=== PATIENT | female | born 1960 | race Caucasian/White ===

== ENCOUNTER 2016-03-16 21:14 | Emergency (ER) | payer OTHER ==
[~2016-03-16] VITALS: Ht 157.5 cm; Wt 168.9 kg
[~2016-03-16 21:14] MED LIST: AMLO5TAB2 PO; ASPI-110 PO; ATEN50TA PO; ATOR1TAB18 PO; BENA20TA PO; CALC0.5C6 PO; CALC668T PO; CALCTAB75 PO; FLUO1TAB3 PO; HYDR-3583 PO; LANTUS2P SQ; LEVO-171 PO; NOVOLOGP2 SQ; TIZA4TAB PO
[2016-03-16 21:18] VITALS: BP 121/56; PULSE 62; RESP 20; TEMP 97.9; O2SAT 99
--- NOTE | 2016-03-16 21:56 | PD ---
HPI Chief Complaint: Abnormal Results Time Seen by Provider: 21:26 Travel History International Travel<30 days: No Contact w/Intl Traveler<30days: No Traveled to known affect area: No History of Present Illness HPI Patient is a 55-year-old female with history of end-stage renal disease on HD, DM, hyperlipidemia, htn, was sent to ER by the [facility] dialysis for blood transfusion. Patient's hemoglobin today at dialysis was 6.4, patient reports that her hemoglobin has been dropping and she is unsure why her hemoglobin is so low. Patient reports that she has been anemic all her life, reports that she cannot tolerate by mouth iron, patient cannot tell me if she is iron deficient anemia. Patient denies having any dark stools. Pt reports that she has an appointment with car conditioner on March 27, 2016 for workup of her anemia - patient reports increased frustration as she cannot get an appointment earlier. Patient reports that she has been anemic all her life, reports that she has never had a blood transfusion in the past. Patient reports that for the past few weeks, she has been increasingly tired. Patient denies chest pain or shortness of breath at this time. Patient's crane operator cab is Dr. Fiona Jimenez Pt receives dialysis , and saturdays via her permacath. Patient reports that she did receive dialysis today, patient here for blood transfusion. Hemoglobin on 03/16/16: 6.2 Hemoglobin on 03/02/16: 7.5 Hemoglobin on 16: 7.3 Hemoglobin on 01/27/2016: 7.5 Hemoglobin on 01/23/2016: 8.3 Hemoglobin on 01/17/14: 10.4 PFSH Past Medical History Arthritis: Yes Autoimmune Disease: No Heart Rhythm Problems: No Cancer: No Cardiac Catheterization: Yes Cardiovascular Problems: Yes (STENT) High Cholesterol: Yes Chemotherapy: No Chest Pain: Yes Congestive Heart Failure: Yes Diabetes: Yes Diminished Hearing: No Endocrine: Yes Gastrointestinal Disorders: No (LAP BAND) Genitourinary: No Hepatitis: No Hiatal Hernia: No Hypertension: Yes Immune Disorder: No Implanted Vascular Access Dvce: Yes Musculoskeletal: Yes (SPINAL STENOSIS; ARTHRITIS) Neurologic: No Psychiatric: No Reproductive: No Respiratory: Yes ("SLIGHT" SLEEP APNEA - NO CPAP ) Immunizations Current: No Radiation Therapy: No Renal Failure: Yes (STAGE 3) Sickle Cell Disease: No Sleep Apnea: Yes Thyroid Disease: Yes (HYPOTHYROIDISM) Triglycerides - High: Yes Menopausal: Yes Past Surgical History Abdominal Surgery: Yes (LAP BAND 2004; LAP JOAN) AICD: No Body Medical Devices: LAB BAND; CARDIAC STENT X 1, DIALYSIS CATHETER RIGHT Cardiac Surgery: No Section: Yes Cholecystectomy: Yes (1996) Coronary Stent: Yes (x1 June 2012) Ear Surgery: No Endocrine Surgery: No Eye Surgery: No Genitourinary Surgery: No Gynecologic Surgery: Yes (C SECTION 1992; D&C) Joint Replacement: No Oral Surgery: Yes (T&A) Pacemaker: No Thoracic Surgery: No Tonsillectomy: Yes Other Surgery: Yes (LAP BAND) Social History Alcohol Use: No Tobacco Use: No Substance Use: No Allergies-Medications (Allergen,Severity, Reaction): Coded Allergies: Biaxin (Verified Allergy, Severe, swelling of face, 03/16/16) Iron (Verified Adverse Reaction, Severe, Constipation, 03/16/16) Reported Meds & Prescriptions Reported Meds & Active Scripts Active Reported Lortab (Hydrocodone-Acetaminophen) 10-325 Mg Tab 1 Tab PO Q6H PRN Slow Fe ER (Ferrous Sulfate) 142 Mg Tab 324 Mg PO DAILY Meclizine (Meclizine HCl) 25 Mg Tab 25 Mg PO TID PRN Calcium Citrate +D (Calcium Citrate-Vitamin D) 315-250 Mg-Unit Tab 1 Tab PO BID Aspirin 81 (Aspirin) 81 Mg Tabdr 81 Mg PO DAILY Tizanidine (Tizanidine HCl) 4 Mg Tab 4 Mg PO TID PRN Calcium Acetate 668 Mg Tab 2 Tab PO WITH MEALS Lantus Inj (Insulin Glargine) 1,000 Unit/10 Ml Vial 30-40 Units SQ BID Novolog Inj (Insulin Aspart) 1,000 Unit/10 Ml Vial 20-35 Units SQ TIDAC Sliding Scale as directed. Levothyroxine (Levothyroxine Sodium) 300 Mcg Tab 300 Mcg PO DAILY Fluoxetine (Fluoxetine HCl) 20 Mg Tab 20 Mg PO DAILY Calcitriol 0.5 Mcg Cap 0.5 Mcg PO DAILY Benazepril (Benazepril HCl) 20 Mg Tab 20 Mg PO BID Atorvastatin (Atorvastatin Calcium) 80 Mg Tab 80 Mg PO HS Atenolol 50 Mg Tab 50 Mg PO BID Amlodipine (Amlodipine Besylate) 5 Mg Tab 5 Mg PO BID Review of Systems General / Constitutional: No: Fever Eyes: No: Visual changes HENT: No: Headaches Cardiovascular: No: Chest Pain or Discomfort Respiratory: No: Shortness of Breath Gastrointestinal: No: Abdominal Pain Genitourinary: No: Dysuria Musculoskeletal: No: Pain Skin: No Rash Neurologic: Positive: Weakness Psychiatric: No: Depression Endocrine: No: Polydipsia Hematologic/Lymphatic: No: Easy Bruising Physical Exam Narrative GENERAL: Morbidly obese female, nontoxic, no acute distress SKIN: Warm and dry. HEAD: Atraumatic. Normocephalic. EYES: Pupils equal and round. No scleral icterus. No injection or drainage. ENT: No nasal bleeding or discharge. Mucous membranes pink and moist. NECK: Trachea midline. No JVD. CARDIOVASCULAR: Regular rate and rhythm. No murmur appreciated. Patient with right-sided permacath in place RESPIRATORY: No accessory muscle use. Clear to auscultation. Breath sounds equal bilaterally. GASTROINTESTINAL: Abdomen soft, non-tender, nondistended. Hepatic and splenic margins not palpable. MUSCULOSKELETAL: No obvious deformities. No clubbing. No cyanosis. No edema. NEUROLOGICAL: Awake and alert. No obvious cranial nerve deficits. Motor grossly within normal limits. Normal speech. PSYCHIATRIC: Appropriate mood and affect; insight and judgment normal. Data Data Last Documented VS Vital Signs Date Time Temp Pulse Resp B/P Pulse Ox O2 Delivery O2 Flow Rate FiO2 03/16/16 22:56 22 100 Room Air 03/16/16 21:18 97.9 62 121/56 Orders Complete Blood Count With Diff (03/16/16 21:41) Prothrombin Time / Inr (Pt) (03/16/16 21:41) Act Partial Throm Time (Ptt) (03/16/16 21:41) Type And Screen (03/16/16 21:41) Iv Access Insert/Monitor (03/16/16 21:41) Ecg Monitoring (03/16/16 21:41) Oximetry (03/16/16 21:41) Vitamin B12 (03/16/16 21:45) Folate, Serum (03/16/16 21:45) Ferritin (03/16/16 21:45) Iron/Tibc Profile (03/16/16 21:45) Retic Count (03/16/16 21:45) Ldh Serum (03/16/16 21:45) Basic Metabolic Panel (Bmp) (03/16/16 22:30) Red Blood Cells (Rbc) (03/16/16 23:20) Blood Product Administration .UPON TRANSFUSION (03/16/16 23:20) Labs Laboratory Tests Test 03/16/16 22:30 White Blood Count 11.8 TH/MM3 Red Blood Count 2.80 MIL/MM3 Hemoglobin 6.3 GM/DL Hematocrit 19.9 % Mean Corpuscular Volume 71.2 FL Mean Corpuscular Hemoglobin 22.6 PG Mean Corpuscular Hemoglobin 31.8 % Concent Red Cell Distribution Width 18.8 % Platelet Count 452 TH/MM3 Mean Platelet Volume 7.4 FL Neutrophils (%) (Auto) 83.9 % Lymphocytes (%) (Auto) 9.3 % Monocytes (%) (Auto) 3.7 % Eosinophils (%) (Auto) 2.2 % Basophils (%) (Auto) 0.9 % Neutrophils # (Auto) 9.9 TH/MM3 Lymphocytes # (Auto) 1.1 TH/MM3 Monocytes # (Auto) 0.4 TH/MM3 Eosinophils # (Auto) 0.3 TH/MM3 Basophils # (Auto) 0.1 TH/MM3 CBC Comment AUTO DIFF Differential Comment AUTO DIFF CONFIRMED Platelet Estimate HIGH Platelet Morphology Comment NORMAL Basophilic Stippling FAINT Acanthocytes OCC Reticulocyte Count 2.0 % Absolute Reticulocyte Count 55.7 MIL/L Prothrombin Time 11.8 SEC Prothromb Time International 1.1 RATIO Ratio Activated Partial 32.2 SEC Thromboplast Time Sodium Level 136 MEQ/L Potassium Level 3.6 MEQ/L Chloride Level 98 MEQ/L Carbon Dioxide Level 29.7 MEQ/L Anion Gap 8 MEQ/L Blood Urea Nitrogen 20 MG/DL Creatinine 3.32 MG/DL Estimat Glomerular Filtration 14 ML/MIN Rate Random Glucose 188 MG/DL Calcium Level 9.0 MG/DL Iron Level 34 MCG/DL Total Iron Binding Capacity 297 MCG/DL Percent Iron Saturation 11.5 % Ferritin 185 NG/ML Lactate Dehydrogenase 245 U/L Vitamin B12 Level 571 PG/ML Folate 7.2 NG/ML Blood Type O POSITIVE Antibody Screen NEGATIVE MDM Medical Decision Making Medical Screen Exam Complete: Yes Emergency Medical Condition: Yes Interpretation(s) Vital Signs Date Time Temp Pulse Resp B/P Pulse Ox O2 Delivery O2 Flow Rate FiO2 03/16/16 22:56 22 100 Room Air 03/16/16 21:18 97.9 62 20 121/56 99 Room Air Laboratory Tests Test 03/16/16 22:30 White Blood Count 11.8 TH/MM3 (4.0-11.0) Red Blood Count 2.80 MIL/MM3 (4.00-5.30) Hemoglobin 6.3 GM/DL (11.6-15.3) Hematocrit 19.9 % (35.0-46.0) Mean Corpuscular Volume 71.2 FL (80.0-100.0) Mean Corpuscular Hemoglobin 22.6 PG (27.0-34.0) Mean Corpuscular Hemoglobin 31.8 % Concent (32.0-36.0) Red Cell Distribution Width 18.8 % (11.6-17.2) Platelet Count 452 TH/MM3 (150-450) Mean Platelet Volume 7.4 FL (7.0-11.0) Neutrophils (%) (Auto) 83.9 % (16.0-70.0) Lymphocytes (%) (Auto) 9.3 % (9.0-44.0) Monocytes (%) (Auto) 3.7 % (0.0-8.0) Eosinophils (%) (Auto) 2.2 % (0.0-4.0) Basophils (%) (Auto) 0.9 % (0.0-2.0) Neutrophils # (Auto) 9.9 TH/MM3 (1.8-7.7) Lymphocytes # (Auto) 1.1 TH/MM3 (1.0-4.8) Monocytes # (Auto) 0.4 TH/MM3 (0-0.9) Eosinophils # (Auto) 0.3 TH/MM3 (0-0.4) Basophils # (Auto) 0.1 TH/MM3 (0-0.2) CBC Comment AUTO DIFF Reticulocyte Count 2.0 % (0.4-3.0) Absolute Reticulocyte Count 55.7 MIL/L (20.0-150.0) Differential Diagnosis symptomatic anemia, gi bleed Narrative Course 55-year-old female with end-stage renal disease on hemodialysis, presents to emergency room with complaints of low hemoglobin. Patient was sent to the emergency room for blood transfusion as hemoglobin 6.4. Patient reports that her blood count has been persistently low and she is waiting for hematology consult. Patient was sent here by her crane operator cab for blood products. Patient with no other complaints. Anemia labs drawn, CBC, BMP drawn as well, patient was typed and screened. Plan to transfuse if hemoglobin is 6.4 HGB 6.3 will transfuse and discharge patient after blood transfusion, patient is scheduled to see a car conditioner on March 26, she will receive formal workup there. Patient will bring her discharge paperwork as well as a lab work too her appointment for follow-up (please note: patient refuses rectal exam) - pt reports that 3 years ago, she had a colonscopy and egd for workup of anemia and reports "they didn't find anything" Diagnosis Primary Impression: Symptomatic anemia Patient Instructions: General Instructions Additional Instructions: please provide patient with copy of her labs at discharge Please follow-up with your crane operator cab as well as car conditioner as outpatient Return to ER as needed Please bring a copy of your lab work to your doctor's office for follow up on all studies and findings from today Disposition: 01 DISCHARGE HOME Condition: Stable Lillian Wright DO Mar 16, 2016 21:56
[2016-03-16] MEDS ORDERED: SLOW142T PO (21:58)
[2016-03-16] MEDS ORDERED: MECL-62 PO (21:58)
[2016-03-16 22:56] VITALS: RESP 22; O2SAT 100
[2016-03-16 23:04] LABS: AUTOMATED NEUTROPHIL # 9.9 TH/MM3 (1.8-7.7); BASOPHIL # 0.1 TH/MM3 (0-0.2); BASOPHIL % 0.9 % (0.0-2.0); EOSINOPHIL # 0.3 TH/MM3 (0-0.4); EOSINOPHIL % 2.2 % (0.0-4.0); LYMPH % 9.3 % (9.0-44.0); LYMPHOCYTE # 1.1 TH/MM3 (1.0-4.8); MEAN CELL VOLUME 71.2 FL (80.0-100.0); MEAN CORPUSCULAR HEMOGLOBIN 22.6 PG (27.0-34.0); MEAN CORPUSCULAR HGB CONC 31.8 % (32.0-36.0); MONO % 3.7 % (0.0-8.0); NEUT % 83.9 % (16.0-70.0); PLATELET COUNT 452 TH/MM3 (150-450); RED CELL DISTRIBUTION WIDTH 18.8 % (11.6-17.2); WHITE BLOOD COUNT 11.8 TH/MM3 (4.0-11.0)
[2016-03-16 23:18] LABS: HEMATOCRIT 19.9 % (35.0-46.0); HEMO FLAGS AUTO DIFF
[2016-03-16 23:20] LABS: REVIEW FLAG FINAL
[2016-03-16 23:24] LABS: APTT (PATIENT) 32.2 SEC (24.3-30.1); INTERNATIONAL NORMALIZED RATIO 1.1 RATIO; PROTHROMBIN TIME - PATIENT 11.8 SEC (9.8-11.6)
[2016-03-16 23:50] LABS: ANION GAP 8 MEQ/L (5-15); BICARBONATE 29.7 MEQ/L (21.0-32.0); BLOOD UREA NITROGEN 20 MG/DL (7-18); CHLORIDE 98 MEQ/L (98-107); FERRITIN 185 NG/ML (8-252); GLOMERULAR FILTRATION RATE 14 ML/MIN (>89); LDH SERUM 245 U/L (84-246); POTASSIUM 3.6 MEQ/L (3.5-5.1); SODIUM (NA) 136 MEQ/L (136-145); TRANSFERRIN IRON PROFILE 212 MG/DL (200-360)
[2016-03-16 23:56] LABS: ACANTHOCYTES OCC (NORMAL); PLATELET ESTIMATE SMEAR HIGH (NORMAL); PLATELET MORPHOLOGY NORMAL (NORMAL); SCAN/DIFF AUTO DIFF CONFIRMED
[2016-03-16] MEDS ORDERED: HYDR-3535 PO (23:58)
[2016-03-17 01:35] VITALS: BP 141/60; PULSE 56; RESP 20; TEMP 98.3; O2SAT 99
[2016-03-17 01:50] VITALS: BP 136/62; PULSE 55; RESP 20; O2SAT 99
[2016-03-17 03:31] VITALS: BP 135/62; PULSE 58; RESP 20; O2SAT 98
[2016-04-05] MEDS ORDERED: EPOG1000 (09:23)
[2016-04-05] MEDS ORDERED: DESI40OI2 TOP (09:52)
[2016-04-05] MEDS ORDERED: DAKINSHST TOPICAL (09:52)
[2016-04-10] MEDS ORDERED: AMPI500C8 PO (11:22)
[2016-04-10] MEDS ORDERED: LEVA750T PO (11:23)
[2016-04-12] MEDS ORDERED: [UNRECOGNIZED DRUG - CODE] TOPICAL (10:13)
[2016-04-12] MEDS ORDERED: GENT0.1C TOPICAL (10:13)
[2016-04-12] MEDS ORDERED: ZINC1CRE3 TOPICAL (10:19)
[2016-04-26] MEDS ORDERED: DAKINSFST TOPICAL (10:10)
[2016-05-10] MEDS ORDERED: GABA100C4 PO (09:45)
[2016-05-10] MEDS ORDERED: DAKINSFST TOPICAL (10:39)
[2016-05-10] MEDS ORDERED: [UNRECOGNIZED DRUG - OTHER] TOP (10:40)
== END 2016-03-17 04:24 | disposition home or self-care (01) ==
LOC: NEPE 21:14
DX: D64.9 Anemia, unspecified (principal); I12.0 Hypertensive chronic kidney disease with stage 5 chronic kidney disease or end stage renal disease; Z99.2 Dependence on renal dialysis; N18.6 End stage renal disease; I50.9 Heart failure, unspecified; E03.9 Hypothyroidism, unspecified; E11.9 Type 2 diabetes mellitus without complications; Z79.4 Long term (current) use of insulin
CPT/HCPCS: 36430; 80048; 82607; 82728; 82746; 83540; 83550; 83615; 85025; 85044; 85610; 85730; 86850; 86900; 86901; 86920; 86922; 99284; P9016

== ENCOUNTER 2016-04-18 10:49 | Observation (INO) | payer MEDICARE, OTHER ==
[~2016-04-18] VITALS: Ht 160 cm; Wt 120.0 kg
[~2016-04-18 10:49] MED LIST changes: +AMPI500C8 PO; -CALC668T PO; -CALCTAB75 PO; +DAKINSHST TOPICAL; +DESI40OI2 TOP; +EPOG1000; +GENT0.1C TOPICAL; +HYDR-3535 PO; -HYDR-3583 PO; +LEVA750T PO; +ZINC1CRE3 TOPICAL; +[UNRECOGNIZED DRUG - CODE] TOPICAL
[2016-04-18 10:55] VITALS: BP 149/65; PULSE 66; RESP 25; TEMP 98.4; O2SAT 98
[2016-04-18 11:00] VITALS: O2SAT 99
--- NOTE | 2016-04-18 11:11 | PD ---
HPI . Shortness of breath Chief Complaint: Respiratory Symptoms Time Seen by Provider: 10:55 Travel History International Travel<30 days: No Contact w/Intl Traveler<30days: No History of Present Illness HPI The patient presents with a several day history of shortness of breath. She attributes her symptoms to a "cold." She reports associated fever, cough, sputum production and nausea with dry heaves. However, she has missed her last 5 dialysis appointments. She states that she has not been to dialysis because she was having such difficulty breathing. In addition to her respiratory complaints, the patient has a wound on her abdominal wall that is being cared for by the wound care clinic. She is currently on Levaquin for this. She states that they are reluctant to do a debridement my because her hemoglobin is less than 7. She reports that she is unable to tolerate iron. PFSH Past Medical History Arthritis: Yes Autoimmune Disease: No Heart Rhythm Problems: No Cancer: No Cardiac Catheterization: Yes Cardiovascular Problems: Yes (STENT) High Cholesterol: Yes Chemotherapy: No Chest Pain: Yes Congestive Heart Failure: Yes Diabetes: Yes Dialysis: Yes (,,) Diminished Hearing: No Endocrine: Yes Genitourinary: No Hepatitis: No Hiatal Hernia: No Hypertension: Yes Immune Disorder: No Implanted Vascular Access Dvce: Yes Musculoskeletal: Yes (SPINAL STENOSIS; ARTHRITIS) Neurologic: No Psychiatric: No Reproductive: No Respiratory: Yes ("SLIGHT" SLEEP APNEA - NO CPAP ) Radiation Therapy: No Renal Failure: Yes (HD) Sickle Cell Disease: No Sleep Apnea: Yes Thyroid Disease: Yes (HYPOTHYROIDISM) Triglycerides - High: Yes Menopausal: Yes : 1 Para: 1 Past Surgical History Abdominal Surgery: Yes (LAP BAND 2004; LAP JOAN) AICD: No Body Medical Devices: LAB BAND; CARDIAC STENT X 1, DIALYSIS CATHETER RIGHT Cardiac Surgery: No Section: Yes (X 1) Cholecystectomy: Yes (1996) Coronary Stent: Yes (x1 June 2012) Ear Surgery: No Endocrine Surgery: No Eye Surgery: No Genitourinary Surgery: No Gynecologic Surgery: Yes (C SECTION 1992; D&C) Joint Replacement: No Neurologic Surgery: No Oral Surgery: Yes (T&A) Pacemaker: No Thoracic Surgery: No Tonsillectomy: Yes Other Surgery: Yes (LAP BAND, VAS CATH) Social History Alcohol Use: No Tobacco Use: No Substance Use: No Allergies-Medications (Allergen,Severity, Reaction): Coded Allergies: Biaxin (Verified Allergy, Severe, swelling of face, 04/12/16) Iron (Verified Adverse Reaction, Severe, Constipation, 04/12/16) Reported Meds & Prescriptions Reported Meds & Active Scripts Active Levaquin (Levofloxacin) 750 Mg Tab 750 Mg PO Q48H Ampicillin 500 Mg Cap 500 Mg PO QID Reported Meclizine (Meclizine HCl) 25 Mg Tab 25 Mg PO TID PRN Lortab (Hydrocodone-Acetaminophen) 10-325 Mg Tab 1 Tab PO Q6H PRN Aspirin 81 (Aspirin) 81 Mg Tabdr 81 Mg PO DAILY Tizanidine (Tizanidine HCl) 4 Mg Tab 4 Mg PO TID PRN Novolog Inj (Insulin Aspart) 1,000 Unit/10 Ml Vial 30 Units SQ TID Sliding Scale as directed. Levothyroxine (Levothyroxine Sodium) 300 Mcg Tab 300 Mcg PO DAILY Fluoxetine (Fluoxetine HCl) 20 Mg Tab 20 Mg PO DAILY Calcitriol 0.5 Mcg Cap 0.5 Mcg PO DAILY Benazepril (Benazepril HCl) 20 Mg Tab 20 Mg PO BID Atorvastatin (Atorvastatin Calcium) 80 Mg Tab 80 Mg PO HS Atenolol 50 Mg Tab 50 Mg PO BID Amlodipine (Amlodipine Besylate) 5 Mg Tab 5 Mg PO BID Review of Systems Except as stated in HPI: all other systems reviewed are Neg General / Constitutional: Positive: Fever, Chills Respiratory: Positive: Cough, Shortness of Breath, Other (purulent sputum) Skin: Positive Lesions Physical Exam Narrative GENERAL: This is a hugely obese woman who is unable to get into the bed because of her size. She is sitting in a chair. SKIN: Warm and dry. I am unable to visualize her abdominal wall wound because it is covered up. Her legs have thickened, scaly skin. HEAD: Atraumatic. Normocephalic. EYES: Pupils equal and round. ENT: No nasal bleeding or discharge. Mucous membranes pink and moist. NECK: Trachea midline. Neck is supple. CARDIOVASCULAR: Regular rate and rhythm. Heart sounds are normal. RESPIRATORY: No accessory muscle use. Her lungs sound clear with good air movement throughout. GASTROINTESTINAL: Hugely obese. Unable to further evaluate. MUSCULOSKELETAL: No obvious deformities. Her arms and legs are huge. She has skin changes consistent with chronic peripheral vascular disease. NEUROLOGICAL: Awake and alert. No obvious cranial nerve deficits. Motor grossly within normal limits. Normal speech. PSYCHIATRIC: Appropriate mood and affect; insight and judgment are poor--she has skipped dialysis the last 5 times because of shortness of breath. Data Data Last Documented VS Vital Signs Date Time Temp Pulse Resp B/P Pulse Ox O2 Delivery O2 Flow Rate FiO2 04/18/16 11:00 99 Room Air 04/18/16 11:00 25 04/18/16 10:55 98.4 66 149/65 Orders Complete Blood Count With Diff (04/18/16 11:02) Comprehensive Metabolic Panel (04/18/16 11:02) Ckmb (Isoenzyme) Profile (04/18/16 11:02) Troponin I (04/18/16 11:02) Iv Access Insert/Monitor (04/18/16 11:02) Electrocardiogram (04/18/16 11:02) Ecg Monitoring (04/18/16 11:02) Oximetry (04/18/16 11:02) Oxygen Administration (04/18/16 11:02) Chest, Single Ap (04/18/16 11:02) Sodium Chloride 0.9% Flush (Ns Flush) (04/18/16 11:15) Type And Screen (04/18/16 13:02) Red Blood Cells (Rbc) (04/18/16 13:02) Blood Product Administration .UPON TRANSFUSION (04/18/16 13:02) Sodium Chlor 0.9% 250 Ml Inj (Ns 250 Ml (04/18/16 13:15) Diphenhydramine (Benadryl) (04/18/16 13:15) Acetaminophen (Tylenol) (04/18/16 13:15) Admit To Inpatient (04/18/16 ) Code Status (04/18/16 13:24) Vital Signs (Adult) Q4H (04/18/16 13:24) Activity Oob With Assistance (04/18/16 13:24) Diet 1800 Ada Cons Carb (04/18/16 Lunch) Sodium Chloride 0.9% Flush (Ns Flush) (04/18/16 13:30) Sodium Chloride 0.9% Flush (Ns Flush) (04/18/16 21:00) Acetaminophen (Tylenol) (04/18/16 13:30) Ondansetron Inj (Zofran Inj) (04/18/16 13:30) Comprehensive Metabolic Panel (04/19/16 06:00) Complete Blood Count With Diff (04/19/16 06:00) Scd Bilateral/Knee High KAROLINA.BID (04/18/16 13:24) Yonathan Bilateral/Knee High KAROLINA.QSHIFT (04/18/16 13:24) Acetaminophen (Tylenol) (04/18/16 13:30) Naloxone Inj (Narcan Inj) (04/18/16 13:30) Inpatient Certification (04/18/16 ) Bedside Glucose KAROLINA.AC&HS (04/18/16 13:24) ^ Blood Glucose Goal (Criteria (04/18/16 13:24) ^ Hypoglycemia 51 - 69 Mg/Dl (04/18/16 13:24) ^ Hypoglycemia 50 Mg/Dl Or < (04/18/16 13:24) ^ Notify Dr: Other (04/18/16 13:24) Dextrose 50% In Vandana (Vial) Inj (D50w (Vi (04/18/16 13:30) Glucagon Inj (Glucagon Inj) (04/18/16 13:30) Insulin Aspart Supplemtl Scale (Novolog (04/18/16 16:00) Consult Nephrology (04/18/16 ) Admit Order (Ed Use Only) (04/18/16 13:26) Labs Laboratory Tests Test 04/18/16 11:25 White Blood Count 15.5 TH/MM3 Red Blood Count 2.77 MIL/MM3 Hemoglobin 6.0 GM/DL Hematocrit 19.9 % Mean Corpuscular Volume 71.6 FL Mean Corpuscular Hemoglobin 21.6 PG Mean Corpuscular Hemoglobin 30.1 % Concent Red Cell Distribution Width 19.4 % Platelet Count 492 TH/MM3 Mean Platelet Volume 6.9 FL Neutrophils (%) (Auto) 91.6 % Lymphocytes (%) (Auto) 4.3 % Monocytes (%) (Auto) 3.7 % Eosinophils (%) (Auto) 0.2 % Basophils (%) (Auto) 0.2 % Neutrophils # (Auto) 14.2 TH/MM3 Lymphocytes # (Auto) 0.7 TH/MM3 Monocytes # (Auto) 0.6 TH/MM3 Eosinophils # (Auto) 0.0 TH/MM3 Basophils # (Auto) 0.0 TH/MM3 CBC Comment AUTO DIFF Differential Comment AUTO DIFF CONFIRMED Platelet Estimate HIGH Platelet Morphology Comment NORMAL Sodium Level 131 MEQ/L Potassium Level 4.8 MEQ/L Chloride Level 97 MEQ/L Carbon Dioxide Level 17.4 MEQ/L Anion Gap 17 MEQ/L Blood Urea Nitrogen 65 MG/DL Creatinine 6.94 MG/DL Estimat Glomerular Filtration 6 ML/MIN Rate Random Glucose 209 MG/DL Calcium Level 7.9 MG/DL Total Bilirubin 0.4 MG/DL Aspartate Amino Transf 14 U/L (AST/SGOT) Alanine Aminotransferase 15 U/L (ALT/SGPT) Alkaline Phosphatase 116 U/L Total Creatine Kinase 27 U/L Troponin I LESS THAN 0.02 NG/ML Total Protein 8.1 GM/DL Albumin 2.0 GM/DL [facility] Medical Decision Making Medical Screen Exam Complete: Yes Emergency Medical Condition: Yes Medical Record Reviewed: Yes Interpretation(s) EKG shows a sinus rhythm with a right bundle branch block. It is unchanged from previous. Differential Diagnosis Differential diagnosis of dyspnea includes but is not limited to congestive heart failure, pneumonia, wheezing, pneumothorax, pulmonary embolism Narrative Course Patient presents for evaluation of shortness of breath. She believes that she has cold symptoms. However, she is a renal dialysis patient who has missed her last 5 appointments. Her respiratory rate is 25 with room air sats of 98%. She is afebrile here. CXR: (which was independently viewed by me) FINDINGS: A single view of the chest demonstrates the lungs to be symmetrically aerated without evidence of mass, confluent infiltrate or effusion. There is a right- sided double lumen central venous line in place. The cardiomediastinal contours are unremarkable. Osseous structures are intact. CBC & BMP Diagram 04/18/16 11:25 She has known anemia and is followed by hematology for same. I called Dr. Jimenez, who is her sock examiner, to discuss possible transfusion. He would like for me to go ahead and transfuse 2 units. That has been ordered. He will arrange for the patient to go to dialysis. Physician Communication Physician Communication Dr. Jimenez Diagnosis Primary Impression: Dyspnea Qualified Code: R06.00 - Dyspnea, unspecified type Additional Impressions: Symptomatic anemia End stage renal disease on dialysis Admitting Information Admitting Physician Requests: Observation Condition: Stable Carola Lamar MD Apr 18, 2016 11:11
[2016-04-18] MEDS ORDERED: SODIUM CHLORIDE 0.9% FLUSH 5 ML FLUSH IVF PRN ×2 (11:15→17:00)
--- NOTE | 2016-04-18 11:33 | RADRPT ---
EXAM DATE/TIME: 04/18/2016 11:03 [facility] COMPARISON: CHEST SINGLE AP, January 17, 2014, 18:32. INDICATIONS : Cough. MEDICAL HISTORY : Hypertension. Diabetes mellitus type II. SURGICAL HISTORY : Dialysis catheter ENCOUNTER: Initial ACUITY: 3 days PAIN SCORE: 0/10 LOCATION: Bilateral chest FINDINGS: A single view of the chest demonstrates the lungs to be symmetrically aerated without evidence of mas s, confluent infiltrate or effusion. There is a right-sided double lumen central venous line in place . The cardiomediastinal contours are unremarkable. Osseous structures are intact. CONCLUSION: No definite evidence of pneumonia. Jacoby Jj MD on April 18, 2016 at 11:30 Board Certified Radiologist. This report was verified electronically.
[2016-04-18 11:54] LABS: AUTOMATED NEUTROPHIL # 14.2 TH/MM3 (1.8-7.7); BASOPHIL % 0.2 % (0.0-2.0); EOSINOPHIL % 0.2 % (0.0-4.0); LYMPH % 4.3 % (9.0-44.0); LYMPHOCYTE # 0.7 TH/MM3 (1.0-4.8); MEAN CELL VOLUME 71.6 FL (80.0-100.0); MEAN CORPUSCULAR HEMOGLOBIN 21.6 PG (27.0-34.0); MEAN CORPUSCULAR HGB CONC 30.1 % (32.0-36.0); MONO % 3.7 % (0.0-8.0); NEUT % 91.6 % (16.0-70.0); PLATELET COUNT 492 TH/MM3 (150-450); RED BLOOD COUNT 2.77 MIL/MM3 (4.00-5.30); RED CELL DISTRIBUTION WIDTH 19.4 % (11.6-17.2); WHITE BLOOD COUNT 15.5 TH/MM3 (4.0-11.0)
[2016-04-18 11:57] LABS: HEMO FLAGS AUTO DIFF
[2016-04-18] MEDS ORDERED: MECL-62 PO (11:58)
[2016-04-18 12:02] LABS: HEMATOCRIT 19.9 % (35.0-46.0)
[2016-04-18 12:09] LABS: ALT (GPT) 15 U/L (10-53); AST (GOT) 14 U/L (15-37); BICARBONATE 17.4 MEQ/L (21.0-32.0); BLOOD UREA NITROGEN 65 MG/DL (7-18); CHLORIDE 97 MEQ/L (98-107); GLOMERULAR FILTRATION RATE 6 ML/MIN (>89); POTASSIUM 4.8 MEQ/L (3.5-5.1); SODIUM (NA) 131 MEQ/L (136-145)
[2016-04-18 12:10] LABS: ANION GAP 17 MEQ/L (5-15)
[2016-04-18 12:14] LABS: ALKALINE PHOSPHATASE 116 U/L (45-117); TOTAL BILIRUBIN ADULT 0.4 MG/DL (0.2-1.0)
[2016-04-18 12:17] LABS: CREATINE KINASE 27 U/L (26-192)
[2016-04-18 12:39] LABS: PLATELET ESTIMATE SMEAR HIGH (NORMAL); PLATELET MORPHOLOGY NORMAL (NORMAL); SCAN/DIFF AUTO DIFF CONFIRMED
[2016-04-18] MEDS ORDERED: ACETAMINOPHEN 325 MG TAB PO ONE (13:15)
[2016-04-18] MEDS ORDERED: diphenhydrAMINE HCL 25 MG CAP PO ONE (13:15)
[2016-04-18] MEDS ORDERED: SODIUM CHLOR 0.9% 250 ML INJ 250 ML IV ONE (13:15)
[2016-04-18] MEDS ORDERED: SODIUM CHLORIDE 0.9% FLUSH 5 ML FLUSH FLUSH PRN (13:30)
[2016-04-18] MEDS ORDERED: ACETAMINOPHEN 325 MG TAB PO PRN ×3 (13:30→17:00)
[2016-04-18] MEDS ORDERED: NALOXONE HCL 0.4 MG/ML AMP IV PRN (13:30)
[2016-04-18] MEDS ORDERED: ONDANSETRON HCL 4 MG/2 ML VIAL IVP PRN (13:30)
[2016-04-18] MEDS ORDERED: GLUCAGON 1 MG/ML VIAL OTHER PRN (13:30)
[2016-04-18] MEDS ORDERED: DEXTROSE 50% IN WATER 50 ML VIAL(D50) IV PUSH PRN (13:30)
[2016-04-18 14:09] VITALS: BP 138/80; PULSE 68; RESP 20; O2SAT 99
[2016-04-18] MEDS: INSULIN ASPART SUPPLEMENTAL SCALE SQ SCH ×3 (16:00→23:24)
[2016-04-18] MEDS ORDERED: SODIUM CHLOR 0.9% 1000 ML INJ 1,000 ML IV PRN ×3 (16:53)
[2016-04-18] MEDS ORDERED: cloNIDine HCL 0.1 MG TAB PO PRN (17:00)
[2016-04-18] MEDS ORDERED: HEPARIN SODIUM - IV 10,000 UNITS/10 ML VIAL IVF PRN (17:00)
[2016-04-18] MEDS ORDERED: MANNITOL 12.5 GM/50 ML VIAL IV PRN (17:00)
[2016-04-18] MEDS ORDERED: NITROGLYCERIN 0.4 MG SL 25 TABS/BTL SL PRN (17:00)
[2016-04-18] MEDS ORDERED: diphenhydrAMINE HCL 25 MG CAP PO PRN (17:00)
[2016-04-18] MEDS ORDERED: ALBUMIN HUMAN 25% 25 GM/100 ML BAGP IV PRN (17:00)
[2016-04-18] MEDS ORDERED: GELATIN 12 MM/7 MM FOAM TOP PRN (17:00)
[2016-04-18] MEDS ORDERED: GENTAMICIN SULFATE (DIALYSIS USE ONLY) 20 MG/2 ML VIAL IV PRN (17:00)
[2016-04-18] MEDS ORDERED: EPOETIN ALFA 10,000 UNITS/ML VIAL IV PRN (17:00)
[2016-04-18] MEDS ORDERED: ONDANSETRON HCL 4 MG/2 ML VIAL IV PRN (17:00)
[2016-04-18] MEDS ORDERED: HEPARIN SODIUM - IV 10,000 UNITS/10 ML VIAL PRN (17:00)
--- NOTE | 2016-04-18 18:25 | HHI.HP ---
[facility] Service [place] [facility] Primary Care Physician Aline Velarde MD Admission Diagnosis ANEMIA Diagnoses: (1) End stage renal disease on dialysis (2) Hypertension, benign (3) Chronic stasis dermatitis (4) Symptomatic anemia (5) Anemia in chronic kidney disease (CKD) Chief Complaint: Weakness, shortness of breath, anemia Travel History International Travel<30 Days: No Contact w/Intl Traveler <30 Da: No Traveled to Known Affected Are: No History of Present Illness 55-year-old female with a history of end-stage renal disease on hemodialysis presented to the ED for evaluation of several day history of shortness of breath and weakness as well as missing dialysis 5 times. Patient states, he was recently treated for upper respiratory infections with antibiotic and wasn't able to complete hemodialysis. He reported febrile episode along with cough production. No symptoms improved however within the past 24 hours patient was having significant dry heaves and decided to come to hospital. she was found to have severely depressed hemoglobin and worsening renal function. She denies any GI bleed, hemoptysis or hematuria. She does have abdominal wall wound for which she's been seen at wound care clinic and she is currently on Levaquin. Review of Systems Other 12 systems reviewed and are negative except for the one mentioned in the history of present illness Past Family Social History Past Medical History Arthritis: Yes Autoimmune Disease: No Heart Rhythm Problems: No Cancer: No Cardiac Catheterization: Yes Cardiovascular Problems: Yes (STENT) High Cholesterol: Yes Chemotherapy: No Chest Pain: Yes Congestive Heart Failure: Yes Diabetes: Yes Dialysis: Yes (,,S) Diminished Hearing: No Endocrine: Yes Genitourinary: No Hepatitis: No Hiatal Hernia: No Hypertension: Yes Immune Disorder: No Implanted Vascular Access Dvce: Yes Musculoskeletal: Yes (SPINAL STENOSIS; ARTHRITIS) Neurologic: No Psychiatric: No Reproductive: No Respiratory: Yes ("SLIGHT" SLEEP APNEA - NO CPAP ) Radiation Therapy: No Renal Failure: Yes (HD) Sickle Cell Disease: No Sleep Apnea: Yes Thyroid Disease: Yes (HYPOTHYROIDISM) Triglycerides - High: Yes Menopausal: Yes : 1 Para: 1 Past Surgical History Abdominal Surgery: Yes (LAP BAND 2004; LAP JOAN) Body Medical Devices: LAB BAND; CARDIAC STENT X 1, DIALYSIS CATHETER RIGHT Section: Yes (X 1) Cholecystectomy: Yes (1996) Coronary Stent: Yes (x1 June 2012) Gynecologic Surgery: Yes (C SECTION 1992; D&C) Oral Surgery: Yes (T&A) Tonsillectomy: Yes Other Surgery: Yes (LAP BAND, VAS CATH) Reported Medications Levaquin (Levofloxacin) 750 Mg Tab 750 Mg PO Q48H Ampicillin 500 Mg Cap 500 Mg PO QID Reported Meclizine (Meclizine HCl) 25 Mg Tab 25 Mg PO TID PRN Lortab (Hydrocodone-Acetaminophen) 10-325 Mg Tab 1 Tab PO Q6H PRN Aspirin 81 (Aspirin) 81 Mg Tabdr 81 Mg PO DAILY Tizanidine (Tizanidine HCl) 4 Mg Tab 4 Mg PO TID PRN Novolog Inj (Insulin Aspart) 1,000 Unit/10 Ml Vial 30 Units SQ TID Sliding Scale as directed. Levothyroxine (Levothyroxine Sodium) 300 Mcg Tab 300 Mcg PO DAILY Fluoxetine (Fluoxetine HCl) 20 Mg Tab 20 Mg PO DAILY Calcitriol 0.5 Mcg Cap 0.5 Mcg PO DAILY Benazepril (Benazepril HCl) 20 Mg Tab 20 Mg PO BID Atorvastatin (Atorvastatin Calcium) 80 Mg Tab 80 Mg PO HS Atenolol 50 Mg Tab 50 Mg PO BID Amlodipine (Amlodipine Besylate) 5 Mg Tab 5 Mg PO BID Allergies: Coded Allergies: Biaxin (Verified Allergy, Severe, swelling of face, 04/12/16) Iron (Verified Adverse Reaction, Severe, Constipation, 04/12/16) Family History father had diabetes, hypertension and hyperlipidemia Moderate hat hyperlipidemia Social History Alcohol Use: No Tobacco Use: No Substance Use: No Physical Exam Vital Signs Vital Signs Date Time Temp Pulse Resp B/P Pulse Ox O2 Delivery O2 Flow Rate FiO2 04/18/16 14:09 68 20 138/80 99 Nasal Cannula 2 04/18/16 11:00 99 Room Air 04/18/16 11:00 99 Room Air 04/18/16 11:00 25 99 Room Air 04/18/16 10:55 98.4 66 25 149/65 98 Physical Exam GENERAL: This is a well-nourished, well-developed obese patient, in no apparent distress. SKIN: Chronic venous stasis to lower extremities; right lower quadrant abdominal wound HEAD: Atraumatic. Normocephalic. No temporal or scalp tenderness. EYES: Pupils equal round and reactive. Extraocular motions intact. No scleral icterus. No injection or drainage. ENT: Nose without bleeding, purulent drainage or septal hematoma. Throat without erythema, tonsillar hypertrophy or exudate. Uvula midline. Airway patent. NECK: Trachea midline. No JVD or lymphadenopathy. Supple, nontender, no meningeal signs. CARDIOVASCULAR: Regular rate and rhythm without murmurs, gallops, or rubs. RESPIRATORY: Clear to auscultation. Breath sounds equal bilaterally. No wheezes , rales, or rhonchi. GASTROINTESTINAL: Abdomen soft, non-tender, nondistended. No hepato-splenomegaly , or palpable masses. No guarding. MUSCULOSKELETAL: Extremities without clubbing, cyanosis, or edema. No joint tenderness, effusion, or edema noted. No calf tenderness. Negative Homans sign bilaterally. NEUROLOGICAL: Awake and alert. Cranial nerves II through XII intact. Motor and sensory grossly within normal limits. Five out of 5 muscle strength in all muscle groups. Normal speech. Laboratory Laboratory Tests Test 04/18/16 04/18/16 11:25 14:17 White Blood Count 15.5 Red Blood Count 2.77 Hemoglobin 6.0 Hematocrit 19.9 Mean Corpuscular Volume 71.6 Mean Corpuscular Hemoglobin 21.6 Mean Corpuscular Hemoglobin 30.1 Concent Red Cell Distribution Width 19.4 Platelet Count 492 Mean Platelet Volume 6.9 Neutrophils (%) (Auto) 91.6 Lymphocytes (%) (Auto) 4.3 Monocytes (%) (Auto) 3.7 Eosinophils (%) (Auto) 0.2 Basophils (%) (Auto) 0.2 Neutrophils # (Auto) 14.2 Lymphocytes # (Auto) 0.7 Monocytes # (Auto) 0.6 Eosinophils # (Auto) 0.0 Basophils # (Auto) 0.0 CBC Comment AUTO DIFF Differential Comment AUTO DIFF CONFIRMED Platelet Estimate HIGH Platelet Morphology Comment NORMAL Sodium Level 131 Potassium Level 4.8 Chloride Level 97 Carbon Dioxide Level 17.4 Anion Gap 17 Blood Urea Nitrogen 65 Creatinine 6.94 Estimat Glomerular Filtration 6 Rate Random Glucose 209 Calcium Level 7.9 Total Bilirubin 0.4 Aspartate Amino Transf 14 (AST/SGOT) Alanine Aminotransferase 15 (ALT/SGPT) Alkaline Phosphatase 116 Total Creatine Kinase 27 Troponin I LESS THAN 0.02 Total Protein 8.1 Albumin 2.0 Blood Type O POSITIVE Antibody Screen NEGATIVE Crossmatch Leukocyte-Reduced Red Blood Cells Blood Bank Comment Result Diagram: 04/18/16 1125 04/18/16 1125 Imaging Last Impressions Chest X-Ray 04/18/16 1102 Signed Impressions: Service Date/Time: April 11:03 - CONCLUSION: No definite evidence of pneumonia. Jacoby Jj MD Assessment and Plan Problem List: (1) End stage renal disease on dialysis ICD Code: N18.6 Status: Acute (2) Anemia in chronic kidney disease (CKD) ICD Code: N18.9 Status: Acute (3) Symptomatic anemia ICD Code: D64.9 Status: Acute (4) Hypertension, benign ICD Code: I10 Status: Acute (5) Chronic stasis dermatitis ICD Code: I83.10 Status: Acute Assessment and Plan 55-year-old female with 1-End-stage renal disease on hemodialysis: Nephrology has been consulted and plan for hemodialysis per protocol. 2-Symptomatic anemia/anemia of chronic kidney disease: Transfuse 2 units packed red blood cells during HD, monitor H&H. Outpatient follow-up will hematology over will check Hemoccult 3-Abdominal wall wound: Resume Levaquin, consult wound care nurse 4-Hypertension, hyperlipidemia: Resume outpatient medications 5-Diabetes type 2: Check hemoglobin A1c, start sliding scale insulin Code Status Full code Discussed Condition With Patient, ED physician Physician Certification 2 Midnight Certification Type: Admission for Inpatient Services Order for Inpatient Services The services are ordered in accordance with Medicare regulations or non- Medicare payer requirements, as applicable. In the case of services not specified as inpatient-only, they are appropriately provided as inpatient services in accordance with the 2-midnight benchmark. Estimated LOS (days): 2 days is the estimated time the patient will need to remain in the hospital, assuming treatment plan goals are met and no additional complications. Post-Hospital Plan: Not yet determined Brenton Villafuerte MD Apr 18, 2016 18:25
[2016-04-18] MEDS ORDERED: LEVOFLOXACIN 750 MG TAB PO SCH (18:30)
--- NOTE | 2016-04-18 18:47 | MB ---
cc: ANJUM MIKE MD DATE OF CONSULTATION 04/18/16 REASON FOR CONSULTATION End-stage renal disease on hemodialysis for management. HISTORY OF PRESENT ILLNESS This is a 55-year-old female known to me from before with past medical history of hypertension, morbid obesity, end-stage renal disease on hemodialysis, history of chronic anemia, diabetes mellitus, hyperlipidemia, hypothyroidism. He was brought to the hospital because of generalized weakness and shortness of breath. I was called to see the patient for the management of dialysis. The patient has been on hemodialysis Friday, and Friday, but she missed her treatment for almost one week now because she was feeling symptoms of shortness of breath with cough and she thought that she had infection. She had some fever at home, reported 101 last night according to the patient. She denies any nausea or vomiting, but her appetite is not very good. She has a history of chronic anemia and has low iron saturation and has been refusing iron but recently started on very low-dose after she was seen by Dr. Daniels, hematology, for anemia. She has been getting Neupogen. There is no acute bleeding, but she has been getting blood transfusion intermittently. Now she came with very low hemoglobin. PAST MEDICAL HISTORY 1. Hypertension, 2. Diabetes mellitus, 3. Morbid obesity, 4. End-stage renal disease on hemodialysis, 5. Chronic anemia, 6. Hyperlipidemia. PAST SURGICAL HISTORY 1. History of A-V fistula surgery. 2. Cardiac catheterization with stenting in June of 2012 REVIEW OF SYSTEMS The patient has history of fever at home. She has generalized weakness, feeling tired. She has shortness of breath which has been gradually getting worse, more on exertion, has cough with whitish sputum. No chest pain. No palpitation. She does not have any nausea or vomiting, but she has decreased appetite, not eating very well. She missed her treatment for almost one week now for dialysis as she has been feeling sick. SOCIAL HISTORY Past history of smoking. There is no history of alcoholism. FAMILY HISTORY Noncontributory. ALLERGIES BIAXIN IRON MEDICATIONS Currently 1. Dextrose saline 100 an hour. 2. Insulin sliding scale PHYSICAL EXAMINATION GENERAL: The patient is awake, alert. She is currently on hemodialysis. VITAL SIGNS: Last blood pressure is 138/80, temperature 98.4, oxygen saturation on 2 liters nasal cannula 99%. HEENT: Pupils equally reacting to light. Nonicteric sclerae. Conjunctivae pale. NECK: Supple. JVD is slightly elevated. LUNGS: The patient has bilateral decreased air entry with basilar rales and scattered wheezing. HEART: S1, S2 regular rhythm. ABDOMEN: Obese, soft, lax. There is a dressing in the right lower abdomen. EXTREMITIES: In both extremities she has lymphedema with dryness and scaling of the skin and the legs. LABORATORY DATA WBC count is 15.5, hemoglobin 6.0, platelet count 492, neutrophils 91.6%. Sodium 131, potassium 4.8, chloride 97, bicarb 17.4, BUN 65, creatinine 6.9, glucose 209, calcium 7.9. Last iron saturation about a month ago was 11.5. AST is 14, ALT is 15, creatinine kinase 27, albumin is 2.0, INR is 1.1. Urinalysis showing proteinuria but this is old. IMAGING STUDIES The patient had chest x-ray done which shows no definite infiltrate. ASSESSMENT/PLAN 1. Severe anemia. 2. End-stage renal disease on hemodialysis with some uremia. 3. History of hypertension 4. Morbid obesity. 5. Diabetes mellitus The patient has severe anemia. Part of this is iron-deficiency. There is no active bleeding and currently she is getting hemodialysis and getting transfusion with that. We keep on giving her the epogen. She has been now getting low-dose iron with dialysis once a week, so we will continue that and follow the hemoglobin and transfuse as needed. She has a history of low grade fever at home so will observe it here. So far she is afebrile although there is some leukocytosis. If she spikes fever, then she will need more workup for that. I also discussed with the patient about compliance with her dialysis treatment. I will check the phosphorus in the morning. Her calcium is low, but her albumin is also low. Thank you for the consultation. I will follow the patient while she is in the hospital. MD NILSON Faulkner/ /4:50 PM /6:20 PM
[2016-04-18 19:19] VITALS: BP 139/62; PULSE 66; RESP 15; O2SAT 100
[2016-04-18] MEDS ORDERED: ATORVASTATIN 80 MG TAB PO SCH (21:00)
[2016-04-18] MEDS ORDERED: SODIUM CHLORIDE 0.9% FLUSH 5 ML FLUSH FLUSH SCH (21:00)
[2016-04-18] MEDS: amLODIPine BESYLATE 5 MG TAB PO SCH (22:05)
[2016-04-18] MEDS: LISINOPRIL 20 MG TAB PO SCH (22:06)
[2016-04-18] MEDS: ATENOLOL 50 MG TAB PO SCH (22:06)
[2016-04-19] MEDS ORDERED: LEVOTHYROXINE SODIUM 150 MCG TAB PO SCH (06:00)
[2016-04-19] MEDS: INSULIN ASPART SUPPLEMENTAL SCALE SQ SCH ×2 (06:17→12:40)
[2016-04-19 08:00] VITALS: BP 126/49; PULSE 56; RESP 20; TEMP 98.1; O2SAT 100
--- NOTE | 2016-04-19 08:11 | HHI.PR ---
Subjective Remarks Follow-up iron deficiency anemia/anemia of chronic kidney disease/noncompliance with hemodialysis 04/19/16-patient seen and examined, no acute event overnight. Currently afebrile. Had HD yesterday and was also transfused 2 units packed red blood cell however BMP and CBC pending this morning. She would like to be discharged home. States wound care dressing done by her son at home Objective Vitals Vital Signs Date Time Temp Pulse Resp B/P Pulse Ox O2 Delivery O2 Flow Rate FiO2 04/19/16 08:00 98.1 56 20 126/49 100 04/18/16 19:51 21 04/18/16 19:19 66 15 100 Room Air 04/18/16 19:19 66 15 139/62 100 Room Air 04/18/16 14:09 68 20 138/80 99 Nasal Cannula 2 04/18/16 11:00 99 Room Air 04/18/16 11:00 99 Room Air 04/18/16 11:00 25 99 Room Air 04/18/16 10:55 98.4 66 25 149/65 98 I/O 04/18/16 04/18/16 04/18/16 04/19/16 04/19/16 04/19/16 07:00 15:00 23:00 07:00 15:00 23:00 Output Total 4000 ml Balance -4000 ml Output Hemodialysis 4000 ml # Voids 1 Result Diagram: 04/18/16 1125 04/18/16 1125 Imaging Last Impressions Chest X-Ray 04/18/16 1102 Signed Impressions: Service Date/Time: April 11:03 - CONCLUSION: No definite evidence of pneumonia. Jacoby Jj MD Objective Remarks GENERAL: NAd SKIN: Chronic venous stasis HEAD: Normocephalic. EYES: No scleral icterus. No injection or drainage. NECK: Supple, trachea midline. No JVD or lymphadenopathy. CARDIOVASCULAR: Regular rate and rhythm without murmurs, gallops, or rubs. RESPIRATORY: Breath sounds equal bilaterally. No accessory muscle use. GASTROINTESTINAL: Abdomen soft, non-tender, nondistended. Lower quadrant abdominal wall wound covered with dressing MUSCULOSKELETAL: No cyanosis, or edema. BACK: Nontender without obvious deformity. No CVA tenderness. A/P Problem List: (1) End stage renal disease on dialysis ICD Code: N18.6 Status: Chronic (2) Anemia in chronic kidney disease (CKD) ICD Code: N18.9 Status: Acute (3) Symptomatic anemia ICD Code: D64.9 Status: Acute (4) Hypertension, benign ICD Code: I10 Status: Chronic (5) Chronic stasis dermatitis ICD Code: I83.10 Status: Chronic Assessment and Plan 55-year-old female with 1-End-stage renal disease on hemodialysis: Nephrology has been consulted and patient had hemodialysis per protocol yesterday 04/18/16.Will start Renvela to manage Hyper Phos 2-Symptomatic anemia/anemia of chronic kidney disease: Transfused 2 units packed red blood cells during HD on 04/18/16, monitor H&H. Continue with iron therapy as patient has a component of iron deficiency anemia. Outpatient follow- up with hematology . 3-Abdominal wall wound: continue Levaquin, 4-Hypertension, hyperlipidemia: Continue outpatient medications 5-Diabetes type 2: hemoglobin A1c pending, on sliding scale insulin with FSBG monitoring Patient condition improved since admission therefore she will be discharge home Discharge Planning Discharge patient to home Condition on discharge: Improved ADA Diet as tolerated Ad Yanet activity Rx written:Renvela Follow-up with primary care physician in 1 week Nephrology on 04/20/16 for HD Brenton Villafuerte MD Apr 19, 2016 08:10
[2016-04-19] MEDS: LISINOPRIL 20 MG TAB PO SCH (08:51)
[2016-04-19] MEDS: ATENOLOL 50 MG TAB PO SCH (08:51)
[2016-04-19] MEDS: amLODIPine BESYLATE 5 MG TAB PO SCH (08:51)
[2016-04-19 08:52] VITALS: O2SAT 100
[2016-04-19] MEDS ORDERED: INSULIN ASPART 1,000 UNITS/10 ML VIAL SQ SCH (09:00)
[2016-04-19] MEDS ORDERED: CALCITRIOL 0.25 MCG CAP PO SCH (09:00)
[2016-04-19] MEDS ORDERED: ASPIRIN EC 81 MG TABEC PO SCH (09:00)
[2016-04-19] MEDS ORDERED: FLUoxetine HCL 20 MG CAP PO SCH (09:00)
[2016-04-19 09:41] LABS: AUTOMATED NEUTROPHIL # 12.4 TH/MM3 (1.8-7.7); BASOPHIL % 0.3 % (0.0-2.0); EOSINOPHIL # 0.1 TH/MM3 (0-0.4); LYMPH % 9.4 % (9.0-44.0); LYMPHOCYTE # 1.4 TH/MM3 (1.0-4.8); MEAN CORPUSCULAR HEMOGLOBIN 22.5 PG (27.0-34.0); MEAN CORPUSCULAR HGB CONC 31.3 % (32.0-36.0); MONO % 4.5 % (0.0-8.0); NEUT % 84.8 % (16.0-70.0); PLATELET COUNT 567 TH/MM3 (150-450); RED BLOOD COUNT 3.47 MIL/MM3 (4.00-5.30); RED CELL DISTRIBUTION WIDTH 19.1 % (11.6-17.2); WHITE BLOOD COUNT 14.6 TH/MM3 (4.0-11.0)
[2016-04-19 09:44] LABS: HEMO FLAGS AUTO DIFF
[2016-04-19 10:28] LABS: ALKALINE PHOSPHATASE 135 U/L (45-117); ALT (GPT) 15 U/L (10-53); ANION GAP 13 MEQ/L (5-15); AST (GOT) 18 U/L (15-37); BICARBONATE 26.2 MEQ/L (21.0-32.0); BLOOD UREA NITROGEN 45 MG/DL (7-18); CHLORIDE 95 MEQ/L (98-107); GLOMERULAR FILTRATION RATE 8 ML/MIN (>89); POTASSIUM 3.6 MEQ/L (3.5-5.1); SODIUM (NA) 134 MEQ/L (136-145); TOTAL BILIRUBIN ADULT 0.4 MG/DL (0.2-1.0)
[2016-04-19 10:46] LABS: SCAN/DIFF AUTO DIFF CONFIRMED
[2016-04-19] MEDS ORDERED: LEVOFLOXACIN 750 MG TAB PO ONE (11:00)
[2016-04-19] MEDS ORDERED: SEVEL800 PO (11:07)
[2016-04-19 11:53] LABS: HEMOGLOBIN A1a 2.2 %; HEMOGLOBIN A1b 3.1 %; HEMOGLOBIN LA1C 3.1 %
--- NOTE | 2016-04-19 12:36 | HHI.NPPN ---
Subjective General Problems: Anemia, Edema, Hypertension Renal Failure: End Stage Renal Disease History of Present Illness 55-year-old female known to me from before with past medical history of hypertension, morbid obesity, end-stage renal disease on hemodialysis, history of chronic anemia, diabetes mellitus, hyperlipidemia, hypothyroidism. He was brought to the hospital because of generalized weakness and shortness of breath. I was called to see the patient for the management of dialysis. The patient has been on hemodialysis Friday, and Friday, but she missed her treatment for almost one week now because she was feeling symptoms of shortness of breath with cough and she thought that she had infection. Additional Remarks Patient is alert, feeling better, not in distress. Review of Systems General Constitutional: Fatigue Respiratory Lungs: SOB, Cough Cardiovascular Cardiac: Edema, GRIFFIN Objective Data Data 04/18/16 04/19/16 19:00 07:00 Output Total 4000 ml Balance -4000 ml Output Hemodialysis 4000 ml # Voids 1 Vital Signs Date Time Temp Pulse Resp B/P Pulse Ox O2 Delivery O2 Flow Rate FiO2 04/19/16 08:52 100 21 04/19/16 08:00 98.1 56 20 126/49 100 04/18/16 19:51 21 04/18/16 19:19 66 15 100 Room Air 04/18/16 19:19 66 15 139/62 100 Room Air 04/18/16 14:09 68 20 138/80 99 Nasal Cannula 2 -: 04/19/16 0822 04/19/16 0822 Microbiology 04/18/16 Influenza Types A,B Antigen (AKOSUA) - Final, Complete NEGATIVE FOR FLU A AND B ANTIGEN.... Physical Exam General Appearance: No Acute Distress, Comfortable Eyes Eye Exam: Pupils Equal Throat Throat Exam: Oral Mucosa Armorel & Moist Neck Neck Exam: Neck Supple Pulmonary Resp Exam: Breath Sounds Equal, No Distress, Rhonchi, Decreased Bases, Diminished Breath Sounds Cardiology CV Exam: Regular, Normal Sinus Rhythm Extremeties Extremities Exam: Trace Edema Neurologic Neuro Exam: Alert, Awake, Oriented Psychiatric Psych Exam: Appropriate Responses Assessment/Plan Assessment Summary: Fluid/Volume Overload, Hypertension, End Stage Renal Disease Problem List: (1) Anemia in chronic kidney disease (CKD) (2) Hypertension, benign (3) Symptomatic anemia (4) Dyspnea (5) End stage kidney disease Plan Patient is feeling better. BP is stable. Hgb. is 7.8. HD done yesterday. Now for D/C home. Told to be compliant with HD. Follow Hgb. Problem Qualifiers (1) Dyspnea: Qualified Code: R06.00 - Dyspnea, unspecified type Valentin Jimenez MD Apr 19, 2016 12:36
--- NOTE | 2016-04-19 18:01 | EKG ---
Date Performed: 04/18/2016 Time Performed: 11:22:15 PTAGE: 55 years EKG: Sinus rhythm INDETERMINATE AXIS RIGHT BUNDLE BRANCH BLOCK When compared to previous tracing, no significant freed e. ABNORMAL ECG PREVIOUS TRACING : 01/23/2015 07.01 DOCTOR: Mode Little Interpretating Date/Time 04/19/2016 17:58:57
[2016-04-21] MEDS ORDERED: LEVOFLOXACIN 500 MG TAB PO SCH (11:00)
[2016-04-26] MEDS ORDERED: DAKINSFST TOPICAL (10:10)
[2016-05-10] MEDS ORDERED: GABA100C4 PO (09:45)
[2016-05-10] MEDS ORDERED: DAKINSFST TOPICAL (10:39)
[2016-05-10] MEDS ORDERED: [UNRECOGNIZED DRUG - OTHER] TOP (10:40)
== END 2016-04-19 13:46 | disposition home or self-care (01) ==
LOC: NEPE 10:49 → INTOOBSV 13:29 → NEDA 13:29 → UNDOADMOB 13:29 → OBSVTOIN 13:29 → NEDA 16:12 → NEDH 19:42 → NEDA 19:42 → NEPGCP 22:32 → NEDH 22:32 → UNDODISIN 04-19 13:46 → UNDODISOB 04-19 13:46
PROVIDERS: ADMIT Hospitalist; ATTEND Hospitalist
DX: R06.00 Dyspnea, unspecified (principal); I13.2 Hypertensive heart and chronic kidney disease with heart failure and with stage 5 chronic kidney disease, or end stage renal disease; I50.9 Heart failure, unspecified; N18.6 End stage renal disease; I87.2 Venous insufficiency (chronic) (peripheral); D63.1 Anemia in chronic kidney disease; D64.89 Other specified anemias; E78.00 Pure hypercholesterolemia, unspecified; E11.9 Type 2 diabetes mellitus without complications; M19.90 Unspecified osteoarthritis, unspecified site; G47.30 Sleep apnea, unspecified; Z99.2 Dependence on renal dialysis; Z95.5 Presence of coronary angioplasty implant and graft
CPT/HCPCS: 36430; 71010; 80053; 82550; 82948; 83036; 84100; 84484; 85025; 86850; 86900; 86901; 86920; 86922; 87804; 90935; 93005; 96374; 96375; 99285; G0378; J1580; J1644; J1815; J7030; P9016; Q4081; G0257

== ENCOUNTER 2016-05-14 12:04 | Inpatient (IN) | payer OTHER, MEDICARE ==
[~2016-05-14] VITALS: Ht 175.3 cm; Wt 139.5 kg
[~2016-05-14 12:04] MED LIST changes: -AMPI500C8 PO; +DAKINSFST TOPICAL; -DAKINSHST TOPICAL; -DESI40OI2 TOP; -EPOG1000; +GABA100C4 PO; -GENT0.1C TOPICAL; -LANTUS2P SQ; -LEVA750T PO; +MECL-62 PO; +SEVEL800 PO; -ZINC1CRE3 TOPICAL; -[UNRECOGNIZED DRUG - CODE] TOPICAL; +[UNRECOGNIZED DRUG - OTHER] TOP
[2016-05-14 12:07] VITALS: BP 120/55; PULSE 71; RESP 20; TEMP 98.4; O2SAT 99
--- NOTE | 2016-05-14 12:36 | PD ---
HPI Chief Complaint: Pain: Acute or Chronic Time Seen by Provider: 12:36 Travel History International Travel<30 days: No Contact w/Intl Traveler<30days: No Traveled to known affect area: No History of Present Illness HPI 55-year-old female with a history of hypertension, diabetes, hyperlipidemia, chronic back pain, ESRD on hemodialysis presents to the emergency department for evaluation of worsening abdominal wound. The patient states that she has had this worsening wound for 6 weeks. States that she has been going to wound care and seeing Dr. Madden who has been debriding the wound and she has also had home health care coming to her house to change the dressings. States that her son changes the dressings twice a day and places packing. States that she has been feeling weaker over the past several days and has had increased drainage and pain from the wound. States that last time she was seen by Dr. Madden 4 days ago she was told that she would need this wound surgically debrided and she was scheduled for an outpatient surgery consultation this week. She denies any fever, chills, nausea, vomiting, chest pain, shortness of breath. States that her skin grader is Dr. Jimenez. She has not had dialysis since , 5 days ago, because she states she was feeling so weak at the time. PCP is Dr. Velarde. No other complaints. PFSH Past Medical History Arthritis: Yes Asthma: No Autoimmune Disease: No Blood Disorders: No Heart Rhythm Problems: No Cancer: No Cardiac Catheterization: Yes Cardiovascular Problems: Yes (STENT) High Cholesterol: Yes Chemotherapy: No Chest Pain: Yes Congestive Heart Failure: Yes COPD: No Diabetes: Yes Patient Takes Glucophage: No Dialysis: Yes (,) Diminished Hearing: No Endocrine: Yes Genitourinary: No Hepatitis: No Hiatal Hernia: No Hypertension: Yes Immune Disorder: No Implanted Vascular Access Dvce: Yes Medical other: Yes (LEFT LOWER ARM FISTULA) Musculoskeletal: Yes (SPINAL STENOSIS; ARTHRITIS) Neurologic: No Psychiatric: No Reproductive: No Respiratory: Yes Radiation Therapy: No Renal Failure: Yes (HD) Sickle Cell Disease: No Sleep Apnea: Yes Thyroid Disease: Yes (HYPOTHYROIDISM) Triglycerides - High: Yes Menopausal: Yes : 1 Para: 1 Past Surgical History Abdominal Surgery: Yes (LAP BAND 2004; LAP JOAN) AICD: No Body Medical Devices: LAB BAND; CARDIAC STENT X 1, DIALYSIS CATHETER RIGHT Cardiac Surgery: No Section: Yes (X 1) Cholecystectomy: Yes (1996) Coronary Stent: Yes (x1 June 2012) Ear Surgery: No Endocrine Surgery: No Eye Surgery: No Genitourinary Surgery: No Gynecologic Surgery: Yes (C SECTION 1992; D&C) Joint Replacement: No Neurologic Surgery: No Oral Surgery: Yes (T&A) Pacemaker: No Thoracic Surgery: No Tonsillectomy: Yes Other Surgery: Yes (LAP BAND, VAS CATH) Social History Alcohol Use: No Tobacco Use: No Substance Use: No Allergies-Medications (Allergen,Severity, Reaction): Coded Allergies: Biaxin (Verified Allergy, Severe, swelling of face, 05/10/16) Iron (Verified Adverse Reaction, Severe, Constipation, 05/10/16) Reported Meds & Prescriptions Reported Meds & Active Scripts Active [dakins Full strength] Full strength 1 Applic TOP BID Dakins Solution Full Strength Topical (Sodium Hypochlorite) 0.4-0.5 % Soln 473 Ml TOPICAL BID 30 Days Renvela (Sevelamer Carbonate) 800 Mg Tab 800 Mg PO TID Reported Gabapentin 100 Mg Cap 100 Mg PO BID Meclizine (Meclizine HCl) 25 Mg Tab 25 Mg PO TID PRN Lortab (Hydrocodone-Acetaminophen) 10-325 Mg Tab 1 Tab PO Q6H PRN Aspirin 81 (Aspirin) 81 Mg Tabdr 81 Mg PO DAILY Tizanidine (Tizanidine HCl) 4 Mg Tab 4 Mg PO TID PRN Novolog Inj (Insulin Aspart) 1,000 Unit/10 Ml Vial 30 Units SQ TID Sliding Scale as directed. Levothyroxine (Levothyroxine Sodium) 300 Mcg Tab 300 Mcg PO DAILY Fluoxetine (Fluoxetine HCl) 20 Mg Tab 20 Mg PO DAILY Calcitriol 0.5 Mcg Cap 0.5 Mcg PO DAILY Benazepril (Benazepril HCl) 20 Mg Tab 20 Mg PO BID Atorvastatin (Atorvastatin Calcium) 80 Mg Tab 80 Mg PO HS Atenolol 50 Mg Tab 50 Mg PO BID Amlodipine (Amlodipine Besylate) 5 Mg Tab 5 Mg PO BID Review of Systems Except as stated in HPI: all other systems reviewed are Neg Physical Exam Narrative GENERAL: Morbidly obese female patient in no acute distress. SKIN: Warm and dry. The patient has an open wound to her right lower abdomen/ pannus. The wound is approximately 8 cm in length, 12 cm in width and approximately 4 cm deep. There is exposed adipose tissue with malodorous drainage and surrounding erythema. HEAD: Normocephalic and atraumatic. EYES: No injection, drainage, or hyphema noted. PERRLA. EOMI. ENT: No nasal drainage noted. Oropharynx is clear. NECK: Supple and the trachea is midline. CARDIOVASCULAR: Regular rate and rhythm. RESPIRATORY: Breath sounds are equal bilaterally with no accessory muscle use, wheezing, rhonchi, or crackles. GASTROINTESTINAL: Abdomen is soft, non-tender, and nondistended. MUSCULOSKELETAL: No obvious deformities, swelling, cyanosis, or ecchymosis is present throughout the upper and lower extremities. NEUROLOGICAL: Awake, alert, and oriented. Normal speech and gait. Cranial nerves are grossly intact. Data Data Last Documented VS Vital Signs Date Time Temp Pulse Resp B/P Pulse Ox O2 Delivery O2 Flow Rate FiO2 05/14/16 12:40 99 Room Air 05/14/16 12:35 18 05/14/16 12:07 98.4 71 120/55 Orders Complete Blood Count With Diff (05/14/16 12:34) Comprehensive Metabolic Panel (05/14/16 12:34) Lactic Acid Sepsis Protocol (05/14/16 12:34) Blood Culture (05/14/16 12:34) Wound Culture And Gram Stain (05/14/16 12:34) Blood Glucose (05/14/16 12:34) Ecg Monitoring (05/14/16 12:34) Iv Access Insert/Monitor (05/14/16 12:34) Oximetry (05/14/16 12:34) Oxygen Administration (05/14/16 12:34) Prothrombin Time / Inr (Pt) (05/14/16 12:53) Act Partial Throm Time (Ptt) (05/14/16 12:53) Red Blood Cells (Rbc) (05/14/16 13:10) Blood Product Administration .UPON TRANSFUSION (05/14/16 13:10) Sodium Chlor 0.9% 250 Ml Inj (Ns 250 Ml (05/14/16 13:15) Type And Screen (05/14/16 13:10) Piperacil-Tazo 3.375 Gm Premix (Zosyn 3. (05/14/16 13:45) Vancomycin Inj (Vancomycin Inj) (05/14/16 13:45) Consult General Surgery (05/14/16 ) Vancomycin Inj (Vancomycin Inj) (05/14/16 14:00) Ct Abd/Pel W/O Iv Contrast (05/14/16 ) Consult Nephrology (05/14/16 ) Vascular Access Team Consult PRN (05/14/16 13:58) Labs Laboratory Tests Test 05/14/16 05/14/16 05/14/16 12:47 13:00 13:14 White Blood Count 19.4 TH/MM3 Red Blood Count 2.99 MIL/MM3 Hemoglobin 6.5 GM/DL Hematocrit 21.7 % Mean Corpuscular Volume 72.6 FL Mean Corpuscular Hemoglobin 21.8 PG Mean Corpuscular Hemoglobin 30.1 % Concent Red Cell Distribution Width 20.0 % Platelet Count 612 TH/MM3 Mean Platelet Volume 6.9 FL Neutrophils (%) (Auto) 89.8 % Lymphocytes (%) (Auto) 4.4 % Monocytes (%) (Auto) 5.2 % Eosinophils (%) (Auto) 0.2 % Basophils (%) (Auto) 0.4 % Neutrophils # (Auto) 17.4 TH/MM3 Lymphocytes # (Auto) 0.9 TH/MM3 Monocytes # (Auto) 1.0 TH/MM3 Eosinophils # (Auto) 0.0 TH/MM3 Basophils # (Auto) 0.1 TH/MM3 CBC Comment AUTO DIFF Differential Total Cells 100 Counted Neutrophils % (Manual) 73 % Band Neutrophils % 18 % Lymphocytes % 8 % Monocytes % 1 % Neutrophils # (Manual) 17.7 TH/MM3 Differential Comment FINAL DIFF MANUAL Toxic Vacuolation PRESENT Platelet Estimate HIGH Platelet Morphology Comment NORMAL Acanthocytes OCC Sodium Level 129 MEQ/L Potassium Level 5.5 MEQ/L Chloride Level 92 MEQ/L Carbon Dioxide Level 20.7 MEQ/L Anion Gap 16 MEQ/L Blood Urea Nitrogen 71 MG/DL Creatinine 8.34 MG/DL Estimat Glomerular Filtration 5 ML/MIN Rate Random Glucose 213 MG/DL Lactic Acid Level 2.1 mmol/L Calcium Level 7.9 MG/DL Total Bilirubin 0.5 MG/DL Aspartate Amino Transf 41 U/L (AST/SGOT) Alanine Aminotransferase 19 U/L (ALT/SGPT) Alkaline Phosphatase 190 U/L Total Protein 8.6 GM/DL Albumin 1.9 GM/DL Prothrombin Time 13.1 SEC Prothromb Time International 1.2 RATIO Ratio Activated Partial 39.6 SEC Thromboplast Time Blood Type O POSITIVE Antibody Screen NEGATIVE Crossmatch Leukocyte-Reduced Red Blood Cells Blood Bank Comment MDM Medical Decision Making Medical Screen Exam Complete: Yes Emergency Medical Condition: Yes Differential Diagnosis Sepsis versus cellulitis versus chronic wound Narrative Course 55-year-old female presents to the emergency department for evaluation of large right abdominal/pannus wound. Patient is afebrile, vital signs are stable. This wound is large and deep and will likely need surgical debridement. IV access is obtained, labs been drawn and sent. CBC shows an elevated white blood cell count of 19.4 with 18% band neutrophils. Shows severe anemia with a hemoglobin of 6.5, hematocrit 21.7. Patient has a history of anemia and does not take her iron. CMP shows elevated creatinine, BUN and low GFR consistent with end-stage renal disease. Hyperkalemia with a potassium of 5.5. Hyperglycemia with a glucose of 213. Lactic acid is elevated at 2.1. Coags unremarkable. Patient is administered IV Zosyn and vancomycin. 2 units of red blood cells has been ordered and the patient will be transfused during dialysis. She has remained stable and without complaint while here in the ED. She'll be admitted to the ICU under the medicine team with consultation to general surgery for severe sepsis secondary to abdominal wound. I discussed the case with my attending physician Dr. Burden who is aware of the patients history, physical examination findings, and treatment plan. Physician Communication Physician Communication My attending physician Dr. Burden spoke with Dr. Matias who states he will come to see the patient. I spoke with Dr. Jimenez skin grader who agrees to get patient dialyzed today while receiving her transfusion. I spoke with Dr. Maria [facility] who agrees to admit the patient his service. Diagnosis Primary Impression: Severe sepsis Additional Impressions: Open wound of abdomen Qualified Code: S31.109A - Open wound of abdomen, initial encounter Severe anemia End stage renal disease on dialysis Admitting Information Admitting Physician Requests: Admit Aranza Smith May 14, 2016 12:36
[2016-05-14 12:40] VITALS: O2SAT 99
[2016-05-14 13:02] LABS: AUTOMATED NEUTROPHIL # 17.4 TH/MM3 (1.8-7.7); BASOPHIL # 0.1 TH/MM3 (0-0.2); BASOPHIL % 0.4 % (0.0-2.0); EOSINOPHIL % 0.2 % (0.0-4.0); LYMPH % 4.4 % (9.0-44.0); LYMPHOCYTE # 0.9 TH/MM3 (1.0-4.8); MEAN CELL VOLUME 72.6 FL (80.0-100.0); MEAN CORPUSCULAR HEMOGLOBIN 21.8 PG (27.0-34.0); MEAN CORPUSCULAR HGB CONC 30.1 % (32.0-36.0); MONO % 5.2 % (0.0-8.0); NEUT % 89.8 % (16.0-70.0); PLATELET COUNT 612 TH/MM3 (150-450); RED BLOOD COUNT 2.99 MIL/MM3 (4.00-5.30); WHITE BLOOD COUNT 19.4 TH/MM3 (4.0-11.0)
[2016-05-14 13:05] LABS: HEMO FLAGS AUTO DIFF
[2016-05-14 13:08] LABS: HEMATOCRIT 21.7 % (35.0-46.0)
[2016-05-14] MEDS ORDERED: SODIUM CHLOR 0.9% 250 ML INJ 250 ML IV ONE (13:15)
[2016-05-14 13:28] LABS: ANION GAP 16 MEQ/L (5-15); AST (GOT) 41 U/L (15-37); BICARBONATE 20.7 MEQ/L (21.0-32.0); BLOOD UREA NITROGEN 71 MG/DL (7-18); CHLORIDE 92 MEQ/L (98-107); GLOMERULAR FILTRATION RATE 5 ML/MIN (>89); POTASSIUM 5.5 MEQ/L (3.5-5.1); SODIUM (NA) 129 MEQ/L (136-145)
[2016-05-14 13:28] LABS: APTT (PATIENT) 39.6 SEC (24.3-30.1); INTERNATIONAL NORMALIZED RATIO 1.2 RATIO; PROTHROMBIN TIME - PATIENT 13.1 SEC (9.8-11.6)
[2016-05-14 13:31] LABS: ALKALINE PHOSPHATASE 190 U/L (45-117); ALT (GPT) 19 U/L (10-53); TOTAL BILIRUBIN ADULT 0.5 MG/DL (0.2-1.0)
[2016-05-14 13:35] LABS: BANDS 18 % (0-6); NEUTROPHIL # MANUAL DIFF 17.7 TH/MM3 (1.8-7.7); POLYS (SEG NEUTROPHILS) 73 % (16-70); WBC DIFF SAMPLE 100
[2016-05-14 13:36] LABS: PLATELET ESTIMATE SMEAR HIGH (NORMAL)
[2016-05-14 13:37] LABS: PLATELET MORPHOLOGY NORMAL (NORMAL)
[2016-05-14 13:38] LABS: TOXIC VACUOLATION PRESENT (NONE SEEN)
[2016-05-14 13:39] LABS: ACANTHOCYTES OCC (NORMAL); SCAN/DIFF FINAL DIFF MANUAL
[2016-05-14] MEDS ORDERED: PIPERACIL-TAZO 3.375 GM PREMIX 50 ML IV ONE (13:45)
[2016-05-14] MEDS ORDERED: VANCOMYCIN INJ 1,000 MG in SODIUM CHLOR 0.9% 250 ML INJ 250 ML IV ONE (13:45)
[2016-05-14] MEDS ORDERED: VANCOMYCIN INJ 1,750 MG in SODIUM CHLORID 0.9% 500 ML INJ 500 ML IV ONE (14:00)
[2016-05-14] MEDS ORDERED: MECLIZINE HCL 25 MG TAB PO PRN (14:15)
[2016-05-14] MEDS ORDERED: SODIUM CHLORIDE 0.9% FLUSH 5 ML FLUSH FLUSH PRN (14:30)
[2016-05-14] MEDS ORDERED: METOCLOPRAMIDE HCL 10 MG/2 ML VIAL IV PUSH PRN (14:30)
[2016-05-14] MEDS ORDERED: BISACODYL 10 MG SUPP PR PRN (14:30)
--- NOTE | 2016-05-14 14:36 | HHI.HP ---
[facility] Aline Velarde MD Admission Diagnosis Severe Sepsis, Abdominal Wound, Severe Anemia, ESRD on HD Diagnoses: Chief Complaint: Chronic pannus wound worsening condition Travel History International Travel<30 Days: No Contact w/Intl Traveler <30 Da: No Traveled to Known Affected Are: No History of Present Illness This is a pleasant 55 y/o Female who came to Emergency room as we know she has Hypertension DM II, Hyperlipidemia, Chronic back pain, ESRD on Friday, and Friday , presents to the emergency department for evaluation of worsening abdominal wound. The wound worsened for the last six weeks, she has Wound care by Doctor Madden who performed I and D, on multiple opportunities, has wound care twice a day with packing in place, is been feeling weaker, increased drainage and Pain from the wound, as per Doctor Madden recommended Surgical management for Surgical debridement, She denies any fever, chills, nausea, vomiting, chest pain , shortness of breath. States that her bonding agent is Dr. Jimenez. She has not had dialysis since , 5 days ago, because she states she was feeling so weak at the time. PCP is Dr. Velarde. seen in Emergency room in the presence of her Son and Mr. Zamudio, status post evaluation by General auto radiator specialist Doctor Silverio Matias, he is looking for another surgeon with expertise in this kind of Pathology. Past Family Social History Past Medical History OA CAD status post Cardiac Catheterization and stent placement Hyperlipidemia CHF DM II ESRD on Hemodialysis T Hypertension Left lower arm fistula Spinal stenosis REESE Hypothyroidism. Past Surgical History Lap Band 2004, Laparoscopic Cholecystectomy 1996 PCI and stent placement June 2012 Dialysis Catheter placement on right C Section x 1 Reported Medications Reported Meds & Active Scripts Active [dakins Full strength] Full strength 1 Applic TOP BID Dakins Solution Full Strength Topical (Sodium Hypochlorite) 0.4-0.5 % Soln 473 Ml TOPICAL BID 30 Days Renvela (Sevelamer Carbonate) 800 Mg Tab 800 Mg PO TID Reported Gabapentin 100 Mg Cap 100 Mg PO BID Meclizine (Meclizine HCl) 25 Mg Tab 25 Mg PO TID PRN Lortab (Hydrocodone-Acetaminophen) 10-325 Mg Tab 1 Tab PO Q6H PRN Aspirin 81 (Aspirin) 81 Mg Tabdr 81 Mg PO DAILY Tizanidine (Tizanidine HCl) 4 Mg Tab 4 Mg PO TID PRN Novolog Inj (Insulin Aspart) 1,000 Unit/10 Ml Vial 30 Units SQ TID Sliding Scale as directed. Levothyroxine (Levothyroxine Sodium) 300 Mcg Tab 300 Mcg PO DAILY Fluoxetine (Fluoxetine HCl) 20 Mg Tab 20 Mg PO DAILY Calcitriol 0.5 Mcg Cap 0.5 Mcg PO DAILY Benazepril (Benazepril HCl) 20 Mg Tab 20 Mg PO BID Atorvastatin (Atorvastatin Calcium) 80 Mg Tab 80 Mg PO HS Atenolol 50 Mg Tab 50 Mg PO BID Amlodipine (Amlodipine Besylate) 5 Mg Tab 5 Mg PO BID Allergies: Coded Allergies: Biaxin (Verified Allergy, Severe, swelling of face, 05/10/16) Iron (Verified Adverse Reaction, Severe, Constipation, 05/10/16) Active Ordered Medications Current Medications Medications (Trade) Dose Ordered Sig/Soren Route Start Time Stop Time Status Last Admin Sodium Chloride 250 ml @ 15 mls/hr ONCE ONCE IV 05/14/16 13:15 05/15/16 05:54 Piperacillin Sod/ Tazobactam Sod 50 ml @ 100 mls/hr ONCE ONCE IV 05/14/16 13:45 05/14/16 14:14 05/14/16 13:56 (Vancomycin Inj/ NS 500 ml Inj) 517.5 ml @ 258.75 mls/ hr ONCE ONCE IV 05/14/16 14:00 05/14/16 15:59 Family History Denied by patient. Social History Lives with her and son Denies any toxic habit Physical Exam Vital Signs Vital Signs Date Time Temp Pulse Resp B/P Pulse Ox O2 Delivery O2 Flow Rate FiO2 05/14/16 12:40 99 Room Air 05/14/16 12:40 99 Room Air 05/14/16 12:35 18 05/14/16 12:07 98.4 71 20 120/55 99 Physical Exam GENERAL: Morbidly obese female patient in no acute distress. SKIN: Warm and dry. The patient has an open wound to her right lower abdomen/ pannus. The wound is approximately 8 cm in length, 12 cm in width and approximately 4 cm deep. There is exposed adipose tissue with malodorous drainage and surrounding erythema. HEAD: Normocephalic and atraumatic. EYES: No injection, drainage, or hyphema noted. PERRLA. EOMI. ENT: No nasal drainage noted. Oropharynx is clear. NECK: Supple and the trachea is midline. CARDIOVASCULAR: Regular rate and rhythm. RESPIRATORY: Breath sounds are equal bilaterally with no accessory muscle use, wheezing, rhonchi, or crackles. GASTROINTESTINAL: Abdomen is soft, non-tender, and nondistended. MUSCULOSKELETAL: No obvious deformities, swelling, cyanosis, or ecchymosis is present throughout the upper and lower extremities. NEUROLOGICAL: Awake, alert, and oriented. Normal speech and gait. Cranial nerves are grossly intact. Laboratory Laboratory Tests Test 05/14/16 05/14/16 05/14/16 12:47 13:00 13:14 White Blood Count 19.4 Red Blood Count 2.99 Hemoglobin 6.5 Hematocrit 21.7 Mean Corpuscular Volume 72.6 Mean Corpuscular Hemoglobin 21.8 Mean Corpuscular Hemoglobin 30.1 Concent Red Cell Distribution Width 20.0 Platelet Count 612 Mean Platelet Volume 6.9 Neutrophils (%) (Auto) 89.8 Lymphocytes (%) (Auto) 4.4 Monocytes (%) (Auto) 5.2 Eosinophils (%) (Auto) 0.2 Basophils (%) (Auto) 0.4 Neutrophils # (Auto) 17.4 Lymphocytes # (Auto) 0.9 Monocytes # (Auto) 1.0 Eosinophils # (Auto) 0.0 Basophils # (Auto) 0.1 CBC Comment AUTO DIFF Differential Total Cells 100 Counted Neutrophils % (Manual) 73 Band Neutrophils % 18 Lymphocytes % 8 Monocytes % 1 Neutrophils # (Manual) 17.7 Differential Comment FINAL DIFF MANUAL Toxic Vacuolation PRESENT Platelet Estimate HIGH Platelet Morphology Comment NORMAL Acanthocytes OCC Sodium Level 129 Potassium Level 5.5 Chloride Level 92 Carbon Dioxide Level 20.7 Anion Gap 16 Blood Urea Nitrogen 71 Creatinine 8.34 Estimat Glomerular Filtration 5 Rate Random Glucose 213 Lactic Acid Level 2.1 Calcium Level 7.9 Total Bilirubin 0.5 Aspartate Amino Transf 41 (AST/SGOT) Alanine Aminotransferase 19 (ALT/SGPT) Alkaline Phosphatase 190 Total Protein 8.6 Albumin 1.9 Prothrombin Time 13.1 Prothromb Time International 1.2 Ratio Activated Partial 39.6 Thromboplast Time Blood Type O POSITIVE Antibody Screen NEGATIVE Crossmatch Leukocyte-Reduced Red Blood Cells Blood Bank Comment Date/Time Procedure Status Source Growth 05/14/16 12:45 Aerobic Blood Culture Received Blood Peripheral Pending 05/14/16 12:45 Anaerobic Blood Culture Received Blood Peripheral Pending 05/14/16 12:40 Gram Stain Received Wound Abdomen Pending 05/14/16 12:40 Wound Culture Received Wound Abdomen Pending Result Diagram: 05/14/16 1247 05/14/16 1247 Imaging No imaging studies performed. Assessment and Plan Assessment and Plan 1. Sepsis/Abdominal pannus wound cellulitis and ulcer, consulted General Surgery , started on Vancomycin and Zosyn and follow blood cultures and wound culture as per Emergency Medicine specialist will need Intensive Care management. 2. Morbid Obesity strongly recommended diet and exercise, weight loss warranted. 3. Hypertension controlled will continue home medicines 4. DM II continue sliding scale. 5. Hyperlipidemia continue home medicines 6. ESRD on Hemodialysis and Friday, at this time going for HD 7. chronic low back pain and chronic pain syndrome DVT prophylaxis with Heparin every 12 hours. Code Status Full Code. Discussed Condition With ER PA, patient, and her son in ER. Physician Certification 2 Midnight Certification Type: Admission for Inpatient Services Order for Inpatient Services The services are ordered in accordance with Medicare regulations or non- Medicare payer requirements, as applicable. In the case of services not specified as inpatient-only, they are appropriately provided as inpatient services in accordance with the 2-midnight benchmark. Estimated LOS (days): 5 days is the estimated time the patient will need to remain in the hospital, assuming treatment plan goals are met and no additional complications. Post-Hospital Plan: Not yet determined Ken Franks MD May 14, 2016 14:36
[2016-05-14] MEDS ORDERED: Vancomycin Consult Pharmacy 1 EA OTHER SCH (14:45)
[2016-05-14] MEDS ORDERED: SODIUM CHLOR 0.9% 1000 ML INJ 1,000 ML IV PRN (14:54)
[2016-05-14 14:55] LABS: LACTIC ACID GHOST NOT REPORTABLE
[2016-05-14] MEDS ORDERED: SODIUM CHLORIDE 0.9% FLUSH 5 ML FLUSH IVF PRN (15:00)
[2016-05-14] MEDS ORDERED: MANNITOL 12.5 GM/50 ML VIAL IV PRN (15:00)
[2016-05-14] MEDS ORDERED: HEPARIN SODIUM - IV 10,000 UNITS/10 ML VIAL IVF PRN (15:00)
[2016-05-14] MEDS ORDERED: cloNIDine HCL 0.1 MG TAB PO PRN (15:00)
[2016-05-14] MEDS ORDERED: GELATIN 12 MM/7 MM FOAM TOP PRN (15:00)
[2016-05-14] MEDS ORDERED: ONDANSETRON HCL 4 MG/2 ML VIAL IV PRN (15:00)
[2016-05-14] MEDS ORDERED: diphenhydrAMINE HCL 25 MG CAP PO PRN (15:00)
[2016-05-14] MEDS ORDERED: VANCOMYCIN INJ 2,000 MG in SODIUM CHLORID 0.9% 500 ML INJ 500 ML IV ONE (15:00)
[2016-05-14] MEDS ORDERED: NITROGLYCERIN 0.4 MG SL 25 TABS/BTL SL PRN (15:00)
[2016-05-14] MEDS ORDERED: ACETAMINOPHEN 325 MG TAB PO PRN (15:00)
[2016-05-14 15:06] VITALS: BP 151/64; PULSE 61; RESP 18; O2SAT 99
--- NOTE | 2016-05-14 15:07 | PD ---
Physical Exam Narrative GENERAL: obese, well-developed patient. SKIN: To right lower quadrant there is a large foul-smelling wound noted to pannus with yellow drainage noted HEAD: Normocephalic and atraumatic. EYES: No injection or drainage. ENT: No nasal drainage noted. NECK: Supple, trachea midline. CARDIOVASCULAR: Regular rate and rhythm RESPIRATORY: No increased effort. No accessory muscle use. GASTROINTESTINAL: Abdomen soft, tender over wound without obvious abscess but difficult examination, nondistended. NEUROLOGICAL: Awake and alert. Moves extremities. Normal speech. Data Data Last Documented VS Vital Signs Date Time Temp Pulse Resp B/P Pulse Ox O2 Delivery O2 Flow Rate FiO2 05/14/16 12:40 99 Room Air 05/14/16 12:35 18 05/14/16 12:07 98.4 71 120/55 Orders Complete Blood Count With Diff (05/14/16 12:34) Comprehensive Metabolic Panel (05/14/16 12:34) Lactic Acid Sepsis Protocol (05/14/16 12:34) Blood Culture (05/14/16 12:34) Wound Culture And Gram Stain (05/14/16 12:34) Blood Glucose (05/14/16 12:34) Ecg Monitoring (05/14/16 12:34) Iv Access Insert/Monitor (05/14/16 12:34) Oximetry (05/14/16 12:34) Oxygen Administration (05/14/16 12:34) Prothrombin Time / Inr (Pt) (05/14/16 12:53) Act Partial Throm Time (Ptt) (05/14/16 12:53) Red Blood Cells (Rbc) (05/14/16 13:10) Blood Product Administration .UPON TRANSFUSION (05/14/16 13:10) Sodium Chlor 0.9% 250 Ml Inj (Ns 250 Ml (05/14/16 13:15) Type And Screen (05/14/16 13:10) Piperacil-Tazo 3.375 Gm Premix (Zosyn 3. (05/14/16 13:45) Vancomycin Inj (Vancomycin Inj) (05/14/16 13:45) Consult General Surgery (05/14/16 ) Vancomycin Inj (Vancomycin Inj) (05/14/16 14:00) Ct Abd/Pel W/O Iv Contrast (05/14/16 ) Consult Nephrology (05/14/16 ) Vascular Access Team Consult PRN (05/14/16 13:58) Admit Order (Ed Use Only) (05/14/16 14:11) Labs Laboratory Tests Test 05/14/16 05/14/16 05/14/16 12:47 13:00 13:14 White Blood Count 19.4 TH/MM3 Red Blood Count 2.99 MIL/MM3 Hemoglobin 6.5 GM/DL Hematocrit 21.7 % Mean Corpuscular Volume 72.6 FL Mean Corpuscular Hemoglobin 21.8 PG Mean Corpuscular Hemoglobin 30.1 % Concent Red Cell Distribution Width 20.0 % Platelet Count 612 TH/MM3 Mean Platelet Volume 6.9 FL Neutrophils (%) (Auto) 89.8 % Lymphocytes (%) (Auto) 4.4 % Monocytes (%) (Auto) 5.2 % Eosinophils (%) (Auto) 0.2 % Basophils (%) (Auto) 0.4 % Neutrophils # (Auto) 17.4 TH/MM3 Lymphocytes # (Auto) 0.9 TH/MM3 Monocytes # (Auto) 1.0 TH/MM3 Eosinophils # (Auto) 0.0 TH/MM3 Basophils # (Auto) 0.1 TH/MM3 CBC Comment AUTO DIFF Differential Total Cells 100 Counted Neutrophils % (Manual) 73 % Band Neutrophils % 18 % Lymphocytes % 8 % Monocytes % 1 % Neutrophils # (Manual) 17.7 TH/MM3 Differential Comment FINAL DIFF MANUAL Toxic Vacuolation PRESENT Platelet Estimate HIGH Platelet Morphology Comment NORMAL Acanthocytes OCC Sodium Level 129 MEQ/L Potassium Level 5.5 MEQ/L Chloride Level 92 MEQ/L Carbon Dioxide Level 20.7 MEQ/L Anion Gap 16 MEQ/L Blood Urea Nitrogen 71 MG/DL Creatinine 8.34 MG/DL Estimat Glomerular Filtration 5 ML/MIN Rate Random Glucose 213 MG/DL Lactic Acid Level 2.1 mmol/L Calcium Level 7.9 MG/DL Total Bilirubin 0.5 MG/DL Aspartate Amino Transf 41 U/L (AST/SGOT) Alanine Aminotransferase 19 U/L (ALT/SGPT) Alkaline Phosphatase 190 U/L Total Protein 8.6 GM/DL Albumin 1.9 GM/DL Prothrombin Time 13.1 SEC Prothromb Time International 1.2 RATIO Ratio Activated Partial 39.6 SEC Thromboplast Time Blood Type O POSITIVE Antibody Screen NEGATIVE Crossmatch Leukocyte-Reduced Red Blood Cells Blood Bank Comment MDM Supervised Visit with RONNIE: Yes Interpretation(s) CBC & BMP Diagram 05/14/16 12:47 Narrative Course I, Dr. flores, have reviewed the advance practice practitioner's documentation and am in agreement, met with the patient face to face, made the diagnosis, and the medical decision making was done by me. *My assessment and Findings: 55-year-old female presents with wound needing debridement to her lower abdomen per wound care team. Incidentally she missed her dialysis and also has a critical anemia which is chronic for her intermittently. We'll check CT to assess the extent of wound and discuss with general surgery. She will be admitted for further care Physician Communication Physician Communication Dr. kitchen will come and evaluate patient Diagnosis Primary Impression: Severe sepsis Additional Impressions: Severe anemia Open wound of abdomen Qualified Code: S31.109A - Open wound of abdomen, initial encounter End stage renal disease on dialysis Hyperkalemia Admitting Information Admitting Physician Requests: Admit Stephanie Flores MD May 14, 2016 15:07
[2016-05-14] MEDS: HEPARIN SODIUM - SQ 10,000 UNITS/ML VIAL SQ SCH (16:00)
--- NOTE | 2016-05-14 16:45 | MB ---
cc: BLANCA CHATMAN M.D. DATE OF CONSULTATION 05/14/2016 REASON FOR CONSULTATION Necrotic, opened, malodorous wound of the panniculus. BRIEF HISTORY This is an unfortunate super morbidly obese 55-year-old woman who about 6 weeks ago began developing a sore on the right side of her panniculus. Her son has helped with dressing changes. She has been seeing Dr. Madden for in office debridements. It has gone beyond the point of being able to manage this as an outpatient. She was unable to get up and walk. She was brought here by ambulance. She was evaluated by a physician personal injury attorney in the emergency department. I was asked to see her regarding debridement. ALLERGIES THE PATIENT HAS ALLERGIES TO BIAXIN AND IRON WHICH CAUSES CONSTIPATION. BIAXIN SWELLING OF THE FACE. PAST MEDICAL HISTORY Previous medical problems include: 1. Osteoarthritis. 2. Coronary artery disease status post catheterization and stent placement. 3. Hyperlipidemia. 4. Congestive heart failure. 5. Diabetes. 6. End-stage renal disease with hemodialysis. 7. Hypertension. 8. Spinal stenosis. 9. Hypothyroidism. PAST SURGICAL HISTORY Previous surgery includes: 1. A lap band in 2004. 2. Laparoscopic cholecystectomy in 1996. 3. PCI and stent placement in 2012. 4. Vas-cath on the right. 5. section. 6. She has also had a left upper extremity A-V fistula and superficialization of the A-V fistula. MEDICATIONS Her routine medications include: 1. Gabapentin. 2. Meclizine. 3. Lortab. 4. Aspirin. 5. Tizanidine. 6. NovoLog insulin. 7. Levothyroxine. 8. Fluoxetine. 9. Calcitriol. 10. Benazepril. 11. Atorvastatin. 12. Atenolol. 13. Amlodipine. SOCIAL HISTORY She denies alcohol or tobacco abuse. REVIEW OF SYSTEMS Significant for the above-mentioned findings. She has had no fevers or chills. She has had weakness and difficulty with walking, now with this sore. She has pain associated with the sore. She has obstructive symptoms associated with her morbid obesity. PHYSICAL EXAMINATION GENERAL: Super morbidly obese woman with a reported weight of approximately 160 kilos. Temperature 98.4, pulse 71, respiratory rate 18, blood pressure 120/55, O2 sat 99% on room air. HEENT: She is normocephalic, atraumatic. Her pupils are 2-3, round and sluggishly reactive to light. Her sclerae are anicteric. Oropharynx is clear without mucosal lesions. NECK: Supple without neuropathy. She has a right side vas-cath entering her jugular venous system and exiting in the upper right chest. Her carotid arteries, she has what I think is just sounds from a systolic murmur from her heart which heart sounds are distant, but I do hear a murmur. LUNGS: Her lung sounds are clear and equal anteriorly bilaterally. BREASTS: Examination deferred. GENITAL: Examination deferred. RECTAL: Examination deferred. ABDOMEN: Her abdomen is huge. She has a huge large panniculus. She has at least an 8 x 20 cm oval wound on the right side of her panniculus with surrounding indurated skin and fat. She has a similar area of fat, necrotic, tight, firm tissue in the left side of her pannus. I believe there are a few little scars in the upper abdomen but it is hard to see. EXTREMITIES: Her extremities are just morbidly obese. She has a scar on her left forearm from her AV fistula type surgery. NEUROLOGICAL: She is awake, alert, oriented. She has equal bilateral grooving lathe tender strength and no gross motor or sensory deficit. LABORATORY DATA Her labs show white count of 19.4 with 89% neutrophils, 71% neutrophils, 18% bands. Hemoglobin 6.5. Platelet count is 612, INR is 1.2. Her PTT is 39.6. All of her electrolytes are abnormal with a sodium of 129, potassium of 5.5, chloride of 92, CO2 20.7, BUN of 71, creatinine 8.34, lactic acid 2.1, calcium of 7.9, albumin of 1.9, alkaline phosphatase of 190. IMAGING She has had no imaging. MICROBIOLOGY Cultures are all pending. ASSESSMENT An unfortunate, very pleasant 55-year-old super morbidly obese woman with necrotic and malodorous secondarily infected wound of her pannus. pannus. This is a very complicated situation due to her super morbid obesity. My concern is with traditional surgical debridement with or without VAC drainage will take a wound of the size she has and make it just a larger wound that has poor healing. She has multiple factors that make her high risk for poor wound healing including her morbid obesity, her diabetes, her end-stage renal disease. This is a very difficult situation. Due to this fact, I have contacted two local bariatric surgeons, neither of which have any sort of helpful experience in the super morbidly obese with necrotic wounds such as this. I put out a call to Dr. Johnson to try to get his experience and opinion. This is not really a general surgical problem. This is a huge skin and soft tissue disorder that will require likely a multi discipline approach to facilitate any sort of chance of having wound healing and not just taking a moderate size wound and making it a huge nonhealing wound. I have discussed this with the patient and her family who are at her bedside. They are appreciative of my effort. I have consulted Dr Johnson of Plastics who has graciously agreed to evaluate the patient and assist in her care. I spoke with him and he said he would consider debridement, understanding her multiple factors that may interfere with healing, super morbid obesity, insulin dependent diabetes, Dialysis dependent kidney disease, anemia, and hypo proteinemia. MD THERESE Mulligan/LIZZIE /2:53 PM /4:25 PM WINSOME
[2016-05-14] MEDS: ACETAMINOPHEN/HYDROcodone 325 MG/10 MG TAB PO PRN (16:49)
[2016-05-14] MEDS: SEVELAMER CARBONATE 800 MG TAB PO SCH (18:00)
[2016-05-14] MEDS ORDERED: GLUCAGON 1 MG/ML VIAL OTHER PRN (18:45)
[2016-05-14] MEDS ORDERED: DEXTROSE 50% IN WATER 50 ML VIAL(D50) IV PUSH PRN (18:45)
[2016-05-14 19:06] VITALS: BP 149/99; PULSE 76; RESP 18; O2SAT 99
[2016-05-14] MEDS: LISINOPRIL 20 MG TAB PO SCH (21:00)
[2016-05-14] MEDS: GABAPENTIN 100 MG CAP PO SCH (21:00)
[2016-05-14] MEDS: ATORVASTATIN 80 MG TAB PO SCH (21:00)
[2016-05-14] MEDS: DOCUSATE SODIUM 100 MG CAP PO SCH (21:00)
[2016-05-14] MEDS: SODIUM CHLORIDE 0.9% FLUSH 5 ML FLUSH FLUSH SCH (21:00)
[2016-05-14] MEDS: ATENOLOL 50 MG TAB PO SCH (21:00)
[2016-05-14] MEDS: amLODIPine BESYLATE 5 MG TAB PO SCH (21:00)
[2016-05-14] MEDS: INSULIN NovoLIN REGULAR SUPPLEMENTAL SCALE SQ SCH (21:08)
--- NOTE | 2016-05-14 21:53 | MB ---
cc: ANJUM MIKE MD DATE OF CONSULTATION 05/14/16 REASON FOR CONSULTATION End-stage renal disease on hemodialysis for management. HISTORY OF PRESENT ILLNESS This is a 55-year-old female known to me from before with past medical history of diabetes mellitus, history of morbid obesity, end-stage renal disease on hemodialysis three times per week, history of chronic anemia, congestive heart failure, spinal stenosis, chronic back pain, hypothyroidism who came to the hospital with complaint of worsening lower abdominal wound. I was called to see the patient for the management of dialysis. The patient has been on hemodialysis Friday, and Friday. She missed her dialysis on Friday because she was feeling weak and tired. According to the son, she had some jerky movement of the body and this all started after she started taking gabapentin. She has been sleepy most of the time during the daytime. She has lower abdominal wound for which she is getting the wound care and dressing change with her primary physician and when she went to see Dr. Madden last week, Friday, she was told that the wound was getting worse and she would need to see the surgeon or go to the hospital, but she deferred coming to the hospital until today when her condition got much worse. She has no history of fever, but she has been sleeping most of the IV during the daytime and he has some jerky movements of her arms and legs off and on. She has been more forgetful. She is blaming all this on gabapentin she started taking about two weeks ago. She was taking 200 mg once a day. She has an AV fistula in the left arm and we started using it and she just got two liters but she still has the PermCath through which she is getting dialysis. She has a history of anemia and was getting transfusion off and on. She was referred to hematology. She has low iron saturation and she was not able to tolerate any iron because of constipation. She just agreed to get the lower dose 50 mg IV Venofer once a week which is probably not enough. She denies any apparent bleeding. PAST MEDICAL HISTORY 1. Ischemic heart disease, 2. Congestive heart failure, 3. Hyperlipidemia, 4. Diabetes mellitus 5. Spinal stenosis, 6. Chronic back pain, 7. Hypothyroidism, 8. Morbid obesity, 9. End-stage renal disease on hemodialysis, 10. Chronic anemia. PAST SURGICAL HISTORY 1. History of lap band done in 2004, 2. Laparoscopic cholecystectomy in 1996 3. PCI and stent placement in 2012 4. Dialysis catheter placement left arm AV fistula surgery, 5. section. REVIEW OF SYSTEMS Denies any history of fever. No sore throat. She has generalized weakness, feeling tired and sleepy, has less energy. Has shortness of breath on exertion. She is not able to stand up because of generalized weakness which has been progressively getting worse. Her lower abdominal wound is causing more pain. She is getting dressing change. There is no history of nausea, vomiting, diarrhea. She denies any chest pain. She is having some jerky movement of both upper arms and head ff and on. SOCIAL HISTORY The patient lives with her and son. There is no history of smoking or alcoholism FAMILY HISTORY Noncontributory. ALLERGIES BIAXIN IRON MEDICATIONS Current, 1. Dextrose 2. Normal saline 100 an hour. 3. Amlodipine 5 mg b.i.d. 4. Atenolol 50 mg b.i.d. 5. Lisinopril 20 mg b.i.d. 6. Neurontin 100 mg b.i.d. 7. Aspirin 81 mg daily. 8. Rocaltrol 0.5 mcg daily. 9. Prozac 20 mg once a day. 10. Synthroid 300 mcg once a day. 11. Lipitor 80 mg q.h.s. 12. She got one dose of vancomycin and Zosyn 13. Zosyn q.8 h 2.25 grams. 14. Percocet as needed. 15. Zofran as needed PHYSICAL EXAMINATION GENERAL: The patient is awake, alert. She is not in acute distress. VITAL SIGNS: Blood pressure is 151/64 temperature 98.4, oxygen saturation on room air is 99%. HEENT: Pupils equally reacting to light. Nonicteric sclerae. Conjunctivae pale. NECK: Supple. JVD is not elevated. LUNGS: The patient has bilateral decreased air entry with scattered wheezing. HEART: S1, S2, regular rhythm. ABDOMEN: Obese, soft, lax. It is very difficult to examine the wound since her belly is a very big and the wound is all the way on the lower part of her belly, but it has been covered with a dressing. EXTREMITIES: She has bilateral lymphedema. LABORATORY DATA WBC count 19.4, hemoglobin 6.5, platelet count of 612, neutrophils 89.8%, Sodium 129. Potassium 5.5, chloride 92, bicarb 20.7, BUN 71, creatinine 8.3. Lactic acid is 2.1. Calcium 7.9, AST is 41, ALT is 19, alkaline phosphatase 190, total protein is 8.6 with albumin of 1.9, INR 1.2. Urinalysis showing protein of 300. This was done some time ago. Cultures are pending. IMAGING STUDIES The patient has chest x-ray done which shows no evidence of pneumonia. ASSESSMENT/PLAN 1. Abdominal with possible infection. 2. Rule-out sepsis 3. Severe anemia. 4. End-stage renal disease on hemodialysis. 5. Morbid obesity. The patient has been seen by the surgeon, but given the severity if her wound and her morbid conditions including her morbid obesity, he has consulted also plastic surgeon to look into it and see if they can help. In the meantime continue antibiotics. Her phosphorous was not very high, the last one. I will recheck it again. We will make sure that the calcium phosphorus remains not very high since it can precipitate skin necrosis along with her other comorbid conditions. We will try to avoid high phosphorus and treat accordingly as needed. Hemodialysis has been arranged which we will begin soon. The patient will be getting blood transfusion during dialysis. Thank for consultation. I will follow the patient while she is in the hospital. MD NILSON Faulkner/ /7:00 PM /9:26 PM
[2016-05-14] MEDS: PIPERACIL-TAZO 2.25 GM PREMIX 50 ML IV SCH (22:00)
[2016-05-15] VITALS (8 sets, daily range): BP systolic 100–146; BP diastolic 50–70; PULSE 61–64; RESP 18–24; TEMP 97.9–99.6; O2SAT 94–100
[2016-05-15] MEDS: HEPARIN SODIUM - SQ 10,000 UNITS/ML VIAL SQ SCH ×2 (04:00→17:00)
[2016-05-15 05:36] LABS: AUTOMATED NEUTROPHIL # 9.9 TH/MM3 (1.8-7.7); BASOPHIL # 0.1 TH/MM3 (0-0.2); BASOPHIL % 0.7 % (0.0-2.0); EOSINOPHIL # 0.1 TH/MM3 (0-0.4); EOSINOPHIL % 0.7 % (0.0-4.0); HEMATOCRIT 22.2 % (35.0-46.0); LYMPH % 10.1 % (9.0-44.0); LYMPHOCYTE # 1.2 TH/MM3 (1.0-4.8); MEAN CELL VOLUME 74.9 FL (80.0-100.0); MEAN CORPUSCULAR HEMOGLOBIN 24.3 PG (27.0-34.0); MEAN CORPUSCULAR HGB CONC 32.4 % (32.0-36.0); MONO % 6.9 % (0.0-8.0); NEUT % 81.6 % (16.0-70.0); PLATELET COUNT 424 TH/MM3 (150-450); RED BLOOD COUNT 2.97 MIL/MM3 (4.00-5.30); RED CELL DISTRIBUTION WIDTH 20.2 % (11.6-17.2); WHITE BLOOD COUNT 12.1 TH/MM3 (4.0-11.0)
[2016-05-15 05:55] LABS: BICARBONATE 23.2 MEQ/L (21.0-32.0); INDIRECT BILIRUBIN 0.4 MG/DL (0.0-0.8); POTASSIUM 4.2 MEQ/L (3.5-5.1); TOTAL BILIRUBIN ADULT 0.6 MG/DL (0.2-1.0)
[2016-05-15] MEDS: PIPERACIL-TAZO 2.25 GM PREMIX 50 ML IV SCH ×3 (06:00→22:54)
[2016-05-15] MEDS: LEVOTHYROXINE SODIUM 150 MCG TAB PO SCH (06:00)
[2016-05-15 06:16] LABS: HEMO FLAGS AUTO DIFF
[2016-05-15] MEDS: INSULIN NovoLIN REGULAR SUPPLEMENTAL SCALE SQ SCH ×4 (06:32→21:36)
[2016-05-15 07:53] LABS: SCAN/DIFF AUTO DIFF CONFIRMED
--- NOTE | 2016-05-15 08:05 | HHI.PR ---
Subjective Subjective Notes Sitting up in bed, having something to drink. no sign of illness. Objective Vitals/I&O Vital Signs Date Time Temp Pulse Resp B/P Pulse Ox O2 Delivery O2 Flow Rate FiO2 05/15/16 04:00 99.0 62 24 110/50 94 05/14/16 19:06 Room Air Labs Laboratory Tests Test 05/14/16 05/14/16 05/14/16 05/14/16 12:47 13:00 13:14 16:11 White Blood Count 19.4 Red Blood Count 2.99 Hemoglobin 6.5 Hematocrit 21.7 Mean Corpuscular Volume 72.6 Mean Corpuscular Hemoglobin 21.8 Mean Corpuscular Hemoglobin 30.1 Concent Red Cell Distribution Width 20.0 Platelet Count 612 Mean Platelet Volume 6.9 Neutrophils (%) (Auto) 89.8 Lymphocytes (%) (Auto) 4.4 Monocytes (%) (Auto) 5.2 Eosinophils (%) (Auto) 0.2 Basophils (%) (Auto) 0.4 Neutrophils # (Auto) 17.4 Lymphocytes # (Auto) 0.9 Monocytes # (Auto) 1.0 Eosinophils # (Auto) 0.0 Basophils # (Auto) 0.1 CBC Comment AUTO DIFF Differential Total Cells 100 Counted Neutrophils % (Manual) 73 Band Neutrophils % 18 Lymphocytes % 8 Monocytes % 1 Neutrophils # (Manual) 17.7 Differential Comment FINAL DIFF MANUAL Toxic Vacuolation PRESENT Platelet Estimate HIGH Platelet Morphology Comment NORMAL Acanthocytes OCC Sodium Level 129 Potassium Level 5.5 Chloride Level 92 Carbon Dioxide Level 20.7 Anion Gap 16 Blood Urea Nitrogen 71 Creatinine 8.34 Estimat Glomerular Filtration 5 Rate Random Glucose 213 Lactic Acid Level 2.1 1.3 Calcium Level 7.9 Total Bilirubin 0.5 Aspartate Amino Transf 41 (AST/SGOT) Alanine Aminotransferase 19 (ALT/SGPT) Alkaline Phosphatase 190 Total Protein 8.6 Albumin 1.9 Prothrombin Time 13.1 Prothromb Time International 1.2 Ratio Activated Partial 39.6 Thromboplast Time Blood Type O POSITIVE Antibody Screen NEGATIVE Crossmatch Leukocyte-Reduced Red Blood Cells Blood Bank Comment Test 05/15/16 04:00 White Blood Count 12.1 Red Blood Count 2.97 Hemoglobin 7.2 Hematocrit 22.2 Mean Corpuscular Volume 74.9 Mean Corpuscular Hemoglobin 24.3 Mean Corpuscular Hemoglobin 32.4 Concent Red Cell Distribution Width 20.2 Platelet Count 424 Mean Platelet Volume 6.6 Neutrophils (%) (Auto) 81.6 Lymphocytes (%) (Auto) 10.1 Monocytes (%) (Auto) 6.9 Eosinophils (%) (Auto) 0.7 Basophils (%) (Auto) 0.7 Neutrophils # (Auto) 9.9 Lymphocytes # (Auto) 1.2 Monocytes # (Auto) 0.8 Eosinophils # (Auto) 0.1 Basophils # (Auto) 0.1 CBC Comment AUTO DIFF Differential Comment AUTO DIFF CONFIRMED Sodium Level 134 Potassium Level 4.2 Chloride Level 97 Carbon Dioxide Level 23.2 Anion Gap 14 Blood Urea Nitrogen 48 Creatinine 5.67 Estimat Glomerular Filtration 8 Rate Random Glucose 163 Calcium Level 7.8 Phosphorus Level 5.6 Total Bilirubin 0.6 Direct Bilirubin 0.2 Indirect Bilirubin 0.4 Aspartate Amino Transf 25 (AST/SGOT) Alanine Aminotransferase 10 (ALT/SGPT) Alkaline Phosphatase 194 Total Protein 6.9 Albumin 1.5 Date/Time Procedure Status Source Growth 05/14/16 12:45 Aerobic Blood Culture Received Blood Peripheral Pending 05/14/16 12:45 Anaerobic Blood Culture Received Blood Peripheral Pending 05/14/16 12:40 Gram Stain - Final Resulted Wound Abdomen 05/14/16 12:40 Wound Culture Resulted Wound Abdomen Pending 05/14/16 12:34 Gram Stain Received Wound Abdomen Pending 05/14/16 12:34 Wound Culture Received Wound Abdomen Pending Narrative Exam Panniculus wound dressed, left alone. It continues to be malodorous. A/P Assessment and Plan Large necrotic infected wound on R side of pannus. Awaiting evaluation by Dr Johnson. WBC improved on abx. Will likely benefit from debridement, however, she is high risk for wound healing problems and creating a much larger more difficult to heal wound. The patient, through a family member with spina bifida, has experience with a plastic surgeon at the [facility], Dr Fagan(spelling?), who she may prefer to see. Given the complexity of her case it would not be unreasonable to consider transition to a multidisciplinary team at a tertiary referral center such as the [facility]. Silverio Matias MD May 15, 2016 08:05
[2016-05-15] MEDS: GABAPENTIN 100 MG CAP PO SCH ×2 (09:00→21:31)
[2016-05-15] MEDS: SEVELAMER CARBONATE 800 MG TAB PO SCH ×3 (09:00→17:00)
[2016-05-15] MEDS: ATENOLOL 50 MG TAB PO SCH ×2 (09:00→21:32)
[2016-05-15] MEDS: DOCUSATE SODIUM 100 MG CAP PO SCH ×2 (09:29→21:00)
[2016-05-15] MEDS: CALCITRIOL 0.25 MCG CAP PO SCH (09:29)
[2016-05-15] MEDS: SODIUM CHLORIDE 0.9% FLUSH 5 ML FLUSH FLUSH SCH ×2 (09:30→21:31)
[2016-05-15] MEDS: ASPIRIN EC 81 MG TABEC PO SCH (09:30)
[2016-05-15] MEDS: LISINOPRIL 20 MG TAB PO SCH ×2 (09:30→21:33)
[2016-05-15] MEDS: FLUoxetine HCL 20 MG CAP PO SCH (09:30)
[2016-05-15] MEDS: amLODIPine BESYLATE 5 MG TAB PO SCH ×2 (09:31→21:33)
[2016-05-15] MEDS: ACETAMINOPHEN/HYDROcodone 325 MG/10 MG TAB PO PRN ×3 (10:40→21:37)
--- NOTE | 2016-05-15 13:34 | PD.CONS ---
History of Present Illness Service Infectious disease Consult Requested By Dr Maria Reason for Consult Evaluate patient with large abdominal wound with cellulitis Primary Care Physician Aline Velarde MD Diagnoses: History of Present Illness Patient seen and examined. Records reviewed. This is a 55-year-old obese female, presented to the hospital for further evaluation of her large abdominal wound. Patient has a large abdominal apron and she was recently found to have an ulcer under the apron. She started going to the wound care Center and has been going there once a week. She's had some debridement, and has been given oral antibiotics. There was a wound culture done in the wound care center and it grew Pseudomonas and enterococcus. Patient just completed a 10 day course of Levaquin and ampicillin. She was seen again in follow-up, and the patient was told that her wounds are getting worse and that she needed to go see a surgeon for surgical management. Patient has been noted to be sleeping a lot. She has missed her dialysis because of significant weakness. There's been no mention of any fever or chills or sweats. Since admission she has not been febrile. Highest temperature was 99.6. Her white count was up to 19,000, and it's improving. She has been started on Zosyn IV, and IV vancomycin. Surgery has seen the patient and has recommended plastic surgical evaluation. Infectious disease consultation has been requested to evaluate the patient. Review of Systems Constitutional: COMPLAINS OF: Fatigue, Change in appetite, DENIES: Fever, Chills Eyes: DENIES: Eye pain Ears, nose, mouth, throat: DENIES: Nasal discharge, Oral lesions, Throat pain, Ear Pain, Sinus Pain Respiratory: DENIES: Cough, Shortness of breath Cardiovascular: DENIES: Chest pain, Palpitations Gastrointestinal: COMPLAINS OF: Abdominal pain, DENIES: Nausea, Vomiting, Difficulty Swallowing Musculoskeletal: COMPLAINS OF: Muscle aches Integumentary: DENIES: Rash Neurologic: DENIES: Headache Psychiatric: DENIES: Hallucinations Past Family Social History Allergies: Coded Allergies: Biaxin (Verified Allergy, Severe, swelling of face, 05/10/16) Iron (Verified Adverse Reaction, Severe, Constipation, 05/10/16) Past Medical History Osteoarthritis Morbid obesity CAD status post Cardiac Catheterization and stent placement Hyperlipidemia CHF DM II ESRD on Hemodialysis T Hypertension Spinal stenosis REESE Hypothyroidism. Past Surgical History Lap Band 2004 Laparoscopic Cholecystectomy 1996 PCI and stent placement June 2012 Dialysis Catheter placement on right C Section x 1 LUE AV fistula Active Ordered Medications Tylenol [place] Albumin Norvasc Aspirin Tenormin Lipitor Dulcolax Rocaltrol Clonidine Benadryl Colace Epogen Prozac Neurontin Heparin Insulin Synthroid Prinivil [place] Antivert Reglan Zofran SL NTG Zosyn Renvela Zanaflex Vancomycin Social History No smoking Alcohol abuse No illicit drug Physical Exam Vital Signs Vital Signs Date Time Temp Pulse Resp B/P Pulse Ox O2 Delivery O2 Flow Rate FiO2 05/15/16 08:00 98.7 62 24 110/50 94 05/15/16 08:00 98 Nasal Cannula 2.00 05/15/16 04:00 99.0 62 24 110/50 94 05/15/16 00:00 99.6 64 20 146/70 100 05/14/16 19:12 18 05/14/16 19:06 76 18 149/99 99 Room Air 05/14/16 15:06 61 18 151/64 99 Room Air Physical Exam GENERAL: This is an obese, well-developed female, awake and alert, in no apparent distress. SKIN: Cool and dry. No generalized rash. HEAD: Atraumatic. Normocephalic. No temporal or scalp tenderness. EYES: [place] conjunctivae. Pupils equal round and reactive. Extraocular motions intact. No scleral icterus. No injection or drainage. ENT: Nose without bleeding, or purulent drainage. Moist oral mucosa. Throat without erythema, tonsillar hypertrophy or exudate. Uvula midline. Airway patent. NECK: Trachea midline. No JVD or lymphadenopathy. Supple, nontender, no meningeal signs. Permacath is tunnelled to LIJ, sit ok CARDIOVASCULAR: Regular rate and rhythm. Soft heart sounds. RESPIRATORY: Clear to auscultation. Breath sounds equal bilaterally. No wheezes , rales, or rhonchi. Decreased BS at bases GASTROINTESTINAL: Abdomen is obese, has large pannus, and there is a large open wound about 10 in x 6 in with black eschar and necrotyic slough with fould odor. There is surrounding cellulitis that gpes to the R groin area . Tender around the wound with induration. No guarding, no rebound. (+) BS normoactive. MUSCULOSKELETAL: BLE has leather texture brown color of her whole leg and feet. Warm, no cyanosis. No joint tenderness, effusion. No calf tenderness. Negative Homans sign bilaterally. NEUROLOGICAL: Awake and alert. Cranial nerves II through XII intact. Motor and sensory grossly within normal limits. Five out of 5 muscle strength in all muscle groups. Normal speech. PSYCH: Normal affect, clam and cooperative LINE: Permacath with no evidence of infection Laboratory Laboratory Tests Test 05/14/16 05/15/16 16:11 04:00 Lactic Acid Level 1.3 White Blood Count 12.1 Red Blood Count 2.97 Hemoglobin 7.2 Hematocrit 22.2 Mean Corpuscular Volume 74.9 Mean Corpuscular Hemoglobin 24.3 Mean Corpuscular Hemoglobin 32.4 Concent Red Cell Distribution Width 20.2 Platelet Count 424 Mean Platelet Volume 6.6 Neutrophils (%) (Auto) 81.6 Lymphocytes (%) (Auto) 10.1 Monocytes (%) (Auto) 6.9 Eosinophils (%) (Auto) 0.7 Basophils (%) (Auto) 0.7 Neutrophils # (Auto) 9.9 Lymphocytes # (Auto) 1.2 Monocytes # (Auto) 0.8 Eosinophils # (Auto) 0.1 Basophils # (Auto) 0.1 CBC Comment AUTO DIFF Differential Comment AUTO DIFF CONFIRMED Sodium Level 134 Potassium Level 4.2 Chloride Level 97 Carbon Dioxide Level 23.2 Anion Gap 14 Blood Urea Nitrogen 48 Creatinine 5.67 Estimat Glomerular Filtration 8 Rate Random Glucose 163 Calcium Level 7.8 Phosphorus Level 5.6 Total Bilirubin 0.6 Direct Bilirubin 0.2 Indirect Bilirubin 0.4 Aspartate Amino Transf 25 (AST/SGOT) Alanine Aminotransferase 10 (ALT/SGPT) Alkaline Phosphatase 194 Total Protein 6.9 Albumin 1.5 Date/Time Procedure Status Source Growth 05/14/16 12:45 Aerobic Blood Culture - Preliminary Resulted Blood Peripheral NO GROWTH IN 1 DAY 05/14/16 12:45 Anaerobic Blood Culture - Preliminary Resulted Blood Peripheral NO GROWTH IN 1 DAY 05/14/16 12:40 Gram Stain - Final Resulted Wound Abdomen 05/14/16 12:40 Wound Culture - Preliminary Resulted Pseudomonas Species 05/14/16 12:34 Gram Stain Received Wound Abdomen Pending 05/14/16 12:34 Wound Culture Received Wound Abdomen Pending Result Diagram: 05/15/16 0400 05/15/16 0400 Assessment and Plan Assessment and Plan IMPRESSION Large open wound, abdominal pannus R, with surrounding cellulitis Leukocytosis due to the infected wound, better ESRD on HD Morbid obesity Anemia RECOMMENDATION Plastic surgery to see Wound care Continue Zosyn and Vanco Follow C/S Monitor progress I will follow along with you Thank you for this consultation Discussed Condition With EXplained plan to patient, son and patient's sister D/W Shea Johnson MD May 15, 2016 13:34
--- NOTE | 2016-05-15 18:11 | HHI.PR ---
Subjective Remarks This is a pleasant 55 y/o Female who came to Emergency room as we know she has Hypertension DM II, Hyperlipidemia, Chronic back pain, ESRD on Friday, and Friday , presents to the emergency department for evaluation of worsening abdominal wound. The wound worsened for the last six weeks, she has Wound care by Doctor Maryanne who performed I and D, on multiple opportunities, has wound care twice a day with packing in place, is been feeling weaker, increased drainage and Pain from the wound, as per Doctor Maryanne recommended Surgical management for Surgical debridement, She denies any fever, chills, nausea, vomiting, chest pain , shortness of breath. Seen in the room in the presence of her Son and Sister. awaiting evaluation by performance specialist continue Hemodialysis and Friday. Objective Vital Signs Date Time Temp Pulse Resp B/P Pulse Ox O2 Delivery O2 Flow Rate FiO2 05/15/16 17:27 95 21 05/15/16 12:00 98.0 61 18 113/59 95 05/15/16 08:00 98.7 62 24 110/50 94 05/15/16 08:00 98 Nasal Cannula 2.00 05/15/16 04:00 99.0 62 24 110/50 94 05/15/16 00:00 99.6 64 20 146/70 100 05/14/16 19:12 18 05/14/16 19:06 76 18 149/99 99 Room Air I/O 05/14/16 05/14/16 05/14/16 05/15/16 05/15/16 05/15/16 07:00 15:00 23:00 07:00 15:00 23:00 Intake Total 120 ml Output Total 3000 ml Balance -2880 ml Intake Oral 120 ml Output Urine Total 0 ml Hemodialysis 3000 ml Result Diagram: 05/15/16 0400 05/15/16 0400 Imaging No Imaging studies Procedures No procedures performed to the patient. Other Results Laboratory Tests Test 05/14/16 05/14/16 05/14/16 05/14/16 12:47 13:00 13:14 16:11 Differential Total Cells 100 Counted Neutrophils % (Manual) 73 % Band Neutrophils % 18 % Lymphocytes % 8 % Monocytes % 1 % Neutrophils # (Manual) 17.7 TH/MM3 Toxic Vacuolation PRESENT Platelet Estimate HIGH Platelet Morphology Comment NORMAL Acanthocytes OCC Prothrombin Time 13.1 SEC Prothromb Time International 1.2 RATIO Ratio Activated Partial 39.6 SEC Thromboplast Time Blood Type O POSITIVE Antibody Screen NEGATIVE Crossmatch Leukocyte-Reduced Red Blood Cells Blood Bank Comment Lactic Acid Level 1.3 mmol/L Test 05/15/16 04:00 White Blood Count 12.1 TH/MM3 Red Blood Count 2.97 MIL/MM3 Hemoglobin 7.2 GM/DL Hematocrit 22.2 % Mean Corpuscular Volume 74.9 FL Mean Corpuscular Hemoglobin 24.3 PG Mean Corpuscular Hemoglobin 32.4 % Concent Red Cell Distribution Width 20.2 % Platelet Count 424 TH/MM3 Mean Platelet Volume 6.6 FL Neutrophils (%) (Auto) 81.6 % Lymphocytes (%) (Auto) 10.1 % Monocytes (%) (Auto) 6.9 % Eosinophils (%) (Auto) 0.7 % Basophils (%) (Auto) 0.7 % Neutrophils # (Auto) 9.9 TH/MM3 Lymphocytes # (Auto) 1.2 TH/MM3 Monocytes # (Auto) 0.8 TH/MM3 Eosinophils # (Auto) 0.1 TH/MM3 Basophils # (Auto) 0.1 TH/MM3 CBC Comment AUTO DIFF Differential Comment AUTO DIFF CONFIRMED Sodium Level 134 MEQ/L Potassium Level 4.2 MEQ/L Chloride Level 97 MEQ/L Carbon Dioxide Level 23.2 MEQ/L Anion Gap 14 MEQ/L Blood Urea Nitrogen 48 MG/DL Creatinine 5.67 MG/DL Estimat Glomerular Filtration 8 ML/MIN Rate Random Glucose 163 MG/DL Calcium Level 7.8 MG/DL Phosphorus Level 5.6 MG/DL Total Bilirubin 0.6 MG/DL Direct Bilirubin 0.2 MG/DL Indirect Bilirubin 0.4 MG/DL Aspartate Amino Transf 25 U/L (AST/SGOT) Alanine Aminotransferase 10 U/L (ALT/SGPT) Alkaline Phosphatase 194 U/L Total Protein 6.9 GM/DL Albumin 1.5 GM/DL Objective Remarks GENERAL: Morbidly obese female patient in no acute distress. SKIN: Warm and dry. The patient has an open wound to her right lower abdomen/ pannus. The wound is approximately 8 cm in length, 12 cm in width and approximately 4 cm deep. There is exposed adipose tissue with malodorous drainage and surrounding erythema. HEAD: Normocephalic and atraumatic. EYES: No injection, drainage, or hyphema noted. PERRLA. EOMI. ENT: No nasal drainage noted. Oropharynx is clear. NECK: Supple and the trachea is midline. CARDIOVASCULAR: Regular rate and rhythm. RESPIRATORY: Breath sounds are equal bilaterally with no accessory muscle use, wheezing, rhonchi, or crackles. GASTROINTESTINAL: Abdomen is soft, non-tender, and nondistended. MUSCULOSKELETAL: No obvious deformities, swelling, cyanosis, or ecchymosis is present throughout the upper and lower extremities. NEUROLOGICAL: Awake, alert, and oriented. Normal speech and gait. Cranial nerves are grossly intact. Medications and IVs Current Medications Medications (Trade) Dose Ordered Sig/Soren Route Start Time Stop Time Status Last Admin (Norvasc) 5 mg BID PO 05/14/16 21:00 05/15/16 09:31 (Ecotrin Ec) 81 mg DAILY PO 05/15/16 09:00 05/15/16 09:30 (Tenormin) 50 mg BID PO 05/14/16 21:00 (Lipitor) 80 mg HS PO 05/14/16 21:00 (Prinivil) 20 mg BID PO 05/14/16 21:00 05/15/16 09:30 (Rocaltrol) 0.5 mcg DAILY PO 05/15/16 09:00 05/15/16 09:29 (PROzac) 20 mg DAILY PO 05/15/16 09:00 05/15/16 09:30 (Neurontin) 100 mg BID PO 05/14/16 21:00 ([place] 10-325 Mg) 1 tab Q6H PRN PO 05/14/16 14:15 05/15/16 17:19 (Synthroid) 300 mcg DAILY@0600 PO 05/15/16 06:00 (Antivert) 25 mg TID PRN PO 05/14/16 14:15 (Renvela) 800 mg TID PO 05/14/16 18:00 05/15/16 17:00 (Zanaflex) 4 mg TID PRN PO 05/14/16 14:15 (NS Flush) 2 ml UNSCH PRN FLUSH 05/14/16 14:30 (NS Flush) 2 ml BID FLUSH 05/14/16 21:00 05/15/16 09:30 (Tylenol) 650 mg Q4H PRN PO 05/14/16 14:30 (Zofran Inj) 4 mg Q6H PRN IVP 05/14/16 14:30 (Reglan Inj) 5 mg Q6H PRN IV PUSH 05/14/16 14:30 (Dulcolax Supp) 10 mg DAILY PRN [place] 05/14/16 14:30 (Colace) 100 mg Q12HR PO 05/14/16 21:00 05/15/16 09:29 (Heparin Inj) 5,000 units Q12H SQ 05/14/16 16:00 05/15/16 17:00 Naloxone HCl 0.4 mg 0.4 mg UNSCH PRN IV 05/14/16 14:30 Piperacillin Sod/ Tazobactam Sod 50 ml @ 100 mls/hr Q8H IV 05/14/16 22:00 05/15/16 13:41 (NS 1000 ml Inj) 1,000 ml @ 0 mls/hr Q0M PRN IV 05/14/16 14:54 Heparin Sodium (Porcine) 8000 units 8,000 units UNSCH PRN IVF 05/14/16 15:00 Sodium Chloride 1,000 ml @ 200 mls/hr Q5H PRN IV 05/14/16 14:54 (NS 1000 ml Inj) 1,000 ml @ 0 mls/hr Q0M PRN IV 05/14/16 14:54 (Mannitol Inj) 12.5 gm UNSCH PRN IV 05/14/16 15:00 (Albumin 25% Inj) 25 gm UNSCH PRN IV 05/14/16 15:00 (NS Flush) 5 ml UNSCH PRN IVF 05/14/16 15:00 (Heparin Inj) UNSCH PRN .XX 05/14/16 15:00 (Gentamicin (Dialysis) Inj) 20 mg UNSCH PRN IV 05/14/16 15:00 (Zofran Inj) 4 mg UNSCH PRN IV 05/14/16 15:00 (Tylenol) 650 mg UNSCH PRN PO 05/14/16 15:00 (Benadryl) 25 mg UNSCH PRN PO 05/14/16 15:00 (Nitrostat Sl) 0.4 mg UNSCH PRN SL 05/14/16 15:00 (Catapres) 0.1 mg UNSCH PRN PO 05/14/16 15:00 (Epogen Inj) 10,000 units UNSCH PRN IV 05/14/16 15:00 (Gelfoam 12 Mm/7 Mm Top) 1 foam UNSCH PRN TOP 05/14/16 15:00 (D50w (Vial) Inj) 25 ml UNSCH PRN IV PUSH 05/14/16 18:45 (Glucagon Inj) 1 mg UNSCH PRN OTHER 05/14/16 18:45 A/P Assessment and Plan 1. Sepsis/Abdominal pannus wound cellulitis and ulcer, consulted General Surgery , started on Vancomycin and Zosyn and follow blood cultures and wound culture stable awaiting for Plastic Surgery and following Blood culture negative, and following wound culture. 2. Morbid Obesity strongly recommended diet and exercise, weight loss warranted. 3. Hypertension controlled will continue home medicines 4. DM II continue sliding scale. 5. Hyperlipidemia continue home medicines 6. ESRD on Hemodialysis and Friday, at this time going for HD 7. chronic low back pain and chronic pain syndrome DVT prophylaxis with Heparin every 12 hours. Code Status Full Code. Discharge Planning Once cleared by Specialists. Ken Franks MD May 15, 2016 18:11 Ken Franks MD May 15, 2016 18:11
--- NOTE | 2016-05-15 18:23 | HHI.NPPN ---
Subjective History of Present Illness 55-year-old female known to me from before with past medical history of diabetes mellitus, history of morbid obesity, end-stage renal disease on hemodialysis three times per week, history of chronic anemia, congestive heart failure, spinal stenosis, chronic back pain, hypothyroidism who came to the hospital with complaint of worsening lower abdominal wound. I was called to see the patient for the management of dialysis. The patient has been on hemodialysis Friday, and Friday. Additional Remarks Patient is alert, no SOB, feeling better, abd. pain is improving. Review of Systems General Constitutional: Fatigue Respiratory Lungs: SOB Cardiovascular Cardiac: GRIFFIN Objective Data Data 05/14/16 05/15/16 19:00 07:00 Intake Total 120 ml Output Total 3000 ml Balance -2880 ml Intake Oral 120 ml Output Urine Total 0 ml Hemodialysis 3000 ml Vital Signs Date Time Temp Pulse Resp B/P Pulse Ox O2 Delivery O2 Flow Rate FiO2 05/15/16 17:27 95 21 05/15/16 12:00 98.0 61 18 113/59 95 05/15/16 08:00 98.7 62 24 110/50 94 05/15/16 08:00 98 Nasal Cannula 2.00 05/15/16 04:00 99.0 62 24 110/50 94 05/15/16 00:00 99.6 64 20 146/70 100 05/14/16 19:12 18 05/14/16 19:06 76 18 149/99 99 Room Air -: 05/15/16 0400 05/15/16 0400 Physical Exam General Appearance: No Acute Distress, Comfortable Eyes Eye Exam: Pupils Equal Throat Throat Exam: Oral Mucosa [place] & Moist Neck Neck Exam: Neck Supple Pulmonary Resp Exam: Breath Sounds Equal, Crackles, Decreased Bases, Diminished Breath Sounds Gastrointestinal/Abdomen GI Exam: Soft, Non-Tender, Distended Extremeties Extremities Exam: Moderate Edema, Pitting Edema, Dependent Edema Neurologic Neuro Exam: Alert, Awake, Oriented Psychiatric Psych Exam: Appropriate Responses Assessment/Plan Assessment Summary: Anemia of CKD, Hypertension, End Stage Renal Disease Problem List: (1) Anemia in chronic kidney disease (CKD) (2) Open wound of abdomen (3) Chronic stasis dermatitis (4) End stage kidney disease Plan Patient is on Zosyn, BP is stable, afebrile. Seen by plastic surgery. Debridement once Hgb. is better. HD will be in AM. Epogen with HD. Transfusion as needed. Problem Qualifiers (1) Open wound of abdomen: Qualified Code: S31.109A - Open wound of abdomen, initial encounter Valentin Jimenez MD May 15, 2016 18:23
[2016-05-15] MEDS: ATORVASTATIN 80 MG TAB PO SCH (21:35)
[2016-05-16] VITALS (10 sets, daily range): BP systolic 116–164; BP diastolic 44–73; PULSE 60–72; RESP 16–20; TEMP 98–99; O2SAT 93–96
[2016-05-16] MEDS: LEVOTHYROXINE SODIUM 150 MCG TAB PO SCH (05:11)
[2016-05-16] MEDS: PIPERACIL-TAZO 2.25 GM PREMIX 50 ML IV SCH ×2 (05:11→12:12)
[2016-05-16] MEDS: HEPARIN SODIUM - SQ 10,000 UNITS/ML VIAL SQ SCH ×2 (05:11→15:43)
[2016-05-16] MEDS: ACETAMINOPHEN/HYDROcodone 325 MG/10 MG TAB PO PRN ×3 (06:03→18:45)
[2016-05-16] MEDS: INSULIN NovoLIN REGULAR SUPPLEMENTAL SCALE SQ SCH ×4 (06:03→22:20)
[2016-05-16] MEDS: DOCUSATE SODIUM 100 MG CAP PO SCH ×2 (09:00→21:00)
[2016-05-16] MEDS: GABAPENTIN 100 MG CAP PO SCH ×2 (09:00→22:19)
[2016-05-16] MEDS: SODIUM CHLORIDE 0.9% FLUSH 5 ML FLUSH FLUSH SCH ×2 (09:33→22:19)
[2016-05-16] MEDS: CALCITRIOL 0.25 MCG CAP PO SCH (09:34)
[2016-05-16] MEDS: FLUoxetine HCL 20 MG CAP PO SCH (09:34)
[2016-05-16] MEDS: LISINOPRIL 20 MG TAB PO SCH ×2 (09:34→22:19)
[2016-05-16] MEDS: SEVELAMER CARBONATE 800 MG TAB PO SCH ×3 (09:34→17:23)
[2016-05-16] MEDS: amLODIPine BESYLATE 5 MG TAB PO SCH ×2 (09:34→22:18)
[2016-05-16] MEDS: ASPIRIN EC 81 MG TABEC PO SCH (09:34)
[2016-05-16] MEDS: ATENOLOL 50 MG TAB PO SCH ×2 (09:34→22:18)
--- NOTE | 2016-05-16 10:22 | HHI.PR ---
Subjective Remarks This is a pleasant 55 y/o Female who came to Emergency room as we know she has Hypertension DM II, Hyperlipidemia, Chronic back pain, ESRD on Friday, and Friday , presents to the emergency department for evaluation of worsening abdominal wound. The wound worsened for the last six weeks, she has Wound care by Doctor Madden who performed I and D, on multiple opportunities, has wound care twice a day with packing in place, is been feeling weaker, increased drainage and Pain from the wound, as per Doctor Madden recommended Surgical management for Surgical debridement, She denies any fever, chills, nausea, vomiting, chest pain , shortness of breath. Stable seen in her bedroom in the presence of her son, also discussed with nurse Miss Shields status post glaucoma specialist consult probable I and D. Objective Vital Signs Date Time Temp Pulse Resp B/P Pulse Ox O2 Delivery O2 Flow Rate FiO2 05/16/16 09:30 Room Air 05/16/16 08:09 64 05/16/16 08:07 98.9 60 18 121/50 95 05/16/16 07:10 18 05/16/16 04:00 98.4 63 20 116/44 96 05/16/16 00:49 98.0 62 20 122/51 96 05/15/16 20:41 97.9 64 20 129/57 96 05/15/16 20:00 Room Air 05/15/16 20:00 64 05/15/16 17:27 95 21 05/15/16 16:00 98.4 63 20 100/53 99 05/15/16 12:00 98.0 61 18 113/59 95 I/O 05/15/16 05/15/16 05/15/16 05/16/16 05/16/16 05/16/16 07:00 15:00 23:00 07:00 15:00 23:00 Intake Total 120 ml 480 ml 0 ml 500 ml Output Total 3000 ml Balance -2880 ml 480 ml 0 ml 500 ml Intake Oral 120 ml 480 ml 500 ml IV Total 0 ml Output Urine Total 0 ml Hemodialysis 3000 ml # Voids 2 0 # Bowel Movements 1 0 Result Diagram: 05/15/16 0400 05/15/16 0400 Imaging No Imaging studies performed. Procedures No procedures performed to the patient. Other Results Laboratory Tests Test 05/14/16 05/14/16 05/14/167/17 12:47 13:00 13:14 16:11 Differential Total Cells 100 Counted Neutrophils % (Manual) 73 % Band Neutrophils % 18 % Lymphocytes % 8 % Monocytes % 1 % Neutrophils # (Manual) 17.7 TH/MM3 Toxic Vacuolation PRESENT Platelet Estimate HIGH Platelet Morphology Comment NORMAL Acanthocytes OCC Prothrombin Time 13.1 SEC Prothromb Time International 1.2 RATIO Ratio Activated Partial 39.6 SEC Thromboplast Time Blood Type O POSITIVE Antibody Screen NEGATIVE Crossmatch Leukocyte-Reduced Red Blood Cells Blood Bank Comment Lactic Acid Level 1.3 mmol/L Test 05/15/16 04:00 White Blood Count 12.1 TH/MM3 Red Blood Count 2.97 MIL/MM3 Hemoglobin 7.2 GM/DL Hematocrit 22.2 % Mean Corpuscular Volume 74.9 FL Mean Corpuscular Hemoglobin 24.3 PG Mean Corpuscular Hemoglobin 32.4 % Concent Red Cell Distribution Width 20.2 % Platelet Count 424 TH/MM3 Mean Platelet Volume 6.6 FL Neutrophils (%) (Auto) 81.6 % Lymphocytes (%) (Auto) 10.1 % Monocytes (%) (Auto) 6.9 % Eosinophils (%) (Auto) 0.7 % Basophils (%) (Auto) 0.7 % Neutrophils # (Auto) 9.9 TH/MM3 Lymphocytes # (Auto) 1.2 TH/MM3 Monocytes # (Auto) 0.8 TH/MM3 Eosinophils # (Auto) 0.1 TH/MM3 Basophils # (Auto) 0.1 TH/MM3 CBC Comment AUTO DIFF Differential Comment AUTO DIFF CONFIRMED Sodium Level 134 MEQ/L Potassium Level 4.2 MEQ/L Chloride Level 97 MEQ/L Carbon Dioxide Level 23.2 MEQ/L Anion Gap 14 MEQ/L Blood Urea Nitrogen 48 MG/DL Creatinine 5.67 MG/DL Estimat Glomerular Filtration 8 ML/MIN Rate Random Glucose 163 MG/DL Calcium Level 7.8 MG/DL Phosphorus Level 5.6 MG/DL Total Bilirubin 0.6 MG/DL Direct Bilirubin 0.2 MG/DL Indirect Bilirubin 0.4 MG/DL Aspartate Amino Transf 25 U/L (AST/SGOT) Alanine Aminotransferase 10 U/L (ALT/SGPT) Alkaline Phosphatase 194 U/L Total Protein 6.9 GM/DL Albumin 1.5 GM/DL Objective Remarks GENERAL: Morbidly obese female patient in no acute distress. SKIN: Warm and dry. The patient has an open wound to her right lower abdomen/ pannus. The wound is approximately 8 cm in length, 12 cm in width and approximately 4 cm deep. There is exposed adipose tissue with malodorous drainage and surrounding erythema. HEAD: Normocephalic and atraumatic. EYES: No injection, drainage, or hyphema noted. PERRLA. EOMI. ENT: No nasal drainage noted. Oropharynx is clear. NECK: Supple and the trachea is midline. CARDIOVASCULAR: Regular rate and rhythm. RESPIRATORY: Breath sounds are equal bilaterally with no accessory muscle use, wheezing, rhonchi, or crackles. GASTROINTESTINAL: Abdomen is soft, non-tender, and nondistended. MUSCULOSKELETAL: No obvious deformities, swelling, cyanosis, or ecchymosis is present throughout the upper and lower extremities. NEUROLOGICAL: Awake, alert, and oriented. Normal speech and gait. Cranial nerves are grossly intact. Medications and IVs Current Medications Medications (Trade) Dose Ordered Sig/Soren Route Start Time Stop Time Status Last Admin (Norvasc) 5 mg BID PO 05/14/16 21:00 05/16/16 09:34 (Ecotrin Ec) 81 mg DAILY PO 05/15/16 09:00 05/16/16 09:34 (Tenormin) 50 mg BID PO 05/14/16 21:00 05/16/16 09:34 (Lipitor) 80 mg HS PO 05/14/16 21:00 05/15/16 21:35 (Prinivil) 20 mg BID PO 05/14/16 21:00 05/16/16 09:34 (Rocaltrol) 0.5 mcg DAILY PO 05/15/16 09:00 05/16/16 09:34 (PROzac) 20 mg DAILY PO 05/15/16 09:00 05/16/16 09:34 (Neurontin) 100 mg BID PO 05/14/16 21:00 05/16/16 09:00 ([place] 10-325 Mg) 1 tab Q6H PRN PO 05/14/16 14:15 05/16/16 06:03 (Synthroid) 300 mcg DAILY@0600 PO 05/15/16 06:00 05/16/16 05:11 (Antivert) 25 mg TID PRN PO 05/14/16 14:15 (Renvela) 800 mg TID PO 05/14/16 18:00 05/16/16 09:34 (Zanaflex) 4 mg TID PRN PO 05/14/16 14:15 (NS Flush) 2 ml UNSCH PRN FLUSH 05/14/16 14:30 (NS Flush) 2 ml BID FLUSH 05/14/16 21:00 05/16/16 09:33 (Tylenol) 650 mg Q4H PRN PO 05/14/16 14:30 (Zofran Inj) 4 mg Q6H PRN IVP 05/14/16 14:30 (Reglan Inj) 5 mg Q6H PRN IV PUSH 05/14/16 14:30 (Dulcolax Supp) 10 mg DAILY PRN [place] 05/14/16 14:30 (Colace) 100 mg Q12HR PO 05/14/16 21:00 05/15/16 09:29 (Heparin Inj) 5,000 units Q12H SQ 05/14/16 16:00 05/16/16 05:11 Naloxone HCl 0.4 mg 0.4 mg UNSCH PRN IV 05/14/16 14:30 Piperacillin Sod/ Tazobactam Sod 50 ml @ 100 mls/hr Q8H IV 05/14/16 22:00 05/16/16 05:11 (NS 1000 ml Inj) 1,000 ml @ 0 mls/hr Q0M PRN IV 05/14/16 14:54 Heparin Sodium (Porcine) 8000 units 8,000 units UNSCH PRN IVF 05/14/16 15:00 Sodium Chloride 1,000 ml @ 200 mls/hr Q5H PRN IV 05/14/16 14:54 (NS 1000 ml Inj) 1,000 ml @ 0 mls/hr Q0M PRN IV 05/14/16 14:54 (Mannitol Inj) 12.5 gm UNSCH PRN IV 05/14/16 15:00 (Albumin 25% Inj) 25 gm UNSCH PRN IV 05/14/16 15:00 (NS Flush) 5 ml UNSCH PRN IVF 05/14/16 15:00 (Heparin Inj) UNSCH PRN .XX 05/14/16 15:00 (Gentamicin (Dialysis) Inj) 20 mg UNSCH PRN IV 05/14/16 15:00 (Zofran Inj) 4 mg UNSCH PRN IV 05/14/16 15:00 (Tylenol) 650 mg UNSCH PRN PO 05/14/16 15:00 05/16/16 09:36 (Benadryl) 25 mg UNSCH PRN PO 05/14/16 15:00 (Nitrostat Sl) 0.4 mg UNSCH PRN SL 05/14/16 15:00 (Catapres) 0.1 mg UNSCH PRN PO 05/14/16 15:00 (Epogen Inj) 10,000 units UNSCH PRN IV 05/14/16 15:00 (Gelfoam 12 Mm/7 Mm Top) 1 foam UNSCH PRN TOP 05/14/16 15:00 (D50w (Vial) Inj) 25 ml UNSCH PRN IV PUSH 05/14/16 18:45 (Glucagon Inj) 1 mg UNSCH PRN OTHER 05/14/16 18:45 A/P Problem List: (1) Type II diabetes mellitus with neurological manifestations, uncontrolled ICD Code: E11.49 (2) End stage renal disease on dialysis ICD Code: N18.6 (3) Anemia in chronic kidney disease (CKD) ICD Code: N18.9 (4) Open wound of abdomen ICD Code: S31.109A Assessment and Plan 1. Sepsis/Abdominal pannus wound cellulitis and ulcer, consulted General Surgery , started on Vancomycin and Zosyn and follow blood cultures and wound culture as per Emergency Medicine specialist will need Intensive Care management. followed by ID specialist with Diagnosis of Large Open wound abdominal pannus Right with surrounding cellulitis recommended to continue Zosyn and Vancomycin. Positive wound culture for Pseudomonas Aeruginosa. 2. Morbid Obesity strongly recommended diet and exercise, weight loss warranted. 3. Hypertension controlled will continue home medicines 4. DM II continue sliding scale. 5. Hyperlipidemia continue home medicines 6. ESRD on Hemodialysis and Friday, at this time going for HD 7. chronic low back pain and chronic pain syndrome DVT prophylaxis with Heparin every 12 hours. Code Status Full Code. Discharge Planning once cleared by Specialists. Problem Qualifiers (1) Open wound of abdomen: Qualified Code: S31.109A - Open wound of abdomen, initial encounter Ken Franks MD May 16, 2016 10:22
--- NOTE | 2016-05-16 11:55 | PD.PLAS.PN ---
Subjective Remarks Patient jerome received 3 units of blood so far, more alert and stable. Need to get latest Hb level - tp get it approx 9 to 10 preoperatively as she is likely to lose a fair amount of blood while excising all the infected necrotic areas - due to the severe inflammation in the area. Will try to schedule sometimes tomorrow. Vital Signs Date Time Temp Pulse Resp B/P Pulse Ox O2 Delivery O2 Flow Rate FiO2 05/16/16 09:30 Room Air 05/16/16 08:09 64 05/16/16 08:07 98.9 60 18 121/50 95 05/16/16 07:10 18 05/16/16 04:00 98.4 63 20 116/44 96 05/16/16 00:49 98.0 62 20 122/51 96 05/15/16 20:41 97.9 64 20 129/57 96 05/15/16 20:00 Room Air 05/15/16 20:00 64 05/15/16 17:27 95 21 05/15/16 16:00 98.4 63 20 100/53 99 05/15/16 12:00 98.0 61 18 113/59 95 I/O 05/15/16 05/15/16 05/15/16 05/16/16 05/16/16 05/16/16 07:00 15:00 23:00 07:00 15:00 23:00 Intake Total 120 ml 480 ml 0 ml 500 ml Output Total 3000 ml Balance -2880 ml 480 ml 0 ml 500 ml Intake Oral 120 ml 480 ml 500 ml IV Total 0 ml Output Urine Total 0 ml Hemodialysis 3000 ml # Voids 2 0 # Bowel Movements 1 0 Date/Time Procedure Status Source Growth 05/14/16 12:45 Aerobic Blood Culture - Preliminary Resulted Blood Peripheral NO GROWTH IN 2 DAYS 05/14/16 12:45 Anaerobic Blood Culture - Preliminary Resulted Blood Peripheral NO GROWTH IN 2 DAYS 05/14/16 12:40 Gram Stain - Final Complete Wound Abdomen 05/14/16 12:40 Wound Culture - Final Complete Pseudomonas Aeruginosa 05/14/16 12:34 Gram Stain Received Wound Abdomen Pending 05/14/16 12:34 Wound Culture Received Wound Abdomen Pending Result Diagram: 05/15/16 0400 05/15/16399 Bob Johnson MD May 16, 2016 11:55
--- NOTE | 2016-05-16 12:14 | HHI.IDPN ---
Subjective Subjective Remarks Notes reviewed No fever Plastic surgery notes reviewed C/S with PSAE, and possible anerobes Plans for debridement once Hgb higher Antibiotics Zosyn Vancomycin Lines PIV Past Medical History Osteoarthritis Morbid obesity CAD status post Cardiac Catheterization and stent placement Hyperlipidemia CHF DM II ESRD on Hemodialysis T Th S Hypertension Spinal stenosis REESE Hypothyroidism. Past Surgical History Lap Band 2004 Laparoscopic Cholecystectomy 1996 PCI and stent placement June 2012 Dialysis Catheter placement on right C Section x 1 LUE AV fistula Allergies: Coded Allergies: Biaxin (Verified Allergy, Severe, swelling of face, 05/10/16) Iron (Verified Adverse Reaction, Severe, Constipation, 05/10/16) Objective . Vital Signs Date Time Temp Pulse Resp B/P Pulse Ox O2 Delivery O2 Flow Rate FiO2 05/16/16 09:30 Room Air 05/16/16 08:09 64 05/16/16 08:07 98.9 60 18 121/50 95 05/16/16 07:10 18 05/16/16 04:00 98.4 63 20 116/44 96 05/16/16 00:49 98.0 62 20 122/51 96 05/15/16 20:41 97.9 64 20 129/57 96 05/15/16 20:00 Room Air 05/15/16 20:00 64 05/15/16 17:27 95 21 05/15/16 16:00 98.4 63 20 100/53 99 05/15/16 05/15/16 05/16/16 15:00 23:00 07:00 Intake Total 480 ml 0 ml 500 ml Balance 480 ml 0 ml 500 ml Intake Oral 480 ml 500 ml IV Total 0 ml # Voids 2 0 # Bowel Movements 1 0 . Laboratory Tests Test 05/14/16 05/15/16 12:47 04:00 White Blood Count 19.4 TH/MM3 12.1 TH/MM3 Red Blood Count 2.99 MIL/MM3 2.97 MIL/MM3 Hemoglobin 6.5 GM/DL 7.2 GM/DL Hematocrit 21.7 % 22.2 % Mean Corpuscular Volume 72.6 FL 74.9 FL Mean Corpuscular Hemoglobin 21.8 PG 24.3 PG Mean Corpuscular Hemoglobin 30.1 % 32.4 % Concent Red Cell Distribution Width 20.0 % 20.2 % Platelet Count 612 TH/MM3 424 TH/MM3 Mean Platelet Volume 6.9 FL 6.6 FL Neutrophils (%) (Auto) 89.8 % 81.6 % Lymphocytes (%) (Auto) 4.4 % 10.1 % Monocytes (%) (Auto) 5.2 % 6.9 % Eosinophils (%) (Auto) 0.2 % 0.7 % Basophils (%) (Auto) 0.4 % 0.7 % Neutrophils # (Auto) 17.4 TH/MM3 9.9 TH/MM3 Lymphocytes # (Auto) 0.9 TH/MM3 1.2 TH/MM3 Monocytes # (Auto) 1.0 TH/MM3 0.8 TH/MM3 Eosinophils # (Auto) 0.0 TH/MM3 0.1 TH/MM3 Basophils # (Auto) 0.1 TH/MM3 0.1 TH/MM3 CBC Comment AUTO DIFF AUTO DIFF Differential Total Cells 100 Counted Neutrophils % (Manual) 73 % Band Neutrophils % 18 % Lymphocytes % 8 % Monocytes % 1 % Neutrophils # (Manual) 17.7 TH/MM3 Differential Comment FINAL DIFF AUTO DIFF MANUAL CONFIRMED Toxic Vacuolation PRESENT Platelet Estimate HIGH Platelet Morphology Comment NORMAL Acanthocytes OCC Laboratory Tests Test 05/14/16 05/14/16 05/15/16 12:47 16:11 04:00 Sodium Level 129 MEQ/L 134 MEQ/L Potassium Level 5.5 MEQ/L 4.2 MEQ/L Chloride Level 92 MEQ/L 97 MEQ/L Carbon Dioxide Level 20.7 MEQ/L 23.2 MEQ/L Anion Gap 16 MEQ/L 14 MEQ/L Blood Urea Nitrogen 71 MG/DL 48 MG/DL Creatinine 8.34 MG/DL 5.67 MG/DL Estimat Glomerular Filtration 5 ML/MIN 8 ML/MIN Rate Random Glucose 213 MG/DL 163 MG/DL Lactic Acid Level 2.1 mmol/L 1.3 mmol/L Calcium Level 7.9 MG/DL 7.8 MG/DL Total Bilirubin 0.5 MG/DL 0.6 MG/DL Aspartate Amino Transf 41 U/L 25 U/L (AST/SGOT) Alanine Aminotransferase 19 U/L 10 U/L (ALT/SGPT) Alkaline Phosphatase 190 U/L 194 U/L Total Protein 8.6 GM/DL 6.9 GM/DL Albumin 1.9 GM/DL 1.5 GM/DL Phosphorus Level 5.6 MG/DL Direct Bilirubin 0.2 MG/DL Indirect Bilirubin 0.4 MG/DL Microbiology Date/Time Procedure Status Source Growth 3/7/17 12:34 Gram Stain Received Wound Abdomen Pending 05/14/16 12:34 Wound Culture Received Wound Abdomen Pending 05/14/16 12:40 Aerobic Blood Culture - Preliminary Resulted Blood Peripheral NO GROWTH IN 2 DAYS 05/14/16 12:40 Anaerobic Blood Culture - Preliminary Resulted Blood Peripheral NO GROWTH IN 2 DAYS 05/14/16 12:40 Gram Stain - Final Complete Wound Abdomen 05/14/16 12:40 Wound Culture - Final Complete Pseudomonas Aeruginosa 05/14/16 12:45 Aerobic Blood Culture - Preliminary Resulted Blood Peripheral NO GROWTH IN 2 DAYS 05/14/16 12:45 Anaerobic Blood Culture - Preliminary Resulted Blood Peripheral NO GROWTH IN 2 DAYS Physical Exam GENERAL: awake and alert, NAD SKIN: Cool and dry. No generalized rash. HEAD: Atraumatic. Normocephalic. No temporal or scalp tenderness. EYES: [place] conjunctivae. No scleral icterus. No injection or drainage. ENT: Nose without bleeding, or purulent drainage. Moist oral mucosa. T NECK: Supple, nontender, no meningeal signs. Permacath is tunnelled to LIJ, site ok CARDIOVASCULAR: Regular rate and rhythm. Soft heart sounds. RESPIRATORY: Clear to auscultation. Breath sounds equal bilaterally. Decreased BS at bases GASTROINTESTINAL: Abdomen is obese, has large pannus, and there is a large open wound about 10 in x 6 in with black eschar and necrotic slough with fould odor. There is surrounding cellulitis that goes to the R groin area . Tender around the wound with induration. No guarding, no rebound. (+) BS normoactive. MUSCULOSKELETAL: BLE has leather texture brown color of her whole leg and feet. Warm, no cyanosis. No calf tenderness. NEUROLOGICAL: Awake and alert. Cranial nerves II through XII intact. Motor and sensory grossly within normal limits. Normal speech. PSYCH: Normal affect, clam and cooperative LINE: Permacath with no evidence of infection Assessment & Plan Remarks IMPRESSION Large open necrotic, infected wound, abdominal pannus R, with surrounding cellulitis Leukocytosis due to the infected wound, better ESRD on HD Morbid obesity Anemia RECOMMENDATION Plans for debridement per plastics Wound care Continue Zosyn and Vanco Follow C/S Monitor progress Will not anticipate a long course of IV Abx - once debridement done and cellulitis has resolved, then will D/C Abx and continue with just local wound care I will be OOT 05/17-05/21 Other ID MD covering for me Please call covering ID if with any questions regarding culture results or antibiotics Shea Zavala MD May 16, 2016 12:14
[2016-05-16] MEDS: GENTAMICIN SULFATE (DIALYSIS USE ONLY) 20 MG/2 ML VIAL IV PRN (16:22)
[2016-05-16] MEDS: HEPARIN SODIUM - IV 10,000 UNITS/10 ML VIAL PRN (16:22)
[2016-05-16] MEDS: EPOETIN ALFA 10,000 UNITS/ML VIAL IV PRN (16:22)
--- NOTE | 2016-05-16 17:20 | HHI.NPPN ---
Subjective History of Present Illness 55-year-old female known to me from before with past medical history of diabetes mellitus, history of morbid obesity, end-stage renal disease on hemodialysis three times per week, history of chronic anemia, congestive heart failure, spinal stenosis, chronic back pain, hypothyroidism who came to the hospital with complaint of worsening lower abdominal wound. I was called to see the patient for the management of dialysis. The patient has been on hemodialysis Friday, and Friday. Additional Remarks Patient is alert, seen after HD, no SOB, has mild abd. discomfort. Review of Systems General Constitutional: Fatigue Respiratory Lungs: SOB Cardiovascular Cardiac: GRIFFIN Objective Data Data 05/15/16 05/16/16 19:00 07:00 Intake Total 480 ml 500 ml Balance 480 ml 500 ml Intake Oral 480 ml 500 ml IV Total 0 ml # Voids 2 0 # Bowel Movements 1 0 Vital Signs Date Time Temp Pulse Resp B/P Pulse Ox O2 Delivery O2 Flow Rate FiO2 05/16/16 12:07 98.1 64 18 130/58 95 05/16/16 09:30 Room Air 05/16/16 08:09 64 05/16/16 08:07 98.9 60 18 121/50 95 05/16/16 07:10 18 05/16/16 04:00 98.4 63 20 116/44 96 05/16/16 00:49 98.0 62 20 122/51 96 05/15/16 20:41 97.9 64 20 129/57 96 05/15/16 20:00 Room Air 05/15/16 20:00 64 05/15/16 17:27 95 21 -: 05/15/16 0400 05/15/16 0400 Physical Exam General Appearance: No Acute Distress, Comfortable Eyes Eye Exam: Pupils Equal Throat Throat Exam: Oral Mucosa [place] & Moist Neck Neck Exam: Neck Supple Pulmonary Resp Exam: Breath Sounds Equal, Crackles, Decreased Bases, Diminished Breath Sounds Gastrointestinal/Abdomen GI Exam: Soft, Non-Tender, Distended Extremeties Extremities Exam: Moderate Edema, Pitting Edema, Dependent Edema Neurologic Neuro Exam: Alert, Awake, Oriented Psychiatric Psych Exam: Appropriate Responses Assessment/Plan Assessment Summary: Anemia of CKD, Hypertension, End Stage Renal Disease Problem List: (1) Anemia in chronic kidney disease (CKD) (2) Open wound of abdomen (3) Chronic stasis dermatitis (4) End stage kidney disease Plan Patient is on Zosyn, BP is stable, afebrile. Seen by plastic surgery. Debridement once Hgb. is better. HD done and 6 liters removed. Hgb. was 7.2, will transfuse 2 units. Lasix between the transfusion. Follow Hgb. Debridement once Hgb. is better. Problem Qualifiers (1) Open wound of abdomen: Qualified Code: S31.109A - Open wound of abdomen, initial encounter Valentin Jimenez MD May 16, 2016 17:20
[2016-05-16] MEDS ORDERED: FUROSEMIDE 40 MG/4 ML VIAL IV PUSH SCH (17:30)
[2016-05-16] MEDS ORDERED: DIATRIZOATE MEGLUM/DIATRIZOATE SOD 9 ML CUP PO ONE (18:45)
[2016-05-16] MEDS: ATORVASTATIN 80 MG TAB PO SCH (22:18)
[2016-05-16] MEDS ORDERED: LORazepam 2 MG/ML VIAL IV PUSH ONE (23:00)
[2016-05-17] VITALS (10 sets, daily range): BP systolic 126–178; BP diastolic 58–79; PULSE 55–67; RESP 16–20; TEMP 97.7–98.9; O2SAT 91–99
[2016-05-17] MEDS: PIPERACIL-TAZO 2.25 GM PREMIX 50 ML IV SCH ×4 (01:01→17:47)
[2016-05-17] MEDS: HEPARIN SODIUM - SQ 10,000 UNITS/ML VIAL SQ SCH (03:09)
[2016-05-17] MEDS: LEVOTHYROXINE SODIUM 150 MCG TAB PO SCH (06:40)
[2016-05-17] MEDS: ACETAMINOPHEN/HYDROcodone 325 MG/10 MG TAB PO PRN ×3 (06:41→20:00)
[2016-05-17] MEDS: INSULIN NovoLIN REGULAR SUPPLEMENTAL SCALE SQ SCH ×3 (06:41→22:32)
--- NOTE | 2016-05-17 07:45 | HHI.PR ---
Subjective Remarks This is a pleasant 55 y/o Female who came to Emergency room as we know she has Hypertension DM II, Hyperlipidemia, Chronic back pain, ESRD on Friday, and Friday , presents to the emergency department for evaluation of worsening abdominal wound. The wound worsened for the last six weeks, she has Wound care by Doctor Maryanne who performed I and D, on multiple opportunities, has wound care twice a day with packing in place, is been feeling weaker, increased drainage and Pain from the wound, as per Doctor Maryanne recommended Surgical management for Surgical debridement, Continue Hemodialysis on and Friday, seen by peer support specialist and she will go for debridement today with Doctor Bob Johnson. Objective Vital Signs Date Time Temp Pulse Resp B/P Pulse Ox O2 Delivery O2 Flow Rate FiO2 05/17/16 05:29 97.7 63 18 178/79 93 05/17/16 03:11 98.5 61 16 162/71 92 05/17/16 02:55 98.9 62 16 160/70 91 05/17/16 01:10 98.7 62 18 145/68 92 05/17/16 00:00 98.7 62 18 145/68 92 05/16/16 22:27 98.5 68 16 162/70 93 05/16/16 22:07 99.0 63 18 164/73 94 05/16/16 20:45 Room Air 05/16/16 20:12 70 05/16/16 20:00 98.6 72 16 155/69 93 05/16/16 20:00 96 21 05/16/16 15:30 98.4 62 18 132/56 95 05/16/16 12:07 98.1 64 18 130/58 95 05/16/16 09:30 Room Air 05/16/16 08:09 64 05/16/16 08:07 98.9 60 18 121/50 95 I/O 05/16/16 05/16/16 05/16/16 05/17/16 05/17/16 05/17/16 07:00 15:00 23:00 07:00 15:00 23:00 Intake Total 500 ml 384 ml 290 ml 120 ml Output Total 6000 ml Balance 500 ml 384 ml -5710 ml 120 ml Intake Oral 500 ml 280 ml 290 ml 120 ml IV Total 104 ml Hemodialysis 6000 ml # Voids 0 4 0 1 # Bowel Movements 0 1 0 0 Result Diagram: 05/15/16 0400 05/15/16 0400 Imaging No Imaging studies performed Procedures No procedures performed to the patient. Other Results Laboratory Tests Test 05/14/16 05/14/16 05/14/16 05/14/16 12:47 13:00 13:14 16:11 Differential Total Cells 100 Counted Neutrophils % (Manual) 73 % Band Neutrophils % 18 % Lymphocytes % 8 % Monocytes % 1 % Neutrophils # (Manual) 17.7 TH/MM3 Toxic Vacuolation PRESENT Platelet Estimate HIGH Platelet Morphology Comment NORMAL Acanthocytes OCC Prothrombin Time 13.1 SEC Prothromb Time International 1.2 RATIO Ratio Activated Partial 39.6 SEC Thromboplast Time Antibody Screen NEGATIVE Lactic Acid Level 1.3 mmol/L Test 05/15/16 05/16/16 04:00 18:20 White Blood Count 12.1 TH/MM3 Red Blood Count 2.97 MIL/MM3 Hemoglobin 7.2 GM/DL Hematocrit 22.2 % Mean Corpuscular Volume 74.9 FL Mean Corpuscular Hemoglobin 24.3 PG Mean Corpuscular Hemoglobin 32.4 % Concent Red Cell Distribution Width 20.2 % Platelet Count 424 TH/MM3 Mean Platelet Volume 6.6 FL Neutrophils (%) (Auto) 81.6 % Lymphocytes (%) (Auto) 10.1 % Monocytes (%) (Auto) 6.9 % Eosinophils (%) (Auto) 0.7 % Basophils (%) (Auto) 0.7 % Neutrophils # (Auto) 9.9 TH/MM3 Lymphocytes # (Auto) 1.2 TH/MM3 Monocytes # (Auto) 0.8 TH/MM3 Eosinophils # (Auto) 0.1 TH/MM3 Basophils # (Auto) 0.1 TH/MM3 CBC Comment AUTO DIFF Differential Comment AUTO DIFF CONFIRMED Sodium Level 134 MEQ/L Potassium Level 4.2 MEQ/L Chloride Level 97 MEQ/L Carbon Dioxide Level 23.2 MEQ/L Anion Gap 14 MEQ/L Blood Urea Nitrogen 48 MG/DL Creatinine 5.67 MG/DL Estimat Glomerular Filtration 8 ML/MIN Rate Random Glucose 163 MG/DL Calcium Level 7.8 MG/DL Phosphorus Level 5.6 MG/DL Total Bilirubin 0.6 MG/DL Direct Bilirubin 0.2 MG/DL Indirect Bilirubin 0.4 MG/DL Aspartate Amino Transf 25 U/L (AST/SGOT) Alanine Aminotransferase 10 U/L (ALT/SGPT) Alkaline Phosphatase 194 U/L Total Protein 6.9 GM/DL Albumin 1.5 GM/DL Blood Type O POSITIVE Crossmatch Leukocyte-Reduced Red Blood Cells Blood Bank Comment Objective Remarks GENERAL: Morbidly obese female patient in no acute distress. SKIN: Warm and dry. The patient has an open wound to her right lower abdomen/ pannus. The wound is approximately 8 cm in length, 12 cm in width and approximately 4 cm deep. There is exposed adipose tissue with malodorous drainage and surrounding erythema. HEAD: Normocephalic and atraumatic. EYES: No injection, drainage, or hyphema noted. PERRLA. EOMI. ENT: No nasal drainage noted. Oropharynx is clear. NECK: Supple and the trachea is midline. CARDIOVASCULAR: Regular rate and rhythm. RESPIRATORY: Breath sounds are equal bilaterally with no accessory muscle use, wheezing, rhonchi, or crackles. GASTROINTESTINAL: Abdomen is soft, non-tender, and nondistended. MUSCULOSKELETAL: No obvious deformities, swelling, cyanosis, or ecchymosis is present throughout the upper and lower extremities. NEUROLOGICAL: Awake, alert, and oriented. Normal speech and gait. Cranial nerves are grossly intact. Medications and IVs Current Medications Medications (Trade) Dose Ordered Sig/Soren Route Start Time Stop Time Status Last Admin (Norvasc) 5 mg BID PO 05/14/16 21:00 05/16/16 22:18 (Ecotrin Ec) 81 mg DAILY PO 05/15/16 09:00 05/16/16 09:34 (Tenormin) 50 mg BID PO 05/14/16 21:00 05/16/16 22:18 (Lipitor) 80 mg HS PO 05/14/16 21:00 05/16/16 22:18 (Prinivil) 20 mg BID PO 05/14/16 21:00 05/16/16 22:19 (Rocaltrol) 0.5 mcg DAILY PO 05/15/16 09:00 05/16/16 09:34 (PROzac) 20 mg DAILY PO 05/15/16 09:00 05/16/16 09:34 (Neurontin) 100 mg BID PO 05/14/16 21:00 05/16/16 22:19 ([place]over 10-325 Mg) 1 tab Q6H PRN PO 05/14/16 14:15 05/17/16 06:41 (Synthroid) 300 mcg DAILY@0600 PO 05/15/16 06:00 05/17/16 06:40 (Antivert) 25 mg TID PRN PO 05/14/16 14:15 (Renvela) 800 mg TID PO 05/14/16 18:00 05/16/16 17:23 (Zanaflex) 4 mg TID PRN PO 05/14/16 14:15 (NS Flush) 2 ml UNSCH PRN FLUSH 05/14/16 14:30 (NS Flush) 2 ml BID FLUSH 05/14/16 21:00 05/16/16 22:19 (Tylenol) 650 mg Q4H PRN PO 05/14/16 14:30 (Zofran Inj) 4 mg Q6H PRN IVP 05/14/16 14:30 (Reglan Inj) 5 mg Q6H PRN IV PUSH 05/14/16 14:30 (Dulcolax Supp) 10 mg DAILY PRN PA 05/14/16 14:30 (Colace) 100 mg Q12HR PO 05/14/16 21:00 05/15/16 09:29 (Heparin Inj) 5,000 units Q12H SQ 05/14/16 16:00 05/17/16 03:09 Naloxone HCl 0.4 mg 0.4 mg UNSCH PRN IV 05/14/16 14:30 (NS 1000 ml Inj) 1,000 ml @ 0 mls/hr Q0M PRN IV 05/14/16 14:54 Heparin Sodium (Porcine) 8000 units 8,000 units UNSCH PRN IVF 05/14/16 15:00 Sodium Chloride 1,000 ml @ 200 mls/hr Q5H PRN IV 05/14/16 14:54 (NS 1000 ml Inj) 1,000 ml @ 0 mls/hr Q0M PRN IV 05/14/16 14:54 (Mannitol Inj) 12.5 gm UNSCH PRN IV 05/14/16 15:00 (Albumin 25% Inj) 25 gm UNSCH PRN IV 05/14/16 15:00 (NS Flush) 5 ml UNSCH PRN IVF 05/14/16 15:00 (Heparin Inj) UNSCH PRN .XX 05/14/16 15:00 05/16/16 16:22 (Gentamicin (Dialysis) Inj) 20 mg UNSCH PRN IV 05/14/16 15:00 05/16/16 16:22 (Zofran Inj) 4 mg UNSCH PRN IV 05/14/16 15:00 (Tylenol) 650 mg UNSCH PRN PO 05/14/16 15:00 05/16/16 09:36 (Benadryl) 25 mg UNSCH PRN PO 05/14/16 15:00 (Nitrostat Sl) 0.4 mg UNSCH PRN SL 05/14/16 15:00 (Catapres) 0.1 mg UNSCH PRN PO 05/14/16 15:00 (Epogen Inj) 10,000 units UNSCH PRN IV 05/14/16 15:00 05/16/16 16:22 (Gelfoam 12 Mm/7 Mm Top) 1 foam UNSCH PRN TOP 05/14/16 15:00 (D50w (Vial) Inj) 25 ml UNSCH PRN IV PUSH 05/14/16 18:45 (Glucagon Inj) 1 mg UNSCH PRN OTHER 05/14/16 18:45 (Dakin'S 0.125% Soln) 120 ml DAILY OTHER 05/17/16 15:00 (Santyl Oint) 1 applic DAILY EXT 05/17/16 15:00 Diatrizoate Meglum/ Diatrizoate Sod 18 ml 18 ml ONCE ONCE PO 05/17/16 08:00 05/17/16 08:01 (Zosyn 2.25 Gm Premix) 50 ml @ 100 mls/hr Q8H IV 05/17/16 01:00 05/17/16 01:01 A/P Problem List: (1) Type II diabetes mellitus with neurological manifestations, uncontrolled ICD Code: E11.49 (2) End stage renal disease on dialysis ICD Code: N18.6 (3) Anemia in chronic kidney disease (CKD) ICD Code: N18.9 (4) Open wound of abdomen ICD Code: S31.109A Assessment and Plan 1. Sepsis/Abdominal pannus wound cellulitis and ulcer, consulted General Surgery , started on Vancomycin and Zosyn and follow blood cultures and wound cultures negative, ID specialsit following, she will have debridement this afternoon with calibration specialist Doctor Bob Johnson. 2. Morbid Obesity strongly recommended diet and exercise, weight loss warranted. 3. Hypertension Mild uncontrol has PRN Clonidine. 4. DM II continue sliding scale. today will give half dose of her Long lasting insulin while NPO. Uncontrolled today. 5. Hyperlipidemia continue home medicines 6. ESRD on Hemodialysis and Friday, at this time going for HD 7. chronic low back pain and chronic pain syndrome DVT prophylaxis with Heparin every 12 hours. Code Status Full Code. Discharge Planning Once cleared by Specialists. Problem Qualifiers (1) Open wound of abdomen: Qualified Code: S31.109A - Open wound of abdomen, initial encounter Ken Franks MD May 17, 2016 07:45
[2016-05-17 07:50] LABS: HEMATOCRIT 30.3 % (35.0-46.0); MEAN CELL VOLUME 77.3 FL (80.0-100.0); MEAN CORPUSCULAR HEMOGLOBIN 24.8 PG (27.0-34.0); PLATELET COUNT 457 TH/MM3 (150-450); RED BLOOD COUNT 3.93 MIL/MM3 (4.00-5.30); WHITE BLOOD COUNT 12.5 TH/MM3 (4.0-11.0)
[2016-05-17 07:53] LABS: REVIEW FLAG FINAL
[2016-05-17] MEDS ORDERED: DIATRIZOATE MEGLUM/DIATRIZOATE SOD 9 ML CUP PO ONE (08:00)
[2016-05-17] MEDS: DOCUSATE SODIUM 100 MG CAP PO SCH ×2 (09:00→21:00)
[2016-05-17] MEDS: SEVELAMER CARBONATE 800 MG TAB PO SCH ×3 (09:11→18:00)
[2016-05-17] MEDS: ATENOLOL 50 MG TAB PO SCH ×2 (09:11→21:00)
[2016-05-17] MEDS: GABAPENTIN 100 MG CAP PO SCH ×2 (09:11→22:33)
[2016-05-17] MEDS: SODIUM CHLORIDE 0.9% FLUSH 5 ML FLUSH FLUSH SCH ×2 (09:11→22:32)
[2016-05-17] MEDS: CALCITRIOL 0.25 MCG CAP PO SCH (09:11)
[2016-05-17] MEDS: FLUoxetine HCL 20 MG CAP PO SCH (09:11)
[2016-05-17] MEDS: ASPIRIN EC 81 MG TABEC PO SCH (09:11)
[2016-05-17] MEDS: LISINOPRIL 20 MG TAB PO SCH ×2 (09:11→21:00)
[2016-05-17] MEDS: amLODIPine BESYLATE 5 MG TAB PO SCH ×2 (09:12→21:00)
--- NOTE | 2016-05-17 11:26 | HHI.PR ---
Subjective Subjective Notes Pt going to OR with Dr Johnson later today. Objective Vitals/I&O Vital Signs Date Time Temp Pulse Resp B/P Pulse Ox O2 Delivery O2 Flow Rate FiO2 05/17/16 08:00 97.9 67 18 161/71 94 05/17/16 07:15 Room Air 05/16/16 20:00 21 05/15/16 08:00 2.00 Labs Laboratory Tests Test 05/16/16 05/16/16 05/17/16 18:17 18:20 06:04 Crossmatch Leukocyte-Reduced Leukocyte-Reduced Red Blood Red Blood Cells Cells Blood Bank Comment Blood Type O POSITIVE White Blood Count 12.5 Red Blood Count 3.93 Hemoglobin 9.7 Hematocrit 30.3 Mean Corpuscular Volume 77.3 Mean Corpuscular Hemoglobin 24.8 Mean Corpuscular Hemoglobin 32.0 Concent Red Cell Distribution Width 21.0 Platelet Count 457 Mean Platelet Volume 6.6 Date/Time Procedure Status Source Growth 05/14/16 12:45 Aerobic Blood Culture - Preliminary Resulted Blood Peripheral NO GROWTH IN 3 DAYS 05/14/16 12:45 Anaerobic Blood Culture - Preliminary Resulted Blood Peripheral NO GROWTH IN 3 DAYS 05/14/16 12:40 Gram Stain - Final Complete Wound Abdomen 05/14/16 12:40 Wound Culture - Final Complete Pseudomonas Aeruginosa 05/14/16 12:34 Gram Stain Received Wound Abdomen Pending 05/14/16 12:34 Wound Culture Received Wound Abdomen Pending Narrative Exam Panniculus wound dressed, left alone. It continues to be malodorous. A/P Assessment and Plan Large necrotic infected wound on R side of pannus. Dr Johnson plans debridement today. I am leaving town Today. I will be unavailable until the . I will check back on her when I return. Thank you Dr Johnson.. Silverio Matias MD May 17, 2016 11:26
[2016-05-17] MEDS ORDERED: ONDANSETRON HCL 4 MG/2 ML VIAL IV PUSH ONE (12:00)
[2016-05-17] MEDS ORDERED: NORMOSOL R INJ 1,000 ML IV ONE (12:00)
[2016-05-17] MEDS ORDERED: PROPOFOL 200 MG/20 ML AMP IV ONE (12:00)
--- NOTE | 2016-05-17 13:19 | HHI.NPPN ---
Subjective History of Present Illness 55-year-old female known to me from before with past medical history of diabetes mellitus, history of morbid obesity, end-stage renal disease on hemodialysis three times per week, history of chronic anemia, congestive heart failure, spinal stenosis, chronic back pain, hypothyroidism who came to the hospital with complaint of worsening lower abdominal wound. I was called to see the patient for the management of dialysis. The patient has been on hemodialysis Friday, and Friday. Additional Remarks Patient is alert, no SOB, has mild abd. discomfort, clinically same. Review of Systems General Constitutional: Fatigue Respiratory Lungs: SOB Cardiovascular Cardiac: GRIFFIN Objective Data Data 05/16/16 05/17/16 19:00 07:00 Intake Total 384 ml 410 ml Output Total 6000 ml Balance -5616 ml 410 ml Intake Oral 280 ml 410 ml IV Total 104 ml Hemodialysis 6000 ml # Voids 4 1 # Bowel Movements 1 0 Vital Signs Date Time Temp Pulse Resp B/P Pulse Ox O2 Delivery O2 Flow Rate FiO2 05/17/16 12:00 97.8 62 18 164/76 94 05/17/16 08:00 97.9 67 18 161/71 94 05/17/16 07:51 94 05/17/16 07:15 Room Air 05/17/16 05:29 97.7 63 18 178/79 93 05/17/16 03:11 98.5 61 16 162/71 92 05/17/16 02:55 98.9 62 16 160/70 91 05/17/16 01:10 98.7 62 18 145/68 92 05/17/16 00:00 98.7 62 18 145/68 92 05/16/16 22:27 98.5 68 16 162/70 93 05/16/16 22:07 99.0 63 18 164/73 94 05/16/16 20:45 Room Air 05/16/16 20:12 70 05/16/16 20:00 98.6 72 16 155/69 93 05/16/16 20:00 96 21 05/16/16 15:30 98.4 62 18 132/56 95 -: 05/17/16 0604 05/15/16 0400 Physical Exam General Appearance: No Acute Distress, Comfortable Eyes Eye Exam: Pupils Equal Throat Throat Exam: Oral Mucosa [place] & Moist Neck Neck Exam: Neck Supple Pulmonary Resp Exam: Breath Sounds Equal, Crackles, Decreased Bases, Diminished Breath Sounds Gastrointestinal/Abdomen GI Exam: Soft, Non-Tender, Distended Extremeties Extremities Exam: Moderate Edema, Pitting Edema, Dependent Edema Neurologic Neuro Exam: Alert, Awake, Oriented Psychiatric Psych Exam: Appropriate Responses Assessment/Plan Assessment Summary: Anemia of CKD, Hypertension, End Stage Renal Disease Problem List: (1) Anemia in chronic kidney disease (CKD) (2) Open wound of abdomen (3) Chronic stasis dermatitis (4) End stage kidney disease Plan Patient is on Zosyn, BP is stable, afebrile. Seen by plastic surgery. Debridement once Hgb. is better. HD done yesterday. Transfused, follow Hgb. level. Problem Qualifiers (1) Open wound of abdomen: Qualified Code: S31.109A - Open wound of abdomen, initial encounter Valentin Jimenez MD May 17, 2016 13:19 Qualified Code: S31.109A - Open wound of abdomen, initial encounter Valentin Jimenez MD May 17, 2016 13:19
[2016-05-17] MEDS ORDERED: BUPIVACAINE HCL PF 0.5% 30 ML VIAL ONE (15:51)
[2016-05-17] MEDS ORDERED: BACITRACIN TOP OINT 15 GM TUBE ONE (15:52)
[2016-05-17] MEDS ORDERED: BUPIVACAINE/EPINEPHRINE 0.5% 50 ML VIAL ONE (15:52)
[2016-05-17] MEDS ORDERED: LIDOCAINE 1%/EPINEPHrine 1:100,000 SOLN 50 ML VIAL ONE ×2 (15:53→16:58)
[2016-05-17] MEDS ORDERED: EPINEPHrine HCL (1:1000) 1 MG/ML VIAL ONE (16:58)
[2016-05-17] MEDS ORDERED: fentaNYL CITRATE 250 MCG/5 ML AMP ONE (19:21)
[2016-05-17] MEDS ORDERED: DO NOT ADM ANY ANTICOAGULANT DRUGS XX PRN (19:30)
[2016-05-17] MEDS ORDERED: MORPHINE SULFATE 4 MG/ML INJ ONE (19:55)
[2016-05-17] MEDS: ATORVASTATIN 80 MG TAB PO SCH (22:33)
[2016-05-18] VITALS (7 sets, daily range): BP systolic 117–161; BP diastolic 56–72; PULSE 56–68; RESP 20–24; TEMP 97.7–98.9; O2SAT 95–99
[2016-05-18] MEDS: PIPERACIL-TAZO 2.25 GM PREMIX 50 ML IV SCH ×3 (01:34→17:26)
[2016-05-18] MEDS: ACETAMINOPHEN/HYDROcodone 325 MG/10 MG TAB PO PRN ×3 (01:35→18:53)
[2016-05-18] MEDS: HEPARIN SODIUM - SQ 10,000 UNITS/ML VIAL SQ SCH ×2 (04:00→17:26)
[2016-05-18] MEDS: LEVOTHYROXINE SODIUM 150 MCG TAB PO SCH (06:08)
[2016-05-18] MEDS: INSULIN NovoLIN REGULAR SUPPLEMENTAL SCALE SQ SCH ×3 (06:08→17:26)
--- NOTE | 2016-05-18 08:58 | HHI.PR ---
Subjective Remarks This is a pleasant 55 y/o Female who came to Emergency room as we know she has Hypertension DM II, Hyperlipidemia, Chronic back pain, ESRD on Friday, and Friday , presents to the emergency department for evaluation of worsening abdominal wound. The wound worsened for the last six weeks, she has Wound care by Doctor Madden who performed I and D, on multiple opportunities, has wound care twice a day with packing in place, is been feeling weaker, increased drainage and Pain from the wound, as per Doctor Maryanne recommended Surgical management for Surgical debridement, Continue Hemodialysis on and Friday, status post I and D performed by behavioral intervention specialist, patient stable having wound care. sitting in her bedroom with her Son by her side. Objective Vital Signs Date Time Temp Pulse Resp B/P Pulse Ox O2 Delivery O2 Flow Rate FiO2 05/18/16 08:00 97.7 63 20 133/63 99 05/18/16 04:00 98.0 56 20 141/67 95 05/18/16 00:13 97.9 60 20 117/56 96 05/17/16 21:00 Room Air 05/17/16 20:00 98.1 57 14 143/64 95 Nasal Cannula 3 05/17/16 20:00 97.8 55 20 126/58 99 05/17/16 19:45 55 15 119/71 97 Nasal Cannula 3 05/17/16 19:30 56 14 122/65 99 Nasal Cannula 3 05/17/16 19:15 70 13 133/63 96 Nasal Cannula 3 05/17/16 19:05 98.4 57 16 135/65 95 Nasal Cannula 3 05/17/16 16:00 98.0 57 19 148/65 95 05/17/16 12:00 97.8 62 18 164/76 94 I/O 05/17/16 05/17/16 05/17/16 05/18/16 05/18/16 05/18/16 07:00 15:00 23:00 07:00 15:00 23:00 Intake Total 120 ml 240 ml 1380 ml 0 ml Output Total 50 ml Balance 120 ml 240 ml 1330 ml 0 ml Intake Oral 120 ml 240 ml 580 ml 0 ml Other 800 ml Output Urine Total 0 ml Estimated Blood Loss 50 ml # Voids 1 2 1 1 # Bowel Movements 0 1 0 Result Diagram: 05/17/16 0604 05/15/16 0400 Imaging No Imaging studies performed. Procedures No procedures performed to the patient. Other Results Laboratory Tests Test 05/14/16 05/14/16 05/14/16 05/15/16 12:47 13:00 16:11 04:00 Differential Total Cells 100 Counted Neutrophils % (Manual) 73 % Band Neutrophils % 18 % Lymphocytes % 8 % Monocytes % 1 % Neutrophils # (Manual) 17.7 TH/MM3 Toxic Vacuolation PRESENT Platelet Estimate HIGH Platelet Morphology Comment NORMAL Acanthocytes OCC Prothrombin Time 13.1 SEC Prothromb Time International 1.2 RATIO Ratio Activated Partial 39.6 SEC Thromboplast Time Lactic Acid Level 1.3 mmol/L Neutrophils (%) (Auto) 81.6 % Lymphocytes (%) (Auto) 10.1 % Monocytes (%) (Auto) 6.9 % Eosinophils (%) (Auto) 0.7 % Basophils (%) (Auto) 0.7 % Neutrophils # (Auto) 9.9 TH/MM3 Lymphocytes # (Auto) 1.2 TH/MM3 Monocytes # (Auto) 0.8 TH/MM3 Eosinophils # (Auto) 0.1 TH/MM3 Basophils # (Auto) 0.1 TH/MM3 CBC Comment AUTO DIFF Differential Comment AUTO DIFF CONFIRMED Sodium Level 134 MEQ/L Potassium Level 4.2 MEQ/L Chloride Level 97 MEQ/L Carbon Dioxide Level 23.2 MEQ/L Anion Gap 14 MEQ/L Blood Urea Nitrogen 48 MG/DL Creatinine 5.67 MG/DL Estimat Glomerular Filtration 8 ML/MIN Rate Random Glucose 163 MG/DL Calcium Level 7.8 MG/DL Phosphorus Level 5.6 MG/DL Total Bilirubin 0.6 MG/DL Direct Bilirubin 0.2 MG/DL Indirect Bilirubin 0.4 MG/DL Aspartate Amino Transf 25 U/L (AST/SGOT) Alanine Aminotransferase 10 U/L (ALT/SGPT) Alkaline Phosphatase 194 U/L Total Protein 6.9 GM/DL Albumin 1.5 GM/DL Test 05/17/16 05/17/16 06:04 18:13 White Blood Count 12.5 TH/MM3 Red Blood Count 3.93 MIL/MM3 Hemoglobin 9.7 GM/DL Hematocrit 30.3 % Mean Corpuscular Volume 77.3 FL Mean Corpuscular Hemoglobin 24.8 PG Mean Corpuscular Hemoglobin 32.0 % Concent Red Cell Distribution Width 21.0 % Platelet Count 457 TH/MM3 Mean Platelet Volume 6.6 FL Blood Type O POSITIVE Antibody Screen NEGATIVE Crossmatch Leukocyte-Reduced Red Blood Cells Blood Bank Comment Objective Remarks GENERAL: Morbidly obese female patient in no acute distress. SKIN: Warm and dry. HEAD: Normocephalic and atraumatic. EYES: No injection, drainage, or hyphema noted. PERRLA. EOMI. ENT: No nasal drainage noted. Oropharynx is clear. NECK: Supple and the trachea is midline. CARDIOVASCULAR: Regular rate and rhythm. RESPIRATORY: Breath sounds are equal bilaterally with no accessory muscle use, wheezing, rhonchi, or crackles. GASTROINTESTINAL: Abdomen is soft, non-tender, and nondistended. dressed surgical wound. MUSCULOSKELETAL: No obvious deformities, swelling, cyanosis, or ecchymosis is present throughout the upper and lower extremities. NEUROLOGICAL: Awake, alert, and oriented. Normal speech and gait. Cranial nerves are grossly intact. Medications and IVs Current Medications Medications (Trade) Dose Ordered Sig/Soren Route Start Time Stop Time Status Last Admin (Norvasc) 5 mg BID PO 05/14/16 21:00 05/17/16 09:12 (Ecotrin Ec) 81 mg DAILY PO 05/15/16 09:00 05/17/16 09:11 (Tenormin) 50 mg BID PO 05/14/16 21:00 05/17/16 09:11 (Lipitor) 80 mg HS PO 05/14/16 21:00 05/17/16 22:33 (Prinivil) 20 mg BID PO 05/14/16 21:00 05/17/16 09:11 (Rocaltrol) 0.5 mcg DAILY PO 05/15/16 09:00 05/17/16 09:11 (PROzac) 20 mg DAILY PO 05/15/16 09:00 05/17/16 09:11 (Neurontin) 100 mg BID PO 05/14/16 21:00 05/17/16 22:33 ([place] 10-325 Mg) 1 tab Q6H PRN PO 05/14/16 14:15 05/18/16 01:35 (Synthroid) 300 mcg DAILY@0600 PO 05/15/16 06:00 05/18/16 06:08 (Antivert) 25 mg TID PRN PO 05/14/16 14:15 (Renvela) 800 mg TID PO 05/14/16 18:00 05/17/16 09:11 (Zanaflex) 4 mg TID PRN PO 05/14/16 14:15 (NS Flush) 2 ml UNSCH PRN FLUSH 05/14/16 14:30 (NS Flush) 2 ml BID FLUSH 05/14/16 21:00 05/17/16 22:32 (Tylenol) 650 mg Q4H PRN PO 05/14/16 14:30 (Zofran Inj) 4 mg Q6H PRN IVP 05/14/16 14:30 (Reglan Inj) 5 mg Q6H PRN IV PUSH 05/14/16 14:30 (Dulcolax Supp) 10 mg DAILY PRN HI 05/14/16 14:30 (Colace) 100 mg Q12HR PO 05/14/16 21:00 05/15/16 09:29 (Heparin Inj) 5,000 units Q12H SQ 05/14/16 16:00 05/17/16 03:09 Naloxone HCl 0.4 mg 0.4 mg UNSCH PRN IV 05/14/16 14:30 (NS 1000 ml Inj) 1,000 ml @ 0 mls/hr Q0M PRN IV 05/14/16 14:54 Heparin Sodium (Porcine) 8000 units 8,000 units UNSCH PRN IVF 05/14/16 15:00 Sodium Chloride 1,000 ml @ 200 mls/hr Q5H PRN IV 05/14/16 14:54 (NS 1000 ml Inj) 1,000 ml @ 0 mls/hr Q0M PRN IV 05/14/16 14:54 (Mannitol Inj) 12.5 gm UNSCH PRN IV 05/14/16 15:00 (Albumin 25% Inj) 25 gm UNSCH PRN IV 05/14/16 15:00 (NS Flush) 5 ml UNSCH PRN IVF 05/14/16 15:00 (Heparin Inj) UNSCH PRN .XX 05/14/16 15:00 05/16/16 16:22 (Gentamicin (Dialysis) Inj) 20 mg UNSCH PRN IV 05/14/16 15:00 05/16/16 16:22 (Zofran Inj) 4 mg UNSCH PRN IV 05/14/16 15:00 (Tylenol) 650 mg UNSCH PRN PO 05/14/16 15:00 05/16/16 09:36 (Benadryl) 25 mg UNSCH PRN PO 05/14/16 15:00 (Nitrostat Sl) 0.4 mg UNSCH PRN SL 05/14/16 15:00 (Catapres) 0.1 mg UNSCH PRN PO 05/14/16 15:00 (Epogen Inj) 10,000 units UNSCH PRN IV 05/14/16 15:00 05/16/16 16:22 (Gelfoam 12 Mm/7 Mm Top) 1 foam UNSCH PRN TOP 05/14/16 15:00 (D50w (Vial) Inj) 25 ml UNSCH PRN IV PUSH 05/14/16 18:45 (Glucagon Inj) 1 mg UNSCH PRN OTHER 05/14/16 18:45 (Dakin'S 0.125% Soln) 120 ml DAILY OTHER 05/17/16 15:00 Collagenase 1 applic 1 applic DAILY EXT 05/17/16 15:00 (Zosyn 2.25 Gm Premix) 50 ml @ 100 mls/hr Q8H IV 05/17/16 01:00 05/18/16 01:34 Miscellaneous Information ALL NURSING DEPARTME... UNSCH PRN XX 05/17/16 19:30 05/18/16 19:29 A/P Problem List: (1) Type II diabetes mellitus with neurological manifestations, uncontrolled ICD Code: E11.49 (2) End stage renal disease on dialysis ICD Code: N18.6 (3) Anemia in chronic kidney disease (CKD) ICD Code: N18.9 (4) Open wound of abdomen ICD Code: S31.109A Assessment and Plan 1. Sepsis/Abdominal pannus wound cellulitis and ulcer, consulted General Surgery , started on Vancomycin and Zosyn and follow blood cultures and wound cultures negative, ID specialsit following, status post I and D. 2. Morbid Obesity strongly recommended diet and exercise, weight loss warranted. 3. Hypertension controlled. 4. DM II continue sliding scale better control today. 5. Hyperlipidemia continue home medicines 6. ESRD on Hemodialysis and Friday, at this time going for HD 7. chronic low back pain and chronic pain syndrome DVT prophylaxis with Heparin every 12 hours. Code Status Full Code. Discharge Planning Once cleared by Specialists. Problem Qualifiers (1) Open wound of abdomen: Qualified Code: S31.109A - Open wound of abdomen, initial encounter Ken Franks MD May 18, 2016 08:58 Qualified Code: S31.109A - Open wound of abdomen, initial encounter Ken Franks MD May 18, 2016 08:58
[2016-05-18] MEDS: DOCUSATE SODIUM 100 MG CAP PO SCH ×2 (09:00→22:12)
[2016-05-18] MEDS: COLLAGENASE OINT 30 GM TUBE EXT SCH (09:00)
[2016-05-18] MEDS: SODIUM CHLORIDE 0.9% FLUSH 5 ML FLUSH FLUSH SCH ×2 (09:00→21:00)
[2016-05-18] MEDS: SEVELAMER CARBONATE 800 MG TAB PO SCH ×3 (09:00→17:26)
[2016-05-18] MEDS: SODIUM HYPOCHLORITE 0.125% 500 ML BTL OTHER SCH (09:00)
--- NOTE | 2016-05-18 11:02 | PD.PLAS.PN ---
Subjective Remarks Patient currently in dialysis Has been stable overnight and no active bleeding reported from the wound. Will follow while she is in hospital. After discharge she will need to be referred to a provider on her insurance or to the wound care center either here at [facility] or other ones near the patient' s home. Vital Signs Date Time Temp Pulse Resp B/P Pulse Ox O2 Delivery O2 Flow Rate FiO2 05/18/16 10:02 96 21 05/18/16 09:00 60 05/18/16 08:00 97.7 63 20 133/63 99 05/18/16 08:00 Room Air 05/18/16 04:00 98.0 56 20 141/67 95 05/18/16 00:13 97.9 60 20 117/56 96 05/17/16 21:00 Room Air 05/17/16 20:00 98.1 57 14 143/64 95 Nasal Cannula 3 05/17/16 20:00 97.8 55 20 126/58 99 05/17/16 19:45 55 15 119/71 97 Nasal Cannula 3 05/17/16 19:30 56 14 122/65 99 Nasal Cannula 3 05/17/16 19:15 70 13 133/63 96 Nasal Cannula 3 05/17/16 19:05 98.4 57 16 135/65 95 Nasal Cannula 3 05/17/16 16:00 98.0 57 19 148/65 95 05/17/16 12:00 97.8 62 18 164/76 94 I/O 05/17/16 05/17/16 05/17/16 05/18/16 05/18/16 05/18/16 07:00 15:00 23:00 07:00 15:00 23:00 Intake Total 120 ml 240 ml 1380 ml 0 ml Output Total 50 ml Balance 120 ml 240 ml 1330 ml 0 ml Intake Oral 120 ml 240 ml 580 ml 0 ml Other 800 ml Output Urine Total 0 ml Estimated Blood Loss 50 ml # Voids 1 2 1 1 # Bowel Movements 0 1 0 Laboratory Tests Test 05/17/16 18:13 Blood Type O POSITIVE Antibody Screen NEGATIVE Crossmatch Leukocyte-Reduced Red Blood Cells Blood Bank Comment Date/Time Procedure Status Source Growth 05/17/16 18:37 Gram Stain - Final Resulted Wound Abdomen 05/17/16 18:37 Wound Culture Resulted Wound Abdomen Pending 05/17/16 18:37 Fungal Smear - Final Resulted Wound Abdomen NO FUNGAL ELEMENTS SEEN. 05/17/16 18:37 Fungal Culture Resulted Wound Abdomen Pending 05/17/16 18:37 Acid Fast Stain Received Wound Abdomen Pending 05/17/16 18:37 Mycobacterial Culture Received Wound Abdomen Pending 05/14/16 12:45 Aerobic Blood Culture - Preliminary Resulted Blood Peripheral NO GROWTH IN 3 DAYS 05/14/16 12:45 Anaerobic Blood Culture - Preliminary Resulted Blood Peripheral NO GROWTH IN 3 DAYS 05/14/16 12:34 Gram Stain Received Wound Abdomen Pending 05/14/16 12:34 Wound Culture Received Wound Abdomen Pending Result Diagram: 05/17/16 0604 05/15/16 0400 Bob Johnson MD May 18, 2016 11:02
[2016-05-18] MEDS: GABAPENTIN 100 MG CAP PO SCH ×2 (12:41→22:12)
[2016-05-18] MEDS: FLUoxetine HCL 20 MG CAP PO SCH (12:41)
[2016-05-18] MEDS: CALCITRIOL 0.25 MCG CAP PO SCH (12:41)
[2016-05-18] MEDS: ATENOLOL 50 MG TAB PO SCH ×2 (12:42→22:12)
[2016-05-18] MEDS: amLODIPine BESYLATE 5 MG TAB PO SCH ×2 (12:42→22:13)
[2016-05-18] MEDS: LISINOPRIL 20 MG TAB PO SCH ×2 (12:42→22:13)
[2016-05-18] MEDS: ASPIRIN EC 81 MG TABEC PO SCH (12:42)
[2016-05-18] MEDS: GENTAMICIN SULFATE (DIALYSIS USE ONLY) 20 MG/2 ML VIAL IV PRN (13:26)
[2016-05-18] MEDS: HEPARIN SODIUM - IV 10,000 UNITS/10 ML VIAL PRN (13:26)
[2016-05-18] MEDS: SODIUM CHLOR 0.9% 1000 ML INJ 1,000 ML IV PRN (13:26)
[2016-05-18] MEDS: EPOETIN ALFA 10,000 UNITS/ML VIAL IV PRN (13:26)
--- NOTE | 2016-05-18 13:32 | MB ---
cc: KYLER BELL DATE OF CONSULTATION: 05/15/2016 REASON FOR CONSULTATION: Large necrotic open wound right side lower abdominal pannus. HISTORY This is a 55-year-old white female who is extremely obese probably within the range of 350 plus pounds who has been for most part bedridden. She is brought into the [facility] ER with a foul-smelling necrotic wound on the right lower abdominal pannus. She is septic, hemoglobin of 6.5 has been admitted for medical care and stabilization. She is also on dialysis. The patient was initially seen by Dr. Matias of general surgery who does not feel comfortable doing this himself. He also has approached bariatric surgeons and again with no direct surgery being planned. He has reached out to me in the sense that the wound is actually on the abdominal pannus and that if a panniculectomy may help. The patient is extremely sick today and she just had dialysis yesterday. The patient was seen in the surgical floor setting by myself today. PAST MEDICAL HISTORY: The patient's past medical history listed includes the diabetes, severe obesity, coronary artery disease, hyperlipidemia, osteoarthritis and stage renal disease, hemodialysis, hypertension, spinal stenosis, hypothyroidism. PAST SURGICAL HISTORY: Previous surgical history includes lap band, lap cholecystectomy, stent placement, vascular catheter on the right upper extremity previous also a history of chronic wound on the left side of the abdominal pannus, that healed with local care. MEDICATIONS: the medications listed include; Gabapentin Magnesium Lortab Aspirin . Insulin Thyroxine Levothyroxine Fluoxetine Calcitriol benazepril Atorvastatin Atenolol Amilodipine. Apparently she will be on antibiotics. ALLERGIES BIAXIN IRON SOCIAL HISTORY: negative for alcohol, Smoking or drugs. PHYSICAL EXAMINATION: The examination shows a 55-year-old white female with stable vital signs at the present. She prepped in surgical bed not in acute distress. She is alert, cooperative, able to communicate well. The general examination is remarkable for the severe obesity. There are chronic lymphedema and changes noted on the lower extremities. The local examination shows a very large abdominal pannus, probably three to three and 1/2 foot horizontal and approximately 8-12 inches over hang in a semi sitting position. The entire pannus shows hardening of fat involving the midline and the left side of the abdomen. On the right side there is a grossly necrotic open foul-smelling wound about 20 cm [id number] and approximately 12-15 cm vertical approximately 6 cm deep. It is full of black necrotic and purulent tissue and foul smell possibly a mixed infection with bacteremia and anaerobic from the smell of it. The patient has redness and cellulitis of the surrounding soft tissues extending approximately 2 inches from the upper portion of the abdomen in the right lower quadrant and the umbilical area is actually not showing a gross abscess formation at this point the right groin again is free of abscess. It is not clear how deep the necrotic process is going. The patient has had no radiological studies yet. She is also extremely anemic. She will be getting IV antibiotics, blood transfusions and needs to be stabilized before surgery can be undertaken. She also is expected to possibly lose a fair amount of blood in the excision of this necrotic area simply because of the presence of the severe inflammation in the area as well as the fact that her blood vessels are much larger compared to a normal body weight person. I will continue to see the patient. Currently if any surgery is planned; It must be limited to the area of necrotic tissue as far as the rest of the pannus it is not advisable to touch it. The patient is likely to have further tissue necrosis possible necrotizing fasciitis and other severe complications and she will be a morbidly high-risk patient. signed, not fully reviewed MD GLO Parnell/sherine /10:03 AM /1:16 PM WINSOME
--- NOTE | 2016-05-18 14:32 | EKG ---
Date Performed: 05/17/2016 Time Performed: 15:37:42 PTAGE: 55 years EKG: Sinus bradycardia Right bundle branch block Right axis deviation Compared to prior tracing no significant change Abnormal ECG PREVIOUS TRACING : 04/18/16 DOCTOR: Mode Little Interpretating Date/Time 05/18/2016 14:30:54
--- NOTE | 2016-05-18 17:10 | HHI.NPPN ---
Subjective History of Present Illness 55-year-old female known to me from before with past medical history of diabetes mellitus, history of morbid obesity, end-stage renal disease on hemodialysis three times per week, history of chronic anemia, congestive heart failure, spinal stenosis, chronic back pain, hypothyroidism who came to the hospital with complaint of worsening lower abdominal wound. I was called to see the patient for the management of dialysis. The patient has been on hemodialysis Friday, and Friday. Additional Remarks No acute complaints, seen on dialysis earlier today and tolerated HD. Review of Systems General Constitutional: Fatigue Respiratory Lungs: SOB Cardiovascular Cardiac: GRIFFIN Objective Data Data 05/17/16 05/18/16 19:00 07:00 Intake Total 240 ml 1380 ml Output Total 50 ml Balance 240 ml 1330 ml Intake Oral 240 ml 580 ml Other 800 ml Output Urine Total 0 ml Estimated Blood Loss 50 ml # Voids 2 2 # Bowel Movements 1 0 Vital Signs Date Time Temp Pulse Resp B/P Pulse Ox O2 Delivery O2 Flow Rate FiO2 05/18/16 16:00 98.9 68 24 122/60 97 05/18/16 10:02 96 21 05/18/16 09:00 60 05/18/16 08:00 97.7 63 20 133/63 99 05/18/16 08:00 Room Air 05/18/16 04:00 98.0 56 20 141/67 95 05/18/16 00:13 97.9 60 20 117/56 96 05/17/16 21:00 Room Air 05/17/16 20:00 98.1 57 14 143/64 95 Nasal Cannula 3 05/17/16 20:00 97.8 55 20 126/58 99 05/17/16 19:45 55 15 119/71 97 Nasal Cannula 3 05/17/16 19:30 56 14 122/65 99 Nasal Cannula 3 05/17/16 19:15 70 13 133/63 96 Nasal Cannula 3 05/17/16 19:05 98.4 57 16 135/65 95 Nasal Cannula 3 -: 05/17/16 0604 05/15/16 0400 Microbiology 05/17/16 Gram Stain - Final, Resulted 05/17/16 Wound Culture - Preliminary, Resulted Pseudomonas Aeruginosa 05/17/16 Acid Fast Stain, Received Pending 05/17/16 Mycobacterial Culture, Received Pending 05/17/16 Fungal Smear - Final, Resulted NO FUNGAL ELEMENTS SEEN. 05/17/16 Fungal Culture, Resulted Pending Physical Exam General Appearance: No Acute Distress, Comfortable Eyes Eye Exam: Pupils Equal Throat Throat Exam: Oral Mucosa [place] & Moist Neck Neck Exam: Neck Supple Pulmonary Resp Exam: Breath Sounds Equal, Crackles, Decreased Bases, Diminished Breath Sounds Gastrointestinal/Abdomen GI Exam: Soft, Non-Tender, Distended Extremeties Extremities Exam: Moderate Edema, Pitting Edema, Dependent Edema Neurologic Neuro Exam: Alert, Awake, Oriented Psychiatric Psych Exam: Appropriate Responses Assessment/Plan Assessment Summary: Anemia of CKD, Hypertension, End Stage Renal Disease Problem List: (1) Anemia in chronic kidney disease (CKD) (2) Open wound of abdomen (3) Chronic stasis dermatitis (4) End stage kidney disease Plan Patient is on Zosyn, BP is stable, afebrile. Seen by plastic surgery. HD done and 2 liters removed today. Plan for next HD Friday. Transfused last HD, now Hgb 9 Follow Hgb. Follow up management plans per surgery. Problem Qualifiers (1) Open wound of abdomen: Qualified Code: S31.109A - Open wound of abdomen, initial encounter Bradly Sanchez MD May 18, 2016 17:10
[2016-05-18] MEDS: INSULIN DETEMIR 100 UNITS/ML VIAL SQ SCH (18:39)
[2016-05-18] MEDS: ATORVASTATIN 80 MG TAB PO SCH (22:12)
[2016-05-18] MEDS: HIGH DOSE INSULIN NOVOLOG SUPPLEMENTAL SCALE SQ SCH (22:14)
[2016-05-19] VITALS (9 sets, daily range): BP systolic 106–173; BP diastolic 53–76; PULSE 58–69; RESP 12–24; TEMP 97.5–99; O2SAT 93–98
[2016-05-19] MEDS: HEPARIN SODIUM - SQ 10,000 UNITS/ML VIAL SQ SCH ×2 (04:00→15:00)
[2016-05-19] MEDS: PIPERACIL-TAZO 2.25 GM PREMIX 50 ML IV SCH ×3 (04:53→15:00)
[2016-05-19] MEDS: LEVOTHYROXINE SODIUM 150 MCG TAB PO SCH (06:10)
[2016-05-19] MEDS: INSULIN DETEMIR 100 UNITS/ML VIAL SQ SCH ×2 (06:10→17:52)
[2016-05-19] MEDS: HIGH DOSE INSULIN NOVOLOG SUPPLEMENTAL SCALE SQ SCH ×4 (06:10→21:00)
[2016-05-19] MEDS: DOCUSATE SODIUM 100 MG CAP PO SCH ×2 (08:16→21:00)
[2016-05-19] MEDS: CALCITRIOL 0.25 MCG CAP PO SCH (08:16)
[2016-05-19] MEDS: FLUoxetine HCL 20 MG CAP PO SCH (08:16)
[2016-05-19] MEDS: LISINOPRIL 20 MG TAB PO SCH ×2 (08:16→22:01)
[2016-05-19] MEDS: ATENOLOL 50 MG TAB PO SCH ×2 (08:16→22:00)
[2016-05-19] MEDS: GABAPENTIN 100 MG CAP PO SCH ×2 (08:16→21:59)
[2016-05-19] MEDS: amLODIPine BESYLATE 5 MG TAB PO SCH ×2 (08:16→22:00)
[2016-05-19] MEDS: ASPIRIN EC 81 MG TABEC PO SCH (08:16)
[2016-05-19] MEDS: ACETAMINOPHEN/HYDROcodone 325 MG/10 MG TAB PO PRN ×4 (08:16→23:21)
[2016-05-19] MEDS: SEVELAMER CARBONATE 800 MG TAB PO SCH ×3 (08:16→17:52)
[2016-05-19] MEDS: SODIUM HYPOCHLORITE 0.125% 500 ML BTL OTHER SCH (08:17)
[2016-05-19] MEDS: SODIUM CHLORIDE 0.9% FLUSH 5 ML FLUSH FLUSH SCH ×2 (08:17→22:00)
[2016-05-19] MEDS: COLLAGENASE OINT 30 GM TUBE EXT SCH (08:17)
--- NOTE | 2016-05-19 10:36 | HHI.PR ---
Subjective Remarks This is a pleasant 55 y/o Female who came to Emergency room as we know she has Hypertension DM II, Hyperlipidemia, Chronic back pain, ESRD on Friday, and Friday , presents to the emergency department for evaluation of worsening abdominal wound. The wound worsened for the last six weeks, she has Wound care by Doctor Maryanne who performed I and D, on multiple opportunities, has wound care twice a day with packing in place, is been feeling weaker, increased drainage and Pain from the wound, as per Doctor Maryanne recommended Surgical management for Surgical debridement, Continue Hemodialysis on and Friday, status post I and D performed by [facility] management specialist. Seen in the room in the presence of her Son, asking for pain medicine increased schedule to every four hours. No nausea, vomit or diarrhea wants to go home. Objective Vital Signs Date Time Temp Pulse Resp B/P Pulse Ox O2 Delivery O2 Flow Rate FiO2 05/19/16 09:57 69 05/19/16 08:00 Room Air 05/19/16 08:00 98.3 69 16 141/65 98 05/19/16 04:00 98.0 59 18 173/74 93 05/19/16 00:00 97.5 58 18 168/76 95 05/18/16 20:00 Room Air 05/18/16 20:00 98.2 63 20 161/72 96 05/18/16 16:00 98.9 68 24 122/60 97 I/O 05/18/16 05/18/16 05/18/16 05/19/16 05/19/16 05/19/16 07:00 15:00 23:00 07:00 15:00 23:00 Intake Total 0 ml 355 ml 240 ml Output Total 2000 ml Balance 0 ml -1645 ml 240 ml Intake Oral 0 ml 355 ml 240 ml Hemodialysis 2000 ml # Voids 1 3 1 2 # Bowel Movements 0 0 Result Diagram: 05/17/16 0604 05/15/16 0400 Imaging No Imaging studies performed. Procedures I and D of Pannus cellulitis. Other Results Laboratory Tests Test 05/15/16 05/17/16 05/17/16 04:00 06:04 18:13 Neutrophils (%) (Auto) 81.6 % Lymphocytes (%) (Auto) 10.1 % Monocytes (%) (Auto) 6.9 % Eosinophils (%) (Auto) 0.7 % Basophils (%) (Auto) 0.7 % Neutrophils # (Auto) 9.9 TH/MM3 Lymphocytes # (Auto) 1.2 TH/MM3 Monocytes # (Auto) 0.8 TH/MM3 Eosinophils # (Auto) 0.1 TH/MM3 Basophils # (Auto) 0.1 TH/MM3 CBC Comment AUTO DIFF Differential Comment AUTO DIFF CONFIRMED Sodium Level 134 MEQ/L Potassium Level 4.2 MEQ/L Chloride Level 97 MEQ/L Carbon Dioxide Level 23.2 MEQ/L Anion Gap 14 MEQ/L Blood Urea Nitrogen 48 MG/DL Creatinine 5.67 MG/DL Estimat Glomerular Filtration 8 ML/MIN Rate Random Glucose 163 MG/DL Calcium Level 7.8 MG/DL Phosphorus Level 5.6 MG/DL Total Bilirubin 0.6 MG/DL Direct Bilirubin 0.2 MG/DL Indirect Bilirubin 0.4 MG/DL Aspartate Amino Transf 25 U/L (AST/SGOT) Alanine Aminotransferase 10 U/L (ALT/SGPT) Alkaline Phosphatase 194 U/L Total Protein 6.9 GM/DL Albumin 1.5 GM/DL White Blood Count 12.5 TH/MM3 Red Blood Count 3.93 MIL/MM3 Hemoglobin 9.7 GM/DL Hematocrit 30.3 % Mean Corpuscular Volume 77.3 FL Mean Corpuscular Hemoglobin 24.8 PG Mean Corpuscular Hemoglobin 32.0 % Concent Red Cell Distribution Width 21.0 % Platelet Count 457 TH/MM3 Mean Platelet Volume 6.6 FL Blood Type O POSITIVE Antibody Screen NEGATIVE Crossmatch Leukocyte-Reduced Red Blood Cells Blood Bank Comment Objective Remarks GENERAL: Morbidly obese female patient in no acute distress. SKIN: Warm and dry. HEAD: Normocephalic and atraumatic. EYES: No injection, drainage, or hyphema noted. PERRLA. EOMI. ENT: No nasal drainage noted. Oropharynx is clear. NECK: Supple and the trachea is midline. CARDIOVASCULAR: Regular rate and rhythm. RESPIRATORY: Breath sounds are equal bilaterally with no accessory muscle use, wheezing, rhonchi, or crackles. GASTROINTESTINAL: Abdomen is soft, non-tender, and nondistended. dressed surgical wound. MUSCULOSKELETAL: No obvious deformities, swelling, cyanosis, or ecchymosis is present throughout the upper and lower extremities. NEUROLOGICAL: Awake, alert, and oriented. Normal speech and gait. Cranial nerves are grossly intact. Medications and IVs Current Medications Medications (Trade) Dose Ordered Sig/Soren Route Start Time Stop Time Status Last Admin (Norvasc) 5 mg BID PO 05/14/16 21:00 05/19/16 08:16 (Ecotrin Ec) 81 mg DAILY PO 05/15/16 09:00 05/19/16 08:16 (Tenormin) 50 mg BID PO 05/14/16 21:00 05/19/16 08:16 (Lipitor) 80 mg HS PO 05/14/16 21:00 05/18/16 22:12 (Prinivil) 20 mg BID PO 05/14/16 21:00 05/19/16 08:16 (Rocaltrol) 0.5 mcg DAILY PO 05/15/16 09:00 05/19/16 08:16 (PROzac) 20 mg DAILY PO 05/15/16 09:00 05/19/16 08:16 (Neurontin) 100 mg BID PO 05/14/16 21:00 05/19/16 08:16 ([place] 10-325 Mg) 1 tab Q6H PRN PO 05/14/16 14:15 05/19/16 08:16 (Synthroid) 300 mcg DAILY@0600 PO 05/15/16 06:00 05/19/16 06:10 (Antivert) 25 mg TID PRN PO 05/14/16 14:15 (Renvela) 800 mg TID PO 05/14/16 18:00 05/19/16 08:16 (Zanaflex) 4 mg TID PRN PO 05/14/16 14:15 (NS Flush) 2 ml UNSCH PRN FLUSH 05/14/16 14:30 (NS Flush) 2 ml BID FLUSH 05/14/16 21:00 05/19/16 08:17 (Tylenol) 650 mg Q4H PRN PO 05/14/16 14:30 (Zofran Inj) 4 mg Q6H PRN IVP 05/14/16 14:30 (Reglan Inj) 5 mg Q6H PRN IV PUSH 05/14/16 14:30 (Dulcolax Supp) 10 mg DAILY PRN [place] 05/14/16 14:30 (Colace) 100 mg Q12HR PO 05/14/16 21:00 05/19/16 08:16 (Heparin Inj) 5,000 units Q12H SQ 05/14/16 16:00 05/19/16 04:00 Naloxone HCl 0.4 mg 0.4 mg UNSCH PRN IV 05/14/16 14:30 (NS 1000 ml Inj) 1,000 ml @ 0 mls/hr Q0M PRN IV 05/14/16 14:54 05/18/16 13:26 Heparin Sodium (Porcine) 8000 units 8,000 units UNSCH PRN IVF 05/14/16 15:00 Sodium Chloride 1,000 ml @ 200 mls/hr Q5H PRN IV 05/14/16 14:54 (NS 1000 ml Inj) 1,000 ml @ 0 mls/hr Q0M PRN IV 05/14/16 14:54 (Mannitol Inj) 12.5 gm UNSCH PRN IV 05/14/16 15:00 (Albumin 25% Inj) 25 gm UNSCH PRN IV 05/14/16 15:00 (NS Flush) 5 ml UNSCH PRN IVF 05/14/16 15:00 (Heparin Inj) UNSCH PRN .XX 05/14/16 15:00 05/18/16 13:26 (Gentamicin (Dialysis) Inj) 20 mg UNSCH PRN IV 05/14/16 15:00 05/18/16 13:26 (Zofran Inj) 4 mg UNSCH PRN IV 05/14/16 15:00 (Tylenol) 650 mg UNSCH PRN PO 05/14/16 15:00 05/16/16 09:36 (Benadryl) 25 mg UNSCH PRN PO 05/14/16 15:00 (Nitrostat Sl) 0.4 mg UNSCH PRN SL 05/14/16 15:00 (Catapres) 0.1 mg UNSCH PRN PO 05/14/16 15:00 (Epogen Inj) 10,000 units UNSCH PRN IV 05/14/16 15:00 05/18/16 13:26 (Gelfoam 12 Mm/7 Mm Top) 1 foam UNSCH PRN TOP 05/14/16 15:00 (D50w (Vial) Inj) 25 ml UNSCH PRN IV PUSH 05/14/16 18:45 (Glucagon Inj) 1 mg UNSCH PRN OTHER 05/14/16 18:45 ([place] 0.125% Soln) 120 ml DAILY OTHER 05/17/16 15:00 Collagenase 1 applic 1 applic DAILY EXT 05/17/16 15:00 05/18/16 09:00 (Zosyn 2.25 Gm Premix) 50 ml @ 100 mls/hr Q8H IV 05/17/16 01:00 05/19/16 08:17 (Levemir Inj) 30 units Q12H SQ 05/18/16 18:00 05/19/16 06:10 A/P Problem List: (1) Type II diabetes mellitus with neurological manifestations, uncontrolled ICD Code: E11.49 (2) End stage renal disease on dialysis ICD Code: N18.6 (3) Anemia in chronic kidney disease (CKD) ICD Code: N18.9 (4) Open wound of abdomen ICD Code: S31.109A Assessment and Plan 1. Sepsis/Abdominal pannus wound cellulitis and ulcer, consulted General Surgery , started on Vancomycin and Zosyn and follow blood cultures and wound cultures negative, ID specialsit following, status post I and D. continue wound care. 2. Morbid Obesity strongly recommended diet and exercise, weight loss warranted. 3. Hypertension controlled. 4. DM II continue sliding scale better control, Hemoglobin A1C 5. Hyperlipidemia continue home medicines 6. ESRD on Hemodialysis and Friday, at this time going for HD 7. chronic low back pain and chronic pain syndrome asked to increase pain medicine increased frequency to every four hours. DVT prophylaxis with Heparin every 12 hours. Code Status Full Code. Discharge Planning Once cleared by Specialists. Problem Qualifiers (1) Open wound of abdomen: Qualified Code: S31.109A - Open wound of abdomen, initial encounter Ken Franks MD May 19, 2016 10:35
--- NOTE | 2016-05-19 16:13 | HHI.NPPN ---
Subjective History of Present Illness 55-year-old female known to me from before with past medical history of diabetes mellitus, history of morbid obesity, end-stage renal disease on hemodialysis three times per week, history of chronic anemia, congestive heart failure, spinal stenosis, chronic back pain, hypothyroidism who came to the hospital with complaint of worsening lower abdominal wound. I was called to see the patient for the management of dialysis. The patient has been on hemodialysis Friday, and Friday. Additional Remarks No acute complaints, tolerated HD yesterday Review of Systems General Constitutional: Fatigue Respiratory Lungs: SOB Cardiovascular Cardiac: GRIFFIN Objective Data Data 05/18/16 05/19/16 19:00 07:00 Intake Total 355 ml 240 ml Output Total 2000 ml Balance -1645 ml 240 ml Intake Oral 355 ml 240 ml Hemodialysis 2000 ml # Voids 3 3 # Bowel Movements 0 Vital Signs Date Time Temp Pulse Resp B/P Pulse Ox O2 Delivery O2 Flow Rate FiO2 05/19/16 12:00 98.7 58 12 108/56 95 05/19/16 09:57 69 05/19/16 09:20 94 21 05/19/16 08:00 Room Air 05/19/16 08:00 98.3 69 16 141/65 98 05/19/16 04:00 98.0 59 18 173/74 93 05/19/16 00:00 97.5 58 18 168/76 95 05/18/16 20:00 Room Air 05/18/16 20:00 98.2 63 20 161/72 96 -: 05/17/16 0604 05/15/16 0400 Physical Exam General Appearance: No Acute Distress, Comfortable Eyes Eye Exam: Pupils Equal Throat Throat Exam: Oral Mucosa [place] & Moist Neck Neck Exam: Neck Supple Pulmonary Resp Exam: Breath Sounds Equal, Crackles, Decreased Bases, Diminished Breath Sounds Gastrointestinal/Abdomen GI Exam: Soft, Non-Tender, Distended Extremeties Extremities Exam: Moderate Edema, Pitting Edema, Dependent Edema Neurologic Neuro Exam: Alert, Awake, Oriented Psychiatric Psych Exam: Appropriate Responses Assessment/Plan Assessment Summary: Anemia of CKD, Hypertension, End Stage Renal Disease Problem List: (1) Anemia in chronic kidney disease (CKD) (2) Open wound of abdomen (3) Chronic stasis dermatitis (4) End stage kidney disease Plan Patient is on Zosyn, BP is stable, afebrile. Seen by plastic surgery with debridement Friday. HD done yesterday with 2L UF. Plan for next HD Friday. Follow hemoglobin, transfused last week. Follow up management plans per surgery. Problem Qualifiers (1) Open wound of abdomen: Qualified Code: S31.109A - Open wound of abdomen, initial encounter Bradly Sanchez MD May 19, 2016 16:13
[2016-05-19] MEDS: ATORVASTATIN 80 MG TAB PO SCH (21:59)
[2016-05-20] VITALS (8 sets, daily range): BP systolic 111–158; BP diastolic 55–71; PULSE 60–66; RESP 14–20; TEMP 98.2–101; O2SAT 92–99
[2016-05-20] MEDS: PIPERACIL-TAZO 2.25 GM PREMIX 50 ML IV SCH ×3 (00:38→17:00)
[2016-05-20] MEDS: LEVOTHYROXINE SODIUM 150 MCG TAB PO SCH (04:49)
[2016-05-20] MEDS: ACETAMINOPHEN/HYDROcodone 325 MG/10 MG TAB PO PRN ×5 (04:49→23:58)
[2016-05-20] MEDS: INSULIN DETEMIR 100 UNITS/ML VIAL SQ SCH ×2 (04:50→17:34)
[2016-05-20] MEDS: HIGH DOSE INSULIN NOVOLOG SUPPLEMENTAL SCALE SQ SCH ×4 (04:50→20:35)
[2016-05-20] MEDS: ACETAMINOPHEN 325 MG TAB PO PRN (04:50)
[2016-05-20] MEDS: HEPARIN SODIUM - SQ 10,000 UNITS/ML VIAL SQ SCH ×2 (04:51→16:00)
[2016-05-20 06:51] LABS: AUTOMATED NEUTROPHIL # 10.9 TH/MM3 (1.8-7.7); BASOPHIL # 0.1 TH/MM3 (0-0.2); BASOPHIL % 0.8 % (0.0-2.0); EOSINOPHIL # 0.2 TH/MM3 (0-0.4); EOSINOPHIL % 1.8 % (0.0-4.0); HEMATOCRIT 27.2 % (35.0-46.0); HEMO FLAGS DIFF FINAL; LYMPH % 11.3 % (9.0-44.0); LYMPHOCYTE # 1.5 TH/MM3 (1.0-4.8); MEAN CELL VOLUME 78.6 FL (80.0-100.0); MEAN CORPUSCULAR HEMOGLOBIN 25.3 PG (27.0-34.0); MEAN CORPUSCULAR HGB CONC 32.1 % (32.0-36.0); NEUT % 80.1 % (16.0-70.0); PLATELET COUNT 430 TH/MM3 (150-450); RED BLOOD COUNT 3.46 MIL/MM3 (4.00-5.30); WHITE BLOOD COUNT 13.6 TH/MM3 (4.0-11.0)
[2016-05-20 07:14] LABS: BICARBONATE 26.2 MEQ/L (21.0-32.0); MAGNESIUM 1.5 MG/DL (1.5-2.5); POTASSIUM 3.9 MEQ/L (3.5-5.1)
[2016-05-20 07:42] LABS: CALCIUM-PROTEIN CORRECTED 7.4 MG/DL (8.5-10.1)
--- NOTE | 2016-05-20 08:31 | HHI.PR ---
Subjective Remarks This is a pleasant 55 y/o Female who came to Emergency room as we know she has Hypertension DM II, Hyperlipidemia, Chronic back pain, ESRD on Friday, and Friday , presents to the emergency department for evaluation of worsening abdominal wound. The wound worsened for the last six weeks, she has Wound care by Doctor Maryanne who performed I and D, on multiple opportunities, has wound care twice a day with packing in place, is been feeling weaker, increased drainage and Pain from the wound, as per Doctor Maryanne recommended Surgical management for Surgical debridement, Continue Hemodialysis on and Friday, status post I and D performed by policy specialist. Patient continue with Wound care management asking she wants to go home, Wound care growing Pseudomonas Aeruginosa. No nausea, vomit or diarrhea. complaint of Constipation. Objective Vital Signs Date Time Temp Pulse Resp B/P Pulse Ox O2 Delivery O2 Flow Rate FiO2 05/20/16 04:00 101.0 66 16 147/66 92 05/20/16 00:00 98.6 62 18 144/65 94 05/19/16 21:58 Room Air 05/19/16 20:00 98.9 58 16 133/61 95 05/19/16 19:56 60 05/19/16 16:00 99.0 60 24 106/53 95 05/19/16 12:00 98.7 58 12 108/56 95 05/19/16 09:57 69 05/19/16 09:20 94 21 I/O 05/19/16 05/19/16 05/19/16 05/20/16 05/20/16 05/20/16 07:00 15:00 23:00 07:00 15:00 23:00 Intake Total 650 ml 2 ml 2 ml Balance 650 ml 2 ml 2 ml Intake Oral 600 ml IV Total 50 ml 2 ml 2 ml # Voids 2 2 # Bowel Movements 1 Result Diagram: 05/20/1661605/20/16616 Imaging No Imaging studies performed. Procedures I and D of Pannus cellulitis. Other Results Laboratory Tests Test 05/17/16 05/20/16 18:13 06:17 Blood Type O POSITIVE Antibody Screen NEGATIVE Crossmatch Leukocyte-Reduced Red Blood Cells Blood Bank Comment White Blood Count 13.6 TH/MM3 Red Blood Count 3.46 MIL/MM3 Hemoglobin 8.7 GM/DL Hematocrit 27.2 % Mean Corpuscular Volume 78.6 FL Mean Corpuscular Hemoglobin 25.3 PG Mean Corpuscular Hemoglobin 32.1 % Concent Red Cell Distribution Width 21.0 % Platelet Count 430 TH/MM3 Mean Platelet Volume 6.8 FL Neutrophils (%) (Auto) 80.1 % Lymphocytes (%) (Auto) 11.3 % Monocytes (%) (Auto) 6.0 % Eosinophils (%) (Auto) 1.8 % Basophils (%) (Auto) 0.8 % Neutrophils # (Auto) 10.9 TH/MM3 Lymphocytes # (Auto) 1.5 TH/MM3 Monocytes # (Auto) 0.8 TH/MM3 Eosinophils # (Auto) 0.2 TH/MM3 Basophils # (Auto) 0.1 TH/MM3 CBC Comment DIFF FINAL Differential Comment Sodium Level 137 MEQ/L Potassium Level 3.9 MEQ/L Chloride Level 97 MEQ/L Carbon Dioxide Level 26.2 MEQ/L Anion Gap 14 MEQ/L Blood Urea Nitrogen 48 MG/DL Creatinine 4.44 MG/DL Estimat Glomerular Filtration 10 ML/MIN Rate Random Glucose 120 MG/DL Calcium Level 7.3 MG/DL Protein Corrected Calcium 7.4 MG/DL Magnesium Level 1.5 MG/DL Total Protein 7.0 GM/DL Objective Remarks GENERAL: Morbidly obese female patient in no acute distress. SKIN: Warm and dry. HEAD: Normocephalic and atraumatic. EYES: No injection, drainage, or hyphema noted. PERRLA. EOMI. ENT: No nasal drainage noted. Oropharynx is clear. NECK: Supple and the trachea is midline. CARDIOVASCULAR: Regular rate and rhythm. RESPIRATORY: Breath sounds are equal bilaterally with no accessory muscle use, wheezing, rhonchi, or crackles. GASTROINTESTINAL: Abdomen is soft, non-tender, and nondistended. dressed surgical wound. MUSCULOSKELETAL: No obvious deformities, swelling, cyanosis, or ecchymosis is present throughout the upper and lower extremities. NEUROLOGICAL: Awake, alert, and oriented. Normal speech and gait. Cranial nerves are grossly intact. Medications and IVs Current Medications Medications (Trade) Dose Ordered Sig/Soren Route Start Time Stop Time Status Last Admin (Norvasc) 5 mg BID PO 05/14/16 21:00 05/19/16 22:00 (Ecotrin Ec) 81 mg DAILY PO 05/15/16 09:00 05/19/16 08:16 (Tenormin) 50 mg BID PO 05/14/16 21:00 05/19/16 22:00 (Lipitor) 80 mg HS PO 05/14/16 21:00 05/19/16 21:59 (Prinivil) 20 mg BID PO 05/14/16 21:00 05/19/16 22:01 (Rocaltrol) 0.5 mcg DAILY PO 05/15/16 09:00 05/19/16 08:16 (PROzac) 20 mg DAILY PO 05/15/16 09:00 05/19/16 08:16 (Neurontin) 100 mg BID PO 05/14/16 21:00 05/19/16 21:59 (Synthroid) 300 mcg DAILY@0600 PO 05/15/16 06:00 05/20/16 04:49 (Antivert) 25 mg TID PRN PO 05/14/16 14:15 (Renvela) 800 mg TID PO 05/14/16 18:00 05/19/16 17:52 (Zanaflex) 4 mg TID PRN PO 05/14/16 14:15 (NS Flush) 2 ml UNSCH PRN FLUSH 05/14/16 14:30 (NS Flush) 2 ml BID FLUSH 05/14/16 21:00 05/19/16 22:00 (Tylenol) 650 mg Q4H PRN PO 05/14/16 14:30 05/20/16 04:50 (Zofran Inj) 4 mg Q6H PRN IVP 05/14/16 14:30 (Reglan Inj) 5 mg Q6H PRN IV PUSH 05/14/16 14:30 (Dulcolax Supp) 10 mg DAILY PRN [place] 05/14/16 14:30 (Colace) 100 mg Q12HR PO 05/14/16 21:00 05/19/16 08:16 (Heparin Inj) 5,000 units Q12H SQ 05/14/16 16:00 05/20/16 04:51 Naloxone HCl 0.4 mg 0.4 mg UNSCH PRN IV 05/14/16 14:30 (NS 1000 ml Inj) 1,000 ml @ 0 mls/hr Q0M PRN IV 05/14/16 14:54 05/18/16 13:26 Heparin Sodium (Porcine) 8000 units 8,000 units UNSCH PRN IVF 05/14/16 15:00 Sodium Chloride 1,000 ml @ 200 mls/hr Q5H PRN IV 05/14/16 14:54 (NS 1000 ml Inj) 1,000 ml @ 0 mls/hr Q0M PRN IV 05/14/16 14:54 (Mannitol Inj) 12.5 gm UNSCH PRN IV 05/14/16 15:00 (Albumin 25% Inj) 25 gm UNSCH PRN IV 05/14/16 15:00 (NS Flush) 5 ml UNSCH PRN IVF 05/14/16 15:00 (Heparin Inj) UNSCH PRN .XX 05/14/16 15:00 05/18/16 13:26 (Gentamicin (Dialysis) Inj) 20 mg UNSCH PRN IV 05/14/16 15:00 05/18/16 13:26 (Zofran Inj) 4 mg UNSCH PRN IV 05/14/16 15:00 (Tylenol) 650 mg UNSCH PRN PO 05/14/16 15:00 05/16/16 09:36 (Benadryl) 25 mg UNSCH PRN PO 05/14/16 15:00 (Nitrostat Sl) 0.4 mg UNSCH PRN SL 05/14/16 15:00 (Catapres) 0.1 mg UNSCH PRN PO 05/14/16 15:00 (Epogen Inj) 10,000 units UNSCH PRN IV 05/14/16 15:00 05/18/16 13:26 (Gelfoam 12 Mm/7 Mm Top) 1 foam UNSCH PRN TOP 05/14/16 15:00 (D50w (Vial) Inj) 25 ml UNSCH PRN IV PUSH 05/14/16 18:45 (Glucagon Inj) 1 mg UNSCH PRN OTHER 05/14/16 18:45 (Dakin'S 0.125% Soln) 120 ml DAILY OTHER 05/17/16 15:00 Collagenase 1 applic 1 applic DAILY EXT 05/17/16 15:00 05/18/16 09:00 (Zosyn 2.25 Gm Premix) 50 ml @ 100 mls/hr Q8H IV 05/17/16 01:00 05/20/16 00:38 (Levemir Inj) 30 units Q12H SQ 05/18/16 18:00 05/20/16 04:50 ([place] 10-325 Mg) 1 tab Q4HR PRN PO 05/19/16 20:00 05/20/16 04:49 A/P Problem List: (1) Type II diabetes mellitus with neurological manifestations, uncontrolled ICD Code: E11.49 (2) End stage renal disease on dialysis ICD Code: N18.6 (3) Anemia in chronic kidney disease (CKD) ICD Code: N18.9 (4) Open wound of abdomen ICD Code: S31.109A Assessment and Plan 1. Sepsis/Abdominal pannus wound cellulitis and ulcer, consulted General Surgery , started on Vancomycin and Zosyn and follow blood cultures and wound cultures negative, ID specialist following, status post I and D. at this time continue on Zosyn, awaiting final recommendations by ID specialist and Plastic Surgery for discharge. 2. Morbid Obesity strongly recommended diet and exercise, weight loss warranted. 3. Hypertension controlled. 4. DM II continue sliding scale better control, Hemoglobin A1C 6.8 5. Hyperlipidemia continue home medicines 6. ESRD on Hemodialysis and Friday, at this time going for HD 7. chronic low back pain and chronic pain syndrome asked to increase pain medicine increased frequency to every four hours. 8. Electrolyte derangement patient followed by Nephrology. DVT prophylaxis with Heparin every 12 hours. Code Status Full Code. Discharge Planning Awaiting final recommendations by ID specialist and Surgery. Problem Qualifiers (1) Open wound of abdomen: Qualified Code: S31.109A - Open wound of abdomen, initial encounter Ken Franks MD May 20, 2016 08:31
[2016-05-20] MEDS: GABAPENTIN 100 MG CAP PO SCH ×2 (08:38→20:34)
[2016-05-20] MEDS: FLUoxetine HCL 20 MG CAP PO SCH (08:38)
[2016-05-20] MEDS: CALCITRIOL 0.25 MCG CAP PO SCH (08:38)
[2016-05-20] MEDS: amLODIPine BESYLATE 5 MG TAB PO SCH ×2 (08:39→20:35)
[2016-05-20] MEDS: LISINOPRIL 20 MG TAB PO SCH ×2 (08:39→20:35)
[2016-05-20] MEDS: DOCUSATE SODIUM 100 MG CAP PO SCH ×2 (08:39→20:34)
[2016-05-20] MEDS: SODIUM HYPOCHLORITE 0.125% 500 ML BTL OTHER SCH (08:39)
[2016-05-20] MEDS: ATENOLOL 50 MG TAB PO SCH ×2 (08:39→20:35)
[2016-05-20] MEDS: ASPIRIN EC 81 MG TABEC PO SCH (08:39)
[2016-05-20] MEDS: SODIUM CHLORIDE 0.9% FLUSH 5 ML FLUSH FLUSH SCH ×2 (08:40→20:35)
[2016-05-20] MEDS: COLLAGENASE OINT 30 GM TUBE EXT SCH (08:44)
[2016-05-20] MEDS: SEVELAMER CARBONATE 800 MG TAB PO SCH ×3 (09:00→17:33)
[2016-05-20 11:23] LABS: HEMOGLOBIN A1a 1.2 %; HEMOGLOBIN A1b 2.2 %; HEMOGLOBIN Ao 81.5 %; HEMOGLOBIN LA1C 2.5 %; HEMOGLOBIN P3 6.7 %
[2016-05-20] MEDS ORDERED: LACTULOSE SYRUP 20 GM/30 ML CUP PO ONE (18:00)
[2016-05-20] MEDS: ATORVASTATIN 80 MG TAB PO SCH (20:34)
--- NOTE | 2016-05-20 23:09 | HHI.NPPN ---
Subjective History of Present Illness 55-year-old female known to me from before with past medical history of diabetes mellitus, history of morbid obesity, end-stage renal disease on hemodialysis three times per week, history of chronic anemia, congestive heart failure, spinal stenosis, chronic back pain, hypothyroidism who came to the hospital with complaint of worsening lower abdominal wound. I was called to see the patient for the management of dialysis. The patient has been on hemodialysis Friday, and Friday. Additional Remarks Patient is alert , no SOB, mild abd. discomfort. Review of Systems General Constitutional: Fatigue Respiratory Lungs: SOB Cardiovascular Cardiac: GRIFFIN Objective Data Data 05/19/16 05/20/16 19:00 07:00 Intake Total 650 ml 4 ml Balance 650 ml 4 ml Intake Oral 600 ml IV Total 50 ml 4 ml # Voids 2 # Bowel Movements 1 Vital Signs Date Time Temp Pulse Resp B/P Pulse Ox O2 Delivery O2 Flow Rate FiO2 05/20/16 20:00 99.3 64 20 146/70 99 05/20/16 17:54 96 21 05/20/16 16:00 98.2 64 16 158/71 96 05/20/16 12:00 98.9 60 05/20/16 12:00 98.9 60 14 143/65 95 05/20/16 08:00 63 05/20/16 08:00 99.2 61 14 111/55 93 05/20/16 08:00 94 Room Air 05/20/16 04:00 101.0 66 16 147/66 92 05/20/16 00:00 98.6 62 18 144/65 94 -: 05/20/16 0617 05/20/16 0617 Physical Exam General Appearance: No Acute Distress, Comfortable Eyes Eye Exam: Pupils Equal Throat Throat Exam: Oral Mucosa [place] & Moist Neck Neck Exam: Neck Supple Pulmonary Resp Exam: Breath Sounds Equal, Crackles, Decreased Bases, Diminished Breath Sounds Gastrointestinal/Abdomen GI Exam: Soft, Non-Tender, Distended Extremeties Extremities Exam: Moderate Edema, Pitting Edema, Dependent Edema Neurologic Neuro Exam: Alert, Awake, Oriented Psychiatric Psych Exam: Appropriate Responses Assessment/Plan Assessment Summary: Anemia of CKD, Hypertension, End Stage Renal Disease Problem List: (1) Anemia in chronic kidney disease (CKD) (2) Open wound of abdomen (3) Chronic stasis dermatitis (4) End stage kidney disease Plan Patient is on Zosyn, BP is stable, afebrile. Seen by plastic surgery with debridement Friday night. HD to continue TTS, Remove fluid as tolerated. On Epogen, follow Hgb. Problem Qualifiers (1) Open wound of abdomen: Qualified Code: S31.109A - Open wound of abdomen, initial encounter Valentin Jimenez MD May 20, 2016 23:09 Qualified Code: S31.109A - Open wound of abdomen, initial encounter Valentin Jimenez MD May 20, 2016 23:09
[2016-05-21] VITALS (10 sets, daily range): BP systolic 109–185; BP diastolic 56–76; PULSE 57–67; RESP 16–18; TEMP 98.3–100.2; O2SAT 93–98
[2016-05-21] MEDS: PIPERACIL-TAZO 2.25 GM PREMIX 50 ML IV SCH ×4 (01:53→23:31)
[2016-05-21] MEDS: HEPARIN SODIUM - SQ 10,000 UNITS/ML VIAL SQ SCH ×2 (03:58→16:00)
[2016-05-21] MEDS: ACETAMINOPHEN/HYDROcodone 325 MG/10 MG TAB PO PRN ×6 (04:05→20:44)
[2016-05-21] MEDS: HIGH DOSE INSULIN NOVOLOG SUPPLEMENTAL SCALE SQ SCH ×4 (05:19→20:50)
[2016-05-21] MEDS: INSULIN DETEMIR 100 UNITS/ML VIAL SQ SCH ×2 (05:19→17:08)
[2016-05-21] MEDS: LEVOTHYROXINE SODIUM 150 MCG TAB PO SCH (05:19)
[2016-05-21] MEDS: SODIUM HYPOCHLORITE 0.125% 500 ML BTL OTHER SCH (09:00)
[2016-05-21] MEDS: CALCITRIOL 0.25 MCG CAP PO SCH (09:00)
[2016-05-21] MEDS: COLLAGENASE OINT 30 GM TUBE EXT SCH (09:00)
[2016-05-21] MEDS: SODIUM CHLORIDE 0.9% FLUSH 5 ML FLUSH FLUSH SCH ×2 (09:00→20:51)
[2016-05-21] MEDS: EPOETIN ALFA 10,000 UNITS/ML VIAL IV PRN (10:20)
[2016-05-21] MEDS: HEPARIN SODIUM - IV 10,000 UNITS/10 ML VIAL PRN (10:20)
[2016-05-21] MEDS: SODIUM CHLOR 0.9% 1000 ML INJ 1,000 ML IV PRN (10:20)
[2016-05-21] MEDS: GENTAMICIN SULFATE (DIALYSIS USE ONLY) 20 MG/2 ML VIAL IV PRN (10:20)
[2016-05-21] MEDS: LISINOPRIL 20 MG TAB PO SCH ×2 (12:27→20:43)
[2016-05-21] MEDS: ATENOLOL 50 MG TAB PO SCH ×2 (12:28→20:43)
[2016-05-21] MEDS: GABAPENTIN 100 MG CAP PO SCH ×2 (12:28→20:41)
[2016-05-21] MEDS: amLODIPine BESYLATE 5 MG TAB PO SCH ×2 (12:28→20:43)
[2016-05-21] MEDS: FLUoxetine HCL 20 MG CAP PO SCH (12:28)
[2016-05-21] MEDS: DOCUSATE SODIUM 100 MG CAP PO SCH ×2 (12:29→20:43)
[2016-05-21] MEDS: ASPIRIN EC 81 MG TABEC PO SCH (12:29)
[2016-05-21] MEDS: SEVELAMER CARBONATE 800 MG TAB PO SCH ×3 (12:29→17:08)
--- NOTE | 2016-05-21 14:25 | HHI.PR ---
Subjective Remarks The patient says her pain was controlled with the pills. She says she has been ambulating on her own. She has an area on her right hip and right side of the lower back that is hurting her. Family and nursing at the bedside. Objective Vitals Vital Signs Date Time Temp Pulse Resp B/P Pulse Ox O2 Delivery O2 Flow Rate FiO2 05/21/16 12:00 100.2 67 18 185/76 98 05/21/16 08:00 94 Room Air 05/21/16 08:00 98.5 58 16 155/67 93 05/21/16 04:00 98.3 61 18 158/72 97 05/21/16 00:00 98.5 62 18 138/63 93 05/20/16 20:25 66 05/20/16 20:25 Room Air 05/20/16 20:00 99.3 64 20 146/70 99 05/20/16 17:54 96 21 05/20/16 16:00 98.2 64 16 158/71 96 I/O 05/20/16 05/20/16 05/20/16 05/21/16 05/21/16 05/21/16 07:00 15:00 23:00 07:00 15:00 23:00 Intake Total 2 ml 600 ml 362 ml 240 ml Output Total 0 ml 3000 ml Balance 2 ml 600 ml 362 ml 240 ml -3000 ml Intake Oral 600 ml 360 ml 240 ml IV Total 2 ml 2 ml Output Urine Total 0 ml Hemodialysis 3000 ml # Voids 2 2 3 # Bowel Movements 0 0 0 Result Diagram: 05/20/1661605/20/16616 Objective Remarks GENERAL: Morbidly obese female patient in no acute distress. SKIN: Warm and dry. HEAD: Normocephalic and atraumatic. EYES: No injection, drainage, or hyphema noted. PERRLA. EOMI. ENT: No nasal drainage noted. Oropharynx is clear. NECK: Supple and the trachea is midline. CARDIOVASCULAR: Regular rate and rhythm. RESPIRATORY: Breath sounds are equal bilaterally with no accessory muscle use, wheezing, rhonchi, or crackles. GASTROINTESTINAL: Abdomen is soft, non-tender, and nondistended. dressed surgical wound. Tender to palpation. MUSCULOSKELETAL: No obvious deformities, swelling, cyanosis, or ecchymosis is present throughout the upper and lower extremities. NEUROLOGICAL: Awake, alert, and oriented. Normal speech and gait. Cranial nerves are grossly intact. PSYCH: Mood and affect appropriate. Procedures I&D. Medications and IVs Current Medications Medications (Trade) Dose Ordered Sig/Soren Route Start Time Stop Time Status Last Admin (Norvasc) 5 mg BID PO 05/14/16 21:00 05/21/16 12:28 (Ecotrin Ec) 81 mg DAILY PO 05/15/16 09:00 05/21/16 12:29 (Tenormin) 50 mg BID PO 05/14/16 21:00 05/21/16 12:28 (Lipitor) 80 mg HS PO 05/14/16 21:00 05/20/16 20:34 (Prinivil) 20 mg BID PO 05/14/16 21:00 05/20/16 20:35 (Rocaltrol) 0.5 mcg DAILY PO 05/15/16 09:00 05/21/16 09:00 (PROzac) 20 mg DAILY PO 05/15/16 09:00 05/21/16 12:28 (Neurontin) 100 mg BID PO 05/14/16 21:00 05/21/16 12:28 (Synthroid) 300 mcg DAILY@0600 PO 05/15/16 06:00 05/21/16 05:19 (Antivert) 25 mg TID PRN PO 05/14/16 14:15 (Renvela) 800 mg TID PO 05/14/16 18:00 05/21/16 12:29 (Zanaflex) 4 mg TID PRN PO 05/14/16 14:15 (NS Flush) 2 ml UNSCH PRN FLUSH 05/14/16 14:30 (NS Flush) 2 ml BID FLUSH 05/14/16 21:00 05/21/16 09:00 (Tylenol) 650 mg Q4H PRN PO 05/14/16 14:30 05/20/16 04:50 (Zofran Inj) 4 mg Q6H PRN IVP 05/14/16 14:30 (Reglan Inj) 5 mg Q6H PRN IV PUSH 05/14/16 14:30 (Dulcolax Supp) 10 mg DAILY PRN [place] 05/14/16 14:30 (Colace) 100 mg Q12HR PO 05/14/16 21:00 05/21/16 12:29 (Heparin Inj) 5,000 units Q12H SQ 05/14/16 16:00 05/21/16 03:58 Naloxone HCl 0.4 mg 0.4 mg UNSCH PRN IV 05/14/16 14:30 (NS 1000 ml Inj) 1,000 ml @ 0 mls/hr Q0M PRN IV 05/14/16 14:54 05/18/16 13:26 Heparin Sodium (Porcine) 8000 units 8,000 units UNSCH PRN IVF 05/14/16 15:00 Sodium Chloride 1,000 ml @ 200 mls/hr Q5H PRN IV 05/14/16 14:54 05/21/16 10:20 (NS 1000 ml Inj) 1,000 ml @ 0 mls/hr Q0M PRN IV 05/14/16 14:54 (Mannitol Inj) 12.5 gm UNSCH PRN IV 05/14/16 15:00 (Albumin 25% Inj) 25 gm UNSCH PRN IV 05/14/16 15:00 (NS Flush) 5 ml UNSCH PRN IVF 05/14/16 15:00 (Heparin Inj) UNSCH PRN .XX 05/14/16 15:00 05/21/16 10:20 (Gentamicin (Dialysis) Inj) 20 mg UNSCH PRN IV 05/14/16 15:00 05/21/16 10:20 (Zofran Inj) 4 mg UNSCH PRN IV 05/14/16 15:00 (Tylenol) 650 mg UNSCH PRN PO 05/14/16 15:00 05/16/16 09:36 (Benadryl) 25 mg UNSCH PRN PO 05/14/16 15:00 (Nitrostat Sl) 0.4 mg UNSCH PRN SL 05/14/16 15:00 (Catapres) 0.1 mg UNSCH PRN PO 05/14/16 15:00 (Epogen Inj) 10,000 units UNSCH PRN IV 05/14/16 15:00 05/21/16 10:20 (Gelfoam 12 Mm/7 Mm Top) 1 foam UNSCH PRN TOP 05/14/16 15:00 (D50w (Vial) Inj) 25 ml UNSCH PRN IV PUSH 05/14/16 18:45 (Glucagon Inj) 1 mg UNSCH PRN OTHER 05/14/16 18:45 (Dakin'S 0.125% Soln) 120 ml DAILY OTHER 05/17/16 15:00 Collagenase 1 applic 1 applic DAILY EXT 05/17/16 15:00 05/18/16 09:00 (Zosyn 2.25 Gm Premix) 50 ml @ 100 mls/hr Q8H IV 05/17/16 01:00 05/21/16 01:53 (Levemir Inj) 30 units Q12H SQ 05/18/16 18:00 05/21/16 05:19 ([place] 10-325 Mg) 1 tab Q4HR PRN PO 05/19/16 20:00 05/21/16 12:27 A/P Assessment and Plan Sepsis/Abdominal pannus/ Wound cellulitis and ulcer General surgery and plastic surgery following. Started on vancomycin and Zosyn. Cultures growing pseudomonas. ID following. - continue Zosyn and follow up with ID. - wound care per surgery. - physical therapy. - incentive spirometry. Morbid Obesity BMI 65.7. - strongly recommended diet and exercise. DM II A1c 6.8%. - continue insulin and sliding scale. ESRD On Hemodialysis and Friday. - dialysis per nephrology. Chronic low back pain and chronic pain syndrome Asked to increase pain medicine. - increased frequency to every four hours. DVT prophylaxis with Heparin every 12 hours. Discharge Planning Awaiting clinical improvement. Jacoby Sanchez DO May 21, 2016 14:25
--- NOTE | 2016-05-21 16:11 | HHI.NPPN ---
Subjective History of Present Illness 55-year-old female known to me from before with past medical history of diabetes mellitus, history of morbid obesity, end-stage renal disease on hemodialysis three times per week, history of chronic anemia, congestive heart failure, spinal stenosis, chronic back pain, hypothyroidism who came to the hospital with complaint of worsening lower abdominal wound. I was called to see the patient for the management of dialysis. The patient has been on hemodialysis Friday, and Friday. Additional Remarks Patient is alert, clinically same, not in distress. Review of Systems General Constitutional: Fatigue Respiratory Lungs: SOB Cardiovascular Cardiac: GRIFFIN Objective Data Data 05/20/16 05/21/16 19:00 07:00 Intake Total 600 ml 602 ml Output Total 0 ml Balance 600 ml 602 ml Intake Oral 600 ml 600 ml IV Total 2 ml Output Urine Total 0 ml # Voids 2 5 # Bowel Movements 0 0 Vital Signs Date Time Temp Pulse Resp B/P Pulse Ox O2 Delivery O2 Flow Rate FiO2 05/21/16 12:00 100.2 67 18 185/76 98 05/21/16 08:00 94 Room Air 05/21/16 08:00 98.5 58 16 155/67 93 05/21/16 04:00 98.3 61 18 158/72 97 05/21/16 00:00 98.5 62 18 138/63 93 05/20/16 20:25 66 05/20/16 20:25 Room Air 05/20/16 20:00 99.3 64 20 146/70 99 05/20/16 17:54 96 21 -: 05/20/16 0617 05/20/16 0617 Physical Exam General Appearance: No Acute Distress, Comfortable Eyes Eye Exam: Pupils Equal Throat Throat Exam: Oral Mucosa [place] & Moist Neck Neck Exam: Neck Supple Pulmonary Resp Exam: Breath Sounds Equal, Crackles, Decreased Bases, Diminished Breath Sounds Gastrointestinal/Abdomen GI Exam: Soft, Non-Tender, Distended Extremeties Extremities Exam: Moderate Edema, Pitting Edema, Dependent Edema Neurologic Neuro Exam: Alert, Awake, Oriented Psychiatric Psych Exam: Appropriate Responses Assessment/Plan Assessment Summary: Anemia of CKD, Hypertension, End Stage Renal Disease Problem List: (1) Anemia in chronic kidney disease (CKD) (2) Open wound of abdomen (3) Chronic stasis dermatitis (4) End stage kidney disease Plan Patient is on Zosyn, BP is stable, afebrile. Seen by plastic surgery with debridement Friday night. Continue HD TTS. Follow Hgb, and follow up by surgery. Problem Qualifiers (1) Open wound of abdomen: Qualified Code: S31.109A - Open wound of abdomen, initial encounter Valentin Jimenez MD May 21, 2016 16:11 (1) Open wound of abdomen: Qualified Code: S31.109A - Open wound of abdomen, initial encounter Valentin Jimenez MD May 21, 2016 16:11
[2016-05-21] MEDS: ATORVASTATIN 80 MG TAB PO SCH (20:42)
[2016-05-22] VITALS (9 sets, daily range): BP systolic 103–153; BP diastolic 57–67; PULSE 56–68; RESP 18–20; TEMP 97.7–99.6; O2SAT 92–99
[2016-05-22] MEDS: HEPARIN SODIUM - SQ 10,000 UNITS/ML VIAL SQ SCH ×2 (06:06→15:17)
[2016-05-22] MEDS: LEVOTHYROXINE SODIUM 150 MCG TAB PO SCH (06:06)
[2016-05-22] MEDS: ACETAMINOPHEN/HYDROcodone 325 MG/10 MG TAB PO PRN ×4 (06:07→22:07)
[2016-05-22] MEDS: INSULIN DETEMIR 100 UNITS/ML VIAL SQ SCH ×2 (06:07→18:17)
[2016-05-22] MEDS: HIGH DOSE INSULIN NOVOLOG SUPPLEMENTAL SCALE SQ SCH ×4 (06:10→21:00)
[2016-05-22 06:22] LABS: HEMATOCRIT 26.3 % (35.0-46.0); MEAN CELL VOLUME 77.6 FL (80.0-100.0); MEAN CORPUSCULAR HEMOGLOBIN 24.8 PG (27.0-34.0); PLATELET COUNT 358 TH/MM3 (150-450); RED BLOOD COUNT 3.39 MIL/MM3 (4.00-5.30); RED CELL DISTRIBUTION WIDTH 20.8 % (11.6-17.2); WHITE BLOOD COUNT 14.3 TH/MM3 (4.0-11.0)
[2016-05-22 06:28] LABS: REVIEW FLAG FINAL
[2016-05-22 06:53] LABS: BICARBONATE 27.2 MEQ/L (21.0-32.0); MAGNESIUM 1.5 MG/DL (1.5-2.5); POTASSIUM 4.1 MEQ/L (3.5-5.1)
[2016-05-22 07:29] LABS: CALCIUM-PROTEIN CORRECTED 7.8 MG/DL (8.5-10.1)
--- NOTE | 2016-05-22 08:53 | MP ---
cc: KYLER JOHNSON M.D. DATE OF SURGERY May 17, 2016 PREOPERATIVE DIAGNOSIS Large necrotic wound right lower abdominal pannus. POSTOPERATIVE DIAGNOSIS Large necrotic wound right lower abdominal pannus. OPERATION Excision large open wound 25 x 15 cm right side lower abdominal pannus. SURGEON Dr. Johnson ANESTHESIA General. INDICATIONS A 55-year-old white female, extremely obese, approximately 350+ pound weight with very large abdominal pannus and a large open wound, possibly due to simple friction of the skin, breakdown on the underside of the pannus with secondary infection and necrosis taking over. The patient has been evaluated from a medical standpoint over the last 48+ hours. She came in with a hemoglobin of 6.5, needed dialysis, IV antibiotic and has been stabilized now. Her last hemoglobin reported was 9.5. She looks and feels better. She understands the surgery will be to excise all the necrotic tissue at the present time, nothing else and that she is still a high risk for complications including those from anesthesia, from the surgery and multiple future surgeries are likely in the future. She also understands that the open wound will have to heal secondarily at this point, no immediate closure is possible. PROCEDURE The patient was brought to the operating room, was given general anesthesia in supine position in her bed and was then transferred using the air inflation mattress system to the operating table. Her arms were adequately padded. Once the anesthesia was satisfactory and stable, the prep and drape was done. Time-out was called and completed. Taking about 1 inch on the edge of the viable tissue, several small holes were made with a Bovie electrocautery and using an infiltration cannula, a total of about 1000 cc Ringer lactate plus lidocaine 1% with epi 50 cc and 1 cc of additional epinephrine was used to fill all the soft tissue surrounding the necrotic wound. The overall area of excision would be 25 cm across and about 10 cm vertical. The wound itself is 6-8 cm deep. Using a heavy coagulation Bovie, the surgery was completed mostly using Bovie excision, some excision with knife and scissors in select areas. Starting on the top, going horizontal, the upper-half of the wound was directly excised into the normal-looking fat with the hydrodissection helping the hemostasis and identification of tissue planes. Also the very large blood vessels which were encountered were directly clamped and cut and suture ligated with 2-0 Vicryl [id number] suture. Each one was tied twice. All the necrotic tissue was meticulously removed along with approximately 1 inch of normal tissue from all sides. The resulting cavity appeared fairly clean and viable. The cavity was scrubbed clean with Betadine soap and scrub brush and irrigated clean. Hemostasis was double-checked. The approximate blood loss during the surgery is 75 cc or less. Also, a culture sample had been taken prior to the prep and drape. The entire area was packed with Betadine-soaked Martina bandages. The patient remained stable through the surgery. No complications. signed, not fully reviewed MD GLO Parnell/SHAYAN /10:11 AM /7:41 AM [id number]
[2016-05-22] MEDS: CALCITRIOL 0.25 MCG CAP PO SCH (09:00)
[2016-05-22] MEDS: GABAPENTIN 100 MG CAP PO SCH ×2 (09:27→22:07)
[2016-05-22] MEDS: SEVELAMER CARBONATE 800 MG TAB PO SCH ×3 (09:27→18:17)
[2016-05-22] MEDS: amLODIPine BESYLATE 5 MG TAB PO SCH ×2 (09:28→22:09)
[2016-05-22] MEDS: ATENOLOL 50 MG TAB PO SCH ×2 (09:28→22:08)
[2016-05-22] MEDS: DOCUSATE SODIUM 100 MG CAP PO SCH ×2 (09:28→22:09)
[2016-05-22] MEDS: ASPIRIN EC 81 MG TABEC PO SCH (09:28)
[2016-05-22] MEDS: FLUoxetine HCL 20 MG CAP PO SCH (09:28)
[2016-05-22] MEDS: LISINOPRIL 20 MG TAB PO SCH ×2 (09:28→22:08)
[2016-05-22] MEDS: PIPERACIL-TAZO 2.25 GM PREMIX 50 ML IV SCH (09:38)
--- NOTE | 2016-05-22 11:12 | HHI.NPPN ---
Subjective History of Present Illness 55-year-old female known to me from before with past medical history of diabetes mellitus, history of morbid obesity, end-stage renal disease on hemodialysis three times per week, history of chronic anemia, congestive heart failure, spinal stenosis, chronic back pain, hypothyroidism who came to the hospital with complaint of worsening lower abdominal wound. I was called to see the patient for the management of dialysis. The patient has been on hemodialysis Friday, and Friday. Additional Remarks Patient is alert, has mild abd. pain, not in distress. Review of Systems General Constitutional: Fatigue Respiratory Lungs: SOB Cardiovascular Cardiac: GRIFFIN Objective Data Data 05/21/16 05/22/16 19:00 07:00 Intake Total 240 ml 480 ml Output Total 3000 ml Balance -2760 ml 480 ml Intake Oral 240 ml 480 ml Output Urine Total 0 ml Hemodialysis 3000 ml # Voids 4 4 # Bowel Movements 0 0 Vital Signs Date Time Temp Pulse Resp B/P Pulse Ox O2 Delivery O2 Flow Rate FiO2 05/22/16 09:33 56 05/22/16 08:00 98.4 57 18 103/57 99 05/22/16 08:00 Room Air 05/22/16 04:44 98.4 60 18 150/67 92 05/21/16 23:15 98.8 64 18 150/67 95 05/21/16 20:00 Room Air 05/21/16 20:00 65 05/21/16 19:40 99.1 64 18 149/67 94 05/21/16 18:09 97 21 05/21/16 16:00 98.8 60 18 109/56 97 05/21/16 12:00 100.2 67 18 185/76 98 -: 05/22/16 0502 05/22/16 0552 Physical Exam General Appearance: No Acute Distress, Comfortable Eyes Eye Exam: Pupils Equal Throat Throat Exam: Oral Mucosa [place] & Moist Neck Neck Exam: Neck Supple Pulmonary Resp Exam: Breath Sounds Equal, Crackles, Decreased Bases, Diminished Breath Sounds Gastrointestinal/Abdomen GI Exam: Soft, Non-Tender, Distended Extremeties Extremities Exam: Moderate Edema, Pitting Edema, Dependent Edema Neurologic Neuro Exam: Alert, Awake, Oriented Psychiatric Psych Exam: Appropriate Responses Assessment/Plan Assessment Summary: Anemia of CKD, Hypertension, End Stage Renal Disease Problem List: (1) Anemia in chronic kidney disease (CKD) (2) Open wound of abdomen (3) Chronic stasis dermatitis (4) End stage kidney disease Plan Patient is on Zosyn, BP is stable, afebrile. Seen by plastic surgery with debridement Friday night. HD done on Sat., tolerated well. Follow hemoglobin, transfused last week. Follow up management plans per surgery. Problem Qualifiers (1) Anemia in chronic kidney disease (CKD): Qualified Code: N18.6 - Anemia in chronic kidney disease, on chronic dialysis (2) Open wound of abdomen: Qualified Code: S31.109A - Open wound of abdomen, initial encounter Valentin Jimenez MD May 22, 2016 11:12
--- NOTE | 2016-05-22 11:36 | HHI.PR ---
Subjective Remarks The pt complained of a wound on her right buttocks and right hip area. She was able to get out of bed to show the nurse and I the areas of concern. Otherwise she was feeling well. Family at the bedside. Objective Vitals Vital Signs Date Time Temp Pulse Resp B/P Pulse Ox O2 Delivery O2 Flow Rate FiO2 05/22/16 09:33 56 05/22/16 08:00 98.4 57 18 103/57 99 05/22/16 08:00 Room Air 05/22/16 04:44 98.4 60 18 150/67 92 05/21/16 23:15 98.8 64 18 150/67 95 05/21/16 20:00 Room Air 05/21/16 20:00 65 05/21/16 19:40 99.1 64 18 149/67 94 05/21/16 18:09 97 21 05/21/16 16:00 98.8 60 18 109/56 97 05/21/16 12:00 100.2 67 18 185/76 98 I/O 05/21/16 05/21/16 05/21/16 05/22/16 05/22/16 05/22/16 07:00 15:00 23:00 07:00 15:00 23:00 Intake Total 240 ml 240 ml 240 ml 240 ml Output Total 3000 ml Balance 240 ml -2760 ml 240 ml 240 ml Intake Oral 240 ml 240 ml 240 ml 240 ml Output Urine Total 0 ml Hemodialysis 3000 ml # Voids 3 4 3 1 # Bowel Movements 0 0 0 0 Result Diagram: 05/22/16 0502 05/22/16 0552 Objective Remarks GENERAL: Morbidly obese female patient in no acute distress. SKIN: Warm and dry. Wound in gluteal cleft and the right hip/ buttocks area. HEAD: Normocephalic and atraumatic. EYES: No injection, drainage, or hyphema noted. PERRLA. EOMI. ENT: No nasal drainage noted. Oropharynx is clear. NECK: Supple and the trachea is midline. CARDIOVASCULAR: Regular rate and rhythm. RESPIRATORY: Breath sounds are equal bilaterally with no accessory muscle use, wheezing, rhonchi, or crackles. GASTROINTESTINAL: Abdomen is soft, non-tender, and nondistended. dressed surgical wound. Tender to palpation. MUSCULOSKELETAL: No obvious deformities, swelling, cyanosis, or ecchymosis is present throughout the upper and lower extremities. NEUROLOGICAL: Awake, alert, and oriented. Normal speech and gait. Cranial nerves are grossly intact. PSYCH: Mood and affect appropriate. Procedures I&D. Medications and IVs Current Medications Medications (Trade) Dose Ordered Sig/Soren Route Start Time Stop Time Status Last Admin (Norvasc) 5 mg BID PO 05/14/16 21:00 05/22/16 09:28 (Ecotrin Ec) 81 mg DAILY PO 05/15/16 09:00 05/22/16 09:28 (Tenormin) 50 mg BID PO 05/14/16 21:00 05/22/16 09:28 (Lipitor) 80 mg HS PO 05/14/16 21:00 05/21/16 20:42 (Prinivil) 20 mg BID PO 05/14/16 21:00 05/22/16 09:28 (Rocaltrol) 0.5 mcg DAILY PO 05/15/16 09:00 05/22/16 09:00 (PROzac) 20 mg DAILY PO 05/15/16 09:00 05/22/16 09:28 (Neurontin) 100 mg BID PO 05/14/16 21:00 05/22/16 09:27 (Synthroid) 300 mcg DAILY@0600 PO 05/15/16 06:00 05/22/16 06:06 (Antivert) 25 mg TID PRN PO 05/14/16 14:15 (Renvela) 800 mg TID PO 05/14/16 18:00 05/22/16 09:27 (Zanaflex) 4 mg TID PRN PO 05/14/16 14:15 05/21/16 23:31 (NS Flush) 2 ml UNSCH PRN FLUSH 05/14/16 14:30 (NS Flush) 2 ml BID FLUSH 05/14/16 21:00 05/21/16 20:51 (Tylenol) 650 mg Q4H PRN PO 05/14/16 14:30 05/20/16 04:50 (Zofran Inj) 4 mg Q6H PRN IVP 05/14/16 14:30 (Reglan Inj) 5 mg Q6H PRN IV PUSH 05/14/16 14:30 (Dulcolax Supp) 10 mg DAILY PRN [place] 05/14/16 14:30 (Colace) 100 mg Q12HR PO 05/14/16 21:00 05/22/16 09:28 (Heparin Inj) 5,000 units Q12H SQ 05/14/16 16:00 05/22/16 06:06 Naloxone HCl 0.4 mg 0.4 mg UNSCH PRN IV 05/14/16 14:30 (NS 1000 ml Inj) 1,000 ml @ 0 mls/hr Q0M PRN IV 05/14/16 14:54 05/18/16 13:26 Heparin Sodium (Porcine) 8000 units 8,000 units UNSCH PRN IVF 05/14/16 15:00 Sodium Chloride 1,000 ml @ 200 mls/hr Q5H PRN IV 05/14/16 14:54 05/21/16 10:20 (NS 1000 ml Inj) 1,000 ml @ 0 mls/hr Q0M PRN IV 05/14/16 14:54 (Mannitol Inj) 12.5 gm UNSCH PRN IV 05/14/16 15:00 (Albumin 25% Inj) 25 gm UNSCH PRN IV 05/14/16 15:00 (NS Flush) 5 ml UNSCH PRN IVF 05/14/16 15:00 (Heparin Inj) UNSCH PRN .XX 05/14/16 15:00 05/21/16 10:20 (Gentamicin (Dialysis) Inj) 20 mg UNSCH PRN IV 05/14/16 15:00 05/21/16 10:20 (Zofran Inj) 4 mg UNSCH PRN IV 05/14/16 15:00 (Tylenol) 650 mg UNSCH PRN PO 05/14/16 15:00 05/16/16 09:36 (Benadryl) 25 mg UNSCH PRN PO 05/14/16 15:00 (Nitrostat Sl) 0.4 mg UNSCH PRN SL 05/14/16 15:00 (Catapres) 0.1 mg UNSCH PRN PO 05/14/16 15:00 (Epogen Inj) 10,000 units UNSCH PRN IV 05/14/16 15:00 05/21/16 10:20 (Gelfoam 12 Mm/7 Mm Top) 1 foam UNSCH PRN TOP 05/14/16 15:00 (D50w (Vial) Inj) 25 ml UNSCH PRN IV PUSH 05/14/16 18:45 (Glucagon Inj) 1 mg UNSCH PRN OTHER 05/14/16 18:45 (Dakin'S 0.125% Soln) 120 ml DAILY OTHER 05/17/16 15:00 Collagenase 1 applic 1 applic DAILY EXT 05/17/16 15:00 05/18/16 09:00 (Zosyn 2.25 Gm Premix) 50 ml @ 100 mls/hr Q8H IV 05/17/16 01:00 05/22/16 09:38 (Levemir Inj) 30 units Q12H SQ 05/18/16 18:00 05/22/16 06:07 ([place] 10-325 Mg) 1 tab Q4HR PRN PO 05/19/16 20:00 05/22/16 11:01 A/P Assessment and Plan Sepsis/Abdominal pannus/ Wound cellulitis and ulcer General surgery and plastic surgery following. Started on vancomycin and Zosyn. Cultures growing pseudomonas. ID following. - continue Zosyn and follow up with ID. - wound care per surgery. - physical therapy. - incentive spirometry. Buttocks wound/ soft tissue wound on the right The pt has been complaining of pain in her buttocks and on the right side. - wound consult requested. Morbid Obesity BMI 65.7. - strongly recommended diet and exercise. DM II A1c 6.8%. Glucose slightly elevated 05/22. - continue insulin and sliding scale. Adjust regimen as needed. ESRD On Hemodialysis and Friday. - dialysis per nephrology. Chronic low back pain and chronic pain syndrome Asked to increase pain medicine. - increased frequency to every four hours. DVT prophylaxis with Heparin every 12 hours. Discharge Planning Awaiting clinical improvement. Jacoby Sanchez DO May 22, 2016 11:36
--- NOTE | 2016-05-22 12:34 | HHI.IDPN ---
Subjective Subjective Remarks Notes reviewed No fever Had excisional debridement of large ulcer 05/17 C/S with PSAE Has occ low grade temps C/O some pain in her R hip Also now with sore in coccyx and pannus R abdomen Antibiotics Zosyn Lines PIV Past Medical History Osteoarthritis Morbid obesity CAD status post Cardiac Catheterization and stent placement Hyperlipidemia CHF DM II ESRD on Hemodialysis T Th S Hypertension Spinal stenosis REESE Hypothyroidism. Past Surgical History Lap Band 2004 Laparoscopic Cholecystectomy 1996 PCI and stent placement June 2012 Dialysis Catheter placement on right C Section x 1 LUE AV fistula Allergies: Coded Allergies: Biaxin (Verified Allergy, Severe, swelling of face, 05/10/16) Iron (Verified Adverse Reaction, Severe, Constipation, 05/10/16) Objective . Vital Signs Date Time Temp Pulse Resp B/P Pulse Ox O2 Delivery O2 Flow Rate FiO2 05/22/16 09:33 56 05/22/16 08:00 98.4 57 18 103/57 99 05/22/16 08:00 Room Air 05/22/16 04:44 98.4 60 18 150/67 92 05/21/16 23:15 98.8 64 18 150/67 95 05/21/16 20:00 Room Air 05/21/16 20:00 65 05/21/16 19:40 99.1 64 18 149/67 94 05/21/16 18:09 97 21 05/21/16 16:00 98.8 60 18 109/56 97 05/21/16 05/21/16 05/22/16 15:00 23:00 07:00 Intake Total 240 ml 240 ml 240 ml Output Total 3000 ml Balance -2760 ml 240 ml 240 ml Intake Oral 240 ml 240 ml 240 ml Output Urine Total 0 ml Hemodialysis 3000 ml # Voids 4 3 1 # Bowel Movements 0 0 0 . Laboratory Tests Test 05/22/16 05:02 White Blood Count 14.3 TH/MM3 Red Blood Count 3.39 MIL/MM3 Hemoglobin 8.4 GM/DL Hematocrit 26.3 % Mean Corpuscular Volume 77.6 FL Mean Corpuscular Hemoglobin 24.8 PG Mean Corpuscular Hemoglobin 32.0 % Concent Red Cell Distribution Width 20.8 % Platelet Count 358 TH/MM3 Mean Platelet Volume 6.9 FL Laboratory Tests Test 05/22/16 05:52 Sodium Level 140 MEQ/L Potassium Level 4.1 MEQ/L Chloride Level 97 MEQ/L Carbon Dioxide Level 27.2 MEQ/L Anion Gap 16 MEQ/L Blood Urea Nitrogen 40 MG/DL Creatinine 3.65 MG/DL Estimat Glomerular Filtration 13 ML/MIN Rate Random Glucose 230 MG/DL Calcium Level 6.9 MG/DL Protein Corrected Calcium 7.8 MG/DL Magnesium Level 1.5 MG/DL Total Protein 5.3 GM/DL Physical Exam GENERAL: awake and alert, NAD SKIN: Cool and dry. No generalized rash. HEENT: [place] conjunctivae. No scleral icterus. No injection or drainage. Moist oral mucosa. NECK: Supple, nontender, no meningeal signs. CARDIOVASCULAR: Regular rate and rhythm. Soft heart sounds. RESPIRATORY: Clear to auscultation. Breath sounds equal bilaterally. Decreased BS at bases GASTROINTESTINAL: Abdomen is obese, has large pannus, and there is a large open wound with packing. Cellulitis better. There is a black eschar R lateral pannus. No guarding, no rebound. (+) BS normoactive. MUSCULOSKELETAL: BLE has leather texture brown color of her whole leg and feet. Warm, no cyanosis. No calf tenderness. NEUROLOGICAL: Awake and alert. Cranial nerves II through XII intact. Motor and sensory grossly within normal limits. Normal speech. PSYCH: Normal affect, calm and cooperative Assessment & Plan Remarks IMPRESSION Large open necrotic, infected wound, abdominal pannus R, with surrounding cellulitis - improving cellulitis - S/P debriment Leukocytosis due to the infected wound, better ESRD on HD Morbid obesity Anemia RECOMMENDATION Wound care Change Zosyn to cefepime When ready for D/C will switch to Fortaz to be given with HD, and give 6 more doses Monitor progress Explained plan to patient and son Shea Zavala MD May 22, 2016 12:34
[2016-05-22] MEDS: CEFEPIME INJ 2,000 MG in SODIUM CHLORIDE 0.9% INJ 100 ML IV SCH (15:18)
[2016-05-22] MEDS: ATORVASTATIN 80 MG TAB PO SCH (22:08)
[2016-05-22] MEDS: SODIUM CHLORIDE 0.9% FLUSH 5 ML FLUSH FLUSH SCH (22:09)
[2016-05-23] VITALS (7 sets, daily range): BP systolic 60–154; BP diastolic 58–71; PULSE 60–71; RESP 18–20; TEMP 98–99.4; O2SAT 92–98
[2016-05-23] MEDS: HEPARIN SODIUM - SQ 10,000 UNITS/ML VIAL SQ SCH ×2 (04:49→16:20)
[2016-05-23] MEDS: INSULIN DETEMIR 100 UNITS/ML VIAL SQ SCH ×2 (06:00→20:33)
[2016-05-23] MEDS: ACETAMINOPHEN/HYDROcodone 325 MG/10 MG TAB PO PRN ×4 (06:47→20:34)
[2016-05-23] MEDS: LEVOTHYROXINE SODIUM 150 MCG TAB PO SCH (06:48)
[2016-05-23] MEDS: HIGH DOSE INSULIN NOVOLOG SUPPLEMENTAL SCALE SQ SCH ×4 (06:48→20:33)
[2016-05-23 08:30] LABS: HEMATOCRIT 29.7 % (35.0-46.0); MEAN CELL VOLUME 78.4 FL (80.0-100.0); MEAN CORPUSCULAR HEMOGLOBIN 24.2 PG (27.0-34.0); MEAN CORPUSCULAR HGB CONC 30.9 % (32.0-36.0); PLATELET COUNT 450 TH/MM3 (150-450); RED BLOOD COUNT 3.79 MIL/MM3 (4.00-5.30); RED CELL DISTRIBUTION WIDTH 20.9 % (11.6-17.2); REVIEW FLAG FINAL; WHITE BLOOD COUNT 14.5 TH/MM3 (4.0-11.0)
[2016-05-23 08:44] LABS: BICARBONATE 29.2 MEQ/L (21.0-32.0); MAGNESIUM 1.5 MG/DL (1.5-2.5); POTASSIUM 3.9 MEQ/L (3.5-5.1)
[2016-05-23] MEDS: SODIUM CHLORIDE 0.9% FLUSH 5 ML FLUSH FLUSH SCH ×2 (09:00→20:34)
[2016-05-23] MEDS: CALCITRIOL 0.25 MCG CAP PO SCH (09:00)
[2016-05-23] MEDS: SODIUM CHLOR 0.9% 1000 ML INJ 1,000 ML IV PRN (10:57)
[2016-05-23] MEDS: HEPARIN SODIUM - IV 10,000 UNITS/10 ML VIAL PRN (10:58)
[2016-05-23] MEDS: EPOETIN ALFA 10,000 UNITS/ML VIAL IV PRN (10:58)
[2016-05-23] MEDS: GENTAMICIN SULFATE (DIALYSIS USE ONLY) 20 MG/2 ML VIAL IV PRN (10:58)
--- NOTE | 2016-05-23 11:46 | HHI.NPPN ---
Subjective History of Present Illness 55-year-old female known to me from before with past medical history of diabetes mellitus, history of morbid obesity, end-stage renal disease on hemodialysis three times per week, history of chronic anemia, congestive heart failure, spinal stenosis, chronic back pain, hypothyroidism who came to the hospital with complaint of worsening lower abdominal wound. I was called to see the patient for the management of dialysis. The patient has been on hemodialysis Friday, and Friday. Additional Remarks Patient is alert, seen during HD, not in distress. Review of Systems General Constitutional: Fatigue Respiratory Lungs: SOB Cardiovascular Cardiac: GRIFFIN Objective Data Data 05/22/16 05/23/16 19:00 07:00 Intake Total 480 ml 840 ml Balance 480 ml 840 ml Intake Oral 480 ml 840 ml # Voids 3 4 # Bowel Movements 0 1 Vital Signs Date Time Temp Pulse Resp B/P Pulse Ox O2 Delivery O2 Flow Rate FiO2 05/23/16 08:00 98.2 68 18 146/64 96 05/23/16 04:10 98.8 60 18 154/70 95 05/22/16 23:35 99.6 68 18 146/61 93 05/22/16 20:00 Room Air 05/22/16 20:00 58 05/22/16 19:58 98.8 60 18 153/64 99 05/22/16 16:19 20 05/22/16 16:00 98.4 65 20 146/62 98 05/22/16 12:25 97 05/22/16 12:00 97.7 63 20 147/66 98 -: 05/23/16 0712 05/23/16 0712 Physical Exam General Appearance: No Acute Distress, Comfortable Eyes Eye Exam: Pupils Equal Throat Throat Exam: Oral Mucosa [place] & Moist Neck Neck Exam: Neck Supple Pulmonary Resp Exam: Breath Sounds Equal, Crackles, Decreased Bases, Diminished Breath Sounds Gastrointestinal/Abdomen GI Exam: Soft, Non-Tender, Distended Extremeties Extremities Exam: Moderate Edema, Pitting Edema, Dependent Edema Neurologic Neuro Exam: Alert, Awake, Oriented Psychiatric Psych Exam: Appropriate Responses Assessment/Plan Assessment Summary: Anemia of CKD, Hypertension, End Stage Renal Disease Problem List: (1) Anemia in chronic kidney disease (CKD) (2) Open wound of abdomen (3) Chronic stasis dermatitis (4) End stage kidney disease Plan Now on HD, BP is stable. Hgb. is better, on Epogen with HD. Afebrile, ID is following. Now on Cefepime. Continue the wound care. HD to continue TTS. Problem Qualifiers (1) Open wound of abdomen: Qualified Code: S31.109A - Open wound of abdomen, initial encounter Valentin Jimenez MD May 23, 2016 11:45
--- NOTE | 2016-05-23 11:58 | HHI.PR ---
Subjective Remarks The patient was seen at dialysis. She said she has significant pain in her right hip and she wanted the wound evaluated. She also requested additional pain medication for dressing changes. She had no other acute complaints. Discussed with nursing. Objective Vitals Vital Signs Date Time Temp Pulse Resp B/P Pulse Ox O2 Delivery O2 Flow Rate FiO2 05/23/16 08:00 98.2 68 18 146/64 96 05/23/16 04:10 98.8 60 18 154/70 95 05/22/16 23:35 99.6 68 18 146/61 93 05/22/16 20:00 Room Air 05/22/16 20:00 58 05/22/16 19:58 98.8 60 18 153/64 99 05/22/16 16:19 20 05/22/16 16:00 98.4 65 20 146/62 98 05/22/16 12:25 97 05/22/16 12:00 97.7 63 20 147/66 98 I/O 05/22/16 05/22/16 05/22/16 05/23/16 05/23/16 05/23/16 07:00 15:00 23:00 07:00 15:00 23:00 Intake Total 240 ml 480 ml 360 ml 480 ml Output Total 3000 ml Balance 240 ml 480 ml 360 ml 480 ml -3000 ml Intake Oral 240 ml 480 ml 360 ml 480 ml Hemodialysis 3000 ml # Voids 1 3 3 1 # Bowel Movements 0 0 1 Result Diagram: 05/23/1612 05/23/16 0712 Objective Remarks GENERAL: Morbidly obese female patient in no acute distress. SKIN: Warm and dry. Wound in gluteal cleft and the right hip/ buttocks area. HEAD: Normocephalic and atraumatic. EYES: No injection, drainage, or hyphema noted. PERRLA. EOMI. ENT: No nasal drainage noted. Oropharynx is clear. NECK: Supple and the trachea is midline. CARDIOVASCULAR: Regular rate and rhythm. RESPIRATORY: Breath sounds are equal bilaterally with no accessory muscle use, wheezing, rhonchi, or crackles. GASTROINTESTINAL: Abdomen is soft, non-tender, and nondistended. dressed surgical wound. Tender to palpation. MUSCULOSKELETAL: No obvious deformities, swelling, cyanosis, or ecchymosis is present throughout the upper and lower extremities. NEUROLOGICAL: Awake, alert, and oriented. Normal speech and gait. Cranial nerves are grossly intact. PSYCH: Mood and affect appropriate. Procedures I&D. Medications and IVs Current Medications Medications (Trade) Dose Ordered Sig/Soren Route Start Time Stop Time Status Last Admin (Norvasc) 5 mg BID PO 05/14/16 21:00 05/22/16 22:09 (Ecotrin Ec) 81 mg DAILY PO 05/15/16 09:00 05/22/16 09:28 (Tenormin) 50 mg BID PO 05/14/16 21:00 05/22/16 22:08 (Lipitor) 80 mg HS PO 05/14/16 21:00 05/22/16 22:08 (Prinivil) 20 mg BID PO 05/14/16 21:00 05/22/16 22:08 (Rocaltrol) 0.5 mcg DAILY PO 05/15/16 09:00 05/22/16 09:00 (PROzac) 20 mg DAILY PO 05/15/16 09:00 05/22/16 09:28 (Neurontin) 100 mg BID PO 05/14/16 21:00 05/22/16 22:07 (Synthroid) 300 mcg DAILY@0600 PO 05/15/16 06:00 05/23/16 06:48 (Antivert) 25 mg TID PRN PO 05/14/16 14:15 (Renvela) 800 mg TID PO 05/14/16 18:00 05/22/16 18:17 (Zanaflex) 4 mg TID PRN PO 05/14/16 14:15 05/21/16 23:31 (NS Flush) 2 ml UNSCH PRN FLUSH 05/14/16 14:30 (NS Flush) 2 ml BID FLUSH 05/14/16 21:00 05/22/16 22:09 (Tylenol) 650 mg Q4H PRN PO 05/14/16 14:30 05/20/16 04:50 (Zofran Inj) 4 mg Q6H PRN IVP 05/14/16 14:30 (Reglan Inj) 5 mg Q6H PRN IV PUSH 05/14/16 14:30 (Dulcolax Supp) 10 mg DAILY PRN DC 05/14/16 14:30 (Colace) 100 mg Q12HR PO 05/14/16 21:00 05/22/16 22:09 (Heparin Inj) 5,000 units Q12H SQ 05/14/16 16:00 05/23/16 04:49 Naloxone HCl 0.4 mg 0.4 mg UNSCH PRN IV 05/14/16 14:30 (NS 1000 ml Inj) 1,000 ml @ 0 mls/hr Q0M PRN IV 05/14/16 14:54 05/18/16 13:26 Heparin Sodium (Porcine) 8000 units 8,000 units UNSCH PRN IVF 05/14/16 15:00 Sodium Chloride 1,000 ml @ 200 mls/hr Q5H PRN IV 05/14/16 14:54 05/23/16 10:57 (NS 1000 ml Inj) 1,000 ml @ 0 mls/hr Q0M PRN IV 05/14/16 14:54 (Mannitol Inj) 12.5 gm UNSCH PRN IV 05/14/16 15:00 (Albumin 25% Inj) 25 gm UNSCH PRN IV 05/14/16 15:00 (NS Flush) 5 ml UNSCH PRN IVF 05/14/16 15:00 (Heparin Inj) UNSCH PRN .XX 05/14/16 15:00 05/23/16 10:58 (Gentamicin (Dialysis) Inj) 20 mg UNSCH PRN IV 05/14/16 15:00 05/23/16 10:58 (Zofran Inj) 4 mg UNSCH PRN IV 05/14/16 15:00 (Tylenol) 650 mg UNSCH PRN PO 05/14/16 15:00 05/16/16 09:36 (Benadryl) 25 mg UNSCH PRN PO 05/14/16 15:00 (Nitrostat Sl) 0.4 mg UNSCH PRN SL 05/14/16 15:00 (Catapres) 0.1 mg UNSCH PRN PO 05/14/16 15:00 (Epogen Inj) 10,000 units UNSCH PRN IV 05/14/16 15:00 05/23/16 10:58 (Gelfoam 12 Mm/7 Mm Top) 1 foam UNSCH PRN TOP 05/14/16 15:00 (D50w (Vial) Inj) 25 ml UNSCH PRN IV PUSH 05/14/16 18:45 (Glucagon Inj) 1 mg UNSCH PRN OTHER 05/14/16 18:45 (Dakin'S 0.125% Soln) 120 ml DAILY OTHER 05/17/16 15:00 (Santyl Oint) 1 applic DAILY EXT 05/17/16 15:00 05/18/16 09:00 (Levemir Inj) 30 units Q12H SQ 05/18/16 18:00 05/22/16 18:17 Acetaminophen/ Hydrocodone Bitart 1 tab 1 tab Q4HR PRN PO 05/19/16 20:00 05/23/16 06:47 (Maxipime Inj/NS Inj) 100 ml @ 200 mls/hr DAILY IV 05/22/16 13:00 05/22/16 15:18 A/P Assessment and Plan Sepsis/Abdominal pannus/ Wound cellulitis and ulcer General surgery and plastic surgery following. Started on vancomycin and Zosyn. Cultures growing pseudomonas. ID following. - continue cefepime and follow up with ID. - wound care per surgery. - physical therapy. - incentive spirometry. Buttocks wound/ soft tissue wound on the right The pt has been complaining of pain in her buttocks and on the right side. - wound consult requested. - reconsult plastic surgery for further evaluation and treatment. - pain control with a bowel regimen. Morbid Obesity BMI 65.7. - strongly recommended diet and exercise. DM II A1c 6.8%. Glucose slightly well controlled 05/23. - change Levemir to 30 units daily, 20 units HS. - insulin sliding scale. ESRD On Hemodialysis //Fri. - dialysis per nephrology. Chronic low back pain and chronic pain syndrome Exacerbated by wounds. - pain control with a bowel regimen. DVT prophylaxis with Heparin every 12 hours. Discharge Planning Awaiting clinical improvement. Jacoby Sanchez DO May 23, 2016 11:58
[2016-05-23] MEDS: CEFEPIME INJ 2,000 MG in SODIUM CHLORIDE 0.9% INJ 100 ML IV SCH (12:30)
[2016-05-23] MEDS: amLODIPine BESYLATE 5 MG TAB PO SCH ×2 (12:31→20:33)
[2016-05-23] MEDS: SEVELAMER CARBONATE 800 MG TAB PO SCH ×3 (12:31→18:26)
[2016-05-23] MEDS: ASPIRIN EC 81 MG TABEC PO SCH (12:31)
[2016-05-23] MEDS: FLUoxetine HCL 20 MG CAP PO SCH (12:31)
[2016-05-23] MEDS: GABAPENTIN 100 MG CAP PO SCH ×2 (12:31→20:34)
[2016-05-23] MEDS: ATENOLOL 50 MG TAB PO SCH ×2 (12:31→20:34)
[2016-05-23] MEDS: DOCUSATE SODIUM 100 MG CAP PO SCH ×2 (12:32→20:33)
[2016-05-23] MEDS: LISINOPRIL 20 MG TAB PO SCH ×2 (12:32→20:33)
[2016-05-23] MEDS: ATORVASTATIN 80 MG TAB PO SCH (20:33)
[2016-05-24] VITALS (7 sets, daily range): BP systolic 124–166; BP diastolic 63–72; PULSE 62–69; RESP 18–20; TEMP 98.1–99.1; O2SAT 94–99
[2016-05-24] MEDS: ACETAMINOPHEN/HYDROcodone 325 MG/10 MG TAB PO PRN ×4 (00:39→21:59)
[2016-05-24] MEDS: HEPARIN SODIUM - SQ 10,000 UNITS/ML VIAL SQ SCH ×2 (03:57→16:00)
[2016-05-24] MEDS: LEVOTHYROXINE SODIUM 150 MCG TAB PO SCH (05:24)
[2016-05-24] MEDS: HIGH DOSE INSULIN NOVOLOG SUPPLEMENTAL SCALE SQ SCH ×4 (05:24→20:50)
[2016-05-24 07:34] LABS: HEMATOCRIT 26.1 % (35.0-46.0); MEAN CELL VOLUME 77.7 FL (80.0-100.0); MEAN CORPUSCULAR HEMOGLOBIN 24.7 PG (27.0-34.0); MEAN CORPUSCULAR HGB CONC 31.7 % (32.0-36.0); PLATELET COUNT 419 TH/MM3 (150-450); RED BLOOD COUNT 3.36 MIL/MM3 (4.00-5.30); WHITE BLOOD COUNT 12.7 TH/MM3 (4.0-11.0)
[2016-05-24 07:37] LABS: REVIEW FLAG FINAL
[2016-05-24 07:50] LABS: BICARBONATE 28.3 MEQ/L (21.0-32.0); MAGNESIUM 1.5 MG/DL (1.5-2.5); POTASSIUM 3.5 MEQ/L (3.5-5.1)
[2016-05-24] MEDS: DOCUSATE SODIUM 100 MG CAP PO SCH ×2 (08:29→20:49)
[2016-05-24] MEDS: CALCITRIOL 0.25 MCG CAP PO SCH (08:29)
[2016-05-24] MEDS: SEVELAMER CARBONATE 800 MG TAB PO SCH ×3 (08:29→17:43)
[2016-05-24] MEDS: LISINOPRIL 20 MG TAB PO SCH ×2 (08:30→20:49)
[2016-05-24] MEDS: GABAPENTIN 100 MG CAP PO SCH ×2 (08:30→20:48)
[2016-05-24] MEDS: INSULIN DETEMIR 100 UNITS/ML VIAL SQ SCH ×2 (08:30→20:50)
[2016-05-24] MEDS: ASPIRIN EC 81 MG TABEC PO SCH (08:30)
[2016-05-24] MEDS: amLODIPine BESYLATE 5 MG TAB PO SCH ×2 (08:30→20:48)
[2016-05-24] MEDS: ATENOLOL 50 MG TAB PO SCH ×2 (08:30→20:49)
[2016-05-24] MEDS: FLUoxetine HCL 20 MG CAP PO SCH (08:30)
[2016-05-24] MEDS: SODIUM CHLORIDE 0.9% FLUSH 5 ML FLUSH FLUSH SCH ×2 (09:00→20:47)
[2016-05-24] MEDS: COLLAGENASE OINT 30 GM TUBE EXT SCH (09:00)
[2016-05-24] MEDS: SODIUM HYPOCHLORITE 0.125% 500 ML BTL OTHER SCH (09:00)
[2016-05-24] MEDS: CEFEPIME INJ 2,000 MG in SODIUM CHLORIDE 0.9% INJ 100 ML IV SCH (09:00)
--- NOTE | 2016-05-24 11:18 | HHI.NPPN ---
Subjective History of Present Illness 55-year-old female known to me from before with past medical history of diabetes mellitus, history of morbid obesity, end-stage renal disease on hemodialysis three times per week, history of chronic anemia, congestive heart failure, spinal stenosis, chronic back pain, hypothyroidism who came to the hospital with complaint of worsening lower abdominal wound. I was called to see the patient for the management of dialysis. The patient has been on hemodialysis Friday, and Friday. Additional Remarks Patient is alert, sitting on chair, no SOB. Review of Systems General Constitutional: Fatigue Respiratory Lungs: SOB Cardiovascular Cardiac: GRIFFIN Objective Data Data 05/23/16 05/24/16 19:00 07:00 Intake Total 240 ml 960 ml Output Total 3000 ml Balance -2760 ml 960 ml Intake Oral 240 ml 960 ml Hemodialysis 3000 ml # Voids 4 2 # Bowel Movements 0 0 Vital Signs Date Time Temp Pulse Resp B/P Pulse Ox O2 Delivery O2 Flow Rate FiO2 05/24/16 08:00 98.7 66 20 166/70 98 05/24/16 03:47 99.1 63 18 151/69 94 05/23/16 23:40 98.4 63 18 140/71 95 05/23/16 20:00 Room Air 05/23/16 19:47 98.6 64 18 60/ 98 05/23/16 16:00 99.4 71 20 123/58 94 05/23/16 14:05 92 21 05/23/16 12:00 98.0 70 20 142/65 96 -: 05/24/16 0553 05/24/16 0553 Physical Exam General Appearance: No Acute Distress, Comfortable Eyes Eye Exam: Pupils Equal Throat Throat Exam: Oral Mucosa [place] & Moist Neck Neck Exam: Neck Supple Pulmonary Resp Exam: Breath Sounds Equal, Crackles, Decreased Bases, Diminished Breath Sounds Gastrointestinal/Abdomen GI Exam: Soft, Non-Tender, Distended Extremeties Extremities Exam: Moderate Edema, Pitting Edema, Dependent Edema Neurologic Neuro Exam: Alert, Awake, Oriented Psychiatric Psych Exam: Appropriate Responses Assessment/Plan Assessment Summary: Anemia of CKD, Hypertension, End Stage Renal Disease Problem List: (1) Anemia in chronic kidney disease (CKD) (2) Open wound of abdomen (3) Chronic stasis dermatitis (4) End stage kidney disease Plan Patient has HD done yesterday and 3 liters removed. Now on Cefepime. Continue the wound care. ID is following. BP occ. elevated. Has some more wounds on side of pelvis, possibly due to friction o the wheelchair. Need to rule out calciphylaxis, Po4 was normal, check PTH also. HD will be in AM. Follow up by plastic surgery. Patient was just seen by wound care. Problem Qualifiers (1) Open wound of abdomen: Qualified Code: S31.109A - Open wound of abdomen, initial encounter Valentin Jimenez MD May 24, 2016 11:18
--- NOTE | 2016-05-24 11:19 | HHI.PR ---
Subjective Remarks The patient was sitting up in a chair. She said she was evaluated by the wound care nurse earlier today. She says her pain is controlled well at this time. She has had a bowel movement this morning. Family at the bedside. No acute complaints at this time. Discussed with nursing. Objective Vitals Vital Signs Date Time Temp Pulse Resp B/P Pulse Ox O2 Delivery O2 Flow Rate FiO2 05/24/16 08:00 98.7 66 20 166/70 98 05/24/16 03:47 99.1 63 18 151/69 94 05/23/16 23:40 98.4 63 18 140/71 95 05/23/16 20:00 Room Air 05/23/16 19:47 98.6 64 18 60/ 98 05/23/16 16:00 99.4 71 20 123/58 94 05/23/16 14:05 92 21 05/23/16 12:00 98.0 70 20 142/65 96 I/O 05/23/16 05/23/16 05/23/16 05/24/16 05/24/16 05/24/16 07:00 15:00 23:00 07:00 15:00 23:00 Intake Total 480 ml 240 ml 480 ml 480 ml Output Total 3000 ml Balance 480 ml -2760 ml 480 ml 480 ml Intake Oral 480 ml 240 ml 480 ml 480 ml Hemodialysis 3000 ml # Voids 1 4 1 1 # Bowel Movements 0 0 0 Result Diagram: 05/24/16 0553 05/24/16 0553 Objective Remarks GENERAL: Morbidly obese female patient in no acute distress. SKIN: Warm and dry. Wound in gluteal cleft and the right hip/ buttocks area. HEAD: Normocephalic and atraumatic. EYES: No injection, drainage, or hyphema noted. PERRLA. EOMI. ENT: No nasal drainage noted. Oropharynx is clear. NECK: Supple and the trachea is midline. CARDIOVASCULAR: Regular rate and rhythm. RESPIRATORY: Breath sounds are equal bilaterally with no accessory muscle use, wheezing, rhonchi, or crackles. GASTROINTESTINAL: Abdomen is soft, non-tender, and nondistended. dressed surgical wound. Tender to palpation. MUSCULOSKELETAL: No obvious deformities, swelling, cyanosis, or ecchymosis is present throughout the upper and lower extremities. NEUROLOGICAL: Awake, alert, and oriented. Normal speech and gait. Cranial nerves are grossly intact. PSYCH: Mood and affect appropriate. Procedures I&D. Medications and IVs Current Medications Medications (Trade) Dose Ordered Sig/Soren Route Start Time Stop Time Status Last Admin (Norvasc) 5 mg BID PO 05/14/16 21:00 05/24/16 08:30 (Ecotrin Ec) 81 mg DAILY PO 05/15/16 09:00 05/24/16 08:30 (Tenormin) 50 mg BID PO 05/14/16 21:00 05/24/16 08:30 (Lipitor) 80 mg HS PO 05/14/16 21:00 05/23/16 20:33 (Prinivil) 20 mg BID PO 05/14/16 21:00 05/24/16 08:30 (Rocaltrol) 0.5 mcg DAILY PO 05/15/16 09:00 05/24/16 08:29 (PROzac) 20 mg DAILY PO 05/15/16 09:00 05/24/16 08:30 (Neurontin) 100 mg BID PO 05/14/16 21:00 05/24/16 08:30 (Synthroid) 300 mcg DAILY@0600 PO 05/15/16 06:00 05/24/16 05:24 (Antivert) 25 mg TID PRN PO 05/14/16 14:15 (Renvela) 800 mg TID PO 05/14/16 18:00 05/24/16 08:29 (Zanaflex) 4 mg TID PRN PO 05/14/16 14:15 05/21/16 23:31 (NS Flush) 2 ml UNSCH PRN FLUSH 05/14/16 14:30 (NS Flush) 2 ml BID FLUSH 05/14/16 21:00 05/23/16 20:34 (Tylenol) 650 mg Q4H PRN PO 05/14/16 14:30 05/20/16 04:50 (Zofran Inj) 4 mg Q6H PRN IVP 05/14/16 14:30 (Reglan Inj) 5 mg Q6H PRN IV PUSH 05/14/16 14:30 (Dulcolax Supp) 10 mg DAILY PRN NV 05/14/16 14:30 (Colace) 100 mg Q12HR PO 05/14/16 21:00 05/24/16 08:29 (Heparin Inj) 5,000 units Q12H SQ 05/14/16 16:00 05/24/16 03:57 Naloxone HCl 0.4 mg 0.4 mg UNSCH PRN IV 05/14/16 14:30 (NS 1000 ml Inj) 1,000 ml @ 0 mls/hr Q0M PRN IV 05/14/16 14:54 05/18/16 13:26 Heparin Sodium (Porcine) 8000 units 8,000 units UNSCH PRN IVF 05/14/16 15:00 Sodium Chloride 1,000 ml @ 200 mls/hr Q5H PRN IV 05/14/16 14:54 05/23/16 10:57 (NS 1000 ml Inj) 1,000 ml @ 0 mls/hr Q0M PRN IV 05/14/16 14:54 (Mannitol Inj) 12.5 gm UNSCH PRN IV 05/14/16 15:00 (Albumin 25% Inj) 25 gm UNSCH PRN IV 05/14/16 15:00 (NS Flush) 5 ml UNSCH PRN IVF 05/14/16 15:00 (Heparin Inj) UNSCH PRN .XX 05/14/16 15:00 05/23/16 10:58 (Gentamicin (Dialysis) Inj) 20 mg UNSCH PRN IV 05/14/16 15:00 05/23/16 10:58 (Zofran Inj) 4 mg UNSCH PRN IV 05/14/16 15:00 (Tylenol) 650 mg UNSCH PRN PO 05/14/16 15:00 05/16/16 09:36 (Benadryl) 25 mg UNSCH PRN PO 05/14/16 15:00 (Nitrostat Sl) 0.4 mg UNSCH PRN SL 05/14/16 15:00 (Catapres) 0.1 mg UNSCH PRN PO 05/14/16 15:00 (Epogen Inj) 10,000 units UNSCH PRN IV 05/14/16 15:00 05/23/16 10:58 (Gelfoam 12 Mm/7 Mm Top) 1 foam UNSCH PRN TOP 05/14/16 15:00 (D50w (Vial) Inj) 25 ml UNSCH PRN IV PUSH 05/14/16 18:45 (Glucagon Inj) 1 mg UNSCH PRN OTHER 05/14/16 18:45 (Dakin'S 0.125% Soln) 120 ml DAILY OTHER 05/17/16 15:00 (Santyl Oint) 1 applic DAILY EXT 05/17/16 15:00 05/18/16 09:00 Acetaminophen/ Hydrocodone Bitart 1 tab 1 tab Q4HR PRN PO 05/19/16 20:00 05/24/16 05:25 (Maxipime Inj/NS Inj) 100 ml @ 200 mls/hr DAILY IV 05/22/16 13:00 05/24/16 09:00 ([place] 5-325 Mg) 1 tab Q4H PRN PO 05/23/16 12:00 (Levemir Inj) 30 units DAILY SQ 05/24/16 09:00 05/24/16 08:30 (Levemir Inj) 20 units HS SQ 05/23/16 21:00 05/23/16 20:33 A/P Assessment and Plan Sepsis/Abdominal pannus/ Wound cellulitis and ulcer General surgery and plastic surgery following. Started on vancomycin and Zosyn. Cultures growing pseudomonas. ID following. - continue cefepime and follow up with ID. - wound care per surgery. - physical therapy. - incentive spirometry. Buttocks wound/ soft tissue wound on the right pannus The pt has been complaining of pain in her buttocks and on the right side of her pannus. Wound care consult appreciated. - dressings per wound care nurse. - reconsult plastic surgery for further evaluation and treatment. - pain control with a bowel regimen. Morbid Obesity BMI 65. The pt says she had a lap band in the past. - the pt agrees with lifestyle modifications. DM II A1c 6.8%. Glucose well controlled 05/24. - changed Levemir to 30 units daily, 20 units HS. Adjust as needed. - insulin sliding scale. ESRD On Hemodialysis //Fri. - dialysis per nephrology. Chronic low back pain and chronic pain syndrome Exacerbated by wounds. - pain control with a bowel regimen. DVT prophylaxis with Heparin every 12 hours. Discharge Planning Awaiting clinical improvement. Jacoby Sanchez DO May 24, 2016 11:19
[2016-05-24] MEDS: ACETAMINOPHEN/HYDROcodone 325 MG/5 MG TAB PO PRN (11:28)
--- NOTE | 2016-05-24 12:09 | HHI.IDPN ---
Subjective Subjective Remarks Notes reviewed No fever D/W Dr Sanchez Plastic surgery has been reconsulted for evaluation of new necrotic wounds Had excisional debridement of large ulcer 05/17 C/S with PSAE Also now with sore in coccyx and pannus R lateral abdomen Had HD yesterday Antibiotics Cefepime Lines PIV Past Medical History Reviewed Allergies: Coded Allergies: Biaxin (Verified Allergy, Severe, swelling of face, 05/10/16) Iron (Verified Adverse Reaction, Severe, Constipation, 05/10/16) Objective . Vital Signs Date Time Temp Pulse Resp B/P Pulse Ox O2 Delivery O2 Flow Rate FiO2 05/24/16 08:00 98.7 66 20 166/70 98 05/24/16 03:47 99.1 63 18 151/69 94 05/23/16 23:40 98.4 63 18 140/71 95 05/23/16 20:00 Room Air 05/23/16 19:47 98.6 64 18 60/ 98 05/23/16 16:00 99.4 71 20 123/58 94 05/23/16 14:05 92 21 05/23/16 05/23/16 05/24/16 15:00 23:00 07:00 Intake Total 240 ml 480 ml 480 ml Output Total 3000 ml Balance -2760 ml 480 ml 480 ml Intake Oral 240 ml 480 ml 480 ml Hemodialysis 3000 ml # Voids 4 1 1 # Bowel Movements 0 0 0 . Laboratory Tests Test 05/23/16 05/24/16 07:12 05:53 White Blood Count 14.5 TH/MM3 12.7 TH/MM3 Red Blood Count 3.79 MIL/MM3 3.36 MIL/MM3 Hemoglobin 9.2 GM/DL 8.3 GM/DL Hematocrit 29.7 % 26.1 % Mean Corpuscular Volume 78.4 FL 77.7 FL Mean Corpuscular Hemoglobin 24.2 PG 24.7 PG Mean Corpuscular Hemoglobin 30.9 % 31.7 % Concent Red Cell Distribution Width 20.9 % 21.0 % Platelet Count 450 TH/MM3 419 TH/MM3 Mean Platelet Volume 7.2 FL 7.4 FL Laboratory Tests Test 05/23/16 05/24/16 07:12 05:53 Sodium Level 137 MEQ/L 135 MEQ/L Potassium Level 3.9 MEQ/L 3.5 MEQ/L Chloride Level 94 MEQ/L 94 MEQ/L Carbon Dioxide Level 29.2 MEQ/L 28.3 MEQ/L Anion Gap 14 MEQ/L 13 MEQ/L Blood Urea Nitrogen 48 MG/DL 37 MG/DL Creatinine 4.35 MG/DL 3.54 MG/DL Estimat Glomerular Filtration 11 ML/MIN 13 ML/MIN Rate Random Glucose 77 MG/DL 163 MG/DL Calcium Level 7.6 MG/DL 7.7 MG/DL Magnesium Level 1.5 MG/DL 1.5 MG/DL Physical Exam GENERAL: awake and alert, NAD SKIN: Cool and dry. No generalized rash. HEENT: [place] conjunctivae. No scleral icterus. No injection or drainage. Moist oral mucosa. NECK: Supple, nontender, no meningeal signs. CARDIOVASCULAR: Regular rate and rhythm. Soft heart sounds. RESPIRATORY: Clear to auscultation. Breath sounds equal bilaterally. Decreased BS at bases GASTROINTESTINAL: Abdomen is obese, has large pannus, and there is a large open wound with packing. Cellulitis better. There is a black eschar R lateral pannus. No guarding, no rebound. (+) BS normoactive. MUSCULOSKELETAL: BLE has leather texture brown color of her whole leg and feet. Warm, no cyanosis. No calf tenderness. NEUROLOGICAL: Awake and alert. Cranial nerves II through XII intact. Motor and sensory grossly within normal limits. Normal speech. PSYCH: Normal affect, calm and cooperative Assessment & Plan Remarks IMPRESSION Large open necrotic, infected wound, abdominal pannus R, with surrounding cellulitis - improving cellulitis - S/P debridement Leukocytosis due to the infected wound, better ESRD on HD Morbid obesity Anemia RECOMMENDATION Wound care Continue cefepime When ready for D/C will switch to Fortaz to be given with HD, and give 6 more doses Monitor progress Surgery to reevaluate more wounds D/W Dr Daniel Zavala,Shea Alejandro MD May 24, 2016 12:09
[2016-05-24] MEDS ORDERED: SILVER NITR/POTASSIUM NITRATE APPLICATORS TOPICAL ONE (13:15)
[2016-05-24] MEDS ORDERED: EPINEPHRINE OTHER ONE (18:30)
[2016-05-24] MEDS ORDERED: SODIUM BICARBONATE 8.4% INJ 50 MEQ/50 ML SYR IV PUSH ONE (18:30)
[2016-05-24] MEDS ORDERED: LIDOCAINE OTHER ONE (18:30)
--- NOTE | 2016-05-24 18:59 | PD.OP ---
Operative Report New necrotic area Right side of the abdomen Postoperative Diagnosis: New necrotic area Right side of the abdomen 10 x 5 cm Procedure: Excisional debridement of New necrotic area Right side of the abdomen 10x5 cm Anesthesia: Lidocaine 2% with Epi and Sodium bicarbonate Surgeon: Bob Johnson Mdm Sr(s): none Resident Surgeon: none Operation and Findings: Right lateral abdomen - on the pannus, area anesthetized, prepped and draped, excised with 15 blade down to fat. Bleeding minimal No sutures Dressed with 4x4 gauze Bob Johnson MD May 24, 2016 18:59
--- NOTE | 2016-05-24 19:02 | PD.PLAS.PN ---
Subjective Remarks Right abdominal pannus anterior large wound dressing checked Has a thick layer of necrotic fat in the wound and some skin edge necrosis as well Will need debridement in operating room again. Will schedule. New necrotic patch of skin is on the lateral aspect somewhat above the level of the previous wound, likely to be a point of contact against sides of a wheel chair or other chair. Patient is extremely obese and may not fit even the wider chairs available on the floor. Area excision done under local anesthesia - see operative note. Vital Signs Date Time Temp Pulse Resp B/P Pulse Ox O2 Delivery O2 Flow Rate FiO2 05/24/16 16:00 98.1 69 18 124/72 98 05/24/16 12:00 98.1 62 20 166/70 96 05/24/16 08:00 98.7 66 20 166/70 98 05/24/16 03:47 99.1 63 18 151/69 94 05/23/16 23:40 98.4 63 18 140/71 95 05/23/16 20:00 Room Air 05/23/16 19:47 98.6 64 18 60/ 98 I/O 05/23/16 05/23/16 05/23/16 05/24/16 05/24/16 05/24/16 07:00 15:00 23:00 07:00 15:00 23:00 Intake Total 480 ml 240 ml 480 ml 480 ml 360 ml Output Total 3000 ml Balance 480 ml -2760 ml 480 ml 480 ml 360 ml Intake Oral 480 ml 240 ml 480 ml 480 ml 360 ml Hemodialysis 3000 ml # Voids 1 4 1 1 3 # Bowel Movements 0 0 0 2 Laboratory Tests Test 05/24/16 05:53 White Blood Count 12.7 Red Blood Count 3.36 Hemoglobin 8.3 Hematocrit 26.1 Mean Corpuscular Volume 77.7 Mean Corpuscular Hemoglobin 24.7 Mean Corpuscular Hemoglobin 31.7 Concent Red Cell Distribution Width 21.0 Platelet Count 419 Mean Platelet Volume 7.4 Sodium Level 135 Potassium Level 3.5 Chloride Level 94 Carbon Dioxide Level 28.3 Anion Gap 13 Blood Urea Nitrogen 37 Creatinine 3.54 Estimat Glomerular Filtration 13 Rate Random Glucose 163 Calcium Level 7.7 Magnesium Level 1.5 Result Diagram: 05/24/16 0553 05/24/16 0553 Bob Johnson MD May 24, 2016 19:02
[2016-05-24] MEDS: ATORVASTATIN 80 MG TAB PO SCH (20:48)
[2016-05-25 03:25] VITALS: BP 151/65; PULSE 64; RESP 18; TEMP 98.5; O2SAT 94
[2016-05-25] MEDS: HEPARIN SODIUM - SQ 10,000 UNITS/ML VIAL SQ SCH ×2 (03:29→16:31)
[2016-05-25] MEDS: ACETAMINOPHEN/HYDROcodone 325 MG/10 MG TAB PO PRN ×5 (05:02→21:25)
[2016-05-25] MEDS: LEVOTHYROXINE SODIUM 150 MCG TAB PO SCH (05:02)
[2016-05-25] MEDS: HIGH DOSE INSULIN NOVOLOG SUPPLEMENTAL SCALE SQ SCH ×4 (05:03→21:28)
[2016-05-25 08:00] VITALS: BP 142/63; PULSE 59; RESP 18; TEMP 97.9; O2SAT 100
[2016-05-25] MEDS: COLLAGENASE OINT 30 GM TUBE EXT SCH (08:24)
[2016-05-25] MEDS: SODIUM CHLORIDE 0.9% FLUSH 5 ML FLUSH FLUSH SCH ×2 (08:24→21:29)
[2016-05-25] MEDS: SODIUM HYPOCHLORITE 0.125% 500 ML BTL OTHER SCH (08:25)
[2016-05-25] MEDS: SEVELAMER CARBONATE 800 MG TAB PO SCH ×3 (09:00→16:32)
[2016-05-25] MEDS: INSULIN DETEMIR 100 UNITS/ML VIAL SQ SCH ×2 (09:00→21:26)
--- NOTE | 2016-05-25 09:25 | HHI.NPPN ---
Subjective History of Present Illness 55-year-old female known to me from before with past medical history of diabetes mellitus, history of morbid obesity, end-stage renal disease on hemodialysis three times per week, history of chronic anemia, congestive heart failure, spinal stenosis, chronic back pain, hypothyroidism who came to the hospital with complaint of worsening lower abdominal wound. I was called to see the patient for the management of dialysis. The patient has been on hemodialysis Friday, and Friday. Additional Remarks Patient is alert, now on HD, has pain in Rt. buttock area, no SOB. Review of Systems General Constitutional: Fatigue Respiratory Lungs: SOB Cardiovascular Cardiac: GRIFFIN Objective Data Data 05/24/16 05/25/16 19:00 07:00 Intake Total 360 ml 1022 ml Output Total 0 ml Balance 360 ml 1022 ml Intake Oral 360 ml 1020 ml IV Total 2 ml Stool Total 0 ml # Voids 3 4 # Bowel Movements 2 3 Vital Signs Date Time Temp Pulse Resp B/P Pulse Ox O2 Delivery O2 Flow Rate FiO2 05/25/16 03:25 98.5 64 18 151/65 94 05/25/16 02:33 Room Air 05/24/16 23:10 98.8 66 18 163/69 94 05/24/16 19:37 63 05/24/16 19:27 98.1 62 18 135/63 99 05/24/16 16:00 98.1 69 18 124/72 98 05/24/16 12:00 98.1 62 20 166/70 96 -: 05/24/16 0553 05/24/16 0553 Physical Exam General Appearance: No Acute Distress, Comfortable Eyes Eye Exam: Pupils Equal Throat Throat Exam: Oral Mucosa [place] & Moist Neck Neck Exam: Neck Supple Pulmonary Resp Exam: Breath Sounds Equal, Crackles, Decreased Bases, Diminished Breath Sounds Gastrointestinal/Abdomen GI Exam: Soft, Non-Tender, Distended Extremeties Extremities Exam: Moderate Edema, Pitting Edema, Dependent Edema Neurologic Neuro Exam: Alert, Awake, Oriented Psychiatric Psych Exam: Appropriate Responses Assessment/Plan Assessment Summary: Anemia of CKD, Hypertension, End Stage Renal Disease Problem List: (1) Anemia in chronic kidney disease (CKD) (2) Open wound of abdomen (3) Chronic stasis dermatitis (4) End stage kidney disease Plan Now on Cefepime. Continue the wound care. ID is following. BP is better now. Has some more wounds on side of pelvis, possibly due to friction of the wheelchair. Need to rule out calciphylaxis, Po4 was normal, check PTH also. Seen by plastic surgery and had debridement of Rt. buttock area. HD now, remove fluid as tolerated. Problem Qualifiers (1) Open wound of abdomen: Qualified Code: S31.109A - Open wound of abdomen, initial encounter Valentin Jimenez MD May 25, 2016 09:24
[2016-05-25] MEDS ORDERED: ACETAMINOPHEN/HYDROcodone 325 MG/10 MG TAB PO ONE (10:30)
--- NOTE | 2016-05-25 10:31 | HHI.PR ---
Subjective Remarks The patient was seen at dialysis. She said she had some soreness on her right side from where she had debridement last night. She says slight movements make her pain a lot worse. She said she was trying to make sure she doesn't get any further infections on her left side. Discussed with dialysis nurse. Objective Vitals Vital Signs Date Time Temp Pulse Resp B/P Pulse Ox O2 Delivery O2 Flow Rate FiO2 05/25/16 03:25 98.5 64 18 151/65 94 05/25/16 02:33 Room Air 05/24/16 23:10 98.8 66 18 163/69 94 05/24/16 19:37 63 05/24/16 19:27 98.1 62 18 135/63 99 05/24/16 16:00 98.1 69 18 124/72 98 05/24/16 12:00 98.1 62 20 166/70 96 I/O 05/24/16 05/24/16 05/24/16 05/25/16 05/25/16 05/25/16 07:00 15:00 23:00 07:00 15:00 23:00 Intake Total 480 ml 360 ml 962 ml 60 ml Output Total 0 ml Balance 480 ml 360 ml 962 ml 60 ml Intake Oral 480 ml 360 ml 960 ml 60 ml IV Total 2 ml Stool Total 0 ml # Voids 1 3 3 1 # Bowel Movements 0 2 3 0 Result Diagram: 05/24/16 0553 05/24/16 0553 Objective Remarks GENERAL: Morbidly obese female patient in no acute distress. SKIN: Warm and dry. Wound in gluteal cleft and the right hip/ buttocks area. HEAD: Normocephalic and atraumatic. EYES: No injection, drainage, or hyphema noted. PERRLA. EOMI. ENT: No nasal drainage noted. Oropharynx is clear. NECK: Supple and the trachea is midline. CARDIOVASCULAR: Regular rate and rhythm. RESPIRATORY: Breath sounds are equal bilaterally with no accessory muscle use, wheezing, rhonchi, or crackles. GASTROINTESTINAL: Abdomen is soft, non-tender, and nondistended. Dressed surgical wound. Tender to palpation. MUSCULOSKELETAL: No obvious deformities, swelling, cyanosis, or ecchymosis is present throughout the upper and lower extremities. NEUROLOGICAL: Awake, alert, and oriented. Normal speech and gait. Cranial nerves are grossly intact. PSYCH: Mood and affect appropriate. Procedures I&D. Medications and IVs Current Medications Medications (Trade) Dose Ordered Sig/Soren Route Start Time Stop Time Status Last Admin (Norvasc) 5 mg BID PO 05/14/16 21:00 05/24/16 20:48 (Ecotrin Ec) 81 mg DAILY PO 05/15/16 09:00 05/24/16 08:30 (Tenormin) 50 mg BID PO 05/14/16 21:00 05/24/16 20:49 (Lipitor) 80 mg HS PO 05/14/16 21:00 05/24/16 20:48 (Prinivil) 20 mg BID PO 05/14/16 21:00 05/24/16 20:49 (Rocaltrol) 0.5 mcg DAILY PO 05/15/16 09:00 05/24/16 08:29 (PROzac) 20 mg DAILY PO 05/15/16 09:00 05/24/16 08:30 (Neurontin) 100 mg BID PO 05/14/16 21:00 05/24/16 20:48 (Synthroid) 300 mcg DAILY@0600 PO 05/15/16 06:00 05/25/16 05:02 (Antivert) 25 mg TID PRN PO 05/14/16 14:15 (Renvela) 800 mg TID PO 05/14/16 18:00 05/24/16 17:43 (Zanaflex) 4 mg TID PRN PO 05/14/16 14:15 05/21/16 23:31 (NS Flush) 2 ml UNSCH PRN FLUSH 05/14/16 14:30 (NS Flush) 2 ml BID FLUSH 05/14/16 21:00 05/25/16 08:24 (Tylenol) 650 mg Q4H PRN PO 05/14/16 14:30 05/20/16 04:50 (Zofran Inj) 4 mg Q6H PRN IVP 05/14/16 14:30 (Reglan Inj) 5 mg Q6H PRN IV PUSH 05/14/16 14:30 (Dulcolax Supp) 10 mg DAILY PRN ND 05/14/16 14:30 (Colace) 100 mg Q12HR PO 05/14/16 21:00 05/24/16 08:29 (Heparin Inj) 5,000 units Q12H SQ 05/14/16 16:00 05/25/16 03:29 Naloxone HCl 0.4 mg 0.4 mg UNSCH PRN IV 05/14/16 14:30 (NS 1000 ml Inj) 1,000 ml @ 0 mls/hr Q0M PRN IV 05/14/16 14:54 05/18/16 13:26 Heparin Sodium (Porcine) 8000 units 8,000 units UNSCH PRN IVF 05/14/16 15:00 Sodium Chloride 1,000 ml @ 200 mls/hr Q5H PRN IV 05/14/16 14:54 05/23/16 10:57 (NS 1000 ml Inj) 1,000 ml @ 0 mls/hr Q0M PRN IV 05/14/16 14:54 (Mannitol Inj) 12.5 gm UNSCH PRN IV 05/14/16 15:00 (Albumin 25% Inj) 25 gm UNSCH PRN IV 05/14/16 15:00 (NS Flush) 5 ml UNSCH PRN IVF 05/14/16 15:00 (Heparin Inj) UNSCH PRN .XX 05/14/16 15:00 05/23/16 10:58 (Gentamicin (Dialysis) Inj) 20 mg UNSCH PRN IV 05/14/16 15:00 05/23/16 10:58 (Zofran Inj) 4 mg UNSCH PRN IV 05/14/16 15:00 (Tylenol) 650 mg UNSCH PRN PO 05/14/16 15:00 05/16/16 09:36 (Benadryl) 25 mg UNSCH PRN PO 05/14/16 15:00 (Nitrostat Sl) 0.4 mg UNSCH PRN SL 05/14/16 15:00 (Catapres) 0.1 mg UNSCH PRN PO 05/14/16 15:00 (Epogen Inj) 10,000 units UNSCH PRN IV 05/14/16 15:00 05/23/16 10:58 (Gelfoam 12 Mm/7 Mm Top) 1 foam UNSCH PRN TOP 05/14/16 15:00 (D50w (Vial) Inj) 25 ml UNSCH PRN IV PUSH 05/14/16 18:45 (Glucagon Inj) 1 mg UNSCH PRN OTHER 05/14/16 18:45 (Dakin'S 0.125% Soln) 120 ml DAILY OTHER 05/17/16 15:00 (Santyl Oint) 1 applic DAILY EXT 05/17/16 15:00 05/18/16 09:00 Acetaminophen/ Hydrocodone Bitart 1 tab 1 tab Q4HR PRN PO 05/19/16 20:00 05/25/16 08:23 (Maxipime Inj/NS Inj) 100 ml @ 200 mls/hr DAILY IV 05/22/16 13:00 05/24/16 09:00 ([place] 5-325 Mg) 1 tab Q4H PRN PO 05/23/16 12:00 05/24/16 11:28 (Levemir Inj) 30 units DAILY SQ 05/24/16 09:00 05/24/16 08:30 (Levemir Inj) 20 units HS SQ 05/23/16 21:00 05/24/16 20:50 A/P Assessment and Plan Sepsis/Abdominal pannus/ Wound cellulitis and ulcer General surgery and plastic surgery following. Started on vancomycin and Zosyn. Cultures growing pseudomonas. ID following. - continue cefepime and follow up with ID. - wound care per surgery. Further debridement tentatively scheduled in the next couple of days. - physical therapy. Add occupational therapy. - incentive spirometry. Buttocks wound/ soft tissue wound on the right pannus The pt has been complaining of pain in her buttocks and on the right side of her pannus. Wound care consult appreciated. Status post debridement by plastic surgery. - dressings per plastic surgery. - pain control with a bowel regimen. Morbid Obesity BMI 65. The pt says she had a lap band in the past. - the pt agrees with lifestyle modifications. DM II A1c 6.8%. Glucose well controlled 05/25. - changed Levemir to 30 units daily, 20 units HS. Adjust as needed. - insulin sliding scale. ESRD On Hemodialysis //Fri. - dialysis per nephrology. Chronic low back pain and chronic pain syndrome Exacerbated by wounds. - pain control with a bowel regimen. DVT prophylaxis with Heparin every 12 hours. Discharge Planning Awaiting clinical improvement. Jacoby Sanchez DO May 25, 2016 10:31
[2016-05-25] MEDS: EPOETIN ALFA 10,000 UNITS/ML VIAL IV PRN (11:23)
[2016-05-25] MEDS: GENTAMICIN SULFATE (DIALYSIS USE ONLY) 20 MG/2 ML VIAL IV PRN (11:24)
[2016-05-25] MEDS: HEPARIN SODIUM - IV 10,000 UNITS/10 ML VIAL PRN (11:24)
[2016-05-25 12:00] VITALS: BP 141/75; PULSE 69; RESP 18; TEMP 98.7; O2SAT 98
[2016-05-25] MEDS: CALCITRIOL 0.25 MCG CAP PO SCH (12:36)
[2016-05-25] MEDS: LISINOPRIL 20 MG TAB PO SCH ×2 (12:36→21:24)
[2016-05-25] MEDS: GABAPENTIN 100 MG CAP PO SCH ×2 (12:36→21:24)
[2016-05-25] MEDS: FLUoxetine HCL 20 MG CAP PO SCH (12:36)
[2016-05-25] MEDS: ATENOLOL 50 MG TAB PO SCH ×2 (12:37→21:24)
[2016-05-25] MEDS: DOCUSATE SODIUM 100 MG CAP PO SCH ×2 (12:37→21:26)
[2016-05-25] MEDS: ASPIRIN EC 81 MG TABEC PO SCH (12:37)
[2016-05-25] MEDS: amLODIPine BESYLATE 5 MG TAB PO SCH ×2 (12:37→21:24)
[2016-05-25] MEDS: CEFEPIME INJ 2,000 MG in SODIUM CHLORIDE 0.9% INJ 100 ML IV SCH (13:51)
[2016-05-25 15:40] LABS: HEMATOCRIT 29.8 % (35.0-46.0); MEAN CELL VOLUME 78.9 FL (80.0-100.0); MEAN CORPUSCULAR HEMOGLOBIN 25.6 PG (27.0-34.0); MEAN CORPUSCULAR HGB CONC 32.4 % (32.0-36.0); PLATELET COUNT 565 TH/MM3 (150-450); RED BLOOD COUNT 3.78 MIL/MM3 (4.00-5.30); RED CELL DISTRIBUTION WIDTH 20.8 % (11.6-17.2); REVIEW FLAG FINAL; WHITE BLOOD COUNT 17.3 TH/MM3 (4.0-11.0)
[2016-05-25 15:57] LABS: BICARBONATE 26.2 MEQ/L (21.0-32.0)
[2016-05-25 16:00] VITALS: BP 121/57; PULSE 57; RESP 18; TEMP 98.1; O2SAT 100
[2016-05-25 20:00] VITALS: BP 125/59; PULSE 74; RESP 18; TEMP 97.5; O2SAT 96
[2016-05-25] MEDS: ATORVASTATIN 80 MG TAB PO SCH (21:26)
[2016-05-26] VITALS (9 sets, daily range): BP systolic 109–145; BP diastolic 54–65; PULSE 54–72; RESP 18–20; TEMP 97.5–98.9; O2SAT 94–98
[2016-05-26] MEDS: HEPARIN SODIUM - SQ 10,000 UNITS/ML VIAL SQ SCH ×2 (04:02→17:17)
[2016-05-26] MEDS: LEVOTHYROXINE SODIUM 150 MCG TAB PO SCH (05:24)
[2016-05-26] MEDS: HIGH DOSE INSULIN NOVOLOG SUPPLEMENTAL SCALE SQ SCH ×4 (06:17→21:09)
[2016-05-26] MEDS ORDERED: MIDAZOLAM HCL 2 MG/2 ML VIAL ONE (07:31)
[2016-05-26] MEDS ORDERED: fentaNYL CITRATE 250 MCG/5 ML AMP ONE (07:31)
[2016-05-26] MEDS ORDERED: ACETAMINOPHEN 1000 MG/100 ML VIAL IV ONE (07:44)
[2016-05-26] MEDS ORDERED: LIDOCAINE 1%/EPINEPHrine 1:100,000 SOLN 30 ML VIAL INFIL ONE (08:14)
[2016-05-26] MEDS: SODIUM CHLORIDE 0.9% FLUSH 5 ML FLUSH FLUSH SCH ×2 (09:00→21:15)
[2016-05-26] MEDS: SODIUM HYPOCHLORITE 0.125% 500 ML BTL OTHER SCH (09:00)
[2016-05-26] MEDS: COLLAGENASE OINT 30 GM TUBE EXT SCH (09:00)
[2016-05-26] MEDS: DOCUSATE SODIUM 100 MG CAP PO SCH (09:00)
[2016-05-26] MEDS: CEFEPIME INJ 2,000 MG in SODIUM CHLORIDE 0.9% INJ 100 ML IV SCH (09:00)
[2016-05-26] MEDS: FLUoxetine HCL 20 MG CAP PO SCH (09:00)
[2016-05-26] MEDS: ASPIRIN EC 81 MG TABEC PO SCH (09:00)
[2016-05-26] MEDS: INSULIN DETEMIR 100 UNITS/ML VIAL SQ SCH ×2 (09:00→21:08)
[2016-05-26] MEDS: CALCITRIOL 0.25 MCG CAP PO SCH (09:00)
[2016-05-26] MEDS: SEVELAMER CARBONATE 800 MG TAB PO SCH ×3 (09:00→17:16)
[2016-05-26] MEDS: LISINOPRIL 20 MG TAB PO SCH ×2 (09:00→21:15)
[2016-05-26] MEDS: amLODIPine BESYLATE 5 MG TAB PO SCH ×2 (09:00→21:07)
[2016-05-26] MEDS: GABAPENTIN 100 MG CAP PO SCH ×2 (09:00→21:07)
[2016-05-26] MEDS: ATENOLOL 50 MG TAB PO SCH ×2 (09:00→21:07)
[2016-05-26] MEDS ORDERED: *morphine SULFATE 8 MG/ML PERIprocedure ONLY ONE (09:11)
[2016-05-26] MEDS: ACETAMINOPHEN/HYDROcodone 325 MG/10 MG TAB PO PRN ×4 (09:25→21:09)
[2016-05-26] MEDS ORDERED: DO NOT ADM ANY ANTICOAGULANT DRUGS XX PRN (09:30)
[2016-05-26] MEDS ORDERED: NEOSTIGMINE 3 MG/3 ML SYR IV ONE (12:00)
[2016-05-26] MEDS ORDERED: ePHEDrine/NS 25 MG/5 ML SYR IV ONE (12:00)
[2016-05-26] MEDS ORDERED: LACTATED RINGER'S 1000 ML INJ 1,000 ML IV ONE (12:00)
[2016-05-26] MEDS ORDERED: PROPOFOL 200 MG/20 ML AMP IV ONE (12:00)
[2016-05-26] MEDS ORDERED: ONDANSETRON HCL 4 MG/2 ML VIAL IV PUSH ONE (12:00)
--- NOTE | 2016-05-26 12:35 | HHI.NPPN ---
Subjective History of Present Illness 55-year-old female known to me from before with past medical history of diabetes mellitus, history of morbid obesity, end-stage renal disease on hemodialysis three times per week, history of chronic anemia, congestive heart failure, spinal stenosis, chronic back pain, hypothyroidism who came to the hospital with complaint of worsening lower abdominal wound. I was called to see the patient for the management of dialysis. The patient has been on hemodialysis Friday, and Friday. Additional Remarks Patient is alert, now post debridement of abd. wound. Review of Systems General Constitutional: Fatigue Respiratory Lungs: SOB Cardiovascular Cardiac: GRIFFIN Objective Data Data 05/25/16 05/26/16 19:00 07:00 Intake Total 1000 ml Output Total 3000 ml Balance -2000 ml Intake Oral 1000 ml Hemodialysis 3000 ml # Voids 1 5 # Bowel Movements 1 1 Vital Signs Date Time Temp Pulse Resp B/P Pulse Ox O2 Delivery O2 Flow Rate FiO2 05/26/16 12:26 96 Nasal Cannula 21 05/26/16 12:00 98.2 63 18 109/54 94 05/26/16 10:49 20 05/26/16 09:30 61 14 126/63 97 Nasal Cannula 2 05/26/16 09:15 62 16 119/63 96 Nasal Cannula 2 05/26/16 09:00 63 14 139/68 93 Room Air 05/26/16 08:54 98.5 68 14 138/70 99 Simple Mask 7 05/26/16 08:00 98.9 71 18 145/62 96 05/26/16 04:00 97.5 67 18 115/58 95 05/26/16 02:26 72 05/26/16 00:00 97.6 70 18 112/65 96 05/25/16 21:30 Room Air 05/25/16 20:00 97.5 74 18 125/59 96 05/25/16 16:00 98.1 57 18 121/57 100 05/25/16 13:51 18 -: 05/25/16 1513 05/25/16 1513 Physical Exam General Appearance: No Acute Distress, Comfortable Eyes Eye Exam: Pupils Equal Throat Throat Exam: Oral Mucosa [place] & Moist Neck Neck Exam: Neck Supple Pulmonary Resp Exam: Breath Sounds Equal, Crackles, Decreased Bases, Diminished Breath Sounds Gastrointestinal/Abdomen GI Exam: Soft, Non-Tender, Distended Extremeties Extremities Exam: Moderate Edema, Pitting Edema, Dependent Edema Neurologic Neuro Exam: Alert, Awake, Oriented Psychiatric Psych Exam: Appropriate Responses Assessment/Plan Assessment Summary: Anemia of CKD, Hypertension, End Stage Renal Disease Problem List: (1) Anemia in chronic kidney disease (CKD) (2) Open wound of abdomen (3) Chronic stasis dermatitis (4) End stage kidney disease Plan Now on Cefepime. Continue the wound care. ID is following. BP is better now. Has some more wounds on side of pelvis, possibly due to friction of the wheelchair. Need to rule out calciphylaxis, Po4 was normal, PTH not very high. Seen by plastic surgery and had debridement of Rt. buttock area. Also has debridement of abd. wound done. Continue HD TTS. Problem Qualifiers (1) Open wound of abdomen: Qualified Code: S31.109A - Open wound of abdomen, initial encounter Valentin Jimenez MD May 26, 2016 12:35
--- NOTE | 2016-05-26 14:53 | HHI.PR ---
Subjective Remarks The patient was resting comfortably in bed. Her family was at the bedside. The patient said she had her wound debrided today. She also said she saw her motorcycle maker. She had no acute complaints. Objective Vitals Vital Signs Date Time Temp Pulse Resp B/P Pulse Ox O2 Delivery O2 Flow Rate FiO2 05/26/16 12:26 96 Nasal Cannula 21 05/26/16 12:00 98.2 63 18 109/54 94 05/26/16 10:49 20 05/26/16 09:30 61 14 126/63 97 Nasal Cannula 2 05/26/16 09:15 62 16 119/63 96 Nasal Cannula 2 05/26/16 09:00 63 14 139/68 93 Room Air 05/26/16 08:54 98.5 68 14 138/70 99 Simple Mask 7 05/26/16 08:00 98.9 71 18 145/62 96 05/26/16 04:00 97.5 67 18 115/58 95 05/26/16 02:26 72 05/26/16 00:00 97.6 70 18 112/65 96 05/25/16 21:30 Room Air 05/25/16 20:00 97.5 74 18 125/59 96 05/25/16 16:00 98.1 57 18 121/57 100 I/O 05/25/16 05/25/16 05/25/16 05/26/16 05/26/16 05/26/16 07:00 15:00 23:00 07:00 15:00 23:00 Intake Total 60 ml 1000 ml 300 ml Output Total 0 ml 3000 ml 50 ml Balance 60 ml -2000 ml 250 ml Intake Oral 60 ml 1000 ml Other 300 ml Stool Total 0 ml Hemodialysis 3000 ml Estimated Blood Loss 50 ml # Voids 1 1 1 4 # Bowel Movements 0 1 1 Result Diagram: 05/25/16 1513 05/25/16 1513 Objective Remarks GENERAL: Morbidly obese female patient in no acute distress. SKIN: Warm and dry. Wound in gluteal cleft and the right hip/ buttocks area. HEAD: Normocephalic and atraumatic. EYES: No injection, drainage, or hyphema noted. PERRLA. EOMI. ENT: No nasal drainage noted. Oropharynx is clear. NECK: Supple and the trachea is midline. CARDIOVASCULAR: Regular rate and rhythm. RESPIRATORY: Breath sounds are equal bilaterally with no accessory muscle use, wheezing, rhonchi, or crackles. GASTROINTESTINAL: Abdomen is soft, non-tender, and nondistended. Dressed surgical wound. Tender to palpation. MUSCULOSKELETAL: No obvious deformities, swelling, cyanosis, or ecchymosis is present throughout the upper and lower extremities. NEUROLOGICAL: Awake, alert, and oriented. Normal speech and gait. Cranial nerves are grossly intact. PSYCH: Mood and affect appropriate. Procedures I&D Debridement Medications and IVs Current Medications Medications (Trade) Dose Ordered Sig/Soren Route Start Time Stop Time Status Last Admin (Norvasc) 5 mg BID PO 05/14/16 21:00 05/26/16 09:00 (Ecotrin Ec) 81 mg DAILY PO 05/15/16 09:00 05/26/16 09:00 (Tenormin) 50 mg BID PO 05/14/16 21:00 05/26/16 09:00 (Lipitor) 80 mg HS PO 05/14/16 21:00 05/25/16 21:26 (Prinivil) 20 mg BID PO 05/14/16 21:00 05/26/16 09:00 (Rocaltrol) 0.5 mcg DAILY PO 05/15/16 09:00 05/26/16 09:00 (PROzac) 20 mg DAILY PO 05/15/16 09:00 05/26/16 09:00 (Neurontin) 100 mg BID PO 05/14/16 21:00 05/26/16 09:00 (Synthroid) 300 mcg DAILY@0600 PO 05/15/16 06:00 05/26/16 05:24 (Antivert) 25 mg TID PRN PO 05/14/16 14:15 (Renvela) 800 mg TID PO 05/14/16 18:00 05/26/16 09:00 (Zanaflex) 4 mg TID PRN PO 05/14/16 14:15 05/21/16 23:31 (NS Flush) 2 ml UNSCH PRN FLUSH 05/14/16 14:30 (NS Flush) 2 ml BID FLUSH 05/14/16 21:00 05/26/16 09:00 (Tylenol) 650 mg Q4H PRN PO 05/14/16 14:30 05/20/16 04:50 (Zofran Inj) 4 mg Q6H PRN IVP 05/14/16 14:30 (Reglan Inj) 5 mg Q6H PRN IV PUSH 05/14/16 14:30 (Dulcolax Supp) 10 mg DAILY PRN [place] 05/14/16 14:30 (Heparin Inj) 5,000 units Q12H SQ 05/14/16 16:00 05/26/16 04:02 Naloxone HCl 0.4 mg 0.4 mg UNSCH PRN IV 05/14/16 14:30 (NS 1000 ml Inj) 1,000 ml @ 0 mls/hr Q0M PRN IV 05/14/16 14:54 05/18/16 13:26 Heparin Sodium (Porcine) 8000 units 8,000 units UNSCH PRN IVF 05/14/16 15:00 Sodium Chloride 1,000 ml @ 200 mls/hr Q5H PRN IV 05/14/16 14:54 05/23/16 10:57 (NS 1000 ml Inj) 1,000 ml @ 0 mls/hr Q0M PRN IV 05/14/16 14:54 (Mannitol Inj) 12.5 gm UNSCH PRN IV 05/14/16 15:00 (Albumin 25% Inj) 25 gm UNSCH PRN IV 05/14/16 15:00 (NS Flush) 5 ml UNSCH PRN IVF 05/14/16 15:00 (Heparin Inj) UNSCH PRN .XX 05/14/16 15:00 05/25/16 11:24 (Gentamicin (Dialysis) Inj) 20 mg UNSCH PRN IV 05/14/16 15:00 05/25/16 11:24 (Zofran Inj) 4 mg UNSCH PRN IV 05/14/16 15:00 (Tylenol) 650 mg UNSCH PRN PO 05/14/16 15:00 05/16/16 09:36 (Benadryl) 25 mg UNSCH PRN PO 05/14/16 15:00 (Nitrostat Sl) 0.4 mg UNSCH PRN SL 05/14/16 15:00 (Catapres) 0.1 mg UNSCH PRN PO 05/14/16 15:00 (Epogen Inj) 10,000 units UNSCH PRN IV 05/14/16 15:00 05/25/16 11:23 (Gelfoam 12 Mm/7 Mm Top) 1 foam UNSCH PRN TOP 05/14/16 15:00 (D50w (Vial) Inj) 25 ml UNSCH PRN IV PUSH 05/14/16 18:45 (Glucagon Inj) 1 mg UNSCH PRN OTHER 05/14/16 18:45 (Dakin'S 0.125% Soln) 120 ml DAILY OTHER 05/17/16 15:00 (Santyl Oint) 1 applic DAILY EXT 05/17/16 15:00 05/18/16 09:00 Acetaminophen/ Hydrocodone Bitart 1 tab 1 tab Q4HR PRN PO 05/19/16 20:00 05/26/16 13:30 (Maxipime Inj/NS Inj) 100 ml @ 200 mls/hr DAILY IV 05/22/16 13:00 05/26/16 09:00 ([place] 5-325 Mg) 1 tab Q4H PRN PO 05/23/16 12:00 05/24/16 11:28 (Levemir Inj) 30 units DAILY SQ 05/24/16 09:00 05/26/16 09:00 (Levemir Inj) 20 units HS SQ 05/23/16 21:00 05/25/16 21:26 Miscellaneous Information ALL NURSING DEPARTME... UNSCH PRN XX 05/26/16 09:30 05/27/16 09:29 ([place]-Colace) 1 tab BID PO 05/26/16 21:00 A/P Assessment and Plan Sepsis/Abdominal pannus/ Wound cellulitis and ulcer General surgery and plastic surgery following. Started on vancomycin and Zosyn. Cultures growing pseudomonas. ID following. - continue cefepime and follow up with ID. - wound care per surgery. S/p debridement 05/26. - physical therapy. Add occupational therapy. - incentive spirometry. Buttocks wound/ soft tissue wound on the right pannus The pt has been complaining of pain in her buttocks and on the right side of her pannus. Wound care consult appreciated. Status post debridement by plastic surgery. - dressings per plastic surgery. - pain control with a bowel regimen. Cough The pt says she has a cough and a raspy voice. - CXR pending. - incentive spirometry. - oxygen and nebs as needed. Morbid Obesity BMI 65. The pt says she had a lap band in the past. - the pt agrees with lifestyle modifications. DM II A1c 6.8%. Glucose well controlled 05/26. - changed Levemir to 30 units daily, 20 units HS. Adjust as needed. - insulin sliding scale. ESRD On Hemodialysis //Fri. - dialysis per nephrology. Chronic low back pain and chronic pain syndrome Exacerbated by wounds. - pain control with a bowel regimen. DVT prophylaxis with Heparin every 12 hours. Discharge Planning Awaiting clinical improvement. Jacoby Sanchez DO May 26, 2016 14:53
--- NOTE | 2016-05-26 15:58 | RADRPT ---
EXAM DATE/TIME: 05/26/2016 15:27 [facility] COMPARISON: CHEST SINGLE AP, April 18, 2016, 11:03. INDICATIONS : Shortness of breath, possible pneumonia. MEDICAL HISTORY : Hypertension. Diabetes mellitus type II. SURGICAL HISTORY : None. ENCOUNTER: Subsequent ACUITY: 1 week PAIN SCORE: 0/10 LOCATION: Bilateral chest FINDINGS: A single view of the chest demonstrates the lungs to be symmetrically aerated without evidence of mas s, infiltrate or effusion. The heart size remains at the upper limits of normal with no perihilar ed mariana. The right-sided double lumen central venous line remains in place. Osseous structures are intact . CONCLUSION: No acute disease. Jacoby Jj MD on May 26, 2016 at 15:56 Board Certified Radiologist. This report was verified electronically.
[2016-05-26] MEDS: DOCUSATE SODIUM 50 MG/SENNA 8.6 MG TAB PO SCH (21:06)
[2016-05-26] MEDS: ATORVASTATIN 80 MG TAB PO SCH (21:07)
[2016-05-27] VITALS (10 sets, daily range): BP systolic 78–133; BP diastolic 39–60; PULSE 45–71; RESP 18–21; TEMP 98.3–99.1; O2SAT 92–100
[2016-05-27] MEDS: HEPARIN SODIUM - SQ 10,000 UNITS/ML VIAL SQ SCH ×2 (03:13→15:57)
[2016-05-27] MEDS: ACETAMINOPHEN/HYDROcodone 325 MG/10 MG TAB PO PRN ×2 (05:51→21:23)
[2016-05-27] MEDS: HIGH DOSE INSULIN NOVOLOG SUPPLEMENTAL SCALE SQ SCH ×4 (05:51→21:00)
[2016-05-27] MEDS: LEVOTHYROXINE SODIUM 150 MCG TAB PO SCH (05:51)
[2016-05-27 07:17] LABS: HEMATOCRIT 27.1 % (35.0-46.0); MEAN CELL VOLUME 78.4 FL (80.0-100.0); MEAN CORPUSCULAR HEMOGLOBIN 24.4 PG (27.0-34.0); MEAN CORPUSCULAR HGB CONC 31.1 % (32.0-36.0); PLATELET COUNT 463 TH/MM3 (150-450); RED BLOOD COUNT 3.46 MIL/MM3 (4.00-5.30); RED CELL DISTRIBUTION WIDTH 21.1 % (11.6-17.2)
[2016-05-27 07:18] LABS: BICARBONATE 26.8 MEQ/L (21.0-32.0); MAGNESIUM 1.5 MG/DL (1.5-2.5); POTASSIUM 4.8 MEQ/L (3.5-5.1)
[2016-05-27 07:24] LABS: REVIEW FLAG FINAL
[2016-05-27] MEDS: GABAPENTIN 100 MG CAP PO SCH ×2 (08:39→21:24)
[2016-05-27] MEDS: ASPIRIN EC 81 MG TABEC PO SCH (08:39)
[2016-05-27] MEDS: SEVELAMER CARBONATE 800 MG TAB PO SCH ×3 (08:39→18:40)
[2016-05-27] MEDS: FLUoxetine HCL 20 MG CAP PO SCH (08:39)
[2016-05-27] MEDS: CALCITRIOL 0.25 MCG CAP PO SCH (08:40)
[2016-05-27] MEDS: INSULIN DETEMIR 100 UNITS/ML VIAL SQ SCH ×2 (08:40→21:00)
[2016-05-27] MEDS: SODIUM CHLORIDE 0.9% FLUSH 5 ML FLUSH FLUSH SCH ×2 (08:41→21:00)
[2016-05-27] MEDS: CEFEPIME INJ 2,000 MG in SODIUM CHLORIDE 0.9% INJ 100 ML IV SCH (08:41)
[2016-05-27] MEDS: SODIUM HYPOCHLORITE 0.125% 500 ML BTL OTHER SCH (09:00)
[2016-05-27] MEDS: COLLAGENASE OINT 30 GM TUBE EXT SCH (09:00)
[2016-05-27] MEDS: DOCUSATE SODIUM 50 MG/SENNA 8.6 MG TAB PO SCH ×2 (09:00→21:24)
--- NOTE | 2016-05-27 09:53 | HHI.PR ---
Subjective Remarks The patient was sitting up in a chair. She said that she was tired. She was also describing some shortness of breath. She denied any chest pain or palpitations. Discussed with nursing. Objective Vitals Vital Signs Date Time Temp Pulse Resp B/P Pulse Ox O2 Delivery O2 Flow Rate FiO2 05/27/16 08:49 Room Air 05/27/16 04:00 98.4 45 20 78/48 96 05/27/16 00:00 98.8 70 21 133/60 92 05/26/16 20:13 54 05/26/16 20:00 Room Air 05/26/16 20:00 98.7 59 20 120/57 98 05/26/16 18:17 18 05/26/16 16:00 98.2 68 18 114/56 94 05/26/16 12:26 96 Nasal Cannula 21 05/26/16 12:00 98.2 63 18 109/54 94 I/O 05/26/16 05/26/16 05/26/16 05/27/16 05/27/16 05/27/16 06:59 14:59 22:59 06:59 14:59 22:59 Intake Total 1020 ml 240 ml Output Total 50 ml Balance 970 ml 240 ml Intake Oral 720 ml 240 ml Other 300 ml Estimated Blood Loss 50 ml # Voids 4 4 2 # Bowel Movements 1 0 0 Result Diagram: 05/27/16 0609 05/27/16 0609 Imaging Last Impressions Chest X-Ray 05/26/16 0000 Signed Impressions: Service Date/Time: Thursday, May 26, 2016 15:27 - CONCLUSION: No acute disease. Jacoby Jj MD Objective Remarks GENERAL: Morbidly obese female patient in no acute distress. SKIN: Warm and dry. Wound in gluteal cleft and the right hip/ buttocks area. HEAD: Normocephalic and atraumatic. EYES: No injection, drainage, or hyphema noted. PERRLA. EOMI. ENT: No nasal drainage noted. Oropharynx is clear. NECK: Supple and the trachea is midline. CARDIOVASCULAR: Regular rate and rhythm. RESPIRATORY: Breath sounds are equal bilaterally with no accessory muscle use, wheezing, rhonchi, or crackles. GASTROINTESTINAL: Abdomen is soft, non-tender, and nondistended. Dressed surgical wound. Tender to palpation. MUSCULOSKELETAL: No obvious deformities, swelling, cyanosis, or ecchymosis is present throughout the upper and lower extremities. NEUROLOGICAL: Awake, alert, and oriented. Normal speech and gait. Cranial nerves are grossly intact. PSYCH: Slightly flattened affect. Procedures I&D Debridement Medications and IVs Current Medications Medications (Trade) Dose Ordered Sig/Soren Route Start Time Stop Time Status Last Admin (Norvasc) 5 mg BID PO 05/14/16 21:00 Hold 05/26/16 21:07 (Ecotrin Ec) 81 mg DAILY PO 05/15/16 09:00 05/27/16 08:39 (Tenormin) 50 mg BID PO 05/14/16 21:00 Hold 05/26/16 21:07 (Lipitor) 80 mg HS PO 05/14/16 21:00 05/26/16 21:07 (Prinivil) 20 mg BID PO 05/14/16 21:00 Hold 05/26/16 21:15 (Rocaltrol) 0.5 mcg DAILY PO 05/15/16 09:00 05/27/16 08:40 (PROzac) 20 mg DAILY PO 05/15/16 09:00 05/27/16 08:39 (Neurontin) 100 mg BID PO 05/14/16 21:00 05/27/16 08:39 (Synthroid) 300 mcg DAILY@0600 PO 05/15/16 06:00 05/27/16 05:51 (Antivert) 25 mg TID PRN PO 05/14/16 14:15 (Renvela) 800 mg TID PO 05/14/16 18:00 05/27/16 08:39 (Zanaflex) 4 mg TID PRN PO 05/14/16 14:15 05/26/16 21:15 (NS Flush) 2 ml UNSCH PRN FLUSH 05/14/16 14:30 (NS Flush) 2 ml BID FLUSH 05/14/16 21:00 05/27/16 08:41 (Tylenol) 650 mg Q4H PRN PO 05/14/16 14:30 05/20/16 04:50 (Zofran Inj) 4 mg Q6H PRN IVP 05/14/16 14:30 (Reglan Inj) 5 mg Q6H PRN IV PUSH 05/14/16 14:30 (Dulcolax Supp) 10 mg DAILY PRN TX 05/14/16 14:30 (Heparin Inj) 5,000 units Q12H SQ 05/14/16 16:00 05/27/16 03:13 Naloxone HCl 0.4 mg 0.4 mg UNSCH PRN IV 05/14/16 14:30 (NS 1000 ml Inj) 1,000 ml @ 0 mls/hr Q0M PRN IV 05/14/16 14:54 05/18/16 13:26 Heparin Sodium (Porcine) 8000 units 8,000 units UNSCH PRN IVF 05/14/16 15:00 Sodium Chloride 1,000 ml @ 200 mls/hr Q5H PRN IV 05/14/16 14:54 05/23/16 10:57 (NS 1000 ml Inj) 1,000 ml @ 0 mls/hr Q0M PRN IV 05/14/16 14:54 (Mannitol Inj) 12.5 gm UNSCH PRN IV 05/14/16 15:00 (Albumin 25% Inj) 25 gm UNSCH PRN IV 05/14/16 15:00 (NS Flush) 5 ml UNSCH PRN IVF 05/14/16 15:00 (Heparin Inj) UNSCH PRN .XX 05/14/16 15:00 05/25/16 11:24 (Gentamicin (Dialysis) Inj) 20 mg UNSCH PRN IV 05/14/16 15:00 05/25/16 11:24 (Zofran Inj) 4 mg UNSCH PRN IV 05/14/16 15:00 (Tylenol) 650 mg UNSCH PRN PO 05/14/16 15:00 05/16/16 09:36 (Benadryl) 25 mg UNSCH PRN PO 05/14/16 15:00 (Nitrostat Sl) 0.4 mg UNSCH PRN SL 05/14/16 15:00 (Catapres) 0.1 mg UNSCH PRN PO 05/14/16 15:00 (Epogen Inj) 10,000 units UNSCH PRN IV 05/14/16 15:00 05/25/16 11:23 (Gelfoam 12 Mm/7 Mm Top) 1 foam UNSCH PRN TOP 05/14/16 15:00 (D50w (Vial) Inj) 25 ml UNSCH PRN IV PUSH 05/14/16 18:45 (Glucagon Inj) 1 mg UNSCH PRN OTHER 05/14/16 18:45 (Dakin'S 0.125% Soln) 120 ml DAILY OTHER 05/17/16 15:00 (Santyl Oint) 1 applic DAILY EXT 05/17/16 15:00 05/18/16 09:00 Acetaminophen/ Hydrocodone Bitart 1 tab 1 tab Q4HR PRN PO 05/19/16 20:00 05/27/16 05:51 (Maxipime Inj/NS Inj) 100 ml @ 200 mls/hr DAILY IV 05/22/16 13:00 05/27/16 08:41 ([place] 5-325 Mg) 1 tab Q4H PRN PO 05/23/16 12:00 05/24/16 11:28 (Levemir Inj) 30 units DAILY SQ 05/24/16 09:00 05/27/16 08:40 (Levemir Inj) 20 units HS SQ 05/23/16 21:00 05/26/16 21:08 (Luciana-Colace) 1 tab BID PO 05/26/16 21:00 05/26/16 21:06 A/P Assessment and Plan Sepsis/Abdominal pannus/ Wound cellulitis and ulcer General surgery and plastic surgery following. Started on vancomycin and Zosyn. Cultures growing pseudomonas. ID following. - continue cefepime and follow up with ID. - wound care per surgery. S/p debridement 05/26. - physical therapy. Add occupational therapy. - incentive spirometry. Buttocks wound/ soft tissue wound on the right pannus The pt has been complaining of pain in her buttocks and on the right side of her pannus. Wound care consult appreciated. Status post debridement by plastic surgery. - dressings per plastic surgery. - pain control with a bowel regimen. Hypotension/ bradycardia SBP was low and heart rate noted to be in the 40s. The pt feels lethargic. EKG with RBBB, 1st degree AVB, no acute ischemic changes. Blood pressure has improved. - fluids if needed as the pt does produce urine. - telemetry. - trops and lactic acid level pending. - hold antihypertensive regimen and monitor. - careful use of pain meds. Cough/ Dyspnea The pt says she has a cough and a raspy voice. CXR 05/26 unremarkable. Now with shortness of breath. Sats are good on room air. - repeat CXR pending. - incentive spirometry. - oxygen and nebs as needed. Morbid Obesity BMI 65. The pt says she had a lap band in the past. - the pt agrees with lifestyle modifications. DM II A1c 6.8%. Glucose well controlled 05/27. - changed Levemir to 30 units daily, 20 units HS. Adjust as needed. - insulin sliding scale. ESRD On Hemodialysis /Fri. - dialysis per nephrology. Chronic low back pain and chronic pain syndrome Exacerbated by wounds. - pain control with a bowel regimen. DVT prophylaxis with Heparin every 12 hours. Discharge Planning Awaiting clinical improvement. Jacoby Sanchez DO May 27, 2016 09:53
--- NOTE | 2016-05-27 10:12 | RADRPT ---
EXAM DATE/TIME: 05/27/2016 09:26 [facility] COMPARISON: CHEST SINGLE AP, May 26, 2016, 15:27. INDICATIONS : Shortness of breath. MEDICAL HISTORY : Hypertension. Diabetes mellitus type II. SURGICAL HISTORY : None. ENCOUNTER: Subsequent ACUITY: 1 week PAIN SCORE: 0/10 LOCATION: Bilateral chest FINDINGS: A single view of the chest demonstrates lungs to be symmetrically aerated with no acute infiltrate. H eart size is borderline prominent but well compensated. Large bore right IJ dialysis type catheter pr ojects over the central venous system. Osseous structures are intact with some degenerative spurring of the dorsal spine. CONCLUSION: 1. Borderline prominent but well compensated heart. 2. No acute cardiopulmonary process. Dane Raymond MD on May 27, 2016 at 10:09 Board Certified Radiologist. This report was verified electronically.
[2016-05-27] MEDS ORDERED: SODIUM CHLOR 0.9% 1000 ML INJ 1,000 ML IV SCH (12:45)
--- NOTE | 2016-05-27 13:33 | MP ---
cc: KYLER JOHNSON M.D. DATE OF SURGERY: 05/26/2016 PREOPERATIVE DIAGNOSES 1. Right lower abdomen deep wound, 25 x 15 cm. 2. Right lateral abdomen 10 x 5 cm wound, superficial. POSTOPERATIVE DIAGNOSIS 1. Right lower abdomen deep wound, 25 x 15 cm. 2. Right lateral abdomen 10 x 5 cm wound, superficial. SURGEON Dr. Johnson ANESTHESIA General. OPERATION 1. Excisional debridement of right lower abdomen, 25 x 15 cm deep wound. 2. Right lateral abdomen, 10 x 5 cm superficial wound. INDICATIONS This is a 55-year-old extremely obese white female approximately 350 plus pounds who has a huge pannus and the right side of the lower pannus has been necrotic. It was previously debrided about a week ago, now it is ready for a second excisional debridement. She also has developed another wound on the lateral aspect of the pannus on the flank side, possibly being compressed against the wheelchair side. PROCEDURE The patient was brought to the operating room, was given anesthesia in supine position, transferred to the operating table with adequate padding. Prep and drape was done. A timeout was called and completed. She is on a schedule antibiotic. The abdominal wound is far better than last time with mostly a small amount of necrotic skin edges which were sharply excised. The fat was sharply curetted off and the areas of necrotic areolar tissue and fascia were also excised with a blade and scissors. Hemostasis was completed with cautery. On the right lateral aspect the full-thickness of skin and fat were excised with a 15 blade. A couple of blood vessels needed to be suture ligated. All the areas were scrubbed copiously with Betadine soap and scrub brush and were irrigated clean, packed with Betadine-soaked Martina bandages and 4x4 dressing. The patient remained stable. Intraoperative blood loss was less than 10 cc. No complications. signed, not fully reviewed MD GLO Parnell/SARKIS /8:51 AM /1:22 PM [facility]
[2016-05-27 14:30] LABS: HEMATOCRIT 25.5 % (35.0-46.0); MEAN CELL VOLUME 77.9 FL (80.0-100.0); MEAN CORPUSCULAR HEMOGLOBIN 24.9 PG (27.0-34.0); MEAN CORPUSCULAR HGB CONC 31.9 % (32.0-36.0); PLATELET COUNT 443 TH/MM3 (150-450); RED BLOOD COUNT 3.28 MIL/MM3 (4.00-5.30); RED CELL DISTRIBUTION WIDTH 20.7 % (11.6-17.2); WHITE BLOOD COUNT 14.6 TH/MM3 (4.0-11.0)
[2016-05-27 14:31] LABS: REVIEW FLAG FINAL
[2016-05-27] MEDS: ACETAMINOPHEN/HYDROcodone 325 MG/5 MG TAB PO PRN (17:45)
--- NOTE | 2016-05-27 18:06 | HHI.NPPN ---
Subjective History of Present Illness 55-year-old female known to me from before with past medical history of diabetes mellitus, history of morbid obesity, end-stage renal disease on hemodialysis three times per week, history of chronic anemia, congestive heart failure, spinal stenosis, chronic back pain, hypothyroidism who came to the hospital with complaint of worsening lower abdominal wound. I was called to see the patient for the management of dialysis. The patient has been on hemodialysis Friday, and Friday. Additional Remarks Patient is alert, has some confusion and Hypotension in AM. Review of Systems General Constitutional: Fatigue Respiratory Lungs: SOB Cardiovascular Cardiac: GRIFFIN Objective Data Data 05/26/16 05/27/16 19:00 07:00 Intake Total 1020 ml 240 ml Output Total 50 ml Balance 970 ml 240 ml Intake Oral 720 ml 240 ml Other 300 ml Estimated Blood Loss 50 ml # Voids 4 2 # Bowel Movements 0 0 Vital Signs Date Time Temp Pulse Resp B/P Pulse Ox O2 Delivery O2 Flow Rate FiO2 05/27/16 12:00 99.1 71 20 96/44 94 05/27/16 10:42 71 91/47 05/27/16 09:30 56 116/48 05/27/16 08:49 Room Air 05/27/16 08:00 98.5 47 20 93/39 100 05/27/16 07:54 47 05/27/16 04:00 98.4 45 20 78/48 96 05/27/16 00:00 98.8 70 21 133/60 92 05/26/16 20:13 54 05/26/16 20:00 Room Air 05/26/16 20:00 98.7 59 20 120/57 98 05/26/16 18:17 18 -: 05/27/16 1417 05/27/16 0609 Physical Exam General Appearance: No Acute Distress, Comfortable Eyes Eye Exam: Pupils Equal Throat Throat Exam: Oral Mucosa [place] & Moist Neck Neck Exam: Neck Supple Pulmonary Resp Exam: Breath Sounds Equal, Crackles, Decreased Bases, Diminished Breath Sounds Gastrointestinal/Abdomen GI Exam: Soft, Non-Tender, Distended Extremeties Extremities Exam: Moderate Edema, Pitting Edema, Dependent Edema Neurologic Neuro Exam: Alert, Awake, Oriented Psychiatric Psych Exam: Appropriate Responses Assessment/Plan Assessment Summary: Anemia of CKD, Hypertension, End Stage Renal Disease Problem List: (1) Anemia in chronic kidney disease (CKD) (2) Open wound of abdomen (3) Chronic stasis dermatitis (4) End stage kidney disease Plan Now on Cefepime. Continue the wound care. ID is following. Has some more wounds on side of pelvis, possibly due to friction of the wheelchair. Need to rule out calciphylaxis, Po4 was normal, PTH not very high. Seen by plastic surgery and had debridement of Rt. buttock area. Also has debridement of abd. wound done. BP was low in early AM, now better, got IVF Bolus, off all antihypertensive meds. Follow Hgb. HD will be in AM. Problem Qualifiers (1) Open wound of abdomen: Qualified Code: S31.109A - Open wound of abdomen, initial encounter Valentin Jimenez MD May 27, 2016 18:06
[2016-05-27] MEDS: ATORVASTATIN 80 MG TAB PO SCH (21:24)
[2016-05-28] VITALS: BP 111/53; PULSE 68; RESP 16; TEMP 98.6; O2SAT 96
[2016-05-28 04:00] VITALS: BP 118/58; PULSE 67; RESP 18; TEMP 98.6; O2SAT 95
[2016-05-28] MEDS: LEVOTHYROXINE SODIUM 150 MCG TAB PO SCH (05:16)
[2016-05-28] MEDS: ACETAMINOPHEN/HYDROcodone 325 MG/10 MG TAB PO PRN ×4 (05:16→22:21)
[2016-05-28] MEDS: HEPARIN SODIUM - SQ 10,000 UNITS/ML VIAL SQ SCH ×2 (05:18→18:37)
[2016-05-28] MEDS: HIGH DOSE INSULIN NOVOLOG SUPPLEMENTAL SCALE SQ SCH ×4 (06:42→21:44)
[2016-05-28 06:59] VITALS: PULSE 69
[2016-05-28 07:18] LABS: MEAN CELL VOLUME 79.7 FL (80.0-100.0); MEAN CORPUSCULAR HEMOGLOBIN 24.6 PG (27.0-34.0); MEAN CORPUSCULAR HGB CONC 30.8 % (32.0-36.0); PLATELET COUNT 378 TH/MM3 (150-450); RED BLOOD COUNT 3.01 MIL/MM3 (4.00-5.30); RED CELL DISTRIBUTION WIDTH 20.7 % (11.6-17.2); WHITE BLOOD COUNT 12.8 TH/MM3 (4.0-11.0)
[2016-05-28 07:21] LABS: REVIEW FLAG FINAL
[2016-05-28 07:33] LABS: BICARBONATE 25.7 MEQ/L (21.0-32.0); MAGNESIUM 1.4 MG/DL (1.5-2.5); POTASSIUM 4.1 MEQ/L (3.5-5.1)
[2016-05-28] MEDS: HEPARIN SODIUM - IV 10,000 UNITS/10 ML VIAL PRN (08:37)
[2016-05-28] MEDS: EPOETIN ALFA 10,000 UNITS/ML VIAL IV PRN (08:37)
[2016-05-28] MEDS: GENTAMICIN SULFATE (DIALYSIS USE ONLY) 20 MG/2 ML VIAL IV PRN (08:37)
[2016-05-28] MEDS: SODIUM CHLOR 0.9% 1000 ML INJ 1,000 ML IV PRN (08:38)
[2016-05-28 08:42] LABS: CALCIUM-PROTEIN CORRECTED 7.5 MG/DL (8.5-10.1)
[2016-05-28] MEDS: SEVELAMER CARBONATE 800 MG TAB PO SCH ×3 (09:00→18:06)
[2016-05-28] MEDS: COLLAGENASE OINT 30 GM TUBE EXT SCH (09:00)
[2016-05-28] MEDS: SODIUM HYPOCHLORITE 0.125% 500 ML BTL OTHER SCH (09:00)
--- NOTE | 2016-05-28 10:31 | HHI.NPPN ---
Subjective History of Present Illness 55-year-old female known to me from before with past medical history of diabetes mellitus, history of morbid obesity, end-stage renal disease on hemodialysis three times per week, history of chronic anemia, congestive heart failure, spinal stenosis, chronic back pain, hypothyroidism who came to the hospital with complaint of worsening lower abdominal wound. I was called to see the patient for the management of dialysis. The patient has been on hemodialysis Friday, and Friday. Additional Remarks Patient is alert, now on HD, feeling better, has jerking in hand. Review of Systems General Constitutional: Fatigue Respiratory Lungs: SOB Cardiovascular Cardiac: GRIFFIN Objective Data Data 05/27/16 05/28/16 19:00 07:00 Intake Total 840 ml 240 ml Balance 840 ml 240 ml Intake Oral 840 ml 240 ml # Voids 2 0 # Bowel Movements 0 0 Vital Signs Date Time Temp Pulse Resp B/P Pulse Ox O2 Delivery O2 Flow Rate FiO2 05/28/16 07:40 Room Air 05/28/16 06:59 69 05/28/16 04:00 98.6 67 18 118/58 95 05/28/16 00:00 98.6 68 16 111/53 96 05/27/16 20:00 98 Room Air 05/27/16 20:00 98.3 69 18 113/54 97 05/27/16 19:59 68 05/27/16 16:00 98.5 68 20 98/46 94 05/27/16 12:00 99.1 71 20 96/44 94 05/27/16 10:42 71 91/47 -: 05/28/16 0619 05/28/16 0619 Physical Exam General Appearance: No Acute Distress, Comfortable Eyes Eye Exam: Pupils Equal Throat Throat Exam: Oral Mucosa [place] & Moist Neck Neck Exam: Neck Supple Pulmonary Resp Exam: Breath Sounds Equal, Crackles, Decreased Bases, Diminished Breath Sounds Gastrointestinal/Abdomen GI Exam: Soft, Non-Tender, Distended Extremeties Extremities Exam: Moderate Edema, Pitting Edema, Dependent Edema Neurologic Neuro Exam: Alert, Awake, Oriented Psychiatric Psych Exam: Appropriate Responses Assessment/Plan Assessment Summary: Anemia of CKD, Hypertension, End Stage Renal Disease Problem List: (1) Anemia in chronic kidney disease (CKD) (2) Open wound of abdomen (3) Chronic stasis dermatitis (4) End stage kidney disease Plan Now on Cefepime. Continue the wound care. ID is following. Has some more wounds on side of pelvis, possibly due to friction of the wheelchair. Unlikely calciphylaxis, Po4 was normal, PTH not very high. Seen by plastic surgery and had debridement of Rt. buttock area. Also has debridement of abd. wound done. Now with wound Vac. BP is better. Has asterixis. Will increase HD to 4 hrs. Problem Qualifiers (1) Open wound of abdomen: Qualified Code: S31.109A - Open wound of abdomen, initial encounter Valentin Jimenez MD May 28, 2016 10:30
--- NOTE | 2016-05-28 10:40 | EKG ---
Date Performed: 05/27/2016 Time Performed: 08:28:42 PTAGE: 55 years EKG: Sinus bradycardia with borderline 1st degree A-V block Severe right axis deviation Right bu ndle branch block Possible anterior infarct - age undetermined Inferior/lateral ST-T changes are nons pecific Low QRS voltages in precordial leads Abnormal ECG NO PREVIOUS TRACING DOCTOR: Jerardo Burdick Interpretating Date/Time 05/28/2016 10:38:48
[2016-05-28 12:00] VITALS: BP 110/55; PULSE 95; RESP 18; TEMP 97.9; O2SAT 95
[2016-05-28] MEDS ORDERED: IRON SUCROSE IV ONE (12:00)
[2016-05-28] MEDS ORDERED: SODIUM CHLORIDE 0.9% IV ONE (12:00)
[2016-05-28] MEDS: CALCITRIOL 0.25 MCG CAP PO SCH (13:11)
[2016-05-28] MEDS: FLUoxetine HCL 20 MG CAP PO SCH (13:11)
[2016-05-28] MEDS: ASPIRIN EC 81 MG TABEC PO SCH (13:12)
[2016-05-28] MEDS: DOCUSATE SODIUM 50 MG/SENNA 8.6 MG TAB PO SCH ×2 (13:12→21:44)
[2016-05-28] MEDS: INSULIN DETEMIR 100 UNITS/ML VIAL SQ SCH ×2 (13:12→21:44)
[2016-05-28] MEDS: GABAPENTIN 100 MG CAP PO SCH ×2 (13:12→21:45)
[2016-05-28] MEDS: SODIUM CHLORIDE 0.9% FLUSH 5 ML FLUSH FLUSH SCH ×2 (13:33→21:45)
[2016-05-28] MEDS: CEFEPIME INJ 2,000 MG in SODIUM CHLORIDE 0.9% INJ 100 ML IV SCH (13:34)
[2016-05-28 16:00] VITALS: BP 123/60; PULSE 74; RESP 20; TEMP 99.8; O2SAT 95
--- NOTE | 2016-05-28 17:52 | HHI.PR ---
Subjective Remarks Patient complains of generalized involuntary "twitching." This has been going on for about 3 weeks. She states she notices it most when she is taxing on her phone. The patient states she is also tired of having different doctors coming in all the time and that she does not want to answer any questions today. The patient also complains of some pain in her abdomen but states that the pain medicine does help. Objective Vitals Vital Signs Date Time Temp Pulse Resp B/P Pulse Ox O2 Delivery O2 Flow Rate FiO2 05/28/16 12:00 97.9 95 18 110/55 95 05/28/16 07:40 Room Air 05/28/16 06:59 69 05/28/16 04:00 98.6 67 18 118/58 95 05/28/16 00:00 98.6 68 16 111/53 96 05/27/16 20:00 98 Room Air 05/27/16 20:00 98.3 69 18 113/54 97 05/27/16 19:59 68 I/O 05/27/16 05/27/16 05/27/16 05/28/16 05/28/16 05/28/16 07:00 15:00 23:00 07:00 15:00 23:00 Intake Total 240 ml 840 ml 240 ml Output Total 3000 ml Balance 240 ml 840 ml 240 ml -3000 ml Intake Oral 240 ml 840 ml 240 ml Hemodialysis 3000 ml # Voids 2 2 0 # Bowel Movements 0 0 0 Result Diagram: 05/28/1661805/28/16618 Objective Remarks GENERAL: Pleasant, morbidly obese middle-age female patient. SKIN: Warm and dry. HEAD: Normocephalic. EYES: No scleral icterus. No injection or drainage. NECK: Supple, trachea midline. No JVD or lymphadenopathy. CARDIOVASCULAR: Regular rate and rhythm without murmurs, gallops, or rubs. RESPIRATORY: Breath sounds equal bilaterally. No accessory muscle use. GASTROINTESTINAL: Obese over hanging pannus. Abdomen soft, non-tender, nondistended. EXTREMITIES: Chronic pedal edema. NEUROLOGICAL: Awake, alert, and oriented x 3. Non-focal. Procedures I&D Debridement A/P Assessment and Plan Sepsis/Abdominal pannus/ Wound cellulitis and ulcer General surgery and plastic surgery and ID following. Cultures growing pseudomonas. - continue cefepime and follow up with ID. - wound care per surgery. S/p debridement 05/26. - physical therapy. Add occupational therapy. - incentive spirometry. Buttocks wound/ soft tissue wound on the right pannus The pt has been complaining of pain in her buttocks and on the right side of her pannus. Wound care consult appreciated. Status post debridement by plastic surgery. - dressings per plastic surgery. - pain control with a bowel regimen. Hypotension/ bradycardia - resolved. BP and pulse wnl today. trop, and EKG were negative. lactate was mildly elevated , but repeat wnl. - hold antihypertensive regimen and monitor. - careful use of pain meds. Cough/ Dyspnea The pt says she has a cough and a raspy voice. CXR 05/26 unremarkable. Sats are good on room air. - repeat CXR 05/27 - clear - I reviewed the images personally. - incentive spirometry. - oxygen and nebs as needed. Morbid Obesity BMI 65. The pt says she had a lap band in the past. - the pt agrees with lifestyle modifications. DM II A1c 6.8%. Glucose well controlled 05/28. - cont Levemir to 30 units daily, 20 units HS. Adjust as needed. - insulin sliding scale. ESRD On Hemodialysis //Fri. - dialysis per nephrology. Chronic low back pain and chronic pain syndrome Exacerbated by wounds. - pain control with a bowel regimen. DVT prophylaxis with Heparin every 12 hours. Kylee Han MD May 28, 2016 17:52
[2016-05-28] MEDS ORDERED: MAGNESIUM SULFATE 1 GM PREMIX 100 ML IV ONE (18:00)
[2016-05-28 20:00] VITALS: BP 99/53; PULSE 78; RESP 18; TEMP 97.2; O2SAT 94
[2016-05-28] MEDS: ATORVASTATIN 80 MG TAB PO SCH (21:44)
[2016-05-29] VITALS (9 sets, daily range): BP systolic 120–157; BP diastolic 58–70; PULSE 70–79; RESP 18–24; TEMP 97.9–99.2; O2SAT 91–100
[2016-05-29] MEDS: ACETAMINOPHEN/HYDROcodone 325 MG/10 MG TAB PO PRN ×5 (04:35→21:20)
[2016-05-29] MEDS: HEPARIN SODIUM - SQ 10,000 UNITS/ML VIAL SQ SCH ×2 (04:36→16:00)
[2016-05-29] MEDS: LEVOTHYROXINE SODIUM 150 MCG TAB PO SCH (06:00)
[2016-05-29] MEDS: HIGH DOSE INSULIN NOVOLOG SUPPLEMENTAL SCALE SQ SCH ×4 (06:05→21:00)
[2016-05-29] MEDS: COLLAGENASE OINT 30 GM TUBE EXT SCH (09:00)
[2016-05-29] MEDS: ASPIRIN EC 81 MG TABEC PO SCH (09:00)
[2016-05-29] MEDS: SODIUM HYPOCHLORITE 0.125% 500 ML BTL OTHER SCH (09:00)
[2016-05-29] MEDS: FLUoxetine HCL 20 MG CAP PO SCH (09:00)
[2016-05-29] MEDS: INSULIN DETEMIR 100 UNITS/ML VIAL SQ SCH ×2 (09:00→21:18)
[2016-05-29] MEDS: CALCITRIOL 0.25 MCG CAP PO SCH (09:00)
[2016-05-29] MEDS: DOCUSATE SODIUM 50 MG/SENNA 8.6 MG TAB PO SCH ×2 (09:00→21:19)
[2016-05-29] MEDS: CEFEPIME INJ 2,000 MG in SODIUM CHLORIDE 0.9% INJ 100 ML IV SCH (09:00)
[2016-05-29] MEDS: GABAPENTIN 100 MG CAP PO SCH ×2 (09:00→21:20)
[2016-05-29] MEDS: SODIUM CHLORIDE 0.9% FLUSH 5 ML FLUSH FLUSH SCH ×2 (09:00→21:00)
[2016-05-29] MEDS: SEVELAMER CARBONATE 800 MG TAB PO SCH ×3 (09:00→17:02)
[2016-05-29 14:49] LABS: HEMATOCRIT 25.9 % (35.0-46.0)
[2016-05-29 14:55] LABS: REVIEW FLAG FINAL
--- NOTE | 2016-05-29 18:30 | HHI.PR ---
Subjective Remarks Patient is having moderate abdominal pain. She states that her son states that the right buttock wound looked worse during the dressing change today. She does not feel that the nurses can tell her if the wound is healing or not and would like Dr. Johnson to see her again. Objective Vitals Vital Signs Date Time Temp Pulse Resp B/P Pulse Ox O2 Delivery O2 Flow Rate FiO2 05/29/16 16:07 98.4 72 18 129/63 100 05/29/16 12:34 97.9 72 20 139/61 97 05/29/16 09:00 95 Room Air 05/29/16 08:06 98.6 70 18 157/69 93 05/29/16 04:00 99.2 72 20 120/58 91 05/29/16 00:00 98.9 74 24 122/58 94 05/28/16 20:00 97.2 78 18 99/53 94 05/28/16 20:00 Room Air I/O 05/28/16 05/28/16 05/28/16 05/29/16 05/29/16 05/29/16 07:00 15:00 23:00 07:00 15:00 23:00 Intake Total 240 ml 360 ml 0 ml 0 ml 720 ml Output Total 3000 ml Balance 240 ml -2640 ml 0 ml 0 ml 720 ml Intake Oral 240 ml 360 ml 0 ml 0 ml 720 ml Hemodialysis 3000 ml # Voids 0 3 1 0 3 # Bowel Movements 0 0 0 0 0 Result Diagram: 05/29/16 1359 05/28/16 0619 Objective Remarks GENERAL: Pleasant, morbidly obese middle-age female patient. SKIN: Warm and dry. HEAD: Normocephalic. EYES: No scleral icterus. No injection or drainage. NECK: Supple, trachea midline. No JVD or lymphadenopathy. CARDIOVASCULAR: Regular rate and rhythm without murmurs, gallops, or rubs. RESPIRATORY: Breath sounds equal bilaterally. No accessory muscle use. GASTROINTESTINAL: Obese over hanging pannus. Wound VAC in place over lower abdomen. Abdomen soft, non-tender, nondistended. EXTREMITIES: Chronic pedal edema. NEUROLOGICAL: Awake, alert, and oriented x 3. Non-focal. Procedures I&D Debridement A/P Assessment and Plan Sepsis/Abdominal pannus/ Wound cellulitis and ulcer General surgery and plastic surgery and ID following. Cultures growing pseudomonas. - continue cefepime and follow up with ID. - wound care per surgery. S/p debridement 05/26. -I will look at the right buttock wound tomorrow during dressing change - have asked nurses to wait until I come by to do the dressing change so that the patient does not have to be repositioned twice that she has pain with movement for dressing changes. - physical therapy. Add occupational therapy. - incentive spirometry. Buttocks wound/ soft tissue wound on the right pannus The pt has been complaining of pain in her buttocks and on the right side of her pannus. Wound care consult appreciated. Status post debridement by plastic surgery. - dressings per plastic surgery. - pain control with a bowel regimen. Hypotension/ bradycardia - resolved. BP and pulse wnl today. trop, and EKG were negative. lactate was mildly elevated , but repeat wnl. - hold antihypertensive regimen and monitor. - careful use of pain meds. Cough/ Dyspnea The pt says she has a cough and a raspy voice. CXR 05/26 unremarkable. Sats are good on room air. - repeat CXR 05/27 - clear - I reviewed the images personally. - incentive spirometry. - oxygen and nebs as needed. Morbid Obesity BMI 65. The pt says she had a lap band in the past. - the pt agrees with lifestyle modifications. DM II A1c 6.8%. Glucose well controlled 05/28. - cont Levemir to 30 units daily, 20 units HS. Adjust as needed. - insulin sliding scale. ESRD On Hemodialysis //Fri. - dialysis per nephrology. Anemia of chronic kidney disease. Hemoglobin stable at 8 today. Minimize blood draws. Chronic low back pain and chronic pain syndrome Exacerbated by wounds. - pain control with a bowel regimen. DVT prophylaxis with Heparin every 12 hours. Kylee Han MD May 29, 2016 18:30
[2016-05-29] MEDS: ATORVASTATIN 80 MG TAB PO SCH (21:20)
--- NOTE | 2016-05-29 22:23 | HHI.NPPN ---
Subjective History of Present Illness 55-year-old female known to me from before with past medical history of diabetes mellitus, history of morbid obesity, end-stage renal disease on hemodialysis three times per week, history of chronic anemia, congestive heart failure, spinal stenosis, chronic back pain, hypothyroidism who came to the hospital with complaint of worsening lower abdominal wound. I was called to see the patient for the management of dialysis. The patient has been on hemodialysis Friday, and Friday. Additional Remarks Patient is alert, mild lower abd. pain, no SOB. Review of Systems General Constitutional: Fatigue Respiratory Lungs: SOB Cardiovascular Cardiac: GRIFFIN Objective Data Data 05/28/16 05/29/16 19:00 07:00 Intake Total 360 ml 0 ml Output Total 3000 ml Balance -2640 ml 0 ml Intake Oral 360 ml 0 ml Hemodialysis 3000 ml # Voids 3 1 # Bowel Movements 0 0 Vital Signs Date Time Temp Pulse Resp B/P Pulse Ox O2 Delivery O2 Flow Rate FiO2 05/29/16 21:28 98.8 75 18 145/65 93 05/29/16 20:15 98.9 75 18 157/69 94 05/29/16 16:07 98.4 72 18 129/63 100 05/29/16 12:34 97.9 72 20 139/61 97 05/29/16 09:00 95 Room Air 05/29/16 08:06 98.6 70 18 157/69 93 05/29/16 04:00 99.2 72 20 120/58 91 05/29/16 00:00 98.9 74 24 122/58 94 -: 05/29/16 1359 05/28/16 0619 Physical Exam General Appearance: No Acute Distress, Comfortable Eyes Eye Exam: Pupils Equal Throat Throat Exam: Oral Mucosa [place] & Moist Neck Neck Exam: Neck Supple Pulmonary Resp Exam: Breath Sounds Equal, Crackles, Decreased Bases, Diminished Breath Sounds Gastrointestinal/Abdomen GI Exam: Soft, Non-Tender, Distended Extremeties Extremities Exam: Moderate Edema, Pitting Edema, Dependent Edema Neurologic Neuro Exam: Alert, Awake, Oriented Psychiatric Psych Exam: Appropriate Responses Assessment/Plan Assessment Summary: Anemia of CKD, Hypertension, End Stage Renal Disease Problem List: (1) Anemia in chronic kidney disease (CKD) (2) Open wound of abdomen (3) Chronic stasis dermatitis (4) End stage kidney disease Plan Now on Cefepime. Continue the wound care. ID is following. Has some more wounds on side of pelvis, possibly due to friction of the wheelchair. Unlikely calciphylaxis, Po4 was normal, PTH not very high. Seen by plastic surgery and had debridement of Rt. buttock area. Also has debridement of abd. wound done. Now with wound Vac. BP is better. HD done yesterday. Hgb. repeat is stable. Problem Qualifiers (1) Open wound of abdomen: Qualified Code: S31.109A - Open wound of abdomen, initial encounter Valentin Jimenez MD May 29, 2016 22:23
[2016-05-30] VITALS (8 sets, daily range): BP systolic 111–160; BP diastolic 49–72; PULSE 55–77; RESP 16–18; TEMP 98.1–99; O2SAT 93–99
[2016-05-30] MEDS: ACETAMINOPHEN/HYDROcodone 325 MG/10 MG TAB PO PRN ×5 (01:21→21:22)
[2016-05-30] MEDS: HEPARIN SODIUM - SQ 10,000 UNITS/ML VIAL SQ SCH ×2 (06:09→16:00)
[2016-05-30] MEDS: LEVOTHYROXINE SODIUM 150 MCG TAB PO SCH (06:10)
[2016-05-30] MEDS: HIGH DOSE INSULIN NOVOLOG SUPPLEMENTAL SCALE SQ SCH ×4 (06:10→20:32)
[2016-05-30 07:30] LABS: AUTOMATED NEUTROPHIL # 9.8 TH/MM3 (1.8-7.7); BASOPHIL # 0.1 TH/MM3 (0-0.2); BASOPHIL % 0.9 % (0.0-2.0); EOSINOPHIL # 0.3 TH/MM3 (0-0.4); EOSINOPHIL % 2.4 % (0.0-4.0); HEMATOCRIT 25.9 % (35.0-46.0); LYMPH % 14.6 % (9.0-44.0); LYMPHOCYTE # 1.9 TH/MM3 (1.0-4.8); MEAN CELL VOLUME 77.6 FL (80.0-100.0); MEAN CORPUSCULAR HEMOGLOBIN 24.1 PG (27.0-34.0); MONO % 6.2 % (0.0-8.0); NEUT % 75.9 % (16.0-70.0); PLATELET COUNT 411 TH/MM3 (150-450); RED BLOOD COUNT 3.34 MIL/MM3 (4.00-5.30); RED CELL DISTRIBUTION WIDTH 20.7 % (11.6-17.2); WHITE BLOOD COUNT 12.9 TH/MM3 (4.0-11.0)
[2016-05-30 07:38] LABS: HEMO FLAGS AUTO DIFF
[2016-05-30 08:03] LABS: BICARBONATE 26.7 MEQ/L (21.0-32.0); POTASSIUM 4.1 MEQ/L (3.5-5.1)
[2016-05-30 08:21] LABS: BANDS 14 % (0-6); EOSINOPHILS 2 % (0-4); MYELOCYTES 1 % (0-0); NEUTROPHIL # MANUAL DIFF 9.9 TH/MM3 (1.8-7.7); POLYS (SEG NEUTROPHILS) 62 % (16-70); WBC DIFF SAMPLE 100
[2016-05-30 08:22] LABS: PLATELET ESTIMATE SMEAR NORMAL (NORMAL); PLATELET MORPHOLOGY NORMAL (NORMAL); SCAN/DIFF FINAL DIFF MANUAL
[2016-05-30] MEDS: CEFEPIME INJ 2,000 MG in SODIUM CHLORIDE 0.9% INJ 100 ML IV SCH (09:00)
[2016-05-30] MEDS: CALCITRIOL 0.25 MCG CAP PO SCH (09:00)
[2016-05-30] MEDS: COLLAGENASE OINT 30 GM TUBE EXT SCH (09:00)
[2016-05-30] MEDS: GABAPENTIN 100 MG CAP PO SCH ×2 (09:00→20:31)
[2016-05-30] MEDS: SODIUM CHLORIDE 0.9% FLUSH 5 ML FLUSH FLUSH SCH ×2 (09:00→20:29)
[2016-05-30] MEDS: FLUoxetine HCL 20 MG CAP PO SCH (09:00)
[2016-05-30] MEDS: INSULIN DETEMIR 100 UNITS/ML VIAL SQ SCH ×2 (09:00→20:31)
[2016-05-30] MEDS: SEVELAMER CARBONATE 800 MG TAB PO SCH ×3 (09:00→17:15)
[2016-05-30] MEDS: SODIUM HYPOCHLORITE 0.125% 500 ML BTL OTHER SCH (09:00)
[2016-05-30] MEDS: DOCUSATE SODIUM 50 MG/SENNA 8.6 MG TAB PO SCH ×2 (09:00→20:31)
[2016-05-30] MEDS: ASPIRIN EC 81 MG TABEC PO SCH (09:00)
[2016-05-30] MEDS: HEPARIN SODIUM - IV 10,000 UNITS/10 ML VIAL PRN (09:35)
[2016-05-30] MEDS: EPOETIN ALFA 10,000 UNITS/ML VIAL IV PRN (09:35)
[2016-05-30] MEDS: SODIUM CHLOR 0.9% 1000 ML INJ 1,000 ML IV PRN (09:35)
[2016-05-30] MEDS: GENTAMICIN SULFATE (DIALYSIS USE ONLY) 20 MG/2 ML VIAL IV PRN (09:35)
--- NOTE | 2016-05-30 11:10 | HHI.NPPN ---
Subjective History of Present Illness 55-year-old female known to me from before with past medical history of diabetes mellitus, history of morbid obesity, end-stage renal disease on hemodialysis three times per week, history of chronic anemia, congestive heart failure, spinal stenosis, chronic back pain, hypothyroidism who came to the hospital with complaint of worsening lower abdominal wound. I was called to see the patient for the management of dialysis. The patient has been on hemodialysis Friday, and Friday. Additional Remarks Patient is alert, seen during HD. Review of Systems General Constitutional: Fatigue Respiratory Lungs: SOB Cardiovascular Cardiac: GRIFFIN Objective Data Data 05/29/16 05/30/16 19:00 07:00 Intake Total 720 ml 1080 ml Balance 720 ml 1080 ml Intake Oral 720 ml 1080 ml # Voids 3 5 # Bowel Movements 0 0 Vital Signs Date Time Temp Pulse Resp B/P Pulse Ox O2 Delivery O2 Flow Rate FiO2 05/30/16 03:30 98.6 72 18 146/67 93 05/29/16 23:10 98.8 76 18 152/70 93 05/29/16 21:28 98.8 75 18 145/65 93 05/29/16 20:15 98.9 75 18 157/69 94 05/29/16 20:00 Room Air 05/29/16 20:00 79 05/29/16 16:07 98.4 72 18 129/63 100 05/29/16 12:34 97.9 72 20 139/61 97 -: 05/30/16 0625 05/30/16 0625 Physical Exam General Appearance: No Acute Distress, Comfortable Eyes Eye Exam: Pupils Equal Throat Throat Exam: Oral Mucosa [place] & Moist Neck Neck Exam: Neck Supple Pulmonary Resp Exam: Breath Sounds Equal, Crackles, Decreased Bases, Diminished Breath Sounds Gastrointestinal/Abdomen GI Exam: Soft, Non-Tender, Distended Extremeties Extremities Exam: Moderate Edema, Pitting Edema, Dependent Edema Neurologic Neuro Exam: Alert, Awake, Oriented Psychiatric Psych Exam: Appropriate Responses Assessment/Plan Assessment Summary: Anemia of CKD, Hypertension, End Stage Renal Disease Problem List: (1) Anemia in chronic kidney disease (CKD) (2) Open wound of abdomen (3) Chronic stasis dermatitis (4) End stage kidney disease Plan Now on Cefepime. Continue the wound care. ID is following. Has some more wounds on side of pelvis, possibly due to friction of the wheelchair. Unlikely calciphylaxis, Po4 was normal, PTH not very high. Seen by plastic surgery and had debridement of Rt. buttock area. Also has debridement of abd. wound done. Now with wound Vac. BP is better. HD now, remove fluid as tolerated. Give one dose of Venofer. Problem Qualifiers (1) Open wound of abdomen: Qualified Code: S31.109A - Open wound of abdomen, initial encounter Valentin Jimenez MD May 30, 2016 11:10
[2016-05-30] MEDS ORDERED: IRON SUCROSE 100 MG/5 ML VIAL IV PUSH ONE (12:00)
--- NOTE | 2016-05-30 19:34 | HHI.PR ---
Subjective Remarks C/o chronic b/l hip paresthesias and pain, wants to do dialysis in room so she doesn't have to be transported. Objective Vitals Vital Signs Date Time Temp Pulse Resp B/P Pulse Ox O2 Delivery O2 Flow Rate FiO2 05/30/16 16:00 98.2 71 16 120/68 95 05/30/16 12:00 98.4 77 16 160/72 96 05/30/16 08:00 94 Room Air 05/30/16 08:00 98.1 71 18 145/67 96 05/30/16 03:30 98.6 72 18 146/67 93 05/29/16 23:10 98.8 76 18 152/70 93 05/29/16 21:28 98.8 75 18 145/65 93 05/29/16 20:15 98.9 75 18 157/69 94 05/29/16 20:00 Room Air 05/29/16 20:00 79 I/O 05/29/16 05/29/16 05/29/16 05/30/16 05/30/16 05/30/16 07:00 15:00 23:00 07:00 15:00 23:00 Intake Total 0 ml 720 ml 720 ml 360 ml 120 ml Output Total 3000 ml Balance 0 ml 720 ml 720 ml 360 ml -2880 ml Intake Oral 0 ml 720 ml 720 ml 360 ml 120 ml Hemodialysis 3000 ml # Voids 0 3 3 2 0 # Bowel Movements 0 0 0 0 0 Result Diagram: 05/30/1625 05/30/16 0625 Objective Remarks GENERAL: Pleasant, morbidly obese middle-age female patient. SKIN: Warm and dry. HEAD: Normocephalic. EYES: No scleral icterus. No injection or drainage. NECK: Supple, trachea midline. No JVD or lymphadenopathy. CARDIOVASCULAR: Regular rate and rhythm without murmurs, gallops, or rubs. RESPIRATORY: Breath sounds equal bilaterally. No accessory muscle use. GASTROINTESTINAL: Obese over hanging pannus. Wound VAC in place over lower abdomen. Abdomen soft, non-tender, nondistended. EXTREMITIES: Chronic pedal edema. NEUROLOGICAL: Awake, alert, and oriented x 3. Non-focal. Procedures I&D Debridement A/P Assessment and Plan Sepsis/Abdominal pannus/ Wound cellulitis and ulcer General surgery and plastic surgery and ID following. Cultures growing pseudomonas. - continue cefepime and follow up with ID. - wound care per surgery. S/p debridement 05/26. -I will look at the right buttock wound tomorrow during dressing change (pt too painful today) - have asked nurses to wait until I come by to do the dressing change so that the patient does not have to be repositioned twice that she has pain with movement for dressing changes. - physical therapy. Add occupational therapy. - incentive spirometry. Buttocks wound/ soft tissue wound on the right pannus The pt has been complaining of pain in her buttocks and on the right side of her pannus. Wound care consult appreciated. Status post debridement by plastic surgery. - dressings per plastic surgery. - pain control with a bowel regimen. Hypotension/ bradycardia - resolved. BP and pulse wnl today. trop, and EKG were negative. lactate was mildly elevated , but repeat wnl. - hold antihypertensive regimen and monitor. - careful use of pain meds. Cough/ Dyspnea - resolved The pt says she has a cough and a raspy voice. CXR 05/26 unremarkable. Sats are good on room air. - repeat CXR 05/27 - clear - I reviewed the images personally. - incentive spirometry. - oxygen and nebs as needed. Morbid Obesity BMI 65. The pt says she had a lap band in the past. - the pt agrees with lifestyle modifications. DM II A1c 6.8%. Glucose well controlled 05/28. - cont Levemir to 30 units daily, 20 units HS. Adjust as needed. - insulin sliding scale. ESRD On Hemodialysis //Fri. - dialysis per nephrology. Anemia of chronic kidney disease. Hemoglobin stable at 8 today. Minimize blood draws. Chronic low back pain and chronic pain syndrome Exacerbated by wounds. - pain control with a bowel regimen. DVT prophylaxis with Heparin every 12 hours. Kylee Han MD May 30, 2016 19:34
[2016-05-30] MEDS: ATORVASTATIN 80 MG TAB PO SCH (20:31)
[2016-05-31] VITALS (7 sets, daily range): BP systolic 114–167; BP diastolic 57–72; PULSE 72–76; RESP 18–20; TEMP 98.1–98.9; O2SAT 93–97
[2016-05-31] MEDS: HEPARIN SODIUM - SQ 10,000 UNITS/ML VIAL SQ SCH ×2 (05:15→16:44)
[2016-05-31] MEDS: LEVOTHYROXINE SODIUM 150 MCG TAB PO SCH (05:15)
[2016-05-31] MEDS: ACETAMINOPHEN/HYDROcodone 325 MG/10 MG TAB PO PRN ×5 (05:16→21:52)
[2016-05-31] MEDS: HIGH DOSE INSULIN NOVOLOG SUPPLEMENTAL SCALE SQ SCH ×4 (06:20→21:00)
[2016-05-31] MEDS: SEVELAMER CARBONATE 800 MG TAB PO SCH ×3 (08:15→17:31)
[2016-05-31] MEDS: CEFEPIME INJ 2,000 MG in SODIUM CHLORIDE 0.9% INJ 100 ML IV SCH (08:15)
[2016-05-31] MEDS: GABAPENTIN 100 MG CAP PO SCH ×2 (08:15→21:52)
[2016-05-31] MEDS: CALCITRIOL 0.25 MCG CAP PO SCH (08:16)
[2016-05-31] MEDS: FLUoxetine HCL 20 MG CAP PO SCH (08:16)
[2016-05-31] MEDS: SODIUM CHLORIDE 0.9% FLUSH 5 ML FLUSH FLUSH SCH ×2 (08:16→21:00)
[2016-05-31] MEDS: INSULIN DETEMIR 100 UNITS/ML VIAL SQ SCH ×2 (08:16→21:52)
[2016-05-31] MEDS: ASPIRIN EC 81 MG TABEC PO SCH (08:16)
[2016-05-31] MEDS: DOCUSATE SODIUM 50 MG/SENNA 8.6 MG TAB PO SCH ×2 (08:16→21:00)
[2016-05-31] MEDS: SODIUM HYPOCHLORITE 0.125% 500 ML BTL OTHER SCH (08:18)
[2016-05-31] MEDS: COLLAGENASE OINT 30 GM TUBE EXT SCH (08:18)
--- NOTE | 2016-05-31 11:58 | HHI.IDPN ---
Subjective Subjective Remarks Notes reviewed No fever Had debridement of wounds in lateral aspect of her abdomen/pannus R Pain not under control Antibiotics Cefepime Lines PIV Past Medical History Reviewed Allergies: Coded Allergies: Biaxin (Verified Allergy, Severe, swelling of face, 05/10/16) Iron (Verified Adverse Reaction, Severe, Constipation, 05/10/16) Objective . Vital Signs Date Time Temp Pulse Resp B/P Pulse Ox O2 Delivery O2 Flow Rate FiO2 05/31/16 11:06 Room Air 21 05/31/16 08:00 98.7 72 20 114/57 94 05/31/16 05:59 98.3 75 18 154/66 93 05/30/16 23:15 99.0 73 18 145/61 99 05/30/16 21:00 Room Air 05/30/16 20:00 73 05/30/16 19:40 98.7 77 18 111/49 93 05/30/16 16:00 98.2 71 16 120/68 95 05/30/16 12:00 98.4 77 16 160/72 96 05/30/16 05/30/16 05/31/16 15:00 23:00 07:00 Intake Total 120 ml 240 ml 480 ml Output Total 3000 ml Balance -2880 ml 240 ml 480 ml Intake Oral 120 ml 240 ml 480 ml Hemodialysis 3000 ml # Voids 0 2 1 # Bowel Movements 0 0 0 . Laboratory Tests Test 05/29/16 05/30/16 13:59 06:25 Hemoglobin 8.1 GM/DL 8.0 GM/DL Hematocrit 25.9 % 25.9 % White Blood Count 12.9 TH/MM3 Red Blood Count 3.34 MIL/MM3 Mean Corpuscular Volume 77.6 FL Mean Corpuscular Hemoglobin 24.1 PG Mean Corpuscular Hemoglobin 31.0 % Concent Red Cell Distribution Width 20.7 % Platelet Count 411 TH/MM3 Mean Platelet Volume 7.3 FL Neutrophils (%) (Auto) 75.9 % Lymphocytes (%) (Auto) 14.6 % Monocytes (%) (Auto) 6.2 % Eosinophils (%) (Auto) 2.4 % Basophils (%) (Auto) 0.9 % Neutrophils # (Auto) 9.8 TH/MM3 Lymphocytes # (Auto) 1.9 TH/MM3 Monocytes # (Auto) 0.8 TH/MM3 Eosinophils # (Auto) 0.3 TH/MM3 Basophils # (Auto) 0.1 TH/MM3 CBC Comment AUTO DIFF Differential Total Cells 100 Counted Neutrophils % (Manual) 62 % Band Neutrophils % 14 % Lymphocytes % 16 % Monocytes % 5 % Eosinophils % 2 % Neutrophils # (Manual) 9.9 TH/MM3 Myelocytes 1 % Differential Comment FINAL DIFF MANUAL Platelet Estimate NORMAL Platelet Morphology Comment NORMAL Laboratory Tests Test 05/30/16 06:25 Sodium Level 135 MEQ/L Potassium Level 4.1 MEQ/L Chloride Level 96 MEQ/L Carbon Dioxide Level 26.7 MEQ/L Anion Gap 12 MEQ/L Blood Urea Nitrogen 37 MG/DL Creatinine 4.21 MG/DL Estimat Glomerular Filtration 11 ML/MIN Rate Random Glucose 140 MG/DL Calcium Level 8.5 MG/DL Physical Exam GENERAL: awake and alert, NAD SKIN: Cool and dry. No generalized rash. HEENT: [place] conjunctivae. No scleral icterus. No injection or drainage. Moist oral mucosa. NECK: Supple, nontender, no meningeal signs. CARDIOVASCULAR: Regular rate and rhythm. Soft heart sounds. RESPIRATORY: Clear to auscultation. Breath sounds equal bilaterally. Decreased BS at bases GASTROINTESTINAL: Abdomen is obese, has large pannus, and there is a large open wound with packing. No cellulitis. Has wound vac in place. Wound R lateral aspect with packing. (+) BS normoactive. MUSCULOSKELETAL: BLE has leather texture brown color of her whole leg and feet. Warm, no cyanosis. No calf tenderness. NEUROLOGICAL: Awake and alert. Cranial nerves II through XII intact. Motor and sensory grossly within normal limits. Normal speech. PSYCH: Normal affect, calm and cooperative Assessment & Plan Remarks IMPRESSION Large open wound, abdominal pannus R, with surrounding cellulitis - cellulitis has resolved - Had undergone debridement - has another wound R lateral pannus that is S/P debridement also Leukocytosis due to the infected wound, better ESRD on HD Morbid obesity Anemia RECOMMENDATION Wound care per plastic surgery Stop Abx Clinically stable from ID standpoint I will sign off Please reconsult if with any onew ID issue or question Shea Zavala MD May 31, 2016 11:58
--- NOTE | 2016-05-31 16:00 | HHI.PR ---
Subjective Remarks Hip pain is improved. Discussed with wound nurse and I viewed pictures taken by son today- the right hip wound looks necrotic and in need of debridement. Objective Vitals Vital Signs Date Time Temp Pulse Resp B/P Pulse Ox O2 Delivery O2 Flow Rate FiO2 05/31/16 12:00 98.3 74 20 158/63 97 05/31/16 11:06 Room Air 21 05/31/16 08:00 98.7 72 20 114/57 94 05/31/16 05:59 98.3 75 18 154/66 93 05/30/16 23:15 99.0 73 18 145/61 99 05/30/16 21:00 Room Air 05/30/16 20:00 73 05/30/16 19:40 98.7 77 18 111/49 93 05/30/16 16:00 98.2 71 16 120/68 95 I/O 05/30/16 05/30/16 05/30/16 05/31/16 05/31/16 05/31/16 07:00 15:00 23:00 07:00 15:00 23:00 Intake Total 360 ml 120 ml 240 ml 480 ml Output Total 3000 ml Balance 360 ml -2880 ml 240 ml 480 ml Intake Oral 360 ml 120 ml 240 ml 480 ml Hemodialysis 3000 ml # Voids 2 0 2 1 # Bowel Movements 0 0 0 0 Result Diagram: 05/30/1662405/30/16624 Objective Remarks GENERAL: Pleasant, morbidly obese middle-age female patient. SKIN: Warm and dry. HEAD: Normocephalic. EYES: No scleral icterus. No injection or drainage. NECK: Supple, trachea midline. No JVD or lymphadenopathy. CARDIOVASCULAR: Regular rate and rhythm without murmurs, gallops, or rubs. RESPIRATORY: Breath sounds equal bilaterally. No accessory muscle use. GASTROINTESTINAL: Obese over hanging pannus. Wound VAC in place over lower abdomen. Abdomen soft, non-tender, nondistended. EXTREMITIES: Chronic pedal edema. NEUROLOGICAL: Awake, alert, and oriented x 3. Non-focal. Procedures I&D Debridement A/P Assessment and Plan Sepsis/Abdominal pannus/ Wound cellulitis and ulcer General surgery and plastic surgery and ID following. Cultures growing pseudomonas. - continue cefepime and follow up with ID. - wound care per surgery. S/p debridement 05/26. -Right hip wound is worsening as per photos and discussion with wound care nurse. Will reconsult plastic surgery - apparently Dr. Johnson is out of town and asked that we consult Dr. Meyers. - physical therapy. Add occupational therapy. - incentive spirometry. Buttocks wound/ soft tissue wound on the right pannus The pt has been complaining of pain in her buttocks and on the right side of her pannus. Wound care consult appreciated. Status post debridement by plastic surgery. - dressings per plastic surgery. - pain control with a bowel regimen. Hypotension/ bradycardia - resolved. BP and pulse wnl today. trop, and EKG were negative. lactate was mildly elevated , but repeat wnl. - hold antihypertensive regimen and monitor. - careful use of pain meds. Cough/ Dyspnea - resolved The pt says she has a cough and a raspy voice. CXR 05/26 unremarkable. Sats are good on room air. - repeat CXR 05/27 - clear - I reviewed the images personally. - incentive spirometry. - oxygen and nebs as needed. Morbid Obesity BMI 65. The pt says she had a lap band in the past. - the pt agrees with lifestyle modifications. DM II A1c 6.8%. Glucose well controlled 05/28. - cont Levemir to 30 units daily, 20 units HS. Adjust as needed. - insulin sliding scale. ESRD On Hemodialysis /Fri. - dialysis per nephrology. Anemia of chronic kidney disease. Hemoglobin stable at 8 today. Minimize blood draws. Chronic low back pain and chronic pain syndrome Exacerbated by wounds. - pain control with a bowel regimen. DVT prophylaxis with Heparin every 12 hours. Kylee Han MD May 31, 2016 16:00
--- NOTE | 2016-05-31 20:08 | HHI.NPPN ---
Subjective History of Present Illness 55-year-old female known to me from before with past medical history of diabetes mellitus, history of morbid obesity, end-stage renal disease on hemodialysis three times per week, history of chronic anemia, congestive heart failure, spinal stenosis, chronic back pain, hypothyroidism who came to the hospital with complaint of worsening lower abdominal wound. I was called to see the patient for the management of dialysis. The patient has been on hemodialysis Friday, and Friday. Additional Remarks Patient is alert, has mild pain in Rt. flank area, where she has wound. Review of Systems General Constitutional: Fatigue Respiratory Lungs: SOB Cardiovascular Cardiac: GRIFFIN Objective Data Data 05/30/16 05/31/16 19:00 07:00 Intake Total 120 ml 720 ml Output Total 3000 ml Balance -2880 ml 720 ml Intake Oral 120 ml 720 ml Hemodialysis 3000 ml # Voids 0 3 # Bowel Movements 0 0 Vital Signs Date Time Temp Pulse Resp B/P Pulse Ox O2 Delivery O2 Flow Rate FiO2 05/31/16 16:00 98.1 72 20 151/61 95 05/31/16 12:00 98.3 74 20 158/63 97 05/31/16 11:06 Room Air 21 05/31/16 08:00 98.7 72 20 114/57 94 05/31/16 05:59 98.3 75 18 154/66 93 05/30/16 23:15 99.0 73 18 145/61 99 05/30/16 21:00 Room Air -: 05/30/16 0625 05/30/16 0625 Physical Exam General Appearance: No Acute Distress, Comfortable Eyes Eye Exam: Pupils Equal Throat Throat Exam: Oral Mucosa [place] & Moist Neck Neck Exam: Neck Supple Pulmonary Resp Exam: Breath Sounds Equal, Crackles, Decreased Bases, Diminished Breath Sounds Gastrointestinal/Abdomen GI Exam: Soft, Non-Tender, Distended Extremeties Extremities Exam: Moderate Edema, Pitting Edema, Dependent Edema Neurologic Neuro Exam: Alert, Awake, Oriented Psychiatric Psych Exam: Appropriate Responses Assessment/Plan Assessment Summary: Anemia of CKD, Hypertension, End Stage Renal Disease Problem List: (1) Anemia in chronic kidney disease (CKD) (2) Open wound of abdomen (3) Chronic stasis dermatitis (4) End stage kidney disease Plan Now on Cefepime. Continue the wound care. ID is following. 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 Seen by plastic surgery and had debridement of Rt. buttock area. Also has debridement of abd. wound done. Now with wound Vac. Will consider skin Biopsy and starting Na. Thiosulfate treatment. Problem Qualifiers (1) Open wound of abdomen: Qualified Code: S31.109A - Open wound of abdomen, initial encounter Valentin Jimenez MD May 31, 2016 20:08 Qualified Code: S31.109A - Open wound of abdomen, initial encounter Valentin Jimenez MD May 31, 2016 20:08
[2016-05-31] MEDS: ATORVASTATIN 80 MG TAB PO SCH (21:52)
[2016-06-01 03:38] VITALS: BP 151/77; PULSE 73; RESP 18; TEMP 98.1; O2SAT 95
[2016-06-01] MEDS: HEPARIN SODIUM - SQ 10,000 UNITS/ML VIAL SQ SCH ×2 (04:59→17:46)
[2016-06-01] MEDS: LEVOTHYROXINE SODIUM 150 MCG TAB PO SCH (04:59)
[2016-06-01] MEDS: ACETAMINOPHEN/HYDROcodone 325 MG/10 MG TAB PO PRN ×4 (04:59→21:22)
[2016-06-01] MEDS: HIGH DOSE INSULIN NOVOLOG SUPPLEMENTAL SCALE SQ SCH ×4 (06:00→21:00)
[2016-06-01 08:00] VITALS: BP 157/76; PULSE 70; RESP 18; TEMP 98.2; O2SAT 96
[2016-06-01 08:10] VITALS: PULSE 74
[2016-06-01] MEDS: COLLAGENASE OINT 30 GM TUBE EXT SCH (09:00)
[2016-06-01] MEDS: CALCITRIOL 0.25 MCG CAP PO SCH (09:00)
[2016-06-01] MEDS: SODIUM HYPOCHLORITE 0.125% 500 ML BTL OTHER SCH (09:00)
[2016-06-01] MEDS: DOCUSATE SODIUM 50 MG/SENNA 8.6 MG TAB PO SCH ×2 (09:00→21:00)
[2016-06-01] MEDS: INSULIN DETEMIR 100 UNITS/ML VIAL SQ SCH ×2 (10:12→21:25)
[2016-06-01] MEDS: ASPIRIN EC 81 MG TABEC PO SCH (10:13)
[2016-06-01] MEDS: SEVELAMER CARBONATE 800 MG TAB PO SCH ×3 (10:13→17:46)
[2016-06-01] MEDS: FLUoxetine HCL 20 MG CAP PO SCH (10:13)
[2016-06-01] MEDS: GABAPENTIN 100 MG CAP PO SCH ×2 (10:14→21:22)
[2016-06-01] MEDS: CEFEPIME INJ 2,000 MG in SODIUM CHLORIDE 0.9% INJ 100 ML IV SCH (10:46)
[2016-06-01 12:00] VITALS: BP_SYST 115; BP_SYST 119; BP_DIAS 57; BP_DIAS 72; PULSE 68; RESP 18; TEMP 96.8; TEMP 98.4; O2SAT 96; O2SAT 99
[2016-06-01 16:00] VITALS: BP 180/76; PULSE 75; RESP 18; TEMP 98; O2SAT 98
--- NOTE | 2016-06-01 17:17 | HHI.NPPN ---
Subjective History of Present Illness 55-year-old female known to me from before with past medical history of diabetes mellitus, history of morbid obesity, end-stage renal disease on hemodialysis three times per week, history of chronic anemia, congestive heart failure, spinal stenosis, chronic back pain, hypothyroidism who came to the hospital with complaint of worsening lower abdominal wound. I was called to see the patient for the management of dialysis. The patient has been on hemodialysis Friday, and Friday. Additional Remarks Patient is alert, refused HD. Review of Systems General Constitutional: Fatigue Respiratory Lungs: SOB Cardiovascular Cardiac: GRIFFIN Objective Data Data 05/31/16 06/01/16 19:00 07:00 Intake Total 720 ml 1050 ml Balance 720 ml 1050 ml Intake Oral 720 ml 1050 ml # Voids 1 7 # Bowel Movements 0 1 Vital Signs Date Time Temp Pulse Resp B/P Pulse Ox O2 Delivery O2 Flow Rate FiO2 06/01/16 16:00 98.0 75 18 180/76 98 06/01/16 12:00 98.4 68 18 119/57 99 06/01/16 11:12 20 06/01/16 08:00 98.2 70 18 157/76 96 06/01/16 08:00 Room Air 06/01/16 03:38 98.1 73 18 151/77 95 05/31/16 23:40 98.7 75 18 167/72 94 05/31/16 21:00 Room Air 05/31/16 20:00 76 05/31/16 19:25 98.9 73 18 156/67 96 -: 05/30/16 0625 05/30/16 0625 Physical Exam General Appearance: No Acute Distress, Comfortable Eyes Eye Exam: Pupils Equal Throat Throat Exam: Oral Mucosa [place] & Moist Neck Neck Exam: Neck Supple Pulmonary Resp Exam: Breath Sounds Equal, Crackles, Decreased Bases, Diminished Breath Sounds Gastrointestinal/Abdomen GI Exam: Soft, Non-Tender, Distended Extremeties Extremities Exam: Moderate Edema, Pitting Edema, Dependent Edema Neurologic Neuro Exam: Alert, Awake, Oriented Psychiatric Psych Exam: Appropriate Responses Assessment/Plan Assessment Summary: Anemia of CKD, Hypertension, End Stage Renal Disease Problem List: (1) Anemia in chronic kidney disease (CKD) (2) Open wound of abdomen (3) Chronic stasis dermatitis (4) End stage kidney disease Plan Now on Cefepime. Continue the wound care. ID is following. Has some more wounds on side of pelvis, possibly due to friction of the wheelchair. 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 buttock area. Also has debridement of abd. wound done. Now with wound Vac. HD Refused discussed, she states she spoke to Dr. Jimenez to arrange HD in room [facility] states there was no talks and she is stable to go down for HD need to speak to In charge Nurse She will need sodium Thiosulfate with HD Add Cinacalcet 30 mg daily as it may help to decrease PTH to lowest possible limits, there are several case reports that Calciphylaxis also occur at slightly higher levels of PTH. Problem Qualifiers (1) Open wound of abdomen: Qualified Code: S31.109A - Open wound of abdomen, initial encounter Jessie Birmingham MD Jun 01, 2016 17:17
[2016-06-01 20:00] VITALS: BP 136/57; PULSE 74; RESP 22; TEMP 98.6; O2SAT 97
--- NOTE | 2016-06-01 21:04 | HHI.PR ---
Subjective Remarks pt refused dialysis today. 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 not complaining of pain today. no plastics note. Objective Vitals Vital Signs Date Time Temp Pulse Resp B/P Pulse Ox O2 Delivery O2 Flow Rate FiO2 06/01/16 16:00 98.0 75 18 180/76 98 06/01/16 15:40 20 06/01/16 12:00 98.4 68 18 119/57 99 06/01/16 08:10 74 06/01/16 08:00 98.2 70 18 157/76 96 06/01/16 08:00 Room Air 06/01/16 03:38 98.1 73 18 151/77 95 05/31/16 23:40 98.7 75 18 167/72 94 I/O 05/31/16 05/31/16 05/31/16 06/01/16 06/01/16 06/01/16 07:00 15:00 23:00 07:00 15:00 23:00 Intake Total 480 ml 720 ml 720 ml 330 ml Balance 480 ml 720 ml 720 ml 330 ml Intake Oral 480 ml 720 ml 720 ml 330 ml # Voids 1 1 5 2 # Bowel Movements 0 0 0 1 Result Diagram: 05/30/1662405/30/16624 Objective Remarks GENERAL: Pleasant, morbidly obese middle-age female patient. SKIN: Warm and dry. HEAD: Normocephalic. EYES: No scleral icterus. No injection or drainage. NECK: Supple, trachea midline. No JVD or lymphadenopathy. CARDIOVASCULAR: Regular rate and rhythm without murmurs, gallops, or rubs. RESPIRATORY: Breath sounds equal bilaterally. No accessory muscle use. GASTROINTESTINAL: Obese over hanging pannus. Wound VAC in place over lower abdomen. Abdomen soft, non-tender, nondistended. EXTREMITIES: Chronic pedal edema. NEUROLOGICAL: Awake, alert, and oriented x 3. Non-focal. 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 Cultures growing pseudomonas. - continue abx per ID - wound care per surgery. S/p debridement 05/26. -Right hip wound is worsening as per photos and discussion with wound care nurse. Will reconsult plastic surgery - apparently Dr. Johnson is out of town and asked that we consult Dr. Meyers. consult still pending. patient will need biopsy to confirm calchiphylaxis per nephrology - sodium Thiosulfate with HD - physical therapy. Add occupational therapy. - incentive spirometry. Morbid Obesity BMI 65. The pt says she had a lap band in the past. - the pt agrees with lifestyle modifications. DM II A1c 6.8%. Glucose well controlled 05/28. - cont Levemir to 30 units daily, 20 units HS. Adjust as needed. - insulin sliding scale. ESRD On Hemodialysis //Fri. - dialysis per nephrology. Anemia of chronic kidney disease. Hemoglobin stable at 8. Minimize blood draws. Chronic low back pain and chronic pain syndrome Exacerbated by wounds. - pain control, with a bowel regimen. DVT prophylaxis with Heparin every 12 hours. Kylee Han MD Jun 01, 2016 21:04
[2016-06-01] MEDS: ATORVASTATIN 80 MG TAB PO SCH (21:22)
[2016-06-01] MEDS: SODIUM CHLORIDE 0.9% FLUSH 5 ML FLUSH FLUSH SCH (21:27)
[2016-06-02] VITALS: BP 148/66; PULSE 71; PULSE 74; RESP 22; TEMP 98.6; O2SAT 97
[2016-06-02] MEDS ORDERED: CHLORHEXIDINE GLUCONATE 2 % 1 PACK (2 CLOTHS)(extra cloths) TOP PRN (00:15)
[2016-06-02] MEDS: CHLORHEXIDINE GLUCONATE 2 % 1 PACK (2 CLOTHS)(taper/protocol) TOP SCH (00:22)
[2016-06-02] MEDS: HEPARIN SODIUM - SQ 10,000 UNITS/ML VIAL SQ SCH ×2 (00:22→17:37)
[2016-06-02] MEDS: ACETAMINOPHEN/HYDROcodone 325 MG/10 MG TAB PO PRN ×4 (00:23→19:45)
[2016-06-02] MEDS: ACETAMINOPHEN 325 MG TAB PO PRN (02:49)
[2016-06-02 04:00] VITALS: BP 147/62; PULSE 69; RESP 22; TEMP 98.6; O2SAT 97
[2016-06-02] MEDS: LEVOTHYROXINE SODIUM 150 MCG TAB PO SCH (06:00)
[2016-06-02] MEDS: HIGH DOSE INSULIN NOVOLOG SUPPLEMENTAL SCALE SQ SCH ×3 (06:01→16:00)
[2016-06-02 06:40] LABS: BLOOD UREA NITROGEN 42 MG/DL (7-18); GLOMERULAR FILTRATION RATE 10 ML/MIN (>89)
[2016-06-02 06:41] LABS: ANION GAP 13 MEQ/L (5-15); CHLORIDE 95 MEQ/L (98-107); POTASSIUM 3.7 MEQ/L (3.5-5.1); SODIUM (NA) 137 MEQ/L (136-145)
[2016-06-02 08:00] VITALS: BP 130/65; PULSE 70; RESP 25; TEMP 98.5; O2SAT 98
[2016-06-02] MEDS: SODIUM CHLOR 0.9% 1000 ML INJ 1,000 ML IV PRN (08:14)
[2016-06-02] MEDS: HEPARIN SODIUM - IV 10,000 UNITS/10 ML VIAL PRN (08:14)
[2016-06-02] MEDS: EPOETIN ALFA 10,000 UNITS/ML VIAL IV PRN (08:14)
[2016-06-02] MEDS: GENTAMICIN SULFATE (DIALYSIS USE ONLY) 20 MG/2 ML VIAL IV PRN (08:14)
[2016-06-02] MEDS: SODIUM THIOSULFATE INJ 12,500 MG in WATER STERILE FOR INJ 100 ML IV PRN (08:51)
[2016-06-02] MEDS: INSULIN DETEMIR 100 UNITS/ML VIAL SQ SCH ×2 (09:00→21:00)
[2016-06-02] MEDS: SODIUM HYPOCHLORITE 0.125% 500 ML BTL OTHER SCH (09:00)
--- NOTE | 2016-06-02 10:30 | HHI.NPPN ---
Subjective History of Present Illness 55-year-old female known to me from before with past medical history of diabetes mellitus, history of morbid obesity, end-stage renal disease on hemodialysis three times per week, history of chronic anemia, congestive heart failure, spinal stenosis, chronic back pain, hypothyroidism who came to the hospital with complaint of worsening lower abdominal wound. I was called to see the patient for the management of dialysis. The patient has been on hemodialysis Friday, and Friday. Additional Remarks Patient is alert, seen during HD. Review of Systems General Constitutional: Fatigue Respiratory Lungs: SOB Cardiovascular Cardiac: GRIFFIN Objective Data Data 06/01/16 06/02/16 19:00 07:00 Intake Total 250 ml Balance 250 ml Intake Oral 250 ml # Voids 1 # Bowel Movements 1 Vital Signs Date Time Temp Pulse Resp B/P Pulse Ox O2 Delivery O2 Flow Rate FiO2 06/02/16 08:00 98.5 70 25 130/65 98 06/02/16 08:00 70 06/02/16 04:00 98.6 69 22 147/62 97 06/02/16 00:00 98.6 74 22 148/66 97 06/02/16 00:00 71 06/01/16 20:00 98.6 74 22 136/57 97 06/01/16 16:00 98.0 75 18 180/76 98 06/01/16 15:40 20 06/01/16 12:00 98.4 68 18 119/57 99 -: 05/30/16 0625 06/02/16 0407 Physical Exam General Appearance: No Acute Distress, Comfortable Eyes Eye Exam: Pupils Equal Throat Throat Exam: Oral Mucosa [place] & Moist Neck Neck Exam: Neck Supple Pulmonary Resp Exam: Breath Sounds Equal, Crackles, Decreased Bases, Diminished Breath Sounds Gastrointestinal/Abdomen GI Exam: Soft, Non-Tender, Distended Extremeties Extremities Exam: Moderate Edema, Pitting Edema, Dependent Edema Neurologic Neuro Exam: Alert, Awake, Oriented Psychiatric Psych Exam: Appropriate Responses Assessment/Plan Assessment Summary: Anemia of CKD, Hypertension, End Stage Renal Disease Problem List: (1) Anemia in chronic kidney disease (CKD) (2) Open wound of abdomen (3) Chronic stasis dermatitis (4) End stage kidney disease Plan Now on Cefepime. Continue the wound care. ID is following. Has some more wounds on side of pelvis, possibly due to friction of the wheelchair. 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 buttock area. Also has debridement of abd. wound done. Now with wound Vac. 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 Jimenez to decide Added Cinacalcet 30 mg daily as it may help to decrease PTH to lowest possible limits, there are several case reports that Calciphylaxis also occur at slightly higher levels of PTH. Problem Qualifiers (1) Open wound of abdomen: Qualified Code: S31.109A - Open wound of abdomen, initial encounter Jessie Birmingham MD Jun 02, 2016 10:30
[2016-06-02] MEDS: COLLAGENASE OINT 30 GM TUBE EXT SCH (11:44)
[2016-06-02] MEDS: ASPIRIN EC 81 MG TABEC PO SCH (11:45)
[2016-06-02] MEDS: SODIUM CHLORIDE 0.9% FLUSH 5 ML FLUSH FLUSH SCH ×2 (11:45→19:45)
[2016-06-02] MEDS: CEFEPIME INJ 2,000 MG in SODIUM CHLORIDE 0.9% INJ 100 ML IV SCH (11:45)
[2016-06-02] MEDS: GABAPENTIN 100 MG CAP PO SCH ×2 (11:46→19:44)
[2016-06-02] MEDS: DOCUSATE SODIUM 50 MG/SENNA 8.6 MG TAB PO SCH ×2 (11:46→19:44)
[2016-06-02] MEDS: SEVELAMER CARBONATE 800 MG TAB PO SCH ×3 (11:46→17:37)
[2016-06-02] MEDS: CINACALCET HYDROCHLORIDE 30 MG TAB PO SCH (11:46)
[2016-06-02] MEDS: FLUoxetine HCL 20 MG CAP PO SCH (11:47)
[2016-06-02 12:00] VITALS: BP 134/69; PULSE 74; RESP 27; TEMP 98.1; O2SAT 99
[2016-06-02] MEDS: CALCITRIOL 0.25 MCG CAP PO SCH (13:52)
[2016-06-02] MEDS: ACETAMINOPHEN/HYDROcodone 325 MG/5 MG TAB PO PRN (13:53)
[2016-06-02 16:00] VITALS: BP 150/65; PULSE 71; RESP 27; TEMP 100; O2SAT 92
--- NOTE | 2016-06-02 19:31 | HHI.PR ---
Subjective Remarks Patient states her pain is controlled. She declines to have me examine her wounds. The patient is happier that she is in the ICU. Because she now can have dialysis in her room. Objective Vitals Vital Signs Date Time Temp Pulse Resp B/P Pulse Ox O2 Delivery O2 Flow Rate FiO2 06/02/16 16:00 100.0 71 27 150/65 92 06/02/16 12:00 98.1 74 27 134/69 99 06/02/16 08:00 98.5 70 25 130/65 98 06/02/16 08:00 70 06/02/16 04:00 98.6 69 22 147/62 97 06/02/16 00:00 98.6 74 22 148/66 97 06/02/16 00:00 71 06/01/16 20:00 98.6 74 22 136/57 97 I/O 06/01/16 06/01/16 06/01/16 06/02/16 06/02/16 06/02/16 07:00 15:00 23:00 07:00 15:00 23:00 Intake Total 330 ml 250 ml 400 ml Output Total 3300 ml Balance 330 ml 250 ml -2900 ml Intake Oral 330 ml 250 ml 400 ml Output Urine Total 300 ml Hemodialysis 3000 ml # Voids 2 1 1 # Bowel Movements 1 1 Result Diagram: 05/30/16 0625 06/02/16 0407 Objective Remarks GENERAL: Pleasant, morbidly obese middle-age female patient. SKIN: Warm and dry. HEAD: Normocephalic. EYES: No scleral icterus. No injection or drainage. NECK: Supple, trachea midline. No JVD or lymphadenopathy. CARDIOVASCULAR: Regular rate and rhythm without murmurs, gallops, or rubs. RESPIRATORY: Breath sounds equal bilaterally. No accessory muscle use. GASTROINTESTINAL: Obese over hanging pannus. Wound VAC in place over lower abdomen. Abdomen soft, non-tender, nondistended. EXTREMITIES: Chronic pedal edema. NEUROLOGICAL: Awake, alert, and oriented x 3. Non-focal. 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 Cultures growing pseudomonas. - continue abx per ID - wound care per surgery. S/p debridement 3/19. -Right hip wound is worsening as per photos and discussion with wound care nurse. Plastic surgery was re-consulted, pending. Patient will need biopsy to confirm calchiphylaxis per nephrology - sodium Thiosulfate with HD - physical therapy. Add occupational therapy. - incentive spirometry. Morbid Obesity BMI 65. The pt says she had a lap band in the past. - the pt agrees with lifestyle modifications. DM II A1c 6.8%. Glucose well controlled 05/28. - cont Levemir to 30 units daily, 20 units HS. Adjust as needed. - insulin sliding scale. ESRD On Hemodialysis //Fri. - dialysis per nephrology. Anemia of chronic kidney disease. Hemoglobin stable at 8. Minimize blood draws. Chronic low back pain and chronic pain syndrome Exacerbated by wounds. - pain control, with a bowel regimen. DVT prophylaxis with Heparin every 12 hours. Kylee Han MD Jun 02, 2016 19:31
[2016-06-02] MEDS: ATORVASTATIN 80 MG TAB PO SCH (19:44)
[2016-06-02 20:00] VITALS: BP 141/64; PULSE 78; RESP 22; TEMP 98.7; O2SAT 95
[2016-06-03] VITALS: BP 153/68; PULSE 72; RESP 20; TEMP 98.9; O2SAT 93
[2016-06-03 04:00] VITALS: BP 170/66; PULSE 71; RESP 20; TEMP 98.8; O2SAT 91
[2016-06-03] MEDS: CHLORHEXIDINE GLUCONATE 2 % 1 PACK (2 CLOTHS)(taper/protocol) TOP SCH (04:00)
[2016-06-03] MEDS: LEVOTHYROXINE SODIUM 150 MCG TAB PO SCH (06:48)
[2016-06-03] MEDS: HEPARIN SODIUM - SQ 10,000 UNITS/ML VIAL SQ SCH ×2 (06:48→18:26)
[2016-06-03] MEDS: HIGH DOSE INSULIN NOVOLOG SUPPLEMENTAL SCALE SQ SCH ×4 (06:50→20:44)
[2016-06-03] MEDS: ACETAMINOPHEN/HYDROcodone 325 MG/10 MG TAB PO PRN ×3 (07:16→23:29)
[2016-06-03 08:00] VITALS: BP 166/65; PULSE 77; RESP 20; TEMP 98.4; O2SAT 95
[2016-06-03] MEDS: ACETAMINOPHEN/HYDROcodone 325 MG/5 MG TAB PO PRN ×2 (08:51→20:45)
[2016-06-03] MEDS: SODIUM HYPOCHLORITE 0.125% 500 ML BTL OTHER SCH (09:00)
[2016-06-03] MEDS: COLLAGENASE OINT 30 GM TUBE EXT SCH (09:00)
[2016-06-03] MEDS: CINACALCET HYDROCHLORIDE 30 MG TAB PO SCH (09:00)
[2016-06-03] MEDS: CEFEPIME INJ 2,000 MG in SODIUM CHLORIDE 0.9% INJ 100 ML IV SCH (09:12)
[2016-06-03] MEDS: GABAPENTIN 100 MG CAP PO SCH ×2 (09:13→20:43)
[2016-06-03] MEDS: SEVELAMER CARBONATE 800 MG TAB PO SCH ×3 (09:13→18:00)
[2016-06-03] MEDS: CALCITRIOL 0.25 MCG CAP PO SCH (09:13)
[2016-06-03] MEDS: INSULIN DETEMIR 100 UNITS/ML VIAL SQ SCH ×2 (09:13→20:44)
[2016-06-03] MEDS: DOCUSATE SODIUM 50 MG/SENNA 8.6 MG TAB PO SCH ×2 (09:13→20:43)
[2016-06-03] MEDS: FLUoxetine HCL 20 MG CAP PO SCH (09:13)
[2016-06-03] MEDS: SODIUM CHLORIDE 0.9% FLUSH 5 ML FLUSH FLUSH SCH ×2 (09:14→20:43)
[2016-06-03] MEDS: ASPIRIN EC 81 MG TABEC PO SCH (09:30)
--- NOTE | 2016-06-03 11:42 | HHI.NPPN ---
Subjective History of Present Illness 55-year-old female known to me from before with past medical history of diabetes mellitus, history of morbid obesity, end-stage renal disease on hemodialysis three times per week, history of chronic anemia, congestive heart failure, spinal stenosis, chronic back pain, hypothyroidism who came to the hospital with complaint of worsening lower abdominal wound. I was called to see the patient for the management of dialysis. The patient has been on hemodialysis Friday, and Friday. Additional Remarks Patient is alert, [place] [facility] [place], pain in flank is better. Review of Systems General Constitutional: Fatigue Respiratory Lungs: SOB Cardiovascular Cardiac: GRIFFIN Objective Data Data 06/02/16 06/03/16 19:00 07:00 Intake Total 400 ml 240 ml Output Total 3300 ml 0 ml Balance -2900 ml 240 ml Intake Oral 400 ml 240 ml Output Urine Total 300 ml 0 ml Hemodialysis 3000 ml # Voids 1 # Bowel Movements 0 Vital Signs Date Time Temp Pulse Resp B/P Pulse Ox O2 Delivery O2 Flow Rate FiO2 06/03/16 09:51 16 06/03/16 08:00 98.4 77 20 166/65 95 06/03/16 08:00 77 06/03/16 04:00 98.8 71 20 170/66 91 06/03/16 00:00 98.9 72 20 153/68 93 06/02/16 20:00 78 06/02/16 20:00 98.7 78 22 141/64 95 06/02/16 16:00 100.0 71 27 150/65 92 06/02/16 12:00 98.1 74 27 134/69 99 -: 05/30/16 0625 06/02/16 0407 Physical Exam General Appearance: No Acute Distress, Comfortable Eyes Eye Exam: Pupils Equal Throat Throat Exam: Oral Mucosa [place] & Moist Neck Neck Exam: Neck Supple Pulmonary Resp Exam: Breath Sounds Equal, Crackles, Decreased Bases, Diminished Breath Sounds Gastrointestinal/Abdomen GI Exam: Soft, Non-Tender, Distended Extremeties Extremities Exam: Moderate Edema, Pitting Edema, Dependent Edema Neurologic Neuro Exam: Alert, Awake, Oriented Psychiatric Psych Exam: Appropriate Responses Assessment/Plan Assessment Summary: Anemia of CKD, Hypertension, End Stage Renal Disease Problem List: (1) Anemia in chronic kidney disease (CKD) (2) Open wound of abdomen (3) Chronic stasis dermatitis (4) End stage kidney disease Plan Now on Cefepime. Continue the wound care. ID is following. 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 Seen by plastic surgery and had debridement of Rt. buttock area. Also has debridement of abd. wound done. Now with wound Vac. Will get skin Biopsy and started on Na. Thiosulfate treatment and Sensipar. I will also increase Renvela. HD done on Friday. Patient has pain in transferring to Dialysis. I spoke to HD, will try to get her down via bigger elevated if possible. Problem Qualifiers (1) Open wound of abdomen: Qualified Code: S31.109A - Open wound of abdomen, initial encounter Valentin Jimenez MD Jun 03, 2016 11:42
[2016-06-03 12:00] VITALS: BP 152/55; PULSE 72; RESP 16; TEMP 98.5; O2SAT 99
--- NOTE | 2016-06-03 13:47 | HHI.PR ---
Subjective Remarks Follow-up for abdominal wound. Patient has no complaints. Spoke to Dr. Jimenez is requesting a skin biopsy. Patient denies any pain she stated that wound is healing well. She remains afebrile in no acute events overnight. Objective Vitals Vital Signs Date Time Temp Pulse Resp B/P Pulse Ox O2 Delivery O2 Flow Rate FiO2 06/03/16 09:51 16 06/03/16 08:00 98.4 77 20 166/65 95 06/03/16 08:00 77 06/03/16 04:00 98.8 71 20 170/66 91 06/03/16 00:00 98.9 72 20 153/68 93 06/02/16 20:00 78 06/02/16 20:00 98.7 78 22 141/64 95 06/02/16 16:00 100.0 71 27 150/65 92 I/O 06/02/16 06/02/16 06/02/16 06/03/16 06/03/16 06/03/16 07:00 15:00 23:00 07:00 15:00 23:00 Intake Total 250 ml 400 ml 240 ml 0 ml Output Total 3300 ml 0 ml Balance 250 ml -2900 ml 240 ml 0 ml Intake Oral 250 ml 400 ml 240 ml 0 ml Output Urine Total 300 ml 0 ml Hemodialysis 3000 ml # Voids 1 1 # Bowel Movements 1 0 Result Diagram: 05/30/16 0625 06/02/16 0407 Objective Remarks GENERAL: Pleasant, morbidly obese middle-age female patient. CARDIOVASCULAR: Regular rate and rhythm without murmurs, gallops, or rubs. RESPIRATORY: Breath sounds equal bilaterally. No accessory muscle use. GASTROINTESTINAL: Obese over hanging pannus. Wound VAC in place over lower abdomen. Abdomen soft, non-tender, nondistended. EXTREMITIES: Chronic pedal edema. Brownish discoloration with an odor of B/L lower extremity. Procedures I&D Debridement Medications and IVs Current Medications Sodium Chloride 250 ml @ 15 mls/hr ONCE ONCE IV ; Start 05/14/16 at 13:15; Stop 05/15/16 at 05:54; Status DC Piperacillin Sod/ Tazobactam Sod 50 ml @ 100 mls/hr ONCE ONCE IV Last administered on 05/14/16t 13:56; Start 05/14/16 at 13:45; Stop 05/14/16 at 14:14; Status DC Vancomycin HCl 1000 mg/Sodium Chloride 250 ml @ 250 mls/hr ONCE ONCE IV ; Start 05/14/16 at 13:45; Stop 05/14/16 at 13:51; Status DC Vancomycin HCl/ Sodium Chloride (Vancomycin Inj/ NS 500 ml Inj) 517.5 ml @ 258.75 mls/ hr ONCE ONCE IV ; Start 05/14/16 at 14:00; Stop 05/14/16 at 14:42; Status DC Amlodipine Besylate (Norvasc) 5 mg BID PO Last administered on 05/26/16 21:07 ; Start 05/14/16 at 21:00; Status Hold Aspirin (Ecotrin Ec) 81 mg DAILY PO Last administered on 06/03/16 09:30; Start 05/15/16 at 09:00 Atenolol (Tenormin) 50 mg BID PO Last administered on 05/26/16 21:07; Start at 21:00; Status Hold Atorvastatin Calcium (Lipitor) 80 mg HS PO Last administered on 06/02/16 19:44 ; Start 05/14/16 at 21:00 Lisinopril (Prinivil) 20 mg BID PO Last administered on 05/26/16 21:15; Start 05/14/16 at 21:00; Status Hold Calcitriol (Rocaltrol) 0.5 mcg DAILY PO Last administered on 06/03/16 09:13; Start 05/15/16 at 09:00 Fluoxetine HCl (PROzac) 20 mg DAILY PO Last administered on 06/03/16 09:13; Start 05/15/16 at 09:00 Gabapentin (Neurontin) 100 mg BID PO Last administered on 06/03/16 09:13; Start 05/14/16 at 21:00 Acetaminophen/ Hydrocodone Bitart ([place] 10-325 Mg) 1 tab Q6H PRN PO PAIN Last administered on 05/19/16 15:00; Start 05/14/16 at 14:15; Stop 05/19/16 at 16:26 ; Status DC Levothyroxine Sodium (Synthroid) 300 mcg DAILY@0600 PO Last administered on 06:48; Start 05/15/16 at 06:00 Meclizine HCl (Antivert) 25 mg TID PRN PO VERTIGO; Start 05/14/16 at 14:15 Sevelamer Carbonate (Renvela) 800 mg TID PO Last administered on 06/03/16 09: 13; Start 05/14/16 at 18:00; Stop 06/03/16 at 11:42; Status DC Tizanidine HCl (Zanaflex) 4 mg TID PRN PO MUSCLE SPASM Last administered on 21:15; Start 05/14/16 at 14:15 IV Flush (NS Flush) 2 ml UNSCH PRN FLUSH FLUSH AFTER USING IV ACCESS Last administered on 05/28/16 18:09; Start 05/14/16 at 14:30 IV Flush (NS Flush) 2 ml BID FLUSH Last administered on 06/03/16 09:14; Start 05/14/16 at 21:00 Acetaminophen (Tylenol) 650 mg Q4H PRN PO PAIN SCALE 1 TO 5 Last administered on 06/02/16 02:49; Start 05/14/16 at 14:30 Ondansetron HCl (Zofran Inj) 4 mg Q6H PRN IVP NAUSEA OR VOMITING; Start at 14:30 Metoclopramide HCl (Reglan Inj) 5 mg Q6H PRN IV PUSH NAUSEA OR VOMITING; Start 05/14/16 at 14:30 Bisacodyl (Dulcolax Supp) 10 mg DAILY PRN WI CONSTIPATION; Start 05/14/16 at 14: 30 Docusate Sodium (Colace) 100 mg Q12HR PO Last administered on 05/26/16 09:00; Start 05/14/16 at 21:00; Stop 05/26/16 at 12:34; Status DC Heparin Sodium (Porcine) (Heparin Inj) 5,000 units Q12H SQ Last administered on 06/03/16 06:48; Start 05/14/16 at 16:00 Naloxone HCl 0.4 mg 0.4 mg UNSCH PRN IV SEE LABEL COMMENTS; Start 05/14/16 at 14 :30 Piperacillin Sod/ Tazobactam Sod 50 ml @ 100 mls/hr Q8H IV Last administered on 05/16/16 12:12; Start 05/14/16 at 22:00; Stop 05/16/16 at 23:48; Status DC Pharmacy Profile Note 0 ml @ 0 mls/hr UNSCH OTHER ; Start 05/14/16 at 14:45; Status Cancel Vancomycin HCl 2000 mg/Sodium Chloride 520 ml @ 258.75 mls/ hr ONCE ONCE IV Last administered on 05/14/16 15:05; Start 05/14/16 at 15:00; Stop 05/14/16 at 17: 00; Status DC Sodium Chloride (NS 1000 ml Inj) 1,000 ml @ 0 mls/hr Q0M PRN IV For Prime & Rinse Back Last administered on 06/02/16 08:14; Start 05/14/16 at 14:54 Heparin Sodium (Porcine) 8000 units 8,000 units UNSCH PRN IVF WITH DIALYSIS; Start 05/14/16 at 15:00 Sodium Chloride 1,000 ml @ 200 mls/hr Q5H PRN IV WITH DIALYSIS Last administered on 05/28/16 08:38; Start 05/14/16 at 14:54 Sodium Chloride (NS 1000 ml Inj) 1,000 ml @ 0 mls/hr Q0M PRN IV WITH DIALYSIS Last administered on 05/30/16 09:36; Start 05/14/16 at 14:54 Mannitol (Mannitol Inj) 12.5 gm UNSCH PRN IV WITH DIALYSIS; Start 05/14/16 at 15 :00 Albumin Human (Albumin 25% Inj) 25 gm UNSCH PRN IV WITH DIALYSIS; Start at 15:00 IV Flush (NS Flush) 5 ml UNSCH PRN IVF WITH DIALYSIS; Start 05/14/16 at 15:00 Heparin Sodium (Porcine) (Heparin Inj) UNSCH PRN .XX WITH DIALYSIS Last administered on 06/02/16 08:14; Start 05/14/16 at 15:00 Gentamicin Sulfate (Gentamicin (Dialysis) Inj) 20 mg UNSCH PRN IV WITH DIALYSIS Last administered on 06/02/16 08:14; Start 05/14/16 at 15:00 Ondansetron HCl (Zofran Inj) 4 mg UNSCH PRN IV WITH DIALYSIS; Start 05/14/16 at 15:00 Acetaminophen (Tylenol) 650 mg UNSCH PRN PO for headach, pain, temp > 101F Last administered on 05/16/16 09:36; Start 05/14/16 at 15:00 Diphenhydramine HCl (Benadryl) 25 mg UNSCH PRN PO for hives/itching/anaphylaxis ; Start 05/14/16 at 15:00 Nitroglycerin (Nitrostat Sl) 0.4 mg UNSCH PRN SL CHEST PAIN; Start 05/14/16 at 15:00 Clonidine (Catapres) 0.1 mg UNSCH PRN PO for BP > 180/100 X 2 readings; Start 05/14/16 at 15:00 Epoetin Porter (Epogen Inj) 10,000 units UNSCH PRN IV WITH DIALYSIS Last administered on 06/02/16 08:14; Start 05/14/16 at 15:00 Gelatin (Gelfoam 12 Mm/7 Mm Top) 1 foam UNSCH PRN TOP SEE LABEL COMMENTS; Start 05/14/16 at 15:00 Insulin Human Regular (NovoLIN R SUPPLEMENTAL SCALE) 1 ACHS SLIDING SCALE SQ Last administered on 05/18/16 17:26; Start 05/14/16 at 21:00; Stop 05/18/16 at 18:24; Status DC Dextrose (D50w (Vial) Inj) 25 ml UNSCH PRN IV PUSH HYPOGLYCEMIA - SEE COMMENTS ; Start 05/14/16 at 18:45 Glucagon (Glucagon Inj) 1 mg UNSCH PRN OTHER HYPOGLYCEMIA-SEE COMMENTS; Start 05/14/16 at 18:45 Sodium Hypochlorite (Dakin'S 0.125% Soln) 120 ml DAILY OTHER Last administered on 05/31/16 08:18; Start 05/17/16 at 15:00 Collagenase (Santyl Oint) 1 applic DAILY EXT Last administered on 06/03/16 09: 00; Start 05/17/16 at 15:00 Furosemide (Lasix Inj) 40 mg UNSCH X1 IV PUSH ; Start 05/16/16 at 17:30; Stop at 03:00; Status DC Diatrizoate Meglum/ Diatrizoate Sod ( Gastroview Liq) 18 ml ONCE ONCE PO ; Start 05/16/16 at 18:45; Stop 05/16/16 at 19:23; Status DC Diatrizoate Meglum/ Diatrizoate Sod ( Gastroraulito Liamada) 18 ml ONCE ONCE PO ; Start 05/17/16 at 08:00; Stop 05/17/16 at 08:01; Status DC Lorazepam 1 mg 1 mg ONCE ONCE IV PUSH Last administered on 05/16/16 23:51; Start 05/16/16 at 23:00; Stop 05/16/16 at 23:03; Status DC Piperacillin Sod/ Tazobactam Sod (Zosyn 2.25 Gm Premix) 50 ml @ 100 mls/hr Q8H IV Last administered on 05/22/16 09:38; Start 05/17/16 at 01:00; Stop at 12:27; Status DC Bupivacaine HCl (Marcaine Pf 0.5% Inj) 30 ml STK-MED ONCE .ROUTE ; Start at 15:51; Stop 05/17/16 at 15:52; Status DC Bupivacaine HCl/ Epinephrine Bitart (Sensorcaine-Epi 0.5% 50 ml Inj) 50 ml STK- MED ONCE .ROUTE Last administered on 05/17/16 17:57; Start 05/17/16 at 15:52; Stop 05/17/16 at 15:53; Status DC Bacitracin (Baciguent Oint) 15 applic STK-MED ONCE .ROUTE ; Start 05/17/16 at 15 :52; Stop 05/17/16 at 15:53; Status DC Lidocaine/ Epinephrine (Xylocaine-Epi 1%-1:100,000 Inj) 50 ml STK-MED ONCE .ROUTE ; Start 05/17/16 at 15:53; Stop 05/17/16 at 15:54; Status DC Epinephrine HCl (Adrenalin (1:1000) Inj) 2 mg STK-MED ONCE .ROUTE Last administered on 05/17/16 17:57; Start 05/17/16 at 16:58; Stop 05/17/16 at 16:59 ; Status DC Lidocaine/ Epinephrine (Xylocaine-Epi 1%-1:100,000 Inj) 50 ml STK-MED ONCE .ROUTE ; Start 05/17/16 at 16:58; Stop 05/17/16 at 16:59; Status DC Miscellaneous Information ALL NURSING DEPARTME... UNSCH PRN XX SEE LABEL COMMENTS; Start 05/17/16 at 19:30; Stop 05/18/16 at 19:29; Status DC Fentanyl Citrate (fentaNYL INJ) 250 mcg STK-MED ONCE .ROUTE ; Start 05/17/16 at 19:21; Stop 05/17/16 at 19:22; Status DC Morphine Sulfate (Morphine Inj) 4 mg STK-MED ONCE .ROUTE ; Start 05/17/16 at 19: 55; Stop 05/17/16 at 19:56; Status DC Insulin Detemir (Levemir Inj) 30 units Q12H SQ Last administered on 05/22/16 18:17; Start 05/18/16 at 18:00; Stop 05/23/16 at 11:55; Status DC Insulin Aspart (NovoLOG SUPPLEMENTAL SCALE) 1 ACHS SLIDING SCALE SQ Last administered on 06/03/16 11:00; Start 05/18/16 at 21:00 Acetaminophen/ Hydrocodone Bitart ([place] 10-325 Mg) 1 tab Q4HR PRN PO PAIN 1- 10 Last administered on 06/03/16 07:16; Start 05/19/16 at 20:00 Propofol (Diprivan 200 Mg/20 ml Inj) 200 mg STK-MED ONCE IV ; Start 05/17/16 at 12:00; Stop 05/20/16 at 11:33; Status DC Ondansetron HCl 4 mg 4 mg STK-MED ONCE IV PUSH ; Start 05/17/16 at 12:00; Stop 05/20/16 at 11:33; Status DC Parenteral Electrolytes (Normosol R Inj) 1,000 ml @ As Directed STK-MED ONCE IV ; Start 05/17/16 at 12:00; Stop 05/20/16 at 11:33; Status DC Lactulose 30 ml 30 ml ONCE ONCE PO ; Start 05/20/16 at 18:00; Stop 05/20/16 at 18:01; Status DC Cefepime HCl/ Sodium Chloride (Maxipime Inj/NS Inj) 100 ml @ 200 mls/hr DAILY IV Last administered on 06/03/16 09:12; Start 05/22/16 at 13:00 Acetaminophen/ Hydrocodone Bitart ([place] 5-325 Mg) 1 tab Q4H PRN PO Breakthrough pain/ dressings Last administered on 06/03/16 08:51; Start at 12:00 Insulin Detemir (Levemir Inj) 30 units DAILY SQ Last administered on 06/03/16 09:13; Start 05/24/16 at 09:00 Insulin Detemir (Levemir Inj) 20 units HS SQ Last administered on 06/02/16 21: 00; Start 05/23/16 at 21:00 Silver Nitrate/ Potassium Nitrate (Silver Nitrate Applicators) 1 appl ONCE ONCE TOPICAL ; Start 05/24/16 at 13:15; Stop 05/24/16 at 13:16; Status DC Non-Formulary Medication LIDOCAINE 2% WITH EPINEPHRINE 1:200,... ONCE ONCE OTHER ; Start 05/24/16 at 18:30; Stop 05/24/16 at 18:31; Status DC Sodium Bicarbonate (Sodium Bicarbonate 8.4% Inj) 50 meq ONCE ONCE IV PUSH ; Start 05/24/16 at 18:30; Stop 05/24/16 at 18:32; Status DC Acetaminophen/ Hydrocodone Bitart ([place] 10-325 Mg) 1 tab ONCE ONCE PO Last administered on 05/25/16 12:46; Start 05/25/16 at 10:30; Stop 05/25/16 at 10:37 ; Status DC Midazolam HCl (Versed Inj) 2 mg STK-MED ONCE .ROUTE ; Start 05/26/16 at 07:31; Stop 05/26/16 at 07:32; Status DC Fentanyl Citrate (fentaNYL INJ) 250 mcg STK-MED ONCE .ROUTE ; Start 05/26/16 at 07:31; Stop 05/26/16 at 07:32; Status DC Acetaminophen (Ofirmev Inj) 1,000 mg STK-MED ONCE IV ; Start 05/26/16 at 07:44; Stop 05/26/16 at 07:49; Status DC Lidocaine/ Epinephrine (Xylocaine-Epi 1%-1:100,000 Inj) 30 ml STK-MED ONCE INFIL Last administered on 05/26/16 08:14; Start 05/26/16 at 08:14; Stop 05/26 at 08:23; Status DC Morphine Sulfate (*morphine INJ PERIprocedure ONLY) 8 mg STK-MED ONCE .ROUTE Last administered on 05/26/16 09:12; Start 05/26/16 at 09:11; Stop 05/26/16 at 09:12; Status DC Miscellaneous Information ALL NURSING DEPARTME... UNSCH PRN XX SEE LABEL COMMENTS; Start 05/26/16 at 09:30; Stop 05/27/16 at 09:29; Status DC Senna/Docusate Sodium (Luciana-Colace) 1 tab BID PO Last administered on 09:13; Start 05/26/16 at 21:00 Propofol (Diprivan 200 Mg/20 ml Inj) 200 mg STK-MED ONCE IV ; Start 05/26/16 at 12:00; Stop 05/27/16 at 10:52; Status DC Ondansetron HCl 4 mg 4 mg STK-MED ONCE IV PUSH ; Start 05/26/16 at 12:00; Stop 05/27/16 at 10:52; Status DC Lactated Ringer's (Lr 1000 ml Inj) 1,000 ml @ As Directed STK-MED ONCE IV ; Start 05/26/16 at 12:00; Stop 05/27/16 at 10:52; Status DC Ephedrine Sulfate (ePHEDrine/NS 25 MG/5 ML SYR) 25 mg STK-MED ONCE IV ; Start at 12:00; Stop 05/27/16 at 10:52; Status DC Neostigmine Methylsulfate 3 mg 3 mg STK-MED ONCE IV ; Start 05/26/16 at 12:00; Stop 05/27/16 at 10:52; Status DC Sodium Chloride 1,000 ml @ 50 mls/hr Q20H IV Last administered on 05/27/16 12 :53; Start 05/27/16 at 12:45; Stop 05/27/16 at 17:44; Status DC Iron Sucrose 50 mg/Sodium Chloride 102.5 ml @ 105 mls/hr ONCE ONCE IV ; Start 05/28/16 at 12:00; Stop 05/28/16 at 12:58; Status DC Magnesium Sulfate/ Dextrose (Magnesium Sulfate 1 Gm Premix) 100 ml @ 100 mls/ hr ONCE ONCE IV Last administered on 05/28/16 18:09; Start 05/28/16 at 18:00 ; Stop 05/28/16 at 18:59; Status DC Iron Sucrose 50 mg 50 mg ONCE ONCE IV PUSH Last administered on 05/30/16 12: 25; Start 05/30/16 at 12:00; Stop 05/30/16 at 12:01; Status DC Sodium Thiosulfate/ Sterile Water (Sodium Thiosulfate Inj/ Sterile Water For Inj ) 150 ml @ 150 mls/hr WITH DIALYSIS PRN IV calciphylaxis Last administered on 06/02/16 08:51; Start 06/01/16 at 17:30 Cinacalcet (Sensipar) 30 mg DAILY PO Last administered on 06/02/16 11:46; Start 06/02/16 at 09:00 Miscellaneous Information Patient in critical care unit? Ass... [id number] Last administered on 06/02/16 00:15; Start 06/02/16 at 00:15 Chlorhexidine Gluconate (Chlorhexidine 2% Cloth) 3 pack DAILY@04 TOP Last administered on 06/02/16 00:22; Start 06/02/16 at 04:00; Stop 06/06/16 at 04:01 Chlorhexidine Gluconate (Chlorhexidine 2% Cloth) 3 pack UNSCH PRN TOP HYGIENIC CARE; Start 06/02/16 at 00:15; Stop 06/07/16 at 00:02 Sevelamer Carbonate (Renvela) 1,600 mg TID PO Last administered on 06/03/16 12 :27; Start 06/03/16 at 13:00 A/P Assessment and Plan Sepsis due to infected wound on abdomen, cellulitis, also has wound and ulcerations on right hip -- per nephrology, 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 Feed Adviser is asking for skin biopsy will speak to plastics. -Cultures grew Pseudomonas. Patient completed treatment per infectious disease. - wound care per surgery. S/p debridement 05/26. -Right hip wound is worsening as per photos. Plastic surgery was re-consulted, pending. Patient will need biopsy to confirm calchiphylaxis per nephrology - sodium Thiosulfate with HD Morbid Obesity BMI 56. -s/p lap band. - the pt agrees with lifestyle modifications. DM II -A1c 6.8%. Glucose well controlled 05/28. - cont Levemir to 30 units daily, 20 units HS. Adjust as needed. - insulin sliding scale. ESRD -On Hemodialysis //Fri. - dialysis per nephrology. Anemia of chronic disease. -Due to CKD. -Continue to monitor. Chronic low back pain and chronic pain syndrome -Controlled. -Exacerbated by wounds. - pain control, with a bowel regimen. DVT prophylaxis with Heparin every 12 hours. Discharge Planning Right hip wound worsen and plastic surgeon reconsult. Feed Adviser asking for a biopsy of the skin so will speak with plastics in regards to this. Suzi Denton MD Jun 03, 2016 13:46
[2016-06-03 16:00] VITALS: BP 152/87; PULSE 73; RESP 20; TEMP 98.9; O2SAT 95
[2016-06-03 20:00] VITALS: BP 124/60; PULSE 77; RESP 24; TEMP 98.2; O2SAT 96
[2016-06-03] MEDS: ATORVASTATIN 80 MG TAB PO SCH (20:43)
[2016-06-03] MEDS ORDERED: MORPHINE SULFATE 4 MG/ML INJ IV PUSH ONE (22:30)
[2016-06-04] MEDS: HYDROmorphone HCL PF 1 MG/ML VIAL IV PUSH PRN ×5 (00:01→22:15)
[2016-06-04] MEDS: CHLORHEXIDINE GLUCONATE 2 % 1 PACK (2 CLOTHS)(taper/protocol) TOP SCH (04:00)
[2016-06-04 05:10] LABS: HEMATOCRIT 24.2 % (35.0-46.0); MEAN CELL VOLUME 78.7 FL (80.0-100.0); MEAN CORPUSCULAR HEMOGLOBIN 24.1 PG (27.0-34.0); MEAN CORPUSCULAR HGB CONC 30.6 % (32.0-36.0); PLATELET COUNT 347 TH/MM3 (150-450); RED BLOOD COUNT 3.08 MIL/MM3 (4.00-5.30); RED CELL DISTRIBUTION WIDTH 20.8 % (11.6-17.2); WHITE BLOOD COUNT 14.3 TH/MM3 (4.0-11.0)
[2016-06-04 05:15] LABS: REVIEW FLAG FINAL
[2016-06-04] MEDS: LEVOTHYROXINE SODIUM 150 MCG TAB PO SCH (05:52)
[2016-06-04] MEDS: HEPARIN SODIUM - SQ 10,000 UNITS/ML VIAL SQ SCH ×2 (05:52→17:46)
[2016-06-04 05:56] LABS: BICARBONATE 27.7 MEQ/L (21.0-32.0); POTASSIUM 4.1 MEQ/L (3.5-5.1)
[2016-06-04] MEDS: HIGH DOSE INSULIN NOVOLOG SUPPLEMENTAL SCALE SQ SCH ×4 (06:09→22:09)
[2016-06-04 08:00] VITALS: BP 141/61; PULSE 75; RESP 18; TEMP 97.5; O2SAT 95
[2016-06-04] MEDS: DOCUSATE SODIUM 50 MG/SENNA 8.6 MG TAB PO SCH ×2 (08:02→22:08)
[2016-06-04] MEDS: ACETAMINOPHEN/HYDROcodone 325 MG/5 MG TAB PO PRN ×2 (08:02→12:22)
[2016-06-04] MEDS: ASPIRIN EC 81 MG TABEC PO SCH (08:03)
[2016-06-04] MEDS: FLUoxetine HCL 20 MG CAP PO SCH (08:03)
[2016-06-04] MEDS: SEVELAMER CARBONATE 800 MG TAB PO SCH ×3 (08:03→17:45)
[2016-06-04] MEDS: GABAPENTIN 100 MG CAP PO SCH ×2 (08:03→22:08)
[2016-06-04] MEDS: CALCITRIOL 0.25 MCG CAP PO SCH (08:04)
[2016-06-04] MEDS: CINACALCET HYDROCHLORIDE 30 MG TAB PO SCH (08:04)
[2016-06-04] MEDS: INSULIN DETEMIR 100 UNITS/ML VIAL SQ SCH ×2 (08:08→22:09)
[2016-06-04] MEDS: SODIUM CHLORIDE 0.9% FLUSH 5 ML FLUSH FLUSH SCH ×2 (08:20→21:00)
[2016-06-04] MEDS: COLLAGENASE OINT 30 GM TUBE EXT SCH (08:22)
[2016-06-04] MEDS: SODIUM HYPOCHLORITE 0.125% 500 ML BTL OTHER SCH (09:00)
[2016-06-04] MEDS: CEFEPIME INJ 2,000 MG in SODIUM CHLORIDE 0.9% INJ 100 ML IV SCH (10:07)
[2016-06-04 12:00] VITALS: BP 159/70; PULSE 71; RESP 16; TEMP 97.4; O2SAT 95
--- NOTE | 2016-06-04 16:04 | HHI.NPPN ---
Subjective History of Present Illness 55-year-old female known to me from before with past medical history of diabetes mellitus, history of morbid obesity, end-stage renal disease on hemodialysis three times per week, history of chronic anemia, congestive heart failure, spinal stenosis, chronic back pain, hypothyroidism who came to the hospital with complaint of worsening lower abdominal wound. I was called to see the patient for the management of dialysis. The patient has been on hemodialysis Friday, and Friday. Additional Remarks Patient is alert, seen on HD, not in distress. Review of Systems General Constitutional: Fatigue Respiratory Lungs: SOB Cardiovascular Cardiac: GRIFFIN Objective Data Data 06/03/16 06/04/16 19:00 07:00 Intake Total 576 ml 120 ml Output Total 0 ml Balance 576 ml 120 ml Intake Oral 480 ml 120 ml IV Total 96 ml Output Urine Total 0 ml # Voids 0 # Bowel Movements 0 Vital Signs Date Time Temp Pulse Resp B/P Pulse Ox O2 Delivery O2 Flow Rate FiO2 06/04/16 12:00 97.4 71 16 159/70 95 06/04/16 08:00 97.5 75 18 141/61 95 06/03/16 20:00 77 06/03/16 20:00 98.2 77 24 124/60 96 -: 06/04/16 0339 06/04/16 0339 Physical Exam General Appearance: No Acute Distress, Comfortable Eyes Eye Exam: Pupils Equal Throat Throat Exam: Oral Mucosa [place] & Moist Neck Neck Exam: Neck Supple Pulmonary Resp Exam: Breath Sounds Equal, Crackles, Decreased Bases, Diminished Breath Sounds Gastrointestinal/Abdomen GI Exam: Soft, Non-Tender, Distended Extremeties Extremities Exam: Moderate Edema, Pitting Edema, Dependent Edema Neurologic Neuro Exam: Alert, Awake, Oriented Psychiatric Psych Exam: Appropriate Responses Assessment/Plan Assessment Summary: Anemia of CKD, Hypertension, End Stage Renal Disease Problem List: (1) Anemia in chronic kidney disease (CKD) (2) Open wound of abdomen (3) Chronic stasis dermatitis (4) End stage kidney disease Plan Now on Cefepime. Continue the wound care. ID is following. 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 Seen by plastic surgery and had debridement of Rt. buttock area. Also has debridement of abd. wound done. Now with wound Vac. Will get skin Biopsy and started on Na. Thiosulfate treatment and Sensipar. On Renvela. HD now, I spoke to plastic surgery to get skin Biopsy, possibly on . Problem Qualifiers (1) Open wound of abdomen: Qualified Code: S31.109A - Open wound of abdomen, initial encounter Valentin Jimenez MD Jun 04, 2016 16:04
--- NOTE | 2016-06-04 16:39 | HHI.PR ---
Subjective Remarks Follow-up for abdominal wound. Patient stated that he she has abdominal pain and asking for change in the pain medication regimen. Otherwise she has no complaints. She remains afebrile. Objective Vitals Vital Signs Date Time Temp Pulse Resp B/P Pulse Ox O2 Delivery O2 Flow Rate FiO2 06/04/16 12:00 97.4 71 16 159/70 95 06/04/16 08:00 97.5 75 18 141/61 95 06/03/16 20:00 77 06/03/16 20:00 98.2 77 24 124/60 96 I/O 06/03/16 06/03/16 06/03/16 06/04/16 06/04/16 06/04/16 07:00 15:00 23:00 07:00 15:00 23:00 Intake Total 0 ml 576 ml 120 ml 820 ml Output Total 0 ml 0 ml 0 ml Balance 0 ml 576 ml 120 ml 820 ml Intake Oral 0 ml 480 ml 120 ml 720 ml IV Total 96 ml 100 ml Output Urine Total 0 ml 0 ml 0 ml Drainage Total 0 ml # Voids 0 # Bowel Movements 0 0 0 Result Diagram: 06/04/16 0339 06/04/16 0339 Objective Remarks GENERAL: Pleasant, morbidly obese middle-age female patient. CARDIOVASCULAR: Regular rate and rhythm without murmurs, gallops, or rubs. RESPIRATORY: Breath sounds equal bilaterally. No accessory muscle use. GASTROINTESTINAL: Obese over hanging pannus. Wound VAC in place over lower abdomen. Abdomen soft, non-tender, nondistended. EXTREMITIES: Chronic pedal edema. Brownish discoloration with an odor of B/L lower extremity. Procedures I&D Debridement Medications and IVs Last Impressions Chest X-Ray 05/27/16 0000 Signed Impressions: Service Date/Time: Friday, May 27, 2016 09:26 - CONCLUSION: 1. Borderline prominent but well compensated heart. 2. No acute cardiopulmonary process. 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 Supervisor Safety Deposit is asking for skin biopsy will speak to plastics. -Cultures grew Pseudomonas. Patient completed treatment per infectious disease. - wound care per surgery. S/p debridement 05/26. -Right hip wound is worsening as per photos. Patient will need biopsy to confirm calchiphylaxis. Dealt with Dr. Meyers in regards to skin biopsy and he asked to speak to Dr. Mchugh. I dealt with Dr. Scherer regards to this and asked him to call Dr. Meyers. per nephrology - sodium Thiosulfate with HD Morbid Obesity BMI 56. -s/p lap band. - the pt agrees with lifestyle modifications. DM II -A1c 6.8%. Glucose well controlled 05/28. - cont Levemir to 30 units daily, 20 units HS. Adjust as needed. - insulin sliding scale. ESRD -On Hemodialysis //Fri. - dialysis per nephrology. Anemia of chronic disease. -Due to CKD. -Continue to monitor. Chronic low back pain and chronic pain syndrome -Controlled. -Exacerbated by wounds. - pain control, with a bowel regimen. DVT prophylaxis with Heparin every 12 hours. Discharge Planning Right hip wound worsen and plastic surgeon reconsult. Supervisor Safety Deposit asking for a biopsy of the skin so will speak with plastics in regards to this. d/w Dr Meyers in regards to this. Suzi Denton MD Jun 04, 2016 16:39
[2016-06-04 18:00] VITALS: BP 141/68; PULSE 76; RESP 21; TEMP 98; O2SAT 100
[2016-06-04 20:00] VITALS: BP 151/69; PULSE 75; RESP 20; TEMP 98.8; O2SAT 96
[2016-06-04] MEDS: ACETAMINOPHEN/HYDROcodone 325 MG/10 MG TAB PO PRN (20:38)
[2016-06-04] MEDS: ATORVASTATIN 80 MG TAB PO SCH (22:08)
[2016-06-05] VITALS (7 sets, daily range): BP systolic 121–155; BP diastolic 51–68; PULSE 69–74; RESP 16–20; TEMP 96.3–97.5; O2SAT 94–98
[2016-06-05] MEDS: CHLORHEXIDINE GLUCONATE 2 % 1 PACK (2 CLOTHS)(taper/protocol) TOP SCH (04:00)
[2016-06-05] MEDS: LEVOTHYROXINE SODIUM 150 MCG TAB PO SCH (05:23)
[2016-06-05] MEDS: HEPARIN SODIUM - SQ 10,000 UNITS/ML VIAL SQ SCH ×2 (05:24→16:38)
[2016-06-05] MEDS: HIGH DOSE INSULIN NOVOLOG SUPPLEMENTAL SCALE SQ SCH ×4 (05:24→20:43)
[2016-06-05] MEDS: SODIUM HYPOCHLORITE 0.125% 500 ML BTL OTHER SCH (06:53)
[2016-06-05] MEDS: HYDROmorphone HCL PF 1 MG/ML VIAL IV PUSH PRN ×4 (07:02→20:36)
[2016-06-05] MEDS: CEFEPIME INJ 2,000 MG in SODIUM CHLORIDE 0.9% INJ 100 ML IV SCH (07:05)
[2016-06-05] MEDS: SEVELAMER CARBONATE 800 MG TAB PO SCH ×3 (07:08→16:39)
[2016-06-05] MEDS: FLUoxetine HCL 20 MG CAP PO SCH (07:08)
[2016-06-05] MEDS: GABAPENTIN 100 MG CAP PO SCH ×2 (07:09→20:38)
[2016-06-05] MEDS: CINACALCET HYDROCHLORIDE 30 MG TAB PO SCH (07:09)
[2016-06-05] MEDS: CALCITRIOL 0.25 MCG CAP PO SCH (07:09)
[2016-06-05] MEDS: ASPIRIN EC 81 MG TABEC PO SCH (07:09)
[2016-06-05] MEDS: INSULIN DETEMIR 100 UNITS/ML VIAL SQ SCH ×2 (07:12→20:39)
[2016-06-05] MEDS: DOCUSATE SODIUM 50 MG/SENNA 8.6 MG TAB PO SCH ×2 (07:12→20:38)
[2016-06-05] MEDS: COLLAGENASE OINT 30 GM TUBE EXT SCH ×2 (07:16→10:44)
[2016-06-05] MEDS: SODIUM CHLORIDE 0.9% FLUSH 5 ML FLUSH FLUSH SCH ×2 (07:16→20:38)
[2016-06-05] MEDS: ACETAMINOPHEN/HYDROcodone 325 MG/5 MG TAB PO PRN ×3 (09:05→18:15)
--- NOTE | 2016-06-05 09:40 | HHI.PR ---
Subjective Remarks f/u for abdominal wound and pain. patient stated pain is not control. IV Dilaudid only works for a couple of hours. she stated that pain is constant on the right side of abdominal wound. otherwise no other complaints. her mother is at the beside. Objective Vitals Vital Signs Date Time Temp Pulse Resp B/P Pulse Ox O2 Delivery O2 Flow Rate FiO2 06/05/16 08:00 97.2 71 17 155/68 96 06/05/16 04:00 96.3 69 20 148/65 97 06/05/16 00:00 97.4 72 20 124/60 94 06/04/16 23:26 18 06/04/16 22:09 20 06/04/16 20:00 98.8 75 20 151/69 96 06/04/16 18:00 98.0 76 21 141/68 100 06/04/16 12:00 97.4 71 16 159/70 95 I/O 06/04/16 06/04/16 06/04/16 06/05/16 06/05/16 06/05/16 07:00 15:00 23:00 07:00 15:00 23:00 Intake Total 120 ml 820 ml 240 ml 240 ml Output Total 0 ml 0 ml Balance 120 ml 820 ml 240 ml 240 ml Intake Oral 120 ml 720 ml 240 ml 240 ml IV Total 100 ml 0 ml 0 ml Output Urine Total 0 ml Drainage Total 0 ml 0 ml # Voids 0 0 0 # Bowel Movements 0 0 0 0 Result Diagram: 06/04/16 0339 06/04/16 0339 Objective Remarks GENERAL: Pleasant, morbidly obese middle-age female patient. CARDIOVASCULAR: Regular rate and rhythm without murmurs, gallops, or rubs. RESPIRATORY: Breath sounds equal bilaterally. No accessory muscle use. GASTROINTESTINAL: Obese over hanging pannus. Wound VAC in place over lower abdomen. Abdomen soft, non-tender, nondistended. EXTREMITIES: Chronic pedal edema. Brownish discoloration with an odor of B/L lower extremity. Procedures I&D Debridement Medications and IVs Current Medications Sodium Chloride 250 ml @ 15 mls/hr ONCE ONCE IV ; Start 05/14/16 at 13:15; Stop 05/15/16 at 05:54; Status DC Piperacillin Sod/ Tazobactam Sod 50 ml @ 100 mls/hr ONCE ONCE IV Last administered on 05/14/16 13:56; Start 05/14/16 at 13:45; Stop 05/14/16 at 14:14; Status DC Vancomycin HCl 1000 mg/Sodium Chloride 250 ml @ 250 mls/hr ONCE ONCE IV ; Start 05/14/16 at 13:45; Stop 05/14/16 at 13:51; Status DC Vancomycin HCl/ Sodium Chloride (Vancomycin Inj/ NS 500 ml Inj) 517.5 ml @ 258.75 mls/ hr ONCE ONCE IV ; Start 05/14/16 at 14:00; Stop 05/14/16 at 14:42; Status DC Amlodipine Besylate (Norvasc) 5 mg BID PO Last administered on 05/26/16 21:07 ; Start 05/14/16 at 21:00; Status Hold Aspirin (Ecotrin Ec) 81 mg DAILY PO Last administered on 06/05/16 07:09; Start 05/15/16 at 09:00 Atenolol (Tenormin) 50 mg BID PO Last administered on 05/26/16 21:07; Start at 21:00; Status Hold Atorvastatin Calcium (Lipitor) 80 mg HS PO Last administered on 06/04/16 22:08 ; Start 05/14/16 at 21:00 Lisinopril (Prinivil) 20 mg BID PO Last administered on 05/26/16 21:15; Start 05/14/16 at 21:00; Status Hold Calcitriol (Rocaltrol) 0.5 mcg DAILY PO Last administered on 06/05/16 07:09; Start 05/15/16 at 09:00 Fluoxetine HCl (PROzac) 20 mg DAILY PO Last administered on 06/05/16 07:08; Start 05/15/16 at 09:00 Gabapentin (Neurontin) 100 mg BID PO Last administered on 06/05/16 07:09; Start 05/14/16 at 21:00 Acetaminophen/ Hydrocodone Bitart ([place] 10-325 Mg) 1 tab Q6H PRN PO PAIN Last administered on 05/19/16 15:00; Start 05/14/16 at 14:15; Stop 05/19/16 at 16:26 ; Status DC Levothyroxine Sodium (Synthroid) 300 mcg DAILY@0600 PO Last administered on 05:23; Start 05/15/16 at 06:00 Meclizine HCl (Antivert) 25 mg TID PRN PO VERTIGO; Start 05/14/16 at 14:15 Sevelamer Carbonate (Renvela) 800 mg TID PO Last administered on 06/03/16 09: 13; Start 05/14/16 at 18:00; Stop 06/03/16 at 11:42; Status DC Tizanidine HCl (Zanaflex) 4 mg TID PRN PO MUSCLE SPASM Last administered on 07:09; Start 05/14/16 at 14:15 IV Flush (NS Flush) 2 ml UNSCH PRN FLUSH FLUSH AFTER USING IV ACCESS Last administered on 05/28/16 18:09; Start 05/14/16 at 14:30 IV Flush (NS Flush) 2 ml BID FLUSH Last administered on 06/05/16 07:16; Start 05/14/16 at 21:00 Acetaminophen (Tylenol) 650 mg Q4H PRN PO FEVER Last administered on 06/02/16 02:49; Start 05/14/16 at 14:30 Ondansetron HCl (Zofran Inj) 4 mg Q6H PRN IVP NAUSEA OR VOMITING; Start at 14:30 Metoclopramide HCl (Reglan Inj) 5 mg Q6H PRN IV PUSH NAUSEA OR VOMITING; Start 05/14/16 at 14:30 Bisacodyl (Dulcolax Supp) 10 mg DAILY PRN OK CONSTIPATION; Start 05/14/16 at 14: 30 Docusate Sodium (Colace) 100 mg Q12HR PO Last administered on 05/26/16 09:00; Start 05/14/16 at 21:00; Stop 05/26/16 at 12:34; Status DC Heparin Sodium (Porcine) (Heparin Inj) 5,000 units Q12H SQ Last administered on 06/05/16 05:24; Start 05/14/16 at 16:00 Naloxone HCl 0.4 mg 0.4 mg UNSCH PRN IV SEE LABEL COMMENTS; Start 05/14/16 at 14 :30 Piperacillin Sod/ Tazobactam Sod 50 ml @ 100 mls/hr Q8H IV Last administered on 05/16/16 12:12; Start 05/14/16 at 22:00; Stop 05/16/16 at 23:48; Status DC Pharmacy Profile Note 0 ml @ 0 mls/hr UNSCH OTHER ; Start 05/14/16 at 14:45; Status Cancel Vancomycin HCl 2000 mg/Sodium Chloride 520 ml @ 258.75 mls/ hr ONCE ONCE IV Last administered on 05/14/16 15:05; Start 05/14/16 at 15:00; Stop 05/14/16 at 17: 00; Status DC Sodium Chloride (NS 1000 ml Inj) 1,000 ml @ 0 mls/hr Q0M PRN IV For Prime & Rinse Back Last administered on 06/02/16 08:14; Start 05/14/16 at 14:54 Heparin Sodium (Porcine) 8000 units 8,000 units UNSCH PRN IVF WITH DIALYSIS; Start 05/14/16 at 15:00 Sodium Chloride 1,000 ml @ 200 mls/hr Q5H PRN IV WITH DIALYSIS Last administered on 05/28/16 08:38; Start 05/14/16 at 14:54 Sodium Chloride (NS 1000 ml Inj) 1,000 ml @ 0 mls/hr Q0M PRN IV WITH DIALYSIS Last administered on 05/30/16 09:36; Start 05/14/16 at 14:54 Mannitol (Mannitol Inj) 12.5 gm UNSCH PRN IV WITH DIALYSIS; Start 05/14/16 at 15 :00 Albumin Human (Albumin 25% Inj) 25 gm UNSCH PRN IV WITH DIALYSIS; Start at 15:00 IV Flush (NS Flush) 5 ml UNSCH PRN IVF WITH DIALYSIS; Start 05/14/16 at 15:00 Heparin Sodium (Porcine) (Heparin Inj) UNSCH PRN .XX WITH DIALYSIS Last administered on 06/02/16 08:14; Start 05/14/16 at 15:00 Gentamicin Sulfate (Gentamicin (Dialysis) Inj) 20 mg UNSCH PRN IV WITH DIALYSIS Last administered on 06/02/16 08:14; Start 05/14/16 at 15:00 Ondansetron HCl (Zofran Inj) 4 mg UNSCH PRN IV WITH DIALYSIS; Start 05/14/16 at 15:00 Acetaminophen (Tylenol) 650 mg UNSCH PRN PO for headach, pain, temp > 101F Last administered on 05/16/16 09:36; Start 05/14/16 at 15:00 Diphenhydramine HCl (Benadryl) 25 mg UNSCH PRN PO for hives/itching/anaphylaxis ; Start 05/14/16 at 15:00 Nitroglycerin (Nitrostat Sl) 0.4 mg UNSCH PRN SL CHEST PAIN; Start 05/14/16 at 15:00 Clonidine (Catapres) 0.1 mg UNSCH PRN PO for BP > 180/100 X 2 readings; Start 05/14/16 at 15:00 Epoetin Porter (Epogen Inj) 10,000 units UNSCH PRN IV WITH DIALYSIS Last administered on 06/02/16 08:14; Start 05/14/16 at 15:00 Gelatin (Gelfoam 12 Mm/7 Mm Top) 1 foam UNSCH PRN TOP SEE LABEL COMMENTS; Start 05/14/16 at 15:00 Insulin Human Regular (NovoLIN R SUPPLEMENTAL SCALE) 1 ACHS SLIDING SCALE SQ Last administered on 05/18/16 17:26; Start 05/14/16 at 21:00; Stop 05/18/16 at 18:24; Status DC Dextrose (D50w (Vial) Inj) 25 ml UNSCH PRN IV PUSH HYPOGLYCEMIA - SEE COMMENTS ; Start 05/14/16 at 18:45 Glucagon (Glucagon Inj) 1 mg UNSCH PRN OTHER HYPOGLYCEMIA-SEE COMMENTS; Start 05/14/16 at 18:45 Sodium Hypochlorite (Dakin'S 0.125% Soln) 120 ml DAILY OTHER Last administered on 05/31/16 08:18; Start 05/17/16 at 15:00 Collagenase (Santyl Oint) 1 applic DAILY EXT Last administered on 06/03/16 09: 00; Start 05/17/16 at 15:00 Furosemide (Lasix Inj) 40 mg UNSCH X1 IV PUSH ; Start 05/16/16 at 17:30; Stop at 03:00; Status DC Diatrizoate Meglum/ Diatrizoate Sod ( Gastroview Liq) 18 ml ONCE ONCE PO ; Start 05/16/16 at 18:45; Stop 05/16/16 at 19:23; Status DC Diatrizoate Meglum/ Diatrizoate Sod (Md Nichols Liq) 18 ml ONCE ONCE PO ; Start 05/17/16 at 08:00; Stop 05/17/16 at 08:01; Status DC Lorazepam 1 mg 1 mg ONCE ONCE IV PUSH Last administered on 05/16/16 23:51; Start 05/16/16 at 23:00; Stop 05/16/16 at 23:03; Status DC Piperacillin Sod/ Tazobactam Sod (Zosyn 2.25 Gm Premix) 50 ml @ 100 mls/hr Q8H IV Last administered on 05/22/16 09:38; Start 05/17/16 at 01:00; Stop at 12:27; Status DC Bupivacaine HCl (Marcaine Pf 0.5% Inj) 30 ml STK-MED ONCE .ROUTE ; Start at 15:51; Stop 05/17/16 at 15:52; Status DC Bupivacaine HCl/ Epinephrine Bitart (Sensorcaine-Epi 0.5% 50 ml Inj) 50 ml STK- MED ONCE .ROUTE Last administered on 05/17/16 17:57; Start 05/17/16 at 15:52; Stop 05/17/16 at 15:53; Status DC Bacitracin (Baciguent Oint) 15 applic STK-MED ONCE .ROUTE ; Start 05/17/16 at 15 :52; Stop 05/17/16 at 15:53; Status DC Lidocaine/ Epinephrine (Xylocaine-Epi 1%-1:100,000 Inj) 50 ml STK-MED ONCE .ROUTE ; Start 05/17/16 at 15:53; Stop 05/17/16 at 15:54; Status DC Epinephrine HCl (Adrenalin (1:1000) Inj) 2 mg STK-MED ONCE .ROUTE Last administered on 05/17/16 17:57; Start 05/17/16 at 16:58; Stop 05/17/16 at 16:59 ; Status DC Lidocaine/ Epinephrine (Xylocaine-Epi 1%-1:100,000 Inj) 50 ml STK-MED ONCE .ROUTE ; Start 05/17/16 at 16:58; Stop 05/17/16 at 16:59; Status DC Miscellaneous Information ALL NURSING DEPARTME... UNSCH PRN XX SEE LABEL COMMENTS; Start 05/17/16 at 19:30; Stop 05/18/16 at 19:29; Status DC Fentanyl Citrate (fentaNYL INJ) 250 mcg STK-MED ONCE .ROUTE ; Start 05/17/16 at 19:21; Stop 05/17/16 at 19:22; Status DC Morphine Sulfate (Morphine Inj) 4 mg STK-MED ONCE .ROUTE ; Start 05/17/16 at 19: 55; Stop 05/17/16 at 19:56; Status DC Insulin Detemir (Levemir Inj) 30 units Q12H SQ Last administered on 05/22/16 18:17; Start 05/18/16 at 18:00; Stop 05/23/16 at 11:55; Status DC Insulin Aspart (NovoLOG SUPPLEMENTAL SCALE) 1 ACHS SLIDING SCALE SQ Last administered on 06/04/16 22:09; Start 05/18/16 at 21:00 Acetaminophen/ Hydrocodone Bitart ([place] 10-325 Mg) 1 tab Q4HR PRN PO PAIN 1-5 Last administered on 06/04/16 20:38; Start 05/19/16 at 20:00 Propofol (Diprivan 200 Mg/20 ml Inj) 200 mg STK-MED ONCE IV ; Start 05/17/16 at 12:00; Stop 05/20/16 at 11:33; Status DC Ondansetron HCl 4 mg 4 mg STK-MED ONCE IV PUSH ; Start 05/17/16 at 12:00; Stop 05/20/16 at 11:33; Status DC Parenteral Electrolytes (Normosol R Inj) 1,000 ml @ As Directed STK-MED ONCE IV ; Start 05/17/16 at 12:00; Stop 05/20/16 at 11:33; Status DC Lactulose 30 ml 30 ml ONCE ONCE PO ; Start 05/20/16 at 18:00; Stop 05/20/16 at 18:01; Status DC Cefepime HCl/ Sodium Chloride (Maxipime Inj/NS Inj) 100 ml @ 200 mls/hr DAILY IV Last administered on 06/05/16 07:05; Start 05/22/16 at 13:00 Acetaminophen/ Hydrocodone Bitart ([place] 5-325 Mg) 1 tab Q4H PRN PO Breakthrough pain/ dressings Last administered on 06/05/16 09:05; Start at 12:00 Insulin Detemir (Levemir Inj) 30 units DAILY SQ Last administered on 06/05/16 07:12; Start 05/24/16 at 09:00 Insulin Detemir (Levemir Inj) 20 units HS SQ Last administered on 06/04/16 22: 09; Start 05/23/16 at 21:00 Silver Nitrate/ Potassium Nitrate (Silver Nitrate Applicators) 1 appl ONCE ONCE TOPICAL ; Start 05/24/16 at 13:15; Stop 05/24/16 at 13:16; Status DC Non-Formulary Medication LIDOCAINE 2% WITH EPINEPHRINE 1:200,... ONCE ONCE OTHER ; Start 05/24/16 at 18:30; Stop 05/24/16 at 18:31; Status DC Sodium Bicarbonate (Sodium Bicarbonate 8.4% Inj) 50 meq ONCE ONCE IV PUSH ; Start 05/24/16 at 18:30; Stop 05/24/16 at 18:32; Status DC Acetaminophen/ Hydrocodone Bitart ([place] 10-325 Mg) 1 tab ONCE ONCE PO Last administered on 05/25/16 12:46; Start 05/25/16 at 10:30; Stop 05/25/16 at 10:37 ; Status DC Midazolam HCl (Versed Inj) 2 mg STK-MED ONCE .ROUTE ; Start 05/26/16 at 07:31; Stop 05/26/16 at 07:32; Status DC Fentanyl Citrate (fentaNYL INJ) 250 mcg STK-MED ONCE .ROUTE ; Start 05/26/16 at 07:31; Stop 05/26/16 at 07:32; Status DC Acetaminophen (Ofirmev Inj) 1,000 mg STK-MED ONCE IV ; Start 05/26/16 at 07:44; Stop 05/26/16 at 07:49; Status DC Lidocaine/ Epinephrine (Xylocaine-Epi 1%-1:100,000 Inj) 30 ml STK-MED ONCE INFIL Last administered on 05/26/16 08:14; Start 05/26/16 at 08:14; Stop 05/26 at 08:23; Status DC Morphine Sulfate (*morphine INJ PERIprocedure ONLY) 8 mg STK-MED ONCE .ROUTE Last administered on 05/26/16 09:12; Start 05/26/16 at 09:11; Stop 05/26/16 at 09:12; Status DC Miscellaneous Information ALL NURSING DEPARTME... UNSCH PRN XX SEE LABEL COMMENTS; Start 05/26/16 at 09:30; Stop 05/27/16 at 09:29; Status DC Senna/Docusate Sodium ([place]-Colace) 1 tab BID PO Last administered on 22:08; Start 05/26/16 at 21:00 Propofol (Diprivan 200 Mg/20 ml Inj) 200 mg STK-MED ONCE IV ; Start 05/26/16 at 12:00; Stop 05/27/16 at 10:52; Status DC Ondansetron HCl 4 mg 4 mg STK-MED ONCE IV PUSH ; Start 05/26/16 at 12:00; Stop 05/27/16 at 10:52; Status DC Lactated Ringer's (Lr 1000 ml Inj) 1,000 ml @ As Directed STK-MED ONCE IV ; Start 05/26/16 at 12:00; Stop 05/27/16 at 10:52; Status DC Ephedrine Sulfate (ePHEDrine/NS 25 MG/5 ML SYR) 25 mg STK-MED ONCE IV ; Start at 12:00; Stop 05/27/16 at 10:52; Status DC Neostigmine Methylsulfate 3 mg 3 mg STK-MED ONCE IV ; Start 05/26/16 at 12:00; Stop 05/27/16 at 10:52; Status DC Sodium Chloride 1,000 ml @ 50 mls/hr Q20H IV Last administered on 05/27/16 12 :53; Start 05/27/16 at 12:45; Stop 05/27/16 at 17:44; Status DC Iron Sucrose 50 mg/Sodium Chloride 102.5 ml @ 105 mls/hr ONCE ONCE IV ; Start 05/28/16 at 12:00; Stop 05/28/16 at 12:58; Status DC Magnesium Sulfate/ Dextrose (Magnesium Sulfate 1 Gm Premix) 100 ml @ 100 mls/ hr ONCE ONCE IV Last administered on 05/28/16 18:09; Start 05/28/16 at 18:00 ; Stop 05/28/16 at 18:59; Status DC Iron Sucrose 50 mg 50 mg ONCE ONCE IV PUSH Last administered on 05/30/16 12: 25; Start 05/30/16 at 12:00; Stop 05/30/16 at 12:01; Status DC Sodium Thiosulfate/ Sterile Water (Sodium Thiosulfate Inj/ Sterile Water For Inj ) 150 ml @ 150 mls/hr WITH DIALYSIS PRN IV calciphylaxis Last administered on 06/02/16 08:51; Start 06/01/16 at 17:30 Cinacalcet (Sensipar) 30 mg DAILY PO Last administered on 06/05/16 07:09; Start 06/02/16 at 09:00 Miscellaneous Information Patient in critical care unit? Ass... [id number] Last administered on 06/02/16 00:15; Start 06/02/16 at 00:15 Chlorhexidine Gluconate (Chlorhexidine 2% Cloth) 3 pack DAILY@04 TOP Last administered on 06/02/16 00:22; Start 06/02/16 at 04:00; Stop 06/06/16 at 04:01 Chlorhexidine Gluconate (Chlorhexidine 2% Cloth) 3 pack UNSCH PRN TOP HYGIENIC CARE; Start 06/02/16 at 00:15; Stop 06/07/16 at 00:02 Sevelamer Carbonate (Renvela) 1,600 mg TID PO Last administered on 06/05/16 07 :08; Start 06/03/16 at 13:00 Morphine Sulfate (Morphine Inj) 2 mg ONCE ONCE IV PUSH Last administered on 22:30; Start 06/03/16 at 22:30; Stop 06/03/16 at 22:31; Status DC Hydromorphone HCl (Dilaudid Pf Inj) 1 mg Q4H PRN IV PUSH PAIN 6-10 Last administered on 06/04/16 06:05; Start 06/03/16 at 23:45; Stop 06/04/16 at 09:27 ; Status DC Hydromorphone HCl (Dilaudid Pf Inj) 2 mg Q4H PRN IV PUSH PAIN 6-10 Last administered on 06/05/16 07:02; Start 06/04/16 at 11:45 Morphine Sulfate (Oramorph Sr) 15 mg Q12HR PO ; Start 06/05/16 at 09:30; Status UNV A/P Assessment and Plan Sepsis due to infected wound on abdomen, cellulitis, also has wound and ulcerations on right hip -- per nephrology, 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 Band Reamer Machine Operator is asking for skin biopsy will speak to plastics. -Cultures grew Pseudomonas. Patient completed treatment per infectious disease. - wound care per surgery. S/p debridement 05/26. -Right hip wound is worsening as per photos. Patient will need biopsy to confirm calchiphylaxis. -scheduled for biopsy tomorrow. per nephrology - sodium Thiosulfate with HD -pain at wound site so will add morphine SR 15 mg PO BID. Morbid Obesity BMI 56. -s/p lap band. - the pt agrees with lifestyle modifications. DM II -A1c 6.8%. Glucose well controlled 05/28. - cont Levemir to 30 units daily, 20 units HS. Adjust as needed. - insulin sliding scale. ESRD -On Hemodialysis //Fri. - dialysis per nephrology. Anemia of chronic disease. -Due to CKD. -Continue to monitor. Chronic low back pain and chronic pain syndrome -Controlled. -Exacerbated by wounds. - pain not controlled, with a bowel regimen. DVT prophylaxis with Heparin every 12 hours. Discharge Planning Right hip wound worsen and plastic surgeon reconsult. Band Reamer Machine Operator asking for a biopsy of the skin so will speak with plastics in regards to this. d/w Dr Meyers in regards to this. Suzi Denton MD Jun 05, 2016 09:40
[2016-06-05] MEDS: MORPHINE SULFATE 15 MG CONTROLLED RELEASE TAB PO SCH ×2 (10:42→21:52)
--- NOTE | 2016-06-05 12:09 | HHI.NPPN ---
Subjective History of Present Illness 55-year-old female known to me from before with past medical history of diabetes mellitus, history of morbid obesity, end-stage renal disease on hemodialysis three times per week, history of chronic anemia, congestive heart failure, spinal stenosis, chronic back pain, hypothyroidism who came to the hospital with complaint of worsening lower abdominal wound. I was called to see the patient for the management of dialysis. The patient has been on hemodialysis Friday, and Friday. Additional Remarks Patient is alert, has pain in both flank area, humaira. with movement. Review of Systems General Constitutional: Fatigue Respiratory Lungs: SOB Cardiovascular Cardiac: GRIFFIN Objective Data Data 06/04/16 06/05/16 19:00 07:00 Intake Total 820 ml 480 ml Output Total 0 ml 0 ml Balance 820 ml 480 ml Intake Oral 720 ml 480 ml IV Total 100 ml 0 ml Output Urine Total 0 ml Drainage Total 0 ml 0 ml # Voids 0 # Bowel Movements 0 0 Vital Signs Date Time Temp Pulse Resp B/P Pulse Ox O2 Delivery O2 Flow Rate FiO2 06/05/16 08:00 97.2 71 17 155/68 96 06/05/16 04:00 96.3 69 20 148/65 97 06/05/16 00:00 97.4 72 20 124/60 94 06/04/16 23:26 18 06/04/16 22:09 20 06/04/16 20:00 98.8 75 20 151/69 96 06/04/16 18:00 98.0 76 21 141/68 100 -: 06/04/16 0339 06/04/16 0339 Physical Exam General Appearance: No Acute Distress, Comfortable Eyes Eye Exam: Pupils Equal Throat Throat Exam: Oral Mucosa [place] & Moist Neck Neck Exam: Neck Supple Pulmonary Resp Exam: Breath Sounds Equal, Crackles, Decreased Bases, Diminished Breath Sounds Gastrointestinal/Abdomen GI Exam: Soft, Non-Tender, Distended Extremeties Extremities Exam: Moderate Edema, Pitting Edema, Dependent Edema Neurologic Neuro Exam: Alert, Awake, Oriented Psychiatric Psych Exam: Appropriate Responses Assessment/Plan Assessment Summary: Anemia of CKD, Hypertension, End Stage Renal Disease Problem List: (1) Anemia in chronic kidney disease (CKD) (2) Open wound of abdomen (3) Chronic stasis dermatitis (4) End stage kidney disease Plan Now on Cefepime. Continue the wound care. ID is following. 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 Seen by plastic surgery and had debridement of Rt. buttock area. Also has debridement of abd. wound done. Now with wound Vac. Will get skin Biopsy and started on Na. Thiosulfate treatment and Sensipar. On Renvela. I spoke to plastic surgery to get skin Biopsy, possibly tomorrow. HD will be in AM, site for Biopsy marked. Told the RN to get the consent and ask pathology about sending the specimen. Problem Qualifiers (1) Open wound of abdomen: Qualified Code: S31.109A - Open wound of abdomen, initial encounter Valentin Jimenez MD Jun 05, 2016 12:08
--- NOTE | 2016-06-05 18:09 | PD.CONS ---
History of Present Illness Service Plastic Surgery Consult Requested By Primary Care Physician Aline Velarde MD Diagnoses: History of Present Illness This is a 55 year old morbidly obese female who has been admitted to the hospital for evaluation and treatment of abdominal wounds. She has undergone debridement of 2 wounds of the right side of the lower abdomen/pannus with Dr. Johnson. The wound of the far right/hip area has become necrotic again and a biopsy is being requested for evaluation of possible calciphylaxis. There was a wound culture done in the wound care center and it grew Pseudomonas and enterococcus. Patient just completed a 10 day course of Levaquin and ampicillin. Since admission she has not been febrile. Highest temperature was 99.6. Her white count was up to 19,000, and it's improving. She has been started on Zosyn IV, and IV vancomycin. Past Family Social History Allergies: Coded Allergies: Biaxin (Verified Allergy, Severe, swelling of face, 05/10/16) Iron (Verified Adverse Reaction, Severe, Constipation, 05/10/16) Past Medical History Diabetes ESRD, on dialysis HTN CHF CAD hypothyroid spinal stenosis osteoarthritis left lower arm fistula Past Surgical History Lap band 2004 lap cholecystectomy 1996 PCI and stent 2012 Dialysis catheter placement Active Ordered Medications Current Medications Medications (Trade) Dose Ordered Sig/Soren Route Start Time Stop Time Status Last Admin (Norvasc) 5 mg BID PO 05/14/16 21:00 Hold 05/26/16 21:07 (Ecotrin Ec) 81 mg DAILY PO 05/15/16 09:00 06/05/16 07:09 (Tenormin) 50 mg BID PO 05/14/16 21:00 Hold 05/26/16 21:07 (Lipitor) 80 mg HS PO 05/14/16 21:00 06/04/16 22:08 (Prinivil) 20 mg BID PO 05/14/16 21:00 Hold 05/26/16 21:15 (Rocaltrol) 0.5 mcg DAILY PO 05/15/16 09:00 06/05/16 07:09 (PROzac) 20 mg DAILY PO 05/15/16 09:00 06/05/16 07:08 (Neurontin) 100 mg BID PO 05/14/16 21:00 06/05/16 07:09 (Synthroid) 300 mcg DAILY@0600 PO 05/15/16 06:00 06/05/16 05:23 (Antivert) 25 mg TID PRN PO 05/14/16 14:15 (Zanaflex) 4 mg TID PRN PO 05/14/16 14:15 06/05/16 07:09 (NS Flush) 2 ml UNSCH PRN FLUSH 05/14/16 14:30 05/28/16 18:09 (NS Flush) 2 ml BID FLUSH 05/14/16 21:00 06/05/16 07:16 (Tylenol) 650 mg Q4H PRN PO 05/14/16 14:30 06/02/16 02:49 (Zofran Inj) 4 mg Q6H PRN IVP 05/14/16 14:30 (Reglan Inj) 5 mg Q6H PRN IV PUSH 05/14/16 14:30 (Dulcolax Supp) 10 mg DAILY PRN [place] 05/14/16 14:30 (Heparin Inj) 5,000 units Q12H SQ 05/14/16 16:00 06/05/16 16:38 Naloxone HCl 0.4 mg 0.4 mg UNSCH PRN IV 05/14/16 14:30 (NS 1000 ml Inj) 1,000 ml @ 0 mls/hr Q0M PRN IV 05/14/16 14:54 06/02/16 08:14 Heparin Sodium (Porcine) 8000 units 8,000 units UNSCH PRN IVF 05/14/16 15:00 Sodium Chloride 1,000 ml @ 200 mls/hr Q5H PRN IV 05/14/16 14:54 05/28/16 08:38 (NS 1000 ml Inj) 1,000 ml @ 0 mls/hr Q0M PRN IV 05/14/16 14:54 05/30/16 09:36 (Mannitol Inj) 12.5 gm UNSCH PRN IV 05/14/16 15:00 (Albumin 25% Inj) 25 gm UNSCH PRN IV 05/14/16 15:00 (NS Flush) 5 ml UNSCH PRN IVF 05/14/16 15:00 (Heparin Inj) UNSCH PRN .XX 05/14/16 15:00 06/02/16 08:14 (Gentamicin (Dialysis) Inj) 20 mg UNSCH PRN IV 05/14/16 15:00 06/02/16 08:14 (Zofran Inj) 4 mg UNSCH PRN IV 05/14/16 15:00 (Tylenol) 650 mg UNSCH PRN PO 05/14/16 15:00 05/16/16 09:36 (Benadryl) 25 mg UNSCH PRN PO 05/14/16 15:00 (Nitrostat Sl) 0.4 mg UNSCH PRN SL 05/14/16 15:00 (Catapres) 0.1 mg UNSCH PRN PO 05/14/16 15:00 (Epogen Inj) 10,000 units UNSCH PRN IV 05/14/16 15:00 06/02/16 08:14 (Gelfoam 12 Mm/7 Mm Top) 1 foam UNSCH PRN TOP 05/14/16 15:00 (D50w (Vial) Inj) 25 ml UNSCH PRN IV PUSH 05/14/16 18:45 (Glucagon Inj) 1 mg UNSCH PRN OTHER 05/14/16 18:45 (Santyl Oint) 1 applic DAILY EXT 05/17/16 15:00 06/05/16 10:44 Acetaminophen/ Hydrocodone Bitart 1 tab 1 tab Q4HR PRN PO 05/19/16 20:00 06/04/16 20:38 (Maxipime Inj/NS Inj) 100 ml @ 200 mls/hr DAILY IV 05/22/16 13:00 06/05/16 07:05 ([place] 5-325 Mg) 1 tab Q4H PRN PO 05/23/16 12:00 06/05/16 13:16 (Levemir Inj) 30 units DAILY SQ 05/24/16 09:00 06/05/16 07:12 (Levemir Inj) 20 units HS SQ 05/23/16 21:00 06/04/16 22:09 (Luciana-Colace) 1 tab BID PO 05/26/16 21:00 06/04/16 22:08 (Sensipar) 30 mg DAILY PO 06/02/16 09:00 06/05/16 07:09 Miscellaneous Information Patient in critical care unit? Ass... Q361D XX 06/02/16 00:15 06/02/16 00:15 (Chlorhexidine 2% Cloth) 3 pack DAILY@04 TOP 06/02/16 04:00 06/06/16 04:01 06/02/16 00:22 (Chlorhexidine 2% Cloth) 3 pack UNSCH PRN TOP 06/02/16 00:15 06/07/16 00:02 (Renvela) 1,600 mg TID PO 06/03/16 13:00 06/05/16 16:39 (Dilaudid Pf Inj) 2 mg Q4H PRN IV PUSH 06/04/16 11:45 06/05/16 16:39 (Oramorph Sr) 15 mg Q12HR PO 06/05/16 09:30 06/05/16 10:42 Family History Denies Social History Denies alcohol, tobacco, and drug use. Physical Exam Vital Signs Vital Signs Date Time Temp Pulse Resp B/P Pulse Ox O2 Delivery O2 Flow Rate FiO2 06/05/16 16:00 97.5 72 16 121/53 98 06/05/16 12:00 96.3 74 17 129/51 94 06/05/16 08:00 97.2 71 17 155/68 96 06/05/16 04:00 96.3 69 20 148/65 97 06/05/16 00:00 97.4 72 20 124/60 94 06/04/16 23:26 18 06/04/16 22:09 20 06/04/16 20:00 98.8 75 20 151/69 96 06/04/16 18:00 98.0 76 21 141/68 100 Physical Exam GENERAL: Patient is resting comfortably in bed. SKIN: Lower abdomen/pannus area with wound vac to the medial most wound. There is also a wound father to the right toward the right hip measuring approximately [id number]. This is covered with yellow and black eschar. There is an odor consistent with necrotic tissue. There is clear/yellow drainage on the dressing. The area to be biopsied has been outlined by Dr. Jimenez. HEAD: Atraumatic. Normocephalic. Hair is thinned. EYES: Pupils equal round and reactive. Extraocular motions intact. No scleral icterus. No injection or drainage. ENT: Nose without bleeding, purulent drainage. Uvula midline. Airway patent. NECK: Trachea midline. CARDIOVASCULAR: Regular rate and rhythm. RESPIRATORY: Clear to auscultation. Breath sounds equal bilaterally. No wheezes , rales, or rhonchi. MUSCULOSKELETAL: Lower extremities with dark staining to the skin. NEUROLOGICAL: Awake and alert. Motor and sensory grossly within normal limits. Normal speech. Result Diagram: 06/04/1633806/04/16338 Assessment and Plan Problem List: (1) Open wound of abdomen Status: Acute Plan: A biopsy of the more lateral lower abdominal wound will be scheduled to evaluate for calciphylaxis. This is discussed with the patient. RN is notified and supplies and consent are ordered. Also recommending discontinue Santyl and dress with betadine wet to dry dressing. Order is placed and discussed with RN. No change to wound vac order for more medial wound at this time. Discussed with RN, Dr. Meyers. Discussed Condition With RN Dr. Meyers Problem Qualifiers (1) Open wound of abdomen: Qualified Code: S31.109A - Open wound of abdomen, initial encounter Dana Romero Jun 05, 2016 18:09
[2016-06-05] MEDS: ATORVASTATIN 80 MG TAB PO SCH (20:38)
[2016-06-05] MEDS: POVIDONE IODINE 10% SOLN 480 ML BTL TOPICAL SCH (21:00)
[2016-06-05] MEDS: HYDROmorphone HCL 4 MG TAB PO PRN (23:18)
[2016-06-06] MEDS: CHLORHEXIDINE GLUCONATE 2 % 1 PACK (2 CLOTHS)(taper/protocol) TOP SCH (04:00)
[2016-06-06 04:11] VITALS: BP 154/68; PULSE 78; RESP 20; TEMP 97.4; O2SAT 97
[2016-06-06] MEDS: LEVOTHYROXINE SODIUM 150 MCG TAB PO SCH (04:12)
[2016-06-06] MEDS: HEPARIN SODIUM - SQ 10,000 UNITS/ML VIAL SQ SCH ×2 (04:12→17:07)
[2016-06-06] MEDS: HYDROmorphone HCL 4 MG TAB PO PRN (04:12)
[2016-06-06] MEDS: HIGH DOSE INSULIN NOVOLOG SUPPLEMENTAL SCALE SQ SCH ×4 (06:41→20:05)
[2016-06-06 08:00] VITALS: BP 175/75; PULSE 75; RESP 17; TEMP 96.9; O2SAT 97
[2016-06-06] MEDS: DOCUSATE SODIUM 50 MG/SENNA 8.6 MG TAB PO SCH ×2 (08:13→20:03)
[2016-06-06] MEDS: GABAPENTIN 100 MG CAP PO SCH ×2 (08:13→20:03)
[2016-06-06] MEDS: FLUoxetine HCL 20 MG CAP PO SCH (08:13)
[2016-06-06] MEDS: SEVELAMER CARBONATE 800 MG TAB PO SCH ×3 (08:13→17:07)
[2016-06-06] MEDS: MORPHINE SULFATE 15 MG CONTROLLED RELEASE TAB PO SCH ×2 (08:13→20:04)
[2016-06-06] MEDS: CALCITRIOL 0.25 MCG CAP PO SCH (08:13)
[2016-06-06] MEDS: SODIUM CHLORIDE 0.9% FLUSH 5 ML FLUSH FLUSH SCH ×2 (08:14→21:00)
[2016-06-06] MEDS: COLLAGENASE OINT 30 GM TUBE EXT SCH (08:14)
[2016-06-06] MEDS: POVIDONE IODINE 10% SOLN 480 ML BTL TOPICAL SCH ×2 (08:14→20:06)
[2016-06-06] MEDS: INSULIN DETEMIR 100 UNITS/ML VIAL SQ SCH ×2 (08:14→20:05)
[2016-06-06] MEDS: CEFEPIME INJ 2,000 MG in SODIUM CHLORIDE 0.9% INJ 100 ML IV SCH (08:14)
[2016-06-06] MEDS: ASPIRIN EC 81 MG TABEC PO SCH (08:14)
[2016-06-06] MEDS: HYDROmorphone HCL PF 1 MG/ML VIAL IV PUSH PRN (08:16)
[2016-06-06] MEDS ORDERED: LIDOCAINE 1%/EPINEPHrine 1:100,000 SOLN 30 ML VIAL ONE (08:45)
[2016-06-06] MEDS: CINACALCET HYDROCHLORIDE 30 MG TAB PO SCH (09:07)
--- NOTE | 2016-06-06 10:45 | HHI.NPPN ---
Subjective History of Present Illness 55-year-old female known to me from before with past medical history of diabetes mellitus, history of morbid obesity, end-stage renal disease on hemodialysis three times per week, history of chronic anemia, congestive heart failure, spinal stenosis, chronic back pain, hypothyroidism who came to the hospital with complaint of worsening lower abdominal wound. I was called to see the patient for the management of dialysis. The patient has been on hemodialysis Friday, and Friday. Additional Remarks Patient is alert, seen after the skin biopsy. Review of Systems General Constitutional: Fatigue Respiratory Lungs: SOB Cardiovascular Cardiac: GRIFFIN Objective Data Data 06/05/16 06/06/16 19:00 07:00 Intake Total 0 ml 840 ml Output Total 25 ml 25 ml Balance -25 ml 815 ml Intake Oral 0 ml 840 ml Drainage Total 25 ml 25 ml # Voids 3 3 # Bowel Movements 0 Vital Signs Date Time Temp Pulse Resp B/P Pulse Ox O2 Delivery O2 Flow Rate FiO2 06/06/16 08:00 96.9 75 17 175/75 97 06/06/16 04:11 97.4 78 20 154/68 97 06/05/16 23:52 97.2 71 18 152/68 97 06/05/16 20:00 97.1 74 17 150/66 94 06/05/16 16:00 97.5 72 16 121/53 98 06/05/16 12:00 96.3 74 17 129/51 94 -: 06/04/16 0339 06/04/16 0339 Physical Exam General Appearance: No Acute Distress, Comfortable Eyes Eye Exam: Pupils Equal Throat Throat Exam: Oral Mucosa [place] & Moist Neck Neck Exam: Neck Supple Pulmonary Resp Exam: Breath Sounds Equal, Crackles, Decreased Bases, Diminished Breath Sounds Gastrointestinal/Abdomen GI Exam: Soft, Non-Tender, Distended Extremeties Extremities Exam: Moderate Edema, Pitting Edema, Dependent Edema Neurologic Neuro Exam: Alert, Awake, Oriented Psychiatric Psych Exam: Appropriate Responses Assessment/Plan Assessment Summary: Anemia of CKD, Hypertension, End Stage Renal Disease Problem List: (1) Anemia in chronic kidney disease (CKD) (2) Open wound of abdomen (3) Chronic stasis dermatitis (4) End stage kidney disease Plan Now on Cefepime. Continue the wound care. ID is following. 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 Seen by plastic surgery and had debridement of Rt. buttock area. Also has debridement of abd. wound done. Now with wound Vac. Will get skin Biopsy and started on Na. Thiosulfate treatment and Sensipar. On Renvela. Post skin Biopsy, follow the results. HD will be today, remove fluid as tolerated. Problem Qualifiers (1) Open wound of abdomen: Qualified Code: S31.109A - Open wound of abdomen, initial encounter Valentin Jimenez MD Jun 06, 2016 10:45 Valentin Jimenez MD Jun 06, 2016 10:45
[2016-06-06 12:00] VITALS: BP 116/55; PULSE 75; RESP 17; TEMP 97.2; O2SAT 98
[2016-06-06] MEDS: ACETAMINOPHEN/HYDROcodone 325 MG/10 MG TAB PO PRN ×3 (12:24→21:40)
--- NOTE | 2016-06-06 12:38 | HHI.PR ---
Subjective Remarks Follow-up for abdominal wound and pain management. Patient stated that current pain regimen is perfectly she asked for me not to change anything today. Patient just had a skin biopsy by Dr. Matthew this morning at bedside. Patient has no complaints. Patient's nurse and her son is at the bedside. Objective Vitals Vital Signs Date Time Temp Pulse Resp B/P Pulse Ox O2 Delivery O2 Flow Rate FiO2 06/06/16 08:00 96.9 75 17 175/75 97 06/06/16 04:11 97.4 78 20 154/68 97 06/05/16 23:52 97.2 71 18 152/68 97 06/05/16 20:00 97.1 74 17 150/66 94 06/05/16 16:00 97.5 72 16 121/53 98 I/O 06/05/16 06/05/16 06/05/16 06/06/16 06/06/16 06/06/16 07:00 15:00 23:00 07:00 15:00 23:00 Intake Total 240 ml 0 ml 480 ml 360 ml Output Total 0 ml 25 ml 25 ml Balance 240 ml -25 ml 480 ml 335 ml Intake Oral 240 ml 0 ml 480 ml 360 ml IV Total 0 ml Drainage Total 0 ml 25 ml 25 ml # Voids 0 3 2 1 # Bowel Movements 0 0 Result Diagram: 06/04/16 0339 06/04/16 0339 Objective Remarks GENERAL: Pleasant, morbidly obese middle-age female patient. CARDIOVASCULAR: Regular rate and rhythm without murmurs, gallops, or rubs. RESPIRATORY: Breath sounds equal bilaterally. No accessory muscle use. GASTROINTESTINAL: Obese over hanging pannus. Wound VAC in place over lower abdomen. Abdomen soft, non-tender, nondistended. Band-Aid on wound that was just biopsied. EXTREMITIES: Chronic pedal edema. Brownish discoloration with an odor of B/L lower extremity. Procedures I&D Debridement Medications and IVs Current Medications Sodium Chloride 250 ml @ 15 mls/hr ONCE ONCE IV ; Start 05/14/16 at 13:15; Stop 05/15/16 at 05:54; Status DC Piperacillin Sod/ Tazobactam Sod 50 ml @ 100 mls/hr ONCE ONCE IV Last administered on 05/14/16t 13:56; Start 05/14/16 at 13:45; Stop 05/14/16 at 14:14; Status DC Vancomycin HCl 1000 mg/Sodium Chloride 250 ml @ 250 mls/hr ONCE ONCE IV ; Start 05/14/16 at 13:45; Stop 05/14/16 at 13:51; Status DC Vancomycin HCl/ Sodium Chloride (Vancomycin Inj/ NS 500 ml Inj) 517.5 ml @ 258.75 mls/ hr ONCE ONCE IV ; Start 05/14/16 at 14:00; Stop 05/14/16 at 14:42; Status DC Amlodipine Besylate (Norvasc) 5 mg BID PO Last administered on 05/26/16 21:07 ; Start 05/14/16 at 21:00; Status Hold Aspirin (Ecotrin Ec) 81 mg DAILY PO Last administered on 06/06/16 08:14; Start 05/15/16 at 09:00 Atenolol (Tenormin) 50 mg BID PO Last administered on 05/26/16 21:07; Start at 21:00; Status Hold Atorvastatin Calcium (Lipitor) 80 mg HS PO Last administered on 06/05/16 20:38 ; Start 05/14/16 at 21:00 Lisinopril (Prinivil) 20 mg BID PO Last administered on 05/26/16 21:15; Start 05/14/16 at 21:00; Status Hold Calcitriol (Rocaltrol) 0.5 mcg DAILY PO Last administered on 06/06/16 08:13; Start 05/15/16 at 09:00 Fluoxetine HCl (PROzac) 20 mg DAILY PO Last administered on 06/06/16 08:13; Start 05/15/16 at 09:00 Gabapentin (Neurontin) 100 mg BID PO Last administered on 06/06/16 08:13; Start 05/14/16 at 21:00 Acetaminophen/ Hydrocodone Bitart (Manns Choice 10-325 Mg) 1 tab Q6H PRN PO PAIN Last administered on 05/19/16 15:00; Start 05/14/16 at 14:15; Stop 05/19/16 at 16:26 ; Status DC Levothyroxine Sodium (Synthroid) 300 mcg DAILY@0600 PO Last administered on 04:12; Start 05/15/16 at 06:00 Meclizine HCl (Antivert) 25 mg TID PRN PO VERTIGO; Start 05/14/16 at 14:15 Sevelamer Carbonate (Renvela) 800 mg TID PO Last administered on 06/03/16 09: 13; Start 05/14/16 at 18:00; Stop 06/03/16 at 11:42; Status DC Tizanidine HCl (Zanaflex) 4 mg TID PRN PO MUSCLE SPASM Last administered on 07:09; Start 05/14/16 at 14:15 IV Flush (NS Flush) 2 ml UNSCH PRN FLUSH FLUSH AFTER USING IV ACCESS Last administered on 05/28/16 18:09; Start 05/14/16 at 14:30 IV Flush (NS Flush) 2 ml BID FLUSH Last administered on 06/06/16 08:14; Start 05/14/16 at 21:00 Acetaminophen (Tylenol) 650 mg Q4H PRN PO FEVER Last administered on 06/02/16 02:49; Start 05/14/16 at 14:30 Ondansetron HCl (Zofran Inj) 4 mg Q6H PRN IVP NAUSEA OR VOMITING; Start at 14:30 Metoclopramide HCl (Reglan Inj) 5 mg Q6H PRN IV PUSH NAUSEA OR VOMITING; Start 05/14/16 at 14:30 Bisacodyl (Dulcolax Supp) 10 mg DAILY PRN [place] CONSTIPATION; Start 05/14/16 at 14: 30 Docusate Sodium (Colace) 100 mg Q12HR PO Last administered on 05/26/16 09:00; Start 05/14/16 at 21:00; Stop 05/26/16 at 12:34; Status DC Heparin Sodium (Porcine) (Heparin Inj) 5,000 units Q12H SQ Last administered on 06/06/16 04:12; Start 05/14/16 at 16:00 Naloxone HCl 0.4 mg 0.4 mg UNSCH PRN IV SEE LABEL COMMENTS; Start 05/14/16 at 14 :30 Piperacillin Sod/ Tazobactam Sod 50 ml @ 100 mls/hr Q8H IV Last administered on 05/16/16 12:12; Start 05/14/16 at 22:00; Stop 05/16/16 at 23:48; Status DC Pharmacy Profile Note 0 ml @ 0 mls/hr UNSCH OTHER ; Start 05/14/16 at 14:45; Status Cancel Vancomycin HCl 2000 mg/Sodium Chloride 520 ml @ 258.75 mls/ hr ONCE ONCE IV Last administered on 05/14/16 15:05; Start 05/14/16 at 15:00; Stop 05/14/16 at 17: 00; Status DC Sodium Chloride (NS 1000 ml Inj) 1,000 ml @ 0 mls/hr Q0M PRN IV For Prime & Rinse Back Last administered on 06/02/16 08:14; Start 05/14/16 at 14:54 Heparin Sodium (Porcine) 8000 units 8,000 units UNSCH PRN IVF WITH DIALYSIS; Start 05/14/16 at 15:00 Sodium Chloride 1,000 ml @ 200 mls/hr Q5H PRN IV WITH DIALYSIS Last administered on 05/28/16 08:38; Start 05/14/16 at 14:54 Sodium Chloride (NS 1000 ml Inj) 1,000 ml @ 0 mls/hr Q0M PRN IV WITH DIALYSIS Last administered on 05/30/16 09:36; Start 05/14/16 at 14:54 Mannitol (Mannitol Inj) 12.5 gm UNSCH PRN IV WITH DIALYSIS; Start 05/14/16 at 15 :00 Albumin Human (Albumin 25% Inj) 25 gm UNSCH PRN IV WITH DIALYSIS; Start at 15:00 IV Flush (NS Flush) 5 ml UNSCH PRN IVF WITH DIALYSIS; Start 05/14/16 at 15:00 Heparin Sodium (Porcine) (Heparin Inj) UNSCH PRN .XX WITH DIALYSIS Last administered on 06/02/16 08:14; Start 05/14/16 at 15:00 Gentamicin Sulfate (Gentamicin (Dialysis) Inj) 20 mg UNSCH PRN IV WITH DIALYSIS Last administered on 06/02/16 08:14; Start 05/14/16 at 15:00 Ondansetron HCl (Zofran Inj) 4 mg UNSCH PRN IV WITH DIALYSIS; Start 05/14/16 at 15:00 Acetaminophen (Tylenol) 650 mg UNSCH PRN PO for headach, pain, temp > 101F Last administered on 05/16/16 09:36; Start 05/14/16 at 15:00 Diphenhydramine HCl (Benadryl) 25 mg UNSCH PRN PO for hives/itching/anaphylaxis ; Start 05/14/16 at 15:00 Nitroglycerin (Nitrostat Sl) 0.4 mg UNSCH PRN SL CHEST PAIN; Start 05/14/16 at 15:00 Clonidine (Catapres) 0.1 mg UNSCH PRN PO for BP > 180/100 X 2 readings; Start 05/14/16 at 15:00 Epoetin Porter (Epogen Inj) 10,000 units UNSCH PRN IV WITH DIALYSIS Last administered on 06/02/16 08:14; Start 05/14/16 at 15:00 Gelatin (Gelfoam 12 Mm/7 Mm Top) 1 foam UNSCH PRN TOP SEE LABEL COMMENTS; Start 05/14/16 at 15:00 Insulin Human Regular (NovoLIN R SUPPLEMENTAL SCALE) 1 ACHS SLIDING SCALE SQ Last administered on 05/18/16 17:26; Start 05/14/16 at 21:00; Stop 05/18/16 at 18:24; Status DC Dextrose (D50w (Vial) Inj) 25 ml UNSCH PRN IV PUSH HYPOGLYCEMIA - SEE COMMENTS ; Start 05/14/16 at 18:45 Glucagon (Glucagon Inj) 1 mg UNSCH PRN OTHER HYPOGLYCEMIA-SEE COMMENTS; Start 05/14/16 at 18:45 Sodium Hypochlorite (Dakin'S 0.125% Soln) 120 ml DAILY OTHER Last administered on 05/31/16 08:18; Start 05/17/16 at 15:00; Stop 06/05/16 at 16:32; Status DC Collagenase (Santyl Oint) 1 applic DAILY EXT Last administered on 06/06/16 08: 14; Start 05/17/16 at 15:00 Furosemide (Lasix Inj) 40 mg UNSCH X1 IV PUSH ; Start 05/16/16 at 17:30; Stop at 03:00; Status DC Diatrizoate Meglum/ Diatrizoate Sod ( Gastroraulito Liq) 18 ml ONCE ONCE PO ; Start 05/16/16 at 18:45; Stop 05/16/16 at 19:23; Status DC Diatrizoate Meglum/ Diatrizoate Sod ( Gastroview Liq) 18 ml ONCE ONCE PO ; Start 05/17/16 at 08:00; Stop 05/17/16 at 08:01; Status DC Lorazepam 1 mg 1 mg ONCE ONCE IV PUSH Last administered on 05/16/16 23:51; Start 05/16/16 at 23:00; Stop 05/16/16 at 23:03; Status DC Piperacillin Sod/ Tazobactam Sod (Zosyn 2.25 Gm Premix) 50 ml @ 100 mls/hr Q8H IV Last administered on 05/22/16 09:38; Start 05/17/16 at 01:00; Stop at 12:27; Status DC Bupivacaine HCl (Marcaine Pf 0.5% Inj) 30 ml STK-MED ONCE .ROUTE ; Start at 15:51; Stop 05/17/16 at 15:52; Status DC Bupivacaine HCl/ Epinephrine Bitart (Sensorcaine-Epi 0.5% 50 ml Inj) 50 ml STK- MED ONCE .ROUTE Last administered on 05/17/16 17:57; Start 05/17/16 at 15:52; Stop 05/17/16 at 15:53; Status DC Bacitracin (Baciguent Oint) 15 applic STK-MED ONCE .ROUTE ; Start 05/17/16 at 15 :52; Stop 05/17/16 at 15:53; Status DC Lidocaine/ Epinephrine (Xylocaine-Epi 1%-1:100,000 Inj) 50 ml STK-MED ONCE .ROUTE ; Start 05/17/16 at 15:53; Stop 05/17/16 at 15:54; Status DC Epinephrine HCl (Adrenalin (1:1000) Inj) 2 mg STK-MED ONCE .ROUTE Last administered on 05/17/16 17:57; Start 05/17/16 at 16:58; Stop 05/17/16 at 16:59 ; Status DC Lidocaine/ Epinephrine (Xylocaine-Epi 1%-1:100,000 Inj) 50 ml STK-MED ONCE .ROUTE ; Start 05/17/16 at 16:58; Stop 05/17/16 at 16:59; Status DC Miscellaneous Information ALL NURSING DEPARTME... UNSCH PRN XX SEE LABEL COMMENTS; Start 05/17/16 at 19:30; Stop 05/18/16 at 19:29; Status DC Fentanyl Citrate (fentaNYL INJ) 250 mcg STK-MED ONCE .ROUTE ; Start 05/17/16 at 19:21; Stop 05/17/16 at 19:22; Status DC Morphine Sulfate (Morphine Inj) 4 mg STK-MED ONCE .ROUTE ; Start 05/17/16 at 19: 55; Stop 05/17/16 at 19:56; Status DC Insulin Detemir (Levemir Inj) 30 units Q12H SQ Last administered on 05/22/16 18:17; Start 05/18/16 at 18:00; Stop 05/23/16 at 11:55; Status DC Insulin Aspart (NovoLOG SUPPLEMENTAL SCALE) 1 ACHS SLIDING SCALE SQ Last administered on 06/06/16 11:12; Start 05/18/16 at 21:00 Acetaminophen/ Hydrocodone Bitart (Manns Choice 10-325 Mg) 1 tab Q4HR PRN PO PAIN 1-5 Last administered on 06/06/16 12:24; Start 05/19/16 at 20:00 Propofol (Diprivan 200 Mg/20 ml Inj) 200 mg STK-MED ONCE IV ; Start 05/17/16 at 12:00; Stop 05/20/16 at 11:33; Status DC Ondansetron HCl 4 mg 4 mg STK-MED ONCE IV PUSH ; Start 05/17/16 at 12:00; Stop 05/20/16 at 11:33; Status DC Parenteral Electrolytes (Normosol R Inj) 1,000 ml @ As Directed STK-MED ONCE IV ; Start 05/17/16 at 12:00; Stop 05/20/16 at 11:33; Status DC Lactulose 30 ml 30 ml ONCE ONCE PO ; Start 05/20/16 at 18:00; Stop 05/20/16 at 18:01; Status DC Cefepime HCl/ Sodium Chloride (Maxipime Inj/NS Inj) 100 ml @ 200 mls/hr DAILY IV Last administered on 06/06/16 08:14; Start 05/22/16 at 13:00 Acetaminophen/ Hydrocodone Bitart ([place] 5-325 Mg) 1 tab Q4H PRN PO Breakthrough pain/ dressings Last administered on 06/05/16 18:15; Start at 12:00 Insulin Detemir (Levemir Inj) 30 units DAILY SQ Last administered on 06/06/16 08:14; Start 05/24/16 at 09:00 Insulin Detemir (Levemir Inj) 20 units HS SQ Last administered on 06/05/16 20: 39; Start 05/23/16 at 21:00 Silver Nitrate/ Potassium Nitrate (Silver Nitrate Applicators) 1 appl ONCE ONCE TOPICAL ; Start 05/24/16 at 13:15; Stop 05/24/16 at 13:16; Status DC Non-Formulary Medication LIDOCAINE 2% WITH EPINEPHRINE 1:200,... ONCE ONCE OTHER ; Start 05/24/16 at 18:30; Stop 05/24/16 at 18:31; Status DC Sodium Bicarbonate (Sodium Bicarbonate 8.4% Inj) 50 meq ONCE ONCE IV PUSH ; Start 05/24/16 at 18:30; Stop 05/24/16 at 18:32; Status DC Acetaminophen/ Hydrocodone Bitart ([place] 10-325 Mg) 1 tab ONCE ONCE PO Last administered on 05/25/16 12:46; Start 05/25/16 at 10:30; Stop 05/25/16 at 10:37 ; Status DC Midazolam HCl (Versed Inj) 2 mg STK-MED ONCE .ROUTE ; Start 05/26/16 at 07:31; Stop 05/26/16 at 07:32; Status DC Fentanyl Citrate (fentaNYL INJ) 250 mcg STK-MED ONCE .ROUTE ; Start 05/26/16 at 07:31; Stop 05/26/16 at 07:32; Status DC Acetaminophen (Ofirmev Inj) 1,000 mg STK-MED ONCE IV ; Start 05/26/16 at 07:44; Stop 05/26/16 at 07:49; Status DC Lidocaine/ Epinephrine (Xylocaine-Epi 1%-1:100,000 Inj) 30 ml STK-MED ONCE INFIL Last administered on 05/26/16 08:14; Start 05/26/16 at 08:14; Stop 05/26 at 08:23; Status DC Morphine Sulfate (*morphine INJ PERIprocedure ONLY) 8 mg STK-MED ONCE .ROUTE Last administered on 05/26/16 09:12; Start 05/26/16 at 09:11; Stop 05/26/16 at 09:12; Status DC Miscellaneous Information ALL NURSING DEPARTME... UNSCH PRN XX SEE LABEL COMMENTS; Start 05/26/16 at 09:30; Stop 05/27/16 at 09:29; Status DC Senna/Docusate Sodium (Luciana-Colace) 1 tab BID PO Last administered on 08:13; Start 05/26/16 at 21:00 Propofol (Diprivan 200 Mg/20 ml Inj) 200 mg STK-MED ONCE IV ; Start 05/26/16 at 12:00; Stop 05/27/16 at 10:52; Status DC Ondansetron HCl 4 mg 4 mg STK-MED ONCE IV PUSH ; Start 05/26/16 at 12:00; Stop 05/27/16 at 10:52; Status DC Lactated Ringer's (Lr 1000 ml Inj) 1,000 ml @ As Directed STK-MED ONCE IV ; Start 05/26/16 at 12:00; Stop 05/27/16 at 10:52; Status DC Ephedrine Sulfate (ePHEDrine/NS 25 MG/5 ML SYR) 25 mg STK-MED ONCE IV ; Start at 12:00; Stop 05/27/16 at 10:52; Status DC Neostigmine Methylsulfate 3 mg 3 mg STK-MED ONCE IV ; Start 05/26/16 at 12:00; Stop 05/27/16 at 10:52; Status DC Sodium Chloride 1,000 ml @ 50 mls/hr Q20H IV Last administered on 05/27/16 12 :53; Start 05/27/16 at 12:45; Stop 05/27/16 at 17:44; Status DC Iron Sucrose 50 mg/Sodium Chloride 102.5 ml @ 105 mls/hr ONCE ONCE IV ; Start 05/28/16 at 12:00; Stop 05/28/16 at 12:58; Status DC Magnesium Sulfate/ Dextrose (Magnesium Sulfate 1 Gm Premix) 100 ml @ 100 mls/ hr ONCE ONCE IV Last administered on 05/28/16 18:09; Start 05/28/16 at 18:00 ; Stop 05/28/16 at 18:59; Status DC Iron Sucrose 50 mg 50 mg ONCE ONCE IV PUSH Last administered on 05/30/16 12: 25; Start 05/30/16 at 12:00; Stop 05/30/16 at 12:01; Status DC Sodium Thiosulfate/ Sterile Water (Sodium Thiosulfate Inj/ Sterile Water For Inj ) 150 ml @ 150 mls/hr WITH DIALYSIS PRN IV calciphylaxis Last administered on 06/02/16 08:51; Start 06/01/16 at 17:30 Cinacalcet (Sensipar) 30 mg DAILY PO Last administered on 06/06/16 09:07; Start 06/02/16 at 09:00 Miscellaneous Information Patient in critical care unit? Ass... [id number] Last administered on 06/02/16 00:15; Start 06/02/16 at 00:15 Chlorhexidine Gluconate (Chlorhexidine 2% Cloth) 3 pack DAILY@04 TOP Last administered on 06/02/16 00:22; Start 06/02/16 at 04:00; Stop 06/06/16 at 04:01 ; Status DC Chlorhexidine Gluconate (Chlorhexidine 2% Cloth) 3 pack UNSCH PRN TOP HYGIENIC CARE; Start 06/02/16 at 00:15; Stop 06/07/16 at 00:02 Sevelamer Carbonate (Renvela) 1,600 mg TID PO Last administered on 06/06/16 12 :20; Start 06/03/16 at 13:00 Morphine Sulfate (Morphine Inj) 2 mg ONCE ONCE IV PUSH Last administered on 22:30; Start 06/03/16 at 22:30; Stop 06/03/16 at 22:31; Status DC Hydromorphone HCl (Dilaudid Pf Inj) 1 mg Q4H PRN IV PUSH PAIN 6-10 Last administered on 06/04/16 06:05; Start 06/03/16 at 23:45; Stop 06/04/16 at 09:27 ; Status DC Hydromorphone HCl (Dilaudid Pf Inj) 2 mg Q4H PRN IV PUSH PAIN 6-10 Last administered on 06/06/16 08:16; Start 06/04/16 at 11:45 Morphine Sulfate (Oramorph Sr) 15 mg Q12HR PO Last administered on 06/06/16 08 :13; Start 06/05/16 at 09:30 Povidone Iodine (Betadine 10% Top Soln) 1 applic BID TOPICAL Last administered on 06/06/16 08:14; Start 06/05/16 at 21:00 Hydromorphone HCl (Dilaudid) 8 mg Q4HR PRN PO PAIN SCALE 1 TO 10 Last administered on 06/06/16 04:12; Start 06/05/16 at 23:00; Stop 06/06/16 at 08:00 ; Status DC Lidocaine/ Epinephrine (Xylocaine-Epi 1%-1:100,000 Inj) 30 ml STK-MED ONCE .ROUTE ; Start 06/06/16 at 08:45; Stop 06/06/16 at 08:46; Status DC A/P Assessment and Plan Sepsis due to infected wound on abdomen, cellulitis, also has wound and ulcerations on right hip - per nephrology, 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 -Cultures grew Pseudomonas. Patient completed treatment per infectious disease. - wound care per surgery. S/p debridement 05/26. -Right hip wound is worsening as per photos. --Status post skin biopsy on 05/10/[address] Meyers. per nephrology - sodium Thiosulfate with HD -Pain with wound better control morphine SR 50 mg by mouth twice a day. Continue current regimen. Morbid Obesity BMI 56. -s/p lap band. - the pt agrees with lifestyle modifications. DM II -A1c 6.8%. Glucose well controlled 05/28. - cont Levemir to 30 units daily, 20 units HS. Adjust as needed. - insulin sliding scale. ESRD -On Hemodialysis //Fri. - dialysis per nephrology. Anemia of chronic disease. -Due to CKD. -Continue to monitor. Chronic low back pain and chronic pain syndrome -Controlled. -Exacerbated by wounds. DVT prophylaxis with Heparin every 12 hours. Suzi Denton MD Jun 06, 2016 12:37
[2016-06-06] MEDS: SODIUM THIOSULFATE INJ 12,500 MG in WATER STERILE FOR INJ 100 ML IV PRN (15:14)
[2016-06-06] MEDS: HYDROmorphone HCL PF 2 MG/ML VIAL IV PUSH PRN ×2 (15:14→22:49)
[2016-06-06] MEDS: EPOETIN ALFA 10,000 UNITS/ML VIAL IV PRN (15:15)
[2016-06-06] MEDS: GENTAMICIN SULFATE (DIALYSIS USE ONLY) 20 MG/2 ML VIAL IV PRN (15:17)
[2016-06-06] MEDS: SODIUM CHLOR 0.9% 1000 ML INJ 1,000 ML IV PRN (15:17)
[2016-06-06] MEDS: HEPARIN SODIUM - IV 10,000 UNITS/10 ML VIAL PRN (15:18)
[2016-06-06] MEDS: ATORVASTATIN 80 MG TAB PO SCH (20:03)
[2016-06-06 20:15] VITALS: BP 96/62; PULSE 79; RESP 18; TEMP 99.8; O2SAT 98
[2016-06-06 23:42] VITALS: BP 129/69; PULSE 82; RESP 18; TEMP 96.9; O2SAT 97
[2016-06-07] MEDS: HEPARIN SODIUM - SQ 10,000 UNITS/ML VIAL SQ SCH ×2 (03:38→16:20)
[2016-06-07] MEDS: HYDROmorphone HCL PF 2 MG/ML VIAL IV PUSH PRN (03:38)
[2016-06-07] MEDS: ACETAMINOPHEN/HYDROcodone 325 MG/10 MG TAB PO PRN ×4 (05:39→18:30)
[2016-06-07] MEDS: LEVOTHYROXINE SODIUM 150 MCG TAB PO SCH (05:39)
[2016-06-07] MEDS: HIGH DOSE INSULIN NOVOLOG SUPPLEMENTAL SCALE SQ SCH ×4 (05:40→20:34)
[2016-06-07 08:00] VITALS: BP 148/69; PULSE 84; RESP 18; TEMP 98.3; O2SAT 94
[2016-06-07] MEDS: SODIUM CHLORIDE 0.9% FLUSH 5 ML FLUSH FLUSH SCH ×2 (08:12→20:36)
[2016-06-07] MEDS: MORPHINE SULFATE 15 MG CONTROLLED RELEASE TAB PO SCH (08:12)
[2016-06-07] MEDS: GABAPENTIN 100 MG CAP PO SCH ×2 (08:12→20:33)
[2016-06-07] MEDS: CEFEPIME INJ 2,000 MG in SODIUM CHLORIDE 0.9% INJ 100 ML IV SCH (08:12)
[2016-06-07] MEDS: SEVELAMER CARBONATE 800 MG TAB PO SCH ×3 (08:12→16:20)
[2016-06-07] MEDS: CINACALCET HYDROCHLORIDE 30 MG TAB PO SCH (08:12)
[2016-06-07] MEDS: ASPIRIN EC 81 MG TABEC PO SCH (08:12)
[2016-06-07] MEDS: CALCITRIOL 0.25 MCG CAP PO SCH (08:12)
[2016-06-07] MEDS: DOCUSATE SODIUM 50 MG/SENNA 8.6 MG TAB PO SCH ×2 (08:12→20:33)
[2016-06-07] MEDS: FLUoxetine HCL 20 MG CAP PO SCH (08:12)
[2016-06-07] MEDS: COLLAGENASE OINT 30 GM TUBE EXT SCH (08:12)
[2016-06-07] MEDS: POVIDONE IODINE 10% SOLN 480 ML BTL TOPICAL SCH ×2 (08:13→20:55)
[2016-06-07] MEDS: INSULIN DETEMIR 100 UNITS/ML VIAL SQ SCH ×2 (08:13→20:34)
--- NOTE | 2016-06-07 11:16 | HHI.NPPN ---
Subjective History of Present Illness 55-year-old female known to me from before with past medical history of diabetes mellitus, history of morbid obesity, end-stage renal disease on hemodialysis three times per week, history of chronic anemia, congestive heart failure, spinal stenosis, chronic back pain, hypothyroidism who came to the hospital with complaint of worsening lower abdominal wound. I was called to see the patient for the management of dialysis. The patient has been on hemodialysis Friday, and Friday. Additional Remarks Patient is alert, has more pain in abd. wound. Review of Systems General Constitutional: Fatigue Respiratory Lungs: SOB Cardiovascular Cardiac: GRIFFIN Objective Data Data 06/06/16 06/07/16 19:00 07:00 Intake Total 340 ml 840 ml Balance 340 ml 840 ml Intake Oral 240 ml 840 ml IV Total 100 ml # Voids 3 2 # Bowel Movements 0 Vital Signs Date Time Temp Pulse Resp B/P Pulse Ox O2 Delivery O2 Flow Rate FiO2 06/07/16 08:00 98.3 84 18 148/69 94 06/06/16 23:42 96.9 82 18 129/69 97 06/06/16 20:15 99.8 79 18 96/62 98 06/06/16 12:00 97.2 75 17 116/55 98 -: 06/04/16 0339 06/04/16 0339 Physical Exam General Appearance: No Acute Distress, Comfortable Eyes Eye Exam: Pupils Equal Throat Throat Exam: Oral Mucosa [place] & Moist Neck Neck Exam: Neck Supple Pulmonary Resp Exam: Breath Sounds Equal, Crackles, Decreased Bases, Diminished Breath Sounds Gastrointestinal/Abdomen GI Exam: Soft, Non-Tender, Distended Extremeties Extremities Exam: Moderate Edema, Pitting Edema, Dependent Edema Neurologic Neuro Exam: Alert, Awake, Oriented Psychiatric Psych Exam: Appropriate Responses Assessment/Plan Assessment Summary: Anemia of CKD, Hypertension, End Stage Renal Disease Problem List: (1) Anemia in chronic kidney disease (CKD) (2) Open wound of abdomen (3) Chronic stasis dermatitis (4) End stage kidney disease Plan Now on Cefepime. Continue the wound care. ID is following. 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 Seen by plastic surgery and had debridement of Rt. buttock area. Also has debridement of abd. wound done. Now with wound Vac. Post skin Biopsy and started on Na. Thiosulfate treatment and Sensipar. On Renvela. skin Biopsy done, follow the results. HD done yesterday. Has asterixis, will try more HD, 4 hrs. for next 1 week. Problem Qualifiers (1) Open wound of abdomen: Qualified Code: S31.109A - Open wound of abdomen, initial encounter Valentin iJmenez MD Jun 07, 2016 11:16
[2016-06-07 12:00] VITALS: BP 124/55; PULSE 85; RESP 18; TEMP 99.4; O2SAT 98
--- NOTE | 2016-06-07 12:20 | HHI.PR ---
Subjective Remarks f/u for abdominal wound and uncontrolled pain. patient stated pain is not controlled with current regimen. she is asking for norco every 4 hours and is on Oramorph. other yao no complaints. Objective Vitals Vital Signs Date Time Temp Pulse Resp B/P Pulse Ox O2 Delivery O2 Flow Rate FiO2 06/07/16 08:00 98.3 84 18 148/69 94 06/06/16 23:42 96.9 82 18 129/69 97 06/06/16 20:15 99.8 79 18 96/62 98 I/O 06/06/16 06/06/16 06/06/16 06/07/16 06/07/16 06/07/16 07:00 15:00 23:00 07:00 15:00 23:00 Intake Total 360 ml 340 ml 480 ml 360 ml Output Total 25 ml Balance 335 ml 340 ml 480 ml 360 ml Intake Oral 360 ml 240 ml 480 ml 360 ml IV Total 100 ml Drainage Total 25 ml # Voids 1 3 1 1 # Bowel Movements 0 Result Diagram: 06/04/16 0339 06/04/16 0339 Objective Remarks GENERAL: Pleasant, morbidly obese middle-age female patient. CARDIOVASCULAR: Regular rate and rhythm without murmurs, gallops, or rubs. RESPIRATORY: Breath sounds equal bilaterally. No accessory muscle use. GASTROINTESTINAL: Obese over hanging pannus. Wound VAC in place over lower abdomen. Abdomen soft, non-tender, nondistended. Band-Aid on wound that was just biopsied. EXTREMITIES: Chronic pedal edema. Brownish discoloration with an odor of B/L lower extremity. Procedures I&D Debridement skin biopsy on 06/06 Medications and IVs Current Medications Sodium Chloride 250 ml @ 15 mls/hr ONCE ONCE IV ; Start 05/14/16 at 13:15; Stop 05/15/16 at 05:54; Status DC Piperacillin Sod/ Tazobactam Sod 50 ml @ 100 mls/hr ONCE ONCE IV Last administered on 05/14/16t 13:56; Start 05/14/16 at 13:45; Stop 05/14/16 at 14:14; Status DC Vancomycin HCl 1000 mg/Sodium Chloride 250 ml @ 250 mls/hr ONCE ONCE IV ; Start 05/14/16 at 13:45; Stop 05/14/16 at 13:51; Status DC Vancomycin HCl/ Sodium Chloride (Vancomycin Inj/ NS 500 ml Inj) 517.5 ml @ 258.75 mls/ hr ONCE ONCE IV ; Start 05/14/16 at 14:00; Stop 05/14/16 at 14:42; Status DC Amlodipine Besylate (Norvasc) 5 mg BID PO Last administered on 05/26/16 21:07 ; Start 05/14/16 at 21:00; Status Hold Aspirin (Ecotrin Ec) 81 mg DAILY PO Last administered on 06/07/16 08:12; Start 05/15/16 at 09:00 Atenolol (Tenormin) 50 mg BID PO Last administered on 05/26/16 21:07; Start at 21:00; Status Hold Atorvastatin Calcium (Lipitor) 80 mg HS PO Last administered on 06/06/16 20:03 ; Start 05/14/16 at 21:00 Lisinopril (Prinivil) 20 mg BID PO Last administered on 05/26/16 21:15; Start 05/14/16 at 21:00; Status Hold Calcitriol (Rocaltrol) 0.5 mcg DAILY PO Last administered on 06/07/16 08:12; Start 05/15/16 at 09:00 Fluoxetine HCl (PROzac) 20 mg DAILY PO Last administered on 06/07/16 08:12; Start 05/15/16 at 09:00 Gabapentin (Neurontin) 100 mg BID PO Last administered on 06/07/16 08:12; Start 05/14/16 at 21:00 Acetaminophen/ Hydrocodone Bitart ([place] 10-325 Mg) 1 tab Q6H PRN PO PAIN Last administered on 05/19/16 15:00; Start 05/14/16 at 14:15; Stop 05/19/16 at 16:26 ; Status DC Levothyroxine Sodium (Synthroid) 300 mcg DAILY@0600 PO Last administered on 05:39; Start 05/15/16 at 06:00 Meclizine HCl (Antivert) 25 mg TID PRN PO VERTIGO; Start 05/14/16 at 14:15 Sevelamer Carbonate (Renvela) 800 mg TID PO Last administered on 06/03/16 09: 13; Start 05/14/16 at 18:00; Stop 06/03/16 at 11:42; Status DC Tizanidine HCl (Zanaflex) 4 mg TID PRN PO MUSCLE SPASM Last administered on 07:09; Start 05/14/16 at 14:15 IV Flush (NS Flush) 2 ml UNSCH PRN FLUSH FLUSH AFTER USING IV ACCESS Last administered on 05/28/16 18:09; Start 05/14/16 at 14:30 IV Flush (NS Flush) 2 ml BID FLUSH Last administered on 06/07/16 08:12; Start 05/14/16 at 21:00 Acetaminophen (Tylenol) 650 mg Q4H PRN PO FEVER Last administered on 06/02/16 02:49; Start 05/14/16 at 14:30; Stop 06/06/16 at 12:39; Status DC Ondansetron HCl (Zofran Inj) 4 mg Q6H PRN IVP NAUSEA OR VOMITING; Start at 14:30 Metoclopramide HCl (Reglan Inj) 5 mg Q6H PRN IV PUSH NAUSEA OR VOMITING; Start 05/14/16 at 14:30 Bisacodyl (Dulcolax Supp) 10 mg DAILY PRN TX CONSTIPATION; Start 05/14/16 at 14: 30 Docusate Sodium (Colace) 100 mg Q12HR PO Last administered on 05/26/16 09:00; Start 05/14/16 at 21:00; Stop 05/26/16 at 12:34; Status DC Heparin Sodium (Porcine) (Heparin Inj) 5,000 units Q12H SQ Last administered on 06/07/16 03:38; Start 05/14/16 at 16:00 Naloxone HCl 0.4 mg 0.4 mg UNSCH PRN IV SEE LABEL COMMENTS; Start 05/14/16 at 14 :30 Piperacillin Sod/ Tazobactam Sod 50 ml @ 100 mls/hr Q8H IV Last administered on 05/16/16 12:12; Start 05/14/16 at 22:00; Stop 05/16/16 at 23:48; Status DC Pharmacy Profile Note 0 ml @ 0 mls/hr UNSCH OTHER ; Start 05/14/16 at 14:45; Status Cancel Vancomycin HCl 2000 mg/Sodium Chloride 520 ml @ 258.75 mls/ hr ONCE ONCE IV Last administered on 05/14/16 15:05; Start 05/14/16 at 15:00; Stop 05/14/16 at 17: 00; Status DC Sodium Chloride (NS 1000 ml Inj) 1,000 ml @ 0 mls/hr Q0M PRN IV For Prime & Rinse Back Last administered on 06/06/16 15:17; Start 05/14/16 at 14:54 Heparin Sodium (Porcine) 8000 units 8,000 units UNSCH PRN IVF WITH DIALYSIS; Start 05/14/16 at 15:00 Sodium Chloride 1,000 ml @ 200 mls/hr Q5H PRN IV WITH DIALYSIS Last administered on 05/28/16 08:38; Start 05/14/16 at 14:54 Sodium Chloride (NS 1000 ml Inj) 1,000 ml @ 0 mls/hr Q0M PRN IV WITH DIALYSIS Last administered on 05/30/16 09:36; Start 05/14/16 at 14:54 Mannitol (Mannitol Inj) 12.5 gm UNSCH PRN IV WITH DIALYSIS; Start 05/14/16 at 15 :00 Albumin Human (Albumin 25% Inj) 25 gm UNSCH PRN IV WITH DIALYSIS; Start at 15:00 IV Flush (NS Flush) 5 ml UNSCH PRN IVF WITH DIALYSIS; Start 05/14/16 at 15:00 Heparin Sodium (Porcine) (Heparin Inj) UNSCH PRN .XX WITH DIALYSIS Last administered on 06/06/16 15:18; Start 05/14/16 at 15:00 Gentamicin Sulfate (Gentamicin (Dialysis) Inj) 20 mg UNSCH PRN IV WITH DIALYSIS Last administered on 06/06/16 15:17; Start 05/14/16 at 15:00 Ondansetron HCl (Zofran Inj) 4 mg UNSCH PRN IV WITH DIALYSIS; Start 05/14/16 at 15:00 Acetaminophen (Tylenol) 650 mg UNSCH PRN PO for headach, pain, temp > 101F Last administered on 05/16/16 09:36; Start 05/14/16 at 15:00; Stop 06/06/16 at 12 :39; Status DC Diphenhydramine HCl (Benadryl) 25 mg UNSCH PRN PO for hives/itching/anaphylaxis ; Start 05/14/16 at 15:00 Nitroglycerin (Nitrostat Sl) 0.4 mg UNSCH PRN SL CHEST PAIN; Start 05/14/16 at 15:00 Clonidine (Catapres) 0.1 mg UNSCH PRN PO for BP > 180/100 X 2 readings; Start 05/14/16 at 15:00 Epoetin Porter (Epogen Inj) 10,000 units UNSCH PRN IV WITH DIALYSIS Last administered on 06/06/16 15:15; Start 05/14/16 at 15:00 Gelatin (Gelfoam 12 Mm/7 Mm Top) 1 foam UNSCH PRN TOP SEE LABEL COMMENTS; Start 05/14/16 at 15:00 Insulin Human Regular (NovoLIN R SUPPLEMENTAL SCALE) 1 ACHS SLIDING SCALE SQ Last administered on 05/18/16 17:26; Start 05/14/16 at 21:00; Stop 05/18/16 at 18:24; Status DC Dextrose (D50w (Vial) Inj) 25 ml UNSCH PRN IV PUSH HYPOGLYCEMIA - SEE COMMENTS ; Start 05/14/16 at 18:45 Glucagon (Glucagon Inj) 1 mg UNSCH PRN OTHER HYPOGLYCEMIA-SEE COMMENTS; Start 05/14/16 at 18:45 Sodium Hypochlorite (Dakin'S 0.125% Soln) 120 ml DAILY OTHER Last administered on 05/31/16 08:18; Start 05/17/16 at 15:00; Stop 06/05/16 at 16:32; Status DC Collagenase (Santyl Oint) 1 applic DAILY EXT Last administered on 06/07/16 08: 12; Start 05/17/16 at 15:00 Furosemide (Lasix Inj) 40 mg UNSCH X1 IV PUSH ; Start 05/16/16 at 17:30; Stop at 03:00; Status DC Diatrizoate Meglum/ Diatrizoate Sod ( Gastroview Liq) 18 ml ONCE ONCE PO ; Start 05/16/16 at 18:45; Stop 05/16/16 at 19:23; Status DC Diatrizoate Meglum/ Diatrizoate Sod ( Gastroview Liq) 18 ml ONCE ONCE PO ; Start 05/17/16 at 08:00; Stop 05/17/16 at 08:01; Status DC Lorazepam 1 mg 1 mg ONCE ONCE IV PUSH Last administered on 05/16/16 23:51; Start 05/16/16 at 23:00; Stop 05/16/16 at 23:03; Status DC Piperacillin Sod/ Tazobactam Sod (Zosyn 2.25 Gm Premix) 50 ml @ 100 mls/hr Q8H IV Last administered on 05/22/16 09:38; Start 05/17/16 at 01:00; Stop at 12:27; Status DC Bupivacaine HCl (Marcaine Pf 0.5% Inj) 30 ml STK-MED ONCE .ROUTE ; Start at 15:51; Stop 05/17/16 at 15:52; Status DC Bupivacaine HCl/ Epinephrine Bitart (Sensorcaine-Epi 0.5% 50 ml Inj) 50 ml STK- MED ONCE .ROUTE Last administered on 05/17/16 17:57; Start 05/17/16 at 15:52; Stop 05/17/16 at 15:53; Status DC Bacitracin (Baciguent Oint) 15 applic STK-MED ONCE .ROUTE ; Start 05/17/16 at 15 :52; Stop 05/17/16 at 15:53; Status DC Lidocaine/ Epinephrine (Xylocaine-Epi 1%-1:100,000 Inj) 50 ml STK-MED ONCE .ROUTE ; Start 05/17/16 at 15:53; Stop 05/17/16 at 15:54; Status DC Epinephrine HCl (Adrenalin (1:1000) Inj) 2 mg STK-MED ONCE .ROUTE Last administered on 05/17/16 17:57; Start 05/17/16 at 16:58; Stop 05/17/16 at 16:59 ; Status DC Lidocaine/ Epinephrine (Xylocaine-Epi 1%-1:100,000 Inj) 50 ml STK-MED ONCE .ROUTE ; Start 05/17/16 at 16:58; Stop 05/17/16 at 16:59; Status DC Miscellaneous Information ALL NURSING DEPARTME... UNSCH PRN XX SEE LABEL COMMENTS; Start 05/17/16 at 19:30; Stop 05/18/16 at 19:29; Status DC Fentanyl Citrate (fentaNYL INJ) 250 mcg STK-MED ONCE .ROUTE ; Start 05/17/16 at 19:21; Stop 05/17/16 at 19:22; Status DC Morphine Sulfate (Morphine Inj) 4 mg STK-MED ONCE .ROUTE ; Start 05/17/16 at 19: 55; Stop 05/17/16 at 19:56; Status DC Insulin Detemir (Levemir Inj) 30 units Q12H SQ Last administered on 05/22/16 18:17; Start 05/18/16 at 18:00; Stop 05/23/16 at 11:55; Status DC Insulin Aspart (NovoLOG SUPPLEMENTAL SCALE) 1 ACHS SLIDING SCALE SQ Last administered on 06/07/16 11:11; Start 05/18/16 at 21:00 Acetaminophen/ Hydrocodone Bitart ([place] 10-325 Mg) 1 tab Q4HR PRN PO PAIN 1-5 Last administered on 06/06/16 12:24; Start 05/19/16 at 20:00; Stop 06/06/16 at 17:08; Status DC Propofol (Diprivan 200 Mg/20 ml Inj) 200 mg STK-MED ONCE IV ; Start 05/17/16 at 12:00; Stop 05/20/16 at 11:33; Status DC Ondansetron HCl 4 mg 4 mg STK-MED ONCE IV PUSH ; Start 05/17/16 at 12:00; Stop 05/20/16 at 11:33; Status DC Parenteral Electrolytes (Normosol R Inj) 1,000 ml @ As Directed STK-MED ONCE IV ; Start 05/17/16 at 12:00; Stop 05/20/16 at 11:33; Status DC Lactulose 30 ml 30 ml ONCE ONCE PO ; Start 05/20/16 at 18:00; Stop 05/20/16 at 18:01; Status DC Cefepime HCl/ Sodium Chloride (Maxipime Inj/NS Inj) 100 ml @ 200 mls/hr DAILY IV Last administered on 06/07/16 08:12; Start 05/22/16 at 13:00 Acetaminophen/ Hydrocodone Bitart ([place] 5-325 Mg) 1 tab Q4H PRN PO Breakthrough pain/ dressings Last administered on 06/05/16 18:15; Start at 12:00 Insulin Detemir (Levemir Inj) 30 units DAILY SQ Last administered on 06/07/16 08:13; Start 05/24/16 at 09:00 Insulin Detemir (Levemir Inj) 20 units HS SQ Last administered on 06/06/16 20: 05; Start 05/23/16 at 21:00 Silver Nitrate/ Potassium Nitrate (Silver Nitrate Applicators) 1 appl ONCE ONCE TOPICAL ; Start 05/24/16 at 13:15; Stop 05/24/16 at 13:16; Status DC Non-Formulary Medication LIDOCAINE 2% WITH EPINEPHRINE 1:200,... ONCE ONCE OTHER ; Start 05/24/16 at 18:30; Stop 05/24/16 at 18:31; Status DC Sodium Bicarbonate (Sodium Bicarbonate 8.4% Inj) 50 meq ONCE ONCE IV PUSH ; Start 05/24/16 at 18:30; Stop 05/24/16 at 18:32; Status DC Acetaminophen/ Hydrocodone Bitart ([place] 10-325 Mg) 1 tab ONCE ONCE PO Last administered on 05/25/16 12:46; Start 05/25/16 at 10:30; Stop 05/25/16 at 10:37 ; Status DC Midazolam HCl (Versed Inj) 2 mg STK-MED ONCE .ROUTE ; Start 05/26/16 at 07:31; Stop 05/26/16 at 07:32; Status DC Fentanyl Citrate (fentaNYL INJ) 250 mcg STK-MED ONCE .ROUTE ; Start 05/26/16 at 07:31; Stop 05/26/16 at 07:32; Status DC Acetaminophen (Ofirmev Inj) 1,000 mg STK-MED ONCE IV ; Start 05/26/16 at 07:44; Stop 05/26/16 at 07:49; Status DC Lidocaine/ Epinephrine (Xylocaine-Epi 1%-1:100,000 Inj) 30 ml STK-MED ONCE INFIL Last administered on 05/26/16 08:14; Start 05/26/16 at 08:14; Stop 05/26 at 08:23; Status DC Morphine Sulfate (*morphine INJ PERIprocedure ONLY) 8 mg STK-MED ONCE .ROUTE Last administered on 05/26/16 09:12; Start 05/26/16 at 09:11; Stop 05/26/16 at 09:12; Status DC Miscellaneous Information ALL NURSING DEPARTME... UNSCH PRN XX SEE LABEL COMMENTS; Start 05/26/16 at 09:30; Stop 05/27/16 at 09:29; Status DC Senna/Docusate Sodium (Luciana-Colace) 1 tab BID PO Last administered on 08:12; Start 05/26/16 at 21:00 Propofol (Diprivan 200 Mg/20 ml Inj) 200 mg STK-MED ONCE IV ; Start 05/26/16 at 12:00; Stop 05/27/16 at 10:52; Status DC Ondansetron HCl 4 mg 4 mg STK-MED ONCE IV PUSH ; Start 05/26/16 at 12:00; Stop 05/27/16 at 10:52; Status DC Lactated Ringer's (Lr 1000 ml Inj) 1,000 ml @ As Directed STK-MED ONCE IV ; Start 05/26/16 at 12:00; Stop 05/27/16 at 10:52; Status DC Ephedrine Sulfate (ePHEDrine/NS 25 MG/5 ML SYR) 25 mg STK-MED ONCE IV ; Start at 12:00; Stop 05/27/16 at 10:52; Status DC Neostigmine Methylsulfate 3 mg 3 mg STK-MED ONCE IV ; Start 05/26/16 at 12:00; Stop 05/27/16 at 10:52; Status DC Sodium Chloride 1,000 ml @ 50 mls/hr Q20H IV Last administered on 05/27/16 12 :53; Start 05/27/16 at 12:45; Stop 05/27/16 at 17:44; Status DC Iron Sucrose 50 mg/Sodium Chloride 102.5 ml @ 105 mls/hr ONCE ONCE IV ; Start 05/28/16 at 12:00; Stop 05/28/16 at 12:58; Status DC Magnesium Sulfate/ Dextrose (Magnesium Sulfate 1 Gm Premix) 100 ml @ 100 mls/ hr ONCE ONCE IV Last administered on 05/28/16 18:09; Start 05/28/16 at 18:00 ; Stop 05/28/16 at 18:59; Status DC Iron Sucrose 50 mg 50 mg ONCE ONCE IV PUSH Last administered on 05/30/16 12: 25; Start 05/30/16 at 12:00; Stop 05/30/16 at 12:01; Status DC Sodium Thiosulfate/ Sterile Water (Sodium Thiosulfate Inj/ Sterile Water For Inj ) 150 ml @ 150 mls/hr WITH DIALYSIS PRN IV calciphylaxis Last administered on 06/06/16 15:14; Start 06/01/16 at 17:30 Cinacalcet (Sensipar) 30 mg DAILY PO Last administered on 06/07/16 08:12; Start 06/02/16 at 09:00 Miscellaneous Information Patient in critical care unit? Ass... [id number] Last administered on 06/02/16 00:15; Start 06/02/16 at 00:15 Chlorhexidine Gluconate (Chlorhexidine 2% Cloth) 3 pack DAILY@04 TOP Last administered on 06/02/16 00:22; Start 06/02/16 at 04:00; Stop 06/06/16 at 04:01 ; Status DC Chlorhexidine Gluconate (Chlorhexidine 2% Cloth) 3 pack UNSCH PRN TOP HYGIENIC CARE; Start 06/02/16 at 00:15; Stop 06/07/16 at 00:02; Status DC Sevelamer Carbonate (Renvela) 1,600 mg TID PO Last administered on 06/07/16 11 :11; Start 06/03/16 at 13:00 Morphine Sulfate (Morphine Inj) 2 mg ONCE ONCE IV PUSH Last administered on 22:30; Start 06/03/16 at 22:30; Stop 06/03/16 at 22:31; Status DC Hydromorphone HCl (Dilaudid Pf Inj) 1 mg Q4H PRN IV PUSH PAIN 6-10 Last administered on 06/04/16 06:05; Start 06/03/16 at 23:45; Stop 06/04/16 at 09:27 ; Status DC Hydromorphone HCl (Dilaudid Pf Inj) 2 mg Q4H PRN IV PUSH PAIN 6-10 Last administered on 06/06/16 08:16; Start 06/04/16 at 11:45; Stop 06/06/16 at 14:55 ; Status DC Morphine Sulfate (Oramorph Sr) 15 mg Q12HR PO Last administered on 06/07/16 08 :12; Start 06/05/16 at 09:30 Povidone Iodine (Betadine 10% Top Soln) 1 applic BID TOPICAL Last administered on 06/07/16 08:13; Start 06/05/16 at 21:00 Hydromorphone HCl (Dilaudid) 8 mg Q4HR PRN PO PAIN SCALE 1 TO 10 Last administered on 06/06/16 04:12; Start 06/05/16 at 23:00; Stop 06/06/16 at 08:00 ; Status DC Lidocaine/ Epinephrine (Xylocaine-Epi 1%-1:100,000 Inj) 30 ml STK-MED ONCE .ROUTE ; Start 06/06/16 at 08:45; Stop 06/06/16 at 08:46; Status DC Hydromorphone HCl (Dilaudid Pf Inj) 2 mg Q4H PRN IV PUSH PAIN 1-6 Last administered on 06/07/16 03:38; Start 06/06/16 at 14:55 Acetaminophen/ Hydrocodone Bitart ([place] 5-325 Mg) 1 tab Q4H PRN PO PAIN SCALE 1 TO 5; Start 06/06/16 at 17:15 Acetaminophen/ Hydrocodone Bitart ([place] 10-325 Mg) 1 tab Q4H PRN PO PAIN SCALE 6 TO 10 Last administered on 06/07/16 10:24; Start 06/06/16 at 17:15 A/P Assessment and Plan Sepsis due to infected wound on abdomen, cellulitis, also has wound and ulcerations on right hip - per nephrology, 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 -Cultures grew Pseudomonas. Patient on cefepime per ID and per ID can stop cefepime which was not d/c. Will d/c cefepime. - wound care per surgery. S/p debridement 05/26. -Right hip wound is worsening as per photos. --Status post skin biopsy on 06/06/[address] Meyers. -per nephrology - sodium Thiosulfate with HD -Pain uncontrolled so increase morphine SR 30 mg by mouth twice a day. norco PRN for breakthrough pain. patient told need to wean off IV pain medication. Morbid Obesity BMI 56. -s/p lap band. - the pt agrees with lifestyle modifications. DM II -A1c 6.8%. Glucose well controlled 05/28. - cont Levemir to 30 units daily, 20 units HS. Adjust as needed. - insulin sliding scale. ESRD -On Hemodialysis //Fri. - dialysis per nephrology. Anemia of chronic disease. -Due to CKD. -Continue to monitor. Chronic low back pain and chronic pain syndrome -Controlled. -Exacerbated by wounds. DVT prophylaxis with Heparin every 12 hours. Discharge Planning pending biopsy for final recommendations. Suzi Denton MD Jun 07, 2016 12:20
[2016-06-07 16:00] VITALS: BP 118/52; PULSE 81; RESP 17; TEMP 99.5; O2SAT 92
[2016-06-07 18:30] VITALS: PULSE 80
[2016-06-07 20:00] VITALS: BP 114/60; PULSE 86; RESP 20; TEMP 98.8; O2SAT 95
[2016-06-07] MEDS: ATORVASTATIN 80 MG TAB PO SCH (20:33)
[2016-06-07] MEDS: MORPHINE SULFATE 30 MG CONTROLLED RELEASE TAB PO SCH (20:33)
[2016-06-08] VITALS (8 sets, daily range): BP systolic 93–122; BP diastolic 42–64; PULSE 70–87; RESP 16–20; TEMP 97.2–99.8; O2SAT 92–100
[2016-06-08] MEDS: ACETAMINOPHEN/HYDROcodone 325 MG/10 MG TAB PO PRN ×3 (01:52→17:44)
[2016-06-08] MEDS: LEVOTHYROXINE SODIUM 150 MCG TAB PO SCH (05:22)
[2016-06-08] MEDS: HIGH DOSE INSULIN NOVOLOG SUPPLEMENTAL SCALE SQ SCH ×4 (05:22→19:47)
[2016-06-08] MEDS: HEPARIN SODIUM - SQ 10,000 UNITS/ML VIAL SQ SCH ×2 (05:22→17:24)
[2016-06-08] MEDS: POVIDONE IODINE 10% SOLN 480 ML BTL TOPICAL SCH ×2 (09:00→19:56)
[2016-06-08] MEDS: INSULIN DETEMIR 100 UNITS/ML VIAL SQ SCH ×2 (09:00→19:47)
[2016-06-08] MEDS: SODIUM CHLORIDE 0.9% FLUSH 5 ML FLUSH FLUSH SCH ×2 (09:00→19:46)
--- NOTE | 2016-06-08 10:19 | HHI.NPPN ---
Subjective History of Present Illness 55-year-old female known to me from before with past medical history of diabetes mellitus, history of morbid obesity, end-stage renal disease on hemodialysis three times per week, history of chronic anemia, congestive heart failure, spinal stenosis, chronic back pain, hypothyroidism who came to the hospital with complaint of worsening lower abdominal wound. I was called to see the patient for the management of dialysis. The patient has been on hemodialysis Friday, and Friday. Additional Remarks Patient is alert, now on HD, BP on lower side, pain is better. Review of Systems General Constitutional: Fatigue Respiratory Lungs: SOB Cardiovascular Cardiac: GRIFFIN Objective Data Data 06/07/16 06/08/16 19:00 07:00 Intake Total 700 ml 360 ml Output Total 50 ml Balance 650 ml 360 ml Intake Oral 600 ml 360 ml IV Total 100 ml 0 ml Drainage Total 50 ml # Voids 2 Vital Signs Date Time Temp Pulse Resp B/P Pulse Ox O2 Delivery O2 Flow Rate FiO2 06/08/16 08:00 97.2 70 19 103/42 92 06/08/16 04:00 98.0 76 20 101/54 93 06/08/16 00:00 98.7 84 20 116/62 96 06/07/16 20:00 98.8 86 20 114/60 95 06/07/16 18:30 80 06/07/16 16:00 99.5 81 17 118/52 92 06/07/16 12:00 99.4 85 18 124/55 98 -: 06/04/16 0339 06/04/16 0339 Physical Exam General Appearance: No Acute Distress, Comfortable Eyes Eye Exam: Pupils Equal Throat Throat Exam: Oral Mucosa [place] & Moist Neck Neck Exam: Neck Supple Pulmonary Resp Exam: Breath Sounds Equal, Crackles, Decreased Bases, Diminished Breath Sounds Gastrointestinal/Abdomen GI Exam: Soft, Non-Tender, Distended Extremeties Extremities Exam: Moderate Edema, Pitting Edema, Dependent Edema Neurologic Neuro Exam: Alert, Awake, Oriented Psychiatric Psych Exam: Appropriate Responses Assessment/Plan Assessment Summary: Anemia of CKD, Hypertension, End Stage Renal Disease Problem List: (1) Anemia in chronic kidney disease (CKD) (2) Open wound of abdomen (3) Chronic stasis dermatitis (4) End stage kidney disease Plan Now on Cefepime. Continue the wound care. ID is following. 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 Seen by plastic surgery and had debridement of Rt. buttock area. Also has debridement of abd. wound done. Now with wound Vac. Post skin Biopsy and started on Na. Thiosulfate treatment and Sensipar. On Renvela. skin Biopsy done, follow the results. Has asterixis, doing HD, 4 hrs. now and for next 1 week. Problem Qualifiers (1) Open wound of abdomen: Qualified Code: S31.109A - Open wound of abdomen, initial encounter Valentin Jimenez MD Jun 08, 2016 10:19
[2016-06-08] MEDS: SEVELAMER CARBONATE 800 MG TAB PO SCH ×3 (13:00→17:43)
[2016-06-08] MEDS: HEPARIN SODIUM - IV 10,000 UNITS/10 ML VIAL PRN (13:21)
[2016-06-08] MEDS: GENTAMICIN SULFATE (DIALYSIS USE ONLY) 20 MG/2 ML VIAL IV PRN (13:21)
[2016-06-08] MEDS: EPOETIN ALFA 10,000 UNITS/ML VIAL IV PRN (13:21)
[2016-06-08] MEDS: SODIUM THIOSULFATE INJ 12,500 MG in WATER STERILE FOR INJ 100 ML IV PRN (13:22)
[2016-06-08] MEDS: ASPIRIN EC 81 MG TABEC PO SCH (14:14)
[2016-06-08] MEDS: DOCUSATE SODIUM 50 MG/SENNA 8.6 MG TAB PO SCH ×2 (14:14→19:47)
[2016-06-08] MEDS: CALCITRIOL 0.25 MCG CAP PO SCH (14:14)
[2016-06-08] MEDS: GABAPENTIN 100 MG CAP PO SCH ×2 (14:14→19:47)
[2016-06-08] MEDS: CINACALCET HYDROCHLORIDE 30 MG TAB PO SCH (14:15)
[2016-06-08] MEDS: MORPHINE SULFATE 30 MG CONTROLLED RELEASE TAB PO SCH ×2 (14:15→22:04)
[2016-06-08] MEDS: FLUoxetine HCL 20 MG CAP PO SCH (14:15)
[2016-06-08] MEDS: COLLAGENASE OINT 30 GM TUBE EXT SCH (14:17)
[2016-06-08] MEDS ORDERED: MORPHINE SULFATE 4 MG/ML INJ IV PUSH PRN (15:15)
--- NOTE | 2016-06-08 15:23 | HHI.PR ---
Subjective Remarks The patient says the pain was poorly controlled. She says she needed something more frequently than what she was getting. She says the left side of her stomach is hurting her and she is worried that it will turn into what is going on with her right side. 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 Family at the bedside. Objective Vitals Vital Signs Date Time Temp Pulse Resp B/P Pulse Ox O2 Delivery O2 Flow Rate FiO2 06/08/16 14:21 99.8 84 19 100/64 96 06/08/16 08:00 97.2 70 19 103/42 92 06/08/16 04:00 98.0 76 20 101/54 93 06/08/16 00:00 98.7 84 20 116/62 96 06/07/16 20:00 98.8 86 20 114/60 95 06/07/16 18:30 80 06/07/16 16:00 99.5 81 17 118/52 92 I/O 06/07/16 06/07/16 06/07/16 06/08/16 06/08/16 06/08/16 07:00 15:00 23:00 07:00 15:00 23:00 Intake Total 360 ml 700 ml 240 ml 120 ml Output Total 50 ml 3590 ml Balance 360 ml 650 ml 240 ml 120 ml -3590 ml Intake Oral 360 ml 600 ml 240 ml 120 ml IV Total 100 ml 0 ml 0 ml Drainage Total 50 ml 90 ml Hemodialysis 3500 ml # Voids 1 1 1 Result Diagram: 06/04/16 0339 06/04/16 0339 Imaging Last Impressions Chest X-Ray 05/27/16 0000 Signed Impressions: Service Date/Time: Friday, May 27, 2016 09:26 - CONCLUSION: 1. Borderline prominent but well compensated heart. 2. No acute cardiopulmonary process. Dane Raymond MD Objective Remarks GENERAL: Pleasant, morbidly obese female patient. HEENT: NC, AT. CARDIOVASCULAR: Regular rate and rhythm without murmurs, gallops, or rubs. RESPIRATORY: Breath sounds equal bilaterally. No accessory muscle use. GASTROINTESTINAL: Obese over hanging pannus. Wound VAC in place over lower abdomen. Abdomen soft, non-tender, nondistended. Band-Aid on wound that was just biopsied. EXTREMITIES: Chronic pedal edema. Brownish discoloration with an odor of B/L lower extremity. PSYCH: Mood and affect appropriate. Procedures I&D Debridement skin biopsy on 06/06 Medications and IVs Current Medications Medications (Trade) Dose Ordered Sig/Soren Route Start Time Stop Time Status Last Admin (Norvasc) 5 mg BID PO 05/14/16 21:00 Hold 05/26/16 21:07 (Ecotrin Ec) 81 mg DAILY PO 05/15/16 09:00 06/08/16 14:14 (Tenormin) 50 mg BID PO 05/14/16 21:00 Hold 05/26/16 21:07 (Lipitor) 80 mg HS PO 05/14/16 21:00 06/07/16 20:33 (Prinivil) 20 mg BID PO 05/14/16 21:00 Hold 05/26/16 21:15 (Rocaltrol) 0.5 mcg DAILY PO 05/15/16 09:00 06/08/16 14:14 (PROzac) 20 mg DAILY PO 05/15/16 09:00 06/08/16 14:15 (Neurontin) 100 mg BID PO 05/14/16 21:00 06/08/16 14:14 (Synthroid) 300 mcg DAILY@0600 PO 05/15/16 06:00 06/08/16 05:22 (Antivert) 25 mg TID PRN PO 05/14/16 14:15 (Zanaflex) 4 mg TID PRN PO 05/14/16 14:15 06/07/16 23:13 (NS Flush) 2 ml UNSCH PRN FLUSH 05/14/16 14:30 05/28/16 18:09 (NS Flush) 2 ml BID FLUSH 05/14/16 21:00 06/08/16 09:00 (Zofran Inj) 4 mg Q6H PRN IVP 05/14/16 14:30 (Reglan Inj) 5 mg Q6H PRN IV PUSH 05/14/16 14:30 (Dulcolax Supp) 10 mg DAILY PRN MA 05/14/16 14:30 (Heparin Inj) 5,000 units Q12H SQ 05/14/16 16:00 06/08/16 05:22 Naloxone HCl 0.4 mg 0.4 mg UNSCH PRN IV 05/14/16 14:30 (NS 1000 ml Inj) 1,000 ml @ 0 mls/hr Q0M PRN IV 05/14/16 14:54 06/06/16 15:17 Heparin Sodium (Porcine) 8000 units 8,000 units UNSCH PRN IVF 05/14/16 15:00 (NS 1000 ml Inj) 1,000 ml @ 0 mls/hr Q0M PRN IV 05/14/16 14:54 05/30/16 09:36 (Mannitol Inj) 12.5 gm UNSCH PRN IV 05/14/16 15:00 (Albumin 25% Inj) 25 gm UNSCH PRN IV 05/14/16 15:00 (NS Flush) 5 ml UNSCH PRN IVF 05/14/16 15:00 (Heparin Inj) UNSCH PRN .XX 05/14/16 15:00 06/08/16 13:21 (Gentamicin (Dialysis) Inj) 20 mg UNSCH PRN IV 05/14/16 15:00 06/08/16 13:21 (Zofran Inj) 4 mg UNSCH PRN IV 05/14/16 15:00 (Benadryl) 25 mg UNSCH PRN PO 05/14/16 15:00 (Nitrostat Sl) 0.4 mg UNSCH PRN SL 05/14/16 15:00 (Catapres) 0.1 mg UNSCH PRN PO 05/14/16 15:00 (Epogen Inj) 10,000 units UNSCH PRN IV 05/14/16 15:00 06/08/16 13:21 (Gelfoam 12 Mm/7 Mm Top) 1 foam UNSCH PRN TOP 05/14/16 15:00 (D50w (Vial) Inj) 25 ml UNSCH PRN IV PUSH 05/14/16 18:45 (Glucagon Inj) 1 mg UNSCH PRN OTHER 05/14/16 18:45 (Santyl Oint) 1 applic DAILY EXT 05/17/16 15:00 06/08/16 14:17 ([place] 5-325 Mg) 1 tab Q4H PRN PO 05/23/16 12:00 06/05/16 18:15 (Levemir Inj) 30 units DAILY SQ 05/24/16 09:00 06/07/16 08:13 (Levemir Inj) 20 units HS SQ 05/23/16 21:00 06/07/16 20:34 (Luciana-Colace) 1 tab BID PO 05/26/16 21:00 06/08/16 14:14 (Sensipar) 30 mg DAILY PO 06/02/16 09:00 06/08/16 14:15 Miscellaneous Information Patient in critical care unit? Ass... Q361D XX 06/02/16 00:15 06/02/16 00:15 (Renvela) 1,600 mg TID PO 06/03/16 13:00 06/08/16 14:15 (Betadine 10% Top Soln) 1 applic BID TOPICAL 06/05/16 21:00 06/07/16 20:55 ([place] 5-325 Mg) 1 tab Q4H PRN PO 06/06/16 17:15 ([place] 10-325 Mg) 1 tab Q4H PRN PO 06/06/16 17:15 06/08/16 08:58 (Oramorph Sr) 30 mg Q12HR PO 06/07/16 21:00 06/08/16 14:15 A/P Assessment and Plan Sepsis/Abdominal pannus/ Wound cellulitis and ulcer General surgery and plastic surgery following. Started on vancomycin and Zosyn. Cultures growing pseudomonas. ID following. S/p cefepime. 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 - continue cefepime and follow up with ID. - wound care per surgery. S/p debridement 05/26. - physical therapy. Add occupational therapy. - incentive spirometry. - Status post skin biopsy on 06/06/[address] Meyers. Follow pathology. - per nephrology - sodium Thiosulfate with HD. - pain control with a bowel regimen. Morbid Obesity BMI 65. The pt says she had a lap band in the past. - the pt agrees with lifestyle modifications. DM II A1c 6.8%. Glucose well controlled 06/08. - changed Levemir to 30 units daily, 20 units HS. Adjust as needed. - insulin sliding scale. ESRD On Hemodialysis //Fri. - dialysis per nephrology. Chronic low back pain and chronic pain syndrome Exacerbated by wounds. - pain control with a bowel regimen. DVT prophylaxis with Heparin every 12 hours. Discharge Planning Awaiting clinical improvement and biopsy results. Jacoby Sanchez DO Jun 08, 2016 15:23
[2016-06-08] MEDS ORDERED: LORazepam 2 MG/ML VIAL IV ONE (19:15)
--- NOTE | 2016-06-08 19:45 | RADRPT ---
EXAM DATE/TIME: 06/08/2016 19:03 [facility] COMPARISON: CHEST SINGLE AP, May 27, 2016, 9:26. INDICATIONS : Shortness of breath. MEDICAL HISTORY : Hypertension. Diabetes mellitus type II. SURGICAL HISTORY : None. ENCOUNTER: Subsequent ACUITY: 2 weeks PAIN SCORE: 0/10 LOCATION: chest FINDINGS: A single view of the chest demonstrates the lungs to be symmetrically aerated without evidence of mas s, infiltrate or effusion. The cardiomediastinal contours are unremarkable. Degenerative changes in thoracic spine. Double-lumen right central line tip remains projected in the right atrium.. CONCLUSION: The lungs are clear. No evidence of pneumothorax. Len Benz MD on June 08, 2016 at 19:43 Board Certified Radiologist. This report was verified electronically.
[2016-06-08] MEDS: ATORVASTATIN 80 MG TAB PO SCH (19:47)
[2016-06-09] VITALS (7 sets, daily range): BP systolic 92–165; BP diastolic 40–86; PULSE 77–86; RESP 17–20; TEMP 97.4–99.3; O2SAT 94–100
[2016-06-09] MEDS: LEVOTHYROXINE SODIUM 150 MCG TAB PO SCH (04:53)
[2016-06-09] MEDS: HEPARIN SODIUM - SQ 10,000 UNITS/ML VIAL SQ SCH ×2 (04:53→17:54)
[2016-06-09] MEDS: HIGH DOSE INSULIN NOVOLOG SUPPLEMENTAL SCALE SQ SCH ×4 (04:54→20:02)
[2016-06-09] MEDS: ACETAMINOPHEN/HYDROcodone 325 MG/10 MG TAB PO PRN (04:54)
[2016-06-09 05:20] LABS: HEMATOCRIT 23.3 % (35.0-46.0); MEAN CELL VOLUME 79.1 FL (80.0-100.0); MEAN CORPUSCULAR HEMOGLOBIN 24.3 PG (27.0-34.0); MEAN CORPUSCULAR HGB CONC 30.7 % (32.0-36.0); PLATELET COUNT 380 TH/MM3 (150-450); RED BLOOD COUNT 2.95 MIL/MM3 (4.00-5.30); RED CELL DISTRIBUTION WIDTH 21.2 % (11.6-17.2); WHITE BLOOD COUNT 16.3 TH/MM3 (4.0-11.0)
[2016-06-09 05:27] LABS: REVIEW FLAG FINAL
[2016-06-09 05:44] LABS: BICARBONATE 29.9 MEQ/L (21.0-32.0); MAGNESIUM 1.8 MG/DL (1.5-2.5); POTASSIUM 3.4 MEQ/L (3.5-5.1)
[2016-06-09] MEDS: POVIDONE IODINE 10% SOLN 480 ML BTL TOPICAL SCH ×2 (09:00→20:02)
[2016-06-09] MEDS: SODIUM CHLORIDE 0.9% FLUSH 5 ML FLUSH FLUSH SCH ×2 (09:00→20:01)
[2016-06-09] MEDS: CALCITRIOL 0.25 MCG CAP PO SCH (09:17)
[2016-06-09] MEDS: ASPIRIN EC 81 MG TABEC PO SCH (09:17)
[2016-06-09] MEDS: FLUoxetine HCL 20 MG CAP PO SCH (09:17)
[2016-06-09] MEDS: SEVELAMER CARBONATE 800 MG TAB PO SCH ×3 (09:18→17:54)
[2016-06-09] MEDS: MORPHINE SULFATE 30 MG CONTROLLED RELEASE TAB PO SCH (09:18)
[2016-06-09] MEDS: CINACALCET HYDROCHLORIDE 30 MG TAB PO SCH (09:18)
[2016-06-09] MEDS: GABAPENTIN 100 MG CAP PO SCH ×2 (09:18→20:01)
[2016-06-09] MEDS: DOCUSATE SODIUM 50 MG/SENNA 8.6 MG TAB PO SCH ×2 (09:18→20:01)
[2016-06-09] MEDS: INSULIN DETEMIR 100 UNITS/ML VIAL SQ SCH ×2 (09:19→20:02)
[2016-06-09] MEDS: COLLAGENASE OINT 30 GM TUBE EXT SCH (09:36)
--- NOTE | 2016-06-09 10:43 | HHI.PR ---
Subjective Remarks The patient was very frustrated about her current situation. She said she has a hard time feeding herself. She is noticing tremors in her upper and lower extremities that she is very concerned about. She would like somebody to talk to about her goals of care. Family was at the bedside. Objective Vitals Vital Signs Date Time Temp Pulse Resp B/P Pulse Ox O2 Delivery O2 Flow Rate FiO2 06/09/16 08:00 97.8 77 17 93/40 95 06/09/16 04:00 97.6 81 20 165/72 95 06/09/16 00:00 98.4 77 20 159/86 95 06/08/16 20:08 86 06/08/16 20:00 98.4 87 20 98/44 100 06/08/16 17:43 79 16 122/62 94 06/08/16 16:00 99.3 83 20 93/48 94 06/08/16 14:21 99.8 84 19 100/64 96 I/O 06/08/16 06/08/16 06/08/16 06/09/16 06/09/16 06/09/16 07:00 15:00 23:00 07:00 15:00 23:00 Intake Total 120 ml 200 ml 720 ml 120 ml Output Total 3590 ml 150 ml Balance 120 ml -3390 ml 720 ml -30 ml Intake Oral 120 ml 200 ml 720 ml 120 ml IV Total 0 ml 0 ml 0 ml Drainage Total 90 ml 150 ml Hemodialysis 3500 ml # Voids 1 0 2 1 # Bowel Movements 0 Result Diagram: 06/09/16 0420 06/09/16 0420 Imaging Last Impressions Chest X-Ray 06/08/16 0000 Signed Impressions: Service Date/Time: Wednesday, June 08, 2016 19:03 - CONCLUSION: The lungs are clear. No evidence of pneumothorax. Len Benz MD Objective Remarks GENERAL: Pleasant, morbidly obese female patient. HEENT: NC, AT. CARDIOVASCULAR: Regular rate and rhythm without murmurs, gallops, or rubs. RESPIRATORY: Breath sounds equal bilaterally. No accessory muscle use. GASTROINTESTINAL: Obese over hanging pannus. Wound VAC in place over lower abdomen. Abdomen soft, non-tender, nondistended. Band-Aid on wound that was just biopsied. EXTREMITIES: Chronic pedal edema. Brownish discoloration with an odor of B/L lower extremity. PSYCH: Teary-eyed. Procedures I&D Debridement Skin biopsy on 06/06 Medications and IVs Current Medications Medications (Trade) Dose Ordered Sig/Soren Route Start Time Stop Time Status Last Admin (Norvasc) 5 mg BID PO 05/14/16 21:00 Hold 05/26/16 21:07 (Ecotrin Ec) 81 mg DAILY PO 05/15/16 09:00 06/09/16 09:17 (Tenormin) 50 mg BID PO 05/14/16 21:00 Hold 05/26/16 21:07 (Lipitor) 80 mg HS PO 05/14/16 21:00 06/08/16 19:47 (Prinivil) 20 mg BID PO 05/14/16 21:00 Hold 05/26/16 21:15 (Rocaltrol) 0.5 mcg DAILY PO 05/15/16 09:00 06/09/16 09:17 (PROzac) 20 mg DAILY PO 05/15/16 09:00 06/09/16 09:17 (Neurontin) 100 mg BID PO 05/14/16 21:00 06/09/16 09:18 (Synthroid) 300 mcg DAILY@0600 PO 05/15/16 06:00 06/09/16 04:53 (Antivert) 25 mg TID PRN PO 05/14/16 14:15 (Zanaflex) 4 mg TID PRN PO 05/14/16 14:15 06/07/16 23:13 (NS Flush) 2 ml UNSCH PRN FLUSH 05/14/16 14:30 05/28/16 18:09 (NS Flush) 2 ml BID FLUSH 05/14/16 21:00 06/09/16 09:00 (Zofran Inj) 4 mg Q6H PRN IVP 05/14/16 14:30 (Reglan Inj) 5 mg Q6H PRN IV PUSH 05/14/16 14:30 (Dulcolax Supp) 10 mg DAILY PRN [place] 05/14/16 14:30 (Heparin Inj) 5,000 units Q12H SQ 05/14/16 16:00 06/09/16 04:53 Naloxone HCl 0.4 mg 0.4 mg UNSCH PRN IV 05/14/16 14:30 (NS 1000 ml Inj) 1,000 ml @ 0 mls/hr Q0M PRN IV 05/14/16 14:54 06/06/16 15:17 Heparin Sodium (Porcine) 8000 units 8,000 units UNSCH PRN IVF 05/14/16 15:00 (NS 1000 ml Inj) 1,000 ml @ 0 mls/hr Q0M PRN IV 05/14/16 14:54 05/30/16 09:36 (Mannitol Inj) 12.5 gm UNSCH PRN IV 05/14/16 15:00 (Albumin 25% Inj) 25 gm UNSCH PRN IV 05/14/16 15:00 (NS Flush) 5 ml UNSCH PRN IVF 05/14/16 15:00 (Heparin Inj) UNSCH PRN .XX 05/14/16 15:00 06/08/16 13:21 (Gentamicin (Dialysis) Inj) 20 mg UNSCH PRN IV 05/14/16 15:00 06/08/16 13:21 (Zofran Inj) 4 mg UNSCH PRN IV 05/14/16 15:00 (Benadryl) 25 mg UNSCH PRN PO 05/14/16 15:00 (Nitrostat Sl) 0.4 mg UNSCH PRN SL 05/14/16 15:00 (Catapres) 0.1 mg UNSCH PRN PO 05/14/16 15:00 (Epogen Inj) 10,000 units UNSCH PRN IV 05/14/16 15:00 06/08/16 13:21 (Gelfoam 12 Mm/7 Mm Top) 1 foam UNSCH PRN TOP 05/14/16 15:00 (D50w (Vial) Inj) 25 ml UNSCH PRN IV PUSH 05/14/16 18:45 (Glucagon Inj) 1 mg UNSCH PRN OTHER 05/14/16 18:45 (Santyl Oint) 1 applic DAILY EXT 05/17/16 15:00 06/09/16 09:36 ([place] 5-325 Mg) 1 tab Q4H PRN PO 05/23/16 12:00 06/05/16 18:15 (Levemir Inj) 30 units DAILY SQ 05/24/16 09:00 06/09/16 09:19 (Levemir Inj) 20 units HS SQ 05/23/16 21:00 06/08/16 19:47 (Luciana-Colace) 1 tab BID PO 05/26/16 21:00 06/09/16 09:18 (Sensipar) 30 mg DAILY PO 06/02/16 09:00 06/09/16 09:18 Miscellaneous Information Patient in critical care unit? Ass... Q361D XX 06/02/16 00:15 06/02/16 00:15 (Renvela) 1,600 mg TID PO 06/03/16 13:00 06/09/16 09:18 (Betadine 10% Top Soln) 1 applic BID TOPICAL 06/05/16 21:00 06/09/16 09:00 ([place] 5-325 Mg) 1 tab Q4H PRN PO 06/06/16 17:15 ([place] 10-325 Mg) 1 tab Q4H PRN PO 06/06/16 17:15 06/09/16 04:54 (Oramorph Sr) 30 mg Q12HR PO 06/07/16 21:00 06/09/16 09:18 (Morphine Inj) 2 mg Q4HR PRN IV PUSH 06/08/16 15:15 06/08/16 18:45 A/P Assessment and Plan Sepsis/Abdominal pannus/ Wound cellulitis and ulcer General surgery and plastic surgery following. Started on vancomycin and Zosyn. Cultures growing pseudomonas. ID following. S/p cefepime. 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 - continue cefepime and follow up with ID. - wound care per surgery. S/p debridement 05/26. - physical therapy. Add occupational therapy. - incentive spirometry. - Status post skin biopsy on 06/06/[address] Meyers. Follow pathology. - per nephrology - sodium Thiosulfate with HD. - pain control with a bowel regimen. Increase Oramorph. - palliative care consult requested. Morbid Obesity BMI 65. The pt says she had a lap band in the past. - the pt agrees with lifestyle modifications. DM II A1c 6.8%. Glucose relatively well controlled 06/09. - changed Levemir to 30 units daily, 20 units HS. Adjust as needed. - insulin sliding scale. ESRD On Hemodialysis /Fri. - dialysis per nephrology. Chronic low back pain and chronic pain syndrome Exacerbated by wounds. - pain control with a bowel regimen. Anxiety The pt had a likely panic attack 06/08. Resolved with Ativan. - Xanax as needed. DVT prophylaxis with Heparin every 12 hours. Discharge Planning Awaiting clinical improvement and biopsy results. Jacoby Sanchez DO Jun 09, 2016 10:43
[2016-06-09] MEDS: POLYETHYLENE GLYCOL 17 GM PKG PO SCH (10:45)
[2016-06-09] MEDS ORDERED: MORPHINE SULFATE 15 MG CONTROLLED RELEASE TAB PO ONE (10:45)
[2016-06-09] MEDS ORDERED: ALPRAZolam 0.25 MG TAB PO PRN (10:45)
--- NOTE | 2016-06-09 11:41 | HHI.NPPN ---
Subjective History of Present Illness 55-year-old female known to me from before with past medical history of diabetes mellitus, history of morbid obesity, end-stage renal disease on hemodialysis three times per week, history of chronic anemia, congestive heart failure, spinal stenosis, chronic back pain, hypothyroidism who came to the hospital with complaint of worsening lower abdominal wound. I was called to see the patient for the management of dialysis. The patient has been on hemodialysis Friday, and Friday. Additional Remarks Patient is alert, no SOB, has anxiety last night, now better. Review of Systems General Constitutional: Fatigue Respiratory Lungs: SOB Cardiovascular Cardiac: GRIFFIN Objective Data Data 06/08/16 06/09/16 19:00 07:00 Intake Total 200 ml 840 ml Output Total 3590 ml 150 ml Balance -3390 ml 690 ml Intake Oral 200 ml 840 ml IV Total 0 ml Drainage Total 90 ml 150 ml Hemodialysis 3500 ml # Voids 0 3 # Bowel Movements 0 Vital Signs Date Time Temp Pulse Resp B/P Pulse Ox O2 Delivery O2 Flow Rate FiO2 06/09/16 08:00 97.8 77 17 93/40 95 06/09/16 04:00 97.6 81 20 165/72 95 06/09/16 00:00 98.4 77 20 159/86 95 06/08/16 20:08 86 06/08/16 20:00 98.4 87 20 98/44 100 06/08/16 17:43 79 16 122/62 94 06/08/16 16:00 99.3 83 20 93/48 94 06/08/16 14:21 99.8 84 19 100/64 96 -: 06/09/16 0420 06/09/16 0420 Physical Exam General Appearance: No Acute Distress, Comfortable Eyes Eye Exam: Pupils Equal Throat Throat Exam: Oral Mucosa [place] & Moist Neck Neck Exam: Neck Supple Pulmonary Resp Exam: Breath Sounds Equal, Crackles, Decreased Bases, Diminished Breath Sounds Gastrointestinal/Abdomen GI Exam: Soft, Non-Tender, Distended Extremeties Extremities Exam: Moderate Edema, Pitting Edema, Dependent Edema Neurologic Neuro Exam: Alert, Awake, Oriented Psychiatric Psych Exam: Appropriate Responses Assessment/Plan Assessment Summary: Anemia of CKD, Hypertension, End Stage Renal Disease Problem List: (1) Anemia in chronic kidney disease (CKD) (2) Open wound of abdomen (3) Chronic stasis dermatitis (4) End stage kidney disease Plan Now on Cefepime. Continue the wound care. ID is following. 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 Seen by plastic surgery and had debridement of Rt. buttock area. Also has debridement of abd. wound done. Now with wound Vac. Post skin Biopsy and started on Na. Thiosulfate treatment and Sensipar. On Renvela. skin Biopsy done, follow the results. HD done yesterday, doing 4 hrs HD for 1 week. Started on Xanax fo anxiety. Problem Qualifiers (1) Open wound of abdomen: Qualified Code: S31.109A - Open wound of abdomen, initial encounter Valentin Jimenez MD Jun 09, 2016 11:41
[2016-06-09] MEDS ORDERED: SOD PHOSPHATE/SOD BIPHOSPHATE (ADULT) ENEMA 133ML RECTAL ONE (17:15)
[2016-06-09] MEDS: ATORVASTATIN 80 MG TAB PO SCH (20:01)
[2016-06-09] MEDS: MORPHINE SULFATE 15 MG CONTROLLED RELEASE TAB PO SCH (20:02)
[2016-06-10] VITALS (10 sets, daily range): BP systolic 99–140; BP diastolic 50–72; PULSE 77–100; RESP 15–20; TEMP 97.1–100.8; O2SAT 91–100
[2016-06-10] MEDS: HIGH DOSE INSULIN NOVOLOG SUPPLEMENTAL SCALE SQ SCH ×4 (05:10→22:04)
[2016-06-10] MEDS: HEPARIN SODIUM - SQ 10,000 UNITS/ML VIAL SQ SCH ×2 (05:10→16:50)
[2016-06-10] MEDS: LEVOTHYROXINE SODIUM 150 MCG TAB PO SCH (05:10)
[2016-06-10] MEDS: ACETAMINOPHEN/HYDROcodone 325 MG/10 MG TAB PO PRN (05:14)
[2016-06-10 05:24] LABS: HEMATOCRIT 22.9 % (35.0-46.0); MEAN CELL VOLUME 79.1 FL (80.0-100.0); MEAN CORPUSCULAR HEMOGLOBIN 24.1 PG (27.0-34.0); MEAN CORPUSCULAR HGB CONC 30.5 % (32.0-36.0); PLATELET COUNT 387 TH/MM3 (150-450); WHITE BLOOD COUNT 14.6 TH/MM3 (4.0-11.0)
[2016-06-10 05:28] LABS: REVIEW FLAG FINAL
[2016-06-10 05:54] LABS: BICARBONATE 27.5 MEQ/L (21.0-32.0); MAGNESIUM 1.8 MG/DL (1.5-2.5)
[2016-06-10 05:56] LABS: POTASSIUM 4.4 MEQ/L (3.5-5.1)
[2016-06-10] MEDS: FLUoxetine HCL 20 MG CAP PO SCH (08:32)
[2016-06-10] MEDS: SODIUM CHLORIDE 0.9% FLUSH 5 ML FLUSH FLUSH SCH ×2 (08:32→21:00)
[2016-06-10] MEDS: SEVELAMER CARBONATE 800 MG TAB PO SCH ×3 (08:32→16:51)
[2016-06-10] MEDS: INSULIN DETEMIR 100 UNITS/ML VIAL SQ SCH ×2 (08:32→22:03)
[2016-06-10] MEDS: DOCUSATE SODIUM 50 MG/SENNA 8.6 MG TAB PO SCH ×2 (08:32→22:03)
[2016-06-10] MEDS: ASPIRIN EC 81 MG TABEC PO SCH (08:32)
[2016-06-10] MEDS: CINACALCET HYDROCHLORIDE 30 MG TAB PO SCH (08:32)
[2016-06-10] MEDS: COLLAGENASE OINT 30 GM TUBE EXT SCH (08:33)
[2016-06-10] MEDS: MORPHINE SULFATE 15 MG CONTROLLED RELEASE TAB PO SCH (08:33)
[2016-06-10] MEDS: POLYETHYLENE GLYCOL 17 GM PKG PO SCH (08:34)
[2016-06-10] MEDS: GABAPENTIN 100 MG CAP PO SCH ×2 (08:35→22:03)
[2016-06-10] MEDS: POVIDONE IODINE 10% SOLN 480 ML BTL TOPICAL SCH ×2 (09:00→21:00)
[2016-06-10] MEDS: CALCITRIOL 0.25 MCG CAP PO SCH (09:00)
--- NOTE | 2016-06-10 09:38 | HHI.PR ---
Subjective Remarks The patient was very upset that she had a hard time remembering things. She said that she still had twitches throughout her body from time to time. She wanted to know if EEG or biopsy results were back. Family was at the bedside. Objective Vitals Vital Signs Date Time Temp Pulse Resp B/P Pulse Ox O2 Delivery O2 Flow Rate FiO2 06/10/16 08:00 98.6 84 20 137/72 91 06/10/16 05:56 97.1 77 18 99/50 95 06/10/16 00:00 98.0 88 20 100/62 98 06/09/16 20:00 97.4 86 18 92/66 100 06/09/16 19:57 84 06/09/16 16:00 98.9 81 17 110/55 94 06/09/16 12:00 99.3 83 18 141/66 95 I/O 06/09/16 06/09/16 06/09/16 06/10/16 06/10/16 06/10/16 07:00 15:00 23:00 07:00 15:00 23:00 Intake Total 120 ml 500 ml 240 ml 240 ml Output Total 150 ml 0 ml 25 ml Balance -30 ml 500 ml 240 ml 215 ml Intake Oral 120 ml 500 ml 240 ml 240 ml IV Total 0 ml 0 ml 0 ml Output Urine Total 0 ml 0 ml Drainage Total 150 ml 25 ml # Voids 1 0 1 # Bowel Movements 0 1 0 Result Diagram: 06/10/16 0439 06/10/16 0439 Imaging Last Impressions Chest X-Ray 06/08/16 0000 Signed Impressions: Service Date/Time: Wednesday, June 08, 2016 19:03 - CONCLUSION: The lungs are clear. No evidence of pneumothorax. Len Benz MD Objective Remarks GENERAL: Pleasant, morbidly obese female patient. HEENT: NC, AT. CARDIOVASCULAR: Regular rate and rhythm without murmurs, gallops, or rubs. RESPIRATORY: Breath sounds equal bilaterally. No accessory muscle use. GASTROINTESTINAL: Obese over hanging pannus. Wound VAC in place over lower abdomen. Abdomen soft, non-tender, nondistended. Band-Aid on wound that was just biopsied. EXTREMITIES: Chronic pedal edema. Brownish discoloration with an odor of B/L lower extremity. NEURO: Intermittent twitching in the upper and lower extremities. PSYCH: Teary-eyed. Procedures I&D Debridement Skin biopsy on 06/06 Medications and IVs Current Medications Medications (Trade) Dose Ordered Sig/Soren Route Start Time Stop Time Status Last Admin (Norvasc) 5 mg BID PO 05/14/16 21:00 Hold 05/26/16 21:07 (Ecotrin Ec) 81 mg DAILY PO 05/15/16 09:00 06/10/16 08:32 (Tenormin) 50 mg BID PO 05/14/16 21:00 Hold 05/26/16 21:07 (Lipitor) 80 mg HS PO 05/14/16 21:00 06/09/16 20:01 (Prinivil) 20 mg BID PO 05/14/16 21:00 Hold 05/26/16 21:15 (Rocaltrol) 0.5 mcg DAILY PO 05/15/16 09:00 06/09/16 09:17 (PROzac) 20 mg DAILY PO 05/15/16 09:00 06/10/16 08:32 (Neurontin) 100 mg BID PO 05/14/16 21:00 06/10/16 08:35 (Synthroid) 300 mcg DAILY@0600 PO 05/15/16 06:00 06/10/16 05:10 (Antivert) 25 mg TID PRN PO 05/14/16 14:15 (NS Flush) 2 ml UNSCH PRN FLUSH 05/14/16 14:30 05/28/16 18:09 (NS Flush) 2 ml BID FLUSH 05/14/16 21:00 06/10/16 08:32 (Zofran Inj) 4 mg Q6H PRN IVP 05/14/16 14:30 (Reglan Inj) 5 mg Q6H PRN IV PUSH 05/14/16 14:30 (Dulcolax Supp) 10 mg DAILY PRN [place] 05/14/16 14:30 (Heparin Inj) 5,000 units Q12H SQ 05/14/16 16:00 06/10/16 05:10 Naloxone HCl 0.4 mg 0.4 mg UNSCH PRN IV 05/14/16 14:30 (NS 1000 ml Inj) 1,000 ml @ 0 mls/hr Q0M PRN IV 05/14/16 14:54 06/06/16 15:17 Heparin Sodium (Porcine) 8000 units 8,000 units UNSCH PRN IVF 05/14/16 15:00 (NS 1000 ml Inj) 1,000 ml @ 0 mls/hr Q0M PRN IV 05/14/16 14:54 05/30/16 09:36 (Mannitol Inj) 12.5 gm UNSCH PRN IV 05/14/16 15:00 (Albumin 25% Inj) 25 gm UNSCH PRN IV 05/14/16 15:00 (NS Flush) 5 ml UNSCH PRN IVF 05/14/16 15:00 (Heparin Inj) UNSCH PRN .XX 05/14/16 15:00 06/08/16 13:21 (Gentamicin (Dialysis) Inj) 20 mg UNSCH PRN IV 05/14/16 15:00 06/08/16 13:21 (Zofran Inj) 4 mg UNSCH PRN IV 05/14/16 15:00 (Benadryl) 25 mg UNSCH PRN PO 05/14/16 15:00 (Nitrostat Sl) 0.4 mg UNSCH PRN SL 05/14/16 15:00 (Catapres) 0.1 mg UNSCH PRN PO 05/14/16 15:00 (Epogen Inj) 10,000 units UNSCH PRN IV 05/14/16 15:00 06/08/16 13:21 (Gelfoam 12 Mm/7 Mm Top) 1 foam UNSCH PRN TOP 05/14/16 15:00 (D50w (Vial) Inj) 25 ml UNSCH PRN IV PUSH 05/14/16 18:45 (Glucagon Inj) 1 mg UNSCH PRN OTHER 05/14/16 18:45 (Santyl Oint) 1 applic DAILY EXT 05/17/16 15:00 06/10/16 08:33 (Levemir Inj) 30 units DAILY SQ 05/24/16 09:00 06/10/16 08:32 (Levemir Inj) 20 units HS SQ 05/23/16 21:00 06/09/16 20:02 (Luciana-Colace) 1 tab BID PO 05/26/16 21:00 06/10/16 08:32 (Sensipar) 30 mg DAILY PO 06/02/16 09:00 06/10/16 08:32 Miscellaneous Information Patient in critical care unit? Ass... Q361D XX 06/02/16 00:15 06/02/16 00:15 (Renvela) 1,600 mg TID PO 06/03/16 13:00 06/10/16 08:32 (Betadine 10% Top Soln) 1 applic BID TOPICAL 06/05/16 21:00 06/09/16 09:00 ([place] 5-325 Mg) 1 tab Q4H PRN PO 06/06/16 17:15 (Morphine Inj) 2 mg Q4HR PRN IV PUSH 06/08/16 15:15 06/08/16 18:45 (Miralax) 17 gm DAILY PO 06/09/16 10:45 06/10/16 08:34 (Oramorph Sr) 15 mg Q12HR PO 06/10/16 21:00 UNV (Xanax) 0.125 mg Q6H PRN PO 06/10/16 09:30 UNV A/P Assessment and Plan Sepsis/ Abdominal pannus/ Wound cellulitis and ulcer General surgery and plastic surgery following. Started on vancomycin and Zosyn. Cultures growing pseudomonas. ID following. S/p cefepime. 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 - continue cefepime and follow up with ID. - wound care per surgery. S/p debridement 05/26. - physical therapy. Add occupational therapy. - incentive spirometry. - Status post skin biopsy on 06/06/[address] Meyers. Follow pathology. - per nephrology - sodium Thiosulfate with HD. - pain control with a bowel regimen. Increase Oramorph. - palliative care consult requested. Anemia Likely s/t ESRD. - transfuse additional unit 06/10. - follow CBC. - epo as needed per nephrology. Asterixis Noted on exam. - continue with dialysis. - check EEG. Morbid Obesity BMI 65. The pt says she had a lap band in the past. - the pt agrees with lifestyle modifications. DM II A1c 6.8%. Glucose relatively well controlled 06/10. - changed Levemir to 30 units daily, 20 units HS. Adjust as needed. - insulin sliding scale. ESRD On Hemodialysis //Fri. - dialysis per nephrology. Chronic low back pain and chronic pain syndrome Exacerbated by wounds. - pain control with a bowel regimen. Anxiety The pt had a likely panic attack 06/08. Resolved with Ativan. - low dose Xanax as needed. DVT prophylaxis with Heparin every 12 hours. Discharge Planning Awaiting clinical improvement and biopsy results. Jacoby Sanchez DO Jun 10, 2016 09:38
[2016-06-10] MEDS ORDERED: PILL SPLITTER OTHER PRN (10:00)
--- NOTE | 2016-06-10 10:20 | MG ---
cc: BLANCA TAPIA M.D. Lab No: [id number] Date: 06/09/2016 Age: 55 Sex: F Race: Hypothyroidism, diabetes, anxiety, morphine, Neurontin. A 55-year-old woman with tremors, twitching. Diffuse 6 Hz slowing is seen. What appear to be vertex sharp waves are seen, at epoch 40 on a transverse montage. Photic stimulation is performed without significant posterior driving. Hyperventilation is not performed. Some leg jerks are noted, did not correlate with any seizure activity. I do not see any definite seizures or spikes. A left arm twitch is seen, again no seizure activity with that. Some leg twitching is seen which just correlates with some movement artifact. IMPRESSION Diffuse slowing consistent with a moderate diffuse encephalopathy but no focal abnormality was noted. No seizure activity was seen. MD JH Lei/SEBASTIAN /9:25 PM /10:11 AM
--- NOTE | 2016-06-10 12:20 | PD.CONS ---
Consult Service Palliative Care Consult Requested By Dr Sanchez Primary Care Physician Aline Velarde MD Reason for Consultation a. To assist with evaluation and management of symptoms including: wound pain, anxiety, depression b. To assist medical decision maker(s) with: better understanding of current medical conditions; weighing benefits/burdens of medical treatment options; making medical treatment decisions. HPI History of Present Illness This 55 yr old pt presented to the ED 05/14/16 via EMS, for evaluation of a reported worsening abdominal wound. The wound has apparently worsened for the last 6 weeks, she was seen outpatient by Dr. Meza who has performed IND, and had wound care twice daily. Patient reported wound with increased drainage, pain, Dr. Meza recommended surgical debridement. She had apparently been evaluated by Dr. Abran holm, and ED record notes he was looking for another surgeon with expertise in this kind of pathology. * Gen surgery consulted, started but teresa Galvin, cultures pending. Pt ESRD on HD, plan for HD. Admitted to ICU * General surgery evaluation: General surgery notes that there are concerns with traditional surgical debridement with or without a wound VAC due to size of wound and concerns that it would just become a larger wound with poor healing --- patient with multiple factors to impair wound healing including morbid obesity, diabetes and end-stage renal disease. Gen. surgery notes contact with 2 local bariatric surgeons neither of which were able to provide additional insight on management of necrotic wounds in extremely morbidly obese patient. Dr. Matias also contacted plastic surgery Dr. Johnson to obtain additional opinion-- notes is not wound to be managed by general surgery,this huge skin and soft tissues disorder requiring multidiscipline approach. Dr Johnson to evaluate pt. Consider referral to [facility]. * ID evaluated: cont Vanco, Zosyn; plastic surgery evaluation still pending * Nephrology also consulted--.. Notes they will monitor calcium phosphorus,try to avoid high levels. last phosphorus will not was not high. High levels can precipitate skin necrosis along with other comorbid conditions. * Plastic surgery evaluation: Notes large abdominal pannus approximately 3-1/2 foot horizontal by 8 or 12 inches across abdomen. grossly necrotic open foul- smelling wound approximately 20 cm x 12-15 cm an approximately 6 cm deep. Her to be full of black necrotic and purulent tissue. Concern for anaerobic as well as bacteremia due to odor. Noted to be anemic, plastic surgery recommends transfusion prior to any surgical treatment-she will be expected to lose a fair amount of blood due to severe inflammation, recommends if any surgery planned limits to the area of necrotic tissue, not touch other areas of the pannus. * Transfused 3 units of blood, plastic surgery wants hemoglobin to be at least 9 or 10 preoperatively.-->> I&D planned for 05/17 * 05/17I&D done by Dr. Johnson--->> notes overall area of excision approximately 25 cm x 10 cm vertical, at a depth of 6-8 cm. She tolerated the procedure well with estimated blood loss 75 mL or less. * 05/21wound cultures growing Pseudomonas. ID following. Remains on Zosyn + cefepime. Patient able to ambulate short distances using a walker in her room. She is having pain to the right hip, lower back. Was controlled with oral pain medications, (PO [place]) frequency increased to every 4 hour by medical attending * 05/23 patient developing wound to right buttocks, plastic surgery, wound care consulted * 05/24patient w/ new necrotic area right side of the abdomen 10 x 5 cm excision under LOCAL anesthetic only with Dr. Johnson plastic surgery for I&D. ?? This wound may be related to pressure and friction from wheelchair?. Nephrology continues to follow, notes need to rule out calciphylaxis, phosphorus normal check PTH. * 05/26 to OR for repeat I&D of initial large abdominal wound, as well as new or right-sided wound. Wound VAC was placed. Patient has continued to report some "jerking" she related to gabapentin ongoing for about 3 weeks--notices it most when she is talking on her phone. Nephrology feels this is asterixis. Nephrology notes wounds are unlikely calciphylaxis--PTH not high. * 05/29patient's family feels like wound is worsening to her buttock; patient would like plastic surgery to evaluate her again; medical attending plans to evaluate wound with next dressing change. Patient continues to have significant pain to wound as well as back. Antibiotics stopped by ID 05/31, continue wound care per plastic surgery, stable from ID standpoint. * 05/31medical attending reviewed photographs taken by family of wound, notes that hip wound appears necrotic and will need debridement; plastic surgery reconsulted. * 05/31nephrology notes more wounds to the sides of pelvis could be calciphylaxis. Consider skin biopsy and starting sodium thiosulfate treatment * Patient apparently refused dialysis due to not wanting to be transported, cnc manager changed to Dr. [place]. Notes additional discussion with patient regarding more than 50% mortality if she misses dialysis--she is agreed to complete dialysis in room; team members working to make arrangements for possibility of HD in room. 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 Pain somewhat better controlled. Declines to allow medical attending to examine wounds. Plastic surgery reconsulted for biopsy to confirm calciphylaxis. * 06/05patient with increased pain, IV Dilaudid works only for a few hours ; oral morphine SR 15mg added scheduled twice a day. Still awaiting biopsy. * 06/05 plastic surgery reevaluated, Dr. Meyers and PA, planned for biopsy 06/06. * 06/07 medical attending notes pain not controlled, morphine SR increased to 30 mg twice a day with [place] for breakthrough, attempting to wean off IV pain medications. * atient continues to complain of tremors to upper extremities. Patient expressing frustration, she is having difficulty feeding herself. She wants someone to talk to her about her goals of care. Some episodes of anxiety, started on Xanax. Palliative care was consulted. Pathology still pending. Pt seen in room w son at bedside. Sister present for a few min only. Nurse in and out to hang blood etc. Met w pt at length, 1 hr 30 min. Following exam d/w primary nurse, d/w medical attending recommendations. Function/Cognitive Trajectory Lived at home w son, ambulatory short distances. semi independent w ADLs. no cognitive deficits. . Review of Systems Constitutional: COMPLAINS OF: Change in appetite (decreased), Pain (abdominal, back), DENIES: Fever Eyes: DENIES: Vision loss Ears, nose, mouth, throat: DENIES: Oral lesions Respiratory: DENIES: Cough, Sputum production, Shortness of breath Cardiovascular: COMPLAINS OF: Dyspnea on Exertion, Lower Extremity Edema, DENIES: Chest pain Gastrointestinal: COMPLAINS OF: Abdominal pain (diffuse burning sensation/pain below regions of wounds), Anorexia (poor appetite x several weeks here in hospital ), DENIES: Nausea, Vomiting, Difficulty Swallowing Integumentary: COMPLAINS OF: Abnormal pigmentation (BLE), Non-healing sores ( new abominal wound) Hematologic/Lymphatics: DENIES: Bruising, Lymphadenopathy Immunologic/Allergic: DENIES: Urticaria Neurologic: COMPLAINS OF: Tremor (BUE, BLE ), DENIES: Headache Psychiatric: COMPLAINS OF: Anxiety (intermittent ), Confusion ("mild" for past 1 week feeling "weird" since on morphine PO ), DENIES: Mood changes, Hallucinations Past Family Social History Coded Allergies: Biaxin (Verified Allergy, Severe, swelling of face, 05/10/16) Iron (Verified Adverse Reaction, Severe, Constipation, 05/10/16) Past Medical History OA CAD status post Cardiac Catheterization and stent placement Hyperlipidemia CHF DM II ESRD on Hemodialysis T Hypertension Left lower arm fistula Spinal stenosis REESE Hypothyroidism. Past Surgical History Lap Band 2004, Laparoscopic Cholecystectomy 1996 PCI and stent placement June 2012 Dialysis Catheter placement on right C Section x 1 Reported Medications [dakins Full strength] Full strength 1 Applic TOP BID Dakins Solution Full Strength Topical (Sodium Hypochlorite) 0.4-0.5 % Soln 473 Ml TOPICAL BID 30 Days Renvela (Sevelamer Carbonate) 800 Mg Tab 800 Mg PO TID Gabapentin 100 Mg Cap 100 Mg PO BID Meclizine (Meclizine HCl) 25 Mg Tab 25 Mg PO TID PRN Lortab (Hydrocodone-Acetaminophen) 10-325 Mg Tab 1 Tab PO Q6H PRN Aspirin 81 (Aspirin) 81 Mg Tabdr 81 Mg PO DAILY Tizanidine (Tizanidine HCl) 4 Mg Tab 4 Mg PO TID PRN Novolog Inj (Insulin Aspart) 1,000 Unit/10 Ml Vial 30 Units SQ TID Sliding Scale as directed. Levothyroxine (Levothyroxine Sodium) 300 Mcg Tab 300 Mcg PO DAILY Fluoxetine (Fluoxetine HCl) 20 Mg Tab 20 Mg PO DAILY Calcitriol 0.5 Mcg Cap 0.5 Mcg PO DAILY Benazepril (Benazepril HCl) 20 Mg Tab 20 Mg PO BID Atorvastatin (Atorvastatin Calcium) 80 Mg Tab 80 Mg PO HS Atenolol 50 Mg Tab 50 Mg PO BID Amlodipine (Amlodipine Besylate) 5 Mg Tab 5 Mg PO BID . Current Medications Medications (Trade) Dose Ordered Sig/Soren Route Start Time Stop Time Status Last Admin (Norvasc) 5 mg BID PO 05/14/16 21:00 Hold 05/26/16 21:07 (Ecotrin Ec) 81 mg DAILY PO 05/15/16 09:00 06/10/16 08:32 (Tenormin) 50 mg BID PO 05/14/16 21:00 Hold 05/26/16 21:07 (Lipitor) 80 mg HS PO 05/14/16 21:00 06/09/16 20:01 (Prinivil) 20 mg BID PO 05/14/16 21:00 Hold 05/26/16 21:15 (Rocaltrol) 0.5 mcg DAILY PO 05/15/16 09:00 06/10/16 09:00 (PROzac) 20 mg DAILY PO 05/15/16 09:00 06/10/16 08:32 (Neurontin) 100 mg BID PO 05/14/16 21:00 06/10/16 08:35 (Synthroid) 300 mcg DAILY@0600 PO 05/15/16 06:00 06/10/16 05:10 (Antivert) 25 mg TID PRN PO 05/14/16 14:15 (NS Flush) 2 ml UNSCH PRN FLUSH 05/14/16 14:30 05/28/16 18:09 (NS Flush) 2 ml BID FLUSH 05/14/16 21:00 06/10/16 08:32 (Zofran Inj) 4 mg Q6H PRN IVP 05/14/16 14:30 (Reglan Inj) 5 mg Q6H PRN IV PUSH 05/14/16 14:30 (Dulcolax Supp) 10 mg DAILY PRN SD 05/14/16 14:30 (Heparin Inj) 5,000 units Q12H SQ 05/14/16 16:00 06/10/16 05:10 Naloxone HCl 0.4 mg 0.4 mg UNSCH PRN IV 05/14/16 14:30 (NS 1000 ml Inj) 1,000 ml @ 0 mls/hr Q0M PRN IV 05/14/16 14:54 06/06/16 15:17 Heparin Sodium (Porcine) 8000 units 8,000 units UNSCH PRN IVF 05/14/16 15:00 (NS 1000 ml Inj) 1,000 ml @ 0 mls/hr Q0M PRN IV 05/14/16 14:54 05/30/16 09:36 (Mannitol Inj) 12.5 gm UNSCH PRN IV 05/14/16 15:00 (Albumin 25% Inj) 25 gm UNSCH PRN IV 05/14/16 15:00 (NS Flush) 5 ml UNSCH PRN IVF 05/14/16 15:00 (Heparin Inj) UNSCH PRN .XX 05/14/16 15:00 06/08/16 13:21 (Gentamicin (Dialysis) Inj) 20 mg UNSCH PRN IV 05/14/16 15:00 06/08/16 13:21 (Zofran Inj) 4 mg UNSCH PRN IV 05/14/16 15:00 (Benadryl) 25 mg UNSCH PRN PO 05/14/16 15:00 (Nitrostat Sl) 0.4 mg UNSCH PRN SL 05/14/16 15:00 (Catapres) 0.1 mg UNSCH PRN PO 05/14/16 15:00 (Epogen Inj) 10,000 units UNSCH PRN IV 05/14/16 15:00 06/08/16 13:21 (Gelfoam 12 Mm/7 Mm Top) 1 foam UNSCH PRN TOP 05/14/16 15:00 (D50w (Vial) Inj) 25 ml UNSCH PRN IV PUSH 05/14/16 18:45 (Glucagon Inj) 1 mg UNSCH PRN OTHER 05/14/16 18:45 (Santyl Oint) 1 applic DAILY EXT 05/17/16 15:00 06/10/16 08:33 (Levemir Inj) 30 units DAILY SQ 05/24/16 09:00 06/10/16 08:32 (Levemir Inj) 20 units HS SQ 05/23/16 21:00 06/09/16 20:02 (Luciana-Colace) 1 tab BID PO 05/26/16 21:00 06/10/16 08:32 (Sensipar) 30 mg DAILY PO 06/02/16 09:00 06/10/16 08:32 Miscellaneous Information Patient in critical care unit? Ass... Q361D XX 06/02/16 00:15 06/02/16 00:15 (Renvela) 1,600 mg TID PO 06/03/16 13:00 06/10/16 08:32 (Betadine 10% Top Soln) 1 applic BID TOPICAL 06/05/16 21:00 06/10/16 09:00 ([place] 5-325 Mg) 1 tab Q4H PRN PO 06/06/16 17:15 (Morphine Inj) 2 mg Q4HR PRN IV PUSH 06/08/16 15:15 06/08/16 18:45 (Miralax) 17 gm DAILY PO 06/09/16 10:45 06/10/16 08:34 (Oramorph Sr) 15 mg Q12HR PO 06/10/16 21:00 (Xanax) 0.125 mg Q6H PRN PO 06/10/16 09:30 (Pill Splitter) 1 ea UNSCH PRN OTHER 06/10/16 10:00 Family History Per EMR family history of early onset CAD, father with first [place] at age 42, at age 69. Sister at age 39 secondary to CVA Substance Use Tobacco: Former smoker one half1 PPD times several years, quit several years ago. Alcohol: None Prescription med abuse :none Illicits: None . Psychosocial History Patient , lives at home with her son and significant other. Supported by adult son, sister, sig other, and mother. 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 Originally from [place], lived in [place] for many years on and off. Spiritual/Cultural Factors Orthodox Living Will: Copy in medical record (*" 5 wishes"document) Date completed: 09/2015 Health Care Surrogate(s): Primary surrogate named as son Moy Foley, secondary Robb [place] . Ethical and Legal Issues Patient currently capacitated and able to make her own medical decisions. 5 wishes directive document completed in 2016 names primary HCS as Moy Foley, secondary as Robb Toledo. Physical Exam Vital Signs Date Time Temp Pulse Resp B/P Pulse Ox O2 Delivery O2 Flow Rate FiO2 06/10/16 08:00 98.6 84 20 137/72 91 06/10/16 05:56 97.1 77 18 99/50 95 06/10/16 00:00 98.0 88 20 100/62 98 06/09/16 20:00 97.4 86 18 92/66 100 06/09/16 19:57 84 06/09/16 16:00 98.9 81 17 110/55 94 06/09/16 12:00 99.3 83 18 141/66 95 06/09/16 06/10/16 19:00 07:00 Intake Total 500 ml 480 ml Output Total 25 ml Balance 500 ml 455 ml Intake Oral 500 ml 480 ml IV Total 0 ml Output Urine Total 0 ml Drainage Total 25 ml # Voids 0 1 # Bowel Movements 0 1 Exam CONSTITUTIONAL/GENERAL: This is orbitally obese, chronically ill-appearing female, pleasant TUBES/LINES/DRAINS: Dialysis access right upper chest nearing jugular. PIV RUE. SKIN: No jaundice, rashes, or lesions. Bilateral lower extremities with significant hyperkeratotic skin thickening . Skin temperature warm. HEAD: Atraumatic. Normocephalic. EYES: Pupils equal and round and reactive. Extraocular motions intact. No scleral icterus. No injection or drainage. Fundi not examined. ENT: Hearing grossly normal. Nose without bleeding or purulent drainage. Throat without visible erythema, exudates, masses, or lesions. Few missing teeth. NECK: Trachea midline. Supple, nontender. No palpable thyroid enlargement or nodularity. CARDIOVASCULAR: Heart sounds regular, heart sounds distant. No murmur appreciated. Significant lymphedema to lower extremities I'm unable to palpate pedal pulses, palpable radial pulses RESPIRATORY/CHEST: Symmetric, unlabored respirations on room air. Clear to auscultation. Decreased air movement throughout. GASTROINTESTINAL: Abdomen obese, areas of firmness. + tender to palpable. Bowel sounds present. No palpable masses- somewhat limited abdominal exam. several large wounds noted : Right Abdomen w WOund VAC dressing intact, rt hip with dressing intact. Unable to visualize 2/2 to dressings. Reported wound to buttocks I did not visualize. GENITOURINARY: Without palpable bladder distension. MUSCULOSKELETAL: Extremities without clubbing, cyanosis, or edema. No joint tenderness or effusion noted. No calf tenderness. No mottling or clubbing. LYMPHATICS: No palpable cervical or supraclavicular adenopathy. NEUROLOGICAL: Awake and alert- oriented 3. Falls asleep at times. easily loses train of thought though redirects self. Otherwise Cognitively sharp. Moves all 4 extremities with generalized weakness. Frequent twitching/tremors noted to upper and lower extremities PSYCHIATRIC: Appropriately tearful at times. No anxiety evident. No apparent hallucinations or other psychotic thought process. Diagnostic Tests Laboratory Laboratory Tests Test 06/09/16 06/10/16 04:20 04:39 White Blood Count 16.3 TH/MM3 14.6 TH/MM3 (4.0-11.0) (4.0-11.0) Red Blood Count 2.95 MIL/MM3 2.90 MIL/MM3 (4.00-5.30) (4.00-5.30) Hemoglobin 7.2 GM/DL 7.0 GM/DL (11.6-15.3) (11.6-15.3) Hematocrit 23.3 % 22.9 % (35.0-46.0) (35.0-46.0) Mean Corpuscular Volume 79.1 FL 79.1 FL (80.0-100.0) (80.0-100.0) Mean Corpuscular Hemoglobin 24.3 PG 24.1 PG (27.0-34.0) (27.0-34.0) Mean Corpuscular Hemoglobin 30.7 % 30.5 % Concent (32.0-36.0) (32.0-36.0) Red Cell Distribution Width 21.2 % 21.0 % (11.6-17.2) (11.6-17.2) Platelet Count 380 TH/MM3 387 TH/MM3 (150-450) (150-450) Mean Platelet Volume 7.4 FL 7.2 FL (7.0-11.0) (7.0-11.0) Sodium Level 135 MEQ/L 135 MEQ/L (136-145) (136-145) Potassium Level 3.4 MEQ/L 4.4 MEQ/L (3.5-5.1) (3.5-5.1) Chloride Level 93 MEQ/L 94 MEQ/L (98-107) (98-107) Carbon Dioxide Level 29.9 MEQ/L 27.5 MEQ/L (21.0-32.0) (21.0-32.0) Anion Gap 12 MEQ/L (5-15) 14 MEQ/L (5-15) Blood Urea Nitrogen 27 MG/DL (7-18) 36 MG/DL (7-18) Creatinine 3.96 MG/DL 5.16 MG/DL (0.50-1.00) (0.50-1.00) Estimat Glomerular Filtration 12 ML/MIN (>89) 9 ML/MIN (>89) Rate Random Glucose 172 MG/DL 95 MG/DL (74-106) (74-106) Calcium Level 8.5 MG/DL 7.9 MG/DL (8.5-10.1) (8.5-10.1) Magnesium Level 1.8 MG/DL 1.8 MG/DL (1.5-2.5) (1.5-2.5) Result Diagram: 06/10/16 0439 06/10/16 0439 Microbiology lood culturesno growth 5 days 05/14woundpseudomonas aeruginosa 7culturesno growth 10wound culturepseudomonas aeruginosa 10woundno acid-fast bacilli / Mycobacterium no growth 3 weeks 10woundno fungal elements 3 weeks Imaging Last Impressions Chest X-Ray 06/08/16 0000 Signed Impressions: Service Date/Time: Wednesday, June 08, 2016 19:03 - CONCLUSION: The lungs are clear. No evidence of pneumothorax. Len Benz MD Procedures * 05/17I&D done by Dr. Johnson--->> overall area of excision approximately 25 cm x 10 cm vertical, at a depth of 6-8 cm. * 05/26 to OR for repeat I&D Patient/Family Conference Present at Family Conference: pt, son Family Conference Time (mins): 90 Issues Discussed: Met with patient and her son at length x 90 min. 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 * Patients goals of care * Current medical treatment options and benefits/burdens of those options * CODE STATUS/what resuscitation entails, prognosis related to resuscitation- patient to remain full code for now but is going to discuss CODE STATUS further * Pain--further exploration of quality of her pain and potential options including methadone which she is amenable to trying, she is fearful of pain medications in general but endorses she wants better pain control; explore balance of pain relief with sedation * Questions answered to the best of my ability * Palliative care contact information provided Patient appears a reasonable understanding of conditions and overall prognosis. She is supported by her son seems to be of the same understanding. For right now her goals are aggressive however she also understands the gravity of her conditions, and is open to further discussions and revisiting conditions, prognosis, goals as clinical course evolves. She would like better control of her pain which for the most part Right now is 7 out of 10; she understands the challenge of balancing pain relief with sedation and is open to trying methadone. Assessment and Plan Disease Oriented Problem List: (1) Hypertension, benign (2) Pseudomonas aeruginosa infection (3) Symptomatic anemia (4) Anemia in chronic kidney disease (CKD) (5) End stage renal disease on dialysis (6) Anxiety (7) Asterixis (8) Sepsis (9) Diabetes (10) Chronic back pain Symptom Scale: (1) Anxiety (2) Depression (3) Malnutrition (4) Pain Pertinent Non-Medical Issues Psychosocial:Patient , lives at home with her son and significant other. Supported by adult son, sister, sig other, and mother. 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 Originally from [place], lived in [place] for many years on and off. Spiritual:quaker- pension consultant has been in Legal:Patient currently capacitated and able to make her own medical decisions. 5 wishes directive document completed in 2016 names primary HCS as (son) Moy Foley, secondary as (sig other) Robb Toledo. Ethical issues impacting care: Important Contacts Son Moy Foley- [phone] Prognosis This unfortunate patient was admitted with worsening wounds to the abdomen, which have continued to worsen despite aggressive antibiotic and surgical management. She has multiple chronic medical comorbidities including diabetes, cardiovascular disease and end-stage renal failure dependent on dialysis. 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 She has been initiated on treatment with sodium thiosulfate, which to my understanding the impact on overall survival rates is not yet known. Given her overall compromised state she remains high risk for further complications and setbacks. Code Status: Full Code Plan * Legal decision maker: Patient is currently able to make her own decisions. She has documents naming her son is primary decision-maker should she become incapacitated. Her significant other is named as secondary. * Goals: For right now patient's goals are aggressive, she wishes to continue whatever therapies are recommended to help her overall improvement and long- term prognosis. She wants better control of the pain. She is open to revisiting goals as clinical course evolves. * CODE STATUS: Full codeshe indicates will be discussing further with her family * SYMPTOMS: --Pain-ongoing chronic back pain related to prior injury, previously well controlled with [place] use in the home. New or diffuse burning type pain across/ under abdominal tissues she describes as feeling like a "shingles like "pain- most days 7 out of 10, she would like it to be significantly better than that. He reports feeling "confused and loopy "since being started on long-acting morphine about a week ago. She is amenable to trying methadone, understands the difficulty of balancing pain relief with sedation. Recommendations: d/c oramorph. Difficult to summarize ongoing 24-hour requirements as there have been multiple changes in her pain regimen, most days her oral morphine equivalents are equal to or greater than 120 mg. She also has end-stage renal disease. A good candidate for methadone to provide long acting pain control which can be uptitrated as needed. Very conservative starting dose recommend 2.5 mg pO every 8 hrs scheduled. Consider up-titration on day 3 or 4. For prn breakthrough -- continue norco 5-10 mg PO every 4 hrs prn breakthrough pain, with PRN dilaudid 1-2mg Q4 hr prn severe pain /pre dressing change. --anxiety- few episodes of anxiety feels "panicked" during hospital course- has 0.125 MG xanax available, appears effective thus far. Cont to evaluate. -- depression- situational, patient with multiple chronic comorbid medical conditions-exploration with patient use of antidepressant for long-term assistance with depression related to long-term disease process. She is currently on Prozac 20 mg daily. Could consider up titration if needed. --Malnutrition-poor appetite reported during hospital course. Albumin low. Consider nutritional supplement, renal appropriate formula such as Nepro. * Palliative care will continue to follow during hospital course as condition evolves, to assist patient/decision-maker with understanding of medical conditions, weighing benefits/burdens of treatment options, for clarification of goals of treatment. Additionally will assist with any symptoms of palliative concern Time Spent Total Floor Time (mins): 155 Face to Face Time (mins): 90 >50% Counseling/Coord of Care: Yes (d/w RN, medical attending) Thank you for the opportunity to participate in the care of Ms. Foley. Attestation To help prompt me to consider important information that might be impacting today's encounter and assessment, information from prior notes written by myself or my colleagues may have been "brought forward" into today's note. My signature on this note, however, is an attestation that I personally performed the exam, history, and/or decision-making noted today, and, unless otherwise indicated, the interactions with patient, family, and staff as well as the review of records all occurred today. I also attest that the listed assessment and stated plan reflect my best clinical judgment today based on the combination of historical information, prior notes, and today's exam/ interactions. When time spent is documented, it refers only to time spent today by the signer, or if indicated, combined time spent today by collaborating physician/nurse practitioner. Vangie Anguiano Jun 10, 2016 11:59
[2016-06-10] MEDS: METHADONE HCL 10 MG TAB PO SCH (16:00)
--- NOTE | 2016-06-10 17:14 | HHI.NPPN ---
Subjective History of Present Illness 55-year-old female known to me from before with past medical history of diabetes mellitus, history of morbid obesity, end-stage renal disease on hemodialysis three times per week, history of chronic anemia, congestive heart failure, spinal stenosis, chronic back pain, hypothyroidism who came to the hospital with complaint of worsening lower abdominal wound. I was called to see the patient for the management of dialysis. The patient has been on hemodialysis Friday, and Friday. Additional Remarks Patient is sleepy after getting Morphine. Review of Systems General Constitutional: Fatigue Respiratory Lungs: SOB Cardiovascular Cardiac: GRIFFIN Objective Data Data 06/09/16 06/10/16 19:00 07:00 Intake Total 500 ml 480 ml Output Total 25 ml Balance 500 ml 455 ml Intake Oral 500 ml 480 ml IV Total 0 ml Output Urine Total 0 ml Drainage Total 25 ml # Voids 0 1 # Bowel Movements 0 1 Vital Signs Date Time Temp Pulse Resp B/P Pulse Ox O2 Delivery O2 Flow Rate FiO2 06/10/16 12:52 98.4 87 18 140/62 93 06/10/16 12:00 98.4 87 18 140/62 93 06/10/16 08:00 98.6 84 20 137/72 91 06/10/16 05:56 97.1 77 18 99/50 95 06/10/16 00:00 98.0 88 20 100/62 98 06/09/16 20:00 97.4 86 18 92/66 100 06/09/16 19:57 84 -: 06/10/16 0439 06/10/16 0439 Physical Exam General Appearance: No Acute Distress, Comfortable Eyes Eye Exam: Pupils Equal Throat Throat Exam: Oral Mucosa [place] & Moist Neck Neck Exam: Neck Supple Pulmonary Resp Exam: Breath Sounds Equal, Crackles, Decreased Bases, Diminished Breath Sounds Gastrointestinal/Abdomen GI Exam: Soft, Non-Tender, Distended Extremeties Extremities Exam: Moderate Edema, Pitting Edema, Dependent Edema Neurologic Neuro Remarks sleepy Assessment/Plan Assessment Summary: Anemia of CKD, Hypertension, End Stage Renal Disease Problem List: (1) Anemia in chronic kidney disease (CKD) (2) Open wound of abdomen (3) Chronic stasis dermatitis (4) End stage kidney disease Plan Now on Cefepime. Continue the wound care. ID is following. 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 Seen by plastic surgery and had debridement of Rt. buttock area. Also has debridement of abd. wound done. Now with wound Vac. Post skin Biopsy and started on Na. Thiosulfate treatment and Sensipar. On Renvela. skin Biopsy done, follow the results. HD to continue TTS. Seen by palliative care. Problem Qualifiers (1) Open wound of abdomen: Qualified Code: S31.109A - Open wound of abdomen, initial encounter Valentin Jimenez MD Jun 10, 2016 17:14 Valentin Jimenez MD Jun 10, 2016 17:14
[2016-06-10] MEDS: NALOXONE HCL 0.4 MG/ML AMP IV PRN ×2 (18:41→19:16)
[2016-06-10] MEDS ORDERED: MORPHINE SULFATE 15 MG CONTROLLED RELEASE TAB PO SCH (21:00)
[2016-06-10 21:52] LABS: BLOOD GAS BASE EXCESS 1.6 mmol/L (-2-2); BLOOD GAS CARBOXYHEMOGLOBIN 2.1 % (0-4); BLOOD GAS HCO3 26 mmol/L (22-26); BLOOD GAS METHEMOGLOBIN 0.7 % (0-2); BLOOD GAS O2 HGB SATURATION 95 % (90-100); BLOOD GAS OXYGEN CONTENT 10.3 Vol % (12.0-20.0); BLOOD GAS PCO2 44 mmHg (38-42); BLOOD GAS PO2 107 mmHg (61-120); BLOOD GAS TOTAL HGB 7.5 G/DL (12.0-16.0); TEMP CORR TO 98.6
[2016-06-10 21:53] LABS: CRITICAL VALUE NO; DRAW SITE RT BRACHIAL; LITER FLOW 3.5 L/M; NUMBER OF ARTERIAL PUNCTURES 2; OXYGEN DEVICE NASAL CANNULA; STAT YES
[2016-06-10] MEDS: ATORVASTATIN 80 MG TAB PO SCH (22:03)
[2016-06-10] MEDS: ACETAMINOPHEN 325 MG TAB PO PRN (22:04)
[2016-06-11] VITALS: BP 140/74; PULSE 104; RESP 20; TEMP 100; O2SAT 96
[2016-06-11 04:00] VITALS: BP 134/80; PULSE 94; RESP 20; TEMP 98.9; O2SAT 97
[2016-06-11] MEDS: HEPARIN SODIUM - SQ 10,000 UNITS/ML VIAL SQ SCH ×2 (04:19→16:26)
[2016-06-11] MEDS: LEVOTHYROXINE SODIUM 150 MCG TAB PO SCH (04:20)
[2016-06-11 05:37] LABS: HEMATOCRIT 22.9 % (35.0-46.0); MEAN CELL VOLUME 79.8 FL (80.0-100.0); MEAN CORPUSCULAR HEMOGLOBIN 25.1 PG (27.0-34.0); MEAN CORPUSCULAR HGB CONC 31.4 % (32.0-36.0); PLATELET COUNT 352 TH/MM3 (150-450); RED BLOOD COUNT 2.87 MIL/MM3 (4.00-5.30); REVIEW FLAG FINAL; WHITE BLOOD COUNT 13.4 TH/MM3 (4.0-11.0)
[2016-06-11 06:08] LABS: BICARBONATE 26.5 MEQ/L (21.0-32.0); POTASSIUM 3.9 MEQ/L (3.5-5.1)
[2016-06-11] MEDS: HIGH DOSE INSULIN NOVOLOG SUPPLEMENTAL SCALE SQ SCH ×5 (06:10→21:00)
[2016-06-11] MEDS: ACETAMINOPHEN 325 MG TAB PO PRN (06:10)
[2016-06-11] MEDS: METHADONE HCL 10 MG TAB PO SCH ×2 (07:45)
[2016-06-11 08:00] VITALS: BP 120/57; PULSE 80; RESP 18; TEMP 98; O2SAT 98
[2016-06-11 08:20] VITALS: PULSE 81
[2016-06-11] MEDS: COLLAGENASE OINT 30 GM TUBE EXT SCH ×2 (08:34→09:00)
[2016-06-11] MEDS: POLYETHYLENE GLYCOL 17 GM PKG PO SCH ×2 (08:34→13:20)
[2016-06-11] MEDS: ASPIRIN EC 81 MG TABEC PO SCH ×2 (08:34→13:21)
[2016-06-11] MEDS: GABAPENTIN 100 MG CAP PO SCH ×3 (08:34→21:26)
[2016-06-11] MEDS: SODIUM CHLORIDE 0.9% FLUSH 5 ML FLUSH FLUSH SCH ×3 (08:34→21:26)
[2016-06-11] MEDS: SODIUM HYPOCHLORITE 0.25% 500 ML BTL TOPICAL SCH ×2 (08:34→13:23)
[2016-06-11] MEDS: INSULIN DETEMIR 100 UNITS/ML VIAL SQ SCH ×3 (08:35→21:31)
[2016-06-11] MEDS: POVIDONE IODINE 10% SOLN 480 ML BTL TOPICAL SCH ×3 (08:35→21:00)
[2016-06-11] MEDS: CINACALCET HYDROCHLORIDE 30 MG TAB PO SCH ×2 (08:35→13:21)
[2016-06-11] MEDS: CALCITRIOL 0.25 MCG CAP PO SCH ×2 (08:35→13:20)
[2016-06-11] MEDS: FLUoxetine HCL 20 MG CAP PO SCH ×2 (08:35→13:21)
[2016-06-11] MEDS: DOCUSATE SODIUM 50 MG/SENNA 8.6 MG TAB PO SCH ×3 (08:35→21:26)
[2016-06-11] MEDS: SEVELAMER CARBONATE 800 MG TAB PO SCH ×4 (08:35→16:26)
--- NOTE | 2016-06-11 11:51 | HHI.HCPN ---
Reason for visit a. To assist with evaluation and management of symptoms including: follow up on wound pain, anxiety, depression b. To assist medical decision maker(s) with: better understanding of current medical conditions; weighing benefits/burdens of medical treatment options; making medical treatment decisions. Subjective/Interval History It appears pt was lethargic and non of pt's methadone had bee administered. Pt' s Morphine had been d/c, and pt on dilaudid for breakthrough. Pt had not used any prn dilaudid. Pt had some Narcan given. Pt had just returned from dialysis. On my visit, pt is more awake, still somewhat confused, but able to follow commands and answer questions. Pt' son in bedside. Discussed pain regimen and management. Explained to pt and son, with her kidneys the better option would be methadone or fentanyl. They are amenable to start methadone, but not today given what had happened. They are amenable for us to follow up and possibly start tomorrow. Pt would like to continue with the [place] for now. Pt did rate pain as 8/10. She understands if it is not helping, likely will need to find another regimen for pain. Goals of care touched on briefly this visit, but remains aggressive for now. Pt amenable with palliative care to follow along. Family/friend interactions son at bedside, no further questions. Grateful for our visit. Advance Directives Living Will: Copy in medical record Advance Directive Specifics Date completed: 09/2015 Health Care Surrogate(s): Primary surrogate named as son Moy Foley, secondary Robb Toledo . Objective Vital Signs Date Time Temp Pulse Resp B/P Pulse Ox O2 Delivery O2 Flow Rate FiO2 06/11/16 08:00 98.0 80 18 120/57 98 06/11/16 04:00 98.9 94 20 134/80 97 06/11/16 00:00 100.0 104 20 140/74 96 06/10/16 20:00 97 06/10/16 20:00 99.3 100 20 137/67 99 06/10/16 19:00 100.8 100 18 137/67 99 06/10/16 18:45 100.8 93 16 136/67 100 06/10/16 16:00 99.3 92 15 132/67 93 06/10/16 13:20 99.0 88 16 123/59 91 06/10/16 12:52 98.4 87 18 140/62 93 06/10/16 12:00 98.4 87 18 140/62 93 Intake & Output 06/11/16 06/11/16 06:59 18:59 Intake Total 480 ml Output Total 20 ml Balance 460 ml Intake Oral 480 ml IV Total 0 ml Output Urine Total 0 ml Drainage Total 20 ml # Bowel Movements 0 Physical Exam CONSTITUTIONAL/GENERAL: This is orbitally obese, chronically ill-appearing female, pleasant, somewhat confused. TUBES/LINES/DRAINS: Dialysis access right upper chest nearing jugular. PIV RUE. SKIN: No jaundice, rashes, or lesions. Bilateral lower extremities with significant hyperkeratotic skin thickening . Skin temperature warm. HEAD: Atraumatic. Normocephalic. EYES: Pupils equal and round and reactive. Extraocular motions intact. No scleral icterus. No injection or drainage. Fundi not examined. ENT: Hearing grossly normal. Nose without bleeding or purulent drainage. Throat without visible erythema, exudates, masses, or lesions. Few missing teeth. NECK: Trachea midline. Supple, nontender. No palpable thyroid enlargement or nodularity. CARDIOVASCULAR: Heart sounds regular, heart sounds distant. No murmur appreciated. Significant lymphedema to lower extremities I'm unable to palpate pedal pulses, palpable radial pulses RESPIRATORY/CHEST: Symmetric, unlabored respirations on room air. Clear to auscultation. Decreased air movement throughout. GASTROINTESTINAL: Abdomen obese, areas of firmness. + tender to palpable. Bowel sounds present. No palpable masses- somewhat limited abdominal exam. several large wounds noted : Right Abdomen w WOund VAC dressing intact, rt hip with dressing intact. Unable to visualize 2/2 to dressings. Reported wound to buttocks I did not visualize. GENITOURINARY: Without palpable bladder distension. MUSCULOSKELETAL: Extremities without clubbing, cyanosis, or edema. No joint tenderness or effusion noted. No calf tenderness. No mottling or clubbing. LYMPHATICS: No palpable cervical or supraclavicular adenopathy. NEUROLOGICAL: Awake and alert-a bit confused. Moves all 4 extremities with generalized weakness. PSYCHIATRIC: . No anxiety evident. No apparent hallucinations or other psychotic thought process. Diagnostic Tests Laboratory Laboratory Tests Test 06/09/16 06/10/16 06/10/16 06/10/16 04:20 04:39 10:11 21:30 White Blood Count 16.3 TH/MM3 14.6 TH/MM3 (4.0-11.0) (4.0-11.0) Red Blood Count 2.95 MIL/MM3 2.90 MIL/MM3 (4.00-5.30) (4.00-5.30) Hemoglobin 7.2 GM/DL 7.0 GM/DL (11.6-15.3) (11.6-15.3) Hematocrit 23.3 % 22.9 % (35.0-46.0) (35.0-46.0) Mean Corpuscular Volume 79.1 FL 79.1 FL (80.0-100.0) (80.0-100.0) Mean Corpuscular Hemoglobin 24.3 PG 24.1 PG (27.0-34.0) (27.0-34.0) Mean Corpuscular Hemoglobin 30.7 % 30.5 % Concent (32.0-36.0) (32.0-36.0) Red Cell Distribution Width 21.2 % 21.0 % (11.6-17.2) (11.6-17.2) Platelet Count 380 TH/MM3 387 TH/MM3 (150-450) (150-450) Mean Platelet Volume 7.4 FL 7.2 FL (7.0-11.0) (7.0-11.0) Sodium Level 135 MEQ/L 135 MEQ/L (136-145) (136-145) Potassium Level 3.4 MEQ/L 4.4 MEQ/L (3.5-5.1) (3.5-5.1) Chloride Level 93 MEQ/L 94 MEQ/L (98-107) (98-107) Carbon Dioxide Level 29.9 MEQ/L 27.5 MEQ/L (21.0-32.0) (21.0-32.0) Anion Gap 12 MEQ/L (5-15) 14 MEQ/L (5-15) Blood Urea Nitrogen 27 MG/DL (7-18) 36 MG/DL (7-18) Creatinine 3.96 MG/DL 5.16 MG/DL (0.50-1.00) (0.50-1.00) Estimat Glomerular Filtration 12 ML/MIN (>89) 9 ML/MIN (>89) Rate Random Glucose 172 MG/DL 95 MG/DL (74-106) (74-106) Calcium Level 8.5 MG/DL 7.9 MG/DL (8.5-10.1) (8.5-10.1) Magnesium Level 1.8 MG/DL 1.8 MG/DL (1.5-2.5) (1.5-2.5) Blood Type O POSITIVE Antibody Screen NEGATIVE Crossmatch Leukocyte-Reduced Red Blood Cells Blood Bank Comment Blood Gas Puncture Site RT BRACHIAL Blood Gas Patient Temperature 98.6 Blood Gas HCO3 26 mmol/L (22-26) Blood Gas Base Excess 1.6 mmol/L (-2-2) Blood Gas Oxygen Saturation 95 % (90-100) Arterial Blood pH 7.39 (7.380-7.420) Arterial Blood Partial 44 mmHg (38-42) Pressure CO2 Arterial Blood Partial 107 mmHg Pressure O2 (61-120) Arterial Blood Oxygen Content 10.3 Vol % (12.0-20.0) Arterial Blood 2.1 % (0-4) Carboxyhemoglobin Arterial Blood Methemoglobin 0.7 % (0-2) Blood Gas Hemoglobin 7.5 G/DL (12.0-16.0) Oxygen Delivery Device NASAL CANNULA Blood Gas Liter Flow 3.5 L/M Test 06/11/16 04:31 White Blood Count 13.4 TH/MM3 (4.0-11.0) Red Blood Count 2.87 MIL/MM3 (4.00-5.30) Hemoglobin 7.2 GM/DL (11.6-15.3) Hematocrit 22.9 % (35.0-46.0) Mean Corpuscular Volume 79.8 FL (80.0-100.0) Mean Corpuscular Hemoglobin 25.1 PG (27.0-34.0) Mean Corpuscular Hemoglobin 31.4 % Concent (32.0-36.0) Red Cell Distribution Width 20.0 % (11.6-17.2) Platelet Count 352 TH/MM3 (150-450) Mean Platelet Volume 7.4 FL (7.0-11.0) Sodium Level 134 MEQ/L (136-145) Potassium Level 3.9 MEQ/L (3.5-5.1) Chloride Level 94 MEQ/L (98-107) Carbon Dioxide Level 26.5 MEQ/L (21.0-32.0) Anion Gap 14 MEQ/L (5-15) Blood Urea Nitrogen 45 MG/DL (7-18) Creatinine 6.67 MG/DL (0.50-1.00) Estimat Glomerular Filtration 6 ML/MIN (>89) Rate Random Glucose 163 MG/DL (74-106) Calcium Level 8.0 MG/DL (8.5-10.1) Magnesium Level 2.0 MG/DL (1.5-2.5) Result Diagram: 06/11/1643006/11/16430 Procedures * 05/17I&D done by Dr. Johnson--->> overall area of excision approximately 25 cm x 10 cm vertical, at a depth of 6-8 cm. * 05/26 to OR for repeat I&D Assessment and Plan Disease Oriented Problem List: (1) Hypertension, benign (2) Pseudomonas aeruginosa infection (3) Symptomatic anemia (4) Anemia in chronic kidney disease (CKD) (5) End stage renal disease on dialysis (6) Anxiety (7) Asterixis (8) Sepsis (9) Diabetes (10) Chronic back pain Symptom Scale: (1) Anxiety (2) Depression (3) Malnutrition (4) Pain Pertinent Non-Medical Issues Psychosocial:Patient , lives at home with her son and significant other. Supported by adult son, sister, sig other, and mother. 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 Originally from [place], lived in [place] for many years on and off. Spiritual:lutheran- auto parts handler has been in Legal:Patient currently capacitated and able to make her own medical decisions. 5 wishes directive document completed in 2016 names primary HCS as (son) Moy Foley, secondary as (sig other) Robb Toledo. Ethical issues impacting care: Important Contacts Son Moy Foley- [phone] Prognosis This unfortunate patient was admitted with worsening wounds to the abdomen, which have continued to worsen despite aggressive antibiotic and surgical management. She has multiple chronic medical comorbidities including diabetes, cardiovascular disease and end-stage renal failure dependent on dialysis. 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 She has been initiated on treatment with sodium thiosulfate, which to my understanding the impact on overall survival rates is not yet known. Given her overall compromised state she remains high risk for further complications and setbacks. Code Status: Full Code Plan * Legal decision maker: Patient is currently able to make her own decisions. She has documents naming her son is primary decision-maker should she become incapacitated. Her significant other is named as secondary. * Goals: For right now patient's goals are aggressive, she wishes to continue whatever therapies are recommended to help her overall improvement and long- term prognosis. * CODE STATUS: Full code * SYMPTOMS: --Pain-ongoing chronic back pain related to prior injury, previously well controlled with [place] use in the home. New or diffuse burning type pain across/ under abdominal tissues she describes as feeling like a "shingles like "pain- most days 7 out of 10, she would like it to be significantly better than that. He reports feeling "confused and loopy "since being started on long-acting morphine about a week ago. [place] was reviewed with patien, and she was amenable to trying methadone, understands the difficulty of balancing pain relief with sedation. Recommendations were made yesterday to which I concur: d/c oramorph. Difficult to summarize ongoing 24-hour requirements as there have been multiple changes in her pain regimen, most days her oral morphine equivalents are equal to or greater than 120 mg. Given her renal insufficiency, methadone or fentanyl would be the better option. Pt is a good candidate for methadone. Pt was lethargic, and none of the methadone was given or dilaudid was given. If she is lethargic, will d/c methadone, and consider inititiate titration tomorrow. We can even be more conservative and start 2.5 mg q 12 hours. continue norco for prn (which is pt's preference) and prn dialudid. I will hold off on initiating methadone today, and likely start tomorrow, if pt is amenable. --anxiety- few episodes of anxiety feels "panicked" during hospital course- has 0.125 MG xanax available, appears effective thus far. Cont to evaluate. -- depression- situational, patient with multiple chronic comorbid medical conditions-exploration with patient use of antidepressant for long-term assistance with depression related to long-term disease process. She is currently on Prozac 20 mg daily. Could consider up titration if needed. --Malnutrition-poor appetite reported during hospital course. Albumin low. Consider nutritional supplement, renal appropriate formula such as Nepro. * Palliative care will continue to follow during hospital course as condition evolves, to assist patient/decision-maker with understanding of medical conditions, weighing benefits/burdens of treatment options, for clarification of goals of treatment. Additionally will assist with any symptoms of palliative concern Time Spent Total Floor Time (mins): 38 Face to Face Time (mins): 25 Attestation To help prompt me to consider important information that might be impacting today's encounter and assessment, information from prior notes written by myself or my colleagues may have been "brought forward" into today's note. My signature on this note, however, is an attestation that I personally performed the exam, history, and/or decision-making noted today, and, unless otherwise indicated, the interactions with patient, family, and staff as well as the review of records all occurred today. I also attest that the listed assessment and stated plan reflect my best clinical judgment today based on the combination of historical information, prior notes, and today's exam/ interactions. When time spent is documented, it refers only to time spent today by the signer, or if indicated, combined time spent today by collaborating physician/nurse practitioner. Reid Wright MD Jun 11, 2016 11:51
[2016-06-11] MEDS: HEPARIN SODIUM - IV 10,000 UNITS/10 ML VIAL PRN (12:46)
[2016-06-11] MEDS: EPOETIN ALFA 10,000 UNITS/ML VIAL IV PRN (12:46)
[2016-06-11] MEDS: SODIUM THIOSULFATE INJ 12,500 MG in WATER STERILE FOR INJ 100 ML IV PRN (12:47)
[2016-06-11] MEDS: GENTAMICIN SULFATE (DIALYSIS USE ONLY) 20 MG/2 ML VIAL IV PRN (12:47)
[2016-06-11] MEDS: ACETAMINOPHEN/HYDROcodone 325 MG/10 MG TAB PO PRN ×3 (13:20→22:57)
--- NOTE | 2016-06-11 17:49 | HHI.PR ---
Subjective Remarks Family was in the room and on the phone and her questions were answered. The patient said her pain was not controlled but she was afraid to take high doses of medications because they sometimes make her altered. She wanted to know the results of her biopsy. She had dialysis earlier today. Discussed with nursing. Objective Vitals Vital Signs Date Time Temp Pulse Resp B/P Pulse Ox O2 Delivery O2 Flow Rate FiO2 06/11/16 14:20 17 06/11/16 08:20 81 06/11/16 08:00 98.0 80 18 120/57 98 06/11/16 04:00 98.9 94 20 134/80 97 06/11/16 00:00 100.0 104 20 140/74 96 06/10/16 20:00 97 06/10/16 20:00 99.3 100 20 137/67 99 06/10/16 19:00 100.8 100 18 137/67 99 06/10/16 18:45 100.8 93 16 136/67 100 I/O 06/10/16 06/10/16 06/10/16 06/11/16 06/11/16 06/11/16 07:00 15:00 23:00 07:00 15:00 23:00 Intake Total 240 ml 240 ml 240 ml 240 ml 120 ml Output Total 25 ml 0 ml 20 ml 3730 ml Balance 215 ml 240 ml 240 ml 220 ml -3610 ml Intake Oral 240 ml 240 ml 240 ml 240 ml 120 ml IV Total 0 ml 0 ml 0 ml 0 ml Output Urine Total 0 ml 0 ml 0 ml 200 ml Drainage Total 25 ml 0 ml 20 ml 30 ml Hemodialysis 3500 ml # Voids 1 # Bowel Movements 0 0 0 0 0 Result Diagram: 06/11/16 0431 06/11/16 0431 Imaging Last Impressions Chest X-Ray 06/08/16 0000 Signed Impressions: Service Date/Time: Wednesday, June 08, 2016 19:03 - CONCLUSION: The lungs are clear. No evidence of pneumothorax. Len Benz MD Objective Remarks GENERAL: Pleasant, morbidly obese female patient. HEENT: NC, AT. CARDIOVASCULAR: Regular rate and rhythm without murmurs, gallops, or rubs. RESPIRATORY: Breath sounds equal bilaterally. No accessory muscle use. GASTROINTESTINAL: Obese over hanging pannus. Wound VAC in place over lower abdomen. Abdomen soft, non-tender, nondistended. Band-Aid on wound that was just biopsied. EXTREMITIES: Chronic pedal edema. Brownish discoloration with an odor of B/L lower extremity. NEURO: Intermittent twitching in the upper and lower extremities. PSYCH: Teary-eyed. Procedures I&D Debridement Skin biopsy on 06/06 Medications and IVs Current Medications Medications (Trade) Dose Ordered Sig/Soren Route Start Time Stop Time Status Last Admin (Norvasc) 5 mg BID PO 05/14/16 21:00 Hold 05/26/16 21:07 (Ecotrin Ec) 81 mg DAILY PO 05/15/16 09:00 06/11/16 13:21 (Tenormin) 50 mg BID PO 05/14/16 21:00 Hold 05/26/16 21:07 (Lipitor) 80 mg HS PO 05/14/16 21:00 06/10/16 22:03 (Prinivil) 20 mg BID PO 05/14/16 21:00 Hold 05/26/16 21:15 (Rocaltrol) 0.5 mcg DAILY PO 05/15/16 09:00 06/11/16 13:20 (PROzac) 20 mg DAILY PO 05/15/16 09:00 06/11/16 13:21 (Neurontin) 100 mg BID PO 05/14/16 21:00 06/11/16 13:21 (Synthroid) 300 mcg DAILY@0600 PO 05/15/16 06:00 06/11/16 04:20 (Antivert) 25 mg TID PRN PO 05/14/16 14:15 (NS Flush) 2 ml UNSCH PRN FLUSH 05/14/16 14:30 05/28/16 18:09 (NS Flush) 2 ml BID FLUSH 05/14/16 21:00 06/11/16 09:00 (Zofran Inj) 4 mg Q6H PRN IVP 05/14/16 14:30 (Reglan Inj) 5 mg Q6H PRN IV PUSH 05/14/16 14:30 (Dulcolax Supp) 10 mg DAILY PRN MS 05/14/16 14:30 (Heparin Inj) 5,000 units Q12H SQ 05/14/16 16:00 06/11/16 16:26 Naloxone HCl 0.4 mg 0.4 mg UNSCH PRN IV 05/14/16 14:30 06/10/16 19:16 (NS 1000 ml Inj) 1,000 ml @ 0 mls/hr Q0M PRN IV 05/14/16 14:54 06/06/16 15:17 Heparin Sodium (Porcine) 8000 units 8,000 units UNSCH PRN IVF 05/14/16 15:00 (NS 1000 ml Inj) 1,000 ml @ 0 mls/hr Q0M PRN IV 05/14/16 14:54 05/30/16 09:36 (Mannitol Inj) 12.5 gm UNSCH PRN IV 05/14/16 15:00 (Albumin 25% Inj) 25 gm UNSCH PRN IV 05/14/16 15:00 (NS Flush) 5 ml UNSCH PRN IVF 05/14/16 15:00 (Heparin Inj) UNSCH PRN .XX 05/14/16 15:00 06/11/16 12:46 (Gentamicin (Dialysis) Inj) 20 mg UNSCH PRN IV 05/14/16 15:00 06/11/16 12:47 (Zofran Inj) 4 mg UNSCH PRN IV 05/14/16 15:00 (Benadryl) 25 mg UNSCH PRN PO 05/14/16 15:00 (Nitrostat Sl) 0.4 mg UNSCH PRN SL 05/14/16 15:00 (Catapres) 0.1 mg UNSCH PRN PO 05/14/16 15:00 (Epogen Inj) 10,000 units UNSCH PRN IV 05/14/16 15:00 06/11/16 12:46 (Gelfoam 12 Mm/7 Mm Top) 1 foam UNSCH PRN TOP 05/14/16 15:00 (D50w (Vial) Inj) 25 ml UNSCH PRN IV PUSH 05/14/16 18:45 (Glucagon Inj) 1 mg UNSCH PRN OTHER 05/14/16 18:45 (Santyl Oint) 1 applic DAILY EXT 05/17/16 15:00 06/11/16 09:00 (Levemir Inj) 30 units DAILY SQ 05/24/16 09:00 06/11/16 13:26 (Levemir Inj) 20 units HS SQ 05/23/16 21:00 06/10/16 22:03 (Luciana-Colace) 1 tab BID PO 05/26/16 21:00 06/11/16 13:20 (Sensipar) 30 mg DAILY PO 06/02/16 09:00 06/11/16 13:21 Miscellaneous Information Patient in critical care unit? Ass... Q361D XX 06/02/16 00:15 06/02/16 00:15 (Renvela) 1,600 mg TID PO 06/03/16 13:00 06/11/16 16:26 (Betadine 10% Top Soln) 1 applic BID TOPICAL 06/05/16 21:00 06/10/16 09:00 ([place] 5-325 Mg) 1 tab Q4H PRN PO 06/06/16 17:15 (Miralax) 17 gm DAILY PO 06/09/16 10:45 06/11/16 13:20 (Xanax) 0.125 mg Q6H PRN PO 06/10/16 09:30 (Pill Splitter) 1 ea UNSCH PRN OTHER 06/10/16 10:00 ([place]'S 0.25% Soln) 500 ml DAILY TOPICAL 06/10/16 15:00 06/11/16 13:23 ([place] 10-325 Mg) 1 tab Q4H PRN PO 06/10/16 15:45 06/11/16 17:28 (Dilaudid Pf Inj) 1 mg Q4H PRN IV PUSH 06/10/16 15:45 (Tylenol) 650 mg Q4H PRN PO 06/10/16 20:30 06/11/16 06:10 A/P Assessment and Plan Sepsis/ Abdominal pannus/ Wound cellulitis and ulcer General surgery and plastic surgery following. Started on vancomycin and Zosyn. Cultures growing pseudomonas. ID following. S/p cefepime. 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 Palliative care consult appreciated. - Antibiotics discontinued per ID. monitor. - wound care per surgery. S/p debridement 05/26. - physical therapy. Add occupational therapy. - incentive spirometry. - Status post skin biopsy on 06/06/[address] Meyers. Follow pathology. - per nephrology - sodium Thiosulfate with HD. - pain control with a bowel regimen. Palliative care titrating medications. Anemia Likely s/t ESRD. - transfused additional unit 06/10. - follow CBC. - epo as needed per nephrology. Acute metabolic encephalopathy Likely secondary to increased doses of Oramorph in the setting of renal disease. The patient is noted to have asterixis. She responded well to Narcan. EEG without seizure activity, but slowing consistent with encephalopathy. The patient is awake and alert at this time. - Pain control with [place] and Dilaudid for breakthrough. Palliative care considering methadone. - Neuro checks. - continue with dialysis. Morbid Obesity BMI 65. The pt says she had a lap band in the past. - the pt agrees with lifestyle modifications. DM II A1c 6.8%. Glucose relatively well controlled 06/11. - changed Levemir to 30 units daily, 20 units HS. Adjust as needed. - insulin sliding scale. ESRD On Hemodialysis //Fri. - dialysis per nephrology. Chronic low back pain and chronic pain syndrome Exacerbated by wounds. - pain control with a bowel regimen. Anxiety The pt had a likely panic attack 06/08. Resolved with Ativan. - low dose Xanax as needed. DVT prophylaxis with Heparin every 12 hours. Discharge Planning Awaiting clinical improvement and biopsy results. Jacoby Sanchez DO Jun 11, 2016 17:49
--- NOTE | 2016-06-11 18:59 | HHI.NPPN ---
Subjective History of Present Illness 55-year-old female known to me from before with past medical history of diabetes mellitus, history of morbid obesity, end-stage renal disease on hemodialysis three times per week, history of chronic anemia, congestive heart failure, spinal stenosis, chronic back pain, hypothyroidism who came to the hospital with complaint of worsening lower abdominal wound. I was called to see the patient for the management of dialysis. The patient has been on hemodialysis Friday, and Friday. Additional Remarks Patient is alert, was sleepy yesterday due to Morphine. Review of Systems General Constitutional: Fatigue Respiratory Lungs: SOB Cardiovascular Cardiac: GRIFFIN Objective Data Data 06/10/16 06/11/16 19:00 07:00 Intake Total 240 ml 480 ml Output Total 20 ml Balance 240 ml 460 ml Intake Oral 240 ml 480 ml IV Total 0 ml Output Urine Total 0 ml Drainage Total 20 ml # Voids 1 # Bowel Movements 0 0 Vital Signs Date Time Temp Pulse Resp B/P Pulse Ox O2 Delivery O2 Flow Rate FiO2 06/11/16 18:28 18 06/11/16 08:20 81 06/11/16 08:00 98.0 80 18 120/57 98 06/11/16 04:00 98.9 94 20 134/80 97 06/11/16 00:00 100.0 104 20 140/74 96 06/10/16 20:00 97 06/10/16 20:00 99.3 100 20 137/67 99 06/10/16 19:00 100.8 100 18 137/67 99 -: 06/11/16 0431 06/11/16 0431 Physical Exam General Appearance: No Acute Distress, Comfortable Eyes Eye Exam: Pupils Equal Throat Throat Exam: Oral Mucosa [place] & Moist Neck Neck Exam: Neck Supple Pulmonary Resp Exam: Breath Sounds Equal, Crackles, Decreased Bases, Diminished Breath Sounds Gastrointestinal/Abdomen GI Exam: Soft, Non-Tender, Distended Extremeties Extremities Exam: Moderate Edema, Pitting Edema, Dependent Edema Neurologic Neuro Exam: Alert, Awake, Oriented Assessment/Plan Assessment Summary: Anemia of CKD, Hypertension, End Stage Renal Disease Problem List: (1) Anemia in chronic kidney disease (CKD) (2) Open wound of abdomen (3) Chronic stasis dermatitis (4) End stage kidney disease Plan Now on Cefepime. Continue the wound care. ID is following. 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 Seen by plastic surgery and had debridement of Rt. buttock area. Also has debridement of abd. wound done. Now with wound Vac. Post skin Biopsy and started on Na. Thiosulfate treatment and Sensipar. On Renvela. skin Biopsy done, follow the results. HD done today, tolerated well. Problem Qualifiers (1) Open wound of abdomen: Qualified Code: S31.109A - Open wound of abdomen, initial encounter Valentin Jimenez MD Jun 11, 2016 18:59
[2016-06-11 20:00] VITALS: BP 125/59; PULSE 96; RESP 18; TEMP 100.3; O2SAT 91
[2016-06-11 20:30] VITALS: PULSE 94
[2016-06-11] MEDS: ATORVASTATIN 80 MG TAB PO SCH (21:26)
[2016-06-12] VITALS: BP 113/70; PULSE 86; RESP 18; TEMP 99.2; O2SAT 91
[2016-06-12 04:00] VITALS: BP 138/85; PULSE 82; RESP 18; TEMP 98; O2SAT 92
[2016-06-12] MEDS: LEVOTHYROXINE SODIUM 150 MCG TAB PO SCH (05:20)
[2016-06-12] MEDS: HIGH DOSE INSULIN NOVOLOG SUPPLEMENTAL SCALE SQ SCH ×4 (05:20→21:12)
[2016-06-12] MEDS: HEPARIN SODIUM - SQ 10,000 UNITS/ML VIAL SQ SCH ×2 (05:20→16:29)
[2016-06-12 05:47] LABS: HEMATOCRIT 23.5 % (35.0-46.0); MEAN CELL VOLUME 79.5 FL (80.0-100.0); MEAN CORPUSCULAR HEMOGLOBIN 24.1 PG (27.0-34.0); MEAN CORPUSCULAR HGB CONC 30.3 % (32.0-36.0); PLATELET COUNT 366 TH/MM3 (150-450); RED BLOOD COUNT 2.96 MIL/MM3 (4.00-5.30); RED CELL DISTRIBUTION WIDTH 19.7 % (11.6-17.2); WHITE BLOOD COUNT 13.4 TH/MM3 (4.0-11.0)
[2016-06-12] MEDS: ACETAMINOPHEN/HYDROcodone 325 MG/10 MG TAB PO PRN ×3 (05:51→14:01)
[2016-06-12 06:05] LABS: REVIEW FLAG FINAL
[2016-06-12 06:10] LABS: BICARBONATE 28.7 MEQ/L (21.0-32.0); MAGNESIUM 1.8 MG/DL (1.5-2.5); POTASSIUM 3.7 MEQ/L (3.5-5.1)
[2016-06-12 08:00] VITALS: BP 101/53; PULSE 86; RESP 18; TEMP 100.6; O2SAT 97
[2016-06-12] MEDS: POVIDONE IODINE 10% SOLN 480 ML BTL TOPICAL SCH ×2 (09:00→21:00)
[2016-06-12] MEDS: GABAPENTIN 100 MG CAP PO SCH ×2 (10:01→21:11)
[2016-06-12] MEDS: POLYETHYLENE GLYCOL 17 GM PKG PO SCH (10:01)
[2016-06-12] MEDS: DOCUSATE SODIUM 50 MG/SENNA 8.6 MG TAB PO SCH ×2 (10:01→21:11)
[2016-06-12] MEDS: FLUoxetine HCL 20 MG CAP PO SCH (10:01)
[2016-06-12] MEDS: CALCITRIOL 0.25 MCG CAP PO SCH (10:01)
[2016-06-12] MEDS: CINACALCET HYDROCHLORIDE 30 MG TAB PO SCH (10:01)
[2016-06-12] MEDS: ASPIRIN EC 81 MG TABEC PO SCH (10:01)
[2016-06-12] MEDS: SEVELAMER CARBONATE 800 MG TAB PO SCH ×3 (10:01→16:33)
[2016-06-12] MEDS: SODIUM CHLORIDE 0.9% FLUSH 5 ML FLUSH FLUSH SCH ×2 (10:02→21:00)
[2016-06-12] MEDS: INSULIN DETEMIR 100 UNITS/ML VIAL SQ SCH ×2 (10:03→21:12)
[2016-06-12] MEDS: COLLAGENASE OINT 30 GM TUBE EXT SCH (10:03)
[2016-06-12] MEDS: SODIUM HYPOCHLORITE 0.25% 500 ML BTL TOPICAL SCH (10:04)
--- NOTE | 2016-06-12 10:46 | HHI.NPPN ---
Subjective History of Present Illness 55-year-old female known to me from before with past medical history of diabetes mellitus, history of morbid obesity, end-stage renal disease on hemodialysis three times per week, history of chronic anemia, congestive heart failure, spinal stenosis, chronic back pain, hypothyroidism who came to the hospital with complaint of worsening lower abdominal wound. I was called to see the patient for the management of dialysis. The patient has been on hemodialysis Friday, and Friday. Additional Remarks Patient is alert, has pain in the back, no SOB. Review of Systems General Constitutional: Fatigue Respiratory Lungs: SOB Cardiovascular Cardiac: GRIFFIN Objective Data Data 06/11/16 06/12/16 19:00 07:00 Intake Total 120 ml 360 ml Output Total 3730 ml 20 ml Balance -3610 ml 340 ml Intake Oral 120 ml 360 ml IV Total 0 ml 0 ml Output Urine Total 200 ml Drainage Total 30 ml 20 ml Hemodialysis 3500 ml # Voids 2 # Bowel Movements 0 Vital Signs Date Time Temp Pulse Resp B/P Pulse Ox O2 Delivery O2 Flow Rate FiO2 06/12/16 04:00 98.0 82 18 138/85 92 06/12/16 00:00 99.2 86 18 113/70 91 06/11/16 20:30 94 06/11/16 20:00 100.3 96 18 125/59 91 06/11/16 18:28 18 -: 06/12/16 0458 06/12/16 0458 Physical Exam General Appearance: No Acute Distress, Comfortable Eyes Eye Exam: Pupils Equal Throat Throat Exam: Oral Mucosa [place] & Moist Neck Neck Exam: Neck Supple Pulmonary Resp Exam: Breath Sounds Equal, Crackles, Decreased Bases, Diminished Breath Sounds Gastrointestinal/Abdomen GI Exam: Soft, Non-Tender, Distended Extremeties Extremities Exam: Moderate Edema, Pitting Edema, Dependent Edema Neurologic Neuro Exam: Alert, Awake, Oriented Assessment/Plan Assessment Summary: Anemia of CKD, Hypertension, End Stage Renal Disease Problem List: (1) Anemia in chronic kidney disease (CKD) (2) Open wound of abdomen (3) Chronic stasis dermatitis (4) End stage kidney disease Plan Now on Cefepime. Continue the wound care. ID is following. 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 Seen by plastic surgery and had debridement of Rt. buttock area. Also has debridement of abd. wound done. Now with wound Vac. Post skin Biopsy and started on Na. Thiosulfate treatment and Sensipar. On Renvela. skin Biopsy done, follow the results. HD done yesterday. Continue wound care, with wound Vac. HD in AM, her tremors are better, will do 4 hrs HD this week. Problem Qualifiers (1) Open wound of abdomen: Qualified Code: S31.109A - Open wound of abdomen, initial encounter Valentin Jimenez MD Jun 12, 2016 10:46
--- NOTE | 2016-06-12 11:54 | HHI.PR ---
Subjective Remarks This is a pleasant 55 y/o Female who came to Emergency room as we know she has Hypertension DM II, Hyperlipidemia, Chronic back pain, ESRD on Friday, and Friday , presents to the emergency department for evaluation of worsening abdominal wound. The wound worsened for the last six weeks, she has Wound care by Doctor Maryanne who performed I and D, on multiple opportunities, has wound care twice a day with packing in place, is been feeling weaker, increased drainage and Pain from the wound, as per Doctor Maryanne recommended Surgical management for Surgical debridement, Continue Hemodialysis on and Friday, status post I and D performed by assistive technology specialist. 06/12 Seen in her bedroom in the presence of Nurse Miss Lomeli asking to change to fourth floor due to that her Bed is able to go through the doors when she goes to HD, No nausea vomit or diarrhea. awaiting abdominal biopsy. her Mother and sister and son present. Objective Vital Signs Date Time Temp Pulse Resp B/P Pulse Ox O2 Delivery O2 Flow Rate FiO2 06/12/16 11:02 17 06/12/16 08:00 100.6 86 18 101/53 97 06/12/16 04:00 98.0 82 18 138/85 92 06/12/16 00:00 99.2 86 18 113/70 91 06/11/16 20:30 94 06/11/16 20:00 100.3 96 18 125/59 91 I/O 06/11/16 06/11/16 06/11/16 06/12/16 06/12/16 06/12/16 07:00 15:00 23:00 07:00 15:00 23:00 Intake Total 240 ml 120 ml 120 ml 240 ml Output Total 20 ml 3730 ml 0 ml 20 ml Balance 220 ml -3610 ml 120 ml 220 ml Intake Oral 240 ml 120 ml 120 ml 240 ml IV Total 0 ml 0 ml 0 ml 0 ml Output Urine Total 0 ml 200 ml Drainage Total 20 ml 30 ml 0 ml 20 ml Hemodialysis 3500 ml # Voids 1 1 # Bowel Movements 0 0 Result Diagram: 06/12/16 0458 06/12/16 0458 Imaging Last Impressions Chest X-Ray 06/08/16 0000 Signed Impressions: Service Date/Time: Wednesday, June 08, 2016 19:03 - CONCLUSION: The lungs are clear. No evidence of pneumothorax. Len Benz MD Procedures I and D of Pannus cellulitis. Other Results Laboratory Tests Test 06/10/16 06/10/16 06/12/16 10:11 21:30 04:58 Blood Type O POSITIVE Antibody Screen NEGATIVE Crossmatch Leukocyte-Reduced Red Blood Cells Blood Bank Comment Blood Gas Puncture Site RT BRACHIAL Blood Gas Patient Temperature 98.6 Blood Gas HCO3 26 mmol/L Blood Gas Base Excess 1.6 mmol/L Blood Gas Oxygen Saturation 95 % Arterial Blood pH 7.39 Arterial Blood Partial 44 mmHg Pressure CO2 Arterial Blood Partial 107 mmHg Pressure O2 Arterial Blood Oxygen Content 10.3 Vol % Arterial Blood 2.1 % Carboxyhemoglobin Arterial Blood Methemoglobin 0.7 % Blood Gas Hemoglobin 7.5 G/DL Oxygen Delivery Device NASAL CANNULA Blood Gas Liter Flow 3.5 L/M White Blood Count 13.4 TH/MM3 Red Blood Count 2.96 MIL/MM3 Hemoglobin 7.1 GM/DL Hematocrit 23.5 % Mean Corpuscular Volume 79.5 FL Mean Corpuscular Hemoglobin 24.1 PG Mean Corpuscular Hemoglobin 30.3 % Concent Red Cell Distribution Width 19.7 % Platelet Count 366 TH/MM3 Mean Platelet Volume 7.3 FL Sodium Level 137 MEQ/L Potassium Level 3.7 MEQ/L Chloride Level 96 MEQ/L Carbon Dioxide Level 28.7 MEQ/L Anion Gap 12 MEQ/L Blood Urea Nitrogen 33 MG/DL Creatinine 5.02 MG/DL Estimat Glomerular Filtration 9 ML/MIN Rate Random Glucose 89 MG/DL Calcium Level 8.2 MG/DL Magnesium Level 1.8 MG/DL Objective Remarks GENERAL: Morbidly obese female patient in no acute distress. SKIN: Warm and dry. HEAD: Normocephalic and atraumatic. EYES: No injection, drainage, or hyphema noted. PERRLA. EOMI. ENT: No nasal drainage noted. Oropharynx is clear. NECK: Supple and the trachea is midline. CARDIOVASCULAR: Regular rate and rhythm. RESPIRATORY: Breath sounds are equal bilaterally with no accessory muscle use, wheezing, rhonchi, or crackles. GASTROINTESTINAL: Abdomen is soft, non-tender, and nondistended. vacuum in place. MUSCULOSKELETAL: No obvious deformities, swelling, cyanosis, or ecchymosis is present throughout the upper and lower extremities. NEUROLOGICAL: Awake, alert, and oriented. Normal speech and gait. Cranial nerves are grossly intact. Medications and IVs Current Medications Medications (Trade) Dose Ordered Sig/Soren Route Start Time Stop Time Status Last Admin (Norvasc) 5 mg BID PO 05/14/16 21:00 Hold 05/26/16 21:07 (Ecotrin Ec) 81 mg DAILY PO 05/15/16 09:00 06/12/16 10:01 (Tenormin) 50 mg BID PO 05/14/16 21:00 Hold 05/26/16 21:07 (Lipitor) 80 mg HS PO 05/14/16 21:00 06/11/16 21:26 (Prinivil) 20 mg BID PO 05/14/16 21:00 Hold 05/26/16 21:15 (Rocaltrol) 0.5 mcg DAILY PO 05/15/16 09:00 06/12/16 10:01 (PROzac) 20 mg DAILY PO 05/15/16 09:00 06/12/16 10:01 (Neurontin) 100 mg BID PO 05/14/16 21:00 06/12/16 10:01 (Synthroid) 300 mcg DAILY@0600 PO 05/15/16 06:00 06/12/16 05:20 (Antivert) 25 mg TID PRN PO 05/14/16 14:15 (NS Flush) 2 ml UNSCH PRN FLUSH 05/14/16 14:30 05/28/16 18:09 (NS Flush) 2 ml BID FLUSH 05/14/16 21:00 06/12/16 10:02 (Zofran Inj) 4 mg Q6H PRN IVP 05/14/16 14:30 (Reglan Inj) 5 mg Q6H PRN IV PUSH 05/14/16 14:30 (Dulcolax Supp) 10 mg DAILY PRN [place] 05/14/16 14:30 (Heparin Inj) 5,000 units Q12H SQ 05/14/16 16:00 06/12/16 05:20 Naloxone HCl 0.4 mg 0.4 mg UNSCH PRN IV 05/14/16 14:30 06/10/16 19:16 (NS 1000 ml Inj) 1,000 ml @ 0 mls/hr Q0M PRN IV 05/14/16 14:54 06/06/16 15:17 Heparin Sodium (Porcine) 8000 units 8,000 units UNSCH PRN IVF 05/14/16 15:00 (NS 1000 ml Inj) 1,000 ml @ 0 mls/hr Q0M PRN IV 05/14/16 14:54 05/30/16 09:36 (Mannitol Inj) 12.5 gm UNSCH PRN IV 05/14/16 15:00 (Albumin 25% Inj) 25 gm UNSCH PRN IV 05/14/16 15:00 (NS Flush) 5 ml UNSCH PRN IVF 05/14/16 15:00 (Heparin Inj) UNSCH PRN .XX 05/14/16 15:00 06/11/16 12:46 (Gentamicin (Dialysis) Inj) 20 mg UNSCH PRN IV 05/14/16 15:00 06/11/16 12:47 (Zofran Inj) 4 mg UNSCH PRN IV 05/14/16 15:00 (Benadryl) 25 mg UNSCH PRN PO 05/14/16 15:00 (Nitrostat Sl) 0.4 mg UNSCH PRN SL 05/14/16 15:00 (Catapres) 0.1 mg UNSCH PRN PO 05/14/16 15:00 (Epogen Inj) 10,000 units UNSCH PRN IV 05/14/16 15:00 06/11/16 12:46 (Gelfoam 12 Mm/7 Mm Top) 1 foam UNSCH PRN TOP 05/14/16 15:00 (D50w (Vial) Inj) 25 ml UNSCH PRN IV PUSH 05/14/16 18:45 (Glucagon Inj) 1 mg UNSCH PRN OTHER 05/14/16 18:45 (Santyl Oint) 1 applic DAILY EXT 05/17/16 15:00 06/12/16 10:03 (Levemir Inj) 30 units DAILY SQ 05/24/16 09:00 06/12/16 10:03 (Levemir Inj) 20 units HS SQ 05/23/16 21:00 06/11/16 21:31 (Luciana-Colace) 1 tab BID PO 05/26/16 21:00 06/12/16 10:01 (Sensipar) 30 mg DAILY PO 06/02/16 09:00 06/12/16 10:01 Miscellaneous Information Patient in critical care unit? Ass... Q361D XX 06/02/16 00:15 06/02/16 00:15 (Renvela) 1,600 mg TID PO 06/03/16 13:00 06/12/16 10:01 (Betadine 10% Top Soln) 1 applic BID TOPICAL 06/05/16 21:00 06/10/16 09:00 (Petrolia 5-325 Mg) 1 tab Q4H PRN PO 06/06/16 17:15 (Miralax) 17 gm DAILY PO 06/09/16 10:45 06/12/16 10:01 (Xanax) 0.125 mg Q6H PRN PO 06/10/16 09:30 (Pill Splitter) 1 ea UNSCH PRN OTHER 06/10/16 10:00 (Dakin'S 0.25% Soln) 500 ml DAILY TOPICAL 06/10/16 15:00 06/12/16 10:04 (Petrolia 10-325 Mg) 1 tab Q4H PRN PO 06/10/16 15:45 06/12/16 10:02 (Dilaudid Pf Inj) 1 mg Q4H PRN IV PUSH 06/10/16 15:45 (Tylenol) 650 mg Q4H PRN PO 06/10/16 20:30 06/11/16 06:10 A/P Problem List: (1) Type II diabetes mellitus with neurological manifestations, uncontrolled ICD Code: E11.49 (2) End stage renal disease on dialysis ICD Code: N18.6 (3) Anemia in chronic kidney disease (CKD) ICD Code: N18.9 (4) Open wound of abdomen ICD Code: S31.109A Assessment and Plan 1. Sepsis/Abdominal pannus wound cellulitis and ulcer, consulted General Surgery , started on Vancomycin and Zosyn and follow blood cultures and wound cultures growing Pseudomonas taken Abdominal biopsy 06/06/16 to rule out Calciphylaxis, Antibiotics discontinued by ID specialist, I and D performed 05/26 continue Wound care and Vacuum, - pain control with a bowel regimen. Palliative care titrating medications. 2. Morbid Obesity strongly recommended diet and exercise, weight loss warranted. 3. Hypertension controlled. 4. DM II continue sliding scale better control, Hemoglobin A1C 6.8. 5. Hyperlipidemia continue home medicines 6. ESRD on Hemodialysis and Friday, at this time going for HD 7. chronic low back pain and chronic pain syndrome asked to increase pain medicine increased frequency to every four hours. 8. Electrolyte derangement patient followed by Nephrology. 9. Anemia on chronic disease worsened with Acute blood loss anemia, Recent blood transfusion 06/10 and EPO by Nephrology 10. Acute Metabolic Encephalopathy likely secondary to Oramorph EEG no seizure activity Pain controlled with Petrolia and Dilaudid for Breakthrough pain. 11. Chronic low back pain and chronic pain syndrome,exacerbated by Wounds continue pain control and bowel regimen. Discussed with Nurse Miss Okeefe, Patient, and her Son, Sister and Son in the room all questions answered to the best of my abilities. DVT prophylaxis with Heparin every 12 hours. Code Status Full Code. Discharge Planning Awaiting final recommendations by Specialists for Rehab management. Problem Qualifiers (1) Open wound of abdomen: Qualified Code: S31.109A - Open wound of abdomen, initial encounter Ken Franks MD Jun 12, 2016 11:54 disease. The patient is noted to have asterixis. She responded well to Narcan. EEG without seizure activity, but slowing consistent with encephalopathy. The patient is awake and alert at this time. - Pain control with Petrolia and Dilaudid for breakthrough. Palliative care considering methadone. - Neuro checks. - continue with dialysis. Morbid Obesity BMI 65. The pt says she had a lap band in the past. - the pt agrees with lifestyle modifications. DM II A1c 6.8%. Glucose relatively well controlled 06/11. - changed Levemir to 30 units daily, 20 units HS. Adjust as needed. - insulin sliding scale. ESRD On Hemodialysis /Fri. - dialysis per nephrology. Chronic low back pain and chronic pain syndrome Exacerbated by wounds. - pain control with a bowel regimen. Anxiety The pt had a likely panic attack 06/08. Resolved with Ativan. - low dose Xanax as needed. DVT prophylaxis with Heparin every 12 hours. Discharge Planning Awaiting clinical improvement and biopsy results. Discharge Planning Awaiting final recommendations by ID specialist and Surgery. Problem Qualifiers (1) Open wound of abdomen: Qualified Code: S31.109A - Open wound of abdomen, initial encounter Ken Franks MD Jun 12, 2016 11:54
[2016-06-12 12:00] VITALS: BP 107/57; PULSE 87; RESP 19; TEMP 98.8; O2SAT 94
[2016-06-12] MEDS: ALPRAZolam 0.25 MG TAB PO PRN (12:03)
[2016-06-12 16:00] VITALS: BP 110/54; PULSE 81; RESP 18; TEMP 97.4; O2SAT 93
--- NOTE | 2016-06-12 16:16 | HHI.HCPN ---
Reason for visit a. To assist with evaluation and management of symptoms including: follow up on wound pain, anxiety, depression b. To assist medical decision maker(s) with: better understanding of current medical conditions; weighing benefits/burdens of medical treatment options; making medical treatment decisions. Subjective/Interval History Pt on my visit is sleepy and lethargic. Son at bedside. Pt just had Xanax. She does endorse burning pain, abdomen and back. Given at what had happened, pt and son want wait one more day before initiating another long acting such as methadone. Pt and son are still amenable to it. Pt due for dialysis tomorrow. Pt has not had any IV dilaudid thus far. Family/friend interactions son at bedside. Advance Directives Living Will: Copy in medical record Advance Directive Specifics Date completed: 09/2015 Health Care Surrogate(s): Primary surrogate named as son oMy Foley, secondary Robb Toledo . Objective Vital Signs Date Time Temp Pulse Resp B/P Pulse Ox O2 Delivery O2 Flow Rate FiO2 06/12/16 15:01 19 06/12/16 12:00 98.8 87 19 107/57 94 06/12/16 08:00 100.6 86 18 101/53 97 06/12/16 04:00 98.0 82 18 138/85 92 06/12/16 00:00 99.2 86 18 113/70 91 06/11/16 20:30 94 06/11/16 20:00 100.3 96 18 125/59 91 Intake & Output 06/12/16 06/12/16 07:00 19:00 Intake Total 360 ml 475 ml Output Total 20 ml 30 ml Balance 340 ml 445 ml Intake Oral 360 ml 475 ml IV Total 0 ml 0 ml Drainage Total 20 ml 30 ml # Voids 2 0 # Bowel Movements 1 Physical Exam CONSTITUTIONAL/GENERAL: This is orbitally obese, chronically ill-appearing female, pleasant, somewhat confused, little bit more lethargic today. TUBES/LINES/DRAINS: Dialysis access right upper chest nearing jugular. PIV RUE. SKIN: No jaundice, rashes, or lesions. Bilateral lower extremities with significant hyperkeratotic skin thickening . Skin temperature warm. HEAD: Atraumatic. Normocephalic. EYES: Pupils equal and round and reactive. Extraocular motions intact. No scleral icterus. No injection or drainage. Fundi not examined. ENT: Hearing grossly normal. Nose without bleeding or purulent drainage. Throat without visible erythema, exudates, masses, or lesions. Few missing teeth. NECK: Trachea midline. Supple, nontender. No palpable thyroid enlargement or nodularity. CARDIOVASCULAR: Heart sounds regular, heart sounds distant. No murmur appreciated. Significant lymphedema to lower extremities I'm unable to palpate pedal pulses, palpable radial pulses RESPIRATORY/CHEST: Symmetric, unlabored respirations on room air. Clear to auscultation. Decreased air movement throughout. GASTROINTESTINAL: Abdomen obese, areas of firmness. + tender to palpable. Bowel sounds present. No palpable masses- somewhat limited abdominal exam. several large wounds noted : Right Abdomen w WOund VAC dressing intact, rt hip with dressing intact. Unable to visualize 2/2 to dressings. Reported wound to buttocks I did not visualize. GENITOURINARY: Without palpable bladder distension. MUSCULOSKELETAL: Extremities without clubbing, cyanosis, or edema. No joint tenderness or effusion noted. No calf tenderness. No mottling or clubbing. LYMPHATICS: No palpable cervical or supraclavicular adenopathy. NEUROLOGICAL: Awake and alert-a bit confused. Moves all 4 extremities with generalized weakness. PSYCHIATRIC: . No anxiety evident. No apparent hallucinations or other psychotic thought process. Confused Diagnostic Tests Laboratory Laboratory Tests Test 06/10/16 06/10/16 06/10/16 06/11/16 04:39 10:11 21:30 04:31 White Blood Count 14.6 TH/MM3 13.4 TH/MM3 (4.0-11.0) (4.0-11.0) Red Blood Count 2.90 MIL/MM3 2.87 MIL/MM3 (4.00-5.30) (4.00-5.30) Hemoglobin 7.0 GM/DL 7.2 GM/DL (11.6-15.3) (11.6-15.3) Hematocrit 22.9 % 22.9 % (35.0-46.0) (35.0-46.0) Mean Corpuscular Volume 79.1 FL 79.8 FL (80.0-100.0) (80.0-100.0) Mean Corpuscular Hemoglobin 24.1 PG 25.1 PG (27.0-34.0) (27.0-34.0) Mean Corpuscular Hemoglobin 30.5 % 31.4 % Concent (32.0-36.0) (32.0-36.0) Red Cell Distribution Width 21.0 % 20.0 % (11.6-17.2) (11.6-17.2) Platelet Count 387 TH/MM3 352 TH/MM3 (150-450) (150-450) Mean Platelet Volume 7.2 FL 7.4 FL (7.0-11.0) (7.0-11.0) Sodium Level 135 MEQ/L 134 MEQ/L (136-145) (136-145) Potassium Level 4.4 MEQ/L 3.9 MEQ/L (3.5-5.1) (3.5-5.1) Chloride Level 94 MEQ/L 94 MEQ/L (98-107) (98-107) Carbon Dioxide Level 27.5 MEQ/L 26.5 MEQ/L (21.0-32.0) (21.0-32.0) Anion Gap 14 MEQ/L (5-15) 14 MEQ/L (5-15) Blood Urea Nitrogen 36 MG/DL (7-18) 45 MG/DL (7-18) Creatinine 5.16 MG/DL 6.67 MG/DL (0.50-1.00) (0.50-1.00) Estimat Glomerular Filtration 9 ML/MIN (>89) 6 ML/MIN (>89) Rate Random Glucose 95 MG/DL 163 MG/DL (74-106) (74-106) Calcium Level 7.9 MG/DL 8.0 MG/DL (8.5-10.1) (8.5-10.1) Magnesium Level 1.8 MG/DL 2.0 MG/DL (1.5-2.5) (1.5-2.5) Blood Type O POSITIVE Antibody Screen NEGATIVE Crossmatch Leukocyte-Reduced Red Blood Cells Blood Bank Comment Blood Gas Puncture Site RT BRACHIAL Blood Gas Patient Temperature 98.6 Blood Gas HCO3 26 mmol/L (22-26) Blood Gas Base Excess 1.6 mmol/L (-2-2) Blood Gas Oxygen Saturation 95 % (90-100) Arterial Blood pH 7.39 (7.380-7.420) Arterial Blood Partial 44 mmHg (38-42) Pressure CO2 Arterial Blood Partial 107 mmHg Pressure O2 (61-120) Arterial Blood Oxygen Content 10.3 Vol % (12.0-20.0) Arterial Blood 2.1 % (0-4) Carboxyhemoglobin Arterial Blood Methemoglobin 0.7 % (0-2) Blood Gas Hemoglobin 7.5 G/DL (12.0-16.0) Oxygen Delivery Device NASAL CANNULA Blood Gas Liter Flow 3.5 L/M Test 06/12/16 04:58 White Blood Count 13.4 TH/MM3 (4.0-11.0) Red Blood Count 2.96 MIL/MM3 (4.00-5.30) Hemoglobin 7.1 GM/DL (11.6-15.3) Hematocrit 23.5 % (35.0-46.0) Mean Corpuscular Volume 79.5 FL (80.0-100.0) Mean Corpuscular Hemoglobin 24.1 PG (27.0-34.0) Mean Corpuscular Hemoglobin 30.3 % Concent (32.0-36.0) Red Cell Distribution Width 19.7 % (11.6-17.2) Platelet Count 366 TH/MM3 (150-450) Mean Platelet Volume 7.3 FL (7.0-11.0) Sodium Level 137 MEQ/L (136-145) Potassium Level 3.7 MEQ/L (3.5-5.1) Chloride Level 96 MEQ/L (98-107) Carbon Dioxide Level 28.7 MEQ/L (21.0-32.0) Anion Gap 12 MEQ/L (5-15) Blood Urea Nitrogen 33 MG/DL (7-18) Creatinine 5.02 MG/DL (0.50-1.00) Estimat Glomerular Filtration 9 ML/MIN (>89) Rate Random Glucose 89 MG/DL (74-106) Calcium Level 8.2 MG/DL (8.5-10.1) Magnesium Level 1.8 MG/DL (1.5-2.5) Result Diagram: 06/12/16 0458 06/12/16 0458 Imaging Last Impressions Chest X-Ray 06/08/16 0000 Signed Impressions: Service Date/Time: Wednesday, June 08, 2016 19:03 - CONCLUSION: The lungs are clear. No evidence of pneumothorax. Len Benz MD Procedures * 05/17I&D done by Dr. Moradia--->> overall area of excision approximately 25 cm x 10 cm vertical, at a depth of 6-8 cm. * 05/26 to OR for repeat I&D Assessment and Plan Disease Oriented Problem List: (1) Hypertension, benign (2) Pseudomonas aeruginosa infection (3) Symptomatic anemia (4) Anemia in chronic kidney disease (CKD) (5) End stage renal disease on dialysis (6) Anxiety (7) [place]ix[place] (8) Sepsis (9) Diabetes (10) Chronic back pain Symptom Scale: (1) Anxiety 0-10 Scale: Unable to quantify (2) Depression 0-10 Scale: Unable to quantify (3) Malnutrition 0-10 Scale: Unable to quantify (4) Pain 0-10 Scale: Unable to quantify Pertinent Non-Medical Issues Psychosocial:Patient , lives at home with her son and significant other. Supported by adult son, sister, sig other, and mother. 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 Originally from [place], lived in [place] for many years on and off. 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 5 wishes directive document completed in 2016 names primary HCS as (son) Moy Foley, secondary as (sig other) Robb Toledo. Ethical issues impacting care: Important Contacts Son Moy Foley- [phone] Prognosis This unfortunate patient was admitted with worsening wounds to the abdomen, which have continued to worsen despite aggressive antibiotic and surgical management. She has multiple chronic medical comorbidities including diabetes, cardiovascular disease and end-stage renal failure dependent on dialysis. 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 She has been initiated on treatment with sodium thiosulfate, which to my understanding the impact on overall survival rates is not yet known. Given her overall compromised state she remains high risk for further complications and setbacks. Code Status: Full Code Plan * Legal decision maker: Patient is currently able to make her own decisions. She has documents naming her son is primary decision-maker should she become incapacitated. Her significant other is named as secondary. * Goals: Patient's goals are aggressive, she wishes to continue whatever therapies are recommended to help her overall improvement and long-term prognosis. * CODE STATUS: Full code * SYMPTOMS: --Pain-ongoing chronic back pain related to prior injury, previously well controlled with [place] use in the home. New or diffuse burning type pain across/ under abdominal tissues she describes as feeling like a "shingles like "pain. Pt had been on long acting morphine, which was discontinue due to lethargy (narcan given) Given her renal insufficiency, methadone or fentanyl would be the better option. Pt is a good candidate for methadone. Pt lethargic today, possibly due to Xanax. Discussed with family, will hold off on starting methadone today, reconsider tomorrow. Family/pt understand the difficulty in finding the right pain regiment/and pain control without the sedation. Continue prn norco and dilaudid IV. --anxiety- few episodes of anxiety feels "panicked" during hospital course- has 0.125 MG xanax available, appears effective thus far. -- depression- situational, patient with multiple chronic comorbid medical conditions-exploration with patient use of antidepressant for long-term assistance with depression related to long-term disease process. She is currently on Prozac 20 mg daily. Could consider up titration if needed. --Malnutrition-poor appetite reported during hospital course. Albumin low. Consider nutritional supplement, renal appropriate formula such as Nepro. * Palliative care will continue to follow during hospital course as condition evolves, to assist patient/decision-maker with understanding of medical conditions, weighing benefits/burdens of treatment options, for clarification of goals of treatment. Additionally will assist with any symptoms of palliative concern Time Spent Total Floor Time (mins): 35 Face to Face Time (mins): 20 >50% Counseling/Coord of Care: Yes Attestation To help prompt me to consider important information that might be impacting today's encounter and assessment, information from prior notes written by myself or my colleagues may have been "brought forward" into today's note. My signature on this note, however, is an attestation that I personally performed the exam, history, and/or decision-making noted today, and, unless otherwise indicated, the interactions with patient, family, and staff as well as the review of records all occurred today. I also attest that the listed assessment and stated plan reflect my best clinical judgment today based on the combination of historical information, prior notes, and today's exam/ interactions. When time spent is documented, it refers only to time spent today by the signer, or if indicated, combined time spent today by collaborating physician/nurse practitioner. Reid Wright MD Jun 12, 2016 16:16
[2016-06-12 20:00] VITALS: BP 159/70; PULSE 89; RESP 20; TEMP 99.1; O2SAT 96
[2016-06-12] MEDS: ATORVASTATIN 80 MG TAB PO SCH (21:11)
[2016-06-13] VITALS (7 sets, daily range): BP systolic 112–138; BP diastolic 55–66; PULSE 80–110; RESP 16–20; TEMP 97.8–100.2; O2SAT 91–98
[2016-06-13] MEDS: HEPARIN SODIUM - SQ 10,000 UNITS/ML VIAL SQ SCH ×2 (04:01→16:43)
[2016-06-13] MEDS: LEVOTHYROXINE SODIUM 150 MCG TAB PO SCH (05:49)
[2016-06-13] MEDS: HIGH DOSE INSULIN NOVOLOG SUPPLEMENTAL SCALE SQ SCH ×4 (06:24→21:00)
[2016-06-13] MEDS: POVIDONE IODINE 10% SOLN 480 ML BTL TOPICAL SCH ×2 (07:10→21:00)
[2016-06-13] MEDS: ACETAMINOPHEN/HYDROcodone 325 MG/10 MG TAB PO PRN ×3 (07:59→17:32)
[2016-06-13] MEDS: POLYETHYLENE GLYCOL 17 GM PKG PO SCH (09:00)
[2016-06-13] MEDS: SODIUM CHLORIDE 0.9% FLUSH 5 ML FLUSH FLUSH SCH ×2 (09:00→21:00)
[2016-06-13] MEDS: SEVELAMER CARBONATE 800 MG TAB PO SCH ×3 (09:00→16:43)
[2016-06-13] MEDS: DOCUSATE SODIUM 50 MG/SENNA 8.6 MG TAB PO SCH ×2 (09:00→21:21)
[2016-06-13] MEDS: EPOETIN ALFA 10,000 UNITS/ML VIAL IV PRN (11:54)
--- NOTE | 2016-06-13 11:58 | HHI.NPPN ---
Subjective History of Present Illness 55-year-old female known to me from before with past medical history of diabetes mellitus, history of morbid obesity, end-stage renal disease on hemodialysis three times per week, history of chronic anemia, congestive heart failure, spinal stenosis, chronic back pain, hypothyroidism who came to the hospital with complaint of worsening lower abdominal wound. I was called to see the patient for the management of dialysis. The patient has been on hemodialysis Friday, and Friday. Additional Remarks Patient is alert, seen during HD, no SOB, has some pain in her abd. wounds. Review of Systems General Constitutional: Fatigue Respiratory Lungs: SOB Cardiovascular Cardiac: GRIFFIN Objective Data Data 06/12/16 06/13/16 19:00 07:00 Intake Total 475 ml 600 ml Output Total 30 ml 0 ml Balance 445 ml 600 ml Intake Oral 475 ml 600 ml IV Total 0 ml Output Urine Total 0 ml Drainage Total 30 ml 0 ml # Voids 0 0 # Bowel Movements 1 2 Vital Signs Date Time Temp Pulse Resp B/P Pulse Ox O2 Delivery O2 Flow Rate FiO2 06/13/16 08:00 100.2 90 16 112/55 91 06/13/16 04:00 99.4 85 20 138/66 96 06/13/16 00:00 99.5 80 18 126/56 98 06/12/16 20:00 99.1 89 20 159/70 96 06/12/16 16:00 97.4 81 18 110/54 93 06/12/16 15:01 19 06/12/16 12:00 98.8 87 19 107/57 94 -: 06/12/16 0458 06/12/16 0458 Physical Exam General Appearance: No Acute Distress, Comfortable Eyes Eye Exam: Pupils Equal Throat Throat Exam: Oral [place]uc[place] & Moist Neck Neck Exam: Neck Supple Pulmonary Resp Exam: Breath Sounds Equal, Crackles, Decreased Bases, Diminished Breath Sounds Gastrointestinal/Abdomen GI Exam: Soft, Non-Tender, Distended Extremeties Extremities Exam: Moderate Edema, Pitting Edema, Dependent Edema Neurologic Neuro Exam: Alert, Awake, Oriented Assessment/Plan Assessment Summary: Anemia of CKD, Hypertension, End Stage Renal Disease Problem List: (1) Anemia in chronic kidney disease (CKD) (2) Open wound of abdomen (3) Chronic stasis dermatitis (4) End stage kidney disease Plan Now on Cefepime. Continue the wound care. ID is following. 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 Seen by plastic surgery and had debridement of Rt. buttock area. Also has debridement of abd. wound done. Now with wound Vac. Post skin Biopsy and started on Na. Thiosulfate treatment and Sensipar. On Renvela. skin Biopsy done, follow the results. HD now, removing 3 liters. Doing 4 hrs. HD to see if her tremors improve. Has low grade fever, if persist, consider ID for possible wound infection. Problem Qualifiers (1) Open wound of abdomen: Qualified Code: S31.109A - Open wound of abdomen, initial encounter Valentin Jimenez MD Jun 13, 2016 11:58
[2016-06-13] MEDS: SODIUM THIOSULFATE INJ 12,500 MG in WATER STERILE FOR INJ 100 ML IV PRN (12:57)
[2016-06-13] MEDS: GENTAMICIN SULFATE (DIALYSIS USE ONLY) 20 MG/2 ML VIAL IV PRN (14:05)
[2016-06-13] MEDS: HEPARIN SODIUM - IV 10,000 UNITS/10 ML VIAL PRN (14:05)
[2016-06-13] MEDS: ONDANSETRON HCL 4 MG/2 ML VIAL IVP PRN (14:35)
[2016-06-13] MEDS: CALCITRIOL 0.25 MCG CAP PO SCH (14:50)
[2016-06-13] MEDS: GABAPENTIN 100 MG CAP PO SCH ×2 (14:50→21:21)
[2016-06-13] MEDS: FLUoxetine HCL 20 MG CAP PO SCH (14:50)
[2016-06-13] MEDS: INSULIN DETEMIR 100 UNITS/ML VIAL SQ SCH ×2 (14:50→21:21)
[2016-06-13] MEDS: ASPIRIN EC 81 MG TABEC PO SCH (14:51)
[2016-06-13] MEDS: ALPRAZolam 0.25 MG TAB PO PRN (15:02)
--- NOTE | 2016-06-13 15:15 | HHI.PR ---
Subjective Remarks Follow up abdominal wound, sepsis, diabetes. She reporting pain of 8/10, unchanged from yesterday. She reports feeling nauseous today. Just returned from dialysis. Objective Vitals Vital Signs Date Time Temp Pulse Resp B/P Pulse Ox O2 Delivery O2 Flow Rate FiO2 06/13/16 08:00 100.2 90 16 112/55 91 06/13/16 04:00 99.4 85 20 138/66 96 06/13/16 00:00 99.5 80 18 126/56 98 06/12/16 20:00 99.1 89 20 159/70 96 06/12/16 16:00 97.4 81 18 110/54 93 I/O 06/12/16 06/12/16 06/12/16 06/13/16 06/13/16 06/13/16 07:00 15:00 23:00 07:00 15:00 23:00 Intake Total 240 ml 475 ml 360 ml 240 ml Output Total 20 ml 30 ml 0 ml 0 ml Balance 220 ml 445 ml 360 ml 240 ml Intake Oral 240 ml 475 ml 360 ml 240 ml IV Total 0 ml 0 ml Output Urine Total 0 ml Drainage Total 20 ml 30 ml 0 ml 0 ml # Voids 1 0 0 # Bowel Movements 1 2 0 Result Diagram: 06/12/16 0458 06/12/16 0458 Imaging Last Impressions Chest X-Ray 06/08/16 0000 Signed Impressions: Service Date/Time: Wednesday, June 08, 2016 19:03 - CONCLUSION: The lungs are clear. No evidence of pneumothorax. Len Benz MD Objective Remarks General: Morbidly obese female in no acute distress. Heart: Regular rate and rhythm. No murmur. Lungs: Clear to auscultation bilaterally. No wheezes, rales, or rhonchi. Breathing is nonlabored. Abdomen: Soft. Extremities: No lower extremity edema. Psych: Alert and oriented. Procedures I&D Debridement Skin biopsy on 06/06 Urinary Catheter: No Vascular Central Line Catheter: No A/P Problem List: (1) Open wound of abdomen ICD Code: S31.109A Status: Acute (2) Type II diabetes mellitus with neurological manifestations, uncontrolled ICD Code: E11.49 Status: Chronic (3) End stage renal disease on dialysis ICD Code: N18.6 Status: Chronic (4) Hypertension, benign ICD Code: I10 Status: Chronic Assessment and Plan 1. Sepsis secondary to abdominal pannus wound/cellulitis: Appreciate general surgery and plastic surgery recommendations. Antibiotics discontinued by infectious disease. Status post incision and drainage on 05/26/16. Continue wound care, pain control. Possible calciphylaxis. 2. Morbid obesity: Patient has been counseled. 3. Hypertension: Blood pressure is well controlled. 4. Diabetes mellitus: Monitor Accu-Cheks and cover with sliding scale insulin. 5. Hyperlipidemia: Continue home medications. 6. End-stage renal disease: On hemodialysis Friday, , Friday. Appreciate nephrology management. 7. Chronic low back pain, chronic pain syndrome: Continue pain control. Appreciate palliative care recommendations. 8. Electrolyte abnormalities: Appreciate nephrology recommendations. 9. Anemia of chronic disease worsened with acute blood loss anemia: Status post transfusion on 06/10/16 as well as erythropoietin by nephrology. 10. Acute metabolic encephalopathy: Improved. Likely secondary to morphine. 11. DVT prophylaxis: Subcutaneous heparin. 12. CODE STATUS: Full code. Problem Qualifiers (1) Open wound of abdomen: Qualified Code: S31.109A - Open wound of abdomen, initial encounter Marvin Wick MD Jun 13, 2016 15:15
[2016-06-13] MEDS: CINACALCET HYDROCHLORIDE 30 MG TAB PO SCH (16:32)
--- NOTE | 2016-06-13 16:34 | HHI.HCPN ---
Reason for visit a. To assist with evaluation and management of symptoms including: follow up on wound pain, anxiety, depression b. To assist medical decision maker(s) with: better understanding of current medical conditions; weighing benefits/burdens of medical treatment options; making medical treatment decisions. Subjective/Interval History Pt on my visit is more alert compare to my visit yesterday. She had dialysis. Pt condinue to endorse burning pain abdominal and back, which she says is worse. She has had multiple prn norco, and rate pain 10/10. She says she is anxious. Family was at bedside, pt's son and mother. Pt is talking about going home. At the same time she says she knows she has to stay. When I spoke about hospice, she decline at this time. She is not ready to transition to comfort measures only. Family/friend interactions Pt's son , and later mom was at bedside. Advance Directives Living Will: Copy in medical record Advance Directive Specifics Date completed: 09/2015 Health Care Surrogate(s): Primary surrogate named as son Moy Foley, secondary Robb Toledo . Objective Vital Signs Date Time Temp Pulse Resp B/P Pulse Ox O2 Delivery O2 Flow Rate FiO2 06/13/16 08:00 100.2 90 16 112/55 91 06/13/16 04:00 99.4 85 20 138/66 96 06/13/16 00:00 99.5 80 18 126/56 98 06/12/16 20:00 99.1 89 20 159/70 96 Intake & Output 06/13/16 06/13/16 07:00 19:00 Intake Total 600 ml Output Total 0 ml Balance 600 ml Intake Oral 600 ml Output Urine Total 0 ml Drainage Total 0 ml # Voids 0 # Bowel Movements 2 Physical Exam CONSTITUTIONAL/GENERAL: Obese, chronically ill-appearing female, pleasant, alert , not confused. TUBES/LINES/DRAINS: Dialysis access right upper chest nearing jugular. PIV RUE. SKIN: No jaundice, rashes, or lesions. Bilateral lower extremities with significant hyperkeratotic skin thickening . Skin temperature warm. HEAD: Atraumatic. Normocephalic. EYES: Pupils equal and round and reactive. Extraocular motions intact. No scleral icterus. No injection or drainage. Fundi not examined. ENT: Hearing grossly normal. Nose without bleeding or purulent drainage. Throat without visible erythema, exudates, masses, or lesions. Few missing teeth. NECK: Trachea midline. Supple, nontender. No palpable thyroid enlargement or nodularity. CARDIOVASCULAR: Heart sounds regular, heart sounds distant. No murmur appreciated. Significant lymphedema to lower extremities I'm unable to palpate pedal pulses, palpable radial pulses RESPIRATORY/CHEST: Symmetric, unlabored respirations on room air. Clear to auscultation. Decreased air movement throughout. GASTROINTESTINAL: Abdomen obese, areas of firmness. + tender to palpable. Bowel sounds present. No palpable masses- somewhat limited abdominal exam. several large wounds noted : Right Abdomen w WOund VAC dressing intact, rt hip with dressing intact. Unable to visualize 2/2 to dressings. Reported wound to buttocks I did not visualize. GENITOURINARY: Without palpable bladder distension. MUSCULOSKELETAL: Extremities without clubbing, cyanosis, or edema. No joint tenderness or effusion noted. No calf tenderness. No mottling or clubbing. LYMPHATICS: No palpable cervical or supraclavicular adenopathy. NEUROLOGICAL: Awake and alert not confused Moves all 4 extremities with generalized weakness. PSYCHIATRIC: . anxious Diagnostic Tests Laboratory Laboratory Tests Test 06/10/16 06/11/16 06/12/16 21:30 04:31 04:58 Blood Gas Puncture Site RT BRACHIAL Blood Gas Patient Temperature 98.6 Blood Gas HCO3 26 mmol/L (22-26) Blood Gas Base Excess 1.6 mmol/L (-2-2) Blood Gas Oxygen Saturation 95 % (90-100) Arterial Blood pH 7.39 (7.380-7.420) Arterial Blood Partial 44 mmHg (38-42) Pressure CO2 Arterial Blood Partial 107 mmHg Pressure O2 (61-120) Arterial Blood Oxygen Content 10.3 Vol % (12.0-20.0) Arterial Blood 2.1 % (0-4) Carboxyhemoglobin Arterial Blood Methemoglobin 0.7 % (0-2) Blood Gas Hemoglobin 7.5 G/DL (12.0-16.0) Oxygen Delivery Device NASAL CANNULA Blood Gas Liter Flow 3.5 L/M White Blood Count 13.4 TH/MM3 13.4 TH/MM3 (4.0-11.0) (4.0-11.0) Red Blood Count 2.87 MIL/MM3 2.96 MIL/MM3 (4.00-5.30) (4.00-5.30) Hemoglobin 7.2 GM/DL 7.1 GM/DL (11.6-15.3) (11.6-15.3) Hematocrit 22.9 % 23.5 % (35.0-46.0) (35.0-46.0) Mean Corpuscular Volume 79.8 FL 79.5 FL (80.0-100.0) (80.0-100.0) Mean Corpuscular Hemoglobin 25.1 PG 24.1 PG (27.0-34.0) (27.0-34.0) Mean Corpuscular Hemoglobin 31.4 % 30.3 % Concent (32.0-36.0) (32.0-36.0) Red Cell Distribution Width 20.0 % 19.7 % (11.6-17.2) (11.6-17.2) Platelet Count 352 TH/MM3 366 TH/MM3 (150-450) (150-450) Mean Platelet Volume 7.4 FL 7.3 FL (7.0-11.0) (7.0-11.0) Sodium Level 134 MEQ/L 137 MEQ/L (136-145) (136-145) Potassium Level 3.9 MEQ/L 3.7 MEQ/L (3.5-5.1) (3.5-5.1) Chloride Level 94 MEQ/L 96 MEQ/L (98-107) (98-107) Carbon Dioxide Level 26.5 MEQ/L 28.7 MEQ/L (21.0-32.0) (21.0-32.0) Anion Gap 14 MEQ/L (5-15) 12 MEQ/L (5-15) Blood Urea Nitrogen 45 MG/DL (7-18) 33 MG/DL (7-18) Creatinine 6.67 MG/DL 5.02 MG/DL (0.50-1.00) (0.50-1.00) Estimat Glomerular Filtration 6 ML/MIN (>89) 9 ML/MIN (>89) Rate Random Glucose 163 MG/DL 89 MG/DL (74-106) (74-106) Calcium Level 8.0 MG/DL 8.2 MG/DL (8.5-10.1) (8.5-10.1) Magnesium Level 2.0 MG/DL 1.8 MG/DL (1.5-2.5) (1.5-2.5) Result Diagram: 06/12/168 06/12/168 Procedures * 05/17I&D done by Dr. Johnson--->> overall area of excision approximately 25 cm x 10 cm vertical, at a depth of 6-8 cm. * 05/26 to OR for repeat I&D Assessment and Plan Disease Oriented Problem List: (1) Hypertension, benign (2) Pseudomonas aeruginosa infection (3) Symptomatic anemia (4) Anemia in chronic kidney disease (CKD) (5) End stage renal disease on dialysis (6) Anxiety (7) [place] (8) Sepsis (9) Diabetes (10) Chronic back pain Symptom Scale: (1) Anxiety 0-10 Scale: Unable to quantify (2) Depression 0-10 Scale: Unable to quantify (3) Malnutrition 0-10 Scale: Unable to quantify (4) Pain 0-10 Scale: 10 Pertinent Non-Medical Issues Psychosocial:Patient , lives at home with her son and significant other. Supported by adult son, sister, sig other, and mother. 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 Originally from [place], lived in [place] for many years on and off. 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 5 wishes directive document completed in 2016 names primary HCS as (son) Moy Foley, secondary as (sig other) Robb Toledo. Ethical issues impacting care: Important Contacts Son Moy Foley- [phone] Prognosis This unfortunate patient was admitted with worsening wounds to the abdomen, which have continued to worsen despite aggressive antibiotic and surgical management. She has multiple chronic medical comorbidities including diabetes, cardiovascular disease and end-stage renal failure dependent on dialysis. 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 She has been initiated on treatment with sodium thiosulfate, which to my understanding the impact on overall survival rates is not yet known. Given her overall compromised state she remains high risk for further complications and setbacks. Code Status: Full Code Plan * Legal decision maker: Patient is currently able to make her own decisions. She has documents naming her son is primary decision-maker should she become incapacitated. Her significant other is named as secondary. * Goals: Patient's goals are aggressive, she wishes to continue whatever therapies are recommended to help her overall improvement and long-term prognosis. Hospice was discussed but she is not ready to transition to comfort measures only, stop dialysis. * CODE STATUS: Full code * SYMPTOMS: --Pain-ongoing chronic back pain related to prior injury, previously well controlled with [place] use in the home. New or diffuse burning type pain across/ under abdominal tissues she describes as feeling like a "shingles like "pain. Pt had been on long acting morphine, which was discontinue due to lethargy (narcan given) Given her renal insufficiency, methadone or fentanyl would be the better option. Pt is a good candidate for methadone. Start on methadone 2.5 mg PO Q12 hours atc. Continue prn norco and dilaudid IV. --anxiety- few episodes of anxiety feels "panicked" during hospital course- has 0.125 MG xanax available, appears effective. -- depression- situational, patient with multiple chronic comorbid medical conditions-exploration with patient use of antidepressant for long-term assistance with depression related to long-term disease process. She is currently on Prozac 20 mg daily. Could consider up titration if needed. * Palliative care will continue to follow during hospital course as condition evolves, to assist patient/decision-maker with understanding of medical conditions, weighing benefits/burdens of treatment options, for clarification of goals of treatment. Additionally will assist with any symptoms of palliative concern. Case d/w attending physician. Time Spent Total Floor Time (mins): 35 Face to Face Time (mins): 22 Attestation To help prompt me to consider important information that might be impacting today's encounter and assessment, information from prior notes written by myself or my colleagues may have been "brought forward" into today's note. My signature on this note, however, is an attestation that I personally performed the exam, history, and/or decision-making noted today, and, unless otherwise indicated, the interactions with patient, family, and staff as well as the review of records all occurred today. I also attest that the listed assessment and stated plan reflect my best clinical judgment today based on the combination of historical information, prior notes, and today's exam/ interactions. When time spent is documented, it refers only to time spent today by the signer, or if indicated, combined time spent today by collaborating physician/nurse practitioner. Reid Wright MD Jun 13, 2016 16:34 Reid Wright MD Jun 13, 2016 16:34
[2016-06-13] MEDS: METHADONE HCL 10 MG TAB PO SCH (21:20)
[2016-06-13] MEDS: ATORVASTATIN 80 MG TAB PO SCH (21:21)
[2016-06-13] MEDS: COLLAGENASE OINT 30 GM TUBE EXT SCH (21:41)
[2016-06-13] MEDS: SODIUM HYPOCHLORITE 0.25% 500 ML BTL TOPICAL SCH (21:42)
[2016-06-14] VITALS: BP 141/60; PULSE 88; RESP 20; TEMP 97.9; O2SAT 93
[2016-06-14 04:00] VITALS: BP 140/65; PULSE 87; RESP 18; TEMP 97; O2SAT 93
[2016-06-14] MEDS: HEPARIN SODIUM - SQ 10,000 UNITS/ML VIAL SQ SCH ×2 (04:25→15:50)
[2016-06-14] MEDS: HIGH DOSE INSULIN NOVOLOG SUPPLEMENTAL SCALE SQ SCH ×4 (04:26→21:00)
[2016-06-14] MEDS: ACETAMINOPHEN/HYDROcodone 325 MG/10 MG TAB PO PRN ×4 (04:26→22:48)
[2016-06-14] MEDS: LEVOTHYROXINE SODIUM 150 MCG TAB PO SCH (04:26)
[2016-06-14 05:24] LABS: AUTOMATED NEUTROPHIL # 11.3 TH/MM3 (1.8-7.7); BASOPHIL # 0.1 TH/MM3 (0-0.2); BASOPHIL % 0.9 % (0.0-2.0); EOSINOPHIL # 0.2 TH/MM3 (0-0.4); EOSINOPHIL % 1.2 % (0.0-4.0); HEMATOCRIT 23.9 % (35.0-46.0); LYMPH % 13.4 % (9.0-44.0); MEAN CELL VOLUME 79.3 FL (80.0-100.0); MEAN CORPUSCULAR HEMOGLOBIN 24.2 PG (27.0-34.0); MEAN CORPUSCULAR HGB CONC 30.6 % (32.0-36.0); MONO % 7.9 % (0.0-8.0); NEUT % 76.6 % (16.0-70.0); PLATELET COUNT 416 TH/MM3 (150-450); RED BLOOD COUNT 3.01 MIL/MM3 (4.00-5.30); RED CELL DISTRIBUTION WIDTH 19.9 % (11.6-17.2); WHITE BLOOD COUNT 14.7 TH/MM3 (4.0-11.0)
[2016-06-14 05:46] LABS: POTASSIUM 4.2 MEQ/L (3.5-5.1)
[2016-06-14 05:53] LABS: HEMO FLAGS AUTO DIFF
[2016-06-14 07:01] LABS: CRENATED RBCS 3+ (NORMAL); PLATELET ESTIMATE SMEAR HIGH (NORMAL); PLATELET MORPHOLOGY NORMAL (NORMAL); SCAN/DIFF AUTO DIFF CONFIRMED
[2016-06-14 08:00] VITALS: BP 169/75; PULSE 83; RESP 18; TEMP 97.2; O2SAT 96
[2016-06-14] MEDS: ASPIRIN EC 81 MG TABEC PO SCH (08:33)
[2016-06-14] MEDS: CALCITRIOL 0.25 MCG CAP PO SCH (08:33)
[2016-06-14] MEDS: CINACALCET HYDROCHLORIDE 30 MG TAB PO SCH (08:33)
[2016-06-14] MEDS: POVIDONE IODINE 10% SOLN 480 ML BTL TOPICAL SCH ×2 (08:34→21:00)
[2016-06-14] MEDS: FLUoxetine HCL 20 MG CAP PO SCH (08:35)
[2016-06-14] MEDS: SEVELAMER CARBONATE 800 MG TAB PO SCH ×3 (08:35→17:12)
[2016-06-14] MEDS: METHADONE HCL 10 MG TAB PO SCH ×2 (08:35→21:27)
[2016-06-14] MEDS: GABAPENTIN 100 MG CAP PO SCH ×2 (08:35→21:22)
[2016-06-14] MEDS: INSULIN DETEMIR 100 UNITS/ML VIAL SQ SCH ×2 (08:36→21:00)
[2016-06-14] MEDS: POLYETHYLENE GLYCOL 17 GM PKG PO SCH (08:37)
[2016-06-14] MEDS: SODIUM CHLORIDE 0.9% FLUSH 5 ML FLUSH FLUSH SCH ×2 (08:37→21:00)
[2016-06-14] MEDS: DOCUSATE SODIUM 50 MG/SENNA 8.6 MG TAB PO SCH ×2 (08:38→21:22)
[2016-06-14] MEDS: COLLAGENASE OINT 30 GM TUBE EXT SCH (09:00)
--- NOTE | 2016-06-14 10:12 | PD.PLAS.PN ---
Subjective Remarks Patient sitting on edge of bed preparing to move to chair with physical therapy. Objective Vital Signs Date Time Temp Pulse Resp B/P Pulse Ox O2 Delivery O2 Flow Rate FiO2 06/14/16 08:00 97.2 83 18 169/75 96 06/14/16 04:00 97.0 87 18 140/65 93 06/14/16 00:00 97.9 88 20 141/60 93 06/13/16 20:27 84 06/13/16 20:00 97.8 86 18 134/62 92 06/13/16 17:36 94 06/13/16 16:00 99.6 110 17 117/60 93 I/O 06/13/16 06/13/16 06/13/16 06/14/16 06/14/16 06/14/16 07:00 15:00 23:00 07:00 15:00 23:00 Intake Total 240 ml 250 ml 420 ml 240 ml Output Total 0 ml 200 ml 0 ml Balance 240 ml 250 ml 220 ml 240 ml Intake Oral 240 ml 250 ml 420 ml 240 ml Drainage Total 0 ml 200 ml 0 ml # Voids 0 2 0 0 # Bowel Movements 0 0 1 0 Laboratory Tests Test 06/14/16 04:55 White Blood Count 14.7 Red Blood Count 3.01 Hemoglobin 7.3 Hematocrit 23.9 Mean Corpuscular Volume 79.3 Mean Corpuscular Hemoglobin 24.2 Mean Corpuscular Hemoglobin 30.6 Concent Red Cell Distribution Width 19.9 Platelet Count 416 Mean Platelet Volume 7.0 Neutrophils (%) (Auto) 76.6 Lymphocytes (%) (Auto) 13.4 Monocytes (%) (Auto) 7.9 Eosinophils (%) (Auto) 1.2 Basophils (%) (Auto) 0.9 Neutrophils # (Auto) 11.3 Lymphocytes # (Auto) 2.0 Monocytes # (Auto) 1.2 Eosinophils # (Auto) 0.2 Basophils # (Auto) 0.1 CBC Comment AUTO DIFF Differential Comment AUTO DIFF CONFIRMED Platelet Estimate HIGH Platelet Morphology Comment NORMAL Crenated Cell 3+ Sodium Level 134 Potassium Level 4.2 Chloride Level 95 Carbon Dioxide Level 30.0 Anion Gap 9 Blood Urea Nitrogen 31 Creatinine 4.44 Estimat Glomerular Filtration 10 Rate Random Glucose 91 Calcium Level 8.7 Result Diagram: 06/14/16 0455 06/14/165 Other Results No change to wound, lateral pannus. Sutures at biopsy site have broken. Periwound skin remains tender, but erythema is reduced. Assessment and Plan Diagnosis: (1) Open wound of abdomen Assessment and Plan Continue with dressing changes as ordered. Can remove sutures. Will continue to monitor. No biopsy results yet. Dana Romero Jun 14, 2016 10:12
--- NOTE | 2016-06-14 11:55 | HHI.NPPN ---
Subjective History of Present Illness 55-year-old female known to me from before with past medical history of diabetes mellitus, history of morbid obesity, end-stage renal disease on hemodialysis three times per week, history of chronic anemia, congestive heart failure, spinal stenosis, chronic back pain, hypothyroidism who came to the hospital with complaint of worsening lower abdominal wound. I was called to see the patient for the management of dialysis. The patient has been on hemodialysis Friday, and Friday. Additional Remarks Patient is alert, feeling better, pain in wounds almost same. Review of Systems General Constitutional: Fatigue Respiratory Lungs: SOB Cardiovascular Cardiac: GRIFFIN Objective Data Data 06/13/16 06/14/16 19:00 07:00 Intake Total 250 ml 660 ml Output Total 200 ml Balance 250 ml 460 ml Intake Oral 250 ml 660 ml Drainage Total 200 ml # Voids 2 0 # Bowel Movements 0 1 Vital Signs Date Time Temp Pulse Resp B/P Pulse Ox O2 Delivery O2 Flow Rate FiO2 06/14/16 08:00 97.2 83 18 169/75 96 06/14/16 04:00 97.0 87 18 140/65 93 06/14/16 00:00 97.9 88 20 141/60 93 06/13/16 20:27 84 06/13/16 20:00 97.8 86 18 134/62 92 06/13/16 17:36 94 06/13/16 16:00 99.6 110 17 117/60 93 -: 06/14/16 0455 06/14/16 0455 Physical Exam General Appearance: No Acute Distress, Comfortable Eyes Eye Exam: Pupils Equal Throat Throat Exam: Oral Mucosa [place] & Moist Neck Neck Exam: Neck Supple Pulmonary Resp Exam: Breath Sounds Equal, Crackles, Decreased Bases, Diminished Breath Sounds Gastrointestinal/Abdomen GI Exam: Soft, Non-Tender, Distended Extremeties Extremities Exam: Moderate Edema, Pitting Edema, Dependent Edema Neurologic Neuro Exam: Alert, Awake, Oriented Assessment/Plan Assessment Summary: Anemia of CKD, Hypertension, End Stage Renal Disease Problem List: (1) Anemia in chronic kidney disease (CKD) (2) Open wound of abdomen (3) Chronic stasis dermatitis (4) End stage kidney disease Plan Now on Cefepime. Continue the wound care. ID is following. 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 Seen by plastic surgery and had debridement of Rt. buttock area. Also has debridement of abd. wound done. Now with wound Vac. Post skin Biopsy and started on Na. Thiosulfate treatment and Sensipar. On Renvela. skin Biopsy done, follow the results. HD done yesterday. Doing 4 hrs HD this week, for possible uremia. Check Po4 in AM. Problem Qualifiers (1) Open wound of abdomen: Qualified Code: S31.109A - Open wound of abdomen, initial encounter Valentin Jimenez MD Jun 14, 2016 11:55
[2016-06-14 12:00] VITALS: BP 198/75; PULSE 82; RESP 18; TEMP 97.4; O2SAT 93
--- NOTE | 2016-06-14 12:18 | HHI.HCPN ---
Reason for visit a. To assist with evaluation and management of symptoms including: follow up on wound pain, anxiety, depression b. To assist medical decision maker(s) with: better understanding of current medical conditions; weighing benefits/burdens of medical treatment options; making medical treatment decisions. Subjective/Interval History Biopsy not back yet. Pt pain at the back and the abdomen, is the same 6-8, but she endorse feeling good this morning. She understands methadone could not be titrated every day, but requires 3-4 days for dose increase. No prn dialudid , and she had just try to rely on [place]. Family/friend interactions friend was in the room. Advance Directives Living Will: Copy in medical record Advance Directive Specifics Date completed: 09/2015 Health Care Surrogate(s): Primary surrogate named as son Moy Foley, secondary Robb Toledo . Objective Vital Signs Date Time Temp Pulse Resp B/P Pulse Ox O2 Delivery O2 Flow Rate FiO2 06/14/16 08:00 97.2 83 18 169/75 96 06/14/16 04:00 97.0 87 18 140/65 93 06/14/16 00:00 97.9 88 20 141/60 93 06/13/16 20:27 84 06/13/16 20:00 97.8 86 18 134/62 92 06/13/16 17:36 94 06/13/16 16:00 99.6 110 17 117/60 93 Physical Exam CONSTITUTIONAL/GENERAL: obese, chronically ill-appearing female, pleasant, alert, not confused. TUBES/LINES/DRAINS: Dialysis access right upper chest nearing jugular. PIV RUE. SKIN: No jaundice, rashes, or lesions. Bilateral lower extremities with significant hyperkeratotic skin thickening . Skin temperature warm. HEAD: Atraumatic. Normocephalic. EYES: Pupils equal and round and reactive. Extraocular motions intact. No scleral icterus. No injection or drainage. Fundi not examined. ENT: Hearing grossly normal. Nose without bleeding or purulent drainage. Throat without visible erythema, exudates, masses, or lesions. Few missing teeth. NECK: Trachea midline. Supple, nontender. No palpable thyroid enlargement or nodularity. CARDIOVASCULAR: Heart sounds regular, heart sounds distant. No murmur appreciated. Significant lymphedema to lower extremities I'm unable to palpate pedal pulses, palpable radial pulses RESPIRATORY/CHEST: Symmetric, unlabored respirations on room air. Clear to auscultation. Decreased air movement throughout. GASTROINTESTINAL: Abdomen obese, areas of firmness. + tender to palpable. Bowel sounds present. No palpable masses- somewhat limited abdominal exam. several large wounds noted : Right Abdomen w WOund VAC dressing intact, rt hip with dressing intact. Unable to visualize 2/2 to dressings. Reported wound to buttocks I did not visualize. GENITOURINARY: Without palpable bladder distension. MUSCULOSKELETAL: Extremities without clubbing, cyanosis, or edema. No joint tenderness or effusion noted. No calf tenderness. No mottling or clubbing. LYMPHATICS: No palpable cervical or supraclavicular adenopathy. NEUROLOGICAL: Awake and alert not confused Moves all 4 extremities with generalized weakness. PSYCHIATRIC: . anxious Diagnostic Tests Laboratory Laboratory Tests Test 06/12/16 06/14/16 04:58 04:55 White Blood Count 13.4 TH/MM3 14.7 TH/MM3 (4.0-11.0) (4.0-11.0) Red Blood Count 2.96 MIL/MM3 3.01 MIL/MM3 (4.00-5.30) (4.00-5.30) Hemoglobin 7.1 GM/DL 7.3 GM/DL (11.6-15.3) (11.6-15.3) Hematocrit 23.5 % 23.9 % (35.0-46.0) (35.0-46.0) Mean Corpuscular Volume 79.5 FL 79.3 FL (80.0-100.0) (80.0-100.0) Mean Corpuscular Hemoglobin 24.1 PG 24.2 PG (27.0-34.0) (27.0-34.0) Mean Corpuscular Hemoglobin 30.3 % 30.6 % Concent (32.0-36.0) (32.0-36.0) Red Cell Distribution Width 19.7 % 19.9 % (11.6-17.2) (11.6-17.2) Platelet Count 366 TH/MM3 416 TH/MM3 (150-450) (150-450) Mean Platelet Volume 7.3 FL 7.0 FL (7.0-11.0) (7.0-11.0) Sodium Level 137 MEQ/L 134 MEQ/L (136-145) (136-145) Potassium Level 3.7 MEQ/L 4.2 MEQ/L (3.5-5.1) (3.5-5.1) Chloride Level 96 MEQ/L 95 MEQ/L (98-107) (98-107) Carbon Dioxide Level 28.7 MEQ/L 30.0 MEQ/L (21.0-32.0) (21.0-32.0) Anion Gap 12 MEQ/L (5-15) 9 MEQ/L (5-15) Blood Urea Nitrogen 33 MG/DL (7-18) 31 MG/DL (7-18) Creatinine 5.02 MG/DL 4.44 MG/DL (0.50-1.00) (0.50-1.00) Estimat Glomerular Filtration 9 ML/MIN (>89) 10 ML/MIN (>89) Rate Random Glucose 89 MG/DL 91 MG/DL (74-106) (74-106) Calcium Level 8.2 MG/DL 8.7 MG/DL (8.5-10.1) (8.5-10.1) Magnesium Level 1.8 MG/DL (1.5-2.5) Neutrophils (%) (Auto) 76.6 % (16.0-70.0) Lymphocytes (%) (Auto) 13.4 % (9.0-44.0) Monocytes (%) (Auto) 7.9 % (0.0-8.0) Eosinophils (%) (Auto) 1.2 % (0.0-4.0) Basophils (%) (Auto) 0.9 % (0.0-2.0) Neutrophils # (Auto) 11.3 TH/MM3 (1.8-7.7) Lymphocytes # (Auto) 2.0 TH/MM3 (1.0-4.8) Monocytes # (Auto) 1.2 TH/MM3 (0-0.9) Eosinophils # (Auto) 0.2 TH/MM3 (0-0.4) Basophils # (Auto) 0.1 TH/MM3 (0-0.2) CBC Comment AUTO DIFF Differential Comment AUTO DIFF CONFIRMED Platelet Estimate HIGH (NORMAL) Platelet Morphology Comment NORMAL (NORMAL) Crenated Cell 3+ (NORMAL) Result Diagram: 06/14/1645406/14/16 041 Imaging Last Impressions Chest X-Ray 06/08/16 0000 Signed Impressions: Service Date/Time: Wednesday, June 08, 2016 19:03 - CONCLUSION: The lungs are clear. No evidence of pneumothorax. Len Benz MD Procedures * 05/17I&D done by Dr. Johnson--->> overall area of excision approximately 25 cm x 10 cm vertical, at a depth of 6-8 cm. * 05/26 to OR for repeat I&D Assessment and Plan Disease Oriented Problem List: (1) Hypertension, benign (2) Pseudomonas aeruginosa infection (3) Symptomatic anemia (4) Anemia in chronic kidney disease (CKD) (5) End stage renal disease on dialysis (6) Anxiety (7) Asterixis (8) Sepsis (9) Diabetes (10) Chronic back pain Symptom Scale: (1) Anxiety 0-10 Scale: Unable to quantify (2) Depression 0-10 Scale: Unable to quantify (3) Malnutrition 0-10 Scale: Unable to quantify (4) Pain 0-10 Scale: 10 Pertinent Non-Medical Issues Psychosocial:Patient , lives at home with her son and significant other. Supported by adult son, sister, sig other, and mother. 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 Originally from [place], lived in [place] many years on and off. Spiritual:ad[employer]ist- director water and waste services has been in Legal:Patient currently capacitated and able to make her own medical decisions. 5 wishes directive document completed in 2016 names primary HCS as (son) Moy Foley, secondary as (sig other) Robb Toledo. Ethical issues impacting care: Important Contacts Son Moy Foley- [phone] Prognosis This unfortunate patient was admitted with worsening wounds to the abdomen, which have continued to worsen despite aggressive antibiotic and surgical management. She has multiple chronic medical comorbidities including diabetes, cardiovascular disease and end-stage renal failure dependent on dialysis. 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 She has been initiated on treatment with sodium thiosulfate, which to my understanding the impact on overall survival rates is not yet known. Given her overall compromised state she remains high risk for further complications and setbacks. Code Status: Full Code Plan * Legal decision maker: Patient is currently able to make her own decisions. She has documents naming her son is primary decision-maker should she become incapacitated. Her significant other is named as secondary. * Goals: Patient's goals are aggressive, she wishes to continue whatever therapies are recommended to help her overall improvement and long-term prognosis. Hospice was brought up with patient, but at this time she stated "I want to remain positive" not ready to give up dialysis or aggressive care. * CODE STATUS: Full code * SYMPTOMS: --Pain-ongoing chronic back pain related to prior injury, previously well controlled with [place] use in the home. New or diffuse burning type pain across/ under abdominal tissues she describes as feeling like a "shingles like "pain. Pt had been on long acting morphine, which was discontinue due to lethargy (narcan given) Given her renal insufficiency, methadone or fentanyl would be the better option. Pt is a good candidate for methadone and was initiated 06/13/2016 at 2.5 mg q 12 hours atc Family/pt understand the difficulty in finding the right pain regiment/and pain control without the sedation. Continue prn norco and dilaudid IV. Will initiate methadone 2.5 mg PO q 12 hours atc. --anxiety- few episodes of anxiety feels "panicked" during hospital course- has 0.125 MG xanax available, appears effective. -- depression- situational, patient with multiple chronic comorbid medical conditions-exploration with patient use of antidepressant for long-term assistance with depression related to long-term disease process. She is currently on Prozac 20 mg daily. Could consider up titration if needed. --Malnutrition-poor appetite reported during hospital course. Albumin low. Consider nutritional supplement, renal appropriate formula such as Nepro. * Palliative care will continue to follow during hospital course as condition evolves, to assist patient/decision-maker with understanding of medical conditions, weighing benefits/burdens of treatment options, for clarification of goals of treatment. Additionally will assist with any symptoms of palliative concern. Time Spent Total Floor Time (mins): 35 Face to Face Time (mins): 20 Attestation To help prompt me to consider important information that might be impacting today's encounter and assessment, information from prior notes written by myself or my colleagues may have been "brought forward" into today's note. My signature on this note, however, is an attestation that I personally performed the exam, history, and/or decision-making noted today, and, unless otherwise indicated, the interactions with patient, family, and staff as well as the review of records all occurred today. I also attest that the listed assessment and stated plan reflect my best clinical judgment today based on the combination of historical information, prior notes, and today's exam/ interactions. When time spent is documented, it refers only to time spent today by the signer, or if indicated, combined time spent today by collaborating physician/nurse practitioner. Reid Wright MD Jun 14, 2016 12:18
[2016-06-14] MEDS: SODIUM HYPOCHLORITE 0.25% 500 ML BTL TOPICAL SCH (13:30)
[2016-06-14] MEDS: HYDROmorphone HCL PF 1 MG/ML VIAL IV PUSH PRN (13:31)
--- NOTE | 2016-06-14 14:36 | HHI.PR ---
Subjective Remarks Follow up abdominal wound, diabetes. The patient states that she feels a little better today. Nausea has improved. Still having pain from the abdominal wound. Objective Vitals Vital Signs Date Time Temp Pulse Resp B/P Pulse Ox O2 Delivery O2 Flow Rate FiO2 06/14/16 12:00 97.4 82 18 198/75 93 06/14/16 08:00 97.2 83 18 169/75 96 06/14/16 04:00 97.0 87 18 140/65 93 06/14/16 00:00 97.9 88 20 141/60 93 06/13/16 20:27 84 06/13/16 20:00 97.8 86 18 134/62 92 06/13/16 17:36 94 06/13/16 16:00 99.6 110 17 117/60 93 I/O 06/13/16 06/13/16 06/13/16 06/14/16 06/14/16 06/14/16 07:00 15:00 23:00 07:00 15:00 23:00 Intake Total 240 ml 250 ml 420 ml 240 ml Output Total 0 ml 200 ml 0 ml 50 ml Balance 240 ml 250 ml 220 ml 240 ml -50 ml Intake Oral 240 ml 250 ml 420 ml 240 ml Drainage Total 0 ml 200 ml 0 ml 50 ml # Voids 0 2 0 0 # Bowel Movements 0 0 1 0 Result Diagram: 06/14/16 0455 06/14/16 0455 Imaging Last Impressions Chest X-Ray 06/08/16 0000 Signed Impressions: Service Date/Time: Wednesday, June 08, 2016 19:03 - CONCLUSION: The lungs are clear. No evidence of pneumothorax. Len Benz MD Objective Remarks General: Morbidly obese female in no acute distress. Heart: Regular rate and rhythm. No murmur. Lungs: Clear to auscultation bilaterally. No wheezes, rales, or rhonchi. Breathing is nonlabored. Abdomen: Soft. Extremities: No lower extremity edema. Psych: Alert and oriented. Procedures I&D Debridement Skin biopsy on 06/06 Urinary Catheter: No Vascular Central Line Catheter: No A/P Problem List: (1) Open wound of abdomen ICD Code: S31.109A Status: Acute (2) Type II diabetes mellitus with neurological manifestations, uncontrolled ICD Code: E11.49 Status: Chronic (3) End stage renal disease on dialysis ICD Code: N18.6 Status: Chronic (4) Hypertension, benign ICD Code: I10 Status: Chronic Assessment and Plan 1. Sepsis secondary to abdominal pannus wound/cellulitis: Sepsis is improved. Appreciate general surgery and plastic surgery recommendations. Antibiotics discontinued by infectious disease. Status post incision and drainage on . Continue wound care, pain control. Possible calciphylaxis. Biopsy results are pending. 2. Morbid obesity: Patient has been counseled. 3. Hypertension: Blood pressure is well controlled. 4. Diabetes mellitus: Monitor Accu-Cheks and cover with sliding scale insulin. 5. Hyperlipidemia: Continue home medications. 6. End-stage renal disease: On hemodialysis Friday, , Friday. Appreciate nephrology management. 7. Chronic low back pain, chronic pain syndrome: Continue pain control. Appreciate palliative care recommendations. 8. Electrolyte abnormalities: Appreciate nephrology recommendations. 9. Anemia of chronic disease worsened with acute blood loss anemia: Status post transfusion on 06/10/16 as well as erythropoietin by nephrology. 10. Acute metabolic encephalopathy: Improved. Likely secondary to morphine. 11. DVT prophylaxis: Subcutaneous heparin. 12. CODE STATUS: Full code. Problem Qualifiers (1) Open wound of abdomen: Qualified Code: S31.109A - Open wound of abdomen, initial encounter Marvin Wick MD Jun 14, 2016 14:36
[2016-06-14 16:00] VITALS: BP 165/74; PULSE 106; RESP 18; TEMP 98.4; O2SAT 98
[2016-06-14 20:00] VITALS: BP 146/64; PULSE 82; PULSE 85; RESP 20; TEMP 98; O2SAT 96
[2016-06-14] MEDS: ATORVASTATIN 80 MG TAB PO SCH (21:22)
[2016-06-15] VITALS: BP 156/68; PULSE 87; RESP 20; TEMP 98.7; O2SAT 95
[2016-06-15] MEDS: ACETAMINOPHEN/HYDROcodone 325 MG/10 MG TAB PO PRN ×5 (02:31→21:29)
[2016-06-15 04:00] VITALS: BP 164/74; PULSE 75; RESP 20; TEMP 97.9; O2SAT 94
[2016-06-15] MEDS: HEPARIN SODIUM - SQ 10,000 UNITS/ML VIAL SQ SCH ×2 (04:31→16:53)
[2016-06-15] MEDS: LEVOTHYROXINE SODIUM 150 MCG TAB PO SCH (06:18)
[2016-06-15] MEDS: HIGH DOSE INSULIN NOVOLOG SUPPLEMENTAL SCALE SQ SCH ×4 (06:22→21:00)
[2016-06-15] MEDS: ONDANSETRON HCL 4 MG/2 ML VIAL IVP PRN (07:15)
--- NOTE | 2016-06-15 07:39 | MB ---
cc: LEONARDO GLORIA M.D. DATE OF CONSULTATION: 06/14/2016 DATE OF : [address] Wick CHIEF COMPLAINT Dr. Wick requested a consultation for Mrs. Foley regarding microcytic anemia. HISTORY OF PRESENT ILLNESS Mrs. Foley is a 55-year-old woman who initially presented in the emergency room on May 14, 2016. She has history of diabetes type 2, hyperlipidemia, morbid obesity, chronic back pain end-stage renal disease for which she is dialyzed on Friday, and Friday. She had abdominal wound care for by Dr. Madden who preformed an IND. The wound had become progressively worse to the point that she needed to come into the emergency room. She was seen by Dr. Matias. Ultimately she was referred to Dr. Johnsno expertise. She was admitted to the hospital for care of this wound. On May 17, 2016 Dr. Johnson performed an excision of the large open wound 25 x 50 cm right lower abdominal pannus. She has had healing complications and additional excisional debridement was performed on May 24, 2016 and on May 26, 2016 Dr. Johnson preformed another excisional debridement of the right lower abdomen and right lateral abdomen superficial wound. In the meantime Dr. Jimenez her primary mixologist has been coordinating the dialysis which continued three times a week. Her course has been complicated by severe anemia that she has required 6 units of packed red cells. Most recent unit of packed red cell was from 06/10/2016. Review of the electronic medical record shows chronic anemia which has become progressively worse over the last year. She has labs from February 04, 2008 to hemoglobin 11.3 February 20, 2013, hemoglobin 11.6. She was not always microcytic her MCV was normal in 2007 until about 2013. She describes a history of severe menorrhagia requiring her easement man ultimately perform a D&C procedure. She has an IUD was placed. She reports not having any cycles ever since. Therefore she has been Amenorrheic for about three years. She reports last colonoscopy and endoscopy was performed 5 years ago. She denies any abnormality of findings. She was told to have a repeat colonoscopy in 3 years time. Review of the electronic medical record shows that she has had transfusion seen in March and April of this year for severe microcytic anemia. Iron studies are difficult to interpret ferritin, TIBC of normal but the iron and percent saturation are low consistent with iron deficiency. Serum B12 level was normal. she has vitamin D deficiency. She describes probably unusual site effect of severe constipation associated with treatment with parenteral iron up. She describes as in needing several stool softener MiraLax and she you have other medications to help her move her bowels after a dose of Venofer intravenously. Due to the constipation she has only agreed to let Dr. Jimenez administered 50 mg of Venofer which is half the vial during her dialysis treatments. She reports some constipation and even when Venofer is non administered. She however would like to attribute to her constipation of severe enough to require her to use several modalities to move her bowels to be related to the Venofer. She does not entertain the possibility of a bowel issue. She is discussed with Dr. Jimenez iron deficiency in the past. She had only allowed him to administer 50 mg of iron weekly at this point, despite the severe anemia which she has required transfusion. Looks like she has had at least 9 units of packed red cells transfused since March of this year up. She has definite ideas about iron replacement and side effects and attributed to the iron treatment. REVIEW OF SYSTEMS She is quite suspicious of asking who consulted hematology regarding her iron deficiency. She is not desirous of changing any of her regimen. She wants Dr. Ortega to make that decision, even though its been pointed out that Dr. Jimenez had recommended for her to take the iron three times a week as typical protocol for iron deficient end-stage renal disease patients. PAST MEDICAL HISTORY: Morbid obesity Diabetes End-stage renal disease on hemodialysis Hypertension Congestive heart failure Coronary artery disease Hypothyroidism Spinal stenosis. Abdominal wound Iron deficiency anemia. PAST SURGERIES She has history of lap band surgery Lap cholecystectomy. Coronary stents 2013. Dialysis catheter. section Placement of IUD FAMILY HISTORY: family history, no significant family history of venous thromboembolic event. SOCIAL HISTORY Denies any tobacco, alcohol or illicit drug use. PHYSICAL EXAMINATION VITAL SIGNS: Temperature 98.4 heart rate 106, respiratory rate 18, blood pressure 165/74, saturation 98%. IN GENERAL: Miss Foley is morbidly obese pleasant, anxious woman resting in bed. She held hands with her son as we discussed her anemia. HEAD, EYES, EARS, NOSE, AND THROAT: Her pupils are round, reactive to light and accommodation. Conjunctiva is pink. Sclerae is nonicteric. Extraocular muscles are intact. NECK: The neck is supple with no adenopathy. LUNGS: Lungs are clear anteriorly. CARDIOVASCULAR SYSTEM: Exam reveals a normal rate, rhythm. ABDOMEN: The abdomen is large, with tenderness to palpation limited abdominal exam with several large wounds. A dressing is intact. EXTREMITIES: The lower extremity. No clubbing or edema. NEUROLOGIC: The neurological exam nonfocal, moves all four extremities. LABORATORY DATA Significant for microcytic anemia with hemoglobin is 7.3, MCV 79.3, platelet count of 416. Chemistry BUN of 31, creatinine 4.4. ASSESSMENT/PLAN Mrs. Foley is a 55-year-old morbidly obese woman with multiple medical problems. She is admitted to the hospital for abdominal wound requiring debridement by plastic surgery. She is recovering from the above. Her course was complicated by a microcytic anemia requiring blood transfusions a total of nine since March 2016. Her iron studies are difficult to interpret but does not exclude iron deficiency anemia. She is suspected to have iron deficiency from our clinical course. We discussed the etiology of iron deficiency in the GI. She has not had menses for the past 3 years. Would consider that her iron deficiency was never corrected dating back to 2007. I calculate her iron deficit at present to be 2,415. We would ideally add an additional 600 mg to replace her iron stores. This would be a requirement of 3 grams of iron that would need to be replaced. This is assuming that she has no ongoing losses of iron. We discussed at the rate that she is allowed Dr. Jimenez to replace her iron he would take her 48 weeks to replace the iron that she is missing in that would be to correct her iron deficiency. Recommended she follow Dr. Jimenez initial Recommendations Standard protocol 100 mg three times a week. At this as she became quite anxious and does not want to make a decision. I offered to administer the parenteral iron therapy is to start. We are also would be able to give her parenteral iron therapy with dialysis tomorrow. However she refused. She does not want to make a decision with of Dr. Jimenez and reports that she would prefer Dr. Jimenez to manage her iron and her anemia. Lastly we discussed that the iron deficiency needs to be corrected first to see if she has any other etiology of anemia. At present the most prominent etiology for a microcytic anemia is iron deficiency. This will need to be corrected faster than 50 mg parenterally once weekly. Suspect that the constipation is not related to the parenteral iron therapy at all. She was quite anxious to not make a decision. At this point she was a left to discuss with Dr. Jimenez. I will be available as needed. I will defer to primary team to need to consult bobbin painter. I will order for a stool hemoccult next stool. Her she is advised to follow up with her CHANGE COORDINATOR for retrieval of the IUD that was placed in 2013. MD SUELLEN Zarco/ /8:02 PM /7:00 AM
[2016-06-15 08:00] VITALS: BP 152/68; PULSE 92; PULSE 94; RESP 20; TEMP 98.2; O2SAT 98
[2016-06-15 08:15] LABS: AUTOMATED NEUTROPHIL # 9.4 TH/MM3 (1.8-7.7); BASOPHIL # 0.1 TH/MM3 (0-0.2); BASOPHIL % 0.6 % (0.0-2.0); EOSINOPHIL # 0.3 TH/MM3 (0-0.4); EOSINOPHIL % 2.8 % (0.0-4.0); LYMPH % 12.4 % (9.0-44.0); LYMPHOCYTE # 1.5 TH/MM3 (1.0-4.8); MEAN CELL VOLUME 79.4 FL (80.0-100.0); MEAN CORPUSCULAR HEMOGLOBIN 24.7 PG (27.0-34.0); MEAN CORPUSCULAR HGB CONC 31.1 % (32.0-36.0); MONO % 7.1 % (0.0-8.0); NEUT % 77.1 % (16.0-70.0); PLATELET COUNT 399 TH/MM3 (150-450); RED CELL DISTRIBUTION WIDTH 19.4 % (11.6-17.2); WHITE BLOOD COUNT 12.2 TH/MM3 (4.0-11.0)
[2016-06-15 08:18] LABS: HEMO FLAGS AUTO DIFF
[2016-06-15 08:34] LABS: BICARBONATE 29.2 MEQ/L (21.0-32.0); POTASSIUM 3.9 MEQ/L (3.5-5.1)
[2016-06-15] MEDS: POVIDONE IODINE 10% SOLN 480 ML BTL TOPICAL SCH ×2 (09:00→21:00)
[2016-06-15] MEDS: DOCUSATE SODIUM 50 MG/SENNA 8.6 MG TAB PO SCH ×2 (09:47→21:24)
[2016-06-15] MEDS: GABAPENTIN 100 MG CAP PO SCH ×2 (09:47→21:24)
[2016-06-15] MEDS: CALCITRIOL 0.25 MCG CAP PO SCH (09:47)
[2016-06-15] MEDS: ASPIRIN EC 81 MG TABEC PO SCH (09:47)
[2016-06-15] MEDS: METHADONE HCL 10 MG TAB PO SCH ×2 (09:47→21:24)
[2016-06-15] MEDS: SEVELAMER CARBONATE 800 MG TAB PO SCH ×3 (09:47→16:52)
[2016-06-15] MEDS: FLUoxetine HCL 20 MG CAP PO SCH (09:47)
[2016-06-15] MEDS: CINACALCET HYDROCHLORIDE 30 MG TAB PO SCH (09:47)
[2016-06-15] MEDS: INSULIN DETEMIR 100 UNITS/ML VIAL SQ SCH ×2 (09:48→21:00)
[2016-06-15] MEDS: POLYETHYLENE GLYCOL 17 GM PKG PO SCH (09:48)
[2016-06-15] MEDS: SODIUM CHLORIDE 0.9% FLUSH 5 ML FLUSH FLUSH SCH ×2 (10:00→21:00)
--- NOTE | 2016-06-15 10:30 | HHI.PR ---
Subjective Remarks Follow up abdominal wound, diabetes. The patient reports ongoing constipation. States that she was painful overnight and nauseous this morning. She is feeling a little better at this time. She has delayed dialysis until later today because she was not feeling well this morning. Objective Vitals Vital Signs Date Time Temp Pulse Resp B/P Pulse Ox O2 Delivery O2 Flow Rate FiO2 06/15/16 08:00 98.2 94 20 152/68 98 06/15/16 04:00 97.9 75 20 164/74 94 06/15/16 00:00 98.7 87 20 156/68 95 06/14/16 20:00 85 06/14/16 20:00 98.0 82 20 146/64 96 06/14/16 16:00 98.4 106 18 165/74 98 06/14/16 12:00 97.4 82 18 198/75 93 I/O 06/14/16 06/14/16 06/14/16 06/15/16 06/15/16 06/15/16 07:00 15:00 23:00 07:00 15:00 23:00 Intake Total 240 ml 480 ml 240 ml Output Total 0 ml 50 ml Balance 240 ml -50 ml 480 ml 240 ml Intake Oral 240 ml 480 ml 240 ml Drainage Total 0 ml 50 ml # Voids 0 # Bowel Movements 0 Result Diagram: 06/15/16 0645 06/15/16 0645 Imaging Last Impressions Chest X-Ray 06/08/16 0000 Signed Impressions: Service Date/Time: Wednesday, June 08, 2016 19:03 - CONCLUSION: The lungs are clear. No evidence of pneumothorax. Len Benz MD Objective Remarks General: Morbidly obese female in no acute distress. Heart: Regular rate and rhythm. No murmur. Lungs: Clear to auscultation bilaterally. No wheezes, rales, or rhonchi. Breathing is nonlabored. Abdomen: Soft. Extremities: No lower extremity edema. Psych: Alert and oriented. Procedures I&D Debridement Skin biopsy on 06/06 Urinary Catheter: No Vascular Central Line Catheter: No A/P Problem List: (1) Open wound of abdomen ICD Code: S31.109A Status: Acute (2) Type II diabetes mellitus with neurological manifestations, uncontrolled ICD Code: E11.49 Status: Chronic (3) End stage renal disease on dialysis ICD Code: N18.6 Status: Chronic (4) Hypertension, benign ICD Code: I10 Status: Chronic (5) Constipation ICD Code: K59.00 Status: Acute Assessment and Plan 1. Sepsis secondary to abdominal pannus wound/cellulitis: Sepsis is improved. Appreciate general surgery and plastic surgery recommendations. Antibiotics discontinued by infectious disease. Status post incision and drainage on . Continue wound care, pain control. Possible calciphylaxis. Biopsy results are pending. 2. Morbid obesity: Patient has been counseled. 3. Hypertension: Blood pressure is well controlled. 4. Diabetes mellitus: Monitor Accu-Cheks and cover with sliding scale insulin. 5. Hyperlipidemia: Continue home medications. 6. End-stage renal disease: On hemodialysis Friday, , Friday. Appreciate nephrology management. 7. Chronic low back pain, chronic pain syndrome: Continue pain control. Appreciate palliative care recommendations. 8. Electrolyte abnormalities: Appreciate nephrology recommendations. 9. Anemia of chronic disease worsened with acute blood loss anemia: Status post transfusion on 06/10/16 as well as erythropoietin by nephrology. 10. Acute metabolic encephalopathy: Improved. Likely secondary to morphine. 11. DVT prophylaxis: Subcutaneous heparin. 12. CODE STATUS: Full code. 13. Constipation: Patient is taking multiple stool softeners and laxatives, which she has brought in from home. She was advised to take only what was prescribed for her. We will consult gastroenterology for further assistance with management of constipation. Problem Qualifiers (1) Open wound of abdomen: Qualified Code: S31.109A - Open wound of abdomen, initial encounter Marvin Wick MD Jun 15, 2016 10:30
[2016-06-15 11:02] LABS: BANDS 10 % (0-6); EOSINOPHILS 2 % (0-4); MYELOCYTES 1 % (0-0); NEUTROPHIL # MANUAL DIFF 9.2 TH/MM3 (1.8-7.7); POLYS (SEG NEUTROPHILS) 64 % (16-70); WBC DIFF SAMPLE 100
[2016-06-15 11:03] LABS: PLATELET ESTIMATE SMEAR NORMAL (NORMAL); PLATELET MORPHOLOGY NORMAL (NORMAL); SCAN/DIFF FINAL DIFF MANUAL
[2016-06-15] MEDS: EPOETIN ALFA 10,000 UNITS/ML VIAL IV PRN (14:46)
[2016-06-15] MEDS: HEPARIN SODIUM - IV 10,000 UNITS/10 ML VIAL PRN (14:46)
[2016-06-15] MEDS: GENTAMICIN SULFATE (DIALYSIS USE ONLY) 20 MG/2 ML VIAL IV PRN (14:46)
[2016-06-15] MEDS: ALBUMIN HUMAN 25% 25 GM/100 ML BAGP IV PRN (14:47)
--- NOTE | 2016-06-15 15:26 | HHI.NPPN ---
Subjective History of Present Illness 55-year-old female known to me from before with past medical history of diabetes mellitus, history of morbid obesity, end-stage renal disease on hemodialysis three times per week, history of chronic anemia, congestive heart failure, spinal stenosis, chronic back pain, hypothyroidism who came to the hospital with complaint of worsening lower abdominal wound. I was called to see the patient for the management of dialysis. The patient has been on hemodialysis Friday, and Friday. Additional Remarks Nausea earlier today, seen on dialysis and tolerating HD. Review of Systems General Constitutional: Fatigue Respiratory Lungs: SOB Cardiovascular Cardiac: GRIFFIN Objective Data Data 06/14/16 06/15/16 19:00 07:00 Intake Total 720 ml Output Total 50 ml Balance -50 ml 720 ml Intake Oral 720 ml Drainage Total 50 ml Vital Signs Date Time Temp Pulse Resp B/P Pulse Ox O2 Delivery O2 Flow Rate FiO2 06/15/16 08:00 98.2 94 20 152/68 98 06/15/16 08:00 92 06/15/16 04:00 97.9 75 20 164/74 94 06/15/16 00:00 98.7 87 20 156/68 95 06/14/16 20:00 85 06/14/16 20:00 98.0 82 20 146/64 96 06/14/16 16:00 98.4 106 18 165/74 98 -: 06/15/16 0645 06/15/16 0645 Physical Exam General Appearance: No Acute Distress, Comfortable Eyes Eye Exam: Pupils Equal Throat Throat Exam: Oral Mucosa [place] & Moist Neck Neck Exam: Neck Supple Pulmonary Resp Exam: Breath Sounds Equal, Crackles, Decreased Bases, Diminished Breath Sounds Gastrointestinal/Abdomen GI Exam: Soft, Non-Tender, Distended Extremeties Extremities Exam: Moderate Edema, Pitting Edema, Dependent Edema Neurologic Neuro Exam: Alert, Awake, Oriented Assessment/Plan Assessment Summary: Anemia of CKD, Hypertension, End Stage Renal Disease Problem List: (1) Anemia in chronic kidney disease (CKD) (2) Open wound of abdomen (3) Chronic stasis dermatitis (4) End stage kidney disease Plan Seen on HD, continue TTS HD, 4 hours for uremia/ calciphylaxis. On Sodium thiosulfate and sensipar Now on Cefepime. Continue the wound care. ID is following. 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 Seen by plastic surgery and had debridement of Rt. buttock area. Also has debridement of abd. wound done. Now with wound Vac. skin Biopsy done, follow the results. Problem Qualifiers (1) Open wound of abdomen: Qualified Code: S31.109A - Open wound of abdomen, initial encounter Bradly Sanchez MD Jun 15, 2016 15:26
[2016-06-15 16:00] VITALS: BP 120/69; PULSE 82; RESP 20; TEMP 98.6; O2SAT 95
[2016-06-15] MEDS: SODIUM HYPOCHLORITE 0.25% 500 ML BTL TOPICAL SCH (16:56)
[2016-06-15] MEDS: COLLAGENASE OINT 30 GM TUBE EXT SCH (17:00)
[2016-06-15 20:00] VITALS: BP 147/64; PULSE 80; RESP 18; TEMP 98.6; O2SAT 96
[2016-06-15] MEDS: ATORVASTATIN 80 MG TAB PO SCH (21:23)
[2016-06-16] VITALS (7 sets, daily range): BP systolic 137–194; BP diastolic 62–86; PULSE 77–93; RESP 18–20; TEMP 97.7–99.1; O2SAT 93–98
[2016-06-16] MEDS: LEVOTHYROXINE SODIUM 150 MCG TAB PO SCH (05:07)
[2016-06-16] MEDS: ACETAMINOPHEN/HYDROcodone 325 MG/10 MG TAB PO PRN ×5 (05:08→22:38)
[2016-06-16] MEDS: HEPARIN SODIUM - SQ 10,000 UNITS/ML VIAL SQ SCH ×2 (05:08→14:23)
--- NOTE | 2016-06-16 05:17 | MB ---
cc: PRIETO STONE M.D. DATE OF CONSULTATION: 06/15/2016 DATE OF : [address] Han REASON FOR REFERRAL Constipation. Thank you for the consultation. HISTORY OF PRESENT ILLNESS: The patient is a 55-year-old lady with complicated medical problems including end-stage renal disease on dialysis which was started recently. The patient is morbidly obese. The patient also has a wound infection which was pulled from the patient and needed debridement and wound Vac. The patient is having more constipation, or with a number of movements per week and some discomfort. I was asked to evaluate her for that. The patient apparently stated that she started having these symptoms since the dialysis. She is having bowel movement when she takes laxative and MiraLax. She denied any other problem at this time GI-yao except some abdominal discomfort which she thinks it is related to her wound. REVIEW OF SYSTEMS The patient complaining of abdominal pain. Wound on the abdomen, constipation, muscle aches. No nausea or vomiting. PAST MEDICAL HISTORY Significant for: 1. Coronary artery disease. 2. CHF 3. Hyperlipidemia. 4. Diabetes. 5. End-stage renal disease on dialysis. 6. Hypertension 7. Spinal stenosis 8. Osteoarthritis 9. Sleep apnea. 10. Hypothyroidism. 11. Morbid obesity. ALLERGIES BIAXIN IRON. MORPHINE. MEDICATIONS Reviewed in the chart. SOCIAL HISTORY No tobacco, occasional alcohol. No drugs. PAST SURGERIES 1. Lap band in 2004. 2. PCI and stent placement. 3. Dialysis catheter. 4. . 5. A-V fistula in the left upper extremity. PHYSICAL EXAMINATION Alert, oriented, no acute distress. I saw her during dialysis. Vital signs: Stable. GENERAL: A pleasant lady. HEENT: Pupils are round, reactive to light. Neck: Supple. Chest: Clear to auscultation and precaution at this time. Cardiac: Regular rate and rhythm. No murmur or gallop. Abdomen: Morbidly obese. She has large wound with wound Vac in the lower abdomen with abdominal wall folds. Some tenderness. The patient has positive bowel sounds. I could not appreciate the liver or spleen. No obvious mass. Neurologically: Alert, oriented, with good range of motion. Neck: Psychologically appropriate. LABORATORY DATA White count 12.2, hemoglobin 7.2, platelet 399. INR 0.1, 0.2. BUN 45, creatinine 5.69. Liver function tests were normal. ASSESSMENT/PLAN The patient is a 55-year-old lady with multiple medical problems. End-stage renal disease, anemia, most likely because of that, and multifactorial including infection. Constipation. The patient stated that since she started on dialysis that is when her problem started. She is feeling better now, she is getting the treatment with laxatives and stool softner. She is not interested in any procedure. She does not think she will be able to tolerate it, especially with her wound. She cannot go to the bathroom and she is not interested in that. She will consider that once her wound is healed. I recommend bowel regimen including MiraLax and stool softner. Will use GoLytely as needed. Once the patient is better, and more accepting for endoscopy, we can do an upper endoscopy and colonoscopy. This can be done before her discharge or as an outpatient whichever the patient prefers. We will follow up as needed, since it seems that she is having reasonable bowel movement. We can increase the amount of the laxative. MD GABE Fuentes/MITESH /10:27 PM /3:46 AM
[2016-06-16] MEDS: HIGH DOSE INSULIN NOVOLOG SUPPLEMENTAL SCALE SQ SCH ×4 (06:31→21:16)
[2016-06-16] MEDS: ASPIRIN EC 81 MG TABEC PO SCH (08:37)
[2016-06-16] MEDS: SEVELAMER CARBONATE 800 MG TAB PO SCH ×3 (08:37→16:05)
[2016-06-16] MEDS: FLUoxetine HCL 20 MG CAP PO SCH (08:37)
[2016-06-16] MEDS: CINACALCET HYDROCHLORIDE 30 MG TAB PO SCH (08:38)
[2016-06-16] MEDS: GABAPENTIN 100 MG CAP PO SCH ×2 (08:38→21:14)
[2016-06-16] MEDS: DOCUSATE SODIUM 50 MG/SENNA 8.6 MG TAB PO SCH ×2 (08:38→21:14)
[2016-06-16] MEDS: METHADONE HCL 10 MG TAB PO SCH ×2 (08:38→21:14)
[2016-06-16] MEDS: POLYETHYLENE GLYCOL 17 GM PKG PO SCH (08:38)
[2016-06-16] MEDS: SODIUM HYPOCHLORITE 0.25% 500 ML BTL TOPICAL SCH (08:39)
[2016-06-16] MEDS: POVIDONE IODINE 10% SOLN 480 ML BTL TOPICAL SCH ×2 (08:39→21:00)
[2016-06-16] MEDS: INSULIN DETEMIR 100 UNITS/ML VIAL SQ SCH ×2 (08:39→21:15)
[2016-06-16] MEDS: COLLAGENASE OINT 30 GM TUBE EXT SCH (08:40)
[2016-06-16] MEDS: SODIUM CHLORIDE 0.9% FLUSH 5 ML FLUSH FLUSH SCH ×2 (08:40→21:00)
[2016-06-16] MEDS: CALCITRIOL 0.25 MCG CAP PO SCH (08:45)
--- NOTE | 2016-06-16 10:34 | HHI.PR ---
Subjective Remarks Follow up abdominal wound, diabetes, constipation. The patient is reporting significant pain in the wound today. Requesting a small dose of pain medication for breakthrough pain, although she does not want IV pain meds. Objective Vitals Vital Signs Date Time Temp Pulse Resp B/P Pulse Ox O2 Delivery O2 Flow Rate FiO2 06/16/16 08:00 98.5 93 20 160/75 93 06/16/16 04:00 98.6 80 18 137/64 98 06/16/16 00:00 99.1 80 18 138/65 93 06/15/16 20:00 80 06/15/16 20:00 98.6 80 18 147/64 96 06/15/16 16:00 98.6 82 20 120/69 95 I/O 06/15/16 06/15/16 06/15/16 06/16/16 06/16/16 06/16/16 07:00 15:00 23:00 07:00 15:00 23:00 Intake Total 240 ml 482 ml Output Total 3000 ml Balance 240 ml 482 ml -3000 ml Intake Oral 240 ml 480 ml IV Total 2 ml Hemodialysis 3000 ml # Voids 2 # Bowel Movements 0 Result Diagram: 06/15/16 0645 06/15/16 0645 Imaging Last Impressions Chest X-Ray 06/08/16 0000 Signed Impressions: Service Date/Time: Wednesday, June 08, 2016 19:03 - CONCLUSION: The lungs are clear. No evidence of pneumothorax. Len Benz MD Objective Remarks General: Morbidly obese female in no acute distress. Heart: Regular rate and rhythm. No murmur. Lungs: Clear to auscultation bilaterally. No wheezes, rales, or rhonchi. Breathing is nonlabored. Abdomen: Soft. Extremities: No lower extremity edema. Psych: Alert and oriented. Procedures I&D Debridement Skin biopsy on 06/06 Urinary Catheter: No Vascular Central Line Catheter: No A/P Problem List: (1) Open wound of abdomen ICD Code: S31.109A Status: Acute (2) Type II diabetes mellitus with neurological manifestations, uncontrolled ICD Code: E11.49 Status: Chronic (3) End stage renal disease on dialysis ICD Code: N18.6 Status: Chronic (4) Hypertension, benign ICD Code: I10 Status: Chronic (5) Constipation ICD Code: K59.00 Status: Acute Assessment and Plan 1. Sepsis secondary to abdominal pannus wound/cellulitis: Sepsis is improved. Appreciate general surgery and plastic surgery recommendations. Antibiotics discontinued by infectious disease. Status post incision and drainage on . Continue wound care, pain control. Possible calciphylaxis. Biopsy results are pending. 2. Morbid obesity: Patient has been counseled. 3. Hypertension: Blood pressure is well controlled. 4. Diabetes mellitus: Monitor Accu-Cheks and cover with sliding scale insulin. 5. Hyperlipidemia: Continue home medications. 6. End-stage renal disease: On hemodialysis Friday, , Friday. Appreciate nephrology management. 7. Chronic low back pain, chronic pain syndrome: Continue pain control. Appreciate palliative care recommendations. 8. Electrolyte abnormalities: Appreciate nephrology recommendations. 9. Anemia of chronic disease worsened with acute blood loss anemia: Status post transfusion on 06/10/16 as well as erythropoietin by nephrology. 10. Acute metabolic encephalopathy: Improved. Likely secondary to morphine. 11. DVT prophylaxis: Subcutaneous heparin. 12. CODE STATUS: Full code. 13. Constipation: Appreciate GI recommendations. Continue bowel regimen. Problem Qualifiers (1) Open wound of abdomen: Qualified Code: S31.109A - Open wound of abdomen, initial encounter Marvin Wick MD Jun 16, 2016 10:34
[2016-06-16 11:58] LABS: AUTOMATED NEUTROPHIL # 9.8 TH/MM3 (1.8-7.7); BASOPHIL # 0.1 TH/MM3 (0-0.2); BASOPHIL % 0.7 % (0.0-2.0); EOSINOPHIL # 0.3 TH/MM3 (0-0.4); EOSINOPHIL % 2.1 % (0.0-4.0); HEMATOCRIT 22.1 % (35.0-46.0); HEMO FLAGS DIFF FINAL; LYMPH % 10.4 % (9.0-44.0); LYMPHOCYTE # 1.3 TH/MM3 (1.0-4.8); MEAN CELL VOLUME 78.9 FL (80.0-100.0); MEAN CORPUSCULAR HEMOGLOBIN 25.3 PG (27.0-34.0); MEAN CORPUSCULAR HGB CONC 32.1 % (32.0-36.0); MONO % 5.7 % (0.0-8.0); NEUT % 81.1 % (16.0-70.0); PLATELET COUNT 436 TH/MM3 (150-450); RED CELL DISTRIBUTION WIDTH 19.4 % (11.6-17.2); WHITE BLOOD COUNT 12.1 TH/MM3 (4.0-11.0)
--- NOTE | 2016-06-16 14:53 | HHI.NPPN ---
Subjective History of Present Illness 55-year-old female known to me from before with past medical history of diabetes mellitus, history of morbid obesity, end-stage renal disease on hemodialysis three times per week, history of chronic anemia, congestive heart failure, spinal stenosis, chronic back pain, hypothyroidism who came to the hospital with complaint of worsening lower abdominal wound. I was called to see the patient for the management of dialysis. The patient has been on hemodialysis Friday, and Friday. Additional Remarks Ongoing constipation, no acute complaints. Review of Systems General Constitutional: Fatigue Respiratory Lungs: SOB Cardiovascular Cardiac: GRIFFIN Objective Data Data 06/15/16 06/16/16 19:00 07:00 Intake Total 482 ml Output Total 3000 ml Balance -2518 ml Intake Oral 480 ml IV Total 2 ml Hemodialysis 3000 ml # Voids 2 # Bowel Movements 0 Vital Signs Date Time Temp Pulse Resp B/P Pulse Ox O2 Delivery O2 Flow Rate FiO2 06/16/16 12:00 98.0 77 20 194/86 93 06/16/16 08:00 98.5 93 20 160/75 93 06/16/16 04:00 98.6 80 18 137/64 98 06/16/16 00:00 99.1 80 18 138/65 93 06/15/16 20:00 80 06/15/16 20:00 98.6 80 18 147/64 96 06/15/16 16:00 98.6 82 20 120/69 95 -: 06/16/16 1130 06/15/16 0645 Physical Exam General Appearance: No Acute Distress, Comfortable Eyes Eye Exam: Pupils Equal Throat Throat Exam: Oral Mucosa [place] & Moist Neck Neck Exam: Neck Supple Pulmonary Resp Exam: Breath Sounds Equal, Crackles, Decreased Bases, Diminished Breath Sounds Gastrointestinal/Abdomen GI Exam: Soft, Non-Tender, Distended Extremeties Extremities Exam: Moderate Edema, Pitting Edema, Dependent Edema Neurologic Neuro Exam: Alert, Awake, Oriented Assessment/Plan Assessment Summary: Anemia of CKD, Hypertension, End Stage Renal Disease Problem List: (1) Anemia in chronic kidney disease (CKD) (2) Open wound of abdomen (3) Chronic stasis dermatitis (4) End stage kidney disease Plan Seen on HD, continue TTS HD, 4 hours for uremia/ calciphylaxis. On Sodium thiosulfate and sensipar Now on Cefepime. Continue the wound care. ID is following. 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 Seen by plastic surgery and had debridement of Rt. buttock area. Also has debridement of abd. wound done. Now with wound Vac. Ongoing anemia, on epogen with HD. May consider transfusion with next HD if needed. skin Biopsy done, follow the results. Problem Qualifiers (1) Open wound of abdomen: Qualified Code: S31.109A - Open wound of abdomen, initial encounter Bradly Sanchez MD Jun 16, 2016 14:53
--- NOTE | 2016-06-16 18:50 | PD.ONC.PN ---
Subjective Subjective Remarks Tmax 99.1 overnight. Pt resting in bed with son at bedside. She states she feels OK. She denies dizziness or SOB. Objective Data Date Time Temp Pulse Resp B/P Pulse Ox O2 Delivery O2 Flow Rate FiO2 06/16/16 15:12 165/79 06/16/16 12:00 98.0 77 20 194/86 93 06/16/16 08:00 98.5 93 20 160/75 93 06/16/16 04:00 98.6 80 18 137/64 98 06/16/16 00:00 99.1 80 18 138/65 93 06/15/16 20:00 80 06/15/16 20:00 98.6 80 18 147/64 96 06/16/16 06/16/16 06/16/16 07:00 15:00 23:00 Output Total 100 ml Balance -100 ml Result Diagram: 06/16/16 1130 06/15/16 0645 Laboratory Results Laboratory Tests Test 06/16/16 11:30 White Blood Count 12.1 TH/MM3 Red Blood Count 2.80 MIL/MM3 Hemoglobin 7.1 GM/DL Hematocrit 22.1 % Mean Corpuscular Volume 78.9 FL Mean Corpuscular Hemoglobin 25.3 PG Mean Corpuscular Hemoglobin 32.1 % Concent Red Cell Distribution Width 19.4 % Platelet Count 436 TH/MM3 Mean Platelet Volume 6.9 FL Neutrophils (%) (Auto) 81.1 % Lymphocytes (%) (Auto) 10.4 % Monocytes (%) (Auto) 5.7 % Eosinophils (%) (Auto) 2.1 % Basophils (%) (Auto) 0.7 % Neutrophils # (Auto) 9.8 TH/MM3 Lymphocytes # (Auto) 1.3 TH/MM3 Monocytes # (Auto) 0.7 TH/MM3 Eosinophils # (Auto) 0.3 TH/MM3 Basophils # (Auto) 0.1 TH/MM3 CBC Comment DIFF FINAL Differential Comment Administered Medications Medications (Trade) Dose Ordered Sig/Soren Route PRN Reason Start Time Stop Time Status Last Admin Dose Admin Amlodipine Besylate (Norvasc) 5 mg BID PO 05/14/16 21:00 Hold 05/26/16 21:07 Aspirin (Ecotrin Ec) 81 mg DAILY PO 05/15/16 09:00 06/16/16 08:37 Atenolol (Tenormin) 50 mg BID PO 05/14/16 21:00 Hold 05/26/16 21:07 Atorvastatin Calcium (Lipitor) 80 mg HS PO 05/14/16 21:00 06/15/16 21:23 Lisinopril (Prinivil) 20 mg BID PO 05/14/16 21:00 Hold 05/26/16 21:15 Calcitriol (Rocaltrol) 0.5 mcg DAILY PO 05/15/16 09:00 06/16/16 08:45 Fluoxetine HCl (PROzac) 20 mg DAILY PO 05/15/16 09:00 06/16/16 08:37 Gabapentin (Neurontin) 100 mg BID PO 05/14/16 21:00 06/16/16 08:38 Levothyroxine Sodium (Synthroid) 300 mcg DAILY@0600 PO 05/15/16 06:00 06/16/16 05:07 IV Flush (NS Flush) 2 ml UNSCH PRN FLUSH FLUSH AFTER USING IV ACCESS 05/14/16 14:30 05/28/16 18:09 IV Flush (NS Flush) 2 ml BID FLUSH 05/14/16 21:00 06/16/16 08:40 Ondansetron HCl (Zofran Inj) 4 mg Q6H PRN IVP NAUSEA OR VOMITING 05/14/16 14:30 06/15/16 07:15 Metoclopramide HCl (Reglan Inj) 5 mg Q6H PRN IV PUSH NAUSEA OR VOMITING 05/14/16 14:30 06/13/16 21:36 Heparin Sodium (Porcine) (Heparin Inj) 5,000 units Q12H SQ 05/14/16 16:00 06/16/16 14:23 Naloxone HCl 0.4 mg 0.4 mg UNSCH PRN IV SEE LABEL COMMENTS 05/14/16 14:30 06/10/16 19:16 Sodium Chloride 1,000 ml @ 0 mls/hr Q0M PRN IV For Prime & Rinse Back 05/14/16 14:54 06/06/16 15:17 Sodium Chloride (NS 1000 ml Inj) 1,000 ml @ 0 mls/hr Q0M PRN IV WITH DIALYSIS 05/14/16 14:54 05/30/16 09:36 Albumin Human (Albumin 25% Inj) 25 gm UNSCH PRN IV WITH DIALYSIS 05/14/16 15:00 06/15/16 14:47 Heparin Sodium (Porcine) (Heparin Inj) UNSCH PRN .XX WITH DIALYSIS 05/14/16 15:00 06/15/16 14:46 Gentamicin Sulfate (Gentamicin (Dialysis) Inj) 20 mg UNSCH PRN IV WITH DIALYSIS 05/14/16 15:00 06/15/16 14:46 Epoetin Porter (Epogen Inj) 10,000 units UNSCH PRN IV WITH DIALYSIS 05/14/16 15:00 06/15/16 14:46 Collagenase (Santyl Oint) 1 applic DAILY EXT 05/17/16 15:00 06/16/16 08:40 Insulin Detemir (Levemir Inj) 30 units DAILY SQ 05/24/16 09:00 06/15/16 09:48 Insulin Detemir (Levemir Inj) 20 units HS SQ 05/23/16 21:00 06/14/16 21:00 Senna/Docusate Sodium (Luciana-Colace) 1 tab BID PO 05/26/16 21:00 06/16/16 08:38 Cinacalcet (Sensipar) 30 mg DAILY PO 06/02/16 09:00 06/16/16 08:38 Miscellaneous Information Patient in critical care unit? Ass... Q361D XX 06/02/16 00:15 06/02/16 00:15 Sevelamer Carbonate (Renvela) 1,600 mg TID PO 06/03/16 13:00 06/16/16 16:05 Povidone Iodine (Betadine 10% Top Soln) 1 applic BID TOPICAL 06/05/16 21:00 06/16/16 08:39 Polyethylene Glycol (Miralax) 17 gm DAILY PO 06/09/16 10:45 06/16/16 08:38 Alprazolam (Xanax) 0.125 mg Q6H PRN PO anxiety 06/10/16 09:30 06/13/16 15:02 Sodium Hypochlorite (Dakin'S 0.25% Soln) 500 ml DAILY TOPICAL 06/10/16 15:00 06/16/16 08:39 Acetaminophen/ Hydrocodone Bitart (Petros 10-325 Mg) 1 tab Q4H PRN PO pain 6-10 06/10/16 15:45 4/9/17 14:22 Hydromorphone HCl (Dilaudid Pf Inj) 1 mg Q4H PRN IV PUSH Breakthrough pain 06/10/16 15:45 06/14/16 13:31 Acetaminophen (Tylenol) 650 mg Q4H PRN PO pain 1-2/ fever 06/10/16 20:30 06/11/16 06:10 Methadone HCl (Dolophine) 2.5 mg Q12HR PO 06/13/16 21:00 06/16/16 08:38 Objective Remarks GENERAL: Obese middle aged female lying in bed in no distress. SKIN: Warm and dry. Dressing to abdomen. HEAD: Normocephalic. EYES: No injection or drainage. NECK: Supple, trachea midline. No JVD or lymphadenopathy. CARDIOVASCULAR: +S1/S2. RESPIRATORY: Breath sounds equal bilaterally. No accessory muscle use. GASTROINTESTINAL: Abdomen soft, non-tender, nondistended. Dressing in place. EXTREMITIES: No cyanosis. NEUROLOGICAL: Normal speech. Moving all extremities. Assessment/Plan Problem List: (1) Severe anemia Status: Chronic Plan: -- Likely multifactorial -- On ESRD -- Microcytic (2) End stage renal disease on dialysis Status: Chronic Plan: -- Dialysis T--S Assessment 55 y/o female with history of chronic anemia on dialysis presents to the ER with c/o a worsening abdominal wound. Plan 1. Pt does not wish to have iron replacement, or PRBC infusion for her hgb of 7.1 today. She is currently asymptomatic. 2. She states she has seen Dr Daniels recently in clinic for her anemia. 3. Encouraged pt that if her hgb drops below 7, or if she becomes symptomatic it would be important to treat. 4. Continue supportive care. Treat for hgb < 7. Elisabeth Singh Jun 16, 2016 18:50
[2016-06-16] MEDS: ATORVASTATIN 80 MG TAB PO SCH (21:15)
[2016-06-17] VITALS (8 sets, daily range): BP systolic 118–175; BP diastolic 56–77; PULSE 72–80; RESP 18–20; TEMP 97.8–98.8; O2SAT 93–97
[2016-06-17] MEDS: ACETAMINOPHEN/HYDROcodone 325 MG/10 MG TAB PO PRN ×6 (02:23→22:59)
[2016-06-17] MEDS: LEVOTHYROXINE SODIUM 150 MCG TAB PO SCH (04:41)
[2016-06-17] MEDS: HEPARIN SODIUM - SQ 10,000 UNITS/ML VIAL SQ SCH ×2 (04:42→16:20)
[2016-06-17] MEDS: HIGH DOSE INSULIN NOVOLOG SUPPLEMENTAL SCALE SQ SCH ×4 (06:15→21:12)
[2016-06-17 07:51] LABS: BASOPHIL # 0.1 TH/MM3 (0-0.2); BASOPHIL % 0.6 % (0.0-2.0); BICARBONATE 27.7 MEQ/L (21.0-32.0); EOSINOPHIL # 0.4 TH/MM3 (0-0.4); EOSINOPHIL % 3.4 % (0.0-4.0); LYMPH % 13.3 % (9.0-44.0); LYMPHOCYTE # 1.6 TH/MM3 (1.0-4.8); MEAN CELL VOLUME 79.6 FL (80.0-100.0); MEAN CORPUSCULAR HEMOGLOBIN 24.3 PG (27.0-34.0); MEAN CORPUSCULAR HGB CONC 30.6 % (32.0-36.0); NEUT % 76.7 % (16.0-70.0); PLATELET COUNT 403 TH/MM3 (150-450); POTASSIUM 3.9 MEQ/L (3.5-5.1); RED BLOOD COUNT 2.79 MIL/MM3 (4.00-5.30); WHITE BLOOD COUNT 11.7 TH/MM3 (4.0-11.0)
[2016-06-17 08:07] LABS: HEMO FLAGS AUTO DIFF
[2016-06-17 08:08] LABS: HEMATOCRIT 22.2 % (35.0-46.0)
[2016-06-17] MEDS ORDERED: SODIUM CHLOR 0.9% 250 ML INJ 250 ML IV ONE (08:15)
[2016-06-17] MEDS: ASPIRIN EC 81 MG TABEC PO SCH (08:44)
[2016-06-17] MEDS: SEVELAMER CARBONATE 800 MG TAB PO SCH ×3 (08:44→18:12)
[2016-06-17] MEDS: CALCITRIOL 0.25 MCG CAP PO SCH (08:44)
[2016-06-17] MEDS: GABAPENTIN 100 MG CAP PO SCH ×2 (08:45→21:13)
[2016-06-17] MEDS: DOCUSATE SODIUM 50 MG/SENNA 8.6 MG TAB PO SCH ×2 (08:45→21:13)
[2016-06-17] MEDS: METHADONE HCL 10 MG TAB PO SCH ×2 (08:45→21:12)
[2016-06-17] MEDS: CINACALCET HYDROCHLORIDE 30 MG TAB PO SCH (08:45)
[2016-06-17] MEDS: FLUoxetine HCL 20 MG CAP PO SCH (08:45)
[2016-06-17] MEDS: POLYETHYLENE GLYCOL 17 GM PKG PO SCH (08:45)
[2016-06-17] MEDS: INSULIN DETEMIR 100 UNITS/ML VIAL SQ SCH ×2 (08:46→21:12)
[2016-06-17] MEDS: COLLAGENASE OINT 30 GM TUBE EXT SCH (08:47)
[2016-06-17] MEDS: SODIUM HYPOCHLORITE 0.25% 500 ML BTL TOPICAL SCH (08:47)
[2016-06-17] MEDS: POVIDONE IODINE 10% SOLN 480 ML BTL TOPICAL SCH ×2 (08:47→21:13)
[2016-06-17] MEDS: SODIUM CHLORIDE 0.9% FLUSH 5 ML FLUSH FLUSH SCH ×2 (08:48→21:54)
[2016-06-17 08:54] LABS: SCAN/DIFF AUTO DIFF CONFIRMED
--- NOTE | 2016-06-17 10:38 | HHI.PR ---
Subjective Remarks Follow up anemia, abdominal wound. Patient states that she has some nausea. Pain is adequately controlled at this time. Objective Vitals Vital Signs Date Time Temp Pulse Resp B/P Pulse Ox O2 Delivery O2 Flow Rate FiO2 06/17/16 08:00 98.5 74 20 138/64 95 06/17/16 04:00 98.1 78 18 148/66 95 06/17/16 00:00 98.8 80 18 118/56 96 06/16/16 20:00 79 06/16/16 20:00 98.8 80 18 145/62 96 06/16/16 16:00 97.7 79 20 164/74 95 06/16/16 15:12 165/79 06/16/16 12:00 98.0 77 20 194/86 93 I/O 06/16/16 06/16/16 06/16/16 06/17/16 06/17/16 06/17/16 07:00 15:00 23:00 07:00 15:00 23:00 Intake Total 360 ml 480 ml 0 ml Output Total 100 ml 50 ml Balance 260 ml 480 ml -50 ml Intake Oral 360 ml 480 ml 0 ml Drainage Total 100 ml 50 ml # Voids 2 0 0 # Bowel Movements 0 1 0 Result Diagram: 06/17/16 0645 06/17/16 0645 Imaging Last Impressions Chest X-Ray 06/08/16 0000 Signed Impressions: Service Date/Time: Wednesday, June 08, 2016 19:03 - CONCLUSION: The lungs are clear. No evidence of pneumothorax. Len Benz MD Objective Remarks General: Morbidly obese female in no acute distress. Heart: Regular rate and rhythm. No murmur. Lungs: Clear to auscultation bilaterally. No wheezes, rales, or rhonchi. Breathing is nonlabored. Abdomen: Soft. Extremities: No lower extremity edema. Psych: Alert and oriented. Procedures I&D Debridement Skin biopsy on 06/06 Urinary Catheter: No Vascular Central Line Catheter: No A/P Problem List: (1) Open wound of abdomen ICD Code: S31.109A Status: Acute (2) Type II diabetes mellitus with neurological manifestations, uncontrolled ICD Code: E11.49 Status: Chronic (3) End stage renal disease on dialysis ICD Code: N18.6 Status: Chronic (4) Hypertension, benign ICD Code: I10 Status: Chronic (5) Constipation ICD Code: K59.00 Status: Acute Assessment and Plan 1. Sepsis secondary to abdominal pannus wound/cellulitis: Sepsis is improved. Appreciate general surgery and plastic surgery recommendations. Antibiotics discontinued by infectious disease. Status post incision and drainage on . Continue wound care, pain control. Possible calciphylaxis. Biopsy results are pending. 2. Morbid obesity: Patient has been counseled. 3. Hypertension: Blood pressure is well controlled. 4. Diabetes mellitus: Monitor Accu-Cheks and cover with sliding scale insulin. 5. Hyperlipidemia: Continue home medications. 6. End-stage renal disease: On hemodialysis Friday, , Friday. Appreciate nephrology management. 7. Chronic low back pain, chronic pain syndrome: Continue pain control. Appreciate palliative care recommendations. 8. Electrolyte abnormalities: Appreciate nephrology recommendations. 9. Anemia of chronic disease worsened with acute blood loss anemia: Status post transfusion on 06/10/16 as well as erythropoietin by nephrology. H/H decreased today. Transfuse 1 unit PRBCs. 10. Acute metabolic encephalopathy: Improved. Likely secondary to morphine. 11. DVT prophylaxis: Subcutaneous heparin. 12. CODE STATUS: Full code. 13. Constipation: Appreciate GI recommendations. Continue bowel regimen. Problem Qualifiers (1) Open wound of abdomen: Qualified Code: S31.109A - Open wound of abdomen, initial encounter Marvin Wick MD Jun 17, 2016 10:38
--- NOTE | 2016-06-17 16:11 | HHI.NPPN ---
Subjective History of Present Illness 55-year-old female known to me from before with past medical history of diabetes mellitus, history of morbid obesity, end-stage renal disease on hemodialysis three times per week, history of chronic anemia, congestive heart failure, spinal stenosis, chronic back pain, hypothyroidism who came to the hospital with complaint of worsening lower abdominal wound. I was called to see the patient for the management of dialysis. The patient has been on hemodialysis Friday, and Friday. Additional Remarks Patient is alert, now getting blood transfusion. Review of Systems General Constitutional: Fatigue Respiratory Lungs: SOB Cardiovascular Cardiac: GRIFFIN Objective Data Data 06/16/16 06/17/16 19:00 07:00 Intake Total 360 ml 480 ml Output Total 100 ml 50 ml Balance 260 ml 430 ml Intake Oral 360 ml 480 ml Drainage Total 100 ml 50 ml # Voids 2 0 # Bowel Movements 1 0 Vital Signs Date Time Temp Pulse Resp B/P Pulse Ox O2 Delivery O2 Flow Rate FiO2 06/17/16 15:37 18 06/17/16 14:30 98.6 77 18 148/65 97 06/17/16 12:00 98.4 76 18 175/74 95 06/17/16 09:45 18 06/17/16 08:00 98.5 74 20 138/64 95 06/17/16 08:00 72 06/17/16 04:00 98.1 78 18 148/66 95 06/17/16 00:00 98.8 80 18 118/56 96 06/16/16 20:00 79 06/16/16 20:00 98.8 80 18 145/62 96 -: 06/17/16 0645 06/17/16 0645 Physical Exam General Appearance: No Acute Distress, Comfortable Eyes Eye Exam: Pupils Equal Throat Throat Exam: Oral Mucosa [place] & Moist Neck Neck Exam: Neck Supple Pulmonary Resp Exam: Breath Sounds Equal, Crackles, Decreased Bases, Diminished Breath Sounds Gastrointestinal/Abdomen GI Exam: Soft, Non-Tender, Distended Extremeties Extremities Exam: Moderate Edema, Pitting Edema, Dependent Edema Neurologic Neuro Exam: Alert, Awake, Oriented Assessment/Plan Assessment Summary: Anemia of CKD, Hypertension, End Stage Renal Disease Problem List: (1) Anemia in chronic kidney disease (CKD) (2) Open wound of abdomen (3) Chronic stasis dermatitis (4) End stage kidney disease Plan Possible calciphylaxis. On Sodium thiosulfate and Sensipar. On Na Thiosulphate with HD. Continue the wound care. ID is following. 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 Seen by plastic surgery and had debridement of Rt. buttock area. Also has debridement of abd. wound done. Ongoing anemia, on epogen with HD. Skin Biopsy done, follow the results. Give iron tomorrow with HD and on Epogen. Problem Qualifiers (1) Open wound of abdomen: Qualified Code: S31.109A - Open wound of abdomen, initial encounter Valentin Jimenez MD Jun 17, 2016 16:11
[2016-06-17] MEDS: ACETAMINOPHEN 325 MG TAB PO PRN (17:15)
[2016-06-17] MEDS: ATORVASTATIN 80 MG TAB PO SCH (21:13)
[2016-06-18] VITALS (7 sets, daily range): BP systolic 110–192; BP diastolic 59–87; PULSE 74–84; RESP 17–20; TEMP 97–98.5; O2SAT 92–100
[2016-06-18] MEDS: HEPARIN SODIUM - SQ 10,000 UNITS/ML VIAL SQ SCH ×2 (05:00→15:48)
[2016-06-18] MEDS: ACETAMINOPHEN/HYDROcodone 325 MG/10 MG TAB PO PRN ×4 (05:00→21:20)
[2016-06-18] MEDS: LEVOTHYROXINE SODIUM 150 MCG TAB PO SCH (05:02)
[2016-06-18] MEDS: HIGH DOSE INSULIN NOVOLOG SUPPLEMENTAL SCALE SQ SCH ×4 (05:02→21:00)
[2016-06-18] MEDS: METHADONE HCL 10 MG TAB PO SCH ×3 (07:52→21:17)
[2016-06-18] MEDS: GABAPENTIN 100 MG CAP PO SCH ×2 (07:52→21:17)
[2016-06-18] MEDS: SEVELAMER CARBONATE 800 MG TAB PO SCH ×3 (07:53→17:31)
[2016-06-18] MEDS: CINACALCET HYDROCHLORIDE 30 MG TAB PO SCH (07:53)
[2016-06-18] MEDS: CALCITRIOL 0.25 MCG CAP PO SCH (07:53)
[2016-06-18] MEDS: FLUoxetine HCL 20 MG CAP PO SCH (07:54)
[2016-06-18] MEDS: ASPIRIN EC 81 MG TABEC PO SCH (07:54)
[2016-06-18] MEDS: DOCUSATE SODIUM 50 MG/SENNA 8.6 MG TAB PO SCH ×2 (07:54→21:17)
[2016-06-18] MEDS: SODIUM HYPOCHLORITE 0.25% 500 ML BTL TOPICAL SCH (07:55)
[2016-06-18] MEDS: INSULIN DETEMIR 100 UNITS/ML VIAL SQ SCH ×2 (07:55→21:18)
[2016-06-18] MEDS: POVIDONE IODINE 10% SOLN 480 ML BTL TOPICAL SCH ×2 (07:55→21:00)
[2016-06-18] MEDS: SODIUM CHLORIDE 0.9% FLUSH 5 ML FLUSH FLUSH SCH ×2 (07:56→21:00)
[2016-06-18] MEDS: COLLAGENASE OINT 30 GM TUBE EXT SCH (07:56)
[2016-06-18] MEDS ORDERED: IRON SUCROSE INJ 100 MG in SODIUM CHLORIDE 0.9% INJ 100 ML IV ONE (08:00)
[2016-06-18 08:45] LABS: AUTOMATED NEUTROPHIL # 9.3 TH/MM3 (1.8-7.7); BASOPHIL # 0.1 TH/MM3 (0-0.2); BASOPHIL % 0.9 % (0.0-2.0); EOSINOPHIL # 0.5 TH/MM3 (0-0.4); EOSINOPHIL % 3.9 % (0.0-4.0); HEMATOCRIT 27.7 % (35.0-46.0); LYMPH % 14.7 % (9.0-44.0); LYMPHOCYTE # 1.8 TH/MM3 (1.0-4.8); MEAN CELL VOLUME 80.9 FL (80.0-100.0); MEAN CORPUSCULAR HEMOGLOBIN 24.8 PG (27.0-34.0); MEAN CORPUSCULAR HGB CONC 30.7 % (32.0-36.0); MONO % 5.6 % (0.0-8.0); NEUT % 74.9 % (16.0-70.0); PLATELET COUNT 493 TH/MM3 (150-450); RED BLOOD COUNT 3.43 MIL/MM3 (4.00-5.30); RED CELL DISTRIBUTION WIDTH 19.2 % (11.6-17.2); WHITE BLOOD COUNT 12.5 TH/MM3 (4.0-11.0)
[2016-06-18 08:46] LABS: HEMO FLAGS AUTO DIFF
[2016-06-18 09:08] LABS: BICARBONATE 26.6 MEQ/L (21.0-32.0); POTASSIUM 4.1 MEQ/L (3.5-5.1)
[2016-06-18 09:23] LABS: CRENATED RBCS 3+ (NORMAL); PLATELET ESTIMATE SMEAR HIGH (NORMAL); TOXIC VACUOLATION PRESENT (NONE SEEN)
[2016-06-18 09:24] LABS: PLATELET MORPHOLOGY NORMAL (NORMAL); SCAN/DIFF AUTO DIFF CONFIRMED
[2016-06-18] MEDS: HEPARIN SODIUM - IV 10,000 UNITS/10 ML VIAL PRN (10:11)
[2016-06-18] MEDS: EPOETIN ALFA 10,000 UNITS/ML VIAL IV PRN (10:12)
[2016-06-18] MEDS: GENTAMICIN SULFATE (DIALYSIS USE ONLY) 20 MG/2 ML VIAL IV PRN (10:12)
[2016-06-18] MEDS: SODIUM CHLOR 0.9% 1000 ML INJ 1,000 ML IV PRN (10:13)
[2016-06-18] MEDS: POLYETHYLENE GLYCOL 17 GM PKG PO SCH (13:16)
--- NOTE | 2016-06-18 14:08 | HHI.HCPN ---
Reason for visit a. To assist with evaluation and management of symptoms including: follow up on wound pain, anxiety, depression b. To assist medical decision maker(s) with: better understanding of current medical conditions; weighing benefits/burdens of medical treatment options; making medical treatment decisions. (Vangie Anguiano) Subjective/Interval History Pt seen today to follow-up on comfort, pain level, as well as goals. Stable, continues to have some anemia, yesterday H&H down to 6.8/22, ? Acute blood loss related to significant sanguinous range from dressing. Transfuse 1 unit RBC yesterday. Today H&H stable 8.5/27.7. Remains on methadone every 12, with Montezuma prn , hydromorphone prn. Sparing use of the hydromorphone. Note that the patient required 5-6 doses of the prn Montezuma yesterday. Pathology resulted; notes no histologic findings of calciphylaxis, negative for Kaposi's sarcoma. I did not visualize significant abdominal wounds myself however wound care notes: Wound has ~40% red granulation tissue and ~60% loosly adherent slough; patient yesterday with a large amount of pulsatile red drainage with wound VAC change, plastic surgery was notified, apparently has been stable since. Awaiting reapplication of wound VAC. Today patient seen in room, no visitors present. She is alert, pleasant. Observe her moving herself around in bed to reposition. She continues to indicate that she remains optimistic for some chance of recovery. Review recent clinical course, treatments in place. Review that pathology is resulted ; explore findings with her. She is very pleased, tearful that negative for calciphylaxis as she understands poor outcomes associated with calciphylaxis. I did gently explore with her that she continues to have significant wounds and even if not calciphylaxis certainly any healing process will be long, and fraught with essential for complications. She reports wound nurse has reported some healthy tissue present and wound VAC is being continued. Patient's sister is on speaker phone she participated in discussion. They have some questions about the possibility of using a [place] bed for pressure reduction--advise that that could certainly be considered though I am not certain if that is indicated or available. Patient is concerned that if she were placed on a different specialty bed which she could not be moved on and off of to go to dialysis, she would rather keep her current bed and maintain her mobility and ability to attend to dialysis. Patient's goals remain aggressive. She initially endorses that her pain is well-controlled I did review with her frequent Montezuma requirements yesterday. When her son arrives he probes for further and indicates that she has not been endorsing good pain control--but that she is afraid of the methadone so worried about any increases. Fluoroscopy them that she has now been on methadone for nearly a week and seems to be tolerating well, could consider a very slight increase from 2.5 mg every 12-2.5 mg every 8, which would provide a very slight and subtle increase in dosing and perhaps offer better pain control without oversedation which she is worried about. She is amenable to trying this increase. Therapy arrives during my visit, patient eager to work with therapy. (Vangie Anguiano) Advance Directives Living Will: Copy in medical record (Vangie Anguiano) Advance Directive Specifics Date completed: 09/2015 Health Care Surrogate(s): Primary surrogate named as son Moy Foley, secondary Robb Toledo . (Vangie Anguiano) Objective Vital Signs Date Time Temp Pulse Resp B/P Pulse Ox O2 Delivery O2 Flow Rate FiO2 06/18/16 12:00 97.0 80 20 192/82 99 06/18/16 08:00 98.1 84 18 155/87 100 06/18/16 03:20 98.5 81 18 167/72 96 06/17/16 23:06 97.8 74 18 171/77 93 06/17/16 20:00 76 06/17/16 19:45 98.0 79 18 158/67 96 06/17/16 19:13 18 06/17/16 14:30 98.6 77 18 148/65 97 Intake & Output 06/18/16 06/18/16 07:00 19:00 Intake Total 1200 ml Output Total 1500 ml Balance 1200 ml -1500 ml Intake Oral 1200 ml Hemodialysis 1500 ml # Voids 3 # Bowel Movements 0 Physical Exam CONSTITUTIONAL/GENERAL: Obese, chronically ill-appearing female, pleasant, alert oriented TUBES/LINES/DRAINS: Dialysis access right upper chest nearing jugular. PIV RUE. SKIN: No jaundice, rashes, or lesions. Bilateral lower extremities with significant hyperkeratotic skin thickening . Skin temperature warm. CARDIOVASCULAR: Heart sounds regular, heart sounds distant. No murmur appreciated. Significant lymphedema to lower extremities I'm unable to palpate pedal pulses, palpable radial pulses RESPIRATORY/CHEST: Symmetric, unlabored respirations on room air. Clear to auscultation. Decreased air movement throughout. GASTROINTESTINAL: Abdomen obese, areas of firmness. + tender. Bowel sounds present. No palpable masses- somewhat limited abdominal exam. several large wounds noted : Right Abdomen w dressing intact, rt hip with dressing intact. Unable to visualize 2/2 to dressings. Reported wound to buttocks I did not visualize. NEUROLOGICAL: Awake and alert, oriented x3 appropriate. appears to have good insight. Moves all 4 extremities with generalized weakness. PSYCHIATRIC: anxious at times. (Vangie Anguiano) Diagnostic Tests Laboratory Laboratory Tests Test 06/16/16 06/17/16 06/17/16 06/18/16 11:30 06:45 09:30 07:28 White Blood Count 12.1 TH/MM3 11.7 TH/MM3 12.5 TH/MM3 (4.0-11.0) (4.0-11.0) (4.0-11.0) Red Blood Count 2.80 MIL/MM3 2.79 MIL/MM3 3.43 MIL/MM3 (4.00-5.30) (4.00-5.30) (4.00-5.30) Hemoglobin 7.1 GM/DL 6.8 GM/DL 8.5 GM/DL (11.6-15.3) (11.6-15.3) (11.6-15.3) Hematocrit 22.1 % 22.2 % 27.7 % (35.0-46.0) (35.0-46.0) (35.0-46.0) Mean Corpuscular Volume 78.9 FL 79.6 FL 80.9 FL (80.0-100.0) (80.0-100.0) (80.0-100.0) Mean Corpuscular Hemoglobin 25.3 PG 24.3 PG 24.8 PG (27.0-34.0) (27.0-34.0) (27.0-34.0) Mean Corpuscular Hemoglobin 32.1 % 30.6 % 30.7 % Concent (32.0-36.0) (32.0-36.0) (32.0-36.0) Red Cell Distribution Width 19.4 % 20.0 % 19.2 % (11.6-17.2) (11.6-17.2) (11.6-17.2) Platelet Count 436 TH/MM3 403 TH/MM3 493 TH/MM3 (150-450) (150-450) (150-450) Mean Platelet Volume 6.9 FL 6.8 FL 7.0 FL (7.0-11.0) (7.0-11.0) (7.0-11.0) Neutrophils (%) (Auto) 81.1 % 76.7 % 74.9 % (16.0-70.0) (16.0-70.0) (16.0-70.0) Lymphocytes (%) (Auto) 10.4 % 13.3 % 14.7 % (9.0-44.0) (9.0-44.0) (9.0-44.0) Monocytes (%) (Auto) 5.7 % (0.0-8.0) 6.0 % (0.0-8.0) 5.6 % (0.0-8.0) Eosinophils (%) (Auto) 2.1 % (0.0-4.0) 3.4 % (0.0-4.0) 3.9 % (0.0-4.0) Basophils (%) (Auto) 0.7 % (0.0-2.0) 0.6 % (0.0-2.0) 0.9 % (0.0-2.0) Neutrophils # (Auto) 9.8 TH/MM3 9.0 TH/MM3 9.3 TH/MM3 (1.8-7.7) (1.8-7.7) (1.8-7.7) Lymphocytes # (Auto) 1.3 TH/MM3 1.6 TH/MM3 1.8 TH/MM3 (1.0-4.8) (1.0-4.8) (1.0-4.8) Monocytes # (Auto) 0.7 TH/MM3 0.7 TH/MM3 0.7 TH/MM3 (0-0.9) (0-0.9) (0-0.9) Eosinophils # (Auto) 0.3 TH/MM3 0.4 TH/MM3 0.5 TH/MM3 (0-0.4) (0-0.4) (0-0.4) Basophils # (Auto) 0.1 TH/MM3 0.1 TH/MM3 0.1 TH/MM3 (0-0.2) (0-0.2) (0-0.2) CBC Comment DIFF FINAL AUTO DIFF AUTO DIFF Differential Comment AUTO DIFF AUTO DIFF CONFIRMED CONFIRMED Sodium Level 135 MEQ/L 132 MEQ/L (136-145) (136-145) Potassium Level 3.9 MEQ/L 4.1 MEQ/L (3.5-5.1) (3.5-5.1) Chloride Level 96 MEQ/L 92 MEQ/L (98-107) (98-107) Carbon Dioxide Level 27.7 MEQ/L 26.6 MEQ/L (21.0-32.0) (21.0-32.0) Anion Gap 11 MEQ/L (5-15) 13 MEQ/L (5-15) Blood Urea Nitrogen 40 MG/DL (7-18) 51 MG/DL (7-18) Creatinine 5.34 MG/DL 6.33 MG/DL (0.50-1.00) (0.50-1.00) Estimat Glomerular Filtration 8 ML/MIN (>89) 7 ML/MIN (>89) Rate Random Glucose 130 MG/DL 100 MG/DL (74-106) (74-106) Calcium Level 8.5 MG/DL 8.7 MG/DL (8.5-10.1) (8.5-10.1) Blood Type O POSITIVE Antibody Screen NEGATIVE Crossmatch Leukocyte-Reduced Red Blood Cells Blood Bank Comment Toxic Vacuolation PRESENT (NONE SEEN) Platelet Estimate HIGH (NORMAL) Platelet Morphology Comment NORMAL (NORMAL) Crenated Cell 3+ (NORMAL) (Vangie Anguiano) Result Diagram: 06/18/16 0728 06/18/16 0728 Imaging Last Impressions Chest X-Ray 06/08/16 0000 Signed Impressions: Service Date/Time: Wednesday, June 08, 2016 19:03 - CONCLUSION: The lungs are clear. No evidence of pneumothorax. Len Benz MD Procedures * 05/17I&D done by Dr. Johnson--->> overall area of excision approximately 25 cm x 10 cm vertical, at a depth of 6-8 cm. * 05/26 to OR for repeat I&D (Vangie Anguiano) Assessment and Plan Disease Oriented Problem List: (1) Hypertension, benign (2) Pseudomonas aeruginosa infection (3) Symptomatic anemia (4) Anemia in chronic kidney disease (CKD) (5) End stage renal disease on dialysis (6) Anxiety (7) Asterixis (8) Sepsis (9) Diabetes (10) Chronic back pain Symptom Scale: (1) Anxiety 0-10 Scale: Unable to quantify (2) Depression 0-10 Scale: Unable to quantify (3) Malnutrition 0-10 Scale: Unable to quantify (4) Pain 0-10 Scale: 10 Pertinent Non-Medical Issues Psychosocial:Patient , lives at home with her son and significant other. Supported by adult son, sister, sig other, and mother. 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 Originally from [place], lived in [place] for many years on and off. Spiritual:gnosticism- graphic engineer has been in Legal:Patient currently capacitated and able to make her own medical decisions. 5 wishes directive document completed in 2016 names primary HCS as (son) Moy Foley, secondary as (sig other) Robb Toledo. Ethical issues impacting care: Important Contacts Son Moy Foley- [phone] Prognosis This unfortunate patient was admitted with worsening wounds to the abdomen, which have continued to worsen despite aggressive antibiotic and surgical management. She has multiple chronic medical comorbidities including diabetes, cardiovascular disease and end-stage renal failure dependent on dialysis. 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 She has been initiated on treatment with sodium thiosulfate, which to my understanding the impact on overall survival rates is not yet known. Given her overall compromised state she remains high risk for further complications and setbacks. Code Status: Full Code Plan * Legal decision maker: Patient is currently able to make her own decisions. She has documents naming her son is primary decision-maker should she become incapacitated. Her significant other is named as secondary. * Goals: Patient's goals are aggressive, she wishes to continue whatever therapies are recommended to help her overall improvement and long-term prognosis. Hospice has been previously discussed but she is not ready to transition to comfort measures only. She is in agreement today to slightly increase her methadone dosing for better pain control. * CODE STATUS: Full code * SYMPTOMS: --Pain-ongoing chronic back pain related to prior injury, previously well controlled with Montezuma use in the home. New or diffuse burning type pain across/ under abdominal tissues she describes as feeling like a "shingles like "pain. Pt had been on long acting morphine, which was discontinue due to lethargy (narcan given) Given her renal insufficiency, methadone or fentanyl would be the better option. Pt is a good candidate for methadone. Start on methadone 2.5 mg PO Q12 hours atc. She has been on this dose for nearly a week, tolerating well. Still w increase PRN use, high pain level of 8/10. open to small increase in methadone. Increased Methadone to 2.5mg PO Q 8 hr Continue prn norco and dilaudid IV. --anxiety- few episodes of anxiety feels "panicked" during hospital course- has 0.125 MG xanax available, appears effective. -- depression- situational, patient with multiple chronic comorbid medical conditions-exploration with patient use of antidepressant for long-term assistance with depression related to long-term disease process. She is currently on Prozac 20 mg daily. Could consider up titration if needed. --Malnutritionchronic. Albumin 1.5. Good appetite, good oral intake for the past few days eating 100% of most meals. Taking Nepro supplements. Continue to evaluate. * Palliative care will continue to follow during hospital course as condition evolves, to assist patient/decision-maker with understanding of medical conditions, weighing benefits/burdens of treatment options, for clarification of goals of treatment. Additionally will assist with any symptoms of palliative concern. (Vangie Anguiano) Time Spent Total Floor Time (mins): 30 >50% Counseling/Coord of Care: Yes (d/w medical attending) (Vangie Anguiano) Attestation To help prompt me to consider important information that might be impacting today's encounter and assessment, information from prior notes written by myself or my colleagues may have been "brought forward" into today's note. My signature on this note, however, is an attestation that I personally performed the exam, history, and/or decision-making noted today, and, unless otherwise indicated, the interactions with patient, family, and staff as well as the review of records all occurred today. I also attest that the listed assessment and stated plan reflect my best clinical judgment today based on the combination of historical information, prior notes, and today's exam/ interactions. When time spent is documented, it refers only to time spent today by the signer, or if indicated, combined time spent today by collaborating physician/nurse practitioner. (Vangie Anguiano) Collaborating MD Comments . Chart reviewed. Cased discussed with palliative care ART MODEL. Above ART MODEL note reviewed and I concur. . (Luis Antonio Matias MD) Vangie Anguiano Jun 18, 2016 14:08 Luis Antonio Matias MD August 05, 2016 14:53
[2016-06-18] MEDS ORDERED: PILL SPLITTER OTHER PRN (14:15)
--- NOTE | 2016-06-18 15:07 | HHI.PR ---
Subjective Remarks Follow up abdominal wound, anemia. I was notified by the wound care nurse that the patient's wound is bleeding again. By the time I arrived at bedside gel foam had been applied and the bleeding had stopped. The patient reports increased pain from the pressure being held on the wound to stop the bleeding. She has no other complaints at this time. Objective Vitals Vital Signs Date Time Temp Pulse Resp B/P Pulse Ox O2 Delivery O2 Flow Rate FiO2 06/18/16 12:00 97.0 80 20 192/82 99 06/18/16 08:00 98.1 84 18 155/87 100 06/18/16 03:20 98.5 81 18 167/72 96 06/17/16 23:06 97.8 74 18 171/77 93 06/17/16 20:00 76 06/17/16 19:45 98.0 79 18 158/67 96 06/17/16 19:13 18 I/O 06/17/16 06/17/16 06/17/16 06/18/16 06/18/16 06/18/16 07:00 15:00 23:00 07:00 15:00 23:00 Intake Total 0 ml 960 ml 1285 ml 240 ml Output Total 50 ml 1500 ml Balance -50 ml 960 ml 1285 ml 240 ml -1500 ml Intake Oral 0 ml 960 ml 960 ml 240 ml Packed Cells 325 ml Drainage Total 50 ml Hemodialysis 1500 ml # Voids 0 1 2 1 # Bowel Movements 0 0 0 0 Result Diagram: 06/18/16 0728 06/18/16 0728 Imaging Last Impressions Chest X-Ray 06/08/16 0000 Signed Impressions: Service Date/Time: Wednesday, June 08, 2016 19:03 - CONCLUSION: The lungs are clear. No evidence of pneumothorax. Len Benz MD Objective Remarks General: Morbidly obese female in no acute distress. Heart: Regular rate and rhythm. No murmur. Lungs: Clear to auscultation bilaterally. No wheezes, rales, or rhonchi. Breathing is nonlabored. Abdomen: Soft. Large open wound on pannus. Extremities: No lower extremity edema. Psych: Alert and oriented. Procedures I&D Debridement Skin biopsy on 06/06 Urinary Catheter: No Vascular Central Line Catheter: No A/P Problem List: (1) Open wound of abdomen ICD Code: S31.109A Status: Acute (2) Type II diabetes mellitus with neurological manifestations, uncontrolled ICD Code: E11.49 Status: Chronic (3) End stage renal disease on dialysis ICD Code: N18.6 Status: Chronic (4) Hypertension, benign ICD Code: I10 Status: Chronic (5) Constipation ICD Code: K59.00 Status: Acute Assessment and Plan 1. Sepsis secondary to abdominal pannus wound/cellulitis: Sepsis is improved. Appreciate general surgery and plastic surgery recommendations. Antibiotics discontinued by infectious disease. Status post incision and drainage on . Continue wound care, pain control. Possible calciphylaxis. Biopsy results are pending. 2. Morbid obesity: Patient has been counseled. 3. Hypertension: Blood pressure is well controlled. 4. Diabetes mellitus: Monitor Accu-Cheks and cover with sliding scale insulin. 5. Hyperlipidemia: Continue home medications. 6. End-stage renal disease: On hemodialysis Friday, , Friday. Appreciate nephrology management. 7. Chronic low back pain, chronic pain syndrome: Continue pain control. Appreciate palliative care recommendations. Methadone increased today. 8. Electrolyte abnormalities: Appreciate nephrology recommendations. 9. Anemia of chronic disease worsened with acute blood loss anemia: Status post transfusion on 06/10/16 as well as erythropoietin by nephrology. H/H improved after transfusion. Patient has had bleeding from the wound. 10. Acute metabolic encephalopathy: Improved. Likely secondary to morphine. 11. DVT prophylaxis: Subcutaneous heparin. 12. CODE STATUS: Full code. 13. Constipation: Appreciate GI recommendations. Continue bowel regimen. 14. Bleeding from wound: Patient had significant bleeding from the abdominal wound yesterday that stopped after pressure was applied. Today she again had bleeding from the same location. Gel foam was applied. Plastic surgery was notified. Wound may need to be cauterized. No active bleeding upon my examination. Problem Qualifiers (1) Open wound of abdomen: Qualified Code: S31.109A - Open wound of abdomen, initial encounter Marvin Wick MD Jun 18, 2016 15:07
[2016-06-18 16:40] LABS: HEMATOCRIT 25.1 % (35.0-46.0); REVIEW FLAG FINAL
--- NOTE | 2016-06-18 20:26 | HHI.NPPN ---
Subjective History of Present Illness 55-year-old female known to me from before with past medical history of diabetes mellitus, history of morbid obesity, end-stage renal disease on hemodialysis three times per week, history of chronic anemia, congestive heart failure, spinal stenosis, chronic back pain, hypothyroidism who came to the hospital with complaint of worsening lower abdominal wound. I was called to see the patient for the management of dialysis. The patient has been on hemodialysis Friday, and Friday. Additional Remarks Patient is alert, mild pain in her abd. wound, no SOB, not in distress. Review of Systems General Constitutional: Fatigue Respiratory Lungs: SOB Cardiovascular Cardiac: GRIFFIN Objective Data Data 06/17/16 06/18/16 19:00 07:00 Intake Total 1285 ml 1200 ml Balance 1285 ml 1200 ml Intake Oral 960 ml 1200 ml Packed Cells 325 ml # Voids 1 3 # Bowel Movements 0 0 Vital Signs Date Time Temp Pulse Resp B/P Pulse Ox O2 Delivery O2 Flow Rate FiO2 06/18/16 16:00 98.0 79 18 165/86 97 06/18/16 12:00 97.0 80 20 192/82 99 06/18/16 08:00 98.1 84 18 155/87 100 06/18/16 03:20 98.5 81 18 167/72 96 06/17/16 23:06 97.8 74 18 171/77 93 -: 06/18/16 1616 06/18/16 0728 Physical Exam General Appearance: No Acute Distress, Comfortable Eyes Eye Exam: Pupils Equal Throat Throat Exam: Oral Mucosa [place] & Moist Neck Neck Exam: Neck Supple Pulmonary Resp Exam: Breath Sounds Equal, Crackles, Decreased Bases, Diminished Breath Sounds Gastrointestinal/Abdomen GI Exam: Soft, Non-Tender, Distended Extremeties Extremities Exam: Moderate Edema, Pitting Edema, Dependent Edema Neurologic Neuro Exam: Alert, Awake, Oriented Assessment/Plan Assessment Summary: Anemia of CKD, Hypertension, End Stage Renal Disease Problem List: (1) Anemia in chronic kidney disease (CKD) (2) Open wound of abdomen (3) Chronic stasis dermatitis (4) End stage kidney disease Plan Possible calciphylaxis. On Sodium thiosulfate and Sensipar. On Na Thiosulphate with HD. Continue the wound care. ID is following. 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 Seen by plastic surgery and had debridement of Rt. buttock area. Also has debridement of abd. wound done. Ongoing anemia, on epogen with HD. Skin Biopsy done, follow the results. HD done and also given iron and Epogen. 1.5 Liters removed. Problem Qualifiers (1) Open wound of abdomen: Qualified Code: S31.109A - Open wound of abdomen, initial encounter Valentin Jimenez MD Jun 18, 2016 20:26
[2016-06-18] MEDS: ATORVASTATIN 80 MG TAB PO SCH (21:17)
[2016-06-19] VITALS (7 sets, daily range): BP systolic 103–162; BP diastolic 60–76; PULSE 77–92; RESP 18–20; TEMP 98–98.4; O2SAT 93–97
[2016-06-19] MEDS: HEPARIN SODIUM - SQ 10,000 UNITS/ML VIAL SQ SCH ×2 (04:00→18:40)
[2016-06-19] MEDS: ACETAMINOPHEN/HYDROcodone 325 MG/10 MG TAB PO PRN ×4 (05:10→21:40)
[2016-06-19] MEDS: METHADONE HCL 10 MG TAB PO SCH ×3 (05:10→21:40)
[2016-06-19] MEDS: LEVOTHYROXINE SODIUM 150 MCG TAB PO SCH (05:11)
[2016-06-19] MEDS: HIGH DOSE INSULIN NOVOLOG SUPPLEMENTAL SCALE SQ SCH ×4 (06:36→21:00)
[2016-06-19] MEDS: CINACALCET HYDROCHLORIDE 30 MG TAB PO SCH (08:36)
[2016-06-19] MEDS: CALCITRIOL 0.25 MCG CAP PO SCH (08:36)
[2016-06-19] MEDS: GABAPENTIN 100 MG CAP PO SCH ×2 (08:38→21:39)
[2016-06-19] MEDS: SEVELAMER CARBONATE 800 MG TAB PO SCH ×4 (08:38→18:40)
[2016-06-19] MEDS: FLUoxetine HCL 20 MG CAP PO SCH (08:38)
[2016-06-19] MEDS: ASPIRIN EC 81 MG TABEC PO SCH (08:39)
[2016-06-19] MEDS: POLYETHYLENE GLYCOL 17 GM PKG PO SCH (08:39)
[2016-06-19] MEDS: POVIDONE IODINE 10% SOLN 480 ML BTL TOPICAL SCH ×2 (08:39→21:41)
[2016-06-19] MEDS: INSULIN DETEMIR 100 UNITS/ML VIAL SQ SCH ×2 (08:39→21:40)
[2016-06-19] MEDS: DOCUSATE SODIUM 50 MG/SENNA 8.6 MG TAB PO SCH ×2 (08:39→21:40)
[2016-06-19] MEDS: SODIUM CHLORIDE 0.9% FLUSH 5 ML FLUSH FLUSH SCH ×2 (08:40→22:06)
[2016-06-19] MEDS ORDERED: SILVER NITR/POTASSIUM NITRATE APPLICATORS TOPICAL ONE (09:45)
[2016-06-19 10:04] LABS: AUTOMATED NEUTROPHIL # 11.1 TH/MM3 (1.8-7.7); BASOPHIL # 0.1 TH/MM3 (0-0.2); BASOPHIL % 0.6 % (0.0-2.0); EOSINOPHIL # 0.3 TH/MM3 (0-0.4); EOSINOPHIL % 2.5 % (0.0-4.0); HEMATOCRIT 24.5 % (35.0-46.0); LYMPH % 10.9 % (9.0-44.0); LYMPHOCYTE # 1.5 TH/MM3 (1.0-4.8); MEAN CELL VOLUME 80.4 FL (80.0-100.0); MEAN CORPUSCULAR HEMOGLOBIN 24.7 PG (27.0-34.0); MEAN CORPUSCULAR HGB CONC 30.7 % (32.0-36.0); MONO % 5.1 % (0.0-8.0); NEUT % 80.9 % (16.0-70.0); PLATELET COUNT 437 TH/MM3 (150-450); RED BLOOD COUNT 3.05 MIL/MM3 (4.00-5.30); RED CELL DISTRIBUTION WIDTH 19.1 % (11.6-17.2); WHITE BLOOD COUNT 13.8 TH/MM3 (4.0-11.0)
[2016-06-19 10:15] LABS: HEMO FLAGS AUTO DIFF
--- NOTE | 2016-06-19 10:47 | HHI.PR ---
Subjective Remarks Follow up abdominal wound, anemia. Patient is having pain from the abdominal wound. No other complaints at this time. Objective Vitals Vital Signs Date Time Temp Pulse Resp B/P Pulse Ox O2 Delivery O2 Flow Rate FiO2 06/19/16 08:00 98.4 80 20 119/70 93 06/19/16 04:00 98.0 80 20 134/62 97 06/19/16 00:26 80 06/18/16 23:53 98.1 76 20 134/63 92 06/18/16 22:48 18 06/18/16 22:46 18 06/18/16 20:00 97.9 81 20 130/59 94 06/18/16 18:45 98.5 81 17 137/63 95 06/18/16 16:00 98.0 79 18 165/86 97 06/18/16 12:00 97.0 80 20 192/82 99 I/O 06/18/16 06/18/16 06/18/16 06/19/16 06/19/16 06/19/16 07:00 15:00 23:00 07:00 15:00 23:00 Intake Total 240 ml 480 ml 480 ml 480 ml Output Total 1500 ml Balance 240 ml -1020 ml 480 ml 480 ml Intake Oral 240 ml 480 ml 480 ml 480 ml Hemodialysis 1500 ml # Voids 1 0 1 1 # Bowel Movements 0 0 0 0 Result Diagram: 06/19/16 0857 06/18/16 0728 Imaging Last Impressions Chest X-Ray 06/08/16 0000 Signed Impressions: Service Date/Time: Wednesday, June 08, 2016 19:03 - CONCLUSION: The lungs are clear. No evidence of pneumothorax. Len Benz MD Objective Remarks General: Morbidly obese female in no acute distress. Heart: Regular rate and rhythm. No murmur. Lungs: Clear to auscultation bilaterally. No wheezes, rales, or rhonchi. Breathing is nonlabored. Abdomen: Soft. Large wound on pannus. Extremities: No lower extremity edema. Psych: Alert and oriented. Procedures I&D Debridement Skin biopsy on 06/06 Urinary Catheter: No Vascular Central Line Catheter: No A/P Problem List: (1) Open wound of abdomen ICD Code: S31.109A Status: Acute (2) Type II diabetes mellitus with neurological manifestations, uncontrolled ICD Code: E11.49 Status: Chronic (3) End stage renal disease on dialysis ICD Code: N18.6 Status: Chronic (4) Hypertension, benign ICD Code: I10 Status: Chronic (5) Constipation ICD Code: K59.00 Status: Acute Assessment and Plan 1. Sepsis secondary to abdominal pannus wound/cellulitis: Sepsis is improved. Appreciate general surgery and plastic surgery recommendations. Antibiotics discontinued by infectious disease. Status post incision and drainage on . Continue wound care, pain control. Possible calciphylaxis. Biopsy results are pending. 2. Morbid obesity: Patient has been counseled. 3. Hypertension: Blood pressure is well controlled. 4. Diabetes mellitus: Monitor Accu-Cheks and cover with sliding scale insulin. 5. Hyperlipidemia: Continue home medications. 6. End-stage renal disease: On hemodialysis Friday, , Friday. Appreciate nephrology management. 7. Chronic low back pain, chronic pain syndrome: Continue pain control. Appreciate palliative care recommendations. Methadone increased yesterday. 8. Electrolyte abnormalities: Appreciate nephrology recommendations. 9. Anemia of chronic disease worsened with acute blood loss anemia: Status post transfusion on 06/10/16 as well as erythropoietin by nephrology. H/H improved after transfusion. Patient has had bleeding from the wound. 10. Acute metabolic encephalopathy: Improved. Likely secondary to morphine. 11. DVT prophylaxis: Subcutaneous heparin. 12. CODE STATUS: Full code. 13. Constipation: Appreciate GI recommendations. Continue bowel regimen. 14. Bleeding from wound: The patient has had significant bleeding from the wound on 3 different occasions. Wound care nurses have applied pressure and Gelfoam. Plastic surgery has been notified. Patient may need cautery. Plastic surgery has recommended transfer to a tertiary care center for more definitive surgical treatment including panniculectomy. Discharge Planning Case management to assist with possible transfer to tertiary care center. Problem Qualifiers (1) Open wound of abdomen: Qualified Code: S31.109A - Open wound of abdomen, initial encounter Marvin Wick MD Jun 19, 2016 10:47
[2016-06-19 12:03] LABS: BANDS 18 % (0-6); BASOPHILS 2 % (0-2); CRENATED RBCS 3+ (NORMAL); EOSINOPHILS 2 % (0-4); MYELOCYTES 1 % (0-0); POLYS (SEG NEUTROPHILS) 61 % (16-70); WBC DIFF SAMPLE 100
[2016-06-19 12:04] LABS: PLATELET ESTIMATE SMEAR HIGH (NORMAL); PLATELET MORPHOLOGY NORMAL (NORMAL); SCAN/DIFF FINAL DIFF MANUAL
[2016-06-19] MEDS: COLLAGENASE OINT 30 GM TUBE EXT SCH (13:00)
[2016-06-19] MEDS: SODIUM HYPOCHLORITE 0.25% 500 ML BTL TOPICAL SCH (13:46)
[2016-06-19 15:26] LABS: HEMATOCRIT 21.8 % (35.0-46.0); REVIEW FLAG FINAL
--- NOTE | 2016-06-19 15:36 | HHI.HCPN ---
Reason for visit a. To assist with evaluation and management of symptoms including: follow up on wound pain, anxiety, depression b. To assist medical decision maker(s) with: better understanding of current medical conditions; weighing benefits/burdens of medical treatment options; making medical treatment decisions. (Vangie Anguiano) Subjective/Interval History Pt seen today to follow-up on comfort, pain level, as well as goals. Recent increase in Methadone to 2.5mg TID. Stable, continues to have some anemia, H&H down to 7.5/24.5, ?Acute blood loss related to significant sanguinous range from dressing. Will team discussing with wound management team, possible transfer to tertiary care center for definitive surgical management of large abdominal wounds. Hemodynamics stable. Nursing continues to report episodes of moderate sanguinous drainage, wound VAC remains off, dressing with absorbent dressings, bleeding seems to stabilize when pressure held, dressing applied. Now on methadone 2.5 mg 3 times a day, this was increased from twice daily yesterday. Has Majestic, hydromorphone prn. Patient has required 2 doses of Majestic today, significantly higher doses yesterday. Today patient seen in room, son bedside. Seen with (Dany ELLIOTT). She is alert, oriented, pleasant. Explore with her current conditions, treatment plans in place. She is aware of possible transfer to tertiary care center. Explore with her limitations of current treatments and physicians exploring option for further management a tertiary facility. Gen. review of transfer process, and the patient wants needs were metastases could be transferred back to this facility. Advised that this was still working process and could be several days before she is actually transferred. She and her son appear to have good understanding, goals remain aggressive she wishes to continue to pursue whatever measures are necessary to help her get better. ROS essentially negative except for fatigue/tiredness which she attributes to blood loss, she feels she has increased pain to the right side of her abdominal wound today which is new for her, she feels is secondary to pressure being held during episodes of bleeding. She has not had prn recently advised she could request dose, nursing notified by patient at this time. Dressings to abdomen currently in place clean and dry did not remove for exam. (Vangie Anguiano) Advance Directives Living Will: Copy in medical record (Vangie Anguiano) Advance Directive Specifics Date completed: 09/2015 Health Care Surrogate(s): Primary surrogate named as son Moy Foley, secondary Robb Toledo . (Vangie Anguiano) Objective Vital Signs Date Time Temp Pulse Resp B/P Pulse Ox O2 Delivery O2 Flow Rate FiO2 06/19/16 12:00 98.3 88 20 137/76 96 06/19/16 08:28 83 06/19/16 08:00 98.4 80 20 119/70 93 06/19/16 04:00 98.0 80 20 134/62 97 06/19/16 00:26 80 06/18/16 23:53 98.1 76 20 134/63 92 06/18/16 22:48 18 06/18/16 22:46 18 06/18/16 20:00 97.9 81 20 130/59 94 06/18/16 18:45 98.5 81 17 137/63 95 06/18/16 16:00 98.0 79 18 165/86 97 Intake & Output 06/19/16 06/19/16 07:00 19:00 Intake Total 960 ml Balance 960 ml Intake Oral 960 ml # Voids 2 # Bowel Movements 0 Physical Exam CONSTITUTIONAL/GENERAL: Obese, chronically ill-appearing female, pleasant, alert oriented TUBES/LINES/DRAINS: Dialysis access right upper chest nearing jugular. PIV RUE. SKIN: No jaundice, rashes, or lesions. Bilateral lower extremities with significant hyperkeratotic skin thickening . Skin temperature warm. CARDIOVASCULAR: Heart sounds regular, heart sounds distant. No murmur appreciated. Significant lymphedema to lower extremities I'm unable to palpate pedal pulses, palpable radial pulses RESPIRATORY/CHEST: Symmetric, unlabored respirations on room air. Clear to auscultation. Decreased air movement throughout. GASTROINTESTINAL: Abdomen obese, areas of firmness. + tender. Bowel sounds present. No palpable masses- somewhat limited abdominal exam. several large wounds noted : Right Abdomen w dressing intact, rt hip with dressing intact. Unable to visualize 2/2 to dressings. Reported wound to buttocks I did not visualize. NEUROLOGICAL: Awake and alert, oriented x3 appropriate. appears to have good insight. Moves all 4 extremities with generalized weakness. PSYCHIATRIC: anxious at times. (Vangie Anguiano) Diagnostic Tests Laboratory Laboratory Tests Test 06/17/16 06/17/16 06/18/16 4/11/17 06:45 09:30 07:28 16:16 White Blood Count 11.7 TH/MM3 12.5 TH/MM3 (4.0-11.0) (4.0-11.0) Red Blood Count 2.79 MIL/MM3 3.43 MIL/MM3 (4.00-5.30) (4.00-5.30) Hemoglobin 6.8 GM/DL 8.5 GM/DL 8.1 GM/DL (11.6-15.3) (11.6-15.3) (11.6-15.3) Hematocrit 22.2 % 27.7 % 25.1 % (35.0-46.0) (35.0-46.0) (35.0-46.0) Mean Corpuscular Volume 79.6 FL 80.9 FL (80.0-100.0) (80.0-100.0) Mean Corpuscular Hemoglobin 24.3 PG 24.8 PG (27.0-34.0) (27.0-34.0) Mean Corpuscular Hemoglobin 30.6 % 30.7 % Concent (32.0-36.0) (32.0-36.0) Red Cell Distribution Width 20.0 % 19.2 % (11.6-17.2) (11.6-17.2) Platelet Count 403 TH/MM3 493 TH/MM3 (150-450) (150-450) Mean Platelet Volume 6.8 FL 7.0 FL (7.0-11.0) (7.0-11.0) Neutrophils (%) (Auto) 76.7 % 74.9 % (16.0-70.0) (16.0-70.0) Lymphocytes (%) (Auto) 13.3 % 14.7 % (9.0-44.0) (9.0-44.0) Monocytes (%) (Auto) 6.0 % (0.0-8.0) 5.6 % (0.0-8.0) Eosinophils (%) (Auto) 3.4 % (0.0-4.0) 3.9 % (0.0-4.0) Basophils (%) (Auto) 0.6 % (0.0-2.0) 0.9 % (0.0-2.0) Neutrophils # (Auto) 9.0 TH/MM3 9.3 TH/MM3 (1.8-7.7) (1.8-7.7) Lymphocytes # (Auto) 1.6 TH/MM3 1.8 TH/MM3 (1.0-4.8) (1.0-4.8) Monocytes # (Auto) 0.7 TH/MM3 0.7 TH/MM3 (0-0.9) (0-0.9) Eosinophils # (Auto) 0.4 TH/MM3 0.5 TH/MM3 (0-0.4) (0-0.4) Basophils # (Auto) 0.1 TH/MM3 0.1 TH/MM3 (0-0.2) (0-0.2) CBC Comment AUTO DIFF AUTO DIFF Differential Comment AUTO DIFF AUTO DIFF CONFIRMED CONFIRMED Sodium Level 135 MEQ/L 132 MEQ/L (136-145) (136-145) Potassium Level 3.9 MEQ/L 4.1 MEQ/L (3.5-5.1) (3.5-5.1) Chloride Level 96 MEQ/L 92 MEQ/L (98-107) (98-107) Carbon Dioxide Level 27.7 MEQ/L 26.6 MEQ/L (21.0-32.0) (21.0-32.0) Anion Gap 11 MEQ/L (5-15) 13 MEQ/L (5-15) Blood Urea Nitrogen 40 MG/DL (7-18) 51 MG/DL (7-18) Creatinine 5.34 MG/DL 6.33 MG/DL (0.50-1.00) (0.50-1.00) Estimat Glomerular Filtration 8 ML/MIN (>89) 7 ML/MIN (>89) Rate Random Glucose 130 MG/DL 100 MG/DL (74-106) (74-106) Calcium Level 8.5 MG/DL 8.7 MG/DL (8.5-10.1) (8.5-10.1) Blood Type O POSITIVE Antibody Screen NEGATIVE Crossmatch Leukocyte-Reduced Red Blood Cells Blood Bank Comment Toxic Vacuolation PRESENT (NONE SEEN) Platelet Estimate HIGH (NORMAL) Platelet Morphology Comment NORMAL (NORMAL) Crenated Cell 3+ (NORMAL) Test 06/19/16 08:57 White Blood Count 13.8 TH/MM3 (4.0-11.0) Red Blood Count 3.05 MIL/MM3 (4.00-5.30) Hemoglobin 7.5 GM/DL (11.6-15.3) Hematocrit 24.5 % (35.0-46.0) Mean Corpuscular Volume 80.4 FL (80.0-100.0) Mean Corpuscular Hemoglobin 24.7 PG (27.0-34.0) Mean Corpuscular Hemoglobin 30.7 % Concent (32.0-36.0) Red Cell Distribution Width 19.1 % (11.6-17.2) Platelet Count 437 TH/MM3 (150-450) Mean Platelet Volume 6.9 FL (7.0-11.0) Neutrophils (%) (Auto) 80.9 % (16.0-70.0) Lymphocytes (%) (Auto) 10.9 % (9.0-44.0) Monocytes (%) (Auto) 5.1 % (0.0-8.0) Eosinophils (%) (Auto) 2.5 % (0.0-4.0) Basophils (%) (Auto) 0.6 % (0.0-2.0) Neutrophils # (Auto) 11.1 TH/MM3 (1.8-7.7) Lymphocytes # (Auto) 1.5 TH/MM3 (1.0-4.8) Monocytes # (Auto) 0.7 TH/MM3 (0-0.9) Eosinophils # (Auto) 0.3 TH/MM3 (0-0.4) Basophils # (Auto) 0.1 TH/MM3 (0-0.2) CBC Comment AUTO DIFF Differential Total Cells 100 Counted Neutrophils % (Manual) 61 % (16-70) Band Neutrophils % 18 % (0-6) Lymphocytes % 10 % (9-44) Monocytes % 6 % (0-8) Eosinophils % 2 % (0-4) Basophils % 2 % (0-2) Neutrophils # (Manual) 11.0 TH/MM3 (1.8-7.7) Myelocytes 1 % (0-0) Differential Comment FINAL DIFF MANUAL Platelet Estimate HIGH (NORMAL) Platelet Morphology Comment NORMAL (NORMAL) Crenated Cell 3+ (NORMAL) (Vangie Anguiano) Result Diagram: 06/19/16 0857 06/18/16 0728 Imaging Last Impressions Chest X-Ray 06/08/16 0000 Signed Impressions: Service Date/Time: Friday, June 08, 2016 19:03 - CONCLUSION: The lungs are clear. No evidence of pneumothorax. Len Benz MD Procedures * 05/17I&D done by Dr. Johnson--->> overall area of excision approximately 25 cm x 10 cm vertical, at a depth of 6-8 cm. * 05/26 to OR for repeat I&D (Vangie Anguiano) Assessment and Plan Disease Oriented Problem List: (1) Hypertension, benign (2) Pseudomonas aeruginosa infection (3) Symptomatic anemia (4) Anemia in chronic kidney disease (CKD) (5) End stage renal disease on dialysis (6) Anxiety (7) Asterix[place] (8) Sepsis (9) Diabetes (10) Chronic back pain Symptom Scale: (1) Anxiety 0-10 Scale: Unable to quantify (2) Depression 0-10 Scale: Unable to quantify (3) Malnutrition 0-10 Scale: Unable to quantify (4) Pain 0-10 Scale: 10 Pertinent Non-Medical Issues Psychosocial:Patient , lives at home with her son and significant other. Supported by adult son, sister, sig other, and mother. 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 Originally from [place], lived in [place] for many years on and off. Spiritual:voodoo- family consumer scientist has been in Legal:Patient currently capacitated and able to make her own medical decisions. 5 wishes directive document completed in 2016 names primary HCS as (son) Moy Foley, secondary as (sig other) Robb Toledo. Ethical issues impacting care: Important Contacts Son Moy Foley- [phone] Prognosis This unfortunate patient was admitted with worsening wounds to the abdomen, which have continued to worsen despite aggressive antibiotic and surgical management. She has multiple chronic medical comorbidities including diabetes, cardiovascular disease and end-stage renal failure dependent on dialysis. 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 She has been initiated on treatment with sodium thiosulfate, which to my understanding the impact on overall survival rates is not yet known. Given her overall compromised state she remains high risk for further complications and setbacks. Code Status: Full Code Plan * Legal decision maker: Patient is currently able to make her own decisions. She has documents naming her son is primary decision-maker should she become incapacitated. Her significant other is named as secondary. * Goals: Patient's goals are aggressive, she wishes to continue whatever therapies are recommended to help her overall improvement and long-term prognosis. Hospice has been previously discussed but she is not ready to transition to comfort measures only. She is in agreement today to slightly increase her methadone dosing for better pain control. * CODE STATUS: Full code * SYMPTOMS: --Pain-ongoing chronic back pain related to prior injury, previously well controlled with Majestic use in the home. New or diffuse burning type pain across/ under abdominal tissues she describes as feeling like a "shingles like "pain. Pt had been on long acting morphine, which was discontinue due to lethargy (narcan given) Given her renal insufficiency, methadone or fentanyl would be the better option. Pt is a good candidate for methadone. Start on methadone 2.5 mg PO Q12 hours atc. She has been on this dose for nearly a week, tolerating well. Still w increase PRN use, high pain level of 8/10. open to small increase in methadone. Increased Methadone to 2.5mg PO Q 8 hr , continue to evaluate. Sparing use of prn norco today. Continue prn norco and dilaudid IV. --anxiety- few episodes of anxiety feels "panicked" during hospital course- has 0.125 MG xanax available, appears effective. -- depression- situational, patient with multiple chronic comorbid medical conditions-exploration with patient use of antidepressant for long-term assistance with depression related to long-term disease process. She is currently on Prozac 20 mg daily. Could consider up titration if needed. --Malnutritionchronic. Albumin 1.5. Good appetite, good oral intake for the past few days eating 100% of most meals. Taking Nepro supplements. Continue to evaluate. * Palliative care will continue to follow during hospital course as condition evolves, to assist patient/decision-maker with understanding of medical conditions, weighing benefits/burdens of treatment options, for clarification of goals of treatment. Additionally will assist with any symptoms of palliative concern. (Vangie Anguiano) Attestation To help prompt me to consider important information that might be impacting today's encounter and assessment, information from prior notes written by myself or my colleagues may have been "brought forward" into today's note. My signature on this note, however, is an attestation that I personally performed the exam, history, and/or decision-making noted today, and, unless otherwise indicated, the interactions with patient, family, and staff as well as the review of records all occurred today. I also attest that the listed assessment and stated plan reflect my best clinical judgment today based on the combination of historical information, prior notes, and today's exam/ interactions. When time spent is documented, it refers only to time spent today by the signer, or if indicated, combined time spent today by collaborating physician/nurse practitioner. (Vangie Anguiano) Collaborating MD Comments . Chart reviewed. Cased discussed with palliative care INSOLE AND OUTSOLE PREPARER. Above INSOLE AND OUTSOLE PREPARER note reviewed and I concur. . (Luis Antonio Matias MD) Vangie Anguiano Jun 19, 2016 15:36 Luis Antonio Matias MD August 05, 2016 15:34
--- NOTE | 2016-06-19 19:08 | HHI.NPPN ---
Subjective History of Present Illness 55-year-old female known to me from before with past medical history of diabetes mellitus, history of morbid obesity, end-stage renal disease on hemodialysis three times per week, history of chronic anemia, congestive heart failure, spinal stenosis, chronic back pain, hypothyroidism who came to the hospital with complaint of worsening lower abdominal wound. I was called to see the patient for the management of dialysis. The patient has been on hemodialysis Friday, and Friday. Additional Remarks Patient is alert, no SOB, has mild abd. discomfort. Review of Systems General Constitutional: Fatigue Respiratory Lungs: SOB Cardiovascular Cardiac: GRIFFIN Objective Data Data 06/18/16 06/19/16 19:00 07:00 Intake Total 480 ml 960 ml Output Total 1500 ml Balance -1020 ml 960 ml Intake Oral 480 ml 960 ml Hemodialysis 1500 ml # Voids 0 2 # Bowel Movements 0 0 Vital Signs Date Time Temp Pulse Resp B/P Pulse Ox O2 Delivery O2 Flow Rate FiO2 06/19/16 16:00 98.3 77 18 162/74 95 06/19/16 12:00 98.3 88 20 137/76 96 06/19/16 08:28 83 06/19/16 08:00 98.4 80 20 119/70 93 06/19/16 04:00 98.0 80 20 134/62 97 06/19/16 00:26 80 06/18/16 23:53 98.1 76 20 134/63 92 06/18/16 22:48 18 06/18/16 22:46 18 06/18/16 20:00 97.9 81 20 130/59 94 -: 06/19/16 1512 06/18/16 0728 Physical Exam General Appearance: No Acute Distress, Comfortable Eyes Eye Exam: Pupils Equal Throat Throat Exam: Oral Mucosa [place] & Moist Neck Neck Exam: Neck Supple Pulmonary Resp Exam: Breath Sounds Equal, Crackles, Decreased Bases, Diminished Breath Sounds Gastrointestinal/Abdomen GI Exam: Soft, Non-Tender, Distended Extremeties Extremities Exam: Moderate Edema, Pitting Edema, Dependent Edema Neurologic Neuro Exam: Alert, Awake, Oriented Assessment/Plan Assessment Summary: Anemia of CKD, Hypertension, End Stage Renal Disease Problem List: (1) Anemia in chronic kidney disease (CKD) (2) Open wound of abdomen (3) Chronic stasis dermatitis (4) End stage kidney disease Plan Possible calciphylaxis. On Sodium thiosulfate and Sensipar. On Na Thiosulphate with HD. Continue the wound care. ID is following. 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 Seen by plastic surgery and had debridement of Rt. buttock area. Also has debridement of abd. wound done. Ongoing anemia, on epogen with HD. Skin Biopsy done, no Calciphylaxis noted. HD done yesterday, again has bleeding at abd. wound site. HD in AM, with no Heparin. Now Hgb. dropped, 7.0, transfuse as needed. Problem Qualifiers (1) Open wound of abdomen: Qualified Code: S31.109A - Open wound of abdomen, initial encounter Valentin Jimenez MD Jun 19, 2016 19:08
[2016-06-19] MEDS: ATORVASTATIN 80 MG TAB PO SCH (21:40)
[2016-06-20] VITALS: BP 154/72; PULSE 81; RESP 16; TEMP 98; O2SAT 95
[2016-06-20 00:19] LABS: HEMATOCRIT 22.4 % (35.0-46.0)
[2016-06-20] MEDS: ACETAMINOPHEN/HYDROcodone 325 MG/10 MG TAB PO PRN ×4 (03:55→20:19)
[2016-06-20] MEDS: HEPARIN SODIUM - SQ 10,000 UNITS/ML VIAL SQ SCH ×2 (03:55→15:59)
[2016-06-20 04:00] VITALS: BP 145/69; PULSE 81; RESP 18; TEMP 98.1; O2SAT 95
[2016-06-20] MEDS: METHADONE HCL 10 MG TAB PO SCH ×4 (05:11→23:40)
[2016-06-20] MEDS: LEVOTHYROXINE SODIUM 150 MCG TAB PO SCH (05:24)
[2016-06-20] MEDS: HIGH DOSE INSULIN NOVOLOG SUPPLEMENTAL SCALE SQ SCH ×4 (05:42→20:20)
[2016-06-20 07:25] LABS: AUTOMATED NEUTROPHIL # 9.4 TH/MM3 (1.8-7.7); BASOPHIL # 0.1 TH/MM3 (0-0.2); BASOPHIL % 0.7 % (0.0-2.0); EOSINOPHIL # 0.3 TH/MM3 (0-0.4); EOSINOPHIL % 2.8 % (0.0-4.0); HEMATOCRIT 22.3 % (35.0-46.0); LYMPHOCYTE # 1.3 TH/MM3 (1.0-4.8); MEAN CELL VOLUME 80.7 FL (80.0-100.0); MEAN CORPUSCULAR HEMOGLOBIN 24.7 PG (27.0-34.0); MEAN CORPUSCULAR HGB CONC 30.7 % (32.0-36.0); MONO % 5.6 % (0.0-8.0); NEUT % 79.9 % (16.0-70.0); PLATELET COUNT 422 TH/MM3 (150-450); RED BLOOD COUNT 2.77 MIL/MM3 (4.00-5.30); RED CELL DISTRIBUTION WIDTH 19.1 % (11.6-17.2); WHITE BLOOD COUNT 11.7 TH/MM3 (4.0-11.0)
[2016-06-20 07:41] LABS: HEMO FLAGS AUTO DIFF
[2016-06-20 07:44] LABS: BICARBONATE 28.7 MEQ/L (21.0-32.0); POTASSIUM 4.9 MEQ/L (3.5-5.1)
[2016-06-20 08:00] VITALS: BP 117/76; PULSE 79; RESP 18; TEMP 98.2; O2SAT 98
[2016-06-20 08:30] VITALS: PULSE 81
[2016-06-20 08:39] LABS: BANDS 11 % (0-6); EOSINOPHILS 2 % (0-4); MYELOCYTES 1 % (0-0); NEUTROPHIL # MANUAL DIFF 9.1 TH/MM3 (1.8-7.7); PLATELET ESTIMATE SMEAR NORMAL (NORMAL); PLATELET MORPHOLOGY NORMAL (NORMAL); POLYS (SEG NEUTROPHILS) 66 % (16-70); SCAN/DIFF FINAL DIFF MANUAL; WBC DIFF SAMPLE 100
[2016-06-20] MEDS: SEVELAMER CARBONATE 800 MG TAB PO SCH ×3 (09:00→19:40)
[2016-06-20] MEDS: POLYETHYLENE GLYCOL 17 GM PKG PO SCH (09:00)
[2016-06-20] MEDS: INSULIN DETEMIR 100 UNITS/ML VIAL SQ SCH ×2 (09:00→20:20)
[2016-06-20] MEDS: CINACALCET HYDROCHLORIDE 30 MG TAB PO SCH (09:00)
[2016-06-20] MEDS: DOCUSATE SODIUM 50 MG/SENNA 8.6 MG TAB PO SCH ×2 (09:00→20:19)
[2016-06-20] MEDS: ASPIRIN EC 81 MG TABEC PO SCH (09:00)
[2016-06-20] MEDS: FLUoxetine HCL 20 MG CAP PO SCH (09:00)
[2016-06-20] MEDS: CALCITRIOL 0.25 MCG CAP PO SCH (09:00)
[2016-06-20] MEDS: COLLAGENASE OINT 30 GM TUBE EXT SCH (09:00)
[2016-06-20] MEDS: SODIUM CHLORIDE 0.9% FLUSH 5 ML FLUSH FLUSH SCH ×2 (09:00→21:00)
[2016-06-20] MEDS: GABAPENTIN 100 MG CAP PO SCH ×2 (09:00→20:19)
[2016-06-20] MEDS: SODIUM HYPOCHLORITE 0.25% 500 ML BTL TOPICAL SCH (09:00)
[2016-06-20 12:00] VITALS: BP_SYST 108; BP_SYST 180; BP_DIAS 57; BP_DIAS 80; PULSE 78; PULSE 84; RESP 18; RESP 20; TEMP 98.1; TEMP 98.4; O2SAT 100; O2SAT 94
--- NOTE | 2016-06-20 18:28 | HHI.PR ---
Subjective Remarks Patient seen in dialysis. She states her abdominal pain and right hip pain are controlled today. Objective Vitals Vital Signs Date Time Temp Pulse Resp B/P Pulse Ox O2 Delivery O2 Flow Rate FiO2 06/20/16 12:00 98.4 84 18 180/80 100 06/20/16 12:00 98.4 84 20 180/80 100 06/20/16 08:30 81 06/20/16 08:00 98.2 79 18 117/76 98 06/20/16 04:00 98.1 81 18 145/69 95 06/20/16 00:00 98.0 81 16 154/72 95 06/19/16 20:00 98.3 82 18 145/66 96 I/O 06/19/16 06/19/16 06/19/16 06/20/16 06/20/16 06/20/16 07:00 15:00 23:00 07:00 15:00 23:00 Intake Total 480 ml 2 ml 2 ml 240 ml Balance 480 ml 2 ml 2 ml 240 ml Intake Oral 480 ml 240 ml IV Total 2 ml 2 ml # Voids 1 2 1 # Bowel Movements 0 0 Result Diagram: 06/20/16 0549 06/20/16 0549 Objective Remarks GENERAL: Pleasant, morbidly obese middle-age female patient. SKIN: Warm and dry. HEAD: Normocephalic. EYES: No scleral icterus. No injection or drainage. NECK: Supple, trachea midline. No JVD or lymphadenopathy. CARDIOVASCULAR: Regular rate and rhythm without murmurs, gallops, or rubs. RESPIRATORY: Breath sounds equal bilaterally. No accessory muscle use. GASTROINTESTINAL: Obese over hanging pannus. Wound VAC in place over lower abdomen. Abdomen soft, non-tender, nondistended. EXTREMITIES: Chronic pedal edema. NEUROLOGICAL: Awake, alert, and oriented x 3. Non-focal. Procedures I&D Debridement Skin biopsy on 06/06 A/P Problem List: (1) Open wound of abdomen ICD Code: S31.109A Status: Acute (2) Type II diabetes mellitus with neurological manifestations, uncontrolled ICD Code: E11.49 Status: Chronic (3) End stage renal disease on dialysis ICD Code: N18.6 Status: Chronic (4) Hypertension, benign ICD Code: I10 Status: Chronic (5) Constipation ICD Code: K59.00 Status: Acute Assessment and Plan 1. Sepsis secondary to abdominal pannus wound/cellulitis: Sepsis is improved. Appreciate general surgery and plastic surgery recommendations. Antibiotics discontinued by infectious disease. Status post incision and drainage on . Continue wound care, pain control. Biopsy negative for calciphylaxis. 2. Morbid obesity: Patient has been counseled. 3. Hypertension: Blood pressure is well controlled. 4. Diabetes mellitus: Monitor Accu-Cheks and cover with sliding scale insulin. 5. Hyperlipidemia: Continue home medications. 6. End-stage renal disease: On hemodialysis Friday, , Friday. Appreciate nephrology management. 7. Chronic low back pain, chronic pain syndrome: Continue pain control. Appreciate palliative care recommendations. Methadone increased yesterday. 8. Electrolyte abnormalities: Appreciate nephrology recommendations. 9. Anemia of chronic disease worsened with acute blood loss anemia: Status post transfusion on 06/10/16 as well as erythropoietin by nephrology. Being transfused again today, repeat H/H in a.m. 10. Acute metabolic encephalopathy: Improved. Likely secondary to morphine. 11. DVT prophylaxis: Subcutaneous heparin. 12. CODE STATUS: Full code. 13. Constipation: Appreciate GI recommendations. Continue bowel regimen. 14. Bleeding from wound: The patient has had significant bleeding from the wound on 3 different occasions. Wound care nurses have applied pressure and Gelfoam. Plastic surgery has been notified. Patient may need cautery. Plastic surgery has recommended transfer to a tertiary care center for more definitive surgical treatment including panniculectomy. Problem Qualifiers (1) Open wound of abdomen: Qualified Code: S31.109A - Open wound of abdomen, initial encounter Kylee Han MD Jun 20, 2016 18:28 Exacerbated by wounds. - pain control, with a bowel regimen. DVT prophylaxis with Heparin every 12 hours. Problem Qualifiers (1) Open wound of abdomen: Qualified Code: S31.109A - Open wound of abdomen, initial encounter Kylee Han MD Jun 20, 2016 18:28
--- NOTE | 2016-06-20 18:36 | HHI.NPPN ---
Subjective History of Present Illness 55-year-old female known to me from before with past medical history of diabetes mellitus, history of morbid obesity, end-stage renal disease on hemodialysis three times per week, history of chronic anemia, congestive heart failure, spinal stenosis, chronic back pain, hypothyroidism who came to the hospital with complaint of worsening lower abdominal wound. I was called to see the patient for the management of dialysis. The patient has been on hemodialysis Friday, and Friday. Additional Remarks Patient is alert, no SOB, abd. pain is better, had BM today. Review of Systems General Constitutional: Fatigue Respiratory Lungs: SOB Cardiovascular Cardiac: GRIFFIN Objective Data Data 06/19/16 06/20/16 19:00 07:00 Intake Total 2 ml 242 ml Balance 2 ml 242 ml Intake Oral 240 ml IV Total 2 ml 2 ml # Voids 2 1 # Bowel Movements 0 Vital Signs Date Time Temp Pulse Resp B/P Pulse Ox O2 Delivery O2 Flow Rate FiO2 06/20/16 12:00 98.4 84 18 180/80 100 06/20/16 12:00 98.4 84 20 180/80 100 06/20/16 08:30 81 06/20/16 08:00 98.2 79 18 117/76 98 06/20/16 04:00 98.1 81 18 145/69 95 06/20/16 00:00 98.0 81 16 154/72 95 06/19/16 20:00 98.3 82 18 145/66 96 -: 06/20/16 0549 06/20/16 0549 Physical Exam General Appearance: No Acute Distress, Comfortable Eyes Eye Exam: Pupils Equal Throat Throat Exam: Oral Mucosa [place] & Moist Neck Neck Exam: Neck Supple Pulmonary Resp Exam: Breath Sounds Equal, Crackles, Decreased Bases, Diminished Breath Sounds Gastrointestinal/Abdomen GI Exam: Soft, Non-Tender, Distended Extremeties Extremities Exam: Moderate Edema, Pitting Edema, Dependent Edema Neurologic Neuro Exam: Alert, Awake, Oriented Assessment/Plan Assessment Summary: Anemia of CKD, Hypertension, End Stage Renal Disease Problem List: (1) Anemia in chronic kidney disease (CKD) (2) Open wound of abdomen (3) Chronic stasis dermatitis (4) End stage kidney disease Plan Possible calciphylaxis. On Sodium thiosulfate and Sensipar. On Na Thiosulphate with HD. Continue the wound care. ID is following. 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 Seen by plastic surgery and had debridement of Rt. buttock area. Also has debridement of abd. wound done. Ongoing anemia, on epogen with HD. Skin Biopsy done, no Calciphylaxis noted. HD to be done today. Hgb. dropped and will need transfusion. Problem Qualifiers (1) Open wound of abdomen: Qualified Code: S31.109A - Open wound of abdomen, initial encounter Valentin Jimenez MD Jun 20, 2016 18:36
--- NOTE | 2016-06-20 19:56 | HHI.HCPN ---
Reason for visit a. To assist with evaluation and management of symptoms including: follow up on wound pain, anxiety, depression b. To assist medical decision maker(s) with: better understanding of current medical conditions; weighing benefits/burdens of medical treatment options; making medical treatment decisions. Subjective/Interval History Pt seen today to follow-up on comfort, pain level, as well as goals. Recent increase in Methadone to 2.5mg TID. Stable, continues to have some anemia, H&H down to 7.5/24.5, ?Acute blood loss related to significant sanguinous range from dressing. Will team discussing with wound management team, possible transfer to tertiary care center for definitive surgical management of large abdominal wounds. Hemodynamics stable. Nursing continues to report episodes of moderate sanguinous drainage, wound VAC remains off, dressing with absorbent dressings, bleeding seems to stabilize when pressure held, dressing applied. Now on methadone 2.5 mg 3 times a day, this was increased from twice daily yesterday. Has [place], hydromorphone prn. Patient has required 2 doses of [place] today, significantly higher doses yesterday. Today patient seen in room, son bedside. Seen with (EARL Daniel). She is alert, oriented, pleasant. Explore with her current conditions, treatment plans in place. She is aware of possible transfer to tertiary care center. Explore with her limitations of current treatments and physicians exploring option for further management a tertiary facility. Gen. review of transfer process, and the patient wants needs were metastases could be transferred back to this facility. Advised that this was still working process and could be several days before she is actually transferred. She and her son appear to have good understanding, goals remain aggressive she wishes to continue to pursue whatever measures are necessary to help her get better. ROS essentially negative except for fatigue/tiredness which she attributes to blood loss, she feels she has increased pain to the right side of her abdominal wound today which is new for her, she feels is secondary to pressure being held during episodes of bleeding. She has not had prn recently advised she could request dose, nursing notified by patient at this time. Dressings to abdomen currently in place clean and dry did not remove for exam. Family/friend interactions Discussed with son, who is present. Advance Directives Living Will: Copy in medical record Advance Directive Specifics Date completed: 09/2015 Health Care Surrogate(s): Primary surrogate named as son Moy Foley, secondary Robb Toledo . Objective Vital Signs Date Time Temp Pulse Resp B/P Pulse Ox O2 Delivery O2 Flow Rate FiO2 06/20/16 12:00 98.4 84 18 180/80 100 06/20/16 12:00 98.4 84 20 180/80 100 06/20/16 08:30 81 06/20/16 08:00 98.2 79 18 117/76 98 06/20/16 04:00 98.1 81 18 145/69 95 06/20/16 00:00 98.0 81 16 154/72 95 06/19/16 20:00 98.3 82 18 145/66 96 Intake & Output 06/20/16 06/20/16 07:00 19:00 Intake Total 242 ml Output Total 2000 ml Balance 242 ml -2000 ml Intake Oral 240 ml IV Total 2 ml Hemodialysis 2000 ml # Voids 1 Physical Exam CONSTITUTIONAL/GENERAL: Obese, chronically ill-appearing female, pleasant, alert oriented TUBES/LINES/DRAINS: Dialysis access right upper chest nearing jugular. PIV RUE. SKIN: No jaundice, rashes, or lesions. Bilateral lower extremities with significant hyperkeratotic skin thickening . Skin temperature warm. CARDIOVASCULAR: Heart sounds regular, heart sounds distant. 2/6 systolic ejection murmur. Significant lymphedema to lower extremities I'm unable to palpate pedal pulses, palpable radial pulses RESPIRATORY/CHEST: Symmetric, unlabored respirations on room air. Clear to auscultation. Decreased air movement throughout. GASTROINTESTINAL: Abdomen obese, areas of firmness. + tender. Bowel sounds present. No palpable masses- somewhat limited abdominal exam. several large wounds noted : Right Abdomen w dressing intact, rt hip with dressing intact. Unable to visualize 2/2 to dressings. Reported wound to buttocks I did not visualize. NEUROLOGICAL: Awake and alert, oriented x3 appropriate. appears to have good insight. Moves all 4 extremities with generalized weakness. PSYCHIATRIC: anxious at times. Diagnostic Tests Laboratory Laboratory Tests Test 06/18/16 06/18/16 06/19/16 06/19/16 07:28 16:16 08:57 15:12 White Blood Count 12.5 TH/MM3 13.8 TH/MM3 (4.0-11.0) (4.0-11.0) Red Blood Count 3.43 MIL/MM3 3.05 MIL/MM3 (4.00-5.30) (4.00-5.30) Hemoglobin 8.5 GM/DL 8.1 GM/DL 7.5 GM/DL 7.0 GM/DL (11.6-15.3) (11.6-15.3) (11.6-15.3) (11.6-15.3) Hematocrit 27.7 % 25.1 % 24.5 % 21.8 % (35.0-46.0) (35.0-46.0) (35.0-46.0) (35.0-46.0) Mean Corpuscular Volume 80.9 FL 80.4 FL (80.0-100.0) (80.0-100.0) Mean Corpuscular Hemoglobin 24.8 PG 24.7 PG (27.0-34.0) (27.0-34.0) Mean Corpuscular Hemoglobin 30.7 % 30.7 % Concent (32.0-36.0) (32.0-36.0) Red Cell Distribution Width 19.2 % 19.1 % (11.6-17.2) (11.6-17.2) Platelet Count 493 TH/MM3 437 TH/MM3 (150-450) (150-450) Mean Platelet Volume 7.0 FL 6.9 FL (7.0-11.0) (7.0-11.0) Neutrophils (%) (Auto) 74.9 % 80.9 % (16.0-70.0) (16.0-70.0) Lymphocytes (%) (Auto) 14.7 % 10.9 % (9.0-44.0) (9.0-44.0) Monocytes (%) (Auto) 5.6 % (0.0-8.0) 5.1 % (0.0-8.0) Eosinophils (%) (Auto) 3.9 % (0.0-4.0) 2.5 % (0.0-4.0) Basophils (%) (Auto) 0.9 % (0.0-2.0) 0.6 % (0.0-2.0) Neutrophils # (Auto) 9.3 TH/MM3 11.1 TH/MM3 (1.8-7.7) (1.8-7.7) Lymphocytes # (Auto) 1.8 TH/MM3 1.5 TH/MM3 (1.0-4.8) (1.0-4.8) Monocytes # (Auto) 0.7 TH/MM3 0.7 TH/MM3 (0-0.9) (0-0.9) Eosinophils # (Auto) 0.5 TH/MM3 0.3 TH/MM3 (0-0.4) (0-0.4) Basophils # (Auto) 0.1 TH/MM3 0.1 TH/MM3 (0-0.2) (0-0.2) CBC Comment AUTO DIFF AUTO DIFF Differential Comment AUTO DIFF FINAL DIFF CONFIRMED MANUAL Toxic Vacuolation PRESENT (NONE SEEN) Platelet Estimate HIGH (NORMAL) HIGH (NORMAL) Platelet Morphology Comment NORMAL NORMAL (NORMAL) (NORMAL) Crenated Cell 3+ (NORMAL) 3+ (NORMAL) Sodium Level 132 MEQ/L (136-145) Potassium Level 4.1 MEQ/L (3.5-5.1) Chloride Level 92 MEQ/L (98-107) Carbon Dioxide Level 26.6 MEQ/L (21.0-32.0) Anion Gap 13 MEQ/L (5-15) Blood Urea Nitrogen 51 MG/DL (7-18) Creatinine 6.33 MG/DL (0.50-1.00) Estimat Glomerular Filtration 7 ML/MIN (>89) Rate Random Glucose 100 MG/DL (74-106) Calcium Level 8.7 MG/DL (8.5-10.1) Differential Total Cells 100 Counted Neutrophils % (Manual) 61 % (16-70) Band Neutrophils % 18 % (0-6) Lymphocytes % 10 % (9-44) Monocytes % 6 % (0-8) Eosinophils % 2 % (0-4) Basophils % 2 % (0-2) Neutrophils # (Manual) 11.0 TH/MM3 (1.8-7.7) Myelocytes 1 % (0-0) Test 06/19/16 06/20/16 06/20/16 23:57 05:49 09:11 Hemoglobin 7.0 GM/DL 6.9 GM/DL (11.6-15.3) (11.6-15.3) Hematocrit 22.4 % 22.3 % (35.0-46.0) (35.0-46.0) White Blood Count 11.7 TH/MM3 (4.0-11.0) Red Blood Count 2.77 MIL/MM3 (4.00-5.30) Mean Corpuscular Volume 80.7 FL (80.0-100.0) Mean Corpuscular Hemoglobin 24.7 PG (27.0-34.0) Mean Corpuscular Hemoglobin 30.7 % Concent (32.0-36.0) Red Cell Distribution Width 19.1 % (11.6-17.2) Platelet Count 422 TH/MM3 (150-450) Mean Platelet Volume 6.6 FL (7.0-11.0) Neutrophils (%) (Auto) 79.9 % (16.0-70.0) Lymphocytes (%) (Auto) 11.0 % (9.0-44.0) Monocytes (%) (Auto) 5.6 % (0.0-8.0) Eosinophils (%) (Auto) 2.8 % (0.0-4.0) Basophils (%) (Auto) 0.7 % (0.0-2.0) Neutrophils # (Auto) 9.4 TH/MM3 (1.8-7.7) Lymphocytes # (Auto) 1.3 TH/MM3 (1.0-4.8) Monocytes # (Auto) 0.7 TH/MM3 (0-0.9) Eosinophils # (Auto) 0.3 TH/MM3 (0-0.4) Basophils # (Auto) 0.1 TH/MM3 (0-0.2) CBC Comment AUTO DIFF Differential Total Cells 100 Counted Neutrophils % (Manual) 66 % (16-70) Band Neutrophils % 11 % (0-6) Lymphocytes % 14 % (9-44) Monocytes % 6 % (0-8) Eosinophils % 2 % (0-4) Neutrophils # (Manual) 9.1 TH/MM3 (1.8-7.7) Myelocytes 1 % (0-0) Differential Comment FINAL DIFF MANUAL Platelet Estimate NORMAL (NORMAL) Platelet Morphology Comment NORMAL (NORMAL) Sodium Level 134 MEQ/L (136-145) Potassium Level 4.9 MEQ/L (3.5-5.1) Chloride Level 93 MEQ/L (98-107) Carbon Dioxide Level 28.7 MEQ/L (21.0-32.0) Anion Gap 12 MEQ/L (5-15) Blood Urea Nitrogen 49 MG/DL (7-18) Creatinine 6.23 MG/DL (0.50-1.00) Estimat Glomerular Filtration 7 ML/MIN (>89) Rate Random Glucose 96 MG/DL (74-106) Calcium Level 8.2 MG/DL (8.5-10.1) Blood Type O POSITIVE Antibody Screen NEGATIVE Crossmatch Leukocyte-Reduced Red Blood Cells Blood Bank Comment Result Diagram: 06/20/16 0549 06/20/16 0549 Procedures * 05/17I&D done by Dr. Johnson--->> overall area of excision approximately 25 cm x 10 cm vertical, at a depth of 6-8 cm. * 05/26 to OR for repeat I&D Assessment and Plan Disease Oriented Problem List: (1) Hypertension, benign (2) Pseudomonas aeruginosa infection (3) Symptomatic anemia (4) Anemia in chronic kidney disease (CKD) (5) End stage renal disease on dialysis (6) Anxiety (7) [place] (8) Sepsis (9) Diabetes (10) Chronic back pain Symptom Scale: (1) Anxiety 0-10 Scale: Unable to quantify (2) Depression 0-10 Scale: Unable to quantify (3) Malnutrition 0-10 Scale: Unable to quantify (4) Pain 0-10 Scale: 10 Pertinent Non-Medical Issues Psychosocial:Patient , lives at home with her son and significant other. Supported by adult son, sister, sig other, and mother. 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 Originally from [place], lived in [place] for many years on and off. Spiritual:yazdanism- charge master analyst has been in Legal:Patient currently capacitated and able to make her own medical decisions. 5 wishes directive document completed in 2016 names primary HCS as (son) Moy Foley, secondary as (sig other) Robb Toledo. Ethical issues impacting care: Important Contacts Son Moy Foley- [phone] Prognosis This unfortunate patient was admitted with worsening wounds to the abdomen, which have continued to worsen despite aggressive antibiotic and surgical management. She has multiple chronic medical comorbidities including diabetes, cardiovascular disease and end-stage renal failure dependent on dialysis. 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 She has been initiated on treatment with sodium thiosulfate, which to my understanding the impact on overall survival rates is not yet known. Given her overall compromised state she remains high risk for further complications and setbacks. Evaluation of her case is underway by both [facility], which is the patient's first choice, and [facility] for other treatment. Her pain has been ranging from 7-10 and she has been receiving PRN [place] in addition to scheduled Methadone 2.5 mg Q8H. Her Methadone will be increased to 2.5 mg Q6H for better control. Code Status: Full Code Plan * Legal decision maker: Patient is currently able to make her own decisions. She has documents naming her son is primary decision-maker should she become incapacitated. Her significant other is named as secondary. * Goals: Patient's goals are aggressive, she wishes to continue whatever therapies are recommended to help her overall improvement and long-term prognosis. Hospice has been previously discussed but she is not ready to transition to comfort measures only. She is in agreement today to slightly increase her methadone dosing for better pain control. * CODE STATUS: Full code * SYMPTOMS: --Pain-ongoing chronic back pain related to prior injury, previously well controlled with [place] use in the home. New or diffuse burning type pain across/ under abdominal tissues she describes as feeling like a "shingles like "pain. Pt had been on long acting morphine, which was discontinue due to lethargy (narcan given) Given her renal insufficiency, methadone or fentanyl would be the better option. Pt is a good candidate for methadone. Start on methadone 2.5 mg PO Q12 hours atc. She has been on this dose for nearly a week, tolerating well. Still w increase PRN use, high pain level of 8/10. open to small increase in methadone. Increased Methadone to 2.5mg PO Q 8 hr , continue to evaluate. Sparing use of prn norco today. Continue prn norco and dilaudid IV. --anxiety- few episodes of anxiety feels "panicked" during hospital course- has 0.125 MG xanax available, appears effective. -- depression- situational, patient with multiple chronic comorbid medical conditions-exploration with patient use of antidepressant for long-term assistance with depression related to long-term disease process. She is currently on Prozac 20 mg daily. Could consider up titration if needed. --Malnutritionchronic. Albumin 1.5. Good appetite, good oral intake for the past few days eating 100% of most meals. Taking Nepro supplements. Continue to evaluate. * Palliative care will continue to follow during hospital course as condition evolves, to assist patient/decision-maker with understanding of medical conditions, weighing benefits/burdens of treatment options, for clarification of goals of treatment. Additionally will assist with any symptoms of palliative concern. Criss Owens. SOFTWARE TOOLS ENGINEER Jun 20, 2016 19:56
[2016-06-20 20:00] VITALS: BP 153/68; PULSE 83; PULSE 84; RESP 18; TEMP 98.6; O2SAT 98
[2016-06-20] MEDS: ATORVASTATIN 80 MG TAB PO SCH (20:19)
[2016-06-21] VITALS: BP 143/65; PULSE 86; RESP 18; TEMP 98.7; O2SAT 95
[2016-06-21] MEDS: HEPARIN SODIUM - SQ 10,000 UNITS/ML VIAL SQ SCH ×2 (03:42→16:27)
[2016-06-21 04:00] VITALS: BP 143/61; PULSE 77; RESP 16; TEMP 98.2; O2SAT 95
[2016-06-21] MEDS: METHADONE HCL 10 MG TAB PO SCH ×4 (05:37→23:37)
[2016-06-21] MEDS: LEVOTHYROXINE SODIUM 150 MCG TAB PO SCH (05:38)
[2016-06-21] MEDS: HIGH DOSE INSULIN NOVOLOG SUPPLEMENTAL SCALE SQ SCH ×4 (05:38→21:00)
[2016-06-21 07:50] LABS: AUTOMATED NEUTROPHIL # 9.2 TH/MM3 (1.8-7.7); BASOPHIL # 0.1 TH/MM3 (0-0.2); BASOPHIL % 0.8 % (0.0-2.0); EOSINOPHIL # 0.3 TH/MM3 (0-0.4); EOSINOPHIL % 2.7 % (0.0-4.0); HEMATOCRIT 26.2 % (35.0-46.0); HEMO FLAGS DIFF FINAL; LYMPH % 13.8 % (9.0-44.0); LYMPHOCYTE # 1.7 TH/MM3 (1.0-4.8); MEAN CELL VOLUME 80.6 FL (80.0-100.0); MEAN CORPUSCULAR HEMOGLOBIN 26.4 PG (27.0-34.0); MEAN CORPUSCULAR HGB CONC 32.8 % (32.0-36.0); MONO % 6.3 % (0.0-8.0); NEUT % 76.4 % (16.0-70.0); PLATELET COUNT 431 TH/MM3 (150-450); RED BLOOD COUNT 3.25 MIL/MM3 (4.00-5.30); RED CELL DISTRIBUTION WIDTH 18.2 % (11.6-17.2); WHITE BLOOD COUNT 12.1 TH/MM3 (4.0-11.0)
[2016-06-21 08:00] VITALS: BP_SYST 164; BP_SYST 178; BP_DIAS 65; BP_DIAS 80; PULSE 88; PULSE 89; PULSE 98; RESP 20; TEMP 98.3; O2SAT 94; O2SAT 96
[2016-06-21 08:19] LABS: BICARBONATE 30.1 MEQ/L (21.0-32.0); POTASSIUM 3.9 MEQ/L (3.5-5.1)
[2016-06-21] MEDS: CALCITRIOL 0.25 MCG CAP PO SCH (08:49)
[2016-06-21] MEDS: CINACALCET HYDROCHLORIDE 30 MG TAB PO SCH (08:49)
[2016-06-21] MEDS: FLUoxetine HCL 20 MG CAP PO SCH (08:50)
[2016-06-21] MEDS: POLYETHYLENE GLYCOL 17 GM PKG PO SCH (08:50)
[2016-06-21] MEDS: SEVELAMER CARBONATE 800 MG TAB PO SCH ×3 (08:50→19:27)
[2016-06-21] MEDS: GABAPENTIN 100 MG CAP PO SCH ×2 (08:50→20:44)
[2016-06-21] MEDS: ASPIRIN EC 81 MG TABEC PO SCH (08:50)
[2016-06-21] MEDS: DOCUSATE SODIUM 50 MG/SENNA 8.6 MG TAB PO SCH ×2 (08:50→20:45)
[2016-06-21] MEDS: INSULIN DETEMIR 100 UNITS/ML VIAL SQ SCH ×2 (08:51→21:00)
[2016-06-21] MEDS: SODIUM HYPOCHLORITE 0.25% 500 ML BTL TOPICAL SCH (08:54)
[2016-06-21] MEDS: COLLAGENASE OINT 30 GM TUBE EXT SCH (08:55)
[2016-06-21] MEDS: ACETAMINOPHEN/HYDROcodone 325 MG/10 MG TAB PO PRN ×4 (08:58→20:44)
[2016-06-21] MEDS: SODIUM CHLORIDE 0.9% FLUSH 5 ML FLUSH FLUSH SCH ×2 (09:00→20:51)
--- NOTE | 2016-06-21 11:57 | HHI.NPPN ---
Subjective History of Present Illness 55-year-old female known to me from before with past medical history of diabetes mellitus, history of morbid obesity, end-stage renal disease on hemodialysis three times per week, history of chronic anemia, congestive heart failure, spinal stenosis, chronic back pain, hypothyroidism who came to the hospital with complaint of worsening lower abdominal wound. I was called to see the patient for the management of dialysis. The patient has been on hemodialysis Friday, and Friday. Additional Remarks Patient is alert, no SOB, has mild abd. pain. Review of Systems General Constitutional: Fatigue Respiratory Lungs: SOB Cardiovascular Cardiac: GRIFFIN Objective Data Data 06/20/16 06/21/16 19:00 07:00 Intake Total 480 ml Output Total 2000 ml Balance -2000 ml 480 ml Intake Oral 480 ml Hemodialysis 2000 ml # Voids 0 # Bowel Movements 0 Vital Signs Date Time Temp Pulse Resp B/P Pulse Ox O2 Delivery O2 Flow Rate FiO2 06/21/16 08:00 88 06/21/16 08:00 98.3 98 20 178/80 96 06/21/16 04:00 98.2 77 16 143/61 95 06/21/16 00:00 98.7 86 18 143/65 95 06/20/16 20:00 98.6 83 18 153/68 98 06/20/16 20:00 84 06/20/16 12:00 98.4 84 18 180/80 100 06/20/16 12:00 98.4 84 20 180/80 100 -: 06/21/16 0645 06/21/16 0645 Physical Exam General Appearance: No Acute Distress, Comfortable Eyes Eye Exam: Pupils Equal Throat Throat Exam: Oral Mucosa [place] & Moist Neck Neck Exam: Neck Supple Pulmonary Resp Exam: Breath Sounds Equal, Crackles, Decreased Bases, Diminished Breath Sounds Gastrointestinal/Abdomen GI Exam: Soft, Non-Tender, Distended Extremeties Extremities Exam: Moderate Edema, Pitting Edema, Dependent Edema Neurologic Neuro Exam: Alert, Awake, Oriented Assessment/Plan Assessment Summary: Anemia of CKD, Hypertension, End Stage Renal Disease Problem List: (1) Anemia in chronic kidney disease (CKD) (2) Open wound of abdomen (3) Chronic stasis dermatitis (4) End stage kidney disease Plan Continue the wound care. ID is following. 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 Seen by plastic surgery and had debridement of Rt. buttock area. Also has debridement of abd. wound done. Ongoing anemia, on epogen with HD. Skin Biopsy done, no Calciphylaxis noted. HD to be done yesterday. Follow Hgb and transfuse as needed. BP is stable, HD in AM. Problem Qualifiers (1) Open wound of abdomen: Qualified Code: S31.109A - Open wound of abdomen, initial encounter Valentin Jimenez MD Jun 21, 2016 11:56 Valentin Jimenez MD Jun 21, 2016 11:56
[2016-06-21 12:00] VITALS: BP_SYST 136; BP_SYST 165; BP_DIAS 63; BP_DIAS 72; PULSE 93; PULSE 96; RESP 20; RESP 22; TEMP 97.6; TEMP 98.6; O2SAT 97
[2016-06-21 16:00] VITALS: BP 158/71; PULSE 102; RESP 20; TEMP 98.1; O2SAT 98
--- NOTE | 2016-06-21 16:28 | HHI.PR ---
Subjective Remarks Follow up for sepsis secondary to abdominal pannus wound/cellulitis. Patient seen and examined by Dr. Han and myself. Spoke with patient at length regarding the cancel of transfer to [facility]. Patient agreeable with plan, and overall accepting the decision. Tolerating diet, denies nausea and vomiting. Attempting to add more protein to improve wound healing, requesting Enrico packs with each meal. Pain controlled today. Denies any shortness of breath, fever or chills. Objective Vitals Vital Signs Date Time Temp Pulse Resp B/P Pulse Ox O2 Delivery O2 Flow Rate FiO2 06/21/16 12:00 98.6 96 20 165/72 97 06/21/16 08:00 88 06/21/16 08:00 98.3 98 20 178/80 96 06/21/16 04:00 98.2 77 16 143/61 95 06/21/16 00:00 98.7 86 18 143/65 95 06/20/16 20:00 98.6 83 18 153/68 98 06/20/16 20:00 84 I/O 06/20/16 06/20/16 06/20/16 06/21/16 06/21/16 06/21/16 07:00 15:00 23:00 07:00 15:00 23:00 Intake Total 240 ml 480 ml Output Total 2000 ml Balance 240 ml -2000 ml 480 ml Intake Oral 240 ml 480 ml Hemodialysis 2000 ml # Voids 1 0 # Bowel Movements 0 Result Diagram: 06/21/16 0645 06/21/16 0645 Imaging Last Impressions Chest X-Ray 06/08/16 0000 Signed Impressions: Service Date/Time: Wednesday, June 08, 2016 19:03 - CONCLUSION: The lungs are clear. No evidence of pneumothorax. Len Benz MD Objective Remarks GENERAL: Pleasant, morbidly obese middle-age female patient in [facility]. SKIN: Warm and dry. HEAD: Normocephalic. EYES: No scleral icterus. No injection or drainage. NECK: Supple, trachea midline. No JVD or lymphadenopathy. CARDIOVASCULAR: Regular rate and rhythm without murmurs, gallops, or rubs. RESPIRATORY: Breath sounds equal bilaterally. No accessory muscle use. GASTROINTESTINAL: Obese over hanging pannus. Wound VAC in place over lower abdomen. Abdomen soft, non-tender, nondistended. EXTREMITIES: Chronic pedal edema. NEUROLOGICAL: Awake, alert, and oriented x 3. Non-focal. Procedures I&D Debridement Skin biopsy on 06/06 A/P Problem List: (1) Open wound of abdomen ICD Code: S31.109A Status: Acute (2) Type II diabetes mellitus with neurological manifestations, uncontrolled ICD Code: E11.49 Status: Chronic (3) End stage renal disease on dialysis ICD Code: N18.6 Status: Chronic (4) Hypertension, benign ICD Code: I10 Status: Chronic (5) Constipation ICD Code: K59.00 Status: Acute Assessment and Plan This is a pleasant 55 y/o Female who came to Emergency room as we know she has Hypertension, DM II, Hyperlipidemia, Chronic back pain, ESRD on Friday, and Friday, presents to the emergency department on 05/14/16 for evaluation of worsening abdominal wound. 1. Sepsis secondary to abdominal pannus wound/cellulitis, sepsis improved. - Appreciate general surgery and plastic surgery recommendations. - Antibiotics discontinued by infectious disease. Status post incision and drainage on 05/26/16. - Continue wound care, pain control. - Biopsy negative for calciphylaxis. - WBC today 12.1. CBC in am. 2. End-stage renal disease with electrolyte abnormalities: On hemodialysis Friday, , Friday. Nephrology following, appreciate recommendations. BMP in am. 3. Chronic low back pain, chronic pain syndrome: Continue pain medications. Palliative care following, appreciate input. Continue methadone. 4. Anemia of chronic disease worsened with acute blood loss anemia: S/p transfusion on 06/10/16 as well as erythropoietin by nephrology. Another PRBC transfusion yesterday, hemoglobin now 8.6. Closely monitor. CBC in am. 5. Constipation: Last BM today. Continue scheduled bowel regimen. 6. Acute metabolic encephalopathy, improved: Likely secondary to morphine. 7. Bleeding from wound: The patient has had significant bleeding from the wound on 3 different occasions. Wound care nurses have applied pressure and Gelfoam. Plastic surgery aware. Patient may need cautery. Plastic surgery recommended transfer to [facility], [facility] declined felt patient could be treated adequately here. Patient prefers to stay at [facility]. I (Dr. Han) d/w wound care nurse today, no further bleeding however wounds have NOT improved. Will repeat albumin , check prealbumin, improve nutrition. 8. Morbid obesity: Patient has been counseled. 9. Hypertension: Blood pressure is fairly well-controlled, clonidine PRN. 10. Diabetes mellitus: Monitor Accu-Cheks and cover with sliding scale insulin, fairly well controlled. 11. Hyperlipidemia: Continue home medications. 12. Malnutrition with poor wound healing: Check prealbumin and albumin levels today. Assure that patient receives Enrico packs TID with each meal. 13. DVT prophylaxis: Subcutaneous heparin. CODE STATUS: Full code. Written by Anjelica Farley, acting as scribe for Dr. Han on 06/21/16 at 16: 09. This note was transcribed by scribe Anjelica Cabrera. I, Dr. Kylee Han personally performed the history, physical exam, and medical decision making; and confirmed the accuracy of the information in the transcribed note. Authenticated by Dr. Kylee Han on 06/21/16 at 22:23. Problem Qualifiers (1) Open wound of abdomen: Qualified Code: S31.109A - Open wound of abdomen, initial encounter Anjelica Farley Jun 21, 2016 16:28 Kylee Han MD Jun 21, 2016 22:24
[2016-06-21 20:00] VITALS: BP 191/83; PULSE 79; RESP 18; TEMP 98.3; O2SAT 97
[2016-06-21] MEDS: ATORVASTATIN 80 MG TAB PO SCH (20:44)
[2016-06-22] VITALS (7 sets, daily range): BP systolic 146–190; BP diastolic 65–80; PULSE 78–87; RESP 12–20; TEMP 97.5–98.3; O2SAT 94–98
[2016-06-22] MEDS: ACETAMINOPHEN/HYDROcodone 325 MG/10 MG TAB PO PRN ×6 (00:34→21:47)
[2016-06-22 02:36] LABS: HEMATOCRIT 25.6 % (35.0-46.0)
[2016-06-22] MEDS: HEPARIN SODIUM - SQ 10,000 UNITS/ML VIAL SQ SCH ×2 (03:02→17:37)
[2016-06-22] MEDS: METHADONE HCL 10 MG TAB PO SCH ×4 (06:17→23:39)
[2016-06-22] MEDS: LEVOTHYROXINE SODIUM 150 MCG TAB PO SCH (06:17)
[2016-06-22] MEDS: HIGH DOSE INSULIN NOVOLOG SUPPLEMENTAL SCALE SQ SCH ×4 (06:30→20:25)
[2016-06-22] MEDS: ASPIRIN EC 81 MG TABEC PO SCH (08:39)
[2016-06-22] MEDS: GABAPENTIN 100 MG CAP PO SCH ×2 (08:40→20:21)
[2016-06-22] MEDS: POLYETHYLENE GLYCOL 17 GM PKG PO SCH (08:40)
[2016-06-22] MEDS: DOCUSATE SODIUM 50 MG/SENNA 8.6 MG TAB PO SCH ×2 (08:40→20:25)
[2016-06-22] MEDS: CALCITRIOL 0.25 MCG CAP PO SCH (08:41)
[2016-06-22] MEDS: FLUoxetine HCL 20 MG CAP PO SCH (08:41)
[2016-06-22] MEDS: INSULIN DETEMIR 100 UNITS/ML VIAL SQ SCH ×2 (08:42→20:22)
[2016-06-22] MEDS: SEVELAMER CARBONATE 800 MG TAB PO SCH ×3 (09:00→17:38)
[2016-06-22] MEDS: CINACALCET HYDROCHLORIDE 30 MG TAB PO SCH ×2 (09:00→13:00)
[2016-06-22] MEDS: COLLAGENASE OINT 30 GM TUBE EXT SCH (09:08)
[2016-06-22] MEDS: SODIUM CHLORIDE 0.9% FLUSH 5 ML FLUSH FLUSH SCH ×2 (09:08→20:26)
[2016-06-22] MEDS: SODIUM HYPOCHLORITE 0.25% 500 ML BTL TOPICAL SCH (09:12)
[2016-06-22] MEDS: EPOETIN ALFA 10,000 UNITS/ML VIAL IV PRN (10:44)
--- NOTE | 2016-06-22 11:16 | HHI.NPPN ---
Subjective History of Present Illness 55-year-old female known to me from before with past medical history of diabetes mellitus, history of morbid obesity, end-stage renal disease on hemodialysis three times per week, history of chronic anemia, congestive heart failure, spinal stenosis, chronic back pain, hypothyroidism who came to the hospital with complaint of worsening lower abdominal wound. I was called to see the patient for the management of dialysis. The patient has been on hemodialysis Friday, and Friday. Additional Remarks Patient is alert, no SOB, abd. pain is better, had BM today. Review of Systems General Constitutional: Fatigue Respiratory Lungs: SOB Cardiovascular Cardiac: GRIFFIN Objective Data Data 06/21/16 06/22/16 19:00 07:00 Intake Total 480 ml 480 ml Output Total 0 ml Balance 480 ml 480 ml Intake Oral 480 ml 480 ml Output Urine Total 0 ml # Voids 1 1 # Bowel Movements 1 0 Vital Signs Date Time Temp Pulse Resp B/P Pulse Ox O2 Delivery O2 Flow Rate FiO2 06/22/16 08:00 98.0 80 12 190/80 97 06/22/16 05:38 80 06/22/16 04:00 97.5 78 20 176/79 96 06/22/16 00:00 98.0 87 20 159/75 98 06/21/16 20:00 98.3 79 18 191/83 97 06/21/16 16:00 98.1 102 20 158/71 98 06/21/16 12:00 98.6 96 20 165/72 97 -: 06/22/16 0212 06/21/16 0645 Physical Exam General Appearance: No Acute Distress, Comfortable Eyes Eye Exam: Pupils Equal Throat Throat Exam: Oral Mucosa [place] & Moist Neck Neck Exam: Neck Supple Pulmonary Resp Exam: Breath Sounds Equal, Crackles, Decreased Bases, Diminished Breath Sounds Gastrointestinal/Abdomen GI Exam: Soft, Non-Tender, Distended Extremeties Extremities Exam: Moderate Edema, Pitting Edema, Dependent Edema Neurologic Neuro Exam: Alert, Awake, Oriented Assessment/Plan Assessment Summary: Anemia of CKD, Hypertension, End Stage Renal Disease Problem List: (1) Anemia in chronic kidney disease (CKD) (2) Open wound of abdomen (3) Chronic stasis dermatitis (4) End stage kidney disease Plan Possible calciphylaxis. On Sodium thiosulfate and Sensipar. On Na Thiosulphate with HD. Continue the wound care. ID is following. 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 Seen by plastic surgery and had debridement of Rt. buttock area. Also has debridement of abd. wound done. Ongoing anemia, on epogen with HD. Skin Biopsy done, no Calciphylaxis noted. HD progress noted UF 2 L on Sodium Thiosulfate Problem Qualifiers (1) Open wound of abdomen: Qualified Code: S31.109A - Open wound of abdomen, initial encounter Jessie Birmingham MD Jun 22, 2016 11:16
[2016-06-22] MEDS: SODIUM THIOSULFATE INJ 12,500 MG in WATER STERILE FOR INJ 100 ML IV PRN (11:45)
[2016-06-22] MEDS: GENTAMICIN SULFATE (DIALYSIS USE ONLY) 20 MG/2 ML VIAL IV PRN (12:46)
[2016-06-22] MEDS: HEPARIN SODIUM - IV 10,000 UNITS/10 ML VIAL PRN (12:46)
--- NOTE | 2016-06-22 14:34 | HHI.PR ---
Subjective Remarks Follow-up with sepsis secondary to abdominal pannus wound/cellulitis. Did receive Enrico package with meals today. Tolerating PO diet. Denies any nausea and vomiting. Pain controlled today. Denies any shortness of breath, fever, chest pain or chills. Did have some bleeding in wound overnight but has stopped , hemoglobin 8.1 today. Spoke to patient at length about treatment plan, patient appears to be coping well. Objective Vitals Vital Signs Date Time Temp Pulse Resp B/P Pulse Ox O2 Delivery O2 Flow Rate FiO2 06/22/16 12:00 06/22/16 08:00 98.0 80 12 190/80 97 06/22/16 05:38 80 06/22/16 04:00 97.5 78 20 176/79 96 06/22/16 00:00 98.0 87 20 159/75 98 06/21/16 20:00 98.3 79 18 191/83 97 06/21/16 16:00 98.1 102 20 158/71 98 I/O 06/21/16 06/21/16 06/21/16 06/22/16 06/22/16 06/22/16 07:00 15:00 23:00 07:00 15:00 23:00 Intake Total 480 ml 480 ml 240 ml 240 ml Output Total 0 ml 2000 ml Balance 480 ml 480 ml 240 ml 240 ml -2000 ml Intake Oral 480 ml 480 ml 240 ml 240 ml Output Urine Total 0 ml Hemodialysis 2000 ml # Voids 0 1 1 # Bowel Movements 0 1 0 0 Result Diagram: 06/22/16 0212 06/21/16 0645 Imaging Last Impressions Chest X-Ray 06/08/16 0000 Signed Impressions: Service Date/Time: Wednesday, June 08, 2016 19:03 - CONCLUSION: The lungs are clear. No evidence of pneumothorax. Len Benz MD Objective Remarks GENERAL: Pleasant, morbidly obese middle-age female patient in [facility]. SKIN: Warm and dry. HEAD: Normocephalic. EYES: No scleral icterus. No injection or drainage. NECK: Supple, trachea midline. No JVD or lymphadenopathy. CARDIOVASCULAR: Regular rate and rhythm without murmurs, gallops, or rubs. RESPIRATORY: Breath sounds equal bilaterally. No accessory muscle use. GASTROINTESTINAL: Obese over hanging pannus. Abdomen soft, non-tender, nondistended. EXTREMITIES: Chronic pedal edema. NEUROLOGICAL: Awake, alert, and oriented x 3. Non-focal. Procedures I&D Debridement Skin biopsy on 06/06 A/P Problem List: (1) Open wound of abdomen ICD Code: S31.109A Status: Acute (2) Type II diabetes mellitus with neurological manifestations, uncontrolled ICD Code: E11.49 Status: Chronic (3) End stage renal disease on dialysis ICD Code: N18.6 Status: Chronic (4) Hypertension, benign ICD Code: I10 Status: Chronic (5) Constipation ICD Code: K59.00 Status: Acute Assessment and Plan This is a pleasant 55 y/o Female who came to Emergency room as we know she has Hypertension, DM II, Hyperlipidemia, Chronic back pain, ESRD on Friday, and Friday, presents to the emergency department on 05/14/16 for evaluation of worsening abdominal wound. 1. Sepsis secondary to abdominal pannus wound/cellulitis, sepsis improved. - Appreciate general surgery and plastic surgery recommendations. - Antibiotics discontinued by infectious disease. Status post incision and drainage on 05/26/16. - Continue wound care, pain control. - Biopsy negative for calciphylaxis. - WBC 12.1, 06/21. CBC in am. 2. End-stage renal disease with electrolyte abnormalities: On hemodialysis TTS. Nephrology following, noted and reviewed - assessment and recommendations include continue sodium thiosulfate with dialysis and Sensipar. BMP in am. 3. Chronic low back pain, chronic pain syndrome: Continue pain medications. Palliative care following, appreciate input. Continue methadone. 4. Anemia of chronic disease worsened with acute blood loss anemia: S/p transfusion on 06/10/16 as well as erythropoietin by nephrology. Another PRBC transfusion yesterday, hemoglobin stable. Closely monitor. Labs in am. 5. Constipation: Last BM today. Continue scheduled bowel regimen. 6. Acute metabolic encephalopathy, improved: Likely secondary to morphine. 7. Bleeding from wound: Continued wound bleeding. The patient has had significant bleeding from the wound on 3 different occasions. Wound care nurses have applied pressure and Gelfoam. Patient may need cautery, conversing with plastics for continued recommendations. 8. Morbid obesity: Patient has been counseled. 9. Hypertension: Blood pressure is fairly well-controlled, clonidine PRN. 10. Diabetes mellitus: Monitor Accu-Cheks and cover with sliding scale insulin, has been on the low end, will decrease Levemir 11. Hyperlipidemia: Continue home medications. 12. Severe protein calorie Malnutrition with poor wound healing: Pre-albumin 9. Albumin 1.3. Consult dietitian. Assure that patient receives Enrico packs TID with each meal. 13. DVT prophylaxis: Subcutaneous heparin. CODE STATUS: Full code. Written by Anjelica Farley, acting as scribe for Dr. Han on 06/21/16 at 16: 09. This note was transcribed by scribe Anjelica Farley. I, Dr. Kylee Han personally performed the history, physical exam, and medical decision making; and confirmed the accuracy of the information in the transcribed note, made appropriate amendments. Authenticated by Dr. Kylee Han on 06/22/16 at 21:44. Problem Qualifiers (1) Open wound of abdomen: Qualified Code: S31.109A - Open wound of abdomen, initial encounter Anjelica Farley Jun 22, 2016 14:34 Kylee Han MD Jun 22, 2016 21:44
[2016-06-22] MEDS: ATORVASTATIN 80 MG TAB PO SCH (20:21)
[2016-06-23] VITALS (10 sets, daily range): BP systolic 100–161; BP diastolic 53–72; PULSE 73–94; RESP 16–20; TEMP 98.3–99.4; O2SAT 93–98
[2016-06-23] MEDS: ACETAMINOPHEN/HYDROcodone 325 MG/10 MG TAB PO PRN ×5 (01:52→22:15)
[2016-06-23] MEDS: HEPARIN SODIUM - SQ 10,000 UNITS/ML VIAL SQ SCH ×2 (03:19→16:00)
[2016-06-23] MEDS: LEVOTHYROXINE SODIUM 150 MCG TAB PO SCH (05:32)
[2016-06-23] MEDS: METHADONE HCL 10 MG TAB PO SCH ×3 (05:35→18:15)
[2016-06-23] MEDS: HIGH DOSE INSULIN NOVOLOG SUPPLEMENTAL SCALE SQ SCH ×4 (06:04→20:59)
[2016-06-23 07:17] LABS: BASOPHIL # 0.1 TH/MM3 (0-0.2); BASOPHIL % 0.6 % (0.0-2.0); EOSINOPHIL # 0.3 TH/MM3 (0-0.4); EOSINOPHIL % 2.5 % (0.0-4.0); HEMATOCRIT 23.5 % (35.0-46.0); HEMO FLAGS DIFF FINAL; LYMPH % 13.4 % (9.0-44.0); LYMPHOCYTE # 1.6 TH/MM3 (1.0-4.8); MEAN CORPUSCULAR HEMOGLOBIN 26.8 PG (27.0-34.0); MEAN CORPUSCULAR HGB CONC 33.1 % (32.0-36.0); MONO % 5.9 % (0.0-8.0); NEUT % 77.6 % (16.0-70.0); PLATELET COUNT 450 TH/MM3 (150-450); RED CELL DISTRIBUTION WIDTH 18.6 % (11.6-17.2); WHITE BLOOD COUNT 11.6 TH/MM3 (4.0-11.0)
[2016-06-23 07:30] LABS: POTASSIUM 4.1 MEQ/L (3.5-5.1)
[2016-06-23 07:41] LABS: APTT (PATIENT) 40.2 SEC (24.3-30.1); INTERNATIONAL NORMALIZED RATIO 1.1 RATIO; PROTHROMBIN TIME - PATIENT 12.7 SEC (9.8-11.6)
[2016-06-23] MEDS: SODIUM CHLORIDE 0.9% FLUSH 5 ML FLUSH FLUSH SCH ×2 (09:00→20:58)
[2016-06-23] MEDS: COLLAGENASE OINT 30 GM TUBE EXT SCH (09:00)
[2016-06-23] MEDS: SODIUM HYPOCHLORITE 0.25% 500 ML BTL TOPICAL SCH (09:00)
[2016-06-23] MEDS: INSULIN DETEMIR 100 UNITS/ML VIAL SQ SCH ×2 (09:00→20:58)
[2016-06-23] MEDS: FLUoxetine HCL 20 MG CAP PO SCH (10:27)
[2016-06-23] MEDS: GABAPENTIN 100 MG CAP PO SCH ×2 (10:27→20:58)
[2016-06-23] MEDS: DOCUSATE SODIUM 50 MG/SENNA 8.6 MG TAB PO SCH ×2 (10:27→20:58)
[2016-06-23] MEDS: POLYETHYLENE GLYCOL 17 GM PKG PO SCH (10:27)
[2016-06-23] MEDS: ASPIRIN EC 81 MG TABEC PO SCH (10:27)
[2016-06-23] MEDS: CALCITRIOL 0.25 MCG CAP PO SCH (10:28)
[2016-06-23] MEDS: SEVELAMER CARBONATE 800 MG TAB PO SCH ×3 (10:28→18:00)
[2016-06-23] MEDS: CINACALCET HYDROCHLORIDE 30 MG TAB PO SCH (10:28)
--- NOTE | 2016-06-23 14:20 | HHI.NPPN ---
Subjective History of Present Illness 55-year-old female known to me from before with past medical history of diabetes mellitus, history of morbid obesity, end-stage renal disease on hemodialysis three times per week, history of chronic anemia, congestive heart failure, spinal stenosis, chronic back pain, hypothyroidism who came to the hospital with complaint of worsening lower abdominal wound. I was called to see the patient for the management of dialysis. The patient has been on hemodialysis Friday, and Friday. Additional Remarks Patient is alert, no SOB, abd. pain is better, Review of Systems General Constitutional: Fatigue Respiratory Lungs: SOB Cardiovascular Cardiac: GRIFFIN Objective Data Data 06/22/16 06/23/16 19:00 07:00 Intake Total 240 ml 720 ml Output Total 2000 ml 0 ml Balance -1760 ml 720 ml Intake Oral 240 ml 720 ml IV Total 0 ml Output Urine Total 0 ml Hemodialysis 2000 ml # Voids 2 # Bowel Movements 0 Vital Signs Date Time Temp Pulse Resp B/P Pulse Ox O2 Delivery O2 Flow Rate FiO2 06/23/16 12:00 98.7 83 16 143/65 95 06/23/16 11:45 20 06/23/16 08:00 98.3 82 20 161/72 98 06/23/16 04:00 98.5 82 18 144/65 95 06/23/16 02:01 73 06/23/16 01:11 18 06/23/16 00:00 99.0 82 18 123/60 93 06/22/16 20:00 98.3 82 20 146/65 94 06/22/16 18:00 86 06/22/16 16:00 98.3 86 16 171/72 95 -: 06/23/16 0545 06/23/16 0545 Physical Exam General Appearance: No Acute Distress, Comfortable Eyes Eye Exam: Pupils Equal Throat Throat Exam: Oral Mucosa [place] & Moist Neck Neck Exam: Neck Supple Pulmonary Resp Exam: Breath Sounds Equal, Crackles, Decreased Bases, Diminished Breath Sounds Gastrointestinal/Abdomen GI Exam: Soft, Non-Tender, Distended Extremeties Extremities Exam: Moderate Edema, Pitting Edema, Dependent Edema Neurologic Neuro Exam: Alert, Awake, Oriented Assessment/Plan Assessment Summary: Anemia of CKD, Hypertension, End Stage Renal Disease Problem List: (1) Anemia in chronic kidney disease (CKD) (2) Open wound of abdomen (3) Chronic stasis dermatitis (4) End stage kidney disease Plan Possible calciphylaxis. On Sodium thiosulfate and Sensipar. On Na Thiosulphate with HD. Continue the wound care. ID is following. 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 Seen by plastic surgery and had debridement of Rt. buttock area. Also has debridement of abd. wound done. Nurse report non healing wounds which bleeds, foul smell from wound Ongoing anemia, on epogen with HD. Skin Biopsy done, no Calciphylaxis noted. HD yesterday 2 L on Sodium Thiosulfate Problem Qualifiers (1) Open wound of abdomen: Qualified Code: S31.109A - Open wound of abdomen, initial encounter Jessie Birmingham MD Jun 23, 2016 14:20
--- NOTE | 2016-06-23 14:55 | HHI.PR ---
Subjective Remarks Follow up with sepsis secondary to abdominal pannus wound/cellulitis. Patient seen and examined by myself and Dr. Han. Pain controlled. Patient states that she is really trying to increase her fiber intake, but appetite is poor. Denies any nausea, vomiting, chest pain, shortness of breath or diarrhea. Objective Vitals Vital Signs Date Time Temp Pulse Resp B/P Pulse Ox O2 Delivery O2 Flow Rate FiO2 06/23/16 12:00 98.7 83 16 143/65 95 06/23/16 11:45 20 06/23/16 08:00 98.3 82 20 161/72 98 06/23/16 04:00 98.5 82 18 144/65 95 06/23/16 02:01 73 06/23/16 01:11 18 06/23/16 00:00 99.0 82 18 123/60 93 06/22/16 20:00 98.3 82 20 146/65 94 06/22/16 18:00 86 06/22/16 16:00 98.3 86 16 171/72 95 I/O 06/22/16 06/22/16 06/22/16 06/23/16 06/23/16 06/23/16 07:00 15:00 23:00 07:00 15:00 23:00 Intake Total 240 ml 240 ml 360 ml 360 ml Output Total 0 ml 2000 ml 0 ml 0 ml Balance 240 ml -1760 ml 360 ml 360 ml Intake Oral 240 ml 240 ml 360 ml 360 ml IV Total 0 ml Output Urine Total 0 ml 0 ml 0 ml Hemodialysis 2000 ml # Voids 2 # Bowel Movements 0 0 0 Result Diagram: 06/23/16 0545 06/23/16 0545 Imaging Last Impressions Chest X-Ray 06/08/16 0000 Signed Impressions: Service Date/Time: Wednesday, June 08, 2016 19:03 - CONCLUSION: The lungs are clear. No evidence of pneumothorax. Len Benz MD Objective Remarks GENERAL: Pleasant, morbidly obese middle-age female patient in [facility]. SKIN: Warm and dry. HEAD: Normocephalic. EYES: No scleral icterus. No injection or drainage. NECK: Supple, trachea midline. No JVD or lymphadenopathy. CARDIOVASCULAR: Regular rate and rhythm without murmurs, gallops, or rubs. RESPIRATORY: Breath sounds equal bilaterally. No accessory muscle use. GASTROINTESTINAL: Obese over hanging pannus. Abdomen soft, non-tender, nondistended. EXTREMITIES: Chronic pedal edema. NEUROLOGICAL: Awake, alert, and oriented x 3. Non-focal. 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 1. Sepsis secondary to abdominal pannus wound/cellulitis, sepsis improved. - Appreciate general surgery and plastic surgery recommendations for next steps in plan of care. - Antibiotics discontinued by infectious disease. Status post incision and drainage on 05/26/16. - Continue wound care, control bleeding and pain control. - Biopsy negative for calciphylaxis. - WBC 11.6, CBC in am. 2. End-stage renal disease with electrolyte abnormalities: On hemodialysis TTS. Nephrology following. 3. Chronic low back pain, chronic pain syndrome: Continue pain medications, well controlled. Palliative care following, appreciate input. Continue methadone. 4. Anemia of chronic disease worsened with acute blood loss anemia: S/p transfusion on 06/10/16 as well as erythropoietin by nephrology. Another PRBC transfusion 06/21, hemoglobin 7.8. Closely monitor. Notify is Hbg <7. 5. Constipation: Last BM 06/22. Continue scheduled bowel regimen. 6. Acute metabolic encephalopathy, improved: Likely secondary to morphine. 7. Bleeding from wound: Continued wound bleeding. The patient has had significant bleeding from the wound on 3 different occasions. Wound care nurses have applied pressure and Gelfoam. Patient may need cautery, plan to converse with plastics tomorrow for continued recommendations. 8. Morbid obesity: Patient has been counseled. 9. Hypertension: Blood pressure is fairly well-controlled, clonidine PRN. 10. Diabetes mellitus: Monitor Accu-Cheks and cover with sliding scale insulin, continue Levemir. 11. Hyperlipidemia: Continue home medications. 12. Malnutrition with poor wound healing: Pre-albumin 9. Albumin 1.3. Blending Supervisor consulted. Assure that patient receives Enrico packs BIDas well as Nepro BID. 13. DVT prophylaxis: Subcutaneous heparin. CODE STATUS: Full code. Written by Anjelica Farley, acting as scribe for Dr. Han on 06/23/16 at 14: 54. This note was transcribed by scribe. I, Dr. Kylee Han personally performed the history, physical exam, and medical decision making; and confirmed the accuracy of the information in the transcribed note. Authenticated by Dr. Kylee Han on 06/23/16 at 16:25. Problem Qualifiers (1) Open wound of abdomen: Qualified Code: S31.109A - Open wound of abdomen, initial encounter Anjelica Farley Jun 23, 2016 14:55 Kylee Han MD Jun 23, 2016 16:25
[2016-06-23 17:56] LABS: AUTOMATED NEUTROPHIL # 11.2 TH/MM3 (1.8-7.7); BASOPHIL # 0.1 TH/MM3 (0-0.2); BASOPHIL % 0.7 % (0.0-2.0); EOSINOPHIL # 0.3 TH/MM3 (0-0.4); EOSINOPHIL % 2.3 % (0.0-4.0); HEMATOCRIT 24.5 % (35.0-46.0); HEMO FLAGS DIFF FINAL; LYMPH % 11.1 % (9.0-44.0); LYMPHOCYTE # 1.6 TH/MM3 (1.0-4.8); MEAN CELL VOLUME 81.3 FL (80.0-100.0); MEAN CORPUSCULAR HEMOGLOBIN 25.5 PG (27.0-34.0); MEAN CORPUSCULAR HGB CONC 31.4 % (32.0-36.0); MONO % 5.7 % (0.0-8.0); NEUT % 80.2 % (16.0-70.0); PLATELET COUNT 499 TH/MM3 (150-450); RED BLOOD COUNT 3.01 MIL/MM3 (4.00-5.30); RED CELL DISTRIBUTION WIDTH 18.2 % (11.6-17.2)
[2016-06-23 18:11] LABS: BICARBONATE 30.1 MEQ/L (21.0-32.0); POTASSIUM 4.2 MEQ/L (3.5-5.1)
--- NOTE | 2016-06-23 18:13 | HHI.PR ---
Addendum Remarks RN called for significant profuse bleeding from abdominal wound, reported over 1 gallon of bloody drainage, soaked prior dressing. Nursing team applied pressure, now bleeding controlled. Ordered stat CBC which revealed Hgb 7.7, will transfuse 1u pRBC. Patient seen by Dr. Han, Monika Muhammad PA-C and Anjelica ELLIOTT at bedside. Discussed extensively with patient, family, and nursing staff at bedside. Will continue close monitoring overnight. If any further bleeding, instructed RN to continue pressure and transfer to ICU for closer monitoring. Repeat CBC in am. Written by Mara Muhammad, acting as scribe for Dr. Han on 06/23/16 at 18: 13. (Mara Muhammad PA-C) Remarks RD assessment as below: "Variable po intake 0-100% for meals. Needs assistance w/feeding. Continue Nepro supplment BID. Continue Enrico 2-packets daily to provide CaHMB, Arginine and Glutamine for tissue building and wound healing. Pt receives some food from outside." Will d/w plastics in a.m. regarding improving nutrition for wound healing, and obtain treatment plan due to the ongoing bleeding. Wound is quite necrotic per assessments. Any debridement and surgery may not heal at this time due to severe malnutrition, ESRD, DM - maximize wound care and obtain definitive surgical plan, ie panniculectomy? once nutrition improved. Patient has been declined for transfer to [facility]. (Kylee Han MD) Mara Muhammad PA-C Jun 23, 2016 18:13 Kylee Han MD Jun 24, 2016 09:01
[2016-06-23] MEDS ORDERED: SODIUM CHLOR 0.9% 250 ML INJ 250 ML IV ONE (18:15)
[2016-06-23] MEDS: ATORVASTATIN 80 MG TAB PO SCH (20:58)
[2016-06-24] VITALS (7 sets, daily range): BP systolic 102–130; BP diastolic 51–62; PULSE 84–91; RESP 18–22; TEMP 97.8–99.9; O2SAT 94–100
[2016-06-24] MEDS: METHADONE HCL 10 MG TAB PO SCH ×4 (00:03→18:11)
[2016-06-24] MEDS: ACETAMINOPHEN/HYDROcodone 325 MG/10 MG TAB PO PRN ×3 (02:13→22:22)
[2016-06-24] MEDS: HEPARIN SODIUM - SQ 10,000 UNITS/ML VIAL SQ SCH ×2 (05:15→15:11)
[2016-06-24] MEDS: LEVOTHYROXINE SODIUM 150 MCG TAB PO SCH (05:15)
[2016-06-24 05:42] LABS: AUTOMATED NEUTROPHIL # 10.6 TH/MM3 (1.8-7.7); BASOPHIL # 0.1 TH/MM3 (0-0.2); BASOPHIL % 0.8 % (0.0-2.0); EOSINOPHIL # 0.3 TH/MM3 (0-0.4); HEMATOCRIT 24.9 % (35.0-46.0); HEMO FLAGS DIFF FINAL; LYMPH % 15.2 % (9.0-44.0); LYMPHOCYTE # 2.1 TH/MM3 (1.0-4.8); MEAN CELL VOLUME 82.9 FL (80.0-100.0); MEAN CORPUSCULAR HEMOGLOBIN 26.5 PG (27.0-34.0); MEAN CORPUSCULAR HGB CONC 31.9 % (32.0-36.0); MONO % 5.9 % (0.0-8.0); NEUT % 76.1 % (16.0-70.0); PLATELET COUNT 415 TH/MM3 (150-450); RED BLOOD COUNT 3.01 MIL/MM3 (4.00-5.30); RED CELL DISTRIBUTION WIDTH 17.4 % (11.6-17.2); WHITE BLOOD COUNT 13.9 TH/MM3 (4.0-11.0)
[2016-06-24] MEDS: HIGH DOSE INSULIN NOVOLOG SUPPLEMENTAL SCALE SQ SCH ×4 (06:16→20:35)
[2016-06-24] MEDS: SODIUM HYPOCHLORITE 0.25% 500 ML BTL TOPICAL SCH (09:00)
[2016-06-24] MEDS: COLLAGENASE OINT 30 GM TUBE EXT SCH (09:00)
[2016-06-24] MEDS: CALCITRIOL 0.25 MCG CAP PO SCH (09:15)
[2016-06-24] MEDS: POLYETHYLENE GLYCOL 17 GM PKG PO SCH (09:15)
[2016-06-24] MEDS: INSULIN DETEMIR 100 UNITS/ML VIAL SQ SCH ×2 (09:15→20:34)
[2016-06-24] MEDS: ASPIRIN EC 81 MG TABEC PO SCH (09:15)
[2016-06-24] MEDS: CINACALCET HYDROCHLORIDE 30 MG TAB PO SCH (09:15)
[2016-06-24] MEDS: FLUoxetine HCL 20 MG CAP PO SCH (09:15)
[2016-06-24] MEDS: GABAPENTIN 100 MG CAP PO SCH ×2 (09:15→20:33)
[2016-06-24] MEDS: DOCUSATE SODIUM 50 MG/SENNA 8.6 MG TAB PO SCH ×2 (09:15→20:33)
[2016-06-24] MEDS: SEVELAMER CARBONATE 800 MG TAB PO SCH ×3 (09:15→18:11)
[2016-06-24] MEDS: ACETAMINOPHEN/HYDROcodone 325 MG/5 MG TAB PO PRN ×3 (09:47→18:53)
--- NOTE | 2016-06-24 13:30 | PD.PLAS.PN ---
Subjective Remarks The patient is resting comfortably. The patient has been having significant bleeding from the wound bed. Objective Vital Signs Date Time Temp Pulse Resp B/P Pulse Ox O2 Delivery O2 Flow Rate FiO2 06/24/16 12:00 98.4 84 20 104/51 94 06/24/16 08:00 98.5 86 20 128/62 95 06/24/16 04:00 98.7 84 18 129/58 94 06/24/16 02:55 97.8 85 18 130/61 96 06/24/16 00:00 99.4 91 18 102/53 97 06/23/16 23:35 98.7 94 18 117/57 06/23/16 23:14 99.4 91 18 102/53 97 06/23/16 21:00 90 06/23/16 20:00 99.4 91 20 100/56 95 06/23/16 16:00 98.9 86 16 144/67 97 06/23/16 14:55 20 I/O 06/23/16 06/23/16 06/23/16 06/24/16 06/24/16 06/24/16 07:00 15:00 23:00 07:00 15:00 23:00 Intake Total 360 ml 0 ml 0 ml 0 ml Output Total 0 ml Balance 360 ml 0 ml 0 ml 0 ml Intake Oral 360 ml 0 ml 0 ml IV Total 0 ml Output Urine Total 0 ml # Voids 0 0 # Bowel Movements 0 0 0 Laboratory Tests Test 06/23/16 06/23/16 06/24/16 17:41 21:14 04:58 White Blood Count 14.0 13.9 Red Blood Count 3.01 3.01 Hemoglobin 7.7 8.0 Hematocrit 24.5 24.9 Mean Corpuscular Volume 81.3 82.9 Mean Corpuscular Hemoglobin 25.5 26.5 Mean Corpuscular Hemoglobin 31.4 31.9 Concent Red Cell Distribution Width 18.2 17.4 Platelet Count 499 415 Mean Platelet Volume 6.6 6.6 Neutrophils (%) (Auto) 80.2 76.1 Lymphocytes (%) (Auto) 11.1 15.2 Monocytes (%) (Auto) 5.7 5.9 Eosinophils (%) (Auto) 2.3 2.0 Basophils (%) (Auto) 0.7 0.8 Neutrophils # (Auto) 11.2 10.6 Lymphocytes # (Auto) 1.6 2.1 Monocytes # (Auto) 0.8 0.8 Eosinophils # (Auto) 0.3 0.3 Basophils # (Auto) 0.1 0.1 CBC Comment DIFF FINAL DIFF FINAL Differential Comment Sodium Level 135 Potassium Level 4.2 Chloride Level 93 Carbon Dioxide Level 30.1 Anion Gap 12 Blood Urea Nitrogen 43 Creatinine 5.19 Estimat Glomerular Filtration 9 Rate Random Glucose 121 Calcium Level 8.3 Blood Type O POSITIVE Antibody Screen NEGATIVE Crossmatch Leukocyte-Reduced Red Blood Cells Blood Bank Comment Result Diagram: 06/24/16 0458 06/23/16 1741 Exam Findings There is a dakin's solution wet to dry dressing in place. On exam, there is no active bleeding in the wound bed. There is a significant amount of necrotic tissue with a foul odor. There is no purulent drainage. Periwound skin is erythematous with induration and tenderness. Assessment and Plan Diagnosis: (1) Open wound of abdomen Assessment and Plan The wound is packed with ABD pads and covered with dry dressing. Spoke to RN. She will leave dressing in place unless there is any additional bleeding. I will return tomorrow to change dressing and assess bleeding. Discussed with Dr. Meyers. Dana Romero Jun 24, 2016 13:30
[2016-06-24] MEDS: ALPRAZolam 0.25 MG TAB PO PRN (15:11)
--- NOTE | 2016-06-24 16:37 | HHI.NPPN ---
Subjective History of Present Illness 55-year-old female known to me from before with past medical history of diabetes mellitus, history of morbid obesity, end-stage renal disease on hemodialysis three times per week, history of chronic anemia, congestive heart failure, spinal stenosis, chronic back pain, hypothyroidism who came to the hospital with complaint of worsening lower abdominal wound. I was called to see the patient for the management of dialysis. The patient has been on hemodialysis Friday, and Friday. Additional Remarks Patient is alert, no SOB, has mild abd. pain, feeling weak, her legs gave up and went on her knees while going to rest room. Review of Systems General Constitutional: Fatigue Respiratory Lungs: SOB Cardiovascular Cardiac: GRIFFIN Objective Data Data 06/23/16 06/24/16 19:00 07:00 Intake Total 0 ml 0 ml Balance 0 ml 0 ml Intake Oral 0 ml IV Total 0 ml # Voids 0 # Bowel Movements 0 Vital Signs Date Time Temp Pulse Resp B/P Pulse Ox O2 Delivery O2 Flow Rate FiO2 06/24/16 12:00 98.4 84 20 104/51 94 06/24/16 08:00 98.5 86 20 128/62 95 06/24/16 04:00 98.7 84 18 129/58 94 06/24/16 02:55 97.8 85 18 130/61 96 06/24/16 00:00 99.4 91 18 102/53 97 06/23/16 23:35 98.7 94 18 117/57 06/23/16 23:14 99.4 91 18 102/53 97 06/23/16 21:00 90 06/23/16 20:00 99.4 91 20 100/56 95 -: 06/24/16 0458 06/23/16 1741 Physical Exam General Appearance: No Acute Distress, Comfortable Eyes Eye Exam: Pupils Equal Throat Throat Exam: Oral Mucosa [place] & Moist Neck Neck Exam: Neck Supple Pulmonary Resp Exam: Breath Sounds Equal, Crackles, Decreased Bases, Diminished Breath Sounds Gastrointestinal/Abdomen GI Exam: Soft, Non-Tender, Distended Extremeties Extremities Exam: Moderate Edema, Pitting Edema, Dependent Edema Neurologic Neuro Exam: Alert, Awake, Oriented Assessment/Plan Assessment Summary: Anemia of CKD, Hypertension, End Stage Renal Disease Problem List: (1) Anemia in chronic kidney disease (CKD) (2) Open wound of abdomen (3) Chronic stasis dermatitis (4) End stage kidney disease Plan Continue the wound care. ID is following. 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 Seen by plastic surgery and had debridement of Rt. buttock area. Also has debridement of abd. wound done. Ongoing anemia, on epogen with HD. Skin Biopsy done, no Calciphylaxis noted. HD to be done yesterday. Follow Hgb and transfuse as needed. Hgb. is stable. Continue same. HD will be in AM. Problem Qualifiers (1) Open wound of abdomen: Qualified Code: S31.109A - Open wound of abdomen, initial encounter Valentin Jimenez MD Jun 24, 2016 16:37
--- NOTE | 2016-06-24 17:36 | PD.PLAS.PN ---
Subjective Remarks Patient reports decreased appetite. Vital Signs Date Time Temp Pulse Resp B/P Pulse Ox O2 Delivery O2 Flow Rate FiO2 06/24/16 16:00 99.9 89 22 105/54 100 06/24/16 12:00 98.4 84 20 104/51 94 06/24/16 08:00 98.5 86 20 128/62 95 06/24/16 04:00 98.7 84 18 129/58 94 06/24/16 02:55 97.8 85 18 130/61 96 06/24/16 00:00 99.4 91 18 102/53 97 06/23/16 23:35 98.7 94 18 117/57 06/23/16 23:14 99.4 91 18 102/53 97 06/23/16 21:00 90 06/23/16 20:00 99.4 91 20 100/56 95 I/O 06/23/16 06/23/16 06/23/16 06/24/16 06/24/16 06/24/16 07:00 15:00 23:00 07:00 15:00 23:00 Intake Total 360 ml 0 ml 0 ml 0 ml 480 ml Output Total 0 ml Balance 360 ml 0 ml 0 ml 0 ml 480 ml Intake Oral 360 ml 0 ml 0 ml 480 ml IV Total 0 ml Output Urine Total 0 ml # Voids 0 0 1 # Bowel Movements 0 0 0 Laboratory Tests Test 06/23/16 06/23/16 06/24/16 17:41 21:14 04:58 White Blood Count 14.0 13.9 Red Blood Count 3.01 3.01 Hemoglobin 7.7 8.0 Hematocrit 24.5 24.9 Mean Corpuscular Volume 81.3 82.9 Mean Corpuscular Hemoglobin 25.5 26.5 Mean Corpuscular Hemoglobin 31.4 31.9 Concent Red Cell Distribution Width 18.2 17.4 Platelet Count 499 415 Mean Platelet Volume 6.6 6.6 Neutrophils (%) (Auto) 80.2 76.1 Lymphocytes (%) (Auto) 11.1 15.2 Monocytes (%) (Auto) 5.7 5.9 Eosinophils (%) (Auto) 2.3 2.0 Basophils (%) (Auto) 0.7 0.8 Neutrophils # (Auto) 11.2 10.6 Lymphocytes # (Auto) 1.6 2.1 Monocytes # (Auto) 0.8 0.8 Eosinophils # (Auto) 0.3 0.3 Basophils # (Auto) 0.1 0.1 CBC Comment DIFF FINAL DIFF FINAL Differential Comment Sodium Level 135 Potassium Level 4.2 Chloride Level 93 Carbon Dioxide Level 30.1 Anion Gap 12 Blood Urea Nitrogen 43 Creatinine 5.19 Estimat Glomerular Filtration 9 Rate Random Glucose 121 Calcium Level 8.3 Blood Type O POSITIVE Antibody Screen NEGATIVE Crossmatch Leukocyte-Reduced Red Blood Cells Blood Bank Comment Result Diagram: 06/24/16 0458 06/23/16 1741 Exam Findings Her pannus remains partially necrotic. Plan Impression: The patient needs to have the pannus removed to allow for healing. Plan: I have advised the patient that she is at high risk due to her comorbid conditions. She understands this and understands and accepts the risks and complications of the surgery. We will schedule her for removal of the pannus. Lisa Meyers MD Jun 24, 2016 17:36
--- NOTE | 2016-06-24 19:11 | HHI.PR ---
Subjective Remarks No further bleeding reported from abdominal wound. Patient denies any pain currently. Afebrile. Objective Vitals Vital Signs Date Time Temp Pulse Resp B/P Pulse Ox O2 Delivery O2 Flow Rate FiO2 06/24/16 16:00 99.9 89 22 105/54 100 06/24/16 12:00 98.4 84 20 104/51 94 06/24/16 08:00 98.5 86 20 128/62 95 06/24/16 04:00 98.7 84 18 129/58 94 06/24/16 02:55 97.8 85 18 130/61 96 06/24/16 00:00 99.4 91 18 102/53 97 06/23/16 23:35 98.7 94 18 117/57 06/23/16 23:14 99.4 91 18 102/53 97 06/23/16 21:00 90 06/23/16 20:00 99.4 91 20 100/56 95 I/O 06/23/16 06/23/16 06/23/16 06/24/16 06/24/16 06/24/16 07:00 15:00 23:00 07:00 15:00 23:00 Intake Total 360 ml 0 ml 0 ml 0 ml 480 ml Output Total 0 ml Balance 360 ml 0 ml 0 ml 0 ml 480 ml Intake Oral 360 ml 0 ml 0 ml 480 ml IV Total 0 ml Output Urine Total 0 ml # Voids 0 0 1 # Bowel Movements 0 0 0 Result Diagram: 06/24/16 0458 06/23/16 1741 Objective Remarks GENERAL: Pleasant, morbidly obese middle-age female patient. SKIN: Warm and dry. HEAD: Normocephalic. EYES: No scleral icterus. No injection or drainage. NECK: Supple, trachea midline. No JVD or lymphadenopathy. CARDIOVASCULAR: Regular rate and rhythm without murmurs, gallops, or rubs. RESPIRATORY: Breath sounds equal bilaterally. No accessory muscle use. GASTROINTESTINAL: Obese over hanging pannus. Abdomen soft, non-tender, nondistended. dressing in place EXTREMITIES: Chronic pedal edema. NEUROLOGICAL: Awake, alert, and oriented x 3. Non-focal. 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 -Abdominal pannus wounds, with necrosis -greatly appreciate dr. meyers's input - discussed in detail with him today. -panniculectomy planned later this week - Status post incision and drainage on 05/26/16-->no improvement. - Biopsy negative for calciphylaxis -showed venous stasis dermatitis. -wound does bleed occasionally, use pressure, and silver nitrate cautery as needed -Sepsis, resolved -End-stage renal disease with electrolyte abnormalities: On hemodialysis TTS. Nephrology following. -Chronic low back pain, chronic pain syndrome: Continue pain medications, well controlled. Palliative care following, appreciate input. Continue methadone. -Anemia of chronic disease worsened with acute blood loss anemia: S/p transfusion on 06/24/16 as well as erythropoietin by nephrology. Another PRBC transfusion 06/21, hemoglobin 7.8. Closely monitor. transfuse Hbg <7. - Morbid obesity -Hypertension: Blood pressure is fairly well-controlled, clonidine PRN. -Diabetes mellitus: Monitor Accu-Cheks and cover with sliding scale insulin, continue Levemir. -Malnutrition with poor wound healing: Pre-albumin 9. Albumin 1.3. Nailhead Setter consulted. Assure that patient receives [place] packs BIDas well as Nepro BID. Discussed with Dr. Meyers, who feels the low protein is from the necrosis. -DVT prophylaxis: Subcutaneous heparin. Problem Qualifiers (1) Open wound of abdomen: Qualified Code: S31.109A - Open wound of abdomen, initial encounter Kylee Han MD Jun 24, 2016 19:11
[2016-06-24] MEDS: ATORVASTATIN 80 MG TAB PO SCH (20:33)
[2016-06-24] MEDS: SODIUM CHLORIDE 0.9% FLUSH 5 ML FLUSH FLUSH SCH (21:00)
[2016-06-25] VITALS: BP 161/74; PULSE 81; RESP 18; TEMP 99; O2SAT 94
[2016-06-25] MEDS: METHADONE HCL 10 MG TAB PO SCH ×4 (00:20→18:46)
[2016-06-25 04:00] VITALS: BP 154/71; PULSE 78; RESP 18; TEMP 98.4; O2SAT 99
[2016-06-25] MEDS: HEPARIN SODIUM - SQ 10,000 UNITS/ML VIAL SQ SCH ×2 (05:35→16:00)
[2016-06-25] MEDS: LEVOTHYROXINE SODIUM 150 MCG TAB PO SCH (05:36)
[2016-06-25] MEDS: ACETAMINOPHEN/HYDROcodone 325 MG/10 MG TAB PO PRN ×4 (05:39→19:46)
[2016-06-25 08:00] VITALS: BP_SYST 15; BP_SYST 150; BP_DIAS 67; PULSE 62; PULSE 83; PULSE 86; RESP 18; TEMP 98.7; O2SAT 97
[2016-06-25] MEDS: CINACALCET HYDROCHLORIDE 30 MG TAB PO SCH (09:00)
[2016-06-25] MEDS: INSULIN DETEMIR 100 UNITS/ML VIAL SQ SCH ×2 (09:00→20:12)
[2016-06-25] MEDS: SEVELAMER CARBONATE 800 MG TAB PO SCH ×3 (09:00→18:00)
[2016-06-25] MEDS: COLLAGENASE OINT 30 GM TUBE EXT SCH (09:00)
[2016-06-25] MEDS: POVIDONE IODINE 10% SOLN 118 ML BOTTLE TOP SCH (09:00)
[2016-06-25] MEDS: SODIUM HYPOCHLORITE 0.25% 500 ML BTL TOPICAL SCH (09:00)
[2016-06-25] MEDS: SODIUM CHLORIDE 0.9% FLUSH 5 ML FLUSH FLUSH SCH ×2 (09:00→20:13)
[2016-06-25] MEDS: POLYETHYLENE GLYCOL 17 GM PKG PO SCH (09:00)
[2016-06-25] MEDS: HIGH DOSE INSULIN NOVOLOG SUPPLEMENTAL SCALE SQ SCH ×3 (11:00→20:12)
[2016-06-25] MEDS: EPOETIN ALFA 10,000 UNITS/ML VIAL IV PRN (14:21)
[2016-06-25] MEDS: HEPARIN SODIUM - IV 10,000 UNITS/10 ML VIAL PRN (14:21)
[2016-06-25] MEDS: GENTAMICIN SULFATE (DIALYSIS USE ONLY) 20 MG/2 ML VIAL IV PRN (14:21)
[2016-06-25] MEDS: SODIUM THIOSULFATE INJ 12,500 MG in WATER STERILE FOR INJ 100 ML IV PRN (14:22)
[2016-06-25] MEDS: DOCUSATE SODIUM 50 MG/SENNA 8.6 MG TAB PO SCH ×2 (15:41→20:12)
[2016-06-25] MEDS: FLUoxetine HCL 20 MG CAP PO SCH (15:42)
[2016-06-25] MEDS: GABAPENTIN 100 MG CAP PO SCH ×2 (15:42→20:12)
[2016-06-25] MEDS: CALCITRIOL 0.25 MCG CAP PO SCH (15:42)
[2016-06-25] MEDS: ASPIRIN EC 81 MG TABEC PO SCH (15:43)
[2016-06-25 16:00] VITALS: BP 138/68; PULSE 80; RESP 18; TEMP 98; O2SAT 96
[2016-06-25] MEDS ORDERED: ACETAMINOPHEN/HYDROcodone 325 MG/5 MG TAB PO ONE (18:00)
--- NOTE | 2016-06-25 18:06 | HHI.PR ---
Subjective Remarks Patient having severe amount of pain in the abdominal wound after dressing changes, requests a breakthrough lortab. Had a BM today. No bleeding from the wound. Objective Vitals Vital Signs Date Time Temp Pulse Resp B/P Pulse Ox O2 Delivery O2 Flow Rate FiO2 06/25/16 16:00 98.0 80 18 138/68 96 06/25/16 08:00 86 06/25/16 08:00 98.7 83 18 150/67 97 06/25/16 04:00 98.4 78 18 154/71 99 06/25/16 00:00 99.0 81 18 161/74 94 06/24/16 20:00 98.2 88 18 108/51 96 06/24/16 20:00 88 I/O 06/24/16 06/24/16 06/24/16 06/25/16 06/25/16 06/25/16 07:00 15:00 23:00 07:00 15:00 23:00 Intake Total 0 ml 480 ml 240 ml 100 ml Balance 0 ml 480 ml 240 ml 100 ml Intake Oral 0 ml 480 ml 240 ml 100 ml # Voids 0 1 0 0 # Bowel Movements 0 0 0 Result Diagram: 06/24/16 0458 06/23/16 1741 Objective Remarks GENERAL: Pleasant, morbidly obese middle-age female patient. SKIN: Warm and dry. HEAD: Normocephalic. EYES: No scleral icterus. No injection or drainage. NECK: Supple, trachea midline. No JVD or lymphadenopathy. CARDIOVASCULAR: Regular rate and rhythm without murmurs, gallops, or rubs. RESPIRATORY: Breath sounds equal bilaterally. No accessory muscle use. GASTROINTESTINAL: Obese over hanging pannus. Abdomen soft, non-tender, nondistended. dressing in place EXTREMITIES: Chronic pedal edema. NEUROLOGICAL: Awake, alert, and oriented x 3. Non-focal. 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 -Abdominal pannus wounds, with necrosis -greatly appreciate dr. meyers's input -panniculectomy planned later this week -likely friday afternoon - Status post incision and drainage on 05/26/16-->no improvement in wound to date. - Biopsy negative for calciphylaxis -showed venous stasis dermatitis. -wound does bleed occasionally, use pressure, and silver nitrate cautery as needed -pain control with lortab 5 mg q 4 hr as needed, will give extra dose now s/ p dressing change pt having increased pain -Sepsis, resolved -End-stage renal disease with electrolyte abnormalities: On hemodialysis TTS. Nephrology following. -Chronic low back pain, chronic pain syndrome: Continue pain medications, well controlled. Palliative care following, appreciate input. Continue methadone. -Anemia of chronic disease worsened with acute blood loss anemia: S/p transfusion on 06/24/16 as well as erythropoietin by nephrology. Another PRBC transfusion 06/21, hemoglobin 7.8. Closely monitor. transfuse Hbg <7. check CBC in a.m. - Morbid obesity -Hypertension: Blood pressure is fairly well-controlled, clonidine PRN. -Diabetes mellitus: Monitor Accu-Cheks and cover with sliding scale insulin, continue Levemir. -Malnutrition with poor wound healing: Pre-albumin 9. Albumin 1.3. Cashier Wrapper consulted. Assure that patient receives [place] packs BIDas well as Nepro BID. Discussed with Dr. Meyers, who feels the low protein is from the necrosis. -DVT prophylaxis: Subcutaneous heparin. Problem Qualifiers (1) Open wound of abdomen: Qualified Code: S31.109A - Open wound of abdomen, initial encounter Kylee Han MD Jun 25, 2016 18:06
[2016-06-25 20:00] VITALS: BP 148/72; PULSE 91; PULSE 93; RESP 20; TEMP 98.6; O2SAT 99
[2016-06-25] MEDS: ATORVASTATIN 80 MG TAB PO SCH (20:12)
[2016-06-25] MEDS: HYDROmorphone HCL PF 1 MG/ML VIAL IV PUSH PRN (20:19)
[2016-06-26] VITALS: BP 143/55; PULSE 89; RESP 20; TEMP 98.9; O2SAT 96
[2016-06-26] MEDS: ACETAMINOPHEN/HYDROcodone 325 MG/10 MG TAB PO PRN ×5 (00:09→22:00)
[2016-06-26 05:00] VITALS: BP 148/67; PULSE 81; RESP 20; TEMP 98.5; O2SAT 95
[2016-06-26] MEDS: LEVOTHYROXINE SODIUM 150 MCG TAB PO SCH (05:24)
[2016-06-26] MEDS: METHADONE HCL 10 MG TAB PO SCH ×4 (05:24→22:14)
[2016-06-26] MEDS: HEPARIN SODIUM - SQ 10,000 UNITS/ML VIAL SQ SCH ×2 (05:25→17:38)
[2016-06-26] MEDS: HIGH DOSE INSULIN NOVOLOG SUPPLEMENTAL SCALE SQ SCH ×4 (05:25→21:00)
[2016-06-26 07:28] LABS: AUTOMATED NEUTROPHIL # 9.5 TH/MM3 (1.8-7.7); BASOPHIL # 0.1 TH/MM3 (0-0.2); BASOPHIL % 0.8 % (0.0-2.0); EOSINOPHIL # 0.2 TH/MM3 (0-0.4); EOSINOPHIL % 1.9 % (0.0-4.0); HEMATOCRIT 22.7 % (35.0-46.0); HEMO FLAGS DIFF FINAL; LYMPHOCYTE # 1.6 TH/MM3 (1.0-4.8); MEAN CELL VOLUME 83.6 FL (80.0-100.0); MEAN CORPUSCULAR HEMOGLOBIN 25.8 PG (27.0-34.0); MEAN CORPUSCULAR HGB CONC 30.9 % (32.0-36.0); MONO % 6.1 % (0.0-8.0); NEUT % 78.2 % (16.0-70.0); PLATELET COUNT 380 TH/MM3 (150-450); RED BLOOD COUNT 2.72 MIL/MM3 (4.00-5.30); RED CELL DISTRIBUTION WIDTH 17.6 % (11.6-17.2); WHITE BLOOD COUNT 12.2 TH/MM3 (4.0-11.0)
[2016-06-26 07:45] LABS: BICARBONATE 29.5 MEQ/L (21.0-32.0); POTASSIUM 3.9 MEQ/L (3.5-5.1)
[2016-06-26 08:00] VITALS: BP 134/84; PULSE 77; RESP 18; TEMP 98.3; O2SAT 94
[2016-06-26] MEDS: COLLAGENASE OINT 30 GM TUBE EXT SCH (09:00)
[2016-06-26] MEDS: SODIUM HYPOCHLORITE 0.25% 500 ML BTL TOPICAL SCH (09:00)
[2016-06-26] MEDS: POVIDONE IODINE 10% SOLN 118 ML BOTTLE TOP SCH (09:00)
[2016-06-26] MEDS: SODIUM CHLORIDE 0.9% FLUSH 5 ML FLUSH FLUSH SCH ×2 (09:00→21:00)
[2016-06-26] MEDS: CALCITRIOL 0.25 MCG CAP PO SCH (09:07)
[2016-06-26] MEDS: CINACALCET HYDROCHLORIDE 30 MG TAB PO SCH (09:07)
[2016-06-26] MEDS: FLUoxetine HCL 20 MG CAP PO SCH (09:07)
[2016-06-26] MEDS: ASPIRIN EC 81 MG TABEC PO SCH (09:07)
[2016-06-26] MEDS: SEVELAMER CARBONATE 800 MG TAB PO SCH ×3 (09:07→17:38)
[2016-06-26] MEDS: DOCUSATE SODIUM 50 MG/SENNA 8.6 MG TAB PO SCH ×2 (09:07→21:00)
[2016-06-26] MEDS: POLYETHYLENE GLYCOL 17 GM PKG PO SCH (09:07)
[2016-06-26] MEDS: GABAPENTIN 100 MG CAP PO SCH ×2 (09:07→22:01)
[2016-06-26] MEDS: INSULIN DETEMIR 100 UNITS/ML VIAL SQ SCH ×2 (09:08→21:00)
--- NOTE | 2016-06-26 11:28 | HHI.NPPN ---
Subjective History of Present Illness 55-year-old female known to me from before with past medical history of diabetes mellitus, history of morbid obesity, end-stage renal disease on hemodialysis three times per week, history of chronic anemia, congestive heart failure, spinal stenosis, chronic back pain, hypothyroidism who came to the hospital with complaint of worsening lower abdominal wound. I was called to see the patient for the management of dialysis. The patient has been on hemodialysis Friday, and Friday. Additional Remarks This is a late entry, note for 06/25/16. Patient is alert, no SOB, has mild abd. pain, clinically same. Review of Systems General Constitutional: Fatigue Respiratory Lungs: SOB Cardiovascular Cardiac: GRIFFIN Objective Data Data 06/25/16 06/26/16 19:00 07:00 Intake Total 240 ml 600 ml Balance 240 ml 600 ml Intake Oral 240 ml 600 ml # Voids 0 0 # Bowel Movements 1 0 Vital Signs Date Time Temp Pulse Resp B/P Pulse Ox O2 Delivery O2 Flow Rate FiO2 06/26/16 08:00 98.3 77 18 134/84 94 06/26/16 05:00 98.5 81 20 148/67 95 06/26/16 00:00 98.9 89 20 143/55 96 06/25/16 20:00 91 06/25/16 20:00 98.6 93 20 148/72 99 06/25/16 16:00 98.0 80 18 138/68 96 -: 06/26/16 0557 06/26/16 0557 Physical Exam General Appearance: No Acute Distress, Comfortable Eyes Eye Exam: Pupils Equal Throat Throat Exam: Oral Mucosa [place] & Moist Neck Neck Exam: Neck Supple Pulmonary Resp Exam: Breath Sounds Equal, Crackles, Decreased Bases, Diminished Breath Sounds Gastrointestinal/Abdomen GI Exam: Soft, Non-Tender, Distended Extremeties Extremities Exam: Moderate Edema, Pitting Edema, Dependent Edema Neurologic Neuro Exam: Alert, Awake, Oriented Assessment/Plan Assessment Summary: Anemia of CKD, Hypertension, End Stage Renal Disease Problem List: (1) Anemia in chronic kidney disease (CKD) (2) Open wound of abdomen (3) Chronic stasis dermatitis (4) End stage kidney disease Plan Continue the wound care. ID is following. 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 Seen by plastic surgery and had debridement of Rt. buttock area. Also has debridement of abd. wound done. Ongoing anemia, on epogen with HD. Skin Biopsy done, no Calciphylaxis noted. HD done in AM, tolerated well. Follow Hgb and transfuse as needed. Problem Qualifiers (1) Open wound of abdomen: Qualified Code: S31.109A - Open wound of abdomen, initial encounter Valentin Jimenez MD Jun 26, 2016 11:28
[2016-06-26 12:00] VITALS: BP 132/61; PULSE 75; RESP 18; TEMP 98; O2SAT 93
[2016-06-26 16:00] VITALS: BP 180/81; PULSE 89; RESP 18; TEMP 98.5; O2SAT 93
--- NOTE | 2016-06-26 17:22 | HHI.HCPN ---
Reason for visit a. To assist with evaluation and management of symptoms including: follow up on wound pain, anxiety, depression b. To assist medical decision maker(s) with: better understanding of current medical conditions; weighing benefits/burdens of medical treatment options; making medical treatment decisions. Subjective/Interval History Pt seen today to follow-up on comfort, pain level, anxiety, education for upcoming surgery, as well as goals. Evaluate effectiveness of increase in Methadone to 2.5mg QID 06/20. Stable, continues to have some anemia, H&H down to 7.0/22.7 felt to be r/t chronic disease as well as sanguinous drainage from wounds. Pending panniculectomy by Dr. Meyers either or Friday afternoon. Pressure wounds will be evaluated by Dr. Meyers at that time. C/O some significant pain with movement and dressing changes as well as "tailbone" discomfort from sitting. She fell 2 days ago and is no longer able to get OOB. Has Adamant, hydromorphone prn in addition to scheduled methadone. Today patient seen in room, son and friend at bedside. Seen with (EARL Machuca ). She is alert, oriented, pleasant. She is looking forward to her surgery as she feels it will help her get better. She and her son appear to have good understanding, goals remain aggressive she wishes to continue to pursue whatever measures are necessary to help her get better. She c/o significant anxiety but does not want to take Xanax as it "knocks her out" for 6-8 hours. She has been taking Prozac for many years at a low dose and we discussed increasing that to help manage her anxiety. Advance Directives Living Will: Copy in medical record Advance Directive Specifics Date completed: 09/2015 Health Care Surrogate(s): Primary surrogate named as son Moy Foley, secondary Robb Toledo . Objective Vital Signs Date Time Temp Pulse Resp B/P Pulse Ox O2 Delivery O2 Flow Rate FiO2 06/26/16 12:00 98.0 75 18 132/61 93 06/26/16 08:00 98.3 77 18 134/84 94 06/26/16 05:00 98.5 81 20 148/67 95 06/26/16 00:00 98.9 89 20 143/55 96 06/25/16 20:00 91 06/25/16 20:00 98.6 93 20 148/72 99 Intake & Output 06/26/16 06/26/16 07:00 19:00 Intake Total 600 ml 240 ml Balance 600 ml 240 ml Intake Oral 600 ml 240 ml # Voids 0 0 # Bowel Movements 0 0 Physical Exam CONSTITUTIONAL/GENERAL: Obese, chronically ill-appearing female, pleasant, alert oriented TUBES/LINES/DRAINS: Dialysis access right upper chest nearing jugular. PIV RUE. SKIN: Abdominal wounds, dressed. Bilateral lower extremities with significant hyperkeratotic skin thickening . Skin temperature warm. CARDIOVASCULAR: Heart sounds regular, heart sounds distant. 2/6 systolic ejection murmur heard best at LSB. Significant lymphedema to lower extremities , unable to palpate pedal pulses, palpable radial pulses RESPIRATORY/CHEST: Symmetric, unlabored respirations on room air. Clear to auscultation. Decreased air movement throughout. GASTROINTESTINAL: Abdomen obese, areas of firmness. + tender. Bowel sounds present. Limited abdominal exam due to body habitus, several large wounds noted : Right Abdomen w dressing intact, rt hip with dressing intact. Unable to visualize 2/2 to dressings. Reported wound to buttocks not visualized. NEUROLOGICAL: Awake and alert, oriented x3 appropriate, appears to have good insight. Moves all 4 extremities with generalized weakness, recent fall. PSYCHIATRIC: anxious at times. Diagnostic Tests Laboratory Laboratory Tests Test 06/23/16 06/23/16 06/24/16 06/26/16 17:41 21:14 04:58 05:57 White Blood Count 14.0 TH/MM3 13.9 TH/MM3 12.2 TH/MM3 (4.0-11.0) (4.0-11.0) (4.0-11.0) Red Blood Count 3.01 MIL/MM3 3.01 MIL/MM3 2.72 MIL/MM3 (4.00-5.30) (4.00-5.30) (4.00-5.30) Hemoglobin 7.7 GM/DL 8.0 GM/DL 7.0 GM/DL (11.6-15.3) (11.6-15.3) (11.6-15.3) Hematocrit 24.5 % 24.9 % 22.7 % (35.0-46.0) (35.0-46.0) (35.0-46.0) Mean Corpuscular Volume 81.3 FL 82.9 FL 83.6 FL (80.0-100.0) (80.0-100.0) (80.0-100.0) Mean Corpuscular Hemoglobin 25.5 PG 26.5 PG 25.8 PG (27.0-34.0) (27.0-34.0) (27.0-34.0) Mean Corpuscular Hemoglobin 31.4 % 31.9 % 30.9 % Concent (32.0-36.0) (32.0-36.0) (32.0-36.0) Red Cell Distribution Width 18.2 % 17.4 % 17.6 % (11.6-17.2) (11.6-17.2) (11.6-17.2) Platelet Count 499 TH/MM3 415 TH/MM3 380 TH/MM3 (150-450) (150-450) (150-450) Mean Platelet Volume 6.6 FL 6.6 FL 6.8 FL (7.0-11.0) (7.0-11.0) (7.0-11.0) Neutrophils (%) (Auto) 80.2 % 76.1 % 78.2 % (16.0-70.0) (16.0-70.0) (16.0-70.0) Lymphocytes (%) (Auto) 11.1 % 15.2 % 13.0 % (9.0-44.0) (9.0-44.0) (9.0-44.0) Monocytes (%) (Auto) 5.7 % (0.0-8.0) 5.9 % (0.0-8.0) 6.1 % (0.0-8.0) Eosinophils (%) (Auto) 2.3 % (0.0-4.0) 2.0 % (0.0-4.0) 1.9 % (0.0-4.0) Basophils (%) (Auto) 0.7 % (0.0-2.0) 0.8 % (0.0-2.0) 0.8 % (0.0-2.0) Neutrophils # (Auto) 11.2 TH/MM3 10.6 TH/MM3 9.5 TH/MM3 (1.8-7.7) (1.8-7.7) (1.8-7.7) Lymphocytes # (Auto) 1.6 TH/MM3 2.1 TH/MM3 1.6 TH/MM3 (1.0-4.8) (1.0-4.8) (1.0-4.8) Monocytes # (Auto) 0.8 TH/MM3 0.8 TH/MM3 0.7 TH/MM3 (0-0.9) (0-0.9) (0-0.9) Eosinophils # (Auto) 0.3 TH/MM3 0.3 TH/MM3 0.2 TH/MM3 (0-0.4) (0-0.4) (0-0.4) Basophils # (Auto) 0.1 TH/MM3 0.1 TH/MM3 0.1 TH/MM3 (0-0.2) (0-0.2) (0-0.2) CBC Comment DIFF FINAL DIFF FINAL DIFF FINAL Differential Comment Sodium Level 135 MEQ/L 136 MEQ/L (136-145) (136-145) Potassium Level 4.2 MEQ/L 3.9 MEQ/L (3.5-5.1) (3.5-5.1) Chloride Level 93 MEQ/L 94 MEQ/L (98-107) (98-107) Carbon Dioxide Level 30.1 MEQ/L 29.5 MEQ/L (21.0-32.0) (21.0-32.0) Anion Gap 12 MEQ/L (5-15) 13 MEQ/L (5-15) Blood Urea Nitrogen 43 MG/DL (7-18) 47 MG/DL (7-18) Creatinine 5.19 MG/DL 5.25 MG/DL (0.50-1.00) (0.50-1.00) Estimat Glomerular Filtration 9 ML/MIN (>89) 8 ML/MIN (>89) Rate Random Glucose 121 MG/DL 154 MG/DL (74-106) (74-106) Calcium Level 8.3 MG/DL 8.4 MG/DL (8.5-10.1) (8.5-10.1) Blood Type O POSITIVE Antibody Screen NEGATIVE Crossmatch Leukocyte-Reduced Red Blood Cells Blood Bank Comment Result Diagram: 06/26/16 0557 06/26/16 0557 Procedures * 05/17I&D done by Dr. Johnson--->> overall area of excision approximately 25 cm x 10 cm vertical, at a depth of 6-8 cm. * 05/26 to OR for repeat I&D Assessment and Plan Disease Oriented Problem List: (1) Hypertension, benign (2) Pseudomonas aeruginosa infection (3) Symptomatic anemia (4) Anemia in chronic kidney disease (CKD) (5) End stage renal disease on dialysis (6) Anxiety (7) Asterixis (8) Sepsis (9) Diabetes (10) Chronic back pain Symptom Scale: (1) Anxiety 0-10 Scale: Unable to quantify (2) Depression 0-10 Scale: Unable to quantify (3) Malnutrition 0-10 Scale: Unable to quantify (4) Pain 0-10 Scale: 10 Pertinent Non-Medical Issues Psychosocial:Patient , lives at home with her son and significant other. Supported by adult son, sister, sig other, and mother. 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 Originally from [place], lived in [place] for many years on and off. 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 5 wishes directive document completed in 2016 names primary HCS as (son) Moy Foley, secondary as (sig other) Robb Toledo. Ethical issues impacting care: Important Contacts Son Moy Foley- [phone] Prognosis This unfortunate patient was admitted with worsening wounds to the abdomen, which have continued to worsen despite aggressive antibiotic and surgical management. She has multiple chronic medical comorbidities including diabetes, cardiovascular disease and end-stage renal failure dependent on dialysis. 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 She has been initiated on treatment with sodium thiosulfate, which to my understanding the impact on overall survival rates is not yet known. Given her overall compromised state she remains high risk for further complications and setbacks. She is scheduled for panniculectomy this week. Her pain has been ranging from 7-10 and she has been requesting PRN Adamant approximately Q4H in addition to scheduled Methadone 2.5 mg Q6H. Her pain has consistently been in the 8-10 range and has required IV dilaudid for breakthrough above the norco. Methadone will be increased to 5 mg Q8H today (06/26). Code Status: Full Code Plan * Legal decision maker: Patient is currently able to make her own decisions. She has documents naming her son is primary decision-maker should she become incapacitated. Her significant other is named as secondary. * Goals: Patient's goals are aggressive, she wishes to continue whatever therapies are recommended to help her overall improvement and long-term prognosis. Hospice has been previously discussed but she is not ready to transition to comfort measures only. She is in agreement today to increase her methadone dosing for better pain control. She has also agreed to increasing her prozac dose for her anxiety. * CODE STATUS: Full code * SYMPTOMS: --Pain-ongoing chronic back pain related to prior injury, previously well controlled with Adamant use in the home. C/O significant pain with movement and dressing changes. Pt had been on long acting morphine, which was discontinued due to lethargy, requiring reversal with narcan. Given her renal insufficiency, methadone or fentanyl would be the better option.She has not had lethargy with methadone and this will be increased from 2.5 mg po Q6H to 5 mg po Q8H --anxiety- few episodes of anxiety feels "panicked" during hospital course- has 0.125 MG xanax available, makes her very sedated. Will increase dose of her Prozac from 20 mg to 30 mg and monitor response. -- depression- situational, patient with multiple chronic comorbid medical conditions-exploration with patient use of antidepressant for long-term assistance with depression related to long-term disease process. She is currently on Prozac 20 mg daily and this will be uptitrated for better anxiety and depression control. --Malnutritionchronic. Albumin 1.3, Prealbumin 9. Poor appetite, son brings her food, but she eats little. [place] to be impacting wound healing. Taking Nepro supplements. Continue to evaluate. * Palliative care will continue to follow during hospital course as condition evolves, to assist patient/decision-maker with understanding of medical conditions, weighing benefits/burdens of treatment options, for clarification of goals of treatment. Additionally will assist with any symptoms of palliative concern. Attestation To help prompt me to consider important information that might be impacting today's encounter and assessment, information from prior notes written by myself or my colleagues may have been "brought forward" into today's note. My signature on this note, however, is an attestation that I personally performed the exam, history, and/or decision-making noted today, and, unless otherwise indicated, the interactions with patient, family, and staff as well as the review of records all occurred today. I also attest that the listed assessment and stated plan reflect my best clinical judgment today based on the combination of historical information, prior notes, and today's exam/ interactions. When time spent is documented, it refers only to time spent today by the signer, or if indicated, combined time spent today by collaborating physician/nurse practitioner. Criss Owens [facility] Jun 26, 2016 17:22
--- NOTE | 2016-06-26 19:03 | HHI.NPPN ---
Subjective History of Present Illness 55-year-old female known to me from before with past medical history of diabetes mellitus, history of morbid obesity, end-stage renal disease on hemodialysis three times per week, history of chronic anemia, congestive heart failure, spinal stenosis, chronic back pain, hypothyroidism who came to the hospital with complaint of worsening lower abdominal wound. I was called to see the patient for the management of dialysis. The patient has been on hemodialysis Friday, and Friday. Additional Remarks Patient is alert, no SOB, has abd. pain, and also pain in back. Review of Systems General Constitutional: Fatigue Respiratory Lungs: SOB Cardiovascular Cardiac: GRIFFIN Objective Data Data 06/25/16 06/26/16 19:00 07:00 Intake Total 240 ml 600 ml Balance 240 ml 600 ml Intake Oral 240 ml 600 ml # Voids 0 0 # Bowel Movements 1 0 Vital Signs Date Time Temp Pulse Resp B/P Pulse Ox O2 Delivery O2 Flow Rate FiO2 06/26/16 16:00 98.5 89 18 180/81 93 06/26/16 12:00 98.0 75 18 132/61 93 06/26/16 08:00 98.3 77 18 134/84 94 06/26/16 05:00 98.5 81 20 148/67 95 06/26/16 00:00 98.9 89 20 143/55 96 06/25/16 20:00 91 06/25/16 20:00 98.6 93 20 148/72 99 -: 06/26/16 0557 06/26/16 0557 Physical Exam General Appearance: No Acute Distress, Comfortable Eyes Eye Exam: Pupils Equal Throat Throat Exam: Oral Mucosa [place] & Moist Neck Neck Exam: Neck Supple Pulmonary Resp Exam: Breath Sounds Equal, Crackles, Decreased Bases, Diminished Breath Sounds Gastrointestinal/Abdomen GI Exam: Soft, Non-Tender, Distended Extremeties Extremities Exam: Moderate Edema, Pitting Edema, Dependent Edema Neurologic Neuro Exam: Alert, Awake, Oriented Assessment/Plan Assessment Summary: Anemia of CKD, Hypertension, End Stage Renal Disease Problem List: (1) Anemia in chronic kidney disease (CKD) (2) Open wound of abdomen (3) Chronic stasis dermatitis (4) End stage kidney disease Plan Continue the wound care. ID is following. 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 Seen by plastic surgery and had debridement of Rt. buttock area. Also has debridement of abd. wound done. Ongoing anemia, on epogen with HD. Skin Biopsy done, no Calciphylaxis noted. Hgb. is low, transfuse as needed. Will need another surgery for debridement, possibly tomorrow or Fri. HD is due in AM. Problem Qualifiers (1) Open wound of abdomen: Qualified Code: S31.109A - Open wound of abdomen, initial encounter Valentin Jimenez MD Jun 26, 2016 19:03
[2016-06-26 20:00] VITALS: BP 153/65; PULSE 84; PULSE 90; RESP 20; TEMP 99.9; O2SAT 92
[2016-06-26] MEDS ORDERED: FUROSEMIDE 20 MG/2 ML VIAL IV ONE (20:30)
[2016-06-26] MEDS ORDERED: diphenhydrAMINE HCL 25 MG CAP PO PRN (20:30)
[2016-06-26] MEDS ORDERED: SODIUM CHLOR 0.9% 250 ML INJ 250 ML IV ONE (20:30)
--- NOTE | 2016-06-26 21:05 | HHI.PR ---
Subjective Remarks Having pain in the lower back. Objective Vitals Vital Signs Date Time Temp Pulse Resp B/P Pulse Ox O2 Delivery O2 Flow Rate FiO2 06/26/16 16:00 98.5 89 18 180/81 93 06/26/16 12:00 98.0 75 18 132/61 93 06/26/16 08:00 98.3 77 18 134/84 94 06/26/16 05:00 98.5 81 20 148/67 95 06/26/16 00:00 98.9 89 20 143/55 96 I/O 06/25/16 06/25/16 06/25/16 06/26/16 06/26/16 06/26/16 07:00 15:00 23:00 07:00 15:00 23:00 Intake Total 100 ml 240 ml 480 ml 120 ml 240 ml Balance 100 ml 240 ml 480 ml 120 ml 240 ml Intake Oral 100 ml 240 ml 480 ml 120 ml 240 ml # Voids 0 0 0 0 # Bowel Movements 0 1 0 0 Result Diagram: 06/26/16 0557 06/26/16 0557 Objective Remarks GENERAL: Pleasant, morbidly obese middle-age female patient. SKIN: Warm and dry. HEAD: Normocephalic. EYES: No scleral icterus. No injection or drainage. NECK: Supple, trachea midline. No JVD or lymphadenopathy. CARDIOVASCULAR: Regular rate and rhythm without murmurs, gallops, or rubs. RESPIRATORY: Breath sounds equal bilaterally. No accessory muscle use. GASTROINTESTINAL: Obese over hanging pannus. Abdomen soft, non-tender, nondistended. dressing in place EXTREMITIES: Chronic pedal edema. NEUROLOGICAL: Awake, alert, and oriented x 3. Non-focal. 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 -Abdominal pannus wounds, with necrosis -greatly appreciate dr. meyers's input -panniculectomy planned later this week -likely friday afternoon - Status post incision and drainage on 05/26/16-->no improvement in wound to date. - Biopsy negative for calciphylaxis -showed venous stasis dermatitis. -wound does bleed occasionally, use pressure, and silver nitrate cautery as needed -pain control with lortab 5 mg q 4 hr as needed, will give extra dose now s/ p dressing change pt having increased pain -Sepsis, resolved -End-stage renal disease with electrolyte abnormalities: On hemodialysis TTS. Nephrology following. -Chronic low back pain, chronic pain syndrome: Continue pain medications, well controlled. Palliative care following, appreciate input. Continue methadone. -Anemia of chronic disease worsened with acute blood loss anemia: S/p transfusion on 06/24/16 as well as erythropoietin by nephrology. Another PRBC transfusion 06/21, hemoglobin 7.8. Closely monitor. transfuse Hbg <7. check CBC in a.m. - Morbid obesity -Hypertension: Blood pressure is fairly well-controlled, clonidine PRN. -Diabetes mellitus: Monitor Accu-Cheks and cover with sliding scale insulin, continue Levemir. -Malnutrition with poor wound healing: Pre-albumin 9. Albumin 1.3. Release Manager consulted. Assure that patient receives Enrico packs BIDas well as Nepro BID. Discussed with Dr. Meyers, who feels the low protein is from the necrosis. -DVT prophylaxis: Subcutaneous heparin. Problem Qualifiers (1) Open wound of abdomen: Qualified Code: S31.109A - Open wound of abdomen, initial encounter Kylee Han MD Jun 26, 2016 21:05
[2016-06-26] MEDS: ATORVASTATIN 80 MG TAB PO SCH (22:01)
[2016-06-27] VITALS (8 sets, daily range): BP systolic 118–151; BP diastolic 55–67; PULSE 68–102; RESP 16–20; TEMP 98.4–99.6; O2SAT 93–98
[2016-06-27] MEDS: HYDROmorphone HCL PF 1 MG/ML VIAL IV PUSH PRN ×2 (00:31→07:39)
[2016-06-27] MEDS: LEVOTHYROXINE SODIUM 150 MCG TAB PO SCH (06:08)
[2016-06-27] MEDS: METHADONE HCL 10 MG TAB PO SCH ×3 (06:08→21:25)
[2016-06-27] MEDS: HEPARIN SODIUM - SQ 10,000 UNITS/ML VIAL SQ SCH ×2 (06:08→16:00)
[2016-06-27] MEDS: HIGH DOSE INSULIN NOVOLOG SUPPLEMENTAL SCALE SQ SCH ×3 (06:11→21:00)
[2016-06-27] MEDS: CINACALCET HYDROCHLORIDE 30 MG TAB PO SCH (09:00)
[2016-06-27] MEDS: COLLAGENASE OINT 30 GM TUBE EXT SCH (09:00)
[2016-06-27] MEDS: POVIDONE IODINE 10% SOLN 118 ML BOTTLE TOP SCH (09:00)
[2016-06-27] MEDS: CALCITRIOL 0.25 MCG CAP PO SCH (09:00)
[2016-06-27] MEDS: DOCUSATE SODIUM 50 MG/SENNA 8.6 MG TAB PO SCH ×3 (09:00→21:24)
[2016-06-27] MEDS: SODIUM HYPOCHLORITE 0.25% 500 ML BTL TOPICAL SCH (09:00)
[2016-06-27] MEDS: INSULIN DETEMIR 100 UNITS/ML VIAL SQ SCH ×2 (09:00→21:26)
[2016-06-27] MEDS: ASPIRIN EC 81 MG TABEC PO SCH (09:00)
[2016-06-27] MEDS: FLUoxetine HCL 10 MG CAP PO SCH (09:00)
[2016-06-27] MEDS: POLYETHYLENE GLYCOL 17 GM PKG PO SCH (09:00)
[2016-06-27] MEDS: SEVELAMER CARBONATE 800 MG TAB PO SCH ×3 (09:00→18:00)
[2016-06-27] MEDS: GABAPENTIN 100 MG CAP PO SCH ×2 (09:00→21:24)
[2016-06-27] MEDS: ACETAMINOPHEN/HYDROcodone 325 MG/10 MG TAB PO PRN ×2 (10:51→20:10)
--- NOTE | 2016-06-27 14:07 | PD.PLAS.PN ---
Subjective Remarks Patient lying comfortably. Objective Vital Signs Date Time Temp Pulse Resp B/P Pulse Ox O2 Delivery O2 Flow Rate FiO2 06/27/16 06:05 99.0 68 18 141/67 96 06/27/16 05:52 99.3 93 16 138/65 97 06/27/16 04:00 99.6 90 20 145/62 96 06/27/16 00:00 Room Air 06/27/16 00:00 99.5 84 18 151/65 93 06/26/16 20:00 90 06/26/16 20:00 99.9 84 20 153/65 92 06/26/16 20:00 Room Air 06/26/16 16:00 98.5 89 18 180/81 93 I/O 06/26/16 06/26/16 06/26/16 06/27/16 06/27/16 06/27/16 07:00 15:00 23:00 07:00 15:00 23:00 Intake Total 120 ml 240 ml 240 ml 0 ml Output Total 0 ml Balance 120 ml 240 ml 240 ml 0 ml Intake Oral 120 ml 240 ml 240 ml 0 ml Output Urine Total 0 ml # Voids 0 0 # Bowel Movements 0 0 0 Laboratory Tests Test 06/27/16 00:03 Blood Type O POSITIVE Antibody Screen NEGATIVE Crossmatch Leukocyte-Reduced Red Blood Cells Blood Bank Comment Result Diagram: 06/26/16 0557 06/26/16 0557 Exam Findings Patient is lying comfortably in bed. Wounds are not examined during today's visit. Assessment and Plan Diagnosis: (1) Open wound of abdomen Assessment and Plan The patient is planning to proceed with surgery for panniculectomy. The procedure is discussed as are risks, complications, and postoperative course. The patient's questions are answered. She is scheduled for surgery for 1pm on . Dana Romero Jun 27, 2016 14:07
--- NOTE | 2016-06-27 17:07 | HHI.PR ---
Subjective Remarks Follow up for abdominal wound. Seen during HD. The patient feels tired today, otherwise no acute complaints. Plan is for panniculectomy tomorrow. Objective Vitals Vital Signs Date Time Temp Pulse Resp B/P Pulse Ox O2 Delivery O2 Flow Rate FiO2 06/27/16 12:00 98.5 85 16 118/55 96 06/27/16 08:00 98.4 91 18 142/65 96 06/27/16 06:05 99.0 68 18 141/67 96 06/27/16 05:52 99.3 93 16 138/65 97 06/27/16 04:00 99.6 90 20 145/62 96 06/27/16 00:00 Room Air 06/27/16 00:00 99.5 84 18 151/65 93 06/26/16 20:00 90 06/26/16 20:00 99.9 84 20 153/65 92 06/26/16 20:00 Room Air I/O 06/26/16 06/26/16 06/26/16 06/27/16 06/27/16 06/27/16 07:00 15:00 23:00 07:00 15:00 23:00 Intake Total 120 ml 240 ml 240 ml 0 ml 360 ml Output Total 0 ml Balance 120 ml 240 ml 240 ml 0 ml 360 ml Intake Oral 120 ml 240 ml 240 ml 0 ml 360 ml Output Urine Total 0 ml # Voids 0 0 1 # Bowel Movements 0 0 0 1 Result Diagram: 06/26/16 0557 06/26/16 0557 Objective Remarks GENERAL: Well-developed well-nourished. Morbidly obese. In no acute distress. SKIN: Warm and dry. Palate abdominal wall wound. HEENT: Normocephalic. Pupils equal and round. Mucous membranes pink and moist. CARDIOVASCULAR: Regular rate and rhythm. No murmur appreciated. RESPIRATORY: No accessory muscle use. Clear to auscultation. Breath sounds equal bilaterally. GASTROINTESTINAL: Abdomen soft, non-tender, nondistended. Bowel sounds x4. MUSCULOSKELETAL: No obvious deformities. Chronic nonpitting edema. NEUROLOGICAL: Awake and alert. No focal neurological deficits. Moves upper and lower extremities spontaneously. Normal speech. PSYCHIATRIC: Appropriate mood and affect; insight and judgment normal. 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 -Abdominal pannus wounds, with necrosis -greatly appreciate dr. Meyers's input, panniculectomy planned for 06/28 - Status post incision and drainage on 05/26/16-->no improvement in wound to date. - Biopsy negative for calciphylaxis -showed venous stasis dermatitis. -wound does bleed occasionally, use pressure, and silver nitrate cautery as needed -pain control with lortab 5 mg q 4 hr as needed, will give extra dose now s/ p dressing change pt having increased pain -Anemia of chronic disease worsened with acute blood loss anemia: S/p transfusion on 06/24/16 as well as erythropoietin by nephrology. Another PRBC transfusion 06/21. Closely monitor. Transfuse if indicated. Hemoglobin 7.0 on with 2 units PRBCs ordered and transfusing today. Additional blood ordered on hold for surgery tomorrow. Follow-up labs in the a.m. -Sepsis, resolved -End-stage renal disease with electrolyte abnormalities: On hemodialysis TTS. Nephrology following. -Chronic low back pain, chronic pain syndrome: Continue pain medications, well controlled. Palliative care following, appreciate input. Continue methadone. - Morbid obesity -Hypertension: Blood pressure is fairly well-controlled, clonidine PRN. -Diabetes mellitus: Monitor Accu-Cheks and cover with sliding scale insulin, continue Levemir. -Malnutrition with poor wound healing: Pre-albumin 9. Albumin 1.3. Wrapper Caser consulted. Assure that patient receives Enrico packs BID as well as Nepro BID. Previous discussion with Dr. Meyers, who feels the low protein is from the necrosis. -DVT prophylaxis: Subcutaneous heparin. Discussed with Dr. Han. Problem Qualifiers (1) Open wound of abdomen: Qualified Code: S31.109A - Open wound of abdomen, initial encounter Joel Zhou Jun 27, 2016 17:07
[2016-06-27] MEDS: HEPARIN SODIUM - IV 10,000 UNITS/10 ML VIAL PRN (18:04)
[2016-06-27] MEDS: GENTAMICIN SULFATE (DIALYSIS USE ONLY) 20 MG/2 ML VIAL IV PRN (18:05)
[2016-06-27] MEDS: EPOETIN ALFA 10,000 UNITS/ML VIAL IV PRN (18:05)
[2016-06-27] MEDS: SODIUM THIOSULFATE INJ 12,500 MG in WATER STERILE FOR INJ 100 ML IV PRN (18:06)
--- NOTE | 2016-06-27 19:36 | HHI.NPPN ---
Subjective History of Present Illness 55-year-old female known to me from before with past medical history of diabetes mellitus, history of morbid obesity, end-stage renal disease on hemodialysis three times per week, history of chronic anemia, congestive heart failure, spinal stenosis, chronic back pain, hypothyroidism who came to the hospital with complaint of worsening lower abdominal wound. I was called to see the patient for the management of dialysis. The patient has been on hemodialysis Friday, and Friday. Additional Remarks Patient is alert, no SOB, has abd. pain, and also pain in back. Review of Systems General Constitutional: Fatigue Respiratory Lungs: SOB Cardiovascular Cardiac: GRIFFIN Objective Data Data 06/26/16 06/27/16 19:00 07:00 Intake Total 240 ml 240 ml Output Total 0 ml Balance 240 ml 240 ml Intake Oral 240 ml 240 ml Output Urine Total 0 ml # Voids 0 0 # Bowel Movements 0 0 Vital Signs Date Time Temp Pulse Resp B/P Pulse Ox O2 Delivery O2 Flow Rate FiO2 06/27/16 12:00 98.5 85 16 118/55 96 06/27/16 08:00 98.4 91 18 142/65 96 06/27/16 06:05 99.0 68 18 141/67 96 06/27/16 05:52 99.3 93 16 138/65 97 06/27/16 04:00 99.6 90 20 145/62 96 06/27/16 00:00 Room Air 06/27/16 00:00 99.5 84 18 151/65 93 06/26/16 20:00 90 06/26/16 20:00 99.9 84 20 153/65 92 06/26/16 20:00 Room Air -: 06/26/16 0557 06/26/16 0557 Physical Exam General Appearance: No Acute Distress, Comfortable Eyes Eye Exam: Pupils Equal Throat Throat Exam: Oral Mucosa [place] & Moist Neck Neck Exam: Neck Supple Pulmonary Resp Exam: Breath Sounds Equal, Crackles, Decreased Bases, Diminished Breath Sounds Gastrointestinal/Abdomen GI Exam: Soft, Non-Tender, Distended Extremeties Extremities Exam: Moderate Edema, Pitting Edema, Dependent Edema Neurologic Neuro Exam: Alert, Awake, Oriented Assessment/Plan Assessment Summary: Anemia of CKD, Hypertension, End Stage Renal Disease Problem List: (1) Anemia in chronic kidney disease (CKD) (2) Open wound of abdomen (3) Chronic stasis dermatitis (4) End stage kidney disease Plan Continue the wound care. ID is following. 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 Seen by plastic surgery and had debridement of Rt. buttock area. Also has debridement of abd. wound done. Ongoing anemia, on epogen with HD. Skin Biopsy done, no Calciphylaxis noted. Hgb. is low, transfuse as needed. Will need another surgery for debridement, possibly tomorrow or Fri. HD is due in AM. Problem Qualifiers (1) Open wound of abdomen: Qualified Code: S31.109A - Open wound of abdomen, initial encounter Valentin Jimenez MD Jun 27, 2016 19:36
[2016-06-27] MEDS: SODIUM CHLORIDE 0.9% FLUSH 5 ML FLUSH FLUSH SCH (21:00)
[2016-06-27] MEDS: ATORVASTATIN 80 MG TAB PO SCH (21:25)
[2016-06-27 22:55] LABS: HEMATOCRIT 24.8 % (35.0-46.0); REVIEW FLAG FINAL
[2016-06-28] VITALS: BP 151/71; PULSE 87; RESP 20; TEMP 98.2; O2SAT 94
[2016-06-28 04:00] VITALS: BP 142/72; PULSE 88; RESP 20; TEMP 97.9; O2SAT 93
[2016-06-28] MEDS: LEVOTHYROXINE SODIUM 150 MCG TAB PO SCH (05:46)
[2016-06-28] MEDS: HIGH DOSE INSULIN NOVOLOG SUPPLEMENTAL SCALE SQ SCH ×4 (05:47→22:00)
[2016-06-28] MEDS: METHADONE HCL 10 MG TAB PO SCH ×4 (05:47→22:00)
[2016-06-28] MEDS: ACETAMINOPHEN/HYDROcodone 325 MG/10 MG TAB PO PRN ×2 (06:58→16:55)
[2016-06-28 07:20] LABS: AUTOMATED NEUTROPHIL # 9.8 TH/MM3 (1.8-7.7); BASOPHIL # 0.1 TH/MM3 (0-0.2); BASOPHIL % 0.7 % (0.0-2.0); EOSINOPHIL # 0.2 TH/MM3 (0-0.4); EOSINOPHIL % 1.8 % (0.0-4.0); HEMATOCRIT 26.8 % (35.0-46.0); HEMO FLAGS DIFF FINAL; LYMPHOCYTE # 1.7 TH/MM3 (1.0-4.8); MEAN CELL VOLUME 82.4 FL (80.0-100.0); MEAN CORPUSCULAR HEMOGLOBIN 26.2 PG (27.0-34.0); MEAN CORPUSCULAR HGB CONC 31.8 % (32.0-36.0); MONO % 8.4 % (0.0-8.0); NEUT % 76.1 % (16.0-70.0); PLATELET COUNT 432 TH/MM3 (150-450); RED BLOOD COUNT 3.25 MIL/MM3 (4.00-5.30); RED CELL DISTRIBUTION WIDTH 17.4 % (11.6-17.2); WHITE BLOOD COUNT 12.9 TH/MM3 (4.0-11.0)
[2016-06-28 07:48] LABS: BICARBONATE 30.1 MEQ/L (21.0-32.0); POTASSIUM 4.4 MEQ/L (3.5-5.1)
[2016-06-28] MEDS: HYDROmorphone HCL PF 1 MG/ML VIAL IV PUSH PRN ×2 (07:48→22:00)
[2016-06-28 08:00] VITALS: BP 151/67; PULSE 86; PULSE 91; RESP 16; TEMP 99.4; O2SAT 98
[2016-06-28] MEDS ORDERED: SODIUM CHLORID 0.9% 500 ML IV PRN (08:45)
[2016-06-28] MEDS ORDERED: CHLORHEXIDINE GLUCONATE 2 % 1 PACK (2 CLOTHS) TOPICAL PRN (08:45)
[2016-06-28] MEDS ORDERED: INSULIN HUMAN REGULAR 1,000 UNITS/10 ML VIAL SQ PRN (08:45)
[2016-06-28] MEDS ORDERED: POVIDONE IODINE 5% (ANTISEPSIS KIT) 4 APPLICATIONS EACH NARE PRN (08:45)
[2016-06-28] MEDS ORDERED: LACTATED RINGER'S 1000 ML IV PRN (08:45)
[2016-06-28] MEDS ORDERED: METOPROLOL TARTRATE 25 MG TAB PO PRN (08:45)
[2016-06-28] MEDS: POVIDONE IODINE 10% SOLN 118 ML BOTTLE TOP SCH (09:00)
[2016-06-28] MEDS: CINACALCET HYDROCHLORIDE 30 MG TAB PO SCH (09:00)
[2016-06-28] MEDS: INSULIN DETEMIR 100 UNITS/ML VIAL SQ SCH ×2 (09:00→21:00)
[2016-06-28] MEDS: DOCUSATE SODIUM 50 MG/SENNA 8.6 MG TAB PO SCH ×2 (09:00→21:00)
[2016-06-28] MEDS: COLLAGENASE OINT 30 GM TUBE EXT SCH (09:00)
[2016-06-28] MEDS: SEVELAMER CARBONATE 800 MG TAB PO SCH ×3 (09:00→19:25)
[2016-06-28] MEDS: POLYETHYLENE GLYCOL 17 GM PKG PO SCH (09:00)
[2016-06-28] MEDS: SODIUM HYPOCHLORITE 0.25% 500 ML BTL TOPICAL SCH (09:00)
[2016-06-28] MEDS: CALCITRIOL 0.25 MCG CAP PO SCH (09:30)
[2016-06-28] MEDS: ASPIRIN EC 81 MG TABEC PO SCH (09:30)
[2016-06-28] MEDS: GABAPENTIN 100 MG CAP PO SCH ×2 (09:30→21:00)
[2016-06-28] MEDS: FLUoxetine HCL 10 MG CAP PO SCH (09:30)
[2016-06-28 12:00] VITALS: BP 150/67; PULSE 86; RESP 16; TEMP 99.1; O2SAT 96
[2016-06-28] MEDS ORDERED: PHENYLEPH/NS 1000 MCG/10 ML SYR IV ONE (12:00)
[2016-06-28] MEDS ORDERED: NEOSTIGMINE 3 MG/3 ML SYR IV ONE (12:00)
[2016-06-28] MEDS ORDERED: PROPOFOL 200 MG/20 ML AMP IV ONE (12:00)
[2016-06-28] MEDS ORDERED: ONDANSETRON HCL 4 MG/2 ML VIAL IV PUSH ONE (12:00)
[2016-06-28] MEDS ORDERED: EPINEPHrine HCL (1:1000) 1 MG/ML VIAL ONE ×2 (12:42→14:44)
[2016-06-28] MEDS ORDERED: LIDOCAINE HCL 1% 50 ML VIAL ONE ×2 (12:42→14:44)
[2016-06-28] MEDS ORDERED: MIDAZOLAM HCL 2 MG/2 ML VIAL ONE ×3 (13:14→15:14)
[2016-06-28] MEDS ORDERED: MIDAZOLAM HCL 2 MG/2 ML VIAL IV PUSH ONE (13:14)
[2016-06-28] MEDS ORDERED: fentaNYL CITRATE 250 MCG/5 ML AMP ONE (13:28)
[2016-06-28] MEDS ORDERED: ACETAMINOPHEN 1000 MG/100 ML VIAL IV ONE (13:29)
[2016-06-28] MEDS ORDERED: VANCOMYCIN HCL 1000 MG VIAL ONE (14:31)
[2016-06-28] MEDS ORDERED: LEVOFLOXACIN 500 MG PREMIX INJ 100 ML IV ONE (14:32)
[2016-06-28] MEDS ORDERED: LEVOFLOXACIN 250 MG PREMIX INJ 50 ML IV ONE (14:33)
[2016-06-28] MEDS ORDERED: DO NOT ADM ANY ANTICOAGULANT DRUGS PRN (16:10)
--- NOTE | 2016-06-28 16:47 | HHI.PR ---
Immediate Post Op Note Procedure Date: Jun 28, 2016 Pre Op Diagnosis: (1) Chronic stasis dermatitis (2) Nonhealing nonsurgical wound (3) Abdominal wall ulcer Post Op Diagnosis: (1) Abdominal wall ulcer (2) Chronic stasis dermatitis (3) Nonhealing nonsurgical wound Surgeon: Bob Johnson MD Scrubber System Attendant(s): Lisa Meyers M.D., Carlos Segura M.D., Mary Alice Romero PA-C Procedure: Excision of chronic necrotic wounds of abdominal wall. Abdominal panniculectomy of necrotic wounds. Estimated blood loss: 250 mL Anesthesia: General Drains: MELIA (four) PRBC (2 units) Patient to: PACU Patient Condition: Good Date/Time of Procedure: SEE SURGICAL CARE RECORD Lisa Meyers MD Jun 28, 2016 16:47
[2016-06-28 16:54] LABS: HEMATOCRIT 28.5 % (35.0-46.0)
[2016-06-28 16:59] LABS: REVIEW FLAG FINAL
--- NOTE | 2016-06-28 17:05 | HHI.PR ---
Subjective Remarks Follow-up for abdominal wound. Patient seen postoperatively and tachycardia. Her blood pressure is a bit soft currently at 100 systolic. She said she is having moderately severe postoperative pain, she would like to try Lortab. Objective Vitals Vital Signs Date Time Temp Pulse Resp B/P Pulse Ox O2 Delivery O2 Flow Rate FiO2 06/28/16 16:09 98.9 98 16 95/60 99 Nasal Cannula 3 06/28/16 12:00 99.1 86 16 150/67 96 06/28/16 08:00 99.4 91 16 151/67 98 06/28/16 04:00 97.9 88 20 142/72 93 06/28/16 00:00 98.2 87 20 151/71 94 06/27/16 21:00 Room Air 06/27/16 20:02 102 06/27/16 20:00 99.6 98 18 143/64 98 I/O 06/27/16 06/27/16 06/27/16 06/28/16 06/28/16 06/28/16 07:00 15:00 23:00 07:00 15:00 23:00 Intake Total 0 ml 360 ml 850 ml 0 ml 1000 ml Output Total 0 ml 2500 ml 500 ml Balance 0 ml 360 ml -1650 ml 0 ml 500 ml Intake Oral 0 ml 360 ml 600 ml 0 ml Packed Cells 250 ml 500 ml Other 500 ml Output Urine Total 0 ml Hemodialysis 2500 ml Estimated Blood Loss 500 ml # Voids 1 1 1 # Bowel Movements 0 1 0 1 Result Diagram: 06/28/16 1640 06/28/16 0623 Objective Remarks GENERAL: Well-developed well-nourished. Morbidly obese. In no acute distress. SKIN: Warm and dry. Venous stasis changes of the lower extremities. HEENT: Normocephalic. Pupils equal and round. Mucous membranes pink and moist. CARDIOVASCULAR: Regular rate and rhythm. No murmur appreciated. RESPIRATORY: No accessory muscle use. Clear to auscultation. Breath sounds equal bilaterally. GASTROINTESTINAL: Lower abdomen with postoperative dressings and drains in place. Abdomen large, tender. MUSCULOSKELETAL: No obvious deformities. Chronic nonpitting edema. NEUROLOGICAL: Awake and alert. No focal neurological deficits. Moves upper and lower extremities spontaneously. Normal speech. PSYCHIATRIC: Appropriate mood and affect; insight and judgment normal. 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 -Abdominal pannus wounds, with necrosis - Status post incision and drainage on 05/26/16-->no improvement in wound to date. - Biopsy negative for calciphylaxis -showed venous stasis dermatitis. -greatly appreciate dr. Meyers's input, panniculectomy performed 06/28 -pain control with lortab 5 mg q 4 hr as needed -Close observation in ICU postoperatively -Anemia of chronic disease worsened with acute blood loss anemia: S/p transfusion on 06/24/16 as well as erythropoietin by nephrology. Another PRBC transfusion 06/21. Closely monitor. Transfuse if indicated. Received 2 units PRBCs yesterday, blood count improved to 8.5. Given additional 1 unit PRBCs intraoperatively. Check stat H&H postoperatively, hemoglobin currently 9.8. Stable. -Sepsis, resolved -End-stage renal disease with electrolyte abnormalities: On hemodialysis TTS. Nephrology following. -Chronic low back pain, chronic pain syndrome: Continue pain medications, well controlled. Palliative care following, appreciate input. Continue methadone. - Morbid obesity -Hypertension: Blood pressure is fairly well-controlled, clonidine PRN. -Diabetes mellitus: Monitor Accu-Cheks and cover with sliding scale insulin, continue Levemir. -Malnutrition with poor wound healing: Pre-albumin 9. Albumin 1.3. Pipe Manufacture Supervisor consulted. Assure that patient receives [place] packs BID as well as Nepro BID. Previous discussion with Dr. Meyers, who feels the low protein is from the necrosis. -DVT prophylaxis: Subcutaneous heparin. Written by Joel Zhou, acting as scribe for Dr. Han on 06/28/16 at 17:04. Attending Statement This note was transcribed by scribe. I, Dr. Kylee Han personally performed the history, physical exam, and medical decision making; and confirmed the accuracy of the information in the transcribed note. Problem Qualifiers (1) Open wound of abdomen: Qualified Code: S31.109A - Open wound of abdomen, initial encounter Joel Zhou Jun 28, 2016 17:04 Kylee Han MD July 09, 2016 11:15
[2016-06-28] MEDS ORDERED: *HYDROmorphone PF 1 MG VIAL PERIprocedural Use ONLY ONE (17:26)
--- NOTE | 2016-06-28 19:00 | HHI.NPPN ---
Subjective History of Present Illness 55-year-old female known to me from before with past medical history of diabetes mellitus, history of morbid obesity, end-stage renal disease on hemodialysis three times per week, history of chronic anemia, congestive heart failure, spinal stenosis, chronic back pain, hypothyroidism who came to the hospital with complaint of worsening lower abdominal wound. I was called to see the patient for the management of dialysis. The patient has been on hemodialysis Friday, and Friday. Additional Remarks Patient is alert, no SOB, has abd. pain, and also pain in back. Review of Systems General Constitutional: Fatigue Respiratory Lungs: SOB Cardiovascular Cardiac: GRIFFIN Objective Data Data 06/27/16 06/28/16 19:00 07:00 Intake Total 360 ml 850 ml Output Total 2500 ml Balance 360 ml -1650 ml Intake Oral 360 ml 600 ml Packed Cells 250 ml Hemodialysis 2500 ml # Voids 1 2 # Bowel Movements 1 1 Vital Signs Date Time Temp Pulse Resp B/P Pulse Ox O2 Delivery O2 Flow Rate FiO2 06/28/16 18:30 72 12 105/66 99 Nasal Cannula 3 06/28/16 18:00 80 13 99/62 99 Nasal Cannula 3 06/28/16 17:30 82 13 122/67 99 Nasal Cannula 3 06/28/16 17:15 83 12 112/70 99 Nasal Cannula 3 06/28/16 17:00 95 12 100/70 99 Nasal Cannula 3 06/28/16 16:45 100 14 94/63 99 Nasal Cannula 3 06/28/16 16:30 106 13 99/54 99 Nasal Cannula 3 06/28/16 16:15 103 14 85/60 99 Nasal Cannula 3 06/28/16 16:09 98.9 98 16 95/60 99 Nasal Cannula 3 06/28/16 12:00 99.1 86 16 150/67 96 06/28/16 08:00 86 06/28/16 08:00 96 Room Air 21 06/28/16 08:00 99.4 91 16 151/67 98 06/28/16 04:00 97.9 88 20 142/72 93 06/28/16 00:00 98.2 87 20 151/71 94 06/27/16 21:00 Room Air 06/27/16 20:02 102 06/27/16 20:00 99.6 98 18 143/64 98 -: 06/28/16 1640 06/28/16 0623 Physical Exam General Appearance: No Acute Distress, Comfortable Eyes Eye Exam: Pupils Equal Throat Throat Exam: Oral Mucosa [place] & Moist Neck Neck Exam: Neck Supple Pulmonary Resp Exam: Breath Sounds Equal, Crackles, Decreased Bases, Diminished Breath Sounds Gastrointestinal/Abdomen GI Exam: Soft, Non-Tender, Distended Extremeties Extremities Exam: Moderate Edema, Pitting Edema, Dependent Edema Neurologic Neuro Exam: Alert, Awake, Oriented Assessment/Plan Assessment Summary: Anemia of CKD, Hypertension, End Stage Renal Disease Problem List: (1) Anemia in chronic kidney disease (CKD) (2) Open wound of abdomen (3) Chronic stasis dermatitis (4) End stage kidney disease Plan Continue the wound care. ID is following. 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 Seen by plastic surgery and had debridement of Rt. buttock area. Also has debridement of abd. wound done. Ongoing anemia, on epogen with HD. Skin Biopsy done, no Calciphylaxis noted. Hgb. is low, transfuse as needed. Will need another surgery for debridement, possibly tomorrow or Fri. HD is due in AM. Problem Qualifiers (1) Open wound of abdomen: Qualified Code: S31.109A - Open wound of abdomen, initial encounter Valentin Jimenez MD Jun 28, 2016 19:00
[2016-06-28] MEDS: SODIUM CHLORIDE 0.9% FLUSH 5 ML FLUSH FLUSH SCH (21:00)
[2016-06-28] MEDS: ATORVASTATIN 80 MG TAB PO SCH (21:00)
[2016-06-28 22:00] VITALS: BP 120/64; PULSE 77; RESP 14; TEMP 98.7; O2SAT 95
[2016-06-29] VITALS (10 sets, daily range): BP systolic 105–129; BP diastolic 50–60; PULSE 79–96; RESP 13–19; TEMP 98–99.5; O2SAT 92–98
[2016-06-29] MEDS: HYDROmorphone HCL PF 1 MG/ML VIAL IV PUSH PRN ×4 (04:30→20:21)
[2016-06-29 04:56] LABS: AUTOMATED NEUTROPHIL # 18.5 TH/MM3 (1.8-7.7); BASOPHIL # 0.1 TH/MM3 (0-0.2); BASOPHIL % 0.3 % (0.0-2.0); EOSINOPHIL % 0.1 % (0.0-4.0); HEMATOCRIT 27.6 % (35.0-46.0); HEMO FLAGS DIFF FINAL; LYMPHOCYTE # 1.3 TH/MM3 (1.0-4.8); MEAN CELL VOLUME 83.5 FL (80.0-100.0); MEAN CORPUSCULAR HEMOGLOBIN 27.7 PG (27.0-34.0); MEAN CORPUSCULAR HGB CONC 33.2 % (32.0-36.0); MONO % 4.2 % (0.0-8.0); NEUT % 89.4 % (16.0-70.0); PLATELET COUNT 420 TH/MM3 (150-450); RED CELL DISTRIBUTION WIDTH 16.1 % (11.6-17.2); WHITE BLOOD COUNT 20.7 TH/MM3 (4.0-11.0)
[2016-06-29] MEDS: METHADONE HCL 10 MG TAB PO SCH ×3 (05:11→22:17)
[2016-06-29] MEDS: LEVOTHYROXINE SODIUM 150 MCG TAB PO SCH (05:11)
[2016-06-29 05:27] LABS: BICARBONATE 26.9 MEQ/L (21.0-32.0); POTASSIUM 5.4 MEQ/L (3.5-5.1)
[2016-06-29] MEDS: HIGH DOSE INSULIN NOVOLOG SUPPLEMENTAL SCALE SQ SCH ×4 (06:00→20:22)
[2016-06-29] MEDS: CALCITRIOL 0.25 MCG CAP PO SCH (08:52)
[2016-06-29] MEDS: SODIUM CHLORIDE 0.9% FLUSH 5 ML FLUSH FLUSH SCH ×2 (08:52→20:22)
[2016-06-29] MEDS: GABAPENTIN 100 MG CAP PO SCH ×2 (08:52→20:21)
[2016-06-29] MEDS: DOCUSATE SODIUM 50 MG/SENNA 8.6 MG TAB PO SCH ×2 (08:52→20:22)
[2016-06-29] MEDS: SEVELAMER CARBONATE 800 MG TAB PO SCH ×3 (08:53→17:45)
[2016-06-29] MEDS: CINACALCET HYDROCHLORIDE 30 MG TAB PO SCH (08:53)
[2016-06-29] MEDS: ASPIRIN EC 81 MG TABEC PO SCH (08:53)
[2016-06-29] MEDS: POLYETHYLENE GLYCOL 17 GM PKG PO SCH (08:53)
[2016-06-29] MEDS: FLUoxetine HCL 10 MG CAP PO SCH (08:53)
[2016-06-29] MEDS: INSULIN DETEMIR 100 UNITS/ML VIAL SQ SCH ×2 (08:53→20:22)
[2016-06-29] MEDS: COLLAGENASE OINT 30 GM TUBE EXT SCH (08:54)
[2016-06-29] MEDS: POVIDONE IODINE 10% SOLN 118 ML BOTTLE TOP SCH (08:54)
[2016-06-29] MEDS: SODIUM HYPOCHLORITE 0.25% 500 ML BTL TOPICAL SCH (08:54)
[2016-06-29] MEDS: ACETAMINOPHEN/HYDROcodone 325 MG/5 MG TAB PO PRN ×2 (12:20→17:45)
[2016-06-29] MEDS: ALBUMIN HUMAN 25% 25 GM/100 ML BAGP IV PRN (14:10)
[2016-06-29] MEDS: GENTAMICIN SULFATE (DIALYSIS USE ONLY) 20 MG/2 ML VIAL IV PRN (14:11)
[2016-06-29] MEDS: EPOETIN ALFA 10,000 UNITS/ML VIAL IV PRN (14:11)
[2016-06-29] MEDS: HEPARIN SODIUM - IV 10,000 UNITS/10 ML VIAL PRN (14:12)
--- NOTE | 2016-06-29 15:15 | HHI.PR ---
Subjective Remarks This is a pleasant 55 y/o Female who came to Emergency room as we know she has Hypertension DM II, Hyperlipidemia, Chronic back pain, ESRD on Friday, and Friday , presents to the emergency department for evaluation of worsening abdominal wound. The wound worsened for the last six weeks, she has Wound care by Doctor Madden who performed I and D, on multiple opportunities, has wound care twice a day with packing in place, is been feeling weaker, increased drainage and Pain from the wound, as per Doctor Maryanne recommended Surgical management for Surgical debridement, Continue Hemodialysis on and Friday, status post I and D performed by crm specialist. 06/29: Seen in the room and discussed with nurse she is receiving Hemodialysis stable ready [facility] be [facility] given orders for transfer, no nausea, vomit or diarrhea improved her Hypotension. Objective Vital Signs Date Time Temp Pulse Resp B/P Pulse Ox O2 Delivery O2 Flow Rate FiO2 06/29/16 13:23 14 06/29/16 08:51 94 21 06/29/16 08:00 83 06/29/16 07:00 95 Room Air 06/29/16 06:11 15 06/29/16 05:00 14 06/29/16 04:13 94 21 06/29/16 04:00 98.8 80 17 129/60 98 06/29/16 00:00 98.7 79 13 120/57 96 06/28/16 22:00 98.7 77 14 120/64 95 06/28/16 22:00 77 06/28/16 22:00 95 Room Air 06/28/16 20:30 75 12 108/64 99 Nasal Cannula 2 06/28/16 20:00 97.9 80 13 107/65 99 Nasal Cannula 2 06/28/16 19:30 82 13 105/68 99 Nasal Cannula 2 06/28/16 19:00 74 13 108/68 99 Nasal Cannula 2 06/28/16 18:30 72 12 105/66 99 Nasal Cannula 3 06/28/16 18:00 80 13 99/62 99 Nasal Cannula 3 06/28/16 17:30 82 13 122/67 99 Nasal Cannula 3 06/28/16 17:15 83 12 112/70 99 Nasal Cannula 3 06/28/16 17:00 95 12 100/70 99 Nasal Cannula 3 06/28/16 16:45 100 14 94/63 99 Nasal Cannula 3 06/28/16 16:30 106 13 99/54 99 Nasal Cannula 3 06/28/16 16:15 103 14 85/60 99 Nasal Cannula 3 06/28/16 16:09 98.9 98 16 95/60 99 Nasal Cannula 3 I/O 06/28/16 06/28/16 06/28/16 06/29/16 06/29/16 06/29/16 07:00 15:00 23:00 07:00 15:00 23:00 Intake Total 0 ml 1390 ml 420 ml Output Total 540 ml 0 ml Balance 0 ml 850 ml 420 ml Intake Oral 0 ml 390 ml 420 ml IV Total 0 ml Packed Cells 500 ml Other 500 ml Output Urine Total 0 ml 0 ml Drainage Total 40 ml Estimated Blood Loss 500 ml # Voids 1 # Bowel Movements 1 1 Result Diagram: 06/29/16 0416 06/29/16 0416 Imaging Last Impressions Chest X-Ray 06/08/16 0000 Signed Impressions: Service Date/Time: Wednesday, June 08, 2016 19:03 - CONCLUSION: The lungs are clear. No evidence of pneumothorax. Len Benz MD Procedures I and D of Pannus cellulitis. Other Results Laboratory Tests Test 06/27/16 06/27/16 06/29/16 00:03 14:08 04:16 Antibody Screen NEGATIVE Blood Type O POSITIVE Crossmatch Leukocyte-Reduced Red Blood Cells Blood Bank Comment White Blood Count 20.7 TH/MM3 Red Blood Count 3.30 MIL/MM3 Hemoglobin 9.2 GM/DL Hematocrit 27.6 % Mean Corpuscular Volume 83.5 FL Mean Corpuscular Hemoglobin 27.7 PG Mean Corpuscular Hemoglobin 33.2 % Concent Red Cell Distribution Width 16.1 % Platelet Count 420 TH/MM3 Mean Platelet Volume 6.6 FL Neutrophils (%) (Auto) 89.4 % Lymphocytes (%) (Auto) 6.0 % Monocytes (%) (Auto) 4.2 % Eosinophils (%) (Auto) 0.1 % Basophils (%) (Auto) 0.3 % Neutrophils # (Auto) 18.5 TH/MM3 Lymphocytes # (Auto) 1.3 TH/MM3 Monocytes # (Auto) 0.9 TH/MM3 Eosinophils # (Auto) 0.0 TH/MM3 Basophils # (Auto) 0.1 TH/MM3 CBC Comment DIFF FINAL Differential Comment Sodium Level 134 MEQ/L Potassium Level 5.4 MEQ/L Chloride Level 96 MEQ/L Carbon Dioxide Level 26.9 MEQ/L Anion Gap 11 MEQ/L Blood Urea Nitrogen 56 MG/DL Creatinine 5.94 MG/DL Estimat Glomerular Filtration 7 ML/MIN Rate Random Glucose 159 MG/DL Calcium Level 8.1 MG/DL Objective Remarks GENERAL: Morbidly obese. In no acute distress. SKIN: Warm and dry. Venous stasis changes of the lower extremities. HEENT: Normocephalic. Pupils equal and round. Mucous membranes pink and moist. CARDIOVASCULAR: Regular rate and rhythm. No murmur appreciated. RESPIRATORY: No accessory muscle use. Clear to auscultation. Breath sounds equal bilaterally. GASTROINTESTINAL: Lower abdomen with postoperative dressings and drains in place. Abdomen large, tender. MUSCULOSKELETAL: No obvious deformities. Chronic nonpitting edema. NEUROLOGICAL: Awake and alert. No focal neurological deficits. Moves upper and lower extremities spontaneously. Normal speech. PSYCHIATRIC: Appropriate mood and affect; insight and judgment normal. Medications and IVs Current Medications Medications (Trade) Dose Ordered Sig/Soren Route Start Time Stop Time Status Last Admin (Norvasc) 5 mg BID PO 05/14/16 21:00 Hold 05/26/16 21:07 (Ecotrin Ec) 81 mg DAILY PO 05/15/16 09:00 06/29/16 08:53 (Tenormin) 50 mg BID PO 05/14/16 21:00 Hold 05/26/16 21:07 (Lipitor) 80 mg HS PO 05/14/16 21:00 06/28/16 21:00 (Prinivil) 20 mg BID PO 05/14/16 21:00 Hold 05/26/16 21:15 (Rocaltrol) 0.5 mcg DAILY PO 05/15/16 09:00 06/29/16 08:52 (Neurontin) 100 mg BID PO 05/14/16 21:00 06/29/16 08:52 (Synthroid) 300 mcg DAILY@0600 PO 05/15/16 06:00 06/28/16 05:46 (Antivert) 25 mg TID PRN PO 05/14/16 14:15 (NS Flush) 2 ml UNSCH PRN FLUSH 05/14/16 14:30 05/28/16 18:09 (NS Flush) 2 ml BID FLUSH 05/14/16 21:00 06/29/16 08:52 (Zofran Inj) 4 mg Q6H PRN IVP 05/14/16 14:30 06/15/16 07:15 (Reglan Inj) 5 mg Q6H PRN IV PUSH 05/14/16 14:30 06/13/16 21:36 (Dulcolax Supp) 10 mg DAILY PRN WA 05/14/16 14:30 (Heparin Inj) 5,000 units Q12H SQ 05/14/16 16:00 Hold 06/27/16 06:08 Naloxone HCl 0.4 mg 0.4 mg UNSCH PRN IV 05/14/16 14:30 06/10/16 19:16 (NS 1000 ml Inj) 1,000 ml @ 0 mls/hr Q0M PRN IV 05/14/16 14:54 06/18/16 10:13 Heparin Sodium (Porcine) 8000 units 8,000 units UNSCH PRN IVF 05/14/16 15:00 (NS 1000 ml Inj) 1,000 ml @ 0 mls/hr Q0M PRN IV 05/14/16 14:54 05/30/16 09:36 (Mannitol Inj) 12.5 gm UNSCH PRN IV 05/14/16 15:00 (Albumin 25% Inj) 25 gm UNSCH PRN IV 05/14/16 15:00 06/29/16 14:10 (NS Flush) 5 ml UNSCH PRN IVF 05/14/16 15:00 (Heparin Inj) UNSCH PRN .XX 05/14/16 15:00 06/29/16 14:12 (Gentamicin (Dialysis) Inj) 20 mg UNSCH PRN IV 05/14/16 15:00 06/29/16 14:11 (Zofran Inj) 4 mg UNSCH PRN IV 05/14/16 15:00 06/28/16 22:00 (Benadryl) 25 mg UNSCH PRN PO 05/14/16 15:00 (Nitrostat Sl) 0.4 mg UNSCH PRN SL 05/14/16 15:00 (Catapres) 0.1 mg UNSCH PRN PO 05/14/16 15:00 (Epogen Inj) 10,000 units UNSCH PRN IV 05/14/16 15:00 06/29/16 14:11 (Gelfoam 12 Mm/7 Mm Top) 1 foam UNSCH PRN TOP 05/14/16 15:00 (D50w (Vial) Inj) 25 ml UNSCH PRN IV PUSH 05/14/16 18:45 (Glucagon Inj) 1 mg UNSCH PRN OTHER 05/14/16 18:45 (Santyl Oint) 1 applic DAILY EXT 05/17/16 15:00 06/29/16 08:54 (Luciana-Colace) 1 tab BID PO 05/26/16 21:00 06/29/16 08:52 (Sensipar) 30 mg DAILY PO 06/02/16 09:00 06/29/16 08:53 Miscellaneous Information Patient in critical care unit? Ass... Q361D XX 06/02/16 00:15 06/02/16 00:15 (Renvela) 1,600 mg TID PO 06/03/16 13:00 06/29/16 12:20 ([place] 5-325 Mg) 1 tab Q4H PRN PO 06/06/16 17:15 06/29/16 12:20 (Miralax) 17 gm DAILY PO 06/09/16 10:45 06/29/16 08:53 (Xanax) 0.125 mg Q6H PRN PO 06/10/16 09:30 06/24/16 15:11 (Pill Splitter) 1 ea UNSCH PRN OTHER 06/10/16 10:00 (Dakin'S 0.25% Soln) 500 ml DAILY TOPICAL 06/10/16 15:00 06/29/16 08:54 ([place] 10-325 Mg) 1 tab Q4H PRN PO 06/10/16 15:45 06/28/16 16:55 (Dilaudid Pf Inj) 1 mg Q4H PRN IV PUSH 06/10/16 15:45 06/29/16 09:20 (Tylenol) 650 mg Q4H PRN PO 06/10/16 20:30 06/17/16 17:15 (Levemir Inj) 15 units HS SQ 06/22/16 21:00 06/28/16 21:00 (Levemir Inj) 25 units DAILY SQ 06/23/16 09:00 06/29/16 08:53 (Betadine 10% Top Soln) 1 applic DAILY TOP 06/25/16 09:00 06/29/16 08:54 (Dolophine) 5 mg Q8HR PO 06/26/16 22:00 06/29/16 14:17 Fluoxetine HCl 30 mg 30 mg DAILY PO 06/27/16 09:00 06/29/16 08:53 Lactated Ringer's 1,000 ml @ 30 mls/hr Q24H PRN IV 06/28/16 08:45 07/01/16 08:44 (NS 500 ml Inj) 500 ml @ 30 mls/hr [id number] PRN IV 06/28/16 08:45 07/01/16 08:44 Miscellaneous Information ALL NURSING DEPARTME... UNSCH PRN .XX 06/28/16 16:10 06/29/16 16:09 A/P Problem List: (1) Type II diabetes mellitus with neurological manifestations, uncontrolled ICD Code: E11.49 (2) End stage renal disease on dialysis ICD Code: N18.6 (3) Anemia in chronic kidney disease (CKD) ICD Code: N18.9 (4) Open wound of abdomen ICD Code: S31.109A Assessment and Plan 1. Sepsis/Abdominal pannus wound cellulitis and ulcer, consulted General Surgery , started on - Status post incision and drainage on 05/26/16-->no improvement in wound to date. - Biopsy negative for calciphylaxis -showed venous stasis dermatitis. -greatly appreciate dr. Meyers's input, panniculectomy performed 06/28 -pain control with lortab 5 mg q 4 hr as needed -Close observation in ICU postoperatively, improved and now will transfer to fourth floor 1400 2. Morbid Obesity strongly recommended diet and exercise, weight loss warranted. 3. Hypertension controlled. 4. DM II continue sliding scale better control, Hemoglobin A1C 6.8. 5. Hyperlipidemia continue home medicines 6. ESRD on Hemodialysis and Friday, at this time going for HD 7. chronic low back pain and chronic pain syndrome asked to increase pain medicine increased frequency to every four hours. 8. Electrolyte derangement patient followed by Nephrology. 9. Anemia of chronic disease worsened with acute blood loss anemia: S/p transfusion on 4/17/17 as well as erythropoietin by nephrology. Another PRBC transfusion 06/21. Closely monitor. Transfuse if indicated. Received 2 units PRBCs yesterday, blood count improved to 8.5. Given additional 1 unit PRBCs intraoperatively. Check stat H&H postoperatively, hemoglobin currently 9.8. Stable. 10. Chronic low back pain and chronic pain syndrome,exacerbated by Wounds continue pain control and bowel regimen. Discussed with Patient and nurse. DVT prophylaxis with Heparin every 12 hours. Code Status Full Code. Discharge Planning not yet cleared for discharge. Problem Qualifiers (1) Open wound of abdomen: Qualified Code: S31.109A - Open wound of abdomen, initial encounter Ken Franks MD Jun 29, 2016 15:15
--- NOTE | 2016-06-29 15:24 | HHI.NPPN ---
Subjective History of Present Illness 55-year-old female known to me from before with past medical history of diabetes mellitus, history of morbid obesity, end-stage renal disease on hemodialysis three times per week, history of chronic anemia, congestive heart failure, spinal stenosis, chronic back pain, hypothyroidism who came to the hospital with complaint of worsening lower abdominal wound. I was called to see the patient for the management of dialysis. The patient has been on hemodialysis Friday, and Friday. Additional Remarks Patient is alert, no SOB, seen during HD, has mild abd. pain. Review of Systems General Constitutional: Fatigue Respiratory Lungs: SOB Cardiovascular Cardiac: GRIFFIN Objective Data Data 06/28/16 06/29/16 19:00 07:00 Intake Total 1050 ml 760 ml Output Total 500 ml 40 ml Balance 550 ml 720 ml Intake Oral 50 ml 760 ml IV Total 0 ml Packed Cells 500 ml Other 500 ml Output Urine Total 0 ml Drainage Total 40 ml Estimated Blood Loss 500 ml # Bowel Movements 1 Vital Signs Date Time Temp Pulse Resp B/P Pulse Ox O2 Delivery O2 Flow Rate FiO2 06/29/16 13:23 14 06/29/16 12:00 98.0 90 16 105/50 96 06/29/16 08:51 94 21 06/29/16 08:00 98.3 82 16 106/53 97 06/29/16 08:00 83 06/29/16 07:00 95 Room Air 06/29/16 06:11 15 06/29/16 05:00 14 06/29/16 04:13 94 21 06/29/16 04:00 98.8 80 17 129/60 98 06/29/16 00:00 98.7 79 13 120/57 96 06/28/16 22:00 98.7 77 14 120/64 95 06/28/16 22:00 77 06/28/16 22:00 95 Room Air 06/28/16 20:30 75 12 108/64 99 Nasal Cannula 2 06/28/16 20:00 97.9 80 13 107/65 99 Nasal Cannula 2 06/28/16 19:30 82 13 105/68 99 Nasal Cannula 2 06/28/16 19:00 74 13 108/68 99 Nasal Cannula 2 06/28/16 18:30 72 12 105/66 99 Nasal Cannula 3 06/28/16 18:00 80 13 99/62 99 Nasal Cannula 3 06/28/16 17:30 82 13 122/67 99 Nasal Cannula 3 06/28/16 17:15 83 12 112/70 99 Nasal Cannula 3 06/28/16 17:00 95 12 100/70 99 Nasal Cannula 3 06/28/16 16:45 100 14 94/63 99 Nasal Cannula 3 06/28/16 16:30 106 13 99/54 99 Nasal Cannula 3 06/28/16 16:15 103 14 85/60 99 Nasal Cannula 3 06/28/16 16:09 98.9 98 16 95/60 99 Nasal Cannula 3 -: 06/29/16 0416 06/29/166 Physical Exam General Appearance: No Acute Distress, Comfortable Eyes Eye Exam: Pupils Equal Throat Throat Exam: Oral Mucosa Corazon & Moist Neck Neck Exam: Neck Supple Pulmonary Resp Exam: Breath Sounds Equal, Crackles, Decreased Bases, Diminished Breath Sounds Gastrointestinal/Abdomen GI Exam: Soft, Non-Tender, Distended Extremeties Extremities Exam: Moderate Edema, Pitting Edema, Dependent Edema Neurologic Neuro Exam: Alert, Awake, Oriented Assessment/Plan Assessment Summary: Anemia of CKD, Hypertension, End Stage Renal Disease Problem List: (1) Anemia in chronic kidney disease (CKD) (2) Open wound of abdomen (3) Chronic stasis dermatitis (4) End stage kidney disease Plan Continue the wound care. ID is following. 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 Seen by plastic surgery and had debridement of Rt. buttock area. Also has debridement of abd. wound done. Ongoing anemia, on epogen with HD. Skin Biopsy done, no Calciphylaxis noted. Hgb. is low off and on and getting transfusion. On Epogen , refusing iron. Has repeat debridement done. HD to continue TTS. Problem Qualifiers (1) Open wound of abdomen: Qualified Code: S31.109A - Open wound of abdomen, initial encounter Valentin Jimenez MD Jun 29, 2016 15:24
--- NOTE | 2016-06-29 17:27 | PD.PLAS.PN ---
Subjective Remarks Patient reports feeling much better. Vital Signs Date Time Temp Pulse Resp B/P Pulse Ox O2 Delivery O2 Flow Rate FiO2 06/29/16 13:23 14 06/29/16 12:00 98.0 90 16 105/50 96 06/29/16 08:51 94 21 06/29/16 08:00 98.3 82 16 106/53 97 06/29/16 08:00 83 06/29/16 07:00 95 Room Air 06/29/16 06:11 15 06/29/16 05:00 14 06/29/16 04:13 94 21 06/29/16 04:00 98.8 80 17 129/60 98 06/29/16 00:00 98.7 79 13 120/57 96 06/28/16 22:00 98.7 77 14 120/64 95 06/28/16 22:00 77 06/28/16 22:00 95 Room Air 06/28/16 20:30 75 12 108/64 99 Nasal Cannula 2 06/28/16 20:00 97.9 80 13 107/65 99 Nasal Cannula 2 06/28/16 19:30 82 13 105/68 99 Nasal Cannula 2 06/28/16 19:00 74 13 108/68 99 Nasal Cannula 2 06/28/16 18:30 72 12 105/66 99 Nasal Cannula 3 06/28/16 18:00 80 13 99/62 99 Nasal Cannula 3 06/28/16 17:30 82 13 122/67 99 Nasal Cannula 3 I/O 06/28/16 06/28/16 06/28/16 06/29/16 06/29/16 06/29/16 07:00 15:00 23:00 07:00 15:00 23:00 Intake Total 0 ml 1390 ml 420 ml 600 ml Output Total 540 ml 0 ml 70 ml 1200 ml Balance 0 ml 850 ml 420 ml 530 ml -1200 ml Intake Oral 0 ml 390 ml 420 ml 600 ml IV Total 0 ml Packed Cells 500 ml Other 500 ml Output Urine Total 0 ml 0 ml 0 ml Drainage Total 40 ml 70 ml Hemodialysis 1200 ml Estimated Blood Loss 500 ml # Voids 1 # Bowel Movements 1 1 Laboratory Tests Test 06/29/16 04:16 White Blood Count 20.7 Red Blood Count 3.30 Hemoglobin 9.2 Hematocrit 27.6 Mean Corpuscular Volume 83.5 Mean Corpuscular Hemoglobin 27.7 Mean Corpuscular Hemoglobin 33.2 Concent Red Cell Distribution Width 16.1 Platelet Count 420 Mean Platelet Volume 6.6 Neutrophils (%) (Auto) 89.4 Lymphocytes (%) (Auto) 6.0 Monocytes (%) (Auto) 4.2 Eosinophils (%) (Auto) 0.1 Basophils (%) (Auto) 0.3 Neutrophils # (Auto) 18.5 Lymphocytes # (Auto) 1.3 Monocytes # (Auto) 0.9 Eosinophils # (Auto) 0.0 Basophils # (Auto) 0.1 CBC Comment DIFF FINAL Differential Comment Sodium Level 134 Potassium Level 5.4 Chloride Level 96 Carbon Dioxide Level 26.9 Anion Gap 11 Blood Urea Nitrogen 56 Creatinine 5.94 Estimat Glomerular Filtration 7 Rate Random Glucose 159 Calcium Level 8.1 Result Diagram: 06/29/166 06/29/16415 Exam Findings Her wound is completely intact with good perfusion to all areas. Her drainage is serosanguineous and minimal to moderate. Her hematocrit is stable. White count is slightly elevated. Plan Impression: The patient is stable postoperatively. Plan: The dressing is changed. I spoke with Dr. Maria, the covering physician , to place the patient on prophylactic antibiotics for several days. He agreed to do so. We will continue with postoperative care. Lisa Meyers MD Jun 29, 2016 17:27
[2016-06-29] MEDS ORDERED: Vancomycin Consult Pharmacy 1 EA OTHER SCH (17:30)
[2016-06-29] MEDS ORDERED: VANCOMYCIN INJ 1,000 MG in SODIUM CHLOR 0.9% 250 ML INJ 250 ML IV ONE (17:30)
[2016-06-29] MEDS: PIPERACIL-TAZO 2.25 GM PREMIX 50 ML IV SCH (18:00)
[2016-06-29] MEDS: ATORVASTATIN 80 MG TAB PO SCH (20:21)
[2016-06-29] MEDS: ACETAMINOPHEN/HYDROcodone 325 MG/10 MG TAB PO PRN (22:01)
[2016-06-30] VITALS (8 sets, daily range): BP systolic 100–146; BP diastolic 49–65; PULSE 85–97; RESP 16–20; TEMP 98–99.3; O2SAT 91–96
[2016-06-30] MEDS: HYDROmorphone HCL PF 1 MG/ML VIAL IV PUSH PRN ×4 (00:25→21:14)
[2016-06-30] MEDS: PIPERACIL-TAZO 2.25 GM PREMIX 50 ML IV SCH ×2 (00:28→10:05)
[2016-06-30] MEDS: ACETAMINOPHEN/HYDROcodone 325 MG/10 MG TAB PO PRN ×3 (05:01→19:26)
[2016-06-30] MEDS: HIGH DOSE INSULIN NOVOLOG SUPPLEMENTAL SCALE SQ SCH ×4 (06:54→21:00)
[2016-06-30] MEDS: LEVOTHYROXINE SODIUM 150 MCG TAB PO SCH (06:56)
[2016-06-30] MEDS: METHADONE HCL 10 MG TAB PO SCH ×3 (06:56→22:26)
--- NOTE | 2016-06-30 08:06 | PD.PLAS.PN ---
Subjective Remarks Patient doing well Afebrile Feeling stronger and more active Good color to lips and face Dressing clean - lifted to check the entire suture line both upper and lower flaps are viable No drainage or pus through the suture lines MELIA drains reddish brown, approx 30-40 cc each x 4 Will allow patient OOB as soon as she can Change dressing with betadine soaked 4x4 directly on the skin daily Will let the wound care team continue most of the post op To watch for any further necrotic spots showing up. Keep sutures / nba for approx 2 weeks unless they get inflamed Drains probably 2-3 weeks as well. Vital Signs Date Time Temp Pulse Resp B/P Pulse Ox O2 Delivery O2 Flow Rate FiO2 06/30/16 06:55 132/59 06/30/16 04:00 98.5 85 20 100/49 93 06/30/16 00:25 99.3 88 18 114/53 95 06/29/16 23:22 87 06/29/16 22:25 Room Air 06/29/16 20:03 95 06/29/16 20:00 99.5 91 18 123/57 96 06/29/16 20:00 99.2 90 19 106/52 92 Manual Cuff/Auscultation 06/29/16 20:00 96 06/29/16 19:00 92 Room Air 06/29/16 16:00 98.8 86 16 120/60 94 06/29/16 13:23 14 06/29/16 12:00 98.0 90 16 105/50 96 06/29/16 08:51 94 21 I/O 06/29/16 06/29/16 06/29/16 06/30/16 06/30/16 06/30/16 07:00 15:00 23:00 07:00 15:00 23:00 Intake Total 420 ml 600 ml Output Total 0 ml 70 ml 1260 ml 40 ml Balance 420 ml 530 ml -1260 ml -40 ml Intake Oral 420 ml 600 ml IV Total 0 ml Output Urine Total 0 ml 0 ml Drainage Total 70 ml 60 ml 40 ml Hemodialysis 1200 ml # Bowel Movements 1 Result Diagram: 06/29/16 0416 06/29/16 0416 Bob Johnson MD Jun 30, 2016 08:06
[2016-06-30] MEDS: CINACALCET HYDROCHLORIDE 30 MG TAB PO SCH (08:10)
[2016-06-30] MEDS: SEVELAMER CARBONATE 800 MG TAB PO SCH ×3 (08:10→18:00)
[2016-06-30] MEDS: CALCITRIOL 0.25 MCG CAP PO SCH (08:11)
[2016-06-30] MEDS: ASPIRIN EC 81 MG TABEC PO SCH (08:11)
[2016-06-30] MEDS: DOCUSATE SODIUM 50 MG/SENNA 8.6 MG TAB PO SCH ×2 (08:11→19:27)
[2016-06-30] MEDS: FLUoxetine HCL 10 MG CAP PO SCH (08:12)
[2016-06-30] MEDS: GABAPENTIN 100 MG CAP PO SCH ×2 (08:12→19:27)
[2016-06-30] MEDS: INSULIN DETEMIR 100 UNITS/ML VIAL SQ SCH ×2 (08:15→21:14)
[2016-06-30] MEDS: SODIUM CHLORIDE 0.9% FLUSH 5 ML FLUSH FLUSH SCH ×2 (09:00→21:14)
[2016-06-30] MEDS: POLYETHYLENE GLYCOL 17 GM PKG PO SCH (09:00)
--- NOTE | 2016-06-30 12:14 | HHI.NPPN ---
Subjective History of Present Illness 55-year-old female known to me from before with past medical history of diabetes mellitus, history of morbid obesity, end-stage renal disease on hemodialysis three times per week, history of chronic anemia, congestive heart failure, spinal stenosis, chronic back pain, hypothyroidism who came to the hospital with complaint of worsening lower abdominal wound. I was called to see the patient for the management of dialysis. The patient has been on hemodialysis Friday, and Friday. Additional Remarks Patient is alert, no SOB, has mild abd. pain, eating well. Review of Systems General Constitutional: Fatigue Respiratory Lungs: SOB Cardiovascular Cardiac: GRIFFIN Objective Data Data 06/29/16 06/30/16 19:00 07:00 Intake Total 600 ml Output Total 1270 ml 100 ml Balance -670 ml -100 ml Intake Oral 600 ml Output Urine Total 0 ml Drainage Total 70 ml 100 ml Hemodialysis 1200 ml Vital Signs Date Time Temp Pulse Resp B/P Pulse Ox O2 Delivery O2 Flow Rate FiO2 06/30/16 10:17 94 06/30/16 08:00 98.0 97 17 139/62 96 06/30/16 06:55 132/59 06/30/16 04:00 98.5 85 20 100/49 93 06/30/16 00:25 99.3 88 18 114/53 95 06/29/16 23:22 87 06/29/16 22:25 Room Air 06/29/16 20:03 95 06/29/16 20:00 99.5 91 18 123/57 96 06/29/16 20:00 99.2 90 19 106/52 92 Manual Cuff/Auscultation 06/29/16 20:00 96 06/29/16 19:00 92 Room Air 06/29/16 16:00 98.8 86 16 120/60 94 06/29/16 13:23 14 -: 06/29/16 0416 06/29/16 0416 Physical Exam General Appearance: No Acute Distress, Comfortable Eyes Eye Exam: Pupils Equal Throat Throat Exam: Oral Mucosa Taylor & Moist Neck Neck Exam: Neck Supple Pulmonary Resp Exam: Breath Sounds Equal, Crackles, Decreased Bases, Diminished Breath Sounds Gastrointestinal/Abdomen GI Exam: Soft, Non-Tender, Distended Extremeties Extremities Exam: Moderate Edema, Pitting Edema, Dependent Edema Neurologic Neuro Exam: Alert, Awake, Oriented Assessment/Plan Assessment Summary: Anemia of CKD, Hypertension, End Stage Renal Disease Problem List: (1) Anemia in chronic kidney disease (CKD) (2) Open wound of abdomen (3) Chronic stasis dermatitis (4) End stage kidney disease Plan Continue the wound care. ID is following. 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 Seen by plastic surgery and had debridement of Rt. buttock area. Also has debridement of abd. wound done. Ongoing anemia, on epogen with HD. Skin Biopsy done, no Calciphylaxis noted. Hgb. is low off and on and getting transfusion. On Epogen , refusing iron. Has repeat debridement done. HD to continue TTS. Wound care , follow Calcium/Po4 level. Problem Qualifiers (1) Open wound of abdomen: Qualified Code: S31.109A - Open wound of abdomen, initial encounter Valentin Jimenez MD Jun 30, 2016 12:14
--- NOTE | 2016-06-30 14:59 | HHI.PR ---
Subjective Remarks f/u with wound patient stating she feels a wave across her stomach. she is afebrile. Denied any N/V. BM about 2 days ago. Objective Vitals Vital Signs Date Time Temp Pulse Resp B/P Pulse Ox O2 Delivery O2 Flow Rate FiO2 06/30/16 12:00 98.7 88 17 125/58 91 06/30/16 10:17 94 06/30/16 08:00 98.0 97 17 139/62 96 06/30/16 06:55 132/59 06/30/16 04:00 98.5 85 20 100/49 93 06/30/16 00:25 99.3 88 18 114/53 95 06/29/16 23:22 87 06/29/16 22:25 Room Air 06/29/16 20:03 95 06/29/16 20:00 99.5 91 18 123/57 96 06/29/16 20:00 99.2 90 19 106/52 92 Manual Cuff/Auscultation 06/29/16 20:00 96 06/29/16 19:00 92 Room Air 06/29/16 16:00 98.8 86 16 120/60 94 I/O 06/29/16 06/29/16 06/29/16 06/30/16 06/30/16 06/30/16 07:00 15:00 23:00 07:00 15:00 23:00 Intake Total 420 ml 600 ml 340 ml Output Total 0 ml 70 ml 1260 ml 40 ml Balance 420 ml 530 ml -1260 ml -40 ml 340 ml Intake Oral 420 ml 600 ml 340 ml IV Total 0 ml Output Urine Total 0 ml 0 ml Drainage Total 70 ml 60 ml 40 ml Hemodialysis 1200 ml # Voids 2 # Bowel Movements 1 0 Result Diagram: 06/29/16 0416 06/29/16 0416 Objective Remarks GENERAL: Pleasant, morbidly obese middle-age female patient. CARDIOVASCULAR: Regular rate and rhythm without murmurs, gallops, or rubs. RESPIRATORY: Breath sounds equal bilaterally. No accessory muscle use. GASTROINTESTINAL: wound with sutures in place. MELIA showed serosangious fluid. Procedures I&D Debridement Skin biopsy on 06/06 Medications and IVs Current Medications Sodium Chloride 250 ml @ 15 mls/hr ONCE ONCE IV ; Start 05/14/16 at 13:15; Stop 05/15/16 at 05:54; Status DC Piperacillin Sod/ Tazobactam Sod 50 ml @ 100 mls/hr ONCE ONCE IV Last administered on 05/14/16 13:56; Start 05/14/16 at 13:45; Stop 05/14/16 at 14:14; Status DC Vancomycin HCl 1000 mg/Sodium Chloride 250 ml @ 250 mls/hr ONCE ONCE IV ; Start 05/14/16 at 13:45; Stop 05/14/16 at 13:51; Status DC Vancomycin HCl/ Sodium Chloride (Vancomycin Inj/ NS 500 ml Inj) 517.5 ml @ 258.75 mls/ hr ONCE ONCE IV ; Start 05/14/16 at 14:00; Stop 05/14/16 at 14:42; Status DC Amlodipine Besylate (Norvasc) 5 mg BID PO Last administered on 05/26/16 21:07 ; Start 05/14/16 at 21:00; Status Hold Aspirin (Ecotrin Ec) 81 mg DAILY PO Last administered on 06/30/16 08:11; Start 05/15/16 at 09:00 Atenolol (Tenormin) 50 mg BID PO Last administered on 05/26/16 21:07; Start at 21:00; Status Hold Atorvastatin Calcium (Lipitor) 80 mg HS PO Last administered on 06/29/16 20:21 ; Start 05/14/16 at 21:00 Lisinopril (Prinivil) 20 mg BID PO Last administered on 05/26/16 21:15; Start 05/14/16 at 21:00; Status Hold Calcitriol (Rocaltrol) 0.5 mcg DAILY PO Last administered on 06/30/16 08:11; Start 05/15/16 at 09:00 Fluoxetine HCl (PROzac) 20 mg DAILY PO Last administered on 06/26/16 09:07; Start 05/15/16 at 09:00; Stop 06/26/16 at 17:09; Status DC Gabapentin (Neurontin) 100 mg BID PO Last administered on 06/30/16 08:12; Start 05/14/16 at 21:00 Acetaminophen/ Hydrocodone Bitart ([place] 10-325 Mg) 1 tab Q6H PRN PO PAIN Last administered on 05/19/16 15:00; Start 05/14/16 at 14:15; Stop 05/19/16 at 16:26 ; Status DC Levothyroxine Sodium (Synthroid) 300 mcg DAILY@0600 PO Last administered on 06:56; Start 05/15/16 at 06:00 Meclizine HCl (Antivert) 25 mg TID PRN PO VERTIGO; Start 05/14/16 at 14:15 Sevelamer Carbonate (Renvela) 800 mg TID PO Last administered on 06/03/16 09: 13; Start 05/14/16 at 18:00; Stop 06/03/16 at 11:42; Status DC Tizanidine HCl (Zanaflex) 4 mg TID PRN PO MUSCLE SPASM Last administered on 23:13; Start 05/14/16 at 14:15; Stop 06/10/16 at 09:27; Status DC IV Flush (NS Flush) 2 ml UNSCH PRN FLUSH FLUSH AFTER USING IV ACCESS Last administered on 05/28/16 18:09; Start 05/14/16 at 14:30 IV Flush (NS Flush) 2 ml BID FLUSH Last administered on 06/29/16 20:22; Start 05/14/16 at 21:00 Acetaminophen (Tylenol) 650 mg Q4H PRN PO FEVER Last administered on 06/02/16 02:49; Start 05/14/16 at 14:30; Stop 06/06/16 at 12:39; Status DC Ondansetron HCl (Zofran Inj) 4 mg Q6H PRN IVP NAUSEA OR VOMITING Last administered on 06/15/16 07:15; Start 05/14/16 at 14:30 Metoclopramide HCl (Reglan Inj) 5 mg Q6H PRN IV PUSH NAUSEA OR VOMITING Last administered on 06/13/16 21:36; Start 05/14/16 at 14:30 Bisacodyl (Dulcolax Supp) 10 mg DAILY PRN DE CONSTIPATION; Start 05/14/16 at 14: 30 Docusate Sodium (Colace) 100 mg Q12HR PO Last administered on 05/26/16 09:00; Start 05/14/16 at 21:00; Stop 05/26/16 at 12:34; Status DC Heparin Sodium (Porcine) (Heparin Inj) 5,000 units Q12H SQ Last administered on 06/27/16 06:08; Start 05/14/16 at 16:00; Status Hold Naloxone HCl 0.4 mg 0.4 mg UNSCH PRN IV SEE LABEL COMMENTS Last administered on 06/10/16 19:16; Start 05/14/16 at 14:30 Piperacillin Sod/ Tazobactam Sod 50 ml @ 100 mls/hr Q8H IV Last administered on 05/16/16 12:12; Start 05/14/16 at 22:00; Stop 05/16/16 at 23:48; Status DC Pharmacy Profile Note 0 ml @ 0 mls/hr UNSCH OTHER ; Start 05/14/16 at 14:45; Status Cancel Vancomycin HCl 2000 mg/Sodium Chloride 520 ml @ 258.75 mls/ hr ONCE ONCE IV Last administered on 05/14/16 15:05; Start 05/14/16 at 15:00; Stop 05/14/16 at 17: 00; Status DC Sodium Chloride (NS 1000 ml Inj) 1,000 ml @ 0 mls/hr Q0M PRN IV For Prime & Rinse Back Last administered on 06/18/16 10:13; Start 05/14/16 at 14:54 Heparin Sodium (Porcine) 8000 units 8,000 units UNSCH PRN IVF WITH DIALYSIS; Start 05/14/16 at 15:00 Sodium Chloride 1,000 ml @ 200 mls/hr Q5H PRN IV WITH DIALYSIS Last administered on 05/28/16 08:38; Start 05/14/16 at 14:54; Stop 06/07/16 at 12:17 ; Status DC Sodium Chloride (NS 1000 ml Inj) 1,000 ml @ 0 mls/hr Q0M PRN IV WITH DIALYSIS Last administered on 05/30/16 09:36; Start 05/14/16 at 14:54 Mannitol (Mannitol Inj) 12.5 gm UNSCH PRN IV WITH DIALYSIS; Start 05/14/16 at 15 :00 Albumin Human (Albumin 25% Inj) 25 gm UNSCH PRN IV WITH DIALYSIS Last administered on 06/29/16 14:10; Start 05/14/16 at 15:00 IV Flush (NS Flush) 5 ml UNSCH PRN IVF WITH DIALYSIS; Start 05/14/16 at 15:00 Heparin Sodium (Porcine) (Heparin Inj) UNSCH PRN .XX WITH DIALYSIS Last administered on 06/29/16 14:12; Start 05/14/16 at 15:00 Gentamicin Sulfate (Gentamicin (Dialysis) Inj) 20 mg UNSCH PRN IV WITH DIALYSIS Last administered on 06/29/16 14:11; Start 05/14/16 at 15:00 Ondansetron HCl (Zofran Inj) 4 mg UNSCH PRN IV WITH DIALYSIS Last administered on 06/28/16 22:00; Start 05/14/16 at 15:00 Acetaminophen (Tylenol) 650 mg UNSCH PRN PO for headach, pain, temp > 101F Last administered on 05/16/16 09:36; Start 05/14/16 at 15:00; Stop 06/06/16 at 12 :39; Status DC Diphenhydramine HCl (Benadryl) 25 mg UNSCH PRN PO for hives/itching/anaphylaxis ; Start 05/14/16 at 15:00 Nitroglycerin (Nitrostat Sl) 0.4 mg UNSCH PRN SL CHEST PAIN; Start 05/14/16 at 15:00 Clonidine (Catapres) 0.1 mg UNSCH PRN PO for BP > 180/100 X 2 readings; Start 05/14/16 at 15:00 Epoetin Porter (Epogen Inj) 10,000 units UNSCH PRN IV WITH DIALYSIS Last administered on 06/29/16 14:11; Start 05/14/16 at 15:00 Gelatin (Gelfoam 12 Mm/7 Mm Top) 1 foam UNSCH PRN TOP SEE LABEL COMMENTS; Start 05/14/16 at 15:00 Insulin Human Regular (NovoLIN R SUPPLEMENTAL SCALE) 1 ACHS SLIDING SCALE SQ Last administered on 05/18/16 17:26; Start 05/14/16 at 21:00; Stop 05/18/16 at 18:24; Status DC Dextrose (D50w (Vial) Inj) 25 ml UNSCH PRN IV PUSH HYPOGLYCEMIA - SEE COMMENTS ; Start 05/14/16 at 18:45 Glucagon (Glucagon Inj) 1 mg UNSCH PRN OTHER HYPOGLYCEMIA-SEE COMMENTS; Start 05/14/16 at 18:45 Sodium Hypochlorite (Dakin'S 0.125% Soln) 120 ml DAILY OTHER Last administered on 05/31/16 08:18; Start 05/17/16 at 15:00; Stop 06/05/16 at 16:32; Status DC Collagenase (Santyl Oint) 1 applic DAILY EXT Last administered on 06/29/16 08: 54; Start 05/17/16 at 15:00 Furosemide (Lasix Inj) 40 mg UNSCH X1 IV PUSH ; Start 05/16/16 at 17:30; Stop at 03:00; Status DC Diatrizoate Meglum/ Diatrizoate Sod ( Gastroview Liq) 18 ml ONCE ONCE PO ; Start 05/16/16 at 18:45; Stop 05/16/16 at 19:23; Status DC Diatrizoate Meglum/ Diatrizoate Sod ( Gastroraulito Liq) 18 ml ONCE ONCE PO ; Start 05/17/16 at 08:00; Stop 05/17/16 at 08:01; Status DC Lorazepam 1 mg 1 mg ONCE ONCE IV PUSH Last administered on 05/16/16 23:51; Start 05/16/16 at 23:00; Stop 05/16/16 at 23:03; Status DC Piperacillin Sod/ Tazobactam Sod (Zosyn 2.25 Gm Premix) 50 ml @ 100 mls/hr Q8H IV Last administered on 05/22/16 09:38; Start 05/17/16 at 01:00; Stop at 12:27; Status DC Bupivacaine HCl (Marcaine Pf 0.5% Inj) 30 ml STK-MED ONCE .ROUTE ; Start at 15:51; Stop 05/17/16 at 15:52; Status DC Bupivacaine HCl/ Epinephrine Bitart (Sensorcaine-Epi 0.5% 50 ml Inj) 50 ml STK- MED ONCE .ROUTE Last administered on 05/17/16 17:57; Start 05/17/16 at 15:52; Stop 05/17/16 at 15:53; Status DC Bacitracin (Baciguent Oint) 15 applic STK-MED ONCE .ROUTE ; Start 05/17/16 at 15 :52; Stop 05/17/16 at 15:53; Status DC Lidocaine/ Epinephrine (Xylocaine-Epi 1%-1:100,000 Inj) 50 ml STK-MED ONCE .ROUTE ; Start 05/17/16 at 15:53; Stop 05/17/16 at 15:54; Status DC Epinephrine HCl (Adrenalin (1:1000) Inj) 2 mg STK-MED ONCE .ROUTE Last administered on 05/17/16 17:57; Start 05/17/16 at 16:58; Stop 05/17/16 at 16:59 ; Status DC Lidocaine/ Epinephrine (Xylocaine-Epi 1%-1:100,000 Inj) 50 ml STK-MED ONCE .ROUTE ; Start 05/17/16 at 16:58; Stop 05/17/16 at 16:59; Status DC Miscellaneous Information ALL NURSING DEPARTME... UNSCH PRN XX SEE LABEL COMMENTS; Start 05/17/16 at 19:30; Stop 05/18/16 at 19:29; Status DC Fentanyl Citrate (fentaNYL INJ) 250 mcg STK-MED ONCE .ROUTE ; Start 05/17/16 at 19:21; Stop 05/17/16 at 19:22; Status DC Morphine Sulfate (Morphine Inj) 4 mg STK-MED ONCE .ROUTE ; Start 05/17/16 at 19: 55; Stop 05/17/16 at 19:56; Status DC Insulin Detemir (Levemir Inj) 30 units Q12H SQ Last administered on 05/22/16 18:17; Start 05/18/16 at 18:00; Stop 05/23/16 at 11:55; Status DC Insulin Aspart (NovoLOG SUPPLEMENTAL SCALE) 1 ACHS SLIDING SCALE SQ Last administered on 06/29/16 16:00; Start 05/18/16 at 21:00 Acetaminophen/ Hydrocodone Bitart ([place] 10-325 Mg) 1 tab Q4HR PRN PO PAIN 1-5 Last administered on 06/06/16 12:24; Start 05/19/16 at 20:00; Stop 06/06/16 at 17:08; Status DC Propofol (Diprivan 200 Mg/20 ml Inj) 200 mg STK-MED ONCE IV ; Start 05/17/16 at 12:00; Stop 05/20/16 at 11:33; Status DC Ondansetron HCl 4 mg 4 mg STK-MED ONCE IV PUSH ; Start 05/17/16 at 12:00; Stop 05/20/16 at 11:33; Status DC Parenteral Electrolytes (Normosol R Inj) 1,000 ml @ As Directed STK-MED ONCE IV ; Start 05/17/16 at 12:00; Stop 05/20/16 at 11:33; Status DC Lactulose 30 ml 30 ml ONCE ONCE PO ; Start 05/20/16 at 18:00; Stop 05/20/16 at 18:01; Status DC Cefepime HCl/ Sodium Chloride (Maxipime Inj/NS Inj) 100 ml @ 200 mls/hr DAILY IV Last administered on 06/07/16 08:12; Start 05/22/16 at 13:00; Stop at 12:21; Status DC Acetaminophen/ Hydrocodone Bitart ([place] 5-325 Mg) 1 tab Q4H PRN PO Breakthrough pain/ dressings Last administered on 06/05/16 18:15; Start at 12:00; Stop 06/09/16 at 10:38; Status DC Insulin Detemir (Levemir Inj) 30 units DAILY SQ Last administered on 06/22/16 08:42; Start 05/24/16 at 09:00; Stop 06/22/16 at 11:31; Status DC Insulin Detemir (Levemir Inj) 20 units HS SQ Last administered on 06/20/16 20: 20; Start 05/23/16 at 21:00; Stop 06/22/16 at 11:31; Status DC Silver Nitrate/ Potassium Nitrate (Silver Nitrate Applicators) 1 appl ONCE ONCE TOPICAL ; Start 05/24/16 at 13:15; Stop 05/24/16 at 13:16; Status DC Non-Formulary Medication LIDOCAINE 2% WITH EPINEPHRINE 1:200,... ONCE ONCE OTHER ; Start 05/24/16 at 18:30; Stop 05/24/16 at 18:31; Status DC Sodium Bicarbonate (Sodium Bicarbonate 8.4% Inj) 50 meq ONCE ONCE IV PUSH ; Start 05/24/16 at 18:30; Stop 05/24/16 at 18:32; Status DC Acetaminophen/ Hydrocodone Bitart ([place] 10-325 Mg) 1 tab ONCE ONCE PO Last administered on 05/25/16 12:46; Start 05/25/16 at 10:30; Stop 05/25/16 at 10:37 ; Status DC Midazolam HCl (Versed Inj) 2 mg STK-MED ONCE .ROUTE ; Start 05/26/16 at 07:31; Stop 05/26/16 at 07:32; Status DC Fentanyl Citrate (fentaNYL INJ) 250 mcg STK-MED ONCE .ROUTE ; Start 05/26/16 at 07:31; Stop 05/26/16 at 07:32; Status DC Acetaminophen (Ofirmev Inj) 1,000 mg STK-MED ONCE IV ; Start 05/26/16 at 07:44; Stop 05/26/16 at 07:49; Status DC Lidocaine/ Epinephrine (Xylocaine-Epi 1%-1:100,000 Inj) 30 ml STK-MED ONCE INFIL Last administered on 05/26/16 08:14; Start 05/26/16 at 08:14; Stop 05/26 at 08:23; Status DC Morphine Sulfate (*morphine INJ PERIprocedure ONLY) 8 mg STK-MED ONCE .ROUTE Last administered on 05/26/16 09:12; Start 05/26/16 at 09:11; Stop 05/26/16 at 09:12; Status DC Miscellaneous Information ALL NURSING DEPARTME... UNSCH PRN XX SEE LABEL COMMENTS; Start 05/26/16 at 09:30; Stop 05/27/16 at 09:29; Status DC Senna/Docusate Sodium (Luciana-Colace) 1 tab BID PO Last administered on 08:11; Start 05/26/16 at 21:00 Propofol (Diprivan 200 Mg/20 ml Inj) 200 mg STK-MED ONCE IV ; Start 05/26/16 at 12:00; Stop 05/27/16 at 10:52; Status DC Ondansetron HCl 4 mg 4 mg STK-MED ONCE IV PUSH ; Start 05/26/16 at 12:00; Stop 05/27/16 at 10:52; Status DC Lactated Ringer's (Lr 1000 ml Inj) 1,000 ml @ As Directed STK-MED ONCE IV ; Start 05/26/16 at 12:00; Stop 05/27/16 at 10:52; Status DC Ephedrine Sulfate (ePHEDrine/NS 25 MG/5 ML SYR) 25 mg STK-MED ONCE IV ; Start at 12:00; Stop 05/27/16 at 10:52; Status DC Neostigmine Methylsulfate 3 mg 3 mg STK-MED ONCE IV ; Start 05/26/16 at 12:00; Stop 05/27/16 at 10:52; Status DC Sodium Chloride 1,000 ml @ 50 mls/hr Q20H IV Last administered on 05/27/16 12 :53; Start 05/27/16 at 12:45; Stop 05/27/16 at 17:44; Status DC Iron Sucrose 50 mg/Sodium Chloride 102.5 ml @ 105 mls/hr ONCE ONCE IV ; Start 05/28/16 at 12:00; Stop 05/28/16 at 12:58; Status DC Magnesium Sulfate/ Dextrose (Magnesium Sulfate 1 Gm Premix) 100 ml @ 100 mls/ hr ONCE ONCE IV Last administered on 05/28/16 18:09; Start 05/28/16 at 18:00 ; Stop 05/28/16 at 18:59; Status DC Iron Sucrose 50 mg 50 mg ONCE ONCE IV PUSH Last administered on 05/30/16 12: 25; Start 05/30/16 at 12:00; Stop 05/30/16 at 12:01; Status DC Sodium Thiosulfate/ Sterile Water (Sodium Thiosulfate Inj/ Sterile Water For Inj ) 150 ml @ 150 mls/hr WITH DIALYSIS PRN IV calciphylaxis Last administered on 06/27/16 18:06; Start 06/01/16 at 17:30 Cinacalcet (Sensipar) 30 mg DAILY PO Last administered on 06/30/16 08:10; Start 06/02/16 at 09:00 Miscellaneous Information Patient in critical care unit? Ass... [id number] Last administered on 06/02/16 00:15; Start 06/02/16 at 00:15 Chlorhexidine Gluconate (Chlorhexidine 2% Cloth) 3 pack DAILY@04 TOP Last administered on 06/02/16 00:22; Start 06/02/16 at 04:00; Stop 06/06/16 at 04:01 ; Status DC Chlorhexidine Gluconate (Chlorhexidine 2% Cloth) 3 pack UNSCH PRN TOP HYGIENIC CARE; Start 06/02/16 at 00:15; Stop 06/07/16 at 00:02; Status DC Sevelamer Carbonate (Renvela) 1,600 mg TID PO Last administered on 06/30/16 13 :35; Start 06/03/16 at 13:00 Morphine Sulfate (Morphine Inj) 2 mg ONCE ONCE IV PUSH Last administered on 22:30; Start 06/03/16 at 22:30; Stop 06/03/16 at 22:31; Status DC Hydromorphone HCl (Dilaudid Pf Inj) 1 mg Q4H PRN IV PUSH PAIN 6-10 Last administered on 06/04/16 06:05; Start 06/03/16 at 23:45; Stop 06/04/16 at 09:27 ; Status DC Hydromorphone HCl (Dilaudid Pf Inj) 2 mg Q4H PRN IV PUSH PAIN 6-10 Last administered on 06/06/16 08:16; Start 06/04/16 at 11:45; Stop 06/06/16 at 14:55 ; Status DC Morphine Sulfate (Oramorph Sr) 15 mg Q12HR PO Last administered on 06/07/16 08 :12; Start 06/05/16 at 09:30; Stop 06/07/16 at 12:19; Status DC Povidone Iodine (Betadine 10% Top Soln) 1 applic BID TOPICAL Last administered on 06/18/16 07:55; Start 06/05/16 at 21:00; Stop 06/20/16 at 02:40; Status DC Hydromorphone HCl (Dilaudid) 8 mg Q4HR PRN PO PAIN SCALE 1 TO 10 Last administered on 06/06/16 04:12; Start 06/05/16 at 23:00; Stop 06/06/16 at 08:00 ; Status DC Lidocaine/ Epinephrine (Xylocaine-Epi 1%-1:100,000 Inj) 30 ml STK-MED ONCE .ROUTE ; Start 06/06/16 at 08:45; Stop 06/06/16 at 08:46; Status DC Hydromorphone HCl (Dilaudid Pf Inj) 2 mg Q4H PRN IV PUSH PAIN 1-6 Last administered on 06/07/16 03:38; Start 06/06/16 at 14:55; Stop 06/07/16 at 12:19 ; Status DC Acetaminophen/ Hydrocodone Bitart ([place] 5-325 Mg) 1 tab Q4H PRN PO PAIN SCALE 3 TO 5 Last administered on 06/29/16 17:45; Start 06/06/16 at 17:15 Acetaminophen/ Hydrocodone Bitart ([place] 10-325 Mg) 1 tab Q4H PRN PO PAIN SCALE 6 TO 10 Last administered on 06/10/16 05:14; Start 06/06/16 at 17:15; Stop 06/10/16 at 09:25; Status DC Morphine Sulfate (Oramorph Sr) 30 mg Q12HR PO Last administered on 06/09/16 09: 18; Start 06/07/16 at 21:00; Stop 06/09/16 at 10:38; Status DC Morphine Sulfate (Morphine Inj) 2 mg Q4HR PRN IV PUSH Breakthrough pain Last administered on 06/08/16 18:45; Start 06/08/16 at 15:15; Stop 06/10/16 at 15:36; Status DC Lorazepam (Ativan Inj) 1 mg NOW ONCE IV Last administered on 06/08/16 19:48; Start 06/08/16 at 19:15; Stop 06/08/16 at 19:16; Status DC Morphine Sulfate (Oramorph Sr) 45 mg Q12HR PO Last administered on 06/10/16 08: 33; Start 06/09/16 at 21:00; Stop 06/10/16 at 09:25; Status DC Morphine Sulfate (Oramorph Sr) 15 mg ONCE ONCE PO Last administered on 12:48; Start 06/09/16 at 10:45; Stop 06/09/16 at 10:47; Status DC Alprazolam (Xanax) 0.25 mg Q6H PRN PO Anxiety; Start 06/09/16 at 10:45; Stop 06/10/16 at 09:28; Status DC Polyethylene Glycol (Miralax) 17 gm DAILY PO Last administered on 06/29/16 08: 53; Start 06/09/16 at 10:45 Sodium Biphosphate/ Sodium Phosphate (Fleets Enema (Adult)) 133 ml NOW ONCE RECTAL Last administered on 06/09/16 17:55; Start 06/09/16 at 17:15; Stop at 17:16; Status DC Morphine Sulfate (Oramorph Sr) 15 mg Q12HR PO ; Start 06/10/16 at 21:00; Stop 06/10/16 at 21:00; Status DC Alprazolam (Xanax) 0.125 mg Q6H PRN PO anxiety Last administered on 06/24/16 15:11; Start 06/10/16 at 09:30 Miscellaneous (Pill Splitter) 1 ea UNSCH PRN OTHER SEE LABEL COMMENTS; Start at 10:00 Sodium Hypochlorite (Dakin'S 0.25% Soln) 500 ml DAILY TOPICAL Last administered on 06/29/16 08:54; Start 06/10/16 at 15:00 Acetaminophen/ Hydrocodone Bitart ([place] 10-325 Mg) 1 tab Q4H PRN PO pain 6-10 Last administered on 06/30/16 13:35; Start 06/10/16 at 15:45 Methadone HCl (Dolophine) 2.5 mg Q8H PO ; Start 06/10/16 at 16:00; Stop 06/11/16 at 14:10; Status DC Hydromorphone HCl (Dilaudid Pf Inj) 1 mg Q4H PRN IV PUSH Breakthrough pain Last administered on 06/30/16 08:19; Start 06/10/16 at 15:45 Acetaminophen (Tylenol) 650 mg Q4H PRN PO pain 1-2/ fever Last administered on 06/17/16 17:15; Start 06/10/16 at 20:30 Methadone HCl (Dolophine) 2.5 mg Q12HR PO Last administered on 06/18/16 07:52 ; Start 06/13/16 at 21:00; Stop 06/18/16 at 13:45; Status DC Oxycodone HCl 2.5 mg 2.5 mg ONCE ONCE PO Last administered on 06/16/16 10:54; Start 06/16/16 at 11:00; Stop 06/16/16 at 11:01; Status DC Sodium Chloride 250 ml @ 15 mls/hr ONCE ONCE IV Last administered on 08:15; Start 06/17/16 at 08:15; Stop 06/18/16 at 00:54; Status DC Iron Sucrose/ Sodium Chloride (Venofer Inj/NS Inj) 105 ml @ 50 mls/hr ONCE ONCE IV Last administered on 06/18/16 10:12; Start 06/18/16 at 08:00; Stop 01/24 at 10:05; Status DC Methadone HCl (Dolophine) 2.5 mg Q8HR PO Last administered on 06/20/16 14:31; Start 06/18/16 at 14:00; Stop 06/20/16 at 17:37; Status DC Miscellaneous (Pill Splitter) 1 ea UNSCH PRN OTHER SEE LABEL COMMENTS; Start at 14:15; Status Cancel Silver Nitrate/ Potassium Nitrate (Silver Nitrate Applicators) 1 appl ONCE ONCE TOPICAL Last administered on 06/25/16 16:51; Start 06/19/16 at 09:45; Stop 06/19/16 at 09:58; Status DC Methadone HCl (Dolophine) 2.5 mg Q6HR PO Last administered on 06/26/16 12:21; Start 06/20/16 at 18:00; Stop 06/26/16 at 16:52; Status DC Insulin Detemir (Levemir Inj) 15 units HS SQ Last administered on 06/29/16 20: 22; Start 06/22/16 at 21:00 Insulin Detemir 25 units 25 units DAILY SQ Last administered on 06/30/16 08:15 ; Start 06/23/16 at 09:00 Sodium Chloride (NS 250 ml Inj) 250 ml @ 15 mls/hr ONCE ONCE IV Last administered on 06/27/16 05:45; Start 06/23/16 at 18:15; Stop 06/24/16 at 10:54 ; Status DC Povidone Iodine (Betadine 10% Top Soln) 1 applic DAILY TOP Last administered on 06/29/16 08:54; Start 06/25/16 at 09:00 Acetaminophen/ Hydrocodone Bitart ([place] 5-325 Mg) 1 tab ONCE ONCE PO Last administered on 06/25/16 18:46; Start 06/25/16 at 18:00; Stop 06/25/16 at 18:11 ; Status DC Methadone HCl (Dolophine) 5 mg Q8HR PO Last administered on 06/30/16 13:35; Start 06/26/16 at 22:00 Fluoxetine HCl 30 mg 30 mg DAILY PO Last administered on 06/30/16 08:12; Start 06/27/16 at 09:00 Sodium Chloride (NS 250 ml Inj) 250 ml @ 15 mls/hr ONCE ONCE IV Last administered on 06/26/16 20:30; Start 06/26/16 at 20:30; Stop 06/27/16 at 13:09 ; Status DC Diphenhydramine HCl (Benadryl) 25 mg Q4H PRN PO SEE LABEL COMMENTS; Start 06/26 at 20:30; Stop 06/27/16 at 00:31; Status DC Furosemide 20 mg 20 mg ONCE ONCE IV ; Start 06/26/16 at 20:30; Stop 06/26/16 at 20:35; Status DC Lactated Ringer's 1,000 ml @ 30 mls/hr Q24H PRN IV SEE LABEL COMMENTS; Start at 08:45; Stop 07/01/16 at 08:44 Sodium Chloride (NS 500 ml Inj) 500 ml @ 30 mls/hr [id number] PRN IV SEE LABEL COMMENTS; Start 06/28/16 at 08:45; Stop 07/01/16 at 08:44 Metoprolol Tartrate (Lopressor) 25 mg [employer] PRN PO SEE LABEL COMMENTS; Start 06/28/16 at 08:45; Stop 07/01/16 at 08:44 Povidone Iodine (Betadine 5% Antisepsis Kit) 1 applic [employer] PRN EACH NARE SEE LABEL COMMENTS; Start 06/28/16 at 08:45; Stop 07/01/16 at 08:44 Chlorhexidine Gluconate (Chlorhexidine 2% Cloth) 3 pack [employer] PRN TOPICAL SEE LABEL COMMENTS; Start 06/28/16 at 08:45; Stop 07/01/16 at 08:44 Insulin Human Regular (NovoLIN R INJ) See Protocol Table ... [employer] PRN SQ SEE PROTOCOL TABLE; Start 06/28/16 at 08:45; Stop 07/01/16 at 08:44 Epinephrine HCl (Adrenalin (1:1000) Inj) 1 mg STK-MED ONCE .ROUTE Last administered on 06/28/16 14:12; Start 06/28/16 at 12:42; Stop 06/28/16 at 12:43 ; Status DC Lidocaine HCl (Xylocaine 1% Inj (50 ml)) 50 ml STK-MED ONCE .ROUTE Last administered on 06/28/16 14:12; Start 06/28/16 at 12:42; Stop 06/28/16 at 12:43 ; Status DC Midazolam HCl (Versed Inj) 2 mg STK-MED ONCE .ROUTE Last administered on 13:14; Start 06/28/16 at 13:14; Stop 06/28/16 at 13:15; Status DC Midazolam HCl (Versed Inj) 2 mg STK-MED ONCE .ROUTE ; Start 06/28/16 at 13:28; Stop 06/28/16 at 13:29; Status DC Fentanyl Citrate (fentaNYL INJ) 250 mcg STK-MED ONCE .ROUTE ; Start 06/28/16 at 13:28; Stop 06/28/16 at 13:29; Status DC Acetaminophen (Ofirmev Inj) 1,000 mg STK-MED ONCE IV ; Start 06/28/16 at 13:29; Stop 06/28/16 at 13:30; Status DC Midazolam HCl (Versed Inj) 2 mg STK-MED ONCE IV PUSH Last administered on 13:14; Start 06/28/16 at 13:14; Stop 06/28/16 at 14:01; Status DC Vancomycin HCl 1000 mg 1,000 mg STK-MED ONCE .ROUTE Last administered on 14:53; Start 06/28/16 at 14:31; Stop 06/28/16 at 14:32; Status DC Levofloxacin/ Dextrose 100 ml @ As Directed STK-MED ONCE IV ; Start 06/28/16 at 14:32; Stop 06/28/16 at 14:33; Status DC Levofloxacin/ Dextrose (Levaquin 250 Mg Premix Inj) 50 ml @ As Directed STK-MED ONCE IV ; Start 06/28/16 at 14:33; Stop 06/28/16 at 14:34; Status DC Epinephrine HCl (Adrenalin (1:1000) Inj) 1 mg STK-MED ONCE .ROUTE Last administered on 06/28/16 14:56; Start 06/28/16 at 14:44; Stop 06/28/16 at 14:45 ; Status DC Lidocaine HCl (Xylocaine 1% Inj (50 ml)) 50 ml STK-MED ONCE .ROUTE Last administered on 06/28/16 14:56; Start 06/28/16 at 14:44; Stop 06/28/16 at 14:45 ; Status DC Midazolam HCl (Versed Inj) 2 mg STK-MED ONCE .ROUTE ; Start 06/28/16 at 15:14; Stop 06/28/16 at 15:15; Status DC Miscellaneous Information ALL NURSING DEPARTME... UNSCH PRN .XX SEE LABEL COMMENTS; Start 06/28/16 at 16:10; Stop 06/29/16 at 16:09; Status DC Hydromorphone HCl 1 mg 1 mg STK-MED ONCE .ROUTE Last administered on 06/28/16 17:26; Start 06/28/16 at 17:26; Stop 06/28/16 at 17:27; Status DC Vancomycin HCl 1000 mg/Sodium Chloride 250 ml @ 250 mls/hr ONCE ONCE IV ; Start 06/29/16 at 17:30; Stop 06/29/16 at 18:29; Status UNV Pharmacy Profile Note 0 ml @ 0 mls/hr UNSCH OTHER ; Start 06/29/16 at 17:30; Status UNV Piperacillin Sod/ Tazobactam Sod (Zosyn 2.25 Gm Premix) 50 ml @ 100 mls/hr Q8H IV Last administered on 06/30/16 10:05; Start 06/29/16 at 18:00 A/P Problem List: (1) Open wound of abdomen ICD Code: S31.109A Status: Acute (2) Type II diabetes mellitus with neurological manifestations, uncontrolled ICD Code: E11.49 Status: Chronic (3) End stage renal disease on dialysis ICD Code: N18.6 Status: Chronic (4) Hypertension, benign ICD Code: I10 Status: Chronic (5) Constipation ICD Code: K59.00 Status: Acute Assessment and Plan Abdominal pannus wound cellulitis and ulcer, consulted General Surgery, started on - Status post incision and drainage on 05/26/16-->no improvement in wound to date. - Biopsy negative for calciphylaxis -showed venous stasis dermatitis. -greatly appreciate dr. Meyers's input, panniculectomy performed 06/28 -pain control with lortab 5 mg q 4 hr as needed -per Plastics will allow patient OOB as soon as she can and change dressing with betadine soaked 4x4 directly on the skin daily. -watch for any further necrotic spots showing up. Keep sutures / nba for approx 2 weeks unless they get inflamed. Drains probably 2-3 weeks as well. -management also per wound care nurse. Leukocytosis -most likely reactive due to surgery. clinically doing well and no fevers. will monitor off antibiotics. d/c IV zosyn. s/p vanco. Morbid Obesity strongly -recommended diet and exercise, weight loss warranted. Hypertension -controlled. T2 DM II -continue sliding scale better control, Hemoglobin A1C 6.8. Hyperlipidemia - continue home medicines ESRD -on Hemodialysis and Friday, at this time going for HD chronic low back pain and chronic pain syndrome on methadone and norco PRN. Anemia of chronic disease worsened with acute blood loss anemia -S/p transfusion on 06/24/16 as well as erythropoietin by nephrology. - Another PRBC transfusion 06/21. Closely monitor. Transfuse if indicated. Received 2 units PRBCs yesterday, blood count improved to 8.5. - Given additional 1 unit PRBCs intraoperatively. Check stat H&H postoperatively, hemoglobin currently 9.8. Stable. DVT prophylaxis with Heparin every 12 hours. Problem Qualifiers (1) Open wound of abdomen: Qualified Code: S31.109A - Open wound of abdomen, initial encounter Suzi Denton MD Jun 30, 2016 14:59
[2016-06-30] MEDS: COLLAGENASE OINT 30 GM TUBE EXT SCH (17:30)
[2016-06-30] MEDS: POVIDONE IODINE 10% SOLN 118 ML BOTTLE TOP SCH (17:30)
[2016-06-30] MEDS: ATORVASTATIN 80 MG TAB PO SCH (19:26)
[2016-07-01] MEDS: ACETAMINOPHEN/HYDROcodone 325 MG/10 MG TAB PO PRN ×3 (00:04→19:01)
[2016-07-01 02:13] VITALS: BP 101/61; PULSE 88; RESP 18; TEMP 98.5; O2SAT 92
[2016-07-01 04:00] VITALS: BP 136/63; PULSE 89; RESP 20; TEMP 98.9; O2SAT 93
[2016-07-01] MEDS: HYDROmorphone HCL PF 1 MG/ML VIAL IV PUSH PRN ×2 (04:05→10:59)
[2016-07-01] MEDS: METHADONE HCL 10 MG TAB PO SCH ×3 (06:19→22:12)
[2016-07-01] MEDS: LEVOTHYROXINE SODIUM 150 MCG TAB PO SCH (06:20)
[2016-07-01] MEDS: HIGH DOSE INSULIN NOVOLOG SUPPLEMENTAL SCALE SQ SCH ×4 (06:29→21:00)
[2016-07-01 08:26] VITALS: BP 100/50; PULSE 92; RESP 18; TEMP 98.9; O2SAT 93
[2016-07-01] MEDS: ASPIRIN EC 81 MG TABEC PO SCH (08:28)
[2016-07-01] MEDS: CINACALCET HYDROCHLORIDE 30 MG TAB PO SCH (08:28)
[2016-07-01] MEDS: CALCITRIOL 0.25 MCG CAP PO SCH (08:28)
[2016-07-01] MEDS: SEVELAMER CARBONATE 800 MG TAB PO SCH ×3 (08:28→18:57)
[2016-07-01] MEDS: FLUoxetine HCL 10 MG CAP PO SCH (08:29)
[2016-07-01] MEDS: DOCUSATE SODIUM 50 MG/SENNA 8.6 MG TAB PO SCH ×2 (08:29→22:13)
[2016-07-01] MEDS: GABAPENTIN 100 MG CAP PO SCH ×2 (08:29→22:11)
[2016-07-01] MEDS: POLYETHYLENE GLYCOL 17 GM PKG PO SCH (08:29)
[2016-07-01] MEDS: INSULIN DETEMIR 100 UNITS/ML VIAL SQ SCH ×2 (08:31→22:13)
[2016-07-01] MEDS: POVIDONE IODINE 10% SOLN 118 ML BOTTLE TOP SCH (08:32)
[2016-07-01] MEDS: COLLAGENASE OINT 30 GM TUBE EXT SCH (08:32)
[2016-07-01] MEDS: SODIUM CHLORIDE 0.9% FLUSH 5 ML FLUSH FLUSH SCH ×2 (08:48→21:00)
[2016-07-01] MEDS: SODIUM HYPOCHLORITE 0.25% 500 ML BTL TOPICAL SCH (08:48)
--- NOTE | 2016-07-01 10:59 | HHI.PR ---
Subjective Remarks f/u for wound. patient has no complaints pain controlled and tolerating PO intake. no acute events since she was last seen. her son is at the bedside. Objective Vitals Vital Signs Date Time Temp Pulse Resp B/P Pulse Ox O2 Delivery O2 Flow Rate FiO2 07/01/16 08:26 98.9 92 18 100/50 93 07/01/16 07:17 Room Air 07/01/16 04:00 98.9 89 20 136/63 93 07/01/16 02:13 98.5 88 18 101/61 92 06/30/16 21:15 Room Air 06/30/16 20:00 99.3 94 20 119/59 93 06/30/16 20:00 91 06/30/16 16:00 98.8 87 16 146/65 92 06/30/16 12:00 98.7 88 17 125/58 91 I/O 06/30/16 06/30/16 06/30/16 07/01/16 07/01/16 07/01/16 07:00 15:00 23:00 07:00 15:00 23:00 Intake Total 340 ml 320 ml Output Total 40 ml 55 ml Balance -40 ml 340 ml 265 ml Intake Oral 340 ml 320 ml Drainage Total 40 ml 55 ml # Voids 2 # Bowel Movements 0 Result Diagram: 06/29/16 0416 06/29/16 0416 Objective Remarks GENERAL: Pleasant, morbidly obese middle-age female patient. CARDIOVASCULAR: Regular rate and rhythm without murmurs, gallops, or rubs. RESPIRATORY: Breath sounds equal bilaterally. No accessory muscle use. GASTROINTESTINAL: wound with sutures in place. MELIA showed serosangious fluid. Procedures I&D Debridement Skin biopsy on 06/06 Medications and IVs Current Medications Sodium Chloride 250 ml @ 15 mls/hr ONCE ONCE IV ; Start 05/14/16 at 13:15; Stop 05/15/16 at 05:54; Status DC Piperacillin Sod/ Tazobactam Sod 50 ml @ 100 mls/hr ONCE ONCE IV Last administered on 05/14/16t 13:56; Start 05/14/16 at 13:45; Stop 05/14/16 at 14:14; Status DC Vancomycin HCl 1000 mg/Sodium Chloride 250 ml @ 250 mls/hr ONCE ONCE IV ; Start 05/14/16 at 13:45; Stop 05/14/16 at 13:51; Status DC Vancomycin HCl/ Sodium Chloride (Vancomycin Inj/ NS 500 ml Inj) 517.5 ml @ 258.75 mls/ hr ONCE ONCE IV ; Start 05/14/16 at 14:00; Stop 05/14/16 at 14:42; Status DC Amlodipine Besylate (Norvasc) 5 mg BID PO Last administered on 05/26/16 21:07 ; Start 05/14/16 at 21:00; Status Hold Aspirin (Ecotrin Ec) 81 mg DAILY PO Last administered on 07/01/16 08:28; Start 05/15/16 at 09:00 Atenolol (Tenormin) 50 mg BID PO Last administered on 05/26/16 21:07; Start at 21:00; Status Hold Atorvastatin Calcium (Lipitor) 80 mg HS PO Last administered on 06/30/16 19:26 ; Start 05/14/16 at 21:00 Lisinopril (Prinivil) 20 mg BID PO Last administered on 05/26/16 21:15; Start 05/14/16 at 21:00; Status Hold Calcitriol (Rocaltrol) 0.5 mcg DAILY PO Last administered on 07/01/16 08:28; Start 05/15/16 at 09:00 Fluoxetine HCl (PROzac) 20 mg DAILY PO Last administered on 06/26/16 09:07; Start 05/15/16 at 09:00; Stop 06/26/16 at 17:09; Status DC Gabapentin (Neurontin) 100 mg BID PO Last administered on 07/01/16 08:29; Start 05/14/16 at 21:00 Acetaminophen/ Hydrocodone Bitart (Tea 10-325 Mg) 1 tab Q6H PRN PO PAIN Last administered on 05/19/16 15:00; Start 05/14/16 at 14:15; Stop 05/19/16 at 16:26 ; Status DC Levothyroxine Sodium (Synthroid) 300 mcg DAILY@0600 PO Last administered on 06:20; Start 05/15/16 at 06:00 Meclizine HCl (Antivert) 25 mg TID PRN PO VERTIGO; Start 05/14/16 at 14:15 Sevelamer Carbonate (Renvela) 800 mg TID PO Last administered on 06/03/16 09: 13; Start 05/14/16 at 18:00; Stop 06/03/16 at 11:42; Status DC Tizanidine HCl (Zanaflex) 4 mg TID PRN PO MUSCLE SPASM Last administered on 23:13; Start 05/14/16 at 14:15; Stop 06/10/16 at 09:27; Status DC IV Flush (NS Flush) 2 ml UNSCH PRN FLUSH FLUSH AFTER USING IV ACCESS Last administered on 05/28/16 18:09; Start 05/14/16 at 14:30 IV Flush (NS Flush) 2 ml BID FLUSH Last administered on 07/01/16 08:48; Start 05/14/16 at 21:00 Acetaminophen (Tylenol) 650 mg Q4H PRN PO FEVER Last administered on 06/02/16 02:49; Start 05/14/16 at 14:30; Stop 06/06/16 at 12:39; Status DC Ondansetron HCl (Zofran Inj) 4 mg Q6H PRN IVP NAUSEA OR VOMITING Last administered on 06/15/16 07:15; Start 05/14/16 at 14:30 Metoclopramide HCl (Reglan Inj) 5 mg Q6H PRN IV PUSH NAUSEA OR VOMITING Last administered on 06/13/16 21:36; Start 05/14/16 at 14:30 Bisacodyl (Dulcolax Supp) 10 mg DAILY PRN AL CONSTIPATION; Start 05/14/16 at 14: 30 Docusate Sodium (Colace) 100 mg Q12HR PO Last administered on 05/26/16 09:00; Start 05/14/16 at 21:00; Stop 05/26/16 at 12:34; Status DC Heparin Sodium (Porcine) (Heparin Inj) 5,000 units Q12H SQ Last administered on 06/27/16 06:08; Start 05/14/16 at 16:00; Status Hold Naloxone HCl 0.4 mg 0.4 mg UNSCH PRN IV SEE LABEL COMMENTS Last administered on 06/10/16 19:16; Start 05/14/16 at 14:30 Piperacillin Sod/ Tazobactam Sod 50 ml @ 100 mls/hr Q8H IV Last administered on 05/16/16 12:12; Start 05/14/16 at 22:00; Stop 05/16/16 at 23:48; Status DC Pharmacy Profile Note 0 ml @ 0 mls/hr UNSCH OTHER ; Start 05/14/16 at 14:45; Status Cancel Vancomycin HCl 2000 mg/Sodium Chloride 520 ml @ 258.75 mls/ hr ONCE ONCE IV Last administered on 05/14/16 15:05; Start 05/14/16 at 15:00; Stop 05/14/16 at 17: 00; Status DC Sodium Chloride (NS 1000 ml Inj) 1,000 ml @ 0 mls/hr Q0M PRN IV For Prime & Rinse Back Last administered on 06/18/16 10:13; Start 05/14/16 at 14:54 Heparin Sodium (Porcine) 8000 units 8,000 units UNSCH PRN IVF WITH DIALYSIS; Start 05/14/16 at 15:00 Sodium Chloride 1,000 ml @ 200 mls/hr Q5H PRN IV WITH DIALYSIS Last administered on 05/28/16 08:38; Start 05/14/16 at 14:54; Stop 06/07/16 at 12:17 ; Status DC Sodium Chloride (NS 1000 ml Inj) 1,000 ml @ 0 mls/hr Q0M PRN IV WITH DIALYSIS Last administered on 05/30/16 09:36; Start 05/14/16 at 14:54 Mannitol (Mannitol Inj) 12.5 gm UNSCH PRN IV WITH DIALYSIS; Start 05/14/16 at 15 :00 Albumin Human (Albumin 25% Inj) 25 gm UNSCH PRN IV WITH DIALYSIS Last administered on 06/29/16 14:10; Start 05/14/16 at 15:00 IV Flush (NS Flush) 5 ml UNSCH PRN IVF WITH DIALYSIS; Start 05/14/16 at 15:00 Heparin Sodium (Porcine) (Heparin Inj) UNSCH PRN .XX WITH DIALYSIS Last administered on 06/29/16 14:12; Start 05/14/16 at 15:00 Gentamicin Sulfate (Gentamicin (Dialysis) Inj) 20 mg UNSCH PRN IV WITH DIALYSIS Last administered on 06/29/16 14:11; Start 05/14/16 at 15:00 Ondansetron HCl (Zofran Inj) 4 mg UNSCH PRN IV WITH DIALYSIS Last administered on 06/28/16 22:00; Start 05/14/16 at 15:00 Acetaminophen (Tylenol) 650 mg UNSCH PRN PO for headach, pain, temp > 101F Last administered on 05/16/16 09:36; Start 05/14/16 at 15:00; Stop 06/06/16 at 12 :39; Status DC Diphenhydramine HCl (Benadryl) 25 mg UNSCH PRN PO for hives/itching/anaphylaxis ; Start 05/14/16 at 15:00 Nitroglycerin (Nitrostat Sl) 0.4 mg UNSCH PRN SL CHEST PAIN; Start 05/14/16 at 15:00 Clonidine (Catapres) 0.1 mg UNSCH PRN PO for BP > 180/100 X 2 readings; Start 05/14/16 at 15:00 Epoetin Porter (Epogen Inj) 10,000 units UNSCH PRN IV WITH DIALYSIS Last administered on 06/29/16 14:11; Start 05/14/16 at 15:00 Gelatin (Gelfoam 12 Mm/7 Mm Top) 1 foam UNSCH PRN TOP SEE LABEL COMMENTS; Start 05/14/16 at 15:00 Insulin Human Regular (NovoLIN R SUPPLEMENTAL SCALE) 1 ACHS SLIDING SCALE SQ Last administered on 05/18/16 17:26; Start 05/14/16 at 21:00; Stop 05/18/16 at 18:24; Status DC Dextrose (D50w (Vial) Inj) 25 ml UNSCH PRN IV PUSH HYPOGLYCEMIA - SEE COMMENTS ; Start 05/14/16 at 18:45 Glucagon (Glucagon Inj) 1 mg UNSCH PRN OTHER HYPOGLYCEMIA-SEE COMMENTS; Start 05/14/16 at 18:45 Sodium Hypochlorite (Dakin'S 0.125% Soln) 120 ml DAILY OTHER Last administered on 05/31/16 08:18; Start 05/17/16 at 15:00; Stop 06/05/16 at 16:32; Status DC Collagenase (Santyl Oint) 1 applic DAILY EXT Last administered on 07/01/16 08: 32; Start 05/17/16 at 15:00 Furosemide (Lasix Inj) 40 mg UNSCH X1 IV PUSH ; Start 05/16/16 at 17:30; Stop at 03:00; Status DC Diatrizoate Meglum/ Diatrizoate Sod ( Gastroraulito Liq) 18 ml ONCE ONCE PO ; Start 05/16/16 at 18:45; Stop 05/16/16 at 19:23; Status DC Diatrizoate Meglum/ Diatrizoate Sod ( Gastroraulito Liq) 18 ml ONCE ONCE PO ; Start 05/17/16 at 08:00; Stop 05/17/16 at 08:01; Status DC Lorazepam 1 mg 1 mg ONCE ONCE IV PUSH Last administered on 05/16/16 23:51; Start 05/16/16 at 23:00; Stop 05/16/16 at 23:03; Status DC Piperacillin Sod/ Tazobactam Sod (Zosyn 2.25 Gm Premix) 50 ml @ 100 mls/hr Q8H IV Last administered on 05/22/16 09:38; Start 05/17/16 at 01:00; Stop at 12:27; Status DC Bupivacaine HCl (Marcaine Pf 0.5% Inj) 30 ml STK-MED ONCE .ROUTE ; Start at 15:51; Stop 05/17/16 at 15:52; Status DC Bupivacaine HCl/ Epinephrine Bitart (Sensorcaine-Epi 0.5% 50 ml Inj) 50 ml STK- MED ONCE .ROUTE Last administered on 05/17/16 17:57; Start 05/17/16 at 15:52; Stop 05/17/16 at 15:53; Status DC Bacitracin (Baciguent Oint) 15 applic STK-MED ONCE .ROUTE ; Start 05/17/16 at 15 :52; Stop 05/17/16 at 15:53; Status DC Lidocaine/ Epinephrine (Xylocaine-Epi 1%-1:100,000 Inj) 50 ml STK-MED ONCE .ROUTE ; Start 05/17/16 at 15:53; Stop 05/17/16 at 15:54; Status DC Epinephrine HCl (Adrenalin (1:1000) Inj) 2 mg STK-MED ONCE .ROUTE Last administered on 05/17/16 17:57; Start 05/17/16 at 16:58; Stop 05/17/16 at 16:59 ; Status DC Lidocaine/ Epinephrine (Xylocaine-Epi 1%-1:100,000 Inj) 50 ml STK-MED ONCE .ROUTE ; Start 05/17/16 at 16:58; Stop 05/17/16 at 16:59; Status DC Miscellaneous Information ALL NURSING DEPARTME... UNSCH PRN XX SEE LABEL COMMENTS; Start 05/17/16 at 19:30; Stop 05/18/16 at 19:29; Status DC Fentanyl Citrate (fentaNYL INJ) 250 mcg STK-MED ONCE .ROUTE ; Start 05/17/16 at 19:21; Stop 05/17/16 at 19:22; Status DC Morphine Sulfate (Morphine Inj) 4 mg STK-MED ONCE .ROUTE ; Start 05/17/16 at 19: 55; Stop 05/17/16 at 19:56; Status DC Insulin Detemir (Levemir Inj) 30 units Q12H SQ Last administered on 05/22/16 18:17; Start 05/18/16 at 18:00; Stop 05/23/16 at 11:55; Status DC Insulin Aspart (NovoLOG SUPPLEMENTAL SCALE) 1 ACHS SLIDING SCALE SQ Last administered on 06/29/16 16:00; Start 05/18/16 at 21:00 Acetaminophen/ Hydrocodone Bitart (Tea 10-325 Mg) 1 tab Q4HR PRN PO PAIN 1-5 Last administered on 06/06/16 12:24; Start 05/19/16 at 20:00; Stop 06/06/16 at 17:08; Status DC Propofol (Diprivan 200 Mg/20 ml Inj) 200 mg STK-MED ONCE IV ; Start 05/17/16 at 12:00; Stop 05/20/16 at 11:33; Status DC Ondansetron HCl 4 mg 4 mg STK-MED ONCE IV PUSH ; Start 05/17/16 at 12:00; Stop 05/20/16 at 11:33; Status DC Parenteral Electrolytes (Normosol R Inj) 1,000 ml @ As Directed STK-MED ONCE IV ; Start 05/17/16 at 12:00; Stop 05/20/16 at 11:33; Status DC Lactulose 30 ml 30 ml ONCE ONCE PO ; Start 05/20/16 at 18:00; Stop 05/20/16 at 18:01; Status DC Cefepime HCl/ Sodium Chloride (Maxipime Inj/NS Inj) 100 ml @ 200 mls/hr DAILY IV Last administered on 06/07/16 08:12; Start 05/22/16 at 13:00; Stop at 12:21; Status DC Acetaminophen/ Hydrocodone Bitart (Tea 5-325 Mg) 1 tab Q4H PRN PO Breakthrough pain/ dressings Last administered on 06/05/16 18:15; Start at 12:00; Stop 06/09/16 at 10:38; Status DC Insulin Detemir (Levemir Inj) 30 units DAILY SQ Last administered on 06/22/16 08:42; Start 05/24/16 at 09:00; Stop 06/22/16 at 11:31; Status DC Insulin Detemir (Levemir Inj) 20 units HS SQ Last administered on 06/20/16 20: 20; Start 05/23/16 at 21:00; Stop 06/22/16 at 11:31; Status DC Silver Nitrate/ Potassium Nitrate (Silver Nitrate Applicators) 1 appl ONCE ONCE TOPICAL ; Start 05/24/16 at 13:15; Stop 05/24/16 at 13:16; Status DC Non-Formulary Medication LIDOCAINE 2% WITH EPINEPHRINE 1:200,... ONCE ONCE OTHER ; Start 05/24/16 at 18:30; Stop 05/24/16 at 18:31; Status DC Sodium Bicarbonate (Sodium Bicarbonate 8.4% Inj) 50 meq ONCE ONCE IV PUSH ; Start 05/24/16 at 18:30; Stop 05/24/16 at 18:32; Status DC Acetaminophen/ Hydrocodone Bitart (Tea 10-325 Mg) 1 tab ONCE ONCE PO Last administered on 05/25/16 12:46; Start 05/25/16 at 10:30; Stop 05/25/16 at 10:37 ; Status DC Midazolam HCl (Versed Inj) 2 mg STK-MED ONCE .ROUTE ; Start 05/26/16 at 07:31; Stop 05/26/16 at 07:32; Status DC Fentanyl Citrate (fentaNYL INJ) 250 mcg STK-MED ONCE .ROUTE ; Start 05/26/16 at 07:31; Stop 05/26/16 at 07:32; Status DC Acetaminophen (Ofirmev Inj) 1,000 mg STK-MED ONCE IV ; Start 05/26/16 at 07:44; Stop 05/26/16 at 07:49; Status DC Lidocaine/ Epinephrine (Xylocaine-Epi 1%-1:100,000 Inj) 30 ml STK-MED ONCE INFIL Last administered on 05/26/16 08:14; Start 05/26/16 at 08:14; Stop 05/26 at 08:23; Status DC Morphine Sulfate (*morphine INJ PERIprocedure ONLY) 8 mg STK-MED ONCE .ROUTE Last administered on 05/26/16 09:12; Start 05/26/16 at 09:11; Stop 05/26/16 at 09:12; Status DC Miscellaneous Information ALL NURSING DEPARTME... UNSCH PRN XX SEE LABEL COMMENTS; Start 05/26/16 at 09:30; Stop 05/27/16 at 09:29; Status DC Senna/Docusate Sodium (Luciana-Colace) 1 tab BID PO Last administered on 08:29; Start 05/26/16 at 21:00 Propofol (Diprivan 200 Mg/20 ml Inj) 200 mg STK-MED ONCE IV ; Start 05/26/16 at 12:00; Stop 05/27/16 at 10:52; Status DC Ondansetron HCl 4 mg 4 mg STK-MED ONCE IV PUSH ; Start 05/26/16 at 12:00; Stop 05/27/16 at 10:52; Status DC Lactated Ringer's (Lr 1000 ml Inj) 1,000 ml @ As Directed STK-MED ONCE IV ; Start 05/26/16 at 12:00; Stop 05/27/16 at 10:52; Status DC Ephedrine Sulfate (ePHEDrine/NS 25 MG/5 ML SYR) 25 mg STK-MED ONCE IV ; Start at 12:00; Stop 05/27/16 at 10:52; Status DC Neostigmine Methylsulfate 3 mg 3 mg STK-MED ONCE IV ; Start 05/26/16 at 12:00; Stop 05/27/16 at 10:52; Status DC Sodium Chloride 1,000 ml @ 50 mls/hr Q20H IV Last administered on 05/27/16 12 :53; Start 05/27/16 at 12:45; Stop 05/27/16 at 17:44; Status DC Iron Sucrose 50 mg/Sodium Chloride 102.5 ml @ 105 mls/hr ONCE ONCE IV ; Start 05/28/16 at 12:00; Stop 05/28/16 at 12:58; Status DC Magnesium Sulfate/ Dextrose (Magnesium Sulfate 1 Gm Premix) 100 ml @ 100 mls/ hr ONCE ONCE IV Last administered on 05/28/16 18:09; Start 05/28/16 at 18:00 ; Stop 05/28/16 at 18:59; Status DC Iron Sucrose 50 mg 50 mg ONCE ONCE IV PUSH Last administered on 05/30/16 12: 25; Start 05/30/16 at 12:00; Stop 05/30/16 at 12:01; Status DC Sodium Thiosulfate/ Sterile Water (Sodium Thiosulfate Inj/ Sterile Water For Inj ) 150 ml @ 150 mls/hr WITH DIALYSIS PRN IV calciphylaxis Last administered on 06/27/16 18:06; Start 06/01/16 at 17:30 Cinacalcet (Sensipar) 30 mg DAILY PO Last administered on 07/01/16 08:28; Start 06/02/16 at 09:00 Miscellaneous Information Patient in critical care unit? Ass... [id number] Last administered on 06/02/16 00:15; Start 06/02/16 at 00:15 Chlorhexidine Gluconate (Chlorhexidine 2% Cloth) 3 pack DAILY@04 TOP Last administered on 06/02/16 00:22; Start 06/02/16 at 04:00; Stop 06/06/16 at 04:01 ; Status DC Chlorhexidine Gluconate (Chlorhexidine 2% Cloth) 3 pack UNSCH PRN TOP HYGIENIC CARE; Start 06/02/16 at 00:15; Stop 06/07/16 at 00:02; Status DC Sevelamer Carbonate (Renvela) 1,600 mg TID PO Last administered on 07/01/16 08 :28; Start 06/03/16 at 13:00 Morphine Sulfate (Morphine Inj) 2 mg ONCE ONCE IV PUSH Last administered on 22:30; Start 06/03/16 at 22:30; Stop 06/03/16 at 22:31; Status DC Hydromorphone HCl (Dilaudid Pf Inj) 1 mg Q4H PRN IV PUSH PAIN 6-10 Last administered on 06/04/16 06:05; Start 06/03/16 at 23:45; Stop 06/04/16 at 09:27 ; Status DC Hydromorphone HCl (Dilaudid Pf Inj) 2 mg Q4H PRN IV PUSH PAIN 6-10 Last administered on 06/06/16 08:16; Start 06/04/16 at 11:45; Stop 06/06/16 at 14:55 ; Status DC Morphine Sulfate (Oramorph Sr) 15 mg Q12HR PO Last administered on 06/07/16 08 :12; Start 06/05/16 at 09:30; Stop 06/07/16 at 12:19; Status DC Povidone Iodine (Betadine 10% Top Soln) 1 applic BID TOPICAL Last administered on 06/18/16 07:55; Start 06/05/16 at 21:00; Stop 06/20/16 at 02:40; Status DC Hydromorphone HCl (Dilaudid) 8 mg Q4HR PRN PO PAIN SCALE 1 TO 10 Last administered on 06/06/16 04:12; Start 06/05/16 at 23:00; Stop 06/06/16 at 08:00 ; Status DC Lidocaine/ Epinephrine (Xylocaine-Epi 1%-1:100,000 Inj) 30 ml STK-MED ONCE .ROUTE ; Start 06/06/16 at 08:45; Stop 06/06/16 at 08:46; Status DC Hydromorphone HCl (Dilaudid Pf Inj) 2 mg Q4H PRN IV PUSH PAIN 1-6 Last administered on 06/07/16 03:38; Start 06/06/16 at 14:55; Stop 06/07/16 at 12:19 ; Status DC Acetaminophen/ Hydrocodone Bitart (Tea 5-325 Mg) 1 tab Q4H PRN PO PAIN SCALE 3 TO 5 Last administered on 06/29/16 17:45; Start 06/06/16 at 17:15 Acetaminophen/ Hydrocodone Bitart (Tea 10-325 Mg) 1 tab Q4H PRN PO PAIN SCALE 6 TO 10 Last administered on 06/10/16 05:14; Start 06/06/16 at 17:15; Stop 06/10/16 at 09:25; Status DC Morphine Sulfate (Oramorph Sr) 30 mg Q12HR PO Last administered on 06/09/16 09: 18; Start 06/07/16 at 21:00; Stop 06/09/16 at 10:38; Status DC Morphine Sulfate (Morphine Inj) 2 mg Q4HR PRN IV PUSH Breakthrough pain Last administered on 06/08/16 18:45; Start 06/08/16 at 15:15; Stop 06/10/16 at 15:36; Status DC Lorazepam (Ativan Inj) 1 mg NOW ONCE IV Last administered on 06/08/16 19:48; Start 06/08/16 at 19:15; Stop 06/08/16 at 19:16; Status DC Morphine Sulfate (Oramorph Sr) 45 mg Q12HR PO Last administered on 06/10/16 08: 33; Start 06/09/16 at 21:00; Stop 06/10/16 at 09:25; Status DC Morphine Sulfate (Oramorph Sr) 15 mg ONCE ONCE PO Last administered on 12:48; Start 06/09/16 at 10:45; Stop 06/09/16 at 10:47; Status DC Alprazolam (Xanax) 0.25 mg Q6H PRN PO Anxiety; Start 06/09/16 at 10:45; Stop 06/10/16 at 09:28; Status DC Polyethylene Glycol (Miralax) 17 gm DAILY PO Last administered on 07/01/16 08: 29; Start 06/09/16 at 10:45 Sodium Biphosphate/ Sodium Phosphate (Fleets Enema (Adult)) 133 ml NOW ONCE RECTAL Last administered on 06/09/16 17:55; Start 06/09/16 at 17:15; Stop at 17:16; Status DC Morphine Sulfate (Oramorph Sr) 15 mg Q12HR PO ; Start 06/10/16 at 21:00; Stop 06/10/16 at 21:00; Status DC Alprazolam (Xanax) 0.125 mg Q6H PRN PO anxiety Last administered on 06/24/16 15:11; Start 06/10/16 at 09:30 Miscellaneous (Pill Splitter) 1 ea UNSCH PRN OTHER SEE LABEL COMMENTS; Start at 10:00 Sodium Hypochlorite (Dakin'S 0.25% Soln) 500 ml DAILY TOPICAL Last administered on 07/01/16 08:48; Start 06/10/16 at 15:00 Acetaminophen/ Hydrocodone Bitart (Tea 10-325 Mg) 1 tab Q4H PRN PO pain 6-10 Last administered on 07/01/16 08:28; Start 06/10/16 at 15:45 Methadone HCl (Dolophine) 2.5 mg Q8H PO ; Start 06/10/16 at 16:00; Stop 06/11/16 at 14:10; Status DC Hydromorphone HCl (Dilaudid Pf Inj) 1 mg Q4H PRN IV PUSH Breakthrough pain Last administered on 07/01/16 04:05; Start 06/10/16 at 15:45 Acetaminophen (Tylenol) 650 mg Q4H PRN PO pain 1-2/ fever Last administered on 06/17/16 17:15; Start 06/10/16 at 20:30 Methadone HCl (Dolophine) 2.5 mg Q12HR PO Last administered on 06/18/16 07:52 ; Start 06/13/16 at 21:00; Stop 06/18/16 at 13:45; Status DC Oxycodone HCl 2.5 mg 2.5 mg ONCE ONCE PO Last administered on 06/16/16 10:54; Start 06/16/16 at 11:00; Stop 06/16/16 at 11:01; Status DC Sodium Chloride 250 ml @ 15 mls/hr ONCE ONCE IV Last administered on 08:15; Start 06/17/16 at 08:15; Stop 06/18/16 at 00:54; Status DC Iron Sucrose/ Sodium Chloride (Venofer Inj/NS Inj) 105 ml @ 50 mls/hr ONCE ONCE IV Last administered on 06/18/16 10:12; Start 06/18/16 at 08:00; Stop 01/24 at 10:05; Status DC Methadone HCl (Dolophine) 2.5 mg Q8HR PO Last administered on 06/20/16 14:31; Start 06/18/16 at 14:00; Stop 06/20/16 at 17:37; Status DC Miscellaneous (Pill Splitter) 1 ea UNSCH PRN OTHER SEE LABEL COMMENTS; Start at 14:15; Status Cancel Silver Nitrate/ Potassium Nitrate (Silver Nitrate Applicators) 1 appl ONCE ONCE TOPICAL Last administered on 06/25/16 16:51; Start 06/19/16 at 09:45; Stop 06/19/16 at 09:58; Status DC Methadone HCl (Dolophine) 2.5 mg Q6HR PO Last administered on 06/26/16 12:21; Start 06/20/16 at 18:00; Stop 06/26/16 at 16:52; Status DC Insulin Detemir (Levemir Inj) 15 units HS SQ Last administered on 06/30/16 21: 14; Start 06/22/16 at 21:00 Insulin Detemir 25 units 25 units DAILY SQ Last administered on 07/01/16 08:31 ; Start 06/23/16 at 09:00 Sodium Chloride (NS 250 ml Inj) 250 ml @ 15 mls/hr ONCE ONCE IV Last administered on 06/27/16 05:45; Start 06/23/16 at 18:15; Stop 06/24/16 at 10:54 ; Status DC Povidone Iodine (Betadine 10% Top Soln) 1 applic DAILY TOP Last administered on 07/01/16 08:32; Start 06/25/16 at 09:00 Acetaminophen/ Hydrocodone Bitart (Tea 5-325 Mg) 1 tab ONCE ONCE PO Last administered on 06/25/16 18:46; Start 06/25/16 at 18:00; Stop 06/25/16 at 18:11 ; Status DC Methadone HCl (Dolophine) 5 mg Q8HR PO Last administered on 07/01/16 06:19; Start 06/26/16 at 22:00 Fluoxetine HCl 30 mg 30 mg DAILY PO Last administered on 07/01/16 08:29; Start 06/27/16 at 09:00 Sodium Chloride (NS 250 ml Inj) 250 ml @ 15 mls/hr ONCE ONCE IV Last administered on 06/26/16 20:30; Start 06/26/16 at 20:30; Stop 06/27/16 at 13:09 ; Status DC Diphenhydramine HCl (Benadryl) 25 mg Q4H PRN PO SEE LABEL COMMENTS; Start 06/26 at 20:30; Stop 06/27/16 at 00:31; Status DC Furosemide 20 mg 20 mg ONCE ONCE IV ; Start 06/26/16 at 20:30; Stop 06/26/16 at 20:35; Status DC Lactated Ringer's 1,000 ml @ 30 mls/hr Q24H PRN IV SEE LABEL COMMENTS; Start at 08:45; Stop 07/01/16 at 08:44; Status DC Sodium Chloride (NS 500 ml Inj) 500 ml @ 30 mls/hr [id number] PRN IV SEE LABEL COMMENTS; Start 06/28/16 at 08:45; Stop 07/01/16 at 08:44; Status DC Metoprolol Tartrate (Lopressor) 25 mg STRIKE ON MACHINE OPERATOR PRN PO SEE LABEL COMMENTS; Start 06/28/16 at 08:45; Stop 07/01/16 at 08:44; Status DC Povidone Iodine (Betadine 5% Antisepsis Kit) 1 applic STRIKE ON MACHINE OPERATOR PRN EACH NARE SEE LABEL COMMENTS; Start 06/28/16 at 08:45; Stop 07/01/16 at 08:44; Status DC Chlorhexidine Gluconate (Chlorhexidine 2% Cloth) 3 pack STRIKE ON MACHINE OPERATOR PRN TOPICAL SEE LABEL COMMENTS; Start 06/28/16 at 08:45; Stop 07/01/16 at 08:44; Status DC Insulin Human Regular (NovoLIN R INJ) See Protocol Table ... 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 SEE PROTOCOL TABLE; Start 06/28/16 at 08:45; Stop 07/01/16 at 08:44; Status DC Epinephrine HCl (Adrenalin (1:1000) Inj) 1 mg STK-MED ONCE .ROUTE Last administered on 06/28/16 14:12; Start 06/28/16 at 12:42; Stop 06/28/16 at 12:43 ; Status DC Lidocaine HCl (Xylocaine 1% Inj (50 ml)) 50 ml STK-MED ONCE .ROUTE Last administered on 06/28/16 14:12; Start 06/28/16 at 12:42; Stop 06/28/16 at 12:43 ; Status DC Midazolam HCl (Versed Inj) 2 mg STK-MED ONCE .ROUTE Last administered on 13:14; Start 06/28/16 at 13:14; Stop 06/28/16 at 13:15; Status DC Midazolam HCl (Versed Inj) 2 mg STK-MED ONCE .ROUTE ; Start 06/28/16 at 13:28; Stop 06/28/16 at 13:29; Status DC Fentanyl Citrate (fentaNYL INJ) 250 mcg STK-MED ONCE .ROUTE ; Start 06/28/16 at 13:28; Stop 06/28/16 at 13:29; Status DC Acetaminophen (Ofirmev Inj) 1,000 mg STK-MED ONCE IV ; Start 06/28/16 at 13:29; Stop 06/28/16 at 13:30; Status DC Midazolam HCl (Versed Inj) 2 mg STK-MED ONCE IV PUSH Last administered on 13:14; Start 06/28/16 at 13:14; Stop 06/28/16 at 14:01; Status DC Vancomycin HCl 1000 mg 1,000 mg STK-MED ONCE .ROUTE Last administered on 14:53; Start 06/28/16 at 14:31; Stop 06/28/16 at 14:32; Status DC Levofloxacin/ Dextrose 100 ml @ As Directed STK-MED ONCE IV ; Start 06/28/16 at 14:32; Stop 06/28/16 at 14:33; Status DC Levofloxacin/ Dextrose (Levaquin 250 Mg Premix Inj) 50 ml @ As Directed STK-MED ONCE IV ; Start 06/28/16 at 14:33; Stop 06/28/16 at 14:34; Status DC Epinephrine HCl (Adrenalin (1:1000) Inj) 1 mg STK-MED ONCE .ROUTE Last administered on 06/28/16 14:56; Start 06/28/16 at 14:44; Stop 06/28/16 at 14:45 ; Status DC Lidocaine HCl (Xylocaine 1% Inj (50 ml)) 50 ml STK-MED ONCE .ROUTE Last administered on 06/28/16 14:56; Start 06/28/16 at 14:44; Stop 06/28/16 at 14:45 ; Status DC Midazolam HCl (Versed Inj) 2 mg STK-MED ONCE .ROUTE ; Start 06/28/16 at 15:14; Stop 06/28/16 at 15:15; Status DC Miscellaneous Information ALL NURSING DEPARTME... UNSCH PRN .XX SEE LABEL COMMENTS; Start 06/28/16 at 16:10; Stop 06/29/16 at 16:09; Status DC Hydromorphone HCl 1 mg 1 mg STK-MED ONCE .ROUTE Last administered on 06/28/16 17:26; Start 06/28/16 at 17:26; Stop 06/28/16 at 17:27; Status DC Vancomycin HCl 1000 mg/Sodium Chloride 250 ml @ 250 mls/hr ONCE ONCE IV ; Start 06/29/16 at 17:30; Stop 06/29/16 at 18:29; Status UNV Pharmacy Profile Note 0 ml @ 0 mls/hr UNSCH OTHER ; Start 06/29/16 at 17:30; Status UNV Piperacillin Sod/ Tazobactam Sod (Zosyn 2.25 Gm Premix) 50 ml @ 100 mls/hr Q8H IV Last administered on 06/30/16 10:05; Start 06/29/16 at 18:00; Stop at 14:56; Status DC A/P Problem List: (1) Open wound of abdomen ICD Code: S31.109A Status: Acute (2) Type II diabetes mellitus with neurological manifestations, uncontrolled ICD Code: E11.49 Status: Chronic (3) End stage renal disease on dialysis ICD Code: N18.6 Status: Chronic (4) Hypertension, benign ICD Code: I10 Status: Chronic (5) Constipation ICD Code: K59.00 Status: Acute Assessment and Plan Abdominal pannus wound cellulitis and ulcer, consulted General Surgery, started on - Status post incision and drainage on 05/26/16-->no improvement in wound to date. - Biopsy negative for calciphylaxis -showed venous stasis dermatitis. -greatly appreciate dr. Meyers's input, panniculectomy performed 06/28 -pain control with lortab 5 mg q 4 hr as needed -per Plastics will allow patient OOB as soon as she can and change dressing with betadine soaked 4x4 directly on the skin daily. -watch for any further necrotic spots showing up. Keep sutures / nba for approx 2 weeks unless they get inflamed. Drains probably 2-3 weeks as well. -management also per wound care nurse. Leukocytosis -most likely reactive due to surgery. clinically doing well and no fevers. doing well off of antibiotics. Morbid Obesity strongly -recommended diet and exercise, weight loss warranted. Hypertension -controlled. T2 DM II -continue sliding scale better control, Hemoglobin A1C 6.8. Hyperlipidemia - continue home medicines ESRD -on Hemodialysis and Friday, at this time going for HD chronic low back pain and chronic pain syndrome on methadone and norco PRN. Anemia of chronic disease worsened with acute blood loss anemia -S/p transfusion on 06/24/16 as well as erythropoietin by nephrology. - Another PRBC transfusion 06/21. Closely monitor. Transfuse if indicated. Received 2 units PRBCs yesterday, blood count improved to 8.5. - Given additional 1 unit PRBCs intraoperatively. Check stat H&H postoperatively, hemoglobin currently 9.8. Stable. DVT prophylaxis with Heparin every 12 hours. Problem Qualifiers (1) Open wound of abdomen: Qualified Code: S31.109A - Open wound of abdomen, initial encounter Suzi Denton MD Jul 01, 2016 10:59
[2016-07-01 12:33] VITALS: BP 119/56; PULSE 87; RESP 18; TEMP 99; O2SAT 94
--- NOTE | 2016-07-01 13:34 | MP ---
cc: KYLER BELL M.D. DATE OF SURGERY: 06/28/2016 PREOPERATIVE DIAGNOSIS Massive lower abdominal pannus with multiple necrotic patches, patient for panniculectomy and excision of necrotic mass of the tissues. POSTOPERATIVE DIAGNOSIS Massive lower abdominal pannus with multiple necrotic patches, patient for panniculectomy and excision of necrotic mass of the tissues. OPERATION Wide excision of necrotic lower abdominal pannus with panniculectomy and partial closure. SURGEON Dr. Bell CO-SURGEONS Dr. Meyers and Dr. Segura [employer] [facility]. INDICATIONS This is a 55-year-old massively obese white female who has been admitted to the [facility], this time starting approximately the first week of May 2016. She was initially seen by me on May 16, 2016 and at that time she had a necrotic large abdominal lower pannus on the right side. This was operated by myself on May 24, 2016. There was an additional area that was operated at bedside on May 27, 2016. After that she was placed on wound care and was being followed by Dr. Meyers and the wound care center team. Over the past several weeks the patient has progressively additional areas of tissue gangrene setting in, in the middle of the pannus and also on the left side of the pannus and the entire pannus needs to be excised to clean the necrotic infected areas and remove the excessive tissue weight that is causing essentially a pressure decubitus situation. The patient has been advised of the surgery by Dr. Meyers and the team preoperatively. She also has been operated by myself and understands the overall risk and complication of the surgery. The surgery is being undertaken by three surgeons and an cardiology physician assistant in order to expedite the surgical time as the patient is high risk for surgical morbidity and mortality. Her hemoglobin is 8.5. She is a dialysis patient and diabetic, massively obese and with severe tissue infection at the same time. PROCEDURE The patient was brought to the operating room, was transferred to the OR table with adequate support and padding and anesthesia was induced. All the areas were fully exposed and prepped. A timeout was called and completed. The pannus extends approximately four feet from [id number] and approximately 12-16 inches front to back. The umbilicus is nearly close to the pubis even in the lying position. The pannus was divided in four parts with preoperative markings. The left side was operated by Dr. Meyers and Savita. The right side was operated by myself and Dr. Segura. Small stab incisions were made on the anterior skin along the planned incision line. Tumescent solution of saline, lidocaine with epinephrine and additional epinephrine was infiltrated under the skin and then through the fatty layers to the deepest part that could be safely palpated. The surgery was started by going straight from skin to the underlying fat and then palpating the fat and looking at the fat color, texture and consistency. All the solidified, calcified and grayish-yellow looking fat was meticulously excised going down from the superficial to the deep layer looking for the large blood vessels, dividing and ligating them in the process to minimize the blood loss and protecting the inguinal area, particularly looking for the presence of any undiagnosed hernias. The pannus was allowed to lead the way by its own weight and gravity. When the posterior aspect of the pannus was reached, a three inch cuff of the skin was preserved removing all the obviously necrotic skin along with the specimen. Four separate pieces of the specimen were removed. Additional fat excision was carried out whenever it was found to be of doubtful viability and hemostasis was completed with suture ligature. The total weight of the tissue removed was 8.25 kg, approximately 20 pounds total. The tissue flaps were approximated in a few places with nba to line up the overall closure. Four Anish-Hunter drains were used, two from the lateral entrance and two from near the midline entrance covering the entire passage. The closure was done with large mass sutures using 0 Prolene vertical and horizontal mattress sutures and combining with nba to approximate the skin in a better way. The overall blood loss was in the range of 200-250 cc including the blood inside the specimen itself. Free blood loss was actually less than 100 cc. The patient also received two units of packed red cells intraoperatively in order to maintain her hemoglobin level as well. The patient remained stable. All the areas were cleaned and dried. Drains were secured and activated. Betadine-soaked Adaptic and ABD pad dressing was applied. The patient was allowed to recover from anesthesia and was transferred to the recovery room in a stable condition. No complications. SIGNED, NOT FULLY REVIEWED MD SAUD Parnell /10:09 AM /1:18 PM [facility]
[2016-07-01] MEDS: ALPRAZolam 0.25 MG TAB PO PRN ×2 (14:40→22:12)
--- NOTE | 2016-07-01 15:45 | PD.PLAS.PN ---
Subjective Remarks Patient lying comfortably. She complains that she is having pain in the sacral area. PT has been here today, but the patient was too sleepy from pain medication to get out of bed. Objective Vital Signs Date Time Temp Pulse Resp B/P Pulse Ox O2 Delivery O2 Flow Rate FiO2 07/01/16 12:33 99.0 87 18 119/56 94 07/01/16 08:26 98.9 92 18 100/50 93 07/01/16 07:17 Room Air 07/01/16 04:00 98.9 89 20 136/63 93 07/01/16 02:13 98.5 88 18 101/61 92 06/30/16 21:15 Room Air 06/30/16 20:00 99.3 94 20 119/59 93 06/30/16 20:00 91 06/30/16 16:00 98.8 87 16 146/65 92 I/O 06/30/16 06/30/16 06/30/16 07/01/16 07/01/16 07/01/16 07:00 15:00 23:00 07:00 15:00 23:00 Intake Total 340 ml 320 ml Output Total 40 ml 55 ml Balance -40 ml 340 ml 265 ml Intake Oral 340 ml 320 ml Drainage Total 40 ml 55 ml # Voids 2 # Bowel Movements 0 Result Diagram: 06/29/16 0416 06/29/16 0416 Exam Findings Patient is lying comfortably in bed. Coccygeal pressure ulcer is present. There is no evidence of infection. There is no tunneling or undermining. See [facility] notes for measurements. There is necrotic tissue present with an odor. Surrounding tissue is clean and dry without evidence of cellulitis. Abdominal wound is not visualized today. Drains are present. Assessment and Plan Diagnosis: (1) Open wound of abdomen Assessment and Plan The coccygeal pressure ulcer is dressed with a povidone iodine wet to dry dressing. There is bleeding of the wound during the dressing change, which is controlled with pressure prior to applying new dressing. The patient may not be a good candidate for wound vac because of this. We will continue with daily dressing changes with Dana Royal Jul 01, 2016 15:45
[2016-07-01 16:24] VITALS: BP 107/53; PULSE 83; RESP 18; TEMP 98.4; O2SAT 94
--- NOTE | 2016-07-01 17:44 | HHI.NPPN ---
Subjective History of Present Illness 55-year-old female known to me from before with past medical history of diabetes mellitus, history of morbid obesity, end-stage renal disease on hemodialysis three times per week, history of chronic anemia, congestive heart failure, spinal stenosis, chronic back pain, hypothyroidism who came to the hospital with complaint of worsening lower abdominal wound. I was called to see the patient for the management of dialysis. The patient has been on hemodialysis Friday, and Friday. Additional Remarks Patient is alert, no SOB, has mild abd. pain, eating well. Review of Systems General Constitutional: Fatigue Respiratory Lungs: SOB Cardiovascular Cardiac: GRIFFIN Objective Data Data 06/30/16 07/01/16 19:00 07:00 Intake Total 340 ml 320 ml Output Total 55 ml Balance 340 ml 265 ml Intake Oral 340 ml 320 ml Drainage Total 55 ml # Voids 2 # Bowel Movements 0 Vital Signs Date Time Temp Pulse Resp B/P Pulse Ox O2 Delivery O2 Flow Rate FiO2 07/01/16 16:24 98.4 83 18 107/53 94 07/01/16 12:33 99.0 87 18 119/56 94 07/01/16 08:26 98.9 92 18 100/50 93 07/01/16 07:17 Room Air 07/01/16 04:00 98.9 89 20 136/63 93 07/01/16 02:13 98.5 88 18 101/61 92 06/30/16 21:15 Room Air 06/30/16 20:00 99.3 94 20 119/59 93 06/30/16 20:00 91 -: 06/29/16 0416 06/29/16 0416 Physical Exam General Appearance: No Acute Distress, Comfortable Eyes Eye Exam: Pupils Equal Throat Throat Exam: Oral Mucosa [place] & Moist Neck Neck Exam: Neck Supple Pulmonary Resp Exam: Breath Sounds Equal, Crackles, Decreased Bases, Diminished Breath Sounds Gastrointestinal/Abdomen GI Exam: Soft, Non-Tender, Distended Extremeties Extremities Exam: Moderate Edema, Pitting Edema, Dependent Edema Neurologic Neuro Exam: Alert, Awake, Oriented Assessment/Plan Assessment Summary: Anemia of CKD, Hypertension, End Stage Renal Disease Problem List: (1) Anemia in chronic kidney disease (CKD) (2) Open wound of abdomen (3) Chronic stasis dermatitis (4) End stage kidney disease Plan Continue the wound care. ID is following. 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 Seen by plastic surgery and had debridement of Rt. buttock area. Also has debridement of abd. wound done. Ongoing anemia, on epogen with HD. Skin Biopsy done, no Calciphylaxis noted. Hgb. is low off and on and getting transfusion. On Epogen , refusing iron. Has repeat debridement done. HD to continue TTS. Wound care , follow Calcium/Po4 level. Problem Qualifiers (1) Open wound of abdomen: Qualified Code: S31.109A - Open wound of abdomen, initial encounter Valentin Jimenez MD Jul 01, 2016 17:44
[2016-07-01 20:00] VITALS: BP 137/66; PULSE 86; RESP 20; TEMP 98.4; O2SAT 92
[2016-07-01] MEDS: ATORVASTATIN 80 MG TAB PO SCH (22:10)
[2016-07-01] MEDS: HYDROmorphone HCL PF 2 MG/ML VIAL IV PUSH PRN (22:14)
[2016-07-02] VITALS (10 sets, daily range): BP systolic 100–139; BP diastolic 56–65; PULSE 80–96; RESP 18–20; TEMP 98.3–99.1; O2SAT 92–97
[2016-07-02] MEDS: LEVOTHYROXINE SODIUM 150 MCG TAB PO SCH (05:40)
[2016-07-02] MEDS: ACETAMINOPHEN/HYDROcodone 325 MG/10 MG TAB PO PRN ×3 (05:41→18:00)
[2016-07-02] MEDS: METHADONE HCL 10 MG TAB PO SCH ×3 (05:41→20:40)
[2016-07-02] MEDS: HIGH DOSE INSULIN NOVOLOG SUPPLEMENTAL SCALE SQ SCH ×4 (06:57→20:39)
[2016-07-02] MEDS: FLUoxetine HCL 10 MG CAP PO SCH (08:38)
[2016-07-02] MEDS: GABAPENTIN 100 MG CAP PO SCH ×2 (08:38→20:40)
[2016-07-02] MEDS: ASPIRIN EC 81 MG TABEC PO SCH (08:38)
[2016-07-02] MEDS: CALCITRIOL 0.25 MCG CAP PO SCH (08:38)
[2016-07-02] MEDS: DOCUSATE SODIUM 50 MG/SENNA 8.6 MG TAB PO SCH ×2 (08:38→20:40)
[2016-07-02] MEDS: INSULIN DETEMIR 100 UNITS/ML VIAL SQ SCH ×2 (08:39→20:39)
[2016-07-02] MEDS: SODIUM CHLORIDE 0.9% FLUSH 5 ML FLUSH FLUSH SCH ×2 (08:39→20:46)
[2016-07-02] MEDS: POLYETHYLENE GLYCOL 17 GM PKG PO SCH (08:39)
[2016-07-02] MEDS: CINACALCET HYDROCHLORIDE 30 MG TAB PO SCH (08:39)
[2016-07-02] MEDS: POVIDONE IODINE 10% SOLN 118 ML BOTTLE TOP SCH (08:39)
[2016-07-02] MEDS: SEVELAMER CARBONATE 800 MG TAB PO SCH ×3 (08:39→17:44)
[2016-07-02] MEDS: SODIUM HYPOCHLORITE 0.25% 500 ML BTL TOPICAL SCH (08:40)
[2016-07-02] MEDS: COLLAGENASE OINT 30 GM TUBE EXT SCH (08:50)
[2016-07-02] MEDS: HYDROmorphone HCL PF 2 MG/ML VIAL IV PUSH PRN (08:50)
--- NOTE | 2016-07-02 11:01 | HHI.NPPN ---
Subjective History of Present Illness 55-year-old female known to me from before with past medical history of diabetes mellitus, history of morbid obesity, end-stage renal disease on hemodialysis three times per week, history of chronic anemia, congestive heart failure, spinal stenosis, chronic back pain, hypothyroidism who came to the hospital with complaint of worsening lower abdominal wound. I was called to see the patient for the management of dialysis. The patient has been on hemodialysis Friday, and Friday. Additional Remarks Patient is alert, has more back pain and cannot move much, no SOB. Review of Systems General Constitutional: Fatigue Respiratory Lungs: SOB Cardiovascular Cardiac: GRIFFIN Objective Data Data 07/01/16 07/02/16 19:00 07:00 Intake Total 360 ml 240 ml Output Total 67 ml 70 ml Balance 293 ml 170 ml Intake Oral 360 ml 240 ml Drainage Total 67 ml 70 ml # Voids 2 0 # Bowel Movements 0 0 Vital Signs Date Time Temp Pulse Resp B/P Pulse Ox O2 Delivery O2 Flow Rate FiO2 07/02/16 09:09 Room Air 21 07/02/16 08:02 98.8 83 18 100/56 93 07/02/16 06:56 18 07/02/16 06:56 18 07/02/16 06:49 81 07/02/16 04:00 98.3 84 20 139/63 92 07/02/16 00:00 98.6 83 18 116/65 92 07/01/16 22:30 18 07/01/16 22:15 Room Air 07/01/16 20:00 98.4 86 20 137/66 92 07/01/16 16:24 98.4 83 18 107/53 94 07/01/16 12:33 99.0 87 18 119/56 94 -: 06/29/16 0416 06/29/16 0416 Physical Exam General Appearance: No Acute Distress, Comfortable Eyes Eye Exam: Pupils Equal Throat Throat Exam: Oral Mucosa [place] & Moist Neck Neck Exam: Neck Supple Pulmonary Resp Exam: Breath Sounds Equal, Crackles, Decreased Bases, Diminished Breath Sounds Gastrointestinal/Abdomen GI Exam: Soft, Non-Tender, Distended Extremeties Extremities Exam: Moderate Edema, Pitting Edema, Dependent Edema Neurologic Neuro Exam: Alert, Awake, Oriented Assessment/Plan Assessment Summary: Anemia of CKD, Hypertension, End Stage Renal Disease Problem List: (1) Anemia in chronic kidney disease (CKD) (2) Open wound of abdomen (3) Chronic stasis dermatitis (4) End stage kidney disease Plan Continue the wound care. ID is following. 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 Seen by plastic surgery and had debridement of Rt. buttock area. Also has debridement of abd. wound done. Ongoing anemia, on epogen with HD. Skin Biopsy done, no Calciphylaxis noted. On Epogen , refusing iron. Has repeat debridement done. HD to continue TTS. Patient is refusing HD for today, due to pain. She understand the possible side effects. She is suppose to get PT. I will discuss tomorrow about possible HD. Problem Qualifiers (1) Open wound of abdomen: Qualified Code: S31.109A - Open wound of abdomen, initial encounter Valentin Jimenez MD Jul 02, 2016 11:01
--- NOTE | 2016-07-02 12:16 | HHI.HCPN ---
Reason for visit a. To assist with evaluation and management of symptoms including: follow up on wound pain, anxiety, depression b. To assist medical decision maker(s) with: better understanding of current medical conditions; weighing benefits/burdens of medical treatment options; making medical treatment decisions. (Criss Owens) Subjective/Interval History Pt seen today to follow-up on comfort, pain level, anxiety, education for upcoming surgery, as well as goals. Evaluate effectiveness of increase in Methadone to 5 mg TID 06/26/16. Stable, continues to have some anemia, H&H improving s/p panniculectomy with reduced wound drainage. S/P panniculectomy by Elizabeth [facility], Friday06/28/16. C/O some significant pain with bedbound status in coccyx area , feels like there is a "bar across the bed, pressing into her". She discussed this with the charge nurse who is contacting the [employer] for assistance. This was reinforced with the RN to follow, as her immobility is increasing her pain, which is impacting her ability to rehabilitate. Has Luke, hydromorphone prn in addition to scheduled methadone. She states the abdominal incisional pain is mild in the 3-4/10 range, but the coccyx pain is in the 9-10/10 range and is the pain she is medicating with hydromorphone. This is increasing her lethargy. Per PT notes, patient has been too sleepy to follow directions with therapy and too lethargic to try to stand. Today patient seen in room, son at bedside, with (EARL Machuca). She is alert , oriented, pleasant. She feels better after her surgery. She and her son appear to have good understanding, goals remain aggressive she wishes to continue to pursue whatever measures are necessary to help her get better. She states her anxiety has improved on increased Prozac but still requiring intermittent breakthrough Xanax for anxiety management. (Criss Owens) Advance Directives Living Will: Copy in medical record (Criss Owens) Advance Directive Specifics Date completed: 09/2015 Health Care Surrogate(s): Primary surrogate named as son Moy Foley, secondary Robb Toledo . (Criss Owens) Objective Vital Signs Date Time Temp Pulse Resp B/P Pulse Ox O2 Delivery O2 Flow Rate FiO2 07/02/16 09:09 Room Air 21 07/02/16 08:02 98.8 83 18 100/56 93 07/02/16 06:56 18 07/02/16 06:56 18 07/02/16 06:49 81 07/02/16 04:00 98.3 84 20 139/63 92 07/02/16 00:00 98.6 83 18 116/65 92 07/01/16 22:30 18 07/01/16 22:15 Room Air 07/01/16 20:00 98.4 86 20 137/66 92 07/01/16 16:24 98.4 83 18 107/53 94 07/01/16 12:33 99.0 87 18 119/56 94 Intake & Output 07/02/16 07/02/16 07:00 19:00 Intake Total 240 ml Output Total 70 ml Balance 170 ml Intake Oral 240 ml Drainage Total 70 ml # Voids 0 # Bowel Movements 0 Physical Exam CONSTITUTIONAL/GENERAL: Obese, chronically ill-appearing female, pleasant, sleepy, oriented TUBES/LINES/DRAINS: Dialysis access right upper chest nearing jugular. PIV R forearm SKIN: Abdominal wounds, dressed. Bilateral lower extremities with significant hyperkeratotic skin thickening . Skin temperature warm. CARDIOVASCULAR: Heart sounds regular, heart sounds distant. 2/6 systolic ejection murmur heard best at LSB. Significant lymphedema to lower extremities , unable to palpate pedal pulses, palpable radial pulses RESPIRATORY/CHEST: Symmetric, unlabored respirations on room air. Clear to auscultation. Decreased air movement throughout. GASTROINTESTINAL: Abdomen obese, + tender in incisional area. Bowel sounds present. Lower abdominal incision dressed CDI, MELIA drains X 4 intact with small serosanguineous drainage, Reported wound to buttocks not visualized. NEUROLOGICAL: Sleepy, nods off during conversation, oriented x3 appropriate, appears to have good insight. Moves all 4 extremities with generalized weakness , recent fall. PSYCHIATRIC: no anxiety today. (Criss Owens) Diagnostic Tests Result Diagram: 06/29/16 0416 06/29/16415 Procedures * 310I&D done by Dr. Johnson--->> overall area of excision approximately 25 cm x 10 cm vertical, at a depth of 6-8 cm. * 05/26 to OR for repeat I&D * 06/28 Panniculectomy (Criss Owesn) Assessment and Plan Disease Oriented Problem List: (1) Hypertension, benign (2) Pseudomonas aeruginosa infection (3) Symptomatic anemia (4) Anemia in chronic kidney disease (CKD) (5) End stage renal disease on dialysis (6) Anxiety (7) Asterixis (8) Sepsis (9) Diabetes (10) Chronic back pain Symptom Scale: (1) Anxiety 0-10 Scale: Unable to quantify (2) Depression 0-10 Scale: Unable to quantify (3) Malnutrition 0-10 Scale: Unable to quantify (4) Pain 0-10 Scale: 10 Pertinent Non-Medical Issues Psychosocial:Patient , lives at home with her son and significant other. Supported by adult son, sister, sig other, and mother. 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 Originally from [place], lived in [place] for many years on and off. Spiritual:anabaptism- crtt has been in Legal:Patient currently capacitated and able to make her own medical decisions. 5 wishes directive document completed in 2016 names primary HCS as (son) Moy Foley, secondary as (sig other) Robb Toledo. Ethical issues impacting care: Important Contacts Son Moy Foley- [phone] Prognosis This unfortunate patient was admitted with worsening wounds to the abdomen, which have continued to worsen despite aggressive antibiotic and surgical management. She has multiple chronic medical comorbidities including diabetes, cardiovascular disease and end-stage renal failure dependent on dialysis. 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 Given her overall compromised state she remains high risk for further complications and setbacks. She is s/p panniculectomy 06/28/16. Her sacral pain has been ranging from 9-10 and she has been requesting hydromorphone IV 1-2 X daily and PRN Luke approximately3 X daily in addition to scheduled Methadone 5 mg po Q8H. Her abdominal incision pain has consistently been in the 3-4/10 range. Code Status: Full Code Plan * Legal decision maker: Patient is currently able to make her own decisions. She has documents naming her son is primary decision-maker should she become incapacitated. Her significant other is named as secondary. * Goals: Patient's goals are aggressive, she wishes to continue whatever therapies are recommended to help her overall improvement and long-term prognosis. Hospice has been previously discussed but she is not ready to transition to comfort measures only. She is most concerned about managing her sacral pain. She has also agreed to increasing her prozac dose for her anxiety and using PRN Xanax if needed. * CODE STATUS: Full code * SYMPTOMS: --Pain-ongoing chronic back pain related to prior injury, previously well controlled with Luke use in the home. C/O significant pain with movement, repositioning and dressing changes. --Pt had been on long acting morphine, which was discontinued due to lethargy , requiring reversal with narcan. Given her renal insufficiency, methadone or fentanyl would be the better option.She has not had lethargy with methadone and this was increased from 2.5 mg po Q6H to 5 mg po Q8H 06/26. Since surgery, she has been using IV Dilaudid for control of severe sacral pain, which is impacting her ability to rehabilitate. Would recommend continuing PT to try an mobilize patient to decrease sacral pain, rather than increasing pain meds which would increase lethargy. Charge nurse is contacting [employer] for recommendations. --anxiety- better on increased prozac, 0.125 MG xanax available, makes her very sedated. -- depression- situational, patient with multiple chronic comorbid medical conditions-exploration with patient use of antidepressant for long-term assistance with depression related to long-term disease process. She is currently on Prozac 20 mg daily and this will be uptitrated for better anxiety and depression control. --Malnutritionchronic. Albumin 1.3, Prealbumin 9. Poor appetite, son brings her food, but she eats little. Tatamy to be impacting wound healing. Taking Nepro supplements. Continue to evaluate. * Palliative care will continue to follow during hospital course as condition evolves, to assist patient/decision-maker with understanding of medical conditions, weighing benefits/burdens of treatment options, for clarification of goals of treatment. Additionally will assist with any symptoms of palliative concern. (Criss Owens) Collaborating Comments Dual visit with Perri ELLIOTT. Agree with above documentation. Patient seen in room with son present. She is alert, oriented pleasant. She indicates overall feeling better since her surgery her abdominal pain has generally decreased significantly since then. She endorses ongoing pain to her coccyx region she feels like a portion of the bed is putting pressure on her tailbone--her son further details that they have looked at the bed and staff members have felt in the specific areas and they have not been able to locate an actual mechanical source though the bed used equipment sales representative has been contacted to further evaluate the bed surface. Patient continues to have some PRN requirements 2-3 Luke per day, 2-3 dilaudid doses per day, which she indicates she is primarily using for the coccyx pain. She endorses overall her anxiety is okay though she is occasionally using xanax- - per documentation utilized 2 doses yesterday but otherwise had not used any in several days. PE: CONSTITUTIONAL/GENERAL: Obese, chronically ill-appearing female, pleasant TUBES/LINES/DRAINS: Dialysis access right upper chest nearing jugular. PIV R forearm SKIN: Abdominal wounds, dressing clean and dry. Bilateral lower extremities with significant hyperkeratotic skin thickening . Skin temperature warm. RESPIRATORY/CHEST: Symmetric, unlabored respirations on room air. Clear to auscultation. Decreased air movement throughout. GASTROINTESTINAL: Abdomen obese, + tender in incisional area-- Large transverse abd dressing secured w elastic kole-wrap tape+MELIA drains X 4 intact with small serosanguineous drainage . Bowel sounds present. NEUROLOGICAL: at times awake, bright, but nods off during conversation. oriented x3 appropriate, appears to have good insight. Moves all 4 extremities with generalized weakness PSYCHIATRIC: no anxiety today. (Vangie Anguiano) Criss Owens Jul 02, 2016 12:16 Vangie Anguiano Jul 02, 2016 15:43
--- NOTE | 2016-07-02 13:04 | HHI.PR ---
Subjective Remarks Follow-up for wound Patient refused dialysis due to her buttock pain. I dealt with physical therapists by patient's room and she stated that patient has also been refusing physical therapy because she is " too tired after dialysis." To do physical therapy. Patient stated to me that she will work with physical therapy. Otherwise she remains afebrile. Objective Vitals Vital Signs Date Time Temp Pulse Resp B/P Pulse Ox O2 Delivery O2 Flow Rate FiO2 07/02/16 12:12 99.1 86 18 111/58 97 07/02/16 09:09 Room Air 21 07/02/16 08:02 98.8 83 18 100/56 93 07/02/16 06:56 18 07/02/16 06:56 18 07/02/16 06:49 81 07/02/16 04:00 98.3 84 20 139/63 92 07/02/16 00:00 98.6 83 18 116/65 92 07/01/16 22:30 18 07/01/16 22:15 Room Air 07/01/16 20:00 98.4 86 20 137/66 92 07/01/16 16:24 98.4 83 18 107/53 94 I/O 07/01/16 07/01/16 07/01/16 07/02/16 07/02/16 07/02/16 07:00 15:00 23:00 07:00 15:00 23:00 Intake Total 360 ml 240 ml 0 ml Output Total 67 ml 70 ml Balance 360 ml 173 ml -70 ml Intake Oral 360 ml 240 ml 0 ml Drainage Total 67 ml 70 ml # Voids 2 0 0 # Bowel Movements 0 0 0 Result Diagram: 06/29/16 0416 06/29/16 0416 Objective Remarks GENERAL: Pleasant, morbidly obese middle-age female patient. CARDIOVASCULAR: Regular rate and rhythm without murmurs, gallops, or rubs. RESPIRATORY: Breath sounds equal bilaterally. No accessory muscle use. GASTROINTESTINAL: wound with sutures in place. MELIA showed serosangious fluid. Procedures I&D Debridement Skin biopsy on 06/06 Medications and IVs Current Medications Sodium Chloride 250 ml @ 15 mls/hr ONCE ONCE IV ; Start 05/14/16 at 13:15; Stop 05/15/16 at 05:54; Status DC Piperacillin Sod/ Tazobactam Sod 50 ml @ 100 mls/hr ONCE ONCE IV Last administered on 05/14/16 13:56; Start 05/14/16 at 13:45; Stop 05/14/16 at 14:14; Status DC Vancomycin HCl 1000 mg/Sodium Chloride 250 ml @ 250 mls/hr ONCE ONCE IV ; Start 05/14/16 at 13:45; Stop 05/14/16 at 13:51; Status DC Vancomycin HCl/ Sodium Chloride (Vancomycin Inj/ NS 500 ml Inj) 517.5 ml @ 258.75 mls/ hr ONCE ONCE IV ; Start 05/14/16 at 14:00; Stop 05/14/16 at 14:42; Status DC Amlodipine Besylate (Norvasc) 5 mg BID PO Last administered on 05/26/16 21:07 ; Start 05/14/16 at 21:00; Status Hold Aspirin (Ecotrin Ec) 81 mg DAILY PO Last administered on 07/02/16 08:38; Start 05/15/16 at 09:00 Atenolol (Tenormin) 50 mg BID PO Last administered on 05/26/16 21:07; Start at 21:00; Status Hold Atorvastatin Calcium (Lipitor) 80 mg HS PO Last administered on 07/01/16 22:10 ; Start 05/14/16 at 21:00 Lisinopril (Prinivil) 20 mg BID PO Last administered on 05/26/16 21:15; Start 05/14/16 at 21:00; Status Hold Calcitriol (Rocaltrol) 0.5 mcg DAILY PO Last administered on 07/02/16 08:38; Start 05/15/16 at 09:00 Fluoxetine HCl (PROzac) 20 mg DAILY PO Last administered on 06/26/16 09:07; Start 05/15/16 at 09:00; Stop 06/26/16 at 17:09; Status DC Gabapentin (Neurontin) 100 mg BID PO Last administered on 07/02/16 08:38; Start 05/14/16 at 21:00 Acetaminophen/ Hydrocodone Bitart (Joppa 10-325 Mg) 1 tab Q6H PRN PO PAIN Last administered on 05/19/16 15:00; Start 05/14/16 at 14:15; Stop 05/19/16 at 16:26 ; Status DC Levothyroxine Sodium (Synthroid) 300 mcg DAILY@0600 PO Last administered on 05:40; Start 05/15/16 at 06:00 Meclizine HCl (Antivert) 25 mg TID PRN PO VERTIGO; Start 05/14/16 at 14:15 Sevelamer Carbonate (Renvela) 800 mg TID PO Last administered on 06/03/16 09: 13; Start 05/14/16 at 18:00; Stop 06/03/16 at 11:42; Status DC Tizanidine HCl (Zanaflex) 4 mg TID PRN PO MUSCLE SPASM Last administered on 23:13; Start 05/14/16 at 14:15; Stop 06/10/16 at 09:27; Status DC IV Flush (NS Flush) 2 ml UNSCH PRN FLUSH FLUSH AFTER USING IV ACCESS Last administered on 05/28/16 18:09; Start 05/14/16 at 14:30 IV Flush (NS Flush) 2 ml BID FLUSH Last administered on 07/02/16 08:39; Start 05/14/16 at 21:00 Acetaminophen (Tylenol) 650 mg Q4H PRN PO FEVER Last administered on 06/02/16 02:49; Start 05/14/16 at 14:30; Stop 06/06/16 at 12:39; Status DC Ondansetron HCl (Zofran Inj) 4 mg Q6H PRN IVP NAUSEA OR VOMITING Last administered on 06/15/16 07:15; Start 05/14/16 at 14:30 Metoclopramide HCl (Reglan Inj) 5 mg Q6H PRN IV PUSH NAUSEA OR VOMITING Last administered on 06/13/16 21:36; Start 05/14/16 at 14:30 Bisacodyl (Dulcolax Supp) 10 mg DAILY PRN [place] CONSTIPATION; Start 05/14/16 at 14: 30 Docusate Sodium (Colace) 100 mg Q12HR PO Last administered on 05/26/16 09:00; Start 05/14/16 at 21:00; Stop 05/26/16 at 12:34; Status DC Heparin Sodium (Porcine) (Heparin Inj) 5,000 units Q12H SQ Last administered on 06/27/16 06:08; Start 05/14/16 at 16:00; Status Hold Naloxone HCl 0.4 mg 0.4 mg UNSCH PRN IV SEE LABEL COMMENTS Last administered on 06/10/16 19:16; Start 05/14/16 at 14:30 Piperacillin Sod/ Tazobactam Sod 50 ml @ 100 mls/hr Q8H IV Last administered on 05/16/16 12:12; Start 05/14/16 at 22:00; Stop 05/16/16 at 23:48; Status DC Pharmacy Profile Note 0 ml @ 0 mls/hr UNSCH OTHER ; Start 05/14/16 at 14:45; Status Cancel Vancomycin HCl 2000 mg/Sodium Chloride 520 ml @ 258.75 mls/ hr ONCE ONCE IV Last administered on 05/14/16 15:05; Start 05/14/16 at 15:00; Stop 05/14/16 at 17: 00; Status DC Sodium Chloride (NS 1000 ml Inj) 1,000 ml @ 0 mls/hr Q0M PRN IV For Prime & Rinse Back Last administered on 06/18/16 10:13; Start 05/14/16 at 14:54 Heparin Sodium (Porcine) 8000 units 8,000 units UNSCH PRN IVF WITH DIALYSIS; Start 05/14/16 at 15:00 Sodium Chloride 1,000 ml @ 200 mls/hr Q5H PRN IV WITH DIALYSIS Last administered on 05/28/16 08:38; Start 05/14/16 at 14:54; Stop 06/07/16 at 12:17 ; Status DC Sodium Chloride (NS 1000 ml Inj) 1,000 ml @ 0 mls/hr Q0M PRN IV WITH DIALYSIS Last administered on 05/30/16 09:36; Start 05/14/16 at 14:54 Mannitol (Mannitol Inj) 12.5 gm UNSCH PRN IV WITH DIALYSIS; Start 05/14/16 at 15 :00 Albumin Human (Albumin 25% Inj) 25 gm UNSCH PRN IV WITH DIALYSIS Last administered on 06/29/16 14:10; Start 05/14/16 at 15:00 IV Flush (NS Flush) 5 ml UNSCH PRN IVF WITH DIALYSIS; Start 05/14/16 at 15:00 Heparin Sodium (Porcine) (Heparin Inj) UNSCH PRN .XX WITH DIALYSIS Last administered on 06/29/16 14:12; Start 05/14/16 at 15:00 Gentamicin Sulfate (Gentamicin (Dialysis) Inj) 20 mg UNSCH PRN IV WITH DIALYSIS Last administered on 06/29/16 14:11; Start 05/14/16 at 15:00 Ondansetron HCl (Zofran Inj) 4 mg UNSCH PRN IV WITH DIALYSIS Last administered on 06/28/16 22:00; Start 05/14/16 at 15:00 Acetaminophen (Tylenol) 650 mg UNSCH PRN PO for headach, pain, temp > 101F Last administered on 05/16/16 09:36; Start 05/14/16 at 15:00; Stop 06/06/16 at 12 :39; Status DC Diphenhydramine HCl (Benadryl) 25 mg UNSCH PRN PO for hives/itching/anaphylaxis ; Start 05/14/16 at 15:00 Nitroglycerin (Nitrostat Sl) 0.4 mg UNSCH PRN SL CHEST PAIN; Start 05/14/16 at 15:00 Clonidine (Catapres) 0.1 mg UNSCH PRN PO for BP > 180/100 X 2 readings; Start 05/14/16 at 15:00 Epoetin Porter (Epogen Inj) 10,000 units UNSCH PRN IV WITH DIALYSIS Last administered on 06/29/16 14:11; Start 05/14/16 at 15:00 Gelatin (Gelfoam 12 Mm/7 Mm Top) 1 foam UNSCH PRN TOP SEE LABEL COMMENTS; Start 05/14/16 at 15:00 Insulin Human Regular (NovoLIN R SUPPLEMENTAL SCALE) 1 ACHS SLIDING SCALE SQ Last administered on 05/18/16 17:26; Start 05/14/16 at 21:00; Stop 05/18/16 at 18:24; Status DC Dextrose (D50w (Vial) Inj) 25 ml UNSCH PRN IV PUSH HYPOGLYCEMIA - SEE COMMENTS ; Start 05/14/16 at 18:45 Glucagon (Glucagon Inj) 1 mg UNSCH PRN OTHER HYPOGLYCEMIA-SEE COMMENTS; Start 05/14/16 at 18:45 Sodium Hypochlorite (Dakin'S 0.125% Soln) 120 ml DAILY OTHER Last administered on 3/24/17at 08:18; Start 05/17/16 at 15:00; Stop 06/05/16 at 16:32; Status DC Collagenase (Santyl Oint) 1 applic DAILY EXT Last administered on 07/02/16 08: 50; Start 05/17/16 at 15:00 Furosemide (Lasix Inj) 40 mg UNSCH X1 IV PUSH ; Start 05/16/16 at 17:30; Stop at 03:00; Status DC Diatrizoate Meglum/ Diatrizoate Sod ( Gastroraulito Liamada) 18 ml ONCE ONCE PO ; Start 05/16/16 at 18:45; Stop 05/16/16 at 19:23; Status DC Diatrizoate Meglum/ Diatrizoate Sod ( Gastroraulito Liamada) 18 ml ONCE ONCE PO ; Start 05/17/16 at 08:00; Stop 05/17/16 at 08:01; Status DC Lorazepam 1 mg 1 mg ONCE ONCE IV PUSH Last administered on 05/16/16 23:51; Start 05/16/16 at 23:00; Stop 05/16/16 at 23:03; Status DC Piperacillin Sod/ Tazobactam Sod (Zosyn 2.25 Gm Premix) 50 ml @ 100 mls/hr Q8H IV Last administered on 05/22/16 09:38; Start 05/17/16 at 01:00; Stop at 12:27; Status DC Bupivacaine HCl (Marcaine Pf 0.5% Inj) 30 ml STK-MED ONCE .ROUTE ; Start at 15:51; Stop 05/17/16 at 15:52; Status DC Bupivacaine HCl/ Epinephrine Bitart (Sensorcaine-Epi 0.5% 50 ml Inj) 50 ml STK- MED ONCE .ROUTE Last administered on 05/17/16 17:57; Start 05/17/16 at 15:52; Stop 05/17/16 at 15:53; Status DC Bacitracin (Baciguent Oint) 15 applic STK-MED ONCE .ROUTE ; Start 05/17/16 at 15 :52; Stop 05/17/16 at 15:53; Status DC Lidocaine/ Epinephrine (Xylocaine-Epi 1%-1:100,000 Inj) 50 ml STK-MED ONCE .ROUTE ; Start 05/17/16 at 15:53; Stop 05/17/16 at 15:54; Status DC Epinephrine HCl (Adrenalin (1:1000) Inj) 2 mg STK-MED ONCE .ROUTE Last administered on 05/17/16 17:57; Start 05/17/16 at 16:58; Stop 05/17/16 at 16:59 ; Status DC Lidocaine/ Epinephrine (Xylocaine-Epi 1%-1:100,000 Inj) 50 ml STK-MED ONCE .ROUTE ; Start 05/17/16 at 16:58; Stop 05/17/16 at 16:59; Status DC Miscellaneous Information ALL NURSING DEPARTME... UNSCH PRN XX SEE LABEL COMMENTS; Start 05/17/16 at 19:30; Stop 05/18/16 at 19:29; Status DC Fentanyl Citrate (fentaNYL INJ) 250 mcg STK-MED ONCE .ROUTE ; Start 05/17/16 at 19:21; Stop 05/17/16 at 19:22; Status DC Morphine Sulfate (Morphine Inj) 4 mg STK-MED ONCE .ROUTE ; Start 05/17/16 at 19: 55; Stop 05/17/16 at 19:56; Status DC Insulin Detemir (Levemir Inj) 30 units Q12H SQ Last administered on 05/22/16 18:17; Start 05/18/16 at 18:00; Stop 05/23/16 at 11:55; Status DC Insulin Aspart (NovoLOG SUPPLEMENTAL SCALE) 1 ACHS SLIDING SCALE SQ Last administered on 06/29/16 16:00; Start 05/18/16 at 21:00 Acetaminophen/ Hydrocodone Bitart (Joppa 10-325 Mg) 1 tab Q4HR PRN PO PAIN 1-5 Last administered on 06/06/16 12:24; Start 05/19/16 at 20:00; Stop 06/06/16 at 17:08; Status DC Propofol (Diprivan 200 Mg/20 ml Inj) 200 mg STK-MED ONCE IV ; Start 05/17/16 at 12:00; Stop 05/20/16 at 11:33; Status DC Ondansetron HCl 4 mg 4 mg STK-MED ONCE IV PUSH ; Start 05/17/16 at 12:00; Stop 05/20/16 at 11:33; Status DC Parenteral Electrolytes (Normosol R Inj) 1,000 ml @ As Directed STK-MED ONCE IV ; Start 05/17/16 at 12:00; Stop 05/20/16 at 11:33; Status DC Lactulose 30 ml 30 ml ONCE ONCE PO ; Start 05/20/16 at 18:00; Stop 05/20/16 at 18:01; Status DC Cefepime HCl/ Sodium Chloride (Maxipime Inj/NS Inj) 100 ml @ 200 mls/hr DAILY IV Last administered on 06/07/16 08:12; Start 05/22/16 at 13:00; Stop at 12:21; Status DC Acetaminophen/ Hydrocodone Bitart (Joppa 5-325 Mg) 1 tab Q4H PRN PO Breakthrough pain/ dressings Last administered on 06/05/16 18:15; Start at 12:00; Stop 06/09/16 at 10:38; Status DC Insulin Detemir (Levemir Inj) 30 units DAILY SQ Last administered on 06/22/16 08:42; Start 05/24/16 at 09:00; Stop 06/22/16 at 11:31; Status DC Insulin Detemir (Levemir Inj) 20 units HS SQ Last administered on 06/20/16 20: 20; Start 05/23/16 at 21:00; Stop 06/22/16 at 11:31; Status DC Silver Nitrate/ Potassium Nitrate (Silver Nitrate Applicators) 1 appl ONCE ONCE TOPICAL ; Start 05/24/16 at 13:15; Stop 05/24/16 at 13:16; Status DC Non-Formulary Medication LIDOCAINE 2% WITH EPINEPHRINE 1:200,... ONCE ONCE OTHER ; Start 05/24/16 at 18:30; Stop 05/24/16 at 18:31; Status DC Sodium Bicarbonate (Sodium Bicarbonate 8.4% Inj) 50 meq ONCE ONCE IV PUSH ; Start 05/24/16 at 18:30; Stop 05/24/16 at 18:32; Status DC Acetaminophen/ Hydrocodone Bitart (Joppa 10-325 Mg) 1 tab ONCE ONCE PO Last administered on 05/25/16 12:46; Start 05/25/16 at 10:30; Stop 05/25/16 at 10:37 ; Status DC Midazolam HCl (Versed Inj) 2 mg STK-MED ONCE .ROUTE ; Start 05/26/16 at 07:31; Stop 05/26/16 at 07:32; Status DC Fentanyl Citrate (fentaNYL INJ) 250 mcg STK-MED ONCE .ROUTE ; Start 05/26/16 at 07:31; Stop 05/26/16 at 07:32; Status DC Acetaminophen (Ofirmev Inj) 1,000 mg STK-MED ONCE IV ; Start 05/26/16 at 07:44; Stop 05/26/16 at 07:49; Status DC Lidocaine/ Epinephrine (Xylocaine-Epi 1%-1:100,000 Inj) 30 ml STK-MED ONCE INFIL Last administered on 05/26/16 08:14; Start 05/26/16 at 08:14; Stop 05/26 at 08:23; Status DC Morphine Sulfate (*morphine INJ PERIprocedure ONLY) 8 mg STK-MED ONCE .ROUTE Last administered on 05/26/16 09:12; Start 05/26/16 at 09:11; Stop 05/26/16 at 09:12; Status DC Miscellaneous Information ALL NURSING DEPARTME... UNSCH PRN XX SEE LABEL COMMENTS; Start 05/26/16 at 09:30; Stop 05/27/16 at 09:29; Status DC Senna/Docusate Sodium (Luciana-Colace) 1 tab BID PO Last administered on 08:38; Start 05/26/16 at 21:00 Propofol (Diprivan 200 Mg/20 ml Inj) 200 mg STK-MED ONCE IV ; Start 05/26/16 at 12:00; Stop 05/27/16 at 10:52; Status DC Ondansetron HCl 4 mg 4 mg STK-MED ONCE IV PUSH ; Start 05/26/16 at 12:00; Stop 05/27/16 at 10:52; Status DC Lactated Ringer's (Lr 1000 ml Inj) 1,000 ml @ As Directed STK-MED ONCE IV ; Start 05/26/16 at 12:00; Stop 05/27/16 at 10:52; Status DC Ephedrine Sulfate (ePHEDrine/NS 25 MG/5 ML SYR) 25 mg STK-MED ONCE IV ; Start at 12:00; Stop 05/27/16 at 10:52; Status DC Neostigmine Methylsulfate 3 mg 3 mg STK-MED ONCE IV ; Start 05/26/16 at 12:00; Stop 05/27/16 at 10:52; Status DC Sodium Chloride 1,000 ml @ 50 mls/hr Q20H IV Last administered on 05/27/16 12 :53; Start 05/27/16 at 12:45; Stop 05/27/16 at 17:44; Status DC Iron Sucrose 50 mg/Sodium Chloride 102.5 ml @ 105 mls/hr ONCE ONCE IV ; Start 05/28/16 at 12:00; Stop 05/28/16 at 12:58; Status DC Magnesium Sulfate/ Dextrose (Magnesium Sulfate 1 Gm Premix) 100 ml @ 100 mls/ hr ONCE ONCE IV Last administered on 05/28/16 18:09; Start 05/28/16 at 18:00 ; Stop 05/28/16 at 18:59; Status DC Iron Sucrose 50 mg 50 mg ONCE ONCE IV PUSH Last administered on 05/30/16 12: 25; Start 05/30/16 at 12:00; Stop 05/30/16 at 12:01; Status DC Sodium Thiosulfate/ Sterile Water (Sodium Thiosulfate Inj/ Sterile Water For Inj ) 150 ml @ 150 mls/hr WITH DIALYSIS PRN IV calciphylaxis Last administered on 06/27/16 18:06; Start 06/01/16 at 17:30 Cinacalcet (Sensipar) 30 mg DAILY PO Last administered on 07/02/16 08:39; Start 06/02/16 at 09:00 Miscellaneous Information Patient in critical care unit? Ass... [id number] Last administered on 06/02/16 00:15; Start 06/02/16 at 00:15 Chlorhexidine Gluconate (Chlorhexidine 2% Cloth) 3 pack DAILY@04 TOP Last administered on 06/02/16 00:22; Start 06/02/16 at 04:00; Stop 06/06/16 at 04:01 ; Status DC Chlorhexidine Gluconate (Chlorhexidine 2% Cloth) 3 pack UNSCH PRN TOP HYGIENIC CARE; Start 06/02/16 at 00:15; Stop 06/07/16 at 00:02; Status DC Sevelamer Carbonate (Renvela) 1,600 mg TID PO Last administered on 07/02/16 12 :42; Start 06/03/16 at 13:00 Morphine Sulfate (Morphine Inj) 2 mg ONCE ONCE IV PUSH Last administered on 22:30; Start 06/03/16 at 22:30; Stop 06/03/16 at 22:31; Status DC Hydromorphone HCl (Dilaudid Pf Inj) 1 mg Q4H PRN IV PUSH PAIN 6-10 Last administered on 06/04/16 06:05; Start 06/03/16 at 23:45; Stop 06/04/16 at 09:27 ; Status DC Hydromorphone HCl (Dilaudid Pf Inj) 2 mg Q4H PRN IV PUSH PAIN 6-10 Last administered on 06/06/16 08:16; Start 06/04/16 at 11:45; Stop 06/06/16 at 14:55 ; Status DC Morphine Sulfate (Oramorph Sr) 15 mg Q12HR PO Last administered on 06/07/16 08 :12; Start 06/05/16 at 09:30; Stop 06/07/16 at 12:19; Status DC Povidone Iodine (Betadine 10% Top Soln) 1 applic BID TOPICAL Last administered on 06/18/16 07:55; Start 06/05/16 at 21:00; Stop 06/20/16 at 02:40; Status DC Hydromorphone HCl (Dilaudid) 8 mg Q4HR PRN PO PAIN SCALE 1 TO 10 Last administered on 06/06/16 04:12; Start 06/05/16 at 23:00; Stop 06/06/16 at 08:00 ; Status DC Lidocaine/ Epinephrine (Xylocaine-Epi 1%-1:100,000 Inj) 30 ml STK-MED ONCE .ROUTE ; Start 06/06/16 at 08:45; Stop 06/06/16 at 08:46; Status DC Hydromorphone HCl (Dilaudid Pf Inj) 2 mg Q4H PRN IV PUSH PAIN 1-6 Last administered on 06/07/16 03:38; Start 06/06/16 at 14:55; Stop 06/07/16 at 12:19 ; Status DC Acetaminophen/ Hydrocodone Bitart (Joppa 5-325 Mg) 1 tab Q4H PRN PO PAIN SCALE 3 TO 5 Last administered on 06/29/16 17:45; Start 06/06/16 at 17:15 Acetaminophen/ Hydrocodone Bitart (Joppa 10-325 Mg) 1 tab Q4H PRN PO PAIN SCALE 6 TO 10 Last administered on 06/10/16 05:14; Start 06/06/16 at 17:15; Stop 06/10/16 at 09:25; Status DC Morphine Sulfate (Oramorph Sr) 30 mg Q12HR PO Last administered on 06/09/16 09: 18; Start 06/07/16 at 21:00; Stop 06/09/16 at 10:38; Status DC Morphine Sulfate (Morphine Inj) 2 mg Q4HR PRN IV PUSH Breakthrough pain Last administered on 06/08/16 18:45; Start 06/08/16 at 15:15; Stop 06/10/16 at 15:36; Status DC Lorazepam (Ativan Inj) 1 mg NOW ONCE IV Last administered on 06/08/16 19:48; Start 06/08/16 at 19:15; Stop 06/08/16 at 19:16; Status DC Morphine Sulfate (Oramorph Sr) 45 mg Q12HR PO Last administered on 06/10/16 08: 33; Start 06/09/16 at 21:00; Stop 06/10/16 at 09:25; Status DC Morphine Sulfate (Oramorph Sr) 15 mg ONCE ONCE PO Last administered on 12:48; Start 06/09/16 at 10:45; Stop 06/09/16 at 10:47; Status DC Alprazolam (Xanax) 0.25 mg Q6H PRN PO Anxiety; Start 06/09/16 at 10:45; Stop 06/10/16 at 09:28; Status DC Polyethylene Glycol (Miralax) 17 gm DAILY PO Last administered on 07/02/16 08: 39; Start 06/09/16 at 10:45 Sodium Biphosphate/ Sodium Phosphate (Fleets Enema (Adult)) 133 ml NOW ONCE RECTAL Last administered on 06/09/16 17:55; Start 06/09/16 at 17:15; Stop at 17:16; Status DC Morphine Sulfate (Oramorph Sr) 15 mg Q12HR PO ; Start 06/10/16 at 21:00; Stop 06/10/16 at 21:00; Status DC Alprazolam (Xanax) 0.125 mg Q6H PRN PO anxiety Last administered on 07/01/16 22:12; Start 06/10/16 at 09:30 Miscellaneous (Pill Splitter) 1 ea UNSCH PRN OTHER SEE LABEL COMMENTS; Start at 10:00 Sodium Hypochlorite (Dakin'S 0.25% Soln) 500 ml DAILY TOPICAL Last administered on 07/02/16 08:40; Start 06/10/16 at 15:00 Acetaminophen/ Hydrocodone Bitart (Joppa 10-325 Mg) 1 tab Q4H PRN PO pain 6-10 Last administered on 07/02/16 11:28; Start 06/10/16 at 15:45 Methadone HCl (Dolophine) 2.5 mg Q8H PO ; Start 06/10/16 at 16:00; Stop 06/11/16 at 14:10; Status DC Hydromorphone HCl (Dilaudid Pf Inj) 1 mg Q4H PRN IV PUSH Breakthrough pain Last administered on 07/01/16 10:59; Start 06/10/16 at 15:45; Stop 07/01/16 at 21:01; Status DC Acetaminophen (Tylenol) 650 mg Q4H PRN PO pain 1-2/ fever Last administered on 06/17/16 17:15; Start 06/10/16 at 20:30 Methadone HCl (Dolophine) 2.5 mg Q12HR PO Last administered on 06/18/16 07:52 ; Start 06/13/16 at 21:00; Stop 06/18/16 at 13:45; Status DC Oxycodone HCl 2.5 mg 2.5 mg ONCE ONCE PO Last administered on 06/16/16 10:54; Start 06/16/16 at 11:00; Stop 06/16/16 at 11:01; Status DC Sodium Chloride 250 ml @ 15 mls/hr ONCE ONCE IV Last administered on 08:15; Start 06/17/16 at 08:15; Stop 06/18/16 at 00:54; Status DC Iron Sucrose/ Sodium Chloride (Venofer Inj/NS Inj) 105 ml @ 50 mls/hr ONCE ONCE IV Last administered on 06/18/16 10:12; Start 06/18/16 at 08:00; Stop 01/24 at 10:05; Status DC Methadone HCl (Dolophine) 2.5 mg Q8HR PO Last administered on 06/20/16 14:31; Start 06/18/16 at 14:00; Stop 06/20/16 at 17:37; Status DC Miscellaneous (Pill Splitter) 1 ea UNSCH PRN OTHER SEE LABEL COMMENTS; Start at 14:15; Status Cancel Silver Nitrate/ Potassium Nitrate (Silver Nitrate Applicators) 1 appl ONCE ONCE TOPICAL Last administered on 06/25/16 16:51; Start 06/19/16 at 09:45; Stop 06/19/16 at 09:58; Status DC Methadone HCl (Dolophine) 2.5 mg Q6HR PO Last administered on 06/26/16 12:21; Start 06/20/16 at 18:00; Stop 06/26/16 at 16:52; Status DC Insulin Detemir (Levemir Inj) 15 units HS SQ Last administered on 07/01/16 22: 13; Start 06/22/16 at 21:00 Insulin Detemir 25 units 25 units DAILY SQ Last administered on 07/02/16 08:39 ; Start 06/23/16 at 09:00 Sodium Chloride (NS 250 ml Inj) 250 ml @ 15 mls/hr ONCE ONCE IV Last administered on 06/27/16 05:45; Start 06/23/16 at 18:15; Stop 06/24/16 at 10:54 ; Status DC Povidone Iodine (Betadine 10% Top Soln) 1 applic DAILY TOP Last administered on 07/02/16 08:39; Start 06/25/16 at 09:00 Acetaminophen/ Hydrocodone Bitart (Joppa 5-325 Mg) 1 tab ONCE ONCE PO Last administered on 06/25/16 18:46; Start 06/25/16 at 18:00; Stop 06/25/16 at 18:11 ; Status DC Methadone HCl (Dolophine) 5 mg Q8HR PO Last administered on 07/02/16 12:42; Start 06/26/16 at 22:00 Fluoxetine HCl 30 mg 30 mg DAILY PO Last administered on 07/02/16 08:38; Start 06/27/16 at 09:00 Sodium Chloride (NS 250 ml Inj) 250 ml @ 15 mls/hr ONCE ONCE IV Last administered on 06/26/16 20:30; Start 06/26/16 at 20:30; Stop 06/27/16 at 13:09 ; Status DC Diphenhydramine HCl (Benadryl) 25 mg Q4H PRN PO SEE LABEL COMMENTS; Start 06/26 at 20:30; Stop 06/27/16 at 00:31; Status DC Furosemide 20 mg 20 mg ONCE ONCE IV ; Start 06/26/16 at 20:30; Stop 06/26/16 at 20:35; Status DC Lactated Ringer's 1,000 ml @ 30 mls/hr Q24H PRN IV SEE LABEL COMMENTS; Start at 08:45; Stop 07/01/16 at 08:44; Status DC Sodium Chloride (NS 500 ml Inj) 500 ml @ 30 mls/hr [id number] PRN IV SEE LABEL COMMENTS; Start 06/28/16 at 08:45; Stop 07/01/16 at 08:44; Status DC Metoprolol Tartrate (Lopressor) 25 mg DRAFTING ENGINEER PRN PO SEE LABEL COMMENTS; Start 06/28/16 at 08:45; Stop 07/01/16 at 08:44; Status DC Povidone Iodine (Betadine 5% Antisepsis Kit) 1 applic DRAFTING ENGINEER PRN EACH NARE SEE LABEL COMMENTS; Start 06/28/16 at 08:45; Stop 07/01/16 at 08:44; Status DC Chlorhexidine Gluconate (Chlorhexidine 2% Cloth) 3 pack [employer]RAFT[employer] PRN TOPICAL SEE LABEL COMMENTS; Start 06/28/16 at 08:45; Stop 07/01/16 at 08:44; Status DC Insulin Human Regular (NovoLIN R INJ) See Protocol Table ... 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 SEE PROTOCOL TABLE; Start 06/28/16 at 08:45; Stop 07/01/16 at 08:44; Status DC Epinephrine HCl (Adrenalin (1:1000) Inj) 1 mg STK-MED ONCE .ROUTE Last administered on 06/28/16 14:12; Start 06/28/16 at 12:42; Stop 06/28/16 at 12:43 ; Status DC Lidocaine HCl (Xylocaine 1% Inj (50 ml)) 50 ml STK-MED ONCE .ROUTE Last administered on 06/28/16 14:12; Start 06/28/16 at 12:42; Stop 06/28/16 at 12:43 ; Status DC Midazolam HCl (Versed Inj) 2 mg STK-MED ONCE .ROUTE Last administered on 13:14; Start 06/28/16 at 13:14; Stop 06/28/16 at 13:15; Status DC Midazolam HCl (Versed Inj) 2 mg STK-MED ONCE .ROUTE ; Start 06/28/16 at 13:28; Stop 06/28/16 at 13:29; Status DC Fentanyl Citrate (fentaNYL INJ) 250 mcg STK-MED ONCE .ROUTE ; Start 06/28/16 at 13:28; Stop 06/28/16 at 13:29; Status DC Acetaminophen (Ofirmev Inj) 1,000 mg STK-MED ONCE IV ; Start 06/28/16 at 13:29; Stop 06/28/16 at 13:30; Status DC Midazolam HCl (Versed Inj) 2 mg STK-MED ONCE IV PUSH Last administered on 13:14; Start 06/28/16 at 13:14; Stop 06/28/16 at 14:01; Status DC Vancomycin HCl 1000 mg 1,000 mg STK-MED ONCE .ROUTE Last administered on 14:53; Start 06/28/16 at 14:31; Stop 06/28/16 at 14:32; Status DC Levofloxacin/ Dextrose 100 ml @ As Directed STK-MED ONCE IV ; Start 06/28/16 at 14:32; Stop 06/28/16 at 14:33; Status DC Levofloxacin/ Dextrose (Levaquin 250 Mg Premix Inj) 50 ml @ As Directed STK-MED ONCE IV ; Start 06/28/16 at 14:33; Stop 06/28/16 at 14:34; Status DC Epinephrine HCl (Adrenalin (1:1000) Inj) 1 mg STK-MED ONCE .ROUTE Last administered on 06/28/16 14:56; Start 06/28/16 at 14:44; Stop 06/28/16 at 14:45 ; Status DC Lidocaine HCl (Xylocaine 1% Inj (50 ml)) 50 ml STK-MED ONCE .ROUTE Last administered on 06/28/16 14:56; Start 06/28/16 at 14:44; Stop 06/28/16 at 14:45 ; Status DC Midazolam HCl (Versed Inj) 2 mg STK-MED ONCE .ROUTE ; Start 06/28/16 at 15:14; Stop 06/28/16 at 15:15; Status DC Miscellaneous Information ALL NURSING DEPARTME... UNSCH PRN .XX SEE LABEL COMMENTS; Start 06/28/16 at 16:10; Stop 06/29/16 at 16:09; Status DC Hydromorphone HCl 1 mg 1 mg STK-MED ONCE .ROUTE Last administered on 06/28/16 17:26; Start 06/28/16 at 17:26; Stop 06/28/16 at 17:27; Status DC Vancomycin HCl 1000 mg/Sodium Chloride 250 ml @ 250 mls/hr ONCE ONCE IV ; Start 06/29/16 at 17:30; Stop 06/29/16 at 18:29; Status UNV Pharmacy Profile Note 0 ml @ 0 mls/hr UNSCH OTHER ; Start 06/29/16 at 17:30; Status UNV Piperacillin Sod/ Tazobactam Sod (Zosyn 2.25 Gm Premix) 50 ml @ 100 mls/hr Q8H IV Last administered on 06/30/16 10:05; Start 06/29/16 at 18:00; Stop at 14:56; Status DC Hydromorphone HCl (Dilaudid Pf Inj) 1 mg Q4H PRN IV PUSH BREAKTHROUGH PAIN Last administered on 07/02/16 08:50; Start 07/01/16 at 22:00 A/P Problem List: (1) Open wound of abdomen ICD Code: S31.109A Status: Acute (2) Type II diabetes mellitus with neurological manifestations, uncontrolled ICD Code: E11.49 Status: Chronic (3) End stage renal disease on dialysis ICD Code: N18.6 Status: Chronic (4) Hypertension, benign ICD Code: I10 Status: Chronic (5) Constipation ICD Code: K59.00 Status: Acute Assessment and Plan Abdominal pannus wound cellulitis and ulcer, consulted General Surgery, started on - Status post incision and drainage on 05/26/16-->no improvement in wound to date. - Biopsy negative for calciphylaxis -showed venous stasis dermatitis. -greatly appreciate dr. Meyers's input, panniculectomy performed 06/28 -pain control with lortab 5 mg q 4 hr as needed -per Plastics will allow patient OOB as soon as she can and change dressing with betadine soaked 4x4 directly on the skin daily. -watch for any further necrotic spots showing up. Keep sutures / nba for approx 2 weeks unless they get inflamed. Drains probably 2-3 weeks as well. -management also per wound care nurse. Leukocytosis -most likely reactive due to surgery. clinically doing well and no fevers. doing well off of antibiotics. Morbid Obesity strongly -recommended diet and exercise, weight loss warranted. Hypertension -controlled. T2 DM II -continue sliding scale better control, Hemoglobin A1C 6.8. Hyperlipidemia - continue home medicines ESRD -on Hemodialysis and Friday, at this time going for HD chronic low back pain and chronic pain syndrome on methadone and norco PRN. Anemia of chronic disease worsened with acute blood loss anemia -S/p transfusion on 06/24/16 as well as erythropoietin by nephrology. - Another PRBC transfusion 06/21. Closely monitor. Transfuse if indicated. Received 2 units PRBCs yesterday, blood count improved to 8.5. - Given additional 1 unit PRBCs intraoperatively. Check stat H&H postoperatively, hemoglobin currently 9.8. Stable. Physical Deconditioned -Patient has been refusing physical therapy in the past. I dealt with patient extensively and in regards to ambulating. She said that she will work with physical therapist. I also dealt with physical therapist regards to this. DVT prophylaxis with Heparin every 12 hours. Problem Qualifiers (1) Open wound of abdomen: Qualified Code: S31.109A - Open wound of abdomen, initial encounter Suzi Denton MD Jul 02, 2016 13:03
[2016-07-02] MEDS ORDERED: NOVOLOGSS SQ (16:27)
[2016-07-02] MEDS ORDERED: FLUO-1 PO (16:27)
[2016-07-02] MEDS ORDERED: DOLO10TA PO (16:27)
[2016-07-02] MEDS ORDERED: HYDR-3516 PO (16:27)
[2016-07-02] MEDS ORDERED: ALPR.25 PO (16:27)
[2016-07-02] MEDS ORDERED: LEVEMIR SQ ×2 (16:27)
[2016-07-02] MEDS ORDERED: SEVEL800 PO (16:27)
[2016-07-02] MEDS ORDERED: CINA30 PO (16:27)
[2016-07-02] MEDS ORDERED: SENN1TAB PO (16:27)
[2016-07-02] MEDS ORDERED: [UNRECOGNIZED DRUG - CODE] TOP (16:35)
[2016-07-02] MEDS ORDERED: COLL30T EXT (16:35)
[2016-07-02] MEDS ORDERED: DOXY100C PO (16:38)
[2016-07-02] MEDS: DOXYCYCLINE HYCLATE 100 MG CAP PO SCH (20:41)
[2016-07-02] MEDS: ATORVASTATIN 80 MG TAB PO SCH (20:41)
[2016-07-03] VITALS: BP 107/53; PULSE 88; RESP 18; TEMP 98.6; O2SAT 95
[2016-07-03] MEDS: ACETAMINOPHEN/HYDROcodone 325 MG/10 MG TAB PO PRN ×3 (01:07→12:51)
[2016-07-03 04:00] VITALS: BP 103/56; PULSE 86; RESP 18; TEMP 98.2; O2SAT 93
[2016-07-03] MEDS: LEVOTHYROXINE SODIUM 150 MCG TAB PO SCH (05:37)
[2016-07-03] MEDS: METHADONE HCL 10 MG TAB PO SCH (05:37)
[2016-07-03] MEDS: HIGH DOSE INSULIN NOVOLOG SUPPLEMENTAL SCALE SQ SCH ×2 (06:20→11:00)
[2016-07-03 07:39] LABS: AUTOMATED NEUTROPHIL # 16.3 TH/MM3 (1.8-7.7); BASOPHIL # 0.1 TH/MM3 (0-0.2); BASOPHIL % 0.5 % (0.0-2.0); EOSINOPHIL # 0.2 TH/MM3 (0-0.4); HEMATOCRIT 23.5 % (35.0-46.0); HEMO FLAGS DIFF FINAL; LYMPH % 5.5 % (9.0-44.0); MEAN CELL VOLUME 84.3 FL (80.0-100.0); MEAN CORPUSCULAR HEMOGLOBIN 26.6 PG (27.0-34.0); MEAN CORPUSCULAR HGB CONC 31.5 % (32.0-36.0); MONO % 4.8 % (0.0-8.0); NEUT % 88.2 % (16.0-70.0); PLATELET COUNT 389 TH/MM3 (150-450); RED BLOOD COUNT 2.78 MIL/MM3 (4.00-5.30); RED CELL DISTRIBUTION WIDTH 15.8 % (11.6-17.2); WHITE BLOOD COUNT 18.4 TH/MM3 (4.0-11.0)
[2016-07-03 08:04] VITALS: BP 109/58; PULSE 77; RESP 20; TEMP 98.5; O2SAT 95
[2016-07-03 08:22] VITALS: PULSE 81
[2016-07-03] MEDS: DOCUSATE SODIUM 50 MG/SENNA 8.6 MG TAB PO SCH (08:50)
[2016-07-03] MEDS: FLUoxetine HCL 10 MG CAP PO SCH (08:50)
[2016-07-03] MEDS: POLYETHYLENE GLYCOL 17 GM PKG PO SCH (08:50)
[2016-07-03] MEDS: CALCITRIOL 0.25 MCG CAP PO SCH (08:50)
[2016-07-03] MEDS: ASPIRIN EC 81 MG TABEC PO SCH (08:51)
[2016-07-03] MEDS: GABAPENTIN 100 MG CAP PO SCH (08:51)
[2016-07-03] MEDS: CINACALCET HYDROCHLORIDE 30 MG TAB PO SCH (08:51)
[2016-07-03] MEDS: INSULIN DETEMIR 100 UNITS/ML VIAL SQ SCH (08:51)
[2016-07-03] MEDS: DOXYCYCLINE HYCLATE 100 MG CAP PO SCH (08:51)
[2016-07-03] MEDS: SEVELAMER CARBONATE 800 MG TAB PO SCH (08:51)
[2016-07-03] MEDS: SODIUM HYPOCHLORITE 0.25% 500 ML BTL TOPICAL SCH (08:52)
[2016-07-03] MEDS: POVIDONE IODINE 10% SOLN 118 ML BOTTLE TOP SCH (08:52)
[2016-07-03] MEDS: SODIUM CHLORIDE 0.9% FLUSH 5 ML FLUSH FLUSH SCH (08:52)
[2016-07-03] MEDS: COLLAGENASE OINT 30 GM TUBE EXT SCH (08:52)
[2016-07-03 12:05] VITALS: BP 110/60; PULSE 78; RESP 20; TEMP 98.6; O2SAT 96
[2016-07-03 12:52] LABS: BICARBONATE 28.4 MEQ/L (21.0-32.0); POTASSIUM 4.8 MEQ/L (3.5-5.1)
--- NOTE | 2016-07-03 13:16 | HHI.DS ---
Discharge Summary Admission Date May 14, 2016 at 14:13 Discharge Date: Jul 02, 2016 Admitting Diagnosis Severe Sepsis, Abdominal Wound, Severe Anemia, ESRD on HD (1) Open wound of abdomen ICD Code: S31.109A Diagnosis: Principal (2) Type II diabetes mellitus with neurological manifestations, uncontrolled ICD Code: E11.49 (3) End stage renal disease on dialysis ICD Code: N18.6 (4) Hypertension, benign ICD Code: I10 (5) Constipation ICD Code: K59.00 (6) End stage kidney disease ICD Code: N18.6 (7) Anemia in chronic kidney disease (CKD) ICD Code: N18.9 (8) Pressure ulcer of coccygeal region ICD Code: L89.159 (9) Chronic back pain ICD Code: M54.9 (10) Non-compliance ICD Code: Z91.19 (11) Chronic cutaneous venous stasis ulcer ICD Code: I83.009 Procedures I&D Debridement Skin biopsy on 06/06 Brief History - From Admission This is a pleasant 55 y/o Female who came to Emergency room as we know she has Hypertension DM II, Hyperlipidemia, Chronic back pain, ESRD on Friday, and Friday , presents to the emergency department for evaluation of worsening abdominal wound. The wound worsened for the last six weeks, she has Wound care by Doctor Maryanne who performed I and D, on multiple opportunities, has wound care twice a day with packing in place, is been feeling weaker, increased drainage and Pain from the wound, as per Doctor Madden recommended Surgical management for Surgical debridement, She denies any fever, chills, nausea, vomiting, chest pain , shortness of breath. States that her early childhood lead teacher is Dr. Jimenez. She has not had dialysis since , 5 days ago, because she states she was feeling so weak at the time. PCP is Dr. Velarde. seen in Emergency room in the presence of her Son and Mr. Zamudio, status post evaluation by General account installation specialist Doctor Silverio Matias, he is looking for another surgeon with expertise in this kind of Pathology. CBC/BMP: 07/03/16 0700 07/03/16 1146 Significant Findings Laboratory Tests Test 07/03/16 07/03/16 07:00 11:46 White Blood Count 18.4 TH/MM3 (4.0-11.0) Red Blood Count 2.78 MIL/MM3 (4.00-5.30) Hemoglobin 7.4 GM/DL (11.6-15.3) Hematocrit 23.5 % (35.0-46.0) Mean Corpuscular Hemoglobin 26.6 PG (27.0-34.0) Mean Corpuscular Hemoglobin 31.5 % Concent (32.0-36.0) Mean Platelet Volume 6.7 FL (7.0-11.0) Neutrophils (%) (Auto) 88.2 % (16.0-70.0) Lymphocytes (%) (Auto) 5.5 % (9.0-44.0) Neutrophils # (Auto) 16.3 TH/MM3 (1.8-7.7) Sodium Level 131 MEQ/L (136-145) Chloride Level 92 MEQ/L (98-107) Blood Urea Nitrogen 77 MG/DL (7-18) Creatinine 7.96 MG/DL (0.50-1.00) Estimat Glomerular Filtration 5 ML/MIN (>89) Rate Random Glucose 120 MG/DL (74-106) Calcium Level 7.8 MG/DL (8.5-10.1) Imaging Last Impressions Chest X-Ray 06/08/16 0000 Signed Impressions: Service Date/Time: Wednesday, June 08, 2016 19:03 - CONCLUSION: The lungs are clear. No evidence of pneumothorax. Len Benz MD PE at Discharge GENERAL: Pleasant, morbidly obese middle-age female patient. CARDIOVASCULAR: Regular rate and rhythm without murmurs, gallops, or rubs. RESPIRATORY: Breath sounds equal bilaterally. No accessory muscle use. GASTROINTESTINAL: wound with sutures in place. MELIA showed serosangious fluid. Hospital Course This is a 55-year-old female who presented with nonhealing abdominal wound Large necrotic wound located in the abdominal pannus area with cellulitis -Initially general surgeon was consulted but deferred this to plastic surgeon due to the severity of the wound. -So plastic surgeon was consulted in which Dr. Johnson did an excision large open wound 25 x 15 cm right side lower abdominal pannus on 3/15. -Patient continued to have necrotic tissue so another Excisional debridement of New necrotic area Right side of the abdomen 10x5 cm was done on 05/24. -Patient had another excisional debridement of right lower abdomen, 25 x 15 cm deep wound and right lateral abdomen, 10 x 5 cm superficial wound on 05/27. -On 06/28 patient had Wide excision of necrotic lower abdominal pannus with panniculectomy and partial closure. -per Plastics will allow patient OOB as soon as she can and change dressing with betadine soaked 4x4 directly on the skin daily. -watch for any further necrotic spots showing up. Keep sutures / nba for approx 2 weeks unless they get inflamed. Drains probably 2-3 weeks as well. -Dealt with Dr. Johnson over the phone in regards to discharge to SNF and he agreed to the discharge. -Dr. Meyers requested prophylaxis antibiotics ? so patient put on doxycycline. -During the treatment of patient's wound she was put on antibiotics. ID consulted and was managing. Treated empirically with vancomycin and Zosyn. Later she was switched to cefepime. Patient completed her antibiotic course during hospitalization and cellulitis resolved during sedation. Leukocytosis -Developed after the surgery. -Most likely reactive since patient was doing well clinically. She had no fevers. -She did well without antibiotics and it improved without antibiotics. Morbid Obesity strongly -recommended diet and exercise, weight loss warranted. Hypertension --Home medication was resumed. . T2 DM II -Hemoglobin A1C 6.8. -Patient was put on insulin sliding scale. She was also put on Levemir. Hyperlipidemia - continue home medicines ESRD -on Hemodialysis and Friday, at this time going for HD -There are times during hospitalization patient refused hemodialysis. -Fresh Work Inspector was following patient to the hospital course. chronic low back pain and chronic pain syndrome -Patient was put on methadone during her hospitalization. Narco was continued. Pain was controlled. Anemia of chronic disease secondary to chronic kidney disease -During the hospital course cloth measurer was consulted in which she was given a treatment regimen in which she stated she did not want to make a decision about her. Off Track Betting Manager signed off. -GI was consulted and recommended a colonoscopy endoscopy patient declined and stated that she will reconsider once her wounds have healed. -During the hospital course she showed no active signs of GI bleed. -Fresh Work Inspector was managing her anemia. -Patient was transfusion on 05/24/16 packed red blood cells as well as erythropoietin by nephrology which was after surgery. -1 units of PRBC transfusion 06/21. --On Epogen and refuses iron supplements. Physical Deconditioned -The hospital course patient had multiple reasons not to participate in physical therapy. Patient was educated extensively on consultations caused by decreased ambulation including her coccygeal stress ulcer. Coccygeal stress ulcer -Recommend santyl. -Patient noncompliant and does not participate in physical therapy. Pt Condition on Discharge: Stable Discharge Disposition: Discharge to SNF Discharge Time: > 30 minutes Discharge Instructions DIET: Follow Instructions for: Heart Healthy Diet, Diabetic Diet, Renal Failure Diet Additional Diet Instructions: heart heathy diet Activities you can perform: Regular-No Restrictions Follow up Referrals: Nephrology - 1 Week Plastic Surgery - [address] Meyers [facility]/ with Doctors [facility]/ - Next Day New Medications: Alprazolam (Xanax) 0.25 Mg Tab 0.125 MG PO Q6H PRN anxiety #10 Ref 0 TAB Cinacalcet (Sensipar) 30 Mg Tab 30 MG PO DAILY CKD #30 Ref 0 TAB Collagenase (Santyl) 250 Unit/Gm Oin 1 APPLIC EXT DAILY apply to coccygeal pressure ulcer pressure ulcer #1 Ref 0 TUBE Doxycycline Hyclate (Doxycycline Hyclate) 100 Mg Cap 100 MG PO BID prophylaxis antbiotics. Days 10 Ref 0 CAP Fluoxetine (Prozac) 10 Mg Cap 30 MG PO DAILY depression #30 Ref 0 CAP Hydrocodone-Acetaminophen (Hydrocodone-Acetaminophen) 5-325 mg Tab 1 TAB PO Q4H PRN pain #20 Ref 0 TAB Insulin Aspart Inj (Novolog Inj) 100 Unit/Ml Inj 1 UNIT SQ ACHS SLIDING SCALE diabetes Days 30 Ref 0 INJECTION Insulin Detemir Inj (Levemir Inj) 1,000 unit/ 10 ML Vial 15 UNITS SQ HS diabetes Days 30 Ref 0 INJECTION Insulin Detemir Inj (Levemir Inj) 1,000 unit/ 10 ML Vial 25 UNITS SQ DAILY diabetes Days 30 Ref 0 INJECTION Methadone (Dolophine) 10 Mg Tab 5 MG PO Q8HR chronic pain #20 Ref 0 TAB Povidone-Iodine Topical (Operand Povidone-Iodine Topical) 10% Soln 1 APPLIC TOP DAILY wound Days 14 Ref 0 ML Sennosides-Docusate Sodium (Senna Plus 8.6-50 mg) 1 Tab Tab 1 TAB PO BID constipation #30 Ref 0 TAB Sevelamer Carbonate (Renvela) 800 Mg Tab 1600 MG PO TID CKD #90 Ref 0 TAB Continued Medications: Aspirin DR (Aspirin 81) 81 Mg Tabdr 81 MG PO DAILY Ref 0 TAB Atorvastatin (Atorvastatin) 80 Mg Tab 80 MG PO HS Cholesterol Management #30 Ref 0 TAB Calcitriol (Calcitriol) 0.5 Mcg Cap 0.5 MCG PO DAILY Calcium Supplement #30 Ref 0 CAP Gabapentin (Gabapentin) 100 Mg Cap 100 MG PO BID #60 Ref 0 CAP Levothyroxine (Levothyroxine) 300 Mcg Tab 300 MCG PO DAILY Thyroid #30 Ref 0 TAB Meclizine (Meclizine) 25 Mg Tab 25 MG PO TID PRN VERTIGO Ref 0 TAB Discontinued Medications: Amlodipine (Amlodipine) 5 Mg Tab 5 MG PO BID Blood Pressure Management #30 Ref 0 TAB Atenolol (Atenolol) 50 Mg Tab 50 MG PO BID Blood Pressure Management Ref 0 TAB Benazepril (Benazepril) 20 Mg Tab 20 MG PO BID Blood Pressure Management #60 Ref 0 TAB Fluoxetine (Fluoxetine) 20 Mg Tab 20 MG PO DAILY #30 Ref 0 TAB Hydrocodone-Acetaminophen (Lortab) 10-325 Mg Tab 1 TAB PO Q6H PRN PAIN Ref 0 TAB Insulin Aspart Inj (Novolog Inj) 1,000 Unit/10 Ml Vial 30 UNITS SQ TID Sliding Scale as directed. Blood Sugar Management #10 Ref 0 ML Sevelamer Carbonate (Renvela) 800 Mg Tab 800 MG PO TID Control phosphorous levels #90 Ref 0 TAB Sodium Hypochlorite Topical (Dakins Solution Full Strength Topical) 0.4-0.5 % Soln 473 ML TOPICAL BID Infection Days 30 Ref 6 ML Tizanidine (Tizanidine) 4 Mg Tab 4 MG PO TID PRN MUSCLE SPASM Ref 0 TAB Suzi Denton MD Jul 03, 2016 13:16
== END 2016-07-03 13:22 | DRG 853 ==
LOC: NEPC 12:04 → NEDA 14:13 → NEDH 19:38 → N03B 21:25 → N04B 05-15 10:12 → HIMW 06-01 23:20 → N07A 06-03 23:55 → N04A 06-14 15:05 → N03B 06-28 16:50 → N03A 06-28 21:01 → N04B 06-29 21:30
PROVIDERS: ADMIT Family Medicine; ATTEND Family Medicine
PROC: 30233N1 Transfusion of Nonautologous Red Blood Cells into Peripheral Vein, Percutaneous Approach (ICD-10-PCS; principal; 2016-05-14)
PROC: 5A1D60Z (ICD-10-PCS; 2016-05-15)
PROC: 0JB80ZZ Excision of Abdomen Subcutaneous Tissue and Fascia, Open Approach (ICD-10-PCS; 2016-05-17)
PROC: 0JB80ZZ Excision of Abdomen Subcutaneous Tissue and Fascia, Open Approach (ICD-10-PCS; 2016-05-24)
PROC: 0JB80ZZ Excision of Abdomen Subcutaneous Tissue and Fascia, Open Approach (ICD-10-PCS; 2016-05-26)
PROC: 0JB80ZZ Excision of Abdomen Subcutaneous Tissue and Fascia, Open Approach (ICD-10-PCS; 2016-05-26)
PROC: 0HB7XZX Excision of Abdomen Skin, External Approach, Diagnostic (ICD-10-PCS; 2016-06-06)
PROC: 0WBF0ZZ Excision of Abdominal Wall, Open Approach (ICD-10-PCS; 2016-06-28)
DX: A41.9 Sepsis, unspecified organism (principal); N18.6 End stage renal disease; E43 Unspecified severe protein-calorie malnutrition; G93.41 Metabolic encephalopathy; I12.0 Hypertensive chronic kidney disease with stage 5 chronic kidney disease or end stage renal disease; L89.159 Pressure ulcer of sacral region, unspecified stage; I95.9 Hypotension, unspecified; D62 Acute posthemorrhagic anemia; E11.22 Type 2 diabetes mellitus with diabetic chronic kidney disease; L03.115 Cellulitis of right lower limb; Z68.44 Body mass index [BMI] 60.0-69.9, adult; L03.311 Cellulitis of abdominal wall; L97.909 Non-pressure chronic ulcer of unspecified part of unspecified lower leg with unspecified severity; E11.65 Type 2 diabetes mellitus with hyperglycemia; I50.9 Heart failure, unspecified; D63.1 Anemia in chronic kidney disease; S31.819A Unspecified open wound of right buttock, initial encounter; S31.109A Unspecified open wound of abdominal wall, unspecified quadrant without penetration into peritoneal cavity, initial encounter; Z99.2 Dependence on renal dialysis; Z79.4 Long term (current) use of insulin; E78.5 Hyperlipidemia, unspecified; G89.4 Chronic pain syndrome; M54.5 Low back pain; M19.90 Unspecified osteoarthritis, unspecified site; E78.00 Pure hypercholesterolemia, unspecified; E03.9 Hypothyroidism, unspecified; Z98.84 Bariatric surgery status; E87.5 Hyperkalemia; E65 Localized adiposity; I25.10 Atherosclerotic heart disease of native coronary artery without angina pectoris; Z95.5 Presence of coronary angioplasty implant and graft; G47.33 Obstructive sleep apnea (adult) (pediatric); M48.00 Spinal stenosis, site unspecified; Z88.1 Allergy status to other antibiotic agents; Z88.8 Allergy status to other drugs, medicaments and biological substances; E66.01 Morbid (severe) obesity due to excess calories; I87.2 Venous insufficiency (chronic) (peripheral); I89.0 Lymphedema, not elsewhere classified; B96.5 Pseudomonas (aeruginosa) (mallei) (pseudomallei) as the cause of diseases classified elsewhere; B95.2 Enterococcus as the cause of diseases classified elsewhere; I83.009 Varicose veins of unspecified lower extremity with ulcer of unspecified site; R65.20 Severe sepsis without septic shock; Z87.891 Personal history of nicotine dependence; Z74.01 Bed confinement status; Z91.19 Patient's noncompliance with other medical treatment and regimen; S71.001A Unspecified open wound, right hip, initial encounter; X58.XXXA Exposure to other specified factors, initial encounter; Y93.9 Activity, unspecified; Y92.9 Unspecified place or not applicable; Y99.9 Unspecified external cause status; R00.1 Bradycardia, unspecified; I44.0 Atrioventricular block, first degree; I45.10 Unspecified right bundle-branch block; R06.02 Shortness of breath; E11.49 Type 2 diabetes mellitus with other diabetic neurological complication; E55.9 Vitamin D deficiency, unspecified; F10.10 Alcohol abuse, uncomplicated; D50.9 Iron deficiency anemia, unspecified; F32.9 Major depressive disorder, single episode, unspecified; F41.0 Panic disorder [episodic paroxysmal anxiety]; G89.18 Other acute postprocedural pain; Z51.5 Encounter for palliative care; K59.00 Constipation, unspecified; R00.0 Tachycardia, unspecified; Z91.15 Patient's noncompliance with renal dialysis
CPT/HCPCS: 36430; 36600; 71010; 76937; 80048; 80053; 80076; 82040; 82306; 82805; 82948; 83036; 83605; 83735; 83970; 84100; 84134; 84155; 84484; 85007; 85014; 85018; 85025; 85027; 85610; 85730; 86850; 86900; 86901; 86920; 86922; 87015; 87040; 87070; 87077; 87102; 87116; 87186; 87205; 87206; 87641; 88305; 90935; 93005; 94150; 95819; 96374; 96375; J0131; J0171; J0692; J1170; J1580; J1644; J1756; J1815; J1956; J2060; J2250; J2270; J2310; J2370; J2405; J2543; J2710; J2765; J3010; J3370; J3475; J7030; J7040; J7050; J7120; P9016; P9047; Q4081

== ENCOUNTER 2016-07-09 11:12 | Inpatient (IN) | payer MEDICARE, MEDICAID ==
[~2016-07-09] VITALS: Ht 157.5 cm; Wt 138.4 kg
[2016-07-09] MEDS: POVIDONE IODINE 10% SOLN 118 ML BOTTLE TOPICAL SCH
[~2016-07-09 11:12] MED LIST changes: +ALPR.25 PO; -AMLO5TAB2 PO; -ATEN50TA PO; -BENA20TA PO; +CINA30 PO; +COLL30T EXT; -DAKINSFST TOPICAL; +DOLO10TA PO; +DOXY100C PO; +FLUO-1 PO; -FLUO1TAB3 PO; +HYDR-3516 PO; -HYDR-3535 PO; +LEVEMIR SQ; -NOVOLOGP2 SQ; +NOVOLOGSS SQ; +SENN1TAB PO; -TIZA4TAB PO; +[UNRECOGNIZED DRUG - CODE] TOP; -[UNRECOGNIZED DRUG - OTHER] TOP
[2016-07-09 11:19] VITALS: RESP 22; TEMP 98.6; O2SAT 96
[2016-07-09 11:36] VITALS: BP 124/58; PULSE 93; RESP 20
[2016-07-09] MEDS ORDERED: ACETAMINOPHEN/HYDROcodone 325 MG/5 MG TAB PO ONE (11:45)
[2016-07-09] MEDS ORDERED: SODIUM CHLORIDE 0.9% FLUSH 10 ML FLUSH IV FLUSH PRN ×2 (11:45→15:30)
--- NOTE | 2016-07-09 11:46 | PD ---
HPI Chief Complaint: Pain: Acute or Chronic Time Seen by Provider: 11:30 Travel History International Travel<30 days: No Contact w/Intl Traveler<30days: No Traveled to known affect area: No History of Present Illness HPI Patient comes emergency Department from [facility] complaining of pain around her recent surgical wounds of her abdomen and chronic wound of her buttocks. Patient states that she was recently released from the hospital after having her abdominal wound surgically debrided and drains placed. Patient states that the CHELSEA is giving her 5 mg of Lortab when she normally takes 10 mg, which is not controlling her pain and this is why she came back to the emergency department. Patient denies any fevers, nausea or shortness of breath. Patient is on dialysis Friday, , and Saturdays and is scheduled to go this afternoon. Patient has a history of end-stage renal disease, diabetes mellitus , chronic back pain, hypertension, hypothyroidism, CHF, hyperlipidemia, coronary artery disease, and osteoarthritis. PFSH Past Medical History Arthritis: Yes Asthma: No Autoimmune Disease: No Blood Disorders: No Anxiety: Yes Heart Rhythm Problems: No Cancer: No Cardiac Catheterization: Yes Cardiovascular Problems: Yes High Cholesterol: Yes Chemotherapy: No Chest Pain: Yes Congestive Heart Failure: Yes COPD: No Diabetes: Yes Patient Takes Glucophage: No Dialysis: Yes (,,) Diminished Hearing: No Endocrine: Yes Genitourinary: Yes Hepatitis: No Hiatal Hernia: No Heparin Induced Thrombocytopen: No Hypertension: Yes Immune Disorder: No Implanted Vascular Access Dvce: Yes Medical other: Yes (LEFT LOWER ARM FISTULA) Musculoskeletal: Yes Neurologic: No Psychiatric: Yes Reproductive: No Respiratory: Yes Radiation Therapy: No Renal Failure: Yes Sickle Cell Disease: No Sleep Apnea: Yes Thyroid Disease: Yes Triglycerides - High: Yes Menopausal: Yes : 1 Para: 1 Past Surgical History Abdominal Surgery: No AICD: No Arteriovenous Shunt: Yes Body Medical Devices: LAB BAND; CARDIAC STENT X 1, DIALYSIS CATHETER RIGHT Cardiac Surgery: No Section: Yes (X 1) Cholecystectomy: Yes (1996) Coronary Stent: Yes (x1 June 2012) Ear Surgery: No Endocrine Surgery: No Eye Surgery: No Genitourinary Surgery: No Gynecologic Surgery: Yes (C SECTION 1992; D&C) Joint Replacement: No Neurologic Surgery: No Oral Surgery: Yes (T&A) Pacemaker: No Thoracic Surgery: No Tonsillectomy: Yes Other Surgery: Yes (LAP BAND, VAS CATH) Family History Family Myocardial Infarction: No Social History Alcohol Use: No Tobacco Use: No Substance Use: No Allergies-Medications (Allergen,Severity, Reaction): Coded Allergies: Biaxin (Verified Allergy, Severe, swelling of face, 05/10/16) Iron (Verified Adverse Reaction, Severe, Constipation, 05/10/16) Morphine (Verified Adverse Reaction, Severe, 06/11/16) renal insufficiency. Reported Meds & Prescriptions Reported Meds & Active Scripts Active Doxycycline Hyclate 100 Mg Cap 100 Mg PO BID 10 Days Operand Povidone-Iodine Topical (Povidone-Iodine Topical) 10% Soln 1 Applic TOP DAILY 14 Days Santyl (Collagenase) 250 Unit/Gm Oin 1 Applic EXT DAILY apply to coccygeal pressure ulcer Renvela (Sevelamer Carbonate) 800 Mg Tab 1,600 Mg PO TID Senna Plus 8.6-50 mg (Sennosides-Docusate Sodium) 1 Tab Tab 1 Tab PO BID Dolophine (Methadone HCl) 10 Mg Tab 5 Mg PO Q8HR Levemir Inj (Insulin Detemir) 1,000 unit/ 10 ML Vial 25 Units SQ DAILY 30 Days Levemir Inj (Insulin Detemir) 1,000 unit/ 10 ML Vial 15 Units SQ HS 30 Days Novolog Inj (Insulin Aspart) 100 Unit/Ml Inj 1 Unit SQ ACHS SLIDING SCALE 30 Days Hydrocodone-Acetaminophen 5-325 mg Tab 1 Tab PO Q4H PRN Sensipar (Cinacalcet) 30 Mg Tab 30 Mg PO DAILY Xanax (Alprazolam) 0.25 Mg Tab 0.125 Mg PO Q6H PRN Prozac (Fluoxetine HCl) 10 Mg Cap 30 Mg PO DAILY Reported Gabapentin 100 Mg Cap 100 Mg PO BID Meclizine (Meclizine HCl) 25 Mg Tab 25 Mg PO TID PRN Aspirin 81 (Aspirin) 81 Mg Tabdr 81 Mg PO DAILY Levothyroxine (Levothyroxine Sodium) 300 Mcg Tab 300 Mcg PO DAILY Calcitriol 0.5 Mcg Cap 0.5 Mcg PO DAILY Atorvastatin (Atorvastatin Calcium) 80 Mg Tab 80 Mg PO HS Review of Systems Except as stated in HPI: all other systems reviewed are Neg Physical Exam Narrative GENERAL: Well-developed, overly nourished, in no acute distress, and non-ill appearing. SKIN: Large surgical wound noted across the lower abdomen with [address] There is mild erythematous. Patient reports tenderness there is no crepitus. There is scant drainage noted on the right where wound is dehisced. Patient has a large sacral decubitus ulcer as well as a area of necrosis right hip patient reports tenderness to there is no crepitus. Patient has chronic stasis dermatitis noted bilateral lower extremities patient reports looks better since starting dialysis. HEAD: Atraumatic. Normocephalic. EYES: Pupils equal and round. EOMI. No scleral icterus. No injection or drainage. ENT: No nasal bleeding or discharge. Mucous membranes pink and moist. NECK: Trachea midline. Supple. No nuclear rigidity. CARDIOVASCULAR: Regular rate and rhythm. No murmur appreciated. RESPIRATORY: No accessory muscle use. No respiratory distress. Clear to auscultation. Breath sounds equal bilaterally. MUSCULOSKELETAL: No obvious deformities. No clubbing. No cyanosis. No edema. Full range of motion. NEUROLOGICAL: Awake and alert. No obvious cranial nerve deficits. Motor grossly within normal limits. Normal speech. PSYCHIATRIC: Appropriate mood and affect; insight and judgment normal. Data Data Last Documented VS Vital Signs Date Time Temp Pulse Resp B/P Pulse Ox O2 Delivery O2 Flow Rate FiO2 07/09/16 11:36 93 20 124/58 Room Air 07/09/16 11:19 98.6 96 Orders Complete Blood Count With Diff (07/09/16 11:33) Comprehensive Metabolic Panel (07/09/16 11:33) Prothrombin Time / Inr (Pt) (07/09/16 11:33) Act Partial Throm Time (Ptt) (07/09/16 11:33) Iv Access Insert/Monitor (07/09/16 11:33) Ecg Monitoring (07/09/16 11:33) Oximetry (07/09/16 11:33) Sodium Chloride 0.9% Flush (Ns Flush) (07/09/16 11:45) Westergren Sedimentation Rate (07/09/16 11:33) C-Reactive Protein (Crp) (07/09/16 11:33) Acetamin-Hydrocod 325-5 Mg (Perry 5-325 (07/09/16 11:45) Alprazolam (Xanax) (07/09/16 12:22) Piperacil-Tazo 4.5 Gm Premix (Zosyn 4.5 (07/09/16 12:45) Wound Culture And Gram Stain (07/09/16 12:51) Consult Plastic Surgery (07/09/16 ) Consult Nephrology (07/09/16 ) Hydromorphone Pf Inj (Dilaudid Pf Inj) (07/09/16 13:00) Ondansetron Inj (Zofran Inj) (07/09/16 13:00) Admit Order (Ed Use Only) (07/09/16 13:06) Alprazolam (Xanax) (07/09/16 13:15) Atorvastatin (Lipitor) (07/09/16 21:00) Calcitriol (Rocaltrol) (07/10/16 09:00) Cinacalcet (Sensipar) (07/10/16 09:00) Fluoxetine (Prozac) (07/10/16 09:00) Gabapentin (Neurontin) (07/09/16 21:00) Acetamin-Hydrocod 325-5 Mg (Perry 5-325 (07/09/16 13:15) Insulin Detemir Inj (Levemir Inj) (07/09/16 21:00) Insulin Detemir Inj (Levemir Inj) (07/10/16 09:00) Levothyroxine (Synthroid) (07/10/16 09:00) Meclizine (Antivert) (07/09/16 13:15) Methadone (Dolophine) (07/09/16 14:00) Sevelamer (Renvela) (07/09/16 18:00) Aspirin Ec (Ecotrin Ec) (07/10/16 09:00) Admit To Inpatient (07/09/16 ) Code Status (07/09/16 13:15) Vital Signs (Adult) Q4H (07/09/16 13:15) Activity Oob Ad Yanet (07/09/16 13:15) Bedside Glucose KAROLINA.AC&HS (07/09/16 13:15) Patcher / Telemetry .CONTINUOUS (07/09/16 13:15) Intake + Output KAROLINA.QSHIFT (07/09/16 13:15) Notify Dr: Other (07/09/16 13:15) Diet 1800 Ada Cons Carb (07/09/16 Lunch) Sodium Chloride 0.9% Flush (Ns Flush) (07/09/16 13:15) Sodium Chloride 0.9% Flush (Ns Flush) (07/09/16 21:00) Acetaminophen (Tylenol) (07/09/16 13:15) Ondansetron Inj (Zofran Inj) (07/09/16 13:15) Bisacodyl Supp (Dulcolax Supp) (07/09/16 13:15) Basic Metabolic Panel (Bmp) (07/10/16 06:00) Complete Blood Count With Diff (07/10/16 06:00) Heparin Inj (Heparin Inj) (07/09/16 13:15) Naloxone Inj (Narcan Inj) (07/09/16 13:15) Inpatient Certification (07/09/16 ) Labs Laboratory Tests Test 07/09/16 07/09/16 11:33 11:45 Erythrocyte Sedimentation Rate GREATER THAN 140 mm/hr White Blood Count 17.9 TH/MM3 Red Blood Count 3.38 MIL/MM3 Hemoglobin 9.1 GM/DL Hematocrit 28.5 % Mean Corpuscular Volume 84.5 FL Mean Corpuscular Hemoglobin 27.0 PG Mean Corpuscular Hemoglobin 32.0 % Concent Red Cell Distribution Width 15.9 % Platelet Count 689 TH/MM3 Mean Platelet Volume 6.5 FL Neutrophils (%) (Auto) 82.6 % Lymphocytes (%) (Auto) 11.1 % Monocytes (%) (Auto) 3.9 % Eosinophils (%) (Auto) 1.8 % Basophils (%) (Auto) 0.6 % Neutrophils # (Auto) 14.8 TH/MM3 Lymphocytes # (Auto) 2.0 TH/MM3 Monocytes # (Auto) 0.7 TH/MM3 Eosinophils # (Auto) 0.3 TH/MM3 Basophils # (Auto) 0.1 TH/MM3 CBC Comment DIFF FINAL Differential Comment Prothrombin Time 14.4 SEC Prothromb Time International 1.3 RATIO Ratio Activated Partial 37.4 SEC Thromboplast Time Sodium Level 133 MEQ/L Potassium Level 4.4 MEQ/L Chloride Level 94 MEQ/L Carbon Dioxide Level 25.1 MEQ/L Anion Gap 14 MEQ/L Blood Urea Nitrogen 53 MG/DL Creatinine 5.68 MG/DL Estimat Glomerular Filtration 8 ML/MIN Rate Random Glucose 108 MG/DL Calcium Level 8.3 MG/DL Total Bilirubin 0.4 MG/DL Aspartate Amino Transf 15 U/L (AST/SGOT) Alanine Aminotransferase 8 U/L (ALT/SGPT) Alkaline Phosphatase 183 U/L C-Reactive Protein 23.00 MG/DL Total Protein 7.0 GM/DL Albumin 1.4 GM/DL MDM Medical Decision Making Medical Screen Exam Complete: Yes Emergency Medical Condition: Yes Differential Diagnosis Wound check, wound infection, nonhealing surgical wound, ESRD on HD, electrolyte abnormality, other Narrative Course Patient was seen and examined. Initial laboratory studies were obtained. Discussed patient with Dr. John, who saw and evaluated the patient and recommends giving patient dose of 4.5 mg Zosyn IV and have patient admitted. Discussed all findings and plan care of with patient, who is agreeable for admission. All questions were answered. Patient remained stable throughout her ED course. Physician Communication Physician Communication [address] Meyers, who states he will have his PA come see the patient and he will consult on the patient. [address] Maria, who is agreeable to admit the patient. Diagnosis Primary Impression: Infected surgical wound Qualified Code: T81.4XXA - Infected surgical wound, initial encounter Additional Impressions: Wound dehiscence, surgical Qualified Code: T81.31XA - Wound dehiscence, surgical, initial encounter Pressure ulcer of coccygeal region Qualified Code: L89.159 - Pressure ulcer of coccygeal region, unspecified pressure ulcer stage End stage renal disease on dialysis Admitting Information Admitting Physician Requests: Admit Condition: Stable Je Chavez July 09, 2016 11:46
[2016-07-09 12:13] LABS: AUTOMATED NEUTROPHIL # 14.8 TH/MM3 (1.8-7.7); BASOPHIL # 0.1 TH/MM3 (0-0.2); BASOPHIL % 0.6 % (0.0-2.0); EOSINOPHIL # 0.3 TH/MM3 (0-0.4); EOSINOPHIL % 1.8 % (0.0-4.0); HEMATOCRIT 28.5 % (35.0-46.0); HEMO FLAGS DIFF FINAL; LYMPH % 11.1 % (9.0-44.0); MEAN CELL VOLUME 84.5 FL (80.0-100.0); MONO % 3.9 % (0.0-8.0); NEUT % 82.6 % (16.0-70.0); PLATELET COUNT 689 TH/MM3 (150-450); RED BLOOD COUNT 3.38 MIL/MM3 (4.00-5.30); RED CELL DISTRIBUTION WIDTH 15.9 % (11.6-17.2); WHITE BLOOD COUNT 17.9 TH/MM3 (4.0-11.0)
[2016-07-09 12:20] LABS: APTT (PATIENT) 37.4 SEC (24.3-30.1); INTERNATIONAL NORMALIZED RATIO 1.3 RATIO; PROTHROMBIN TIME - PATIENT 14.4 SEC (9.8-11.6)
[2016-07-09] MEDS ORDERED: ALPRAZolam 0.25 MG TAB PO STA (12:22)
[2016-07-09 12:29] LABS: ANION GAP 14 MEQ/L (5-15); AST (GOT) 15 U/L (15-37); BICARBONATE 25.1 MEQ/L (21.0-32.0); BLOOD UREA NITROGEN 53 MG/DL (7-18); CHLORIDE 94 MEQ/L (98-107); GLOMERULAR FILTRATION RATE 8 ML/MIN (>89); POTASSIUM 4.4 MEQ/L (3.5-5.1); SODIUM (NA) 133 MEQ/L (136-145)
[2016-07-09 12:38] LABS: ALKALINE PHOSPHATASE 183 U/L (45-117); ALT (GPT) 8 U/L (10-53); TOTAL BILIRUBIN ADULT 0.4 MG/DL (0.2-1.0)
[2016-07-09] MEDS ORDERED: PIPERACIL-TAZO 4.5 GM PREMIX 100 ML IV ONE (12:45)
--- NOTE | 2016-07-09 12:50 | PD ---
Data Data Last Documented VS Vital Signs Date Time Temp Pulse Resp B/P Pulse Ox O2 Delivery O2 Flow Rate FiO2 07/09/16 11:36 93 20 124/58 Room Air 07/09/16 11:19 98.6 96 Orders Complete Blood Count With Diff (07/09/16 11:33) Comprehensive Metabolic Panel (07/09/16 11:33) Prothrombin Time / Inr (Pt) (07/09/16 11:33) Act Partial Throm Time (Ptt) (07/09/16 11:33) Iv Access Insert/Monitor (07/09/16 11:33) Ecg Monitoring (07/09/16 11:33) Oximetry (07/09/16 11:33) Sodium Chloride 0.9% Flush (Ns Flush) (07/09/16 11:45) Westergren Sedimentation Rate (07/09/16 11:33) C-Reactive Protein (Crp) (07/09/16 11:33) Acetamin-Hydrocod 325-5 Mg ([place] 5-325 (07/09/16 11:45) Alprazolam (Xanax) (07/09/16 12:22) Piperacil-Tazo 4.5 Gm Premix (Zosyn 4.5 (07/09/16 12:45) Labs Laboratory Tests Test 07/09/16 11:45 White Blood Count 17.9 TH/MM3 Red Blood Count 3.38 MIL/MM3 Hemoglobin 9.1 GM/DL Hematocrit 28.5 % Mean Corpuscular Volume 84.5 FL Mean Corpuscular Hemoglobin 27.0 PG Mean Corpuscular Hemoglobin 32.0 % Concent Red Cell Distribution Width 15.9 % Platelet Count 689 TH/MM3 Mean Platelet Volume 6.5 FL Neutrophils (%) (Auto) 82.6 % Lymphocytes (%) (Auto) 11.1 % Monocytes (%) (Auto) 3.9 % Eosinophils (%) (Auto) 1.8 % Basophils (%) (Auto) 0.6 % Neutrophils # (Auto) 14.8 TH/MM3 Lymphocytes # (Auto) 2.0 TH/MM3 Monocytes # (Auto) 0.7 TH/MM3 Eosinophils # (Auto) 0.3 TH/MM3 Basophils # (Auto) 0.1 TH/MM3 CBC Comment DIFF FINAL Differential Comment Prothrombin Time 14.4 SEC Prothromb Time International 1.3 RATIO Ratio Activated Partial 37.4 SEC Thromboplast Time Sodium Level 133 MEQ/L Potassium Level 4.4 MEQ/L Chloride Level 94 MEQ/L Carbon Dioxide Level 25.1 MEQ/L Anion Gap 14 MEQ/L Blood Urea Nitrogen 53 MG/DL Creatinine 5.68 MG/DL Estimat Glomerular Filtration 8 ML/MIN Rate Random Glucose 108 MG/DL Calcium Level 8.3 MG/DL Total Bilirubin 0.4 MG/DL Aspartate Amino Transf 15 U/L (AST/SGOT) Alanine Aminotransferase 8 U/L (ALT/SGPT) Alkaline Phosphatase 183 U/L C-Reactive Protein 23.00 MG/DL Total Protein 7.0 GM/DL Albumin 1.4 GM/DL MDM Supervised Visit with RONNIE: Yes Narrative Course The history, exam, and medical decision-making in the associated mid-level provider note were completed with my assistance. I reviewed and agree with the findings presented. I attest that I had a [id number] encounter with the patient on the same day, and personally performed and documented my assessment and findings in the medical record. *My assessment and Findings: The 55-year-old woman, morbidly obese, with chronic wounds of her abdominal pannus, her sacrum, and her hip, who presents with increased pain. She has multiple medical problems including end-stage renal disease. She is due for dialysis today. On exam she has dehiscence of her abdominal wound especially on the right lateral side fairly copious drainage. She has MELIA drains in multiple spots on her abdomen. There appears to be turbid drainage of multiple drains. Sacral wound is pretty deep as well. Some erythema redness surrounding it. She's had previous extensive debridements. We'll plan on admitting her for IV antibiotics, surgery to evaluate, reassess. Keith John MD July 09, 2016 12:50
[2016-07-09] MEDS ORDERED: HYDROmorphone HCL PF 1 MG/ML VIAL IV PUSH ONE (13:00)
[2016-07-09] MEDS ORDERED: ONDANSETRON HCL 4 MG/2 ML VIAL IV PUSH ONE (13:00)
[2016-07-09] MEDS ORDERED: BISACODYL 10 MG SUPP RECTAL PRN (13:15)
[2016-07-09] MEDS ORDERED: NALOXONE HCL 0.4 MG/ML AMP IV PRN (13:15)
[2016-07-09] MEDS ORDERED: ACETAMINOPHEN 325 MG TAB PO PRN ×2 (13:15→15:30)
[2016-07-09] MEDS ORDERED: MECLIZINE HCL 25 MG TAB PO PRN (13:15)
[2016-07-09] MEDS ORDERED: ACETAMINOPHEN/HYDROcodone 325 MG/5 MG TAB PO PRN (13:15)
--- NOTE | 2016-07-09 13:30 | HHI.HP ---
[facility] Aline Velarde MD Admission Diagnosis infected surgical wound, wound dehiscence, ESRD on HD Diagnoses: Chief Complaint: dehiscense of her abdominal wound worsening infection. Travel History International Travel<30 Days: No Contact w/Intl Traveler <30 Da: No Traveled to Known Affected Are: No History of Present Illness This is a pleasant 55 y/ female with nonhealing abdominal wound, Just Discharged from this facility some days ago. came for readmission. as we know and taking the Discharge Summary. Large necrotic wound located in the abdominal pannus area with cellulitis -Initially general surgeon was consulted but deferred this to plastic surgeon due to the severity of the wound. -So plastic surgeon was consulted in which Dr. Johnson did an excision large open wound 25 x 15 cm right side lower abdominal pannus on 05/22. -Patient continued to have necrotic tissue so another Excisional debridement of New necrotic area Right side of the abdomen 10x5 cm was done on 05/24. -Patient had another excisional debridement of right lower abdomen, 25 x 15 cm deep wound and right lateral abdomen, 10 x 5 cm superficial wound on 05/27. -On 06/28 patient had Wide excision of necrotic lower abdominal pannus with panniculectomy and partial closure. -per Plastics will allow patient OOB as soon as she can and change dressing with betadine soaked 4x4 directly on the skin daily. -watch for any further necrotic spots showing up. Keep sutures / nba for approx 2 weeks unless they get inflamed. Drains probably 2-3 weeks as well. -Dealt with Dr. Johnson over the phone in regards to discharge to SNF and he agreed to the discharge. -Dr. Meyers requested prophylaxis antibiotics ? so patient put on doxycycline. -During the treatment of patient's wound she was put on antibiotics. ID consulted and was managing. Treated empirically with vancomycin and Zosyn. Later she was switched to cefepime. Patient completed her antibiotic course during hospitalization and cellulitis resolved during sedation. She has Morbid Obesity, Hypertension, DM II Hemoglobin A1C 6.8, Hyperlipidemia, ESRD on HD Friday, and Friday, Chronic low back pain, Anemia of chronic disease, Patient declined GI recommendations for EGD and Colonoscopy, Coccygeal stress ulcer discharged to SNF. on this opportunity came from [facility], with Pain around the surgical wound of her abdomen and chronic wound of the buttocks, has dehiscence of the abdominal wound and copious drainage, as per clinical quality assurance specialist recommended Aguilar and he will come and evaluate the Patient. Seen in Emergency room in the presence of her Son Mr. Winter. Past Family Social History Past Medical History OA CAD status post Cardiac Catheterization and stent placement Hyperlipidemia CHF DM II ESRD on Hemodialysis T Hypertension Left lower arm fistula Spinal stenosis REESE Hypothyroidism. Past Surgical History Lap Band 2004, Laparoscopic Cholecystectomy 1996 PCI and stent placement June 2012 Dialysis Catheter placement on right C Section x 1 Reported Medications Reported Meds & Active Scripts Active Doxycycline Hyclate 100 Mg Cap 100 Mg PO BID 10 Days Operand Povidone-Iodine Topical (Povidone-Iodine Topical) 10% Soln 1 Applic TOP DAILY 14 Days Santyl (Collagenase) 250 Unit/Gm Oin 1 Applic EXT DAILY apply to coccygeal pressure ulcer Renvela (Sevelamer Carbonate) 800 Mg Tab 1,600 Mg PO TID Senna Plus 8.6-50 mg (Sennosides-Docusate Sodium) 1 Tab Tab 1 Tab PO BID Dolophine (Methadone HCl) 10 Mg Tab 5 Mg PO Q8HR Levemir Inj (Insulin Detemir) 1,000 unit/ 10 ML Vial 25 Units SQ DAILY 30 Days Levemir Inj (Insulin Detemir) 1,000 unit/ 10 ML Vial 15 Units SQ HS 30 Days Novolog Inj (Insulin Aspart) 100 Unit/Ml Inj 1 Unit SQ ACHS SLIDING SCALE 30 Days Hydrocodone-Acetaminophen 5-325 mg Tab 1 Tab PO Q4H PRN Sensipar (Cinacalcet) 30 Mg Tab 30 Mg PO DAILY Xanax (Alprazolam) 0.25 Mg Tab 0.125 Mg PO Q6H PRN Prozac (Fluoxetine HCl) 10 Mg Cap 30 Mg PO DAILY Reported Gabapentin 100 Mg Cap 100 Mg PO BID Meclizine (Meclizine HCl) 25 Mg Tab 25 Mg PO TID PRN Aspirin 81 (Aspirin) 81 Mg Tabdr 81 Mg PO DAILY Levothyroxine (Levothyroxine Sodium) 300 Mcg Tab 300 Mcg PO DAILY Calcitriol 0.5 Mcg Cap 0.5 Mcg PO DAILY Atorvastatin (Atorvastatin Calcium) 80 Mg Tab 80 Mg PO HS Allergies: Coded Allergies: Biaxin (Verified Allergy, Severe, swelling of face, 05/10/16) Iron (Verified Adverse Reaction, Severe, Constipation, 05/10/16) Morphine (Verified Adverse Reaction, Severe, 06/11/16) renal insufficiency. Active Ordered Medications Current Medications Medications (Trade) Dose Ordered Sig/Soren Route Start Time Stop Time Status Last Admin (NS Flush) 2 ml UNSCH PRN IV FLUSH 07/09/16 11:45 07/09/16 12:01 (Xanax) 0.125 mg Q6H PRN PO 07/09/16 13:15 (Lipitor) 80 mg HS PO 07/09/16 21:00 (Rocaltrol) 0.5 mcg DAILY PO 07/10/16 09:00 (Sensipar) 30 mg DAILY PO 07/10/16 09:00 (PROzac) 30 mg DAILY PO 07/10/16 09:00 (Neurontin) 100 mg BID PO 07/09/16 21:00 ([place] 5-325 Mg) 1 tab Q4H PRN PO 07/09/16 13:15 (Levemir Inj) 15 units HS SQ 07/09/16 21:00 (Levemir Inj) 25 units DAILY SQ 07/10/16 09:00 (Synthroid) 300 mcg DAILY PO 07/10/16 09:00 (Antivert) 25 mg TID PRN PO 07/09/16 13:15 (Dolophine) 5 mg Q8HR PO 07/09/16 14:00 (Renvela) 1,600 mg TID PO 07/09/16 18:00 (Ecotrin Ec) 81 mg DAILY PO 07/10/16 09:00 (NS Flush) 2 ml UNSCH PRN IV FLUSH 07/09/16 13:15 (NS Flush) 2 ml BID IV FLUSH 07/09/16 21:00 (Tylenol) 650 mg Q4H PRN PO 07/09/16 13:15 (Zofran Inj) 4 mg Q6H PRN IVP 07/09/16 13:15 UNV (Dulcolax Supp) 10 mg DAILY PRN RECTAL 07/09/16 13:15 (Heparin Inj) 5,000 units Q12H SQ 07/09/16 13:15 (Narcan Inj) 0.4 mg UNSCH PRN IV 07/09/16 13:15 Family History Denied by patient. Social History Lives with her and son Denies any toxic habit Physical Exam Vital Signs Vital Signs Date Time Temp Pulse Resp B/P Pulse Ox O2 Delivery O2 Flow Rate FiO2 07/09/16 11:36 93 20 124/58 Room Air 07/09/16 11:19 98.6 22 96 Physical Exam GENERAL: Morbidly obese female patient in no acute distress. SKIN: Warm and dry. The patient has multiple stitches in place covering left, middle and right lower quadrants, with erythema and left drainage in place draining. HEAD: Normocephalic and atraumatic. EYES: No injection, drainage, or hyphema noted. PERRLA. EOMI. ENT: No nasal drainage noted. Oropharynx is clear. NECK: Supple and the trachea is midline. CARDIOVASCULAR: Regular rate and rhythm. RESPIRATORY: Breath sounds are equal bilaterally with no accessory muscle use, wheezing, rhonchi, or crackles. GASTROINTESTINAL: Abdomen is soft, non-tender, and nondistended. MUSCULOSKELETAL: No obvious deformities, swelling, cyanosis, or ecchymosis is present throughout the upper and lower extremities. NEUROLOGICAL: Awake, alert, and oriented. Normal speech and gait. Cranial nerves are grossly intact. Laboratory Laboratory Tests Test 07/09/16 07/09/16 11:33 11:45 Erythrocyte Sedimentation Rate GREATER THAN 140 White Blood Count 17.9 Red Blood Count 3.38 Hemoglobin 9.1 Hematocrit 28.5 Mean Corpuscular Volume 84.5 Mean Corpuscular Hemoglobin 27.0 Mean Corpuscular Hemoglobin 32.0 Concent Red Cell Distribution Width 15.9 Platelet Count 689 Mean Platelet Volume 6.5 Neutrophils (%) (Auto) 82.6 Lymphocytes (%) (Auto) 11.1 Monocytes (%) (Auto) 3.9 Eosinophils (%) (Auto) 1.8 Basophils (%) (Auto) 0.6 Neutrophils # (Auto) 14.8 Lymphocytes # (Auto) 2.0 Monocytes # (Auto) 0.7 Eosinophils # (Auto) 0.3 Basophils # (Auto) 0.1 CBC Comment DIFF FINAL Differential Comment Prothrombin Time 14.4 Prothromb Time International 1.3 Ratio Activated Partial 37.4 Thromboplast Time Sodium Level 133 Potassium Level 4.4 Chloride Level 94 Carbon Dioxide Level 25.1 Anion Gap 14 Blood Urea Nitrogen 53 Creatinine 5.68 Estimat Glomerular Filtration 8 Rate Random Glucose 108 Calcium Level 8.3 Total Bilirubin 0.4 Aspartate Amino Transf 15 (AST/SGOT) Alanine Aminotransferase 8 (ALT/SGPT) Alkaline Phosphatase 183 C-Reactive Protein 23.00 Total Protein 7.0 Albumin 1.4 Date/Time Procedure Status Source Growth 07/09/16 13:05 Gram Stain Received Wound Abdomen Pending 07/09/16 13:05 Wound Culture Received Wound Abdomen Pending Result Diagram: 07/09/16 1145 07/09/16 1145 Imaging No new imaging studies performed. Assessment and Plan Assessment and Plan 1. Abdominal pannus wound cellulitis and ulcer, consulted Plastic Surgery, Started on Zosyn blood culture and Plastic Surgery. blood cultures. 2. Morbid Obesity strongly recommended diet and exercise, weight loss warranted. 3. Hypertension controlled will continue home medicines 4. DM II continue sliding scale. 5. Hyperlipidemia continue home medicines 6. ESRD on Hemodialysis and Friday, at this time going for HD 7. chronic low back pain and chronic pain syndrome continue pain medicine. DVT prophylaxis with Heparin every 12 hours. Code Status Full Code. Discussed Condition With ER PA, patient and her son in the room. Code Status Full Code. Discussed Condition With Patient, ER PA and her Son in ER. Physician Certification 2 Midnight Certification Type: Admission for Inpatient Services Order for Inpatient Services The services are ordered in accordance with Medicare regulations or non- Medicare payer requirements, as applicable. In the case of services not specified as inpatient-only, they are appropriately provided as inpatient services in accordance with the 2-midnight benchmark. Estimated LOS (days): 4 days is the estimated time the patient will need to remain in the hospital, assuming treatment plan goals are met and no additional complications. Post-Hospital Plan: Not yet determined Ken Franks MD July 09, 2016 13:30
[2016-07-09] MEDS ORDERED: METR-1 PO (13:47)
[2016-07-09] MEDS ORDERED: BETA10SO TOPICAL ×2 (13:47)
[2016-07-09] MEDS ORDERED: METH10003 PO (13:47)
[2016-07-09] MEDS: HEPARIN SODIUM - SQ 10,000 UNITS/ML VIAL SQ SCH ×2 (13:53→23:33)
[2016-07-09] MEDS ORDERED: LEVO200T4 PO (13:58)
[2016-07-09] MEDS ORDERED: LACTCAP8 PO (13:58)
[2016-07-09] MEDS ORDERED: CHOL1TAB41 PO (13:58)
[2016-07-09] MEDS ORDERED: LEVEMIR SQ ×2 (13:58)
[2016-07-09] MEDS ORDERED: FLUO-1 PO (13:58)
--- NOTE | 2016-07-09 14:12 | PD.CONS ---
History of Present Illness Service Plastics Consult Requested By Reason for Consult Dehisced/infected surgical wound of the lower abdomen. Primary Care Physician Aline Velarde MD Diagnoses: History of Present Illness Ms. Foley presents to the ER today, brought in by [facility] from a SNF. She is status post panniculectomy for removal of necrotic tissue on 06/28/16. She was discharged to the SNF last week. The patient complains of pain and states that she was not being given her normal dose of 10mg hydrocodone at the SNF, and was instead being given only 5mg. She denies any fever or chills. Review of Systems Except as stated in HPI: all other systems reviewed are Neg Past Family Social History Allergies: Coded Allergies: Biaxin (Verified Allergy, Severe, swelling of face, 05/10/16) Iron (Verified Adverse Reaction, Severe, Constipation, 05/10/16) Morphine (Verified Adverse Reaction, Severe, 06/11/16) renal insufficiency. Past Medical History ESRD on dialysis DM HTN CHF hypothyroid CAD chronic back pain Past Surgical History Lap band cardiac stent dialysis catheter, right Cholecystectomy Active Ordered Medications Current Medications Medications (Trade) Dose Ordered Sig/Soren Route Start Time Stop Time Status Last Admin (Xanax) 0.125 mg Q6H PRN PO 07/09/16 13:15 (Lipitor) 80 mg HS PO 07/09/16 21:00 (Rocaltrol) 0.5 mcg DAILY PO 07/10/16 09:00 (Sensipar) 30 mg DAILY PO 07/10/16 09:00 (PROzac) 30 mg DAILY PO 07/10/16 09:00 (Neurontin) 100 mg BID PO 07/09/16 21:00 ([place] 5-325 Mg) 1 tab Q4H PRN PO 07/09/16 13:15 (Levemir Inj) 15 units HS SQ 07/09/16 21:00 (Levemir Inj) 25 units DAILY SQ 07/10/16 09:00 (Synthroid) 300 mcg DAILY@06 PO 07/10/16 06:00 (Antivert) 25 mg TID PRN PO 07/09/16 13:15 (Dolophine) 5 mg Q8HR PO 07/09/16 14:00 (Renvela) 1,600 mg TID PO 07/09/16 18:00 (Ecotrin Ec) 81 mg DAILY PO 07/10/16 09:00 (NS Flush) 2 ml UNSCH PRN IV FLUSH 07/09/16 13:15 (NS Flush) 2 ml BID IV FLUSH 07/09/16 21:00 (Tylenol) 650 mg Q4H PRN PO 07/09/16 13:15 (Zofran Inj) 4 mg Q6H PRN IVP 07/09/16 13:15 (Dulcolax Supp) 10 mg DAILY PRN RECTAL 07/09/16 13:15 (Heparin Inj) 5,000 units Q12H SQ 07/09/16 13:15 07/09/16 13:53 Naloxone HCl 0.4 mg 0.4 mg UNSCH PRN IV 07/09/16 13:15 (Zosyn 2.25 Gm Premix) 50 ml @ 100 mls/hr Q8H IV 07/09/16 20:00 Social History Denies alcohol, tobacco, or other substance use. Physical Exam Vital Signs Vital Signs Date Time Temp Pulse Resp B/P Pulse Ox O2 Delivery O2 Flow Rate FiO2 07/09/16 11:36 93 20 124/58 Room Air 07/09/16 11:19 98.6 22 96 Physical Exam GENERAL: Patient is morbidly obese, lying in ER stretcher. SKIN: Surgical wound transverse across lower abdomen. There is an approximately 12cm area of wound dehiscence to the right lateral most aspect of the wound. There is no bleeding. Surrounding skin is erythematous with induration. There is yellow/white thick opaque drainage collected in the MELIA drain bulbs and oozing from the dehisced portion of the wound. The remainder of the wound is healing well with sutures and nba in place. Drains are in place. The wound to the sacrum has some necrotic tissue present in the wound bed, with the remainder covered in pink granulation tissue. Surrounding skin is erythematous. There is an odor preset, though this may be from the surgical wound as well. HEAD: Atraumatic. Normocephalic. EYES: Pupils equal round and reactive. Extraocular motions intact. No scleral icterus. No injection or drainage. ENT: Nose without bleeding, purulent drainage. Uvula midline. Airway patent. NECK: Trachea midline. CARDIOVASCULAR: Regular rate and rhythm without murmurs, gallops, or rubs. RESPIRATORY: Clear to auscultation. Breath sounds equal bilaterally. No wheezes , rales, or rhonchi. MUSCULOSKELETAL: Lower extremities with chronic stasis dermatitis. NEUROLOGICAL: Awake and alert. Motor and sensory grossly within normal limits. Normal speech. Laboratory Laboratory Tests Test 07/09/16 07/09/16 11:33 11:45 Erythrocyte Sedimentation Rate GREATER THAN 140 White Blood Count 17.9 Red Blood Count 3.38 Hemoglobin 9.1 Hematocrit 28.5 Mean Corpuscular Volume 84.5 Mean Corpuscular Hemoglobin 27.0 Mean Corpuscular Hemoglobin 32.0 Concent Red Cell Distribution Width 15.9 Platelet Count 689 Mean Platelet Volume 6.5 Neutrophils (%) (Auto) 82.6 Lymphocytes (%) (Auto) 11.1 Monocytes (%) (Auto) 3.9 Eosinophils (%) (Auto) 1.8 Basophils (%) (Auto) 0.6 Neutrophils # (Auto) 14.8 Lymphocytes # (Auto) 2.0 Monocytes # (Auto) 0.7 Eosinophils # (Auto) 0.3 Basophils # (Auto) 0.1 CBC Comment DIFF FINAL Differential Comment Prothrombin Time 14.4 Prothromb Time International 1.3 Ratio Activated Partial 37.4 Thromboplast Time Sodium Level 133 Potassium Level 4.4 Chloride Level 94 Carbon Dioxide Level 25.1 Anion Gap 14 Blood Urea Nitrogen 53 Creatinine 5.68 Estimat Glomerular Filtration 8 Rate Random Glucose 108 Calcium Level 8.3 Total Bilirubin 0.4 Aspartate Amino Transf 15 (AST/SGOT) Alanine Aminotransferase 8 (ALT/SGPT) Alkaline Phosphatase 183 C-Reactive Protein 23.00 Total Protein 7.0 Albumin 1.4 Date/Time Procedure Status Source Growth 07/09/16 13:05 Gram Stain Received Wound Abdomen Pending 07/09/16 13:05 Wound Culture Received Wound Abdomen Pending Result Diagram: 07/09/16 1145 07/09/16 1145 Assessment and Plan Problem List: (1) Wound dehiscence, surgical Status: Acute Plan: Three of the four drains are removed, the left lateral drain is left in place. Will order betadine wet to dry dressings for the time being. The patient is already receiving IV Zosyn in the ED, she will be admitted. Discussed with RN, Dr. Meyers. (2) Pressure ulcer of coccygeal region Status: Acute Plan: The wound appears to have a reduced amount of necrotic tissue when compared with the last time it was evaluated. Will also order betadine wet to dry dressings. Will return with Dr. Meyers for further evaluation and discussion regarding surgical debridement and possible wound vac placement. Discussed Condition With RN Dr. Meyers Problem Qualifiers (1) Wound dehiscence, surgical: Qualified Code: T81.31XA - Wound dehiscence, surgical, initial encounter (2) Pressure ulcer of coccygeal region: Qualified Code: L89.159 - Pressure ulcer of coccygeal region, unspecified pressure ulcer stage Dana Romero July 09, 2016 14:12
[2016-07-09] MEDS: METHADONE HCL 10 MG TAB PO SCH ×2 (14:36→21:32)
[2016-07-09] MEDS ORDERED: SODIUM CHLOR 0.9% 1000 ML INJ 1,000 ML IV PRN ×3 (15:17)
[2016-07-09] MEDS ORDERED: ONDANSETRON HCL 4 MG/2 ML VIAL IV PRN (15:30)
[2016-07-09] MEDS ORDERED: MANNITOL 12.5 GM/50 ML VIAL IV PRN (15:30)
[2016-07-09] MEDS ORDERED: ALBUMIN HUMAN 25% 25 GM/100 ML BAGP IV PRN (15:30)
[2016-07-09] MEDS ORDERED: cloNIDine HCL 0.1 MG TAB PO PRN (15:30)
[2016-07-09] MEDS ORDERED: NITROGLYCERIN 0.4 MG SL 25 TABS/BTL SL PRN (15:30)
[2016-07-09] MEDS ORDERED: diphenhydrAMINE HCL 25 MG CAP PO PRN (15:30)
[2016-07-09] MEDS ORDERED: HEPARIN SODIUM - IV 10,000 UNITS/10 ML VIAL IVF PRN (15:30)
[2016-07-09] MEDS ORDERED: GELATIN 12 MM/7 MM FOAM TOP PRN (15:30)
[2016-07-09] MEDS: GENTAMICIN SULFATE (DIALYSIS USE ONLY) 20 MG/2 ML VIAL IV PRN (16:10)
[2016-07-09] MEDS: EPOETIN ALFA 10,000 UNITS/ML VIAL IV PRN (16:10)
[2016-07-09] MEDS: HEPARIN SODIUM - IV 10,000 UNITS/10 ML VIAL PRN (16:10)
[2016-07-09] MEDS: SEVELAMER CARBONATE 800 MG TAB PO SCH (18:00)
[2016-07-09] MEDS: ACETAMINOPHEN/HYDROcodone 325 MG/10 MG TAB PO PRN ×2 (19:03→23:34)
[2016-07-09 20:00] VITALS: BP 128/58; PULSE 85; RESP 18; TEMP 98.4; O2SAT 99
[2016-07-09] MEDS ORDERED: INSULIN DETEMIR 100 UNITS/ML VIAL SQ SCH (21:00)
[2016-07-09] MEDS: ATORVASTATIN 80 MG TAB PO SCH (21:31)
[2016-07-09] MEDS: GABAPENTIN 100 MG CAP PO SCH (21:31)
[2016-07-09] MEDS: SODIUM CHLORIDE 0.9% FLUSH 10 ML FLUSH IV FLUSH SCH (21:33)
[2016-07-09] MEDS: PIPERACIL-TAZO 2.25 GM PREMIX 50 ML IV SCH (23:21)
[2016-07-10] VITALS (8 sets, daily range): BP systolic 109–148; BP diastolic 49–61; PULSE 72–86; RESP 18–20; TEMP 97.5–98.1; O2SAT 97–100
[2016-07-10] MEDS: ALPRAZolam 0.25 MG TAB PO PRN (01:12)
[2016-07-10] MEDS ORDERED: HYDROmorphone HCL PF 1 MG/ML VIAL IV PUSH ONE (01:30)
[2016-07-10] MEDS: PIPERACIL-TAZO 2.25 GM PREMIX 50 ML IV SCH ×3 (04:51→21:39)
[2016-07-10] MEDS: ACETAMINOPHEN/HYDROcodone 325 MG/10 MG TAB PO PRN ×4 (04:52→23:29)
[2016-07-10] MEDS: LEVOTHYROXINE SODIUM 150 MCG TAB PO SCH (04:53)
[2016-07-10] MEDS: METHADONE HCL 10 MG TAB PO SCH ×3 (06:06→21:40)
[2016-07-10 07:37] LABS: AUTOMATED NEUTROPHIL # 11.2 TH/MM3 (1.8-7.7); BASOPHIL # 0.1 TH/MM3 (0-0.2); BASOPHIL % 0.8 % (0.0-2.0); EOSINOPHIL # 0.2 TH/MM3 (0-0.4); EOSINOPHIL % 1.5 % (0.0-4.0); HEMATOCRIT 24.4 % (35.0-46.0); HEMO FLAGS DIFF FINAL; LYMPH % 13.8 % (9.0-44.0); MEAN CELL VOLUME 85.2 FL (80.0-100.0); MEAN CORPUSCULAR HEMOGLOBIN 27.7 PG (27.0-34.0); MEAN CORPUSCULAR HGB CONC 32.6 % (32.0-36.0); NEUT % 77.9 % (16.0-70.0); PLATELET COUNT 411 TH/MM3 (150-450); RED BLOOD COUNT 2.86 MIL/MM3 (4.00-5.30); RED CELL DISTRIBUTION WIDTH 15.9 % (11.6-17.2); WHITE BLOOD COUNT 14.4 TH/MM3 (4.0-11.0)
[2016-07-10 08:00] LABS: BICARBONATE 23.7 MEQ/L (21.0-32.0); POTASSIUM 4.5 MEQ/L (3.5-5.1)
--- NOTE | 2016-07-10 08:20 | HHI.PR ---
Subjective Remarks This is a pleasant 55 y/ female with nonhealing abdominal wound, Just Discharged from this facility some days ago. came for readmission. as we know and taking the Discharge Summary. Large necrotic wound located in the abdominal pannus area with cellulitis -Initially general surgeon was consulted but deferred this to plastic surgeon due to the severity of the wound. -So plastic surgeon was consulted in which Dr. Johnson did an excision large open wound 25 x 15 cm right side lower abdominal pannus on 05/22. -Patient continued to have necrotic tissue so another Excisional debridement of New necrotic area Right side of the abdomen 10x5 cm was done on 05/24. -Patient had another excisional debridement of right lower abdomen, 25 x 15 cm deep wound and right lateral abdomen, 10 x 5 cm superficial wound on 05/27. -On 06/28 patient had Wide excision of necrotic lower abdominal pannus with panniculectomy and partial closure. -per Plastics will allow patient OOB as soon as she can and change dressing with betadine soaked 4x4 directly on the skin daily. -watch for any further necrotic spots showing up. Keep sutures / nba for approx 2 weeks unless they get inflamed. Drains probably 2-3 weeks as well. -Dealt with Dr. Johnson over the phone in regards to discharge to SNF and he agreed to the discharge. -Dr. Meyers requested prophylaxis antibiotics ? so patient put on doxycycline. -During the treatment of patient's wound she was put on antibiotics. ID consulted and was managing. Treated empirically with vancomycin and Zosyn. Later she was switched to cefepime. Patient completed her antibiotic course during hospitalization and cellulitis resolved during sedation. She has Morbid Obesity, Hypertension, DM II Hemoglobin A1C 6.8, Hyperlipidemia, ESRD on HD Friday, and Friday, Chronic low back pain, Anemia of chronic disease, Patient declined GI recommendations for EGD and Colonoscopy, Coccygeal stress ulcer discharged to SNF. on this opportunity came from [facility], with Pain around the surgical wound of her abdomen and chronic wound of the buttocks, has dehiscence of the abdominal wound and copious drainage, as per marketing data specialist recommended Zosyn and he will come and evaluate the Patient. 07/10: Stable resting in bed, discussed with nurse Miss Bailey, her Son and another relative in the room, asked for Dietitian, no nausea, vomit or diarrhea will go for Dialysis, seen by Plastic Surgery Wound dehiscence surgical, three of four drains are removed, the left lateral drain is left in place, ordered Betadine wet to dry dressing, to continue Zosyn, following wound cultures. Pressure ulcer of coccygeal region, thinking in I and D and Vacuum placement. Objective Vital Signs Date Time Temp Pulse Resp B/P Pulse Ox O2 Delivery O2 Flow Rate FiO2 07/10/16 08:00 97.7 73 18 123/53 99 07/10/16 04:00 98.0 76 18 140/61 100 07/10/16 00:00 86 07/10/16 00:00 98.0 81 18 120/60 98 07/09/16 20:00 98.4 85 18 128/58 99 07/09/16 11:36 93 20 124/58 Room Air 07/09/16 11:19 98.6 22 96 I/O 07/09/16 07/09/16 07/09/16 07/10/16 07/10/16 07/10/16 07:00 15:00 23:00 07:00 15:00 23:00 Intake Total 240 ml 240 ml Output Total 1300 ml 1 ml Balance -1060 ml 239 ml Intake Oral 240 ml 240 ml Output Urine Total 0 ml 1 ml Hemodialysis 1300 ml # Bowel Movements 0 1 Result Diagram: 07/10/16 0635 07/10/16 0635 Imaging No new imaging studies. Procedures No procedures performed. Other Results Laboratory Tests Test 07/09/16 07/09/16 07/10/16 11:33 11:45 06:35 Erythrocyte Sedimentation Rate GREATER THAN 140 mm/hr Prothrombin Time 14.4 SEC Prothromb Time International 1.3 RATIO Ratio Activated Partial 37.4 SEC Thromboplast Time Total Bilirubin 0.4 MG/DL Aspartate Amino Transf 15 U/L (AST/SGOT) Alanine Aminotransferase 8 U/L (ALT/SGPT) Alkaline Phosphatase 183 U/L C-Reactive Protein 23.00 MG/DL Total Protein 7.0 GM/DL Albumin 1.4 GM/DL White Blood Count 14.4 TH/MM3 Red Blood Count 2.86 MIL/MM3 Hemoglobin 7.9 GM/DL Hematocrit 24.4 % Mean Corpuscular Volume 85.2 FL Mean Corpuscular Hemoglobin 27.7 PG Mean Corpuscular Hemoglobin 32.6 % Concent Red Cell Distribution Width 15.9 % Platelet Count 411 TH/MM3 Mean Platelet Volume 6.5 FL Neutrophils (%) (Auto) 77.9 % Lymphocytes (%) (Auto) 13.8 % Monocytes (%) (Auto) 6.0 % Eosinophils (%) (Auto) 1.5 % Basophils (%) (Auto) 0.8 % Neutrophils # (Auto) 11.2 TH/MM3 Lymphocytes # (Auto) 2.0 TH/MM3 Monocytes # (Auto) 0.9 TH/MM3 Eosinophils # (Auto) 0.2 TH/MM3 Basophils # (Auto) 0.1 TH/MM3 CBC Comment DIFF FINAL Differential Comment Sodium Level 138 MEQ/L Potassium Level 4.5 MEQ/L Chloride Level 101 MEQ/L Carbon Dioxide Level 23.7 MEQ/L Anion Gap 13 MEQ/L Blood Urea Nitrogen 34 MG/DL Creatinine 3.90 MG/DL Estimat Glomerular Filtration 12 ML/MIN Rate Random Glucose 82 MG/DL Calcium Level 7.4 MG/DL Phosphorus Level 2.6 MG/DL Objective Remarks GENERAL: Morbidly obese female patient in no acute distress. SKIN: Warm and dry. The patient has multiple stitches in place covering left, middle and right lower quadrants, with erythema and left drainage in place draining. HEAD: Normocephalic and atraumatic. EYES: No injection, drainage, or hyphema noted. PERRLA. EOMI. ENT: No nasal drainage noted. Oropharynx is clear. NECK: Supple and the trachea is midline. CARDIOVASCULAR: Regular rate and rhythm. RESPIRATORY: Breath sounds are equal bilaterally with no accessory muscle use, wheezing, rhonchi, or crackles. GASTROINTESTINAL: Abdomen is soft, non-tender, and nondistended. MUSCULOSKELETAL: No obvious deformities, swelling, cyanosis, or ecchymosis is present throughout the upper and lower extremities. NEUROLOGICAL: Awake, alert, and oriented. Normal speech and gait. Cranial nerves are grossly intact. Medications and IVs Current Medications Medications (Trade) Dose Ordered Sig/Soren Route Start Time Stop Time Status Last Admin (Xanax) 0.125 mg Q6H PRN PO 07/09/16 13:15 07/10/16 01:12 (Lipitor) 80 mg HS PO 07/09/16 21:00 07/09/16 21:31 (Rocaltrol) 0.5 mcg DAILY PO 07/10/16 09:00 (Sensipar) 30 mg DAILY PO 07/10/16 09:00 (PROzac) 30 mg DAILY PO 07/10/16 09:00 (Neurontin) 100 mg BID PO 07/09/16 21:00 07/09/16 21:31 (Levemir Inj) 15 units HS SQ 07/09/16 21:00 (Levemir Inj) 25 units DAILY SQ 07/10/16 09:00 (Synthroid) 300 mcg DAILY@06 PO 07/10/16 06:00 07/10/16 04:53 (Antivert) 25 mg TID PRN PO 07/09/16 13:15 (Dolophine) 5 mg Q8HR PO 07/09/16 14:00 07/10/16 06:06 (Renvela) 1,600 mg TID PO 07/09/16 18:00 (Ecotrin Ec) 81 mg DAILY PO 07/10/16 09:00 (NS Flush) 2 ml UNSCH PRN IV FLUSH 07/09/16 13:15 (NS Flush) 2 ml BID IV FLUSH 07/09/16 21:00 07/09/16 21:33 (Tylenol) 650 mg Q4H PRN PO 07/09/16 13:15 (Zofran Inj) 4 mg Q6H PRN IVP 07/09/16 13:15 (Dulcolax Supp) 10 mg DAILY PRN RECTAL 07/09/16 13:15 (Heparin Inj) 5,000 units Q12H SQ 07/09/16 13:15 07/09/16 23:33 Naloxone HCl 0.4 mg 0.4 mg UNSCH PRN IV 07/09/16 13:15 (Zosyn 2.25 Gm Premix) 50 ml @ 100 mls/hr Q8H IV 07/09/16 20:00 07/10/16 04:51 (Betadine 10% Top Soln) 1 applic BID TOPICAL 07/09/16 21:00 07/09/16 00:00 Acetaminophen/ Hydrocodone Bitart 1 tab 1 tab Q4H PRN PO 07/09/16 15:00 07/10/16 04:52 (NS 1000 ml Inj) 1,000 ml @ 0 mls/hr Q0M PRN IV 07/09/16 15:17 07/09/16 16:09 Heparin Sodium (Porcine) 8000 units 8,000 units UNSCH PRN IVF 07/09/16 15:30 Sodium Chloride 1,000 ml @ 200 mls/hr Q5H PRN IV 07/09/16 15:17 (NS 1000 ml Inj) 1,000 ml @ 0 mls/hr Q0M PRN IV 07/09/16 15:17 (Mannitol Inj) 12.5 gm UNSCH PRN IV 07/09/16 15:30 (Albumin 25% Inj) 25 gm UNSCH PRN IV 07/09/16 15:30 07/09/16 16:11 (NS Flush) 5 ml UNSCH PRN IV FLUSH 07/09/16 15:30 (Heparin Inj) UNSCH PRN .XX 07/09/16 15:30 07/09/16 16:10 (Gentamicin (Dialysis) Inj) 20 mg UNSCH PRN IV 07/09/16 15:30 07/09/16 16:10 (Zofran Inj) 4 mg UNSCH PRN IV 07/09/16 15:30 (Tylenol) 650 mg UNSCH PRN PO 07/09/16 15:30 (Benadryl) 25 mg UNSCH PRN PO 07/09/16 15:30 (Nitrostat Sl) 0.4 mg UNSCH PRN SL 07/09/16 15:30 (Catapres) 0.1 mg UNSCH PRN PO 07/09/16 15:30 (Epogen Inj) 10,000 units UNSCH PRN IV 07/09/16 15:30 07/09/16 16:10 (Gelfoam 12 Mm/7 Mm Top) 1 foam UNSCH PRN TOP 07/09/16 15:30 A/P Assessment and Plan 1. Wound dehiscence surgical, three of four drains are removed, the left lateral drain is left in place, ordered Betadine wet to dry dressing, to continue Zosyn, following wound cultures. Pressure ulcer of coccygeal region, thinking in I and D and Vacuum placement. 2. Morbid Obesity strongly recommended diet and exercise, weight loss warranted. 3. Hypertension controlled will continue home medicines 4. DM II continue sliding scale. 5. Hyperlipidemia continue home medicines 6. ESRD on Hemodialysis and Friday. 7. chronic low back pain and chronic pain syndrome continue pain medicine. DVT prophylaxis with Heparin every 12 hours. Code Status Full Code. Discussed Condition With Patient, her son and another relative in the room. Code Status Full Code. Discharge Planning Not yet cleared for discharge. Ken Franks MD July 10, 2016 08:20
[2016-07-10 08:26] LABS: CALCIUM-PROTEIN CORRECTED 8.6 MG/DL (8.5-10.1)
[2016-07-10] MEDS: SODIUM CHLORIDE 0.9% FLUSH 10 ML FLUSH IV FLUSH SCH ×2 (09:00→21:39)
[2016-07-10] MEDS: POVIDONE IODINE 10% SOLN 118 ML BOTTLE TOPICAL SCH ×2 (09:00→21:00)
[2016-07-10] MEDS: INSULIN DETEMIR 100 UNITS/ML VIAL SQ SCH ×2 (09:00→21:49)
[2016-07-10] MEDS ORDERED: INSULIN DETEMIR 100 UNITS/ML VIAL SQ SCH (09:00)
[2016-07-10] MEDS: CALCITRIOL 0.25 MCG CAP PO SCH (09:00)
[2016-07-10] MEDS: GABAPENTIN 100 MG CAP PO SCH ×2 (09:18→21:39)
[2016-07-10] MEDS: FLUoxetine HCL 10 MG CAP PO SCH (09:18)
[2016-07-10] MEDS: CINACALCET HYDROCHLORIDE 30 MG TAB PO SCH (09:18)
[2016-07-10] MEDS: ASPIRIN EC 81 MG TABEC PO SCH (09:19)
[2016-07-10] MEDS: SEVELAMER CARBONATE 800 MG TAB PO SCH ×3 (09:19→17:17)
[2016-07-10] MEDS: INSULIN NovoLIN REGULAR SUPPLEMENTAL SCALE SQ SCH ×3 (11:00→21:49)
--- NOTE | 2016-07-10 11:15 | HHI.NPPN ---
Subjective General Problems: Anemia, Edema, Hypertension Renal Failure: End Stage Renal Disease History of Present Illness 55-year-old female with past medical history of hypertension, morbid obesity, history of multiple abdominal wall, diabetes mellitus, ischemic heart disease, hypothyroidism, spinal stenosis and end-stage renal disease on hemodialysis three times per week who came to the hospital because of worsening pain in her wound. Additional Remarks Patient is alert, has mild pain in abd. area, no SOB. Review of Systems Respiratory Lungs: SOB, Wheeze Cardiovascular Cardiac: GRIFFIN Gastrointestinal Gastrointestinal: Abdominal Pain Objective Data Data 07/09/16 07/10/16 19:00 07:00 Intake Total 630 ml Output Total 1300 ml 16 ml Balance -1300 ml 614 ml Intake Oral 480 ml IV Total 150 ml Output Urine Total 1 ml Drainage Total 15 ml Hemodialysis 1300 ml # Bowel Movements 1 Vital Signs Date Time Temp Pulse Resp B/P Pulse Ox O2 Delivery O2 Flow Rate FiO2 07/10/16 08:00 97.7 73 18 123/53 99 07/10/16 04:00 98.0 76 18 140/61 100 07/10/16 00:00 86 07/10/16 00:00 98.0 81 18 120/60 98 07/09/16 20:00 98.4 85 18 128/58 99 07/09/16 11:36 93 20 124/58 Room Air 07/09/16 11:19 98.6 22 96 -: 07/10/16 0635 07/10/16 0635 Microbiology 07/09/16 Gram Stain - Final, Resulted 07/09/16 Wound Culture, Resulted Pending 07/09/16 Aerobic Blood Culture - Preliminary, Resulted NO GROWTH IN 1 DAY 07/09/16 Anaerobic Blood Culture - Preliminary, Resulted NO GROWTH IN 1 DAY 07/09/16 Aerobic Blood Culture - Preliminary, Resulted NO GROWTH IN 1 DAY 07/09/16 Anaerobic Blood Culture - Preliminary, Resulted NO GROWTH IN 1 DAY Physical Exam General Appearance: No Acute Distress, Comfortable Eyes Eye Exam: Pupils Equal Throat Throat Exam: Oral Mucosa [place] & Moist Neck Neck Exam: Neck Supple Pulmonary Resp Exam: Breath Sounds Equal, No Distress, Rhonchi, Decreased Bases Cardiology CV Exam: Regular, Normal Sinus Rhythm Gastrointestinal/Abdomen GI Exam: Soft, Bowel Sounds Present, Distended Extremeties Extremities Exam: Moderate Edema, Pitting Edema, Dependent Edema Neurologic Neuro Exam: Alert, Awake, Oriented Psychiatric Psych Exam: Appropriate Responses Assessment/Plan Assessment Summary: Anemia of CKD, Hypertension, End Stage Renal Disease Problem List: (1) Anemia in chronic kidney disease (CKD) (2) Anxiety (3) Open wound of abdomen (4) Infected surgical wound (5) Type II diabetes mellitus with neurological manifestations, uncontrolled (6) End stage kidney disease Plan Patient has HD done yesterday. BP is stable. On Zosyn, follow the cultures. On Epogen for anemia. Transfuse as needed. Possible wound debridement. HD will be in AM. Problem Qualifiers (1) Infected surgical wound: Qualified Code: T81.4XXA - Infected surgical wound, initial encounter Valentin Jimenez MD July 10, 2016 11:15
[2016-07-10] MEDS ORDERED: SOD PHOSPHATE/SOD BIPHOSPHATE (ADULT) ENEMA 133ML RECTAL ONE (11:30)
[2016-07-10] MEDS ORDERED: HYDROmorphone HCL 2 MG TAB PO PRN (11:30)
[2016-07-10] MEDS: HEPARIN SODIUM - SQ 10,000 UNITS/ML VIAL SQ SCH (13:15)
--- NOTE | 2016-07-10 14:40 | MB ---
cc: ANJUM MIKE MD DATE OF CONSULTATION 07/09/16 REASON FOR CONSULTATION End-stage renal disease on hemodialysis for management. HISTORY OF PRESENT ILLNESS This is a 55-year-old female with past medical history of hypertension, morbid obesity, history of multiple abdominal wall, diabetes mellitus, ischemic heart disease, hypothyroidism, spinal stenosis and end-stage renal disease on hemodialysis three times per week who came to the hospital because of worsening pain in her wound. The patient was recently discharged from the hospital and she was admitted to the correction facility. The patient has multiple abdominal wall for which she had debridements done multiple times. 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 The patient was discharged and [facility] and [facility], according to the patient, she has worsening pain in the abdomen which are open and she has been following with the wound care. There was some foul smelling discharge and he developed new ulcer in the back of her buttock in the gluteal region and the patient was started on [facility]xycycline at the [facility]. She denies any history of fever but her pain has been increasing and according to her, she also has some foul smelling discharge coming out. She denies any nausea or vomiting. She went for her dialysis on Friday and she was supposed to go today for dialysis but she came in here. There is no shortness of breath, no chest pain, no palpitations. PAST MEDICAL HISTORY 1. Ischemic heart disease, 2. Diabetes mellitus, 3. Congestive heart failure, 4. Hyperlipidemia, 5. Hypertension, 6. Osteoarthritis with spinal stenosis 7. Hypothyroidism, 8. End-stage renal disease on hemodialysis three times per week. PAST SURGICAL HISTORY 1. Left arm AV fistula surgery 2. History of lap band. 3. Laparoscopic cholecystectomy, 4. section. REVIEW OF SYSTEMS The patient has generalized weakness, feeling tired. There is no history of nausea, vomiting. She has mild shortness of breath on exertion, has pain in her buttock area and also her lower abdominal area with some yellowish discharge. She denies any history of diarrhea. SOCIAL HISTORY The patient is single. There is no history of smoking or alcoholism. FAMILY HISTORY Noncontributory. ALLERGIES BIAXIN IRON MORPHINE MEDICATIONS Currently 1. Dextrose saline at 100 an hour 2. Gabapentin 100 mg b.i.d. 3. Calcitriol 0.5 mcg daily 4. Sensipar 30 mg once a day 5. Prozac 30 mg daily 6. Levemir 25 units subcu daily. 7. Aspirin 81 mg once a day. 8. Synthroid 300 mcg once a day. 9. Lipitor 80 mg daily 10. Levemir 15 units qhs 11. Heparin 5000 units subcu q. 12-hour. 12. Zosyn 2.25 grams q.8 h 13. Methadone 5 mg q. 8-hour 14. Percocet as needed. 15. Xanax as needed. 16. Antivert as needed. 17. [place] as needed. PHYSICAL EXAMINATION GENERAL: The patient is awake, alert. She was seen during dialysis. VITAL SIGNS: Her last blood pressure is 124/58, temperature 98.6, oxygen saturation on room air 96%. HEENT: Pupils equal, reacting to light. Nonicteric sclerae, conjunctivae pale. NECK: Supple. JVD is slightly elevated. LUNGS: The patient has bilateral decreased air entry with Few rhonchi. ABDOMEN: Distended. Soft, lax. There is some tenderness in the lower abdomen with dressing. EXTREMITIES: She has bilateral lymphedema which is chronic. LOWER EXTREMITY WBC count is 17.9, hemoglobin 9.1, platelet count 689, neutrophils 82.6%. Sodium 133, potassium 4.4, chloride 94, bicarb 25.1, BUN 53, creatinine 1.68, AST is 15, ALT is 8. C-reactive protein is 23, albumin is 1.4, total protein 7.0. Last PTH was 230 and this was in May. INR is 1.3. The wound culture done and is pending. IMAGING STUDIES There is no recent imaging study done. ASSESSMENT/PLAN 1. Possible wound infection. 2. Leukocytosis. 3. Chronic hemodialysis. 4. Morbid obesity. 5. Bedridden. 6. Anemia. The patient has multiple wounds and there was question calciphylaxis skin biopsy was negative for calciphylaxis and Zosyn. Her WBC count is high. There is possible wound infection. She has been following plastic surgery team to undergo further debridement if needed. At present, I saw her during dialysis and blood pressure was on the lower side. We are removing less fluid and she will continue on dialysis. Epogen will given during dialysis and I will follow her while she is in the hospital. Thank you for the consultation. MD NILSON Faulkner/ /4:55 PM /2:34 PM
[2016-07-10] MEDS: ATORVASTATIN 80 MG TAB PO SCH (21:39)
[2016-07-11] VITALS (8 sets, daily range): BP systolic 126–185; BP diastolic 56–65; PULSE 62–75; RESP 14–17; TEMP 97.7–98.2; O2SAT 96–100
[2016-07-11] MEDS: HEPARIN SODIUM - SQ 10,000 UNITS/ML VIAL SQ SCH ×2 (02:29→15:07)
[2016-07-11] MEDS: PIPERACIL-TAZO 2.25 GM PREMIX 50 ML IV SCH (04:46)
[2016-07-11] MEDS: ACETAMINOPHEN/HYDROcodone 325 MG/10 MG TAB PO PRN ×5 (04:46→23:24)
[2016-07-11] MEDS: LEVOTHYROXINE SODIUM 150 MCG TAB PO SCH (04:47)
[2016-07-11] MEDS: METHADONE HCL 10 MG TAB PO SCH ×3 (04:47→23:23)
[2016-07-11] MEDS: INSULIN NovoLIN REGULAR SUPPLEMENTAL SCALE SQ SCH ×4 (05:34→21:00)
[2016-07-11] MEDS: FLUoxetine HCL 10 MG CAP PO SCH (10:26)
[2016-07-11] MEDS: SEVELAMER CARBONATE 800 MG TAB PO SCH ×3 (10:26→16:07)
[2016-07-11] MEDS: ASPIRIN EC 81 MG TABEC PO SCH (10:27)
[2016-07-11] MEDS: GABAPENTIN 100 MG CAP PO SCH ×2 (10:27→23:22)
[2016-07-11] MEDS: CALCITRIOL 0.25 MCG CAP PO SCH (10:27)
[2016-07-11] MEDS: CINACALCET HYDROCHLORIDE 30 MG TAB PO SCH (10:27)
[2016-07-11] MEDS: SODIUM CHLORIDE 0.9% FLUSH 10 ML FLUSH IV FLUSH SCH ×2 (10:28→21:00)
[2016-07-11] MEDS: INSULIN DETEMIR 100 UNITS/ML VIAL SQ SCH ×2 (10:28→21:00)
--- NOTE | 2016-07-11 11:22 | HHI.NPPN ---
Subjective General Problems: Anemia, Edema, Hypertension Renal Failure: End Stage Renal Disease History of Present Illness 55-year-old female with past medical history of hypertension, morbid obesity, history of multiple abdominal wall, diabetes mellitus, ischemic heart disease, hypothyroidism, spinal stenosis and end-stage renal disease on hemodialysis three times per week who came to the hospital because of worsening pain in her wound. Additional Remarks Patient is alert, abd. pain is better, no SOB. Review of Systems Respiratory Lungs: SOB, Wheeze Cardiovascular Cardiac: GRIFFIN Gastrointestinal Gastrointestinal: Abdominal Pain Objective Data Data 07/10/16 07/11/16 19:00 07:00 Intake Total 360 ml 440 ml Balance 360 ml 440 ml Intake Oral 360 ml 240 ml IV Total 200 ml # Voids 1 # Bowel Movements 1 1 Vital Signs Date Time Temp Pulse Resp B/P Pulse Ox O2 Delivery O2 Flow Rate FiO2 07/11/16 08:00 97.8 75 16 137/62 97 07/11/16 04:00 Room Air 07/11/16 04:00 98.0 72 14 133/60 96 07/11/16 00:00 97.7 68 16 126/56 99 07/11/16 00:00 Room Air 07/10/16 21:19 21 07/10/16 20:00 Room Air 07/10/16 20:00 72 07/10/16 20:00 97.5 78 18 109/49 97 07/10/16 16:00 97.9 76 20 125/49 100 07/10/16 12:19 16 07/10/16 12:00 98.1 76 20 148/55 100 -: 07/10/16 0635 07/10/16 0635 Physical Exam General Appearance: No Acute Distress, Comfortable Eyes Eye Exam: Pupils Equal Throat Throat Exam: Oral Mucosa [place] & Moist Neck Neck Exam: Neck Supple Pulmonary Resp Exam: Breath Sounds Equal, No Distress, Rhonchi, Decreased Bases Cardiology CV Exam: Regular, Normal Sinus Rhythm Gastrointestinal/Abdomen GI Exam: Soft, Bowel Sounds Present, Distended Extremeties Extremities Exam: Moderate Edema, Pitting Edema, Dependent Edema Neurologic Neuro Exam: Alert, Awake, Oriented Psychiatric Psych Exam: Appropriate Responses Assessment/Plan Assessment Summary: Anemia of CKD, Hypertension, End Stage Renal Disease Problem List: (1) Anemia in chronic kidney disease (CKD) (2) Anxiety (3) Open wound of abdomen (4) Infected surgical wound (5) Type II diabetes mellitus with neurological manifestations, uncontrolled (6) End stage kidney disease Plan On HD, TTS. BP is stable. On Zosyn, wound cultures growing Pseudomonas and Enterococcus. On Epogen for anemia. Transfuse as needed. Possible wound debridement. HD today, remove fluid as tolerated. Problem Qualifiers (1) Infected surgical wound: Qualified Code: T81.4XXA - Infected surgical wound, initial encounter Valentin Jimenez MD July 11, 2016 11:22
--- NOTE | 2016-07-11 11:29 | PD.PLAS.PN ---
Subjective Remarks Patient seen on 07/10/16. Patient is status post panniculectomy for necrotic wounds on 06/28/16. Objective Vital Signs Date Time Temp Pulse Resp B/P Pulse Ox O2 Delivery O2 Flow Rate FiO2 07/11/16 08:00 97.8 75 16 137/62 97 07/11/16 04:00 Room Air 07/11/16 04:00 98.0 72 14 133/60 96 07/11/16 00:00 97.7 68 16 126/56 99 07/11/16 00:00 Room Air 07/10/16 21:19 21 07/10/16 20:00 Room Air 07/10/16 20:00 72 07/10/16 20:00 97.5 78 18 109/49 97 07/10/16 16:00 97.9 76 20 125/49 100 07/10/16 12:19 16 07/10/16 12:00 98.1 76 20 148/55 100 I/O 07/10/16 07/10/16 07/10/16 07/11/16 07/11/16 07/11/16 06:59 14:59 22:59 06:59 14:59 22:59 Intake Total 390 ml 360 ml 340 ml 100 ml Output Total 16 ml Balance 374 ml 360 ml 340 ml 100 ml Intake Oral 240 ml 360 ml 240 ml 0 ml IV Total 150 ml 100 ml 100 ml Output Urine Total 1 ml Drainage Total 15 ml # Voids 0 1 # Bowel Movements 1 1 0 1 Laboratory Tests Test 07/10/16 11:28 Parathyroid Hormone (Intact) LESS THAN 2.5 Date/Time Procedure Status Source Growth 07/09/16 21:03 Aerobic Blood Culture - Preliminary Resulted Blood Peripheral NO GROWTH IN 2 DAYS 07/09/16 21:03 Anaerobic Blood Culture - Preliminary Resulted Blood Peripheral NO GROWTH IN 2 DAYS 07/09/16 13:05 Gram Stain - Final Complete Wound Abdomen 07/09/16 13:05 Wound Culture - Final Complete Pseudomonas Aeruginosa Enterococcus Faecium Vre Result Diagram: 07/10/16 0635 07/10/16 0635 Exam Findings No change since yesterday's exam. Assessment and Plan Diagnosis: (1) Pressure ulcer of coccygeal region (2) Wound dehiscence, surgical Assessment and Plan The patient is advised that the wounds should be washed with hibiclens and thoroughly irrigated in the shower. She should work with PT to get out of bed and get into the shower. Continue dressing wounds with povidone iodine wet to dry dressings. We also discussed the importance of nutrition. Discussed with RN to get the patient protein supplements. The patient also noted difficulty swallowing as a reason that she is unable to consume enough calories. We discussed that this may be the result of the narcotic pain medication. Discussed with RN regarding the possibility of the patient reducing pain medication and using NSAIDs. Dana Romero July 11, 2016 11:29
[2016-07-11] MEDS ORDERED: Gentamicin Consult Pharmacy 1 EA OTHER SCH (12:45)
--- NOTE | 2016-07-11 12:53 | HHI.PR ---
Subjective Remarks This is a pleasant 55 y/ female with nonhealing abdominal wound, Just Discharged from this facility some days ago. came for readmission. as we know and taking the Discharge Summary. Large necrotic wound located in the abdominal pannus area with cellulitis -Initially general surgeon was consulted but deferred this to plastic surgeon due to the severity of the wound. -So plastic surgeon was consulted in which Dr. Johnson did an excision large open wound 25 x 15 cm right side lower abdominal pannus on 05/22. -Patient continued to have necrotic tissue so another Excisional debridement of New necrotic area Right side of the abdomen 10x5 cm was done on 05/24. -Patient had another excisional debridement of right lower abdomen, 25 x 15 cm deep wound and right lateral abdomen, 10 x 5 cm superficial wound on 05/27. -On 06/28 patient had Wide excision of necrotic lower abdominal pannus with panniculectomy and partial closure. -per Plastics will allow patient OOB as soon as she can and change dressing with betadine soaked 4x4 directly on the skin daily. -watch for any further necrotic spots showing up. Keep sutures / nba for approx 2 weeks unless they get inflamed. Drains probably 2-3 weeks as well. -Dealt with Dr. Johnson over the phone in regards to discharge to SNF and he agreed to the discharge. -Dr. Meyers requested prophylaxis antibiotics ? so patient put on doxycycline. -During the treatment of patient's wound she was put on antibiotics. ID consulted and was managing. Treated empirically with vancomycin and Zosyn. Later she was switched to cefepime. Patient completed her antibiotic course during hospitalization and cellulitis resolved during sedation. She has Morbid Obesity, Hypertension, DM II Hemoglobin A1C 6.8, Hyperlipidemia, ESRD on HD Friday, and Friday, Chronic low back pain, Anemia of chronic disease, Patient declined GI recommendations for EGD and Colonoscopy, Coccygeal stress ulcer discharged to SNF. on this opportunity came from [facility], with Pain around the surgical wound of her abdomen and chronic wound of the buttocks, has dehiscence of the abdominal wound and copious drainage, as per vaccines solutions specialist recommended Zosyn and he will come and evaluate the Patient. 07/10: Stable resting in bed, discussed with nurse Miss Bailey, her Son and another relative in the room, asked for Dietitian, no nausea, vomit or diarrhea will go for Dialysis, seen by Plastic Surgery Wound dehiscence surgical, three of four drains are removed, the left lateral drain is left in place, ordered Betadine wet to dry dressing, to continue Zosyn, following wound cultures. Pressure ulcer of coccygeal region, thinking in I and D and Vacuum placement. 5. 04: Seen in her bedroom in the presence of her Son, and nurse miss Nair, new Wound cultures positive for Pseudomonas Aeruginosa sensitive to Gentamicin, Imipenem and Tobramycin and also for Enterococcus Faecalis VRE sensitive to Daptomycin and Linezolid. the wounds should be washed with Hibiclens and thoroughly irrigated in the shower, recommended PT and OT, Nutrition started on Nepro was asked yesterday for Dietitian No nausea, vomit or diarrhea. Objective Vital Signs Date Time Temp Pulse Resp B/P Pulse Ox O2 Delivery O2 Flow Rate FiO2 07/11/16 11:25 18 07/11/16 08:00 97.8 75 16 137/62 97 07/11/16 04:00 Room Air 07/11/16 04:00 98.0 72 14 133/60 96 07/11/16 00:00 97.7 68 16 126/56 99 07/11/16 00:00 Room Air 07/10/16 21:19 21 07/10/16 20:00 Room Air 07/10/16 20:00 72 07/10/16 20:00 97.5 78 18 109/49 97 07/10/16 16:00 97.9 76 20 125/49 100 I/O 07/10/16 07/10/16 07/10/16 07/11/16 07/11/16 07/11/16 07:00 15:00 23:00 07:00 15:00 23:00 Intake Total 390 ml 360 ml 340 ml 100 ml Output Total 16 ml Balance 374 ml 360 ml 340 ml 100 ml Intake Oral 240 ml 360 ml 240 ml 0 ml IV Total 150 ml 100 ml 100 ml Output Urine Total 1 ml Drainage Total 15 ml # Voids 0 1 # Bowel Movements 1 1 0 1 Result Diagram: 07/10/16 0635 07/10/16 0635 Imaging No new imaging studies. Procedures No procedures performed. Other Results Laboratory Tests Test 07/09/16 07/09/16 07/10/16 07/10/16 11:33 11:45 06:35 11:28 Erythrocyte Sedimentation Rate GREATER THAN 140 mm/hr Prothrombin Time 14.4 SEC Prothromb Time International 1.3 RATIO Ratio Activated Partial 37.4 SEC Thromboplast Time Total Bilirubin 0.4 MG/DL Aspartate Amino Transf 15 U/L (AST/SGOT) Alanine Aminotransferase 8 U/L (ALT/SGPT) Alkaline Phosphatase 183 U/L C-Reactive Protein 23.00 MG/DL Albumin 1.4 GM/DL White Blood Count 14.4 TH/MM3 Red Blood Count 2.86 MIL/MM3 Hemoglobin 7.9 GM/DL Hematocrit 24.4 % Mean Corpuscular Volume 85.2 FL Mean Corpuscular Hemoglobin 27.7 PG Mean Corpuscular Hemoglobin 32.6 % Concent Red Cell Distribution Width 15.9 % Platelet Count 411 TH/MM3 Mean Platelet Volume 6.5 FL Neutrophils (%) (Auto) 77.9 % Lymphocytes (%) (Auto) 13.8 % Monocytes (%) (Auto) 6.0 % Eosinophils (%) (Auto) 1.5 % Basophils (%) (Auto) 0.8 % Neutrophils # (Auto) 11.2 TH/MM3 Lymphocytes # (Auto) 2.0 TH/MM3 Monocytes # (Auto) 0.9 TH/MM3 Eosinophils # (Auto) 0.2 TH/MM3 Basophils # (Auto) 0.1 TH/MM3 CBC Comment DIFF FINAL Differential Comment Sodium Level 138 MEQ/L Potassium Level 4.5 MEQ/L Chloride Level 101 MEQ/L Carbon Dioxide Level 23.7 MEQ/L Anion Gap 13 MEQ/L Blood Urea Nitrogen 34 MG/DL Creatinine 3.90 MG/DL Estimat Glomerular Filtration 12 ML/MIN Rate Random Glucose 82 MG/DL Calcium Level 7.4 MG/DL Protein Corrected Calcium 8.6 MG/DL Phosphorus Level 2.6 MG/DL Total Protein 5.0 GM/DL Parathyroid Hormone (Intact) LESS THAN 2.5 PG/ML Objective Remarks GENERAL: Morbidly obese female patient in no acute distress. SKIN: Warm and dry. The patient has multiple stitches in place covering left, middle and right lower quadrants, with erythema and left drainage in place draining. HEAD: Normocephalic and atraumatic. EYES: No injection, drainage, or hyphema noted. PERRLA. EOMI. ENT: No nasal drainage noted. Oropharynx is clear. NECK: Supple and the trachea is midline. CARDIOVASCULAR: Regular rate and rhythm. RESPIRATORY: Breath sounds are equal bilaterally with no accessory muscle use, wheezing, rhonchi, or crackles. GASTROINTESTINAL: Abdomen is soft, non-tender, and nondistended. MUSCULOSKELETAL: No obvious deformities, swelling, cyanosis, or ecchymosis is present throughout the upper and lower extremities. NEUROLOGICAL: Awake, alert, and oriented. Normal speech and gait. Cranial nerves are grossly intact. Medications and IVs Current Medications Medications (Trade) Dose Ordered Sig/Soren Route Start Time Stop Time Status Last Admin (Xanax) 0.125 mg Q6H PRN PO 07/09/16 13:15 07/10/16 01:12 (Lipitor) 80 mg HS PO 07/09/16 21:00 07/10/16 21:39 (Rocaltrol) 0.5 mcg DAILY PO 07/10/16 09:00 07/11/16 10:27 (Sensipar) 30 mg DAILY PO 07/10/16 09:00 07/11/16 10:27 (PROzac) 30 mg DAILY PO 07/10/16 09:00 07/11/16 10:26 (Neurontin) 100 mg BID PO 07/09/16 21:00 07/11/16 10:27 (Synthroid) 300 mcg DAILY@06 PO 07/10/16 06:00 07/11/16 04:47 (Antivert) 25 mg TID PRN PO 07/09/16 13:15 (Dolophine) 5 mg Q8HR PO 07/09/16 14:00 07/10/16 06:06 (Renvela) 1,600 mg TID PO 07/09/16 18:00 07/11/16 10:26 (Ecotrin Ec) 81 mg DAILY PO 07/10/16 09:00 07/11/16 10:27 (NS Flush) 2 ml UNSCH PRN IV FLUSH 07/09/16 13:15 (NS Flush) 2 ml BID IV FLUSH 07/09/16 21:00 07/11/16 10:28 (Tylenol) 650 mg Q4H PRN PO 07/09/16 13:15 (Zofran Inj) 4 mg Q6H PRN IVP 07/09/16 13:15 (Dulcolax Supp) 10 mg DAILY PRN RECTAL 07/09/16 13:15 (Heparin Inj) 5,000 units Q12H SQ 07/09/16 13:15 07/11/16 02:29 (Narcan Inj) 0.4 mg UNSCH PRN IV 07/09/16 13:15 (Betadine 10% Top Soln) 1 applic BID TOPICAL 07/09/16 21:00 07/10/16 21:00 Acetaminophen/ Hydrocodone Bitart 1 tab 1 tab Q4H PRN PO 07/09/16 15:00 07/11/16 10:25 (NS 1000 ml Inj) 1,000 ml @ 0 mls/hr Q0M PRN IV 07/09/16 15:17 07/09/16 16:09 Heparin Sodium (Porcine) 8000 units 8,000 units UNSCH PRN IVF 07/09/16 15:30 Sodium Chloride 1,000 ml @ 200 mls/hr Q5H PRN IV 07/09/16 15:17 (NS 1000 ml Inj) 1,000 ml @ 0 mls/hr Q0M PRN IV 07/09/16 15:17 (Mannitol Inj) 12.5 gm UNSCH PRN IV 07/09/16 15:30 (Albumin 25% Inj) 25 gm UNSCH PRN IV 07/09/16 15:30 07/09/16 16:11 (NS Flush) 5 ml UNSCH PRN IV FLUSH 07/09/16 15:30 (Heparin Inj) UNSCH PRN .XX 07/09/16 15:30 07/09/16 16:10 (Gentamicin (Dialysis) Inj) 20 mg UNSCH PRN IV 07/09/16 15:30 07/09/16 16:10 (Zofran Inj) 4 mg UNSCH PRN IV 07/09/16 15:30 (Tylenol) 650 mg UNSCH PRN PO 07/09/16 15:30 (Benadryl) 25 mg UNSCH PRN PO 07/09/16 15:30 (Nitrostat Sl) 0.4 mg UNSCH PRN SL 07/09/16 15:30 (Catapres) 0.1 mg UNSCH PRN PO 07/09/16 15:30 (Epogen Inj) 10,000 units UNSCH PRN IV 07/09/16 15:30 07/09/16 16:10 (Gelfoam 12 Mm/7 Mm Top) 1 foam UNSCH PRN TOP 07/09/16 15:30 (Levemir Inj) 13 units HS SQ 07/10/16 21:00 07/10/16 21:49 (Levemir Inj) 20 units DAILY SQ 07/10/16 09:00 07/11/16 10:28 A/P Assessment and Plan 1. Wound dehiscence surgical, three of four drains are removed, the left lateral drain is left in place, ordered Betadine wet to dry dressing, to continue Zosyn, following wound cultures. Pressure ulcer of coccygeal region, thinking in I and D and Vacuum placement. due to new wound care positive for Pseudomonas Aeruginosa sensitive to Gentamicin, Imipenem and Tobramycin, and for Enterococcus Faecalis sensitive to Daptomycin and Linezolid elected for Daptomycin and Gentamicin, consult ID specialist. 2. Morbid Obesity strongly recommended diet and exercise, weight loss warranted. 3. Hypertension controlled will continue home medicines 4. DM II continue sliding scale. 5. Hyperlipidemia continue home medicines 6. ESRD on Hemodialysis and Friday. 7. chronic low back pain and chronic pain syndrome continue pain medicine. DVT prophylaxis with Heparin every 12 hours. Start Gentamicin Gentamicin Pharmacy consult Daptomycin IV ID specialist consult Started on Nepro Discontinued Dilaudid yesterday PT and OT consulted yesterday Consulted Dietitian yesterday. Code Status Full Code. Discussed Condition With Patient, her son and nurse Miss Nair in the room. Code Status Full Code. Discharge Planning Not yet cleared for discharge. Ken Franks MD July 11, 2016 12:53
[2016-07-11] MEDS ORDERED: ASP: Documented ESBL, MDR A baumannii or P. aeruginosa PRN (14:30)
[2016-07-11] MEDS ORDERED: MISCELLANEOUS PHARMACY INFORMATION XX PRN (14:30)
[2016-07-11] MEDS: POVIDONE IODINE 10% SOLN 118 ML BOTTLE TOPICAL SCH ×2 (14:30→21:00)
--- NOTE | 2016-07-11 14:50 | PD.CONS ---
History of Present Illness Service Infectious disease Consult Requested By Dr. Maria Reason for Consult Evaluate patient with positive wound culture, has Pseudomonas and VRE Primary Care Physician Aline Velarde MD Diagnoses: History of Present Illness Patient seen and examined. Records reviewed. Patient is a 55-year-old morbidly obese female, [facility] of her multiple complaints of pain. Patient had a recent hospitalization from May 14 to July 03, and at that time she had a large abdominal wound in her abdominal pannus with cellulitis. During that hospitalization she underwent multiple surgery with excision of the large open wound, debridement. There were several wound cultures done 1 on admission, and another one from her original excisional surgery and it had pseudomonas aeruginosa. Patient received IV antibiotics from May 14 2 June 07. He had more debridement on May 26, and on June 28 the patient had wide excision of the necrotic lower or abdominal pannus, panniculectomy, and partial closure of the wound. She apparently had [address], and she was [facility]. On presentation here patient was found to have an area of abdominal wound dehiscence on the right side. All the drains have been removed 3 from yesterday , and one removed today. There was some purulence from the abdominal wound dehiscence, and the culture is now reported as growing pseudomonas aeruginosa and VRE. As not been febrile. Her white count has been elevated. Patient is complaining of pain in multiple areas but mostly in her low back. Wound care team has been following the patient. Infectious disease consultation requested to make recommendation regarding her antibiotic. Review of Systems Constitutional: DENIES: Fever, Chills Eyes: DENIES: Eye pain Ears, nose, mouth, throat: DENIES: Nasal discharge, Oral lesions, Throat pain, Ear Pain, Sinus Pain Respiratory: DENIES: Cough, Shortness of breath Cardiovascular: DENIES: Chest pain, Palpitations Gastrointestinal: COMPLAINS OF: Abdominal pain, DENIES: Nausea, Vomiting, Difficulty Swallowing Integumentary: DENIES: Rash Psychiatric: DENIES: Confusion, Hallucinations Past Family Social History Allergies: Coded Allergies: Biaxin (Verified Allergy, Severe, swelling of face, 05/10/16) Iron (Verified Adverse Reaction, Severe, Constipation, 05/10/16) Morphine (Verified Adverse Reaction, Severe, 06/11/16) renal insufficiency. Past Medical History Morbid obesity Osteoarthritis Hyperlipidemia explained CHF Diabetes Hypertension CAD ESRD on hemodialysis Friday and Friday Spinal stenosis Hypothyroidism Sleep apnea Problems with necrotic abdominal wounds Multiple decubitus ulcers Past Surgical History LAP-BAND 2004 Lap cholecystectomy 1996 Previous stent placement for her CAD Placement of a permacath section 1 AV fistula in the left upper extremity Multiple excisional debridement of her large abdominal wounds during her last admission The last surgical procedure included a panniculectomy and partial closure of her large abdominal wound done June 28, 2016 Active Ordered Medications Antibiotics include IV gentamicin, and Cubicin The rest of the medications reviewed Social History No smoking No alcohol abuse No illicit drug Physical Exam Vital Signs Vital Signs Date Time Temp Pulse Resp B/P Pulse Ox O2 Delivery O2 Flow Rate FiO2 07/11/16 11:25 18 07/11/16 08:00 97.8 75 16 137/62 97 07/11/16 04:00 Room Air 07/11/16 04:00 98.0 72 14 133/60 96 07/11/16 00:00 97.7 68 16 126/56 99 07/11/16 00:00 Room Air 07/10/16 21:19 21 07/10/16 20:00 Room Air 07/10/16 20:00 72 07/10/16 20:00 97.5 78 18 109/49 97 07/10/16 16:00 97.9 76 20 125/49 100 Physical Exam GENERAL: This is a morbidly obese, well-developed female, awake and alert, in no apparent distress. SKIN: Cool and dry. No generalized rash. HEAD: Atraumatic. Normocephalic. No temporal or scalp tenderness. EYES: Conjunctivae. Pupils equal round and reactive. Extraocular motions intact. No scleral icterus. No injection or drainage. ENT: Nose without bleeding, or purulent drainage. Moist oral mucosa. No oral thrush. Throat without erythema, or exudate. Uvula midline. Airway patent. NECK: Trachea midline. No JVD or lymphadenopathy. Supple, nontender, no meningeal signs. Permacath is tunneled in the right IJ, site looks okay CARDIOVASCULAR: Regular rate and rhythm without murmurs, gallops, or rubs. Soft heart sounds. RESPIRATORY: Clear to auscultation. Breath sounds equal bilaterally. No wheezes , rales, or rhonchi. Decreased breath sounds at the bases. GASTROINTESTINAL: Abdomen soft, ,non-tender, nondistended, bowel sounds are present and normoactive. Limited exam due to the size. No guarding. There is a very long horizontal incision in low abdomen with sutures and nba in place , with some areas of yellow green slough on L side. On R side there is wound dehiscence that is about 5-6 inches long with yellow green drainage and she has surrounding area of erythema and induration. No odor MUSCULOSKELETAL: Extremities without clubbing, cyanosis, or edema. No joint tenderness, effusion, or edema noted. No calf tenderness. Negative Homans sign bilaterally. NEUROLOGICAL: Awake and alert. Cranial nerves II through XII intact. Five out of 5 muscle strength in all muscle groups. Normal speech. PSYCH: Normal affect, calm and cooperative LINE: No evidence of infection Laboratory Date/Time Procedure Status Source Growth 07/09/16 21:03 Aerobic Blood Culture - Preliminary Resulted Blood Peripheral NO GROWTH IN 2 DAYS 07/09/16 21:03 Anaerobic Blood Culture - Preliminary Resulted Blood Peripheral NO GROWTH IN 2 DAYS 07/09/16 13:05 Gram Stain - Final Resulted Wound Abdomen 07/09/16 13:05 Wound Culture - Preliminary Resulted Pseudomonas Aeruginosa Enterococcus Faecium Vre Result Diagram: 07/10/1635 07/10/16 0635 Assessment and Plan Assessment and Plan IMPRESSION Wound dehiscence with local wound infection, cellulitis S/P wide excision large abdominal wound and panniculectomy - C/S PSAE and VRE Morbid obesity ESRD on HD RECOMMENDATION Wound care team following Imipenem, Viet Spoke with [facility], they are running susceptibility testing on Zerbaxa and Avycaz Follow CBC Monitor progress Thank you for consultation Discussed Condition With Explained plan to patient and son D/W RN Dr Peter Bernal available if needed 07/12-07/14 Shea Zavala MD July 11, 2016 14:50
[2016-07-11] MEDS ORDERED: IMIPENEM/CILASTATIN INJ 250 MG in SODIUM CHLORIDE 0.9% INJ 100 ML IV SCH (16:00)
[2016-07-11] MEDS: ALPRAZolam 0.25 MG TAB PO PRN (16:08)
[2016-07-11] MEDS ORDERED: GENTAMICIN INJ 240 MG in SODIUM CHLORIDE 0.9% INJ 100 ML IV ONE (18:00)
[2016-07-11] MEDS: ATORVASTATIN 80 MG TAB PO SCH (23:22)
[2016-07-12] VITALS (8 sets, daily range): BP systolic 114–134; BP diastolic 53–61; PULSE 75–84; RESP 18–20; TEMP 97.9–98.5; O2SAT 93–100
[2016-07-12] MEDS: HEPARIN SODIUM - SQ 10,000 UNITS/ML VIAL SQ SCH ×2 (02:21→14:14)
[2016-07-12] MEDS: IMIPENEM/CILASTATIN INJ 250 MG in SODIUM CHLORIDE 0.9% INJ 100 ML IV SCH ×2 (04:23→17:34)
[2016-07-12] MEDS: ACETAMINOPHEN/HYDROcodone 325 MG/10 MG TAB PO PRN ×4 (04:23→22:14)
[2016-07-12] MEDS: METHADONE HCL 10 MG TAB PO SCH ×3 (05:13→21:08)
[2016-07-12] MEDS: LEVOTHYROXINE SODIUM 150 MCG TAB PO SCH (05:14)
[2016-07-12] MEDS: INSULIN NovoLIN REGULAR SUPPLEMENTAL SCALE SQ SCH ×4 (05:14→21:00)
--- NOTE | 2016-07-12 08:41 | HHI.PR ---
Subjective Remarks This is a pleasant 55 y/ female with nonhealing abdominal wound, Just Discharged from this facility some days ago. came for readmission. as we know and taking the Discharge Summary. Large necrotic wound located in the abdominal pannus area with cellulitis -Initially general surgeon was consulted but deferred this to plastic surgeon due to the severity of the wound. -So plastic surgeon was consulted in which Dr. Johnson did an excision large open wound 25 x 15 cm right side lower abdominal pannus on 05/22. -Patient continued to have necrotic tissue so another Excisional debridement of New necrotic area Right side of the abdomen 10x5 cm was done on 05/24. -Patient had another excisional debridement of right lower abdomen, 25 x 15 cm deep wound and right lateral abdomen, 10 x 5 cm superficial wound on 05/27. -On 06/28 patient had Wide excision of necrotic lower abdominal pannus with panniculectomy and partial closure. -per Plastics will allow patient OOB as soon as she can and change dressing with betadine soaked 4x4 directly on the skin daily. -watch for any further necrotic spots showing up. Keep sutures / nba for approx 2 weeks unless they get inflamed. Drains probably 2-3 weeks as well. -Dealt with Dr. Johnson over the phone in regards to discharge to SNF and he agreed to the discharge. -Dr. Meyers requested prophylaxis antibiotics ? so patient put on doxycycline. -During the treatment of patient's wound she was put on antibiotics. ID consulted and was managing. Treated empirically with vancomycin and Zosyn. Later she was switched to cefepime. Patient completed her antibiotic course during hospitalization and cellulitis resolved during sedation. She has Morbid Obesity, Hypertension, DM II Hemoglobin A1C 6.8, Hyperlipidemia, ESRD on HD Friday, and Friday, Chronic low back pain, Anemia of chronic disease, Patient declined GI recommendations for EGD and Colonoscopy, Coccygeal stress ulcer discharged to SNF. on this opportunity came from [facility], with Pain around the surgical wound of her abdomen and chronic wound of the buttocks, has dehiscence of the abdominal wound and copious drainage, as per aviation technical systems specialist recommended Zosyn and he will come and evaluate the Patient. 07/10: asked for Dietitian, seen by Plastic Surgery Wound dehiscence surgical, three of four drains are removed, the left lateral drain is left in place, ordered Betadine wet to dry dressing, to continue Zosyn, following wound cultures. Pressure ulcer of coccygeal region. 07/11: Wound cultures positive for Pseudomonas Aeruginosa sensitive to Gentamicin , Imipenem and Tobramycin and also for Enterococcus Faecalis VRE sensitive to Daptomycin and Linezolid. the wounds should be washed with Hibiclens and thoroughly irrigated in the shower. 07/12: Stable in her bedroom, no nausea, vomit or diarrhea, antibiotics handled by ID specialist, no complaint at this time seen with nurse in the room. Objective Vital Signs Date Time Temp Pulse Resp B/P Pulse Ox O2 Delivery O2 Flow Rate FiO2 07/12/16 08:00 97.9 77 20 114/54 98 07/12/16 04:40 98.0 76 18 127/57 93 07/12/16 04:40 Room Air 07/12/16 00:00 98.1 77 19 128/57 98 07/12/16 00:00 Room Air 07/11/16 20:00 98.2 71 17 185/65 100 07/11/16 20:00 71 07/11/16 20:00 Room Air 07/11/16 16:08 18 07/11/16 16:08 18 07/11/16 16:00 98.2 74 16 144/56 100 07/11/16 12:00 98.0 73 16 140/64 99 07/11/16 11:16 99 I/O 07/11/16 07/11/16 07/11/16 07/12/16 07/12/16 07/12/16 07:00 15:00 23:00 07:00 15:00 23:00 Intake Total 100 ml 360 ml 480 ml 100 ml Output Total 0 ml Balance 100 ml 360 ml 480 ml 100 ml Intake Oral 0 ml 360 ml 480 ml IV Total 100 ml 100 ml Output Urine Total 0 ml # Voids 1 0 # Bowel Movements 1 0 0 Result Diagram: 07/10/16 0635 07/10/16 06 Imaging No new Imaging studies. Procedures No procedures performed. Other Results Laboratory Tests Test 07/09/16 07/09/16 07/10/16 07/10/16 11:33 11:45 06:35 11:28 Erythrocyte Sedimentation Rate GREATER THAN 140 mm/hr Prothrombin Time 14.4 SEC Prothromb Time International 1.3 RATIO Ratio Activated Partial 37.4 SEC Thromboplast Time Total Bilirubin 0.4 MG/DL Aspartate Amino Transf 15 U/L (AST/SGOT) Alanine Aminotransferase 8 U/L (ALT/SGPT) Alkaline Phosphatase 183 U/L C-Reactive Protein 23.00 MG/DL Albumin 1.4 GM/DL White Blood Count 14.4 TH/MM3 Red Blood Count 2.86 MIL/MM3 Hemoglobin 7.9 GM/DL Hematocrit 24.4 % Mean Corpuscular Volume 85.2 FL Mean Corpuscular Hemoglobin 27.7 PG Mean Corpuscular Hemoglobin 32.6 % Concent Red Cell Distribution Width 15.9 % Platelet Count 411 TH/MM3 Mean Platelet Volume 6.5 FL Neutrophils (%) (Auto) 77.9 % Lymphocytes (%) (Auto) 13.8 % Monocytes (%) (Auto) 6.0 % Eosinophils (%) (Auto) 1.5 % Basophils (%) (Auto) 0.8 % Neutrophils # (Auto) 11.2 TH/MM3 Lymphocytes # (Auto) 2.0 TH/MM3 Monocytes # (Auto) 0.9 TH/MM3 Eosinophils # (Auto) 0.2 TH/MM3 Basophils # (Auto) 0.1 TH/MM3 CBC Comment DIFF FINAL Differential Comment Sodium Level 138 MEQ/L Potassium Level 4.5 MEQ/L Chloride Level 101 MEQ/L Carbon Dioxide Level 23.7 MEQ/L Anion Gap 13 MEQ/L Blood Urea Nitrogen 34 MG/DL Creatinine 3.90 MG/DL Estimat Glomerular Filtration 12 ML/MIN Rate Random Glucose 82 MG/DL Calcium Level 7.4 MG/DL Protein Corrected Calcium 8.6 MG/DL Phosphorus Level 2.6 MG/DL Total Protein 5.0 GM/DL Parathyroid Hormone (Intact) LESS THAN 2.5 PG/ML Objective Remarks GENERAL: Morbidly obese female patient in no acute distress. SKIN: Warm and dry. The patient has multiple stitches in place covering left, middle and right lower quadrants, with erythema and left drainage in place draining. HEAD: Normocephalic and atraumatic. EYES: No injection, drainage, or hyphema noted. PERRLA. EOMI. ENT: No nasal drainage noted. Oropharynx is clear. NECK: Supple and the trachea is midline. CARDIOVASCULAR: Regular rate and rhythm. RESPIRATORY: Breath sounds are equal bilaterally with no accessory muscle use, wheezing, rhonchi, or crackles. GASTROINTESTINAL: Abdomen is soft, non-tender, and nondistended. MUSCULOSKELETAL: No obvious deformities, swelling, cyanosis, or ecchymosis is present throughout the upper and lower extremities. NEUROLOGICAL: Awake, alert, and oriented. Normal speech and gait. Cranial nerves are grossly intact. Medications and IVs Current Medications Medications (Trade) Dose Ordered Sig/Soren Route Start Time Stop Time Status Last Admin (Xanax) 0.125 mg Q6H PRN PO 07/09/16 13:15 07/11/16 16:08 (Lipitor) 80 mg HS PO 07/09/16 21:00 07/11/16 23:22 (Rocaltrol) 0.5 mcg DAILY PO 07/10/16 09:00 07/11/16 10:27 (Sensipar) 30 mg DAILY PO 07/10/16 09:00 07/11/16 10:27 (PROzac) 30 mg DAILY PO 07/10/16 09:00 07/11/16 10:26 (Neurontin) 100 mg BID PO 07/09/16 21:00 07/11/16 23:22 (Synthroid) 300 mcg DAILY@06 PO 07/10/16 06:00 07/12/16 05:14 (Antivert) 25 mg TID PRN PO 07/09/16 13:15 (Dolophine) 5 mg Q8HR PO 07/09/16 14:00 07/12/16 05:13 (Renvela) 1,600 mg TID PO 07/09/16 18:00 07/11/16 16:07 (Ecotrin Ec) 81 mg DAILY PO 07/10/16 09:00 07/11/16 10:27 (NS Flush) 2 ml UNSCH PRN IV FLUSH 07/09/16 13:15 (NS Flush) 2 ml BID IV FLUSH 07/09/16 21:00 07/11/16 21:00 (Tylenol) 650 mg Q4H PRN PO 07/09/16 13:15 (Zofran Inj) 4 mg Q6H PRN IVP 07/09/16 13:15 (Dulcolax Supp) 10 mg DAILY PRN RECTAL 07/09/16 13:15 (Heparin Inj) 5,000 units Q12H SQ 07/09/16 13:15 07/12/16 02:21 (Narcan Inj) 0.4 mg UNSCH PRN IV 07/09/16 13:15 (Betadine 10% Top Soln) 1 applic BID TOPICAL 07/09/16 21:00 07/11/16 21:00 Acetaminophen/ Hydrocodone Bitart 1 tab 1 tab Q4H PRN PO 07/09/16 15:00 07/12/16 04:23 (NS 1000 ml Inj) 1,000 ml @ 0 mls/hr Q0M PRN IV 07/09/16 15:17 07/09/16 16:09 Heparin Sodium (Porcine) 8000 units 8,000 units UNSCH PRN IVF 07/09/16 15:30 Sodium Chloride 1,000 ml @ 200 mls/hr Q5H PRN IV 07/09/16 15:17 (NS 1000 ml Inj) 1,000 ml @ 0 mls/hr Q0M PRN IV 07/09/16 15:17 (Mannitol Inj) 12.5 gm UNSCH PRN IV 07/09/16 15:30 (Albumin 25% Inj) 25 gm UNSCH PRN IV 07/09/16 15:30 07/09/16 16:11 (NS Flush) 5 ml UNSCH PRN IV FLUSH 07/09/16 15:30 (Heparin Inj) UNSCH PRN .XX 07/09/16 15:30 07/09/16 16:10 (Gentamicin (Dialysis) Inj) 20 mg UNSCH PRN IV 07/09/16 15:30 07/09/16 16:10 (Zofran Inj) 4 mg UNSCH PRN IV 07/09/16 15:30 (Tylenol) 650 mg UNSCH PRN PO 07/09/16 15:30 (Benadryl) 25 mg UNSCH PRN PO 07/09/16 15:30 (Nitrostat Sl) 0.4 mg UNSCH PRN SL 07/09/16 15:30 (Catapres) 0.1 mg UNSCH PRN PO 07/09/16 15:30 (Epogen Inj) 10,000 units UNSCH PRN IV 07/09/16 15:30 07/09/16 16:10 (Gelfoam 12 Mm/7 Mm Top) 1 foam UNSCH PRN TOP 07/09/16 15:30 (Levemir Inj) 13 units HS SQ 07/10/16 21:00 07/10/16 21:49 Insulin Detemir 20 units 20 units DAILY SQ 07/10/16 09:00 07/11/16 10:28 (Primaxin Inj/NS Inj) 100 ml @ 200 mls/hr Q12H IV 07/12/16 04:00 07/12/16 04:23 A/P Assessment and Plan 1. Wound dehiscence surgical, three of four drains are removed, the left lateral drain is left in place, ordered Betadine wet to dry dressing, to continue Zosyn, following wound cultures. Pressure ulcer of coccygeal region, thinking in I and D and Vacuum placement. due to new wound care positive for Pseudomonas Aeruginosa sensitive to Gentamicin, Imipenem and Tobramycin, and for Enterococcus Faecalis sensitive to Daptomycin and Linezolid, seen by ID specialist recommended Daptomycin and Imipenem. 2. Morbid Obesity strongly recommended diet and exercise, weight loss warranted. 3. Hypertension controlled will continue home medicines 4. DM II continue sliding scale. developed Hypoglycemia on hold Levemir. 5. Hyperlipidemia continue home medicines 6. ESRD on Hemodialysis and Friday. 7. chronic low back pain and chronic pain syndrome continue pain medicine. DVT prophylaxis with Heparin every 12 hours. Code Status Full Code. Discussed Condition With Patient, nurse in the room Code Status Full Code. Discharge Planning Not yet cleared for discharge by specialists. Ken Franks MD July 12, 2016 08:41 Code Status Full Code. Discharge Planning Not yet cleared for discharge. Ken Franks MD July 12, 2016 08:41 Ken Franks MD July 12, 2016 08:41
[2016-07-12] MEDS: INSULIN DETEMIR 100 UNITS/ML VIAL SQ SCH ×2 (09:00→10:17)
--- NOTE | 2016-07-12 09:44 | PD.PLAS.PN ---
Subjective Remarks Patient is status post panniculectomy for necrotic wounds on 06/28/16. She returned to the hospital on 07/09/16 for evaluation of surgical wound dehiscence and infection. Currently, the patient states that pain is well controlled today. Objective Vital Signs Date Time Temp Pulse Resp B/P Pulse Ox O2 Delivery O2 Flow Rate FiO2 07/12/16 08:00 97.9 77 20 114/54 98 07/12/16 04:40 98.0 76 18 127/57 93 07/12/16 04:40 Room Air 07/12/16 00:00 98.1 77 19 128/57 98 07/12/16 00:00 Room Air 07/11/16 20:00 98.2 71 17 185/65 100 07/11/16 20:00 71 07/11/16 20:00 Room Air 07/11/16 16:08 18 07/11/16 16:08 18 07/11/16 16:00 98.2 74 16 144/56 100 07/11/16 12:00 98.0 73 16 140/64 99 07/11/16 11:16 99 I/O 07/11/16 07/11/16 07/11/16 07/12/16 07/12/16 07/12/16 07:00 15:00 23:00 07:00 15:00 23:00 Intake Total 100 ml 360 ml 480 ml 100 ml Output Total 0 ml Balance 100 ml 360 ml 480 ml 100 ml Intake Oral 0 ml 360 ml 480 ml IV Total 100 ml 100 ml Output Urine Total 0 ml # Voids 1 0 # Bowel Movements 1 0 0 Date/Time Procedure Status Source Growth 07/09/16 21:03 Aerobic Blood Culture - Preliminary Resulted Blood Peripheral NO GROWTH IN 2 DAYS 07/09/16 21:03 Anaerobic Blood Culture - Preliminary Resulted Blood Peripheral NO GROWTH IN 2 DAYS 07/09/16 13:05 Gram Stain - Final Resulted Wound Abdomen 07/09/16 13:05 Wound Culture - Preliminary Resulted Pseudomonas Aeruginosa Enterococcus Faecium Vre Result Diagram: 07/10/16 0635 07/10/16 0635 Exam Findings The right lateral aspect of the wound is examined. Periwound erythema and tenderness is significantly reduced. Wound drainage and odor are reduced. Soft yellow slough is present in the wound bed. Assessment and Plan Diagnosis: (1) Pressure ulcer of coccygeal region (2) Wound dehiscence, surgical Assessment and Plan The loose nba and sutures are removed from the dehisced area. The patient states that she has not been out of bed yet and that she has not been seen by PT yet. There is an order in for PT evaluation. We reviewed the plan to get her out of bed and into the shower for irrigation of the wounds and washing with hibiclens. In the mean time, we will continue with betadine wet to dry dressings as ordered. Dana Romero July 12, 2016 09:44
[2016-07-12] MEDS: CINACALCET HYDROCHLORIDE 30 MG TAB PO SCH (10:09)
[2016-07-12] MEDS: SEVELAMER CARBONATE 800 MG TAB PO SCH ×3 (10:09→18:00)
[2016-07-12] MEDS: CALCITRIOL 0.25 MCG CAP PO SCH (10:09)
[2016-07-12] MEDS: GABAPENTIN 100 MG CAP PO SCH ×2 (10:10→21:08)
[2016-07-12] MEDS: ASPIRIN EC 81 MG TABEC PO SCH (10:10)
[2016-07-12] MEDS: SODIUM CHLORIDE 0.9% FLUSH 10 ML FLUSH IV FLUSH SCH ×2 (10:11→21:00)
[2016-07-12] MEDS: POVIDONE IODINE 10% SOLN 118 ML BOTTLE TOPICAL SCH ×2 (10:17→21:00)
[2016-07-12] MEDS: FLUoxetine HCL 10 MG CAP PO SCH (12:00)
--- NOTE | 2016-07-12 13:18 | HHI.NPPN ---
Subjective General Problems: Anemia, Edema, Hypertension Renal Failure: End Stage Renal Disease History of Present Illness 55-year-old female with past medical history of hypertension, morbid obesity, history of multiple abdominal wall, diabetes mellitus, ischemic heart disease, hypothyroidism, spinal stenosis and end-stage renal disease on hemodialysis three times per week who came to the hospital because of worsening pain in her wound. Additional Remarks Patient is alert, off and on has abd. pain, no SOB. Review of Systems Respiratory Lungs: SOB, Wheeze Cardiovascular Cardiac: GRIFFIN Gastrointestinal Gastrointestinal: Abdominal Pain Objective Data Data 07/11/16 07/12/16 19:00 07:00 Intake Total 360 ml 580 ml Output Total 0 ml Balance 360 ml 580 ml Intake Oral 360 ml 480 ml IV Total 100 ml Output Urine Total 0 ml # Voids 0 # Bowel Movements 0 0 Vital Signs Date Time Temp Pulse Resp B/P Pulse Ox O2 Delivery O2 Flow Rate FiO2 07/12/16 12:00 98.0 84 18 117/53 100 07/12/16 08:00 97.9 77 20 114/54 98 07/12/16 04:40 98.0 76 18 127/57 93 07/12/16 04:40 Room Air 07/12/16 00:00 98.1 77 19 128/57 98 07/12/16 00:00 Room Air 07/11/16 20:00 98.2 71 17 185/65 100 07/11/16 20:00 71 07/11/16 20:00 Room Air 07/11/16 16:08 18 07/11/16 16:08 18 07/11/16 16:00 98.2 74 16 144/56 100 -: 07/10/16 0635 07/10/16 0635 Physical Exam General Appearance: No Acute Distress, Comfortable Eyes Eye Exam: Pupils Equal Throat Throat Exam: Oral Mucosa Tennyson & Moist Neck Neck Exam: Neck Supple Pulmonary Resp Exam: Breath Sounds Equal, No Distress, Rhonchi, Decreased Bases Cardiology CV Exam: Regular, Normal Sinus Rhythm Gastrointestinal/Abdomen GI Exam: Soft, Bowel Sounds Present, Distended Extremeties Extremities Exam: Moderate Edema, Pitting Edema, Dependent Edema Neurologic Neuro Exam: Alert, Awake, Oriented Psychiatric Psych Exam: Appropriate Responses Assessment/Plan Assessment Summary: Anemia of CKD, Hypertension, End Stage Renal Disease Problem List: (1) Anemia in chronic kidney disease (CKD) (2) Anxiety (3) Open wound of abdomen (4) Infected surgical wound (5) Type II diabetes mellitus with neurological manifestations, uncontrolled (6) End stage kidney disease Plan On HD, TTS. BP is stable. On Zosyn, wound cultures growing Pseudomonas and Enterococcus. On Epogen for anemia. Transfuse as needed. Possible wound debridement. Patient has been refusing for HD, as she has more pain in her wounds when the mattress is deflated. D/W the charge nurse to find out if mattress can remain inflated during transport. Problem Qualifiers (1) Infected surgical wound: Qualified Code: T81.4XXA - Infected surgical wound, initial encounter Valentin Jimenez MD July 12, 2016 13:18
[2016-07-12] MEDS: ALPRAZolam 0.25 MG TAB PO PRN ×2 (16:51→22:44)
[2016-07-12] MEDS: ATORVASTATIN 80 MG TAB PO SCH (21:08)
[2016-07-13] VITALS: BP 160/67; PULSE 76; RESP 22; TEMP 98; O2SAT 96
[2016-07-13 04:00] VITALS: BP 109/49; PULSE 75; RESP 18; TEMP 98.4; O2SAT 96
[2016-07-13] MEDS: HEPARIN SODIUM - SQ 10,000 UNITS/ML VIAL SQ SCH ×2 (04:24→13:43)
[2016-07-13] MEDS: IMIPENEM/CILASTATIN INJ 250 MG in SODIUM CHLORIDE 0.9% INJ 100 ML IV SCH ×2 (04:26→16:43)
[2016-07-13] MEDS: LEVOTHYROXINE SODIUM 150 MCG TAB PO SCH (05:37)
[2016-07-13] MEDS: ACETAMINOPHEN/HYDROcodone 325 MG/10 MG TAB PO PRN ×4 (05:38→23:22)
[2016-07-13] MEDS: INSULIN NovoLIN REGULAR SUPPLEMENTAL SCALE SQ SCH ×4 (05:58→22:27)
[2016-07-13] MEDS: METHADONE HCL 10 MG TAB PO SCH ×3 (06:43→22:22)
[2016-07-13 08:00] VITALS: BP 103/53; PULSE 85; RESP 18; TEMP 98; O2SAT 98
[2016-07-13 08:18] VITALS: PULSE 83
[2016-07-13] MEDS: GABAPENTIN 100 MG CAP PO SCH ×2 (08:33→22:21)
[2016-07-13] MEDS: SODIUM CHLORIDE 0.9% FLUSH 10 ML FLUSH IV FLUSH SCH ×2 (08:33→22:22)
[2016-07-13] MEDS: CALCITRIOL 0.25 MCG CAP PO SCH (08:34)
[2016-07-13] MEDS: CINACALCET HYDROCHLORIDE 30 MG TAB PO SCH (08:34)
[2016-07-13] MEDS: SEVELAMER CARBONATE 800 MG TAB PO SCH ×3 (09:00→18:00)
[2016-07-13] MEDS: FLUoxetine HCL 10 MG CAP PO SCH ×2 (09:00→09:03)
[2016-07-13] MEDS: ASPIRIN EC 81 MG TABEC PO SCH (09:03)
[2016-07-13] MEDS: POVIDONE IODINE 10% SOLN 118 ML BOTTLE TOPICAL SCH ×2 (09:04→21:00)
--- NOTE | 2016-07-13 09:04 | HHI.PR ---
Subjective Remarks This is a pleasant 55 y/ female with nonhealing abdominal wound, Just Discharged from this facility some days ago. came for readmission. as we know and taking the Discharge Summary. Large necrotic wound located in the abdominal pannus area with cellulitis -Initially general surgeon was consulted but deferred this to plastic surgeon due to the severity of the wound. -So plastic surgeon was consulted in which Dr. Johnson did an excision large open wound 25 x 15 cm right side lower abdominal pannus on 05/22. -Patient continued to have necrotic tissue so another Excisional debridement of New necrotic area Right side of the abdomen 10x5 cm was done on 05/24. -Patient had another excisional debridement of right lower abdomen, 25 x 15 cm deep wound and right lateral abdomen, 10 x 5 cm superficial wound on 05/27. -On 06/28 patient had Wide excision of necrotic lower abdominal pannus with panniculectomy and partial closure. -per Plastics will allow patient OOB as soon as she can and change dressing with betadine soaked 4x4 directly on the skin daily. -watch for any further necrotic spots showing up. Keep sutures / nba for approx 2 weeks unless they get inflamed. Drains probably 2-3 weeks as well. -Dealt with Dr. Johnson over the phone in regards to discharge to SNF and he agreed to the discharge. -Dr. Meyers requested prophylaxis antibiotics ? so patient put on doxycycline. -During the treatment of patient's wound she was put on antibiotics. ID consulted and was managing. Treated empirically with vancomycin and Zosyn. Later she was switched to cefepime. Patient completed her antibiotic course during hospitalization and cellulitis resolved during sedation. She has Morbid Obesity, Hypertension, DM II Hemoglobin A1C 6.8, Hyperlipidemia, ESRD on HD Friday, and Friday, Chronic low back pain, Anemia of chronic disease, Patient declined GI recommendations for EGD and Colonoscopy, Coccygeal stress ulcer discharged to SNF. on this opportunity came from [facility], with Pain around the surgical wound of her abdomen and chronic wound of the buttocks, has dehiscence of the abdominal wound and copious drainage, as per waste specialist recommended Zosyn and he will come and evaluate the Patient. 07/10: asked for Dietitian, seen by Plastic Surgery Wound dehiscence surgical, three of four drains are removed, the left lateral drain is left in place, ordered Betadine wet to dry dressing, to continue Zosyn, following wound cultures. Pressure ulcer of coccygeal region. 07/11: Wound cultures positive for Pseudomonas Aeruginosa sensitive to Gentamicin , Imipenem and Tobramycin and also for Enterococcus Faecalis VRE sensitive to Daptomycin and Linezolid. the wounds should be washed with Hibiclens and thoroughly irrigated in the shower. 07/12: No changes 07/13: Seen while in Hemodialysis, stable no complaint, maintain vital sings, no nausea, vomit or diarrhea. Objective Vital Signs Date Time Temp Pulse Resp B/P Pulse Ox O2 Delivery O2 Flow Rate FiO2 07/13/16 04:00 Room Air 07/13/16 04:00 98.4 75 18 109/49 96 07/13/16 00:00 98.0 76 22 160/67 96 07/13/16 00:00 Room Air 07/12/16 22:00 Room Air 21 07/12/16 21:47 98 21 07/12/16 21:16 79 07/12/16 20:00 98.5 75 20 130/61 99 07/12/16 16:00 98.1 76 20 134/60 100 07/12/16 12:00 98.0 84 18 117/53 100 I/O 07/12/16 07/12/16 07/12/16 07/13/16 07/13/16 07/13/16 07:00 15:00 23:00 07:00 15:00 23:00 Intake Total 100 ml 360 ml 480 ml 240 ml Output Total 0 ml Balance 100 ml 360 ml 480 ml 240 ml Intake Oral 360 ml 480 ml 240 ml IV Total 100 ml Output Urine Total 0 ml # Voids 0 # Bowel Movements 2 0 Result Diagram: 07/10/16 0635 07/10/16 0635 Imaging No new image studies performed. Procedures No procedures performed. Other Results Laboratory Tests Test 07/09/16 07/09/16 07/10/16 07/10/16 11:33 11:45 06:35 11:28 Erythrocyte Sedimentation Rate GREATER THAN 140 mm/hr Prothrombin Time 14.4 SEC Prothromb Time International 1.3 RATIO Ratio Activated Partial 37.4 SEC Thromboplast Time Total Bilirubin 0.4 MG/DL Aspartate Amino Transf 15 U/L (AST/SGOT) Alanine Aminotransferase 8 U/L (ALT/SGPT) Alkaline Phosphatase 183 U/L C-Reactive Protein 23.00 MG/DL Albumin 1.4 GM/DL White Blood Count 14.4 TH/MM3 Red Blood Count 2.86 MIL/MM3 Hemoglobin 7.9 GM/DL Hematocrit 24.4 % Mean Corpuscular Volume 85.2 FL Mean Corpuscular Hemoglobin 27.7 PG Mean Corpuscular Hemoglobin 32.6 % Concent Red Cell Distribution Width 15.9 % Platelet Count 411 TH/MM3 Mean Platelet Volume 6.5 FL Neutrophils (%) (Auto) 77.9 % Lymphocytes (%) (Auto) 13.8 % Monocytes (%) (Auto) 6.0 % Eosinophils (%) (Auto) 1.5 % Basophils (%) (Auto) 0.8 % Neutrophils # (Auto) 11.2 TH/MM3 Lymphocytes # (Auto) 2.0 TH/MM3 Monocytes # (Auto) 0.9 TH/MM3 Eosinophils # (Auto) 0.2 TH/MM3 Basophils # (Auto) 0.1 TH/MM3 CBC Comment DIFF FINAL Differential Comment Sodium Level 138 MEQ/L Potassium Level 4.5 MEQ/L Chloride Level 101 MEQ/L Carbon Dioxide Level 23.7 MEQ/L Anion Gap 13 MEQ/L Blood Urea Nitrogen 34 MG/DL Creatinine 3.90 MG/DL Estimat Glomerular Filtration 12 ML/MIN Rate Random Glucose 82 MG/DL Calcium Level 7.4 MG/DL Protein Corrected Calcium 8.6 MG/DL Phosphorus Level 2.6 MG/DL Total Protein 5.0 GM/DL Parathyroid Hormone (Intact) LESS THAN 2.5 PG/ML Test 07/12/16 14:37 Total Creatine Kinase 44 U/L Objective Remarks GENERAL: Morbidly obese female patient in no acute distress. SKIN: Warm and dry. The patient has multiple stitches in place covering left, middle and right lower quadrants, with erythema and left drainage in place draining. HEAD: Normocephalic and atraumatic. EYES: No injection, drainage, or hyphema noted. PERRLA. EOMI. ENT: No nasal drainage noted. Oropharynx is clear. NECK: Supple and the trachea is midline. CARDIOVASCULAR: Regular rate and rhythm. RESPIRATORY: Breath sounds are equal bilaterally with no accessory muscle use, wheezing, rhonchi, or crackles. GASTROINTESTINAL: Abdomen is soft, non-tender, and nondistended. MUSCULOSKELETAL: No obvious deformities, swelling, cyanosis, or ecchymosis is present throughout the upper and lower extremities. NEUROLOGICAL: Awake, alert, and oriented. Normal speech and gait. Cranial nerves are grossly intact. Medications and IVs Current Medications Medications (Trade) Dose Ordered Sig/Soren Route Start Time Stop Time Status Last Admin (Xanax) 0.125 mg Q6H PRN PO 07/09/16 13:15 07/12/16 22:44 (Lipitor) 80 mg HS PO 07/09/16 21:00 07/12/16 21:08 (Rocaltrol) 0.5 mcg DAILY PO 07/10/16 09:00 07/13/16 08:34 (Sensipar) 30 mg DAILY PO 07/10/16 09:00 07/13/16 08:34 (PROzac) 30 mg DAILY PO 07/10/16 09:00 07/12/16 12:00 (Neurontin) 100 mg BID PO 07/09/16 21:00 07/13/16 08:33 (Synthroid) 300 mcg DAILY@06 PO 07/10/16 06:00 07/13/16 05:37 (Antivert) 25 mg TID PRN PO 07/09/16 13:15 (Dolophine) 5 mg Q8HR PO 07/09/16 14:00 07/13/16 06:43 (Renvela) 1,600 mg TID PO 07/09/16 18:00 07/12/16 14:14 (Ecotrin Ec) 81 mg DAILY PO 07/10/16 09:00 07/12/16 10:10 (NS Flush) 2 ml UNSCH PRN IV FLUSH 07/09/16 13:15 (NS Flush) 2 ml BID IV FLUSH 07/09/16 21:00 07/13/16 08:33 (Tylenol) 650 mg Q4H PRN PO 07/09/16 13:15 (Zofran Inj) 4 mg Q6H PRN IVP 07/09/16 13:15 (Dulcolax Supp) 10 mg DAILY PRN RECTAL 07/09/16 13:15 (Heparin Inj) 5,000 units Q12H SQ 07/09/16 13:15 07/13/16 04:24 (Narcan Inj) 0.4 mg UNSCH PRN IV 07/09/16 13:15 (Betadine 10% Top Soln) 1 applic BID TOPICAL 07/09/16 21:00 07/12/16 21:00 Acetaminophen/ Hydrocodone Bitart 1 tab 1 tab Q4H PRN PO 07/09/16 15:00 07/13/16 05:38 (NS 1000 ml Inj) 1,000 ml @ 0 mls/hr Q0M PRN IV 07/09/16 15:17 07/09/16 16:09 Heparin Sodium (Porcine) 8000 units 8,000 units UNSCH PRN IVF 07/09/16 15:30 Sodium Chloride 1,000 ml @ 200 mls/hr Q5H PRN IV 07/09/16 15:17 (NS 1000 ml Inj) 1,000 ml @ 0 mls/hr Q0M PRN IV 07/09/16 15:17 (Mannitol Inj) 12.5 gm UNSCH PRN IV 07/09/16 15:30 (Albumin 25% Inj) 25 gm UNSCH PRN IV 07/09/16 15:30 07/09/16 16:11 (NS Flush) 5 ml UNSCH PRN IV FLUSH 07/09/16 15:30 (Heparin Inj) UNSCH PRN .XX 07/09/16 15:30 07/09/16 16:10 (Gentamicin (Dialysis) Inj) 20 mg UNSCH PRN IV 07/09/16 15:30 07/09/16 16:10 (Zofran Inj) 4 mg UNSCH PRN IV 07/09/16 15:30 (Tylenol) 650 mg UNSCH PRN PO 07/09/16 15:30 (Benadryl) 25 mg UNSCH PRN PO 07/09/16 15:30 (Nitrostat Sl) 0.4 mg UNSCH PRN SL 07/09/16 15:30 (Catapres) 0.1 mg UNSCH PRN PO 07/09/16 15:30 (Epogen Inj) 10,000 units UNSCH PRN IV 07/09/16 15:30 07/09/16 16:10 Gelatin 1 foam 1 foam UNSCH PRN TOP 07/09/16 15:30 (Primaxin Inj/NS Inj) 100 ml @ 200 mls/hr Q12H IV 07/12/16 04:00 5/6/17 04:26 A/P Assessment and Plan 1. Wound dehiscence surgical, three of four drains are removed, the left lateral drain is left in place, ordered Betadine wet to dry dressing, to continue Zosyn, following wound cultures. Pressure ulcer of coccygeal region, thinking in I and D and Vacuum placement. due to new wound care positive for Pseudomonas Aeruginosa sensitive to Gentamicin, Imipenem and Tobramycin, and for Enterococcus Faecalis sensitive to Daptomycin and Linezolid, seen by ID specialist recommended Daptomycin and Imipenem. 2. Morbid Obesity strongly recommended diet and exercise, weight loss warranted. 3. Hypertension controlled will continue home medicines 4. DM II continue sliding scale. developed Hypoglycemia on hold Levemir. 5. Hyperlipidemia continue home medicines 6. ESRD on Hemodialysis and Friday. 7. chronic low back pain and chronic pain syndrome continue pain medicine. DVT prophylaxis with Heparin every 12 hours. Code Status Full Code. Discussed Condition With Patient Discharge Planning Not yet cleared for discharge by specialists. Ken Franks MD July 13, 2016 09:04 Not yet cleared for discharge by specialists. Ken Franks MD July 13, 2016 09:04
--- NOTE | 2016-07-13 10:27 | HHI.NPPN ---
Subjective General Problems: Anemia, Edema, Hypertension Renal Failure: End Stage Renal Disease History of Present Illness 55-year-old female with past medical history of hypertension, morbid obesity, history of multiple abdominal wall, diabetes mellitus, ischemic heart disease, hypothyroidism, spinal stenosis and end-stage renal disease on hemodialysis three times per week who came to the hospital because of worsening pain in her wound. Additional Remarks Patient is alert, now on HD, abd. pain is better, with occ. back pain. Review of Systems Respiratory Lungs: SOB, Wheeze Cardiovascular Cardiac: GRIFFIN Gastrointestinal Gastrointestinal: Abdominal Pain Objective Data Data 07/12/16 07/13/16 19:00 07:00 Intake Total 360 ml 720 ml Output Total 0 ml Balance 360 ml 720 ml Intake Oral 360 ml 720 ml Output Urine Total 0 ml # Voids 0 # Bowel Movements 2 0 Vital Signs Date Time Temp Pulse Resp B/P Pulse Ox O2 Delivery O2 Flow Rate FiO2 07/13/16 08:00 Room Air 21 07/13/16 04:00 Room Air 07/13/16 04:00 98.4 75 18 109/49 96 07/13/16 00:00 98.0 76 22 160/67 96 07/13/16 00:00 Room Air 07/12/16 22:00 Room Air 21 07/12/16 21:47 98 21 07/12/16 21:16 79 07/12/16 20:00 98.5 75 20 130/61 99 07/12/16 16:00 98.1 76 20 134/60 100 07/12/16 12:00 98.0 84 18 117/53 100 -: 07/10/16 0635 07/10/16 0635 Physical Exam General Appearance: No Acute Distress, Comfortable Eyes Eye Exam: Pupils Equal Throat Throat Exam: Oral Mucosa [place] & Moist Neck Neck Exam: Neck Supple Pulmonary Resp Exam: Breath Sounds Equal, No Distress, Rhonchi, Decreased Bases Cardiology CV Exam: Regular, Normal Sinus Rhythm Gastrointestinal/Abdomen GI Exam: Soft, Bowel Sounds Present, Distended Extremeties Extremities Exam: Moderate Edema, Pitting Edema, Dependent Edema Neurologic Neuro Exam: Alert, Awake, Oriented Psychiatric Psych Exam: Appropriate Responses Assessment/Plan Assessment Summary: Anemia of CKD, Hypertension, End Stage Renal Disease Problem List: (1) Anemia in chronic kidney disease (CKD) (2) Anxiety (3) Open wound of abdomen (4) Infected surgical wound (5) Type II diabetes mellitus with neurological manifestations, uncontrolled (6) End stage kidney disease Plan On HD, TTS. BP is stable. On Zosyn, wound cultures growing Pseudomonas and Enterococcus. On Epogen for anemia. Transfuse as needed. Possible wound debridement. Now transported with mattress inflated by use of batteries. BP is stable. Remove fluid as tolerated,. Follow Hgb., on Epogen. Problem Qualifiers (1) Infected surgical wound: Qualified Code: T81.4XXA - Infected surgical wound, initial encounter Valentin Jimenez MD July 13, 2016 10:27
[2016-07-13] MEDS: HEPARIN SODIUM - IV 10,000 UNITS/10 ML VIAL PRN (12:30)
[2016-07-13] MEDS: GENTAMICIN SULFATE (DIALYSIS USE ONLY) 20 MG/2 ML VIAL IV PRN (12:30)
[2016-07-13 16:00] VITALS: BP 125/66; PULSE 85; RESP 18; TEMP 98.6; O2SAT 97
[2016-07-13 20:00] VITALS: BP 133/60; PULSE 84; PULSE 91; RESP 20; TEMP 97.7; O2SAT 99
[2016-07-13] MEDS: ATORVASTATIN 80 MG TAB PO SCH (22:21)
[2016-07-14] VITALS (7 sets, daily range): BP systolic 109–156; BP diastolic 53–67; PULSE 72–84; RESP 20; TEMP 97.3–98.5; O2SAT 97–100
[2016-07-14] MEDS: HEPARIN SODIUM - SQ 10,000 UNITS/ML VIAL SQ SCH ×2 (01:15→15:02)
[2016-07-14] MEDS: IMIPENEM/CILASTATIN INJ 250 MG in SODIUM CHLORIDE 0.9% INJ 100 ML IV SCH ×2 (04:08→16:36)
[2016-07-14] MEDS: ACETAMINOPHEN/HYDROcodone 325 MG/10 MG TAB PO PRN ×4 (04:09→21:07)
[2016-07-14] MEDS: LEVOTHYROXINE SODIUM 150 MCG TAB PO SCH (05:29)
[2016-07-14] MEDS: METHADONE HCL 10 MG TAB PO SCH ×3 (05:30→22:04)
[2016-07-14] MEDS: INSULIN NovoLIN REGULAR SUPPLEMENTAL SCALE SQ SCH ×4 (05:33→21:00)
[2016-07-14] MEDS: ONDANSETRON HCL 4 MG/2 ML VIAL IVP PRN (07:03)
[2016-07-14] MEDS: SODIUM CHLORIDE 0.9% FLUSH 10 ML FLUSH IV FLUSH PRN (07:03)
--- NOTE | 2016-07-14 08:18 | HHI.PR ---
Subjective Remarks This is a pleasant 55 y/ female with nonhealing abdominal wound, Just Discharged from this facility some days ago. came for readmission. as we know and taking the Discharge Summary. Large necrotic wound located in the abdominal pannus area with cellulitis -Initially general surgeon was consulted but deferred this to plastic surgeon due to the severity of the wound. -So plastic surgeon was consulted in which Dr. Johnson did an excision large open wound 25 x 15 cm right side lower abdominal pannus on 05/22. -Patient continued to have necrotic tissue so another Excisional debridement of New necrotic area Right side of the abdomen 10x5 cm was done on 05/24. -Patient had another excisional debridement of right lower abdomen, 25 x 15 cm deep wound and right lateral abdomen, 10 x 5 cm superficial wound on 05/27. -On 06/28 patient had Wide excision of necrotic lower abdominal pannus with panniculectomy and partial closure. -per Plastics will allow patient OOB as soon as she can and change dressing with betadine soaked 4x4 directly on the skin daily. -watch for any further necrotic spots showing up. Keep sutures / nba for approx 2 weeks unless they get inflamed. Drains probably 2-3 weeks as well. -Dealt with Dr. Johnson over the phone in regards to discharge to SNF and he agreed to the discharge. -Dr. Meyers requested prophylaxis antibiotics ? so patient put on doxycycline. -During the treatment of patient's wound she was put on antibiotics. ID consulted and was managing. Treated empirically with vancomycin and Zosyn. Later she was switched to cefepime. Patient completed her antibiotic course during hospitalization and cellulitis resolved during sedation. She has Morbid Obesity, Hypertension, DM II Hemoglobin A1C 6.8, Hyperlipidemia, ESRD on HD Friday, and Friday, Chronic low back pain, Anemia of chronic disease, Patient declined GI recommendations for EGD and Colonoscopy, Coccygeal stress ulcer discharged to SNF. on this opportunity came from [facility], with Pain around the surgical wound of her abdomen and chronic wound of the buttocks, has dehiscence of the abdominal wound and copious drainage, as per senior quality methods specialist recommended Zosyn and he will come and evaluate the Patient. 07/10: asked for Dietitian, seen by Plastic Surgery Wound dehiscence surgical, three of four drains are removed, the left lateral drain is left in place, ordered Betadine wet to dry dressing, to continue Zosyn, following wound cultures. Pressure ulcer of coccygeal region. 07/11: Wound cultures positive for Pseudomonas Aeruginosa sensitive to Gentamicin , Imipenem and Tobramycin and also for Enterococcus Faecalis VRE sensitive to Daptomycin and Linezolid. the wounds should be washed with Hibiclens and thoroughly irrigated in the shower. 07/12: No changes 07/13: Seen while in Hemodialysis, stable no complaint. 07/14: Patient Stable, No nausea, vomit or diarrhea, her son present in the room , she states has increased anxiety, but explored for signs of Depression and no Suicidal thoughts. Objective Vital Signs Date Time Temp Pulse Resp B/P Pulse Ox O2 Delivery O2 Flow Rate FiO2 07/14/16 04:00 97.3 75 20 109/53 100 07/14/16 00:00 97.4 77 20 115/56 97 07/14/16 00:00 Room Air 07/13/16 23:20 21 07/13/16 20:00 Room Air 07/13/16 20:00 97.7 84 20 133/60 99 07/13/16 16:00 98.6 85 18 125/66 97 I/O 07/13/16 07/13/16 07/13/16 07/14/16 07/14/16 07/14/16 07:00 15:00 23:00 07:00 15:00 23:00 Intake Total 240 ml 120 ml 480 ml 480 ml Output Total 0 ml 1500 ml Balance 240 ml -1380 ml 480 ml 480 ml Intake Oral 240 ml 120 ml 480 ml 480 ml Output Urine Total 0 ml Hemodialysis 1500 ml # Voids 1 0 0 # Bowel Movements 0 2 1 0 Result Diagram: 07/10/16 0635 07/10/16 0635 Imaging No imaging studies Procedures No procedures performed. Other Results Laboratory Tests Test 07/10/16 07/10/16 07/12/16 06:35 11:28 14:37 White Blood Count 14.4 TH/MM3 Red Blood Count 2.86 MIL/MM3 Hemoglobin 7.9 GM/DL Hematocrit 24.4 % Mean Corpuscular Volume 85.2 FL Mean Corpuscular Hemoglobin 27.7 PG Mean Corpuscular Hemoglobin 32.6 % Concent Red Cell Distribution Width 15.9 % Platelet Count 411 TH/MM3 Mean Platelet Volume 6.5 FL Neutrophils (%) (Auto) 77.9 % Lymphocytes (%) (Auto) 13.8 % Monocytes (%) (Auto) 6.0 % Eosinophils (%) (Auto) 1.5 % Basophils (%) (Auto) 0.8 % Neutrophils # (Auto) 11.2 TH/MM3 Lymphocytes # (Auto) 2.0 TH/MM3 Monocytes # (Auto) 0.9 TH/MM3 Eosinophils # (Auto) 0.2 TH/MM3 Basophils # (Auto) 0.1 TH/MM3 CBC Comment DIFF FINAL Differential Comment Sodium Level 138 MEQ/L Potassium Level 4.5 MEQ/L Chloride Level 101 MEQ/L Carbon Dioxide Level 23.7 MEQ/L Anion Gap 13 MEQ/L Blood Urea Nitrogen 34 MG/DL Creatinine 3.90 MG/DL Estimat Glomerular Filtration 12 ML/MIN Rate Random Glucose 82 MG/DL Calcium Level 7.4 MG/DL Protein Corrected Calcium 8.6 MG/DL Phosphorus Level 2.6 MG/DL Total Protein 5.0 GM/DL Parathyroid Hormone (Intact) LESS THAN 2.5 PG/ML Total Creatine Kinase 44 U/L Objective Remarks GENERAL: Morbidly obese female patient in no acute distress. SKIN: Warm and dry. The patient has multiple stitches in place covering left, middle and right lower quadrants, with erythema and left drainage in place draining. HEAD: Normocephalic and atraumatic. EYES: No injection, drainage, or hyphema noted. PERRLA. EOMI. ENT: No nasal drainage noted. Oropharynx is clear. NECK: Supple and the trachea is midline. CARDIOVASCULAR: Regular rate and rhythm. RESPIRATORY: Breath sounds are equal bilaterally with no accessory muscle use, wheezing, rhonchi, or crackles. GASTROINTESTINAL: Abdomen is soft, non-tender, and nondistended. MUSCULOSKELETAL: No obvious deformities, swelling, cyanosis, or ecchymosis is present throughout the upper and lower extremities. NEUROLOGICAL: Awake, alert, and oriented. Normal speech and gait. Cranial nerves are grossly intact. Medications and IVs Current Medications Medications (Trade) Dose Ordered Sig/Soren Route Start Time Stop Time Status Last Admin (Xanax) 0.125 mg Q6H PRN PO 07/09/16 13:15 07/12/16 22:44 (Lipitor) 80 mg HS PO 07/09/16 21:00 07/13/16 22:21 (Rocaltrol) 0.5 mcg DAILY PO 07/10/16 09:00 07/13/16 08:34 (Sensipar) 30 mg DAILY PO 07/10/16 09:00 07/13/16 08:34 (PROzac) 30 mg DAILY PO 07/10/16 09:00 07/12/16 12:00 (Neurontin) 100 mg BID PO 07/09/16 21:00 07/13/16 22:21 (Synthroid) 300 mcg DAILY@06 PO 07/10/16 06:00 07/14/16 05:29 (Antivert) 25 mg TID PRN PO 07/09/16 13:15 (Dolophine) 5 mg Q8HR PO 07/09/16 14:00 07/14/16 05:30 (Renvela) 1,600 mg TID PO 07/09/16 18:00 07/13/16 14:35 (Ecotrin Ec) 81 mg DAILY PO 07/10/16 09:00 07/13/16 09:03 (NS Flush) 2 ml UNSCH PRN IV FLUSH 07/09/16 13:15 07/14/16 07:03 (NS Flush) 2 ml BID IV FLUSH 07/09/16 21:00 07/13/16 22:22 (Tylenol) 650 mg Q4H PRN PO 07/09/16 13:15 (Zofran Inj) 4 mg Q6H PRN IVP 07/09/16 13:15 07/14/16 07:03 (Dulcolax Supp) 10 mg DAILY PRN RECTAL 07/09/16 13:15 (Heparin Inj) 5,000 units Q12H SQ 07/09/16 13:15 07/14/16 01:15 (Narcan Inj) 0.4 mg UNSCH PRN IV 07/09/16 13:15 (Betadine 10% Top Soln) 1 applic BID TOPICAL 07/09/16 21:00 07/13/16 21:00 Acetaminophen/ Hydrocodone Bitart 1 tab 1 tab Q4H PRN PO 07/09/16 15:00 07/14/16 04:09 (NS 1000 ml Inj) 1,000 ml @ 0 mls/hr Q0M PRN IV 07/09/16 15:17 07/09/16 16:09 Heparin Sodium (Porcine) 8000 units 8,000 units UNSCH PRN IVF 07/09/16 15:30 Sodium Chloride 1,000 ml @ 200 mls/hr Q5H PRN IV 07/09/16 15:17 (NS 1000 ml Inj) 1,000 ml @ 0 mls/hr Q0M PRN IV 07/09/16 15:17 (Mannitol Inj) 12.5 gm UNSCH PRN IV 07/09/16 15:30 (Albumin 25% Inj) 25 gm UNSCH PRN IV 07/09/16 15:30 07/09/16 16:11 (NS Flush) 5 ml UNSCH PRN IV FLUSH 07/09/16 15:30 (Heparin Inj) UNSCH PRN .XX 07/09/16 15:30 07/13/16 12:30 (Gentamicin (Dialysis) Inj) 20 mg UNSCH PRN IV 07/09/16 15:30 07/13/16 12:30 (Zofran Inj) 4 mg UNSCH PRN IV 07/09/16 15:30 (Tylenol) 650 mg UNSCH PRN PO 07/09/16 15:30 (Benadryl) 25 mg UNSCH PRN PO 07/09/16 15:30 (Nitrostat Sl) 0.4 mg UNSCH PRN SL 07/09/16 15:30 (Catapres) 0.1 mg UNSCH PRN PO 07/09/16 15:30 (Epogen Inj) 10,000 units UNSCH PRN IV 07/09/16 15:30 07/09/16 16:10 Gelatin 1 foam 1 foam UNSCH PRN TOP 07/09/16 15:30 (Primaxin Inj/NS Inj) 100 ml @ 200 mls/hr Q12H IV 07/12/16 04:00 07/14/16 04:08 A/P Assessment and Plan 1. Wound dehiscence surgical, three of four drains are removed, the left lateral drain is left in place, ordered Betadine wet to dry dressing, to continue Zosyn, following wound cultures. Pressure ulcer of coccygeal region, thinking in I and D and Vacuum placement. due to new wound care positive for Pseudomonas Aeruginosa sensitive to Gentamicin, Imipenem and Tobramycin, and for Enterococcus Faecalis sensitive to Daptomycin and Linezolid, seen by ID specialist recommended Daptomycin and Imipenem. 2. Morbid Obesity strongly recommended diet and exercise, weight loss warranted. 3. Hypertension controlled will continue home medicines 4. DM II continue sliding scale. developed Hypoglycemia on hold Levemir. 5. Hyperlipidemia continue home medicines 6. ESRD on Hemodialysis and Friday. 7. chronic low back pain and chronic pain syndrome continue pain medicine. 8. anxiety disorder on Alprazolam. brief support given. DVT prophylaxis with Heparin every 12 hours. Code Status Full Code. Discussed Condition With Patient and her Son in the room, Discharge Planning Not yet cleared for discharge by specialists. Ken Franks MD July 14, 2016 08:18
[2016-07-14] MEDS: FLUoxetine HCL 10 MG CAP PO SCH (08:25)
[2016-07-14] MEDS: CINACALCET HYDROCHLORIDE 30 MG TAB PO SCH (08:25)
[2016-07-14] MEDS: SEVELAMER CARBONATE 800 MG TAB PO SCH ×2 (08:25→13:00)
[2016-07-14] MEDS: CALCITRIOL 0.25 MCG CAP PO SCH (08:25)
[2016-07-14] MEDS: GABAPENTIN 100 MG CAP PO SCH ×2 (08:25→21:07)
[2016-07-14] MEDS: ASPIRIN EC 81 MG TABEC PO SCH (08:25)
[2016-07-14] MEDS: POVIDONE IODINE 10% SOLN 118 ML BOTTLE TOPICAL SCH (09:00)
--- NOTE | 2016-07-14 09:58 | HHI.NPPN ---
Subjective General Problems: Anemia, Edema, Hypertension Renal Failure: End Stage Renal Disease History of Present Illness 55-year-old female with past medical history of hypertension, morbid obesity, history of multiple abdominal wall, diabetes mellitus, ischemic heart disease, hypothyroidism, spinal stenosis and end-stage renal disease on hemodialysis three times per week who came to the hospital because of worsening pain in her wound. Additional Remarks Patient is alert, has loose BM, no vomiting. Review of Systems Respiratory Lungs: SOB, Wheeze Cardiovascular Cardiac: GRIFFIN Gastrointestinal Gastrointestinal: Abdominal Pain Objective Data Data 07/13/16 07/14/16 19:00 07:00 Intake Total 120 ml 1060 ml Output Total 1500 ml 1 ml Balance -1380 ml 1059 ml Intake Oral 120 ml 960 ml IV Total 100 ml Output Urine Total 1 ml Hemodialysis 1500 ml # Voids 1 0 # Bowel Movements 2 4 Vital Signs Date Time Temp Pulse Resp B/P Pulse Ox O2 Delivery O2 Flow Rate FiO2 07/14/16 04:00 97.3 75 20 109/53 100 07/14/16 04:00 Room Air 07/14/16 00:00 97.4 77 20 115/56 97 07/14/16 00:00 Room Air 07/13/16 23:20 21 07/13/16 20:00 91 07/13/16 20:00 Room Air 07/13/16 20:00 97.7 84 20 133/60 99 07/13/16 16:00 98.6 85 18 125/66 97 -: 07/10/16 0635 07/10/16 0635 Physical Exam General Appearance: No Acute Distress, Comfortable Eyes Eye Exam: Pupils Equal Throat Throat Exam: Oral Mucosa [place] & Moist Neck Neck Exam: Neck Supple Pulmonary Resp Exam: Breath Sounds Equal, No Distress, Rhonchi, Decreased Bases Cardiology CV Exam: Regular, Normal Sinus Rhythm Gastrointestinal/Abdomen GI Exam: Soft, Bowel Sounds Present, Distended Extremeties Extremities Exam: Moderate Edema, Pitting Edema, Dependent Edema Neurologic Neuro Exam: Alert, Awake, Oriented Psychiatric Psych Exam: Appropriate Responses Assessment/Plan Assessment Summary: Anemia of CKD, Hypertension, End Stage Renal Disease Problem List: (1) Anemia in chronic kidney disease (CKD) (2) Anxiety (3) Open wound of abdomen (4) Infected surgical wound (5) Type II diabetes mellitus with neurological manifestations, uncontrolled (6) End stage kidney disease Plan On HD, TTS. BP is stable. wound cultures growing Pseudomonas and Enterococcus. On Epogen for anemia. Transfuse as needed. Possible wound debridement. Now transported with mattress inflated by use of batteries. BP is stable. HD done yesterday. On Imipenem and Daptomycin. Give one dose of iron IV. Problem Qualifiers (1) Infected surgical wound: Qualified Code: T81.4XXA - Infected surgical wound, initial encounter Valentin Jimenez MD July 14, 2016 09:58
[2016-07-14] MEDS: ALPRAZolam 0.25 MG TAB PO PRN ×2 (10:47→22:05)
[2016-07-14] MEDS ORDERED: IRON SUCROSE IV ONE (11:00)
[2016-07-14] MEDS ORDERED: SODIUM CHLORIDE 0.9% IV ONE (11:00)
[2016-07-14] MEDS: ATORVASTATIN 80 MG TAB PO SCH (21:07)
[2016-07-14] MEDS: SODIUM CHLORIDE 0.9% FLUSH 10 ML FLUSH IV FLUSH SCH (21:08)
[2016-07-15] VITALS (7 sets, daily range): BP systolic 118–162; BP diastolic 59–67; PULSE 72–80; RESP 18–20; TEMP 97.6–99.1; O2SAT 96–100
[2016-07-15] MEDS: HEPARIN SODIUM - SQ 10,000 UNITS/ML VIAL SQ SCH ×2 (02:58→12:51)
[2016-07-15] MEDS: ACETAMINOPHEN/HYDROcodone 325 MG/10 MG TAB PO PRN ×6 (02:58→23:47)
[2016-07-15] MEDS: METHADONE HCL 10 MG TAB PO SCH ×3 (05:30→21:40)
[2016-07-15] MEDS: LEVOTHYROXINE SODIUM 150 MCG TAB PO SCH (05:30)
[2016-07-15] MEDS: IMIPENEM/CILASTATIN INJ 250 MG in SODIUM CHLORIDE 0.9% INJ 100 ML IV SCH (05:31)
[2016-07-15] MEDS: INSULIN NovoLIN REGULAR SUPPLEMENTAL SCALE SQ SCH ×4 (06:31→21:39)
[2016-07-15] MEDS: ALPRAZolam 0.25 MG TAB PO PRN ×2 (07:00→13:51)
[2016-07-15] MEDS: POVIDONE IODINE 10% SOLN 118 ML BOTTLE TOPICAL SCH ×2 (09:00→21:00)
[2016-07-15] MEDS: CALCITRIOL 0.25 MCG CAP PO SCH (09:09)
[2016-07-15] MEDS: FLUoxetine HCL 10 MG CAP PO SCH (09:09)
[2016-07-15] MEDS: ASPIRIN EC 81 MG TABEC PO SCH (09:09)
[2016-07-15] MEDS: GABAPENTIN 100 MG CAP PO SCH ×2 (09:09→21:40)
[2016-07-15] MEDS: SEVELAMER CARBONATE 800 MG TAB PO SCH ×3 (09:10→17:03)
[2016-07-15] MEDS: CINACALCET HYDROCHLORIDE 30 MG TAB PO SCH (09:10)
[2016-07-15] MEDS: SODIUM CHLORIDE 0.9% FLUSH 10 ML FLUSH IV FLUSH SCH ×2 (09:11→21:00)
--- NOTE | 2016-07-15 10:33 | HHI.NPPN ---
Subjective General Problems: Anemia, Edema, Hypertension Renal Failure: End Stage Renal Disease History of Present Illness 55-year-old female with past medical history of hypertension, morbid obesity, history of multiple abdominal wall, diabetes mellitus, ischemic heart disease, hypothyroidism, spinal stenosis and end-stage renal disease on hemodialysis three times per week who came to the hospital because of worsening pain in her wound. Additional Remarks Patient is alert, feeling better, pain in her wounds slightly better. Review of Systems Respiratory Lungs: SOB, Wheeze Cardiovascular Cardiac: GRIFFIN Gastrointestinal Gastrointestinal: Abdominal Pain Objective Data Data 07/14/16 07/15/16 18:59 06:59 Intake Total 720 ml 700 ml Balance 720 ml 700 ml Intake Oral 720 ml 700 ml # Voids 0 # Bowel Movements 1 2 Vital Signs Date Time Temp Pulse Resp B/P Pulse Ox O2 Delivery O2 Flow Rate FiO2 07/15/16 08:33 98.2 80 20 162/67 100 07/15/16 07:44 72 07/15/16 07:44 Room Air 07/15/16 04:00 98.2 76 20 139/59 96 07/15/16 00:00 97.6 73 20 118/60 99 07/14/16 21:28 98 21 07/14/16 20:00 98.1 76 20 156/67 98 07/14/16 19:19 Room Air 07/14/16 16:00 98.5 83 20 156/62 98 07/14/16 12:06 21 07/14/16 12:00 98.1 72 20 128/58 97 Physical Exam General Appearance: No Acute Distress, Comfortable Eyes Eye Exam: Pupils Equal Throat Throat Exam: Oral Mucosa [place] & Moist Neck Neck Exam: Neck Supple Pulmonary Resp Exam: Breath Sounds Equal, No Distress, Rhonchi, Decreased Bases Cardiology CV Exam: Regular, Normal Sinus Rhythm Gastrointestinal/Abdomen GI Exam: Soft, Bowel Sounds Present, Distended Extremeties Extremities Exam: Moderate Edema, Pitting Edema, Dependent Edema Neurologic Neuro Exam: Alert, Awake, Oriented Psychiatric Psych Exam: Appropriate Responses Assessment/Plan Assessment Summary: Anemia of CKD, Hypertension, End Stage Renal Disease Problem List: (1) Anemia in chronic kidney disease (CKD) (2) Anxiety (3) Open wound of abdomen (4) Infected surgical wound (5) Type II diabetes mellitus with neurological manifestations, uncontrolled (6) End stage kidney disease Plan On HD, TTS. BP is stable. wound cultures growing Pseudomonas and Enterococcus. On Epogen for anemia. Transfuse as needed. Possible wound debridement. Now transported with mattress inflated by use of batteries. BP is stable. HD to continue TTS. On Imipenem and Daptomycin. Given one dose of iron IV. Follow the Hgb. Continue PT. Problem Qualifiers (1) Infected surgical wound: Qualified Code: T81.4XXA - Infected surgical wound, initial encounter Valentin Jimenez MD July 15, 2016 10:33
--- NOTE | 2016-07-15 15:29 | HHI.IDPN ---
Subjective Subjective Remarks Patient is a 55-year-old morbidly obese female, [facility] for [facility] evaluation of her multiple complaints of pain. Patient had a recent hospitalization from May 14 to July 03, and at that time she had a large abdominal wound in her abdominal pannus with cellulitis. During that hospitalization she underwent multiple surgery with excision of the large open wound, debridement. There were several wound cultures done 1 on admission, and another one from her original excisional surgery and it had pseudomonas aeruginosa. Patient received IV antibiotics from May 14 2 June 07. He had more debridement on May 26, and on June 28 the patient had wide excision of the necrotic lower or abdominal pannus, panniculectomy, and partial closure of the wound. She apparently had [address], and she was [facility] to the [facility] on July 03. Admitted with infected wound and wound dehiscence Notes reviewed No fever Pain in better control Wound C/S with MDR PSAE and VRE C/O diarrhea Antibiotics Primaxin Cubicin Lines PIV Past Medical History Reviewed Allergies: Coded Allergies: Biaxin (Verified Allergy, Severe, swelling of face, 05/10/16) Iron (Verified Adverse Reaction, Severe, Constipation, 05/10/16) Morphine (Verified Adverse Reaction, Severe, 06/11/16) renal insufficiency. *MDRO Multi-Drug Resistant Organism (Verified Adverse Reaction, Unknown, ) VRE (abdominal wound) - 07/09/16 MDR-Pseudomonas (abdominal wound) - 07/09/16 Objective . Vital Signs Date Time Temp Pulse Resp B/P Pulse Ox O2 Delivery O2 Flow Rate FiO2 07/15/16 12:13 97.9 78 19 125/65 99 07/15/16 08:33 98.2 80 20 162/67 100 07/15/16 07:44 72 07/15/16 07:44 Room Air 07/15/16 04:00 98.2 76 20 139/59 96 07/15/16 00:00 97.6 73 20 118/60 99 07/14/16 21:28 98 21 07/14/16 20:00 98.1 76 20 156/67 98 07/14/16 19:19 Room Air 07/14/16 16:00 98.5 83 20 156/62 98 07/14/16 07/14/16 07/15/16 15:00 23:00 07:00 Intake Total 720 ml 360 ml 340 ml Balance 720 ml 360 ml 340 ml Intake Oral 720 ml 360 ml 340 ml # Voids 0 # Bowel Movements 1 1 1 Physical Exam GENERAL: This is a morbidly obese, well-developed female, awake and alert, in no apparent distress. SKIN: Cool and dry. No generalized rash. HEAD: Atraumatic. Normocephalic. No temporal or scalp tenderness. EYES: [place] conjunctivae. Pupils equal round and reactive. Extraocular motions intact. No scleral icterus. No injection or drainage. ENT: Nose without bleeding, or purulent drainage. Moist oral mucosa. No oral thrush. Throat without erythema, or exudate. Uvula midline. Airway patent. NECK: Trachea midline. No JVD or lymphadenopathy. Supple, nontender, no meningeal signs. Permacath is tunneled in the right IJ, site looks okay CARDIOVASCULAR: Regular rate and rhythm without murmurs, gallops, or rubs. Soft heart sounds. RESPIRATORY: Clear to auscultation. Breath sounds equal bilaterally. No wheezes , rales, or rhonchi. Decreased breath sounds at the bases. GASTROINTESTINAL: Abdomen soft, ,non-tender, nondistended, bowel sounds are present and normoactive. No guarding. There is a very long horizontal incision in low abdomen with sutures and nba in place, with some areas of yellow green slough on R side. On R side there is wound dehiscence that is about 5-6 inches long with yellow green drainage and she has surrounding area of erythema and induration. Seems to have more redness No odor MUSCULOSKELETAL: Extremities without clubbing, cyanosis. Improving LE edema. Has brownish tree bark texture on both LE. No calf tenderness. NEUROLOGICAL: Awake and alert. Cranial nerves II through XII intact. Five out of 5 muscle strength in all muscle groups. Normal speech. PSYCH: Normal affect, calm and cooperative LINE: No evidence of infection Assessment & Plan Remarks IMPRESSION Wound dehiscence with local wound infection, cellulitis S/P wide excision large abdominal wound and panniculectomy - C/S PSAE and VRE Morbid obesity ESRD on HD RECOMMENDATION Wound care team following Change Primaxin to Zerbaxa Continue Cubicin Follow CBC Monitor progress D/W RN D/W Shea Garcia MD July 15, 2016 15:28
[2016-07-15] MEDS: CEFTOLOZANE-TAZOBACTAM INJ 150 MG in SODIUM CHLORIDE 0.9% INJ 100 ML IV SCH ×2 (17:02→23:47)
--- NOTE | 2016-07-15 17:16 | HHI.PR ---
Subjective Remarks Follow up nonhealing abdominal wound and pressure ulcer of coccygeal region. Patient seen and examined today. Patient is anxious about treatment plan, states that she has been through a lot lately and just wants this wound to heal. Has been tolerating PO intake, denies any nausea and vomiting. Denies any acute complaints. Pain controlled. Abdominal dressing changes this am. Denies any recent fever, chills, cough, shortness of breath or chest pain. Objective Vitals Vital Signs Date Time Temp Pulse Resp B/P Pulse Ox O2 Delivery O2 Flow Rate FiO2 07/15/16 12:13 97.9 78 19 125/65 99 07/15/16 08:33 98.2 80 20 162/67 100 07/15/16 07:44 72 07/15/16 07:44 Room Air 07/15/16 04:00 98.2 76 20 139/59 96 07/15/16 00:00 97.6 73 20 118/60 99 07/14/16 21:28 98 21 07/14/16 20:00 98.1 76 20 156/67 98 07/14/16 19:19 Room Air I/O 07/14/16 07/14/16 07/14/16 07/15/16 07/15/16 07/15/16 07:00 15:00 23:00 07:00 15:00 23:00 Intake Total 580 ml 720 ml 360 ml 340 ml Output Total 1 ml Balance 579 ml 720 ml 360 ml 340 ml Intake Oral 480 ml 720 ml 360 ml 340 ml IV Total 100 ml Output Urine Total 1 ml # Voids 0 0 # Bowel Movements 3 1 1 1 Objective Remarks GENERAL: Morbidly obese, well-developed patient who is anxious at this time. SKIN: Warm and dry. No rash. Abdominal dressing c/d/i, changed this am. HEENT: Normocephalic. Pupils equal and round. No scleral icterus. No injection or drainage. No nasal bleeding or discharge. Mucous membranes pink and moist. Supple. Trachea midline. CARDIOVASCULAR: Regular rate and rhythm. S1, S2 noted. No murmur appreciated. RESPIRATORY: No accessory muscle use. Diminished in bilateral anterior lower lobes. Breath sounds equal bilaterally. GASTROINTESTINAL: Abdomen round, soft, non-tender, nondistended. Normoactive bowel sounds x4. MUSCULOSKELETAL: No obvious deformities. Extremities without clubbing, cyanosis , or edema. NEUROLOGICAL: Awake and alert. No obvious cranial nerve deficits. Motor grossly within normal limits. Normal speech. PSYCHIATRIC: Appropriate mood and affect; insight and judgment normal. A/P Assessment and Plan Ms. Foley is a 55-year-old female with a known history of CAD with stent placement, CHF, diabetes mellitus, ESRD on hemodialysis, hypertension and spinal stenosis with chronic back pain. Patient had a recent hospitalization from 05/14/16 to 07/03/16 and at that time had a large abdominal wound in her abdominal pannus with cellulitis. During that hospitalization she underwent multiple surgery with excision of the large open wound, debridement. There were several wound cultures done 1 on admission, and another one from her original excisional surgery and it had pseudomonas aeruginosa. Patient received IV antibiotics from 05/14/16-06/07/16. She had more debridement on 05/26/16, and on 06/28/16 the patient had wide excision of the necrotic lower or abdominal pannus, panniculectomy, and partial closure of the wound. She apparently had [address], and she was discharged to the skilled nursing on 07/03/16. Admitted with infected wound and wound dehiscence. Abdominal wound dehiscence - Wound cultures growing pseudomonas aeruginose and enterococcus faecium VRE. - ID following, appreciate input. - Start Zerbaxa 150 mg IV Q8h. Previously on Primaxin 250 mg IV Q12h 07/12-07/15 , now Dc'd. - Continue wet-to-dry dressing changes as ordered. - Monitor pressure ulcer of coccygeal region. Morbid obesity: strongly recommended diet and exercise, weight loss warranted. Hypertension, controlled: Monitor. Continue home medications as indicated. Type 2 Diabetes: Continue sliding scale insulin, cover as needed. Encourage healthy eating and compliance with 1800 ADA diabetic diet. [employer] has seen patient. Anxiety: Continue Xanax 0.125 mg PO PRN anxiety. Reassured. Other chronic medical conditions include hyperlipidemia, end stage renal disease on hemodialysis, hypothyroidism, dyslipidemia, depression and spinal stenosis, all are stable at this time. Continue current treatment and medications as indicated. Control pain: Continue Methadone 5 mg PO Q8h scheduled and [place] PO per pain scale. Monitor. DVT prophylaxis: Heparin 5,000 units sq Q12h. I spent 35 minutes [id number] with the patient or on the [place] discussing the patient's disposition, prognosis and plan of care with her and her caregiver. Over half the time spent was devoted to counseling the patient regarding treatment plan, placement and coordinating care with the patient. Attestation Patient seen and examined with EARL Coley. The exam, history, and the medical decision-making described in the above note were completed with the assistance of the dictating practitioner. I attest that I had a [id number] encounter with the patient on the same day, and personally performed all of the history, exam, or medical decision making. Discussed case with her thoroughly after seeing the patient, reviewed and agreed with the plan. Please see addendum in History, Physical examination. See below for any errata/additional input: Discussed with patient for about 15 more minutes in addition to above. No nausea or vomiting, pain is controlled Wound the sense on the right lateral abdominal area with exudates and discharge. Still with erythema and mild tenderness Will discuss with Dr. Meyers, discussed with infectious disease, need to de- escalate antibiotics. Anjelica Farley July 15, 2016 17:15 Raysa Griffin MD July 16, 2016 16:55
[2016-07-15] MEDS: ATORVASTATIN 80 MG TAB PO SCH (21:40)
[2016-07-16] VITALS (9 sets, daily range): BP systolic 121–158; BP diastolic 58–70; PULSE 76–94; RESP 18–20; TEMP 98–99.2; O2SAT 96–100
[2016-07-16] MEDS: HEPARIN SODIUM - SQ 10,000 UNITS/ML VIAL SQ SCH ×2 (00:53→13:41)
[2016-07-16] MEDS: LEVOTHYROXINE SODIUM 150 MCG TAB PO SCH (06:16)
[2016-07-16] MEDS: METHADONE HCL 10 MG TAB PO SCH ×4 (06:17→21:22)
[2016-07-16] MEDS: INSULIN NovoLIN REGULAR SUPPLEMENTAL SCALE SQ SCH ×4 (06:17→21:00)
[2016-07-16] MEDS: ACETAMINOPHEN/HYDROcodone 325 MG/10 MG TAB PO PRN ×4 (06:28→22:31)
[2016-07-16] MEDS: SEVELAMER CARBONATE 800 MG TAB PO SCH ×3 (09:00→18:00)
--- NOTE | 2016-07-16 10:03 | HHI.NPPN ---
Subjective General Problems: Anemia, Edema, Hypertension Renal Failure: End Stage Renal Disease History of Present Illness 55-year-old female with past medical history of hypertension, morbid obesity, history of multiple abdominal wall, diabetes mellitus, ischemic heart disease, hypothyroidism, spinal stenosis and end-stage renal disease on hemodialysis three times per week who came to the hospital because of worsening pain in her wound. Additional Remarks Patient is alert, seen during HD, not in distress, abd. pain is better. Review of Systems Respiratory Lungs: SOB, Wheeze Cardiovascular Cardiac: GRIFFIN Gastrointestinal Gastrointestinal: Abdominal Pain Objective Data Data 07/15/16 07/16/16 19:00 07:00 Intake Total 840 ml Balance 840 ml Intake Oral 840 ml # Voids 2 0 # Bowel Movements 1 0 Vital Signs Date Time Temp Pulse Resp B/P Pulse Ox O2 Delivery O2 Flow Rate FiO2 07/16/16 08:45 Room Air 07/16/16 08:34 98.8 79 18 121/58 100 07/16/16 06:58 76 07/16/16 04:37 98.6 77 18 141/61 96 07/16/16 00:51 98.0 94 18 158/68 98 07/15/16 20:00 97.8 80 18 135/60 99 07/15/16 19:44 Room Air 07/15/16 16:07 99.1 78 18 141/63 100 07/15/16 12:13 97.9 78 19 125/65 99 Physical Exam General Appearance: No Acute Distress, Comfortable Eyes Eye Exam: Pupils Equal Throat Throat Exam: Oral Mucosa [place] & Moist Neck Neck Exam: Neck Supple Pulmonary Resp Exam: Breath Sounds Equal, No Distress, Rhonchi, Decreased Bases Cardiology CV Exam: Regular, Normal Sinus Rhythm Gastrointestinal/Abdomen GI Exam: Soft, Bowel Sounds Present, Distended Extremeties Extremities Exam: Moderate Edema, Pitting Edema, Dependent Edema Neurologic Neuro Exam: Alert, Awake, Oriented Psychiatric Psych Exam: Appropriate Responses Assessment/Plan Assessment Summary: Anemia of CKD, Hypertension, End Stage Renal Disease Problem List: (1) Anemia in chronic kidney disease (CKD) (2) Anxiety (3) Open wound of abdomen (4) Infected surgical wound (5) Type II diabetes mellitus with neurological manifestations, uncontrolled (6) End stage kidney disease Plan On HD, TTS. BP is stable. wound cultures growing Pseudomonas and Enterococcus. On Epogen for anemia. Transfuse as needed. BP is stable. HD to continue TTS. On Ceftolozane and Daptomycin. HD now, remove fluid as tolerated. On Epogen. Problem Qualifiers (1) Infected surgical wound: Qualified Code: T81.4XXA - Infected surgical wound, initial encounter Valentin Jimenez MD July 16, 2016 10:03
[2016-07-16] MEDS: EPOETIN ALFA 10,000 UNITS/ML VIAL IV PRN (10:29)
[2016-07-16 11:19] LABS: AUTOMATED NEUTROPHIL # 11.6 TH/MM3 (1.8-7.7); BASOPHIL # 0.1 TH/MM3 (0-0.2); BASOPHIL % 0.7 % (0.0-2.0); EOSINOPHIL # 0.2 TH/MM3 (0-0.4); EOSINOPHIL % 1.4 % (0.0-4.0); HEMATOCRIT 24.6 % (35.0-46.0); HEMO FLAGS DIFF FINAL; LYMPH % 8.4 % (9.0-44.0); LYMPHOCYTE # 1.1 TH/MM3 (1.0-4.8); MEAN CORPUSCULAR HEMOGLOBIN 27.3 PG (27.0-34.0); MEAN CORPUSCULAR HGB CONC 32.2 % (32.0-36.0); MONO % 3.5 % (0.0-8.0); PLATELET COUNT 306 TH/MM3 (150-450); RED BLOOD COUNT 2.89 MIL/MM3 (4.00-5.30); RED CELL DISTRIBUTION WIDTH 16.7 % (11.6-17.2); WHITE BLOOD COUNT 13.5 TH/MM3 (4.0-11.0)
[2016-07-16 11:30] LABS: BICARBONATE 30.3 MEQ/L (21.0-32.0); POTASSIUM 3.5 MEQ/L (3.5-5.1)
[2016-07-16] MEDS: SODIUM CHLORIDE 0.9% IV SCH (12:14)
[2016-07-16] MEDS: DAPTOMYCIN IV SCH (12:14)
[2016-07-16] MEDS: GENTAMICIN SULFATE (DIALYSIS USE ONLY) 20 MG/2 ML VIAL IV PRN (12:39)
[2016-07-16] MEDS: HEPARIN SODIUM - IV 10,000 UNITS/10 ML VIAL PRN (12:40)
--- NOTE | 2016-07-16 13:31 | HHI.PR ---
Subjective Remarks Follow up nonhealing abdominal wound and pressure ulcer of coccygeal region. Patient seen and examined today. Patient awake and alert, more calm today and less anxious. Son at bedside. Denies any new acute complaints. Currently working with OT at bedside. Patient denies any recent fever, chills, cough, shortness of breath, or chest pain. Objective Vitals Vital Signs Date Time Temp Pulse Resp B/P Pulse Ox O2 Delivery O2 Flow Rate FiO2 07/16/16 08:45 Room Air 07/16/16 08:36 80 07/16/16 08:34 98.8 79 18 121/58 100 07/16/16 06:58 76 07/16/16 04:37 98.6 77 18 141/61 96 07/16/16 00:51 98.0 94 18 158/68 98 07/15/16 20:00 97.8 80 18 135/60 99 07/15/16 19:44 Room Air 07/15/16 16:07 99.1 78 18 141/63 100 I/O 07/15/16 07/15/16 07/15/16 07/16/16 07/16/16 07/16/16 06:59 14:59 22:59 06:59 14:59 22:59 Intake Total 340 ml 840 ml Output Total 1500 ml Balance 340 ml 840 ml -1500 ml Intake Oral 340 ml 840 ml Hemodialysis 1500 ml # Voids 2 0 0 # Bowel Movements 1 1 0 0 Result Diagram: 07/16/16 1046 07/16/16 1046 Objective Remarks GENERAL: Morbidly obese, well-developed patient who is anxious at this time. SKIN: Warm and dry. No rash. Abdominal dressing c/d/i, changed last night. Dressing lifted, wound assessed, nba intact, brown tinged discharge noted. HEENT: Normocephalic. Pupils equal and round. No scleral icterus. No injection or drainage. No nasal bleeding or discharge. Mucous membranes pink and moist. Supple. Trachea midline. CARDIOVASCULAR: Regular rate and rhythm. S1, S2 noted. No murmur appreciated. RESPIRATORY: No accessory muscle use. Diminished in bilateral anterior lower lobes. Breath sounds equal bilaterally. GASTROINTESTINAL: Abdomen round, soft, non-tender, nondistended. Normoactive bowel sounds x4. MUSCULOSKELETAL: No obvious deformities. Extremities without clubbing, cyanosis , or edema. 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 NEUROLOGICAL: Awake and alert. No obvious cranial nerve deficits. Motor grossly within normal limits. Normal speech. PSYCHIATRIC: Appropriate mood and affect; insight and judgment normal. A/P Assessment and Plan Ms. Foley is a 55-year-old female with a known history of CAD with stent placement, CHF, diabetes mellitus, ESRD on hemodialysis, hypertension and spinal stenosis with chronic back pain. Patient had a recent hospitalization from 05/14/16 to 07/03/16 and at that time had a large abdominal wound in her abdominal pannus with cellulitis. During that hospitalization she underwent multiple surgery with excision of the large open wound, debridement. There were several wound cultures done 1 on admission, and another one from her original excisional surgery and it had pseudomonas aeruginosa. Patient received IV antibiotics from 05/14/16-06/07/16. She had more debridement on 05/26/16, and on 06/28/16 the patient had wide excision of the necrotic lower or abdominal pannus, panniculectomy, and partial closure of the wound. She apparently had [address], and she was discharged to the assisted on 07/03/16. Admitted with infected wound and wound dehiscence. Abdominal wound dehiscence - Wound cultures growing pseudomonas aeruginose and enterococcus faecium VRE. Blood cultures drawn, NGTD. - ID following, appreciate input. - Continue Zerbaxa 150 mg IV Q8h. Previously on Primaxin 250 mg IV Q12h 07/12-, now Dc'd. - Continue wet-to-dry dressing changes as ordered. - Monitor pressure ulcer of coccygeal region. Morbid obesity: strongly recommended diet and exercise, weight loss warranted. Hypertension, controlled: Monitor. Continue home medications as indicated. Type 2 Diabetes: Continue sliding scale insulin, cover as needed. Encourage healthy eating and compliance with 1800 ADA diabetic diet. [employer] has seen patient. Anxiety: More controlled today. Continue Xanax 0.125 mg PO PRN anxiety. End stage renal disease: On hemodialysis T, , Sat. Nephrology following. Creatinine today /, 6.34, BUN 55, GFR 7. Other chronic medical conditions include hyperlipidemia, hypothyroidism, dyslipidemia, depression and spinal stenosis, all are stable at this time. Continue current treatment and medications as indicated. Control pain: Continue Methadone 5 mg PO Q8h scheduled and [place] PO per pain scale. Monitor. DVT prophylaxis: Heparin 5,000 units sq Q12h. Attestation Patient seen and examined with EARL Coley. The exam, history, and the medical decision-making described in the above note were completed with the assistance of the dictating practitioner. I attest that I had a [id number] encounter with the patient on the same day, and personally performed all of the history, exam, or medical decision making. Discussed case with her thoroughly after seeing the patient, reviewed and agreed with the plan. Please see addendum in History, Physical examination. See below for any errata/additional input: Pain controlled, afebrile Abdominal wound about the same, still with erythema, still with discharge next Continue antibiotics, will discuss with Anjelica Wharton July 16, 2016 13:31 Raysa Griffin MD July 16, 2016 16:59
[2016-07-16] MEDS: FLUoxetine HCL 10 MG CAP PO SCH (13:40)
[2016-07-16] MEDS: CINACALCET HYDROCHLORIDE 30 MG TAB PO SCH (13:40)
[2016-07-16] MEDS: CALCITRIOL 0.25 MCG CAP PO SCH (13:41)
[2016-07-16] MEDS: GABAPENTIN 100 MG CAP PO SCH ×2 (13:41→21:22)
[2016-07-16] MEDS: ASPIRIN EC 81 MG TABEC PO SCH (13:41)
[2016-07-16] MEDS: CEFTOLOZANE-TAZOBACTAM INJ 150 MG in SODIUM CHLORIDE 0.9% INJ 100 ML IV SCH ×2 (13:45→21:22)
[2016-07-16] MEDS: SODIUM CHLORIDE 0.9% FLUSH 10 ML FLUSH IV FLUSH SCH ×2 (13:47→21:22)
[2016-07-16] MEDS: POVIDONE IODINE 10% SOLN 118 ML BOTTLE TOPICAL SCH ×2 (15:32→21:00)
--- NOTE | 2016-07-16 15:32 | PD.PLAS.PN ---
Subjective Remarks Patient is status post panniculectomy for necrotic wounds on 06/28/16. Objective Vital Signs Date Time Temp Pulse Resp B/P Pulse Ox O2 Delivery O2 Flow Rate FiO2 07/16/16 13:37 99.2 82 20 147/70 100 07/16/16 08:45 Room Air 07/16/16 08:36 80 07/16/16 08:34 98.8 79 18 121/58 100 07/16/16 06:58 76 07/16/16 04:37 98.6 77 18 141/61 96 07/16/16 00:51 98.0 94 18 158/68 98 07/15/16 20:00 97.8 80 18 135/60 99 07/15/16 19:44 Room Air 07/15/16 16:07 99.1 78 18 141/63 100 I/O 07/15/16 07/15/16 07/15/16 07/16/16 07/16/16 07/16/16 07:00 15:00 23:00 07:00 15:00 23:00 Intake Total 340 ml 840 ml Output Total 1500 ml Balance 340 ml 840 ml -1500 ml Intake Oral 340 ml 840 ml Hemodialysis 1500 ml # Voids 2 0 0 # Bowel Movements 1 1 0 0 Laboratory Tests Test 07/16/16 10:46 White Blood Count 13.5 Red Blood Count 2.89 Hemoglobin 7.9 Hematocrit 24.6 Mean Corpuscular Volume 85.0 Mean Corpuscular Hemoglobin 27.3 Mean Corpuscular Hemoglobin 32.2 Concent Red Cell Distribution Width 16.7 Platelet Count 306 Mean Platelet Volume 6.9 Neutrophils (%) (Auto) 86.0 Lymphocytes (%) (Auto) 8.4 Monocytes (%) (Auto) 3.5 Eosinophils (%) (Auto) 1.4 Basophils (%) (Auto) 0.7 Neutrophils # (Auto) 11.6 Lymphocytes # (Auto) 1.1 Monocytes # (Auto) 0.5 Eosinophils # (Auto) 0.2 Basophils # (Auto) 0.1 CBC Comment DIFF FINAL Differential Comment Sodium Level 140 Potassium Level 3.5 Chloride Level 99 Carbon Dioxide Level 30.3 Anion Gap 11 Blood Urea Nitrogen 55 Creatinine 6.34 Estimat Glomerular Filtration 7 Rate Random Glucose 99 Calcium Level 7.7 Result Diagram: 07/16/16 1046 07/16/16 1046 Exam Findings The wound is healing well. There is pink granulation tissue present in the wound bed. There is also yellow slough. Infection is resolving. The erythema of the periwound skin is significantly improved. Assessment and Plan Diagnosis: (1) Pressure ulcer of coccygeal region (2) Wound dehiscence, surgical Assessment and Plan Wound is healing well. PT has been working with patient for getting out of bed. She may be moved to [place] for more vigorous rehab. Dana Romero July 16, 2016 15:32
[2016-07-16] MEDS: ATORVASTATIN 80 MG TAB PO SCH (21:22)
[2016-07-17] VITALS (10 sets, daily range): BP systolic 111–176; BP diastolic 56–78; PULSE 80–91; RESP 17–18; TEMP 98–98.7; O2SAT 96–100
[2016-07-17] MEDS: HEPARIN SODIUM - SQ 10,000 UNITS/ML VIAL SQ SCH ×2 (01:15→14:18)
[2016-07-17] MEDS: CEFTOLOZANE-TAZOBACTAM INJ 150 MG in SODIUM CHLORIDE 0.9% INJ 100 ML IV SCH ×3 (05:48→22:08)
[2016-07-17] MEDS: METHADONE HCL 10 MG TAB PO SCH ×3 (05:48→22:05)
[2016-07-17] MEDS: LEVOTHYROXINE SODIUM 150 MCG TAB PO SCH (05:48)
[2016-07-17] MEDS: INSULIN NovoLIN REGULAR SUPPLEMENTAL SCALE SQ SCH ×4 (05:50→21:00)
[2016-07-17] MEDS: ACETAMINOPHEN/HYDROcodone 325 MG/10 MG TAB PO PRN ×5 (06:55→23:07)
[2016-07-17] MEDS: ONDANSETRON HCL 4 MG/2 ML VIAL IVP PRN (08:29)
[2016-07-17] MEDS: SODIUM CHLORIDE 0.9% FLUSH 10 ML FLUSH IV FLUSH SCH ×2 (08:34→22:06)
[2016-07-17] MEDS: ASPIRIN EC 81 MG TABEC PO SCH (09:00)
[2016-07-17] MEDS: POVIDONE IODINE 10% SOLN 118 ML BOTTLE TOPICAL SCH ×2 (09:00→22:09)
[2016-07-17] MEDS: FLUoxetine HCL 10 MG CAP PO SCH (09:00)
[2016-07-17] MEDS: CALCITRIOL 0.25 MCG CAP PO SCH (09:00)
[2016-07-17] MEDS: GABAPENTIN 100 MG CAP PO SCH ×2 (09:00→22:05)
[2016-07-17] MEDS: SEVELAMER CARBONATE 800 MG TAB PO SCH ×3 (09:00→18:00)
[2016-07-17] MEDS: CINACALCET HYDROCHLORIDE 30 MG TAB PO SCH (09:00)
--- NOTE | 2016-07-17 11:35 | HHI.NPPN ---
Subjective General Problems: Anemia, Edema, Hypertension Renal Failure: End Stage Renal Disease History of Present Illness 55-year-old female with past medical history of hypertension, morbid obesity, history of multiple abdominal wall, diabetes mellitus, ischemic heart disease, hypothyroidism, spinal stenosis and end-stage renal disease on hemodialysis three times per week who came to the hospital because of worsening pain in her wound. Additional Remarks Patient is alert, feeling better, occ. has anxiety, no SOB. Review of Systems Respiratory Lungs: SOB, Wheeze Cardiovascular Cardiac: GRIFFIN Gastrointestinal Gastrointestinal: Abdominal Pain Objective Data Data 07/16/16 07/17/16 19:00 07:00 Intake Total 240 ml 960 ml Output Total 1500 ml Balance -1260 ml 960 ml Intake Oral 240 ml 960 ml Hemodialysis 1500 ml # Voids 1 0 # Bowel Movements 0 0 Vital Signs Date Time Temp Pulse Resp B/P Pulse Ox O2 Delivery O2 Flow Rate FiO2 07/17/16 08:00 98.4 84 18 173/72 98 07/17/16 04:00 98.0 82 18 138/78 97 07/17/16 00:00 98.5 80 18 150/77 97 07/16/16 21:28 Room Air 07/16/16 20:00 98.8 82 18 145/69 97 07/16/16 19:52 82 07/16/16 16:05 98.9 89 19 132/61 100 07/16/16 13:37 99.2 82 20 147/70 100 -: 07/16/16 1046 07/16/16 1046 Physical Exam General Appearance: No Acute Distress, Comfortable Eyes Eye Exam: Pupils Equal Throat Throat Exam: Oral Mucosa [place] & Moist Neck Neck Exam: Neck Supple Pulmonary Resp Exam: Breath Sounds Equal, No Distress, Rhonchi, Decreased Bases Cardiology CV Exam: Regular, Normal Sinus Rhythm Gastrointestinal/Abdomen GI Exam: Soft, Bowel Sounds Present, Distended Extremeties Extremities Exam: Moderate Edema, Pitting Edema, Dependent Edema Neurologic Neuro Exam: Alert, Awake, Oriented Psychiatric Psych Exam: Appropriate Responses Assessment/Plan Assessment Summary: Anemia of CKD, Hypertension, End Stage Renal Disease Problem List: (1) Anemia in chronic kidney disease (CKD) (2) Anxiety (3) Open wound of abdomen (4) Infected surgical wound (5) Type II diabetes mellitus with neurological manifestations, uncontrolled (6) End stage kidney disease Plan On HD, TTS. BP is stable. wound cultures growing Pseudomonas and Enterococcus. On Epogen for anemia. Transfuse as needed. BP is stable. HD to continue TTS. On Ceftolozane and Daptomycin. HD to continue TTS. Problem Qualifiers (1) Infected surgical wound: Qualified Code: T81.4XXA - Infected surgical wound, initial encounter Valentin Jimenez MD July 17, 2016 11:35
--- NOTE | 2016-07-17 15:09 | HHI.PR ---
Subjective Remarks Follow up nonhealing abdominal wound and pressure ulcer of coccygeal region. Patient seen and examined today. Patient in good spirits today, motivated and reassured on treatment plan. Denies any new acute complaints. Denies any fever, chills, shortness of breath, chest pain or nausea and vomiting. Tolerating PO diet. Dr. Meyers in earlier today, plan for OR on Friday. Objective Vitals Vital Signs Date Time Temp Pulse Resp B/P Pulse Ox O2 Delivery O2 Flow Rate FiO2 07/17/16 12:00 98.2 80 17 176/77 98 07/17/16 08:00 98.4 84 18 173/72 98 07/17/16 04:00 98.0 82 18 138/78 97 07/17/16 00:00 98.5 80 18 150/77 97 07/16/16 21:28 Room Air 07/16/16 20:00 98.8 82 18 145/69 97 07/16/16 19:52 82 07/16/16 16:05 98.9 89 19 132/61 100 I/O 07/16/16 07/16/16 07/16/16 07/17/16 07/17/16 07/17/16 07:00 15:00 23:00 07:00 15:00 23:00 Intake Total 240 ml 480 ml 480 ml 480 ml Output Total 1500 ml Balance -1260 ml 480 ml 480 ml 480 ml Intake Oral 240 ml 480 ml 480 ml 480 ml Hemodialysis 1500 ml # Voids 0 1 0 0 1 # Bowel Movements 0 0 0 0 0 Result Diagram: 07/16/16 1046 07/16/16 1046 Objective Remarks GENERAL: Morbidly obese, well-developed patient who is anxious at this time. SKIN: Warm and dry. No rash. Abdominal dressing c/d/i, changed last night. Dressing lifted, wound assessed, nba intact, brown tinged discharge noted. HEENT: Normocephalic. Pupils equal and round. No scleral icterus. No injection or drainage. No nasal bleeding or discharge. Mucous membranes pink and moist. Supple. Trachea midline. CARDIOVASCULAR: Regular rate and rhythm. S1, S2 noted. No murmur appreciated. RESPIRATORY: No accessory muscle use. Diminished in bilateral anterior lower lobes. Breath sounds equal bilaterally. GASTROINTESTINAL: Abdomen round, soft, non-tender, nondistended. Normoactive bowel sounds x4. MUSCULOSKELETAL: No obvious deformities. Extremities without clubbing, cyanosis , or edema. 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 NEUROLOGICAL: Awake and alert. No obvious cranial nerve deficits. Motor grossly within normal limits. Normal speech. PSYCHIATRIC: Appropriate mood and affect; insight and judgment normal. A/P Assessment and Plan Ms. Foley is a 55-year-old female with a known history of CAD with stent placement, CHF, diabetes mellitus, ESRD on hemodialysis, hypertension and spinal stenosis with chronic back pain. Patient had a recent hospitalization from 05/14/16 to 07/03/16 and at that time had a large abdominal wound in her abdominal pannus with cellulitis. During that hospitalization she underwent multiple surgery with excision of the large open wound, debridement. There were several wound cultures done 1 on admission, and another one from her original excisional surgery and it had pseudomonas aeruginosa. Patient received IV antibiotics from 05/14/16-06/07/16. She had more debridement on 05/26/16, and on 06/28/16 the patient had wide excision of the necrotic lower or abdominal pannus, panniculectomy, and partial closure of the wound. She apparently had [address], and she was discharged to the detention on 07/03/16. Admitted with infected wound and wound dehiscence. Abdominal wound dehiscence - Wound cultures growing pseudomonas aeruginose and enterococcus faecium VRE. Blood cultures drawn, NGTD. - ID following, appreciate input. - Change Zerbaxa to 150 mg IV Q8hr. Previously on Primaxin 250 mg IV Q12h 07/12 -07/15, now Dc'd. - Continue wet-to-dry dressing changes as ordered. - Monitor pressure ulcer of coccygeal region. - Dr. Meyers planning for surgery on Friday07/19/16 for debridement of abdominal and sacral wounds with placement of wound vac as indicated. Morbid obesity: strongly recommended diet and exercise, weight loss warranted. Hypertension, less controlled today:Likely pain related due to dressing changes. Monitor. Continue home medications as indicated. Control pain. If continues to sustain will add hypertensive agent. Type 2 Diabetes: Continue sliding scale insulin, cover as needed. Encourage healthy eating and compliance with 1800 ADA diabetic diet. Supervisor Bindery has seen patient. Anxiety: More controlled today. Continue Xanax 0.125 mg PO PRN anxiety. End stage renal disease: On hemodialysis T, TH, Sat. Nephrology following. Creatinine 6.34, BUN 55, GFR 7 on 07/16. Monitor. Other chronic medical conditions include hyperlipidemia, hypothyroidism, dyslipidemia, depression and spinal stenosis, all are stable at this time. Continue current treatment and medications as indicated. Control pain: Continue Methadone 5 mg PO Q8h scheduled and [place] PO per pain scale. Monitor. DVT prophylaxis: Heparin 5,000 units sq Q12h. D/w Anjelica Verdugo July 17, 2016 15:09
--- NOTE | 2016-07-17 16:09 | PD.PLAS.PN ---
Subjective Remarks Patient is status post panniculectomy for necrotic wounds on 06/28/16. Readmitted on 07/09 for cellulitis and wound dehiscence. Objective Vital Signs Date Time Temp Pulse Resp B/P Pulse Ox O2 Delivery O2 Flow Rate FiO2 07/17/16 12:00 98.2 80 17 176/77 98 07/17/16 11:35 100 07/17/16 08:00 98.4 84 18 173/72 98 07/17/16 04:00 98.0 82 18 138/78 97 07/17/16 00:00 98.5 80 18 150/77 97 07/16/16 21:28 Room Air 07/16/16 20:00 98.8 82 18 145/69 97 07/16/16 19:52 82 I/O 07/16/16 07/16/16 07/16/16 07/17/16 07/17/16 07/17/16 07:00 15:00 23:00 07:00 15:00 23:00 Intake Total 240 ml 480 ml 480 ml 480 ml Output Total 1500 ml Balance -1260 ml 480 ml 480 ml 480 ml Intake Oral 240 ml 480 ml 480 ml 480 ml Hemodialysis 1500 ml # Voids 0 1 0 0 1 # Bowel Movements 0 0 0 0 0 Result Diagram: 07/16/16 1046 07/16/16 1046 Exam Findings The wound is healing well. There is pink granulation tissue present in the wound bed. There is also yellow slough. Infection is resolving. The erythema of the periwound skin is significantly improved. Assessment and Plan Diagnosis: (1) Pressure ulcer of coccygeal region (2) Wound dehiscence, surgical Assessment and Plan Wound is healing well. PT has been working with patient for getting out of bed. The recommendation is for the patient to undergo surgery on friday for debridement of wounds of the abdomen and sacrum and possible application of wound vac. Her son was present for discussion. She indicated that she understood and opted to proceed with surgery. Consent is ordered. The exam, history, and the medical decision-making described in the above note were completed with the assistance of the mid-level provider. I reviewed and agree with the findings presented. I attest that I had a [id number] encounter with the patient on the same day, and personally performed and documented my assessment and findings in the medical record. Lisa Meyers M.D. Dana Romero July 17, 2016 16:09
[2016-07-17] MEDS: ATORVASTATIN 80 MG TAB PO SCH (22:05)
[2016-07-18] VITALS (8 sets, daily range): BP systolic 118–150; BP diastolic 57–67; PULSE 81–92; RESP 18; TEMP 98–98.8; O2SAT 92–98
[2016-07-18] MEDS: HEPARIN SODIUM - SQ 10,000 UNITS/ML VIAL SQ SCH ×2 (03:02→13:15)
[2016-07-18] MEDS: ACETAMINOPHEN/HYDROcodone 325 MG/10 MG TAB PO PRN ×4 (04:17→21:21)
[2016-07-18] MEDS: INSULIN NovoLIN REGULAR SUPPLEMENTAL SCALE SQ SCH ×4 (05:33→21:00)
[2016-07-18] MEDS ORDERED: PILL SPLITTER OTHER PRN (05:45)
[2016-07-18] MEDS: CEFTOLOZANE-TAZOBACTAM INJ 150 MG in SODIUM CHLORIDE 0.9% INJ 100 ML IV SCH ×2 (06:09→19:02)
[2016-07-18] MEDS: METHADONE HCL 10 MG TAB PO SCH ×2 (06:12→19:03)
[2016-07-18] MEDS: LEVOTHYROXINE SODIUM 150 MCG TAB PO SCH (06:13)
[2016-07-18] MEDS: FLUoxetine HCL 10 MG CAP PO SCH (09:06)
[2016-07-18] MEDS: CINACALCET HYDROCHLORIDE 30 MG TAB PO SCH (09:06)
[2016-07-18] MEDS: SEVELAMER CARBONATE 800 MG TAB PO SCH ×3 (09:06→18:22)
[2016-07-18] MEDS: CALCITRIOL 0.25 MCG CAP PO SCH (09:06)
[2016-07-18] MEDS: GABAPENTIN 100 MG CAP PO SCH ×2 (09:06→21:20)
[2016-07-18] MEDS: SODIUM CHLORIDE 0.9% FLUSH 10 ML FLUSH IV FLUSH SCH ×2 (09:09→21:22)
[2016-07-18] MEDS: POVIDONE IODINE 10% SOLN 118 ML BOTTLE TOPICAL SCH ×2 (09:10→21:23)
[2016-07-18] MEDS: ALPRAZolam 0.25 MG TAB PO PRN (10:39)
[2016-07-18] MEDS: ASPIRIN EC 81 MG TABEC PO SCH (10:39)
--- NOTE | 2016-07-18 10:57 | HHI.IDPN ---
Subjective Subjective Remarks Patient is a 55-year-old morbidly obese female, presented to the hospital from the custodial for further evaluation of her multiple complaints of pain. Patient had a recent hospitalization from May 14 to July 03, and at that time she had a large abdominal wound in her abdominal pannus with cellulitis. During that hospitalization she underwent multiple surgery with excision of the large open wound, debridement. There were several wound cultures done 1 on admission, and another one from her original excisional surgery and it had pseudomonas aeruginosa. Patient received IV antibiotics from May 14 2 June 07. He had more debridement on May 26, and on June 28 the patient had wide excision of the necrotic lower or abdominal pannus, panniculectomy, and partial closure of the wound. She apparently had [address], and she was discharged to the custodial on July 03. Admitted with infected wound and wound dehiscence Notes reviewed No fever Pain in better control Wound C/S with MDR PSAE and VRE OR plans noted for tomorrow Antibiotics Zerbaxa Cubicin Lines PIV Past Medical History Reviewed Allergies: Coded Allergies: Biaxin (Verified Allergy, Severe, swelling of face, 05/10/16) Iron (Verified Adverse Reaction, Severe, Constipation, 05/10/16) Morphine (Verified Adverse Reaction, Severe, 06/11/16) renal insufficiency. *MDRO Multi-Drug Resistant Organism (Verified Adverse Reaction, Unknown, ) VRE (abdominal wound) - 07/09/16 MDR-Pseudomonas (abdominal wound) - 07/09/16 Objective . Vital Signs Date Time Temp Pulse Resp B/P Pulse Ox O2 Delivery O2 Flow Rate FiO2 07/18/16 08:00 98.0 86 18 140/67 98 07/18/16 05:05 98.1 84 18 118/57 97 07/18/16 04:00 Room Air 07/18/16 00:00 Room Air 07/17/16 23:10 98.6 91 18 124/57 96 07/17/16 20:45 98.7 82 18 111/56 98 07/17/16 20:00 81 07/17/16 20:00 Room Air 07/17/16 17:22 100 07/17/16 16:00 98.6 80 18 156/70 100 07/17/16 12:00 98.2 80 17 176/77 98 07/17/16 11:35 100 07/17/16 07/17/16 07/18/16 15:00 23:00 07:00 Intake Total 480 ml 240 ml 120 ml Output Total 0 ml 0 ml Balance 480 ml 240 ml 120 ml Intake Oral 480 ml 240 ml 120 ml Output Urine Total 0 ml 0 ml # Voids 1 # Bowel Movements 0 0 0 Physical Exam GENERAL: This is a morbidly obese, well-developed female, awake and alert, in no apparent distress. SKIN: Cool and dry. No generalized rash. HEAD: Atraumatic. Normocephalic. No temporal or scalp tenderness. EYES: [place] conjunctivae. No scleral icterus. No injection or drainage. ENT: Nose without bleeding, or purulent drainage. Moist oral mucosa. No oral thrush. NECK: Supple, nontender, no meningeal signs. Permacath is tunneled in the right IJ, site looks okay CARDIOVASCULAR: Regular rate and rhythm without murmurs, gallops, or rubs. Soft heart sounds. RESPIRATORY: Clear to auscultation. Breath sounds equal bilaterally. No wheezes , rales, or rhonchi. Decreased breath sounds at the bases. GASTROINTESTINAL: Abdomen soft, obese, with large apron. Non-tender, nondistended, bowel sounds are present and normoactive. There is a very long horizontal incision in low abdomen with sutures and nba in place, with some areas of yellow green slough on R side. On R side there is wound dehiscence with yellow green drainage and she has surrounding area of erythema and induration. Looks about the same MUSCULOSKELETAL: Extremities without clubbing, cyanosis. Improving LE edema. Has brownish tree bark texture on both LE. No calf tenderness. NEUROLOGICAL: Awake and alert. Cranial nerves II through XII intact. Five out of 5 muscle strength in all muscle groups. Normal speech. PSYCH: Normal affect, calm and cooperative LINE: No evidence of infection Assessment & Plan Remarks IMPRESSION Wound dehiscence with local wound infection, cellulitis S/P wide excision large abdominal wound and panniculectomy - C/S PSAE and VRE Morbid obesity ESRD on HD RECOMMENDATION Wound care team following - plans for OR noted Continue Zerbaxa Continue Cubicin Follow CBC Monitor progress Shea Zavala MD July 18, 2016 10:57
--- NOTE | 2016-07-18 11:38 | HHI.NPPN ---
Subjective General Problems: Anemia, Edema, Hypertension Renal Failure: End Stage Renal Disease History of Present Illness 55-year-old female with past medical history of hypertension, morbid obesity, history of multiple abdominal wall, diabetes mellitus, ischemic heart disease, hypothyroidism, spinal stenosis and end-stage renal disease on hemodialysis three times per week who came to the hospital because of worsening pain in her wound. Additional Remarks Patient is alert, feeling better, want to eat more, abd. pain is better. Review of Systems Respiratory Lungs: SOB, Wheeze Cardiovascular Cardiac: GRIFFIN Gastrointestinal Gastrointestinal: Abdominal Pain Objective Data Data 07/17/16 07/18/16 18:59 06:59 Intake Total 480 ml 360 ml Output Total 0 ml Balance 480 ml 360 ml Intake Oral 480 ml 360 ml Output Urine Total 0 ml # Voids 1 # Bowel Movements 0 0 Vital Signs Date Time Temp Pulse Resp B/P Pulse Ox O2 Delivery O2 Flow Rate FiO2 07/18/16 09:20 81 07/18/16 09:20 Room Air 07/18/16 08:17 98 21 07/18/16 08:00 98.0 86 18 140/67 98 07/18/16 05:05 98.1 84 18 118/57 97 07/18/16 04:00 Room Air 07/18/16 00:00 Room Air 07/17/16 23:10 98.6 91 18 124/57 96 07/17/16 20:45 98.7 82 18 111/56 98 07/17/16 20:00 81 07/17/16 20:00 Room Air 07/17/16 17:22 100 07/17/16 16:00 98.6 80 18 156/70 100 07/17/16 12:00 98.2 80 17 176/77 98 -: 07/16/16 1046 07/16/16 1046 Physical Exam General Appearance: No Acute Distress, Comfortable Eyes Eye Exam: Pupils Equal Throat Throat Exam: Oral Mucosa [place] & Moist Neck Neck Exam: Neck Supple Pulmonary Resp Exam: Breath Sounds Equal, No Distress, Rhonchi, Decreased Bases Cardiology CV Exam: Regular, Normal Sinus Rhythm Gastrointestinal/Abdomen GI Exam: Soft, Bowel Sounds Present, Distended Extremeties Extremities Exam: Moderate Edema, Pitting Edema, Dependent Edema Neurologic Neuro Exam: Alert, Awake, Oriented Psychiatric Psych Exam: Appropriate Responses Assessment/Plan Assessment Summary: Anemia of CKD, Hypertension, End Stage Renal Disease Problem List: (1) Anemia in chronic kidney disease (CKD) (2) Anxiety (3) Open wound of abdomen (4) Infected surgical wound (5) Type II diabetes mellitus with neurological manifestations, uncontrolled (6) End stage kidney disease Plan On HD, TTS. BP is stable. wound cultures growing Pseudomonas and Enterococcus. On Epogen for anemia. Transfuse as needed. BP is stable. HD to continue TTS. On Ceftolozane and Daptomycin. For wound debridement tomorrow. Problem Qualifiers (1) Infected surgical wound: Qualified Code: T81.4XXA - Infected surgical wound, initial encounter Valentin Jimenez MD July 18, 2016 11:38
--- NOTE | 2016-07-18 13:24 | HHI.PR ---
Subjective Remarks Follow up nonhealing abdominal wound and pressure ulcer of coccygeal region. Patient seen and examined today. She states she has not been sleeping well, tired today. Denies any new acute complaints. Denies any fever, chills, cough, shortness of breath, chest pain, nausea or vomiting. Dr. Meyers planning for OR tomorrow. Objective Vitals Vital Signs Date Time Temp Pulse Resp B/P Pulse Ox O2 Delivery O2 Flow Rate FiO2 07/18/16 12:00 98.4 86 18 150/65 96 07/18/16 09:20 81 07/18/16 09:20 Room Air 07/18/16 08:17 98 21 07/18/16 08:00 98.0 86 18 140/67 98 07/18/16 05:05 98.1 84 18 118/57 97 07/18/16 04:00 Room Air 07/18/16 00:00 Room Air 07/17/16 23:10 98.6 91 18 124/57 96 07/17/16 20:45 98.7 82 18 111/56 98 07/17/16 20:00 81 07/17/16 20:00 Room Air 07/17/16 17:22 100 07/17/16 16:00 98.6 80 18 156/70 100 I/O 07/17/16 07/17/16 07/17/16 07/18/16 07/18/16 07/18/16 07:00 15:00 23:00 07:00 15:00 23:00 Intake Total 480 ml 480 ml 240 ml 120 ml Output Total 0 ml 0 ml Balance 480 ml 480 ml 240 ml 120 ml Intake Oral 480 ml 480 ml 240 ml 120 ml Output Urine Total 0 ml 0 ml # Voids 0 1 # Bowel Movements 0 0 0 0 Result Diagram: 07/16/16 1046 07/16/16 1046 Objective Remarks GENERAL: Morbidly obese, well-developed patient who is in NAD. SKIN: Warm and dry. No rash. Abdominal dressing c/d/i, drainage significantly diminished today. Dressing lifted, wound assessed, nba intact. HEENT: Normocephalic. Pupils equal and round. No scleral icterus. No injection or drainage. No nasal bleeding or discharge. Mucous membranes pink and moist. Supple. Trachea midline. CARDIOVASCULAR: Regular rate and rhythm. S1, S2 noted. No murmur appreciated. RESPIRATORY: No accessory muscle use. Diminished in bilateral anterior lower lobes. Breath sounds equal bilaterally. GASTROINTESTINAL: Abdomen round, soft, non-tender, nondistended. Normoactive bowel sounds x4. MUSCULOSKELETAL: No obvious deformities. Extremities without clubbing, cyanosis , or edema. 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 NEUROLOGICAL: Awake and alert. No obvious cranial nerve deficits. Motor grossly within normal limits. Normal speech. PSYCHIATRIC: Appropriate mood and affect; insight and judgment normal. A/P Assessment and Plan Ms. Foley is a 55-year-old female with a known history of CAD with stent placement, CHF, diabetes mellitus, ESRD on hemodialysis, hypertension and spinal stenosis with chronic back pain. Patient had a recent hospitalization from 05/14/16 to 07/03/16 and at that time had a large abdominal wound in her abdominal pannus with cellulitis. During that hospitalization she underwent multiple surgery with excision of the large open wound, debridement. There were several wound cultures done 1 on admission, and another one from her original excisional surgery and it had pseudomonas aeruginosa. Patient received IV antibiotics from 05/14/16-06/07/16. She had more debridement on 05/26/16, and on 06/28/16 the patient had wide excision of the necrotic lower or abdominal pannus, panniculectomy, and partial closure of the wound. She apparently had [address], and she was discharged to the snf on 07/03/16. Admitted with infected wound and wound dehiscence. Abdominal wound dehiscence - Wound cultures growing pseudomonas aeruginose and enterococcus faecium VRE. Blood cultures drawn, NGTD. - ID following, appreciate input. - Change Zerbaxa to 150 mg IV Q8hr. Previously on Primaxin 250 mg IV Q12h 5 -07/15, now Dc'd. - Continue wet-to-dry dressing changes as ordered. - Monitor pressure ulcer of coccygeal region. - Dr. Meyers planning for surgery on Friday07/19/16 for debridement of abdominal and sacral wounds with placement of wound vac as indicated. BMP and CBC in am. Hold heparin tomorrow for sx. Morbid obesity: strongly recommended diet and exercise, weight loss warranted. Hypertension, controlled today: Continue home medications as indicated. Control pain. If continues to sustain will add hypertensive agent. Type 2 Diabetes: Continue sliding scale insulin, cover as needed. Encourage healthy eating and compliance with 2199 ADA diabetic diet. Technical Operations Vice President has seen patient. Anxiety: More controlled today. Continue Xanax 0.125 mg PO PRN anxiety. End stage renal disease: On hemodialysis T, TH, Sat. Nephrology following. Creatinine 6.34, BUN 55, GFR 7 on 07/16. Monitor. Other chronic medical conditions include hyperlipidemia, hypothyroidism, dyslipidemia, depression and spinal stenosis, all are stable at this time. Continue current treatment and medications as indicated. Control pain: Continue Methadone 5 mg PO Q8h scheduled and [place] PO per pain scale. Monitor. DVT prophylaxis: Heparin 5,000 units sq Q12h. Hold tomorrow, surgery. D/w Anjelica Verdugo July 18, 2016 13:24
[2016-07-18] MEDS: ATORVASTATIN 80 MG TAB PO SCH (21:20)
[2016-07-19] VITALS (7 sets, daily range): BP systolic 99–143; BP diastolic 55–66; PULSE 82–102; RESP 16–18; TEMP 98.1–99.4; O2SAT 96–99
[2016-07-19] MEDS: ACETAMINOPHEN/HYDROcodone 325 MG/10 MG TAB PO PRN ×4 (02:03→21:12)
[2016-07-19] MEDS: METHADONE HCL 10 MG TAB PO SCH ×2 (03:53→12:25)
[2016-07-19] MEDS: CEFTOLOZANE-TAZOBACTAM INJ 150 MG in SODIUM CHLORIDE 0.9% INJ 100 ML IV SCH ×2 (03:53→12:25)
[2016-07-19] MEDS: INSULIN NovoLIN REGULAR SUPPLEMENTAL SCALE SQ SCH ×4 (05:29→20:34)
[2016-07-19 05:41] LABS: AUTOMATED NEUTROPHIL # 7.6 TH/MM3 (1.8-7.7); BASOPHIL # 0.1 TH/MM3 (0-0.2); BASOPHIL % 1.1 % (0.0-2.0); EOSINOPHIL # 0.1 TH/MM3 (0-0.4); EOSINOPHIL % 1.4 % (0.0-4.0); HEMATOCRIT 23.8 % (35.0-46.0); HEMO FLAGS DIFF FINAL; LYMPH % 16.1 % (9.0-44.0); LYMPHOCYTE # 1.6 TH/MM3 (1.0-4.8); MEAN CELL VOLUME 85.7 FL (80.0-100.0); MEAN CORPUSCULAR HEMOGLOBIN 27.3 PG (27.0-34.0); MEAN CORPUSCULAR HGB CONC 31.8 % (32.0-36.0); MONO % 4.8 % (0.0-8.0); NEUT % 76.6 % (16.0-70.0); PLATELET COUNT 323 TH/MM3 (150-450); RED BLOOD COUNT 2.78 MIL/MM3 (4.00-5.30); RED CELL DISTRIBUTION WIDTH 17.7 % (11.6-17.2); WHITE BLOOD COUNT 9.9 TH/MM3 (4.0-11.0)
[2016-07-19] MEDS: LEVOTHYROXINE SODIUM 150 MCG TAB PO SCH (06:00)
[2016-07-19 06:59] LABS: BICARBONATE 35.7 MEQ/L (21.0-32.0); POTASSIUM 3.6 MEQ/L (3.5-5.1)
[2016-07-19] MEDS: ASPIRIN EC 81 MG TABEC PO SCH (09:00)
[2016-07-19] MEDS: POVIDONE IODINE 10% SOLN 118 ML BOTTLE TOPICAL SCH (09:00)
[2016-07-19] MEDS: GABAPENTIN 100 MG CAP PO SCH ×2 (10:17→20:33)
[2016-07-19] MEDS: SEVELAMER CARBONATE 800 MG TAB PO SCH ×2 (10:17→13:30)
[2016-07-19] MEDS: FLUoxetine HCL 10 MG CAP PO SCH (10:17)
[2016-07-19] MEDS: CINACALCET HYDROCHLORIDE 30 MG TAB PO SCH (10:18)
[2016-07-19] MEDS: CALCITRIOL 0.25 MCG CAP PO SCH (10:18)
[2016-07-19] MEDS: SODIUM CHLORIDE 0.9% FLUSH 10 ML FLUSH IV FLUSH SCH ×2 (10:19→20:34)
--- NOTE | 2016-07-19 10:23 | HHI.IDPN ---
Subjective Subjective Remarks Patient is a 55-year-old morbidly obese female, presented to the hospital from the long term for further evaluation of her multiple complaints of pain. Patient had a recent hospitalization from May 14 to July 03, and at that time she had a large abdominal wound in her abdominal pannus with cellulitis. During that hospitalization she underwent multiple surgery with excision of the large open wound, debridement. There were several wound cultures done 1 on admission, and another one from her original excisional surgery and it had pseudomonas aeruginosa. Patient received IV antibiotics from May 14 2 June 07. He had more debridement on May 26, and on June 28 the patient had wide excision of the necrotic lower or abdominal pannus, panniculectomy, and partial closure of the wound. She apparently had [address], and she was discharged to the long term on July 03. Admitted with infected wound and wound dehiscence Notes reviewed No fever Pain in better control Going to surgery today for debridement of her wounds Had HD yesterday Wound C/S with MDR PSAE and VRE WBC down to normal Antibiotics Zerbaxa Cubicin Lines PIV Past Medical History Reviewed Allergies: Coded Allergies: Biaxin (Verified Allergy, Severe, swelling of face, 05/10/16) Iron (Verified Adverse Reaction, Severe, Constipation, 05/10/16) Morphine (Verified Adverse Reaction, Severe, 06/11/16) renal insufficiency. *MDRO Multi-Drug Resistant Organism (Verified Adverse Reaction, Unknown, ) VRE (abdominal wound) - 07/09/16 MDR-Pseudomonas (abdominal wound) - 07/09/16 Objective . Vital Signs Date Time Temp Pulse Resp B/P Pulse Ox O2 Delivery O2 Flow Rate FiO2 07/19/16 08:00 98.8 82 16 116/55 96 07/19/16 08:00 Room Air 07/19/16 04:35 98.5 82 18 143/63 97 07/19/16 04:00 Room Air 07/19/16 00:00 Room Air 07/18/16 23:20 98.8 92 18 126/64 95 07/18/16 21:00 98.8 84 18 145/65 92 07/18/16 20:00 Room Air 07/18/16 20:00 81 07/18/16 12:00 98.4 86 18 150/65 96 07/18/16 07/18/1607/19/17 15:00 23:00 07:00 Intake Total 720 ml 240 ml 240 ml Output Total 2000 ml 0 ml Balance 720 ml -1760 ml 240 ml Intake Oral 720 ml 240 ml 240 ml Output Urine Total 0 ml 0 ml Stool Total 0 ml Hemodialysis 2000 ml # Voids 1 # Bowel Movements 0 . Laboratory Tests Test 07/19/16 05:28 White Blood Count 9.9 TH/MM3 Red Blood Count 2.78 MIL/MM3 Hemoglobin 7.6 GM/DL Hematocrit 23.8 % Mean Corpuscular Volume 85.7 FL Mean Corpuscular Hemoglobin 27.3 PG Mean Corpuscular Hemoglobin 31.8 % Concent Red Cell Distribution Width 17.7 % Platelet Count 323 TH/MM3 Mean Platelet Volume 6.8 FL Neutrophils (%) (Auto) 76.6 % Lymphocytes (%) (Auto) 16.1 % Monocytes (%) (Auto) 4.8 % Eosinophils (%) (Auto) 1.4 % Basophils (%) (Auto) 1.1 % Neutrophils # (Auto) 7.6 TH/MM3 Lymphocytes # (Auto) 1.6 TH/MM3 Monocytes # (Auto) 0.5 TH/MM3 Eosinophils # (Auto) 0.1 TH/MM3 Basophils # (Auto) 0.1 TH/MM3 CBC Comment DIFF FINAL Differential Comment Laboratory Tests Test 07/19/16 05:28 Sodium Level 142 MEQ/L Potassium Level 3.6 MEQ/L Chloride Level 101 MEQ/L Carbon Dioxide Level 35.7 MEQ/L Anion Gap 5 MEQ/L Blood Urea Nitrogen 28 MG/DL Creatinine 3.91 MG/DL Estimat Glomerular Filtration 12 ML/MIN Rate Random Glucose 88 MG/DL Calcium Level 7.7 MG/DL Physical Exam GENERAL: awake and alert, NAD. SKIN: Cool and dry. No generalized rash. HEENT: EYES: [place] conjunctivae. No scleral icterus. No injection or drainage. Moist oral mucosa. NECK: Supple, nontender, no meningeal signs. Permacath is tunneled in the right IJ, site looks okay CARDIOVASCULAR: Regular rate and rhythm without murmurs, gallops, or rubs. Soft heart sounds. RESPIRATORY: Clear to auscultation. Breath sounds equal bilaterally. No wheezes , rales, or rhonchi. Decreased breath sounds at the bases. GASTROINTESTINAL: Abdomen soft, ,non-tender, nondistended, bowel sounds are present and normoactive. No guarding. There is a very long horizontal incision in low abdomen with sutures and nba in place, with some areas of yellow green slough on R side. On R side there is wound dehiscence that is about 5-6 inches long with yellow green drainage and she has surrounding area of erythema and induration. MUSCULOSKELETAL: Improving LE edema. Has brownish tree bark texture on both LE. No calf tenderness. NEUROLOGICAL: Non-focal. PSYCH: Normal affect, calm and cooperative LINE: No evidence of infection Assessment & Plan Remarks IMPRESSION Wound dehiscence with local wound infection, cellulitis S/P wide excision large abdominal wound and panniculectomy - C/S PSAE and VRE Morbid obesity ESRD on HD RECOMMENDATION Wound care team following - plans for OR today Will check if with any new C/S sent during OR Continue Zerbaxa Continue Cubicin Monitor progress Will see how her abdominal incision look after debridement and decide on course of her Abx Other ID covering for wy 07/20-07/22 D/W Shea Johnson MD July 19, 2016 10:23
[2016-07-19] MEDS ORDERED: ONDANSETRON HCL 4 MG/2 ML VIAL IV PUSH ONE (12:00)
[2016-07-19] MEDS ORDERED: PROPOFOL 200 MG/20 ML AMP IV ONE (12:00)
[2016-07-19] MEDS ORDERED: ePHEDrine/NS 25 MG/5 ML SYR IV ONE (12:00)
[2016-07-19] MEDS ORDERED: PHENYLEPH/NS 1000 MCG/10 ML SYR IV ONE (12:00)
[2016-07-19] MEDS ORDERED: SODIUM CHLOR 0.9% 250 ML INJ 250 ML IV ONE (12:00)
[2016-07-19] MEDS ORDERED: BACITRACIN TOP OINT 15 GM TUBE ONE (12:22)
[2016-07-19] MEDS ORDERED: BACITRACIN OPHT OINT 3.5 GM TUBO ONE (12:22)
[2016-07-19] MEDS ORDERED: DO NOT ADM ANY ANTICOAGULANT DRUGS PRN (15:56)
--- NOTE | 2016-07-19 16:04 | HHI.PR ---
Immediate Post Op Note Procedure Date: July 19, 2016 Pre Op Diagnosis: (1) Nonhealing nonsurgical wound (2) Wound dehiscence, surgical (3) Pressure ulcer of coccygeal region Post Op Diagnosis: (1) Nonhealing nonsurgical wound (2) Wound dehiscence, surgical (3) Pressure ulcer of coccygeal region Surgeon: Lisa Meyers Director International(s): Melodie Romero PA-C Procedure: Excisional debridement of large abdominal wound. Excisional debridement of left hip wound. Excisional debridement of right hip wound. Debridement of sacral wound and coccygeal bone. Estimated blood loss: 150 mL Anesthesia: General Drains: None Patient to: PACU Patient Condition: Good Date/Time of Procedure: SEE SURGICAL CARE RECORD Lisa Meyers MD July 19, 2016 16:04
[2016-07-19] MEDS ORDERED: *HYDROmorphone PF 1 MG VIAL PERIprocedural Use ONLY ONE (16:15)
[2016-07-19] MEDS ORDERED: fentaNYL CITRATE 250 MCG/5 ML AMP ONE (16:19)
[2016-07-19] MEDS ORDERED: MIDAZOLAM HCL 2 MG/2 ML VIAL ONE (16:19)
--- NOTE | 2016-07-19 18:52 | HHI.NPPN ---
Subjective General Problems: Anemia, Edema, Hypertension Renal Failure: End Stage Renal Disease History of Present Illness 55-year-old female with past medical history of hypertension, morbid obesity, history of multiple abdominal wall, diabetes mellitus, ischemic heart disease, hypothyroidism, spinal stenosis and end-stage renal disease on hemodialysis three times per week who came to the hospital because of worsening pain in her wound. Additional Remarks Patient is alert, seen in AM before the surgery. Review of Systems Respiratory Lungs: SOB, Wheeze Cardiovascular Cardiac: GRIFFIN Gastrointestinal Gastrointestinal: Abdominal Pain Objective Data Data 07/18/16 07/19/16 19:00 07:00 Intake Total 720 ml 480 ml Output Total 2000 ml 0 ml Balance -1280 ml 480 ml Intake Oral 720 ml 480 ml Output Urine Total 0 ml Stool Total 0 ml Hemodialysis 2000 ml # Voids 1 # Bowel Movements 0 Vital Signs Date Time Temp Pulse Resp B/P Pulse Ox O2 Delivery O2 Flow Rate FiO2 07/19/16 17:20 98.2 102 16 142/61 99 07/19/16 16:30 98.6 98 16 118/67 100 Nasal Cannula 2 07/19/16 16:15 99 15 115/66 100 Nasal Cannula 2 07/19/16 16:00 112 14 105/62 100 Nasal Cannula 2 07/19/16 15:56 98.5 110 10 99/60 99 Nasal Cannula 2 07/19/16 12:00 98.6 85 16 137/66 98 07/19/16 09:26 20 07/19/16 08:14 96 Nasal Cannula 2.00 07/19/16 08:00 98.8 82 16 116/55 96 07/19/16 08:00 Room Air 07/19/16 04:35 98.5 82 18 143/63 97 07/19/16 04:00 Room Air 07/19/16 00:00 Room Air 07/18/16 23:20 98.8 92 18 126/64 95 07/18/16 21:00 98.8 84 18 145/65 92 07/18/16 20:00 Room Air 07/18/16 20:00 81 -: 07/19/16 0528 07/19/16 0528 Physical Exam General Appearance: No Acute Distress, Comfortable Eyes Eye Exam: Pupils Equal Throat Throat Exam: Oral Mucosa [place] & Moist Neck Neck Exam: Neck Supple Pulmonary Resp Exam: Breath Sounds Equal, No Distress, Rhonchi, Decreased Bases Cardiology CV Exam: Regular, Normal Sinus Rhythm Gastrointestinal/Abdomen GI Exam: Soft, Bowel Sounds Present, Distended Extremeties Extremities Exam: Moderate Edema, Pitting Edema, Dependent Edema Neurologic Neuro Exam: Alert, Awake, Oriented Psychiatric Psych Exam: Appropriate Responses Assessment/Plan Assessment Summary: Anemia of CKD, Hypertension, End Stage Renal Disease Problem List: (1) Anemia in chronic kidney disease (CKD) (2) Anxiety (3) Open wound of abdomen (4) Infected surgical wound (5) Type II diabetes mellitus with neurological manifestations, uncontrolled (6) End stage kidney disease Plan On HD, TTS. BP is stable. wound cultures growing Pseudomonas and Enterococcus. On Epogen for anemia. Transfuse as needed. BP is stable. HD to continue TTS. On Ceftolozane and Daptomycin. For wound debridement today. Continue PT, HD will be in AM. Problem Qualifiers (1) Infected surgical wound: Qualified Code: T81.4XXA - Infected surgical wound, initial encounter Valentin Jimenez MD July 19, 2016 18:52
[2016-07-19] MEDS: ATORVASTATIN 80 MG TAB PO SCH (20:34)
--- NOTE | 2016-07-19 23:50 | HHI.PR ---
Subjective Remarks Patient seen this afternoon around 4:30 PM in PACU. Patient is somnolent, however is awake for exam. She denies any chest pain or shortness of breath. Denies any nausea or vomiting. Objective Vital Signs Date Time Temp Pulse Resp B/P Pulse Ox O2 Delivery O2 Flow Rate FiO2 07/19/16 21:00 98.1 99 18 99/61 97 07/19/16 17:20 98.2 102 16 142/61 99 07/19/16 16:30 98.6 98 16 118/67 100 Nasal Cannula 2 07/19/16 16:15 99 15 115/66 100 Nasal Cannula 2 07/19/16 16:00 112 14 105/62 100 Nasal Cannula 2 07/19/16 15:56 98.5 110 10 99/60 99 Nasal Cannula 2 07/19/16 12:00 98.6 85 16 137/66 98 07/19/16 09:26 20 07/19/16 08:14 96 Nasal Cannula 2.00 07/19/16 08:00 98.8 82 16 116/55 96 07/19/16 08:00 Room Air 07/19/16 04:35 98.5 82 18 143/63 97 07/19/16 04:00 Room Air 07/19/16 00:00 Room Air I/O 07/18/16 07/18/16 07/18/16 07/19/16 07/19/16 07/19/16 07:00 15:00 23:00 07:00 15:00 23:00 Intake Total 120 ml 720 ml 240 ml 240 ml 920 ml Output Total 0 ml 2000 ml 0 ml 100 ml Balance 120 ml 720 ml -1760 ml 240 ml 820 ml Intake Oral 120 ml 720 ml 240 ml 240 ml 120 ml Packed Cells 250 ml Other 550 ml Output Urine Total 0 ml 0 ml 0 ml 0 ml Stool Total 0 ml Hemodialysis 2000 ml Estimated Blood Loss 100 ml # Voids 1 # Bowel Movements 0 0 0 Result Diagram: 07/19/1652707/19/16527 Objective Remarks GENERAL: patient lying in bed. In PACU. Speech is clear. Somnolent, wakes up for exam. SKIN: Warm and dry. HEAD: Normocephalic. EYES: No scleral icterus. No injection or drainage. NECK: Supple, trachea midline. No JVD. CARDIOVASCULAR: Regular rate and rhythm without murmurs, gallops, or rubs. RESPIRATORY: Breath sounds equal bilaterally. No accessory muscle use. GASTROINTESTINAL: Abdomen soft, non-tender, nondistended. MUSCULOSKELETAL: No cyanosis, or edema. BACK: Nontender without obvious deformity. No CVA tenderness. A/P Assessment and Plan Ms. Foley is a 55-year-old female with a known history of CAD with stent placement, CHF, diabetes mellitus, ESRD on hemodialysis, hypertension and spinal stenosis with chronic back pain. Patient had a recent hospitalization from 05/14/16 to 07/03/16 and at that time had a large abdominal wound in her abdominal pannus with cellulitis. During that hospitalization she underwent multiple surgery with excision of the large open wound, debridement. There were several wound cultures done 1 on admission, and another one from her original excisional surgery and it had pseudomonas aeruginosa. Patient received IV antibiotics from 05/14/16-06/07/16. She had more debridement on 05/26/16, and on 06/28/16 the patient had wide excision of the necrotic lower or abdominal pannus, panniculectomy, and partial closure of the wound. She apparently had [address], and she was discharged to the [facility] on 07/03/16. Admitted with infected wound and wound dehiscence. //Abdominal wound dehiscence //Postop revision 07/19. - Wound cultures growing pseudomonas aeruginose and enterococcus faecium VRE. Blood cultures drawn, NGTD. - ID following, appreciate input. - Change Zerbaxa to 150 mg IV Q8hr. Previously on Primaxin 250 mg IV Q12h 07/12 -07/15, now Dc'd. - Continue wet-to-dry dressing changes as ordered. - Monitor pressure ulcer of coccygeal region. - Dr. Meyers planning for surgery on Friday07/19/16 for debridement of abdominal and sacral wounds with placement of wound vac as indicated. BMP and CBC in am. Hold heparin tomorrow for sx. Morbid obesity: strongly recommended diet and exercise, weight loss warranted. Hypertension, controlled today: Continue home medications as indicated. Control pain. If continues to sustain will add hypertensive agent. Type 2 Diabetes: Continue sliding scale insulin, cover as needed. Encourage healthy eating and compliance with 2200 ADA diabetic diet. Memorial Designer has seen patient. Anxiety: More controlled today. Continue Xanax 0.125 mg PO PRN anxiety. End stage renal disease: On hemodialysis T, TH, Sat. Nephrology following. Creatinine 6.34, BUN 55, GFR 7 on 07/16. Monitor. Anemia. Follow-up labs tomorrow. Other chronic medical conditions include hyperlipidemia, hypothyroidism, dyslipidemia, depression and spinal stenosis, all are stable at this time. Continue current treatment and medications as indicated. Control pain: Continue Methadone 5 mg PO Q8h scheduled and [place] PO per pain scale. Monitor. DVT prophylaxis: Heparin 5,000 units sq Q12h. Hold tomorrow, surgery. D/w Ramirez Ang MD July 19, 2016 23:49
[2016-07-20] MEDS: CEFTOLOZANE-TAZOBACTAM INJ 150 MG in SODIUM CHLORIDE 0.9% INJ 100 ML IV SCH ×3 (02:58→17:41)
[2016-07-20] MEDS: METHADONE HCL 10 MG TAB PO SCH ×3 (03:01→17:36)
[2016-07-20 05:07] VITALS: BP 149/64; PULSE 77; RESP 18; TEMP 97.8; O2SAT 93
[2016-07-20] MEDS: ACETAMINOPHEN/HYDROcodone 325 MG/10 MG TAB PO PRN ×5 (05:10→21:52)
[2016-07-20] MEDS: LEVOTHYROXINE SODIUM 150 MCG TAB PO SCH (05:10)
[2016-07-20] MEDS: INSULIN NovoLIN REGULAR SUPPLEMENTAL SCALE SQ SCH ×4 (06:19→21:00)
[2016-07-20 06:32] VITALS: PULSE 79
[2016-07-20] MEDS: SODIUM HYPOCHLORITE 0.25% 500 ML BTL TOPICAL SCH (08:35)
[2016-07-20] MEDS: POVIDONE IODINE 10% SOLN 118 ML BOTTLE TOP SCH (08:35)
[2016-07-20] MEDS: SEVELAMER CARBONATE 800 MG TAB PO SCH ×3 (09:00→17:37)
[2016-07-20] MEDS: EPOETIN ALFA 10,000 UNITS/ML VIAL IV PRN (09:30)
[2016-07-20] MEDS: DAPTOMYCIN IV SCH (11:14)
[2016-07-20] MEDS: SODIUM CHLORIDE 0.9% IV SCH (11:14)
[2016-07-20] MEDS: GENTAMICIN SULFATE (DIALYSIS USE ONLY) 20 MG/2 ML VIAL IV PRN (11:24)
[2016-07-20] MEDS: HEPARIN SODIUM - IV 10,000 UNITS/10 ML VIAL PRN (11:25)
--- NOTE | 2016-07-20 11:34 | HHI.NPPN ---
Subjective General Problems: Anemia, Edema, Hypertension Renal Failure: End Stage Renal Disease History of Present Illness 55-year-old female with past medical history of hypertension, morbid obesity, history of multiple abdominal wall, diabetes mellitus, ischemic heart disease, hypothyroidism, spinal stenosis and end-stage renal disease on hemodialysis three times per week who came to the hospital because of worsening pain in her wound. Additional Remarks Patient is alert, seen at dialysis Review of Systems Respiratory Lungs: SOB, Wheeze Cardiovascular Cardiac: GRIFFIN Gastrointestinal Gastrointestinal: Abdominal Pain Objective Data Data 07/19/16 07/20/16 19:00 07:00 Intake Total 800 ml 480 ml Output Total 100 ml 0 ml Balance 700 ml 480 ml Intake Oral 180 ml IV Total 300 ml Packed Cells 250 ml Other 550 ml Output Urine Total 0 ml Estimated Blood Loss 100 ml # Bowel Movements 0 Vital Signs Date Time Temp Pulse Resp B/P Pulse Ox O2 Delivery O2 Flow Rate FiO2 07/20/16 10:13 93 Room Air 07/20/16 08:35 2 07/20/16 06:32 79 07/20/16 05:07 97.8 77 18 149/64 93 07/19/16 23:42 99.4 90 18 126/61 96 07/19/16 21:00 98.1 99 18 99/61 97 07/19/16 20:10 Room Air 07/19/16 19:55 Nasal Cannula 2.00 07/19/16 17:20 98.2 102 16 142/61 99 07/19/16 16:30 98.6 98 16 118/67 100 Nasal Cannula 2 07/19/16 16:15 99 15 115/66 100 Nasal Cannula 2 07/19/16 16:00 112 14 105/62 100 Nasal Cannula 2 07/19/16 15:56 98.5 110 10 99/60 99 Nasal Cannula 2 07/19/16 12:00 98.6 85 16 137/66 98 -: 07/19/16 0528 07/19/16 0528 Physical Exam General Appearance: No Acute Distress, Comfortable Eyes Eye Exam: Pupils Equal Throat Throat Exam: Oral Mucosa [place] & Moist Neck Neck Exam: Neck Supple Pulmonary Resp Exam: Breath Sounds Equal, No Distress, Rhonchi, Decreased Bases Cardiology CV Exam: Regular, Normal Sinus Rhythm Gastrointestinal/Abdomen GI Exam: Soft, Bowel Sounds Present, Distended Extremeties Extremities Exam: Moderate Edema, Pitting Edema, Dependent Edema Neurologic Neuro Exam: Alert, Awake, Oriented Psychiatric Psych Exam: Appropriate Responses Assessment/Plan Assessment Summary: Anemia of CKD, Hypertension, End Stage Renal Disease Problem List: (1) Anemia in chronic kidney disease (CKD) (2) Anxiety (3) Open wound of abdomen (4) Infected surgical wound (5) Type II diabetes mellitus with neurological manifestations, uncontrolled (6) End stage kidney disease Plan On HD, TTS. BP is stable. wound cultures growing Pseudomonas and Enterococcus. On Epogen for anemia. Transfuse as needed. BP is stable.Surgical wound debridement HD to continue TTS. Seen during HD UF 2 L tolerating it Problem Qualifiers (1) Infected surgical wound: Qualified Code: T81.4XXA - Infected surgical wound, initial encounter Jessie Birmingham MD July 20, 2016 11:34
[2016-07-20] MEDS: SODIUM CHLORIDE 0.9% FLUSH 10 ML FLUSH IV FLUSH SCH ×2 (12:16→21:23)
[2016-07-20] MEDS: ASPIRIN EC 81 MG TABEC PO SCH (12:16)
[2016-07-20] MEDS: GABAPENTIN 100 MG CAP PO SCH ×2 (12:16→21:22)
[2016-07-20] MEDS: FLUoxetine HCL 10 MG CAP PO SCH (12:17)
[2016-07-20] MEDS: CALCITRIOL 0.25 MCG CAP PO SCH (12:17)
[2016-07-20] MEDS: CINACALCET HYDROCHLORIDE 30 MG TAB PO SCH (12:17)
[2016-07-20 12:32] VITALS: BP 132/63; PULSE 87; RESP 19; TEMP 98.5; O2SAT 100
[2016-07-20 16:30] VITALS: BP 135/65; PULSE 85; RESP 18; TEMP 98.3; O2SAT 98
[2016-07-20 18:07] LABS: HEMATOCRIT 27.7 % (35.0-46.0); MEAN CORPUSCULAR HEMOGLOBIN 27.7 PG (27.0-34.0); MEAN CORPUSCULAR HGB CONC 32.6 % (32.0-36.0); PLATELET COUNT 293 TH/MM3 (150-450); RED BLOOD COUNT 3.26 MIL/MM3 (4.00-5.30); RED CELL DISTRIBUTION WIDTH 17.3 % (11.6-17.2)
[2016-07-20 18:08] LABS: REVIEW FLAG FINAL
[2016-07-20 20:00] VITALS: BP 167/71; PULSE 80; PULSE 81; RESP 20; TEMP 98.3; O2SAT 99
[2016-07-20] MEDS: ATORVASTATIN 80 MG TAB PO SCH (21:22)
--- NOTE | 2016-07-20 21:49 | MP ---
cc: ERNESTO GAMBINO MD DATE OF SURGERY 07/19/16 PREOPERATIVE DIAGNOSIS 1. Large abdominal wound dehiscence due to nonhealing 2. Stage III wound of left hip 3. Stage III wound of right hip 4. 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 Large abdominal wound dehiscence due to nonhealing 2. Stage III wound of left hip 3. Stage III wound of right hip 4. 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 Excisional debridement of large abdominal wound. 2. Excisional debridement of left hip wound including skin, subcutaneous tissue. 3. Excisional debridement of right hip wound including skin and subcutaneous tissue. 4. Debridement of sacral wound and coccyx bone with bone excision. ANESTHESIA General SURGEON Ernesto Gambino MD SET KEY DRIVER Mary Alice Romero PA-C. INDICATIONS A 55-year-old female with history of diabetes, renal failure, anemia, severe malnutrition with necrosis of the pannus of her abdomen. This was excised several weeks ago. In addition, the patient has pressure ulcers and nonhealing wounds due to lack of perfusion on both hips and she has a chronic wound over the coccyx. FINDINGS At the completion of the procedure, the necrotic material from the nonhealing wounds which spanned the entire abdomen anteriorly and laterally were debrided of necrotic material and packed. The two wounds each measured approximately 4.0 x 4.0 inches in greatest dimension, were completely debrided and packed. The sacral coccygeal wound was relatively clean, although the bone was exposed. There was some necrotic material on it. The bone was debrided. Operative time was approximately 2 hours. PROCEDURE IN DETAIL The patient was seen preoperatively, sites and sides were marked. The patient was taken to the operating room, placed in a right lateral position and prepped and draped, time-out called by the circulating nurse. The tissue was excised with scissors cautery. Small vessels were cauterized with the cautery. The debridement was to the area of the hip on the left side which actually is bilobed and went 4 inches x 2 inches and then 4 inches x 2 inches and these were linear. After excision attention was turned to the abdominal area. The necrotic material was excised. All of this was done after removing the stitches and nba which had previously been placed. The abdominal wound was also debrided with a versajet and then copiously irrigated with saline and dressed with Betadine packing held in place with a dry dressing. The patient was then redraped in the left lateral position in order to expose her sacral coccygeal area and the wounds on the left side. After adequately prepping and draping, the sacrococcygeal wound was debrided with the Versajet. The bone was removed with a rongeur. The wound was irrigated and packed with Betadine-soaked fluffs. Covered with a Medipore dressing. Attention was then turned to the hip where this area was debrided of the necrotic material that as the skin and subcutaneous tissue down to the fat. It was debrided sharply and then the Versajet was used to debride the deep tissue. Attention was then turned to the anterior aspect of her abdomen where there was necrotic material which was sharply excised and debrided with the Versajet. All wounds were then copiously irrigated with saline and packed with gauze soaked in povidone-iodine, held in place with a dry dressing. The patient was then transferred back to her bed and a binder was placed. The patient was then taken from the operating room back to the PACU in satisfactory condition having tolerated the procedure well. Postoperative wound care orders are placed. MD GINGER Corbin/ /4:08 PM /9:26 PM [facility]ITALJalil
[2016-07-21] VITALS: BP 150/65; PULSE 76; RESP 18; TEMP 97.5; O2SAT 97
--- NOTE | 2016-07-21 | HHI.PR ---
Subjective Remarks late entry. Date of service 07/20/16. pt denies cp or sob. Objective Vital Signs Date Time Temp Pulse Resp B/P Pulse Ox O2 Delivery O2 Flow Rate FiO2 07/20/16 20:00 98.3 80 20 167/71 99 07/20/16 18:50 20 07/20/16 18:50 20 07/20/16 16:30 98.3 85 18 135/65 98 07/20/16 12:32 98.5 87 19 132/63 100 07/20/16 10:13 93 Room Air 07/20/16 06:32 79 07/20/16 05:07 97.8 77 18 149/64 93 I/O 07/20/16 07/20/16 07/20/16 07/21/16 07/21/16 07/21/16 07:00 15:00 23:00 07:00 15:00 23:00 Intake Total 260 ml 360 ml 200 ml Output Total 0 ml 2000 ml Balance 260 ml -1640 ml 200 ml Intake Oral 60 ml 360 ml IV Total 200 ml 200 ml Output Urine Total 0 ml Hemodialysis 2000 ml # Voids 1 # Bowel Movements 0 1 Result Diagram: 07/20/16 1712 07/19/16 0528 Objective Remarks GENERAL: patient lying in bed. In PACU. Speech is clear. Somnolent, wakes up for exam. SKIN: Warm and dry. HEAD: Normocephalic. EYES: No scleral icterus. No injection or drainage. NECK: Supple, trachea midline. No JVD. CARDIOVASCULAR: Regular rate and rhythm without murmurs, gallops, or rubs. RESPIRATORY: Breath sounds equal bilaterally. No accessory muscle use. GASTROINTESTINAL: Abdomen soft, non-tender, nondistended. MUSCULOSKELETAL: No cyanosis, or edema. BACK: Nontender without obvious deformity. No CVA tenderness. A/P Assessment and Plan Ms. Foley is a 55-year-old female with a known history of CAD with stent placement, CHF, diabetes mellitus, ESRD on hemodialysis, hypertension and spinal stenosis with chronic back pain. Patient had a recent hospitalization from 05/14/16 to 07/03/16 and at that time had a large abdominal wound in her abdominal pannus with cellulitis. During that hospitalization she underwent multiple surgery with excision of the large open wound, debridement. There were several wound cultures done 1 on admission, and another one from her original excisional surgery and it had pseudomonas aeruginosa. Patient received IV antibiotics from 05/14/16-06/07/16. She had more debridement on 05/26/16, and on 06/28/16 the patient had wide excision of the necrotic lower or abdominal pannus, panniculectomy, and partial closure of the wound. She apparently had [address], and [facility]. Admitted with infected wound and wound dehiscence. //Abdominal wound dehiscence //Postop revision 07/19. - Wound cultures growing pseudomonas aeruginose and enterococcus faecium VRE. Blood cultures drawn, NGTD. - ID following, appreciate input. - Change Zerbaxa to 150 mg IV Q8hr. Previously on Primaxin 250 mg IV Q12h 07/12 -07/15, now Dc'd. - Continue wet-to-dry dressing changes as ordered. - Monitor pressure ulcer of coccygeal region. -vss. cont to monitor. postop mgt per surg svc //Morbid obesity: strongly recommended diet and exercise, weight loss warranted. //Hypertension, controlled today: Continue home medications as indicated. Control pain. If continues to sustain will add hypertensive agent. //Type 2 Diabetes: Continue sliding scale insulin, cover as needed. Encourage healthy eating and compliance with 2200 ADA diabetic diet. Optomechanical Technician has seen patient. //Anxiety: Continue Xanax 0.125 mg PO PRN anxiety. //End stage renal disease: On hemodialysis T, , Sat. Nephrology following. Creatinine 6.34, BUN 55, GFR 7 on 07/16. Monitor. //Anemia. Follow-up labs tomorrow. //Other chronic medical conditions include hyperlipidemia, hypothyroidism, dyslipidemia, depression and spinal stenosis, all are stable at this time. Continue current treatment and medications as indicated. Control pain: Continue Methadone 5 mg PO Q8h scheduled and [place] PO per pain scale. Monitor. //DVT prophylaxis: ac as per surg svc D/w Ramirez Ang MD July 21, 2016 00:00 Ramirez William MD July 21, 2016 00:00
[2016-07-21] MEDS: ACETAMINOPHEN/HYDROcodone 325 MG/10 MG TAB PO PRN ×4 (01:51→20:15)
[2016-07-21] MEDS: CEFTOLOZANE-TAZOBACTAM INJ 150 MG in SODIUM CHLORIDE 0.9% INJ 100 ML IV SCH ×3 (03:46→17:32)
[2016-07-21] MEDS: METHADONE HCL 10 MG TAB PO SCH ×3 (03:46→17:33)
[2016-07-21 04:00] VITALS: BP 142/66; PULSE 77; RESP 18; TEMP 97.9; O2SAT 99
[2016-07-21] MEDS: LEVOTHYROXINE SODIUM 150 MCG TAB PO SCH (05:54)
[2016-07-21] MEDS: INSULIN NovoLIN REGULAR SUPPLEMENTAL SCALE SQ SCH ×4 (06:05→20:15)
[2016-07-21 09:00] VITALS: BP 172/80; PULSE 80; RESP 18; TEMP 98; O2SAT 98
[2016-07-21] MEDS: ASPIRIN EC 81 MG TABEC PO SCH (09:39)
[2016-07-21] MEDS: FLUoxetine HCL 10 MG CAP PO SCH (09:40)
[2016-07-21] MEDS: CALCITRIOL 0.25 MCG CAP PO SCH (09:40)
[2016-07-21] MEDS: SEVELAMER CARBONATE 800 MG TAB PO SCH ×3 (09:40→17:36)
[2016-07-21] MEDS: SODIUM CHLORIDE 0.9% FLUSH 10 ML FLUSH IV FLUSH SCH ×2 (09:40→21:00)
[2016-07-21] MEDS: GABAPENTIN 100 MG CAP PO SCH ×2 (09:40→20:14)
[2016-07-21] MEDS: SODIUM HYPOCHLORITE 0.25% 500 ML BTL TOPICAL SCH (09:41)
[2016-07-21] MEDS: POVIDONE IODINE 10% SOLN 118 ML BOTTLE TOP SCH (09:41)
[2016-07-21] MEDS: CINACALCET HYDROCHLORIDE 30 MG TAB PO SCH (09:41)
--- NOTE | 2016-07-21 10:34 | PD.PLAS.PN ---
Subjective Remarks Patient is comfortable. Vital Signs Date Time Temp Pulse Resp B/P Pulse Ox O2 Delivery O2 Flow Rate FiO2 07/21/16 04:00 97.9 77 18 142/66 99 07/21/16 00:00 97.5 76 18 150/65 97 07/20/16 21:00 Room Air 07/20/16 20:00 81 07/20/16 20:00 98.3 80 20 167/71 99 07/20/16 18:50 20 07/20/16 18:50 20 07/20/16 16:30 98.3 85 18 135/65 98 07/20/16 12:32 98.5 87 19 132/63 100 I/O 07/20/16 07/20/16 07/20/16 07/21/16 07/21/16 07/21/16 07:00 15:00 23:00 07:00 15:00 23:00 Intake Total 260 ml 360 ml 555 ml 600 ml Output Total 0 ml 2000 ml Balance 260 ml -1640 ml 555 ml 600 ml Intake Oral 60 ml 360 ml 355 ml 600 ml IV Total 200 ml 200 ml Output Urine Total 0 ml Hemodialysis 2000 ml # Voids 1 0 1 # Bowel Movements 0 1 0 0 Laboratory Tests Test 07/20/16 17:12 White Blood Count 12.0 Red Blood Count 3.26 Hemoglobin 9.0 Hematocrit 27.7 Mean Corpuscular Volume 85.0 Mean Corpuscular Hemoglobin 27.7 Mean Corpuscular Hemoglobin 32.6 Concent Red Cell Distribution Width 17.3 Platelet Count 293 Mean Platelet Volume 7.6 Hematology Comments Result Diagram: 07/20/16 1712 07/19/16 0528 Plan Impression: The patient is progressing well. Plan: Wound care. Will order trapeze to increase strength. Lisa Meyers MD July 21, 2016 10:34
[2016-07-21] MEDS ORDERED: MAGNESIUM HYDROXIDE SUSP 30 ML CUP PO ONE (12:00)
[2016-07-21] MEDS ORDERED: DOCUSATE SODIUM 50 MG/SENNA 8.6 MG TAB PO ONE (12:00)
[2016-07-21] MEDS ORDERED: BISACODYL 10 MG SUPP RECTAL ONE (12:00)
[2016-07-21 13:00] VITALS: BP 160/67; PULSE 83; RESP 18; TEMP 98.2; O2SAT 100
--- NOTE | 2016-07-21 15:03 | HHI.NPPN ---
Subjective General Problems: Anemia, Edema, Hypertension Renal Failure: End Stage Renal Disease History of Present Illness 55-year-old female with past medical history of hypertension, morbid obesity, history of multiple abdominal wall, diabetes mellitus, ischemic heart disease, hypothyroidism, spinal stenosis and end-stage renal disease on hemodialysis three times per week who came to the hospital because of worsening pain in her wound. Additional Remarks Patient is alert, Review of Systems Respiratory Lungs: SOB, Wheeze Cardiovascular Cardiac: GRIFFIN Gastrointestinal Gastrointestinal: Abdominal Pain Objective Data Data 07/20/16 07/21/16 19:00 07:00 Intake Total 560 ml 955 ml Output Total 2000 ml Balance -1440 ml 955 ml Intake Oral 360 ml 955 ml IV Total 200 ml Hemodialysis 2000 ml # Voids 1 1 # Bowel Movements 1 0 Vital Signs Date Time Temp Pulse Resp B/P Pulse Ox O2 Delivery O2 Flow Rate FiO2 07/21/16 04:00 97.9 77 18 142/66 99 07/21/16 00:00 97.5 76 18 150/65 97 07/20/16 21:00 Room Air 07/20/16 20:00 81 07/20/16 20:00 98.3 80 20 167/71 99 07/20/16 18:50 20 07/20/16 18:50 20 07/20/16 16:30 98.3 85 18 135/65 98 -: 07/20/16 1712 07/19/16 0528 Physical Exam General Appearance: No Acute Distress, Comfortable Eyes Eye Exam: Pupils Equal Throat Throat Exam: Oral Mucosa [place] & Moist Neck Neck Exam: Neck Supple Pulmonary Resp Exam: Breath Sounds Equal, No Distress, Rhonchi, Decreased Bases Cardiology CV Exam: Regular, Normal Sinus Rhythm Gastrointestinal/Abdomen GI Exam: Soft, Bowel Sounds Present, Distended Extremeties Extremities Exam: Moderate Edema, Pitting Edema, Dependent Edema Neurologic Neuro Exam: Alert, Awake, Oriented Psychiatric Psych Exam: Appropriate Responses Assessment/Plan Assessment Summary: Anemia of CKD, Hypertension, End Stage Renal Disease Problem List: (1) Anemia in chronic kidney disease (CKD) (2) Anxiety (3) Open wound of abdomen (4) Infected surgical wound (5) Type II diabetes mellitus with neurological manifestations, uncontrolled (6) End stage kidney disease Plan On HD, TTS. BP is stable. wound cultures growing Pseudomonas and Enterococcus. On Epogen for anemia. Transfuse as needed. BP is stable. HD to continue TTS. s/p surgery UF [address] Jimenez to follow Problem Qualifiers (1) Infected surgical wound: Qualified Code: T81.4XXA - Infected surgical wound, initial encounter Jessie Birmingham MD July 21, 2016 15:03
[2016-07-21 16:00] VITALS: BP 156/72; PULSE 84; RESP 18; TEMP 98.1; O2SAT 98
--- NOTE | 2016-07-21 16:08 | HHI.PR ---
Subjective Remarks Patient seen this morning around 11 AM. Denies any nausea or vomiting. Denies any chest pain or shortness of breath. No bowel movement in several days. Requesting laxative. Objective Vital Signs Date Time Temp Pulse Resp B/P Pulse Ox O2 Delivery O2 Flow Rate FiO2 07/21/16 13:00 98.2 83 18 160/67 100 07/21/16 09:00 98.0 80 18 172/80 98 07/21/16 04:00 97.9 77 18 142/66 99 07/21/16 00:00 97.5 76 18 150/65 97 07/20/16 21:00 Room Air 07/20/16 20:00 81 07/20/16 20:00 98.3 80 20 167/71 99 07/20/16 18:50 20 07/20/16 18:50 20 07/20/16 16:30 98.3 85 18 135/65 98 I/O 07/20/16 07/20/16 07/20/16 07/21/16 07/21/16 07/21/16 07:00 15:00 23:00 07:00 15:00 23:00 Intake Total 260 ml 360 ml 555 ml 600 ml Output Total 0 ml 2000 ml Balance 260 ml -1640 ml 555 ml 600 ml Intake Oral 60 ml 360 ml 355 ml 600 ml IV Total 200 ml 200 ml Output Urine Total 0 ml Hemodialysis 2000 ml # Voids 1 0 1 # Bowel Movements 0 1 0 0 Result Diagram: 07/20/16 1712 07/19/16 0528 Objective Remarks GENERAL: patient lying in bed. Awake, alert and oriented 3. SKIN: Warm and dry. Wounds dressed with dressings intact. HEAD: Normocephalic. EYES: No scleral icterus. No injection or drainage. NECK: Supple, trachea midline. No JVD. CARDIOVASCULAR: Regular rate and rhythm without murmurs, gallops, or rubs. RESPIRATORY: Breath sounds equal bilaterally. No accessory muscle use. GASTROINTESTINAL: Abdomen soft, non-tender, nondistended. MUSCULOSKELETAL: No cyanosis, or edema. BACK: Nontender without obvious deformity. No CVA tenderness. A/P Assessment and Plan Ms. Foley is a 55-year-old female with a known history of CAD with stent placement, CHF, diabetes mellitus, ESRD on hemodialysis, hypertension and spinal stenosis with chronic back pain. Patient had a recent hospitalization from 05/14/16 to 07/03/16 and at that time had a large abdominal wound in her abdominal pannus with cellulitis. During that hospitalization she underwent multiple surgery with excision of the large open wound, debridement. There were several wound cultures done 1 on admission, and another one from her original excisional surgery and it had pseudomonas aeruginosa. Patient received IV antibiotics from 05/14/16-06/07/16. She had more debridement on 05/26/16, and on 06/28/16 the patient had wide excision of the necrotic lower or abdominal pannus, panniculectomy, and partial closure of the wound. She apparently had [address], and she was discharged to the care home on 07/03/16. Admitted with infected wound and wound dehiscence. //Abdominal wound dehiscence //Postop revision 07/19. - Wound cultures growing pseudomonas aeruginose and enterococcus faecium VRE. Blood cultures drawn, NGTD. - ID following, appreciate input. - Change Zerbaxa to 150 mg IV Q8hr. Previously on Primaxin 250 mg IV Q12h 07/12 -07/15, now Dc'd. - Continue wet-to-dry dressing changes as ordered. - Monitor pressure ulcer of coccygeal region. - postop mgt per surg svc //Morbid obesity: strongly recommended diet and exercise, weight loss warranted. //Hypertension, controlled today: Continue home medications as indicated. Control pain. If continues to sustain will add hypertensive agent. //Type 2 Diabetes: Continue sliding scale insulin, cover as needed. Encourage healthy eating and compliance with 2200 ADA diabetic diet. Shoes Salesperson has seen patient. //Anxiety: Continue Xanax 0.125 mg PO PRN anxiety. //End stage renal disease: On hemodialysis T, , Sat. Nephrology following. Creatinine 6.34, BUN 55, GFR 7 on 07/16. Monitor. //Anemia. Follow-up labs tomorrow. //Constipation. laxitives ordered. monitor //Other chronic medical conditions include hyperlipidemia, hypothyroidism, dyslipidemia, depression and spinal stenosis, all are stable at this time. Continue current treatment and medications as indicated. Control pain: Continue Methadone 5 mg PO Q8h scheduled and [place] PO per pain scale. Monitor. //DVT prophylaxis: ac as per surg svc D/w RN William,Ramirez D MD July 21, 2016 16:08
[2016-07-21 20:00] VITALS: BP 166/70; PULSE 91; RESP 20; TEMP 98.1; O2SAT 99
[2016-07-21] MEDS: ATORVASTATIN 80 MG TAB PO SCH (20:14)
[2016-07-22] VITALS (9 sets, daily range): BP systolic 123–187; BP diastolic 57–83; PULSE 70–95; RESP 16–20; TEMP 97.5–98.2; O2SAT 96–100
[2016-07-22] MEDS: ACETAMINOPHEN/HYDROcodone 325 MG/10 MG TAB PO PRN ×5 (01:38→20:04)
[2016-07-22] MEDS: CEFTOLOZANE-TAZOBACTAM INJ 150 MG in SODIUM CHLORIDE 0.9% INJ 100 ML IV SCH ×2 (03:54→11:38)
[2016-07-22] MEDS: METHADONE HCL 10 MG TAB PO SCH ×3 (03:55→18:23)
[2016-07-22] MEDS: LEVOTHYROXINE SODIUM 150 MCG TAB PO SCH (05:53)
[2016-07-22 07:10] LABS: AUTOMATED NEUTROPHIL # 6.1 TH/MM3 (1.8-7.7); BASOPHIL # 0.1 TH/MM3 (0-0.2); BASOPHIL % 1.1 % (0.0-2.0); EOSINOPHIL # 0.3 TH/MM3 (0-0.4); EOSINOPHIL % 3.5 % (0.0-4.0); HEMATOCRIT 26.4 % (35.0-46.0); HEMO FLAGS DIFF FINAL; LYMPH % 17.5 % (9.0-44.0); LYMPHOCYTE # 1.5 TH/MM3 (1.0-4.8); MEAN CELL VOLUME 87.1 FL (80.0-100.0); MEAN CORPUSCULAR HEMOGLOBIN 28.1 PG (27.0-34.0); MEAN CORPUSCULAR HGB CONC 32.3 % (32.0-36.0); MONO % 6.4 % (0.0-8.0); NEUT % 71.5 % (16.0-70.0); PLATELET COUNT 323 TH/MM3 (150-450); RED BLOOD COUNT 3.03 MIL/MM3 (4.00-5.30); RED CELL DISTRIBUTION WIDTH 17.8 % (11.6-17.2); WHITE BLOOD COUNT 8.6 TH/MM3 (4.0-11.0)
[2016-07-22 07:23] LABS: BICARBONATE 29.4 MEQ/L (21.0-32.0); MAGNESIUM 1.9 MG/DL (1.5-2.5); POTASSIUM 3.4 MEQ/L (3.5-5.1)
[2016-07-22] MEDS: DOCUSATE SODIUM 50 MG/SENNA 8.6 MG TAB PO SCH ×2 (09:00→20:04)
[2016-07-22] MEDS: CALCITRIOL 0.25 MCG CAP PO SCH (09:00)
[2016-07-22] MEDS: POVIDONE IODINE 10% SOLN 118 ML BOTTLE TOP SCH (09:00)
[2016-07-22] MEDS: GABAPENTIN 100 MG CAP PO SCH ×2 (09:01→20:03)
[2016-07-22] MEDS: FLUoxetine HCL 10 MG CAP PO SCH (09:01)
[2016-07-22] MEDS: SEVELAMER CARBONATE 800 MG TAB PO SCH ×4 (09:01→18:00)
[2016-07-22] MEDS: CINACALCET HYDROCHLORIDE 30 MG TAB PO SCH (09:01)
[2016-07-22] MEDS: ASPIRIN EC 81 MG TABEC PO SCH (09:01)
[2016-07-22] MEDS: SODIUM CHLORIDE 0.9% FLUSH 10 ML FLUSH IV FLUSH SCH ×2 (09:03→20:06)
[2016-07-22] MEDS: SODIUM HYPOCHLORITE 0.25% 500 ML BTL TOPICAL SCH (10:07)
[2016-07-22] MEDS: INSULIN NovoLIN REGULAR SUPPLEMENTAL SCALE SQ SCH ×3 (10:52→21:00)
--- NOTE | 2016-07-22 12:05 | HHI.NPPN ---
Subjective General Problems: Anemia, Edema, Hypertension Renal Failure: End Stage Renal Disease History of Present Illness 55-year-old female with past medical history of hypertension, morbid obesity, history of multiple abdominal wall, diabetes mellitus, ischemic heart disease, hypothyroidism, spinal stenosis and end-stage renal disease on hemodialysis three times per week who came to the hospital because of worsening pain in her wound. Additional Remarks Patient is alert, feeling tired after the PT. Review of Systems Respiratory Lungs: SOB, Wheeze Cardiovascular Cardiac: GRIFFIN Gastrointestinal Gastrointestinal: Abdominal Pain Objective Data Data 07/21/16 07/22/16 19:00 07:00 Intake Total 1700 ml Balance 1700 ml Intake Oral 1500 ml IV Total 200 ml # Voids 3 # Bowel Movements 0 Vital Signs Date Time Temp Pulse Resp B/P Pulse Ox O2 Delivery O2 Flow Rate FiO2 07/22/16 08:06 82 07/22/16 08:06 Room Air 07/22/16 08:00 98.2 95 20 180/76 100 07/22/16 04:00 98.1 80 20 127/62 96 07/22/16 00:00 98.0 87 20 181/71 100 07/21/16 20:17 Room Air 07/21/16 20:00 98.1 91 20 166/70 99 07/21/16 19:29 18 07/21/16 17:51 Nasal Cannula 2.00 07/21/16 17:32 18 07/21/16 16:32 100 Room Air 07/21/16 16:00 98.1 84 18 156/72 98 07/21/16 13:00 98.2 83 18 160/67 100 -: 07/22/16 0528 07/22/16 0528 Physical Exam General Appearance: No Acute Distress, Comfortable Eyes Eye Exam: Pupils Equal Throat Throat Exam: Oral Mucosa [place] & Moist Neck Neck Exam: Neck Supple Pulmonary Resp Exam: Breath Sounds Equal, No Distress, Rhonchi, Decreased Bases Cardiology CV Exam: Regular, Normal Sinus Rhythm Gastrointestinal/Abdomen GI Exam: Soft, Bowel Sounds Present, Distended Extremeties Extremities Exam: Moderate Edema, Pitting Edema, Dependent Edema Neurologic Neuro Exam: Alert, Awake, Oriented Psychiatric Psych Exam: Appropriate Responses Assessment/Plan Assessment Summary: Anemia of CKD, Hypertension, End Stage Renal Disease Problem List: (1) Anemia in chronic kidney disease (CKD) (2) Anxiety (3) Open wound of abdomen (4) Infected surgical wound (5) Type II diabetes mellitus with neurological manifestations, uncontrolled (6) End stage kidney disease Plan On HD, TTS. BP is stable. wound cultures growing Pseudomonas and Enterococcus. On Epogen for anemia. Transfuse as needed. BP is stable.Surgical wound debridement HD to continue TTS. Surgery to follow. Has low Albumin, on PO protein supplement. Problem Qualifiers (1) Infected surgical wound: Qualified Code: T81.4XXA - Infected surgical wound, initial encounter Valentin Jimenez MD July 22, 2016 12:05
--- NOTE | 2016-07-22 15:08 | HHI.IDPN ---
Subjective Subjective Remarks ID Xcover for Dr Zavala chart reviewed Dw Dr Reis Patient is a 55-year-old morbidly obese female, presented to the hospital from the longterm for further evaluation of her multiple complaints of pain. Patient had a recent hospitalization from May 14 to July 03, and at that time she had a large abdominal wound in her abdominal pannus with cellulitis. During that hospitalization she underwent multiple surgery with excision of the large open wound, debridement. There were several wound cultures done 1 on admission, and another one from her original excisional surgery and it had pseudomonas aeruginosa. Patient received IV antibiotics from May 14 2 June 07. He had more debridement on May 26, and on June 28 the patient had wide excision of the necrotic lower or abdominal pannus, panniculectomy, and partial closure of the wound. She apparently had [address], and she was discharged to the longterm on July 03. Admitted with infected wound and wound dehiscence Notes reviewed No fever pt states she is doing much better tolerates abx OK regular BMs Antibiotics Zerbaxa Cubicin Lines PIV Past Medical History Reviewed Allergies: Coded Allergies: Biaxin (Verified Allergy, Severe, swelling of face, 05/10/16) Iron (Verified Adverse Reaction, Severe, Constipation, 05/10/16) Morphine (Verified Adverse Reaction, Severe, 06/11/16) renal insufficiency. *MDRO Multi-Drug Resistant Organism (Verified Adverse Reaction, Unknown, ) VRE (abdominal wound) - 07/09/16 MDR-Pseudomonas (abdominal wound) - 07/09/16 Objective . Vital Signs Date Time Temp Pulse Resp B/P Pulse Ox O2 Delivery O2 Flow Rate FiO2 07/22/16 12:00 98.1 84 16 155/67 99 07/22/16 09:15 99 21 07/22/16 08:06 82 07/22/16 08:06 Room Air 07/22/16 08:00 98.2 95 20 180/76 100 07/22/16 04:00 98.1 80 20 127/62 96 07/22/16 00:00 98.0 87 20 181/71 100 07/21/16 20:17 Room Air 07/21/16 20:00 98.1 91 20 166/70 99 07/21/16 19:29 18 07/21/16 17:51 Nasal Cannula 2.00 07/21/16 17:32 18 07/21/16 16:32 100 Room Air 07/21/16 16:00 98.1 84 18 156/72 98 07/21/16 07/21/16 07/22/16 15:00 23:00 07:00 Intake Total 1500 ml 200 ml Balance 1500 ml 200 ml Intake Oral 1500 ml IV Total 200 ml # Voids 3 # Bowel Movements 0 . Laboratory Tests Test 07/20/16 07/22/16 17:12 05:28 White Blood Count 12.0 TH/MM3 8.6 TH/MM3 Red Blood Count 3.26 MIL/MM3 3.03 MIL/MM3 Hemoglobin 9.0 GM/DL 8.5 GM/DL Hematocrit 27.7 % 26.4 % Mean Corpuscular Volume 85.0 FL 87.1 FL Mean Corpuscular Hemoglobin 27.7 PG 28.1 PG Mean Corpuscular Hemoglobin 32.6 % 32.3 % Concent Red Cell Distribution Width 17.3 % 17.8 % Platelet Count 293 TH/MM3 323 TH/MM3 Mean Platelet Volume 7.6 FL 6.6 FL Hematology Comments Neutrophils (%) (Auto) 71.5 % Lymphocytes (%) (Auto) 17.5 % Monocytes (%) (Auto) 6.4 % Eosinophils (%) (Auto) 3.5 % Basophils (%) (Auto) 1.1 % Neutrophils # (Auto) 6.1 TH/MM3 Lymphocytes # (Auto) 1.5 TH/MM3 Monocytes # (Auto) 0.5 TH/MM3 Eosinophils # (Auto) 0.3 TH/MM3 Basophils # (Auto) 0.1 TH/MM3 CBC Comment DIFF FINAL Differential Comment Laboratory Tests Test 07/22/16 05:28 Sodium Level 137 MEQ/L Potassium Level 3.4 MEQ/L Chloride Level 97 MEQ/L Carbon Dioxide Level 29.4 MEQ/L Anion Gap 11 MEQ/L Blood Urea Nitrogen 29 MG/DL Creatinine 4.46 MG/DL Estimat Glomerular Filtration 10 ML/MIN Rate Random Glucose 71 MG/DL Calcium Level 7.5 MG/DL Phosphorus Level 2.7 MG/DL Magnesium Level 1.9 MG/DL Albumin 1.2 GM/DL Physical Exam GENERAL: awake and alert, NAD. SKIN: Cool and dry. No generalized rash. HEENT: EYES: [place] conjunctivae. No scleral icterus. No injection or drainage. Moist oral mucosa. NECK: Supple, nontender, no meningeal signs. Permacath is tunneled in the right IJ, site looks okay CARDIOVASCULAR: Regular rate and rhythm without murmurs, gallops, or rubs. Soft heart sounds. RESPIRATORY: Clear to auscultation. Breath sounds equal bilaterally. No wheezes , rales, or rhonchi. Decreased breath sounds at the bases. GASTROINTESTINAL: Abdomen soft, ,non-tender, nondistended, bowel sounds are present and normoactive. No guarding. There is a very long horizontal incision in low abdomen with sutures and nba in place, R side packed, dry , minimal sertous dc onpacking L side nearly completetely healed + some erythema, minimal tenderness MUSCULOSKELETAL: I+ small amount of LE edema. Has brownish tree bark texture on both LE. No calf tenderness. NEUROLOGICAL: Non-focal. PSYCH: Normal affect, calm and cooperative LINE: No evidence of infection Assessment & Plan Remarks IMPRESSION Wound dehiscence with local wound infection, cellulitis S/P wide excision large abdominal wound and panniculectomy - C/S PSAE and VRE - on Prozac - PSAE S to imipenem - no clx available since 07/09 Morbid obesity ESRD on HD RECOMMENDATION Wound care team following stop Zerbaxa start meropenem, renally adjusted Continue Cubicin, renally adjusted Monitor progress Will see how her abdominal incision look after debridement and decide on course of her Abx dw Dr Stewart bustillos pt, her son at b/s Bel Adorno MD July 22, 2016 15:08
[2016-07-22] MEDS ORDERED: ASP: Documented ESBL, MDR A baumannii or P. aeruginosa PRN (15:15)
[2016-07-22] MEDS ORDERED: MISCELLANEOUS PHARMACY INFORMATION XX PRN (15:15)
[2016-07-22] MEDS: MEROPENEM INJ 500 MG in SODIUM CHLORIDE 0.9% INJ 100 ML IV SCH (17:18)
[2016-07-22] MEDS: ATORVASTATIN 80 MG TAB PO SCH (20:04)
--- NOTE | 2016-07-22 22:47 | HHI.PR ---
Subjective Remarks Patient seen this afternoon. She reports constipation resolved. Denies any chest pain or shortness of breath. Reports surgical pain is controlled. discussed with infectious disease. Will continue on antibiotics. Objective Vital Signs Date Time Temp Pulse Resp B/P Pulse Ox O2 Delivery O2 Flow Rate FiO2 07/22/16 21:56 16 07/22/16 21:21 98 21 07/22/16 20:00 97.5 70 18 187/83 99 07/22/16 19:20 18 07/22/16 16:00 98.2 90 16 123/57 98 07/22/16 12:00 98.1 84 16 155/67 99 07/22/16 09:15 99 21 07/22/16 08:06 82 07/22/16 08:06 Room Air 07/22/16 08:00 98.2 95 20 180/76 100 07/22/16 04:00 98.1 80 20 127/62 96 07/22/16 00:00 98.0 87 20 181/71 100 I/O 07/21/16 07/21/16 07/21/16 07/22/16 07/22/16 07/22/16 07:00 15:00 23:00 07:00 15:00 23:00 Intake Total 600 ml 1500 ml 200 ml Balance 600 ml 1500 ml 200 ml Intake Oral 600 ml 1500 ml IV Total 200 ml # Voids 1 3 # Bowel Movements 0 0 Result Diagram: 07/22/1628 07/22/16527 Objective Remarks GENERAL: patient lying in bed. Awake, alert and oriented 3. SKIN: Warm and dry. right lower quadrant wound with packing in place. Minimal surrounding erythema. HEAD: Normocephalic. EYES: No scleral icterus. No injection or drainage. NECK: Supple, trachea midline. No JVD. CARDIOVASCULAR: Regular rate and rhythm without murmurs, gallops, or rubs. RESPIRATORY: Breath sounds equal bilaterally. No accessory muscle use. GASTROINTESTINAL: Abdomen soft, non-tender, nondistended. MUSCULOSKELETAL: No cyanosis, or edema. BACK: Nontender without obvious deformity. No CVA tenderness. A/P Assessment and Plan Ms. Foley is a 55-year-old female with a known history of CAD with stent placement, CHF, diabetes mellitus, ESRD on hemodialysis, hypertension and spinal stenosis with chronic back pain. Patient had a recent hospitalization from 05/14/16 to 07/03/16 and at that time had a large abdominal wound in her abdominal pannus with cellulitis. During that hospitalization she underwent multiple surgery with excision of the large open wound, debridement. There were several wound cultures done 1 on admission, and another one from her original excisional surgery and it had pseudomonas aeruginosa. Patient received IV antibiotics from 05/14/16-06/07/16. She had more debridement on 05/26/16, and on 06/28/16 the patient had wide excision of the necrotic lower or abdominal pannus, panniculectomy, and partial closure of the wound. She apparently had [address], and she was discharged to the care home on 07/03/16. Admitted with infected wound and wound dehiscence. //Abdominal wound dehiscence //Postop revision 07/19. - Wound cultures growing pseudomonas aeruginose and enterococcus faecium VRE. Blood cultures drawn, NGTD. - ID following, appreciate input. - Change Zerbaxa to 150 mg IV Q8hr. Previously on Primaxin 250 mg IV Q12h 07/12 -07/15, now Dc'd. - Continue wet-to-dry dressing changes as ordered. - Monitor pressure ulcer of coccygeal region. -cont abx per ID - postop mgt per surg svc //Morbid obesity: strongly recommended diet and exercise, weight loss warranted. //Hypertension, controlled today: Continue home medications as indicated. Control pain. If continues to sustain will add hypertensive agent. //Type 2 Diabetes: Continue sliding scale insulin, cover as needed. Encourage healthy eating and compliance with 2200 ADA diabetic diet. Undercutter has seen patient. //Anxiety: Continue Xanax 0.125 mg PO PRN anxiety. //End stage renal disease: On hemodialysis T, TH, Sat. Nephrology following. Creatinine 6.34, BUN 55, GFR 7 on 07/16. Monitor. //Anemia. Follow-up labs tomorrow. //Constipation. resolved s/p laxitives. monitor //Other chronic medical conditions include hyperlipidemia, hypothyroidism, dyslipidemia, depression and spinal stenosis, all are stable at this time. Continue current treatment and medications as indicated. Control pain: Continue Methadone 5 mg PO Q8h scheduled and [place] PO per pain scale. Monitor. //DVT prophylaxis: ac as per surg svc D/w Ramirez Ang MD July 22, 2016 22:47
[2016-07-23] VITALS (7 sets, daily range): BP systolic 140–155; BP diastolic 60–66; PULSE 57–94; RESP 18–20; TEMP 98.2–98.8; O2SAT 95–100
[2016-07-23] MEDS: METHADONE HCL 10 MG TAB PO SCH ×2 (02:59→18:40)
[2016-07-23] MEDS: LEVOTHYROXINE SODIUM 150 MCG TAB PO SCH (05:51)
[2016-07-23] MEDS: ACETAMINOPHEN/HYDROcodone 325 MG/10 MG TAB PO PRN ×4 (05:51→22:54)
[2016-07-23] MEDS: INSULIN NovoLIN REGULAR SUPPLEMENTAL SCALE SQ SCH ×4 (06:33→21:00)
[2016-07-23] MEDS: POVIDONE IODINE 10% SOLN 118 ML BOTTLE TOP SCH (09:00)
[2016-07-23] MEDS: SODIUM HYPOCHLORITE 0.25% 500 ML BTL TOPICAL SCH (09:00)
--- NOTE | 2016-07-23 10:41 | HHI.IDPN ---
Subjective Subjective Remarks Patient is a 55-year-old morbidly obese female, presented to the hospital from the assisted for further evaluation of her multiple complaints of pain. Patient had a recent hospitalization from May 14 to July 03, and at that time she had a large abdominal wound in her abdominal pannus with cellulitis. During that hospitalization she underwent multiple surgery with excision of the large open wound, debridement. There were several wound cultures done 1 on admission, and another one from her original excisional surgery and it had pseudomonas aeruginosa. Patient received IV antibiotics from May 14 2 June 07. He had more debridement on May 26, and on June 28 the patient had wide excision of the necrotic lower or abdominal pannus, panniculectomy, and partial closure of the wound. She apparently had [address], and she was discharged to the assisted on July 03. Admitted with infected wound and wound dehiscence Underwent debridement of multiple wounds 07/19: sacral bone (down to bone), emilee hip and large abdominal wound; no new C/S Notes reviewed No fever Seen during her HD pt states she is doing much better Back on Merem Antibiotics Merem Cubicin Lines PIV Past Medical History Reviewed Allergies: Coded Allergies: Biaxin (Verified Allergy, Severe, swelling of face, 05/10/16) Iron (Verified Adverse Reaction, Severe, Constipation, 05/10/16) Morphine (Verified Adverse Reaction, Severe, 06/11/16) renal insufficiency. *MDRO Multi-Drug Resistant Organism (Verified Adverse Reaction, Unknown, ) VRE (abdominal wound) - 07/09/16 MDR-Pseudomonas (abdominal wound) - 07/09/16 Objective . Vital Signs Date Time Temp Pulse Resp B/P Pulse Ox O2 Delivery O2 Flow Rate FiO2 07/23/16 04:34 82 07/23/16 04:18 16 07/23/16 04:00 98.6 94 20 155/60 98 07/23/16 00:00 98.3 86 18 147/65 98 07/22/16 21:56 16 07/22/16 21:21 98 21 07/22/16 20:05 Room Air 07/22/16 20:00 97.5 70 18 187/83 99 07/22/16 16:00 98.2 90 16 123/57 98 07/22/16 12:00 98.1 84 16 155/67 99 07/22/16 07/22/16 07/23/16 15:00 23:00 07:00 Intake Total 480 ml 120 ml Balance 480 ml 120 ml Intake Oral 480 ml 120 ml # Voids 0 1 # Bowel Movements 0 0 . Laboratory Tests Test 07/22/16 05:28 White Blood Count 8.6 TH/MM3 Red Blood Count 3.03 MIL/MM3 Hemoglobin 8.5 GM/DL Hematocrit 26.4 % Mean Corpuscular Volume 87.1 FL Mean Corpuscular Hemoglobin 28.1 PG Mean Corpuscular Hemoglobin 32.3 % Concent Red Cell Distribution Width 17.8 % Platelet Count 323 TH/MM3 Mean Platelet Volume 6.6 FL Neutrophils (%) (Auto) 71.5 % Lymphocytes (%) (Auto) 17.5 % Monocytes (%) (Auto) 6.4 % Eosinophils (%) (Auto) 3.5 % Basophils (%) (Auto) 1.1 % Neutrophils # (Auto) 6.1 TH/MM3 Lymphocytes # (Auto) 1.5 TH/MM3 Monocytes # (Auto) 0.5 TH/MM3 Eosinophils # (Auto) 0.3 TH/MM3 Basophils # (Auto) 0.1 TH/MM3 CBC Comment DIFF FINAL Differential Comment Laboratory Tests Test 07/22/16 05:28 Sodium Level 137 MEQ/L Potassium Level 3.4 MEQ/L Chloride Level 97 MEQ/L Carbon Dioxide Level 29.4 MEQ/L Anion Gap 11 MEQ/L Blood Urea Nitrogen 29 MG/DL Creatinine 4.46 MG/DL Estimat Glomerular Filtration 10 ML/MIN Rate Random Glucose 71 MG/DL Calcium Level 7.5 MG/DL Phosphorus Level 2.7 MG/DL Magnesium Level 1.9 MG/DL Albumin 1.2 GM/DL Physical Exam GENERAL: awake and alert, NAD. SKIN: Cool and dry. No generalized rash. HEENT: [place] conjunctivae. No scleral icterus. No injection or drainage. Moist oral mucosa. NECK: Supple, nontender, no meningeal signs. Permacath is tunneled in the right IJ, site looks okay CARDIOVASCULAR: Regular rate and rhythm without murmurs, gallops, or rubs. Soft heart sounds. RESPIRATORY: Clear to auscultation. Breath sounds equal bilaterally. No wheezes , rales, or rhonchi. Decreased breath sounds at the bases. GASTROINTESTINAL: Abdomen soft, ,non-tender, nondistended, bowel sounds are present and normoactive. No guarding. There is a very long horizontal incision in low abdomen. Large open wound on R side of that long incision with betadine packing, slough along the incision has been debrided. Erythema and induration better. L part of incision is healing very well. MUSCULOSKELETAL: I+ small amount of LE edema. Has brownish tree bark texture on both LE. No calf tenderness. NEUROLOGICAL: Non-focal. PSYCH: Normal affect, calm and cooperative LINE: No evidence of infection Assessment & Plan Remarks IMPRESSION Wound dehiscence with local wound infection, cellulitis S/P wide excision large abdominal wound and panniculectomy - C/S PSAE and VRE - on Prozac - PSAE S to imipenem - no C/S available since 07/09 Morbid obesity ESRD on HD RECOMMENDATION Wound care team following Patient back on [facility] Also on Cubicin Wound care per plastics Monitor progress Shea Zavala MD July 23, 2016 10:41
[2016-07-23] MEDS: DAPTOMYCIN IV SCH (12:25)
[2016-07-23] MEDS: SODIUM CHLORIDE 0.9% IV SCH (12:25)
[2016-07-23] MEDS: EPOETIN ALFA 10,000 UNITS/ML VIAL IV PRN (12:26)
[2016-07-23] MEDS: HEPARIN SODIUM - IV 10,000 UNITS/10 ML VIAL PRN (12:26)
[2016-07-23] MEDS: GENTAMICIN SULFATE (DIALYSIS USE ONLY) 20 MG/2 ML VIAL IV PRN (12:26)
[2016-07-23] MEDS: SEVELAMER CARBONATE 800 MG TAB PO SCH ×3 (13:00→18:40)
[2016-07-23] MEDS: FLUoxetine HCL 10 MG CAP PO SCH (13:16)
[2016-07-23] MEDS: CALCITRIOL 0.25 MCG CAP PO SCH (13:16)
[2016-07-23] MEDS: CINACALCET HYDROCHLORIDE 30 MG TAB PO SCH (13:17)
[2016-07-23] MEDS: DOCUSATE SODIUM 50 MG/SENNA 8.6 MG TAB PO SCH ×2 (13:17→21:19)
[2016-07-23] MEDS: ASPIRIN EC 81 MG TABEC PO SCH (13:17)
[2016-07-23] MEDS: GABAPENTIN 100 MG CAP PO SCH ×2 (13:17→21:19)
[2016-07-23] MEDS: SODIUM CHLORIDE 0.9% FLUSH 10 ML FLUSH IV FLUSH SCH ×2 (13:38→21:20)
[2016-07-23] MEDS: ALPRAZolam 0.25 MG TAB PO PRN (15:38)
--- NOTE | 2016-07-23 17:45 | HHI.NPPN ---
Subjective General Problems: Anemia, Edema, Hypertension Renal Failure: End Stage Renal Disease History of Present Illness 55-year-old female with past medical history of hypertension, morbid obesity, history of multiple abdominal wall, diabetes mellitus, ischemic heart disease, hypothyroidism, spinal stenosis and end-stage renal disease on hemodialysis three times per week who came to the hospital because of worsening pain in her wound. Additional Remarks Patient is alert, no abd. pain, no SOB. Review of Systems Respiratory Lungs: SOB, Wheeze Cardiovascular Cardiac: GRIFFIN Gastrointestinal Gastrointestinal: Abdominal Pain Objective Data Data 07/22/16 07/23/16 19:00 07:00 Intake Total 600 ml Balance 600 ml Intake Oral 600 ml # Voids 1 # Bowel Movements 0 Vital Signs Date Time Temp Pulse Resp B/P Pulse Ox O2 Delivery O2 Flow Rate FiO2 07/23/16 08:00 98.8 57 20 147/66 99 07/23/16 07:57 95 21 07/23/16 04:34 82 07/23/16 04:18 16 07/23/16 04:00 98.6 94 20 155/60 98 07/23/16 00:00 98.3 86 18 147/65 98 07/22/16 21:56 16 07/22/16 21:21 98 21 07/22/16 20:05 Room Air 07/22/16 20:00 97.5 70 18 187/83 99 -: 07/22/16 0528 07/22/16 0528 Physical Exam General Appearance: No Acute Distress, Comfortable Eyes Eye Exam: Pupils Equal Throat Throat Exam: Oral Mucosa [place] & Moist Neck Neck Exam: Neck Supple Pulmonary Resp Exam: Breath Sounds Equal, No Distress, Rhonchi, Decreased Bases Cardiology CV Exam: Regular, Normal Sinus Rhythm Gastrointestinal/Abdomen GI Exam: Soft, Bowel Sounds Present, Distended Extremeties Extremities Exam: Moderate Edema, Pitting Edema, Dependent Edema Neurologic Neuro Exam: Alert, Awake, Oriented Psychiatric Psych Exam: Appropriate Responses Assessment/Plan Assessment Summary: Anemia of CKD, Hypertension, End Stage Renal Disease Problem List: (1) Anemia in chronic kidney disease (CKD) (2) Anxiety (3) Open wound of abdomen (4) Infected surgical wound (5) Type II diabetes mellitus with neurological manifestations, uncontrolled (6) End stage kidney disease Plan On HD, TTS. BP is stable. wound cultures growing Pseudomonas and Enterococcus. On Epogen for anemia. Transfuse as needed. BP is stable.Surgical wound debridement HD to continue TTS. Has low Albumin, on PO protein supplement. HD done and 1.5 liters removed. She is not eating well as appetite is low, add Megace. I will try to put her on IDPN. Problem Qualifiers (1) Infected surgical wound: Qualified Code: T81.4XXA - Infected surgical wound, initial encounter Valentin Jimenez MD July 23, 2016 17:45
[2016-07-23] MEDS: MEGESTROL ACETATE SUSP 400 MG/10 ML CUP PO SCH (18:40)
[2016-07-23] MEDS: MEROPENEM INJ 500 MG in SODIUM CHLORIDE 0.9% INJ 100 ML IV SCH (18:41)
[2016-07-23] MEDS: ATORVASTATIN 80 MG TAB PO SCH (21:19)
--- NOTE | 2016-07-23 23:00 | HHI.PR ---
Subjective Remarks Patient seen this morning. Patient says she is feeling well. Denies any chest pain or shortness of breath. Reports pain is controlled. Most recent bowel movement yesterday. Objective Vital Signs Date Time Temp Pulse Resp B/P Pulse Ox O2 Delivery O2 Flow Rate FiO2 07/23/16 20:26 98.2 59 19 140/63 100 07/23/16 16:00 98.4 65 20 144/66 98 07/23/16 08:00 98.8 57 20 147/66 99 07/23/16 08:00 61 07/23/16 07:57 95 21 07/23/16 07:00 Room Air 07/23/16 04:34 82 07/23/16 04:18 16 07/23/16 04:00 98.6 94 20 155/60 98 07/23/16 00:00 98.3 86 18 147/65 98 I/O 07/22/16 07/22/16 07/22/16 07/23/16 07/23/16 07/23/16 07:00 15:00 23:00 07:00 15:00 23:00 Intake Total 480 ml 120 ml 720 ml Output Total 1500 ml Balance 480 ml 120 ml -780 ml Intake Oral 480 ml 120 ml 720 ml Hemodialysis 1500 ml # Voids 0 1 0 # Bowel Movements 0 0 0 Result Diagram: 07/22/1652707/22/16527 Objective Remarks GENERAL: patient lying in bed. Awake, alert and oriented 3.no change on exam. SKIN: Warm and dry. right lower quadrant wound with packing in place. Minimal surrounding erythema. HEAD: Normocephalic. EYES: No scleral icterus. No injection or drainage. NECK: Supple, trachea midline. No JVD. CARDIOVASCULAR: Regular rate and rhythm without murmurs, gallops, or rubs. RESPIRATORY: Breath sounds equal bilaterally. No accessory muscle use. GASTROINTESTINAL: Abdomen soft, non-tender, nondistended. MUSCULOSKELETAL: No cyanosis, or edema. BACK: Nontender without obvious deformity. No CVA tenderness. A/P Assessment and Plan Ms. Foley is a 55-year-old female with a known history of CAD with stent placement, CHF, diabetes mellitus, ESRD on hemodialysis, hypertension and spinal stenosis with chronic back pain. Patient had a recent hospitalization from 05/14/16 to 07/03/16 and at that time had a large abdominal wound in her abdominal pannus with cellulitis. During that hospitalization she underwent multiple surgery with excision of the large open wound, debridement. There were several wound cultures done 1 on admission, and another one from her original excisional surgery and it had pseudomonas aeruginosa. Patient received IV antibiotics from 05/14/16-06/07/16. She had more debridement on 05/26/16, and on 06/28/16 the patient had wide excision of the necrotic lower or abdominal pannus, panniculectomy, and partial closure of the wound. She apparently had [address], and she was discharged to the longterm on 07/03/16. Admitted with infected wound and wound dehiscence. //Abdominal wound dehiscence //Postop revision 07/19. - Wound cultures growing pseudomonas aeruginose and enterococcus faecium VRE. Blood cultures drawn, NGTD. - ID following, appreciate input. - Change Zerbaxa to 150 mg IV Q8hr. Previously on Primaxin 250 mg IV Q12h 07/12 -07/15, now Dc'd. - Continue wet-to-dry dressing changes as ordered. - Monitor pressure ulcer of coccygeal region. -cont abx per ID - postop mgt per surg svc //Moderate malnutrition. -megace added 07/23. monitor. //Morbid obesity: strongly recommended diet and exercise, weight loss warranted. //Hypertension, controlled today: Continue home medications as indicated. Control pain. If continues to sustain will add hypertensive agent. //Type 2 Diabetes: Continue sliding scale insulin, cover as needed. Encourage healthy eating and compliance with 2200 ADA diabetic diet. Tooling Engineer has seen patient. //Anxiety: Continue Xanax 0.125 mg PO PRN anxiety. //End stage renal disease: On hemodialysis T, , Fri. Nephrology following. - Monitor. //Anemia. Follow-up labs tomorrow. //Constipation. resolved s/p laxitives. monitor //Other chronic medical conditions include hyperlipidemia, hypothyroidism, dyslipidemia, depression and spinal stenosis, all are stable at this time. Continue current treatment and medications as indicated. Control pain: Continue Methadone 5 mg PO Q8h scheduled and [place] PO per pain scale. Monitor. //DVT prophylaxis: ac as per surg svc D/w Ramirez Ang MD July 23, 2016 23:00
[2016-07-24] VITALS (7 sets, daily range): BP systolic 136–158; BP diastolic 63–84; PULSE 53–67; RESP 18–20; TEMP 97.5–99.5; O2SAT 94–100
[2016-07-24] MEDS: ACETAMINOPHEN/HYDROcodone 325 MG/10 MG TAB PO PRN ×5 (03:07→21:20)
[2016-07-24] MEDS: METHADONE HCL 10 MG TAB PO SCH ×3 (03:08→19:00)
[2016-07-24] MEDS: LEVOTHYROXINE SODIUM 150 MCG TAB PO SCH (06:48)
[2016-07-24] MEDS: INSULIN NovoLIN REGULAR SUPPLEMENTAL SCALE SQ SCH ×4 (06:48→21:00)
[2016-07-24] MEDS: FLUoxetine HCL 10 MG CAP PO SCH (10:05)
[2016-07-24] MEDS: CALCITRIOL 0.25 MCG CAP PO SCH (10:06)
[2016-07-24] MEDS: ASPIRIN EC 81 MG TABEC PO SCH (10:06)
[2016-07-24] MEDS: GABAPENTIN 100 MG CAP PO SCH ×2 (10:06→21:21)
[2016-07-24] MEDS: DOCUSATE SODIUM 50 MG/SENNA 8.6 MG TAB PO SCH ×2 (10:07→21:00)
[2016-07-24] MEDS: SEVELAMER CARBONATE 800 MG TAB PO SCH ×3 (10:07→16:46)
[2016-07-24] MEDS: CINACALCET HYDROCHLORIDE 30 MG TAB PO SCH (10:07)
[2016-07-24] MEDS: MEGESTROL ACETATE SUSP 400 MG/10 ML CUP PO SCH (10:08)
[2016-07-24] MEDS: SODIUM CHLORIDE 0.9% FLUSH 10 ML FLUSH IV FLUSH SCH (10:09)
[2016-07-24] MEDS: SODIUM HYPOCHLORITE 0.25% 500 ML BTL TOPICAL SCH (10:10)
[2016-07-24] MEDS: POVIDONE IODINE 10% SOLN 118 ML BOTTLE TOP SCH (10:10)
[2016-07-24] MEDS: MEROPENEM INJ 500 MG in SODIUM CHLORIDE 0.9% INJ 100 ML IV SCH (16:47)
[2016-07-24] MEDS ORDERED: BENZOCAINE-MENTHOL (SUGAR FREE) 15 MG-3.6 MG LOZENGE BUCCAL PRN (17:15)
--- NOTE | 2016-07-24 17:49 | HHI.NPPN ---
Subjective General Problems: Anemia, Edema, Hypertension Renal Failure: End Stage Renal Disease History of Present Illness 55-year-old female with past medical history of hypertension, morbid obesity, history of multiple abdominal wall, diabetes mellitus, ischemic heart disease, hypothyroidism, spinal stenosis and end-stage renal disease on hemodialysis three times per week who came to the hospital because of worsening pain in her wound. Additional Remarks Patient is alert, no abd. pain, started eating better today. Review of Systems Respiratory Lungs: SOB, Wheeze Cardiovascular Cardiac: GRIFFIN Gastrointestinal Gastrointestinal: Abdominal Pain Objective Data Data 07/23/16 07/24/16 19:00 07:00 Intake Total 720 ml 1150 ml Output Total 1500 ml 400 ml Balance -780 ml 750 ml Intake Oral 720 ml 1150 ml Output Urine Total 400 ml Hemodialysis 1500 ml # Voids 0 2 # Bowel Movements 0 1 Vital Signs Date Time Temp Pulse Resp B/P Pulse Ox O2 Delivery O2 Flow Rate FiO2 07/24/16 16:00 99.5 63 18 136/63 97 07/24/16 12:46 18 07/24/16 12:06 18 07/24/16 12:00 98.2 59 20 158/84 99 07/24/16 08:00 98.6 58 20 153/70 94 07/24/16 08:00 Nasal Cannula 2.00 07/24/16 04:26 98.0 60 18 148/80 98 07/24/16 00:00 98.9 58 19 158/68 98 07/23/16 20:26 98.2 59 19 140/63 100 07/23/16 19:00 Room Air -: 07/22/16 0528 07/22/16 0528 Physical Exam General Appearance: No Acute Distress, Comfortable Eyes Eye Exam: Pupils Equal Throat Throat Exam: Oral Mucosa [place] & Moist Neck Neck Exam: Neck Supple Pulmonary Resp Exam: Breath Sounds Equal, No Distress, Rhonchi, Decreased Bases Cardiology CV Exam: Regular, Normal Sinus Rhythm Gastrointestinal/Abdomen GI Exam: Soft, Bowel Sounds Present, Distended Extremeties Extremities Exam: Moderate Edema, Pitting Edema, Dependent Edema Neurologic Neuro Exam: Alert, Awake, Oriented Psychiatric Psych Exam: Appropriate Responses Assessment/Plan Assessment Summary: Anemia of CKD, Hypertension, End Stage Renal Disease Problem List: (1) Anemia in chronic kidney disease (CKD) (2) Anxiety (3) Open wound of abdomen (4) Infected surgical wound (5) Type II diabetes mellitus with neurological manifestations, uncontrolled (6) End stage kidney disease Plan On HD, TTS. BP is stable. wound cultures growing Pseudomonas and Enterococcus. On Epogen for anemia. Transfuse as needed. BP is stable.Surgical wound debridement HD to continue TTS. Has low Albumin, on PO protein supplement. HD done yesterday. Started on Megace. Albumin is low, will need IDPN. I spoke to Pharmacy to arrange for it, and will call them again tomorrow. Problem Qualifiers (1) Infected surgical wound: Qualified Code: T81.4XXA - Infected surgical wound, initial encounter Valentin Jimenez MD July 24, 2016 17:49
[2016-07-24] MEDS: ATORVASTATIN 80 MG TAB PO SCH (21:20)
--- NOTE | 2016-07-24 23:56 | HHI.PR ---
Subjective Remarks Patient seen this morning around 11 AM. She says she is feeling well. Denies any chest pain or shortness of breath. She does report a mild sore throat, requesting lozenge Objective Vital Signs Date Time Temp Pulse Resp B/P Pulse Ox O2 Delivery O2 Flow Rate FiO2 07/24/16 20:00 97.5 53 20 157/69 100 07/24/16 16:00 99.5 63 18 136/63 97 07/24/16 12:46 18 07/24/16 12:06 18 07/24/16 12:00 98.2 59 20 158/84 99 07/24/16 08:00 98.6 58 20 153/70 94 07/24/16 08:00 Nasal Cannula 2.00 07/24/16 04:26 98.0 60 18 148/80 98 07/24/16 00:00 98.9 58 19 158/68 98 I/O 07/23/16 07/23/16 07/23/16 07/24/16 07/24/16 07/24/16 07:00 15:00 23:00 07:00 15:00 23:00 Intake Total 120 ml 720 ml 1150 ml 1230 ml Output Total 1500 ml 400 ml Balance 120 ml -780 ml 750 ml 1230 ml Intake Oral 120 ml 720 ml 1150 ml 1230 ml Output Urine Total 400 ml Hemodialysis 1500 ml # Voids 1 0 2 0 # Bowel Movements 0 0 1 1 Result Diagram: 07/22/1652707/22/16527 Objective Remarks GENERAL: patient lying in bed. Awake, alert and oriented 3. SKIN: Warm and dry. right lower quadrant wound with packing in place, left lower quadrant healing slowly, left hip dressed and packed.. Minimal surrounding erythema. HEAD: Normocephalic. EYES: No scleral icterus. No injection or drainage. NECK: Supple, trachea midline. No JVD. CARDIOVASCULAR: Regular rate and rhythm without murmurs, gallops, or rubs. RESPIRATORY: Breath sounds equal bilaterally. No accessory muscle use. GASTROINTESTINAL: Abdomen soft, non-tender, nondistended. MUSCULOSKELETAL: No cyanosis, or edema. BACK: Nontender without obvious deformity. No CVA tenderness. A/P Assessment and Plan Ms. Foley is a 55-year-old female with a known history of CAD with stent placement, CHF, diabetes mellitus, ESRD on hemodialysis, hypertension and spinal stenosis with chronic back pain. Patient had a recent hospitalization from 05/14/16 to 07/03/16 and at that time had a large abdominal wound in her abdominal pannus with cellulitis. During that hospitalization she underwent multiple surgery with excision of the large open wound, debridement. There were several wound cultures done 1 on admission, and another one from her original excisional surgery and it had pseudomonas aeruginosa. Patient received IV antibiotics from 05/14/16-06/07/16. She had more debridement on 05/26/16, and on 06/28/16 the patient had wide excision of the necrotic lower or abdominal pannus, panniculectomy, and partial closure of the wound. She apparently had [address], and she was [facility] to the [facility] on 07/[facility]/16. Admitted with infected wound and wound dehiscence. //Abdominal wound dehiscence //Postop revision 07/19. - Wound cultures growing pseudomonas aeruginose and enterococcus faecium VRE. Blood cultures drawn, NGTD. - ID following, appreciate input. - Change Zerbaxa to 150 mg IV Q8hr. Previously on Primaxin 250 mg IV Q12h 07/12 -07/15, now Dc'd. - Continue wet-to-dry dressing changes as ordered. - Monitor pressure ulcer of coccygeal region. -cont abx per ID - postop mgt per surg svc //Moderate malnutrition. -megace added 07/23. monitor. //sore thraot. lozenge added 08/24 //Morbid obesity: strongly recommended diet and exercise, weight loss warranted. //Hypertension, controlled today: Continue home medications as indicated. Control pain. If continues to sustain will add hypertensive agent. //Type 2 Diabetes: Continue sliding scale insulin, cover as needed. Encourage healthy eating and compliance with 2200 ADA diabetic diet. Grade School Teacher has seen patient. //Anxiety: Continue Xanax 0.125 mg PO PRN anxiety. //End stage renal disease: On hemodialysis T, , Sat. Nephrology following. - Monitor. //Anemia. stable. Follow. //Constipation. resolved s/p laxitives. monitor //Other chronic medical conditions include hyperlipidemia, hypothyroidism, dyslipidemia, depression and spinal stenosis, all are stable at this time. Continue current treatment and medications as indicated. Control pain: Continue Methadone 5 mg PO Q8h scheduled and [place] PO per pain scale. Monitor. //DVT prophylaxis: ac as per surg svc D/w Ramirez Ang MD July 24, 2016 23:56
[2016-07-25] VITALS (8 sets, daily range): BP systolic 108–176; BP diastolic 55–68; PULSE 54–110; RESP 18–20; TEMP 97.2–98.9; O2SAT 98–100
[2016-07-25] MEDS: SODIUM CHLORIDE 0.9% FLUSH 10 ML FLUSH IV FLUSH SCH ×3 (03:39→21:00)
[2016-07-25] MEDS: METHADONE HCL 10 MG TAB PO SCH ×4 (03:39→20:00)
[2016-07-25] MEDS: ACETAMINOPHEN/HYDROcodone 325 MG/10 MG TAB PO PRN ×3 (05:42→18:14)
[2016-07-25] MEDS: LEVOTHYROXINE SODIUM 150 MCG TAB PO SCH (05:42)
[2016-07-25] MEDS: INSULIN NovoLIN REGULAR SUPPLEMENTAL SCALE SQ SCH ×4 (05:45→20:01)
[2016-07-25] MEDS: SEVELAMER CARBONATE 800 MG TAB PO SCH ×3 (09:00→18:14)
[2016-07-25] MEDS: DOCUSATE SODIUM 50 MG/SENNA 8.6 MG TAB PO SCH ×2 (09:00→20:01)
[2016-07-25] MEDS: HEPARIN SODIUM - IV 10,000 UNITS/10 ML VIAL PRN (11:19)
[2016-07-25] MEDS: EPOETIN ALFA 10,000 UNITS/ML VIAL IV PRN (11:19)
[2016-07-25] MEDS: GENTAMICIN SULFATE (DIALYSIS USE ONLY) 20 MG/2 ML VIAL IV PRN (11:19)
[2016-07-25] MEDS: SODIUM CHLORIDE 0.9% IV SCH (11:20)
[2016-07-25] MEDS: DAPTOMYCIN IV SCH (11:20)
--- NOTE | 2016-07-25 12:37 | HHI.NPPN ---
Subjective General Problems: Anemia, Edema, Hypertension Renal Failure: End Stage Renal Disease History of Present Illness 55-year-old female with past medical history of hypertension, morbid obesity, history of multiple abdominal wall, diabetes mellitus, ischemic heart disease, hypothyroidism, spinal stenosis and end-stage renal disease on hemodialysis three times per week who came to the hospital because of worsening pain in her wound. Additional Remarks Patient is alert, seen during HD, feeling. Review of Systems Respiratory Lungs: SOB, Wheeze Cardiovascular Cardiac: GRIFFIN Gastrointestinal Gastrointestinal: Abdominal Pain Objective Data Data 07/24/16 07/25/16 19:00 07:00 Intake Total 1230 ml 960 ml Balance 1230 ml 960 ml Intake Oral 1230 ml 960 ml # Voids 0 # Bowel Movements 1 Vital Signs Date Time Temp Pulse Resp B/P Pulse Ox O2 Delivery O2 Flow Rate FiO2 07/25/16 08:13 98.2 89 18 123/62 98 07/25/16 07:59 82 07/25/16 07:20 Room Air 07/25/16 04:00 98.9 57 20 165/68 100 07/25/16 00:00 97.2 54 20 132/62 99 07/24/16 20:19 67 07/24/16 20:00 97.5 53 20 157/69 100 07/24/16 20:00 Room Air 07/24/16 16:00 99.5 63 18 136/63 97 07/24/16 12:46 18 -: 07/22/16 0528 07/22/16 0528 Physical Exam General Appearance: No Acute Distress, Comfortable Eyes Eye Exam: Pupils Equal Throat Throat Exam: Oral Mucosa [place] & Moist Neck Neck Exam: Neck Supple Pulmonary Resp Exam: Breath Sounds Equal, No Distress, Rhonchi, Decreased Bases Cardiology CV Exam: Regular, Normal Sinus Rhythm Gastrointestinal/Abdomen GI Exam: Soft, Bowel Sounds Present, Distended Extremeties Extremities Exam: Moderate Edema, Pitting Edema, Dependent Edema Neurologic Neuro Exam: Alert, Awake, Oriented Psychiatric Psych Exam: Appropriate Responses Assessment/Plan Assessment Summary: Anemia of CKD, Hypertension, End Stage Renal Disease Problem List: (1) Anemia in chronic kidney disease (CKD) (2) Anxiety (3) Open wound of abdomen (4) Infected surgical wound (5) Type II diabetes mellitus with neurological manifestations, uncontrolled (6) End stage kidney disease Plan On HD, TTS. BP is stable. wound cultures growing Pseudomonas and Enterococcus. On Epogen for anemia. Transfuse as needed. BP is stable.Surgical wound debridement HD to continue TTS. Has low Albumin, on PO protein supplement. HD now, remove fluid as tolerated. Her Albumin is low, on PO supplement, also started on Megace and appetite is better. I will try to arrange IDPN. Problem Qualifiers (1) Infected surgical wound: Qualified Code: T81.4XXA - Infected surgical wound, initial encounter Valentin Jimenez MD July 25, 2016 12:37
[2016-07-25] MEDS: FLUoxetine HCL 10 MG CAP PO SCH (12:52)
[2016-07-25] MEDS: CINACALCET HYDROCHLORIDE 30 MG TAB PO SCH (12:53)
[2016-07-25] MEDS: CALCITRIOL 0.25 MCG CAP PO SCH (12:53)
[2016-07-25] MEDS: MEGESTROL ACETATE SUSP 400 MG/10 ML CUP PO SCH (12:53)
[2016-07-25] MEDS: ASPIRIN EC 81 MG TABEC PO SCH (12:53)
[2016-07-25] MEDS: GABAPENTIN 100 MG CAP PO SCH ×2 (12:53→20:00)
[2016-07-25] MEDS: SODIUM HYPOCHLORITE 0.25% 500 ML BTL TOPICAL SCH (12:54)
[2016-07-25] MEDS: POVIDONE IODINE 10% SOLN 118 ML BOTTLE TOP SCH (12:55)
--- NOTE | 2016-07-25 13:23 | HHI.IDPN ---
Subjective Subjective Remarks Patient is a 55-year-old morbidly obese female, presented to the hospital from the senior care for further evaluation of her multiple complaints of pain. Patient had a recent hospitalization from May 14 to July 03, and at that time she had a large abdominal wound in her abdominal pannus with cellulitis. During that hospitalization she underwent multiple surgery with excision of the large open wound, debridement. There were several wound cultures done 1 on admission, and another one from her original excisional surgery and it had pseudomonas aeruginosa. Patient received IV antibiotics from May 14 2 June 07. He had more debridement on May 26, and on June 28 the patient had wide excision of the necrotic lower or abdominal pannus, panniculectomy, and partial closure of the wound. She apparently had [address], and she was discharged to the senior care on July 03. Admitted with infected wound and wound dehiscence Underwent debridement of multiple wounds 07/19: sacral bone (down to bone), emilee hip and large abdominal wound; no new C/S Notes reviewed D/W Dr Meyers No fever Antibiotics Merem Cubicin Lines PIV Past Medical History Reviewed Allergies: Coded Allergies: Biaxin (Verified Allergy, Severe, swelling of face, 05/10/16) Iron (Verified Adverse Reaction, Severe, Constipation, 05/10/16) Morphine (Verified Adverse Reaction, Severe, 06/11/16) renal insufficiency. *MDRO Multi-Drug Resistant Organism (Verified Adverse Reaction, Unknown, ) VRE (abdominal wound) - 07/09/16 MDR-Pseudomonas (abdominal wound) - 07/09/16 Objective . Vital Signs Date Time Temp Pulse Resp B/P Pulse Ox O2 Delivery O2 Flow Rate FiO2 07/25/16 12:55 61 176/66 07/25/16 08:13 98.2 89 18 123/62 98 07/25/16 07:59 82 07/25/16 07:20 Room Air 07/25/16 04:00 98.9 57 20 165/68 100 07/25/16 00:00 97.2 54 20 132/62 99 07/24/16 20:19 67 07/24/16 20:00 97.5 53 20 157/69 100 07/24/16 20:00 Room Air 07/24/16 16:00 99.5 63 18 136/63 97 07/24/16 07/24/16 07/25/16 15:00 23:00 07:00 Intake Total 1230 ml 480 ml 480 ml Balance 1230 ml 480 ml 480 ml Intake Oral 1230 ml 480 ml 480 ml # Voids 0 # Bowel Movements 1 Physical Exam GENERAL: awake and alert, NAD. SKIN: Cool and dry. No generalized rash. HEENT: [place] conjunctivae. No scleral icterus. No injection or drainage. Moist oral mucosa. NECK: Supple, nontender. Permacath is tunneled in the right IJ, site looks okay CARDIOVASCULAR: Regular rate and rhythm without murmurs, gallops, or rubs. Soft heart sounds. RESPIRATORY: Clear to auscultation. Breath sounds equal bilaterally. No wheezes , rales, or rhonchi. Decreased breath sounds at the bases. GASTROINTESTINAL: Abdomen soft, ,non-tender, nondistended, bowel sounds are present and normoactive. No guarding. There is a very long horizontal incision in low abdomen. Large open wound on R side of that long incision with betadine packing, slough along the incision has been debrided. Erythema and induration better. L part of incision is healing very well. MUSCULOSKELETAL: I+ small amount of LE edema. Has brownish tree bark texture on both LE. No calf tenderness. NEUROLOGICAL: Non-focal. PSYCH: Normal affect, calm and cooperative LINE: No evidence of infection Assessment & Plan Remarks IMPRESSION Wound dehiscence with local wound infection, cellulitis S/P wide excision large abdominal wound and panniculectomy - C/S PSAE and VRE - on Prozac - PSAE S to imipenem - no C/S available since 07/09 Morbid obesity ESRD on HD RECOMMENDATION Wound care team following Continue Merem Continue Cubicin Wound care per plastics Monitor progress D/W Dr Meyers - plan 10-14 days IV Abx from date of debridement What she need is wound care, and improve nutritional status for better wound healing Shea Zavala MD July 25, 2016 13:22
--- NOTE | 2016-07-25 14:53 | PD.PLAS.PN ---
Subjective Remarks Patient is status post debridement of wounds to abdomen, left hip, right hip, and coccyx on 07/19/16. Objective Vital Signs Date Time Temp Pulse Resp B/P Pulse Ox O2 Delivery O2 Flow Rate FiO2 07/25/16 12:55 97.8 99 07/25/16 12:55 61 176/66 07/25/16 08:13 98.2 89 18 123/62 98 07/25/16 07:59 82 07/25/16 07:20 Room Air 07/25/16 04:00 98.9 57 20 165/68 100 07/25/16 00:00 97.2 54 20 132/62 99 07/24/16 20:19 67 07/24/16 20:00 97.5 53 20 157/69 100 07/24/16 20:00 Room Air 07/24/16 16:00 99.5 63 18 136/63 97 I/O 07/24/16 07/24/16 07/24/16 07/25/16 07/25/16 07/25/16 07:00 15:00 23:00 07:00 15:00 23:00 Intake Total 1150 ml 1230 ml 480 ml 480 ml Output Total 400 ml 1500 ml Balance 750 ml 1230 ml 480 ml 480 ml -1500 ml Intake Oral 1150 ml 1230 ml 480 ml 480 ml Output Urine Total 400 ml Hemodialysis 1500 ml # Voids 2 0 # Bowel Movements 1 1 Result Diagram: 07/22/16 0528 07/22/16 0528 Exam Findings Patient is sitting comfortably in bed. Assessment and Plan Diagnosis: (1) Pressure ulcer of coccygeal region (2) Wound dehiscence, surgical Assessment and Plan Wounds are not visualized at today's visit. Chart is reviewed and the patient is making progress with PT. She will continue to progress with PT as able. Continue with dressing changes as ordered. We also discussed possible administration of TPN. The exam, history, and the medical decision-making described in the above note were completed with the assistance of the mid-level provider. I reviewed and agree with the findings presented. I attest that I had a [id number] encounter with the patient on the same day, and personally performed and documented my assessment and findings in the medical record. Lisa Meyers M.D. Dana Romero July 25, 2016 14:53
[2016-07-25 15:12] LABS: AUTOMATED NEUTROPHIL # 8.7 TH/MM3 (1.8-7.7); BASOPHIL # 0.1 TH/MM3 (0-0.2); BASOPHIL % 0.8 % (0.0-2.0); EOSINOPHIL # 0.2 TH/MM3 (0-0.4); EOSINOPHIL % 2.2 % (0.0-4.0); HEMATOCRIT 30.5 % (35.0-46.0); HEMO FLAGS DIFF FINAL; LYMPH % 12.7 % (9.0-44.0); LYMPHOCYTE # 1.4 TH/MM3 (1.0-4.8); MEAN CELL VOLUME 87.1 FL (80.0-100.0); MEAN CORPUSCULAR HEMOGLOBIN 27.3 PG (27.0-34.0); MEAN CORPUSCULAR HGB CONC 31.4 % (32.0-36.0); MONO % 5.8 % (0.0-8.0); NEUT % 78.5 % (16.0-70.0); PLATELET COUNT 422 TH/MM3 (150-450); RED BLOOD COUNT 3.51 MIL/MM3 (4.00-5.30); RED CELL DISTRIBUTION WIDTH 18.8 % (11.6-17.2); WHITE BLOOD COUNT 11.1 TH/MM3 (4.0-11.0)
[2016-07-25] MEDS: MEROPENEM INJ 500 MG in SODIUM CHLORIDE 0.9% INJ 100 ML IV SCH (16:12)
--- NOTE | 2016-07-25 19:12 | HHI.PR ---
Subjective Remarks patient seen this morning. Says she is feeling all right.denies any chest pain or shortness of breath. Sore throat slightly improved from yesterday.no difficult swallowing. Objective Vital Signs Date Time Temp Pulse Resp B/P Pulse Ox O2 Delivery O2 Flow Rate FiO2 07/25/16 16:07 98.1 61 19 131/59 100 07/25/16 12:55 97.8 99 07/25/16 12:55 61 176/66 07/25/16 08:13 98.2 89 18 123/62 98 07/25/16 07:59 82 07/25/16 07:20 Room Air 07/25/16 04:00 98.9 57 20 165/68 100 07/25/16 00:00 97.2 54 20 132/62 99 07/24/16 20:19 67 07/24/16 20:00 97.5 53 20 157/69 100 07/24/16 20:00 Room Air I/O 07/24/16 07/24/16 07/24/16 07/25/16 07/25/16 07/25/16 07:00 15:00 23:00 07:00 15:00 23:00 Intake Total 1150 ml 1230 ml 480 ml 480 ml 1080 ml Output Total 400 ml 1500 ml Balance 750 ml 1230 ml 480 ml 480 ml -420 ml Intake Oral 1150 ml 1230 ml 480 ml 480 ml 1080 ml Output Urine Total 400 ml Hemodialysis 1500 ml # Voids 2 0 1 # Bowel Movements 1 1 1 Result Diagram: 07/25/16 1446 07/22/16 0528 Objective Remarks GENERAL: patient lying in bed. Awake, alert and oriented 3. SKIN: Warm and dry. right lower quadrant wound dressed, left lower quadrant healing slowlyas before., left hip dressed and packed.. Minimal surrounding erythema. HEAD: Normocephalic. EYES: No scleral icterus. No injection or drainage. NECK: Supple, trachea midline. No JVD. CARDIOVASCULAR: Regular rate and rhythm without murmurs, gallops, or rubs. RESPIRATORY: Breath sounds equal bilaterally. No accessory muscle use. GASTROINTESTINAL: Abdomen soft, non-tender, nondistended. MUSCULOSKELETAL: No cyanosis, or edema. BACK: Nontender without obvious deformity. No CVA tenderness. A/P Assessment and Plan Ms. Foley is a 55-year-old female with a known history of CAD with stent placement, CHF, diabetes mellitus, ESRD on hemodialysis, hypertension and spinal stenosis with chronic back pain. Patient had a recent hospitalization from 05/14/16 to 07/03/16 and at that time had a large abdominal wound in her abdominal pannus with cellulitis. During that hospitalization she underwent multiple surgery with excision of the large open wound, debridement. There were several wound cultures done 1 on admission, and another one from her original excisional surgery and it had pseudomonas aeruginosa. Patient received IV antibiotics from 05/14/16-06/07/16. She had more debridement on 05/26/16, and on 06/28/16 the patient had wide excision of the necrotic lower or abdominal pannus, panniculectomy, and partial closure of the wound. She apparently had [address], and she was discharged to the [facility] on 07/03/16. Admitted with infected wound and wound dehiscence. //Abdominal wound dehiscence //Postop revision 07/19. - Wound cultures growing pseudomonas aeruginose and enterococcus faecium VRE. Blood cultures drawn, NGTD. - ID following, appreciate input. - Change Zerbaxa to 150 mg IV Q8hr. Previously on Primaxin 250 mg IV Q12h 07/12 -07/15, now Dc'd. - Continue wet-to-dry dressing changes as ordered. - Monitor pressure ulcer of coccygeal region. -cont abx per ID - postop mgt per surg svc //Moderate malnutrition. -megace added 07/23. -Nepro added 07/25. Monitor. //sore thraot. lozenge added 08/24 -Improving. Monitor. //Morbid obesity: strongly recommended diet and exercise, weight loss warranted. //Hypertension, controlled today: Continue home medications as indicated. Control pain. If continues to sustain will add hypertensive agent. //Type 2 Diabetes: Continue sliding scale insulin, cover as needed. Encourage healthy eating and compliance with 2200 ADA diabetic diet. Chain Machine Operator has seen patient. //Anxiety: Continue Xanax 0.125 mg PO PRN anxiety. //End stage renal disease: On hemodialysis T, TH, Sat. Nephrology following. - Monitor. //Anemia. stable. Follow //Constipation. resolved s/p laxitives. monitor //Other chronic medical conditions include hyperlipidemia, hypothyroidism, dyslipidemia, depression and spinal stenosis, all are stable at this time. Continue current treatment and medications as indicated. Control pain: Continue Methadone 5 mg PO Q8h scheduled and [place] PO per pain scale. Monitor. //DVT prophylaxis: ac as per surg svc D/w Ramirez Ang MD July 25, 2016 19:12
[2016-07-25] MEDS: ATORVASTATIN 80 MG TAB PO SCH (20:00)
[2016-07-26] VITALS (7 sets, daily range): BP systolic 118–161; BP diastolic 56–73; PULSE 54–64; RESP 16–20; TEMP 97.7–98.9; O2SAT 97–100
[2016-07-26] MEDS: ACETAMINOPHEN/HYDROcodone 325 MG/10 MG TAB PO PRN ×4 (02:46→21:45)
[2016-07-26] MEDS: METHADONE HCL 10 MG TAB PO SCH ×3 (03:00→18:14)
[2016-07-26] MEDS: LEVOTHYROXINE SODIUM 150 MCG TAB PO SCH (05:27)
[2016-07-26] MEDS: INSULIN NovoLIN REGULAR SUPPLEMENTAL SCALE SQ SCH ×4 (05:28→21:00)
[2016-07-26] MEDS: FLUoxetine HCL 10 MG CAP PO SCH (07:43)
[2016-07-26] MEDS: SODIUM CHLORIDE 0.9% FLUSH 10 ML FLUSH IV FLUSH SCH ×2 (07:43→21:44)
[2016-07-26] MEDS: MEGESTROL ACETATE SUSP 400 MG/10 ML CUP PO SCH (07:44)
[2016-07-26] MEDS: CALCITRIOL 0.25 MCG CAP PO SCH (07:44)
[2016-07-26] MEDS: ASPIRIN EC 81 MG TABEC PO SCH (07:44)
[2016-07-26] MEDS: CINACALCET HYDROCHLORIDE 30 MG TAB PO SCH (07:44)
[2016-07-26] MEDS: SEVELAMER CARBONATE 800 MG TAB PO SCH ×3 (07:45→16:31)
[2016-07-26] MEDS: GABAPENTIN 100 MG CAP PO SCH ×2 (07:45→21:44)
[2016-07-26] MEDS: DOCUSATE SODIUM 50 MG/SENNA 8.6 MG TAB PO SCH ×2 (07:48→21:00)
[2016-07-26] MEDS: SODIUM HYPOCHLORITE 0.25% 500 ML BTL TOPICAL SCH (07:48)
[2016-07-26] MEDS: POVIDONE IODINE 10% SOLN 118 ML BOTTLE TOP SCH (07:48)
--- NOTE | 2016-07-26 11:20 | HHI.NPPN ---
Subjective General Problems: Anemia, Edema, Hypertension Renal Failure: End Stage Renal Disease History of Present Illness 55-year-old female with past medical history of hypertension, morbid obesity, history of multiple abdominal wall, diabetes mellitus, ischemic heart disease, hypothyroidism, spinal stenosis and end-stage renal disease on hemodialysis three times per week who came to the hospital because of worsening pain in her wound. Additional Remarks Patient is alert, abd. pain is better, appetite improving. Review of Systems Respiratory Lungs: SOB, Wheeze Cardiovascular Cardiac: GRIFFIN Gastrointestinal Gastrointestinal: Abdominal Pain Objective Data Data 07/25/16 07/26/16 19:00 07:00 Intake Total 1080 ml 480 ml Output Total 1500 ml Balance -420 ml 480 ml Intake Oral 1080 ml 480 ml Hemodialysis 1500 ml # Voids 1 1 # Bowel Movements 1 1 Vital Signs Date Time Temp Pulse Resp B/P Pulse Ox O2 Delivery O2 Flow Rate FiO2 07/26/16 08:00 98.9 54 18 161/67 100 07/26/16 07:56 62 07/26/16 07:50 Room Air 07/26/16 04:00 98.5 54 16 128/59 98 07/26/16 00:00 98.6 56 16 128/61 97 07/26/16 00:00 Room Air 07/25/16 20:28 68 07/25/16 20:00 Room Air 07/25/16 20:00 98.4 59 18 108/55 100 07/25/16 16:07 98.1 61 19 131/59 100 07/25/16 12:55 97.8 99 07/25/16 12:55 61 176/66 -: 07/25/16 1446 07/22/16 0528 Physical Exam General Appearance: No Acute Distress, Comfortable Eyes Eye Exam: Pupils Equal Throat Throat Exam: Oral Mucosa [place] & Moist Neck Neck Exam: Neck Supple Pulmonary Resp Exam: Breath Sounds Equal, No Distress, Rhonchi, Decreased Bases Cardiology CV Exam: Regular, Normal Sinus Rhythm Gastrointestinal/Abdomen GI Exam: Soft, Bowel Sounds Present, Distended Extremeties Extremities Exam: Moderate Edema, Pitting Edema, Dependent Edema Neurologic Neuro Exam: Alert, Awake, Oriented Psychiatric Psych Exam: Appropriate Responses Assessment/Plan Assessment Summary: Anemia of CKD, Hypertension, End Stage Renal Disease Problem List: (1) Anemia in chronic kidney disease (CKD) (2) Anxiety (3) Open wound of abdomen (4) Infected surgical wound (5) Type II diabetes mellitus with neurological manifestations, uncontrolled (6) End stage kidney disease Plan On HD, TTS. BP is stable. wound cultures growing Pseudomonas and Enterococcus. On Epogen for anemia. Transfuse as needed. BP is stable.Surgical wound debridement HD to continue TTS. Has low Albumin, on PO protein supplement. Her Albumin is low, on PO supplement, also started on Megace and appetite is better. I will try to arrange IDPN, spoke to pharmacy, they will call me. HD will be in AM. Problem Qualifiers (1) Infected surgical wound: Qualified Code: T81.4XXA - Infected surgical wound, initial encounter Valentin Jimenez MD July 26, 2016 11:20
[2016-07-26] MEDS: MEROPENEM INJ 500 MG in SODIUM CHLORIDE 0.9% INJ 100 ML IV SCH (16:31)
[2016-07-26] MEDS: ATORVASTATIN 80 MG TAB PO SCH (21:44)
--- NOTE | 2016-07-26 23:40 | HHI.PR ---
Subjective Remarks patient seen thisafternoon. Says she feels all right. Positive bowel movement yesterday. No nausea or vomiting. Patient says that her nurse was wondering if we can do anything about the thick skin on her legs, patient is wondering if it can be removed. She has a history of ulcers in the past. We discussed that although the skin is thickened, there is no broken skin. . Objective Vital Signs Date Time Temp Pulse Resp B/P Pulse Ox O2 Delivery O2 Flow Rate FiO2 07/26/16 20:00 97.7 64 18 118/56 100 07/26/16 16:00 98.5 60 20 161/70 98 07/26/16 12:00 98.3 58 20 131/73 98 07/26/16 08:00 98.9 54 18 161/67 100 07/26/16 07:56 62 07/26/16 07:50 Room Air 07/26/16 04:00 98.5 54 16 128/59 98 07/26/16 00:00 98.6 56 16 128/61 97 07/26/16 00:00 Room Air I/O 07/25/16 07/25/16 07/25/16 07/26/16 07/26/16 07/26/16 07:00 15:00 23:00 07:00 15:00 23:00 Intake Total 480 ml 1080 ml 240 ml 240 ml 240 ml 240 ml Output Total 1500 ml Balance 480 ml -420 ml 240 ml 240 ml 240 ml 240 ml Intake Oral 480 ml 1080 ml 240 ml 240 ml 240 ml 240 ml Hemodialysis 1500 ml # Voids 1 1 0 1 0 # Bowel Movements 1 0 1 0 1 Result Diagram: 07/25/16 1446 07/22/16 0528 Objective Remarks GENERAL: patient lying in bed. Awake, alert and oriented 3. SKIN: Warm and dry. right lower quadrant wound dressed, left lower quadrant healing slowlyas before., left hip dressed and packed.. Minimal surrounding erythema. HEAD: Normocephalic. EYES: No scleral icterus. No injection or drainage. NECK: Supple, trachea midline. No JVD. CARDIOVASCULAR: Regular rate and rhythm without murmurs, gallops, or rubs. RESPIRATORY: Breath sounds equal bilaterally. No accessory muscle use. GASTROINTESTINAL: Abdomen soft, non-tender, nondistended. MUSCULOSKELETAL: No cyanosis, thick hyperkeratotic skinbilateral lower extremity is. Minimal edema. No broken skin. As before. BACK: Nontender without obvious deformity. No CVA tenderness. A/P Assessment and Plan Ms. Foley is a 55-year-old female with a known history of CAD with stent placement, CHF, diabetes mellitus, ESRD on hemodialysis, hypertension and spinal stenosis with chronic back pain. Patient had a recent hospitalization from 05/14/16 to 07/03/16 and at that time had a large abdominal wound in her abdominal pannus with cellulitis. During that hospitalization she underwent multiple surgery with excision of the large open wound, debridement. There were several wound cultures done 1 on admission, and another one from her original excisional surgery and it had pseudomonas aeruginosa. Patient received IV antibiotics from 05/14/16-06/07/16. She had more debridement on 05/26/16, and on 06/28/16 the patient had wide excision of the necrotic lower or abdominal pannus, panniculectomy, and partial closure of the wound. She apparently had [address], and she was discharged to the [facility] on 07/03/16. Admitted with infected wound and wound dehiscence. //Abdominal wound dehiscence //Postop revision 07/19. - Wound cultures growing pseudomonas aeruginose and enterococcus faecium VRE. Blood cultures drawn, NGTD. - ID following, appreciate input. - Change Zerbaxa to 150 mg IV Q8hr. Previously on Primaxin 250 mg IV Q12h 07/12 -07/15, now Dc'd. - Continue wet-to-dry dressing changes as ordered. - Monitor pressure ulcer of coccygeal region. -cont abx per ID - postop mgt per surg svc //Moderate malnutrition. -megace added 07/23. -Nepro added 07/25. Monitor. //sore thraot. lozenge added 08/24 -Improving. Monitor. //Morbid obesity: strongly recommended diet and exercise, weight loss warranted. //Hypertension, controlled today: Continue home medications as indicated. Control pain. If continues to sustain will add hypertensive agent. //Type 2 Diabetes: Continue sliding scale insulin, cover as needed. Encourage healthy eating and compliance with 2200 ADA diabetic diet. Manager Of Case has seen patient. //Anxiety: Continue Xanax 0.125 mg PO PRN anxiety. //End stage renal disease: On hemodialysis T, TH, Sat. Nephrology following. - Monitor. //Anemia. stable. Follow //Dry skin on legs. No signs of infection or broken skin. We'll avoid any aggressive treatment. The risk of injury. //Constipation. resolved s/p laxitives. monitor //Other chronic medical conditions include hyperlipidemia, hypothyroidism, dyslipidemia, depression and spinal stenosis, all are stable at this time. Continue current treatment and medications as indicated. Control pain: Continue Methadone 5 mg PO Q8h scheduled and [place] PO per pain scale. Monitor. //DVT prophylaxis: ac as per surg svc D/w Ramirez Ang MD July 26, 2016 23:40
[2016-07-27] VITALS: BP 152/67; PULSE 59; RESP 18; TEMP 98; O2SAT 100
[2016-07-27] MEDS: METHADONE HCL 10 MG TAB PO SCH ×3 (03:11→20:41)
[2016-07-27 04:00] VITALS: BP 170/88; PULSE 59; RESP 18; TEMP 98.1; O2SAT 99
[2016-07-27] MEDS: LEVOTHYROXINE SODIUM 150 MCG TAB PO SCH (05:43)
[2016-07-27] MEDS: ACETAMINOPHEN/HYDROcodone 325 MG/10 MG TAB PO PRN ×4 (05:43→22:29)
[2016-07-27] MEDS: INSULIN NovoLIN REGULAR SUPPLEMENTAL SCALE SQ SCH ×4 (05:47→20:43)
[2016-07-27 08:00] VITALS: BP 180/73; PULSE 58; PULSE 61; RESP 18; TEMP 98; O2SAT 100
[2016-07-27] MEDS: SEVELAMER CARBONATE 800 MG TAB PO SCH ×4 (09:00→17:44)
[2016-07-27] MEDS: DOCUSATE SODIUM 50 MG/SENNA 8.6 MG TAB PO SCH ×2 (09:00→20:42)
--- NOTE | 2016-07-27 09:54 | HHI.NPPN ---
Subjective General Problems: Anemia, Edema, Hypertension Renal Failure: End Stage Renal Disease History of Present Illness 55-year-old female with past medical history of hypertension, morbid obesity, history of multiple abdominal wall, diabetes mellitus, ischemic heart disease, hypothyroidism, spinal stenosis and end-stage renal disease on hemodialysis three times per week who came to the hospital because of worsening pain in her wound. Additional Remarks Patient is alert, now on HD, feeling better. Review of Systems Respiratory Lungs: SOB, Wheeze Cardiovascular Cardiac: GRIFFIN Gastrointestinal Gastrointestinal: Abdominal Pain Objective Data Data 07/26/16 07/27/16 18:59 06:59 Intake Total 240 ml 720 ml Balance 240 ml 720 ml Intake Oral 240 ml 720 ml # Voids 1 0 # Bowel Movements 0 1 Vital Signs Date Time Temp Pulse Resp B/P Pulse Ox O2 Delivery O2 Flow Rate FiO2 07/27/16 08:00 Room Air 07/27/16 08:00 98.0 61 18 180/73 100 07/27/16 04:00 98.1 59 18 170/88 99 07/27/16 02:00 Room Air 07/27/16 00:00 98.0 59 18 152/67 100 07/26/16 21:40 Room Air 07/26/16 20:00 58 07/26/16 20:00 97.7 64 18 118/56 100 07/26/16 16:00 98.5 60 20 161/70 98 07/26/16 12:00 98.3 58 20 131/73 98 -: 07/25/16 1446 Physical Exam General Appearance: No Acute Distress, Comfortable Eyes Eye Exam: Pupils Equal Throat Throat Exam: Oral Mucosa [place] & Moist Neck Neck Exam: Neck Supple Pulmonary Resp Exam: Breath Sounds Equal, No Distress, Rhonchi, Decreased Bases Cardiology CV Exam: Regular, Normal Sinus Rhythm Gastrointestinal/Abdomen GI Exam: Soft, Bowel Sounds Present, Distended Extremeties Extremities Exam: Moderate Edema, Pitting Edema, Dependent Edema Neurologic Neuro Exam: Alert, Awake, Oriented Psychiatric Psych Exam: Appropriate Responses Assessment/Plan Assessment Summary: Anemia of CKD, Hypertension, End Stage Renal Disease Problem List: (1) Anemia in chronic kidney disease (CKD) (2) Anxiety (3) Open wound of abdomen (4) Infected surgical wound (5) Type II diabetes mellitus with neurological manifestations, uncontrolled (6) End stage kidney disease Plan On HD, TTS. BP is stable. wound cultures growing Pseudomonas and Enterococcus. On Epogen for anemia. Transfuse as needed. BP is stable.Surgical wound debridement HD to continue TTS. Has low Albumin, on PO protein supplement. Her Albumin is low, on PO supplement, also started on Megace and appetite is better. Started on IDPN. Continue antibiotics as per ID. Problem Qualifiers (1) Infected surgical wound: Qualified Code: T81.4XXA - Infected surgical wound, initial encounter Valentin Jimenez MD July 27, 2016 09:54
--- NOTE | 2016-07-27 10:57 | HHI.IDPN ---
Subjective Subjective Remarks Patient is a 55-year-old morbidly obese female, [facility] for further evaluation of her multiple complaints of pain. Patient had a recent hospitalization from May 14 to July 03, and at that time she had a large abdominal wound in her abdominal pannus with cellulitis. During that hospitalization she underwent multiple surgery with excision of the large open wound, debridement. There were several wound cultures done 1 on admission, and another one from her original excisional surgery and it had pseudomonas aeruginosa. Patient received IV antibiotics from May 14 2 June 07. He had more debridement on May 26, and on June 28 the patient had wide excision of the necrotic lower or abdominal pannus, panniculectomy, and partial closure of the wound. She apparently had [address], and she was [facility] the [facility] on July 03. Admitted with infected wound and wound dehiscence Underwent debridement of multiple wounds 07/19: sacral bone (down to bone), emilee hip and large abdominal wound; no new C/S Notes reviewed Seen during HD Getting TPN now D/W Dr Jimenez No fever Antibiotics Merem Cubicin Lines PIV Past Medical History Reviewed Allergies: Coded Allergies: Biaxin (Verified Allergy, Severe, swelling of face, 05/10/16) Iron (Verified Adverse Reaction, Severe, Constipation, 05/10/16) Morphine (Verified Adverse Reaction, Severe, 06/11/16) renal insufficiency. *MDRO Multi-Drug Resistant Organism (Verified Adverse Reaction, Unknown, ) VRE (abdominal wound) - 07/09/16 MDR-Pseudomonas (abdominal wound) - 07/09/16 Objective . Vital Signs Date Time Temp Pulse Resp B/P Pulse Ox O2 Delivery O2 Flow Rate FiO2 07/27/16 08:00 Room Air 07/27/16 08:00 98.0 61 18 180/73 100 07/27/16 04:00 98.1 59 18 170/88 99 07/27/16 02:00 Room Air 07/27/16 00:00 98.0 59 18 152/67 100 07/26/16 21:40 Room Air 07/26/16 20:00 58 07/26/16 20:00 97.7 64 18 118/56 100 07/26/16 16:00 98.5 60 20 161/70 98 07/26/16 12:00 98.3 58 20 131/73 98 07/26/16 07/26/16 07/27/16 15:00 23:00 07:00 Intake Total 240 ml 240 ml 480 ml Balance 240 ml 240 ml 480 ml Intake Oral 240 ml 240 ml 480 ml # Voids 1 0 0 # Bowel Movements 0 1 0 . Laboratory Tests Test 07/25/16 14:46 White Blood Count 11.1 TH/MM3 Red Blood Count 3.51 MIL/MM3 Hemoglobin 9.6 GM/DL Hematocrit 30.5 % Mean Corpuscular Volume 87.1 FL Mean Corpuscular Hemoglobin 27.3 PG Mean Corpuscular Hemoglobin 31.4 % Concent Red Cell Distribution Width 18.8 % Platelet Count 422 TH/MM3 Mean Platelet Volume 6.8 FL Neutrophils (%) (Auto) 78.5 % Lymphocytes (%) (Auto) 12.7 % Monocytes (%) (Auto) 5.8 % Eosinophils (%) (Auto) 2.2 % Basophils (%) (Auto) 0.8 % Neutrophils # (Auto) 8.7 TH/MM3 Lymphocytes # (Auto) 1.4 TH/MM3 Monocytes # (Auto) 0.6 TH/MM3 Eosinophils # (Auto) 0.2 TH/MM3 Basophils # (Auto) 0.1 TH/MM3 CBC Comment DIFF FINAL Differential Comment Physical Exam GENERAL: awake and alert, NAD. SKIN: Cool and dry. No generalized rash. HEENT: [place] conjunctivae. No scleral icterus. No injection or drainage. Moist oral mucosa. NECK: Supple, nontender. Permacath is tunneled in the right IJ, site looks okay CARDIOVASCULAR: Regular rate and rhythm without murmurs, gallops, or rubs. Soft heart sounds. RESPIRATORY: Clear to auscultation. Breath sounds equal bilaterally. No wheezes , rales, or rhonchi. Decreased breath sounds at the bases. GASTROINTESTINAL: Abdomen soft, nondistended, bowel sounds are present and normoactive. No guarding. There is a very long horizontal incision in low abdomen. Large open wound on R side of that long incision with betadine packing , slough along the incision has been debrided. Erythema and induration better. L part of incision is healing very well. MUSCULOSKELETAL: Small amount of LE edema. Has brownish tree bark texture on both LE. No calf tenderness. NEUROLOGICAL: Non-focal. PSYCH: Normal affect, calm and cooperative LINE: No evidence of infection Assessment & Plan Remarks IMPRESSION Wound dehiscence with local wound infection, cellulitis S/P wide excision large abdominal wound and panniculectomy - C/S PSAE and VRE - on Prozac - PSAE S to imipenem - no C/S available since 07/09 Morbid obesity ESRD on HD RECOMMENDATION Wound care team following Continue Merem Continue Cubicin End dates written for her Abx Wound care per plastics As per discussion with Dr Meyers - plan 10-14 days IV Abx from date of debridement Her nutritional status is being addressed She is clinically stable from ID standpoint and can be D/C D/W Dr Jimenez - her Abx can be arranged and given when she goes to HD Consult CM to arrange for her IV Abx and her wound care I will sign off Please call if there are any other ID issue or question Shea Zavala MD July 27, 2016 10:57
[2016-07-27] MEDS: DAPTOMYCIN IV SCH (11:25)
[2016-07-27] MEDS: SODIUM CHLORIDE 0.9% IV SCH (11:25)
[2016-07-27] MEDS: GENTAMICIN SULFATE (DIALYSIS USE ONLY) 20 MG/2 ML VIAL IV PRN (11:25)
[2016-07-27] MEDS: EPOETIN ALFA 10,000 UNITS/ML VIAL IV PRN (11:25)
[2016-07-27] MEDS ORDERED: SODIUM CHLORIDE IV-CENTRAL SCH ×8 (14:00)
[2016-07-27] MEDS ORDERED: [UNRECOGNIZED DRUG - OTHER] IV-CENTRAL SCH ×8 (14:00)
[2016-07-27] MEDS ORDERED: SODIUM ACETATE IV-CENTRAL SCH ×8 (14:00)
[2016-07-27] MEDS: FLUoxetine HCL 10 MG CAP PO SCH (14:22)
[2016-07-27] MEDS: CINACALCET HYDROCHLORIDE 30 MG TAB PO SCH (14:22)
[2016-07-27] MEDS: GABAPENTIN 100 MG CAP PO SCH ×2 (14:23→20:40)
[2016-07-27] MEDS: MEGESTROL ACETATE SUSP 400 MG/10 ML CUP PO SCH (14:23)
[2016-07-27] MEDS: ASPIRIN EC 81 MG TABEC PO SCH (14:23)
[2016-07-27] MEDS: CALCITRIOL 0.25 MCG CAP PO SCH (14:23)
[2016-07-27] MEDS: SODIUM CHLORIDE 0.9% FLUSH 10 ML FLUSH IV FLUSH SCH ×2 (14:25→20:41)
[2016-07-27] MEDS: SODIUM HYPOCHLORITE 0.25% 500 ML BTL TOPICAL SCH (14:35)
[2016-07-27] MEDS: POVIDONE IODINE 10% SOLN 118 ML BOTTLE TOP SCH (14:35)
[2016-07-27] MEDS ORDERED: PADIMATE (CHAPSTICK) 4.5 GM TUBE TOPICAL PRN (15:00)
--- NOTE | 2016-07-27 15:25 | HHI.PR ---
Subjective Remarks Follow up nonhealing abdominal wound and pressure ulcer of coccygeal region. Pt seen shortly after she returned from hemodialysis which she undergoes Friday , , and Friday. Pt noted she was "more tired than usual" as protein was added to her regimen and her treatment was reported to be 4 hours instead of three. Pt noted she had chapped lips and requested "chapstick." Pt's son Moy was present at bedside and pt stated "if you have any questions about my health, he is my surrogate health care provider and takes care of me. he can answer any question as well as I can." Pt denied cough, fever, nausea, and vomiting. She did endorse having diarrhea "since they started me on antibiotics a few days ago." pt reported she has an abdominal wound and "wounds on my butt." She stated she is followed by wound care. No other issues noted or reported. Objective Vitals Vital Signs Date Time Temp Pulse Resp B/P Pulse Ox O2 Delivery O2 Flow Rate FiO2 07/27/16 08:00 Room Air 07/27/16 08:00 98.0 61 18 180/73 100 07/27/16 08:00 58 07/27/16 04:00 98.1 59 18 170/88 99 07/27/16 02:00 Room Air 07/27/16 00:00 98.0 59 18 152/67 100 07/26/16 21:40 Room Air 07/26/16 20:00 58 07/26/16 20:00 97.7 64 18 118/56 100 07/26/16 16:00 98.5 60 20 161/70 98 I/O 07/26/16 07/26/16 07/26/16 07/27/16 07/27/16 07/27/16 07:00 15:00 23:00 07:00 15:00 23:00 Intake Total 240 ml 240 ml 240 ml 480 ml 240 ml Output Total 2000 ml Balance 240 ml 240 ml 240 ml 480 ml -1760 ml Intake Oral 240 ml 240 ml 240 ml 480 ml 240 ml Hemodialysis 2000 ml # Voids 0 1 0 0 # Bowel Movements 1 0 1 0 Result Diagram: 07/25/16 1446 Imaging No imaging ordered or pending within the past 24 hours. Objective Remarks GENERAL: Pt encountered sitting upright in bed, awake and alert SKIN: Warm and dry. lower legs skin is brown and dry. Port noted in upper right chest. HEAD: Normocephalic. EYES: No scleral icterus. No injection or drainage. NECK: Supple, trachea midline. No JVD or lymphadenopathy. CARDIOVASCULAR: Regular rate and rhythm without murmurs, gallops, or rubs. RESPIRATORY: Breath sounds equal bilaterally. No accessory muscle use. GASTROINTESTINAL: Abdomen soft, non-tender, nondistended. MUSCULOSKELETAL: No cyanosis, or edema. PSYCHIATRIC: A&Ox3, pleasant and cooperative, no overt signs of depression or anxiety. Procedures Pt underwent dialysis on 07/27/16. Medications and IVs Current Medications Medications (Trade) Dose Ordered Sig/Soren Route Start Time Stop Time Status Last Admin (Xanax) 0.125 mg Q6H PRN PO 07/09/16 13:15 07/23/16 15:38 (Lipitor) 80 mg HS PO 07/09/16 21:00 07/26/16 21:44 (Rocaltrol) 0.5 mcg DAILY PO 07/10/16 09:00 07/27/16 14:23 (Sensipar) 30 mg DAILY PO 07/10/16 09:00 07/27/16 14:22 (PROzac) 30 mg DAILY PO 07/10/16 09:00 07/27/16 14:22 (Neurontin) 100 mg BID PO 07/09/16 21:00 07/27/16 14:23 (Synthroid) 300 mcg DAILY@06 PO 07/10/16 06:00 07/27/16 05:43 (Antivert) 25 mg TID PRN PO 07/09/16 13:15 (Renvela) 1,600 mg TID PO 07/09/16 18:00 07/27/16 14:36 (Ecotrin Ec) 81 mg DAILY PO 07/10/16 09:00 07/27/16 14:23 (NS Flush) 2 ml UNSCH PRN IV FLUSH 07/09/16 13:15 07/14/16 07:03 (NS Flush) 2 ml BID IV FLUSH 07/09/16 21:00 07/27/16 14:25 (Tylenol) 650 mg Q4H PRN PO 07/09/16 13:15 (Zofran Inj) 4 mg Q6H PRN IVP 07/09/16 13:15 07/17/16 08:29 (Dulcolax Supp) 10 mg DAILY PRN RECTAL 07/09/16 13:15 (Heparin Inj) 5,000 units Q12H SQ 07/09/16 13:15 Hold 07/18/16 03:02 (Narcan Inj) 0.4 mg UNSCH PRN IV 07/09/16 13:15 Acetaminophen/ Hydrocodone Bitart 1 tab 1 tab Q4H PRN PO 07/09/16 15:00 07/27/16 13:43 (NS 1000 ml Inj) 1,000 ml @ 0 mls/hr Q0M PRN IV 07/09/16 15:17 07/09/16 16:09 Heparin Sodium (Porcine) 8000 units 8,000 units UNSCH PRN IVF 07/09/16 15:30 Sodium Chloride 1,000 ml @ 200 mls/hr Q5H PRN IV 07/09/16 15:17 07/27/16 11:24 (NS 1000 ml Inj) 1,000 ml @ 0 mls/hr Q0M PRN IV 07/09/16 15:17 (Mannitol Inj) 12.5 gm UNSCH PRN IV 07/09/16 15:30 (Albumin 25% Inj) 25 gm UNSCH PRN IV 07/09/16 15:30 07/09/16 16:11 (NS Flush) 5 ml UNSCH PRN IV FLUSH 07/09/16 15:30 (Heparin Inj) UNSCH PRN .XX 07/09/16 15:30 07/25/16 11:19 (Gentamicin (Dialysis) Inj) 20 mg UNSCH PRN IV 07/09/16 15:30 07/27/16 11:25 (Zofran Inj) 4 mg UNSCH PRN IV 07/09/16 15:30 (Tylenol) 650 mg UNSCH PRN PO 07/09/16 15:30 (Benadryl) 25 mg UNSCH PRN PO 07/09/16 15:30 (Nitrostat Sl) 0.4 mg UNSCH PRN SL 07/09/16 15:30 (Catapres) 0.1 mg UNSCH PRN PO 07/09/16 15:30 (Epogen Inj) 10,000 units UNSCH PRN IV 07/09/16 15:30 07/27/16 11:25 (Gelfoam 12 Mm/7 Mm Top) 1 foam UNSCH PRN TOP 07/09/16 15:30 (Pill Splitter) 1 ea UNSCH PRN OTHER 07/18/16 05:45 07/18/16 06:12 (Dolophine) 5 mg Q8H PO 07/19/16 03:00 07/27/16 14:32 (Dakin'S 0.25% Soln) 500 ml DAILY TOPICAL 07/20/16 09:00 07/27/16 14:35 (Betadine 10% Top Soln) 1 applic DAILY TOP 07/20/16 09:00 07/27/16 14:35 Senna/Docusate Sodium 1 tab 1 tab BID PO 07/22/16 09:00 07/24/16 10:07 (Merrem Inj/NS Inj) 100 ml @ 200 mls/hr Q24H IV 07/22/16 17:00 08/01/16 23:00 07/26/16 16:31 (Megace Liq) 400 mg DAILY PO 07/23/16 17:45 07/27/16 14:23 Benzocaine/ Menthol 1 lozenge 1 lozenge Q2HR PRN BUCCAL 07/24/16 17:15 07/25/16 14:17 (Sodium Chloride 23.4% Inj/Sodium Acetate Inj/KCl Inj/Magnesium Chloride Inj/ Calcium Chloride Inj/Mvi-12 Inj/ Folvite Inj/ Clinimix .) 526.1859 ml @ 150 mls/hr Q3H31M IV-CENTRAL 07/27/16 14:00 07/27/16 11:26 A/P Assessment and Plan Ms. Foley is a 55-year-old female with a known history of CAD with stent placement, CHF, diabetes mellitus, ESRD on hemodialysis, hypertension and spinal stenosis with chronic back pain. Patient had a recent hospitalization from 05/14/16 to 07/03/16 and at that time had a large abdominal wound in her abdominal pannus with cellulitis. During that hospitalization she underwent multiple surgery with excision of the large open wound, debridement. There were several wound cultures done 1 on admission, and another one from her original excisional surgery and it had pseudomonas aeruginosa. Patient received IV antibiotics from 05/14/16-06/07/16. She had more debridement on 05/26/16, and on 06/28/16 the patient had wide excision of the necrotic lower or abdominal pannus, panniculectomy, and partial closure of the wound. She apparently had [address], and she was discharged to the group home on 07/03/16. Admitted with infected wound and wound dehiscence on 07/09/2016. //Abdominal wound dehiscence //Postop revision 07/19. - Wound cultures growing pseudomonas aeruginose and enterococcus faecium VRE. Blood cultures drawn, NGTD. - ID following, appreciate input. - Change Zerbaxa to 150 mg IV Q8hr. Previously on Primaxin 250 mg IV Q12h 07/12 -07/15, now Dc'd. - Continue wet-to-dry dressing changes as ordered. - Monitor pressure ulcer of coccygeal region. - Dr. Myeers planning for surgery on Friday07/19/16 for debridement of abdominal and sacral wounds with placement of wound vac as indicated. BMP and CBC in am. Hold heparin tomorrow for sx. Morbid obesity: strongly recommended diet and exercise, weight loss warranted. Currently (07/27/16) her BMI is 55.5. Hypertension, controlled today: Continue home medications as indicated. Control pain. If continues to sustain will add hypertensive agent. Type 2 Diabetes: Continue sliding scale insulin, cover as needed. Encourage healthy eating and compliance with 2200 ADA diabetic diet. Flume Maker has seen patient. Anxiety: More controlled today. Continue Xanax 0.125 mg PO PRN anxiety. End stage renal disease: On hemodialysis T, , Sat. Nephrology following. Creatinine 6.34, BUN 55, GFR 7 on 07/16. Monitor. Per pt, protein was added to her dialysis regimen due to low albumen. Anemia. Follow-up labs tomorrow. Normocytic anemia continues per labs of . Other chronic medical conditions include hyperlipidemia, hypothyroidism, dyslipidemia, depression and spinal stenosis, all are stable at this time. Continue current treatment and medications as indicated. Control pain: Continue Methadone 5 mg PO Q8h scheduled and [place] PO per pain scale. Monitor. DVT prophylaxis: Heparin 5,000 units sq Q12h. Hold tomorrow, surgery. D/w Pt, son (at bedside), and RN (at bedside). Discharge Planning CM still working on plan Jerry Karimi Jr. ISABELL July 27, 2016 15:25
[2016-07-27 16:00] VITALS: BP 129/69; PULSE 61; RESP 19; TEMP 98.6; O2SAT 100
[2016-07-27] MEDS ORDERED: [UNRECOGNIZED DRUG - OTHER] IV-CENTRAL PRN ×8 (16:12)
[2016-07-27] MEDS ORDERED: SODIUM ACETATE IV-CENTRAL PRN ×8 (16:12)
[2016-07-27] MEDS ORDERED: SODIUM CHLORIDE IV-CENTRAL PRN ×8 (16:12)
[2016-07-27] MEDS: MEROPENEM INJ 500 MG in SODIUM CHLORIDE 0.9% INJ 100 ML IV SCH (17:44)
[2016-07-27 20:00] VITALS: BP 121/56; PULSE 62; RESP 18; TEMP 98.4; O2SAT 100
[2016-07-27] MEDS: ATORVASTATIN 80 MG TAB PO SCH (20:40)
[2016-07-28] VITALS: BP 119/62; PULSE 63; RESP 18; TEMP 98.6; O2SAT 98
[2016-07-28] MEDS: METHADONE HCL 10 MG TAB PO SCH ×3 (03:53→19:00)
[2016-07-28 04:00] VITALS: BP 129/57; PULSE 56; RESP 16; TEMP 99.1; O2SAT 99
[2016-07-28] MEDS: LEVOTHYROXINE SODIUM 150 MCG TAB PO SCH (05:10)
[2016-07-28] MEDS: ACETAMINOPHEN/HYDROcodone 325 MG/10 MG TAB PO PRN ×4 (05:10→20:15)
[2016-07-28] MEDS: INSULIN NovoLIN REGULAR SUPPLEMENTAL SCALE SQ SCH ×4 (05:12→20:20)
[2016-07-28 08:00] VITALS: BP 173/73; PULSE 62; PULSE 68; RESP 18; TEMP 98.9; O2SAT 100
[2016-07-28] MEDS: DOCUSATE SODIUM 50 MG/SENNA 8.6 MG TAB PO SCH ×2 (09:00→20:17)
[2016-07-28] MEDS: ASPIRIN EC 81 MG TABEC PO SCH (09:18)
[2016-07-28] MEDS: SODIUM CHLORIDE 0.9% FLUSH 10 ML FLUSH IV FLUSH SCH ×2 (09:18→20:17)
[2016-07-28] MEDS: FLUoxetine HCL 10 MG CAP PO SCH (09:18)
[2016-07-28] MEDS: CALCITRIOL 0.25 MCG CAP PO SCH (09:18)
[2016-07-28] MEDS: MEGESTROL ACETATE SUSP 400 MG/10 ML CUP PO SCH (09:18)
[2016-07-28] MEDS: GABAPENTIN 100 MG CAP PO SCH ×2 (09:18→20:15)
[2016-07-28] MEDS: SEVELAMER CARBONATE 800 MG TAB PO SCH ×3 (09:18→20:16)
[2016-07-28] MEDS: CINACALCET HYDROCHLORIDE 30 MG TAB PO SCH (09:19)
--- NOTE | 2016-07-28 11:32 | HHI.NPPN ---
Subjective General Problems: Anemia, Edema, Hypertension Renal Failure: End Stage Renal Disease History of Present Illness 55-year-old female with past medical history of hypertension, morbid obesity, history of multiple abdominal wall, diabetes mellitus, ischemic heart disease, hypothyroidism, spinal stenosis and end-stage renal disease on hemodialysis three times per week who came to the hospital because of worsening pain in her wound. Additional Remarks Patient is alert, feeling better, pain improving and appetite is better. Review of Systems Respiratory Lungs: SOB, Wheeze Cardiovascular Cardiac: GRIFFIN Gastrointestinal Gastrointestinal: Abdominal Pain Objective Data Data 07/27/16 07/28/16 18:59 06:59 Intake Total 1002 ml 720 ml Output Total 2600 ml Balance -1598 ml 720 ml Intake Oral 1000 ml 720 ml IV Total 2 ml Output Urine Total 200 ml Stool Total 400 ml Hemodialysis 2000 ml # Voids 0 # Bowel Movements 1 Vital Signs Date Time Temp Pulse Resp B/P Pulse Ox O2 Delivery O2 Flow Rate FiO2 07/28/16 09:20 Room Air 07/28/16 08:00 68 07/28/16 08:00 98.9 62 18 173/73 100 07/28/16 04:01 Room Air 07/28/16 04:00 99.1 56 16 129/57 99 07/28/16 00:00 98.6 63 18 119/62 98 07/28/16 00:00 Room Air 07/27/16 20:00 62 07/27/16 20:00 Room Air 07/27/16 20:00 98.4 62 18 121/56 100 07/27/16 16:00 98.6 61 19 129/69 100 -: 07/25/16 1446 Physical Exam General Appearance: No Acute Distress, Comfortable Eyes Eye Exam: Pupils Equal Throat Throat Exam: Oral Mucosa [place] & Moist Neck Neck Exam: Neck Supple Pulmonary Resp Exam: Breath Sounds Equal, No Distress, Rhonchi, Decreased Bases Cardiology CV Exam: Regular, Normal Sinus Rhythm Gastrointestinal/Abdomen GI Exam: Soft, Bowel Sounds Present, Distended Extremeties Extremities Exam: Moderate Edema, Pitting Edema, Dependent Edema Neurologic Neuro Exam: Alert, Awake, Oriented Psychiatric Psych Exam: Appropriate Responses Assessment/Plan Assessment Summary: Anemia of CKD, Hypertension, End Stage Renal Disease Problem List: (1) Anemia in chronic kidney disease (CKD) (2) Anxiety (3) Open wound of abdomen (4) Infected surgical wound (5) Type II diabetes mellitus with neurological manifestations, uncontrolled (6) End stage kidney disease Plan On HD, TTS. BP is stable. wound cultures growing Pseudomonas and Enterococcus. On Epogen for anemia. Transfuse as needed. BP is stable.Surgical wound debridement HD to continue TTS. Has low Albumin, on PO protein supplement. Her Albumin is low, on PO supplement, also started on Megace and appetite is better. Started on IDPN. Continue antibiotics as per ID. To continue PT. Problem Qualifiers (1) Infected surgical wound: Qualified Code: T81.4XXA - Infected surgical wound, initial encounter Valentin Jimenez MD July 28, 2016 11:32
[2016-07-28 12:00] VITALS: BP 154/69; PULSE 58; RESP 18; TEMP 98.9; O2SAT 96
--- NOTE | 2016-07-28 12:57 | HHI.PR ---
Subjective Remarks Follow up nonhealing abdominal wound and pressure ulcer of coccygeal region. Pt noted she received requested "chapstick" ordered yesterday. Pt denied cough, fever, nausea, and vomiting. She did endorse having diarrhea "since they started me on antibiotics a few days ago." pt reported she has an abdominal wound and "sacral wound" are being treated. She denied pain from the abdominal wound (though she reported some "leakage" from it) yet endorsed some discomfort with the sacral wound. Pt noted she felt like she was "goingto have diarrhea." Discussed medications and asked for "something but not on a regular basis. I will take it when i need it." No other issues noted or reported. Objective Vitals Vital Signs Date Time Temp Pulse Resp B/P Pulse Ox O2 Delivery O2 Flow Rate FiO2 07/28/16 12:00 98.9 58 18 154/69 96 07/28/16 09:20 Room Air 07/28/16 08:00 68 07/28/16 08:00 98.9 62 18 173/73 100 07/28/16 04:01 Room Air 07/28/16 04:00 99.1 56 16 129/57 99 07/28/16 00:00 98.6 63 18 119/62 98 07/28/16 00:00 Room Air 07/27/16 20:00 62 07/27/16 20:00 Room Air 07/27/16 20:00 98.4 62 18 121/56 100 07/27/16 16:00 98.6 61 19 129/69 100 I/O 07/27/16 07/27/16 07/27/16 07/28/16 07/28/16 07/28/16 06:59 14:59 22:59 06:59 14:59 22:59 Intake Total 480 ml 1002 ml 480 ml 240 ml Output Total 2600 ml Balance 480 ml -1598 ml 480 ml 240 ml Intake Oral 480 ml 1000 ml 480 ml 240 ml IV Total 2 ml Output Urine Total 200 ml Stool Total 400 ml Hemodialysis 2000 ml # Voids 0 0 0 # Bowel Movements 0 1 0 Result Diagram: 07/25/16 1446 Imaging No imaging ordered or resulted within past 24 hours. Objective Remarks GENERAL: Pt encountered sitting upright in bed, awake and alert. Pleasant and cooperative. SKIN: Warm and dry. Lower legs skin is brown and dry. Port noted in upper right chest. HEAD: Normocephalic. EYES: No scleral icterus. No injection or drainage. NECK: Supple, trachea midline. No JVD or lymphadenopathy. CARDIOVASCULAR: Regular rate and rhythm without murmurs, gallops, or rubs. RESPIRATORY: Breath sounds equal bilaterally. No accessory muscle use. GASTROINTESTINAL: Abdomen soft, non-tender, nondistended. MUSCULOSKELETAL: No cyanosis, or edema. PSYCHIATRIC: A&Ox3, pleasant and cooperative, no overt signs of depression or anxiety. Procedures Pt underwent dialysis on 07/27/16. Medications and IVs Current Medications Medications (Trade) Dose Ordered Sig/Soren Route Start Time Stop Time Status Last Admin (Xanax) 0.125 mg Q6H PRN PO 07/09/16 13:15 07/23/16 15:38 (Lipitor) 80 mg HS PO 07/09/16 21:00 07/27/16 20:40 (Rocaltrol) 0.5 mcg DAILY PO 07/10/16 09:00 07/28/16 09:18 (Sensipar) 30 mg DAILY PO 07/10/16 09:00 07/28/16 09:19 (PROzac) 30 mg DAILY PO 07/10/16 09:00 07/28/16 09:18 (Neurontin) 100 mg BID PO 07/09/16 21:00 07/28/16 09:18 (Synthroid) 300 mcg DAILY@06 PO 07/10/16 06:00 07/28/16 05:10 (Antivert) 25 mg TID PRN PO 07/09/16 13:15 (Renvela) 1,600 mg TID PO 07/09/16 18:00 07/28/16 09:18 (Ecotrin Ec) 81 mg DAILY PO 07/10/16 09:00 07/28/16 09:18 (NS Flush) 2 ml UNSCH PRN IV FLUSH 07/09/16 13:15 07/14/16 07:03 (NS Flush) 2 ml BID IV FLUSH 07/09/16 21:00 07/28/16 09:18 (Tylenol) 650 mg Q4H PRN PO 07/09/16 13:15 (Zofran Inj) 4 mg Q6H PRN IVP 07/09/16 13:15 07/17/16 08:29 (Dulcolax Supp) 10 mg DAILY PRN RECTAL 07/09/16 13:15 (Heparin Inj) 5,000 units Q12H SQ 07/09/16 13:15 Hold 07/18/16 03:02 (Narcan Inj) 0.4 mg UNSCH PRN IV 07/09/16 13:15 Acetaminophen/ Hydrocodone Bitart 1 tab 1 tab Q4H PRN PO 07/09/16 15:00 07/28/16 09:17 (NS 1000 ml Inj) 1,000 ml @ 0 mls/hr Q0M PRN IV 07/09/16 15:17 07/09/16 16:09 Heparin Sodium (Porcine) 8000 units 8,000 units UNSCH PRN IVF 07/09/16 15:30 Sodium Chloride 1,000 ml @ 200 mls/hr Q5H PRN IV 07/09/16 15:17 07/27/16 11:24 (NS 1000 ml Inj) 1,000 ml @ 0 mls/hr Q0M PRN IV 07/09/16 15:17 (Mannitol Inj) 12.5 gm UNSCH PRN IV 07/09/16 15:30 (Albumin 25% Inj) 25 gm UNSCH PRN IV 07/09/16 15:30 07/09/16 16:11 (NS Flush) 5 ml UNSCH PRN IV FLUSH 07/09/16 15:30 (Heparin Inj) UNSCH PRN .XX 07/09/16 15:30 07/25/16 11:19 (Gentamicin (Dialysis) Inj) 20 mg UNSCH PRN IV 07/09/16 15:30 07/27/16 11:25 (Zofran Inj) 4 mg UNSCH PRN IV 07/09/16 15:30 (Tylenol) 650 mg UNSCH PRN PO 07/09/16 15:30 (Benadryl) 25 mg UNSCH PRN PO 07/09/16 15:30 (Nitrostat Sl) 0.4 mg UNSCH PRN SL 07/09/16 15:30 (Catapres) 0.1 mg UNSCH PRN PO 07/09/16 15:30 (Epogen Inj) 10,000 units UNSCH PRN IV 07/09/16 15:30 07/27/16 11:25 (Gelfoam 12 Mm/7 Mm Top) 1 foam UNSCH PRN TOP 07/09/16 15:30 (Pill Splitter) 1 ea UNSCH PRN OTHER 07/18/16 05:45 07/18/16 06:12 (Dolophine) 5 mg Q8H PO 07/19/16 03:00 07/28/16 11:55 (Dakin'S 0.25% Soln) 500 ml DAILY TOPICAL 07/20/16 09:00 07/27/16 14:35 (Betadine 10% Top Soln) 1 applic DAILY TOP 07/20/16 09:00 07/27/16 14:35 Senna/Docusate Sodium 1 tab 1 tab BID PO 07/22/16 09:00 07/24/16 10:07 (Merrem Inj/NS Inj) 100 ml @ 200 mls/hr Q24H IV 07/22/16 17:00 08/01/16 23:00 07/27/16 17:44 (Megace Liq) 400 mg DAILY PO 07/23/16 17:45 07/28/16 09:18 (Cepacol Extra Adiel (Sugar Free)) 1 lozenge Q2HR PRN BUCCAL 07/24/16 17:15 07/25/16 14:17 Padimate O 1 applic 1 applic UNSCH PRN TOPICAL 07/27/16 15:00 07/27/16 15:19 (Sodium Chloride 23.4% Inj/Sodium Acetate Inj/KCl Inj/Magnesium Chloride Inj/ Calcium Chloride Inj/Mvi-12 Inj/ Folvite Inj/ Clinimix 4./) 526.1859 ml @ 150 mls/hr Q3H31M PRN IV-CENTRAL 07/27/16 16:12 (Imodium) 2 mg Q6H PRN PO 07/28/16 13:00 Vascular Central Line Catheter: Yes Assessment to: Continue Line: Central Venous Catheter Side: Right Location: Subclavian A/P Assessment and Plan Ms. Foley is a 55-year-old female with a known history of CAD with stent placement, CHF, diabetes mellitus, ESRD on hemodialysis, hypertension and spinal stenosis with chronic back pain. Patient had a recent hospitalization from 05/14/16 to 07/03/16 and at that time had a large abdominal wound in her abdominal pannus with cellulitis. During that hospitalization she underwent multiple surgery with excision of the large open wound, debridement. There were several wound cultures done 1 on admission, and another one from her original excisional surgery and it had pseudomonas aeruginosa. Patient received IV antibiotics from 05/14/16-06/07/16. She had more debridement on 05/26/16, and on 06/28/16 the patient had wide excision of the necrotic lower or abdominal pannus, panniculectomy, and partial closure of the wound. She apparently had [address], and she was discharged to the longterm on 07/03/16. Admitted with infected wound and wound dehiscence on 07/09/2016. //Abdominal wound dehiscence //Postop revision 07/19. - Wound cultures growing pseudomonas aeruginose and enterococcus faecium VRE. Blood cultures drawn, NGTD. - ID following, appreciate input. - Change Zerbaxa to 150 mg IV Q8hr. Previously on Primaxin 250 mg IV Q12h 07/12 -07/15, now Dc'd. - Continue wet-to-dry dressing changes as ordered. - Monitor pressure ulcer of coccygeal region. - Dr. Meyers planning for surgery on Friday07/19/16 for debridement of abdominal and sacral wounds with placement of wound vac as indicated. BMP and CBC in am. Hold heparin tomorrow for sx. -Imodium added for diarrhea (07/28/16) Morbid obesity: strongly recommended diet and exercise, weight loss warranted. Currently (07/27/16) her BMI is 55.5. Hypertension, controlled today: Continue home medications as indicated. Control pain. If continues to sustain will add hypertensive agent. Type 2 Diabetes: Continue sliding scale insulin, cover as needed. Encourage healthy eating and compliance with 2200 ADA diabetic diet. Director Regulatory Compliance has seen patient. Anxiety: More controlled today. Continue Xanax 0.125 mg PO PRN anxiety. End stage renal disease: On hemodialysis T, TH, Sat. Nephrology following. Creatinine 6.34, BUN 55, GFR 7 on 07/16. Monitor. Per pt, protein was added to her dialysis regimen due to low albumen. Labs were ordered for 07/28/16 but sample was not obtained. Subsequently, results are pending successful draw. Anemia. Follow-up labs tomorrow. Normocytic anemia continues per labs of . Other chronic medical conditions include hyperlipidemia, hypothyroidism, dyslipidemia, depression and spinal stenosis, all are stable at this time. Continue current treatment and medications as indicated. Control pain: Continue Methadone 5 mg PO Q8h scheduled and [place] PO per pain scale. Monitor. DVT prophylaxis: Heparin 5,000 units sq Q12h. Hold tomorrow, surgery. D/w Pt, son (at bedside), and RN (at bedside). Discharge Planning CM still working on plan Jerry Karimi Jr. July 28, 2016 12:57
[2016-07-28] MEDS ORDERED: LOPERAMIDE HCL 2 MG CAP PO PRN (13:00)
[2016-07-28 13:55] LABS: AUTOMATED NEUTROPHIL # 6.4 TH/MM3 (1.8-7.7); BASOPHIL # 0.1 TH/MM3 (0-0.2); EOSINOPHIL # 0.2 TH/MM3 (0-0.4); EOSINOPHIL % 2.1 % (0.0-4.0); HEMO FLAGS DIFF FINAL; LYMPH % 19.3 % (9.0-44.0); LYMPHOCYTE # 1.7 TH/MM3 (1.0-4.8); MEAN CORPUSCULAR HEMOGLOBIN 28.6 PG (27.0-34.0); MEAN CORPUSCULAR HGB CONC 32.9 % (32.0-36.0); MONO % 6.5 % (0.0-8.0); NEUT % 71.1 % (16.0-70.0); PLATELET COUNT 389 TH/MM3 (150-450); RED BLOOD COUNT 3.22 MIL/MM3 (4.00-5.30); RED CELL DISTRIBUTION WIDTH 19.1 % (11.6-17.2)
[2016-07-28 14:10] LABS: ANION GAP 8 MEQ/L (5-15); AST (GOT) 16 U/L (15-37); BICARBONATE 32.9 MEQ/L (21.0-32.0); BLOOD UREA NITROGEN 30 MG/DL (7-18); CHLORIDE 96 MEQ/L (98-107); GLOMERULAR FILTRATION RATE 13 ML/MIN (>89); POTASSIUM 3.6 MEQ/L (3.5-5.1); SODIUM (NA) 137 MEQ/L (136-145)
[2016-07-28 14:14] LABS: ALKALINE PHOSPHATASE 131 U/L (45-117); ALT (GPT) 9 U/L (10-53); TOTAL BILIRUBIN ADULT 0.3 MG/DL (0.2-1.0)
[2016-07-28] MEDS: POVIDONE IODINE 10% SOLN 118 ML BOTTLE TOP SCH (14:55)
[2016-07-28] MEDS: SODIUM HYPOCHLORITE 0.25% 500 ML BTL TOPICAL SCH (14:55)
[2016-07-28 16:00] VITALS: BP 123/59; PULSE 59; RESP 18; TEMP 98.4; O2SAT 100
[2016-07-28] MEDS: MEROPENEM INJ 500 MG in SODIUM CHLORIDE 0.9% INJ 100 ML IV SCH (16:20)
[2016-07-28 20:00] VITALS: BP 103/57; PULSE 58; PULSE 64; RESP 18; TEMP 98.3; O2SAT 97
[2016-07-28] MEDS: ATORVASTATIN 80 MG TAB PO SCH (20:15)
[2016-07-29] VITALS (7 sets, daily range): BP systolic 108–158; BP diastolic 52–69; PULSE 53–63; RESP 16–20; TEMP 97.8–99; O2SAT 95–100
[2016-07-29] MEDS: ACETAMINOPHEN/HYDROcodone 325 MG/10 MG TAB PO PRN ×4 (01:53→20:47)
[2016-07-29] MEDS: METHADONE HCL 10 MG TAB PO SCH ×3 (03:26→18:10)
[2016-07-29] MEDS: INSULIN NovoLIN REGULAR SUPPLEMENTAL SCALE SQ SCH ×4 (05:55→20:49)
[2016-07-29] MEDS: LEVOTHYROXINE SODIUM 150 MCG TAB PO SCH (05:55)
[2016-07-29] MEDS: DOCUSATE SODIUM 50 MG/SENNA 8.6 MG TAB PO SCH ×2 (09:00→20:46)
[2016-07-29] MEDS: CALCITRIOL 0.25 MCG CAP PO SCH (09:02)
[2016-07-29] MEDS: SEVELAMER CARBONATE 800 MG TAB PO SCH ×3 (09:03→18:09)
[2016-07-29] MEDS: FLUoxetine HCL 10 MG CAP PO SCH (09:03)
[2016-07-29] MEDS: CINACALCET HYDROCHLORIDE 30 MG TAB PO SCH (09:03)
[2016-07-29] MEDS: GABAPENTIN 100 MG CAP PO SCH ×2 (09:03→20:46)
[2016-07-29] MEDS: MEGESTROL ACETATE SUSP 400 MG/10 ML CUP PO SCH (09:03)
[2016-07-29] MEDS: ASPIRIN EC 81 MG TABEC PO SCH (09:03)
[2016-07-29] MEDS: SODIUM HYPOCHLORITE 0.25% 500 ML BTL TOPICAL SCH (09:04)
[2016-07-29] MEDS: POVIDONE IODINE 10% SOLN 118 ML BOTTLE TOP SCH (09:04)
[2016-07-29] MEDS: SODIUM CHLORIDE 0.9% FLUSH 10 ML FLUSH IV FLUSH SCH ×2 (09:04→20:48)
--- NOTE | 2016-07-29 14:36 | HHI.PR ---
Subjective Remarks Follow up nonhealing abdominal wound and pressure ulcer of coccygeal region. Patient seen and examined. Patient lying comfortably in bed, in good spirits. States she is feeling well. Denies any new acute complaints. Does state she has been having continued diarrhea at least once per day. Denies any recent fever, chills, cough, shortness of breath, chest pain, nausea, vomiting or abdominal pain. Objective Vitals Vital Signs Date Time Temp Pulse Resp B/P Pulse Ox O2 Delivery O2 Flow Rate FiO2 07/29/16 12:00 98.0 56 18 127/56 96 07/29/16 08:00 99.0 54 20 158/69 100 07/29/16 04:00 97.8 53 16 108/52 95 07/29/16 04:00 Room Air 07/29/16 00:00 Room Air 07/29/16 00:00 97.8 63 18 121/57 98 07/28/16 20:15 Room Air 07/28/16 20:00 64 07/28/16 20:00 98.3 58 18 103/57 97 07/28/16 16:00 98.4 59 18 123/59 100 07/28/16 16:00 Room Air I/O 07/28/16 07/28/16 07/28/16 07/29/16 07/29/16 07/29/16 06:59 14:59 22:59 06:59 14:59 22:59 Intake Total 240 ml 1302 ml 480 ml 240 ml Balance 240 ml 1302 ml 480 ml 240 ml Intake Oral 240 ml 1200 ml 480 ml 240 ml IV Total 102 ml # Voids 0 1 0 1 # Bowel Movements 0 1 0 0 Result Diagram: 07/28/16 1338 07/28/16 1338 Objective Remarks GENERAL: Morbidly obese, well-developed patient who is in NAD. SKIN: Warm and dry. No rash. Abdominal dressing c/d/i, no drainage noted on wound dressings. HEENT: Normocephalic. Pupils equal and round. No scleral icterus. No injection or drainage. No nasal bleeding or discharge. Mucous membranes pink and moist. Neck supple. Trachea midline. CARDIOVASCULAR: Regular rate and rhythm. S1, S2 noted. No murmur appreciated. RESPIRATORY: No accessory muscle use. Diminished in bilateral anterior lower lobes. Breath sounds equal bilaterally. GASTROINTESTINAL: Abdomen round, soft, non-tender, nondistended. Normoactive bowel sounds x4. MUSCULOSKELETAL: No obvious deformities. Extremities without clubbing, cyanosis , or edema. 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 NEUROLOGICAL: Awake and alert. No obvious cranial nerve deficits. Motor grossly within normal limits. Normal speech. PSYCHIATRIC: Appropriate mood and affect; insight and judgment normal. Urinary Catheter: No Vascular Central Line Catheter: No Line: Central Venous Catheter Side: Right Location: Subclavian A/P Assessment and Plan Ms. Foley is a 55-year-old female with a known history of CAD with stent placement, CHF, diabetes mellitus, ESRD on hemodialysis, hypertension and spinal stenosis with chronic back pain. Patient had a recent hospitalization from 05/14/16 to 07/03/16 and at that time had a large abdominal wound in her abdominal pannus with cellulitis. During that hospitalization she underwent multiple surgery with excision of the large open wound, debridement. There were several wound cultures done 1 on admission, and another one from her original excisional surgery and it had pseudomonas aeruginosa. Patient received IV antibiotics from 05/14/16-06/07/16. She had more debridement on 05/26/16, and on 06/28/16 the patient had wide excision of the necrotic lower or abdominal pannus, panniculectomy, and partial closure of the wound. She apparently had [address], and she was discharged to the intermediate on 07/03/16. Admitted with infected wound and wound dehiscence. Abdominal wound dehiscence Coccygeal pressure ulcer - Status post debridement of abdominal and sacral wounds on 07/[address] Meyers. Wound vac now dc'd. - Wound cultures growing pseudomonas aeruginose and enterococcus faecium VRE. Blood cultures drawn, NGTD. - ID signed off with recommendations, continue meropenem 500 mg IV Q24hr until 08/01. - Previously on Zerbaxa and Primaxin, finished course. - Wound care last saw patient 07/25 and will be seeing patient weekly. Continued recommendations from plastic surgery standpoint for wound management. Continue special bed and mattress. - Monitor pressure ulcer of coccygeal region. Diarrhea - Will obtain C.diff stool specimen. - Will continue Imodium until stool resulted. - Monitor hydration and electrolytes closely. Morbid obesity: strongly recommended diet and exercise, weight loss warranted. Hypertension: Continue home medications as indicated. Type 2 Diabetes: Continue sliding scale insulin, cover as needed. Encourage healthy eating and compliance with 2200 ADA diabetic diet. Nursing Director has seen patient. Anxiety: More controlled today. Continue Xanax 0.125 mg PO PRN anxiety. End stage renal disease: On hemodialysis T, TH, Sat. Nephrology following. Other chronic medical conditions include hyperlipidemia, hypothyroidism, dyslipidemia, depression and spinal stenosis, all are stable at this time. Continue current treatment and medications as indicated. Control pain: Continue Methadone 5 mg PO Q8h scheduled and [place] PO per pain scale. Monitor. DVT prophylaxis: Heparin 5,000 units sq Q12h. Discussed with patient and Dr. Turner. Anjelica Farley July 29, 2016 14:36
--- NOTE | 2016-07-29 16:06 | HHI.NPPN ---
Subjective General Problems: Anemia, Edema, Hypertension Renal Failure: End Stage Renal Disease History of Present Illness 55-year-old female with past medical history of hypertension, morbid obesity, history of multiple abdominal wall, diabetes mellitus, ischemic heart disease, hypothyroidism, spinal stenosis and end-stage renal disease on hemodialysis three times per week who came to the hospital because of worsening pain in her wound. Additional Remarks Patient is alert, abd. pain improving and appetite is better, waiting for PT, seen in AM. Review of Systems Respiratory Lungs: SOB, Wheeze Cardiovascular Cardiac: GRIFFIN Gastrointestinal Gastrointestinal: Abdominal Pain Objective Data Data 07/28/16 07/29/16 18:59 06:59 Intake Total 1302 ml 720 ml Balance 1302 ml 720 ml Intake Oral 1200 ml 720 ml IV Total 102 ml # Voids 1 1 # Bowel Movements 1 0 Vital Signs Date Time Temp Pulse Resp B/P Pulse Ox O2 Delivery O2 Flow Rate FiO2 07/29/16 12:00 98.0 56 18 127/56 96 07/29/16 08:00 99.0 54 20 158/69 100 07/29/16 04:00 97.8 53 16 108/52 95 07/29/16 04:00 Room Air 07/29/16 00:00 Room Air 07/29/16 00:00 97.8 63 18 121/57 98 07/28/16 20:15 Room Air 07/28/16 20:00 64 07/28/16 20:00 98.3 58 18 103/57 97 -: 07/28/16 1338 07/28/16 1338 Physical Exam General Appearance: No Acute Distress, Comfortable Eyes Eye Exam: Pupils Equal Throat Throat Exam: Oral Mucosa D[place]ray & Moist Neck Neck Exam: Neck Supple Pulmonary Resp Exam: Breath Sounds Equal, No Distress, Rhonchi, Decreased Bases Cardiology CV Exam: Regular, Normal Sinus Rhythm Gastrointestinal/Abdomen GI Exam: Soft, Bowel Sounds Present, Distended Extremeties Extremities Exam: Moderate Edema, Pitting Edema, Dependent Edema Neurologic Neuro Exam: Alert, Awake, Oriented Psychiatric Psych Exam: Appropriate Responses Assessment/Plan Assessment Summary: Anemia of CKD, Hypertension, End Stage Renal Disease Problem List: (1) Anemia in chronic kidney disease (CKD) (2) Anxiety (3) Open wound of abdomen (4) Infected surgical wound (5) Type II diabetes mellitus with neurological manifestations, uncontrolled (6) End stage kidney disease Plan On HD, TTS. BP is stable. wound cultures growing Pseudomonas and Enterococcus. On Epogen for anemia. Transfuse as needed. BP is stable.Surgical wound debridement HD to continue TTS. Has low Albumin, on PO protein supplement. Her Albumin is low, on PO supplement, also started on Megace and appetite is better. Started on IDPN. Continue antibiotics as per ID. HD will be in AM and IDPN with HD. Problem Qualifiers (1) Infected surgical wound: Qualified Code: T81.4XXA - Infected surgical wound, initial encounter Valentin Jimenez MD July 29, 2016 16:06
[2016-07-29] MEDS: MEROPENEM INJ 500 MG in SODIUM CHLORIDE 0.9% INJ 100 ML IV SCH (18:09)
[2016-07-29] MEDS: ATORVASTATIN 80 MG TAB PO SCH (20:47)
[2016-07-30] VITALS: BP 112/67; PULSE 93; RESP 18; TEMP 98.3; O2SAT 99
[2016-07-30] MEDS: ACETAMINOPHEN/HYDROcodone 325 MG/10 MG TAB PO PRN ×5 (00:58→21:40)
[2016-07-30 04:00] VITALS: BP 143/65; PULSE 50; RESP 17; TEMP 98.2; O2SAT 99
[2016-07-30] MEDS: METHADONE HCL 10 MG TAB PO SCH ×3 (04:01→19:00)
[2016-07-30] MEDS: LEVOTHYROXINE SODIUM 150 MCG TAB PO SCH (05:52)
[2016-07-30] MEDS: INSULIN NovoLIN REGULAR SUPPLEMENTAL SCALE SQ SCH ×4 (05:52→21:00)
[2016-07-30 08:00] VITALS: BP 154/70; PULSE 58; RESP 20; TEMP 98.1; O2SAT 99
[2016-07-30] MEDS: ASPIRIN EC 81 MG TABEC PO SCH (08:48)
[2016-07-30] MEDS: CALCITRIOL 0.25 MCG CAP PO SCH (08:48)
[2016-07-30] MEDS: GABAPENTIN 100 MG CAP PO SCH ×2 (08:49→21:35)
[2016-07-30] MEDS: CINACALCET HYDROCHLORIDE 30 MG TAB PO SCH (08:50)
[2016-07-30] MEDS: FLUoxetine HCL 10 MG CAP PO SCH (08:50)
[2016-07-30] MEDS: DOCUSATE SODIUM 50 MG/SENNA 8.6 MG TAB PO SCH ×2 (08:51→21:00)
[2016-07-30] MEDS: MEGESTROL ACETATE SUSP 400 MG/10 ML CUP PO SCH (08:52)
--- NOTE | 2016-07-30 08:52 | PD.PLAS.PN ---
Subjective Remarks Patient is status post panniculectomy for necrotic wounds on 06/28/16 and debridement of wounds of the abdomen, hips and sacrum on 07/19/16. Objective Vital Signs Date Time Temp Pulse Resp B/P Pulse Ox O2 Delivery O2 Flow Rate FiO2 07/30/16 08:00 98.1 58 20 154/70 99 07/30/16 04:00 98.2 50 17 143/65 99 07/30/16 00:00 98.3 93 18 112/67 99 07/29/16 21:00 55 07/29/16 20:50 99.0 55 18 153/60 100 07/29/16 20:00 Room Air 07/29/16 16:00 98.0 57 20 142/67 99 07/29/16 12:00 98.0 56 18 127/56 96 I/O 07/29/16 07/29/16 07/29/16 07/30/16 07/30/16 07/30/16 06:59 14:59 22:59 06:59 14:59 22:59 Intake Total 240 ml 480 ml Balance 240 ml 480 ml Intake Oral 240 ml 480 ml # Voids 1 1 # Bowel Movements 0 0 Result Diagram: 07/28/16 1338 07/28/16 1338 Exam Findings Patient is sitting comfortably in bed. Wounds are healing well. There is no odor or evidence of infection. Wound beds have a mixture of pink tissue and slough. Assessment and Plan Diagnosis: (1) Pressure ulcer of coccygeal region (2) Wound dehiscence, surgical Assessment and Plan Wounds are progressing well. Patient has been working with PT. Dressing instructions are reviewed with the RN. Dana Romero July 30, 2016 08:52
[2016-07-30] MEDS: SODIUM CHLORIDE 0.9% FLUSH 10 ML FLUSH IV FLUSH SCH ×2 (08:53→21:00)
[2016-07-30] MEDS: SODIUM HYPOCHLORITE 0.25% 500 ML BTL TOPICAL SCH (08:53)
[2016-07-30] MEDS: POVIDONE IODINE 10% SOLN 118 ML BOTTLE TOP SCH (08:54)
[2016-07-30] MEDS: SEVELAMER CARBONATE 800 MG TAB PO SCH ×3 (08:54→18:00)
[2016-07-30] MEDS: EPOETIN ALFA 10,000 UNITS/ML VIAL IV PRN (10:21)
--- NOTE | 2016-07-30 13:42 | HHI.PR ---
Subjective Remarks Follow up nonhealing abdominal wound and pressure ulcer of coccygeal region. Patient seen and examined while patient in dialysis unit. Patient lying comfortably in bed, awake and alert, with no new acute complaints. Denies any recent headache, fever, chills, shortness of breath, cough, abdominal pain, n/v , or dysuria. Objective Vitals Vital Signs Date Time Temp Pulse Resp B/P Pulse Ox O2 Delivery O2 Flow Rate FiO2 07/30/16 08:45 Room Air 07/30/16 08:00 98.1 58 20 154/70 99 07/30/16 04:00 98.2 50 17 143/65 99 07/30/16 00:00 98.3 93 18 112/67 99 07/29/16 21:00 55 07/29/16 20:50 99.0 55 18 153/60 100 07/29/16 20:00 Room Air 07/29/16 16:00 98.0 57 20 142/67 99 I/O 07/29/16 07/29/16 07/29/16 07/30/16 07/30/16 07/30/16 07:00 15:00 23:00 07:00 15:00 23:00 Intake Total 240 ml 480 ml Output Total 1600 ml Balance 240 ml 480 ml -1600 ml Intake Oral 240 ml 480 ml Hemodialysis 1600 ml # Voids 1 1 # Bowel Movements 0 0 Result Diagram: 07/28/16 1338 07/28/16 1338 Objective Remarks GENERAL: Morbidly obese, well-developed patient who is in NAD. SKIN: Warm and dry. No rash. Abdominal dressing c/d/i, no drainage noted on wound dressings. HEENT: Normocephalic. Pupils equal and round. No scleral icterus. No injection or drainage. No nasal bleeding or discharge. Mucous membranes pink and moist. Neck supple. Trachea midline. CARDIOVASCULAR: Regular rate and rhythm. S1, S2 noted. No murmur appreciated. RESPIRATORY: No accessory muscle use. Diminished in bilateral anterior lower lobes. Breath sounds equal bilaterally. GASTROINTESTINAL: Abdomen round, soft, non-tender, nondistended. Normoactive bowel sounds x4. MUSCULOSKELETAL: No obvious deformities. Extremities without clubbing, cyanosis , or edema. 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 NEUROLOGICAL: Awake and alert. No obvious cranial nerve deficits. Motor grossly within normal limits. Normal speech. PSYCHIATRIC: Appropriate mood and affect; insight and judgment normal. A/P Assessment and Plan Ms. Foley is a 55-year-old female with a known history of CAD with stent placement, CHF, diabetes mellitus, ESRD on hemodialysis, hypertension and spinal stenosis with chronic back pain. Patient had a recent hospitalization from 05/14/16 to 07/03/16 and at that time had a large abdominal wound in her abdominal pannus with cellulitis. During that hospitalization she underwent multiple surgery with excision of the large open wound, debridement. There were several wound cultures done 1 on admission, and another one from her original excisional surgery and it had pseudomonas aeruginosa. Patient received IV antibiotics from 05/14/16-06/07/16. She had more debridement on 05/26/16, and on 06/28/16 the patient had wide excision of the necrotic lower or abdominal pannus, panniculectomy, and partial closure of the wound. She apparently had [address], and she was discharged to the skilled nursing on 07/03/16. Admitted with infected wound and wound dehiscence. Abdominal wound dehiscence Coccygeal pressure ulcer - Status post debridement of abdominal and sacral wounds on 07/[address] Meyers. Wound vac now dc'd. - Wound cultures growing pseudomonas aeruginose and enterococcus faecium VRE. Blood cultures drawn, NGTD. - ID signed off with recommendations, continue meropenem 500 mg IV Q24hr until 08/01. - Previously on Zerbaxa and Primaxin, finished course. - Wound care last saw patient 07/25 and will be seeing patient weekly. Continued recommendations from plastic surgery standpoint for wound management. Continue special bed and mattress. - Monitor pressure ulcer of coccygeal region. Diarrhea - Has improved over the past 24 hours. Will obtain C.diff stool specimen with next BM. - Imodium available if needed. - Monitor hydration and electrolytes closely. Morbid obesity: strongly recommended diet and exercise, weight loss warranted. Hypertension: Continue home medications as indicated. Type 2 Diabetes: Continue sliding scale insulin, cover as needed. Encourage healthy eating and compliance with 2200 ADA diabetic diet. Investor Relations Coordinator has seen patient. Anxiety: Controlled for today. Continue Xanax 0.125 mg PO PRN anxiety. End stage renal disease: On hemodialysis T, TH, Sat. Nephrology following. Other chronic medical conditions include hyperlipidemia, hypothyroidism, dyslipidemia, depression and spinal stenosis, all are stable at this time. Continue current treatment and medications as indicated. Control pain: Continue Methadone 5 mg PO Q8h scheduled and [place] PO per pain scale. Monitor. DVT prophylaxis: Heparin 5,000 units sq Q12h. Discussed with patient and Dr. Turner. Anjelica Farley July 30, 2016 13:42
--- NOTE | 2016-07-30 13:50 | HHI.NPPN ---
Subjective General Problems: Anemia, Edema, Hypertension Renal Failure: End Stage Renal Disease History of Present Illness 55-year-old female with past medical history of hypertension, morbid obesity, history of multiple abdominal wall, diabetes mellitus, ischemic heart disease, hypothyroidism, spinal stenosis and end-stage renal disease on hemodialysis three times per week who came to the hospital because of worsening pain in her wound. Additional Remarks Patient is alert, seen in AM during HD, feeling better, has loose BM. Review of Systems Respiratory Lungs: SOB, Wheeze Cardiovascular Cardiac: GRIFFIN Gastrointestinal Gastrointestinal: Abdominal Pain Objective Data Data 07/29/16 07/30/16 18:59 06:59 Intake Total 480 ml Balance 480 ml Intake Oral 480 ml # Voids 1 # Bowel Movements 0 Vital Signs Date Time Temp Pulse Resp B/P Pulse Ox O2 Delivery O2 Flow Rate FiO2 07/30/16 08:45 Room Air 07/30/16 08:00 98.1 58 20 154/70 99 07/30/16 04:00 98.2 50 17 143/65 99 07/30/16 00:00 98.3 93 18 112/67 99 07/29/16 21:00 55 07/29/16 20:50 99.0 55 18 153/60 100 07/29/16 20:00 Room Air 07/29/16 16:00 98.0 57 20 142/67 99 -: 07/28/16 1338 07/28/16 1338 Physical Exam General Appearance: No Acute Distress, Comfortable Eyes Eye Exam: Pupils Equal Throat Throat Exam: Oral Mucosa [place] & Moist Neck Neck Exam: Neck Supple Pulmonary Resp Exam: Breath Sounds Equal, No Distress, Rhonchi, Decreased Bases Cardiology CV Exam: Regular, Normal Sinus Rhythm Gastrointestinal/Abdomen GI Exam: Soft, Bowel Sounds Present, Distended Extremeties Extremities Exam: Moderate Edema, Pitting Edema, Dependent Edema Neurologic Neuro Exam: Alert, Awake, Oriented Psychiatric Psych Exam: Appropriate Responses Assessment/Plan Assessment Summary: Anemia of CKD, Hypertension, End Stage Renal Disease Problem List: (1) Anemia in chronic kidney disease (CKD) (2) Anxiety (3) Open wound of abdomen (4) Infected surgical wound (5) Type II diabetes mellitus with neurological manifestations, uncontrolled (6) End stage kidney disease Plan On HD, TTS. BP is stable. wound cultures growing Pseudomonas and Enterococcus. On Epogen for anemia. Transfuse as needed. BP is stable.Surgical wound debridement HD to continue TTS. Has low Albumin, on PO protein supplement. Her Albumin is low, on PO supplement, also started on Megace and appetite is better. HD now and getting IDPN, try to remove 3 liters. Problem Qualifiers (1) Infected surgical wound: Qualified Code: T81.4XXA - Infected surgical wound, initial encounter Valentin Jimenez MD July 30, 2016 13:50 Qualified Code: T81.4XXA - Infected surgical wound, initial encounter Valentin Jimenez MD July 30, 2016 13:50
[2016-07-30 17:34] VITALS: BP 116/53; PULSE 58; RESP 22; TEMP 98.6; O2SAT 100
[2016-07-30] MEDS: MEROPENEM INJ 500 MG in SODIUM CHLORIDE 0.9% INJ 100 ML IV SCH (17:37)
[2016-07-30 20:00] VITALS: BP 115/56; PULSE 59; RESP 18; TEMP 98.5; O2SAT 96
[2016-07-30] MEDS: ATORVASTATIN 80 MG TAB PO SCH (21:35)
[2016-07-30] MEDS: ALPRAZolam 0.25 MG TAB PO PRN (23:57)
[2016-07-31] VITALS: BP 141/64; PULSE 54; RESP 18; TEMP 98.2; O2SAT 97
[2016-07-31] MEDS: METHADONE HCL 10 MG TAB PO SCH ×3 (03:00→18:45)
[2016-07-31 04:00] VITALS: BP 92/49; PULSE 53; RESP 18; TEMP 98.6; O2SAT 96
[2016-07-31] MEDS: LEVOTHYROXINE SODIUM 150 MCG TAB PO SCH (06:28)
[2016-07-31] MEDS: INSULIN NovoLIN REGULAR SUPPLEMENTAL SCALE SQ SCH ×4 (06:33→21:00)
[2016-07-31 08:00] VITALS: BP 118/59; PULSE 56; RESP 20; TEMP 98.1; O2SAT 96
[2016-07-31] MEDS: FLUoxetine HCL 10 MG CAP PO SCH (09:15)
[2016-07-31] MEDS: CALCITRIOL 0.25 MCG CAP PO SCH (09:15)
[2016-07-31] MEDS: CINACALCET HYDROCHLORIDE 30 MG TAB PO SCH (09:15)
[2016-07-31] MEDS: GABAPENTIN 100 MG CAP PO SCH ×2 (09:15→21:43)
[2016-07-31] MEDS: SEVELAMER CARBONATE 800 MG TAB PO SCH ×3 (09:15→17:27)
[2016-07-31] MEDS: DOCUSATE SODIUM 50 MG/SENNA 8.6 MG TAB PO SCH ×3 (09:15→21:00)
[2016-07-31] MEDS: MEGESTROL ACETATE SUSP 400 MG/10 ML CUP PO SCH (09:15)
[2016-07-31] MEDS: ASPIRIN EC 81 MG TABEC PO SCH (09:15)
[2016-07-31] MEDS: SODIUM CHLORIDE 0.9% FLUSH 10 ML FLUSH IV FLUSH SCH ×2 (09:16→21:43)
[2016-07-31] MEDS: SODIUM HYPOCHLORITE 0.25% 500 ML BTL TOPICAL SCH (09:17)
[2016-07-31] MEDS: POVIDONE IODINE 10% SOLN 118 ML BOTTLE TOP SCH (09:17)
[2016-07-31] MEDS: ACETAMINOPHEN/HYDROcodone 325 MG/10 MG TAB PO PRN ×3 (09:23→21:44)
--- NOTE | 2016-07-31 11:24 | HHI.PR ---
Subjective Remarks Follow up nonhealing abdominal wound and pressure ulcer of coccygeal region. Patient seen and examined. Lying in bed comfortably, son at bedside. All questions answered. Patient denies any new acute complaints. Diarrhea has slowed , still awaiting c difficile specimen. Denies any recent fever, chills, shortness of breath, cough, abdominal pain, n/v, or dysuria. Wound dressing changed yesterday, minimal drainage, patient admits to pain being controlled. Objective Vitals Vital Signs Date Time Temp Pulse Resp B/P Pulse Ox O2 Delivery O2 Flow Rate FiO2 07/31/16 10:29 18 07/31/16 08:00 98.1 56 20 118/59 96 07/31/16 07:46 Room Air 07/31/16 04:00 98.6 53 18 92/49 96 07/31/16 00:00 98.2 54 18 141/64 97 07/30/16 20:00 98.5 59 18 115/56 96 07/30/16 20:00 Room Air 07/30/16 17:34 98.6 58 22 116/53 100 I/O 07/30/16 07/30/16 07/30/16 07/31/16 07/31/16 07/31/16 07:00 15:00 23:00 07:00 15:00 23:00 Intake Total 720 ml 240 ml 480 ml Output Total 1600 ml Balance -880 ml 240 ml 480 ml Intake Oral 720 ml 240 ml 480 ml Hemodialysis 1600 ml # Voids 0 0 # Bowel Movements 0 0 Result Diagram: 07/28/16 1338 07/28/16 1338 Objective Remarks GENERAL: Morbidly obese, well-developed patient who is in NAD. SKIN: Warm and dry. No rash. Abdominal dressing c/d/i, minimal drainage to dressing. HEENT: Normocephalic. Pupils equal and round. No scleral icterus. No injection or drainage. No nasal bleeding or discharge. Mucous membranes pink and moist. Neck supple. Trachea midline. CARDIOVASCULAR: Regular rate and rhythm. S1, S2 noted. No murmur appreciated. RESPIRATORY: No accessory muscle use. Diminished in bilateral anterior lower lobes. Breath sounds equal bilaterally. GASTROINTESTINAL: Abdomen round, soft, non-tender, nondistended. Normoactive bowel sounds x4. MUSCULOSKELETAL: No obvious deformities. Extremities without clubbing, cyanosis , or edema. 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 NEUROLOGICAL: Awake and alert. No obvious cranial nerve deficits. Motor grossly within normal limits. Normal speech. PSYCHIATRIC: Appropriate mood and affect; insight and judgment normal. A/P Assessment and Plan Ms. Foley is a 55-year-old female with a known history of CAD with stent placement, CHF, diabetes mellitus, ESRD on hemodialysis, hypertension and spinal stenosis with chronic back pain. Patient had a recent hospitalization from 05/14/16 to 07/03/16 and at that time had a large abdominal wound in her abdominal pannus with cellulitis. During that hospitalization she underwent multiple surgery with excision of the large open wound, debridement. There were several wound cultures done 1 on admission, and another one from her original excisional surgery and it had pseudomonas aeruginosa. Patient received IV antibiotics from 05/14/16-06/07/16. She had more debridement on 05/26/16, and on 06/28/16 the patient had wide excision of the necrotic lower or abdominal pannus, panniculectomy, and partial closure of the wound. She apparently had [address], and she was discharged to the intermediate on 07/03/16. Admitted with infected wound and wound dehiscence. Abdominal wound dehiscence Coccygeal pressure ulcer - Status post debridement of abdominal and sacral wounds on 07/[address] Meyers. Wound vac now dc'd. - Wound cultures growing pseudomonas aeruginose and enterococcus faecium VRE. Blood cultures drawn, NGTD. - ID signed off with recommendations, continue meropenem 500 mg IV Q24hr until 08/01. - Previously on Zerbaxa and Primaxin, finished course. - Wound care last saw patient 07/25 and will be seeing patient weekly. Continued recommendations from plastic surgery standpoint for wound management. Continue special bed and mattress. - Monitor pressure ulcer of coccygeal region. Diarrhea - Has improved over the past 24 hours. Awaiting C.diff stool specimen with next BM. - Imodium available if needed. - Monitor hydration and electrolytes closely. Hypoalbuminemia: Albumin 1.3 on 07/28. Nepro ordered TID with every meal. Encouraged increase PO protein intake. Will continue to monitor. Morbid obesity: strongly recommended diet and exercise, weight loss warranted. Hypertension: Continue home medications as indicated. Type 2 Diabetes: Continue sliding scale insulin, cover as needed. Encourage healthy eating and compliance with 2200 ADA diabetic diet. Contact Center Manager has seen patient. Anxiety: Controlled for today. Continue Xanax 0.125 mg PO PRN anxiety. End stage renal disease: On hemodialysis T, TH, Sat. Nephrology following. Other chronic medical conditions include hyperlipidemia, hypothyroidism, dyslipidemia, depression and spinal stenosis, all are stable at this time. Continue current treatment and medications as indicated. Control pain: Continue Methadone 5 mg PO Q8h scheduled and [place] PO per pain scale. Monitor. DVT prophylaxis: Heparin 5,000 units sq Q12h. Discussed with patient, family( mother at bedside) and Dr. Turner. Attending Statement The patient is in bed. Her mother is at bedside. She has no complaints at this time. Patient says Dr Meyers plastic surgeon has not cleared her for DC and she is reluctant to be discharge. Also case management at bedside who informed me [facility] who is willing edgardo take her today as they have a HD patient bed available. Patient is in bed, she appears in nad. Spoke with Dr Meyers plastic surgery who also came on the floor and evaluated the patient. Dr Meyers cleared the patient for DC. The patient is cleared for DC by the consultants. Patient is on HD and will get parenteral nutrition with HD. Patient last dose of antibiotic is tomorrow 08/01/16, can be given at [place]. Patient, family deciding also case management following . Plan to DC to [place] today. Discussed with the patient, mother at bedside, Dana case management, Dr Meyers plastic surgery, nephrology team. Anjelica Farley July 31, 2016 11:24 Mildred Turner MD July 31, 2016 18:45
[2016-07-31 12:00] VITALS: BP 144/65; PULSE 59; RESP 20; TEMP 98.5; O2SAT 99
[2016-07-31 16:00] VITALS: BP 100/58; PULSE 61; RESP 20; TEMP 98.3; O2SAT 96
[2016-07-31] MEDS ORDERED: MERO1INJ8 IV (16:14)
[2016-07-31] MEDS ORDERED: MEGE40SU PO (16:15)
[2016-07-31] MEDS ORDERED: MECL-62 PO (16:15)
--- NOTE | 2016-07-31 16:15 | HHI.DS ---
Discharge Summary Admission Date July 09, 2016 at 13:09 Discharge Date: July 31, 2016 Admitting Diagnosis infected surgical wound, wound dehiscence, ESRD on HD (1) Anemia in chronic kidney disease (CKD) ICD Code: N18.9 Diagnosis: Secondary (2) Nonhealing nonsurgical wound ICD Code: T14.8 Diagnosis: Principal (3) Pressure ulcer of coccygeal region ICD Code: L89.159 Diagnosis: Secondary (4) Non compliance w medication regimen ICD Code: Z91.14 Diagnosis: Secondary (5) Type II diabetes mellitus with neurological manifestations, uncontrolled ICD Code: E11.49 Diagnosis: Secondary (6) Hypertension, benign ICD Code: I10 Diagnosis: Secondary (7) Sepsis ICD Code: A41.9 Diagnosis: Principal (8) Depression ICD Code: F32.9 Diagnosis: Secondary (9) Malnutrition ICD Code: E46 Diagnosis: Principal (10) Open wound of abdomen ICD Code: S31.109A Diagnosis: Principal (11) End stage renal disease on dialysis ICD Code: N18.6 Diagnosis: Secondary Procedures Status post debridement of abdominal and sacral wounds on 07/[address] Meyers. Brief History - From Admission This is a pleasant 55 y/ female with nonhealing abdominal wound, Just Discharged from this facility some days ago. came for readmission. as we know and taking the Discharge Summary. Large necrotic wound located in the abdominal pannus area with cellulitis -Initially general surgeon was consulted but deferred this to plastic surgeon due to the severity of the wound. -So plastic surgeon was consulted in which Dr. Johnson did an excision large open wound 25 x 15 cm right side lower abdominal pannus on 05/22. -Patient continued to have necrotic tissue so another Excisional debridement of New necrotic area Right side of the abdomen 10x5 cm was done on 05/24. -Patient had another excisional debridement of right lower abdomen, 25 x 15 cm deep wound and right lateral abdomen, 10 x 5 cm superficial wound on 05/27. -On 06/28 patient had Wide excision of necrotic lower abdominal pannus with panniculectomy and partial closure. -per Plastics will allow patient OOB as soon as she can and change dressing with betadine soaked 4x4 directly on the skin daily. -watch for any further necrotic spots showing up. Keep sutures / nba for approx 2 weeks unless they get inflamed. Drains probably 2-3 weeks as well. -Dealt with Dr. Johnson over the phone in regards to discharge to SNF and he agreed to the discharge. -Dr. Meyers requested prophylaxis antibiotics ? so patient put on doxycycline. -During the treatment of patient's wound she was put on antibiotics. ID consulted and was managing. Treated empirically with vancomycin and Zosyn. Later she was switched to cefepime. Patient completed her antibiotic course during hospitalization and cellulitis resolved during sedation. She has Morbid Obesity, Hypertension, DM II Hemoglobin A1C 6.8, Hyperlipidemia, ESRD on HD Friday, and Friday, Chronic low back pain, Anemia of chronic disease, Patient declined GI recommendations for EGD and Colonoscopy, Coccygeal stress ulcer discharged to SNF. [facility], with Pain around the surgical wound of her abdomen and chronic wound of the buttocks, has dehiscence of the abdominal wound and copious drainage, as per firearms specialist recommended Zosyn and he will come and evaluate the Patient. Seen in Emergency room in the presence of her Son Mr. Winter. CBC/BMP: 07/28/16 1338 07/28/16 1338 PE at Discharge GENERAL: Morbidly obese, well-developed patient who is in NAD. SKIN: Warm and dry. No rash. Abdominal dressing c/d/i, minimal drainage to dressing. HEENT: Normocephalic. Pupils equal and round. No scleral icterus. No injection or drainage. No nasal bleeding or discharge. Mucous membranes pink and moist. Neck supple. Trachea midline. CARDIOVASCULAR: Regular rate and rhythm. S1, S2 noted. No murmur appreciated. RESPIRATORY: No accessory muscle use. Diminished in bilateral anterior lower lobes. Breath sounds equal bilaterally. GASTROINTESTINAL: Abdomen round, soft, non-tender, nondistended. Normoactive bowel sounds x4. MUSCULOSKELETAL: No obvious deformities. Extremities without clubbing, cyanosis , or edema. 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 NEUROLOGICAL: Awake and alert. No obvious cranial nerve deficits. Motor grossly within normal limits. Normal speech. PSYCHIATRIC: Appropriate mood and affect; insight and judgment normal. Hospital Course Ms. Foley is a 55-year-old female with a known history of CAD with stent placement, CHF, diabetes mellitus, ESRD on hemodialysis, hypertension and spinal stenosis with chronic back pain. Patient had a recent hospitalization from 05/14/16 to 07/03/16 and at that time had a large abdominal wound in her abdominal pannus with cellulitis. During that hospitalization she underwent multiple surgery with excision of the large open wound, debridement. There were several wound cultures done 1 on admission, and another one from her original excisional surgery and it had pseudomonas aeruginosa. Patient received IV antibiotics from 05/14/16-06/07/16. She had more debridement on 05/26/16, and on 06/28/16 the patient had wide excision of the necrotic lower or abdominal pannus, panniculectomy, and partial closure of the wound. She apparently had [address], and she was discharged to the intermediate on 07/03/16. Admitted with infected wound and wound dehiscence. Abdominal wound dehiscence Coccygeal pressure ulcer - Status post debridement of abdominal and sacral wounds on 07/[address] Meyers. Wound vac now dc'd. - Wound cultures growing pseudomonas aeruginose and enterococcus faecium VRE. Blood cultures drawn, NGTD. - ID signed off with recommendations, continue meropenem 500 mg IV Q24hr until 08/01. - Previously on Zerbaxa and Primaxin, finished course. - Wound care last saw patient 07/25 and will be seeing patient weekly. Continued recommendations from plastic surgery standpoint for wound management. Continue special bed and mattress. - Monitor pressure ulcer of coccygeal region. Diarrhea - Has improved over the past 24 hours. Awaiting C.diff stool specimen with next BM. - Imodium available if needed. - Monitor hydration and electrolytes closely. Hypoalbuminemia: Albumin 1.3 on 07/28. Nepro ordered TID with every meal. Encouraged increase PO protein intake. Will continue to monitor. parenteral nutrition with HD per nephrology. Morbid obesity: strongly recommended diet and exercise, weight loss warranted. Hypertension: Continue home medications as indicated. Type 2 Diabetes: Continue sliding scale insulin, cover as needed. Encourage healthy eating and compliance with 2200 ADA diabetic diet. Automobile Insurance Claim Examiner has seen patient. Anxiety: Controlled for today. Continue Xanax 0.125 mg PO PRN anxiety. End stage renal disease: On hemodialysis T, TH, Sat. Nephrology following. Other chronic medical conditions include hyperlipidemia, hypothyroidism, dyslipidemia, depression and spinal stenosis, all are stable at this time. Continue current treatment and medications as indicated. Control pain: Continue Methadone 5 mg PO Q8h scheduled and [place] PO per pain scale. Monitor. DVT prophylaxis: Heparin 5,000 units sq Q12h. Spoke with Dr Meyers plastic surgery who also came on the floor and evaluated the patient. Dr Meyers cleared the patient for DC. The patient is cleared for DC by the consultants. Patient is on HD and will get parenteral nutrition with HD. Patient last dose of antibiotic is 08/01/16, can be given at [place]. Patient has improved, cleared by consultants for DC, to follow up as OP with PCP and consultants. Pt Condition on Discharge: Stable Discharge Disposition: Disch to Another Hospital ([place] ) Discharge Time: > 30 minutes Discharge Instructions DIET: Follow Instructions for: Diabetic Diet, High Protein Diet Activities you can perform: Regular-No Restrictions Follow up Referrals: PCP Follow-up - 1 Week Plastic Surgery - 1 Week with sumit meyers New Medications: Meropenem Inj (Meropenem Inj) 1 Gm/50 Ml Bag 1000 MG IV Q24H Infection #1 Ref 0 BAG Meclizine (Meclizine) 25 Mg Tab 25 MG PO TID PRN VERTIGO #30 CAP Megestrol Liq (Megestrol Liq) 40 Mg/Ml Susp 400 MG PO DAILY increase appetite #30 CAP Continued Medications: Aspirin DR (Aspirin 81) 81 Mg Tabdr 81 MG PO DAILY Ref 0 TAB Calcitriol (Calcitriol) 0.5 Mcg Cap 0.5 MCG PO DAILY Calcium Supplement #30 Ref 0 CAP Cholecalciferol (Vitamin D3) 10,000 Unit Tab 85384 UNITS PO BID Nutritional Supplement #1 Ref 0 BOTTLE Cinacalcet (Sensipar) 30 Mg Tab 30 MG PO DAILY CKD #30 Ref 0 TAB Fluoxetine (Prozac) 10 Mg Cap 10 MG PO DAILY Depression Control #30 Ref 0 CAP Gabapentin (Gabapentin) 100 Mg Cap 100 MG PO BID #60 Ref 0 CAP Hydrocodone-Acetaminophen (Hydrocodone-Acetaminophen) 5-325 mg Tab 1 TAB PO Q4H PRN pain #20 Ref 0 TAB Insulin Detemir Inj (Levemir Inj) 1,000 unit/ 10 ML Vial 10 UNITS SQ DAILY Do not mix with any other Insulin. Blood Sugar Management Ref 0 VIAL Insulin Detemir Inj (Levemir Inj) 1,000 unit/ 10 ML Vial 5 UNITS SQ HS Hold for BS less than 100mg/dl Blood Sugar Management Ref 0 VIAL Levothyroxine (Levothyroxine) 200 Mcg Tab 400 MCG PO DAILY Thyroid #30 Ref 0 TAB Methadone (Dolophine) 10 Mg Tab 5 MG PO Q8HR chronic pain #20 Ref 0 TAB Methylcobalamin (B-12) 1,000 Mcg Sub 1000 MCG PO DAILY Povidone-Iodine Topical (Betadine Topical) 10% Soln 1 APPLIC TOPICAL Q8HR Apply to abdominal wound every shift-apply betadine soaked ABD pad and secure w/tape #59 ML Povidone-Iodine Topical (Betadine Topical) 10% Soln 1 APPLIC TOPICAL DAILY Apply to rt hip wound after nss wash then cover w/dsd daily #59 ML Sennosides-Docusate Sodium (Senna Plus 8.6-50 mg) 1 Tab Tab 1 TAB PO BID constipation #30 Ref 0 TAB Sevelamer Carbonate (Renvela) 800 Mg Tab 1600 MG PO TID CKD #90 Ref 0 TAB Discontinued Medications: Doxycycline Hyclate (Doxycycline Hyclate) 100 Mg Cap 100 MG PO BID prophylaxis antbiotics. Days 10 Ref 0 CAP Lactobacillus Acidophilus (Probiotic) 1 Cap Cap 2 CAP PO BID Nutritional Supplement Ref 0 CAP Meclizine (Meclizine) 25 Mg Tab 25 MG PO TID PRN VERTIGO Ref 0 TAB Metronidazole (Flagyl) 500 Mg Tab 500 MG PO TID Infection Days 7 Ref 0 TAB Anjelica Farley July 31, 2016 16:15 Mildred Turner MD July 31, 2016 18:37
[2016-07-31] MEDS: MEROPENEM INJ 500 MG in SODIUM CHLORIDE 0.9% INJ 100 ML IV SCH (16:18)
[2016-07-31] MEDS: SODIUM CHLORIDE 0.9% FLUSH 10 ML FLUSH IV FLUSH PRN (16:37)
--- NOTE | 2016-07-31 16:37 | HHI.NPPN ---
Subjective General Problems: Anemia, Edema, Hypertension Renal Failure: End Stage Renal Disease History of Present Illness 55-year-old female with past medical history of hypertension, morbid obesity, history of multiple abdominal wall, diabetes mellitus, ischemic heart disease, hypothyroidism, spinal stenosis and end-stage renal disease on hemodialysis three times per week who came to the hospital because of worsening pain in her wound. Additional Remarks Patient is alert, has mild abd. pain, no SOB. Review of Systems Respiratory Lungs: SOB, Wheeze Cardiovascular Cardiac: GRIFFIN Gastrointestinal Gastrointestinal: Abdominal Pain Objective Data Data 07/30/16 07/31/16 19:00 07:00 Intake Total 720 ml 720 ml Output Total 1600 ml Balance -880 ml 720 ml Intake Oral 720 ml 720 ml Hemodialysis 1600 ml # Voids 0 # Bowel Movements 0 Vital Signs Date Time Temp Pulse Resp B/P Pulse Ox O2 Delivery O2 Flow Rate FiO2 07/31/16 12:05 16 07/31/16 12:00 98.5 59 20 144/65 99 07/31/16 10:29 18 07/31/16 08:00 98.1 56 20 118/59 96 07/31/16 07:46 Room Air 07/31/16 04:00 98.6 53 18 92/49 96 07/31/16 00:00 98.2 54 18 141/64 97 07/30/16 20:00 98.5 59 18 115/56 96 07/30/16 20:00 Room Air 07/30/16 17:34 98.6 58 22 116/53 100 -: 07/28/16 1338 07/28/16 1338 Physical Exam General Appearance: No Acute Distress, Comfortable Eyes Eye Exam: Pupils Equal Throat Throat Exam: Oral Mucosa [place] & Moist Neck Neck Exam: Neck Supple Pulmonary Resp Exam: Breath Sounds Equal, No Distress, Rhonchi, Decreased Bases Cardiology CV Exam: Regular, Normal Sinus Rhythm Gastrointestinal/Abdomen GI Exam: Soft, Bowel Sounds Present, Distended Extremeties Extremities Exam: Moderate Edema, Pitting Edema, Dependent Edema Neurologic Neuro Exam: Alert, Awake, Oriented Psychiatric Psych Exam: Appropriate Responses Assessment/Plan Assessment Summary: Anemia of CKD, Hypertension, End Stage Renal Disease Problem List: (1) Anemia in chronic kidney disease (CKD) (2) Anxiety (3) Open wound of abdomen (4) Infected surgical wound (5) Type II diabetes mellitus with neurological manifestations, uncontrolled (6) End stage kidney disease Plan On HD, TTS. BP is stable. wound cultures growing Pseudomonas and Enterococcus. On Epogen for anemia. Transfuse as needed. BP is stable.Surgical wound debridement HD to continue TTS. Has low Albumin, on PO protein supplement. Her Albumin is low, on PO supplement, also started on Megace and appetite is better. Patient has been arranged to go to [place], she want to stay here. D/W her about going to get more PT. HD is due in AM. Problem Qualifiers (1) Infected surgical wound: Qualified Code: T81.4XXA - Infected surgical wound, initial encounter Valentin Jimenez MD July 31, 2016 16:37
[2016-07-31 20:00] VITALS: BP 107/3; PULSE 59; PULSE 60; RESP 18; TEMP 98.7; O2SAT 98
[2016-07-31] MEDS: ATORVASTATIN 80 MG TAB PO SCH (21:43)
[2016-08-01] VITALS: BP 105/50; PULSE 54; RESP 18; TEMP 98.9; O2SAT 96
[2016-08-01] MEDS: METHADONE HCL 10 MG TAB PO SCH ×2 (02:51→12:23)
[2016-08-01 04:00] VITALS: BP 101/53; PULSE 58; RESP 18; TEMP 98.3; O2SAT 98
[2016-08-01] MEDS: LEVOTHYROXINE SODIUM 150 MCG TAB PO SCH (06:32)
[2016-08-01] MEDS: INSULIN NovoLIN REGULAR SUPPLEMENTAL SCALE SQ SCH ×2 (06:35→12:05)
[2016-08-01 08:00] VITALS: BP 167/70; PULSE 55; RESP 18; TEMP 98.4; O2SAT 97
[2016-08-01] MEDS: CINACALCET HYDROCHLORIDE 30 MG TAB PO SCH (09:07)
[2016-08-01] MEDS: CALCITRIOL 0.25 MCG CAP PO SCH (09:07)
[2016-08-01] MEDS: ASPIRIN EC 81 MG TABEC PO SCH (09:07)
[2016-08-01] MEDS: SODIUM HYPOCHLORITE 0.25% 500 ML BTL TOPICAL SCH (09:07)
[2016-08-01] MEDS: DOCUSATE SODIUM 50 MG/SENNA 8.6 MG TAB PO SCH (09:07)
[2016-08-01] MEDS: SEVELAMER CARBONATE 800 MG TAB PO SCH ×2 (09:07→12:23)
[2016-08-01] MEDS: SODIUM CHLORIDE 0.9% FLUSH 10 ML FLUSH IV FLUSH SCH (09:07)
[2016-08-01] MEDS: GABAPENTIN 100 MG CAP PO SCH (09:07)
[2016-08-01] MEDS: MEGESTROL ACETATE SUSP 400 MG/10 ML CUP PO SCH (09:07)
[2016-08-01] MEDS: POVIDONE IODINE 10% SOLN 118 ML BOTTLE TOP SCH (09:07)
[2016-08-01] MEDS: FLUoxetine HCL 10 MG CAP PO SCH (09:07)
[2016-08-01 09:18] VITALS: PULSE 56
[2016-08-01 12:00] VITALS: BP 171/75; PULSE 62; RESP 20; TEMP 99.2; O2SAT 98
[2016-08-01] MEDS: ALPRAZolam 0.25 MG TAB PO PRN (12:15)
[2016-08-01] MEDS: ACETAMINOPHEN/HYDROcodone 325 MG/10 MG TAB PO PRN (12:20)
--- NOTE | 2016-08-01 12:41 | HHI.NPPN ---
Subjective General Problems: Anemia, Edema, Hypertension Renal Failure: End Stage Renal Disease History of Present Illness 55-year-old female with past medical history of hypertension, morbid obesity, history of multiple abdominal wall, diabetes mellitus, ischemic heart disease, hypothyroidism, spinal stenosis and end-stage renal disease on hemodialysis three times per week who came to the hospital because of worsening pain in her wound. Additional Remarks Patient is alert, now getting ready to go to [place], no SOB. Review of Systems Respiratory Lungs: SOB, Wheeze Cardiovascular Cardiac: GRIFFIN Gastrointestinal Gastrointestinal: Abdominal Pain Objective Data Data 07/31/16 08/01/16 19:00 07:00 Intake Total 840 ml 960 ml Output Total 0 ml Balance 840 ml 960 ml Intake Oral 840 ml 960 ml Output Urine Total 0 ml # Voids 1 0 # Bowel Movements 0 0 Vital Signs Date Time Temp Pulse Resp B/P Pulse Ox O2 Delivery O2 Flow Rate FiO2 08/01/16 09:18 56 08/01/16 09:18 Room Air 08/01/16 08:00 98.4 55 18 167/70 97 08/01/16 04:00 98.3 58 18 101/53 98 08/01/16 04:00 Room Air 08/01/16 00:00 98.9 54 18 105/50 96 08/01/16 00:00 Room Air 07/31/16 20:00 98.7 59 18 107/3 98 07/31/16 20:00 Room Air 07/31/16 20:00 60 07/31/16 17:27 18 07/31/16 16:00 98.3 61 20 100/58 96 -: 07/28/16 1338 07/28/16 1338 Physical Exam General Appearance: No Acute Distress, Comfortable Eyes Eye Exam: Pupils Equal Throat Throat Exam: Oral Mucosa [place] & Moist Neck Neck Exam: Neck Supple Pulmonary Resp Exam: Breath Sounds Equal, No Distress, Rhonchi, Decreased Bases Cardiology CV Exam: Regular, Normal Sinus Rhythm Gastrointestinal/Abdomen GI Exam: Soft, Bowel Sounds Present, Distended Extremeties Extremities Exam: Moderate Edema, Pitting Edema, Dependent Edema Neurologic Neuro Exam: Alert, Awake, Oriented Psychiatric Psych Exam: Appropriate Responses Assessment/Plan Assessment Summary: Anemia of CKD, Hypertension, End Stage Renal Disease Problem List: (1) Anemia in chronic kidney disease (CKD) (2) Anxiety (3) Open wound of abdomen (4) Infected surgical wound (5) Type II diabetes mellitus with neurological manifestations, uncontrolled (6) End stage kidney disease Plan On HD, TTS. BP is stable. wound cultures growing Pseudomonas and Enterococcus. On Epogen for anemia. Transfuse as needed. BP is stable.Surgical wound debridement HD to continue TTS. Has low Albumin, on PO protein supplement. Her Albumin is low, on PO supplement, also started on Megace and appetite is better. She refused HD today. Now for D/C, to check BMP in AM. HD tomorrow or Sat. as per Nephrology there. Problem Qualifiers (1) Infected surgical wound: Qualified Code: T81.4XXA - Infected surgical wound, initial encounter Valentin Jimenez MD August 01, 2016 12:41
--- NOTE | 2016-08-01 14:35 | HHI.PR ---
Subjective Remarks Follow up nonhealing abdominal wound and pressure ulcer of coccygeal region. Patient seen and examined. Patient has been given a bed at [facility]. Patient very adamant about refusing dialysis today before the transfer. States she wants to spend this time with her family while she has the time before transfer to other facility. Patient educated on importance of dialysis and treatment and encouraged to receive dialysis today. Patient continuously refusing. Dr. Jimenez called and updated about situation and her refusal, will see her before transfer. Denies any new acute medical complaints. Objective Vitals Vital Signs Date Time Temp Pulse Resp B/P Pulse Ox O2 Delivery O2 Flow Rate FiO2 08/01/16 12:00 99.2 62 20 171/75 98 08/01/16 09:18 56 08/01/16 09:18 Room Air 08/01/16 08:00 98.4 55 18 167/70 97 08/01/16 04:00 98.3 58 18 101/53 98 08/01/16 04:00 Room Air 08/01/16 00:00 98.9 54 18 105/50 96 08/01/16 00:00 Room Air 07/31/16 20:00 98.7 59 18 107/3 98 07/31/16 20:00 Room Air 07/31/16 20:00 60 07/31/16 17:27 18 07/31/16 16:00 98.3 61 20 100/58 96 I/O 07/31/16 07/31/16 07/31/16 08/01/16 08/01/16 08/01/16 07:00 15:00 23:00 07:00 15:00 23:00 Intake Total 480 ml 840 ml 480 ml 480 ml Output Total 0 ml Balance 480 ml 840 ml 480 ml 480 ml Intake Oral 480 ml 840 ml 480 ml 480 ml Output Urine Total 0 ml # Voids 0 1 0 # Bowel Movements 0 0 0 0 Result Diagram: 07/28/16 1338 07/28/16 1338 Objective Remarks GENERAL: Morbidly obese, well-developed patient who is in NAD. SKIN: Warm and dry. No rash. Abdominal dressing c/d/i, minimal drainage to dressing. HEENT: Normocephalic. Pupils equal and round. No scleral icterus. No injection or drainage. No nasal bleeding or discharge. Mucous membranes pink and moist. Neck supple. Trachea midline. CARDIOVASCULAR: Regular rate and rhythm. S1, S2 noted. No murmur appreciated. RESPIRATORY: No accessory muscle use. Diminished in bilateral anterior lower lobes. Breath sounds equal bilaterally. GASTROINTESTINAL: Abdomen round, soft, non-tender, nondistended. Normoactive bowel sounds x4. MUSCULOSKELETAL: No obvious deformities. Extremities without clubbing, cyanosis , or edema. 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 NEUROLOGICAL: Awake and alert. No obvious cranial nerve deficits. Motor grossly within normal limits. Normal speech. PSYCHIATRIC: Appropriate mood and affect; insight and judgment normal. Procedures Status post debridement of abdominal and sacral wounds on 07/[address] Meyers. A/P Problem List: (1) Anemia in chronic kidney disease (CKD) ICD Code: N18.9 Status: Acute (2) Nonhealing nonsurgical wound ICD Code: T14.8 Status: Acute (3) Pressure ulcer of coccygeal region ICD Code: L89.159 Status: Acute (4) Non compliance w medication regimen ICD Code: Z91.14 Status: Acute (5) Type II diabetes mellitus with neurological manifestations, uncontrolled ICD Code: E11.49 Status: Chronic (6) Hypertension, benign ICD Code: I10 Status: Chronic (7) Sepsis ICD Code: A41.9 Status: Acute (8) Depression ICD Code: F32.9 Status: Acute (9) Malnutrition ICD Code: E46 Status: Acute (10) Open wound of abdomen ICD Code: S31.109A Status: Acute (11) End stage renal disease on dialysis ICD Code: N18.6 Status: Chronic Assessment and Plan Ms. Foley is a 55-year-old female with a known history of CAD with stent placement, CHF, diabetes mellitus, ESRD on hemodialysis, hypertension and spinal stenosis with chronic back pain. Patient had a recent hospitalization from 05/14/16 to 07/03/16 and at that time had a large abdominal wound in her abdominal pannus with cellulitis. During that hospitalization she underwent multiple surgery with excision of the large open wound, debridement. There were several wound cultures done 1 on admission, and another one from her original excisional surgery and it had pseudomonas aeruginosa. Patient received IV antibiotics from 05/14/16-06/07/16. She had more debridement on 05/26/16, and on 06/28/16 the patient had wide excision of the necrotic lower or abdominal pannus, panniculectomy, and partial closure of the wound. She apparently had [address], and she was [facility] to the [facility] on 07/03/16. Admitted with infected wound and wound dehiscence. Discharge to [facility] today. Abdominal wound dehiscence Coccygeal pressure ulcer - Status post debridement of abdominal and sacral wounds on 07/[address] Meyers. Wound vac now dc'd. - Wound cultures growing pseudomonas aeruginose and enterococcus faecium VRE. Blood cultures drawn, NGTD. - ID signed off with recommendations, continue meropenem 500 mg IV Q24hr until 08/01, will receive last dose at [facility] today. - Previously on Zerbaxa and Primaxin, finished course. - Wound care last saw patient 07/25 and will be seeing patient weekly. Continued recommendations from plastic surgery standpoint for wound management. Continue special bed and mattress. - Monitor pressure ulcer of coccygeal region. Diarrhea - Has improved over the past 24 hours. - Imodium available if needed. - Monitor hydration and electrolytes closely. Hypoalbuminemia: Albumin 1.3 on 07/28. Nepro ordered TID with every meal. Encouraged increase PO protein intake. Morbid obesity: strongly recommended diet and exercise, weight loss warranted. Hypertension: Continue home medications as indicated. Type 2 Diabetes: Continue sliding scale insulin, cover as needed. Encourage healthy eating and compliance with 2200 ADA diabetic diet. [employer] has seen patient. Anxiety: Controlled for today. Continue Xanax 0.125 mg PO PRN anxiety. End stage renal disease: On hemodialysis , , Fri. Nephrology following. Updated Dr. Jimenez about refusal. Will see patient before transfer. Encouraged patient to follow through with dialysis today and educated on the importance and possible consequences of refusal. Other chronic medical conditions include hyperlipidemia, hypothyroidism, dyslipidemia, depression and spinal stenosis, all are stable at this time. Continue current treatment and medications as indicated. Control pain: Continue Methadone 5 mg PO Q8h scheduled and [place] PO per pain scale. Monitor. DVT prophylaxis: Heparin 5,000 units sq Q12h. Discussed with patient and Dr. Beckwith Problem Qualifiers (1) Pressure ulcer of coccygeal region: Qualified Code: L89.159 - Pressure ulcer of coccygeal region, unspecified pressure ulcer stage Anjelica Farley August 01, 2016 14:35
== END 2016-08-01 13:29 | DRG 856 ==
LOC: NEPE 11:12 → NEDA 13:09 → N04B 18:58
PROVIDERS: ADMIT Family Medicine; ATTEND Family Medicine
PROC: 0JD70ZZ Extraction of Back Subcutaneous Tissue and Fascia, Open Approach (ICD-10-PCS; 2016-07-19)
PROC: 0JD80ZZ Extraction of Abdomen Subcutaneous Tissue and Fascia, Open Approach (ICD-10-PCS; 2016-07-19)
PROC: 0QBS0ZZ Excision of Coccyx, Open Approach (ICD-10-PCS; 2016-07-19)
PROC: 0JBM0ZZ Excision of Left Upper Leg Subcutaneous Tissue and Fascia, Open Approach (ICD-10-PCS; 2016-07-19)
PROC: 0JBL0ZZ Excision of Right Upper Leg Subcutaneous Tissue and Fascia, Open Approach (ICD-10-PCS; 2016-07-19)
PROC: 0JDM0ZZ Extraction of Left Upper Leg Subcutaneous Tissue and Fascia, Open Approach (ICD-10-PCS; 2016-07-19)
PROC: 0JDL0ZZ Extraction of Right Upper Leg Subcutaneous Tissue and Fascia, Open Approach (ICD-10-PCS; 2016-07-19)
PROC: 5A1D60Z (ICD-10-PCS; 2016-07-19)
PROC: 30233N1 Transfusion of Nonautologous Red Blood Cells into Peripheral Vein, Percutaneous Approach (ICD-10-PCS; 2016-07-19)
PROC: 0JB80ZZ Excision of Abdomen Subcutaneous Tissue and Fascia, Open Approach (ICD-10-PCS; principal; 2016-07-19 13:11)
DX: T81.4XXA Infection following a procedure, initial encounter (principal); E43 Unspecified severe protein-calorie malnutrition; I13.2 Hypertensive heart and chronic kidney disease with heart failure and with stage 5 chronic kidney disease, or end stage renal disease; L89.154 Pressure ulcer of sacral region, stage 4; N18.6 End stage renal disease; L89.223 Pressure ulcer of left hip, stage 3; E11.22 Type 2 diabetes mellitus with diabetic chronic kidney disease; T81.31XA Disruption of external operation (surgical) wound, not elsewhere classified, initial encounter; Z68.43 Body mass index [BMI] 50.0-59.9, adult; R13.10 Dysphagia, unspecified; L89.213 Pressure ulcer of right hip, stage 3; L03.311 Cellulitis of abdominal wall; B96.5 Pseudomonas (aeruginosa) (mallei) (pseudomallei) as the cause of diseases classified elsewhere; B95.2 Enterococcus as the cause of diseases classified elsewhere; Z16.29 Resistance to other single specified antibiotic; Z16.21 Resistance to vancomycin; D63.1 Anemia in chronic kidney disease; E66.01 Morbid (severe) obesity due to excess calories; Z71.3 Dietary counseling and surveillance; I25.10 Atherosclerotic heart disease of native coronary artery without angina pectoris; G47.33 Obstructive sleep apnea (adult) (pediatric); E78.5 Hyperlipidemia, unspecified; E11.65 Type 2 diabetes mellitus with hyperglycemia; Z95.5 Presence of coronary angioplasty implant and graft; Z99.2 Dependence on renal dialysis; G89.4 Chronic pain syndrome; M54.5 Low back pain; I50.9 Heart failure, unspecified; E03.9 Hypothyroidism, unspecified; E88.09 Other disorders of plasma-protein metabolism, not elsewhere classified; F41.9 Anxiety disorder, unspecified; F32.9 Major depressive disorder, single episode, unspecified; M48.00 Spinal stenosis, site unspecified; R19.7 Diarrhea, unspecified; E11.649 Type 2 diabetes mellitus with hypoglycemia without coma; K59.00 Constipation, unspecified; Z91.15 Patient's noncompliance with renal dialysis; Z79.4 Long term (current) use of insulin; Z88.1 Allergy status to other antibiotic agents; Z88.5 Allergy status to narcotic agent; Z88.8 Allergy status to other drugs, medicaments and biological substances; Y83.8 Other surgical procedures as the cause of abnormal reaction of the patient, or of later complication, without mention of misadventure at the time of the procedure
CPT/HCPCS: 36430; 76937; 80048; 80053; 80069; 82550; 82948; 83735; 83970; 84100; 84155; 85025; 85027; 85610; 85652; 85730; 86140; 86403; 86850; 86900; 86901; 86920; 87040; 87070; 87077; 87184; 87186; 87205; 90935; 96365; 96366; 96374; 96375; J0695; J0743; J0878; J1170; J1580; J1644; J1756; J2185; J2250; J2370; J2405; J2543; J3010; J3480; J7030; J7050; P9016; P9047; Q4081

== ENCOUNTER 2016-08-27 23:38 | Inpatient (IN) | payer MEDICARE, MEDICAID ==
[~2016-08-27] VITALS: Ht 157.5 cm; Wt 129.3 kg
[~2016-08-27 23:38] MED LIST changes: -ALPR.25 PO; -ATOR1TAB18 PO; +BETA10SO TOPICAL; +CHOL1TAB41 PO; -COLL30T EXT; -DOXY100C PO; -LEVO-171 PO; +LEVO200T4 PO; +MEGE40SU PO; +MERO1INJ8 IV; +METH10003 PO; -NOVOLOGSS SQ; -[UNRECOGNIZED DRUG - CODE] TOP
[2016-08-27 23:44] VITALS: BP 124/49; PULSE 97; RESP 18; TEMP 98.7; O2SAT 100
[2016-08-28] VITALS (10 sets, daily range): BP systolic 84–140; BP diastolic 49–62; PULSE 68–98; RESP 17–19; TEMP 97.4–98.9; O2SAT 93–100
--- NOTE | 2016-08-28 00:54 | PD ---
HPI Chief Complaint: Abnormal Results Time Seen by Provider: 00:42 Travel History International Travel<30 days: No Contact w/Intl Traveler<30days: No Traveled to known affect area: No History of Present Illness HPI 55-year-old female with history of obesity, diabetes, end-stage renal disease on dialysis, status post surgery in [place] for poorly healing abdominal wounds, has chronic open wounds, presents to the ER today sent in from [facility] which she recently was transferred to or [facility]. She has a hemoglobin of 7 according to facility staff. She currently is complaining of ongoing chronic abdominal wound pains but denies any significant chest pains, shortness of breath, or other symptoms. Modifying Factors: None Associated Signs & Symptoms: Low hemoglobin Risk Factors: End-stage renal disease on dialysis PFSH Past Medical History Arthritis: Yes Asthma: No Autoimmune Disease: No Blood Disorders: No Anxiety: Yes Heart Rhythm Problems: No Cancer: No Cardiac Catheterization: Yes Cardiovascular Problems: Yes High Cholesterol: Yes Chemotherapy: No Chest Pain: Yes Congestive Heart Failure: Yes COPD: Yes Diabetes: Yes (on insulin) Patient Takes Glucophage: No Dialysis: Yes (,,S) Diminished Hearing: No Endocrine: Yes Genitourinary: Yes Hepatitis: No Hiatal Hernia: No Heparin Induced Thrombocytopen: No Hypertension: Yes Immune Disorder: No Implanted Vascular Access Dvce: Yes Medical other: Yes (LEFT LOWER ARM FISTULA) Musculoskeletal: Yes Neurologic: No Psychiatric: Yes Reproductive: No Respiratory: Yes Radiation Therapy: No Renal Failure: Yes Sickle Cell Disease: No Sleep Apnea: Yes Thyroid Disease: Yes Triglycerides - High: Yes Tetanus Vaccination: > 5 Years Influenza Vaccination: Yes ?: Not Menopausal: Yes : 1 Para: 1 Past Surgical History Abdominal Surgery: Yes (ABD WOUND sx for friction) AICD: No Arteriovenous Shunt: Yes (AV FISTULA LEFT , VAS CATH RIGHT CHEST) Body Medical Devices: LAB BAND; CARDIAC STENT X 1, DIALYSIS CATHETER RIGHT chest Cardiac Surgery: No Section: Yes (X 1) Cholecystectomy: Yes (1996) Coronary Stent: Yes (x1 June 2012) Ear Surgery: No Endocrine Surgery: No Eye Surgery: No Genitourinary Surgery: No Gynecologic Surgery: Yes (C SECTION 1992; D&C) Joint Replacement: No Neurologic Surgery: No Oral Surgery: Yes (T&A) Pacemaker: No Thoracic Surgery: No Tonsillectomy: Yes Other Surgery: Yes (LAP BAND, VAS CATH) Social History Alcohol Use: No Tobacco Use: No Substance Use: No Allergies-Medications (Allergen,Severity, Reaction): Coded Allergies: Biaxin (Verified Allergy, Severe, swelling of face, 05/10/16) Iron (Verified Adverse Reaction, Severe, Constipation, 05/10/16) Morphine (Verified Adverse Reaction, Severe, 06/11/16) renal insufficiency. *MDRO Multi-Drug Resistant Organism (Verified Adverse Reaction, Unknown, ) VRE (abdominal wound) - 07/09/16 MDR-Pseudomonas (abdominal wound) - 07/09/16 Reported Meds & Prescriptions Reported Meds & Active Scripts Active Meclizine (Meclizine HCl) 25 Mg Tab 25 Mg PO TID PRN Megestrol Liq (Megestrol Acetate) 40 Mg/Ml Susp 400 Mg PO DAILY Meropenem Inj 1 Gm/50 Ml Bag 1,000 Mg IV Q24H Renvela (Sevelamer Carbonate) 800 Mg Tab 1,600 Mg PO TID Senna Plus 8.6-50 mg (Sennosides-Docusate Sodium) 1 Tab Tab 1 Tab PO BID Dolophine (Methadone HCl) 10 Mg Tab 5 Mg PO Q8HR Hydrocodone-Acetaminophen 5-325 mg Tab 1 Tab PO Q4H PRN Sensipar (Cinacalcet) 30 Mg Tab 30 Mg PO DAILY Reported Zofran Odt (Ondansetron Odt) 4 Mg Tab 4 Mg SL Q6HR PRN Atorvastatin (Atorvastatin Calcium) 40 Mg Tab 40 Mg PO HS Diphenhydramine (Diphenhydramine HCl) 25 Mg Cap 25 Mg PO Q6H PRN Clonidine (Clonidine HCl) 0.1 Mg Tab 0.1 Mg PO Q6HR Xanax (Alprazolam) 0.25 Mg Tab 0.25 Mg PO Q6H PRN Oxycontin (Oxycodone HCl) 15 Mg Tab 15 Mg PO BID Oxycodone-Acetaminophen 5-325 mg Tab 2 Tab PO Q4H PRN Novolin R Relion (Insulin Regular (Human)) 100 Unit/Ml Inj [Insulin Aspart] 5 Unit IM WITH MEALS PRN Vitamin D3 (Cholecalciferol) 10,000 Unit Tab 10,000 Units PO BID Levemir Inj (Insulin Detemir) 1,000 unit/ 10 ML Vial 5 Units SQ HS Hold for BS less than 100mg/dl Levemir Inj (Insulin Detemir) 1,000 unit/ 10 ML Vial 10 Units SQ DAILY Do not mix with any other Insulin. Prozac (Fluoxetine HCl) 10 Mg Cap 10 Mg PO DAILY Levothyroxine (Levothyroxine Sodium) 200 Mcg Tab 400 Mcg PO DAILY Betadine Topical (Povidone-Iodine Topical) 10% Soln 1 Applic TOPICAL DAILY Apply to rt hip wound after nss wash then cover w/dsd daily Betadine Topical (Povidone-Iodine Topical) 10% Soln 1 Applic TOPICAL Q8HR Apply to abdominal wound every shift-apply betadine soaked ABD pad and secure w/tape B-12 (Methylcobalamin) 1,000 Mcg Sub 1,000 Mcg PO DAILY Gabapentin 100 Mg Cap 100 Mg PO BID Aspirin 81 (Aspirin) 81 Mg Tabdr 81 Mg PO DAILY Calcitriol 0.5 Mcg Cap 0.5 Mcg PO DAILY Review of Systems Except as stated in HPI: all other systems reviewed are Neg Physical Exam Narrative GENERAL: Well-developed middle age obese white female patient who is in moderate distress. Awake and oriented 3. SKIN: Focused skin assessment warm/dry. HEAD: Atraumatic. Normocephalic. EYES: Pupils equal and round. No scleral icterus. No injection or drainage. ENT: No nasal bleeding or discharge. Mucous membranes pink and moist. NECK: Trachea midline. No JVD. CARDIOVASCULAR: Regular rate and rhythm. No murmur appreciated. RESPIRATORY: No accessory muscle use. Clear to auscultation. Breath sounds equal bilaterally. GASTROINTESTINAL: Abdomen soft, obese, with notable lower abdominal chronic wounds which are fairly tender to palpation and left hip area wound, nondistended. Hepatic and splenic margins not palpable. MUSCULOSKELETAL: No obvious deformities. No clubbing. No cyanosis. No edema. NEUROLOGICAL: Awake and alert. No obvious cranial nerve deficits. Motor grossly within normal limits. Normal speech. PSYCHIATRIC: Appropriate mood and affect; insight and judgment normal. Data Data Last Documented VS Vital Signs Date Time Temp Pulse Resp B/P Pulse Ox O2 Delivery O2 Flow Rate FiO2 08/27/16 23:44 98.7 97 18 124/49 100 Orders Complete Blood Count With Diff (08/27/16 23:55) Comprehensive Metabolic Panel (08/27/16 23:55) Prothrombin Time / Inr (Pt) (08/27/16 23:55) Act Partial Throm Time (Ptt) (08/27/16 23:55) Type And Screen (08/27/16 23:55) Hydromorphone Pf Inj (Dilaudid Pf Inj) (08/28/16 01:00) Ondansetron Inj (Zofran Inj) (08/28/16 01:00) Blood Product Administration .UPON TRANSFUSION (08/28/16 01:33) Sodium Chlor 0.9% 250 Ml Inj (Ns 250 Ml (08/28/16 01:45) Lactic Acid Sepsis Protocol (08/28/16 01:42) Blood Culture (08/28/16 01:42) 1000 Mg Vancomycin Premix (08/28/16 01:42) Red Blood Cells (Rbc) (08/28/16 00:22) Labs Laboratory Tests Test 08/28/16 00:22 White Blood Count 13.9 TH/MM3 Red Blood Count 2.48 MIL/MM3 Hemoglobin 6.9 GM/DL Hematocrit 21.5 % Mean Corpuscular Volume 86.5 FL Mean Corpuscular Hemoglobin 27.9 PG Mean Corpuscular Hemoglobin 32.3 % Concent Red Cell Distribution Width 16.8 % Platelet Count 535 TH/MM3 Mean Platelet Volume 6.8 FL Neutrophils (%) (Auto) 76.7 % Lymphocytes (%) (Auto) 12.8 % Monocytes (%) (Auto) 6.6 % Eosinophils (%) (Auto) 3.3 % Basophils (%) (Auto) 0.6 % Neutrophils # (Auto) 10.6 TH/MM3 Lymphocytes # (Auto) 1.8 TH/MM3 Monocytes # (Auto) 0.9 TH/MM3 Eosinophils # (Auto) 0.5 TH/MM3 Basophils # (Auto) 0.1 TH/MM3 CBC Comment DIFF FINAL Differential Comment Prothrombin Time 11.8 SEC Prothromb Time International 1.1 RATIO Ratio Activated Partial 36.4 SEC Thromboplast Time Sodium Level 134 MEQ/L Potassium Level 4.9 MEQ/L Chloride Level 95 MEQ/L Carbon Dioxide Level 25.7 MEQ/L Anion Gap 13 MEQ/L Blood Urea Nitrogen 61 MG/DL Creatinine 5.17 MG/DL Estimat Glomerular Filtration 9 ML/MIN Rate Random Glucose 195 MG/DL Calcium Level 9.4 MG/DL Total Bilirubin 0.2 MG/DL Aspartate Amino Transf 26 U/L (AST/SGOT) Alanine Aminotransferase 26 U/L (ALT/SGPT) Alkaline Phosphatase 109 U/L Total Protein 7.6 GM/DL Albumin 1.7 GM/DL Blood Type O POSITIVE MDM Medical Decision Making Medical Screen Exam Complete: Yes Emergency Medical Condition: Yes Medical Record Reviewed: Yes Interpretation(s) Laboratory Tests Test 08/28/16 00:22 White Blood Count 13.9 TH/MM3 (4.0-11.0) Red Blood Count 2.48 MIL/MM3 (4.00-5.30) Hemoglobin 6.9 GM/DL (11.6-15.3) Hematocrit 21.5 % (35.0-46.0) Platelet Count 535 TH/MM3 (150-450) Mean Platelet Volume 6.8 FL (7.0-11.0) Neutrophils (%) (Auto) 76.7 % (16.0-70.0) Neutrophils # (Auto) 10.6 TH/MM3 (1.8-7.7) Eosinophils # (Auto) 0.5 TH/MM3 (0-0.4) Prothrombin Time 11.8 SEC (9.8-11.6) Activated Partial 36.4 SEC Thromboplast Time (24.3-30.1) Sodium Level 134 MEQ/L (136-145) Chloride Level 95 MEQ/L (98-107) Blood Urea Nitrogen 61 MG/DL (7-18) Creatinine 5.17 MG/DL (0.50-1.00) Estimat Glomerular Filtration 9 ML/MIN (>89) Rate Random Glucose 195 MG/DL (74-106) Albumin 1.7 GM/DL (3.4-5.0) Differential Diagnosis Severe anemia/chronic abdominal wounds Narrative Course Lab work shows significant anemia and PRBCs were ordered for the patient. She has end-stage chronic renal failure and did not get her dialysis today. She is getting blood and will need dialysis afterward as well. In addition, she has significant leukocytosis and considering her chronic wound issues, IV antibiotics were initiated as a precaution for wound infection. At this point, case was discussed with for admission for further treatment. Diagnosis Primary Impression: Symptomatic anemia Additional Impressions: End stage renal disease on dialysis Open wound of abdomen Admitting Information Admitting Physician Requests: Admit Zion Campos MD Aug 28, 2016 00:54
[2016-08-28] MEDS ORDERED: HYDROmorphone HCL PF 1 MG/ML VIAL IV PUSH ONE (01:00)
[2016-08-28] MEDS ORDERED: ONDANSETRON HCL 4 MG/2 ML VIAL IV PUSH ONE (01:00)
[2016-08-28] MEDS ORDERED: INSUINJ3 (01:22)
[2016-08-28] MEDS ORDERED: Insulin Aspart IM (01:22)
[2016-08-28] MEDS ORDERED: ALPR.25 PO (01:22)
[2016-08-28] MEDS ORDERED: DIPH25CA PO (01:22)
[2016-08-28] MEDS ORDERED: ZOFR4TAB3 SL (01:22)
[2016-08-28] MEDS ORDERED: OXYC15TA55 PO (01:22)
[2016-08-28] MEDS ORDERED: OXYC1TAB63 PO (01:22)
[2016-08-28] MEDS ORDERED: CLON0.1T PO (01:22)
[2016-08-28] MEDS ORDERED: ATOR40TA16 PO (01:22)
[2016-08-28 01:27] LABS: ALT (GPT) 26 U/L (10-53); ANION GAP 13 MEQ/L (5-15); APTT (PATIENT) 36.4 SEC (24.3-30.1); AST (GOT) 26 U/L (15-37); AUTOMATED NEUTROPHIL # 10.6 TH/MM3 (1.8-7.7); BASOPHIL # 0.1 TH/MM3 (0-0.2); BASOPHIL % 0.6 % (0.0-2.0); BICARBONATE 25.7 MEQ/L (21.0-32.0); BLOOD UREA NITROGEN 61 MG/DL (7-18); CHLORIDE 95 MEQ/L (98-107); EOSINOPHIL # 0.5 TH/MM3 (0-0.4); EOSINOPHIL % 3.3 % (0.0-4.0); GLOMERULAR FILTRATION RATE 9 ML/MIN (>89); HEMATOCRIT 21.5 % (35.0-46.0); INTERNATIONAL NORMALIZED RATIO 1.1 RATIO; LYMPH % 12.8 % (9.0-44.0); LYMPHOCYTE # 1.8 TH/MM3 (1.0-4.8); MEAN CELL VOLUME 86.5 FL (80.0-100.0); MEAN CORPUSCULAR HEMOGLOBIN 27.9 PG (27.0-34.0); MEAN CORPUSCULAR HGB CONC 32.3 % (32.0-36.0); MONO % 6.6 % (0.0-8.0); NEUT % 76.7 % (16.0-70.0); PLATELET COUNT 535 TH/MM3 (150-450); POTASSIUM 4.9 MEQ/L (3.5-5.1); PROTHROMBIN TIME - PATIENT 11.8 SEC (9.8-11.6); RED BLOOD COUNT 2.48 MIL/MM3 (4.00-5.30); RED CELL DISTRIBUTION WIDTH 16.8 % (11.6-17.2); SODIUM (NA) 134 MEQ/L (136-145); WHITE BLOOD COUNT 13.9 TH/MM3 (4.0-11.0)
[2016-08-28 01:29] LABS: ALKALINE PHOSPHATASE 109 U/L (45-117); HEMO FLAGS DIFF FINAL; TOTAL BILIRUBIN ADULT 0.2 MG/DL (0.2-1.0)
[2016-08-28] MEDS ORDERED: VANCOMYCIN INJ 1,000 MG in SODIUM CHLOR 0.9% 250 ML INJ 250 ML IV STA (01:42)
[2016-08-28] MEDS ORDERED: SODIUM CHLOR 0.9% 250 ML INJ 250 ML IV ONE (01:45)
[2016-08-28] MEDS ORDERED: ONDANSETRON ODT 4 MG TAB SL PRN (02:00)
[2016-08-28] MEDS ORDERED: ALPRAZolam 0.25 MG TAB PO PRN (02:00)
[2016-08-28] MEDS ORDERED: MECLIZINE HCL 25 MG TAB PO PRN (02:00)
[2016-08-28] MEDS ORDERED: diphenhydrAMINE HCL 25 MG CAP PO PRN ×2 (02:00→11:30)
[2016-08-28] MEDS ORDERED: ACETAMINOPHEN 325 MG TAB PO PRN ×2 (02:15→11:30)
[2016-08-28] MEDS ORDERED: ONDANSETRON HCL 4 MG/2 ML VIAL IVP PRN (02:15)
[2016-08-28] MEDS ORDERED: NALOXONE HCL 0.4 MG/ML AMP IV PRN (02:15)
[2016-08-28] MEDS ORDERED: SODIUM CHLORIDE 0.9% FLUSH 10 ML FLUSH IV FLUSH PRN ×2 (02:15→11:30)
[2016-08-28] MEDS ORDERED: LACTULOSE SYRUP 20 GM/30 ML CUP PO PRN (02:15)
[2016-08-28] MEDS ORDERED: SENNOSIDES 8.6 MG TAB PO PRN (02:15)
[2016-08-28] MEDS ORDERED: BISACODYL 10 MG SUPP RECTAL PRN (02:15)
[2016-08-28] MEDS ORDERED: MAGNESIUM HYDROXIDE SUSP 30 ML CUP PO PRN (02:15)
[2016-08-28] MEDS ORDERED: PILL SPLITTER OTHER PRN (02:45)
[2016-08-28] MEDS: ACETAMINOPHEN/HYDROcodone 325 MG/5 MG TAB PO PRN ×2 (04:25→08:50)
[2016-08-28] MEDS: LEVOTHYROXINE SODIUM 200 MCG TAB PO SCH (05:37)
[2016-08-28] MEDS: cloNIDine HCL 0.1 MG TAB PO SCH ×4 (05:38→21:22)
[2016-08-28] MEDS: ENOXAPARIN SODIUM 30 MG/0.3 ML SYRINGE SQ SCH (05:39)
[2016-08-28] MEDS: POVIDONE IODINE 10% SOLN 118 ML BOTTLE TOPICAL SCH ×3 (06:00→21:22)
[2016-08-28] MEDS ORDERED: METHADONE HCL 10 MG TAB PO SCH (06:00)
--- NOTE | 2016-08-28 08:40 | HHI.HP ---
History of Present Illness Service Family practice Primary Care Physician Lucas Freitas, DO Admission Diagnosis severe anemia/chronic renal failure/leukocytosis/chronic abdominal wounds Diagnoses: (1) End stage kidney disease (2) Symptomatic anemia (3) Wounds, multiple History of Present Illness Patient is a 55-year-old female who was sent to ER from [facility] for Anemia with a HGB of 7. Patient with history of obesity, diabetes, end-stage renal disease on dialysis, status post surgery in [place] for poorly healing abdominal wounds, and has chronic open wounds. She currently is complaining of ongoing chronic abdominal wound pains but denies any significant chest pains, shortness of breath, or other symptoms. She is found to have a elevated WBC and received Vancomycin in the ER. Wound care, nephrology, and ID have been consulted. During exam patient is falling asleep during exam Review of Systems Constitutional: COMPLAINS OF: Fatigue Respiratory: DENIES: Cough, Snoring, Wheezing, Sputum production, Shortness of breath Cardiovascular: DENIES: Chest pain, Palpitations Gastrointestinal: COMPLAINS OF: Abdominal pain, DENIES: Nausea Musculoskeletal: COMPLAINS OF: Back pain Neurologic: DENIES: Headache, Seizures Psychiatric: DENIES: Anxiety, Confusion Past Family Social History Allergies: Coded Allergies: Biaxin (Verified Allergy, Severe, swelling of face, 05/10/16) Iron (Verified Adverse Reaction, Severe, Constipation, 05/10/16) Morphine (Verified Adverse Reaction, Severe, 06/11/16) renal insufficiency. *MDRO Multi-Drug Resistant Organism (Verified Adverse Reaction, Unknown, ) VRE (abdominal wound) - 07/09/16 MDR-Pseudomonas (abdominal wound) - 07/09/16 Past Medical History Arthritis Anxiety HLD CHF Diabetes HTN ESRD Hypothyroidism Past Surgical History Abdominal surgery AV fistula Cholecystectomy Lap band tonsillectomy Active Ordered Medications Current Medications Medications (Trade) Dose Ordered Sig/Soren Route Start Time Stop Time Status Last Admin (NS 250 ml Inj) 250 ml @ 15 mls/hr ONCE ONCE IV 08/28/16 01:45 08/28/16 18:24 08/28/16 03:01 (Xanax) 0.25 mg Q6H PRN PO 08/28/16 02:00 (Ecotrin Ec) 81 mg DAILY PO 08/28/16 09:00 08/28/16 08:49 (Lipitor) 40 mg HS PO 08/28/16 21:00 (Rocaltrol) 0.5 mcg DAILY PO 08/28/16 09:00 08/28/16 08:49 (Vitamin D3) 10,000 units BID PO 08/28/16 09:00 08/28/16 09:00 (Sensipar) 30 mg DAILY PO 08/28/16 09:00 08/28/16 09:00 (Catapres) 0.1 mg Q6HR PO 08/28/16 06:00 (Benadryl) 25 mg Q6H PRN PO 08/28/16 02:00 (PROzac) 10 mg DAILY PO 08/28/16 09:00 08/28/16 09:00 (Neurontin) 100 mg BID PO 08/28/16 09:00 08/28/16 08:49 (Chester 5-325 Mg) 1 tab Q4H PRN PO 08/28/16 02:00 08/28/16 08:50 (Levemir Inj) 5 units HS SQ 08/28/16 21:00 (Levemir Inj) 10 units DAILY SQ 08/28/16 09:00 08/28/16 08:56 (Synthroid) 400 mcg DAILY@06 PO 08/28/16 06:00 08/28/16 05:37 (Antivert) 25 mg TID PRN PO 08/28/16 02:00 (Megace Liq) 400 mg DAILY PO 08/28/16 09:00 (Dolophine) 5 mg Q8HR PO 08/28/16 06:00 08/28/16 05:36 (Zofran Odt) 4 mg Q6HR PRN SL 08/28/16 02:00 (Betadine 10% Top Soln) 1 applic Q8HR TOPICAL 08/28/16 06:00 (Luciana-Colace) 1 tab BID PO 08/28/16 09:00 08/28/16 08:49 (Renvela) 1,600 mg TIDAC PO 08/28/16 08:00 08/28/16 09:00 (Vitamin B12) 1,000 mcg DAILY PO 08/28/16 09:00 08/28/16 08:49 (NovoLOG INJ) 5 units TIDAC SQ 08/28/16 08:00 08/28/16 09:00 (NS Flush) 2 ml UNSCH PRN IV FLUSH 08/28/16 02:15 (NS Flush) 2 ml BID IV FLUSH 08/28/16 09:00 (Tylenol) 650 mg Q4H PRN PO 08/28/16 02:15 (Zofran Inj) 4 mg Q6H PRN IVP 08/28/16 02:15 (Lovenox Inj) 30 mg Q24H SQ 08/28/16 06:00 08/28/16 05:39 (Narcan Inj) 0.4 mg UNSCH PRN IV 08/28/16 02:15 (Milk Of Magnesia Liq) 30 ml Q12H PRN PO 08/28/16 02:15 (Senokot) 17.2 mg Q12H PRN PO 08/28/16 02:15 (Dulcolax Supp) 10 mg DAILY PRN RECTAL 08/28/16 02:15 (Lactulose Liq) 30 ml DAILY PRN PO 08/28/16 02:15 (Pill Splitter) 1 ea UNSCH PRN OTHER 08/28/16 02:45 Social History Quit smoking 5 years ago Physical Exam Vital Signs Vital Signs Date Time Temp Pulse Resp B/P Pulse Ox O2 Delivery O2 Flow Rate FiO2 08/28/16 04:18 98.7 95 17 118/58 100 08/28/16 03:31 96 86/53 100 Room Air 08/28/16 03:10 98.9 92 18 84/49 98 Room Air 08/28/16 02:27 16 100 Room Air 08/27/16 23:44 98.7 97 18 124/49 100 Physical Exam GENERAL: Well-developed middle age obese white female patient who is in moderate distress. Awake and oriented 3. SKIN: Focused skin assessment warm/dry. ENT: Mucous membranes pink and moist. CARDIOVASCULAR: Regular rate and rhythm. No murmur appreciated. RESPIRATORY: No accessory muscle use. Clear to auscultation. Breath sounds equal bilaterally. GASTROINTESTINAL: Abdomen soft, obese, with notable lower abdominal chronic wounds which are fairly tender to palpation and left hip area wound, nondistended. Hepatic and splenic margins not palpable. MUSCULOSKELETAL: No obvious deformities. No clubbing. No cyanosis. No edema. NEUROLOGICAL: Awake and alert. No obvious cranial nerve deficits. Motor grossly within normal limits. Normal speech. PSYCHIATRIC: Appropriate mood and affect; insight and judgment normal. Laboratory Laboratory Tests Test 08/28/16 08/28/16 00:22 01:58 White Blood Count 13.9 Red Blood Count 2.48 Hemoglobin 6.9 Hematocrit 21.5 Mean Corpuscular Volume 86.5 Mean Corpuscular Hemoglobin 27.9 Mean Corpuscular Hemoglobin 32.3 Concent Red Cell Distribution Width 16.8 Platelet Count 535 Mean Platelet Volume 6.8 Neutrophils (%) (Auto) 76.7 Lymphocytes (%) (Auto) 12.8 Monocytes (%) (Auto) 6.6 Eosinophils (%) (Auto) 3.3 Basophils (%) (Auto) 0.6 Neutrophils # (Auto) 10.6 Lymphocytes # (Auto) 1.8 Monocytes # (Auto) 0.9 Eosinophils # (Auto) 0.5 Basophils # (Auto) 0.1 CBC Comment DIFF FINAL Differential Comment Prothrombin Time 11.8 Prothromb Time International 1.1 Ratio Activated Partial 36.4 Thromboplast Time Sodium Level 134 Potassium Level 4.9 Chloride Level 95 Carbon Dioxide Level 25.7 Anion Gap 13 Blood Urea Nitrogen 61 Creatinine 5.17 Estimat Glomerular Filtration 9 Rate Random Glucose 195 Calcium Level 9.4 Total Bilirubin 0.2 Aspartate Amino Transf 26 (AST/SGOT) Alanine Aminotransferase 26 (ALT/SGPT) Alkaline Phosphatase 109 Total Protein 7.6 Albumin 1.7 Blood Type O POSITIVE Antibody Screen NEGATIVE Crossmatch Leukocyte-Reduced Red Blood Cells Blood Bank Comment Lactic Acid Level 1.5 Date/Time Procedure Status Source Growth 08/28/16 01:54 Aerobic Blood Culture Received Blood Peripheral Pending 08/28/16 01:54 Anaerobic Blood Culture Received Blood Peripheral Pending Result Diagram: 08/28/16 0022 08/28/16 0022 Imaging Current Medications Medications (Trade) Dose Ordered Sig/Soren Route Start Time Stop Time Status Last Admin (NS 250 ml Inj) 250 ml @ 15 mls/hr ONCE ONCE IV 08/28/16 01:45 08/28/16 18:24 08/28/16 03:01 (Xanax) 0.25 mg Q6H PRN PO 08/28/16 02:00 (Ecotrin Ec) 81 mg DAILY PO 08/28/16 09:00 08/28/16 08:49 (Lipitor) 40 mg HS PO 08/28/16 21:00 (Rocaltrol) 0.5 mcg DAILY PO 08/28/16 09:00 08/28/16 08:49 (Vitamin D3) 10,000 units BID PO 08/28/16 09:00 08/28/16 09:00 (Sensipar) 30 mg DAILY PO 08/28/16 09:00 08/28/16 09:00 (Catapres) 0.1 mg Q6HR PO 08/28/16 06:00 (Benadryl) 25 mg Q6H PRN PO 08/28/16 02:00 (PROzac) 10 mg DAILY PO 08/28/16 09:00 08/28/16 09:00 (Neurontin) 100 mg BID PO 08/28/16 09:00 08/28/16 08:49 (Chester 5-325 Mg) 1 tab Q4H PRN PO 08/28/16 02:00 08/28/16 08:50 (Levemir Inj) 5 units HS SQ 08/28/16 21:00 (Levemir Inj) 10 units DAILY SQ 08/28/16 09:00 08/28/16 08:56 (Synthroid) 400 mcg DAILY@06 PO 08/28/16 06:00 08/28/16 05:37 (Antivert) 25 mg TID PRN PO 08/28/16 02:00 (Megace Liq) 400 mg DAILY PO 08/28/16 09:00 (Dolophine) 5 mg Q8HR PO 08/28/16 06:00 08/28/16 05:36 (Zofran Odt) 4 mg Q6HR PRN SL 08/28/16 02:00 (Betadine 10% Top Soln) 1 applic Q8HR TOPICAL 08/28/16 06:00 (Luciana-Colace) 1 tab BID PO 08/28/16 09:00 08/28/16 08:49 (Renvela) 1,600 mg TIDAC PO 08/28/16 08:00 08/28/16 09:00 (Vitamin B12) 1,000 mcg DAILY PO 08/28/16 09:00 08/28/16 08:49 (NovoLOG INJ) 5 units TIDAC SQ 08/28/16 08:00 08/28/16 09:00 (NS Flush) 2 ml UNSCH PRN IV FLUSH 08/28/16 02:15 (NS Flush) 2 ml BID IV FLUSH 08/28/16 09:00 (Tylenol) 650 mg Q4H PRN PO 08/28/16 02:15 (Zofran Inj) 4 mg Q6H PRN IVP 08/28/16 02:15 (Lovenox Inj) 30 mg Q24H SQ 08/28/16 06:00 08/28/16 05:39 (Narcan Inj) 0.4 mg UNSCH PRN IV 08/28/16 02:15 (Milk Of Magnesia Liq) 30 ml Q12H PRN PO 08/28/16 02:15 (Senokot) 17.2 mg Q12H PRN PO 08/28/16 02:15 (Dulcolax Supp) 10 mg DAILY PRN RECTAL 08/28/16 02:15 (Lactulose Liq) 30 ml DAILY PRN PO 08/28/16 02:15 (Pill Splitter) 1 ea UNSCH PRN OTHER 08/28/16 02:45 Assessment and Plan Problem List: (1) Anemia in chronic kidney disease Status: Acute Plan: Patient transfused 2 units of PRBC recheck at today. (2) End stage kidney disease Status: Chronic Plan: Patient was scheduled for dialysis yesterday which she did not get yesterday secondary to pain. Nephrology consulted. She is followed by Dr. Jimenez (3) Type II diabetes mellitus with neurological manifestations, uncontrolled Status: Chronic Plan: BS ordered AC and HS continue current regimen will monitor (4) Hypertension, benign Status: Chronic Plan: Blood pressure 121/51 will monitor (5) Open wound of abdomen Status: Acute Plan: Wound care consulted. Patient complaining of increased discomfort. Dr. Freitas notified . Wound care and ID consulted. Dose of vancomycin given in ED (6) Chronic back pain Status: Acute Plan: Continue current regimen will monitor (7) Depression Status: Chronic Plan: Continue treatment and monitoring. Assessment and Plan Assessment and plan discussed with Dr. Freitas Discussed Condition With Nursing Discharge Planning [facility] Physician Attestation I and the STORAGE AND BACKUP ADMINISTRATOR have both examined this patient and reviewed this note and I agree with these findings and plan of care. Betty Hood Aug 28, 2016 08:40
[2016-08-28] MEDS: DOCUSATE SODIUM 50 MG/SENNA 8.6 MG TAB PO SCH ×2 (08:49→21:21)
[2016-08-28] MEDS: CALCITRIOL 0.25 MCG CAP PO SCH (08:49)
[2016-08-28] MEDS: GABAPENTIN 100 MG CAP PO SCH ×2 (08:49→21:21)
[2016-08-28] MEDS: CYANOCOBALAMIN 1,000 MCG TAB PO SCH (08:49)
[2016-08-28] MEDS: ASPIRIN EC 81 MG TABEC PO SCH (08:49)
[2016-08-28] MEDS: INSULIN DETEMIR 100 UNITS/ML VIAL SQ SCH ×2 (08:56→21:00)
[2016-08-28] MEDS: MEGESTROL ACETATE SUSP 400 MG/10 ML CUP PO SCH (08:56)
[2016-08-28] MEDS: CHOLECALCIFEROL (VIT D3) 5000 UNIT CAP PO SCH ×2 (09:00→21:22)
[2016-08-28] MEDS ORDERED: POVIDONE IODINE 10% SOLN 118 ML BOTTLE TOPICAL SCH (09:00)
[2016-08-28] MEDS: FLUoxetine HCL 10 MG CAP PO SCH (09:00)
[2016-08-28] MEDS: INSULIN ASPART 1,000 UNITS/10 ML VIAL SQ SCH ×3 (09:00→17:52)
[2016-08-28] MEDS: CINACALCET HYDROCHLORIDE 30 MG TAB PO SCH (09:00)
[2016-08-28] MEDS ORDERED: DOCUSATE SODIUM 50 MG/SENNA 8.6 MG TAB PO SCH (09:00)
[2016-08-28] MEDS: SEVELAMER CARBONATE 800 MG TAB PO SCH ×3 (09:00→17:49)
[2016-08-28] MEDS: SODIUM CHLORIDE 0.9% FLUSH 10 ML FLUSH IV FLUSH SCH ×2 (09:00→21:23)
[2016-08-28] MEDS ORDERED: GLUCAGON 1 MG/ML VIAL OTHER PRN (09:45)
[2016-08-28] MEDS ORDERED: DEXTROSE 50% IN WATER 50 ML VIAL(D50) IV PRN (09:45)
[2016-08-28] MEDS ORDERED: SODIUM CHLOR 0.9% 1000 ML INJ 1,000 ML IV PRN ×3 (11:17)
[2016-08-28] MEDS ORDERED: cloNIDine HCL 0.1 MG TAB PO PRN (11:30)
[2016-08-28] MEDS ORDERED: ONDANSETRON HCL 4 MG/2 ML VIAL IV PRN (11:30)
[2016-08-28] MEDS ORDERED: GELATIN 12 MM/7 MM FOAM TOP PRN (11:30)
[2016-08-28] MEDS ORDERED: ALBUMIN HUMAN 25% 25 GM/100 ML BAGP IV PRN (11:30)
[2016-08-28] MEDS ORDERED: MANNITOL 12.5 GM/50 ML VIAL IV PRN (11:30)
[2016-08-28] MEDS ORDERED: NITROGLYCERIN 0.4 MG SL 25 TABS/BTL SL PRN (11:30)
[2016-08-28] MEDS ORDERED: HEPARIN SODIUM - IV 10,000 UNITS/10 ML VIAL IVF PRN (11:30)
--- NOTE | 2016-08-28 11:56 | MB ---
cc: ANJUM MIKE MD DATE OF CONSULTATION: 08/28/2016 REASON FOR CONSULTATION End-stage renal disease on hemodialysis, for management. HISTORY OF PRESENT ILLNESS This is a 55-year-old female with past medical history of hypertension, diabetes mellitus, morbid obesity, history of abdominal wounds, congestive heart failure, anxiety, arthritis, hypothyroidism, end-stage renal disease on hemodialysis, chronic anemia, who was transferred to the hospital because of severe anemia and leukocytosis. I was called to see the patient because of management of hemodialysis. She has been on hemodialysis Friday, Friday and Friday now and she had her last dialysis Friday. The patient was transferred from this hospital on August 01 to [place] and she was there until yesterday when she moved here to the nursing facility in this area, and when she moved here they found that her hemoglobin was down, she was transferred here. The patient has abdominal wound which were not healing well but it seems like she has nice wound healing on the left side and then the lower part of her abdomen anteriorly, the one on the right lower part of her abdomen is still open and there is some discharge that has been going on. She denies any nausea or vomiting. There is no history of diarrhea. No history of melena. She denies any shortness of breath. She missed her dialysis yesterday because she was transferred here and she is refusing her dialysis now because she is getting the blood transfusion and she wanted to go for dialysis tomorrow to put her back on her regular days. PAST MEDICAL HISTORY 1. Hypertension. 2. Diabetes mellitus. 3. Morbid obesity. 4. Recurrent abdominal wound. 5. Congestive heart failure. 6. End-stage renal disease on hemodialysis. 7. Chronic anemia. 8. Hypothyroidism. PAST SURGICAL HISTORY 1. Multiple abdominal surgery with wound debridement. 2. AV fistula surgery. 3. Cholecystectomy. 4. Lap band. 5. Tonsillectomy. REVIEW OF SYSTEMS Denies any history of fever. No sore throat. No headache, dizziness or blurring of vision. No chest pain. No palpitation. No nausea or vomiting. She has some abdominal pain which is chronic and mainly on the right lower abdomen. She is able to stand up but she is still not able to put more weight on the left leg. SOCIAL HISTORY The patient is single. She lives with her son. There is no history of smoking or alcoholism. FAMILY HISTORY Family history is noncontributory. ALLERGIES MORPHINE, IODINE CAUSING CONSTIPATION AND BIAXIN. MEDICATIONS Currently she is on the following medications: 1. Vitamin D3; 10,000 units b.i.d. 2. Neurontin 100 mg p.o. b.i.d. 3. Luciana-Colace one tablet b.i.d. 4. Aspirin 81 mg once a day. 5. Calcitriol 0.5 mcg daily. 6. Cinacalcet 30 mg once a day. 7. Prozac 10 mg daily. 8. Levemir 10 units subcu daily. 9. Megace 400 mg daily. 10. Vitamin B12; 1000 mcg once a day. 11. Synthroid 400 mcg daily. 12. Lipitor 40 mg daily. 13. Levemir 5 units q.h.s. 14. Lovenox injection subcu. 15. Clonidine 0.1 mg q. 6-hour. 16. Renvela 1.6 grams t.i.d. 17. Xanax p.r.n. 18. NovoLog 5 units t.i.d. 19. Zofran p.r.n. 20. Narcan p.r.n. PHYSICAL EXAMINATION GENERAL: The patient is awake, alert. She is not in acute distress. VITAL SIGNS: Her last blood pressure is 121/51, she had lower blood pressure when she came in here it was 86/53, temperature 97.9, oxygen saturation on room air is 97-100%. HEENT: Pupils equally reacting to light. Nonicteric sclerae, conjunctiva pale. NECK: Supple. JVD is not elevated. LUNGS: The patient has bilateral decreased air entry with occasional wheezing. HEART: S1, S2, regular rhythm. ABDOMEN: Distended, obese. There is open wound in the right lower abdomen with some discharge. EXTREMITIES: She has bilateral lymphedema with discoloration of the lower part of the legs. INVESTIGATION WBC count is 13.9, hemoglobin 6.9, platelet count 535, neutrophils 76.5, INR is 1.1, sodium 134, potassium 4.9, chloride 95, bicarb 25.7, BUN 61, creatinine 5.1, glucose 195, lactic acid is 1.5, AST, ALT normal, total protein 7.6, albumin of 1.7. Blood culture is pending. IMAGING STUDIES The patient has no recent imaging study done. ASSESSMENT/PLAN 1. Severe anemia. 2. Recurrent abdominal wound. 3. End-stage renal disease on hemodialysis. 4. Diabetes mellitus. 5. Hypertension. 6. Morbid obesity. The patient had last hemodialysis done on Friday and she is now on Friday, , Friday and she missed her dialysis. She is here Friday, , Friday and she missed her dialysis yesterday. She is refusing to go for dialysis today as she is saying that she is very tired and wants to go tomorrow on her regular day. I looked at her labs, the labs are stable. She is not in fluid overload status. I will get the dialysis going for tomorrow and give her Epogen with dialysis. She is getting the blood transfusion right now. She has leukocytosis, probably will need some antibiotic for her wound infection. Thank you for the consultation and I will follow the patient while she is in the hospital. MD NILSON Faulkner/SEBASTIAN /11:18 AM /11:29 AM
--- NOTE | 2016-08-28 12:53 | PD.WCN.NOT ---
Wound Consult Description: Patient seen on for evaluation of Abdominal wounds. Patient is know to wound care on previous admission and was followed for pressure injuries to R hip , L hip and Sacrum. Was followed by plastics Doctor Mira. Patient noted laying in standard hospital bed upon entering patient's room. Removed ABD pad, and gauze pad dressing in place to L lateral abdomen to reveal Open wound measuring 2.2cm x 17cm x 3.1cm Wound bed presents with ~60% clean red non granulation tissue, ~10% visible facia, ~10% adipose tissue and 20% yellow loosely adherent slough.Drainage from wound is scant and sero-sanguinous. Periwound is noted with scar tissue, but is other yao unremarkable. Cleansed wound with normal saline loosely packed wound with 2 saline moistened 4x4 gauze pads. Secured dressing with ABD and medifix tape Removed 4x4 gauze, Xeroform and ABD pad dressing in place to R medial abdomen to reveal open wound. Wound noted minimal sero-sanguinous drainage and foul odor. Wound bed presents with ~60% clean red non granulation tissue, and 40% loosely adherent slough. Wound measurements are as follows 4cm x 17.9cm x 1.3cm. Periwound presents with erythema and induration circumferentially ~ 2cm out from wound bed .Obtained wound culture. Cleansed wound with normal saline and loosely packed wound with 2 saline moistened 4x4 gauze pads. Secured dressing with ABD and medifix tape. Removed 4x4 gauze pads, and ABD pad dressing in place to R lateral abdomen to reveal open wound that presents with ~70% red clean non granulation tissue, ~ 10% loosely adherent yellow slough, ~10% facia, and ~10% adipose tissue.Wound has scant sero-sanguinous drainage without odor.Wound measures 1cm x 13cm x 2.2 cm Periwound is noted with scar tissue but is otherwise unremarkable. Cleansed wound with normal saline and loosely packed wound with 2 saline moistened 4x4 gauze pads. Secured dressing with ABD and medifix tape Closed surgical scar noted to L medial Abdomen. Communicated with: OTILIA Barrientos [address] [place] [address] and Betty Steve [facility] for Doctor Freitas Recommendation: Recommend to cleanse wounds to R lateral Abdomen and L lateral Abdomen with normal saline only and apply mary thick santyl ointment to wound beds with saline moistened 4x4 gauze pads loosely packed into wounds. Please cover with dry cover dressing and change daily.Please apply skin prep to periwound and before adhesive is applied to skin Please cleanse wound to R medial abdomen with normal saline and apply Dakins 1/ 4 strength or 0.125 % moistened 4x4 gauze pads loosely packed into wound bed and covered with dry cover dressing. Please change dressing daily. Please apply skin prep to periwound and before adhesive is applied to skin Additional Information: Patient has stage 4 pressure injuries noted on previous admission to L hip, R hip, and sacrum that are unable to be assessed due to patient's tolerance and bed. Will assess these wounds later. Dilcia Chavez [facility] Aug 28, 2016 12:53
[2016-08-28] MEDS: ACETAMINOPHEN/HYDROcodone 325 MG/10 MG TAB PO PRN ×2 (14:30→21:21)
--- NOTE | 2016-08-28 15:42 | PD.ID.CON ---
History of Present Illness Service ID Consult Requested By Dr Freitas Reason for Consult abdominal wounds, infected Primary Care Physician Lucas Freitas, DO Diagnoses: History of Present Illness Patient is a 55-year-old female with ESRD/ HD who was sent to ER from [facility] for Anemia with a HGB of 7. Patient with history of obesity, diabetes, end-stage renal disease on dialysis, status post surgery in [place] for poorly healing abdominal wounds, and has chronic open wounds. Pt has WBC and received Vancomycin in the ER. She has long standing ulcerations on her pannus and her L flank. 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 *MDRO Multi-Drug Resistant Organism (Verified Adverse Reaction, Unknown, ) VRE (abdominal wound) - 07/09/16 MDR-Pseudomonas (abdominal wound) - 07/09/16 Past Medical History Morbid obesity Osteoarthritis Hyperlipidemia explained CHF Diabetes Hypertension CAD ESRD on hemodialysis Friday and Friday Spinal stenosis Hypothyroidism Sleep apnea Problems with necrotic abdominal wounds Multiple decubitus ulcers Past Surgical History LAP-BAND 2004 Lap cholecystectomy 1996 Previous stent placement for her CAD Placement of a permacath section 1 AV fistula in the left upper extremity Multiple excisional debridement of her large abdominal wounds during her last admission The last surgical procedure included a panniculectomy and partial closure of her large abdominal wound done June 28, 2016 Active Ordered Medications Medications where reviewed in EMR Antibiotics Include: vancomycin Family History Non-Contributory. Social History In rehab No smoking No alcohol abuse No illicit drug Physical Exam Vital Signs Vital Signs Date Time Temp Pulse Resp B/P Pulse Ox O2 Delivery O2 Flow Rate FiO2 08/28/16 12:00 98.3 85 18 140/62 93 08/28/16 10:20 97.4 68 115/55 08/28/16 08:00 97.9 89 19 121/51 97 08/28/16 04:18 98.7 95 17 118/58 100 08/28/16 03:31 96 86/53 100 Room Air 08/28/16 03:10 98.9 92 18 84/49 98 Room Air 08/28/16 02:27 16 100 Room Air 08/27/16 23:44 98.7 97 18 124/49 100 Physical Exam CONSTITUTIONAL/GENERAL: This is morbidly obese patient, in no apparent distress. TUBES/LINES/DRAINS: SKIN: No jaundice, rashes, Skin temperature appropriate. Not diaphoretic. She has unstagable large wound with black necrotic eschar and irregular borders , very tender to palpation with odorless serous dc Surrounding skin is edematous, erythemaous She has nearly coml,letely healed L abdominal incision, but the R side is packes , still not healed, area is very tender kalen palpation and has brandy e edema , no purulence, minimal seros dc, no necrotic tissue L inner thigh with tender induration, some erythema is present HEAD: Atraumatic. Normocephalic. EYES: Pupils equal and round and reactive. Extraocular motions intact. No scleral icterus. No injection or drainage. Fundi not examined. ENT: Hearing grossly normal. Nose without bleeding or purulent drainage. Throat without visible erythema, exudates, masses, or lesions. NECK: Trachea midline. Supple, nontender. CARDIOVASCULAR: Regular rate and rhythm without murmurs, gallops, or rubs. No JVD. Peripheral pulses symmetric. RESPIRATORY/CHEST: Symmetric, unlabored respirations. Clear to auscultation. Breath sounds equal bilaterally. No wheezes, rales, or rhonchi. GASTROINTESTINAL: Abdomen soft, non-tender, nondistended. No hepato-splenomegaly , or palpable masses. No guarding. Bowel sounds present. GENITOURINARY: Without palpable bladder distension. Ruiz catheter in place. MUSCULOSKELETAL: Extremities without clubbing, cyanosis, + chronic appaering edema with very prominent pachydermopathy and tree bark montelongo. No joint tenderness or effusion noted. No calf tenderness. No mottling or clubbing. LYMPHATICS: No palpable cervical or supraclavicular adenopathy. NEUROLOGICAL: Awake and alert. Follows commands. Clear speech Minimally moves b/l lower extremities. PSYCHIATRIC: No obvious anxiety/depression. no apparent hallucinations or other psychotic thought process. Laboratory Laboratory Tests Test 08/28/16 08/28/16 00:22 01:58 White Blood Count 13.9 Red Blood Count 2.48 Hemoglobin 6.9 Hematocrit 21.5 Mean Corpuscular Volume 86.5 Mean Corpuscular Hemoglobin 27.9 Mean Corpuscular Hemoglobin 32.3 Concent Red Cell Distribution Width 16.8 Platelet Count 535 Mean Platelet Volume 6.8 Neutrophils (%) (Auto) 76.7 Lymphocytes (%) (Auto) 12.8 Monocytes (%) (Auto) 6.6 Eosinophils (%) (Auto) 3.3 Basophils (%) (Auto) 0.6 Neutrophils # (Auto) 10.6 Lymphocytes # (Auto) 1.8 Monocytes # (Auto) 0.9 Eosinophils # (Auto) 0.5 Basophils # (Auto) 0.1 CBC Comment DIFF FINAL Differential Comment Prothrombin Time 11.8 Prothromb Time International 1.1 Ratio Activated Partial 36.4 Thromboplast Time Sodium Level 134 Potassium Level 4.9 Chloride Level 95 Carbon Dioxide Level 25.7 Anion Gap 13 Blood Urea Nitrogen 61 Creatinine 5.17 Estimat Glomerular Filtration 9 Rate Random Glucose 195 Calcium Level 9.4 Total Bilirubin 0.2 Aspartate Amino Transf 26 (AST/SGOT) Alanine Aminotransferase 26 (ALT/SGPT) Alkaline Phosphatase 109 Total Protein 7.6 Albumin 1.7 Blood Type O POSITIVE Antibody Screen NEGATIVE Crossmatch Leukocyte-Reduced Red Blood Cells Blood Bank Comment Lactic Acid Level 1.5 Date/Time Procedure Status Source Growth 08/28/16 11:45 Gram Stain Received Wound Abdomen Pending 08/28/16 11:45 Wound Culture Received Wound Abdomen Pending 08/28/16 11:45 Cancelled Wound Abdomen 08/28/16 01:54 Aerobic Blood Culture Received Blood Peripheral Pending 08/28/16 01:54 Anaerobic Blood Culture Received Blood Peripheral Pending Result Diagram: 08/28/16 0022 08/28/16 0022 Assessment and Plan Assessment and Plan ESRD/HD Necrotic wounds involving pannus, L flank H/o MDROs (PSAE, VRE) previouls ? new lesion to develop on L thigh ?ethiology calcifilaxis was r/o on prev admission bx fu wound and blood clx vanco per levels for now but might have to change epr clx Bel Adorno MD Aug 28, 2016 15:42
[2016-08-28] MEDS: ATORVASTATIN 40 MG TAB PO SCH (21:21)
[2016-08-29] VITALS: BP 124/59; PULSE 74; RESP 17; TEMP 97.2; O2SAT 100
[2016-08-29] MEDS: cloNIDine HCL 0.1 MG TAB PO SCH ×3 (03:59→17:11)
[2016-08-29] MEDS: LEVOTHYROXINE SODIUM 200 MCG TAB PO SCH (03:59)
[2016-08-29] MEDS: ENOXAPARIN SODIUM 30 MG/0.3 ML SYRINGE SQ SCH (03:59)
[2016-08-29] MEDS: ACETAMINOPHEN/HYDROcodone 325 MG/10 MG TAB PO PRN ×4 (03:59→22:55)
[2016-08-29 04:00] VITALS: BP 140/66; PULSE 86; RESP 17; TEMP 99.1; O2SAT 99
[2016-08-29 05:22] LABS: AUTOMATED NEUTROPHIL # 7.5 TH/MM3 (1.8-7.7); BASOPHIL # 0.1 TH/MM3 (0-0.2); BASOPHIL % 0.8 % (0.0-2.0); EOSINOPHIL # 0.5 TH/MM3 (0-0.4); EOSINOPHIL % 4.7 % (0.0-4.0); HEMATOCRIT 24.2 % (35.0-46.0); HEMO FLAGS DIFF FINAL; LYMPH % 15.9 % (9.0-44.0); LYMPHOCYTE # 1.6 TH/MM3 (1.0-4.8); MEAN CELL VOLUME 85.1 FL (80.0-100.0); MEAN CORPUSCULAR HEMOGLOBIN 27.9 PG (27.0-34.0); MEAN CORPUSCULAR HGB CONC 32.8 % (32.0-36.0); MONO % 4.8 % (0.0-8.0); NEUT % 73.8 % (16.0-70.0); PLATELET COUNT 450 TH/MM3 (150-450); RED BLOOD COUNT 2.84 MIL/MM3 (4.00-5.30); RED CELL DISTRIBUTION WIDTH 16.6 % (11.6-17.2); WHITE BLOOD COUNT 10.1 TH/MM3 (4.0-11.0)
[2016-08-29 06:00] LABS: ALT (GPT) 25 U/L (10-53); ANION GAP 10 MEQ/L (5-15); BICARBONATE 24.9 MEQ/L (21.0-32.0); BLOOD UREA NITROGEN 72 MG/DL (7-18); CHLORIDE 97 MEQ/L (98-107); GLOMERULAR FILTRATION RATE 7 ML/MIN (>89); POTASSIUM 4.9 MEQ/L (3.5-5.1); SODIUM (NA) 132 MEQ/L (136-145)
[2016-08-29] MEDS: POVIDONE IODINE 10% SOLN 118 ML BOTTLE TOPICAL SCH ×4 (06:00→21:09)
[2016-08-29] MEDS ORDERED: Vancomycin Consult Pharmacy 1 EA OTHER SCH (06:00)
[2016-08-29 06:14] LABS: ALKALINE PHOSPHATASE 103 U/L (45-117); AST (GOT) 22 U/L (15-37); FREE T3 1.26 PG/ML (2.18-3.98); FREE T4 1.31 NG/DL (0.76-1.46); HDL CHOLESTEROL 30.2 MG/DL (40.0-60.0); LDL CHOLESTEROL 23 MG/DL (0-99); TOTAL BILIRUBIN ADULT 0.2 MG/DL (0.2-1.0)
--- NOTE | 2016-08-29 07:45 | HHI.PR ---
Subjective Remarks Patient denies any CP or SOB. Feels very frustrated about diet and food limitations. Objective Vital Signs Date Time Temp Pulse Resp B/P Pulse Ox O2 Delivery O2 Flow Rate FiO2 08/29/16 04:00 99.1 86 17 140/66 99 08/29/16 00:00 97.2 74 17 124/59 100 08/28/16 22:21 18 08/28/16 20:00 98.1 79 17 133/62 100 08/28/16 18:06 99 21 08/28/16 16:00 98.6 87 17 136/60 99 08/28/16 12:00 98.3 85 18 140/62 93 08/28/16 10:20 97.4 68 115/55 08/28/16 08:00 97.9 89 19 121/51 97 I/O 08/28/16 08/28/16 08/28/16 08/29/16 08/29/16 08/29/16 07:00 15:00 23:00 07:00 15:00 23:00 Intake Total 240 ml 720 ml 240 ml 240 ml Output Total 0 ml Balance 240 ml 720 ml 240 ml 240 ml Intake Oral 240 ml 720 ml 240 ml 240 ml IV Total 0 ml Output Urine Total 0 ml Stool Total 0 ml # Voids 0 1 2 Result Diagram: 08/29/16 0505 08/29/16 0505 Objective Remarks GENERAL: Well-developed middle age obese white female patient who is in moderate distress. Awake and oriented 3. SKIN: Focused skin assessment warm/dry. ENT: Mucous membranes pink and moist. CARDIOVASCULAR: Regular rate and rhythm. No murmur appreciated. RESPIRATORY: No accessory muscle use. Clear to auscultation. Breath sounds equal bilaterally. GASTROINTESTINAL: Abdomen soft, obese, with notable lower abdominal chronic wounds which are fairly tender to palpation and left hip area wound, nondistended. Hepatic and splenic margins not palpable. MUSCULOSKELETAL: No obvious deformities. No clubbing. No cyanosis. No edema. NEUROLOGICAL: Awake and alert. No obvious cranial nerve deficits. Motor grossly within normal limits. Normal speech. PSYCHIATRIC: Appropriate mood and affect; insight and judgment normal. Medications and IVs Current Medications Medications (Trade) Dose Ordered Sig/Soren Route Start Time Stop Time Status Last Admin (Xanax) 0.25 mg Q6H PRN PO 08/28/16 02:00 (Ecotrin Ec) 81 mg DAILY PO 08/28/16 09:00 08/28/16 08:49 (Lipitor) 40 mg HS PO 08/28/16 21:00 08/28/16 21:21 (Rocaltrol) 0.5 mcg DAILY PO 08/28/16 09:00 08/28/16 08:49 (Vitamin D3) 10,000 units BID PO 08/28/16 09:00 08/28/16 21:22 (Sensipar) 30 mg DAILY PO 08/28/16 09:00 08/28/16 09:00 (Catapres) 0.1 mg Q6HR PO 08/28/16 06:00 (Benadryl) 25 mg Q6H PRN PO 08/28/16 02:00 (PROzac) 10 mg DAILY PO 08/28/16 09:00 08/28/16 09:00 (Neurontin) 100 mg BID PO 08/28/16 09:00 08/28/16 21:21 (Racine 5-325 Mg) 1 tab Q4H PRN PO 08/28/16 02:00 08/28/16 08:50 (Levemir Inj) 5 units HS SQ 08/28/16 21:00 08/28/16 21:00 (Levemir Inj) 10 units DAILY SQ 08/28/16 09:00 08/28/16 08:56 (Synthroid) 400 mcg DAILY@06 PO 08/28/16 06:00 08/29/16 03:59 (Antivert) 25 mg TID PRN PO 08/28/16 02:00 (Megace Liq) 400 mg DAILY PO 08/28/16 09:00 (Zofran Odt) 4 mg Q6HR PRN SL 08/28/16 02:00 (Betadine 10% Top Soln) 1 applic Q8HR TOPICAL 08/28/16 06:00 (Luciana-Colace) 1 tab BID PO 08/28/16 09:00 08/28/16 21:21 (Renvela) 1,600 mg TIDAC PO 08/28/16 08:00 08/28/16 17:49 (Vitamin B12) 1,000 mcg DAILY PO 08/28/16 09:00 08/28/16 08:49 (NovoLOG INJ) 5 units TIDAC SQ 08/28/16 08:00 08/28/16 17:52 (NS Flush) 2 ml UNSCH PRN IV FLUSH 08/28/16 02:15 (NS Flush) 2 ml BID IV FLUSH 08/28/16 09:00 08/28/16 21:23 (Tylenol) 650 mg Q4H PRN PO 08/28/16 02:15 (Zofran Inj) 4 mg Q6H PRN IVP 08/28/16 02:15 (Lovenox Inj) 30 mg Q24H SQ 08/28/16 06:00 08/29/16 03:59 (Narcan Inj) 0.4 mg UNSCH PRN IV 08/28/16 02:15 (Milk Of Magnesia Liq) 30 ml Q12H PRN PO 08/28/16 02:15 (Senokot) 17.2 mg Q12H PRN PO 08/28/16 02:15 (Dulcolax Supp) 10 mg DAILY PRN RECTAL 08/28/16 02:15 (Lactulose Liq) 30 ml DAILY PRN PO 08/28/16 02:15 (Pill Splitter) 1 ea UNSCH PRN OTHER 08/28/16 02:45 (D50w (Vial) Inj) 50 ml UNSCH PRN IV 08/28/16 09:45 (Glucagon Inj) 1 mg UNSCH PRN OTHER 08/28/16 09:45 Acetaminophen/ Hydrocodone Bitart 1 tab 1 tab Q4H PRN PO 08/28/16 11:15 08/29/16 03:59 (NS 1000 ml Inj) 1,000 ml @ 0 mls/hr Q0M PRN IV 08/28/16 11:17 Heparin Sodium (Porcine) 8000 units 8,000 units UNSCH PRN IVF 08/28/16 11:30 Sodium Chloride 1,000 ml @ 200 mls/hr Q5H PRN IV 08/28/16 11:17 (NS 1000 ml Inj) 1,000 ml @ 0 mls/hr Q0M PRN IV 08/28/16 11:17 (Mannitol Inj) 12.5 gm UNSCH PRN IV 08/28/16 11:30 (Albumin 25% Inj) 25 gm UNSCH PRN IV 08/28/16 11:30 (NS Flush) 5 ml UNSCH PRN IV FLUSH 08/28/16 11:30 (Heparin Inj) UNSCH PRN .XX 08/28/16 11:30 (Gentamicin (Dialysis) Inj) 20 mg UNSCH PRN IV 08/28/16 11:30 (Zofran Inj) 4 mg UNSCH PRN IV 08/28/16 11:30 (Tylenol) 650 mg UNSCH PRN PO 08/28/16 11:30 (Benadryl) 25 mg UNSCH PRN PO 08/28/16 11:30 (Nitrostat Sl) 0.4 mg UNSCH PRN SL 08/28/16 11:30 (Catapres) 0.1 mg UNSCH PRN PO 08/28/16 11:30 (Epogen Inj) 10,000 units UNSCH PRN IV 08/28/16 11:30 (Gelfoam 12 Mm/7 Mm Top) 1 foam UNSCH PRN TOP 08/28/16 11:30 Oxycodone/ Acetaminophen 1 tab 1 tab Q4H PRN PO 08/28/16 18:00 (Vancomycin Consult Pharmacy) 0 ml @ 0 mls/hr UNSCH OTHER 08/29/16 06:00 Assessment and Plan Problem List: (1) Anemia in chronic kidney disease Status: Acute Plan: HGB stable at 7.9. Monitoring (2) End stage kidney disease Status: Chronic Plan: Patient was scheduled for dialysis yesterday which she did not get yesterday secondary to pain. Nephrology consulted. She is followed by Dr. Jimenez. Dialysis scheduled for today. (3) Type II diabetes mellitus with neurological manifestations, uncontrolled Status: Chronic Plan: BS ordered AC and HS continue current regimen will monitor (4) Hypertension, benign Status: Chronic Plan: Blood pressure 140/66 will monitor (5) Open wound of abdomen Status: Acute Plan: Wound care consulted. Patient complaining of increased discomfort. Dr. Freitas notified and medication adjusted. Wound care and ID consulted. Vancomycin ordered after dialysis and wound culture pending. Wound care orders placed and plastic consulted per recommendations. (6) Chronic back pain Status: Acute Plan: Continue current regimen monitoring (7) Depression Status: Chronic Plan: Continue treatment and monitoring. Assessment and Plan Assessment and plan discussed with Dr. Freitas Discussed Condition With Nursing Discharge Planning Plan is for discharge to [facility] Physician Attestation I and the WEEKDAY BABYSITTER have both examined this patient and reviewed this note and i agree with these findings and plan of care. Lucas Freitas. Betty Rose. [facility] Aug 29, 2016 07:44
[2016-08-29 08:00] VITALS: BP 129/61; PULSE 88; RESP 18; TEMP 98; O2SAT 98
[2016-08-29] MEDS: SEVELAMER CARBONATE 800 MG TAB PO SCH ×3 (08:00→15:38)
[2016-08-29] MEDS: INSULIN ASPART 1,000 UNITS/10 ML VIAL SQ SCH ×3 (08:00→17:10)
[2016-08-29] MEDS: INSULIN DETEMIR 100 UNITS/ML VIAL SQ SCH ×2 (09:00→21:09)
[2016-08-29] MEDS: FLUoxetine HCL 10 MG CAP PO SCH (09:00)
[2016-08-29] MEDS: CYANOCOBALAMIN 1,000 MCG TAB PO SCH (09:00)
[2016-08-29] MEDS: CINACALCET HYDROCHLORIDE 30 MG TAB PO SCH (09:00)
[2016-08-29] MEDS: MEGESTROL ACETATE SUSP 400 MG/10 ML CUP PO SCH (09:00)
[2016-08-29] MEDS: CALCITRIOL 0.25 MCG CAP PO SCH (09:00)
[2016-08-29] MEDS: GABAPENTIN 100 MG CAP PO SCH ×2 (09:00→21:02)
[2016-08-29] MEDS: SODIUM CHLORIDE 0.9% FLUSH 10 ML FLUSH IV FLUSH SCH ×2 (09:00→21:04)
[2016-08-29] MEDS: CHOLECALCIFEROL (VIT D3) 5000 UNIT CAP PO SCH ×2 (09:00→21:03)
[2016-08-29] MEDS: ASPIRIN EC 81 MG TABEC PO SCH (09:00)
[2016-08-29] MEDS: DOCUSATE SODIUM 50 MG/SENNA 8.6 MG TAB PO SCH ×2 (09:00→21:00)
[2016-08-29] MEDS: HEPARIN SODIUM - IV 10,000 UNITS/10 ML VIAL PRN ×2 (10:17→10:22)
[2016-08-29] MEDS: GENTAMICIN SULFATE (DIALYSIS USE ONLY) 20 MG/2 ML VIAL IV PRN ×2 (10:17→10:22)
[2016-08-29] MEDS: EPOETIN ALFA 10,000 UNITS/ML VIAL IV PRN ×2 (10:17→10:22)
[2016-08-29] MEDS: VANCOMYCIN INJ 1,000 MG in SODIUM CHLOR 0.9% 250 ML INJ 250 ML IV SCH ×2 (10:19→10:23)
[2016-08-29 13:15] VITALS: BP 136/63; PULSE 100; RESP 17; TEMP 97.3; O2SAT 98
--- NOTE | 2016-08-29 14:30 | HHI.NPPN ---
Subjective General Problems: Anemia, Edema Renal Failure: End Stage Renal Disease History of Present Illness 55-year-old female with past medical history of hypertension, diabetes mellitus, morbid obesity, history of abdominal wounds, congestive heart failure, anxiety, arthritis, hypothyroidism, end-stage renal disease on hemodialysis, chronic anemia, who was transferred to the hospital because of severe anemia and leukocytosis. I was called to see the patient because of management of hemodialysis. Additional Remarks Patient seen during HD, doing better, no SOB, and no abd. pain. Review of Systems General Constitutional: Fatigue Cardiovascular Cardiac: GRIFFIN Gastrointestinal Gastrointestinal: Abdominal Pain Objective Data Data 08/28/16 08/29/16 18:59 06:59 Intake Total 720 ml 480 ml Output Total 0 ml Balance 720 ml 480 ml Intake Oral 720 ml 480 ml IV Total 0 ml Output Urine Total 0 ml Stool Total 0 ml # Voids 3 Vital Signs Date Time Temp Pulse Resp B/P Pulse Ox O2 Delivery O2 Flow Rate FiO2 08/29/16 08:00 98.0 88 18 129/61 98 08/29/16 04:00 99.1 86 17 140/66 99 08/29/16 00:00 97.2 74 17 124/59 100 08/28/16 22:21 18 08/28/16 20:00 98.1 79 17 133/62 100 08/28/16 18:06 99 21 08/28/16 16:00 98.6 87 17 136/60 99 -: 08/29/16 0505 08/29/16 0505 Physical Exam General Appearance: No Acute Distress, Comfortable Eyes Eye Exam: Pupils Equal Ears & Nose Ears & Nose Exam: Tympanic Membranes Normal Throat Throat Exam: Oral Mucosa Nazlini & Moist Neck Neck Exam: Neck Supple, Trachea Midline Pulmonary Resp Exam: Breath Sounds Equal, No Distress, Rhonchi, Decreased Bases Gastrointestinal/Abdomen GI Exam: Soft, Non-Tender, Bowel Sounds Present, Distended Extremeties Extremities Exam: Moderate Edema, Dependent Edema Neurologic Neuro Exam: Alert, Awake, Oriented Psychiatric Psych Exam: Appropriate Responses Assessment/Plan Assessment Summary: Anemia of CKD, End Stage Renal Disease Problem List: (1) Infected surgical wound (2) Anxiety (3) Diabetes (4) Malnutrition (5) HTN (hypertension) (6) End stage renal disease on dialysis Plan Patient received transfusion yesterday. On Epogen with HD. No active bleeding. HD now, remove 2-3 liters. Started on Vancomycin with HD as oer ID. Follow Hgb. level Problem Qualifiers (1) Diabetes: (2) HTN (hypertension): Qualified Code: I10 - Essential hypertension Valentin Jimenez MD Aug 29, 2016 14:30
--- NOTE | 2016-08-29 15:07 | PD.PLAS.PN ---
Subjective Remarks Patient is resting comfortably in bed. Her attending is Dr. Freitas, who is present. He states that she was initially brought to [place] yesterday because of severe anemia, which has been treated satisfactorily. Patient is status post panniculectomy for necrotic wounds on 06/28/16 and debridement of wounds of hips, sacrum, and abdomen on 07/19/16. Objective Vital Signs Date Time Temp Pulse Resp B/P Pulse Ox O2 Delivery O2 Flow Rate FiO2 08/29/16 08:00 98.0 88 18 129/61 98 08/29/16 04:00 99.1 86 17 140/66 99 08/29/16 00:00 97.2 74 17 124/59 100 08/28/16 22:21 18 08/28/16 20:00 98.1 79 17 133/62 100 08/28/16 18:06 99 21 08/28/16 16:00 98.6 87 17 136/60 99 I/O 08/28/16 08/28/16 08/28/16 08/29/16 08/29/16 08/29/16 07:00 15:00 23:00 07:00 15:00 23:00 Intake Total 240 ml 720 ml 240 ml 240 ml Output Total 0 ml Balance 240 ml 720 ml 240 ml 240 ml Intake Oral 240 ml 720 ml 240 ml 240 ml IV Total 0 ml Output Urine Total 0 ml Stool Total 0 ml # Voids 0 1 2 Laboratory Tests Test 08/28/16 08/29/16 20:00 05:05 Hemoglobin 8.0 7.9 White Blood Count 10.1 Red Blood Count 2.84 Hematocrit 24.2 Mean Corpuscular Volume 85.1 Mean Corpuscular Hemoglobin 27.9 Mean Corpuscular Hemoglobin 32.8 Concent Red Cell Distribution Width 16.6 Platelet Count 450 Mean Platelet Volume 6.5 Neutrophils (%) (Auto) 73.8 Lymphocytes (%) (Auto) 15.9 Monocytes (%) (Auto) 4.8 Eosinophils (%) (Auto) 4.7 Basophils (%) (Auto) 0.8 Neutrophils # (Auto) 7.5 Lymphocytes # (Auto) 1.6 Monocytes # (Auto) 0.5 Eosinophils # (Auto) 0.5 Basophils # (Auto) 0.1 CBC Comment DIFF FINAL Differential Comment Sodium Level 132 Potassium Level 4.9 Chloride Level 97 Carbon Dioxide Level 24.9 Anion Gap 10 Blood Urea Nitrogen 72 Creatinine 6.01 Estimat Glomerular Filtration 7 Rate Random Glucose 158 Calcium Level 8.7 Total Bilirubin 0.2 Aspartate Amino Transf 22 (AST/SGOT) Alanine Aminotransferase 25 (ALT/SGPT) Alkaline Phosphatase 103 Total Protein 6.9 Albumin 1.5 Triglycerides Level 157 Cholesterol Level 85 LDL Cholesterol 23 HDL Cholesterol 30.2 Cholesterol/HDL Ratio 2.81 Free Thyroxine 1.31 Free Triiodothyronine (T3) 1.26 pg/dL Thyroid Stimulating Hormone 1.120 3rd Gen Date/Time Procedure Status Source Growth 08/28/16 11:45 Gram Stain - Final Resulted Wound Abdomen 08/28/16 11:45 Wound Culture Resulted Wound Abdomen Pending 08/28/16 11:45 Cancelled Wound Abdomen 08/28/16 01:54 Aerobic Blood Culture - Preliminary Resulted Blood Peripheral NO GROWTH IN 1 DAY 08/28/16 01:54 Anaerobic Blood Culture - Preliminary Resulted Blood Peripheral NO GROWTH IN 1 DAY Result Diagram: 08/29/16 0505 08/29/16 0505 Exam Findings Abdominal wounds are dressed with saline wet to dry. Abdominal wounds are healing well. Wounds of the abdomen are pink and granulating without evidence of infection. There is no cellulitis or maceration or odor. Wound bed of the left hip is dressed with xeroform and ABD. The majority of the wound bed is covered with slough and eschar. There is no evidence of infection. There is no cellulitis or maceration to periwound skin. Wound of the right hip is dressed with xeroform and ABD. The majormity of the wound bed is covered with slough and eschar. There is no purulence, odor, or other evidence of infection. There is no cellulitis or maceration to periwound skin. Wound of the sacrum is dressed with saline wet to dry. Wound bed is clean with red granulation tissue. There is no evidence of infection. There is no cellulitis or maceration to periwound skin. Assessment and Plan Diagnosis: (1) Open wound of abdomen Plan: Wounds of the abdomen and sacrum are healing well. Continue with daily wound care including cleansing the wounds with wound cleanser or betadine then apply saline wet to dry dressings. (2) Pressure ulcer of coccygeal region Plan: Wounds of the abdomen and sacrum are healing well. Continue with daily wound care including cleansing the wounds with wound cleanser or betadine then apply saline wet to dry dressings. (3) Open wound of right hip and thigh Plan: Daily wound care including cleansing wound with wound cleanser or betadine, the apply betadine wet to dry. (4) Open wound of left hip and thigh Plan: Daily wound care including cleansing wound with wound cleanser or betadine, the apply betadine wet to dry. Assessment and Plan Discussed with Dr. Zena RN. Dress wounds as described above. Betadine is ordered. Patient is able to be released back to SNF on wound care and return for further outpatient evaluation. Will discuss with Dr. Meyers. Dana Romero Aug 29, 2016 15:07
[2016-08-29] MEDS: oxyCODONE/ACETAMINOPHEN 10 MG/325 MG TAB PO PRN ×2 (15:37→19:42)
[2016-08-29 15:49] LABS: HEMOGLOBIN A1a 1.1 %; HEMOGLOBIN Ao 83.5 %; HEMOGLOBIN F 1.1 %; HEMOGLOBIN LA1C 2.4 %; HEMOGLOBIN P3 6.3 %
[2016-08-29 16:00] VITALS: BP 113/54; PULSE 100; RESP 18; TEMP 99.2; O2SAT 99
[2016-08-29 20:00] VITALS: BP 105/53; PULSE 99; RESP 18; TEMP 99.5; O2SAT 95
[2016-08-29] MEDS: ATORVASTATIN 40 MG TAB PO SCH (21:00)
[2016-08-30] VITALS: BP 126/57; PULSE 85; RESP 19; TEMP 96.8; O2SAT 97
[2016-08-30 02:17] VITALS: PULSE 77
[2016-08-30] MEDS: ENOXAPARIN SODIUM 30 MG/0.3 ML SYRINGE SQ SCH (05:09)
[2016-08-30] MEDS: ACETAMINOPHEN/HYDROcodone 325 MG/10 MG TAB PO PRN ×3 (05:09→17:14)
[2016-08-30] MEDS: POVIDONE IODINE 10% SOLN 118 ML BOTTLE TOPICAL SCH ×3 (05:10→14:00)
[2016-08-30] MEDS: cloNIDine HCL 0.1 MG TAB PO SCH ×4 (05:10→17:15)
[2016-08-30 06:07] LABS: HEMATOCRIT 26.3 % (35.0-46.0); MEAN CELL VOLUME 85.2 FL (80.0-100.0); MEAN CORPUSCULAR HEMOGLOBIN 28.3 PG (27.0-34.0); MEAN CORPUSCULAR HGB CONC 33.2 % (32.0-36.0); PLATELET COUNT 507 TH/MM3 (150-450); RED BLOOD COUNT 3.08 MIL/MM3 (4.00-5.30); RED CELL DISTRIBUTION WIDTH 16.3 % (11.6-17.2); REVIEW FLAG FINAL; WHITE BLOOD COUNT 11.3 TH/MM3 (4.0-11.0)
[2016-08-30 06:27] LABS: BICARBONATE 29.4 MEQ/L (21.0-32.0); POTASSIUM 4.2 MEQ/L (3.5-5.1)
[2016-08-30 08:00] VITALS: BP 131/14; PULSE 115; RESP 16; TEMP 99.2; O2SAT 98
[2016-08-30] MEDS: INSULIN ASPART 1,000 UNITS/10 ML VIAL SQ SCH ×3 (08:00→17:00)
[2016-08-30] MEDS: oxyCODONE/ACETAMINOPHEN 10 MG/325 MG TAB PO PRN ×2 (08:42→14:21)
[2016-08-30] MEDS: CHOLECALCIFEROL (VIT D3) 5000 UNIT CAP PO SCH (08:43)
[2016-08-30] MEDS: GABAPENTIN 100 MG CAP PO SCH (08:43)
[2016-08-30] MEDS: SEVELAMER CARBONATE 800 MG TAB PO SCH ×3 (08:45→17:00)
[2016-08-30] MEDS: CYANOCOBALAMIN 1,000 MCG TAB PO SCH (08:45)
[2016-08-30] MEDS: CINACALCET HYDROCHLORIDE 30 MG TAB PO SCH (08:45)
[2016-08-30] MEDS: DOCUSATE SODIUM 50 MG/SENNA 8.6 MG TAB PO SCH (08:45)
[2016-08-30] MEDS: ASPIRIN EC 81 MG TABEC PO SCH (08:45)
[2016-08-30] MEDS: CALCITRIOL 0.25 MCG CAP PO SCH (08:45)
[2016-08-30] MEDS: FLUoxetine HCL 10 MG CAP PO SCH (08:45)
[2016-08-30] MEDS: MEGESTROL ACETATE SUSP 400 MG/10 ML CUP PO SCH (08:46)
[2016-08-30] MEDS: SODIUM CHLORIDE 0.9% FLUSH 10 ML FLUSH IV FLUSH SCH (08:46)
[2016-08-30] MEDS: INSULIN DETEMIR 100 UNITS/ML VIAL SQ SCH (09:00)
[2016-08-30] MEDS ORDERED: THYROID 60 MG TAB PO SCH (09:00)
--- NOTE | 2016-08-30 09:46 | PD.PLAS.PN ---
Subjective Remarks No acute complaints today. Objective Vital Signs Date Time Temp Pulse Resp B/P Pulse Ox O2 Delivery O2 Flow Rate FiO2 08/30/16 08:00 99.2 115 16 131/14 98 08/30/16 06:19 18 08/30/16 02:17 77 08/30/16 00:00 96.8 85 19 126/57 97 08/29/16 21:09 18 08/29/16 20:00 99.5 99 18 105/53 95 08/29/16 16:00 99.2 100 18 113/54 99 08/29/16 13:15 97.3 100 17 136/63 98 I/O 08/29/16 08/29/16 08/29/16 08/30/16 08/30/16 08/30/16 07:00 15:00 23:00 07:00 15:00 23:00 Intake Total 240 ml 0 ml 240 ml 240 ml Output Total 0 ml Balance 240 ml 0 ml 240 ml 240 ml Intake Oral 240 ml 0 ml 240 ml 240 ml Output Urine Total 0 ml # Voids 2 1 2 # Bowel Movements 1 0 0 Laboratory Tests Test 08/30/16 05:08 White Blood Count 11.3 Red Blood Count 3.08 Hemoglobin 8.7 Hematocrit 26.3 Mean Corpuscular Volume 85.2 Mean Corpuscular Hemoglobin 28.3 Mean Corpuscular Hemoglobin 33.2 Concent Red Cell Distribution Width 16.3 Platelet Count 507 Mean Platelet Volume 6.6 Sodium Level 136 Potassium Level 4.2 Chloride Level 97 Carbon Dioxide Level 29.4 Anion Gap 10 Blood Urea Nitrogen 45 Creatinine 4.42 Estimat Glomerular Filtration 10 Rate Random Glucose 116 Calcium Level 9.7 Date/Time Procedure Status Source Growth 08/28/16 11:45 Gram Stain - Final Complete Wound Abdomen 08/28/16 11:45 Wound Culture - Final Complete S. Aureus Mrsa 08/28/16 11:45 Cancelled Wound Abdomen 08/28/16 01:54 Aerobic Blood Culture - Preliminary Resulted Blood Peripheral NO GROWTH IN 1 DAY 08/28/16 01:54 Anaerobic Blood Culture - Preliminary Resulted Blood Peripheral NO GROWTH IN 1 DAY Result Diagram: 08/30/16 0508 08/30/16 0508 Exam Findings Wounds not examined today. Assessment and Plan Diagnosis: (1) Open wound of abdomen Plan: (2) Pressure ulcer of coccygeal region (3) Open wound of right hip and thigh (4) Open wound of left hip and thigh Assessment and Plan Patent is cleared to be discharged back to SNF and will follow up on outpatient basis. Dressing changes discussed with RN and outlined in discharge order. Dana Romero Aug 30, 2016 09:45
[2016-08-30] MEDS ORDERED: SODIUM HYPOCHLORITE 0.25% 500 ML BTL TOPICAL SCH (10:00)
[2016-08-30] MEDS ORDERED: DAKINSHST TOPICAL (11:30)
[2016-08-30] MEDS ORDERED: GELFOAM TOP (11:30)
[2016-08-30] MEDS ORDERED: ARMO60TA PO (11:30)
--- NOTE | 2016-08-30 11:36 | HHI.DS ---
Discharge Summary Admission Date Aug 28, 2016 at 01:44 Admitting Diagnosis severe anemia/chronic renal failure/leukocytosis/chronic abdominal w (1) End stage kidney disease (2) Symptomatic anemia (3) Hypertension, benign (4) Type II diabetes mellitus with neurological manifestations, uncontrolled (5) Anxiety (6) Wounds, multiple (7) Anemia in chronic kidney disease (8) Depression Brief History Patient is a 55-year-old female who was sent to ER from [facility] for Anemia with a HGB of 7. Patient with history of obesity, diabetes, end-stage renal disease on dialysis, status post surgery in [place] for poorly healing abdominal wounds, and has chronic open wounds. She currently is complaining of ongoing chronic abdominal wound pains but denies any significant chest pains, shortness of breath, or other symptoms. She is found to have a elevated WBC and received Vancomycin in the ER. Wound care, nephrology, and ID have been consulted CBC/BMP: 08/30/16 0508 08/30/16 0508 Significant Findings Laboratory Tests Test 08/28/16 08/28/16 08/29/16 08/30/16 00:22 20:00 05:05 05:08 White Blood Count 13.9 TH/MM3 11.3 TH/MM3 (4.0-11.0) (4.0-11.0) Red Blood Count 2.48 MIL/MM3 2.84 MIL/MM3 3.08 MIL/MM3 (4.00-5.30) (4.00-5.30) (4.00-5.30) Hemoglobin 6.9 GM/DL 8.0 GM/DL 7.9 GM/DL 8.7 GM/DL (11.6-15.3) (11.6-15.3) (11.6-15.3) (11.6-15.3) Hematocrit 21.5 % 24.2 % 26.3 % (35.0-46.0) (35.0-46.0) (35.0-46.0) Platelet Count 535 TH/MM3 507 TH/MM3 (150-450) (150-450) Mean Platelet Volume 6.8 FL 6.5 FL 6.6 FL (7.0-11.0) (7.0-11.0) (7.0-11.0) Neutrophils (%) (Auto) 76.7 % 73.8 % (16.0-70.0) (16.0-70.0) Neutrophils # (Auto) 10.6 TH/MM3 (1.8-7.7) Eosinophils # (Auto) 0.5 TH/MM3 0.5 TH/MM3 (0-0.4) (0-0.4) Prothrombin Time 11.8 SEC (9.8-11.6) Activated Partial 36.4 SEC Thromboplast Time (24.3-30.1) Sodium Level 134 MEQ/L 132 MEQ/L (136-145) (136-145) Chloride Level 95 MEQ/L 97 MEQ/L 97 MEQ/L (98-107) (98-107) (98-107) Blood Urea Nitrogen 61 MG/DL (7-18) 72 MG/DL (7-18) 45 MG/DL (7-18) Creatinine 5.17 MG/DL 6.01 MG/DL 4.42 MG/DL (0.50-1.00) (0.50-1.00) (0.50-1.00) Estimat Glomerular Filtration 9 ML/MIN (>89) 7 ML/MIN (>89) 10 ML/MIN (>89) Rate Random Glucose 195 MG/DL 158 MG/DL 116 MG/DL (74-106) (74-106) (74-106) Albumin 1.7 GM/DL 1.5 GM/DL (3.4-5.0) (3.4-5.0) Eosinophils (%) (Auto) 4.7 % (0.0-4.0) Triglycerides Level 157 MG/DL (42-150) Cholesterol Level 85 MG/DL (120-200) HDL Cholesterol 30.2 MG/DL (40.0-60.0) Free Triiodothyronine (T3) 1.26 PG/ML pg/dL (2.18-3.98) PE at Discharge GENERAL: Well-developed middle age obese white female patient who is in moderate distress. Awake and oriented 3. SKIN: Focused skin assessment warm/dry. ENT: Mucous membranes pink and moist. CARDIOVASCULAR: Regular rate and rhythm. No murmur appreciated. RESPIRATORY: No accessory muscle use. Clear to auscultation. Breath sounds equal bilaterally. GASTROINTESTINAL: Abdomen soft, obese, with notable lower abdominal chronic wounds which are fairly tender to palpation and left hip area wound, nondistended. Hepatic and splenic margins not palpable. MUSCULOSKELETAL: No obvious deformities. No clubbing. No cyanosis. No edema. NEUROLOGICAL: Awake and alert. No obvious cranial nerve deficits. Motor grossly within normal limits. Normal speech. PSYCHIATRIC: Appropriate mood and affect; insight and judgment normal. Hospital Course Patient is a 55-year-old female who was sent to ER from [facility] for Anemia with a HGB of 7. Patient with history of obesity, diabetes, end-stage renal disease on dialysis, status post surgery in [place] for poorly healing abdominal wounds, and has chronic open wounds. She currently is complaining of ongoing chronic abdominal wound pains but denies any significant chest pains, shortness of breath, or other symptoms. She is found to have a elevated WBC and received Vancomycin in the ER. Wound care, nephrology, and ID have been consulted. During exam patient is falling asleep during exam. Patient was transfused 2 units of PRBC during her stay which she tolerated well. She was also followed by wound care and ID for poorly healing abdominal wounds. Antibiotics will be per ID at discharge discussed with Dr Adorno. She is discharged to SNF and will need to continue to have dialysis 3 X week. She will also need to follow up with plastics in reference to wounds. Discharge was discussed with Dr. Freitas and cleared for discharge Pt Condition on Discharge: Good Discharge Disposition: Discharge to SNF Discharge Instructions DIET: Follow Instructions for: Diabetic Diet, Renal Failure Diet Activities you can perform: Regular-No Restrictions Follow up Referrals: Appointment for Follow Up PCP Follow-up New Medications: Gelfoam Sponge (Gelfoam Sponge) 12-7 Mm Pad 1 FOAM TOP UNSCH PRN SEE LABEL COMMENTS #30 BOX Sodium Hypochlorite Topical (Dakins Solution Half Strength Topical) 0.2-0.25 % Soln 500 ML TOPICAL DAILY Infection #30 ML Thyroid ([place] Thyroid) 60 Mg Tab 60 MG PO DAILY t #30 TAB Continued Medications: Alprazolam (Xanax) 0.25 Mg Tab 0.25 MG PO Q6H PRN ANXIETY Ref [address] (Aspirin 81) 81 Mg Tabdr 81 MG PO DAILY Ref 0 TAB Atorvastatin (Atorvastatin) 40 Mg Tab 40 MG PO HS Cholesterol Management #30 Ref 0 TAB Calcitriol (Calcitriol) 0.5 Mcg Cap 0.5 MCG PO DAILY Calcium Supplement #30 Ref 0 CAP Cholecalciferol (Vitamin D3) 10,000 Unit Tab 06278 UNITS PO BID Nutritional Supplement #1 Ref 0 BOTTLE Cinacalcet (Sensipar) 30 Mg Tab 30 MG PO DAILY CKD #30 Ref 0 TAB Clonidine (Clonidine) 0.1 Mg Tab 0.1 MG PO Q6HR Blood Pressure Management #60 Ref 0 TAB Diphenhydramine (Diphenhydramine) 25 Mg Cap 25 MG PO Q6H PRN ALLERGIES Ref 0 CAP Fluoxetine (Prozac) 10 Mg Cap 10 MG PO DAILY Depression Control #30 Ref 0 CAP Gabapentin (Gabapentin) 100 Mg Cap 100 MG PO BID #60 Ref 0 CAP Insulin Detemir Inj (Levemir Inj) 1,000 unit/ 10 ML Vial 10 UNITS SQ DAILY Do not mix with any other Insulin. Blood Sugar Management Ref 0 VIAL Insulin Detemir Inj (Levemir Inj) 1,000 unit/ 10 ML Vial 5 UNITS SQ HS Hold for BS less than 100mg/dl Blood Sugar Management Ref 0 VIAL Insulin Regular (Human) (Novolin R Relion) 100 Unit/Ml Inj Meclizine (Meclizine) 25 Mg Tab 25 MG PO TID PRN VERTIGO #30 CAP Megestrol Liq (Megestrol Liq) 40 Mg/Ml Susp 400 MG PO DAILY increase appetite #30 CAP Methylcobalamin (B-12) 1,000 Mcg Sub 1000 MCG PO DAILY Ondansetron Odt (Zofran Odt) 4 Mg Tab 4 MG SL Q6HR PRN Nausea/Vomiting #30 Ref 0 TAB Sennosides-Docusate Sodium (Senna Plus 8.6-50 mg) 1 Tab Tab 1 TAB PO BID constipation #30 Ref 0 TAB Sevelamer Carbonate (Renvela) 800 Mg Tab 1600 MG PO TID CKD #90 Ref 0 TAB Discontinued Medications: Hydrocodone-Acetaminophen (Hydrocodone-Acetaminophen) 5-325 mg Tab 1 TAB PO Q4H PRN pain #20 Ref 0 TAB Levothyroxine (Levothyroxine) 200 Mcg Tab 400 MCG PO DAILY Thyroid #30 Ref 0 TAB Meropenem Inj (Meropenem Inj) 1 Gm/50 Ml Bag 1000 MG IV Q24H Infection #1 Ref 0 BAG Methadone (Dolophine) 10 Mg Tab 5 MG PO Q8HR chronic pain #20 Ref 0 TAB Povidone-Iodine Topical (Betadine Topical) 10% Soln 1 APPLIC TOPICAL Q8HR Apply to abdominal wound every shift-apply betadine soaked ABD pad and secure w/tape #59 ML Povidone-Iodine Topical (Betadine Topical) 10% Soln 1 APPLIC TOPICAL DAILY Apply to rt hip wound after nss wash then cover w/dsd daily #59 ML ([Insulin Aspart]) 5 UNIT IM with meals PRN tid Betty Rose Aug 30, 2016 11:36
[2016-08-30 12:00] VITALS: BP 107/69; PULSE 112; RESP 15; TEMP 98.1; O2SAT 100
--- NOTE | 2016-08-30 13:28 | HHI.FF ---
Infusion Therapy Location of Infusion Therapy: [facility] Infusion Therapy Order Patient Information Patient Weight 129.3 kg Diagnosis: Diagnosis infected wounds Coded Allergies: Biaxin (Verified Allergy, Severe, swelling of face, 05/10/16) Iron (Verified Adverse Reaction, Severe, Constipation, 05/10/16) Morphine (Verified Adverse Reaction, Severe, 06/11/16) renal insufficiency. *MDRO Multi-Drug Resistant Organism (Verified Adverse Reaction, Unknown, ) VRE (abdominal wound) - 07/09/16 MDR-Pseudomonas (abdominal wound) - 07/09/16 Administer Medication Vancomycin 1 gram IV q 48 hours w/Hemodialysis ,,Fri Start Treatment: Aug 30, 2016 Stop Treatment: Sep 06, 2016 Additional Information Venous access: Tunneled Catheter Additional Instructions [x] Peripheral flush and dressing changes per protocol [x] Implanted port and central line repairer: * Implanted port: 10 ml Normal Saline followed by 5 ml Heparin 100 units/ml Heparin flush after each use and monthly to maintain. [] May leave port accessed during therapy. [] May leave peripheral site accessed for duration of therapy. [x] If patient has SOB or respiratory distress, check oxygen saturation. If less than 90% or clinical signs of respiratory distress, administer oxygen at 2 L/min. via nasal cannula and notify physician. [x] Anaphylaxis/Reaction orders: * Stop infusion. * Keep IV line open with saline flush. * Notify physician. * Monitor vital signs every 15 minutes until symptoms resolve. * Check Oxygen saturation; Oxygen at 2 L/min. via nasal cannula if less than 90% or clinical signs of respiratory distress. * Administer diphenhydramine (Benadryl) 25 mg IV STAT, (unless patient has received as pre-med). May repeat once, if necessary. * Solu-Cortef 250 mg IVP over 30-60 seconds, use 100 mg vials for each dissolution. * Epinephrine (1mg/1 ml) 0.3 mg subcutaneously or IVP now with any signs of respiratory distress. * Check with physician for new additional pre-med orders if patient is re- challenged or re-treated. [x] May remove PICC line when treatment complete, after confirming with Physician. [x] If the patient is admitted to the hospital, the ED, or transferred via [facility] , complete transfer form including medication reconciliation order sheet. Bel Adorno MD Aug 30, 2016 13:28
[2016-08-30] MEDS ORDERED: EPIN1INJ21 SQ (13:41)
[2016-08-30] MEDS ORDERED: VANC1000P IV ×2 (13:41→15:24)
[2016-08-30] MEDS ORDERED: SOLU250I IV PUSH (13:41)
[2016-08-30] MEDS ORDERED: EPIN1INJ21 IV PUSH (13:41)
--- NOTE | 2016-08-30 15:23 | HHI.IDPN ---
Subjective Subjective Remarks co very painfull ulcers the dressings were just changed Pt showed me the pics from her pheone of the ulcers - essentially unchanged, large amount of b[place] eschar > 50% No fever Antibiotics Vanco w HD Allergies: Coded Allergies: Biaxin (Verified Allergy, Severe, swelling of face, 05/10/16) Iron (Verified Adverse Reaction, Severe, Constipation, 05/10/16) Morphine (Verified Adverse Reaction, Severe, 06/11/16) renal insufficiency. *MDRO Multi-Drug Resistant Organism (Verified Adverse Reaction, Unknown, ) VRE (abdominal wound) - 07/09/16 MDR-Pseudomonas (abdominal wound) - 07/09/16 Objective . Vital Signs Date Time Temp Pulse Resp B/P Pulse Ox O2 Delivery O2 Flow Rate FiO2 08/30/16 12:00 98.1 112 15 107/69 100 08/30/16 08:00 99.2 115 16 131/14 98 08/30/16 06:19 18 08/30/16 02:17 77 08/30/16 00:00 96.8 85 19 126/57 97 08/29/16 21:09 18 08/29/16 20:00 99.5 99 18 105/53 95 08/29/16 16:00 99.2 100 18 113/54 99 08/29/16 08/29/16 08/30/16 15:00 23:00 07:00 Intake Total 0 ml 240 ml 240 ml Output Total 2900 ml 0 ml Balance -2900 ml 240 ml 240 ml Intake Oral 0 ml 240 ml 240 ml Output Urine Total 0 ml Hemodialysis 2900 ml # Voids 1 2 # Bowel Movements 1 0 0 . Laboratory Tests Test 08/28/16 08/29/16 08/30/16 20:00 05:05 05:08 Hemoglobin 8.0 GM/DL 7.9 GM/DL 8.7 GM/DL White Blood Count 10.1 TH/MM3 11.3 TH/MM3 Red Blood Count 2.84 MIL/MM3 3.08 MIL/MM3 Hematocrit 24.2 % 26.3 % Mean Corpuscular Volume 85.1 FL 85.2 FL Mean Corpuscular Hemoglobin 27.9 PG 28.3 PG Mean Corpuscular Hemoglobin 32.8 % 33.2 % Concent Red Cell Distribution Width 16.6 % 16.3 % Platelet Count 450 TH/MM3 507 TH/MM3 Mean Platelet Volume 6.5 FL 6.6 FL Neutrophils (%) (Auto) 73.8 % Lymphocytes (%) (Auto) 15.9 % Monocytes (%) (Auto) 4.8 % Eosinophils (%) (Auto) 4.7 % Basophils (%) (Auto) 0.8 % Neutrophils # (Auto) 7.5 TH/MM3 Lymphocytes # (Auto) 1.6 TH/MM3 Monocytes # (Auto) 0.5 TH/MM3 Eosinophils # (Auto) 0.5 TH/MM3 Basophils # (Auto) 0.1 TH/MM3 CBC Comment DIFF FINAL Differential Comment Laboratory Tests Test 08/29/16 08/30/16 05:05 05:08 Sodium Level 132 MEQ/L 136 MEQ/L Potassium Level 4.9 MEQ/L 4.2 MEQ/L Chloride Level 97 MEQ/L 97 MEQ/L Carbon Dioxide Level 24.9 MEQ/L 29.4 MEQ/L Anion Gap 10 MEQ/L 10 MEQ/L Blood Urea Nitrogen 72 MG/DL 45 MG/DL Creatinine 6.01 MG/DL 4.42 MG/DL Estimat Glomerular Filtration 7 ML/MIN 10 ML/MIN Rate Random Glucose 158 MG/DL 116 MG/DL Hemoglobin A1c 5.5 % Calcium Level 8.7 MG/DL 9.7 MG/DL Total Bilirubin 0.2 MG/DL Aspartate Amino Transf 22 U/L (AST/SGOT) Alanine Aminotransferase 25 U/L (ALT/SGPT) Alkaline Phosphatase 103 U/L Total Protein 6.9 GM/DL Albumin 1.5 GM/DL Triglycerides Level 157 MG/DL Cholesterol Level 85 MG/DL LDL Cholesterol 23 MG/DL HDL Cholesterol 30.2 MG/DL Cholesterol/HDL Ratio 2.81 RATIO Free Thyroxine 1.31 NG/DL Free Triiodothyronine (T3) 1.26 PG/ML pg/dL Thyroid Stimulating Hormone 1.120 uIU/ML 3rd Gen Microbiology Date/Time Procedure Status Source Growth 08/28/16 01:30 Aerobic Blood Culture - Preliminary Resulted Blood Peripheral NO GROWTH IN 2 DAYS 08/28/16 01:30 Anaerobic Blood Culture - Preliminary Resulted Blood Peripheral NO GROWTH IN 2 DAYS 08/28/16 01:54 Aerobic Blood Culture - Preliminary Resulted Blood Peripheral NO GROWTH IN 2 DAYS 08/28/16 01:54 Anaerobic Blood Culture - Preliminary Resulted Blood Peripheral NO GROWTH IN 2 DAYS 08/28/16 11:45 Gram Stain - Final Complete Wound Abdomen 08/28/16 11:45 Wound Culture - Final Complete S. Aureus Mrsa 08/28/16 11:45 Cancelled Wound Abdomen Physical Exam CONSTITUTIONAL/GENERAL: This is morbidly obese patient, in no apparent distress. TUBES/LINES/DRAINS: Permacath in place R chest - site OK SKIN: No jaundice, rashes, Skin temperature appropriate. Not diaphoretic. dressings in place; pt refused dressigns to be removed 2/2 pain RESPIRATORY/CHEST: Symmetric, unlabored respirations. MUSCULOSKELETAL: Extremities without clubbing, cyanosis, no edema + chronic appaering edema with very prominent pachydermopathy and tree bark mont[place]. No joint tenderness or effusion noted. No calf tenderness. No mottling or clubbing. NEUROLOGICAL: Awake and alert. Follows commands. Clear speech PSYCHIATRIC: calm and cooperative Assessment & Plan Remarks ESRD/HD Necrotic wounds involving pannus, L flank - MRSA in the wound ? mild infx H/o MDROs (PSAE, VRE) previouls ? new lesion to develop on L thigh ?ethiology calcifilaxis was r/o on prev admission bx fu wound and blood clx vanco w HD x 10 days Bel Adorno MD Aug 30, 2016 15:23
--- NOTE | 2016-08-30 15:26 | HHI.FF ---
Infusion Therapy Location of Infusion Therapy: [facility] Infusion Therapy Order Patient Information Patient Weight 129.3 kg Diagnosis: Diagnosis infected ulcers, MRSA Coded Allergies: Biaxin (Verified Allergy, Severe, swelling of face, 05/10/16) Iron (Verified Adverse Reaction, Severe, Constipation, 05/10/16) Morphine (Verified Adverse Reaction, Severe, 06/11/16) renal insufficiency. *MDRO Multi-Drug Resistant Organism (Verified Adverse Reaction, Unknown, ) VRE (abdominal wound) - 07/09/16 MDR-Pseudomonas (abdominal wound) - 07/09/16 Administer Medication Vancomycin 1 gram IV q 48 hours w/Hemodialysis ,,Fri Start Treatment: Aug 30, 2016 Stop Treatment: Sep 08, 2016 Additional Information Venous access: Tunneled Catheter Additional Instructions [x] Peripheral flush and dressing changes per protocol [x] Implanted port and central online tutor: * Implanted port: 10 ml Normal Saline followed by 5 ml Heparin 100 units/ml Heparin flush after each use and monthly to maintain. [] May leave port accessed during therapy. [] May leave peripheral site accessed for duration of therapy. [x] If patient has SOB or respiratory distress, check oxygen saturation. If less than 90% or clinical signs of respiratory distress, administer oxygen at 2 L/min. via nasal cannula and notify physician. [x] Anaphylaxis/Reaction orders: * Stop infusion. * Keep IV line open with saline flush. * Notify physician. * Monitor vital signs every 15 minutes until symptoms resolve. * Check Oxygen saturation; Oxygen at 2 L/min. via nasal cannula if less than 90% or clinical signs of respiratory distress. * Administer diphenhydramine (Benadryl) 25 mg IV STAT, (unless patient has received as pre-med). May repeat once, if necessary. * Solu-Cortef 250 mg IVP over 30-60 seconds, use 100 mg vials for each dissolution. * Epinephrine (1mg/1 ml) 0.3 mg subcutaneously or IVP now with any signs of respiratory distress. * Check with physician for new additional pre-med orders if patient is re- challenged or re-treated. [x] May remove PICC line when treatment complete, after confirming with Physician. [x] If the patient is admitted to the hospital, the ED, or transferred via [facility] , complete transfer form including medication reconciliation order sheet. Laboratory Tests Weekly Labs: CBC w/diff Bel Adorno MD Aug 30, 2016 15:26
[2016-08-30 16:00] VITALS: BP 138/61; PULSE 92; RESP 17; TEMP 97.4; O2SAT 98
--- NOTE | 2016-08-30 16:37 | HHI.NPPN ---
Subjective General Problems: Anemia, Edema Renal Failure: End Stage Renal Disease History of Present Illness 55-year-old female with past medical history of hypertension, diabetes mellitus, morbid obesity, history of abdominal wounds, congestive heart failure, anxiety, arthritis, hypothyroidism, end-stage renal disease on hemodialysis, chronic anemia, who was transferred to the hospital because of severe anemia and leukocytosis. I was called to see the patient because of management of hemodialysis. Additional Remarks Patient has no verbal complaints currently. Infectious disease note was reviewed. Review of Systems General Constitutional: Fatigue Cardiovascular Cardiac: GRIFFIN Gastrointestinal Gastrointestinal: Abdominal Pain Objective Data Data 08/29/16 08/30/16 19:00 07:00 Intake Total 0 ml 480 ml Output Total 2900 ml 0 ml Balance -2900 ml 480 ml Intake Oral 0 ml 480 ml Output Urine Total 0 ml Hemodialysis 2900 ml # Voids 1 2 # Bowel Movements 1 0 Vital Signs Date Time Temp Pulse Resp B/P Pulse Ox O2 Delivery O2 Flow Rate FiO2 08/30/16 12:00 98.1 112 15 107/69 100 08/30/16 08:00 99.2 115 16 131/14 98 08/30/16 06:19 18 08/30/16 02:17 77 08/30/16 00:00 96.8 85 19 126/57 97 08/29/16 21:09 18 08/29/16 20:00 99.5 99 18 105/53 95 -: 08/30/16 0508 08/30/16 0508 Tubes & Lines: Perma-Cath Physical Exam General Appearance: No Acute Distress, Comfortable Eyes Eye Exam: Pupils Equal Ears & Nose Ears & Nose Exam: Tympanic Membranes Normal Throat Throat Exam: Oral Mucosa [place] & Moist Neck Neck Exam: Neck Supple, Trachea Midline Pulmonary Resp Exam: Breath Sounds Equal, No Distress, Rhonchi, Decreased Bases Gastrointestinal/Abdomen GI Exam: Soft, Non-Tender, Bowel Sounds Present, Distended Extremeties Extremities Exam: Trace Edema, Dependent Edema Neurologic Neuro Exam: Alert, Awake, Oriented Psychiatric Psych Exam: Appropriate Responses Assessment/Plan Assessment Summary: Anemia of CKD, End Stage Renal Disease Problem List: (1) End stage renal disease on dialysis Plan: Patient appears stable from a renal point of view. Noted for discharge today with outpatient antibiotics arranged by infectious disease. Outpatient care will be provided by covering residential mortgage underwriter. (2) Infected surgical wound (3) Anxiety (4) Diabetes (5) Malnutrition (6) HTN (hypertension) Plan Problem Qualifiers (1) Diabetes: (2) HTN (hypertension): Qualified Code: I10 - Essential hypertension Dilma Phelan MD Aug 30, 2016 16:37
== END 2016-08-30 20:07 | DRG 291 ==
LOC: NEPC 23:38 → NEDA 08-28 01:44 → N07A 08-28 04:12 → UNDODISIN 08-30 19:55
PROVIDERS: ADMIT Family Medicine; ATTEND Family Medicine
PROC: 30253N1 (ICD-10-PCS; principal; 2016-08-28)
DX: I13.2 Hypertensive heart and chronic kidney disease with heart failure and with stage 5 chronic kidney disease, or end stage renal disease (principal); N18.6 End stage renal disease; L89.159 Pressure ulcer of sacral region, unspecified stage; E11.22 Type 2 diabetes mellitus with diabetic chronic kidney disease; E46 Unspecified protein-calorie malnutrition; D63.1 Anemia in chronic kidney disease; S31.109A Unspecified open wound of abdominal wall, unspecified quadrant without penetration into peritoneal cavity, initial encounter; T81.4XXA Infection following a procedure, initial encounter; I50.9 Heart failure, unspecified; I25.10 Atherosclerotic heart disease of native coronary artery without angina pectoris; J44.9 Chronic obstructive pulmonary disease, unspecified; E78.5 Hyperlipidemia, unspecified; F41.8 Other specified anxiety disorders; E03.9 Hypothyroidism, unspecified; E11.49 Type 2 diabetes mellitus with other diabetic neurological complication; E11.65 Type 2 diabetes mellitus with hyperglycemia; G47.30 Sleep apnea, unspecified; G89.29 Other chronic pain; E66.01 Morbid (severe) obesity due to excess calories; Z79.4 Long term (current) use of insulin; Z87.891 Personal history of nicotine dependence; Z98.84 Bariatric surgery status; Z99.2 Dependence on renal dialysis; X58.XXXA Exposure to other specified factors, initial encounter; Y92.9 Unspecified place or not applicable
CPT/HCPCS: 36430; 76937; 80048; 80053; 80061; 80074; 82948; 83036; 83605; 84439; 84443; 84481; 85018; 85025; 85027; 85610; 85730; 86850; 86900; 86901; 86920; 86922; 87040; 87070; 87077; 87186; 87205; 90935; 96365; 96374; 96375; J1170; J1580; J1644; J1650; J1815; J2405; J3370; J7050; P9016; Q4081

== ENCOUNTER 2016-09-30 17:29 | Inpatient (IN) | payer MEDICARE, MEDICAID ==
[~2016-09-30] VITALS: Ht 160 cm; Wt 140.9 kg
[2016-09-30] VITALS: BP 121/47; PULSE 102; RESP 20; TEMP 97.8; O2SAT 100
[~2016-09-30 17:29] MED LIST changes: +ALPR.25 PO; +ARMO60TA PO; +ATOR40TA16 PO; -BETA10SO TOPICAL; +CLON0.1T PO; +DAKINSHST TOPICAL; +DIPH25CA PO; -DOLO10TA PO; +EPIN1INJ21 IV PUSH; +EPIN1INJ21 SQ; +GELFOAM TOP; -HYDR-3516 PO; +INSUINJ3; -LEVO200T4 PO; -MERO1INJ8 IV; +SOLU250I IV PUSH; +VANC1000P IV; +ZOFR4TAB3 SL
--- NOTE | 2016-09-30 17:54 | PD ---
HPI Chief Complaint: Abnormal Results Time Seen by Provider: 17:40 Travel History International Travel<30 days: No Contact w/Intl Traveler<30days: No Traveled to known affect area: No History of Present Illness HPI This is a 55-year-old female with history of end-stage renal disease on dialysis TRS who is sent here for treatment of low hemoglobin. 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 She has had issues with anemia in the past. She denies any abdominal pain, black or tarry stools, hematochezia, hematemesis. She is currently being treated at [facility]. She is being treated for C. difficile with Flagyl reportedly. She has been having diarrhea for 3 weeks. She endorses some fatigue. She reports chronic wounds on her buttocks which are being cared for at [facility]. She has no other complaints. PFS Past Medical History Arthritis: Yes Asthma: No Autoimmune Disease: No Blood Disorders: No Anxiety: Yes Heart Rhythm Problems: No Cancer: No Cardiac Catheterization: Yes High Cholesterol: Yes Chemotherapy: No Chest Pain: Yes Congestive Heart Failure: Yes COPD: Yes Diabetes: Yes Dialysis: Yes (,,) Diminished Hearing: No Endocrine: Yes Genitourinary: Yes Hepatitis: No Hiatal Hernia: No Heparin Induced Thrombocytopen: No Hypertension: Yes Immune Disorder: No Implanted Vascular Access Dvce: Yes Musculoskeletal: Yes Neurologic: No Psychiatric: No Reproductive: No Respiratory: No Radiation Therapy: No Renal Failure: Yes Sickle Cell Disease: No Sleep Apnea: Yes Thyroid Disease: Yes Triglycerides - High: Yes Menopausal: Yes : 1 Para: 1 Past Surgical History Abdominal Surgery: Yes (ABD WOUND sx for friction) AICD: No Arteriovenous Shunt: Yes (AV FISTULA LEFT , VAS CATH RIGHT CHEST) Body Medical Devices: av fistula Cardiac Surgery: No Section: Yes (X 1) Cholecystectomy: Yes (1996) Coronary Stent: Yes (x1 June 2012) Ear Surgery: No Endocrine Surgery: No Eye Surgery: No Genitourinary Surgery: No Joint Replacement: No Neurologic Surgery: No Oral Surgery: Yes (T&A) Pacemaker: No Thoracic Surgery: No Tonsillectomy: Yes Other Surgery: Yes (LAP BAND, VAS CATH) Social History Alcohol Use: No Tobacco Use: No Substance Use: No Allergies-Medications (Allergen,Severity, Reaction): Coded Allergies: Biaxin (Verified Allergy, Severe, swelling of face, 05/10/16) Iron (Verified Adverse Reaction, Severe, Constipation, 05/10/16) Morphine (Verified Adverse Reaction, Severe, 06/11/16) renal insufficiency. *MDRO Multi-Drug Resistant Organism (Verified Adverse Reaction, Unknown, VRE, MRSA, MDR-Pseudomonas, 09/02/16) VRE (abdominal wound) - 07/09/16 MDR-Pseudomonas (abdominal wound) - 07/09/16 MRSA (abdomen wound) - 08/28/16 Reported Meds & Prescriptions Reported Meds & Active Scripts Active Vancomycin Inj (Vancomycin HCl) 1,000 Mg Inj 1,000 Mg IV WITH DIALYSIS 10 Days Epinephrine Inj 1 Mg/Ml Inj 0.3 Mg SQ ONCE PRN Give with any signs of respiratory distress. Epinephrine Inj 1 Mg/Ml Inj 0.3 Mg IV PUSH ONCE PRN Solu-Cortef Inj (Hydrocortisone Sodium Succinate) 250 Mg Inj 250 Mg IV PUSH ONCE PRN Give over 30-60 seconds. Gelfoam Sponge (Gelatin) 12-7 Mm Pad 1 Foam TOP UNSCH PRN Dakins Solution Half Strength Topical (Sodium Hypochlorite) 0.2-0.25 % Soln 500 Ml TOPICAL DAILY [place] Thyroid (Thyroid) 60 Mg Tab 60 Mg PO DAILY Meclizine (Meclizine HCl) 25 Mg Tab 25 Mg PO TID PRN Megestrol Liq (Megestrol Acetate) 40 Mg/Ml Susp 400 Mg PO DAILY Renvela (Sevelamer Carbonate) 800 Mg Tab 1,600 Mg PO TID Senna Plus 8.6-50 mg (Sennosides-Docusate Sodium) 1 Tab Tab 1 Tab PO BID Sensipar (Cinacalcet) 30 Mg Tab 30 Mg PO DAILY Reported Zofran Odt (Ondansetron Odt) 4 Mg Tab 4 Mg SL Q6HR PRN Atorvastatin (Atorvastatin Calcium) 40 Mg Tab 40 Mg PO HS Diphenhydramine (Diphenhydramine HCl) 25 Mg Cap 25 Mg PO Q6H PRN Clonidine (Clonidine HCl) 0.1 Mg Tab 0.1 Mg PO Q6HR Xanax (Alprazolam) 0.25 Mg Tab 0.25 Mg PO Q6H PRN Novolin R Relion (Insulin Regular (Human)) 100 Unit/Ml Inj Vitamin D3 (Cholecalciferol) 10,000 Unit Tab 10,000 Units PO BID Levemir Inj (Insulin Detemir) 1,000 unit/ 10 ML Vial 5 Units SQ HS Hold for BS less than 100mg/dl Levemir Inj (Insulin Detemir) 1,000 unit/ 10 ML Vial 10 Units SQ DAILY Do not mix with any other Insulin. Prozac (Fluoxetine HCl) 10 Mg Cap 10 Mg PO DAILY B-12 (Methylcobalamin) 1,000 Mcg Sub 1,000 Mcg PO DAILY Gabapentin 100 Mg Cap 100 Mg PO BID Aspirin 81 (Aspirin) 81 Mg Tabdr 81 Mg PO DAILY Calcitriol 0.5 Mcg Cap 0.5 Mcg PO DAILY Review of Systems Except as stated in HPI: all other systems reviewed are Neg Physical Exam Narrative GENERAL: This is a chronically ill-appearing female who is in no acute distress sitting upright in her wheelchair. SKIN: Warm and dry. Clean Bandages noted on the buttocks. HEAD: Atraumatic. Normocephalic. EYES: Pupils equal and round. No scleral icterus. No injection or drainage. ENT: No nasal bleeding or discharge. Mucous membranes pink and moist. NECK: Trachea midline. No JVD. CARDIOVASCULAR: Regular rate and rhythm. No murmur appreciated. RESPIRATORY: No accessory muscle use. Clear to auscultation. Breath sounds equal bilaterally. GASTROINTESTINAL: Abdomen soft, non-tender, nondistended. Hepatic and splenic margins not palpable. MUSCULOSKELETAL: No obvious deformities. NEUROLOGICAL: Awake and alert. No obvious cranial nerve deficits. Motor grossly within normal limits. Normal speech. PSYCHIATRIC: Appropriate mood and affect; insight and judgment normal. Data Data Last Documented VS Vital Signs Date Time Temp Pulse Resp B/P Pulse Ox O2 Delivery O2 Flow Rate FiO2 09/30/16 18:31 98.5 106 12 90/51 95 Room Air Orders Isolation 08,20 (09/30/16 17:45) Type And Screen (09/30/16 17:50) Complete Blood Count With Diff (09/30/16 17:50) Comprehensive Metabolic Panel (09/30/16 17:50) Prothrombin Time / Inr (Pt) (09/30/16 17:50) Act Partial Throm Time (Ptt) (09/30/16 17:50) Iv Access Insert/Monitor (09/30/16 17:50) Blood Product Administration .UPON TRANSFUSION (09/30/16 19:50) Sodium Chlor 0.9% 250 Ml Inj (Ns 250 Ml (09/30/16 20:00) Red Blood Cells (Rbc) (09/30/16 19:50) Lactic Acid Sepsis Protocol (09/30/16 19:50) Blood Culture (09/30/16 19:50) Sodium Chlorid 0.9% 500 Ml Inj (Ns 500 M (09/30/16 20:00) Metronidazole 500 Mg Inj (Flagyl 500 Mg (09/30/16 20:00) Sodium Chlor 0.9% 1000 Ml Inj (Ns 1000 M (09/30/16 19:54) Admit Order (Ed Use Only) (09/30/16 20:00) Labs Laboratory Tests Test 09/30/16 09/30/16 19:00 19:53 White Blood Count 25.1 TH/MM3 Red Blood Count 2.39 MIL/MM3 Hemoglobin 6.7 GM/DL Hematocrit 21.4 % Mean Corpuscular Volume 89.7 FL Mean Corpuscular Hemoglobin 28.0 PG Mean Corpuscular Hemoglobin 31.2 % Concent Red Cell Distribution Width 17.9 % Platelet Count 380 TH/MM3 Mean Platelet Volume 7.9 FL Neutrophils (%) (Auto) 81.3 % Lymphocytes (%) (Auto) 5.1 % Monocytes (%) (Auto) 3.3 % Eosinophils (%) (Auto) 9.9 % Basophils (%) (Auto) 0.4 % Neutrophils # (Auto) 20.4 TH/MM3 Lymphocytes # (Auto) 1.3 TH/MM3 Monocytes # (Auto) 0.8 TH/MM3 Eosinophils # (Auto) 2.5 TH/MM3 Basophils # (Auto) 0.1 TH/MM3 CBC Comment AUTO DIFF Differential Total Cells 100 Counted Neutrophils % (Manual) 70 % Band Neutrophils % 11 % Lymphocytes % 5 % Monocytes % 1 % Eosinophils % 13 % Neutrophils # (Manual) 20.3 TH/MM3 Differential Comment FINAL DIFF MANUAL Platelet Estimate NORMAL Platelet Morphology Comment NORMAL Prothrombin Time 13.6 SEC Prothromb Time International 1.2 RATIO Ratio Activated Partial 38.2 SEC Thromboplast Time Sodium Level 133 MEQ/L Potassium Level 3.5 MEQ/L Chloride Level 99 MEQ/L Carbon Dioxide Level 23.0 MEQ/L Anion Gap 11 MEQ/L Blood Urea Nitrogen 48 MG/DL Creatinine 4.76 MG/DL Estimat Glomerular Filtration 9 ML/MIN Rate Random Glucose 180 MG/DL Calcium Level 7.8 MG/DL Total Bilirubin 0.3 MG/DL Aspartate Amino Transf 14 U/L (AST/SGOT) Alanine Aminotransferase 6 U/L (ALT/SGPT) Alkaline Phosphatase 114 U/L Total Protein 6.2 GM/DL Albumin 1.3 GM/DL Blood Type O POSITIVE Antibody Screen NEGATIVE Crossmatch Leukocyte-Reduced Red Blood Cells Blood Bank Comment MDM Medical Decision Making Medical Screen Exam Complete: Yes Emergency Medical Condition: Yes Medical Record Reviewed: Yes Differential Diagnosis Anemia and chronic kidney disease versus upper GI bleed versus lower GI bleed versus colitis Narrative Course 55-year-old female history of chronic kidney disease presents for treatment of low hemoglobin. Reportedly she had a hemoglobin of 6.9 as outpatient 2 days ago. In addition she reports that she is being treated for C. difficile with Flagyl at [facility]. Plan is for basic lab work. C. difficile precautions have been ordered. A rectal examination was recommended to assess for any blood in stool however the patient is vehemently refusing a rectal examination. The patient's blood pressure was noted to be 90 systolic. She reports that her blood pressure "always runs low." Her white count is elevated at 25 and her hemoglobin is 6.7. The patient will be given IV Flagyl for her known C. difficile infection. IV fluid boluses been ordered. 2 units packed red blood cells have been ordered. Discussed with Dr. Freitas who is agreeable with admission. The patient is a full code. The patient eventually had a bowel movement which was orange/mucousy in color and it was Hemoccult positive. HemaPrompt Point of Care Internal Pos. & Neg. Controls: Passed Fecal Specimen Occult Blood: Positive Diagnosis Primary Impression: Anemia in chronic kidney disease Qualified Code: N18.9 - Anemia in chronic kidney disease, unspecified CKD stage Additional Impressions: Leukocytosis Qualified Code: D72.829 - Leukocytosis, unspecified type Hx of Clostridium difficile infection Admitting Information Admitting Physician Requests: Admit Dallas Meyers Sep 30, 2016 17:54
[2016-09-30 18:31] VITALS: BP 90/51; PULSE 106; RESP 12; TEMP 98.5; O2SAT 95
[2016-09-30 19:36] LABS: AUTOMATED NEUTROPHIL # 20.4 TH/MM3 (1.8-7.7); BASOPHIL # 0.1 TH/MM3 (0-0.2); BASOPHIL % 0.4 % (0.0-2.0); EOSINOPHIL # 2.5 TH/MM3 (0-0.4); EOSINOPHIL % 9.9 % (0.0-4.0); LYMPH % 5.1 % (9.0-44.0); LYMPHOCYTE # 1.3 TH/MM3 (1.0-4.8); MEAN CELL VOLUME 89.7 FL (80.0-100.0); MEAN CORPUSCULAR HGB CONC 31.2 % (32.0-36.0); MONO % 3.3 % (0.0-8.0); NEUT % 81.3 % (16.0-70.0); PLATELET COUNT 380 TH/MM3 (150-450); RED BLOOD COUNT 2.39 MIL/MM3 (4.00-5.30); RED CELL DISTRIBUTION WIDTH 17.9 % (11.6-17.2); WHITE BLOOD COUNT 25.1 TH/MM3 (4.0-11.0)
[2016-09-30 19:39] LABS: HEMO FLAGS AUTO DIFF
[2016-09-30 19:43] LABS: HEMATOCRIT 21.4 % (35.0-46.0)
[2016-09-30 19:45] LABS: APTT (PATIENT) 38.2 SEC (24.3-30.1); INTERNATIONAL NORMALIZED RATIO 1.2 RATIO; PROTHROMBIN TIME - PATIENT 13.6 SEC (9.8-11.6)
[2016-09-30 19:46] LABS: ALT (GPT) 6 U/L (10-53)
[2016-09-30 19:48] LABS: ALKALINE PHOSPHATASE 114 U/L (45-117); TOTAL BILIRUBIN ADULT 0.3 MG/DL (0.2-1.0)
[2016-09-30 19:52] LABS: ANION GAP 11 MEQ/L (5-15); AST (GOT) 14 U/L (15-37); BLOOD UREA NITROGEN 48 MG/DL (7-18); CHLORIDE 99 MEQ/L (98-107); GLOMERULAR FILTRATION RATE 9 ML/MIN (>89); POTASSIUM 3.5 MEQ/L (3.5-5.1); SODIUM (NA) 133 MEQ/L (136-145)
[2016-09-30] MEDS ORDERED: SODIUM CHLOR 0.9% 1000 ML INJ 1,000 ML IV SCH (19:54)
[2016-09-30] MEDS ORDERED: SODIUM CHLOR 0.9% 250 ML INJ 250 ML IV ONE (20:00)
[2016-09-30] MEDS ORDERED: SODIUM CHLORID 0.9% 500 ML INJ 500 ML IV ONE (20:00)
[2016-09-30] MEDS ORDERED: metroNIDAZOLE 500 MG INJ 100 ML IV ONE (20:00)
[2016-09-30 20:18] LABS: BANDS 11 % (0-6); EOSINOPHILS 13 % (0-4); NEUTROPHIL # MANUAL DIFF 20.3 TH/MM3 (1.8-7.7); PLATELET ESTIMATE SMEAR NORMAL (NORMAL); PLATELET MORPHOLOGY NORMAL (NORMAL); POLYS (SEG NEUTROPHILS) 70 % (16-70); SCAN/DIFF FINAL DIFF MANUAL; WBC DIFF SAMPLE 100
[2016-09-30] MEDS ORDERED: LACTULOSE SYRUP 20 GM/30 ML CUP PO PRN (20:45)
[2016-09-30] MEDS ORDERED: GELATIN 12 MM/7 MM FOAM EXTERNAL PRN (20:45)
[2016-09-30] MEDS ORDERED: HYDROCORTISONE SOD SUCCINATE 250 MG VIAL IV PUSH PRN (20:45)
[2016-09-30] MEDS ORDERED: ONDANSETRON HCL 4 MG/2 ML VIAL IVP PRN (20:45)
[2016-09-30] MEDS ORDERED: SENNOSIDES 8.6 MG TAB PO PRN (20:45)
[2016-09-30] MEDS ORDERED: BISACODYL 10 MG SUPP RECTAL PRN (20:45)
[2016-09-30] MEDS ORDERED: SODIUM CHLORIDE 0.9% FLUSH 10 ML FLUSH IV FLUSH PRN (20:45)
[2016-09-30] MEDS ORDERED: NALOXONE HCL 0.4 MG/ML AMP IV PRN (20:45)
[2016-09-30] MEDS ORDERED: diphenhydrAMINE HCL 25 MG CAP PO PRN (20:45)
[2016-09-30] MEDS ORDERED: ONDANSETRON ODT 4 MG TAB SL PRN (20:45)
[2016-09-30] MEDS ORDERED: MAGNESIUM HYDROXIDE SUSP 30 ML CUP PO PRN (20:45)
[2016-09-30] MEDS ORDERED: EPINEPHrine HCL (1:1000) 1 MG/ML VIAL IV PUSH PRN (20:45)
[2016-09-30] MEDS ORDERED: MECLIZINE HCL 25 MG TAB PO PRN (20:45)
[2016-09-30] MEDS ORDERED: DOCUSATE SODIUM 50 MG/SENNA 8.6 MG TAB PO SCH (21:00)
[2016-09-30] MEDS: DOCUSATE SODIUM 50 MG/SENNA 8.6 MG TAB PO SCH (21:00)
[2016-09-30 22:31] LABS: LACTIC ACID GHOST NOT REPORTABLE
[2016-09-30 22:42] VITALS: BP 116/58; PULSE 94; RESP 20; TEMP 98.3; O2SAT 97
[2016-09-30] MEDS: SODIUM CHLORIDE 0.9% FLUSH 10 ML FLUSH IV FLUSH SCH (22:58)
[2016-09-30 23:02] VITALS: BP 119/69; PULSE 99; RESP 20; TEMP 98.5; O2SAT 98
[2016-10-01] VITALS (9 sets, daily range): BP systolic 84–121; BP diastolic 44–94; PULSE 89–102; RESP 16–20; TEMP 97.8–100; O2SAT 96–100
[2016-10-01] MEDS: ALPRAZolam 0.25 MG TAB PO PRN ×2 (01:26→20:36)
[2016-10-01] MEDS: cloNIDine HCL 0.1 MG TAB PO SCH ×5 (01:26→23:51)
[2016-10-01] MEDS: GABAPENTIN 100 MG CAP PO SCH ×3 (01:26→20:35)
[2016-10-01] MEDS: ATORVASTATIN 40 MG TAB PO SCH ×2 (01:27→20:35)
[2016-10-01] MEDS: CHOLECALCIFEROL (VIT D3) 5000 UNIT CAP PO SCH ×3 (01:31→20:34)
[2016-10-01] MEDS ORDERED: OXYBUTYNIN CHLORIDE 5 MG TAB PO PRN (02:00)
[2016-10-01 04:14] LABS: ANION GAP 13 MEQ/L (5-15); BICARBONATE 20.7 MEQ/L (21.0-32.0); CHLORIDE 102 MEQ/L (98-107); POTASSIUM 3.7 MEQ/L (3.5-5.1); SODIUM (NA) 136 MEQ/L (136-145)
[2016-10-01 04:19] LABS: ALKALINE PHOSPHATASE 98 U/L (45-117); ALT (GPT) LESS THAN 6 U/L (10-53); AST (GOT) 14 U/L (15-37); GLOMERULAR FILTRATION RATE 9 ML/MIN (>89); TOTAL BILIRUBIN ADULT 0.3 MG/DL (0.2-1.0)
[2016-10-01 04:25] LABS: BLOOD UREA NITROGEN 43 MG/DL (7-18)
[2016-10-01 05:33] LABS: AUTOMATED NEUTROPHIL # 16.1 TH/MM3 (1.8-7.7); BASOPHIL # 0.1 TH/MM3 (0-0.2); BASOPHIL % 0.3 % (0.0-2.0); EOSINOPHIL # 2.2 TH/MM3 (0-0.4); EOSINOPHIL % 10.7 % (0.0-4.0); HEMATOCRIT 21.1 % (35.0-46.0); LYMPH % 7.8 % (9.0-44.0); LYMPHOCYTE # 1.6 TH/MM3 (1.0-4.8); MEAN CELL VOLUME 83.8 FL (80.0-100.0); MEAN CORPUSCULAR HEMOGLOBIN 26.7 PG (27.0-34.0); MEAN CORPUSCULAR HGB CONC 31.9 % (32.0-36.0); MONO % 4.4 % (0.0-8.0); NEUT % 76.8 % (16.0-70.0); PLATELET COUNT 271 TH/MM3 (150-450); RED BLOOD COUNT 2.52 MIL/MM3 (4.00-5.30); WHITE BLOOD COUNT 20.9 TH/MM3 (4.0-11.0)
[2016-10-01 05:35] LABS: HEMO FLAGS AUTO DIFF
[2016-10-01 08:14] LABS: BANDS 11 % (0-6); CORRECTED NUCLEATED RBC 1 /100 WBC (0-0); EOSINOPHILS 15 % (0-4); PLATELET ESTIMATE SMEAR NORMAL (NORMAL); PLATELET MORPHOLOGY NORMAL (NORMAL); POLYS (SEG NEUTROPHILS) 61 % (16-70); SCAN/DIFF FINAL DIFF MANUAL; WBC DIFF SAMPLE 100
[2016-10-01] MEDS: CINACALCET HYDROCHLORIDE 30 MG TAB PO SCH (09:00)
[2016-10-01] MEDS: DOCUSATE SODIUM 50 MG/SENNA 8.6 MG TAB PO SCH ×2 (09:00→20:35)
[2016-10-01] MEDS: SODIUM HYPOCHLORITE 0.25% 500 ML BTL TOPICAL SCH (09:00)
[2016-10-01] MEDS: INSULIN DETEMIR 100 UNITS/ML VIAL SQ SCH (09:00)
[2016-10-01] MEDS ORDERED: FLUoxetine HCL 10 MG CAP PO SCH (09:00)
[2016-10-01] MEDS: MEGESTROL ACETATE SUSP 400 MG/10 ML CUP PO SCH (09:00)
--- NOTE | 2016-10-01 09:19 | PD.CONS ---
HPI History of Present Illness This is a 55 year old female who was sent to ER from [facility] for Anemia with a HGB of 6.9. Patient with history of chronic anemia, obesity, diabetes, end-stage renal disease on dialysis, poorly healing open ulcers on buttock area. Patient is currently being treated for C-diff with Flagyl. This started 3 weeks ago, she is not able to quantify the number of Stools a day. GI have been consulted for anemia and heme (+) stools. Patient has chronic anemia and was evaluated [place] [address] Andres for this. She denies any abdominal pain, black or tarry stools, hematochezia, hematemesis. She has lost 160 ibs since November of 2015 due to starting dialysis and dieting. EGD/colonoscopy on (26/01)----> gastritis post lap band, duodenitis, small lipoma in the right colon , internal/external hemorrhoids, bx was benign , she was recommended a 10 yr f/ u. She denies alcohol use or NSAIDs. (Arturo Valentin) PFSH Past Medical History Arthritis Anxiety HLD CHF Diabetes HTN ESRD Hypothyroidism Cardiac stent Morbid obesity Past Surgical History Abdominal surgery AV fistula Cholecystectomy Lap band tonsillectomy Cardiac stent EGD/colonoscopy (Arturo Valentin) Coded Allergies: Biaxin (Verified Allergy, Severe, swelling of face, 05/10/16) Iron (Verified Adverse Reaction, Severe, Constipation, 05/10/16) Morphine (Verified Adverse Reaction, Severe, 06/11/16) renal insufficiency. *MDRO Multi-Drug Resistant Organism (Verified Adverse Reaction, Unknown, VRE, MRSA, MDR-Pseudomonas, 09/02/16) VRE (abdominal wound) - 07/09/16 MDR-Pseudomonas (abdominal wound) - 07/09/16 MRSA (abdomen wound) - 08/28/16 Medications Current Medications Medications (Trade) Dose Ordered Sig/Soren Route Start Time Stop Time Status Last Admin (NS 250 ml Inj) 250 ml @ 15 mls/hr ONCE ONCE IV 09/30/16 20:00 10/01/16 12:39 09/30/16 22:57 (NS Flush) 2 ml UNSCH PRN IV FLUSH 09/30/16 20:45 (NS Flush) 2 ml BID IV FLUSH 09/30/16 21:00 09/30/16 22:58 (Zofran Inj) 4 mg Q6H PRN IVP 09/30/16 20:45 (Narcan Inj) 0.4 mg UNSCH PRN IV 09/30/16 20:45 (Luciana-Colace) 1 tab BID PO 09/30/16 21:00 (Milk Of Magnesia Liq) 30 ml Q12H PRN PO 09/30/16 20:45 (Senokot) 17.2 mg Q12H PRN PO 09/30/16 20:45 (Dulcolax Supp) 10 mg DAILY PRN RECTAL 09/30/16 20:45 (Lactulose Liq) 30 ml DAILY PRN PO 09/30/16 20:45 (Xanax) 0.25 mg Q6H PRN PO 09/30/16 20:45 10/01/16 01:26 (Ecotrin Ec) 81 mg DAILY PO 10/01/16 09:00 (Lipitor) 40 mg HS PO 09/30/16 21:00 10/01/16 01:27 (Rocaltrol) 0.5 mcg DAILY PO 10/01/16 09:00 (Vitamin D3) 10,000 units BID PO 09/30/16 21:00 10/01/16 01:31 (Sensipar) 30 mg DAILY PO 10/01/16 09:00 (Catapres) 0.1 mg Q6HR PO 10/01/16 00:00 10/01/16 07:01 (Benadryl) 25 mg Q6H PRN PO 09/30/16 20:45 (Adrenalin (1:1000) Inj) 0.3 mg ONCE PRN IV PUSH 09/30/16 20:45 10/03/16 20:44 (PROzac) 10 mg DAILY PO 10/01/16 09:00 (Neurontin) 100 mg BID PO 09/30/16 21:00 10/01/16 01:26 (Gelfoam 12 Mm/7 Mm Top) 1 foam UNSCH PRN EXTERNAL 09/30/16 20:45 (SoluCORTEF INJ) 250 mg ONCE PRN IV PUSH 09/30/16 20:45 10/03/16 20:44 (Levemir Inj) 10 units DAILY SQ 10/01/16 09:00 (Antivert) 25 mg TID PRN PO 09/30/16 20:45 (Megace Liq) 400 mg DAILY PO 10/01/16 09:00 (Zofran Odt) 4 mg Q6HR PRN SL 09/30/16 20:45 (Luciana-Colace) 1 tab BID PO 09/30/16 21:00 (Renvela) 1,600 mg TID PO 10/01/16 09:00 (Dakin'S 0.25% Soln) 500 ml DAILY TOPICAL 10/01/16 09:00 (Flanagan Thyroid) 60 mg DAILY PO 10/01/16 09:00 (Vitamin B12) 1,000 mcg DAILY PO 10/01/16 09:00 (Roxicodone) 15 mg Q6H PRN PO 10/01/16 02:00 10/01/16 02:25 Family History No family hx of colon cancer Social History No alcohol No smoking No illicit drug use (Arturo Valentin) Review of Systems Constitutional: COMPLAINS OF: Fatigue, Weight loss Endocrine: DENIES: Polyuria Eyes: DENIES: Double Vision Ears, nose, mouth, throat: DENIES: Hoarseness Respiratory: DENIES: Sputum production, Shortness of breath Cardiovascular: DENIES: Syncope Gastrointestinal: COMPLAINS OF: Diarrhea, DENIES: Abdominal pain, Black stools , Bloody stools, Constipation, Nausea, Vomiting, Difficulty Swallowing, Anorexia , Swelling of Abdomen, Heartburn, Hematemesis Genitourinary: DENIES: Hematuria Musculoskeletal: DENIES: Neck pain Integumentary: DENIES: Jaundice Hematologic/lymphatic: DENIES: Lymphadenopathy Neurologic: COMPLAINS OF: Abnormal gait Psychiatric: DENIES: Anxiety (Arturo Valentin) GI Exam Vitals I&O Vital Signs Date Time Temp Pulse Resp B/P Pulse Ox O2 Delivery O2 Flow Rate FiO2 10/01/16 08:30 100.0 99 16 94/44 99 10/01/16 05:12 98.1 95 19 101/58 97 10/01/16 03:59 99.2 97 19 119/58 97 10/01/16 03:56 99.2 97 19 119/58 96 10/01/16 03:55 18 10/01/16 03:37 98.9 99 18 98/53 97 10/01/16 00:00 97.8 102 20 121/47 100 09/30/16 23:02 98.5 99 20 119/69 98 Room Air 09/30/16 22:42 98.3 94 20 116/58 97 Room Air 09/30/16 18:31 98.5 106 12 90/51 95 Room Air I/O 09/30/16 09/30/16 09/30/16 10/01/16 10/01/16 10/01/16 07:00 15:00 23:00 07:00 15:00 23:00 # Voids 1 # Bowel Movements 1 Laboratory Test 09/30/16 09/30/16 09/30/16 10/01/16 19:00 19:53 20:20 03:31 White Blood Count 25.1 TH/MM3 Red Blood Count 2.39 MIL/MM3 Hemoglobin 6.7 GM/DL Hematocrit 21.4 % Mean Corpuscular Volume 89.7 FL Mean Corpuscular Hemoglobin 28.0 PG Mean Corpuscular Hemoglobin 31.2 % Concent Red Cell Distribution Width 17.9 % Platelet Count 380 TH/MM3 Mean Platelet Volume 7.9 FL Neutrophils (%) (Auto) 81.3 % Lymphocytes (%) (Auto) 5.1 % Monocytes (%) (Auto) 3.3 % Eosinophils (%) (Auto) 9.9 % Basophils (%) (Auto) 0.4 % Neutrophils # (Auto) 20.4 TH/MM3 Lymphocytes # (Auto) 1.3 TH/MM3 Monocytes # (Auto) 0.8 TH/MM3 Eosinophils # (Auto) 2.5 TH/MM3 Basophils # (Auto) 0.1 TH/MM3 CBC Comment AUTO DIFF Differential Total Cells 100 Counted Neutrophils % (Manual) 70 % Band Neutrophils % 11 % Lymphocytes % 5 % Monocytes % 1 % Eosinophils % 13 % Neutrophils # (Manual) 20.3 TH/MM3 Differential Comment FINAL DIFF MANUAL Platelet Estimate NORMAL Platelet Morphology Comment NORMAL Prothrombin Time 13.6 SEC Prothromb Time International 1.2 RATIO Ratio Activated Partial 38.2 SEC Thromboplast Time Sodium Level 133 MEQ/L 136 MEQ/L Potassium Level 3.5 MEQ/L 3.7 MEQ/L Chloride Level 99 MEQ/L 102 MEQ/L Carbon Dioxide Level 23.0 MEQ/L 20.7 MEQ/L Anion Gap 11 MEQ/L 13 MEQ/L Blood Urea Nitrogen 48 MG/DL 43 MG/DL Creatinine 4.76 MG/DL 4.82 MG/DL Estimat Glomerular Filtration 9 ML/MIN 9 ML/MIN Rate Random Glucose 180 MG/DL 130 MG/DL Calcium Level 7.8 MG/DL 7.6 MG/DL Total Bilirubin 0.3 MG/DL 0.3 MG/DL Aspartate Amino Transf 14 U/L 14 U/L (AST/SGOT) Alanine Aminotransferase 6 U/L LESS THAN 6 U/L (ALT/SGPT) Alkaline Phosphatase 114 U/L 98 U/L Total Protein 6.2 GM/DL 5.6 GM/DL Albumin 1.3 GM/DL 1.2 GM/DL Blood Type O POSITIVE Antibody Screen NEGATIVE Crossmatch Leukocyte-Reduced Red Blood Cells Blood Bank Comment Lactic Acid Level 2.5 mmol/L 1.7 mmol/L Test 10/01/16 05:16 White Blood Count 20.9 TH/MM3 Red Blood Count 2.52 MIL/MM3 Hemoglobin 6.7 GM/DL Hematocrit 21.1 % Mean Corpuscular Volume 83.8 FL Mean Corpuscular Hemoglobin 26.7 PG Mean Corpuscular Hemoglobin 31.9 % Concent Red Cell Distribution Width 20.0 % Platelet Count 271 TH/MM3 Mean Platelet Volume 7.4 FL Neutrophils (%) (Auto) 76.8 % Lymphocytes (%) (Auto) 7.8 % Monocytes (%) (Auto) 4.4 % Eosinophils (%) (Auto) 10.7 % Basophils (%) (Auto) 0.3 % Neutrophils # (Auto) 16.1 TH/MM3 Lymphocytes # (Auto) 1.6 TH/MM3 Monocytes # (Auto) 0.9 TH/MM3 Eosinophils # (Auto) 2.2 TH/MM3 Basophils # (Auto) 0.1 TH/MM3 CBC Comment AUTO DIFF Differential Total Cells 100 Counted Neutrophils % (Manual) 61 % Band Neutrophils % 11 % Lymphocytes % 10 % Monocytes % 3 % Eosinophils % 15 % Neutrophils # (Manual) 15.0 TH/MM3 Nucleated Red Blood Cells 1 /100 WBC Differential Comment FINAL DIFF MANUAL Platelet Estimate NORMAL Platelet Morphology Comment NORMAL Date/Time Procedure Status Source Growth 09/30/16 20:20 Aerobic Blood Culture Received Blood Peripheral Pending 09/30/16 20:20 Anaerobic Blood Culture Received Blood Peripheral Pending Physical Examination HEENT: normocephalic; atraumatic; no jaundice. NECK: Neck is supple, no JVD, no lymphadenopathy. CHEST: Chest is clear to auscultation and percussion. CARDIAC: Regular rate and rhythm with no murmur gallop or rubs. ABDOMEN: Soft, obese, nondistended, nontender; no hepatosplenomegaly; bowel sounds are present in all four quadrants. EXTREMITIES: Gen. edema SKIN: ulcers to buttock area, not able to assess EMT DISPATCHER: No focal deficits; alert and oriented times three. (Arturo Valentin) Assessment and Plan Plan - Acute on chronic anemia/ heme (+) stools- This is a 55 year old female who was sent to ER from [facility] for Anemia with a HGB of 6.9. Patient has received 2 unit of blood, repeat labs pending. Patient with history of chronic anemia, obesity, diabetes, end-stage renal disease on dialysis, Patient is currently being treated for C-diff with Flagyl.She denies any abdominal pain, black or tarry stools, hematochezia, hematemesis. EGD/colonoscopy on (02/25/11)- ---> gastritis post lap band, duodenitis, small lipoma in the right colon, internal/external hemorrhoids, bx was benign , she was recommended a 10 yr f/u. She denies alcohol use or NSAIDs. - Anemia- no obvious bleeding, most likely multifactorial, this could be anemia of chronic Dz, and possible GI bleed - C-diff X 3 weeks- has been on Flagyl - ESRD on dialysis - poorly healing open ulcers on buttock area. Wound nurse consulted - Leukocytosis- Blood cx pending, febrile T max 100.0 - Weight loss- She has lost 160 ibs since November of 2015 due to starting dialysis and dieting. - Morbid obesity, DM, per attending Plan: - TRENT - EGD in the am - Obtain consents - NPO mn - I have discussed colonoscopy with patient but due to difficulties doing the prep, un-ability to ambulate, chronic open wounds on the buttock area We decided to hold off on this for now - Add Dificid 200 mg bid - Monitor HH - Transfuse as needed - Supportive care - Patient seen and examined by Dr. Waldrop and myself and this note is written on his behalf. (Arturo Valentin) Physician Comments Patient seen and examined Agree with above Continue with current supportive care Monitor labs Plan for an EGD tomorrow We'll add deficid for continued C. difficile therapy (Raheem Waldrop MD) Arturo Valentin Oct 01, 2016 09:19 Raheem Waldrop MD Oct 01, 2016 23:42
[2016-10-01] MEDS: CYANOCOBALAMIN 1,000 MCG TAB PO SCH (09:52)
[2016-10-01] MEDS: THYROID 60 MG TAB PO SCH (09:52)
[2016-10-01] MEDS: ASPIRIN EC 81 MG TABEC PO SCH (09:52)
[2016-10-01] MEDS: CALCITRIOL 0.25 MCG CAP PO SCH (09:54)
[2016-10-01] MEDS: SEVELAMER CARBONATE 800 MG TAB PO SCH ×3 (09:55→17:49)
[2016-10-01] MEDS: SODIUM CHLORIDE 0.9% FLUSH 10 ML FLUSH IV FLUSH SCH ×2 (09:56→20:34)
--- NOTE | 2016-10-01 10:11 | HHI.HP ---
History of Present Illness Service Family Medicine Primary Care Physician Aline Velarde MD Admission Diagnosis anemia, leukocytosis, C. difficile Diagnoses: (1) End stage kidney disease (2) Symptomatic anemia (3) Pressure ulcer of coccygeal region (4) Diabetes mellitus due to underlying condition with chronic kidney disease on chronic dialysis History of Present Illness This is a 55-year-old female with history of end-stage renal disease on dialysis TRS who is sent here for treatment of low hemoglobin. The patient reports she had lab work 2 days ago at dialysis and today she was informed that her symptom and was 6.9 and she was sent here by Dr. Jimenez her propagation worker. She has had issues with anemia in the past. She denies any abdominal pain, black or tarry stools, hematochezia, hematemesis. She is currently being treated at [facility]. She is being treated for C. difficile with Flagyl reportedly. She has been having diarrhea for 3 weeks. She endorses some fatigue. She reports chronic wounds on her buttocks which are being cared for at [facility]. She has no other complaints. Review of Systems Constitutional: COMPLAINS OF: Fatigue Respiratory: DENIES: Cough, Snoring, Shortness of breath Cardiovascular: DENIES: Chest pain, Palpitations Gastrointestinal: COMPLAINS OF: Diarrhea, DENIES: Black stools, Bloody stools Neurologic: DENIES: Headache Psychiatric: COMPLAINS OF: Depression Past Family Social History Allergies: Coded Allergies: Biaxin (Verified Allergy, Severe, swelling of face, 05/10/16) Iron (Verified Adverse Reaction, Severe, Constipation, 05/10/16) Morphine (Verified Adverse Reaction, Severe, 06/11/16) renal insufficiency. *MDRO Multi-Drug Resistant Organism (Verified Adverse Reaction, Unknown, VRE, MRSA, MDR-Pseudomonas, 09/02/16) VRE (abdominal wound) - 07/09/16 MDR-Pseudomonas (abdominal wound) - 07/09/16 MRSA (abdomen wound) - 08/28/16 Past Medical History Arthritis anxiety/depression HLD CHF Insulin dependent diabetes ESRD HTN Hypothyroidism Past Surgical History Abdominal surgery AV fistula Cholecystectomy Lap band tonsillectomy Cardiac stent EGD/colonoscopy Active Ordered Medications Current Medications Medications (Trade) Dose Ordered Sig/Soren Route Start Time Stop Time Status Last Admin (NS Flush) 2 ml UNSCH PRN IV FLUSH 09/30/16 20:45 (NS Flush) 2 ml BID IV FLUSH 09/30/16 21:00 10/01/16 09:56 (Zofran Inj) 4 mg Q6H PRN IVP 09/30/16 20:45 (Narcan Inj) 0.4 mg UNSCH PRN IV 09/30/16 20:45 (Luciana-Colace) 1 tab BID PO 09/30/16 21:00 (Milk Of Magnesia Liq) 30 ml Q12H PRN PO 09/30/16 20:45 (Senokot) 17.2 mg Q12H PRN PO 09/30/16 20:45 (Dulcolax Supp) 10 mg DAILY PRN RECTAL 09/30/16 20:45 (Lactulose Liq) 30 ml DAILY PRN PO 09/30/16 20:45 (Xanax) 0.25 mg Q6H PRN PO 09/30/16 20:45 10/01/16 01:26 (Ecotrin Ec) 81 mg DAILY PO 10/01/16 09:00 10/01/16 09:52 (Lipitor) 40 mg HS PO 09/30/16 21:00 10/01/16 01:27 (Rocaltrol) 0.5 mcg DAILY PO 10/01/16 09:00 10/01/16 09:54 (Vitamin D3) 10,000 units BID PO 09/30/16 21:00 10/01/16 09:53 (Sensipar) 30 mg DAILY PO 10/01/16 09:00 (Catapres) 0.1 mg Q6HR PO 10/01/16 00:00 10/01/16 07:01 (Benadryl) 25 mg Q6H PRN PO 09/30/16 20:45 (Adrenalin (1:1000) Inj) 0.3 mg ONCE PRN IV PUSH 09/30/16 20:45 10/03/16 20:44 (PROzac) 10 mg DAILY PO 10/01/16 09:00 10/01/16 09:53 (Neurontin) 100 mg BID PO 09/30/16 21:00 10/01/16 09:53 (Gelfoam 12 Mm/7 Mm Top) 1 foam UNSCH PRN EXTERNAL 09/30/16 20:45 (SoluCORTEF INJ) 250 mg ONCE PRN IV PUSH 09/30/16 20:45 10/03/16 20:44 (Levemir Inj) 10 units DAILY SQ 10/01/16 09:00 10/01/16 09:00 (Antivert) 25 mg TID PRN PO 09/30/16 20:45 (Megace Liq) 400 mg DAILY PO 10/01/16 09:00 (Zofran Odt) 4 mg Q6HR PRN SL 09/30/16 20:45 (Renvela) 1,600 mg TID PO 10/01/16 09:00 10/01/16 12:47 (Dakin'S 0.25% Soln) 500 ml DAILY TOPICAL 10/01/16 09:00 10/01/16 09:00 (Man[place]ola Thyroid) 60 mg DAILY PO 10/01/16 09:00 10/01/16 09:52 (Vitamin B12) 1,000 mcg DAILY PO 10/01/16 09:00 10/01/16 09:52 (Roxicodone) 15 mg Q6H PRN PO 10/01/16 02:00 10/01/16 09:51 Fidaxomicin 200 mg 200 mg BID PO 10/01/16 21:00 10/11/16 20:59 (NS 1000 ml Inj) 1,000 ml @ 0 mls/hr Q0M PRN IV 10/01/16 15:17 Heparin Sodium (Porcine) 8000 units 8,000 units UNSCH PRN IVF 10/01/16 15:30 Sodium Chloride 1,000 ml @ 200 mls/hr Q5H PRN IV 10/01/16 15:17 (NS 1000 ml Inj) 1,000 ml @ 0 mls/hr Q0M PRN IV 10/01/16 15:17 (Mannitol Inj) 12.5 gm UNSCH PRN IV 10/01/16 15:30 (Albumin 25% Inj) 25 gm UNSCH PRN IV 10/01/16 15:30 (NS Flush) 5 ml UNSCH PRN IV FLUSH 10/01/16 15:30 (Heparin Inj) UNSCH PRN .XX 10/01/16 15:30 (Gentamicin (Dialysis) Inj) 20 mg UNSCH PRN IV 10/01/16 15:30 (Zofran Inj) 4 mg UNSCH PRN IV 10/01/16 15:30 (Tylenol) 650 mg UNSCH PRN PO 10/01/16 15:30 (Benadryl) 25 mg UNSCH PRN PO 10/01/16 15:30 (Nitrostat Sl) 0.4 mg UNSCH PRN SL 10/01/16 15:30 (Catapres) 0.1 mg UNSCH PRN PO 10/01/16 15:30 (Epogen Inj) 10,000 units UNSCH PRN IV 10/01/16 15:30 (Gelfoam 12 Mm/7 Mm Top) 1 foam UNSCH PRN TOP 10/01/16 15:30 Social History Lives at [facility] Denies tobacco or ETOH use Physical Exam Vital Signs Vital Signs Date Time Temp Pulse Resp B/P Pulse Ox O2 Delivery O2 Flow Rate FiO2 10/01/16 08:30 100.0 99 16 94/44 99 10/01/16 05:12 98.1 95 19 101/58 97 10/01/16 03:59 99.2 97 19 119/58 97 10/01/16 03:56 99.2 97 19 119/58 96 10/01/16 03:55 18 10/01/16 03:37 98.9 99 18 98/53 97 10/01/16 00:00 97.8 102 20 121/47 100 09/30/16 23:02 98.5 99 20 119/69 98 Room Air 09/30/16 22:42 98.3 94 20 116/58 97 Room Air 09/30/16 18:31 98.5 106 12 90/51 95 Room Air Physical Exam GENERAL: This is a chronically ill-appearing female who is in no acute distress SKIN: Warm and dry. Clean Bandages noted on the buttocks and panus HEAD: Atraumatic. Normocephalic. EYES: Pupils equal and round. No scleral icterus. No injection or drainage. ENT: No nasal bleeding or discharge. Mucous membranes pink and moist. NECK: Trachea midline. No JVD. CARDIOVASCULAR: Regular rate and rhythm. No murmur appreciated. RESPIRATORY: No accessory muscle use. Clear to auscultation. Breath sounds equal bilaterally. GASTROINTESTINAL: Abdomen soft, non-tender, nondistended. MUSCULOSKELETAL: No obvious deformities. NEUROLOGICAL: Awake and alert. Normal speech. PSYCHIATRIC: Appropriate mood and affect; insight and judgment normal. Laboratory Laboratory Tests Test 09/30/16 09/30/16 09/30/16 10/01/16 19:00 19:53 20:20 03:31 White Blood Count 25.1 Red Blood Count 2.39 Hemoglobin 6.7 Hematocrit 21.4 Mean Corpuscular Volume 89.7 Mean Corpuscular Hemoglobin 28.0 Mean Corpuscular Hemoglobin 31.2 Concent Red Cell Distribution Width 17.9 Platelet Count 380 Mean Platelet Volume 7.9 Neutrophils (%) (Auto) 81.3 Lymphocytes (%) (Auto) 5.1 Monocytes (%) (Auto) 3.3 Eosinophils (%) (Auto) 9.9 Basophils (%) (Auto) 0.4 Neutrophils # (Auto) 20.4 Lymphocytes # (Auto) 1.3 Monocytes # (Auto) 0.8 Eosinophils # (Auto) 2.5 Basophils # (Auto) 0.1 CBC Comment AUTO DIFF Differential Total Cells 100 Counted Neutrophils % (Manual) 70 Band Neutrophils % 11 Lymphocytes % 5 Monocytes % 1 Eosinophils % 13 Neutrophils # (Manual) 20.3 Differential Comment FINAL DIFF MANUAL Platelet Estimate NORMAL Platelet Morphology Comment NORMAL Prothrombin Time 13.6 Prothromb Time International 1.2 Ratio Activated Partial 38.2 Thromboplast Time Sodium Level 133 136 Potassium Level 3.5 3.7 Chloride Level 99 102 Carbon Dioxide Level 23.0 20.7 Anion Gap 11 13 Blood Urea Nitrogen 48 43 Creatinine 4.76 4.82 Estimat Glomerular Filtration 9 9 Rate Random Glucose 180 130 Calcium Level 7.8 7.6 Total Bilirubin 0.3 0.3 Aspartate Amino Transf 14 14 (AST/SGOT) Alanine Aminotransferase 6 LESS THAN 6 (ALT/SGPT) Alkaline Phosphatase 114 98 Total Protein 6.2 5.6 Albumin 1.3 1.2 Blood Type O POSITIVE Antibody Screen NEGATIVE Crossmatch Leukocyte-Reduced Red Blood Cells Blood Bank Comment Lactic Acid Level 2.5 1.7 Test 10/01/16 05:16 White Blood Count 20.9 Red Blood Count 2.52 Hemoglobin 6.7 Hematocrit 21.1 Mean Corpuscular Volume 83.8 Mean Corpuscular Hemoglobin 26.7 Mean Corpuscular Hemoglobin 31.9 Concent Red Cell Distribution Width 20.0 Platelet Count 271 Mean Platelet Volume 7.4 Neutrophils (%) (Auto) 76.8 Lymphocytes (%) (Auto) 7.8 Monocytes (%) (Auto) 4.4 Eosinophils (%) (Auto) 10.7 Basophils (%) (Auto) 0.3 Neutrophils # (Auto) 16.1 Lymphocytes # (Auto) 1.6 Monocytes # (Auto) 0.9 Eosinophils # (Auto) 2.2 Basophils # (Auto) 0.1 CBC Comment AUTO DIFF Differential Total Cells 100 Counted Neutrophils % (Manual) 61 Band Neutrophils % 11 Lymphocytes % 10 Monocytes % 3 Eosinophils % 15 Neutrophils # (Manual) 15.0 Nucleated Red Blood Cells 1 Differential Comment FINAL DIFF MANUAL Platelet Estimate NORMAL Platelet Morphology Comment NORMAL Date/Time Procedure Status Source Growth 09/30/16 20:20 Aerobic Blood Culture Received Blood Peripheral Pending 09/30/16 20:20 Anaerobic Blood Culture Received Blood Peripheral Pending Result Diagram: 10/01/16 0516 10/01/16 0331 Assessment and Plan Problem List: (1) Symptomatic anemia Status: Acute Plan: Transfused PRBC recheck HGB 7.5. GI consulted no obvious signs of bleeding (2) End stage kidney disease Status: Chronic Plan: Data Management Specialist consulted. 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 On insulin. (4) Pressure ulcer of coccygeal region Status: Acute Plan: Wound care consulted for recommendations (5) HTN (hypertension) Status: Acute Plan: Blood pressure at 101/49 and consistently low. Will put parameters on clonidine to hold. (6) Anxiety Status: Acute Plan: Patient with anxiety and depression. Continue prozac and PRN xanax. (7) C. difficile diarrhea Status: Acute Plan: ID consulted and Dificid ordered. Assessment and Plan Assessment and plan discussed with Dr. Freitas Discussed Condition With Nursing Discharge Planning [facility] Physician Attestation I and the SUPERVISOR EXTRUSION have both examined this patient and reviewed this note and I agree with these findings and plan of care. Betty Hood. [facility] Oct 01, 2016 10:10
[2016-10-01 11:45] LABS: AUTOMATED NEUTROPHIL # 13.6 TH/MM3 (1.8-7.7); BASOPHIL # 0.1 TH/MM3 (0-0.2); BASOPHIL % 0.6 % (0.0-2.0); EOSINOPHIL # 1.9 TH/MM3 (0-0.4); EOSINOPHIL % 10.9 % (0.0-4.0); HEMATOCRIT 22.7 % (35.0-46.0); HEMO FLAGS DIFF FINAL; LYMPHOCYTE # 1.4 TH/MM3 (1.0-4.8); MEAN CELL VOLUME 83.9 FL (80.0-100.0); MEAN CORPUSCULAR HEMOGLOBIN 27.5 PG (27.0-34.0); MEAN CORPUSCULAR HGB CONC 32.8 % (32.0-36.0); MONO % 3.6 % (0.0-8.0); NEUT % 76.9 % (16.0-70.0); PLATELET COUNT 260 TH/MM3 (150-450); RED BLOOD COUNT 2.71 MIL/MM3 (4.00-5.30); RED CELL DISTRIBUTION WIDTH 20.4 % (11.6-17.2); WHITE BLOOD COUNT 17.6 TH/MM3 (4.0-11.0)
[2016-10-01] MEDS ORDERED: SODIUM CHLOR 0.9% 1000 ML INJ 1,000 ML IV PRN ×3 (15:17)
[2016-10-01] MEDS ORDERED: ALBUMIN HUMAN 25% 25 GM/100 ML BAGP IV PRN (15:30)
[2016-10-01] MEDS ORDERED: SODIUM CHLORIDE 0.9% FLUSH 10 ML FLUSH IV FLUSH PRN (15:30)
[2016-10-01] MEDS ORDERED: MANNITOL 12.5 GM/50 ML VIAL IV PRN (15:30)
[2016-10-01] MEDS ORDERED: cloNIDine HCL 0.1 MG TAB PO PRN (15:30)
[2016-10-01] MEDS ORDERED: NITROGLYCERIN 0.4 MG SL 25 TABS/BTL SL PRN (15:30)
[2016-10-01] MEDS ORDERED: GENTAMICIN SULFATE (DIALYSIS USE ONLY) 20 MG/2 ML VIAL IV PRN (15:30)
[2016-10-01] MEDS ORDERED: HEPARIN SODIUM - IV 10,000 UNITS/10 ML VIAL IVF PRN (15:30)
[2016-10-01] MEDS ORDERED: GELATIN 12 MM/7 MM FOAM TOP PRN (15:30)
[2016-10-01] MEDS ORDERED: ONDANSETRON HCL 4 MG/2 ML VIAL IV PRN (15:30)
[2016-10-01] MEDS ORDERED: ACETAMINOPHEN 325 MG TAB PO PRN (15:30)
[2016-10-01] MEDS ORDERED: EPOETIN ALFA 10,000 UNITS/ML VIAL IV PRN (15:30)
[2016-10-01] MEDS ORDERED: diphenhydrAMINE HCL 25 MG CAP PO PRN (15:30)
[2016-10-01] MEDS ORDERED: HEPARIN SODIUM - IV 10,000 UNITS/10 ML VIAL PRN (15:30)
[2016-10-01] MEDS ORDERED: DEXTROSE 50% IN WATER 50 ML VIAL(D50) IV PRN (16:30)
[2016-10-01] MEDS ORDERED: GLUCAGON 1 MG/ML VIAL OTHER PRN (16:30)
--- NOTE | 2016-10-01 17:39 | PD.ID.CON ---
History of Present Illness Service ID Consult Requested By Dr Freitas Reason for Consult leukocytosis , wounds C.diff Primary Care Physician Aline Velarde MD Diagnoses: History of Present Illness Pt seen in dyalisis Unit Known to me 55 yo female chronic wounds pt is co liquid diarrhea, about 3 BMs/day WBC elevated into 17-20 K; she is having a fever She states her wounds are healing Review of Systems Except as stated in HPI: all other systems reviewed are Neg Past Family Social History Allergies: Coded Allergies: Biaxin (Verified Allergy, Severe, swelling of face, 05/10/16) Iron (Verified Adverse Reaction, Severe, Constipation, 05/10/16) Morphine (Verified Adverse Reaction, Severe, 06/11/16) renal insufficiency. *MDRO Multi-Drug Resistant Organism (Verified Adverse Reaction, Unknown, VRE, MRSA, MDR-Pseudomonas, 09/02/16) VRE (abdominal wound) - 07/09/16 MDR-Pseudomonas (abdominal wound) - 07/09/16 MRSA (abdomen wound) - 08/28/16 Active Ordered Medications Medications where reviewed in EMR Antibiotics Include: dificid Physical Exam Vital Signs Vital Signs Date Time Temp Pulse Resp B/P Pulse Ox O2 Delivery O2 Flow Rate FiO2 10/01/16 12:13 101/49 10/01/16 12:12 99.2 89 19 84/45 96 10/01/16 08:30 100.0 99 16 94/44 99 10/01/16 05:12 98.1 95 19 101/58 97 10/01/16 03:59 99.2 97 19 119/58 97 10/01/16 03:56 99.2 97 19 119/58 96 10/01/16 03:55 18 10/01/16 03:37 98.9 99 18 98/53 97 10/01/16 00:00 97.8 102 20 121/47 100 09/30/16 23:02 98.5 99 20 119/69 98 Room Air 09/30/16 22:42 98.3 94 20 116/58 97 Room Air 09/30/16 18:31 98.5 106 12 90/51 95 Room Air Physical Exam CONSTITUTIONAL/GENERAL: This is amorbidly obese female patient, in no apparent distress. TUBES/LINES/DRAINS: SKIN: No jaundice, rashes, or lesions. Ecchymoses on upper extremities. No wounds seen anteriorly. Skin temperature appropriate. Not diaphoretic. Skin exam is limited 2/2 current HD HEAD: Atraumatic. Normocephalic. EYES: Pupils equal and round and reactive. No injection or drainage. Fundi not examined. ENT: Hearing grossly normal. Nose without bleeding or purulent drainage. Throat without visible erythema, exudates, masses, or lesions. NECK: Trachea midline. Supple, nontender. No palpable thyroid enlargement or nodularity. CARDIOVASCULAR: Regular rate and rhythm without murmurs, gallops, or rubs. No JVD. Peripheral pulses symmetric. RESPIRATORY/CHEST: Symmetric, unlabored respirations. Clear to auscultation. Breath sounds equal bilaterally. No wheezes, rales, or rhonchi. GASTROINTESTINAL: Abdomen soft, non-tender, nondistended. No hepato-splenomegaly , or palpable masses. No guarding. Bowel sounds present. Incontinent of liquid foul smelling stool, very large amount GENITOURINARY: Without palpable bladder distension. MUSCULOSKELETAL: Extremities without clubbing, cyanosis, or edema. No mottling or clubbing. Hyperpigmentation, chronic BLE LYMPHATICS: No palpable cervical or supraclavicular adenopathy. NEUROLOGICAL: Lethargic, arousable Motor and sensory grossly within normal limits. Follows commands. Clear speech. Moves all extremities. PSYCHIATRIC: calm and cooperative Laboratory Laboratory Tests Test 09/30/16 09/30/16 09/30/16 10/01/16 19:00 19:53 20:20 03:31 White Blood Count 25.1 Red Blood Count 2.39 Hemoglobin 6.7 Hematocrit 21.4 Mean Corpuscular Volume 89.7 Mean Corpuscular Hemoglobin 28.0 Mean Corpuscular Hemoglobin 31.2 Concent Red Cell Distribution Width 17.9 Platelet Count 380 Mean Platelet Volume 7.9 Neutrophils (%) (Auto) 81.3 Lymphocytes (%) (Auto) 5.1 Monocytes (%) (Auto) 3.3 Eosinophils (%) (Auto) 9.9 Basophils (%) (Auto) 0.4 Neutrophils # (Auto) 20.4 Lymphocytes # (Auto) 1.3 Monocytes # (Auto) 0.8 Eosinophils # (Auto) 2.5 Basophils # (Auto) 0.1 CBC Comment AUTO DIFF Differential Total Cells 100 Counted Neutrophils % (Manual) 70 Band Neutrophils % 11 Lymphocytes % 5 Monocytes % 1 Eosinophils % 13 Neutrophils # (Manual) 20.3 Differential Comment FINAL DIFF MANUAL Platelet Estimate NORMAL Platelet Morphology Comment NORMAL Prothrombin Time 13.6 Prothromb Time International 1.2 Ratio Activated Partial 38.2 Thromboplast Time Sodium Level 133 136 Potassium Level 3.5 3.7 Chloride Level 99 102 Carbon Dioxide Level 23.0 20.7 Anion Gap 11 13 Blood Urea Nitrogen 48 43 Creatinine 4.76 4.82 Estimat Glomerular Filtration 9 9 Rate Random Glucose 180 130 Calcium Level 7.8 7.6 Total Bilirubin 0.3 0.3 Aspartate Amino Transf 14 14 (AST/SGOT) Alanine Aminotransferase 6 LESS THAN 6 (ALT/SGPT) Alkaline Phosphatase 114 98 Total Protein 6.2 5.6 Albumin 1.3 1.2 Blood Type O POSITIVE Antibody Screen NEGATIVE Crossmatch Leukocyte-Reduced Red Blood Cells Blood Bank Comment Lactic Acid Level 2.5 1.7 Test 10/01/16 10/01/16 10/01/16 05:16 11:01 16:07 White Blood Count 20.9 17.6 Red Blood Count 2.52 2.71 Hemoglobin 6.7 7.5 Hematocrit 21.1 22.7 Mean Corpuscular Volume 83.8 83.9 Mean Corpuscular Hemoglobin 26.7 27.5 Mean Corpuscular Hemoglobin 31.9 32.8 Concent Red Cell Distribution Width 20.0 20.4 Platelet Count 271 260 Mean Platelet Volume 7.4 7.9 Neutrophils (%) (Auto) 76.8 76.9 Lymphocytes (%) (Auto) 7.8 8.0 Monocytes (%) (Auto) 4.4 3.6 Eosinophils (%) (Auto) 10.7 10.9 Basophils (%) (Auto) 0.3 0.6 Neutrophils # (Auto) 16.1 13.6 Lymphocytes # (Auto) 1.6 1.4 Monocytes # (Auto) 0.9 0.6 Eosinophils # (Auto) 2.2 1.9 Basophils # (Auto) 0.1 0.1 CBC Comment AUTO DIFF DIFF FINAL Differential Total Cells 100 Counted Neutrophils % (Manual) 61 Band Neutrophils % 11 Lymphocytes % 10 Monocytes % 3 Eosinophils % 15 Neutrophils # (Manual) 15.0 Nucleated Red Blood Cells 1 Differential Comment FINAL DIFF MANUAL Platelet Estimate NORMAL Platelet Morphology Comment NORMAL Blood Type O POSITIVE Crossmatch Leukocyte-Reduced Red Blood Cells Blood Bank Comment Date/Time Procedure Status Source Growth 09/30/16 20:20 Aerobic Blood Culture - Preliminary Resulted Blood Peripheral NO GROWTH IN 1 DAY 09/30/16 20:20 Anaerobic Blood Culture - Preliminary Resulted Blood Peripheral NO GROWTH IN 1 DAY Result Diagram: 10/01/16 1101 10/01/16 0331 Assessment and Plan Assessment and Plan Leukocytosis, fever, diarrhea, recent abx exposure ; likely C.diff Chronic wounds - will have to examine tomorrow when out of HD unt ESRD, HD cont dificid add vanco oral Bel Adorno MD Oct 01, 2016 17:39
[2016-10-01] MEDS: VANCOMYCIN 500 MG VIAL (FOR ORAL USE ONLY) PO SCH ×2 (18:44→23:52)
--- NOTE | 2016-10-01 19:11 | MB ---
cc: ANJUM MIKE MD DATE OF CONSULTATION 10/01/2016 REASON FOR CONSULTATION End-stage renal disease on hemodialysis for management. HISTORY OF PRESENT ILLNESS This is a 55-year-old female known to me from before with past medical history of end-stage renal disease on hemodialysis, chronic anemia with recurrent blood transfusion, multiple abdominal wounds with debridement, history of anxiety, depression, arthritis, diabetes mellitus, morbid obesity, hypothyroidism was sent to the hospital because of severe anemia. I was called to see the patient for the management of hemodialysis. She has been on hemodialysis Friday, and Friday. The patient has low hemoglobin and it was done as outpatient and the hemoglobin was 6.9 and she was supposed to go to the infusion center for blood transfusion and I was in the process of arranging it yesterday when I was told last night that she was transferred to the hospital from the nursing facility. The patient has an allergic reaction to iron and she is not able to get the iron. Her iron has been low and she was seen by the hematology in the past. She cannot tolerate iron because of severe constipation and she has been refusing. She has been getting Epogen with the dialysis but her hemoglobin is not increasing much and off and on she is getting the blood transfusion. She has multiple abdominal wounds. She denies any apparent blood loss. There is no history of melena or blood in the stool. The patient seen during dialysis and she denies any shortness of breath. No chest pain. No palpitation. PAST MEDICAL HISTORY 1. End-stage renal disease on hemodialysis. 2. Diabetes mellitus. 3. Chronic anemia. 4. Anxiety, depression. 5. Arthritis. 6. Hypothyroidism. 7. Multiple abdominal wounds. PAST SURGICAL HISTORY 1. Multiple abdominal wounds surgery with debridement. 2. AV fistula surgery. 3. Cholecystectomy. 4. Lap band. 5. Cardiac catheterization with stent. 6. Endoscopy. 7. Colonoscopy. REVIEW OF SYSTEMS The patient has generalized weakness, feeling tired. Denies any chest pain. No shortness breath. She has mild abdominal pain and pain in the thigh area where she has the wound. No history of melena or hematochezia. SOCIAL HISTORY The patient currently lives in a nursing facility. There is no history of smoking or alcoholism. FAMILY HISTORY Noncontributory. ALLERGIES MORPHINE, IRON AND BIAXIN. MEDICATIONS Currently she is on: 1. Luciana-Colace 1 tablet b.i.d. 2. Vitamin D3 10,000 units b.i.d. 3. Neurontin 100 mg b.i.d. 4. Dificid 200 mg b.i.d. 5. Aspirin 81 mg daily. 6. Calcitriol 0.5 mcg daily. 7. Sensipar 30 mg daily. 8. Prozac 10 mg once a day. 9. Levemir 10 units subcu daily. 10. Megace 400 mg once a day. 11. [place] Thyroid 60 mg daily. 12. Vitamin B12 1000 mcg daily. 13. Lipitor 40 mg q.h.s. 14. Clonidine 0.1 mg q. 6-hour. 15. Insulin aspart sliding scale. 16. Renvela 1.6 grams t.i.d. 17. Zofran as needed. 18. Dulcolax as needed. PHYSICAL EXAMINATION GENERAL: The patient is awake, she is on dialysis. Not in acute distress. VITAL SIGNS: Her last blood pressure 101/49, temperature 99.2 with a temperature max of 100. HEENT: Pupils equally reactive to light. Nonicteric sclerae. Conjunctivae pale. NECK: Supple. JVD is not elevated. LUNGS: The patient has bilateral decreased air entry with scattered wheezing. HEART: S1-S2. Regular rhythm. ABDOMEN: Distended. Soft. Lax. There is mild diffuse tenderness. There is no rebound, rigidity. Bowel sounds positive. EXTREMITIES: She has bilateral lymphedema in the legs. LABORATORY DATA Investigations, WBC count is 17.6 with hemoglobin of 7.5, platelet count 260, neutrophils 76.9. sodium 136, potassium 3.7, chloride 102, bicarb 20.7, BUN 43, creatinine 4.82. Calcium 7.6, AST is 14, ALT 6. Albumin is 1.2, INR is 1.2. Blood cultures pending. IMAGING STUDIES There is no recent imaging studies done. ASSESSMENT/PLAN 1. Severe anemia. 2. C-difficile colitis. 3. End-stage renal disease on hemodialysis. 4. Diabetes mellitus. 5. Multiple abdominal wounds. 6. Hypoalbuminemia. The patient had transfusion of 2 units and she will be given another unit now with the dialysis. Her blood pressure is on the lower side. We will not remove too much fluid. She will be getting Epogen during the dialysis. Epogen is not working mainly because her iron saturation is low and she has been refusing to get the iron. I discussed with her again and she is not willing to take any iron at present. She is getting antibiotic for C-difficile and GI has been following her. I will put her on Nepro for low albumin level. Thank you for the consultation and I will follow the patient while she is in the hospital. Anjum Mike MD AQJ/[id number] /5:06 PM /6:50 PM
[2016-10-01] MEDS: INSULIN ASPART SUPPLEMENTAL SCALE SQ SCH (20:34)
[2016-10-01 21:54] LABS: C. DIFF EPI 027 PRESUMPTIVE POSITIVE (NEGATIVE)
[2016-10-01 22:14] LABS: C. DIFF TOXIN PCR POSITIVE (NEGATIVE)
[2016-10-01] MEDS: FIDAXOMICIN 200 MG TAB PO SCH (22:15)
[2016-10-02] VITALS (11 sets, daily range): BP systolic 88–137; BP diastolic 44–80; PULSE 81–112; RESP 0–21; TEMP 97.9–100.3; O2SAT 92–100
[2016-10-02] MEDS: cloNIDine HCL 0.1 MG TAB PO SCH ×2 (04:59→12:05)
[2016-10-02] MEDS: INSULIN ASPART SUPPLEMENTAL SCALE SQ SCH ×4 (05:01→21:00)
[2016-10-02] MEDS: VANCOMYCIN 500 MG VIAL (FOR ORAL USE ONLY) PO SCH ×3 (05:02→18:43)
[2016-10-02 08:51] LABS: BASOPHIL % 0.3 % (0.0-2.0); EOSINOPHIL # 1.9 TH/MM3 (0-0.4); EOSINOPHIL % 11.7 % (0.0-4.0); HEMATOCRIT 24.4 % (35.0-46.0); HEMO FLAGS DIFF FINAL; LYMPH % 10.9 % (9.0-44.0); LYMPHOCYTE # 1.8 TH/MM3 (1.0-4.8); MEAN CELL VOLUME 84.7 FL (80.0-100.0); MEAN CORPUSCULAR HGB CONC 31.8 % (32.0-36.0); MONO % 4.9 % (0.0-8.0); NEUT % 72.2 % (16.0-70.0); PLATELET COUNT 260 TH/MM3 (150-450); RED BLOOD COUNT 2.88 MIL/MM3 (4.00-5.30); RED CELL DISTRIBUTION WIDTH 19.4 % (11.6-17.2); WHITE BLOOD COUNT 16.6 TH/MM3 (4.0-11.0)
[2016-10-02] MEDS: INSULIN DETEMIR 100 UNITS/ML VIAL SQ SCH (09:19)
[2016-10-02 09:22] LABS: ANION GAP 9 MEQ/L (5-15); BICARBONATE 25.7 MEQ/L (21.0-32.0); BLOOD UREA NITROGEN 30 MG/DL (7-18); CHLORIDE 101 MEQ/L (98-107); GLOMERULAR FILTRATION RATE 12 ML/MIN (>89); MAGNESIUM 1.8 MG/DL (1.5-2.5); POTASSIUM 3.2 MEQ/L (3.5-5.1); SODIUM (NA) 136 MEQ/L (136-145)
[2016-10-02] MEDS: SEVELAMER CARBONATE 800 MG TAB PO SCH ×3 (09:28→21:15)
[2016-10-02] MEDS: GABAPENTIN 100 MG CAP PO SCH ×2 (09:29→22:01)
[2016-10-02] MEDS: ASPIRIN EC 81 MG TABEC PO SCH (09:29)
[2016-10-02] MEDS: CHOLECALCIFEROL (VIT D3) 5000 UNIT CAP PO SCH ×2 (09:29→22:01)
[2016-10-02] MEDS: CYANOCOBALAMIN 1,000 MCG TAB PO SCH (09:29)
[2016-10-02] MEDS: MEGESTROL ACETATE SUSP 400 MG/10 ML CUP PO SCH (09:29)
[2016-10-02] MEDS: CINACALCET HYDROCHLORIDE 30 MG TAB PO SCH (09:30)
[2016-10-02] MEDS: FIDAXOMICIN 200 MG TAB PO SCH ×2 (09:30→22:01)
[2016-10-02] MEDS: CALCITRIOL 0.25 MCG CAP PO SCH (09:30)
[2016-10-02] MEDS: THYROID 60 MG TAB PO SCH (09:31)
[2016-10-02] MEDS: DOCUSATE SODIUM 50 MG/SENNA 8.6 MG TAB PO SCH ×2 (09:35→21:00)
[2016-10-02] MEDS: SODIUM CHLORIDE 0.9% FLUSH 10 ML FLUSH IV FLUSH SCH ×2 (09:36→22:00)
[2016-10-02] MEDS ORDERED: POTASSIUM CHLORIDE 20 MEQ CONTROLLED RELEASE TAB PO ONE (09:45)
[2016-10-02 09:49] LABS: FERRITIN 1358 NG/ML (8-252); FREE T3 LESS THAN 0.50 PG/ML (2.18-3.98); FREE T4 0.88 NG/DL (0.76-1.46); TRANSFERRIN IRON PROFILE 66 MG/DL (200-360)
--- NOTE | 2016-10-02 09:52 | HHI.PR ---
Subjective Remarks Patient emotional during visit. Crying out at times about her need to get better. Denies any CP or SOB. Continue to have frequent loose stools. Objective Vital Signs Date Time Temp Pulse Resp B/P Pulse Ox O2 Delivery O2 Flow Rate FiO2 10/02/16 08:36 93 21 10/02/16 08:00 100.3 92 18 91/50 93 88/53 10/02/16 04:00 99.4 112 21 94/51 93 10/02/16 04:00 Room Air 10/02/16 00:50 100.0 96 18 110/44 95 10/02/16 00:00 Room Air 10/01/16 20:00 99.0 98 18 121/94 96 10/01/16 20:00 Room Air 10/01/16 12:13 101/49 10/01/16 12:12 99.2 89 19 84/45 96 I/O 10/01/16 10/01/16 10/01/16 10/02/16 10/02/16 10/02/16 06:59 14:59 22:59 06:59 14:59 22:59 Intake Total 242 ml Output Total 3000 ml Balance -2758 ml Intake Oral 240 ml IV Total 2 ml Hemodialysis 3000 ml # Voids 1 0 0 # Bowel Movements 1 1 1 0 1 Result Diagram: 10/02/16 0810/02/16 08 Objective Remarks GENERAL: Obese. Emotional crying off and on during visit. SKIN: Warm and dry. Multiple wounds present in Panus and coccyx region HEAD: Normocephalic. EYES: No scleral icterus. No injection or drainage. NECK: Supple, trachea midline. No JVD or lymphadenopathy. CARDIOVASCULAR: Regular rate and rhythm without murmurs, gallops, or rubs. RESPIRATORY: Breath sounds equal bilaterally. No accessory muscle use. GASTROINTESTINAL: Abdomen soft, non-tender, nondistended. MUSCULOSKELETAL: No cyanosis, or edema. BACK: Nontender without obvious deformity. No CVA tenderness. Medications and IVs Current Medications Medications (Trade) Dose Ordered Sig/Soren Route Start Time Stop Time Status Last Admin (NS Flush) 2 ml UNSCH PRN IV FLUSH 09/30/16 20:45 (NS Flush) 2 ml BID IV FLUSH 09/30/16 21:00 10/02/16 09:36 (Zofran Inj) 4 mg Q6H PRN IVP 09/30/16 20:45 (Narcan Inj) 0.4 mg UNSCH PRN IV 09/30/16 20:45 (Luciana-Colace) 1 tab BID PO 09/30/16 21:00 (Milk Of Magnesia Liq) 30 ml Q12H PRN PO 09/30/16 20:45 (Senokot) 17.2 mg Q12H PRN PO 09/30/16 20:45 (Dulcolax Supp) 10 mg DAILY PRN RECTAL 09/30/16 20:45 (Lactulose Liq) 30 ml DAILY PRN PO 09/30/16 20:45 (Xanax) 0.25 mg Q6H PRN PO 09/30/16 20:45 10/01/16 20:36 (Ecotrin Ec) 81 mg DAILY PO 10/01/16 09:00 10/02/16 09:29 (Lipitor) 40 mg HS PO 09/30/16 21:00 10/01/16 20:35 (Rocaltrol) 0.5 mcg DAILY PO 10/01/16 09:00 10/02/16 09:30 (Vitamin D3) 10,000 units BID PO 09/30/16 21:00 10/02/16 09:29 (Sensipar) 30 mg DAILY PO 10/01/16 09:00 (Catapres) 0.1 mg Q6HR PO 10/01/16 00:00 10/01/16 07:01 (Benadryl) 25 mg Q6H PRN PO 09/30/16 20:45 (Adrenalin (1:1000) Inj) 0.3 mg ONCE PRN IV PUSH 09/30/16 20:45 10/03/16 20:44 (Neurontin) 100 mg BID PO 09/30/16 21:00 10/02/16 09:29 (Gelfoam 12 Mm/7 Mm Top) 1 foam UNSCH PRN EXTERNAL 09/30/16 20:45 (SoluCORTEF INJ) 250 mg ONCE PRN IV PUSH 09/30/16 20:45 10/03/16 20:44 (Levemir Inj) 10 units DAILY SQ 10/01/16 09:00 10/02/16 09:19 (Antivert) 25 mg TID PRN PO 09/30/16 20:45 (Megace Liq) 400 mg DAILY PO 10/01/16 09:00 (Zofran Odt) 4 mg Q6HR PRN SL 09/30/16 20:45 (Renvela) 1,600 mg TID PO 10/01/16 09:00 10/01/16 12:47 (Dakin'S 0.25% Soln) 500 ml DAILY TOPICAL 10/01/16 09:00 10/01/16 09:00 ([place]der Thyroid) 60 mg DAILY PO 10/01/16 09:00 10/02/16 09:31 (Vitamin B12) 1,000 mcg DAILY PO 10/01/16 09:00 10/02/16 09:29 (Roxicodone) 15 mg Q6H PRN PO 10/01/16 02:00 10/02/16 09:34 Fidaxomicin 200 mg 200 mg BID PO 10/01/16 21:00 10/11/16 20:59 10/02/16 09:30 (NS 1000 ml Inj) 1,000 ml @ 0 mls/hr Q0M PRN IV 10/01/16 15:17 Heparin Sodium (Porcine) 8000 units 8,000 units UNSCH PRN IVF 10/01/16 15:30 Sodium Chloride 1,000 ml @ 200 mls/hr Q5H PRN IV 10/01/16 15:17 (NS 1000 ml Inj) 1,000 ml @ 0 mls/hr Q0M PRN IV 10/01/16 15:17 (Mannitol Inj) 12.5 gm UNSCH PRN IV 10/01/16 15:30 (Albumin 25% Inj) 25 gm UNSCH PRN IV 10/01/16 15:30 (NS Flush) 5 ml UNSCH PRN IV FLUSH 10/01/16 15:30 (Heparin Inj) UNSCH PRN .XX 10/01/16 15:30 (Gentamicin (Dialysis) Inj) 20 mg UNSCH PRN IV 10/01/16 15:30 (Zofran Inj) 4 mg UNSCH PRN IV 10/01/16 15:30 (Tylenol) 650 mg UNSCH PRN PO 10/01/16 15:30 (Benadryl) 25 mg UNSCH PRN PO 10/01/16 15:30 (Nitrostat Sl) 0.4 mg UNSCH PRN SL 10/01/16 15:30 (Catapres) 0.1 mg UNSCH PRN PO 10/01/16 15:30 (Epogen Inj) 10,000 units UNSCH PRN IV 10/01/16 15:30 (Gelfoam 12 Mm/7 Mm Top) 1 foam UNSCH PRN TOP 10/01/16 15:30 (D50w (Vial) Inj) 50 ml UNSCH PRN IV 10/01/16 16:30 (Glucagon Inj) 1 mg UNSCH PRN OTHER 10/01/16 16:30 (VANCOMYCIN for oral use only) 500 mg Q6HR PO 10/01/16 18:00 10/02/16 11:53 Fluoxetine HCl 20 mg 20 mg DAILY PO 10/03/16 09:00 (Vancomycin Inj/ NS 500 ml Inj) 515 ml @ 250 mls/hr ONCE ONCE IV 10/02/16 11:30 10/02/16 13:33 Assessment and Plan Problem List: (1) Symptomatic anemia Status: Acute Plan: Transfused 3 units of PRBC initially. HBG 7.8 today GI consulted no obvious signs of bleeding. EGD planned for today (2) End stage kidney disease Status: Chronic Plan: Retail Management Keyholder consulted. 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 On insulin. (4) Pressure ulcer of coccygeal region Status: Acute Plan: Wound care consulted for recommendations (5) HTN (hypertension) Status: Acute Plan: Blood pressure at 91/50 . Will discontinue B/P medication (6) Anxiety Status: Acute Plan: Patient with anxiety and depression. Prozac increased and PRN xanax. (7) C. difficile diarrhea Status: Acute Plan: ID consulted On oral vancomycin and Dificid. (8) Bacteremia Status: Acute Plan: Blood cultures with + cocci. Vancomycin ordered. (9) Hypokalemia Status: Acute Plan: potassium 3.2 replacement added. Assessment and Plan Assessment and plan discussed with Dr. Freitas Discussed Condition With Nursing Discharge Planning SNF Physician Attestation I and the DYE [employer]SE HAND have both examined this patient and reviewed this note and I agree with these findings and plan of care. Lucas Freitas. Betty Rose Oct 02, 2016 09:52
[2016-10-02] MEDS ORDERED: VANCOMYCIN INJ 1,000 MG in SODIUM CHLOR 0.9% 250 ML INJ 250 ML IV SCH (11:15)
[2016-10-02] MEDS ORDERED: VANCOMYCIN INJ 1,500 MG in SODIUM CHLORID 0.9% 500 ML INJ 500 ML IV ONE (11:30)
[2016-10-02] MEDS ORDERED: *RESP: ALBUTEROL 2.5 MG/3 ML NEB (PRN) PERIprocedural Use ONLY NEB ONE (13:34)
[2016-10-02] MEDS ORDERED: METOPROLOL TARTRATE 5 MG/5 ML VIAL ONE (13:36)
[2016-10-02] MEDS ORDERED: DO NOT ADM ANY ANTICOAGULANT DRUGS PRN (13:38)
[2016-10-02] MEDS ORDERED: ACETAMINOPHEN 1000 MG/100 ML VIAL IV ONE (13:43)
--- NOTE | 2016-10-02 13:53 | PD.PROCEDR ---
GI Procedure REFERRING PHYSICIAN Dr. Freitas PROCEDURE PERFORMED EGD INDICATION FOR PROCEDURE Anemia, guaiac positive stools PROCEDURE: The procedure, risks and benefits were discussed with Ms. Foley and informed consent was obtained. Anesthesia sedated her with Diprivan. She was placed in the left lateral decubitus position. EGD: The Pentax videoscope was introduced through the oropharynx and advanced to the second portion of the duodenum under direct visualization. Retroflexion was performed in the stomach. FINDINGS: The esophagus this was normal The stomach appeared to be unremarkable and within normal limits there was evidence of possible surgical intervention in the past and the patient is known to have had a lap band I think at this point it probably has slipped up to the GE junction almost The duodenum this was normal ESTIMATED BLOOD LOSS: None SPECIMENS REMOVED: None COMPLICATIONS: None IMPRESSION: Unremarkable EGD PLAN: Continue with supportive care Consider colonoscopy when more stable Raheem Waldrop MD Oct 02, 2016 13:53
[2016-10-02] MEDS ORDERED: PHENYLEPHRINE HCL 10 MG/ML VIAL ONE (14:58)
[2016-10-02] MEDS ORDERED: PROPOFOL 200 MG/20 ML AMP IV ONE (15:05)
[2016-10-02] MEDS ORDERED: SODIUM CHLORIDE 0.9% FLUSH 10 ML FLUSH IV FLUSH PRN (15:30)
[2016-10-02] MEDS ORDERED: CHLORHEXIDINE GLUCONATE 2 % 1 PACK (2 CLOTHS) TOP PRN (15:30)
[2016-10-02] MEDS ORDERED: MISCELLANEOUS NURSING INFORMATION XX SCH (15:30)
[2016-10-02] MEDS ORDERED: *HYDROmorphone PF 1 MG VIAL PERIprocedural Use ONLY ONE ×2 (15:32→16:54)
[2016-10-02] MEDS ORDERED: DEXTROSE 50% IN WATER 50 ML VIAL(D50) IV PRN (15:45)
[2016-10-02] MEDS ORDERED: GLUCAGON 1 MG/ML VIAL OTHER PRN (15:45)
[2016-10-02] MEDS ORDERED: LACTULOSE SYRUP 20 GM/30 ML CUP PO PRN (16:00)
[2016-10-02] MEDS ORDERED: BISACODYL 10 MG SUPP RECTAL PRN (16:00)
[2016-10-02] MEDS ORDERED: RESP: ALBUTEROL 2.5 MG/IPRATROPIUM 0.5 MG NEB (PRN) INH (16:00)
--- NOTE | 2016-10-02 16:09 | HHI.HP ---
[facility] Service Critical Care Medicine Primary Care Physician Aline Velarde MD Admission Diagnosis anemia, leukocytosis, history of C. difficile Diagnosis: Travel History International Travel<30 Days: No Contact w/Intl Traveler <30 Da: No Traveled to Known Affected Are: No History of Present Illness This is a 55-year-old female with history of end-stage renal disease on dialysis TRS who presented for treatment of low hemoglobin. The patient was noted to have symptomatic anemia with a hemoglobin of 6.9 and she was referred to the hospital by by Dr. Jimenez her venue manager. She denies any abdominal pain, black or tarry stools, hematochezia, hematemesis. She is currently being treated at [facility]. She is being treated for C. difficile . She has been having diarrhea for 3 weeks. She endorses some fatigue. She reports chronic wounds on her buttocks which are being cared for at [facility]. During her workup GI was consulted the patient was scheduled for an EGD today, for anemia. Prior to entering the OR the patient was noted to be initially tachycardic with a heart rate in the 130s and received a liter bolus of LR. Noted to have hypoxemia O2 sat was 93%, and precipitous drop with a systolic blood pressure of 70/30. Critical care medicine was consulted in PACU by Dr. Pacheco for management. Low-dose phenylephrine IV was initiated. A central line and arterial line were placed by anesthesiologist, Dr. Pacheco. Upon my initial assessment in PACU the patient was noted to be semi-recombinant when placed supine patient's blood pressure was 68/34-> 99/39 low-dose phenylephrine was initiated as central line in a line will be placed by Dr. Pacheco. The patient was alert and oriented and complaining of chronic back pain. History PFSH Past Medical History Arthritis: Yes Asthma: No Autoimmune Disease: No Blood Disorders: No Anxiety: Yes Heart Rhythm Problems: No Cancer: No Cardiac Catheterization: Yes High Cholesterol: Yes Chemotherapy: No Chest Pain: Yes Congestive Heart Failure: Yes COPD: Yes Diabetes: Yes Dialysis: Yes (,,S) Diminished Hearing: No Endocrine: Yes Genitourinary: Yes Hepatitis: No Hiatal Hernia: No Heparin Induced Thrombocytopen: No Hypertension: Yes Immune Disorder: No Implanted Vascular Access Dvce: Yes Musculoskeletal: Yes Neurologic: No Psychiatric: No Reproductive: No Respiratory: No Radiation Therapy: No Renal Failure: Yes Sickle Cell Disease: No Sleep Apnea: Yes Thyroid Disease: Yes Triglycerides - High: Yes Menopausal: Yes : 1 Para: 1 Past Surgical History Abdominal Surgery: Yes (ABD WOUND sx for friction) AICD: No Arteriovenous Shunt: Yes (AV FISTULA LEFT , VAS CATH RIGHT CHEST) Body Medical Devices: av fistula Cardiac Surgery: No Section: Yes (X 1) Cholecystectomy: Yes (1996) Coronary Stent: Yes (x1 June 2012) Ear Surgery: No Endocrine Surgery: No Eye Surgery: No Genitourinary Surgery: No Joint Replacement: No Neurologic Surgery: No Oral Surgery: Yes (T&A) Pacemaker: No Thoracic Surgery: No Tonsillectomy: Yes Other Surgery: Yes (LAP BAND, VAS CATH) Social History Alcohol Use: No Tobacco Use: No Substance Use: No Allergies-Medications Allergies-Medications (Allergen,Severity, Reaction): Coded Allergies: Biaxin (Verified Allergy, Severe, swelling of face, 05/10/16) Iron (Verified Adverse Reaction, Severe, Constipation, 05/10/16) Morphine (Verified Adverse Reaction, Severe, 06/11/16) renal insufficiency. *MDRO Multi-Drug Resistant Organism (Verified Adverse Reaction, Unknown, VRE, MRSA, MDR-Pseudomonas, 09/02/16) VRE (abdominal wound) - 07/09/16 MDR-Pseudomonas (abdominal wound) - 07/09/16 MRSA (abdomen wound) - 08/28/16 Reported Meds & Prescriptions Reported Meds & Active Scripts Active Vancomycin Inj (Vancomycin HCl) 1,000 Mg Inj 1,000 Mg IV WITH DIALYSIS 10 Days Epinephrine Inj 1 Mg/Ml Inj 0.3 Mg SQ ONCE PRN Give with any signs of respiratory distress. Epinephrine Inj 1 Mg/Ml Inj 0.3 Mg IV PUSH ONCE PRN Solu-Cortef Inj (Hydrocortisone Sodium Succinate) 250 Mg Inj 250 Mg IV PUSH ONCE PRN Give over 30-60 seconds. Gelfoam Sponge (Gelatin) 12-7 Mm Pad 1 Foam TOP UNSCH PRN Dakins Solution Half Strength Topical (Sodium Hypochlorite) 0.2-0.25 % Soln 500 Ml TOPICAL DAILY [place] Thyroid (Thyroid) 60 Mg Tab 60 Mg PO DAILY Meclizine (Meclizine HCl) 25 Mg Tab 25 Mg PO TID PRN Megestrol Liq (Megestrol Acetate) 40 Mg/Ml Susp 400 Mg PO DAILY Renvela (Sevelamer Carbonate) 800 Mg Tab 1,600 Mg PO TID Senna Plus 8.6-50 mg (Sennosides-Docusate Sodium) 1 Tab Tab 1 Tab PO BID Sensipar (Cinacalcet) 30 Mg Tab 30 Mg PO DAILY Reported Zofran Odt (Ondansetron Odt) 4 Mg Tab 4 Mg SL Q6HR PRN Atorvastatin (Atorvastatin Calcium) 40 Mg Tab 40 Mg PO HS Diphenhydramine (Diphenhydramine HCl) 25 Mg Cap 25 Mg PO Q6H PRN Clonidine (Clonidine HCl) 0.1 Mg Tab 0.1 Mg PO Q6HR Xanax (Alprazolam) 0.25 Mg Tab 0.25 Mg PO Q6H PRN Novolin R Relion (Insulin Regular (Human)) 100 Unit/Ml Inj Vitamin D3 (Cholecalciferol) 10,000 Unit Tab 10,000 Units PO BID Levemir Inj (Insulin Detemir) 1,000 unit/ 10 ML Vial 5 Units SQ HS Hold for BS less than 100mg/dl Levemir Inj (Insulin Detemir) 1,000 unit/ 10 ML Vial 10 Units SQ DAILY Do not mix with any other Insulin. Prozac (Fluoxetine HCl) 10 Mg Cap 10 Mg PO DAILY B-12 (Methylcobalamin) 1,000 Mcg Sub 1,000 Mcg PO DAILY Gabapentin 100 Mg Cap 100 Mg PO BID Aspirin 81 (Aspirin) 81 Mg Tabdr 81 Mg PO DAILY Calcitriol 0.5 Mcg Cap 0.5 Mcg PO DAILY ROS Review of Systems Except as stated in HPI: all other systems reviewed are Neg Review of Systems ROS Limitations: Clinical Condition Past Family Social History Allergies: Coded Allergies: Biaxin (Verified Allergy, Severe, swelling of face, 05/10/16) Iron (Verified Adverse Reaction, Severe, Constipation, 05/10/16) Morphine (Verified Adverse Reaction, Severe, 06/11/16) renal insufficiency. *MDRO Multi-Drug Resistant Organism (Verified Adverse Reaction, Unknown, VRE, MRSA, MDR-Pseudomonas, 09/02/16) VRE (abdominal wound) - 07/09/16 MDR-Pseudomonas (abdominal wound) - 07/09/16 MRSA (abdomen wound) - 6/21/17 Physical Exam Vital Signs Vital Signs Date Time Temp Pulse Resp B/P Pulse Ox O2 Delivery O2 Flow Rate FiO2 10/02/16 13:38 92 Simple Mask 8.00 10/02/16 11:27 Room Air 10/02/16 08:36 93 21 10/02/16 08:00 100.3 92 18 91/50 93 88/53 10/02/16 04:00 99.4 112 21 94/51 93 10/02/16 04:00 Room Air 10/02/16 00:50 100.0 96 18 110/44 95 10/02/16 00:00 Room Air 10/01/16 20:00 99.0 98 18 121/94 96 10/01/16 20:00 Room Air Physical Exam GENERAL: Morbidly obese female, lying supine in bed in moderate distress complaining of chronic back pain. SKIN: Warm and dry. HEAD: Atraumatic. Normocephalic. EYES: Pupils equal and round. No scleral icterus. No injection or drainage. ENT: No nasal bleeding or discharge. Mucous membranes pink and moist. Uvula midline. Mallampati class III. Currently on partial nonrebreather NECK: Trachea midline. No JVD. CARDIOVASCULAR: Normal rate, regular rhythm. RESPIRATORY: No accessory muscle use. Clear to auscultation. Breath sounds equal bilaterally. GASTROINTESTINAL: Abdomen soft, non-tender, nondistended. No guarding. MUSCULOSKELETAL: Extremities without clubbing, cyanosis, noticed cellulitis, erythema , scaling . Left arm AV fistula NEUROLOGICAL: Awake and alert. RASS 0. No gross focal/sensory deficits. Follows commands in all 4 extremities. Laboratory Laboratory Tests Test 10/01/16 10/01/16 10/02/16 16:07 19:10 08:04 Blood Type O POSITIVE Crossmatch Leukocyte-Reduced Red Blood Cells Blood Bank Comment Stool C. difficile Toxin (PCR) POSITIVE Stl C. difficile Toxin PRESUMPTIVE Epiderm 027 POSITIVE White Blood Count 16.6 Red Blood Count 2.88 Hemoglobin 7.8 Hematocrit 24.4 Mean Corpuscular Volume 84.7 Mean Corpuscular Hemoglobin 27.0 Mean Corpuscular Hemoglobin 31.8 Concent Red Cell Distribution Width 19.4 Platelet Count 260 Mean Platelet Volume 7.7 Neutrophils (%) (Auto) 72.2 Lymphocytes (%) (Auto) 10.9 Monocytes (%) (Auto) 4.9 Eosinophils (%) (Auto) 11.7 Basophils (%) (Auto) 0.3 Neutrophils # (Auto) 12.0 Lymphocytes # (Auto) 1.8 Monocytes # (Auto) 0.8 Eosinophils # (Auto) 1.9 Basophils # (Auto) 0.0 CBC Comment DIFF FINAL Differential Comment Sodium Level 136 Potassium Level 3.2 Chloride Level 101 Carbon Dioxide Level 25.7 Anion Gap 9 Blood Urea Nitrogen 30 Creatinine 3.80 Estimat Glomerular Filtration 12 Rate Random Glucose 74 Calcium Level 7.5 Phosphorus Level 3.1 Magnesium Level 1.8 Iron Level 23 Total Iron Binding Capacity 92 Percent Iron Saturation 24.9 Ferritin 1358 Vitamin B12 Level GREATER THAN 2000 Folate 11.1 Free Thyroxine 0.88 Free Triiodothyronine (T3) LESS THAN 0.50 pg/dL Thyroid Stimulating Hormone 13.000 3rd Gen Date/Time Procedure Status Source Growth 09/30/16 20:20 Aerobic Blood Culture - Preliminary Resulted Blood Peripheral Staph Sp Coagulase Negative 09/30/16 20:20 Anaerobic Blood Culture - Preliminary Resulted Blood Peripheral NO GROWTH IN 2 DAYS Result Diagram: 10/02/16 0804 10/02/16 0804 Imaging Chest x-ray post central line placement pending Septic Shock Reassessment Heart: Irregular Lungs: Clear Skin: Warm Peripheral Pulses: Bounding Right Radial Bounding Left Radial Assessment and Plan Assessment and Plan Assessment Hypotension most likely secondary to septic shock, and acute blood loss anemia Acute GI bleed Acute on chronic anemia End-stage renal disease Diabetes mellitus Super morbid obesity Chronic pain syndrome Neurologic: - Neurochecks per ICU protocol -Ofirmev 1 g every 6 hours 24 hours -Tylenol 650 mg every 6 hours when necessary for temperature greater than 100.5 - Respiratory: -Bronchodilators every 4 hours when necessary for wheezing -Ventimask, FiO2 of 50% -Follow-up postprocedure chest x-ray Cardiovascular: -Initiate phenylephrine -Maintain MAP greater than 65mmHg -Stat 12-lead EKG Renal: -Nephrology following -Hemodialysis per nephrology -- Strict I/Os FEN/GI: -Monitor BMP -Maintain NPO status -GI following-Dr. Waldrop Heme/ID: - Obtain CBC, coags -C. difficile positive- on Flagyl and vancomycin -Obtain stat CBC -ID following Dr. Adorno -Transfuse for hemoglobin less than 8 Endocrine: Glucose monitoring per ICU protocol low dose regimen every 6 hours -- SSI Prophylaxis: GI Prophylaxis Protonix IV DVT Prophylaxis -- SCDs No pharmacological anticoagulation in the setting of possible GI bleed Lines: Peripheral IV. Central line, arterial line per Dr. Osorio, Dispo: This patient remains critically ill with one or more organ systems which are or may become a threat to life. I have spent in excess of 30 minutes discontinuously in the care and management of this patient. This time is exclusive of procedures, and includes, but is not limited to, evaluation of the patient, review of the medical record, discussions with family, consultants, nursing staff, or respiratory therapy, and documentation in the medical record. Code Status Full Discussed Condition With Dr. Pacheco, MOTION STUDY ANALYST, and patient Lashae Ny MD Oct 02, 2016 16:09
[2016-10-02] MEDS ORDERED: LACTATED RINGER'S 1000 ML INJ 500 ML IV ONE (17:00)
[2016-10-02] MEDS ORDERED: METOPROLOL TARTRATE 5 MG/5 ML VIAL IV PUSH ONE (17:00)
[2016-10-02] MEDS ORDERED: TERBUTALINE INJ 1 MG/ML AMP SQ PRN (17:00)
--- NOTE | 2016-10-02 17:18 | RADRPT ---
EXAM DATE/TIME: 10/02/2016 15:49 [place] COMPARISON: CHEST SINGLE AP, June 08, 2016, 19:03. INDICATIONS : Central line placement. MEDICAL HISTORY : Hypertension. Diabetes mellitus type II. SURGICAL HISTORY : None. ENCOUNTER: Initial ACUITY: 1 day PAIN SCORE: Non-responsive. LOCATION: Bilateral chest FINDINGS: Stable right IJ tunneled dialysis catheter. Interval placement of right IJ central venous catheter wi th tip in the atriocaval junction. Lungs are hypoaerated which accentuates interstitial markings. The re is however slight increased interstitial prominence and mild left neural lungs are clear space dis ease. Cardiomediastinal contours are stable. Negative exam is unchanged. CONCLUSION: 1. Right IJ central line in good position without evidence for pneumothorax. 2. Cardiomegaly with mild positive fluid balance. 3. Minimal airspace disease in the left lower lung zone, likely atelectasis. Madhav Jacobs MD on October 02, 2016 at 17:15 Board Certified Radiologist. This report was verified electronically.
[2016-10-02] MEDS ORDERED: ACETAMINOPHEN 325 MG TAB PO PRN (18:00)
[2016-10-02] MEDS: PHENYLEPHRINE 40 MG/D5W 496 ML ADMIX IV SCH ×2 (18:16)
[2016-10-02] MEDS ORDERED: SODIUM CHLORID 0.9% 500 ML INJ 500 ML ONE (18:22)
[2016-10-02] MEDS: metroNIDAZOLE 500 MG INJ 100 ML IV SCH (18:44)
[2016-10-02 18:54] LABS: INTERNATIONAL NORMALIZED RATIO 1.4 RATIO; PROTHROMBIN TIME - PATIENT 15.4 SEC (9.8-11.6)
--- NOTE | 2016-10-02 19:37 | HHI.NPPN ---
Subjective General Problems: Anemia Renal Failure: End Stage Renal Disease History of Present Illness 55-year-old female known to me from before with past medical history of end-stage renal disease on hemodialysis, chronic anemia with recurrent blood transfusion, multiple abdominal wounds with debridement, history of anxiety, depression, arthritis, diabetes mellitus, morbid obesity, hypothyroidism was sent to the hospital because of severe anemia. I was called to see the patient for the management of hemodialysis. She has been on hemodialysis Friday, and Friday. Additional Remarks Patient is alert, transferred to IM due to hypotension. Review of Systems General Constitutional: Fatigue Respiratory Lungs: SOB Cardiovascular Cardiac: GRIFFIN Gastrointestinal Gastrointestinal: Abdominal Pain, Nausea & Vomiting Objective Data Data 10/01/16 10/02/16 19:00 07:00 Intake Total 242 ml Output Total 3000 ml Balance -3000 ml 242 ml Intake Oral 240 ml IV Total 2 ml Hemodialysis 3000 ml # Voids 0 # Bowel Movements 2 0 Vital Signs Date Time Temp Pulse Resp B/P Pulse Ox O2 Delivery O2 Flow Rate FiO2 10/02/16 17:00 98.9 94 18 102/64 98 Nasal Cannula 4 Aerosol Mask 10/02/16 16:30 94 18 102/64 100 Nasal Cannula 4 Aerosol Mask 10/02/16 16:15 99 18 100/49 100 Nasal Cannula 4 Aerosol Mask 10/02/16 16:00 98.8 101 18 102/56 98 Nasal Cannula 4 Aerosol Mask 10/02/16 15:45 102 18 102/56 92 Nasal Cannula 4 Aerosol Mask 10/02/16 15:45 102 18 102/56 92 Nasal Cannula 2 Aerosol Mask 10/02/16 15:30 104 18 113/59 98 Aerosol Mask 60 113/57 10/02/16 15:15 104 10/02/16 15:08 107 18 98/48 98 Aerosol Mask 60 10/02/16 15:00 106 18 66/37 96 Aerosol Mask 60 10/02/16 14:56 107 18 73/37 89 Aerosol Mask 60 10/02/16 14:45 109 18 82/34 100 Aerosol Mask 60 10/02/16 14:30 94 22 84/45 95 Aerosol Mask 60 10/02/16 14:15 92 20 101/60 94 Aerosol Mask 60 10/02/16 14:00 96 22 92 Aerosol Mask 60 10/02/16 13:45 125 22 121/67 95 Aerosol Mask 60 10/02/16 13:38 98.9 138 22 141/97 96 Aerosol Mask 60 10/02/16 13:38 92 Simple Mask 8.00 10/02/16 11:27 Room Air 10/02/16 08:36 93 21 10/02/16 08:00 100.3 92 18 91/50 93 88/53 10/02/16 04:00 99.4 112 21 94/51 93 10/02/16 04:00 Room Air 10/02/16 00:50 100.0 96 18 110/44 95 10/02/16 00:00 Room Air 10/01/16 20:00 99.0 98 18 121/94 96 10/01/16 20:00 Room Air -: 10/02/16 0804 10/02/16 0804 Physical Exam General Appearance: No Acute Distress, Comfortable Eyes Eye Exam: Pupils Equal Throat Throat Exam: Oral Mucosa [place] & Moist Neck Neck Exam: Neck Supple Pulmonary Resp Exam: Breath Sounds Equal, No Distress, Decreased Bases Cardiology CV Exam: Regular, Normal Sinus Rhythm Gastrointestinal/Abdomen GI Exam: Soft, Non-Tender, Bowel Sounds Present, Distended Extremeties Extremities Exam: Moderate Edema, Pitting Edema, Dependent Edema Neurologic Neuro Exam: Alert, Awake, Oriented Psychiatric Psych Exam: Appropriate Responses Assessment/Plan Assessment Summary: Anemia of CKD, Hypotension, End Stage Renal Disease Problem List: (1) Wounds, multiple (2) Chronic back pain (3) Diabetes (4) Malnutrition (5) Anemia in chronic kidney disease (CKD) (6) End stage renal disease on dialysis Plan Patient has now stable Hgb. BP is improving. HD is due in AM. Continue Epogen with HD. Remove fluid as tolerated. Hospice is consulted, will follow. Problem Qualifiers (1) Diabetes: (2) Anemia in chronic kidney disease (CKD): Qualified Code: N18.6 - Anemia in chronic kidney disease, on chronic dialysis Valentin Jimenez MD Oct 02, 2016 19:37
--- NOTE | 2016-10-02 20:33 | HHI.IDPN ---
Subjective Subjective Remarks Apparently decame hemodynamically unstable after EGD SHe developped hypotension and was moved to ICU She is having large volume liquid diarrhea and is C.diff + SHe also growing coag neg staph in the blood clx and was started on vancomycin this am She is co pain in the wounds and co being very hugry Antibiotics IV vanco po vanco IV flagyl dificid Past Medical History ESRD/HD Allergies: Coded Allergies: Biaxin (Verified Allergy, Severe, swelling of face, 05/10/16) Iron (Verified Adverse Reaction, Severe, Constipation, 05/10/16) Morphine (Verified Adverse Reaction, Severe, 06/11/16) renal insufficiency. *MDRO Multi-Drug Resistant Organism (Verified Adverse Reaction, Unknown, VRE, MRSA, MDR-Pseudomonas, 09/02/16) VRE (abdominal wound) - 07/09/16 MDR-Pseudomonas (abdominal wound) - 07/09/16 MRSA (abdomen wound) - 08/28/16 Objective . Vital Signs Date Time Temp Pulse Resp B/P Pulse Ox O2 Delivery O2 Flow Rate FiO2 10/02/16 17:00 98.9 94 18 102/64 98 Nasal Cannula 4 Aerosol Mask 10/02/16 16:30 94 18 102/64 100 Nasal Cannula 4 Aerosol Mask 10/02/16 16:15 99 18 100/49 100 Nasal Cannula 4 Aerosol Mask 10/02/16 16:00 98.8 101 18 102/56 98 Nasal Cannula 4 Aerosol Mask 10/02/16 15:45 102 18 102/56 92 Nasal Cannula 4 Aerosol Mask 10/02/16 15:45 102 18 102/56 92 Nasal Cannula 2 Aerosol Mask 10/02/16 15:30 104 18 113/59 98 Aerosol Mask 60 113/57 10/02/16 15:15 104 10/02/16 15:08 107 18 98/48 98 Aerosol Mask 60 10/02/16 15:00 106 18 66/37 96 Aerosol Mask 60 10/02/16 14:56 107 18 73/37 89 Aerosol Mask 60 10/02/16 14:45 109 18 82/34 100 Aerosol Mask 60 10/02/16 14:30 94 22 84/45 95 Aerosol Mask 60 10/02/16 14:15 92 20 101/60 94 Aerosol Mask 60 10/02/16 14:00 96 22 92 Aerosol Mask 60 10/02/16 13:45 125 22 121/67 95 Aerosol Mask 60 10/02/16 13:38 98.9 138 22 141/97 96 Aerosol Mask 60 10/02/16 13:38 92 Simple Mask 8.00 10/02/16 11:27 Room Air 10/02/16 08:36 93 21 10/02/16 08:00 100.3 92 18 91/50 93 88/53 10/02/16 04:00 99.4 112 21 94/51 93 10/02/16 04:00 Room Air 10/02/16 00:50 100.0 96 18 110/44 95 10/02/16 00:00 Room Air 10/01/16 10/01/16 10/02/16 15:00 23:00 07:00 Intake Total 242 ml Output Total 3000 ml Balance -2758 ml Intake Oral 240 ml IV Total 2 ml Hemodialysis 3000 ml # Voids 0 0 # Bowel Movements 1 1 0 . Laboratory Tests Test 10/01/16 10/01/16 10/02/16 05:16 11:01 08:04 White Blood Count 20.9 TH/MM3 17.6 TH/MM3 16.6 TH/MM3 Red Blood Count 2.52 MIL/MM3 2.71 MIL/MM3 2.88 MIL/MM3 Hemoglobin 6.7 GM/DL 7.5 GM/DL 7.8 GM/DL Hematocrit 21.1 % 22.7 % 24.4 % Mean Corpuscular Volume 83.8 FL 83.9 FL 84.7 FL Mean Corpuscular Hemoglobin 26.7 PG 27.5 PG 27.0 PG Mean Corpuscular Hemoglobin 31.9 % 32.8 % 31.8 % Concent Red Cell Distribution Width 20.0 % 20.4 % 19.4 % Platelet Count 271 TH/MM3 260 TH/MM3 260 TH/MM3 Mean Platelet Volume 7.4 FL 7.9 FL 7.7 FL Neutrophils (%) (Auto) 76.8 % 76.9 % 72.2 % Lymphocytes (%) (Auto) 7.8 % 8.0 % 10.9 % Monocytes (%) (Auto) 4.4 % 3.6 % 4.9 % Eosinophils (%) (Auto) 10.7 % 10.9 % 11.7 % Basophils (%) (Auto) 0.3 % 0.6 % 0.3 % Neutrophils # (Auto) 16.1 TH/MM3 13.6 TH/MM3 12.0 TH/MM3 Lymphocytes # (Auto) 1.6 TH/MM3 1.4 TH/MM3 1.8 TH/MM3 Monocytes # (Auto) 0.9 TH/MM3 0.6 TH/MM3 0.8 TH/MM3 Eosinophils # (Auto) 2.2 TH/MM3 1.9 TH/MM3 1.9 TH/MM3 Basophils # (Auto) 0.1 TH/MM3 0.1 TH/MM3 0.0 TH/MM3 CBC Comment AUTO DIFF DIFF FINAL DIFF FINAL Differential Total Cells 100 Counted Neutrophils % (Manual) 61 % Band Neutrophils % 11 % Lymphocytes % 10 % Monocytes % 3 % Eosinophils % 15 % Neutrophils # (Manual) 15.0 TH/MM3 Nucleated Red Blood Cells 1 /100 WBC Differential Comment FINAL DIFF MANUAL Platelet Estimate NORMAL Platelet Morphology Comment NORMAL Laboratory Tests Test 10/01/16 10/02/16 03:31 08:04 Sodium Level 136 MEQ/L 136 MEQ/L Potassium Level 3.7 MEQ/L 3.2 MEQ/L Chloride Level 102 MEQ/L 101 MEQ/L Carbon Dioxide Level 20.7 MEQ/L 25.7 MEQ/L Anion Gap 13 MEQ/L 9 MEQ/L Blood Urea Nitrogen 43 MG/DL 30 MG/DL Creatinine 4.82 MG/DL 3.80 MG/DL Estimat Glomerular Filtration 9 ML/MIN 12 ML/MIN Rate Random Glucose 130 MG/DL 74 MG/DL Lactic Acid Level 1.7 mmol/L Calcium Level 7.6 MG/DL 7.5 MG/DL Total Bilirubin 0.3 MG/DL Aspartate Amino Transf 14 U/L (AST/SGOT) Alanine Aminotransferase LESS THAN 6 U/L (ALT/SGPT) Alkaline Phosphatase 98 U/L Total Protein 5.6 GM/DL Albumin 1.2 GM/DL Phosphorus Level 3.1 MG/DL Magnesium Level 1.8 MG/DL Iron Level 23 MCG/DL Total Iron Binding Capacity 92 MCG/DL Percent Iron Saturation 24.9 % Ferritin 1358 NG/ML Vitamin B12 Level GREATER THAN 2000 PG/ML Folate 11.1 NG/ML Free Thyroxine 0.88 NG/DL Free Triiodothyronine (T3) LESS THAN 0.50 pg/dL PG/ML Thyroid Stimulating Hormone 13.000 uIU/ML 3rd Gen Microbiology Date/Time Procedure Status Source Growth 09/30/16 20:20 Aerobic Blood Culture - Preliminary Resulted Blood Peripheral Staph Sp Coagulase Negative 09/30/16 20:20 Anaerobic Blood Culture - Preliminary Resulted Blood Peripheral NO GROWTH IN 2 DAYS 09/30/16 20:20 Aerobic Blood Culture - Preliminary Resulted Blood Peripheral Gram Positive Cocci 09/30/16 20:20 Anaerobic Blood Culture - Preliminary Resulted Gram Positive Cocci Imaging Last Impressions Chest X-Ray 10/02/16 0000 Signed Impressions: Service Date/Time: Sunday, October 02, 2016 15:49 - CONCLUSION: 1. Right IJ central line in good position without evidence for pneumothorax. 2. Cardiomegaly with mild positive fluid balance. 3. Minimal airspace disease in the left lower lung zone, likely atelectasis. Madhav Jacobs MD Physical Exam CONSTITUTIONAL/GENERAL: This is amorbidly obese female patient, in no apparent distress. TUBES/LINES/DRAINS: SKIN: No jaundice, rashes, or lesions. Abdominal wounds are clean, pink Sacral wound is stage IV ecxtensive about 10 cm with some necrotic tissue (30%) , but not infected appearing L hip wound is unstagible and covereged with bingham necrotic eschar, but no cellulitis, no fould odor or purulence ENT: moist mucosae CARDIOVASCULAR: Regular rate and rhythm without murmurs, gallops, or rubs. . RESPIRATORY/CHEST: Symmetric, unlabored respirations. Clear to auscultation. Breath sounds equal bilaterally. No wheezes, rales, or rhonchi. GASTROINTESTINAL: Abdomen soft, non-tender, nondistended. No hepato-splenomegaly , or palpable masses. No guarding. Bowel sounds present. Incontinent of liquid foul smelling stool, very large amount GENITOURINARY: Without palpable bladder distension. MUSCULOSKELETAL: Extremities without clubbing, cyanosis, or edema. No mottling or clubbing. Hyperpigmentation, chronic BLE NEUROLOGICAL:Fully awake Motor and sensory grossly within normal limits. Follows commands. Clear speech. Moves all extremities. PSYCHIATRIC: tearful Assessment & Plan Remarks Hypervirulent 027 C.diff strain Coag negative bacteremia ? source Sepsis - likely 2/2 C.diff Chronic wounds - abd wounds are clean with no necrotic tissue L hip wound is a concern over extensve necrosis but no e/o active infx Sacral wound is deep and sows poor healing but no active infx ESRD, HD cont dificid conmt vanco oral cont vanco IV cont lagyl IV dw Dr Anant bustillos RN dw family Tila,Bel Medel MD Oct 02, 2016 20:33
[2016-10-02] MEDS ORDERED: SENNOSIDES 8.6 MG TAB PO PRN (21:00)
[2016-10-02] MEDS ORDERED: MAGNESIUM HYDROXIDE SUSP 30 ML CUP PO PRN (21:00)
[2016-10-02] MEDS: SODIUM HYPOCHLORITE 0.25% 500 ML BTL TOPICAL SCH (21:38)
[2016-10-02] MEDS: ACETAMINOPHEN 1000 MG/100 ML VIAL IV SCH (22:00)
[2016-10-02] MEDS: ATORVASTATIN 40 MG TAB PO SCH (22:01)
[2016-10-02] MEDS: SODIUM CHLOR 0.9% 1000 ML INJ 1,000 ML IV SCH (22:03)
[2016-10-03] VITALS (25 sets, daily range): BP systolic 93–133; BP diastolic 51–69; PULSE 75–97; RESP 0–26; TEMP 98.4–99.4; O2SAT 75–100
[2016-10-03] MEDS: metroNIDAZOLE 500 MG INJ 100 ML IV SCH ×3 (01:25→16:46)
[2016-10-03] MEDS: PHENYLEPHRINE 40 MG/D5W 496 ML ADMIX IV SCH ×4 (01:26→14:18)
[2016-10-03] MEDS: ACETAMINOPHEN 1000 MG/100 ML VIAL IV SCH ×4 (01:27→21:44)
[2016-10-03] MEDS: VANCOMYCIN 500 MG VIAL (FOR ORAL USE ONLY) PO SCH ×4 (01:27→17:45)
[2016-10-03] MEDS: CHLORHEXIDINE GLUCONATE 2 % 1 PACK (2 CLOTHS) TOP SCH (01:28)
[2016-10-03] MEDS: SODIUM CHLOR 0.9% 1000 ML INJ 1,000 ML IV SCH ×2 (01:28→14:18)
[2016-10-03 05:22] LABS: AUTOMATED NEUTROPHIL # 15.3 TH/MM3 (1.8-7.7); BASOPHIL # 0.1 TH/MM3 (0-0.2); BASOPHIL % 0.3 % (0.0-2.0); EOSINOPHIL # 1.9 TH/MM3 (0-0.4); EOSINOPHIL % 9.1 % (0.0-4.0); HEMATOCRIT 28.5 % (35.0-46.0); LYMPH % 11.9 % (9.0-44.0); LYMPHOCYTE # 2.5 TH/MM3 (1.0-4.8); MEAN CELL VOLUME 85.1 FL (80.0-100.0); MEAN CORPUSCULAR HEMOGLOBIN 26.8 PG (27.0-34.0); MEAN CORPUSCULAR HGB CONC 31.5 % (32.0-36.0); MONO % 6.2 % (0.0-8.0); NEUT % 72.5 % (16.0-70.0); PLATELET COUNT 363 TH/MM3 (150-450); RED BLOOD COUNT 3.35 MIL/MM3 (4.00-5.30); RED CELL DISTRIBUTION WIDTH 19.4 % (11.6-17.2); WHITE BLOOD COUNT 21.1 TH/MM3 (4.0-11.0)
[2016-10-03 05:49] LABS: HEMO FLAGS AUTO DIFF
[2016-10-03 05:57] LABS: BICARBONATE 24.7 MEQ/L (21.0-32.0); MAGNESIUM 1.7 MG/DL (1.5-2.5)
[2016-10-03 05:59] LABS: POTASSIUM 4.7 MEQ/L (3.5-5.1)
[2016-10-03] MEDS: INSULIN ASPART SUPPLEMENTAL SCALE SQ SCH ×4 (07:00→21:00)
[2016-10-03 08:32] LABS: BANDS 15 % (0-6); EOSINOPHILS 11 % (0-4); METAMYELOCYTES 1 % (0-1); NEUTROPHIL # MANUAL DIFF 15.4 TH/MM3 (1.8-7.7); POLYS (SEG NEUTROPHILS) 57 % (16-70); WBC DIFF SAMPLE 100
[2016-10-03 08:34] LABS: PLATELET ESTIMATE SMEAR NORMAL (NORMAL); PLATELET MORPHOLOGY NORMAL (NORMAL); SCAN/DIFF FINAL DIFF MANUAL
[2016-10-03] MEDS: ASPIRIN EC 81 MG TABEC PO SCH (09:00)
[2016-10-03] MEDS: DOCUSATE SODIUM 50 MG/SENNA 8.6 MG TAB PO SCH ×2 (09:00→21:00)
[2016-10-03] MEDS: INSULIN DETEMIR 100 UNITS/ML VIAL SQ SCH (09:00)
[2016-10-03] MEDS: MEGESTROL ACETATE SUSP 400 MG/10 ML CUP PO SCH (09:00)
[2016-10-03] MEDS: SODIUM CHLORIDE 0.9% FLUSH 10 ML FLUSH IV FLUSH SCH ×2 (09:00→21:44)
[2016-10-03] MEDS: FLUoxetine HCL 20 MG CAP PO SCH (09:00)
--- NOTE | 2016-10-03 09:03 | HHI.PR ---
Subjective Remarks Patient emotional during visit. Denies any CP or SOB. Continues to have frequent loose stools. Objective Vital Signs Date Time Temp Pulse Resp B/P Pulse Ox O2 Delivery O2 Flow Rate FiO2 10/03/16 08:00 85 18 93/58 97 10/03/16 07:00 81 4 93/61 98 10/03/16 06:00 77 7 110/63 97 10/03/16 06:00 77 10/03/16 05:00 75 7 108/54 98 10/03/16 04:00 77 10/03/16 04:00 77 0 94/52 96 10/03/16 03:00 81 0 116/59 98 10/03/16 02:00 82 10/03/16 02:00 82 9 133/62 99 10/03/16 01:00 81 13 106/54 96 10/03/16 00:00 80 10/03/16 00:00 98.9 80 0 103/51 95 10/02/16 23:00 82 0 101/51 96 10/02/16 22:00 85 1 97/51 96 10/02/16 22:00 85 10/02/16 21:00 85 2 94/50 97 10/02/16 21:00 85 10/02/16 20:00 Room Air 10/02/16 20:00 99.0 95 10 95/52 99 10/02/16 20:00 95 10/02/16 19:00 100 103/55 100 10/02/16 19:00 92 10/02/16 17:00 98.9 94 18 102/64 98 Nasal Cannula 4 Aerosol Mask 10/02/16 16:30 94 18 102/64 100 Nasal Cannula 4 Aerosol Mask 10/02/16 16:15 99 18 100/49 100 Nasal Cannula 4 Aerosol Mask 10/02/16 16:00 98.8 101 18 102/56 98 Nasal Cannula 4 Aerosol Mask 10/02/16 15:45 102 18 102/56 92 Nasal Cannula 4 Aerosol Mask 10/02/16 15:45 102 18 102/56 92 Nasal Cannula 2 Aerosol Mask 10/02/16 15:30 104 18 113/59 98 Aerosol Mask 60 113/57 10/02/16 15:15 104 10/02/16 15:08 107 18 98/48 98 Aerosol Mask 60 10/02/16 15:00 106 18 66/37 96 Aerosol Mask 60 10/02/16 14:56 107 18 73/37 89 Aerosol Mask 60 10/02/16 14:45 109 18 82/34 100 Aerosol Mask 60 10/02/16 14:30 94 22 84/45 95 Aerosol Mask 60 10/02/16 14:15 92 20 101/60 94 Aerosol Mask 60 10/02/16 14:00 96 22 92 Aerosol Mask 60 10/02/16 13:45 125 22 121/67 95 Aerosol Mask 60 10/02/16 13:38 98.9 138 22 141/97 96 Aerosol Mask 60 10/02/16 13:38 92 Simple Mask 8.00 10/02/16 11:27 Room Air I/O 10/02/16 10/02/16 10/02/16 10/03/16 10/03/16 10/03/16 07:00 15:00 23:00 07:00 15:00 23:00 Intake Total 450 ml 1761 ml Balance 450 ml 1761 ml IV Total 1761 ml Other 450 ml # Voids 0 # Bowel Movements 0 1 1 Result Diagram: 10/03/1642910/03/16429 Objective Remarks GENERAL: Obese. Emotional crying off and on during visit. SKIN: Warm and dry. Multiple wounds present in Panus and coccyx region HEAD: Normocephalic. EYES: No scleral icterus. No injection or drainage. NECK: Supple, trachea midline. No JVD or lymphadenopathy. CARDIOVASCULAR: Regular rate and rhythm without murmurs, gallops, or rubs. RESPIRATORY: Breath sounds equal bilaterally. No accessory muscle use. GASTROINTESTINAL: Abdomen soft, non-tender, nondistended. MUSCULOSKELETAL: No cyanosis, or edema. BACK: Nontender without obvious deformity. No CVA tenderness. Assessment and Plan Problem List: (1) Symptomatic anemia Status: Acute Plan: Transfused 3 units of PRBC initially. HBG 7.8 today GI consulted no obvious signs of bleeding. EGD planned for today (2) End stage kidney disease Status: Chronic Plan: Classroom Technology Technician consulted. 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 On insulin. (4) Pressure ulcer of coccygeal region Status: Acute Plan: Wound care consulted for recommendations (5) HTN (hypertension) Status: Acute Plan: Blood pressure at 91/50 . Will discontinue B/P medication (6) Anxiety Status: Acute Plan: Patient with anxiety and depression. Prozac increased and PRN xanax. (7) C. difficile diarrhea Status: Acute Plan: ID consulted On oral vancomycin and Dificid. (8) Bacteremia Status: Acute Plan: Blood cultures with + cocci. Vancomycin ordered. (9) Hypokalemia Status: Acute Plan: potassium 3.2 replacement added. Assessment and Plan Assessment and plan discussed with Dr. Freitas Physician Attestation I and the GOVERNMENT RELATIONS ANALYST have both examined this patient and reviewed this note and I agree with these findings and plan of care. Betty Hood. [facility] Oct 03, 2016 09:03
[2016-10-03] MEDS: THYROID 60 MG TAB PO SCH (09:19)
[2016-10-03] MEDS: SEVELAMER CARBONATE 800 MG TAB PO SCH ×3 (09:19→17:45)
[2016-10-03] MEDS: PANTOPRAZOLE SODIUM 40 MG VIAL IV SCH (09:20)
[2016-10-03] MEDS: SODIUM HYPOCHLORITE 0.25% 500 ML BTL TOPICAL SCH (09:21)
--- NOTE | 2016-10-03 09:34 | HHI.PR ---
Subjective Remarks Patient emotional during visit. Denies any CP or SOB. Continues to have frequent loose stools. Alert and oriented and wanting breakfast. Objective Vital Signs Date Time Temp Pulse Resp B/P Pulse Ox O2 Delivery O2 Flow Rate FiO2 10/03/16 08:00 85 18 93/58 97 10/03/16 07:00 81 4 93/61 98 10/03/16 06:00 77 7 110/63 97 10/03/16 06:00 77 10/03/16 05:00 75 7 108/54 98 10/03/16 04:00 77 10/03/16 04:00 77 0 94/52 96 10/03/16 03:00 81 0 116/59 98 10/03/16 02:00 82 10/03/16 02:00 82 9 133/62 99 10/03/16 01:00 81 13 106/54 96 10/03/16 00:00 80 10/03/16 00:00 98.9 80 0 103/51 95 10/02/16 23:00 82 0 101/51 96 10/02/16 22:00 85 1 97/51 96 10/02/16 22:00 85 10/02/16 21:00 85 2 94/50 97 10/02/16 21:00 85 10/02/16 20:00 Room Air 10/02/16 20:00 99.0 95 10 95/52 99 10/02/16 20:00 95 10/02/16 19:00 100 103/55 100 10/02/16 19:00 92 10/02/16 17:00 98.9 94 18 102/64 98 Nasal Cannula 4 Aerosol Mask 10/02/16 16:30 94 18 102/64 100 Nasal Cannula 4 Aerosol Mask 10/02/16 16:15 99 18 100/49 100 Nasal Cannula 4 Aerosol Mask 10/02/16 16:00 98.8 101 18 102/56 98 Nasal Cannula 4 Aerosol Mask 10/02/16 15:45 102 18 102/56 92 Nasal Cannula 4 Aerosol Mask 10/02/16 15:45 102 18 102/56 92 Nasal Cannula 2 Aerosol Mask 10/02/16 15:30 104 18 113/59 98 Aerosol Mask 60 113/57 10/02/16 15:15 104 10/02/16 15:08 107 18 98/48 98 Aerosol Mask 60 10/02/16 15:00 106 18 66/37 96 Aerosol Mask 60 10/02/16 14:56 107 18 73/37 89 Aerosol Mask 60 10/02/16 14:45 109 18 82/34 100 Aerosol Mask 60 10/02/16 14:30 94 22 84/45 95 Aerosol Mask 60 10/02/16 14:15 92 20 101/60 94 Aerosol Mask 60 10/02/16 14:00 96 22 92 Aerosol Mask 60 10/02/16 13:45 125 22 121/67 95 Aerosol Mask 60 10/02/16 13:38 98.9 138 22 141/97 96 Aerosol Mask 60 10/02/16 13:38 92 Simple Mask 8.00 10/02/16 11:27 Room Air I/O 10/02/16 10/02/16 10/02/16 10/03/16 10/03/16 10/03/16 07:00 15:00 23:00 07:00 15:00 23:00 Intake Total 450 ml 1761 ml Balance 450 ml 1761 ml IV Total 1761 ml Other 450 ml # Voids 0 # Bowel Movements 0 1 1 Result Diagram: 10/03/16 0430 10/03/16 0430 Imaging Last 72 hours Impressions Chest X-Ray 10/02/16 0000 Signed Impressions: Service Date/Time: Sunday, October 02, 2016 15:49 - CONCLUSION: 1. Right IJ central line in good position without evidence for pneumothorax. 2. Cardiomegaly with mild positive fluid balance. 3. Minimal airspace disease in the left lower lung zone, likely atelectasis. Madhav Jacobs MD Objective Remarks GENERAL: Obese. Emotional crying off and on during visit. SKIN: Warm and dry. Multiple wounds present in Panus and coccyx region HEAD: Normocephalic. EYES: No scleral icterus. No injection or drainage. NECK: Supple, trachea midline. No JVD or lymphadenopathy. CARDIOVASCULAR: Regular rate and rhythm without murmurs, gallops, or rubs. RESPIRATORY: Breath sounds equal bilaterally. No accessory muscle use. GASTROINTESTINAL: Abdomen soft, non-tender, nondistended. MUSCULOSKELETAL: No cyanosis, or edema. BACK: Nontender without obvious deformity. No CVA tenderness. Medications and IVs Current Medications Medications (Trade) Dose Ordered Sig/Soren Route Start Time Stop Time Status Last Admin (Zofran Inj) 4 mg Q6H PRN IVP 09/30/16 20:45 (Narcan Inj) 0.4 mg UNSCH PRN IV 09/30/16 20:45 (Xanax) 0.25 mg Q6H PRN PO 09/30/16 20:45 10/01/16 20:36 (Ecotrin Ec) 81 mg DAILY PO 10/01/16 09:00 10/02/16 09:29 (Lipitor) 40 mg HS PO 09/30/16 21:00 10/02/16 22:01 (Rocaltrol) 0.5 mcg DAILY PO 10/01/16 09:00 10/02/16 09:30 (Vitamin D3) 10,000 units BID PO 09/30/16 21:00 10/02/16 22:01 (Sensipar) 30 mg DAILY PO 10/01/16 09:00 (Benadryl) 25 mg Q6H PRN PO 09/30/16 20:45 (Adrenalin (1:1000) Inj) 0.3 mg ONCE PRN IV PUSH 09/30/16 20:45 10/03/16 20:44 (Neurontin) 100 mg BID PO 09/30/16 21:00 10/02/16 22:01 (Gelfoam 12 Mm/7 Mm Top) 1 foam UNSCH PRN EXTERNAL 09/30/16 20:45 (SoluCORTEF INJ) 250 mg ONCE PRN IV PUSH 09/30/16 20:45 10/03/16 20:44 (Levemir Inj) 10 units DAILY SQ 10/01/16 09:00 10/02/16 09:19 (Antivert) 25 mg TID PRN PO 09/30/16 20:45 (Megace Liq) 400 mg DAILY PO 10/01/16 09:00 (Zofran Odt) 4 mg Q6HR PRN SL 09/30/16 20:45 (Renvela) 1,600 mg TID PO 10/01/16 09:00 10/03/16 09:19 (Dakin'S 0.25% Soln) 500 ml DAILY TOPICAL 10/01/16 09:00 10/03/16 09:21 ([place] Thyroid) 60 mg DAILY PO 10/01/16 09:00 10/03/16 09:19 (Vitamin B12) 1,000 mcg DAILY PO 10/01/16 09:00 10/02/16 09:29 (Roxicodone) 15 mg Q6H PRN PO 10/01/16 02:00 10/03/16 07:32 (Dificid) 200 mg BID PO 10/01/16 21:00 10/11/16 20:59 10/02/16 22:01 (VANCOMYCIN for oral use only) 500 mg Q6HR PO 10/01/16 18:00 10/03/16 07:25 (PROzac) 20 mg DAILY PO 10/03/16 09:00 Miscellaneous Information ALL NURSING DEPARTME... UNSCH PRN .XX 10/02/16 13:38 10/03/16 13:37 (NS 1000 ml Inj) 1,000 ml @ 84 mls/hr [id number] IV 10/02/16 15:22 10/03/16 01:28 (NS Flush) 2 ml UNSCH PRN IV FLUSH 10/02/16 15:30 (NS Flush) 2 ml BID IV FLUSH 10/02/16 21:00 10/03/16 09:00 (Tylenol) 650 mg Q6HR PRN PO 10/02/16 18:00 (Protonix Inj) 40 mg DAILY IV 10/03/16 09:00 10/03/16 09:20 Miscellaneous Information 1 [id number] XX 10/02/16 15:30 (Chlorhexidine 2% Cloth) 3 pack Taper DAILY@04 TOP 10/03/16 04:00 09/29/17 03:59 10/03/16 01:28 (Chlorhexidine 2% Cloth) 3 pack UNSCH PRN TOP 10/02/16 15:30 (Luciana-Colace) 1 tab BID PO 10/02/16 21:00 (Milk Of Magnesia Liq) 30 ml Q12HR PRN PO 10/02/16 21:00 (Senokot) 17.2 mg Q12HR PRN PO 10/02/16 21:00 (Dulcolax Supp) 10 mg DAILY PRN RECTAL 10/02/16 16:00 (Lactulose Liq) 30 ml DAILY PRN PO 10/02/16 16:00 (D50w (Vial) Inj) 50 ml UNSCH PRN IV 10/02/16 15:45 Glucagon 1 mg 1 mg UNSCH PRN OTHER 10/02/16 15:45 (Flagyl 500 Mg Inj) 100 ml @ 100 mls/hr Q8H IV 10/02/16 17:00 10/03/16 09:20 Acetaminophen 1000 mg 1,000 mg Q6H IV 10/02/16 20:00 10/03/16 19:59 10/03/16 01:27 (Neosynephrine Inj/D5W 500 ml Inj) 500 ml @ 0 mls/hr TITRATE IV 10/02/16 17:00 10/03/16 01:26 (Brethine Inj) 1 mg UNSCH PRN SQ 10/02/16 17:00 Assessment and Plan Problem List: (1) Symptomatic anemia Status: Acute Plan: Transfused 3 units of PRBC initially. HBG 9.0 today GI consulted no obvious signs of bleeding. EGD yesterday (2) End stage kidney disease Status: Chronic Plan: Measurement Analyst consulted. 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 BS 69-102 On SS insulin only (4) Pressure ulcer of coccygeal region Status: Acute Plan: Wound care consulted and managing. On air bed (5) Anxiety Status: Acute Plan: Patient with anxiety and depression. Prozac increased yesterday and PRN xanax available (6) C. difficile diarrhea Status: Acute Plan: ID consulted On oral vancomycin and Dificid. Rectal tube ordered (7) Bacteremia Status: Acute Plan: Blood cultures with + cocci. Vancomycin ordered and flagyl started. Patient is hypotension on norsynephrine gtt for blood pressure support. Has remained afebrile (8) Hypokalemia Status: Acute Plan: potassium 4.7 Assessment and Plan Assessment and plan discussed with Dr. Freitas Discussed Condition With Nursing Discharge Planning SNF Hospice has been consulted Physician Attestation I and the SENIOR ENVIRONMENTAL CONSULTANT have both examined this patient and reviewed this note and I agree with these findings and plan of care. Betty Hood [facility] Oct 03, 2016 09:34
[2016-10-03] MEDS: GABAPENTIN 100 MG CAP PO SCH ×2 (10:41→21:43)
[2016-10-03] MEDS: FIDAXOMICIN 200 MG TAB PO SCH ×2 (10:41→21:43)
[2016-10-03] MEDS: CHOLECALCIFEROL (VIT D3) 5000 UNIT CAP PO SCH ×2 (10:41→21:43)
[2016-10-03] MEDS: CINACALCET HYDROCHLORIDE 30 MG TAB PO SCH (10:42)
[2016-10-03] MEDS: CALCITRIOL 0.25 MCG CAP PO SCH (10:42)
[2016-10-03] MEDS: CYANOCOBALAMIN 1,000 MCG TAB PO SCH (10:42)
--- NOTE | 2016-10-03 15:55 | HHI.GIFU ---
Subjective Remarks Patient is resting in bed, denies any source of bleeding. (Arturo Valentin) Objective Vitals I&O Vital Signs Date Time Temp Pulse Resp B/P Pulse Ox O2 Delivery O2 Flow Rate FiO2 10/03/16 15:00 85 17 102/55 94 10/03/16 14:00 84 10/03/16 14:00 88 14 105/53 94 10/03/16 13:00 95 26 113/61 95 10/03/16 12:00 86 10/03/16 12:00 98.4 91 17 116/65 100 10/03/16 11:00 85 13 116/58 99 10/03/16 10:00 82 10/03/16 10:00 90 19 115/63 99 10/03/16 09:00 83 24 131/66 99 10/03/16 08:00 87 10/03/16 08:00 85 18 93/58 97 10/03/16 08:00 98.9 85 18 93/58 97 10/03/16 07:00 Room Air 10/03/16 07:00 81 4 93/61 98 10/03/16 06:00 77 7 110/63 97 10/03/16 06:00 77 10/03/16 05:00 75 7 108/54 98 10/03/16 04:00 77 10/03/16 04:00 77 0 94/52 96 10/03/16 03:00 81 0 116/59 98 10/03/16 02:00 82 10/03/16 02:00 82 9 133/62 99 10/03/16 01:00 81 13 106/54 96 10/03/16 00:00 80 10/03/16 00:00 98.9 80 0 103/51 95 10/02/16 23:00 82 0 101/51 96 10/02/16 22:00 85 1 97/51 96 10/02/16 22:00 85 10/02/16 21:00 85 2 94/50 97 10/02/16 21:00 85 10/02/16 20:00 Room Air 10/02/16 20:00 99.0 95 10 95/52 99 10/02/16 20:00 95 10/02/16 19:00 100 103/55 100 10/02/16 19:00 92 10/02/16 17:00 98.9 94 18 102/64 98 Nasal Cannula 4 Aerosol Mask 10/02/16 16:30 94 18 102/64 100 Nasal Cannula 4 Aerosol Mask 10/02/16 16:15 99 18 100/49 100 Nasal Cannula 4 Aerosol Mask 10/02/16 16:00 98.8 101 18 102/56 98 Nasal Cannula 4 Aerosol Mask I/O 10/02/16 10/02/16 10/02/16 10/03/16 10/03/16 10/03/16 07:00 15:00 23:00 07:00 15:00 23:00 Intake Total 450 ml 1761 ml 1672 ml Output Total 3000 ml Balance 450 ml 1761 ml -1328 ml Intake Oral 240 ml IV Total 1761 ml 1432 ml Other 450 ml Hemodialysis 3000 ml # Voids 0 # Bowel Movements 0 1 1 1 Laboratory Laboratory Tests Test 10/02/16 10/02/16 10/03/16 18:23 20:30 04:30 Prothrombin Time 15.4 Prothromb Time International 1.4 Ratio Nasal Screen MRSA (PCR) MRSA DETECTED White Blood Count 21.1 Red Blood Count 3.35 Hemoglobin 9.0 Hematocrit 28.5 Mean Corpuscular Volume 85.1 Mean Corpuscular Hemoglobin 26.8 Mean Corpuscular Hemoglobin 31.5 Concent Red Cell Distribution Width 19.4 Platelet Count 363 Mean Platelet Volume 7.6 Neutrophils (%) (Auto) 72.5 Lymphocytes (%) (Auto) 11.9 Monocytes (%) (Auto) 6.2 Eosinophils (%) (Auto) 9.1 Basophils (%) (Auto) 0.3 Neutrophils # (Auto) 15.3 Lymphocytes # (Auto) 2.5 Monocytes # (Auto) 1.3 Eosinophils # (Auto) 1.9 Basophils # (Auto) 0.1 CBC Comment AUTO DIFF Differential Total Cells 100 Counted Neutrophils % (Manual) 57 Band Neutrophils % 15 Lymphocytes % 10 Monocytes % 6 Eosinophils % 11 Neutrophils # (Manual) 15.4 Metamyelocytes 1 Differential Comment FINAL DIFF MANUAL Platelet Estimate NORMAL Platelet Morphology Comment NORMAL Sodium Level 134 Potassium Level 4.7 Chloride Level 100 Carbon Dioxide Level 24.7 Anion Gap 9 Blood Urea Nitrogen 35 Creatinine 4.35 Estimat Glomerular Filtration 11 Rate Random Glucose 77 Calcium Level 7.5 Phosphorus Level 4.2 Magnesium Level 1.7 Date/Time Procedure Status Source Growth 09/30/16 20:20 Aerobic Blood Culture - Preliminary Resulted Blood Peripheral Staph Sp Coagulase Negative 09/30/16 20:20 Anaerobic Blood Culture - Preliminary Resulted Staph Sp Coagulase Negative Imaging Last Impressions Chest X-Ray 10/02/16 0000 Signed Impressions: Service Date/Time: Sunday, October 02, 2016 15:49 - CONCLUSION: 1. Right IJ central line in good position without evidence for pneumothorax. 2. Cardiomegaly with mild positive fluid balance. 3. Minimal airspace disease in the left lower lung zone, likely atelectasis. Madhav Jacobs MD Physical Exam HEENT: normocephalic; atraumatic; no jaundice. NECK: Neck is supple, no JVD, no lymphadenopathy. CHEST: Chest is clear to auscultation and percussion. CARDIAC: Regular rate and rhythm with no murmur gallop or rubs. ABDOMEN: Soft, obese, nondistended, nontender; no hepatosplenomegaly; bowel sounds are present in all four quadrants. EXTREMITIES: severe discoloration to BLE SKIN: no jaundice. YARROW GATHERER: No focal deficits; alert and oriented times three. (Arturo Valentin) Assessment and Plan Plan - Acute on chronic anemia/ heme (+) stools- S/p EGD on (10/02/16) essentially unremarkable. EGD/colonoscopy on (02/25/11)----> gastritis post lap band, duodenitis, small lipoma in the right colon, internal/external hemorrhoids, bx was benign , she was recommended a 10 yr f/ u. She denies alcohol use or NSAIDs. - Anemia- stable HH no obvious bleeding, most likely multifactorial, this could be anemia of chronic Dz, and possible GI bleed - C-diff X 3 weeks- Flagyl, Dificid, and vanco - ESRD on dialysis - poorly healing open ulcers on buttock area. Wound nurse consulted - Leukocytosis- Blood cx pending, febrile T max 100.0 - Weight loss- She has lost 160 ibs since November of 2015 due to starting dialysis and dieting. - Morbid obesity, DM, per attending Plan: - TRENT - Patient will need colonoscopy when able, this is difficult due to chronic open wounds on buttock - Cont. Dificid 200 mg bid - Cont. Flagyl - Cont. Vanco - Monitor HH - Transfuse as needed - Supportive care - Patient seen and examined by Dr. Waldrop and myself and this note is written on his behalf. (Arturo Valentin) Physician Comments Patient seen and examined Agree with above Continue with current supportive care Monitor labs (Raheem Waldrop MD) Arturo Valentin Oct 03, 2016 15:55 Raheem Waldrop MD Oct 03, 2016 19:28
--- NOTE | 2016-10-03 16:30 | HHI.IDPN ---
Subjective Subjective Remarks doing better afebrile Con to have diaarrhea Antibiotics IV vanco po vanco IV flagyl dificid Past Medical History ESRD/HD Allergies: Coded Allergies: Biaxin (Verified Allergy, Severe, swelling of face, 05/10/16) Iron (Verified Adverse Reaction, Severe, Constipation, 05/10/16) Morphine (Verified Adverse Reaction, Severe, 06/11/16) renal insufficiency. *MDRO Multi-Drug Resistant Organism (Verified Adverse Reaction, Unknown, VRE, MRSA, MDR-Pseudomonas, 09/02/16) VRE (abdominal wound) - 07/09/16 MDR-Pseudomonas (abdominal wound) - 07/09/16 MRSA (abdomen wound) - 08/28/16 Objective . Vital Signs Date Time Temp Pulse Resp B/P Pulse Ox O2 Delivery O2 Flow Rate FiO2 10/03/16 16:00 80 10/03/16 16:00 99.4 85 12 112/57 96 10/03/16 15:00 85 17 102/55 94 10/03/16 14:00 84 10/03/16 14:00 88 14 105/53 94 10/03/16 13:00 95 26 113/61 95 10/03/16 12:00 86 10/03/16 12:00 98.4 91 17 116/65 100 10/03/16 11:00 85 13 116/58 99 10/03/16 10:00 82 10/03/16 10:00 90 19 115/63 99 10/03/16 09:00 83 24 131/66 99 10/03/16 08:00 87 10/03/16 08:00 85 18 93/58 97 10/03/16 08:00 98.9 85 18 93/58 97 10/03/16 07:00 Room Air 10/03/16 07:00 81 4 93/61 98 10/03/16 06:00 77 7 110/63 97 10/03/16 06:00 77 10/03/16 05:00 75 7 108/54 98 10/03/16 04:00 77 10/03/16 04:00 77 0 94/52 96 10/03/16 03:00 81 0 116/59 98 10/03/16 02:00 82 10/03/16 02:00 82 9 133/62 99 10/03/16 01:00 81 13 106/54 96 10/03/16 00:00 80 10/03/16 00:00 98.9 80 0 103/51 95 10/02/16 23:00 82 0 101/51 96 10/02/16 22:00 85 1 97/51 96 10/02/16 22:00 85 10/02/16 21:00 85 2 94/50 97 10/02/16 21:00 85 10/02/16 20:00 Room Air 10/02/16 20:00 99.0 95 10 95/52 99 10/02/16 20:00 95 10/02/16 19:00 100 103/55 100 10/02/16 19:00 92 10/02/16 17:00 98.9 94 18 102/64 98 Nasal Cannula 4 Aerosol Mask 10/02/16 16:30 94 18 102/64 100 Nasal Cannula 4 Aerosol Mask 10/02/16 10/02/16 10/03/16 15:00 23:00 07:00 Intake Total 450 ml 1761 ml Balance 450 ml 1761 ml IV Total 1761 ml Other 450 ml # Bowel Movements 1 1 . Laboratory Tests Test 10/02/16 10/03/16 08:04 04:30 White Blood Count 16.6 TH/MM3 21.1 TH/MM3 Red Blood Count 2.88 MIL/MM3 3.35 MIL/MM3 Hemoglobin 7.8 GM/DL 9.0 GM/DL Hematocrit 24.4 % 28.5 % Mean Corpuscular Volume 84.7 FL 85.1 FL Mean Corpuscular Hemoglobin 27.0 PG 26.8 PG Mean Corpuscular Hemoglobin 31.8 % 31.5 % Concent Red Cell Distribution Width 19.4 % 19.4 % Platelet Count 260 TH/MM3 363 TH/MM3 Mean Platelet Volume 7.7 FL 7.6 FL Neutrophils (%) (Auto) 72.2 % 72.5 % Lymphocytes (%) (Auto) 10.9 % 11.9 % Monocytes (%) (Auto) 4.9 % 6.2 % Eosinophils (%) (Auto) 11.7 % 9.1 % Basophils (%) (Auto) 0.3 % 0.3 % Neutrophils # (Auto) 12.0 TH/MM3 15.3 TH/MM3 Lymphocytes # (Auto) 1.8 TH/MM3 2.5 TH/MM3 Monocytes # (Auto) 0.8 TH/MM3 1.3 TH/MM3 Eosinophils # (Auto) 1.9 TH/MM3 1.9 TH/MM3 Basophils # (Auto) 0.0 TH/MM3 0.1 TH/MM3 CBC Comment DIFF FINAL AUTO DIFF Differential Comment FINAL DIFF MANUAL Differential Total Cells 100 Counted Neutrophils % (Manual) 57 % Band Neutrophils % 15 % Lymphocytes % 10 % Monocytes % 6 % Eosinophils % 11 % Neutrophils # (Manual) 15.4 TH/MM3 Metamyelocytes 1 % Platelet Estimate NORMAL Platelet Morphology Comment NORMAL Laboratory Tests Test 10/02/16 10/03/16 08:04 04:30 Sodium Level 136 MEQ/L 134 MEQ/L Potassium Level 3.2 MEQ/L 4.7 MEQ/L Chloride Level 101 MEQ/L 100 MEQ/L Carbon Dioxide Level 25.7 MEQ/L 24.7 MEQ/L Anion Gap 9 MEQ/L 9 MEQ/L Blood Urea Nitrogen 30 MG/DL 35 MG/DL Creatinine 3.80 MG/DL 4.35 MG/DL Estimat Glomerular Filtration 12 ML/MIN 11 ML/MIN Rate Random Glucose 74 MG/DL 77 MG/DL Calcium Level 7.5 MG/DL 7.5 MG/DL Phosphorus Level 3.1 MG/DL 4.2 MG/DL Magnesium Level 1.8 MG/DL 1.7 MG/DL Iron Level 23 MCG/DL Total Iron Binding Capacity 92 MCG/DL Percent Iron Saturation 24.9 % Ferritin 1358 NG/ML Vitamin B12 Level GREATER THAN 2000 PG/ML Folate 11.1 NG/ML Free Thyroxine 0.88 NG/DL Free Triiodothyronine (T3) LESS THAN 0.50 pg/dL PG/ML Thyroid Stimulating Hormone 13.000 uIU/ML 3rd Gen Microbiology Date/Time Procedure Status Source Growth 09/30/16 20:20 Aerobic Blood Culture - Preliminary Resulted Blood Peripheral Staph Sp Coagulase Negative 09/30/16 20:20 Anaerobic Blood Culture - Preliminary Resulted Pleomorphic Gram Positive Rods 09/30/16 20:20 Aerobic Blood Culture - Preliminary Resulted Blood Peripheral Staph Sp Coagulase Negative 09/30/16 20:20 Anaerobic Blood Culture - Preliminary Resulted Staph Sp Coagulase Negative Imaging Last Impressions Chest X-Ray 10/02/16 0000 Signed Impressions: Service Date/Time: Sunday, October 02, 2016 15:49 - CONCLUSION: 1. Right IJ central line in good position without evidence for pneumothorax. 2. Cardiomegaly with mild positive fluid balance. 3. Minimal airspace disease in the left lower lung zone, likely atelectasis. Madhav Jacobs MD Physical Exam CONSTITUTIONAL/GENERAL: This is amorbidly obese female patient, in no apparent distress. TUBES/LINES/DRAINS: SKIN: No jaundice, rashes, or lesions. CARDIOVASCULAR: Regular rate and rhythm without murmurs, gallops, or rubs. . RESPIRATORY/CHEST: Symmetric, unlabored respirations. Clear to auscultation. Breath sounds equal bilaterally. No wheezes, rales, or rhonchi. GASTROINTESTINAL: Abdomen soft, non-tender, nondistended. No hepato-splenomegaly , or palpable masses. Bowel sounds present. GENITOURINARY: Without palpable bladder distension. MUSCULOSKELETAL: Extremities without clubbing, cyanosis, or edema. NEUROLOGICAL: sleepy PSYCHIATRIC: calm Assessment & Plan Remarks Hypervirulent 027 C.diff strain Coag negative bacteremia ? source Gram pos rods bacteremia ? cobntaminant Sepsis - likely 2/2 C.diff Chronic wounds - abd wounds are clean with no necrotic tissue L hip wound is a concern over extensve necrosis but no e/o active infx Sacral wound is deep and sows poor healing but no active infx ESRD, HD cont dificid x 10 days conmt vanco oral cont vanco IV with HD cont flagyl IV repeat blood clx - avoid systemic abx Bel Sewell Dr, RN, MD Oct 03, 2016 16:30
--- NOTE | 2016-10-03 16:59 | PD.CAR.PN ---
CVT Progress Note Subjective/Hospital Course: Patient, morbidly obese with multiple comorbidities including diabetes mellitus recurrent infections presents now with his C. difficile colitis for which she is being treated in the ICU Patient has several areas of hidradenitis suppurativa, and groins lateral buttocks and thighs area. She is an established patient of Dr. Meyers and he has operated on her before for the same Hidradenitis super at the very requires resection of segments of the skin bearing the sweat glands and then skin grafting. This is not within the scope of practice of general surgery for vascular surgery and is well within the scope of practice of plastic surgeons Thanks Mervat Objective: Vital Signs Date Time Temp Pulse Resp B/P Pulse Ox O2 Delivery O2 Flow Rate FiO2 10/03/16 16:00 80 10/03/16 16:00 99.4 85 12 112/57 96 10/03/16 15:00 85 17 102/55 94 10/03/16 14:00 84 10/03/16 14:00 88 14 105/53 94 10/03/16 13:00 95 26 113/61 95 10/03/16 12:00 86 10/03/16 12:00 98.4 91 17 116/65 100 10/03/16 11:00 85 13 116/58 99 10/03/16 10:00 82 10/03/16 10:00 90 19 115/63 99 10/03/16 09:00 83 24 131/66 99 10/03/16 08:00 87 10/03/16 08:00 85 18 93/58 97 10/03/16 08:00 98.9 85 18 93/58 97 10/03/16 07:00 Room Air 10/03/16 07:00 81 4 93/61 98 10/03/16 06:00 77 7 110/63 97 10/03/16 06:00 77 10/03/16 05:00 75 7 108/54 98 10/03/16 04:00 77 10/03/16 04:00 77 0 94/52 96 10/03/16 03:00 81 0 116/59 98 10/03/16 02:00 82 10/03/16 02:00 82 9 133/62 99 10/03/16 01:00 81 13 106/54 96 10/03/16 00:00 80 10/03/16 00:00 98.9 80 0 103/51 95 10/02/16 23:00 82 0 101/51 96 10/02/16 22:00 85 1 97/51 96 10/02/16 22:00 85 10/02/16 21:00 85 2 94/50 97 10/02/16 21:00 85 10/02/16 20:00 Room Air 10/02/16 20:00 99.0 95 10 95/52 99 10/02/16 20:00 95 10/02/16 19:00 100 103/55 100 10/02/16 19:00 92 10/02/16 17:00 98.9 94 18 102/64 98 Nasal Cannula 4 Aerosol Mask Result Diagram: 10/03/16 0430 10/03/16 0430 Bautista Castellon MD Oct 03, 2016 16:59
--- NOTE | 2016-10-03 18:41 | HHI.NPPN ---
Subjective General Problems: Anemia Renal Failure: End Stage Renal Disease History of Present Illness 55-year-old female known to me from before with past medical history of end-stage renal disease on hemodialysis, chronic anemia with recurrent blood transfusion, multiple abdominal wounds with debridement, history of anxiety, depression, arthritis, diabetes mellitus, morbid obesity, hypothyroidism was sent to the hospital because of severe anemia. I was called to see the patient for the management of hemodialysis. She has been on hemodialysis Friday, and Friday. Additional Remarks Patient is alert, has pain at rectal tube site, no SOB, no dizziness. Review of Systems General Constitutional: Fatigue Respiratory Lungs: SOB Cardiovascular Cardiac: GRIFFIN Gastrointestinal Gastrointestinal: Abdominal Pain, Nausea & Vomiting Objective Data Data 10/02/16 10/03/16 19:00 07:00 Intake Total 1250 ml 961 ml Balance 1250 ml 961 ml IV Total 800 ml 961 ml Other 450 ml # Bowel Movements 1 1 Vital Signs Date Time Temp Pulse Resp B/P Pulse Ox O2 Delivery O2 Flow Rate FiO2 10/03/16 18:00 87 10/03/16 18:00 97 19 128/69 75 10/03/16 17:00 85 16 104/53 96 10/03/16 16:00 80 10/03/16 16:00 99.4 85 12 112/57 96 10/03/16 15:00 85 17 102/55 94 10/03/16 14:00 84 10/03/16 14:00 88 14 105/53 94 10/03/16 13:00 95 26 113/61 95 10/03/16 12:00 86 10/03/16 12:00 98.4 91 17 116/65 100 10/03/16 11:00 85 13 116/58 99 10/03/16 10:00 82 10/03/16 10:00 90 19 115/63 99 10/03/16 09:00 83 24 131/66 99 10/03/16 08:00 87 10/03/16 08:00 85 18 93/58 97 10/03/16 08:00 98.9 85 18 93/58 97 10/03/16 07:00 Room Air 10/03/16 07:00 81 4 93/61 98 10/03/16 06:00 77 7 110/63 97 10/03/16 06:00 77 10/03/16 05:00 75 7 108/54 98 10/03/16 04:00 77 10/03/16 04:00 77 0 94/52 96 10/03/16 03:00 81 0 116/59 98 10/03/16 02:00 82 10/03/16 02:00 82 9 133/62 99 10/03/16 01:00 81 13 106/54 96 10/03/16 00:00 80 10/03/16 00:00 98.9 80 0 103/51 95 10/02/16 23:00 82 0 101/51 96 10/02/16 22:00 85 1 97/51 96 10/02/16 22:00 85 10/02/16 21:00 85 2 94/50 97 10/02/16 21:00 85 10/02/16 20:00 Room Air 10/02/16 20:00 99.0 95 10 95/52 99 10/02/16 20:00 95 10/02/16 19:00 100 103/55 100 10/02/16 19:00 92 -: 10/03/16 0430 10/03/16 0430 Physical Exam General Appearance: No Acute Distress, Comfortable Eyes Eye Exam: Pupils Equal Throat Throat Exam: Oral Mucosa [place] & Moist Neck Neck Exam: Neck Supple Pulmonary Resp Exam: Breath Sounds Equal, No Distress, Decreased Bases Cardiology CV Exam: Regular, Normal Sinus Rhythm Gastrointestinal/Abdomen GI Exam: Soft, Non-Tender, Bowel Sounds Present, Distended Extremeties Extremities Exam: Moderate Edema, Pitting Edema, Dependent Edema Neurologic Neuro Exam: Alert, Awake, Oriented Psychiatric Psych Exam: Appropriate Responses Assessment/Plan Assessment Summary: Anemia of CKD, Hypotension, End Stage Renal Disease Problem List: (1) Wounds, multiple (2) Chronic back pain (3) Diabetes (4) Malnutrition (5) Anemia in chronic kidney disease (CKD) (6) End stage renal disease on dialysis Plan Patient has now stable Hgb. BP is improving. HD done and 3 liters removed, tolerated well. Continue Epogen with HD. BC growing Staph. coag neg. ID following. Problem Qualifiers (1) Diabetes: (2) Anemia in chronic kidney disease (CKD): Qualified Code: N18.6 - Anemia in chronic kidney disease, on chronic dialysis Valentin Jimenez MD Oct 03, 2016 18:41
--- NOTE | 2016-10-03 20:17 | HHI.CCPN ---
Subjective Remarks/Hospital Course This is a 55-year-old female with history of end-stage renal disease on dialysis TRS who presented for treatment of low hemoglobin. The patient was noted to have symptomatic anemia with a hemoglobin of 6.9 and she was referred to the hospital by by Dr. 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 She denies any abdominal pain, black or tarry stools, hematochezia, hematemesis. She is currently being treated at [facility]. She is being treated for C. difficile . She has been having diarrhea for 3 weeks. She endorses some fatigue. She reports chronic wounds on her buttocks which are being cared for at [facility]. During her workup GI was consulted the patient was scheduled for an EGD today, for anemia. Prior to entering the OR the patient was noted to be initially tachycardic with a heart rate in the 130s and received a liter bolus of LR. Noted to have hypoxemia O2 sat was 93%, and precipitous drop with a systolic blood pressure of 70/30. Critical care medicine was consulted in PACU by Dr. Pacheco for management. Low-dose phenylephrine IV was initiated. A central line and arterial line were placed by anesthesiologist, Dr. Pacheco. Upon my initial assessment in PACU the patient was noted to be semi-recombinant when placed supine patient's blood pressure was 68/34-> 99/39 low-dose phenylephrine was initiated as central line in a line will be placed by Dr. Pacheco. The patient was alert and oriented and complaining of chronic back pain. Subjective: 10/03: The patient continues on Mukesh-Synephrine infusion, unable to wean. Diet advanced a heart healthy. General surgery consulted for wound care, awaiting recommendations. Patient noted to have pre-existing sacral wounds. Diarrhea secondary to C. difficile, fecal containment rectal tube placement, patient complaining of pain. Objective Vital Signs Date Time Temp Pulse Resp B/P Pulse Ox O2 Delivery O2 Flow Rate FiO2 10/03/16 18:00 87 10/03/16 18:00 19 128/69 75 10/03/16 16:00 99.4 10/03/16 07:00 Room Air 10/02/16 17:00 4 10/02/16 15:30 60 Intake and Output 10/02/16 10/02/16 10/02/16 07:59 15:59 23:59 Intake Total 1100 ml 1111 ml Balance 1100 ml 1111 ml Result Diagram: 10/03/1642910/03/16429 Imaging Chest x-ray post central line placement pending Objective Remarks GENERAL: Morbidly obese female, lying supine in bed in mild distress, 2/2 pain SKIN: Warm and dry. HEAD: Atraumatic. Normocephalic. EYES: Pupils equal and round. No scleral icterus. No injection or drainage. ENT: No nasal bleeding or discharge. Mucous membranes pink and moist. Uvula midline. Mallampati class III. Currently on room air NECK: Trachea midline. No JVD. CARDIOVASCULAR: Normal rate, regular rhythm. RESPIRATORY: No accessory muscle use. Clear to auscultation. Breath sounds equal bilaterally. GASTROINTESTINAL: Abdomen soft, non-tender, nondistended. No guarding. MUSCULOSKELETAL: Extremities without clubbing, cyanosis, noticed cellulitis, erythema , scaling . Left arm AV fistula NEUROLOGICAL: Awake and alert. RASS 0. No gross focal/sensory deficits. Follows commands in all 4 extremities. A/P Assessment and Plan Assessment Hypotension most likely secondary to septic shock, and acute blood loss anemia Acute GI bleed Acute on chronic anemia End-stage renal disease Diabetes mellitus Super morbid obesity Chronic pain syndrome Leukocytosis Neurologic: - Neurochecks per ICU protocol -Ofirmev 1 g every 6 hours x 1 additional day -Dilaudid 0.5 mg every 6 hours when necessary for breakthrough pain -Tylenol 650 mg every 6 hours when necessary for temperature greater than 100.5 - Respiratory: -Bronchodilators every 4 hours when necessary for wheezing -Maintain O2 sat greater than 92%, currently on room air -Incentive spirometry every one hour while awake Cardiovascular: -Continue phenylephrine infusion, wean as tolerated -Maintain MAP greater than 65mmHg Renal: -Nephrology Yung -Hemodialysis per nephrology -- Strict I/Os FEN/GI: -Monitor BMP -Heart healthy diet per GI -GI following-Dr. Waldrop-teacher plan for colonoscopy will plan for when patient is hemodynamically stable Heme/ID: - Monitor CBC -C. difficile positive- on Flagyl and vancomycin -ID following Dr. Adorno -Transfuse for hemoglobin less than 8 Endocrine: Glucose monitoring per ICU protocol low dose regimen every 6 hours -- SSI Prophylaxis: GI Prophylaxis Protonix IV DVT Prophylaxis -- SCDs No pharmacological anticoagulation in the setting of possible GI bleed Lines: Peripheral IV. Central line, arterial line per Dr. Osorio, Dispo: Level 3 Discussed with TALENT BUYER, patient and POA (patient's son) at bedside. All questions answered Physician Lashae Gregorio MD Oct 03, 2016 20:17
[2016-10-03] MEDS: ALPRAZolam 0.25 MG TAB PO PRN (21:43)
[2016-10-03] MEDS: ATORVASTATIN 40 MG TAB PO SCH (21:43)
[2016-10-03] MEDS: HYDROmorphone HCL PF 1 MG/ML VIAL IV PUSH PRN (21:54)
[2016-10-04] VITALS (38 sets, daily range): BP systolic 69–119; BP diastolic 52–107; PULSE 75–97; RESP 9–28; TEMP 98–99.3; O2SAT 73–100
[2016-10-04] MEDS: VANCOMYCIN 500 MG VIAL (FOR ORAL USE ONLY) PO SCH ×5 (00:24→22:48)
[2016-10-04] MEDS: metroNIDAZOLE 500 MG INJ 100 ML IV SCH ×3 (00:24→17:26)
[2016-10-04] MEDS: SODIUM CHLOR 0.9% 1000 ML INJ 1,000 ML IV SCH ×2 (00:26→15:02)
[2016-10-04] MEDS: ACETAMINOPHEN 1000 MG/100 ML VIAL IV SCH ×3 (02:54→12:40)
[2016-10-04] MEDS: CHLORHEXIDINE GLUCONATE 2 % 1 PACK (2 CLOTHS) TOP SCH (02:54)
[2016-10-04] MEDS: PHENYLEPHRINE 40 MG/D5W 496 ML ADMIX IV SCH ×4 (04:59→17:25)
[2016-10-04] MEDS: INSULIN ASPART SUPPLEMENTAL SCALE SQ SCH ×4 (05:21→21:00)
[2016-10-04 07:28] LABS: AUTOMATED NEUTROPHIL # 13.9 TH/MM3 (1.8-7.7); BASOPHIL # 0.1 TH/MM3 (0-0.2); BASOPHIL % 0.6 % (0.0-2.0); EOSINOPHIL # 1.5 TH/MM3 (0-0.4); EOSINOPHIL % 8.4 % (0.0-4.0); HEMATOCRIT 28.4 % (35.0-46.0); HEMO FLAGS DIFF FINAL; LYMPH % 9.2 % (9.0-44.0); LYMPHOCYTE # 1.7 TH/MM3 (1.0-4.8); MEAN CELL VOLUME 85.6 FL (80.0-100.0); MEAN CORPUSCULAR HEMOGLOBIN 27.2 PG (27.0-34.0); MEAN CORPUSCULAR HGB CONC 31.8 % (32.0-36.0); MONO % 5.5 % (0.0-8.0); NEUT % 76.3 % (16.0-70.0); PLATELET COUNT 316 TH/MM3 (150-450); RED BLOOD COUNT 3.31 MIL/MM3 (4.00-5.30); RED CELL DISTRIBUTION WIDTH 19.8 % (11.6-17.2); WHITE BLOOD COUNT 18.1 TH/MM3 (4.0-11.0)
[2016-10-04 07:42] LABS: BICARBONATE 24.4 MEQ/L (21.0-32.0); MAGNESIUM 1.6 MG/DL (1.5-2.5); POTASSIUM 3.2 MEQ/L (3.5-5.1)
[2016-10-04 08:10] LABS: CALCIUM-PROTEIN CORRECTED 8.1 MG/DL (8.5-10.1)
[2016-10-04] MEDS: HYDROmorphone HCL PF 1 MG/ML VIAL IV PUSH PRN ×2 (08:53→21:21)
[2016-10-04] MEDS: INSULIN DETEMIR 100 UNITS/ML VIAL SQ SCH (08:58)
[2016-10-04] MEDS: DOCUSATE SODIUM 50 MG/SENNA 8.6 MG TAB PO SCH (09:00)
[2016-10-04] MEDS: THYROID 60 MG TAB PO SCH (09:00)
[2016-10-04] MEDS: CYANOCOBALAMIN 1,000 MCG TAB PO SCH ×2 (09:00→09:04)
[2016-10-04] MEDS: SODIUM CHLORIDE 0.9% FLUSH 10 ML FLUSH IV FLUSH SCH ×2 (09:00→21:20)
[2016-10-04] MEDS: SODIUM HYPOCHLORITE 0.25% 500 ML BTL TOPICAL SCH (09:00)
[2016-10-04] MEDS: CHOLECALCIFEROL (VIT D3) 5000 UNIT CAP PO SCH ×2 (09:00→21:20)
[2016-10-04] MEDS: CALCITRIOL 0.25 MCG CAP PO SCH (09:01)
[2016-10-04] MEDS: CINACALCET HYDROCHLORIDE 30 MG TAB PO SCH (09:01)
[2016-10-04] MEDS: MEGESTROL ACETATE SUSP 400 MG/10 ML CUP PO SCH (09:01)
[2016-10-04] MEDS: ALPRAZolam 0.25 MG TAB PO PRN (09:01)
[2016-10-04] MEDS: ASPIRIN EC 81 MG TABEC PO SCH ×2 (09:01→09:05)
[2016-10-04] MEDS: FIDAXOMICIN 200 MG TAB PO SCH ×2 (09:01→21:20)
[2016-10-04] MEDS: FLUoxetine HCL 20 MG CAP PO SCH (09:01)
[2016-10-04] MEDS: SEVELAMER CARBONATE 800 MG TAB PO SCH ×3 (09:01→17:26)
[2016-10-04] MEDS: GABAPENTIN 100 MG CAP PO SCH ×2 (09:04→21:20)
[2016-10-04] MEDS: PANTOPRAZOLE SODIUM 40 MG VIAL IV SCH (09:04)
--- NOTE | 2016-10-04 09:40 | HHI.PR ---
Subjective Remarks Denies any CP or SOB. Continues to have frequent loose stools rectal tube. Objective Vital Signs Date Time Temp Pulse Resp B/P Pulse Ox O2 Delivery O2 Flow Rate FiO2 10/04/16 09:22 97 Nasal Cannula 2.00 10/04/16 08:00 75 10/04/16 07:00 99.3 83 16 96/65 100 10/04/16 06:00 76 10/04/16 06:00 76 15 103/52 100 10/04/16 05:00 78 18 77/66 100 10/04/16 04:00 99.3 75 16 73/66 100 10/04/16 04:00 75 10/04/16 03:00 80 19 106/56 100 10/04/16 02:20 100 Nasal Cannula 2.00 10/04/16 02:00 82 19 73/68 100 10/04/16 02:00 82 10/04/16 01:00 92 21 105/64 94 10/04/16 00:00 99.0 89 16 114/60 100 10/04/16 00:00 89 10/03/16 23:00 86 5 118/57 100 10/03/16 22:00 91 10 120/58 100 10/03/16 22:00 91 10/03/16 21:14 98 21 10/03/16 21:00 92 10 112/57 95 10/03/16 20:00 98.9 96 21 112/59 94 10/03/16 20:00 96 10/03/16 19:00 Nasal Cannula 2.00 10/03/16 19:00 91 4 115/53 94 10/03/16 18:00 87 10/03/16 18:00 97 19 128/69 75 10/03/16 17:00 85 16 104/53 96 10/03/16 16:00 80 10/03/16 16:00 99.4 85 12 112/57 96 10/03/16 15:00 85 17 102/55 94 10/03/16 14:00 84 10/03/16 14:00 88 14 105/53 94 10/03/16 13:00 95 26 113/61 95 10/03/16 12:00 86 10/03/16 12:00 98.4 91 17 116/65 100 10/03/16 11:00 85 13 116/58 99 10/03/16 10:00 82 10/03/16 10:00 90 19 115/63 99 I/O 10/03/16 10/03/16 10/03/16 10/04/16 10/04/16 10/04/16 07:00 15:00 23:00 07:00 15:00 23:00 Intake Total 1672 ml 1062 ml 950 ml Output Total 3000 ml 350 ml 50 ml Balance -1328 ml 712 ml 900 ml Intake Oral 240 ml 50 ml 50 ml IV Total 1432 ml 1012 ml 900 ml Output Stool Total 50 ml 50 ml Hemodialysis 3000 ml 300 ml # Bowel Movements 1 Result Diagram: 10/04/16 0525 10/04/16 0525 Imaging Last 72 hours Impressions Chest X-Ray 10/02/16 0000 Signed Impressions: Service Date/Time: Sunday, October 02, 2016 15:49 - CONCLUSION: 1. Right IJ central line in good position without evidence for pneumothorax. 2. Cardiomegaly with mild positive fluid balance. 3. Minimal airspace disease in the left lower lung zone, likely atelectasis. Madhav Jacobs MD Objective Remarks GENERAL: Obese. Alert and cooperative SKIN: Warm and dry. Multiple wounds present in Panus and coccyx region HEAD: Normocephalic. EYES: No scleral icterus. No injection or drainage. NECK: Supple, trachea midline. No JVD or lymphadenopathy. CARDIOVASCULAR: Regular rate and rhythm without murmurs, gallops, or rubs. RESPIRATORY: Breath sounds equal bilaterally. No accessory muscle use. GASTROINTESTINAL: Abdomen soft, non-tender, nondistended. MUSCULOSKELETAL: No cyanosis, or edema. BACK: Nontender without obvious deformity. No CVA tenderness. Medications and IVs Current Medications Medications (Trade) Dose Ordered Sig/Soren Route Start Time Stop Time Status Last Admin (Zofran Inj) 4 mg Q6H PRN IVP 09/30/16 20:45 (Narcan Inj) 0.4 mg UNSCH PRN IV 09/30/16 20:45 (Xanax) 0.25 mg Q6H PRN PO 09/30/16 20:45 10/04/16 09:01 (Ecotrin Ec) 81 mg DAILY PO 10/01/16 09:00 10/04/16 09:05 (Lipitor) 40 mg HS PO 09/30/16 21:00 10/03/16 21:43 (Rocaltrol) 0.5 mcg DAILY PO 10/01/16 09:00 10/04/16 09:01 (Vitamin D3) 10,000 units BID PO 09/30/16 21:00 10/04/16 09:00 (Sensipar) 30 mg DAILY PO 10/01/16 09:00 10/04/16 09:01 (Benadryl) 25 mg Q6H PRN PO 09/30/16 20:45 10/04/16 00:27 (Neurontin) 100 mg BID PO 09/30/16 21:00 10/04/16 09:04 (Gelfoam 12 Mm/7 Mm Top) 1 foam UNSCH PRN EXTERNAL 09/30/16 20:45 (Levemir Inj) 10 units DAILY SQ 10/01/16 09:00 10/04/16 08:58 (Antivert) 25 mg TID PRN PO 09/30/16 20:45 (Megace Liq) 400 mg DAILY PO 10/01/16 09:00 10/04/16 09:01 (Zofran Odt) 4 mg Q6HR PRN SL 09/30/16 20:45 (Renvela) 1,600 mg TID PO 10/01/16 09:00 10/04/16 09:01 (Dakin'S 0.25% Soln) 500 ml DAILY TOPICAL 10/01/16 09:00 10/03/16 09:21 ([place] Thyroid) 60 mg DAILY PO 10/01/16 09:00 10/04/16 09:00 (Vitamin B12) 1,000 mcg DAILY PO 10/01/16 09:00 10/04/16 09:04 (Roxicodone) 15 mg Q6H PRN PO 10/01/16 02:00 10/04/16 00:24 (Dificid) 200 mg BID PO 10/01/16 21:00 10/11/16 20:59 10/04/16 09:01 (VANCOMYCIN for oral use only) 500 mg Q6HR PO 10/01/16 18:00 10/04/16 05:16 Fluoxetine HCl 20 mg 20 mg DAILY PO 10/03/16 09:00 10/04/16 09:01 (NS 1000 ml Inj) 1,000 ml @ 84 mls/hr [id number] IV 10/02/16 15:22 10/04/16 00:26 (NS Flush) 2 ml UNSCH PRN IV FLUSH 10/02/16 15:30 (NS Flush) 2 ml BID IV FLUSH 10/02/16 21:00 10/04/16 09:00 (Tylenol) 650 mg Q6HR PRN PO 10/02/16 18:00 (Protonix Inj) 40 mg DAILY IV 10/03/16 09:00 10/04/16 09:04 Miscellaneous Information 1 Q361D XX 10/02/16 15:30 10/03/16 09:40 (Chlorhexidine 2% Cloth) 3 pack Taper DAILY@04 TOP 10/03/16 04:00 09/29/17 03:59 10/04/16 02:54 (Chlorhexidine 2% Cloth) 3 pack UNSCH PRN TOP 10/02/16 15:30 (Luciana-Colace) 1 tab BID PO 10/02/16 21:00 10/04/16 09:00 (Milk Of Magnesia Liq) 30 ml Q12HR PRN PO 10/02/16 21:00 (Senokot) 17.2 mg Q12HR PRN PO 10/02/16 21:00 (Dulcolax Supp) 10 mg DAILY PRN RECTAL 10/02/16 16:00 (Lactulose Liq) 30 ml DAILY PRN PO 10/02/16 16:00 (D50w (Vial) Inj) 50 ml UNSCH PRN IV 10/02/16 15:45 Glucagon 1 mg 1 mg UNSCH PRN OTHER 10/02/16 15:45 Metronidazole 100 ml @ 100 mls/hr Q8H IV 10/02/16 17:00 10/04/16 08:57 (Neosynephrine Inj/D5W 500 ml Inj) 500 ml @ 0 mls/hr TITRATE IV 10/02/16 17:00 10/04/16 04:59 (Brethine Inj) 1 mg UNSCH PRN SQ 10/02/16 17:00 (Ofirmev Inj) 1,000 mg Q6H IV 10/03/16 20:00 10/04/16 19:59 10/04/16 08:56 (Dilaudid Pf Inj) 0.5 mg Q6H PRN IV PUSH 10/03/16 19:45 10/04/16 08:53 Assessment and Plan Problem List: (1) Symptomatic anemia Status: Acute Plan: Transfused 3 units of PRBC initially. HBG stable at 9.0 today GI consulted no obvious signs of bleeding. (2) End stage kidney disease Status: Chronic Plan: Frame Expander consulted. 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 BS 85-125 On SS insulin only (4) Pressure ulcer of coccygeal region Status: Acute Plan: Wound care consulted and managing. On air bed (5) Anxiety Status: Acute Plan: Patient with anxiety and depression. Prozac increased and PRN Xanax available (6) C. difficile diarrhea Status: Acute Plan: ID consulted On oral vancomycin and Dificid. Rectal tube present (7) Bacteremia Status: Acute Plan: Blood cultures with + cocci. Vancomycin ordered and flagyl started. Patient is hypotension on norsynephrine gtt for blood pressure support. Has remained afebrile (8) Hypokalemia Status: Acute Plan: potassium 3.2. Replacement ordered Assessment and Plan Assessment and plan discussed with Dr. Freitas Discussed Condition With Nursing Discharge Planning SNF or acute rehab Physician Attestation I and the YARD SUPERVISOR have both examined this a patient and reviewed this note and I agree with these findings and plan of care. Betty Hood [facility] Oct 04, 2016 09:40
[2016-10-04] MEDS ORDERED: POTASSIUM CHLORIDE 20 MEQ CONTROLLED RELEASE TAB PO ONE (10:30)
[2016-10-04] MEDS: LACTOBACILLUS ACIDOPHILUS 1 GM PACKET PO SCH ×2 (12:42→18:00)
--- NOTE | 2016-10-04 14:53 | HHI.GIFU ---
Subjective Remarks Patient is resting in bed, she now has dignishiled that was inserted last night , brown liquid stools noted. No melena or hematochezia noted. Patient denies nausea, vomiting or abd pain. (Arturo Valentin) Objective Vitals I&O Vital Signs Date Time Temp Pulse Resp B/P Pulse Ox O2 Delivery O2 Flow Rate FiO2 10/04/16 12:00 75 10/04/16 12:00 98.0 95 16 101/75 100 10/04/16 11:00 85 14 95/56 100 10/04/16 10:15 84 14 69/64 100 10/04/16 10:00 75 10/04/16 10:00 82 10 74/52 100 10/04/16 09:45 85 14 91/53 73 10/04/16 09:30 90 13 82/66 99 10/04/16 09:22 97 Nasal Cannula 2.00 10/04/16 09:15 90 20 81/65 100 10/04/16 09:00 90 15 91/66 98 10/04/16 08:45 87 15 117/63 100 10/04/16 08:30 82 9 109/59 100 10/04/16 08:15 90 26 111/62 93 10/04/16 08:00 75 10/04/16 08:00 87 17 117/61 84 10/04/16 08:00 99.3 83 16 96/65 100 10/04/16 07:00 Nasal Cannula 2.00 10/04/16 07:00 99.3 83 16 96/65 100 10/04/16 06:00 76 10/04/16 06:00 76 15 103/52 100 10/04/16 05:00 78 18 77/66 100 10/04/16 04:00 99.3 75 16 73/66 100 10/04/16 04:00 75 10/04/16 03:00 80 19 106/56 100 10/04/16 02:20 100 Nasal Cannula 2.00 10/04/16 02:00 82 19 73/68 100 10/04/16 02:00 82 10/04/16 01:00 92 21 105/64 94 10/04/16 00:00 99.0 89 16 114/60 100 10/04/16 00:00 89 10/03/16 23:00 86 5 118/57 100 10/03/16 22:00 91 10 120/58 100 10/03/16 22:00 91 10/03/16 21:14 98 21 10/03/16 21:00 92 10 112/57 95 10/03/16 20:00 98.9 96 21 112/59 94 10/03/16 20:00 96 10/03/16 19:00 94 Nasal Cannula 2.00 10/03/16 19:00 Nasal Cannula 2.00 10/03/16 19:00 91 4 115/53 94 10/03/16 18:00 87 10/03/16 18:00 97 19 128/69 75 10/03/16 17:00 85 16 104/53 96 10/03/16 16:00 80 10/03/16 16:00 99.4 85 12 112/57 96 10/03/16 15:00 85 17 102/55 94 I/O 10/03/16 10/03/16 10/03/16 10/04/16 10/04/16 10/04/16 07:00 15:00 23:00 07:00 15:00 23:00 Intake Total 1672 ml 1062 ml 950 ml Output Total 3000 ml 350 ml 50 ml Balance -1328 ml 712 ml 900 ml Intake Oral 240 ml 50 ml 50 ml IV Total 1432 ml 1012 ml 900 ml Output Stool Total 50 ml 50 ml Hemodialysis 3000 ml 300 ml # Bowel Movements 1 Laboratory Laboratory Tests Test 10/04/16 05:25 White Blood Count 18.1 Red Blood Count 3.31 Hemoglobin 9.0 Hematocrit 28.4 Mean Corpuscular Volume 85.6 Mean Corpuscular Hemoglobin 27.2 Mean Corpuscular Hemoglobin 31.8 Concent Red Cell Distribution Width 19.8 Platelet Count 316 Mean Platelet Volume 7.7 Neutrophils (%) (Auto) 76.3 Lymphocytes (%) (Auto) 9.2 Monocytes (%) (Auto) 5.5 Eosinophils (%) (Auto) 8.4 Basophils (%) (Auto) 0.6 Neutrophils # (Auto) 13.9 Lymphocytes # (Auto) 1.7 Monocytes # (Auto) 1.0 Eosinophils # (Auto) 1.5 Basophils # (Auto) 0.1 CBC Comment DIFF FINAL Differential Comment Sodium Level 135 Potassium Level 3.2 Chloride Level 99 Carbon Dioxide Level 24.4 Anion Gap 12 Blood Urea Nitrogen 23 Creatinine 3.52 Estimat Glomerular Filtration 13 Rate Random Glucose 103 Calcium Level 7.0 Protein Corrected Calcium 8.1 Phosphorus Level 2.9 Magnesium Level 1.6 Total Protein 5.1 Date/Time Procedure Status Source Growth 09/30/16 20:20 Aerobic Blood Culture - Final Complete Blood Peripheral Staphylococcus Capitis-Capitis Pleomorphic Gram Positive Rods 09/30/16 20:20 Anaerobic Blood Culture - Final Complete Pleomorphic Gram Positive Rods Imaging Last Impressions Chest X-Ray 10/02/16 0000 Signed Impressions: Service Date/Time: Friday, October 02, 2016 15:49 - CONCLUSION: 1. Right IJ central line in good position without evidence for pneumothorax. 2. Cardiomegaly with mild positive fluid balance. 3. Minimal airspace disease in the left lower lung zone, likely atelectasis. Madhav Jacobs MD Physical Exam HEENT: normocephalic; atraumatic; no jaundice. NECK: Neck is supple, no JVD, no lymphadenopathy. CHEST: Chest is clear to auscultation and percussion. CARDIAC: Regular rate and rhythm with no murmur gallop or rubs. ABDOMEN: Soft, obese, nondistended, nontender; no hepatosplenomegaly; bowel sounds are present in all four quadrants. Dignishield with brown stools EXTREMITIES: severe discoloration to BLE SKIN: no jaundice. CAPACITY PLANNING ENGINEER: No focal deficits; alert and oriented times three. (Arturo Valentin) Assessment and Plan Plan - Acute on chronic anemia/ heme (+) stools- S/p EGD on (10/02/16) essentially unremarkable. EGD/colonoscopy on (02/25/11)----> gastritis post lap band, duodenitis, small lipoma in the right colon, internal/external hemorrhoids, bx was benign , she was recommended a 10 yr f/ u. She denies alcohol use or NSAIDs. - Anemia- stable HH no obvious bleeding, most likely multifactorial, this could be anemia of chronic Dz, and possible GI bleed - C-diff X 3 weeks- Flagyl, Dificid, and vanco - ESRD on dialysis - poorly healing open ulcers on buttock area. Wound nurse consulted - Leukocytosis- Blood cx pending, febrile T max 100.0 - Weight loss- She has lost 160 ibs since November of 2015 due to starting dialysis and dieting. - Morbid obesity, DM, per attending Plan: - TRENT - Patient will need colonoscopy when able, this is difficult due to chronic open wounds on buttock - Cont. Dificid 200 mg bid - Cont. Flagyl - Cont. Vanco - Monitor HH - Transfuse as needed - Monitor stools out put - Supportive care - Patient seen and examined by Dr. Waldrop and myself and this note is written on his behalf. (Arturo Valentin) Physician Comments Patient seen and examined Agree with above Continue with current supportive care Monitor labs Not much to add from a GI standpoint We will defer to infectious disease for C. difficile treatment Colonoscopy to be done at some point in the future once her open wounds have healed Therefore we will sign off please reconsult as needed (Raheem Waldrop MD ) Arturo Valentin Oct 04, 2016 14:53 Raheem Waldrop MD Oct 04, 2016 19:54
--- NOTE | 2016-10-04 17:28 | HHI.IDPN ---
Subjective Subjective Remarks doing better low dose pressors (neosynephrine) afebrile Cont to have diarrhea blood clx with different strains of coag neg staph and corynobacteria Antibiotics IV vanco po vanco IV flagyl dificid Past Medical History ESRD/HD Allergies: Coded Allergies: Biaxin (Verified Allergy, Severe, swelling of face, 05/10/16) Iron (Verified Adverse Reaction, Severe, Constipation, 05/10/16) Morphine (Verified Adverse Reaction, Severe, 06/11/16) renal insufficiency. *MDRO Multi-Drug Resistant Organism (Verified Adverse Reaction, Unknown, VRE, MRSA, MDR-Pseudomonas, 09/02/16) VRE (abdominal wound) - 07/09/16 MDR-Pseudomonas (abdominal wound) - 07/09/16 MRSA (abdomen wound) - 08/28/16 Objective . Vital Signs Date Time Temp Pulse Resp B/P Pulse Ox O2 Delivery O2 Flow Rate FiO2 10/04/16 16:00 80 10/04/16 14:45 80 16 78/70 100 10/04/16 14:30 86 18 112/71 89 10/04/16 14:15 84 18 107/70 83 10/04/16 14:00 75 10/04/16 14:00 82 15 106/69 100 10/04/16 13:45 87 25 94/65 97 10/04/16 13:30 87 28 106/71 97 10/04/16 13:15 83 10 94/85 100 10/04/16 13:00 85 12 119/107 100 10/04/16 12:45 86 19 106/66 99 10/04/16 12:30 84 10 71/61 99 10/04/16 12:15 84 21 79/70 97 10/04/16 12:00 81 19 73/67 100 10/04/16 12:00 75 10/04/16 12:00 98.0 95 16 101/75 100 10/04/16 11:00 85 14 95/56 100 10/04/16 10:15 84 14 69/64 100 10/04/16 10:00 75 10/04/16 10:00 82 10 74/52 100 10/04/16 09:45 85 14 91/53 73 10/04/16 09:30 90 13 82/66 99 10/04/16 09:22 97 Nasal Cannula 2.00 10/04/16 09:15 90 20 81/65 100 10/04/16 09:00 90 15 91/66 98 10/04/16 08:45 87 15 117/63 100 10/04/16 08:30 82 9 109/59 100 10/04/16 08:15 90 26 111/62 93 10/04/16 08:00 75 10/04/16 08:00 87 17 117/61 84 10/04/16 08:00 99.3 83 16 96/65 100 10/04/16 07:00 Nasal Cannula 2.00 10/04/16 07:00 99.3 83 16 96/65 100 10/04/16 06:00 76 10/04/16 06:00 76 15 103/52 100 10/04/16 05:00 78 18 77/66 100 10/04/16 04:00 99.3 75 16 73/66 100 10/04/16 04:00 75 10/04/16 03:00 80 19 106/56 100 10/04/16 02:20 100 Nasal Cannula 2.00 10/04/16 02:00 82 19 73/68 100 10/04/16 02:00 82 10/04/16 01:00 92 21 105/64 94 10/04/16 00:00 99.0 89 16 114/60 100 10/04/16 00:00 89 10/03/16 23:00 86 5 118/57 100 10/03/16 22:00 91 10 120/58 100 10/03/16 22:00 91 10/03/16 21:14 98 21 10/03/16 21:00 92 10 112/57 95 10/03/16 20:00 98.9 96 21 112/59 94 10/03/16 20:00 96 10/03/16 19:00 94 Nasal Cannula 2.00 10/03/16 19:00 Nasal Cannula 2.00 10/03/16 19:00 91 4 115/53 94 10/03/16 18:00 87 10/03/16 18:00 97 19 128/69 75 10/03/16 10/03/16 10/04/16 15:00 23:00 07:00 Intake Total 1672 ml 1062 ml 950 ml Output Total 3000 ml 350 ml 50 ml Balance -1328 ml 712 ml 900 ml Intake Oral 240 ml 50 ml 50 ml IV Total 1432 ml 1012 ml 900 ml Output Stool Total 50 ml 50 ml Hemodialysis 3000 ml 300 ml # Bowel Movements 1 . Laboratory Tests Test 10/03/16 10/04/16 04:30 05:25 White Blood Count 21.1 TH/MM3 18.1 TH/MM3 Red Blood Count 3.35 MIL/MM3 3.31 MIL/MM3 Hemoglobin 9.0 GM/DL 9.0 GM/DL Hematocrit 28.5 % 28.4 % Mean Corpuscular Volume 85.1 FL 85.6 FL Mean Corpuscular Hemoglobin 26.8 PG 27.2 PG Mean Corpuscular Hemoglobin 31.5 % 31.8 % Concent Red Cell Distribution Width 19.4 % 19.8 % Platelet Count 363 TH/MM3 316 TH/MM3 Mean Platelet Volume 7.6 FL 7.7 FL Neutrophils (%) (Auto) 72.5 % 76.3 % Lymphocytes (%) (Auto) 11.9 % 9.2 % Monocytes (%) (Auto) 6.2 % 5.5 % Eosinophils (%) (Auto) 9.1 % 8.4 % Basophils (%) (Auto) 0.3 % 0.6 % Neutrophils # (Auto) 15.3 TH/MM3 13.9 TH/MM3 Lymphocytes # (Auto) 2.5 TH/MM3 1.7 TH/MM3 Monocytes # (Auto) 1.3 TH/MM3 1.0 TH/MM3 Eosinophils # (Auto) 1.9 TH/MM3 1.5 TH/MM3 Basophils # (Auto) 0.1 TH/MM3 0.1 TH/MM3 CBC Comment AUTO DIFF DIFF FINAL Differential Total Cells 100 Counted Neutrophils % (Manual) 57 % Band Neutrophils % 15 % Lymphocytes % 10 % Monocytes % 6 % Eosinophils % 11 % Neutrophils # (Manual) 15.4 TH/MM3 Metamyelocytes 1 % Differential Comment FINAL DIFF MANUAL Platelet Estimate NORMAL Platelet Morphology Comment NORMAL Laboratory Tests Test 10/03/16 10/04/16 04:30 05:25 Sodium Level 134 MEQ/L 135 MEQ/L Potassium Level 4.7 MEQ/L 3.2 MEQ/L Chloride Level 100 MEQ/L 99 MEQ/L Carbon Dioxide Level 24.7 MEQ/L 24.4 MEQ/L Anion Gap 9 MEQ/L 12 MEQ/L Blood Urea Nitrogen 35 MG/DL 23 MG/DL Creatinine 4.35 MG/DL 3.52 MG/DL Estimat Glomerular Filtration 11 ML/MIN 13 ML/MIN Rate Random Glucose 77 MG/DL 103 MG/DL Calcium Level 7.5 MG/DL 7.0 MG/DL Phosphorus Level 4.2 MG/DL 2.9 MG/DL Magnesium Level 1.7 MG/DL 1.6 MG/DL Protein Corrected Calcium 8.1 MG/DL Total Protein 5.1 GM/DL Imaging Last Impressions Chest X-Ray 10/02/16 0000 Signed Impressions: Service Date/Time: Sunday, October 02, 2016 15:49 - CONCLUSION: 1. Right IJ central line in good position without evidence for pneumothorax. 2. Cardiomegaly with mild positive fluid balance. 3. Minimal airspace disease in the left lower lung zone, likely atelectasis. Madhav Jacobs MD Physical Exam CONSTITUTIONAL/GENERAL: This is amorbidly obese female patient, in no apparent distress. TUBES/LINES/DRAINS: SKIN: No jaundice, rashes, or lesions. CARDIOVASCULAR: Regular rate and rhythm without murmurs, gallops, or rubs. . RESPIRATORY/CHEST: Symmetric, unlabored respirations. Clear to auscultation. Breath sounds equal bilaterally. No wheezes, rales, or rhonchi. GASTROINTESTINAL: Abdomen soft, non-tender, nondistended. No hepato-splenomegaly , or palpable masses. Bowel sounds present. GENITOURINARY: Without palpable bladder distension. MUSCULOSKELETAL: Extremities without clubbing, cyanosis, or edema. NEUROLOGICAL: awake alert, but slightly slurred speech PSYCHIATRIC: irritable Assessment & Plan Remarks Hypervirulent 027 C.diff strain blood clx with different strains of coag neg staph and corynobacteria, cw contamination Sepsis - likely 2/2 C.diff Chronic wounds - abd wounds are clean with no necrotic tissue L hip wound is a concern over extensve necrosis but no e/o active infx Sacral wound is deep and sows poor healing but no active infx ESRD, HD cont dificid x 10 days conmt vanco oral dc vanco IV cont flagyl IV repeat blood clx - avoid systemic abx dw Bel Levi MD Oct 04, 2016 17:28
--- NOTE | 2016-10-04 18:41 | HHI.CCPN ---
Subjective Remarks/Hospital Course This is a 55-year-old female with history of end-stage renal disease on dialysis TRS who presented for treatment of low hemoglobin. The patient was noted to have symptomatic anemia with a hemoglobin of 6.9 and she was referred to the hospital by by Dr. Jimenez her agile project manager. She denies any abdominal pain, black or tarry stools, hematochezia, hematemesis. She is currently being treated at [facility]. She is being treated for C. difficile . She has been having diarrhea for 3 weeks. She endorses some fatigue. She reports chronic wounds on her buttocks which are being cared for at [facility]. During her workup GI was consulted the patient was scheduled for an EGD today, for anemia. Prior to entering the OR the patient was noted to be initially tachycardic with a heart rate in the 130s and received a liter bolus of LR. Noted to have hypoxemia O2 sat was 93%, and precipitous drop with a systolic blood pressure of 70/30. Critical care medicine was consulted in PACU by Dr. Pacheco for management. Low-dose phenylephrine IV was initiated. A central line and arterial line were placed by anesthesiologist, Dr. Pacheco. Upon my initial assessment in PACU the patient was noted to be semi-recombinant when placed supine patient's blood pressure was 68/34-> 99/39 low-dose phenylephrine was initiated as central line in a line will be placed by Dr. Pacheco. The patient was alert and oriented and complaining of chronic back pain. Subjective: 10/03: The patient continues on Mukesh-Synephrine infusion, unable to wean. Diet advanced a heart healthy. General surgery consulted for wound care, awaiting recommendations. Patient noted to have pre-existing sacral wounds. Diarrhea secondary to C. difficile, fecal containment rectal tube placement, patient complaining of pain. 10/04: Pain well controlled, the patient continues on phenylephrine infusion secondary to hypotension. Hemoglobin stable will continue to monitor. Objective Vital Signs Date Time Temp Pulse Resp B/P Pulse Ox O2 Delivery O2 Flow Rate FiO2 10/04/16 18:00 80 10/04/16 14:45 16 78/70 100 10/04/16 12:00 98.0 10/04/16 09:22 Nasal Cannula 2.00 10/03/16 21:14 21 Intake and Output 10/03/16 10/03/16 10/04/16 08:00 16:00 00:00 Intake Total 1672 ml 1062 ml Output Total 3000 ml 350 ml Balance -1328 ml 712 ml Result Diagram: 10/04/16 0525 10/04/16 0525 Imaging Chest x-ray post central line placement pending Objective Remarks GENERAL: Morbidly obese female, lying supine in bed in no distress SKIN: Warm and dry. HEAD: Atraumatic. Normocephalic. EYES: Pupils equal and round. No scleral icterus. No injection or drainage. ENT: No nasal bleeding or discharge. Mucous membranes pink and moist. Uvula midline. Mallampati class III. Currently on room air NECK: Trachea midline. No JVD. CARDIOVASCULAR: Normal rate, regular rhythm. RESPIRATORY: No accessory muscle use. Clear to auscultation. Breath sounds equal bilaterally. GASTROINTESTINAL: Abdomen soft, non-tender, nondistended. No guarding. MUSCULOSKELETAL: Extremities without clubbing, cyanosis, noted cellulitis, erythema , scaling bilateral lower extremities. Left arm AV fistula NEUROLOGICAL: Awake and alert. RASS 0. No gross focal/sensory deficits. Follows commands in all 4 extremities. A/P Assessment and Plan Assessment Hypotension most likely secondary to septic shock, and acute blood loss anemia Acute GI bleed Acute on chronic anemia End-stage renal disease Diabetes mellitus Super morbid obesity Chronic pain syndrome Leukocytosis Neurologic: - Neurochecks per ICU protocol -Dilaudid 0.5 mg every 6 hours when necessary for breakthrough pain -Tylenol 650 mg every 6 hours when necessary for temperature greater than 100.5 Respiratory: -Bronchodilators every 4 hours when necessary for wheezing -Maintain O2 sat greater than 92%, currently on room air -Incentive spirometry every one hour while awake Cardiovascular: -Continue phenylephrine infusion, wean as tolerated, start Midodrine 10 mg 3 times a day -Maintain MAP greater than 65mmHg Renal: -Nephrology following -Hemodialysis per nephrology -- Strict I/Os FEN/GI: -Monitor BMP -Heart healthy diet per GI -Fecal Containment device for diarrhea -GI following-Dr. Waldrop-teacher plan for colonoscopy will plan for when patient is hemodynamically stable Heme/ID: - Monitor CBC -C. difficile positive- on Flagyl and vancomycin -ID following Dr. Adorno -Transfuse for hemoglobin less than 8 Endocrine: Glucose monitoring per ICU protocol low dose regimen every 6 hours MSK -Pre-existing/prehospitalization large sacral ulcer -Follow-up wound care instructions -- SSI Prophylaxis: GI Prophylaxis Protonix IV DVT Prophylaxis -- SCD's ,Heparin 5000 SQ BID Lines: Peripheral IV. Central line, arterial line per Dr. Osorio, Dispo: Level 3 Discussed with RESIDENTIAL BUILDING INSPECTOR, patient and POA (patient's son) at bedside. All questions answered Physician Lashae Gregorio MD Oct 04, 2016 18:41
[2016-10-04] MEDS: ATORVASTATIN 40 MG TAB PO SCH (21:20)
--- NOTE | 2016-10-04 21:52 | HHI.NPPN ---
Subjective General Problems: Anemia Renal Failure: End Stage Renal Disease History of Present Illness 55-year-old female known to me from before with past medical history of end-stage renal disease on hemodialysis, chronic anemia with recurrent blood transfusion, multiple abdominal wounds with debridement, history of anxiety, depression, arthritis, diabetes mellitus, morbid obesity, hypothyroidism was sent to the hospital because of severe anemia. I was called to see the patient for the management of hemodialysis. She has been on hemodialysis Friday, and Friday. Additional Remarks Patient is alert, feeling better, no dizziness. Review of Systems General Constitutional: Fatigue Respiratory Lungs: SOB Cardiovascular Cardiac: GRIFFIN Gastrointestinal Gastrointestinal: Abdominal Pain, Nausea & Vomiting Objective Data Data 10/03/16 10/04/16 19:00 07:00 Intake Total 1672 ml 2012 ml Output Total 3300 ml 100 ml Balance -1628 ml 1912 ml Intake Oral 240 ml 100 ml IV Total 1432 ml 1912 ml Output Stool Total 100 ml Hemodialysis 3300 ml # Bowel Movements 1 Vital Signs Date Time Temp Pulse Resp B/P Pulse Ox O2 Delivery O2 Flow Rate FiO2 10/04/16 20:50 98 10/04/16 18:00 78 16 90/63 100 10/04/16 18:00 80 10/04/16 16:00 80 10/04/16 14:45 80 16 78/70 100 10/04/16 14:30 86 18 112/71 89 10/04/16 14:15 84 18 107/70 83 10/04/16 14:00 75 10/04/16 14:00 82 15 106/69 100 10/04/16 13:45 87 25 94/65 97 10/04/16 13:30 87 28 106/71 97 10/04/16 13:15 83 10 94/85 100 10/04/16 13:00 85 12 119/107 100 10/04/16 12:45 86 19 106/66 99 10/04/16 12:30 84 10 71/61 99 10/04/16 12:15 84 21 79/70 97 10/04/16 12:00 81 19 73/67 100 10/04/16 12:00 75 10/04/16 12:00 98.0 95 16 101/75 100 10/04/16 11:00 85 14 95/56 100 10/04/16 10:15 84 14 69/64 100 10/04/16 10:00 75 10/04/16 10:00 82 10 74/52 100 10/04/16 09:45 85 14 91/53 73 10/04/16 09:30 90 13 82/66 99 10/04/16 09:22 97 Nasal Cannula 2.00 10/04/16 09:15 90 20 81/65 100 10/04/16 09:00 90 15 91/66 98 10/04/16 08:45 87 15 117/63 100 10/04/16 08:30 82 9 109/59 100 10/04/16 08:15 90 26 111/62 93 10/04/16 08:00 75 10/04/16 08:00 87 17 117/61 84 10/04/16 08:00 99.3 83 16 96/65 100 10/04/16 07:00 Nasal Cannula 2.00 10/04/16 07:00 99.3 83 16 96/65 100 10/04/16 06:00 76 10/04/16 06:00 76 15 103/52 100 10/04/16 05:00 78 18 77/66 100 10/04/16 04:00 99.3 75 16 73/66 100 10/04/16 04:00 75 10/04/16 03:00 80 19 106/56 100 10/04/16 02:20 100 Nasal Cannula 2.00 10/04/16 02:00 82 19 73/68 100 10/04/16 02:00 82 10/04/16 01:00 92 21 105/64 94 10/04/16 00:00 99.0 89 16 114/60 100 10/04/16 00:00 89 10/03/16 23:00 86 5 118/57 100 10/03/16 22:00 91 10 120/58 100 10/03/16 22:00 91 -: 10/04/16 0525 10/04/16 0525 Microbiology 10/04/16 Aerobic Blood Culture, Received Pending 10/04/16 Anaerobic Blood Culture, Received Pending 10/04/16 Aerobic Blood Culture, Received Pending 10/04/16 Anaerobic Blood Culture, Received Pending Physical Exam General Appearance: No Acute Distress, Comfortable Eyes Eye Exam: Pupils Equal Throat Throat Exam: Oral Mucosa [place] & Moist Neck Neck Exam: Neck Supple Pulmonary Resp Exam: Breath Sounds Equal, No Distress, Decreased Bases Cardiology CV Exam: Regular, Normal Sinus Rhythm Gastrointestinal/Abdomen GI Exam: Soft, Non-Tender, Bowel Sounds Present, Distended Extremeties Extremities Exam: Moderate Edema, Pitting Edema, Dependent Edema Neurologic Neuro Exam: Alert, Awake, Oriented Psychiatric Psych Exam: Appropriate Responses Assessment/Plan Assessment Summary: Anemia of CKD, Hypotension, End Stage Renal Disease Problem List: (1) Wounds, multiple (2) Chronic back pain (3) Diabetes (4) Malnutrition (5) Anemia in chronic kidney disease (CKD) (6) End stage renal disease on dialysis Plan Patient has now stable Hgb. BP is still low, started on Midodrine. Continue Epogen with HD. BC growing Staph. coag neg. ID following. On Vanco. and Flagyl for C. difficile. HD will be in AM. Problem Qualifiers (1) Diabetes: (2) Anemia in chronic kidney disease (CKD): Qualified Code: N18.6 - Anemia in chronic kidney disease, on chronic dialysis Valentin Jimenez MD Oct 04, 2016 21:52
[2016-10-04] MEDS: MIDODRINE 5 MG TAB PO SCH (22:48)
[2016-10-05] VITALS (18 sets, daily range): BP systolic 84–128; BP diastolic 55–70; PULSE 74–92; RESP 3–28; TEMP 97.7–100.8; O2SAT 94–99
[2016-10-05] MEDS: SODIUM CHLOR 0.9% 1000 ML INJ 1,000 ML IV SCH (00:47)
[2016-10-05] MEDS: metroNIDAZOLE 500 MG INJ 100 ML IV SCH ×3 (00:47→16:12)
[2016-10-05] MEDS: PHENYLEPHRINE 40 MG/D5W 496 ML ADMIX IV SCH ×6 (00:48→21:33)
[2016-10-05] MEDS: CHLORHEXIDINE GLUCONATE 2 % 1 PACK (2 CLOTHS) TOP SCH (04:00)
[2016-10-05] MEDS: VANCOMYCIN 500 MG VIAL (FOR ORAL USE ONLY) PO SCH ×3 (06:23→17:15)
[2016-10-05] MEDS: MIDODRINE 5 MG TAB PO SCH ×3 (06:23→17:20)
[2016-10-05 06:37] LABS: HEMATOCRIT 28.3 % (35.0-46.0); MEAN CELL VOLUME 85.1 FL (80.0-100.0); MEAN CORPUSCULAR HEMOGLOBIN 27.2 PG (27.0-34.0); MEAN CORPUSCULAR HGB CONC 31.9 % (32.0-36.0); PLATELET COUNT 308 TH/MM3 (150-450); RED BLOOD COUNT 3.33 MIL/MM3 (4.00-5.30); RED CELL DISTRIBUTION WIDTH 19.5 % (11.6-17.2); REVIEW FLAG FINAL; WHITE BLOOD COUNT 18.3 TH/MM3 (4.0-11.0)
[2016-10-05 06:54] LABS: BICARBONATE 19.8 MEQ/L (21.0-32.0); MAGNESIUM 1.6 MG/DL (1.5-2.5); POTASSIUM 3.4 MEQ/L (3.5-5.1)
[2016-10-05] MEDS: INSULIN ASPART SUPPLEMENTAL SCALE SQ SCH ×4 (07:00→21:31)
[2016-10-05] MEDS: CALCITRIOL 0.25 MCG CAP PO SCH (09:00)
[2016-10-05] MEDS: INSULIN DETEMIR 100 UNITS/ML VIAL SQ SCH (09:00)
[2016-10-05] MEDS: SEVELAMER CARBONATE 800 MG TAB PO SCH ×3 (09:00→17:14)
[2016-10-05] MEDS: FLUoxetine HCL 20 MG CAP PO SCH (09:00)
[2016-10-05] MEDS: FIDAXOMICIN 200 MG TAB PO SCH ×2 (09:00→21:26)
[2016-10-05] MEDS: SODIUM CHLORIDE 0.9% FLUSH 10 ML FLUSH IV FLUSH SCH ×2 (09:00→21:26)
[2016-10-05] MEDS: THYROID 60 MG TAB PO SCH (09:00)
[2016-10-05] MEDS: LACTOBACILLUS ACIDOPHILUS 1 GM PACKET PO SCH (09:00)
[2016-10-05] MEDS: CHOLECALCIFEROL (VIT D3) 5000 UNIT CAP PO SCH ×2 (09:00→21:26)
[2016-10-05] MEDS: PANTOPRAZOLE SODIUM 40 MG VIAL IV SCH (09:00)
[2016-10-05] MEDS: CINACALCET HYDROCHLORIDE 30 MG TAB PO SCH (09:00)
[2016-10-05] MEDS: SODIUM HYPOCHLORITE 0.25% 500 ML BTL TOPICAL SCH (09:00)
[2016-10-05] MEDS: GABAPENTIN 100 MG CAP PO SCH ×2 (09:00→21:26)
[2016-10-05] MEDS ORDERED: ACETAMINOPHEN 325 MG TAB PO PRN (11:00)
[2016-10-05] MEDS ORDERED: ONDANSETRON HCL 4 MG/2 ML VIAL IV PRN (11:00)
[2016-10-05] MEDS ORDERED: SODIUM CHLORIDE 0.9% FLUSH 10 ML FLUSH IV FLUSH PRN (11:00)
[2016-10-05] MEDS ORDERED: GENTAMICIN SULFATE (DIALYSIS USE ONLY) 20 MG/2 ML VIAL OTHER PRN (11:00)
[2016-10-05] MEDS ORDERED: NITROGLYCERIN 0.4 MG SL 25 TABS/BTL SL PRN (11:00)
[2016-10-05] MEDS ORDERED: EPOETIN ALFA 10,000 UNITS/ML VIAL IV PRN (11:00)
[2016-10-05] MEDS ORDERED: HEPARIN SODIUM - IV 10,000 UNITS/10 ML VIAL OTHER PRN (11:00)
[2016-10-05] MEDS ORDERED: NS 250 ML IV PRN (11:00)
[2016-10-05] MEDS ORDERED: MANNITOL 12.5 GM/50 ML VIAL IV PRN (11:00)
[2016-10-05] MEDS ORDERED: cloNIDine HCL 0.1 MG TAB PO PRN (11:00)
[2016-10-05] MEDS ORDERED: diphenhydrAMINE HCL 25 MG CAP PO PRN (11:00)
[2016-10-05] MEDS ORDERED: SODIUM CHLOR 0.9% 1000 ML IV PRN ×2 (11:00)
[2016-10-05] MEDS ORDERED: GELATIN 12 MM/7 MM FOAM TOPICAL PRN (11:00)
[2016-10-05] MEDS ORDERED: HEPARIN SODIUM - IV 10,000 UNITS/10 ML VIAL IV FLUSH PRN (11:00)
[2016-10-05] MEDS ORDERED: ALBUMIN HUMAN 25% 25 GM/100 ML BAGP IV PRN (11:00)
--- NOTE | 2016-10-05 11:22 | HHI.PR ---
Subjective Remarks more comfortable today cultures pending on dialysis tangela has decided to decline hospice with the expectation that she will need to be compliant with her medications and treatments if she is to continue acute care Objective Vital Signs Date Time Temp Pulse Resp B/P Pulse Ox O2 Delivery O2 Flow Rate FiO2 10/05/16 06:00 81 10/05/16 04:00 99.0 80 18 128/70 95 10/05/16 04:00 80 10/05/16 02:00 82 10/05/16 00:00 98.4 86 9 96/61 94 10/05/16 00:00 86 10/04/16 22:00 97 10/04/16 20:50 98 10/04/16 20:00 81 10/04/16 20:00 99.0 81 18 89/64 96 10/04/16 19:00 96 Room Air 10/04/16 18:00 78 16 90/63 100 10/04/16 18:00 80 10/04/16 16:00 80 10/04/16 14:45 80 16 78/70 100 10/04/16 14:30 86 18 112/71 89 10/04/16 14:15 84 18 107/70 83 10/04/16 14:00 75 10/04/16 14:00 82 15 106/69 100 10/04/16 13:45 87 25 94/65 97 10/04/16 13:30 87 28 106/71 97 10/04/16 13:15 83 10 94/85 100 10/04/16 13:00 85 12 119/107 100 10/04/16 12:45 86 19 106/66 99 10/04/16 12:30 84 10 71/61 99 10/04/16 12:15 84 21 79/70 97 10/04/16 12:00 81 19 73/67 100 10/04/16 12:00 75 10/04/16 12:00 98.0 95 16 101/75 100 I/O 10/04/16 10/04/16 10/04/16 10/05/16 10/05/16 10/05/16 06:59 14:59 22:59 06:59 14:59 22:59 Intake Total 950 ml 1698 ml 1026 ml 788 ml Output Total 50 ml 100 ml 100 ml 100 ml 3000 ml Balance 900 ml 1598 ml 926 ml 688 ml -3000 ml Intake Oral 50 ml 320 ml 0 ml IV Total 900 ml 1378 ml 1026 ml 788 ml Output Urine Total 0 ml Stool Total 50 ml 100 ml 100 ml 100 ml Hemodialysis 3000 ml # Voids 0 Result Diagram: 10/05/1660110/05/16601 Objective Remarks GENERAL: Well-nourished, well-developed patient.morbidly obese with multiple wounds bed bound SKIN: Warm and dry. HEAD: Normocephalic. EYES: No scleral icterus. No injection or drainage. NECK: Supple, trachea midline. No JVD or lymphadenopathy. CARDIOVASCULAR: Regular rate and rhythm without murmurs, gallops, or rubs. RESPIRATORY: Breath sounds equal bilaterally. No accessory muscle use. GASTROINTESTINAL: Abdomen soft, morbidly obese with panulus ulcers EXTREMITIES: No cyanosis, or 3plus edema with placquing NEUROLOGICAL: Awake, alert, and oriented x 3. Non-focal. coccyx with massive deep 3-4 decubidi Medications and IVs Inpatient Medications Acetaminophen (Ofirmev Inj) 1,000 mg Q6H IV Last administered on 10/04/16 12: 40; Start 10/03/16 at 20:00; Stop 10/04/16 at 19:59; Status DC Acetaminophen (Tylenol) 650 mg UNSCH X1 PRN PO WITH DIALYSIS; Start 10/05/16 at 11:00; Stop 10/07/16 at 23:59 Albumin Human (Albumin 25% Inj) 25 gm UNSCH PRN IV WITH DIALYSIS; Start at 11:00 Albuterol/ Ipratropium (Duoneb Neb) 1 ampule Q4HR NEB PRN INH WHEEZING; Start 10/02/16 at 16:00 Alprazolam (Xanax) 0.25 mg Q6H PRN PO ANXIETY Last administered on 10/04/16 09 :01; Start 09/30/16 at 20:45 Aspirin (Ecotrin Ec) 81 mg DAILY PO Last administered on 10/04/16 09:05; Start 10/01/16 at 09:00 Atorvastatin Calcium (Lipitor) 40 mg HS PO Last administered on 10/04/16 21:20 ; Start 09/30/16 at 21:00 Bisacodyl (Dulcolax Supp) 10 mg DAILY PRN RECTAL SEVERE CONSITIPATION; Start at 16:00 Calcitriol (Rocaltrol) 0.5 mcg DAILY PO Last administered on 10/05/16 09:00; Start 10/01/16 at 09:00 Chlorhexidine Gluconate (Chlorhexidine 2% Cloth) 3 pack UNSCH PRN TOP HYGIENIC CARE; Start 10/02/16 at 15:30 Cholecalciferol (Vitamin D3) 10,000 units BID PO Last administered on 09:00; Start 09/30/16 at 21:00 Cinacalcet (Sensipar) 30 mg DAILY PO Last administered on 10/05/16 09:00; Start 10/01/16 at 09:00 Clonidine (Catapres) 0.1 mg UNSCH PRN PO WITH DIALYSIS; Start 10/05/16 at 11:00 Cyanocobalamin (Vitamin B12) 1,000 mcg DAILY PO Last administered on 10/04/16 09:04; Start 10/01/16 at 09:00 Dextrose (D50w (Vial) Inj) 50 ml UNSCH PRN IV HYPOGLYCEMIA-SEE COMMENTS; Start 10/02/16 at 15:45 Diphenhydramine HCl (Benadryl) 25 mg UNSCH PRN PO WITH DIALYSIS; Start at 11:00 Epinephrine HCl (Adrenalin (1:1000) Inj) 0.3 mg ONCE PRN IV PUSH ALLERGIC REACTION; Start 09/30/16 at 20:45; Stop 10/03/16 at 20:44; Status DC Epoetin Porter (Epogen Inj) 10,000 units UNSCH PRN IV WITH DIALYSIS Last administered on 10/05/16 10:47; Start 10/05/16 at 11:00 Fidaxomicin (Dificid) 200 mg BID PO Last administered on 10/05/16 09:00; Start 10/01/16 at 21:00; Stop 10/11/16 at 20:59 Fluoxetine HCl (PROzac) 20 mg DAILY PO Last administered on 10/05/16 09:00; Start 10/03/16 at 09:00 Gabapentin (Neurontin) 100 mg BID PO Last administered on 10/05/16 09:00; Start 09/30/16 at 21:00 Gelatin (Gelfoam 12 Mm/7 Mm Top) 1 foam UNSCH PRN TOPICAL WITH DIALYSIS; Start 10/05/16 at 11:00 Gentamicin Sulfate (Gentamicin (Dialysis) Inj) 10 mg UNSCH PRN OTHER WITH DIALYSIS Last administered on 10/05/16 10:47; Start 10/05/16 at 11:00 Glucagon (Glucagon Inj) 1 mg UNSCH PRN OTHER HYPOGLYCEMIA-SEE COMMENTS; Start 10/01/16 at 16:30; Stop 10/02/16 at 15:40; Status DC Glucagon 1 mg 1 mg UNSCH PRN OTHER HYPOGLYCEMIA-SEE COMMENTS; Start 10/02/16 at 15:45 Heparin Sodium (Porcine) (Heparin Inj) Dwell Heparin to f... UNSCH PRN OTHER WITH DIALYSIS Last administered on 10/05/16 10:47; Start 10/05/16 at 11:00 Heparin Sodium (Porcine) 8000 units 8,000 units UNSCH PRN IV FLUSH WITH DIALYSIS; Start 10/05/16 at 11:00 Hydrocortisone Sodium Succinate (SoluCORTEF INJ) 250 mg ONCE PRN IV PUSH ALLERGIC REACTION; Start 09/30/16 at 20:45; Stop 10/03/16 at 20:44; Status DC Hydromorphone HCl (Dilaudid Pf Inj) 0.5 mg Q6H PRN IV PUSH PAIN SCALE 7 TO 10 Last administered on 10/04/16 21:21; Start 10/03/16 at 19:45 Insulin Aspart (NovoLOG SUPPLEMENTAL SCALE) 1 ACHS SLIDING SCALE SQ ; Start at 16:00 Insulin Detemir (Levemir Inj) 10 units DAILY SQ Last administered on 10/05/16 09:00; Start 10/01/16 at 09:00 Lactated Ringer's 500 ml @ 0 mls/hr BOLUS ONCE IV Last administered on 14:30; Start 10/02/16 at 17:00; Stop 10/02/16 at 17:01; Status DC Lactobacillus Acidophilus (Lactinex Pkt) 1 gm TID PO Last administered on 09:00; Start 10/04/16 at 13:00 Lactulose (Lactulose Liq) 30 ml DAILY PRN PO SEVERE CONSITIPATION; Start at 16:00; Stop 10/04/16 at 09:44; Status DC Magnesium Hydroxide (Milk Of Magnesia Liq) 30 ml Q12HR PRN PO MILD - MODERATE CONSTIPATION; Start 10/02/16 at 21:00; Stop 10/04/16 at 09:44; Status DC Mannitol (Mannitol Inj) 12.5 gm UNSCH PRN IV WITH DIALYSIS; Start 10/05/16 at 11:00 Meclizine HCl (Antivert) 25 mg TID PRN PO VERTIGO; Start 09/30/16 at 20:45 Megestrol Acetate (Megace Liq) 400 mg DAILY PO Last administered on 10/04/16 09:01; Start 10/01/16 at 09:00; Stop 10/04/16 at 09:44; Status DC Metoprolol Tartrate 5 mg 5 mg NOW ONCE IV PUSH ; Start 10/02/16 at 17:00; Stop 10/02/16 at 17:01; Status DC Metronidazole (Flagyl 500 Mg Inj) 100 ml @ 100 mls/hr Q8H IV Last administered on 10/05/16 09:00; Start 10/02/16 at 17:00 Midodrine 10 mg 10 mg TID@07,12,19 PO Last administered on 10/05/16 06:23; Start 10/04/16 at 19:00 Miscellaneous Information 1 [id number] XX Last administered on 10/03/16 09:40; Start 10/02/16 at 15:30 Naloxone HCl (Narcan Inj) 0.4 mg UNSCH PRN IV SEE LABEL COMMENTS; Start at 20:45 Nitroglycerin (Nitrostat Sl) 0.4 mg UNSCH PRN SL WITH DIALYSIS; Start 10/05/16 at 11:00 Ondansetron HCl (Zofran Odt) 4 mg Q6HR PRN SL Nausea/Vomiting; Start 09/30/16 at 20:45 Ondansetron HCl (Zofran Inj) 4 mg UNSCH PRN IV NAUSEA OR VOMITING; Start at 11:00 Oxybutynin Chloride (Ditropan) 15 mg Q6H PRN PO PAIN 1-10; Start 10/01/16 at 02 :00; Stop 10/01/16 at 02:00; Status DC Oxycodone HCl (Roxicodone) 15 mg Q6H PRN PO PAIN 1-10 Last administered on 10/05 06:48; Start 10/01/16 at 02:00 Pantoprazole Sodium (Protonix Inj) 40 mg DAILY IV Last administered on 09:00; Start 10/03/16 at 09:00 Phenylephrine HCl/ Dextrose (Neosynephrine Inj/D5W 500 ml Inj) 500 ml @ 0 mls/ hr TITRATE IV Last administered on 10/05/16 00:48; Start 10/02/16 at 17:00 Potassium Chloride 20 meq 20 meq ONCE ONCE PO Last administered on 10/02/16 11:53; Start 10/02/16 at 09:45; Stop 10/02/16 at 09:46; Status DC Potassium Chloride (KCl) 20 meq ONCE ONCE PO Last administered on 10/04/16 10 :47; Start 10/04/16 at 10:30; Stop 10/04/16 at 10:31; Status DC Senna/Docusate Sodium (Luciana-Colace) 1 tab BID PO Last administered on 09:00; Start 10/02/16 at 21:00; Stop 10/04/16 at 09:44; Status DC Sennosides (Senokot) 17.2 mg Q12HR PRN PO MODERATE - SEVERE CONSTIPATION; Start 10/02/16 at 21:00; Stop 10/04/16 at 09:44; Status DC Sevelamer Carbonate (Renvela) 1,600 mg TID PO Last administered on 10/05/16 09 :00; Start 10/01/16 at 09:00 Sodium Hypochlorite (Dakin'S 0.25% Soln) 500 ml DAILY TOPICAL Last administered on 10/05/16 09:00; Start 10/01/16 at 09:00 Sodium Chloride (NS 1000 ml Inj) 1,000 ml @ 0 mls/hr TITRATE PRN IV WITH DIALYSIS Last administered on 10/05/16 10:48; Start 10/05/16 at 11:00 Sodium Chloride (NS 250 ml Inj) 200 ml @ 0 mls/hr UNSCH PRN IV WITH DIALYSIS; Start 10/05/16 at 11:00 Sodium Chloride (NS 500 ml Inj) 500 ml @ 500 mls/hr BOLUS ONCE IV ; Start at 20:00; Stop 09/30/16 at 20:00; Status DC Sodium Chloride (NS Flush) 5 ml UNSCH PRN IV FLUSH WITH DIALYSIS; Start at 11:00 Terbutaline Sulfate (Brethine Inj) 1 mg UNSCH PRN SQ FOR EXTRAVASATION PROTOCOL ; Start 10/02/16 at 17:00 Thyroid ([place] Thyroid) 60 mg DAILY PO Last administered on 10/05/16 09:00; Start 10/01/16 at 09:00 Vancomycin HCl (VANCOMYCIN for oral use only) 500 mg Q6HR PO Last administered on 10/05/16 06:23; Start 10/01/16 at 18:00 Vancomycin HCl 1500 mg/Sodium Chloride 515 ml @ 250 mls/hr ONCE ONCE IV ; Start 10/02/16 at 11:30; Stop 10/02/16 at 13:33; Status DC Vancomycin HCl/ Sodium Chloride (Vancomycin Inj/ NS 250 ml Inj) 250 ml @ 250 mls/hr WITH DIALYSIS IV Last administered on 10/03/16 08:47; Start 10/02/16 at 11:15; Stop 10/04/16 at 17:29; Status DC Assessment and Plan Problem List: (1) Wound dehiscence, surgical Status: Acute Plan: continue wound care and antibiotic therapy (2) Hx of Clostridium difficile infection Status: Acute Plan: continue vancomycin (3) End stage kidney disease Status: Chronic Plan: continue dialysis (4) Wounds, multiple Status: Acute (5) Diabetes Status: Acute Plan: continue to moniter blood sugars and adjust insuline Assessment and Plan pt to transfer to [facility] on friday if stable Discharge Planning LT select Problem Qualifiers (1) Diabetes: Lucas Freitas DO Oct 05, 2016 11:21
--- NOTE | 2016-10-05 11:25 | HHI.NPPN ---
Subjective General Problems: Anemia Renal Failure: End Stage Renal Disease History of Present Illness 55-year-old female known to me from before with past medical history of end-stage renal disease on hemodialysis, chronic anemia with recurrent blood transfusion, multiple abdominal wounds with debridement, history of anxiety, depression, arthritis, diabetes mellitus, morbid obesity, hypothyroidism was sent to the hospital because of severe anemia. I was called to see the patient for the management of hemodialysis. She has been on hemodialysis Friday, and Friday. Additional Remarks Patient is alert, feeling better, no dizziness. Review of Systems General Constitutional: Fatigue Respiratory Lungs: SOB Cardiovascular Cardiac: GRIFFIN Gastrointestinal Gastrointestinal: Abdominal Pain, Nausea & Vomiting Objective Data Data 10/04/16 10/05/16 19:00 07:00 Intake Total 1698 ml 1814 ml Output Total 100 ml 200 ml Balance 1598 ml 1614 ml Intake Oral 320 ml 0 ml IV Total 1378 ml 1814 ml Output Urine Total 0 ml Stool Total 100 ml 200 ml # Voids 0 Vital Signs Date Time Temp Pulse Resp B/P Pulse Ox O2 Delivery O2 Flow Rate FiO2 10/05/16 06:00 81 10/05/16 04:00 99.0 80 18 128/70 95 10/05/16 04:00 80 10/05/16 02:00 82 10/05/16 00:00 98.4 86 9 96/61 94 10/05/16 00:00 86 10/04/16 22:00 97 10/04/16 20:50 98 10/04/16 20:00 81 10/04/16 20:00 99.0 81 18 89/64 96 10/04/16 19:00 96 Room Air 10/04/16 18:00 78 16 90/63 100 10/04/16 18:00 80 10/04/16 16:00 80 10/04/16 14:45 80 16 78/70 100 10/04/16 14:30 86 18 112/71 89 10/04/16 14:15 84 18 107/70 83 10/04/16 14:00 75 10/04/16 14:00 82 15 106/69 100 10/04/16 13:45 87 25 94/65 97 10/04/16 13:30 87 28 106/71 97 10/04/16 13:15 83 10 94/85 100 10/04/16 13:00 85 12 119/107 100 10/04/16 12:45 86 19 106/66 99 10/04/16 12:30 84 10 71/61 99 10/04/16 12:15 84 21 79/70 97 10/04/16 12:00 81 19 73/67 100 10/04/16 12:00 75 10/04/16 12:00 98.0 95 16 101/75 100 -: 10/05/16 0602 10/05/16 0602 Microbiology 10/04/16 Aerobic Blood Culture - Preliminary, Resulted NO GROWTH IN 1 DAY 10/04/16 Anaerobic Blood Culture - Preliminary, Resulted NO GROWTH IN 1 DAY 10/04/16 Aerobic Blood Culture - Preliminary, Resulted NO GROWTH IN 1 DAY 10/04/16 Anaerobic Blood Culture - Preliminary, Resulted NO GROWTH IN 1 DAY Physical Exam General Appearance: No Acute Distress, Comfortable Eyes Eye Exam: Pupils Equal Throat Throat Exam: Oral Mucosa [place] & Moist Neck Neck Exam: Neck Supple Pulmonary Resp Exam: Breath Sounds Equal, No Distress, Decreased Bases Cardiology CV Exam: Regular, Normal Sinus Rhythm Gastrointestinal/Abdomen GI Exam: Soft, Non-Tender, Bowel Sounds Present, Distended Extremeties Extremities Exam: Moderate Edema, Pitting Edema, Dependent Edema Neurologic Neuro Exam: Alert, Awake, Oriented Psychiatric Psych Exam: Appropriate Responses Assessment/Plan Assessment Summary: Anemia of CKD, Hypotension, End Stage Renal Disease Problem List: (1) Wounds, multiple (2) Chronic back pain (3) Diabetes (4) Malnutrition (5) Anemia in chronic kidney disease (CKD) (6) End stage renal disease on dialysis Plan K Low replace Patient has now stable Hgb. C Diff colitis on PO Vancomycin seen at dialysis UF 3 L BP is still low, started on Midodrine. Continue Epogen with HD. BC growing Staph. coag neg. ID following. On Vanco. and Flagyl for C. difficile. Problem Qualifiers (1) Diabetes: (2) Anemia in chronic kidney disease (CKD): Qualified Code: N18.6 - Anemia in chronic kidney disease, on chronic dialysis Jessie Birmingham MD Oct 05, 2016 11:25
[2016-10-05] MEDS: LACTOBACILLUS ACIDOPHILUS TAB PO SCH ×2 (12:10→17:15)
[2016-10-05] MEDS ORDERED: POTASSIUM CHLORIDE 10 MEQ CONTROLLED RELEASE TAB PO ONE (13:00)
[2016-10-05] MEDS: HYDROmorphone HCL PF 1 MG/ML VIAL IV PUSH PRN ×2 (16:12→21:45)
--- NOTE | 2016-10-05 16:41 | HHI.CCPN ---
Subjective Remarks/Hospital Course This is a 55-year-old female with history of end-stage renal disease on dialysis TRS who presented for treatment of low hemoglobin. The patient was noted to have symptomatic anemia with a hemoglobin of 6.9 and she was referred to the hospital by by Dr. Jimenez her provisioning specialist. She denies any abdominal pain, black or tarry stools, hematochezia, hematemesis. She is currently being treated at [facility]. She is being treated for C. difficile . She has been having diarrhea for 3 weeks. She endorses some fatigue. She reports chronic wounds on her buttocks which are being cared for at [facility]. During her workup GI was consulted the patient was scheduled for an EGD today, for anemia. Prior to entering the OR the patient was noted to be initially tachycardic with a heart rate in the 130s and received a liter bolus of LR. Noted to have hypoxemia O2 sat was 93%, and precipitous drop with a systolic blood pressure of 70/30. Critical care medicine was consulted in PACU by Dr. Pacheco for management. Low-dose phenylephrine IV was initiated. A central line and arterial line were placed by anesthesiologist, Dr. Pacheco. Upon my initial assessment in PACU the patient was noted to be semi-recombinant when placed supine patient's blood pressure was 68/34-> 99/39 low-dose phenylephrine was initiated as central line in a line will be placed by Dr. Pacheco. The patient was alert and oriented and complaining of chronic back pain. Subjective: 10/03: The patient continues on Mukesh-Synephrine infusion, unable to wean. Diet advanced a heart healthy. General surgery consulted for wound care, awaiting recommendations. Patient noted to have pre-existing sacral wounds. Diarrhea secondary to C. difficile, fecal containment rectal tube placement, patient complaining of pain. 10/04: Pain well controlled, the patient continues on phenylephrine infusion secondary to hypotension. Hemoglobin stable will continue to monitor. 10/05:Afebrile. The patient was restarted on Midodrine TID, still unable wean Phenylephrine.Discussion with Dr. Freitas (patient's personal physician), and dialysis nurse. The patient's MAP normally is less than 60mmHg. Patient's systolic blood pressure normally ranges in low 90s. Pain well controlled. Objective Vital Signs Date Time Temp Pulse Resp B/P Pulse Ox O2 Delivery O2 Flow Rate FiO2 10/05/16 15:00 82 18 114/62 96 10/05/16 12:00 98.6 10/05/16 07:00 Room Air 10/04/16 09:22 2.00 10/03/16 21:14 21 Intake and Output 10/04/16 10/04/16 10/05/16 08:00 16:00 00:00 Intake Total 950 ml 1698 ml 1026 ml Output Total 50 ml 100 ml 100 ml Balance 900 ml 1598 ml 926 ml Result Diagram: 10/05/16 0602 10/05/16 0602 Objective Remarks GENERAL: Morbidly obese female, lying semi-recumbent in bed in no distress SKIN: Warm and dry. HEAD: Atraumatic. Normocephalic. EYES: Pupils equal and round. No scleral icterus. No injection or drainage. ENT: No nasal bleeding or discharge. Mucous membranes pink and moist. Uvula midline. Mallampati class III. Currently on room air NECK: Trachea midline. No JVD. CARDIOVASCULAR: Normal rate, regular rhythm. RESPIRATORY: No accessory muscle use. Clear to auscultation. Breath sounds equal bilaterally. Room air GASTROINTESTINAL: Abdomen soft, non-tender, nondistended. No guarding. MUSCULOSKELETAL: Extremities without clubbing, cyanosis, noted cellulitis, erythema , scaling bilateral lower extremities. Left arm AV fistula NEUROLOGICAL: Awake and alert. RASS 0. No gross focal/sensory deficits. Follows commands in all 4 extremities. A/P Assessment and Plan Assessment Hypotension most likely secondary to septic shock, and acute blood loss anemia Acute GI bleed Acute on chronic anemia End-stage renal disease Diabetes mellitus Super morbid obesity Chronic pain syndrome Persistent Leukocytosis Neurologic: - Neurochecks per ICU protocol -Dilaudid 0.5 mg every 6 hours when necessary for breakthrough pain -Tylenol 650 mg every 6 hours when necessary for temperature greater than 100.5 Respiratory: -Bronchodilators every 4 hours when necessary for wheezing -Maintain O2 sat greater than 92%, currently on room air -Incentive spirometry every one hour while awake Cardiovascular: -Continue phenylephrine infusion, wean as tolerated -10/05 Midodrine 10 mg 3 times a day -Maintain MAP greater than 60mmHg Renal: -Nephrology Yung -Hemodialysis per nephrology -- Strict I/Os FEN/GI: -Monitor BMP -Heart healthy diet per GI -Fecal Containment device for diarrhea -GI following-Dr. Waldrop-tenative plan for colonoscopy ,will plan for when patient is hemodynamically stable Heme/ID: - Monitor CBC -09/27 C. difficile positive- on Flagyl and vancomycin -09/30 Blood culture-staph capitis, staph auricularis -ID following Dr. Adorno -Transfuse for hemoglobin less than 8 Endocrine: Glucose monitoring per ICU protocol low dose regimen every 6 hours MSK -Pre-existing/prehospitalization large sacral ulcer -Follow-up wound care instructions -- SSI Prophylaxis: GI Prophylaxis Protonix IV DVT Prophylaxis -- SCD's ,Heparin 5000 SQ BID Lines: Peripheral IV. Central line, arterial line per Dr. Osorio, Dispo: Level 3 Discussed with CLIENT RELATIONSHIP EXECUTIVE, patient and POA (patient's son) at bedside. All questions answered. Continue to wean off phenylephrine, possible plan for transfer [facility] Physician Lashae Gregorio MD Oct 05, 2016 16:41
[2016-10-05] MEDS: MAGNESIUM SULFATE 1 GM PREMIX 100 ML IV SCH ×2 (17:14→18:00)
--- NOTE | 2016-10-05 19:42 | HHI.IDPN ---
Subjective Subjective Remarks having fever up to 100.8 off pressors repeat blood clx neg @ 1 day afebrile Cont to have large voluime diarrhea blood clx with different strains of coag neg staph and corynobacteria Antibiotics IV vanco po vanco IV flagyl dificid Past Medical History ESRD/HD Allergies: Coded Allergies: Biaxin (Verified Allergy, Severe, swelling of face, 05/10/16) Iron (Verified Adverse Reaction, Severe, Constipation, 05/10/16) Morphine (Verified Adverse Reaction, Severe, 06/11/16) renal insufficiency. *MDRO Multi-Drug Resistant Organism (Verified Adverse Reaction, Unknown, VRE, MRSA, MDR-Pseudomonas, 09/02/16) VRE (abdominal wound) - 07/09/16 MDR-Pseudomonas (abdominal wound) - 07/09/16 MRSA (abdomen wound) - 08/28/16 Objective . Vital Signs Date Time Temp Pulse Resp B/P Pulse Ox O2 Delivery O2 Flow Rate FiO2 10/05/16 18:00 80 13 104/61 96 10/05/16 17:00 87 3 107/58 95 10/05/16 16:00 100.8 83 17 126/67 97 10/05/16 15:00 82 18 114/62 96 10/05/16 14:00 83 18 107/59 95 10/05/16 13:00 92 7 122/62 95 10/05/16 12:00 98.6 89 14 106/58 96 10/05/16 11:00 86 18 84/55 99 10/05/16 10:00 88 19 100/56 97 10/05/16 09:00 92 28 111/61 96 10/05/16 08:00 97.7 82 9 117/61 95 10/05/16 07:00 Room Air 10/05/16 06:00 81 10/05/16 04:00 99.0 80 18 128/70 95 10/05/16 04:00 80 10/05/16 02:00 82 10/05/16 00:00 98.4 86 9 96/61 94 10/05/16 00:00 86 10/04/16 22:00 97 10/04/16 20:50 98 10/04/16 20:00 81 10/04/16 20:00 99.0 81 18 89/64 96 710/04/16 10/05/16 14:59 22:59 06:59 Intake Total 1698 ml 1026 ml 788 ml Output Total 100 ml 100 ml 100 ml Balance 1598 ml 926 ml 688 ml Intake Oral 320 ml 0 ml IV Total 1378 ml 1026 ml 788 ml Output Urine Total 0 ml Stool Total 100 ml 100 ml 100 ml # Voids 0 . Laboratory Tests Test 10/04/16 10/05/16 05:25 06:02 White Blood Count 18.1 TH/MM3 18.3 TH/MM3 Red Blood Count 3.31 MIL/MM3 3.33 MIL/MM3 Hemoglobin 9.0 GM/DL 9.0 GM/DL Hematocrit 28.4 % 28.3 % Mean Corpuscular Volume 85.6 FL 85.1 FL Mean Corpuscular Hemoglobin 27.2 PG 27.2 PG Mean Corpuscular Hemoglobin 31.8 % 31.9 % Concent Red Cell Distribution Width 19.8 % 19.5 % Platelet Count 316 TH/MM3 308 TH/MM3 Mean Platelet Volume 7.7 FL 8.1 FL Neutrophils (%) (Auto) 76.3 % Lymphocytes (%) (Auto) 9.2 % Monocytes (%) (Auto) 5.5 % Eosinophils (%) (Auto) 8.4 % Basophils (%) (Auto) 0.6 % Neutrophils # (Auto) 13.9 TH/MM3 Lymphocytes # (Auto) 1.7 TH/MM3 Monocytes # (Auto) 1.0 TH/MM3 Eosinophils # (Auto) 1.5 TH/MM3 Basophils # (Auto) 0.1 TH/MM3 CBC Comment DIFF FINAL Differential Comment Laboratory Tests Test 10/04/16 10/05/16 05:25 06:02 Sodium Level 135 MEQ/L 132 MEQ/L Potassium Level 3.2 MEQ/L 3.4 MEQ/L Chloride Level 99 MEQ/L 98 MEQ/L Carbon Dioxide Level 24.4 MEQ/L 19.8 MEQ/L Anion Gap 12 MEQ/L 14 MEQ/L Blood Urea Nitrogen 23 MG/DL 27 MG/DL Creatinine 3.52 MG/DL 4.21 MG/DL Estimat Glomerular Filtration 13 ML/MIN 11 ML/MIN Rate Random Glucose 103 MG/DL 155 MG/DL Calcium Level 7.0 MG/DL 7.0 MG/DL Protein Corrected Calcium 8.1 MG/DL 8.0 MG/DL Phosphorus Level 2.9 MG/DL 2.7 MG/DL Magnesium Level 1.6 MG/DL 1.6 MG/DL Total Protein 5.1 GM/DL 5.2 GM/DL Microbiology Date/Time Procedure Status Source Growth 10/04/16 20:00 Aerobic Blood Culture - Preliminary Resulted Blood Peripheral NO GROWTH IN 1 DAY 10/04/16 20:00 Anaerobic Blood Culture - Preliminary Resulted Blood Peripheral NO GROWTH IN 1 DAY 10/04/16 20:12 Aerobic Blood Culture - Preliminary Resulted Blood Peripheral NO GROWTH IN 1 DAY 10/04/16 20:12 Anaerobic Blood Culture - Preliminary Resulted Blood Peripheral NO GROWTH IN 1 DAY Imaging Last Impressions Chest X-Ray 10/02/16 0000 Signed Impressions: Service Date/Time: Sunday, October 02, 2016 15:49 - CONCLUSION: 1. Right IJ central line in good position without evidence for pneumothorax. 2. Cardiomegaly with mild positive fluid balance. 3. Minimal airspace disease in the left lower lung zone, likely atelectasis. Madhav Jacobs MD Physical Exam CONSTITUTIONAL/GENERAL: This is amorbidly obese female patient, in no apparent distress.Comfortable TUBES/LINES/DRAINS: SKIN: No jaundice, rashes, or lesions. CARDIOVASCULAR: Regular rate and rhythm without murmurs, gallops, or rubs. . RESPIRATORY/CHEST: Symmetric, unlabored respirations. Clear to auscultation. Breath sounds equal bilaterally. No wheezes, rales, or rhonchi. GASTROINTESTINAL: Abdomen soft, non-tender, nondistended. No hepato-splenomegaly , or palpable masses. Bowel sounds present. GENITOURINARY: Without palpable bladder distension. MUSCULOSKELETAL: Extremities without clubbing, cyanosis, or edema. NEUROLOGICAL: awake alert, clear speech PSYCHIATRIC: irritable Assessment & Plan Remarks Hypervirulent 027 C.diff strain blood clx with different strains of coag neg staph and corynobacteria, cw contamination Sepsis - likely 2/2 C.diff Chronic wounds - abd wounds are clean with no necrotic tissue L hip wound is a concern over extensve necrosis but no e/o active infx Sacral wound is deep and sows poor healing but no active infx ESRD, HD Persistetn fever and leukocytosis - most likley 2/2 C.diff cont dificid x 10 days conmt vanco oral cont flagyl IV fu repeat blood clx - avoid systemic abx if feasibele however might be developping a different infection - restart IV vanco + zosyn if cont to have fever an o/w unexplained fever - pt needs debridement of her wounds Bel Cotter RN, MD Oct 05, 2016 19:42
[2016-10-05] MEDS: ATORVASTATIN 40 MG TAB PO SCH (21:26)
[2016-10-06] VITALS (17 sets, daily range): BP systolic 78–128; BP diastolic 46–83; PULSE 69–89; RESP 11–26; TEMP 98.4–100.3; O2SAT 94–98
[2016-10-06] MEDS: metroNIDAZOLE 500 MG INJ 100 ML IV SCH ×4 (01:39→23:51)
[2016-10-06] MEDS: VANCOMYCIN 500 MG VIAL (FOR ORAL USE ONLY) PO SCH ×5 (01:39→23:51)
[2016-10-06] MEDS: CHLORHEXIDINE GLUCONATE 2 % 1 PACK (2 CLOTHS) TOP SCH (02:22)
[2016-10-06] MEDS: HYDROmorphone HCL PF 1 MG/ML VIAL IV PUSH PRN ×4 (02:22→21:48)
[2016-10-06 06:18] LABS: HEMATOCRIT 28.9 % (35.0-46.0); MEAN CORPUSCULAR HEMOGLOBIN 26.8 PG (27.0-34.0); MEAN CORPUSCULAR HGB CONC 31.2 % (32.0-36.0); PLATELET COUNT 323 TH/MM3 (150-450); RED BLOOD COUNT 3.36 MIL/MM3 (4.00-5.30); REVIEW FLAG FINAL; WHITE BLOOD COUNT 15.2 TH/MM3 (4.0-11.0)
[2016-10-06] MEDS: MIDODRINE 5 MG TAB PO SCH ×3 (06:37→18:17)
[2016-10-06] MEDS: INSULIN ASPART SUPPLEMENTAL SCALE SQ SCH ×4 (06:38→21:55)
[2016-10-06 06:53] LABS: BICARBONATE 24.3 MEQ/L (21.0-32.0); MAGNESIUM 1.8 MG/DL (1.5-2.5); POTASSIUM 3.6 MEQ/L (3.5-5.1)
[2016-10-06 07:04] LABS: CALCIUM-PROTEIN CORRECTED 8.5 MG/DL (8.5-10.1)
[2016-10-06] MEDS: SODIUM HYPOCHLORITE 0.25% 500 ML BTL TOPICAL SCH (09:00)
[2016-10-06] MEDS: INSULIN DETEMIR 100 UNITS/ML VIAL SQ SCH (09:00)
[2016-10-06] MEDS: LACTOBACILLUS ACIDOPHILUS TAB PO SCH ×3 (09:12→16:43)
[2016-10-06] MEDS: CHOLECALCIFEROL (VIT D3) 5000 UNIT CAP PO SCH ×2 (09:12→21:50)
[2016-10-06] MEDS: FIDAXOMICIN 200 MG TAB PO SCH ×2 (09:12→21:51)
[2016-10-06] MEDS: THYROID 60 MG TAB PO SCH (09:13)
[2016-10-06] MEDS: CALCITRIOL 0.25 MCG CAP PO SCH (09:13)
[2016-10-06] MEDS: CYANOCOBALAMIN 1,000 MCG TAB PO SCH (09:13)
[2016-10-06] MEDS: CINACALCET HYDROCHLORIDE 30 MG TAB PO SCH (09:14)
[2016-10-06] MEDS: ASPIRIN EC 81 MG TABEC PO SCH (09:14)
[2016-10-06] MEDS: SEVELAMER CARBONATE 800 MG TAB PO SCH (09:14)
[2016-10-06] MEDS: PANTOPRAZOLE SODIUM 40 MG VIAL IV SCH (09:14)
[2016-10-06] MEDS: GABAPENTIN 100 MG CAP PO SCH ×2 (09:14→21:50)
[2016-10-06] MEDS: FLUoxetine HCL 20 MG CAP PO SCH (09:14)
[2016-10-06] MEDS: SODIUM CHLORIDE 0.9% FLUSH 10 ML FLUSH IV FLUSH SCH ×2 (09:15→21:00)
--- NOTE | 2016-10-06 12:02 | HHI.NPPN ---
Subjective General Problems: Anemia Renal Failure: End Stage Renal Disease History of Present Illness 55-year-old female known to me from before with past medical history of end-stage renal disease on hemodialysis, chronic anemia with recurrent blood transfusion, multiple abdominal wounds with debridement, history of anxiety, depression, arthritis, diabetes mellitus, morbid obesity, hypothyroidism was sent to the hospital because of severe anemia. I was called to see the patient for the management of hemodialysis. She has been on hemodialysis Friday, and Friday. Additional Remarks Patient is alert, feeling tired, diarrhea persists not eating PO4 low Review of Systems General Constitutional: Fatigue Respiratory Lungs: SOB Cardiovascular Cardiac: GRIFFIN Gastrointestinal Gastrointestinal: Abdominal Pain, Nausea & Vomiting Objective Data Data 10/05/16 10/06/16 19:00 07:00 Intake Total 1070 ml 1405 ml Output Total 3200 ml 550 ml Balance -2130 ml 855 ml Intake Oral 240 ml IV Total 830 ml 1405 ml Output Urine Total 0 ml Stool Total 200 ml 550 ml Hemodialysis 3000 ml # Voids 1 Vital Signs Date Time Temp Pulse Resp B/P Pulse Ox O2 Delivery O2 Flow Rate FiO2 10/06/16 10:00 80 16 113/51 98 10/06/16 09:00 83 16 122/57 94 10/06/16 08:00 99.6 74 16 122/57 97 10/06/16 07:00 Room Air 10/06/16 06:00 74 10/06/16 04:00 99.2 77 13 78/63 98 10/06/16 04:00 74 10/06/16 02:00 80 10/06/16 00:00 100.3 72 14 118/83 97 10/06/16 00:00 72 10/05/16 22:00 74 10/05/16 21:07 97 21 10/05/16 20:00 81 10/05/16 20:00 98.5 75 12 117/70 98 10/05/16 19:00 Room Air 10/05/16 18:00 80 13 104/61 96 10/05/16 17:00 87 3 107/58 95 10/05/16 16:00 100.8 83 17 126/67 97 10/05/16 15:00 82 18 114/62 96 10/05/16 14:00 83 18 107/59 95 10/05/16 13:00 92 7 122/62 95 10/05/16 12:00 98.6 89 14 106/58 96 -: 10/06/16 0540 10/06/16 0540 Physical Exam General Appearance: No Acute Distress, Comfortable Eyes Eye Exam: Pupils Equal Throat Throat Exam: Oral Mucosa [place] & Moist Neck Neck Exam: Neck Supple Pulmonary Resp Exam: Breath Sounds Equal, No Distress, Decreased Bases Cardiology CV Exam: Regular, Normal Sinus Rhythm Gastrointestinal/Abdomen GI Exam: Soft, Non-Tender, Bowel Sounds Present, Distended Extremeties Extremities Exam: Moderate Edema, Pitting Edema, Dependent Edema Neurologic Neuro Exam: Alert, Awake, Oriented Psychiatric Psych Exam: Appropriate Responses Assessment/Plan Assessment Summary: Anemia of CKD, Hypotension, End Stage Renal Disease Problem List: (1) Wounds, multiple (2) Chronic back pain (3) Diabetes (4) Malnutrition (5) Anemia in chronic kidney disease (CKD) (6) End stage renal disease on dialysis Plan Patient has now stable Hgb. C Diff colitis on PO Vancomycin low PO4 1.9 Hold Renvela, encourage her to eat BP is still low, on Midodrine. Continue Epogen with HD. BC growing Staph. coag neg. ID following. On Vanco. and Flagyl for C. difficile. Dr. Jimenez to follow Problem Qualifiers (1) Diabetes: (2) Anemia in chronic kidney disease (CKD): Qualified Code: N18.6 - Anemia in chronic kidney disease, on chronic dialysis Jessie Birmingham MD Oct 06, 2016 12:02
--- NOTE | 2016-10-06 13:11 | HHI.PR ---
Subjective Remarks more comfortable today but bowels are loose will add fiber Objective Vital Signs Date Time Temp Pulse Resp B/P Pulse Ox O2 Delivery O2 Flow Rate FiO2 10/06/16 10:00 80 16 113/51 98 10/06/16 09:00 83 16 122/57 94 10/06/16 08:00 99.6 74 16 122/57 97 10/06/16 07:00 Room Air 10/06/16 06:00 74 10/06/16 04:00 99.2 77 13 78/63 98 10/06/16 04:00 74 10/06/16 02:00 80 10/06/16 00:00 100.3 72 14 118/83 97 10/06/16 00:00 72 10/05/16 22:00 74 10/05/16 21:07 97 21 10/05/16 20:00 81 10/05/16 20:00 98.5 75 12 117/70 98 10/05/16 19:00 Room Air 10/05/16 18:00 80 13 104/61 96 10/05/16 17:00 87 3 107/58 95 10/05/16 16:00 100.8 83 17 126/67 97 10/05/16 15:00 82 18 114/62 96 10/05/16 14:00 83 18 107/59 95 I/O 10/05/16 10/05/16 10/05/16 10/06/16 10/06/16 10/06/16 07:00 15:00 23:00 07:00 15:00 23:00 Intake Total 788 ml 1070 ml 1021 ml 384 ml Output Total 100 ml 3200 ml 50 ml 500 ml Balance 688 ml -2130 ml 971 ml -116 ml Intake Oral 0 ml 240 ml IV Total 788 ml 830 ml 1021 ml 384 ml Output Urine Total 0 ml 0 ml 0 ml Stool Total 100 ml 200 ml 50 ml 500 ml Hemodialysis 3000 ml # Voids 1 Result Diagram: 10/06/1640 10/06/16 0540 Objective Remarks GENERAL: Well-nourished, well-developed patient.morbidly obese with multiple wounds bed bound SKIN: Warm and dry. HEAD: Normocephalic. EYES: No scleral icterus. No injection or drainage. NECK: Supple, trachea midline. No JVD or lymphadenopathy. CARDIOVASCULAR: Regular rate and rhythm without murmurs, gallops, or rubs. RESPIRATORY: Breath sounds equal bilaterally. No accessory muscle use. GASTROINTESTINAL: Abdomen soft, morbidly obese with panulus ulcers loose stool EXTREMITIES: No cyanosis, or 3plus edema with placquing NEUROLOGICAL: Awake, alert, and oriented x 3. Non-focal. coccyx with massive deep 3-4 decubidi Medications and IVs Inpatient Medications Acetaminophen (Ofirmev Inj) 1,000 mg Q6H IV Last administered on 10/04/16 12: 40; Start 10/03/16 at 20:00; Stop 10/04/16 at 19:59; Status DC Acetaminophen (Tylenol) 650 mg UNSCH X1 PRN PO WITH DIALYSIS; Start 10/05/16 at 11:00; Stop 10/07/16 at 23:59 Albumin Human (Albumin 25% Inj) 25 gm UNSCH PRN IV WITH DIALYSIS; Start at 11:00 Albuterol/ Ipratropium (Duoneb Neb) 1 ampule Q4HR NEB PRN INH WHEEZING; Start 10/02/16 at 16:00 Alprazolam (Xanax) 0.25 mg Q6H PRN PO ANXIETY Last administered on 10/04/16 09 :01; Start 09/30/16 at 20:45 Aspirin (Ecotrin Ec) 81 mg DAILY PO Last administered on 10/06/16 09:14; Start 10/01/16 at 09:00 Atorvastatin Calcium (Lipitor) 40 mg HS PO Last administered on 10/05/16 21:26 ; Start 09/30/16 at 21:00 Bisacodyl (Dulcolax Supp) 10 mg DAILY PRN RECTAL SEVERE CONSITIPATION; Start at 16:00 Calcitriol (Rocaltrol) 0.5 mcg DAILY PO Last administered on 10/06/16 09:13; Start 10/01/16 at 09:00 Chlorhexidine Gluconate (Chlorhexidine 2% Cloth) 3 pack UNSCH PRN TOP HYGIENIC CARE; Start 10/02/16 at 15:30 Cholecalciferol (Vitamin D3) 10,000 units BID PO Last administered on 09:12; Start 09/30/16 at 21:00 Cinacalcet (Sensipar) 30 mg DAILY PO Last administered on 10/06/16 09:14; Start 10/01/16 at 09:00 Clonidine (Catapres) 0.1 mg UNSCH PRN PO WITH DIALYSIS; Start 10/05/16 at 11:00 Cyanocobalamin (Vitamin B12) 1,000 mcg DAILY PO Last administered on 10/06/16 09:13; Start 10/01/16 at 09:00 Dextrose (D50w (Vial) Inj) 50 ml UNSCH PRN IV HYPOGLYCEMIA-SEE COMMENTS; Start 10/02/16 at 15:45 Diphenhydramine HCl (Benadryl) 25 mg UNSCH PRN PO WITH DIALYSIS; Start at 11:00 Epinephrine HCl (Adrenalin (1:1000) Inj) 0.3 mg ONCE PRN IV PUSH ALLERGIC REACTION; Start 09/30/16 at 20:45; Stop 10/03/16 at 20:44; Status DC Epoetin Porter (Epogen Inj) 10,000 units UNSCH PRN IV WITH DIALYSIS Last administered on 10/05/16 10:47; Start 10/05/16 at 11:00 Fidaxomicin (Dificid) 200 mg BID PO Last administered on 10/06/16 09:12; Start 10/01/16 at 21:00; Stop 10/11/16 at 20:59 Fluoxetine HCl (PROzac) 20 mg DAILY PO Last administered on 10/06/16 09:14; Start 10/03/16 at 09:00 Gabapentin (Neurontin) 100 mg BID PO Last administered on 10/06/16 09:14; Start 09/30/16 at 21:00 Gelatin (Gelfoam 12 Mm/7 Mm Top) 1 foam UNSCH PRN TOPICAL WITH DIALYSIS; Start 10/05/16 at 11:00 Gentamicin Sulfate (Gentamicin (Dialysis) Inj) 10 mg UNSCH PRN OTHER WITH DIALYSIS Last administered on 10/05/16 10:47; Start 10/05/16 at 11:00 Glucagon (Glucagon Inj) 1 mg UNSCH PRN OTHER HYPOGLYCEMIA-SEE COMMENTS; Start 10/01/16 at 16:30; Stop 10/02/16 at 15:40; Status DC Glucagon 1 mg 1 mg UNSCH PRN OTHER HYPOGLYCEMIA-SEE COMMENTS; Start 10/02/16 at 15:45 Heparin Sodium (Porcine) (Heparin Inj) Dwell Heparin to f... UNSCH PRN OTHER WITH DIALYSIS Last administered on 10/05/16 10:47; Start 10/05/16 at 11:00 Heparin Sodium (Porcine) 8000 units 8,000 units UNSCH PRN IV FLUSH WITH DIALYSIS; Start 10/05/16 at 11:00 Hydrocortisone Sodium Succinate (SoluCORTEF INJ) 250 mg ONCE PRN IV PUSH ALLERGIC REACTION; Start 09/30/16 at 20:45; Stop 10/03/16 at 20:44; Status DC Hydromorphone HCl (Dilaudid Pf Inj) 0.5 mg Q6H PRN IV PUSH PAIN SCALE 7 TO 10 Last administered on 10/06/16 12:53; Start 10/03/16 at 19:45 Insulin Aspart (NovoLOG SUPPLEMENTAL SCALE) 1 ACHS SLIDING SCALE SQ Last administered on 10/05/16 21:31; Start 10/02/16 at 16:00 Insulin Detemir (Levemir Inj) 10 units DAILY SQ Last administered on 10/05/16 09:00; Start 10/01/16 at 09:00 Lactated Ringer's 500 ml @ 0 mls/hr BOLUS ONCE IV Last administered on 14:30; Start 10/02/16 at 17:00; Stop 10/02/16 at 17:01; Status DC Lactobacillus Acidophilus (Lactinex Pkt) 1 gm TID PO Last administered on 09:00; Start 10/04/16 at 13:00; Stop 10/05/16 at 11:22; Status DC Lactobacillus Acidophilus (Lactinex) 1 tab TID PO Last administered on 12:11; Start 10/05/16 at 13:00 Lactulose (Lactulose Liq) 30 ml DAILY PRN PO SEVERE CONSITIPATION; Start at 16:00; Stop 10/04/16 at 09:44; Status DC Magnesium Hydroxide (Milk Of Magnesia Liq) 30 ml Q12HR PRN PO MILD - MODERATE CONSTIPATION; Start 10/02/16 at 21:00; Stop 10/04/16 at 09:44; Status DC Magnesium Sulfate/ Dextrose (Magnesium Sulfate 1 Gm Premix) 100 ml @ 100 mls/ hr Q1H IV Last administered on 10/05/16 18:00; Start 10/05/16 at 17:00; Stop 10/05/16 at 18:59; Status DC Mannitol (Mannitol Inj) 12.5 gm UNSCH PRN IV WITH DIALYSIS; Start 10/05/16 at 11:00 Meclizine HCl (Antivert) 25 mg TID PRN PO VERTIGO; Start 09/30/16 at 20:45 Megestrol Acetate (Megace Liq) 400 mg DAILY PO Last administered on 10/04/16 09:01; Start 10/01/16 at 09:00; Stop 10/04/16 at 09:44; Status DC Metoprolol Tartrate 5 mg 5 mg NOW ONCE IV PUSH ; Start 10/02/16 at 17:00; Stop 10/02/16 at 17:01; Status DC Metronidazole (Flagyl 500 Mg Inj) 100 ml @ 100 mls/hr Q8H IV Last administered on 10/06/16 09:14; Start 10/02/16 at 17:00 Midodrine 10 mg 10 mg TID@07,12,19 PO Last administered on 10/06/16 12:00; Start 10/04/16 at 19:00 Miscellaneous Information 1 Q361D XX Last administered on 10/03/16 09:40; Start 10/02/16 at 15:30 Naloxone HCl (Narcan Inj) 0.4 mg UNSCH PRN IV SEE LABEL COMMENTS; Start at 20:45 Nitroglycerin (Nitrostat Sl) 0.4 mg UNSCH PRN SL WITH DIALYSIS; Start 10/05/16 at 11:00 Ondansetron HCl (Zofran Odt) 4 mg Q6HR PRN SL Nausea/Vomiting; Start 09/30/16 at 20:45 Ondansetron HCl (Zofran Inj) 4 mg UNSCH PRN IV NAUSEA OR VOMITING; Start at 11:00 Oxybutynin Chloride (Ditropan) 15 mg Q6H PRN PO PAIN 1-10; Start 10/01/16 at 02 :00; Stop 10/01/16 at 02:00; Status DC Oxycodone HCl (Roxicodone) 15 mg Q6H PRN PO PAIN 1-10 Last administered on 10/06 09:13; Start 10/01/16 at 02:00 Pantoprazole Sodium (Protonix Inj) 40 mg DAILY IV Last administered on 09:14; Start 10/03/16 at 09:00 Phenylephrine HCl/ Dextrose (Neosynephrine Inj/D5W 500 ml Inj) 500 ml @ 0 mls/ hr TITRATE IV Last administered on 10/05/16 21:33; Start 10/02/16 at 17:00 Potassium Chloride 20 meq 20 meq ONCE ONCE PO Last administered on 10/02/16 11:53; Start 10/02/16 at 09:45; Stop 10/02/16 at 09:46; Status DC Potassium Chloride 30 meq 30 meq ONCE ONCE PO Last administered on 10/05/16 14:07; Start 10/05/16 at 13:00; Stop 10/05/16 at 13:01; Status DC Potassium Chloride (KCl) 20 meq ONCE ONCE PO Last administered on 10/04/16 10 :47; Start 10/04/16 at 10:30; Stop 10/04/16 at 10:31; Status DC Senna/Docusate Sodium (Luciana-Colace) 1 tab BID PO Last administered on 09:00; Start 10/02/16 at 21:00; Stop 10/04/16 at 09:44; Status DC Sennosides (Senokot) 17.2 mg Q12HR PRN PO MODERATE - SEVERE CONSTIPATION; Start 10/02/16 at 21:00; Stop 10/04/16 at 09:44; Status DC Sevelamer Carbonate (Renvela) 1,600 mg TID PO Last administered on 10/06/16 09 :14; Start 10/01/16 at 09:00; Status Hold Sodium Hypochlorite (Dakin'S 0.25% Soln) 500 ml DAILY TOPICAL Last administered on 10/06/16 09:00; Start 10/01/16 at 09:00 Sodium Chloride (NS 1000 ml Inj) 1,000 ml @ 0 mls/hr TITRATE PRN IV WITH DIALYSIS Last administered on 10/05/16 10:48; Start 10/05/16 at 11:00 Sodium Chloride (NS 250 ml Inj) 200 ml @ 0 mls/hr UNSCH PRN IV WITH DIALYSIS; Start 10/05/16 at 11:00 Sodium Chloride (NS 500 ml Inj) 500 ml @ 500 mls/hr BOLUS ONCE IV ; Start at 20:00; Stop 09/30/16 at 20:00; Status DC Sodium Chloride (NS Flush) 5 ml UNSCH PRN IV FLUSH WITH DIALYSIS; Start at 11:00 Terbutaline Sulfate (Brethine Inj) 1 mg UNSCH PRN SQ FOR EXTRAVASATION PROTOCOL ; Start 10/02/16 at 17:00 Thyroid ([place] Thyroid) 60 mg DAILY PO Last administered on 10/06/16 09:13; Start 10/01/16 at 09:00 Vancomycin HCl (VANCOMYCIN for oral use only) 500 mg Q6HR PO Last administered on 10/06/16 12:10; Start 10/01/16 at 18:00 Vancomycin HCl 1500 mg/Sodium Chloride 515 ml @ 250 mls/hr ONCE ONCE IV ; Start 10/02/16 at 11:30; Stop 10/02/16 at 13:33; Status DC Vancomycin HCl/ Sodium Chloride (Vancomycin Inj/ NS 250 ml Inj) 250 ml @ 250 mls/hr WITH DIALYSIS IV Last administered on 10/03/16 08:47; Start 10/02/16 at 11:15; Stop 10/04/16 at 17:29; Status DC Inpatient Medications Acetaminophen (Ofirmev Inj) 1,000 mg Q6H IV Last administered on 10/04/16 12: 40; Start 10/03/16 at 20:00; Stop 10/04/16 at 19:59; Status DC Acetaminophen (Tylenol) 650 mg UNSCH X1 PRN PO WITH DIALYSIS; Start 10/05/16 at 11:00; Stop 10/07/16 at 23:59 Albumin Human (Albumin 25% Inj) 25 gm UNSCH PRN IV WITH DIALYSIS; Start at 11:00 Albuterol/ Ipratropium (Duoneb Neb) 1 ampule Q4HR NEB PRN INH WHEEZING; Start 10/02/16 at 16:00 Alprazolam (Xanax) 0.25 mg Q6H PRN PO ANXIETY Last administered on 10/04/16 09 :01; Start 09/30/16 at 20:45 Aspirin (Ecotrin Ec) 81 mg DAILY PO Last administered on 10/06/16 09:14; Start 10/01/16 at 09:00 Atorvastatin Calcium (Lipitor) 40 mg HS PO Last administered on 10/05/16 21:26 ; Start 09/30/16 at 21:00 Bisacodyl (Dulcolax Supp) 10 mg DAILY PRN RECTAL SEVERE CONSITIPATION; Start at 16:00 Calcitriol (Rocaltrol) 0.5 mcg DAILY PO Last administered on 10/06/16 09:13; Start 10/01/16 at 09:00 Chlorhexidine Gluconate (Chlorhexidine 2% Cloth) 3 pack UNSCH PRN TOP HYGIENIC CARE; Start 10/02/16 at 15:30 Cholecalciferol (Vitamin D3) 10,000 units BID PO Last administered on 09:12; Start 09/30/16 at 21:00 Cinacalcet (Sensipar) 30 mg DAILY PO Last administered on 10/06/16 09:14; Start 10/01/16 at 09:00 Clonidine (Catapres) 0.1 mg UNSCH PRN PO WITH DIALYSIS; Start 10/05/16 at 11:00 Cyanocobalamin (Vitamin B12) 1,000 mcg DAILY PO Last administered on 10/06/16 09:13; Start 10/01/16 at 09:00 Dextrose (D50w (Vial) Inj) 50 ml UNSCH PRN IV HYPOGLYCEMIA-SEE COMMENTS; Start 10/02/16 at 15:45 Diphenhydramine HCl (Benadryl) 25 mg UNSCH PRN PO WITH DIALYSIS; Start at 11:00 Epinephrine HCl (Adrenalin (1:1000) Inj) 0.3 mg ONCE PRN IV PUSH ALLERGIC REACTION; Start 09/30/16 at 20:45; Stop 10/03/16 at 20:44; Status DC Epoetin Porter (Epogen Inj) 10,000 units UNSCH PRN IV WITH DIALYSIS Last administered on 10/05/16 10:47; Start 10/05/16 at 11:00 Fidaxomicin (Dificid) 200 mg BID PO Last administered on 10/06/16 09:12; Start 10/01/16 at 21:00; Stop 10/11/16 at 20:59 Fluoxetine HCl (PROzac) 20 mg DAILY PO Last administered on 10/06/16 09:14; Start 10/03/16 at 09:00 Gabapentin (Neurontin) 100 mg BID PO Last administered on 10/06/16 09:14; Start 09/30/16 at 21:00 Gelatin (Gelfoam 12 Mm/7 Mm Top) 1 foam UNSCH PRN TOPICAL WITH DIALYSIS; Start 10/05/16 at 11:00 Gentamicin Sulfate (Gentamicin (Dialysis) Inj) 10 mg UNSCH PRN OTHER WITH DIALYSIS Last administered on 10/05/16 10:47; Start 10/05/16 at 11:00 Glucagon (Glucagon Inj) 1 mg UNSCH PRN OTHER HYPOGLYCEMIA-SEE COMMENTS; Start 10/01/16 at 16:30; Stop 10/02/16 at 15:40; Status DC Glucagon 1 mg 1 mg UNSCH PRN OTHER HYPOGLYCEMIA-SEE COMMENTS; Start 10/02/16 at 15:45 Heparin Sodium (Porcine) (Heparin Inj) Dwell Heparin to f... UNSCH PRN OTHER WITH DIALYSIS Last administered on 10/05/16 10:47; Start 10/05/16 at 11:00 Heparin Sodium (Porcine) 8000 units 8,000 units UNSCH PRN IV FLUSH WITH DIALYSIS; Start 10/05/16 at 11:00 Hydrocortisone Sodium Succinate (SoluCORTEF INJ) 250 mg ONCE PRN IV PUSH ALLERGIC REACTION; Start 09/30/16 at 20:45; Stop 10/03/16 at 20:44; Status DC Hydromorphone HCl (Dilaudid Pf Inj) 0.5 mg Q6H PRN IV PUSH PAIN SCALE 7 TO 10 Last administered on 10/06/16 12:53; Start 10/03/16 at 19:45 Insulin Aspart (NovoLOG SUPPLEMENTAL SCALE) 1 ACHS SLIDING SCALE SQ Last administered on 10/05/16 21:31; Start 10/02/16 at 16:00 Insulin Detemir (Levemir Inj) 10 units DAILY SQ Last administered on 10/05/16 09:00; Start 10/01/16 at 09:00 Lactated Ringer's 500 ml @ 0 mls/hr BOLUS ONCE IV Last administered on 14:30; Start 10/02/16 at 17:00; Stop 10/02/16 at 17:01; Status DC Lactobacillus Acidophilus (Lactinex Pkt) 1 gm TID PO Last administered on 09:00; Start 10/04/16 at 13:00; Stop 10/05/16 at 11:22; Status DC Lactobacillus Acidophilus (Lactinex) 1 tab TID PO Last administered on 12:11; Start 10/05/16 at 13:00 Lactulose (Lactulose Liq) 30 ml DAILY PRN PO SEVERE CONSITIPATION; Start at 16:00; Stop 10/04/16 at 09:44; Status DC Magnesium Hydroxide (Milk Of Magnesia Liq) 30 ml Q12HR PRN PO MILD - MODERATE CONSTIPATION; Start 10/02/16 at 21:00; Stop 10/04/16 at 09:44; Status DC Magnesium Sulfate/ Dextrose (Magnesium Sulfate 1 Gm Premix) 100 ml @ 100 mls/ hr Q1H IV Last administered on 10/05/16 18:00; Start 10/05/16 at 17:00; Stop 10/05/16 at 18:59; Status DC Mannitol (Mannitol Inj) 12.5 gm UNSCH PRN IV WITH DIALYSIS; Start 10/05/16 at 11:00 Meclizine HCl (Antivert) 25 mg TID PRN PO VERTIGO; Start 09/30/16 at 20:45 Megestrol Acetate (Megace Liq) 400 mg DAILY PO Last administered on 10/04/16 09:01; Start 10/01/16 at 09:00; Stop 10/04/16 at 09:44; Status DC Metoprolol Tartrate 5 mg 5 mg NOW ONCE IV PUSH ; Start 10/02/16 at 17:00; Stop 10/02/16 at 17:01; Status DC Metronidazole (Flagyl 500 Mg Inj) 100 ml @ 100 mls/hr Q8H IV Last administered on 10/06/16 09:14; Start 10/02/16 at 17:00 Midodrine 10 mg 10 mg TID@07,12,19 PO Last administered on 10/06/16 12:00; Start 10/04/16 at 19:00 Miscellaneous Information 1 Q361D XX Last administered on 10/03/16 09:40; Start 10/02/16 at 15:30 Naloxone HCl (Narcan Inj) 0.4 mg UNSCH PRN IV SEE LABEL COMMENTS; Start at 20:45 Nitroglycerin (Nitrostat Sl) 0.4 mg UNSCH PRN SL WITH DIALYSIS; Start 10/05/16 at 11:00 Ondansetron HCl (Zofran Odt) 4 mg Q6HR PRN SL Nausea/Vomiting; Start 09/30/16 at 20:45 Ondansetron HCl (Zofran Inj) 4 mg UNSCH PRN IV NAUSEA OR VOMITING; Start at 11:00 Oxybutynin Chloride (Ditropan) 15 mg Q6H PRN PO PAIN 1-10; Start 10/01/16 at 02 :00; Stop 10/01/16 at 02:00; Status DC Oxycodone HCl (Roxicodone) 15 mg Q6H PRN PO PAIN 1-10 Last administered on 10/06 09:13; Start 10/01/16 at 02:00 Pantoprazole Sodium (Protonix Inj) 40 mg DAILY IV Last administered on 09:14; Start 10/03/16 at 09:00 Phenylephrine HCl/ Dextrose (Neosynephrine Inj/D5W 500 ml Inj) 500 ml @ 0 mls/ hr TITRATE IV Last administered on 10/05/16 21:33; Start 10/02/16 at 17:00 Potassium Chloride 20 meq 20 meq ONCE ONCE PO Last administered on 10/02/16 11:53; Start 10/02/16 at 09:45; Stop 10/02/16 at 09:46; Status DC Potassium Chloride 30 meq 30 meq ONCE ONCE PO Last administered on 10/05/16 14:07; Start 10/05/16 at 13:00; Stop 10/05/16 at 13:01; Status DC Potassium Chloride (KCl) 20 meq ONCE ONCE PO Last administered on 10/04/16 10 :47; Start 10/04/16 at 10:30; Stop 10/04/16 at 10:31; Status DC Senna/Docusate Sodium (Luciana-Colace) 1 tab BID PO Last administered on 09:00; Start 10/02/16 at 21:00; Stop 10/04/16 at 09:44; Status DC Sennosides (Senokot) 17.2 mg Q12HR PRN PO MODERATE - SEVERE CONSTIPATION; Start 10/02/16 at 21:00; Stop 10/04/16 at 09:44; Status DC Sevelamer Carbonate (Renvela) 1,600 mg TID PO Last administered on 10/06/16 09 :14; Start 10/01/16 at 09:00; Status Hold Sodium Hypochlorite (Dakin'S 0.25% Soln) 500 ml DAILY TOPICAL Last administered on 10/06/16 09:00; Start 10/01/16 at 09:00 Sodium Chloride (NS 1000 ml Inj) 1,000 ml @ 0 mls/hr TITRATE PRN IV WITH DIALYSIS Last administered on 10/05/16 10:48; Start 10/05/16 at 11:00 Sodium Chloride (NS 250 ml Inj) 200 ml @ 0 mls/hr UNSCH PRN IV WITH DIALYSIS; Start 10/05/16 at 11:00 Sodium Chloride (NS 500 ml Inj) 500 ml @ 500 mls/hr BOLUS ONCE IV ; Start at 20:00; Stop 09/30/16 at 20:00; Status DC Sodium Chloride (NS Flush) 5 ml UNSCH PRN IV FLUSH WITH DIALYSIS; Start at 11:00 Terbutaline Sulfate (Brethine Inj) 1 mg UNSCH PRN SQ FOR EXTRAVASATION PROTOCOL ; Start 10/02/16 at 17:00 Thyroid (Holland Thyroid) 60 mg DAILY PO Last administered on 10/06/16 09:13; Start 10/01/16 at 09:00 Vancomycin HCl (VANCOMYCIN for oral use only) 500 mg Q6HR PO Last administered on 10/06/16 12:10; Start 10/01/16 at 18:00 Vancomycin HCl 1500 mg/Sodium Chloride 515 ml @ 250 mls/hr ONCE ONCE IV ; Start 10/02/16 at 11:30; Stop 10/02/16 at 13:33; Status DC Vancomycin HCl/ Sodium Chloride (Vancomycin Inj/ NS 250 ml Inj) 250 ml @ 250 mls/hr WITH DIALYSIS IV Last administered on 10/03/16 08:47; Start 10/02/16 at 11:15; Stop 10/04/16 at 17:29; Status DC Assessment and Plan Problem List: (1) Wound dehiscence, surgical Status: Acute Plan: continue wound care and antibiotic therapy (2) Hx of Clostridium difficile infection Status: Acute Plan: continue vancomycin add fiber and probiotric to firm stool (3) End stage kidney disease Status: Chronic Plan: continue dialysis (4) Wounds, multiple Status: Acute (5) Diabetes Status: Acute Plan: continue to moniter blood sugars and adjust insuline Assessment and Plan pt to transfer to [facility] on friday if stable Problem Qualifiers (1) Diabetes: Lucas Freitas DO Oct 06, 2016 13:11
--- NOTE | 2016-10-06 16:16 | HHI.CCPN ---
Subjective Remarks/Hospital Course This is a 55-year-old female with history of end-stage renal disease on dialysis TRS who presented for treatment of low hemoglobin. 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 She denies any abdominal pain, black or tarry stools, hematochezia, hematemesis. She is currently being treated at [facility]. She is being treated for C. difficile . She has been having diarrhea for 3 weeks. She endorses some fatigue. She reports chronic wounds on her buttocks which are being cared for at [facility]. During her workup GI was consulted the patient was scheduled for an EGD today, for anemia. Prior to entering the OR the patient was noted to be initially tachycardic with a heart rate in the 130s and received a liter bolus of LR. Noted to have hypoxemia O2 sat was 93%, and precipitous drop with a systolic blood pressure of 70/30. Critical care medicine was consulted in PACU by Dr. Pacheco for management. Low-dose phenylephrine IV was initiated. A central line and arterial line were placed by anesthesiologist, Dr. Pacheco. Upon my initial assessment in PACU the patient was noted to be semi-recombinant when placed supine patient's blood pressure was 68/34-> 99/39 low-dose phenylephrine was initiated as central line in a line will be placed by Dr. Pacheco. The patient was alert and oriented and complaining of chronic back pain. Subjective: 10/03: The patient continues on Mukesh-Synephrine infusion, unable to wean. Diet advanced a heart healthy. General surgery consulted for wound care, awaiting recommendations. Patient noted to have pre-existing sacral wounds. Diarrhea secondary to C. difficile, fecal containment rectal tube placement, patient complaining of pain. 10/04: Pain well controlled, the patient continues on phenylephrine infusion secondary to hypotension. Hemoglobin stable will continue to monitor. 10/05:Afebrile. The patient was restarted on Midodrine TID, still unable wean Phenylephrine.Discussion with Dr. Freitas (patient's personal physician), and dialysis nurse. The patient's MAP normally is less than 60mmHg. Patient's systolic blood pressure normally ranges in low 90s. Pain well controlled. 10/06: Awake and alert. Resting in bed comfortably. Remains on Mukesh-Synephrine which is being titrated down. Not in any acute distress. Objective Vital Signs Date Time Temp Pulse Resp B/P Pulse Ox O2 Delivery O2 Flow Rate FiO2 10/06/16 13:00 74 11 112/52 97 10/06/16 12:00 99.1 10/06/16 07:00 Room Air 10/05/16 21:07 21 10/04/16 09:22 2.00 Intake and Output 10/05/16 10/05/16 10/06/16 08:00 16:00 00:00 Intake Total 788 ml 1070 ml 1021 ml Output Total 100 ml 3200 ml 50 ml Balance 688 ml -2130 ml 971 ml Result Diagram: 10/06/16 0540 10/06/16 0540 Objective Remarks GENERAL: Morbidly obese female, lying semi-recumbent in bed in no distress SKIN: Warm and dry. HEAD: Atraumatic. Normocephalic. EYES: Pupils equal and round. No scleral icterus. No injection or drainage. ENT: No nasal bleeding or discharge. Mucous membranes pink and moist. Uvula midline. Mallampati class III. Currently on room air NECK: Trachea midline. No JVD. CARDIOVASCULAR: Normal rate, regular rhythm. RESPIRATORY: No accessory muscle use. Clear to auscultation. Breath sounds equal bilaterally. Room air GASTROINTESTINAL: Abdomen soft, non-tender, nondistended. No guarding. MUSCULOSKELETAL: Extremities without clubbing, cyanosis, noted cellulitis, erythema , scaling bilateral lower extremities. Left arm AV fistula NEUROLOGICAL: Awake and alert. RASS 0. No gross focal/sensory deficits. Follows commands in all 4 extremities. A/P Assessment and Plan Assessment Hypotension most likely secondary to septic shock, and acute blood loss anemia Acute GI bleed Acute on chronic anemia End-stage renal disease Diabetes mellitus Super morbid obesity Chronic pain syndrome Persistent Leukocytosis Neurologic: - Neurochecks per ICU protocol -Dilaudid 0.5 mg every 6 hours when necessary for breakthrough pain -Tylenol 650 mg every 6 hours when necessary for temperature greater than 100.5 Respiratory: -Bronchodilators every 4 hours when necessary for wheezing -Maintain O2 sat greater than 92%, currently on room air -Incentive spirometry every one hour while awake Cardiovascular: -Continue phenylephrine infusion, wean as tolerated -10/05 Midodrine 10 mg 3 times a day -Maintain MAP greater than 60mmHg Renal: -Nephrology following -Hemodialysis per nephrology -- Strict I/Os FEN/GI: -Monitor BMP -Heart healthy diet per GI -Fecal Containment device for diarrhea -GI following-Dr. Waldrop-tenative plan for colonoscopy ,will plan for when patient is hemodynamically stable Heme/ID: - Monitor CBC -09/27 C. difficile positive- on Flagyl and vancomycin -09/30 Blood culture-staph capitis, staph auricularis -ID following Dr. Adorno -Transfuse for hemoglobin less than 8 Endocrine: Glucose monitoring per ICU protocol low dose regimen every 6 hours MSK -Pre-existing/prehospitalization large sacral ulcer -Follow-up wound care instructions -- SSI Prophylaxis: GI Prophylaxis Protonix IV DVT Prophylaxis -- SCD's ,Heparin 5000 SQ BID Lines: Peripheral IV. Central line, arterial line per Dr. Osorio, Dispo: Level 3 Discussed with [employer], patient and POA (patient's son) at bedside. All questions answered. Continue to wean off phenylephrine, possible plan for transfer to [facility] Gilberto Bernal MD Oct 06, 2016 16:15
[2016-10-06] MEDS: LACTOBACILLUS ACIDOPHILUS 1 GM PACKET PO SCH (16:44)
[2016-10-06] MEDS: PSYLLIUM FIBER SF/GF 6 GM POWD PKT PO SCH (21:00)
[2016-10-06] MEDS: ATORVASTATIN 40 MG TAB PO SCH (21:50)
[2016-10-07] VITALS (20 sets, daily range): BP systolic 79–139; BP diastolic 46–78; PULSE 71–100; RESP 0–23; TEMP 99–99.8; O2SAT 87–100
[2016-10-07] MEDS: CHLORHEXIDINE GLUCONATE 2 % 1 PACK (2 CLOTHS) TOP SCH (04:00)
[2016-10-07] MEDS: VANCOMYCIN 500 MG VIAL (FOR ORAL USE ONLY) PO SCH ×3 (04:27→17:18)
[2016-10-07] MEDS: MIDODRINE 5 MG TAB PO SCH ×3 (04:28→17:30)
[2016-10-07] MEDS: INSULIN ASPART SUPPLEMENTAL SCALE SQ SCH ×4 (04:28→21:00)
[2016-10-07 05:50] LABS: BASOPHIL # 0.1 TH/MM3 (0-0.2); BASOPHIL % 0.6 % (0.0-2.0); EOSINOPHIL # 0.7 TH/MM3 (0-0.4); EOSINOPHIL % 5.6 % (0.0-4.0); HEMATOCRIT 28.6 % (35.0-46.0); HEMO FLAGS DIFF FINAL; LYMPH % 11.1 % (9.0-44.0); LYMPHOCYTE # 1.3 TH/MM3 (1.0-4.8); MEAN CELL VOLUME 86.6 FL (80.0-100.0); MEAN CORPUSCULAR HEMOGLOBIN 27.1 PG (27.0-34.0); MEAN CORPUSCULAR HGB CONC 31.4 % (32.0-36.0); MONO % 7.7 % (0.0-8.0); PLATELET COUNT 303 TH/MM3 (150-450); RED CELL DISTRIBUTION WIDTH 20.2 % (11.6-17.2)
[2016-10-07 06:11] LABS: POTASSIUM 3.5 MEQ/L (3.5-5.1)
[2016-10-07] MEDS: CYANOCOBALAMIN 1,000 MCG TAB PO SCH (09:00)
[2016-10-07] MEDS: FLUoxetine HCL 20 MG CAP PO SCH (09:00)
[2016-10-07] MEDS: LACTOBACILLUS ACIDOPHILUS 1 GM PACKET PO SCH ×3 (09:00→17:18)
[2016-10-07] MEDS: CHOLECALCIFEROL (VIT D3) 5000 UNIT CAP PO SCH ×2 (09:00→23:39)
[2016-10-07] MEDS: metroNIDAZOLE 500 MG INJ 100 ML IV SCH ×2 (09:00→17:18)
[2016-10-07] MEDS: CINACALCET HYDROCHLORIDE 30 MG TAB PO SCH (09:00)
[2016-10-07] MEDS: ASPIRIN EC 81 MG TABEC PO SCH (09:00)
[2016-10-07] MEDS: GABAPENTIN 100 MG CAP PO SCH ×2 (09:00→23:39)
[2016-10-07] MEDS: SODIUM CHLORIDE 0.9% FLUSH 10 ML FLUSH IV FLUSH SCH (09:00)
[2016-10-07] MEDS: PSYLLIUM FIBER SF/GF 6 GM POWD PKT PO SCH (09:00)
[2016-10-07] MEDS: FIDAXOMICIN 200 MG TAB PO SCH ×2 (09:00→23:40)
[2016-10-07] MEDS: SODIUM HYPOCHLORITE 0.25% 500 ML BTL TOPICAL SCH (09:00)
[2016-10-07] MEDS: INSULIN DETEMIR 100 UNITS/ML VIAL SQ SCH (09:00)
[2016-10-07] MEDS: LACTOBACILLUS ACIDOPHILUS TAB PO SCH ×3 (09:00→17:18)
[2016-10-07] MEDS: CALCITRIOL 0.25 MCG CAP PO SCH (09:00)
[2016-10-07] MEDS: THYROID 60 MG TAB PO SCH (09:00)
[2016-10-07] MEDS: PANTOPRAZOLE SODIUM 40 MG VIAL IV SCH (09:00)
--- NOTE | 2016-10-07 10:47 | HHI.PR ---
Subjective Remarks Denies any CP or SOB. Continues to have frequent loose stools rectal tube in place Objective Vital Signs Date Time Temp Pulse Resp B/P Pulse Ox O2 Delivery O2 Flow Rate FiO2 10/07/16 08:33 97 10/07/16 06:00 75 10/07/16 04:00 99.8 73 19 129/78 97 10/07/16 04:00 73 10/07/16 02:00 77 10/07/16 00:00 81 10/07/16 00:00 99.7 81 15 139/66 96 10/06/16 22:00 69 10/06/16 20:00 98.4 69 17 115/55 97 10/06/16 20:00 97 Room Air 10/06/16 20:00 72 10/06/16 18:00 77 18 116/75 97 10/06/16 17:00 82 26 102/46 94 10/06/16 16:00 98.7 73 21 113/58 97 10/06/16 15:00 74 14 105/48 96 10/06/16 14:00 89 17 106/51 96 10/06/16 13:00 74 11 112/52 97 10/06/16 12:00 99.1 75 21 128/61 98 10/06/16 11:00 73 19 112/52 97 I/O 10/06/16 10/06/16 10/06/16 10/07/16 10/07/16 10/07/16 07:00 15:00 23:00 07:00 15:00 23:00 Intake Total 384 ml 755 ml 361 ml 169 ml Output Total 500 ml 150 ml 100 ml 100 ml Balance -116 ml 605 ml 261 ml 69 ml Intake Oral 400 ml 240 ml 60 ml IV Total 384 ml 355 ml 121 ml 109 ml Output Urine Total 0 ml 0 ml Stool Total 500 ml 150 ml 100 ml 100 ml # Voids 0 0 Result Diagram: 10/07/16 0506 10/07/16 0506 Objective Remarks GENERAL: Obese. Alert and cooperative SKIN: Warm and dry. Multiple wounds present in Panus and coccyx region HEAD: Normocephalic. EYES: No scleral icterus. No injection or drainage. NECK: Supple, trachea midline. No JVD or lymphadenopathy. CARDIOVASCULAR: Regular rate and rhythm without murmurs, gallops, or rubs. RESPIRATORY: Breath sounds equal bilaterally. No accessory muscle use. GASTROINTESTINAL: Abdomen soft, non-tender, nondistended. MUSCULOSKELETAL: No cyanosis, or edema. BACK: Nontender without obvious deformity. No CVA tenderness. Medications and IVs Current Medications Medications (Trade) Dose Ordered Sig/Soren Route Start Time Stop Time Status Last Admin (Zofran Inj) 4 mg Q6H PRN IVP 09/30/16 20:45 (Narcan Inj) 0.4 mg UNSCH PRN IV 09/30/16 20:45 (Xanax) 0.25 mg Q6H PRN PO 09/30/16 20:45 10/04/16 09:01 (Ecotrin Ec) 81 mg DAILY PO 10/01/16 09:00 10/07/16 09:00 (Lipitor) 40 mg HS PO 09/30/16 21:00 10/06/16 21:50 (Rocaltrol) 0.5 mcg DAILY PO 10/01/16 09:00 10/07/16 09:00 (Vitamin D3) 10,000 units BID PO 09/30/16 21:00 10/07/16 09:00 (Sensipar) 30 mg DAILY PO 10/01/16 09:00 10/07/16 09:00 (Benadryl) 25 mg Q6H PRN PO 09/30/16 20:45 10/04/16 00:27 (Neurontin) 100 mg BID PO 09/30/16 21:00 10/07/16 09:00 (Gelfoam 12 Mm/7 Mm Top) 1 foam UNSCH PRN EXTERNAL 09/30/16 20:45 (Levemir Inj) 10 units DAILY SQ 10/01/16 09:00 10/07/16 09:00 (Antivert) 25 mg TID PRN PO 09/30/16 20:45 (Zofran Odt) 4 mg Q6HR PRN SL 09/30/16 20:45 (Renvela) 1,600 mg TID PO 10/01/16 09:00 Hold 10/06/16 09:14 (Dakin'S 0.25% Soln) 500 ml DAILY TOPICAL 10/01/16 09:00 10/07/16 09:00 ([place] Thyroid) 60 mg DAILY PO 10/01/16 09:00 10/07/16 09:00 (Vitamin B12) 1,000 mcg DAILY PO 10/01/16 09:00 10/07/16 09:00 (Roxicodone) 15 mg Q6H PRN PO 10/01/16 02:00 10/07/16 04:28 (Dificid) 200 mg BID PO 10/01/16 21:00 10/11/16 20:59 10/07/16 09:00 (VANCOMYCIN for oral use only) 500 mg Q6HR PO 10/01/16 18:00 10/07/16 04:27 (PROzac) 20 mg DAILY PO 10/03/16 09:00 10/07/16 09:00 (NS Flush) 2 ml UNSCH PRN IV FLUSH 10/02/16 15:30 (NS Flush) 2 ml BID IV FLUSH 10/02/16 21:00 10/07/16 09:00 (Tylenol) 650 mg Q6HR PRN PO 10/02/16 18:00 10/05/16 16:12 (Protonix Inj) 40 mg DAILY IV 10/03/16 09:00 10/07/16 09:00 Miscellaneous Information 1 Q361D XX 10/02/16 15:30 10/03/16 09:40 (Chlorhexidine 2% Cloth) 3 pack Taper DAILY@04 TOP 10/03/16 04:00 09/29/17 03:59 10/07/16 04:00 (Chlorhexidine 2% Cloth) 3 pack UNSCH PRN TOP 10/02/16 15:30 (Dulcolax Supp) 10 mg DAILY PRN RECTAL 10/02/16 16:00 (D50w (Vial) Inj) 50 ml UNSCH PRN IV 10/02/16 15:45 Glucagon 1 mg 1 mg UNSCH PRN OTHER 10/02/16 15:45 Metronidazole 100 ml @ 100 mls/hr Q8H IV 10/02/16 17:00 10/07/16 09:00 (Neosynephrine Inj/D5W 500 ml Inj) 500 ml @ 0 mls/hr TITRATE IV 10/02/16 17:00 10/05/16 21:33 (Brethine Inj) 1 mg UNSCH PRN SQ 10/02/16 17:00 (Dilaudid Pf Inj) 0.5 mg Q6H PRN IV PUSH 10/03/16 19:45 10/06/16 21:48 Midodrine 10 mg 10 mg TID@07,12,19 PO 10/04/16 19:00 10/07/16 04:28 (NS 1000 ml Inj) 1,000 ml @ 0 mls/hr TITRATE PRN IV 10/05/16 11:00 10/05/16 10:48 Heparin Sodium (Porcine) 8000 units 8,000 units UNSCH PRN IV FLUSH 10/05/16 11:00 Sodium Chloride 1,000 ml @ 200 mls/hr Q5H PRN IV 10/05/16 11:00 (NS 250 ml Inj) 200 ml @ 0 mls/hr UNSCH PRN IV 10/05/16 11:00 (Mannitol Inj) 12.5 gm UNSCH PRN IV 10/05/16 11:00 (Albumin 25% Inj) 25 gm UNSCH PRN IV 10/05/16 11:00 (NS Flush) 5 ml UNSCH PRN IV FLUSH 10/05/16 11:00 (Heparin Inj) Dwell Heparin to f... UNSCH PRN OTHER 10/05/16 11:00 10/05/16 10:47 (Gentamicin (Dialysis) Inj) 10 mg UNSCH PRN OTHER 10/05/16 11:00 10/05/16 10:47 (Gelfoam 12 Mm/7 Mm Top) 1 foam UNSCH PRN TOPICAL 10/05/16 11:00 (Zofran Inj) 4 mg UNSCH PRN IV 10/05/16 11:00 (Benadryl) 25 mg UNSCH PRN PO 10/05/16 11:00 (Nitrostat Sl) 0.4 mg UNSCH PRN SL 10/05/16 11:00 (Catapres) 0.1 mg UNSCH PRN PO 10/05/16 11:00 (Epogen Inj) 10,000 units UNSCH PRN IV 10/05/16 11:00 10/05/16 10:47 (Lactinex) 1 tab TID PO 10/05/16 13:00 10/07/16 09:00 (Metamucil Smooth Texture Sf/ Gf Pkt) 1 pkt BID PO 10/06/16 21:00 10/07/16 09:00 (Lactinex Pkt) 1 gm TID PO 10/06/16 18:00 (Remeron) 15 mg HS PO 10/07/16 21:00 Assessment and Plan Problem List: (1) Symptomatic anemia Status: Acute Plan: Transfused 3 units of PRBC initially. HBG stable at 9.0 today GI consulted no obvious signs of bleeding. (2) End stage kidney disease Status: Chronic Plan: Portfolio Architect consulted. 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 Well controlled. On Levemir and SS insulin only (4) Pressure ulcer of coccygeal region Status: Acute Plan: Wound care consulted and managing. On air bed (5) Anxiety Status: Acute Plan: Patient with anxiety and depression. On Prozac increased and Xanax PRN (6) C. difficile diarrhea Status: Acute Plan: ID consulted On oral vancomycin and Dificid. IV Flagyl Rectal tube present (7) Bacteremia Status: Acute Plan: Blood cultures with different strains of coag neg staph and corynobacteria per ID note possible contamination. Sepsis likely C DIFF Vancomycin PO ordered and IV flagyl. Sepsis - likely 2/2 C.diff cont dificid x 10 days. Avoid systemic abx if feasible. (8) Hypokalemia Status: Acute Plan: potassium 3.5 Assessment and Plan Assessment and plan discussed with Dr. Freitas Discussed Condition With Nursing. Discharge Planning [facility] Physician Attestation I and the ACCOUNT OFFICER have both examined this patient and reviewed this note and I agree with these findings and plan of care. Betty Hood. [facility] Oct 07, 2016 10:47
--- NOTE | 2016-10-07 15:08 | HHI.IDPN ---
Subjective Subjective Remarks ID COVERAGE Notes reviewed Temps ok Off pressors C/O pain from the dignishield Still with diarrhea No new (+) BC Antibiotics po vanco IV flagyl dificid Past Medical History ESRD/HD Reviewed Allergies: Coded Allergies: Biaxin (Verified Allergy, Severe, swelling of face, 05/10/16) Iron (Verified Adverse Reaction, Severe, Constipation, 05/10/16) Morphine (Verified Adverse Reaction, Severe, 06/11/16) renal insufficiency. *MDRO Multi-Drug Resistant Organism (Verified Adverse Reaction, Unknown, VRE, MRSA, MDR-Pseudomonas, 09/02/16) VRE (abdominal wound) - 07/09/16 MDR-Pseudomonas (abdominal wound) - 07/09/16 MRSA (abdomen wound) - 08/28/16 Objective . Vital Signs Date Time Temp Pulse Resp B/P Pulse Ox O2 Delivery O2 Flow Rate FiO2 10/07/16 14:00 83 8 96/60 97 10/07/16 13:00 82 23 96/53 87 10/07/16 12:00 99.0 77 17 107/60 96 10/07/16 11:00 74 14 106/55 95 10/07/16 10:00 91 20 79/65 95 10/07/16 09:00 84 19 98 10/07/16 08:33 97 10/07/16 08:00 99.3 71 15 126/55 97 10/07/16 07:00 Room Air 10/07/16 06:00 75 10/07/16 04:00 99.8 73 19 129/78 97 10/07/16 04:00 73 10/07/16 02:00 77 10/07/16 00:00 81 10/07/16 00:00 99.7 81 15 139/66 96 10/06/16 22:00 69 10/06/16 20:00 98.4 69 17 115/55 97 10/06/16 20:00 97 Room Air 10/06/16 20:00 72 10/06/16 18:00 77 18 116/75 97 10/06/16 17:00 82 26 102/46 94 10/06/16 16:00 98.7 73 21 113/58 97 10/06/16 10/06/16 10/07/16 15:00 23:00 07:00 Intake Total 755 ml 361 ml 169 ml Output Total 150 ml 100 ml 100 ml Balance 605 ml 261 ml 69 ml Intake Oral 400 ml 240 ml 60 ml IV Total 355 ml 121 ml 109 ml Output Urine Total 0 ml Stool Total 150 ml 100 ml 100 ml # Voids 0 0 . Laboratory Tests Test 10/06/16 10/07/16 05:40 05:06 White Blood Count 15.2 TH/MM3 12.0 TH/MM3 Red Blood Count 3.36 MIL/MM3 3.30 MIL/MM3 Hemoglobin 9.0 GM/DL 9.0 GM/DL Hematocrit 28.9 % 28.6 % Mean Corpuscular Volume 86.0 FL 86.6 FL Mean Corpuscular Hemoglobin 26.8 PG 27.1 PG Mean Corpuscular Hemoglobin 31.2 % 31.4 % Concent Red Cell Distribution Width 20.0 % 20.2 % Platelet Count 323 TH/MM3 303 TH/MM3 Mean Platelet Volume 7.7 FL 7.6 FL Neutrophils (%) (Auto) 75.0 % Lymphocytes (%) (Auto) 11.1 % Monocytes (%) (Auto) 7.7 % Eosinophils (%) (Auto) 5.6 % Basophils (%) (Auto) 0.6 % Neutrophils # (Auto) 9.0 TH/MM3 Lymphocytes # (Auto) 1.3 TH/MM3 Monocytes # (Auto) 0.9 TH/MM3 Eosinophils # (Auto) 0.7 TH/MM3 Basophils # (Auto) 0.1 TH/MM3 CBC Comment DIFF FINAL Differential Comment Laboratory Tests Test 10/06/16 10/07/16 05:40 05:06 Sodium Level 134 MEQ/L 137 MEQ/L Potassium Level 3.6 MEQ/L 3.5 MEQ/L Chloride Level 99 MEQ/L 99 MEQ/L Carbon Dioxide Level 24.3 MEQ/L 25.0 MEQ/L Anion Gap 11 MEQ/L 13 MEQ/L Blood Urea Nitrogen 21 MG/DL 30 MG/DL Creatinine 3.43 MG/DL 3.92 MG/DL Estimat Glomerular Filtration 14 ML/MIN 12 ML/MIN Rate Random Glucose 155 MG/DL 107 MG/DL Calcium Level 7.4 MG/DL 7.5 MG/DL Protein Corrected Calcium 8.5 MG/DL Phosphorus Level 1.9 MG/DL 2.1 MG/DL Magnesium Level 1.8 MG/DL Total Protein 5.2 GM/DL Albumin 1.1 GM/DL Microbiology Date/Time Procedure Status Source Growth 10/04/16 20:00 Aerobic Blood Culture - Preliminary Resulted Blood Peripheral NO GROWTH IN 3 DAYS 10/04/16 20:00 Anaerobic Blood Culture - Preliminary Resulted Blood Peripheral NO GROWTH IN 3 DAYS 10/04/16 20:12 Aerobic Blood Culture - Preliminary Resulted Blood Peripheral NO GROWTH IN 3 DAYS 10/04/16 20:12 Anaerobic Blood Culture - Preliminary Resulted Blood Peripheral NO GROWTH IN 3 DAYS Imaging Last Impressions Chest X-Ray 10/02/16 0000 Signed Impressions: Service Date/Time: Sunday, October 02, 2016 15:49 - CONCLUSION: 1. Right IJ central line in good position without evidence for pneumothorax. 2. Cardiomegaly with mild positive fluid balance. 3. Minimal airspace disease in the left lower lung zone, likely atelectasis. Madhav Jacobs MD Physical Exam CONSTITUTIONAL/GENERAL: This is a morbidly obese female patient, in pain from her dignishield, [facility] SKIN: No jaundice, rashes, or lesions. HEENT: No icterus, no injection, moist oral muocsa NECK: Supple, not tender CARDIOVASCULAR: Regular rate and rhythm without murmurs, gallops, or rubs. . RESPIRATORY/CHEST: Decreased BS at bases GASTROINTESTINAL: Abdomen soft, non-tender, nondistended. Bowel sounds present. Multiple intact dressings in place MUSCULOSKELETAL: Extremities without clubbing, cyanosis, or edema. NEUROLOGICAL: awake alert, clear speech PSYCHIATRIC: irritable Assessment & Plan Remarks Hypervirulent 027 C.diff strain Blood cultures with different strains of coag neg staph and corynebacteria, cw contamination Sepsis - likely 2/2 C.diff Chronic wounds - abd wounds are clean with no necrotic tissue L hip wound is a concern over extensve necrosis but no e/o active infx Sacral wound is deep and sows poor healing but no active infx ESRD, HD Persistent fever and leukocytosis - most likley 2/2 C.diff - improving PLAN Continue dificid x 10 days Continue vanco oral Continue flagyl IV Follow repeat blood clx Avoid systemic abx if feasible D/W Shea Johnson MD Oct 07, 2016 15:08
--- NOTE | 2016-10-07 17:10 | HHI.CCPN ---
Subjective Remarks/Hospital Course This is a 55-year-old female with history of end-stage renal disease on dialysis TRS who presented for treatment of low hemoglobin. The patient was noted to have symptomatic anemia with a hemoglobin of 6.9 and she was referred to the hospital by by Dr. Jimenez her behavioral health technician. She denies any abdominal pain, black or tarry stools, hematochezia, hematemesis. She is currently being treated at [facility]. She is being treated for C. difficile . She has been having diarrhea for 3 weeks. She endorses some fatigue. She reports chronic wounds on her buttocks which are being cared for at [facility]. During her workup GI was consulted the patient was scheduled for an EGD today, for anemia. Prior to entering the OR the patient was noted to be initially tachycardic with a heart rate in the 130s and received a liter bolus of LR. Noted to have hypoxemia O2 sat was 93%, and precipitous drop with a systolic blood pressure of 70/30. Critical care medicine was consulted in PACU by Dr. Pacheco for management. Low-dose phenylephrine IV was initiated. A central line and arterial line were placed by anesthesiologist, Dr. Pacheco. Upon my initial assessment in PACU the patient was noted to be semi-recombinant when placed supine patient's blood pressure was 68/34-> 99/39 low-dose phenylephrine was initiated as central line in a line will be placed by Dr. Pacheco. The patient was alert and oriented and complaining of chronic back pain. Subjective: 10/03: The patient continues on Mukesh-Synephrine infusion, unable to wean. Diet advanced a heart healthy. General surgery consulted for wound care, awaiting recommendations. Patient noted to have pre-existing sacral wounds. Diarrhea secondary to C. difficile, fecal containment rectal tube placement, patient complaining of pain. 10/04: Pain well controlled, the patient continues on phenylephrine infusion secondary to hypotension. Hemoglobin stable will continue to monitor. 10/05:Afebrile. The patient was restarted on Midodrine TID, still unable wean Phenylephrine.Discussion with Dr. Freitas (patient's personal physician), and dialysis nurse. The patient's MAP normally is less than 60mmHg. Patient's systolic blood pressure normally ranges in low 90s. Pain well controlled. 10/06: Awake and alert. Resting in bed comfortably. Remains on Mukesh-Synephrine which is being titrated down. Not in any acute distress. 10/07: Awake and alert. Off Mukesh-Synephrine since yesterday. Denies any shortness of breath. Objective Vital Signs Date Time Temp Pulse Resp B/P Pulse Ox O2 Delivery O2 Flow Rate FiO2 10/07/16 14:00 83 8 96/60 97 10/07/16 12:00 99.0 10/07/16 07:00 Room Air 10/05/16 21:07 21 10/04/16 09:22 2.00 Intake and Output 10/06/16 10/06/16 10/07/16 08:00 16:00 00:00 Intake Total 384 ml 755 ml 361 ml Output Total 500 ml 150 ml 100 ml Balance -116 ml 605 ml 261 ml Result Diagram: 10/07/16 0506 10/07/16 0506 Objective Remarks GENERAL: Morbidly obese female, lying semi-recumbent in bed in no distress SKIN: Warm and dry. HEAD: Atraumatic. Normocephalic. EYES: Pupils equal and round. No scleral icterus. No injection or drainage. ENT: No nasal bleeding or discharge. Mucous membranes pink and moist. Uvula midline. Mallampati class III. Currently on room air NECK: Trachea midline. No JVD. CARDIOVASCULAR: Normal rate, regular rhythm. RESPIRATORY: No accessory muscle use. Clear to auscultation. Breath sounds equal bilaterally. Room air GASTROINTESTINAL: Abdomen soft, non-tender, nondistended. No guarding. MUSCULOSKELETAL: Extremities without clubbing, cyanosis, noted cellulitis, erythema , scaling bilateral lower extremities. Left arm AV fistula NEUROLOGICAL: Awake and alert. RASS 0. No gross focal/sensory deficits. Follows commands in all 4 extremities. A/P Assessment and Plan Assessment Hypotension most likely secondary to septic shock, and acute blood loss anemia Acute GI bleed Acute on chronic anemia End-stage renal disease Diabetes mellitus Super morbid obesity Chronic pain syndrome Persistent Leukocytosis Neurologic: - Neurochecks per ICU protocol -Dilaudid 0.5 mg every 6 hours when necessary for breakthrough pain -Tylenol 650 mg every 6 hours when necessary for temperature greater than 100.5 Respiratory: -Bronchodilators every 4 hours when necessary for wheezing -Maintain O2 sat greater than 92%, currently on room air -Incentive spirometry every one hour while awake Cardiovascular: -Off phenylephrine since 10/06. -10/05 Midodrine 10 mg 3 times a day -Maintain MAP greater than 60mmHg Renal: -Nephrology following -Hemodialysis per nephrology -- Strict I/Os FEN/GI: -Monitor BMP -Heart healthy diet per GI -Fecal Containment device for diarrhea -GI following-Dr. Waldrop-tenative plan for colonoscopy ,will plan for when patient is hemodynamically stable Heme/ID: - Monitor CBC -09/27 C. difficile positive- on Flagyl and vancomycin -09/30 Blood culture-staph capitis, staph auricularis -ID following Dr. Adorno -Transfuse for hemoglobin less than 8 Endocrine: Glucose monitoring per ICU protocol low dose regimen every 6 hours MSK -Pre-existing/prehospitalization large sacral ulcer -Follow-up wound care instructions -- SSI Prophylaxis: GI Prophylaxis Protonix IV DVT Prophylaxis -- SCD's ,Heparin 5000 SQ BID Lines: Peripheral IV. Central line, discontinue arterial line 10/07 Dispo: Level 3 possible plan for transfer to [facility]. Being followed by Dr. Freitas. Gilberto Bernla MD Oct 07, 2016 17:10
[2016-10-07] MEDS: HYDROmorphone HCL PF 1 MG/ML VIAL IV PUSH PRN (17:31)
--- NOTE | 2016-10-07 18:21 | HHI.NPPN ---
Subjective General Problems: Anemia Renal Failure: End Stage Renal Disease History of Present Illness 55-year-old female known to me from before with past medical history of end-stage renal disease on hemodialysis, chronic anemia with recurrent blood transfusion, multiple abdominal wounds with debridement, history of anxiety, depression, arthritis, diabetes mellitus, morbid obesity, hypothyroidism was sent to the hospital because of severe anemia. I was called to see the patient for the management of hemodialysis. She has been on hemodialysis Friday, and Friday. Additional Remarks Patient is alert, feeling tired, diarrhea persists with rectal tube causing some pain. Review of Systems General Constitutional: Fatigue Respiratory Lungs: SOB Cardiovascular Cardiac: GRIFFIN Gastrointestinal Gastrointestinal: Abdominal Pain, Nausea & Vomiting Objective Data Data 10/06/16 10/07/16 19:00 07:00 Intake Total 755 ml 530 ml Output Total 150 ml 200 ml Balance 605 ml 330 ml Intake Oral 400 ml 300 ml IV Total 355 ml 230 ml Output Urine Total 0 ml Stool Total 150 ml 200 ml # Voids 0 Vital Signs Date Time Temp Pulse Resp B/P Pulse Ox O2 Delivery O2 Flow Rate FiO2 10/07/16 17:00 75 17 94/55 96 10/07/16 16:02 77 4 89/51 100 10/07/16 16:01 83 10 83/46 99 10/07/16 16:00 99.7 81 8 94 10/07/16 15:00 77 0 127/57 89 10/07/16 14:00 83 8 96/60 97 10/07/16 13:00 82 23 96/53 87 10/07/16 12:00 99.0 77 17 107/60 96 10/07/16 11:00 74 14 106/55 95 10/07/16 10:00 91 20 79/65 95 10/07/16 09:00 84 19 98 10/07/16 08:33 97 10/07/16 08:00 99.3 71 15 126/55 97 10/07/16 07:00 Room Air 10/07/16 06:00 75 10/07/16 04:00 99.8 73 19 129/78 97 10/07/16 04:00 73 10/07/16 02:00 77 10/07/16 00:00 81 10/07/16 00:00 99.7 81 15 139/66 96 10/06/16 22:00 69 10/06/16 20:00 98.4 69 17 115/55 97 10/06/16 20:00 97 Room Air 10/06/16 20:00 72 -: 10/07/16 0506 10/07/16 0506 Physical Exam General Appearance: No Acute Distress, Comfortable Eyes Eye Exam: Pupils Equal Throat Throat Exam: Oral Mucosa [place] & Moist Neck Neck Exam: Neck Supple Pulmonary Resp Exam: Breath Sounds Equal, No Distress, Decreased Bases Cardiology CV Exam: Regular, Normal Sinus Rhythm Gastrointestinal/Abdomen GI Exam: Soft, Non-Tender, Bowel Sounds Present, Distended Extremeties Extremities Exam: Moderate Edema, Pitting Edema, Dependent Edema Neurologic Neuro Exam: Alert, Awake, Oriented Psychiatric Psych Exam: Appropriate Responses Assessment/Plan Assessment Summary: Anemia of CKD, Hypotension, End Stage Renal Disease Problem List: (1) Wounds, multiple (2) Chronic back pain (3) Diabetes (4) Malnutrition (5) Anemia in chronic kidney disease (CKD) (6) End stage renal disease on dialysis Plan Patient has now stable Hgb. C Diff colitis on PO Vancomycin low PO4 2.1, off Renvela, encourage her to eat BP is still low, on Midodrine. Continue Epogen with HD. BC growing Staph. coag neg. ID following. On Vanco. and Flagyl for C. difficile. HD will be in AM. Problem Qualifiers (1) Diabetes: (2) Anemia in chronic kidney disease (CKD): Qualified Code: N18.6 - Anemia in chronic kidney disease, on chronic dialysis Valentin Jimenez MD Oct 07, 2016 18:21
[2016-10-07] MEDS: MIRTAZAPINE 15 MG TAB PO SCH (23:39)
[2016-10-08] VITALS (12 sets, daily range): BP systolic 105–162; BP diastolic 53–70; PULSE 69–99; RESP 16–24; TEMP 98.2–99.3; O2SAT 96–100
[2016-10-08] MEDS: HYDROmorphone HCL PF 1 MG/ML VIAL IV PUSH PRN ×4 (00:01→18:17)
[2016-10-08] MEDS: VANCOMYCIN 500 MG VIAL (FOR ORAL USE ONLY) PO SCH ×4 (06:22→18:16)
[2016-10-08] MEDS: metroNIDAZOLE 500 MG INJ 100 ML IV SCH ×3 (06:23→18:17)
[2016-10-08] MEDS: SODIUM HYPOCHLORITE 0.25% 500 ML BTL TOPICAL SCH (09:00)
[2016-10-08] MEDS: SODIUM CHLORIDE 0.9% FLUSH 10 ML FLUSH IV FLUSH SCH ×2 (09:00→20:57)
[2016-10-08] MEDS: PSYLLIUM FIBER SF/GF 6 GM POWD PKT PO SCH (09:00)
[2016-10-08] MEDS: INSULIN DETEMIR 100 UNITS/ML VIAL SQ SCH (09:00)
--- NOTE | 2016-10-08 09:33 | HHI.PR ---
Subjective Remarks Denies any CP or SOB. Dialysis today. Rectal tube remains in place Objective Vital Signs Date Time Temp Pulse Resp B/P Pulse Ox O2 Delivery O2 Flow Rate FiO2 10/08/16 09:27 100 10/08/16 07:00 Room Air 98 10/08/16 04:15 98.2 76 22 138/70 10/08/16 04:00 80 10/08/16 02:00 71 10/08/16 00:00 99.1 73 20 133/60 96 10/08/16 00:00 71 10/07/16 22:00 100 10/07/16 20:52 100 21 10/07/16 20:00 99.1 73 20 130/60 96 10/07/16 20:00 Room Air 2.00 21 10/07/16 20:00 100 10/07/16 17:00 75 17 94/55 96 10/07/16 16:02 77 4 89/51 100 10/07/16 16:01 83 10 83/46 99 10/07/16 16:00 99.7 81 8 94 10/07/16 15:00 77 0 127/57 89 10/07/16 14:00 83 8 96/60 97 10/07/16 13:00 82 23 96/53 87 10/07/16 12:00 99.0 77 17 107/60 96 10/07/16 11:00 74 14 106/55 95 10/07/16 10:00 91 20 79/65 95 I/O 10/07/16 10/07/16 10/07/16 10/08/16 10/08/16 10/08/16 07:00 15:00 23:00 07:00 15:00 23:00 Intake Total 169 ml 430 ml 235 ml 285 ml Output Total 100 ml 400 ml 200 ml 100 ml Balance 69 ml 30 ml 35 ml 185 ml Intake Oral 60 ml 200 ml 150 ml 100 ml IV Total 109 ml 230 ml 85 ml 185 ml Output Urine Total 0 ml 0 ml Stool Total 100 ml 400 ml 200 ml 100 ml # Voids 0 1 Result Diagram: 10/07/16 0506 10/07/16 0506 Objective Remarks GENERAL: Obese. Alert and cooperative SKIN: Warm and dry. Multiple wounds present in Panus and coccyx region HEAD: Normocephalic. EYES: No scleral icterus. No injection or drainage. NECK: Supple, trachea midline. No JVD or lymphadenopathy. CARDIOVASCULAR: Regular rate and rhythm without murmurs, gallops, or rubs. RESPIRATORY: Breath sounds equal bilaterally. No accessory muscle use. GASTROINTESTINAL: Abdomen soft, non-tender, nondistended. MUSCULOSKELETAL: No cyanosis, or edema. BACK: Nontender without obvious deformity. No CVA tenderness. Medications and IVs Current Medications Medications (Trade) Dose Ordered Sig/Soren Route Start Time Stop Time Status Last Admin (Zofran Inj) 4 mg Q6H PRN IVP 09/30/16 20:45 (Narcan Inj) 0.4 mg UNSCH PRN IV 09/30/16 20:45 (Xanax) 0.25 mg Q6H PRN PO 09/30/16 20:45 10/04/16 09:01 (Ecotrin Ec) 81 mg DAILY PO 10/01/16 09:00 10/07/16 09:00 (Lipitor) 40 mg HS PO 09/30/16 21:00 10/06/16 21:50 (Rocaltrol) 0.5 mcg DAILY PO 10/01/16 09:00 10/07/16 09:00 (Vitamin D3) 10,000 units BID PO 09/30/16 21:00 10/07/16 23:39 (Sensipar) 30 mg DAILY PO 10/01/16 09:00 10/07/16 09:00 (Benadryl) 25 mg Q6H PRN PO 09/30/16 20:45 10/04/16 00:27 (Neurontin) 100 mg BID PO 09/30/16 21:00 10/07/16 23:39 (Gelfoam 12 Mm/7 Mm Top) 1 foam UNSCH PRN EXTERNAL 09/30/16 20:45 (Levemir Inj) 10 units DAILY SQ 10/01/16 09:00 10/07/16 09:00 (Antivert) 25 mg TID PRN PO 09/30/16 20:45 (Zofran Odt) 4 mg Q6HR PRN SL 09/30/16 20:45 (Renvela) 1,600 mg TID PO 10/01/16 09:00 Hold 10/06/16 09:14 (Dakin'S 0.25% Soln) 500 ml DAILY TOPICAL 10/01/16 09:00 10/07/16 09:00 ([place] Thyroid) 60 mg DAILY PO 10/01/16 09:00 10/07/16 09:00 (Vitamin B12) 1,000 mcg DAILY PO 10/01/16 09:00 10/07/16 09:00 (Roxicodone) 15 mg Q6H PRN PO 10/01/16 02:00 10/07/16 12:28 (Dificid) 200 mg BID PO 10/01/16 21:00 10/11/16 20:59 10/07/16 23:40 (VANCOMYCIN for oral use only) 500 mg Q6HR PO 10/01/16 18:00 10/08/16 06:22 (PROzac) 20 mg DAILY PO 10/03/16 09:00 10/07/16 09:00 (NS Flush) 2 ml UNSCH PRN IV FLUSH 10/02/16 15:30 (NS Flush) 2 ml BID IV FLUSH 10/02/16 21:00 10/07/16 09:00 (Tylenol) 650 mg Q6HR PRN PO 10/02/16 18:00 10/05/16 16:12 (Protonix Inj) 40 mg DAILY IV 10/03/16 09:00 10/07/16 09:00 Miscellaneous Information 1 Q361D XX 10/02/16 15:30 10/03/16 09:40 (Chlorhexidine 2% Cloth) Taper DAILY@04 TOP 10/03/16 04:00 09/29/17 03:59 10/07/16 04:00 (Chlorhexidine 2% Cloth) 3 pack UNSCH PRN TOP 10/02/16 15:30 (Dulcolax Supp) 10 mg DAILY PRN RECTAL 10/02/16 16:00 (D50w (Vial) Inj) 50 ml UNSCH PRN IV 10/02/16 15:45 Glucagon 1 mg 1 mg UNSCH PRN OTHER 10/02/16 15:45 Metronidazole 100 ml @ 100 mls/hr Q8H IV 10/02/16 17:00 10/08/16 06:23 (Neosynephrine Inj/D5W 500 ml Inj) 500 ml @ 0 mls/hr TITRATE IV 10/02/16 17:00 10/05/16 21:33 (Brethine Inj) 1 mg UNSCH PRN SQ 10/02/16 17:00 (Dilaudid Pf Inj) 0.5 mg Q6H PRN IV PUSH 10/03/16 19:45 10/08/16 06:23 Midodrine 10 mg 10 mg TID@07,12,19 PO 10/04/16 19:00 10/07/16 17:30 (NS 1000 ml Inj) 1,000 ml @ 0 mls/hr TITRATE PRN IV 10/05/16 11:00 10/05/16 10:48 Heparin Sodium (Porcine) 8000 units 8,000 units UNSCH PRN IV FLUSH 10/05/16 11:00 Sodium Chloride 1,000 ml @ 200 mls/hr Q5H PRN IV 10/05/16 11:00 (NS 250 ml Inj) 200 ml @ 0 mls/hr UNSCH PRN IV 10/05/16 11:00 (Mannitol Inj) 12.5 gm UNSCH PRN IV 10/05/16 11:00 (Albumin 25% Inj) 25 gm UNSCH PRN IV 10/05/16 11:00 (NS Flush) 5 ml UNSCH PRN IV FLUSH 10/05/16 11:00 (Heparin Inj) Dwell Heparin to f... UNSCH PRN OTHER 10/05/16 11:00 10/05/16 10:47 (Gentamicin (Dialysis) Inj) 10 mg UNSCH PRN OTHER 10/05/16 11:00 10/05/16 10:47 (Gelfoam 12 Mm/7 Mm Top) 1 foam UNSCH PRN TOPICAL 10/05/16 11:00 (Zofran Inj) 4 mg UNSCH PRN IV 10/05/16 11:00 (Benadryl) 25 mg UNSCH PRN PO 10/05/16 11:00 (Nitrostat Sl) 0.4 mg UNSCH PRN SL 10/05/16 11:00 (Catapres) 0.1 mg UNSCH PRN PO 10/05/16 11:00 (Epogen Inj) 10,000 units UNSCH PRN IV 10/05/16 11:00 10/05/16 10:47 (Lactinex) 1 tab TID PO 10/05/16 13:00 10/07/16 17:18 (Metamucil Smooth Texture Sf/ Gf Pkt) 1 pkt BID PO 10/06/16 21:00 10/07/16 09:00 (Lactinex Pkt) 1 gm TID PO 10/06/16 18:00 (Remeron) 15 mg HS PO 10/07/16 21:00 10/07/16 23:39 Assessment and Plan Problem List: (1) Symptomatic anemia Status: Acute Plan: Transfused 3 units of PRBC initially. HBG stable GI consulted no obvious signs of bleeding. Recheck in AM (2) End stage kidney disease Status: Chronic Plan: Chemist Physical consulted. 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 Has remained well controlled. On Levemir and SS insulin only (4) Pressure ulcer of coccygeal region Status: Acute Plan: Wound care consulted and managing. On air bed (5) Anxiety Status: Acute Plan: Patient with anxiety and depression. On Prozac increased and Xanax PRN (6) C. difficile diarrhea Status: Acute Plan: ID consulted On oral vancomycin and Dificid IV Flagyl Rectal tube present (7) Bacteremia Status: Acute Plan: Blood cultures with different strains of coag neg staph and corynobacteria per ID note possible contamination. Sepsis likely C DIFF Vancomycin PO ordered and IV flagyl. Sepsis - likely 2/2 C.diff cont dificid x 10 days. Avoid systemic abx if feasible. (8) Hypokalemia Status: Acute Plan: Labs in AM Assessment and Plan Assessment and plan discussed with Dr. Freitas Discussed Condition With Nursing Discharge Planning Plan is for discharge to [facility]. Family is to go today to evaluate. Physician Attestation I and the SUPERVISOR CAB have both examined this patient and reviewed this note and I agree with these findings and plan of care. Betty Hood [facility] Oct 08, 2016 09:33
[2016-10-08] MEDS: INSULIN ASPART SUPPLEMENTAL SCALE SQ SCH ×2 (10:46→16:00)
[2016-10-08] MEDS: PANTOPRAZOLE SODIUM 40 MG VIAL IV SCH (10:48)
[2016-10-08] MEDS: CALCITRIOL 0.25 MCG CAP PO SCH (10:48)
[2016-10-08] MEDS: CHOLECALCIFEROL (VIT D3) 5000 UNIT CAP PO SCH ×2 (10:49→20:56)
[2016-10-08] MEDS: THYROID 60 MG TAB PO SCH (10:49)
[2016-10-08] MEDS: ASPIRIN EC 81 MG TABEC PO SCH (10:49)
[2016-10-08] MEDS: GABAPENTIN 100 MG CAP PO SCH ×2 (10:49→20:56)
[2016-10-08] MEDS: FLUoxetine HCL 20 MG CAP PO SCH (10:49)
[2016-10-08] MEDS: LACTOBACILLUS ACIDOPHILUS TAB PO SCH ×3 (10:49→18:16)
[2016-10-08] MEDS: CINACALCET HYDROCHLORIDE 30 MG TAB PO SCH (10:50)
[2016-10-08] MEDS: CYANOCOBALAMIN 1,000 MCG TAB PO SCH (10:50)
[2016-10-08] MEDS: FIDAXOMICIN 200 MG TAB PO SCH ×2 (10:50→20:56)
[2016-10-08] MEDS: LACTOBACILLUS ACIDOPHILUS 1 GM PACKET PO SCH ×3 (10:50→18:00)
[2016-10-08] MEDS: MIDODRINE 5 MG TAB PO SCH ×2 (10:55→18:17)
[2016-10-08] MEDS ORDERED: IPRASOL INH (15:43)
[2016-10-08] MEDS ORDERED: DIFI200T PO (15:43)
[2016-10-08] MEDS ORDERED: MIDO5TAB PO (15:43)
[2016-10-08] MEDS ORDERED: VANC500I3 PO (15:43)
[2016-10-08] MEDS ORDERED: LACTG PO (15:43)
[2016-10-08] MEDS ORDERED: FLUO20CA12 PO (15:43)
--- NOTE | 2016-10-08 15:53 | HHI.DS ---
Discharge Summary Admission Date Sep 30, 2016 at 20:02 Admitting Diagnosis anemia, leukocytosis, history of C. difficile (1) C. difficile diarrhea (2) Nonhealing nonsurgical wound (3) Wound of sacral region (4) End stage kidney disease Brief History This is a 55-year-old female with history of end-stage renal disease on dialysis TRS who is sent here for treatment of low hemoglobin. The patient reports she had lab work 2 days ago at dialysis and today she was informed that her symptom and was 6.9 and she was sent here by Dr. Jimenez her spray ii painter. She has had issues with anemia in the past. She denies any abdominal pain, black or tarry stools, hematochezia, hematemesis. She is currently being treated at [facility]. She is being treated for C. difficile with Flagyl reportedly. She has been having diarrhea for 3 weeks. She endorses some fatigue. She reports chronic wounds on her buttocks which are being cared for at [facility]. She has no other complaints. CBC/BMP: 10/07/16 0506 10/07/16 0506 Significant Findings Laboratory Tests Test 10/06/16 10/07/16 05:40 05:06 White Blood Count 15.2 TH/MM3 12.0 TH/MM3 (4.0-11.0) (4.0-11.0) Red Blood Count 3.36 MIL/MM3 3.30 MIL/MM3 (4.00-5.30) (4.00-5.30) Hemoglobin 9.0 GM/DL 9.0 GM/DL (11.6-15.3) (11.6-15.3) Hematocrit 28.9 % 28.6 % (35.0-46.0) (35.0-46.0) Mean Corpuscular Hemoglobin 26.8 PG (27.0-34.0) Mean Corpuscular Hemoglobin 31.2 % 31.4 % Concent (32.0-36.0) (32.0-36.0) Red Cell Distribution Width 20.0 % 20.2 % (11.6-17.2) (11.6-17.2) Sodium Level 134 MEQ/L (136-145) Blood Urea Nitrogen 21 MG/DL (7-18) 30 MG/DL (7-18) Creatinine 3.43 MG/DL 3.92 MG/DL (0.50-1.00) (0.50-1.00) Estimat Glomerular Filtration 14 ML/MIN (>89) 12 ML/MIN (>89) Rate Random Glucose 155 MG/DL 107 MG/DL (74-106) (74-106) Calcium Level 7.4 MG/DL 7.5 MG/DL (8.5-10.1) (8.5-10.1) Phosphorus Level 1.9 MG/DL 2.1 MG/DL (2.5-4.9) (2.5-4.9) Total Protein 5.2 GM/DL (6.4-8.2) Neutrophils (%) (Auto) 75.0 % (16.0-70.0) Eosinophils (%) (Auto) 5.6 % (0.0-4.0) Neutrophils # (Auto) 9.0 TH/MM3 (1.8-7.7) Eosinophils # (Auto) 0.7 TH/MM3 (0-0.4) Albumin 1.1 GM/DL (3.4-5.0) PE at Discharge GENERAL: Obese. Alert and cooperative SKIN: Warm and dry. Multiple wounds present in Panus and coccyx region HEAD: Normocephalic. EYES: No scleral icterus. No injection or drainage. NECK: Supple, trachea midline. No JVD or lymphadenopathy. CARDIOVASCULAR: Regular rate and rhythm without murmurs, gallops, or rubs. RESPIRATORY: Breath sounds equal bilaterally. No accessory muscle use. GASTROINTESTINAL: Abdomen soft, non-tender, nondistended. MUSCULOSKELETAL: No cyanosis, or edema. BACK: Nontender without obvious deformity. No CVA tenderness. Hospital Course This is a 55-year-old female with history of end-stage renal disease on dialysis TRS who is sent here for treatment of low hemoglobin. The patient reports she had lab work 2 days ago at dialysis and today she was informed that her symptom and was 6.9 and she was sent here by Dr. Jimenez her spray ii painter. She has had issues with anemia in the past. She denies any abdominal pain, black or tarry stools, hematochezia, hematemesis. She is currently being treated at [facility]. She is being treated for C. difficile with Flagyl reportedly. She has been having diarrhea for 3 weeks. She endorses some fatigue. She reports chronic wounds on her buttocks which are being cared for at [facility]. She was followed by nephrology, ID, wound care, GI, and critical care during her stay. Her hospitalization was complicated by hypotension and she was transferred to ICU treated with norsynephrine. She was then put on midodrine and has tolerated well. She also will need a colonoscopy when able and stable. She is a high level of care and will be discharged to [facility]. Discharge plans underway and she will continue to be followed by Dr. Freitas. Pt Condition on Discharge: Fair Discharge Disposition: Rehab Inpatient Discharge Instructions DIET: Follow Instructions for: Renal Failure Diet Activities you can perform: Regular-No Restrictions Follow up Referrals: PCP Follow-up with Zena New Medications: Fidaxomicin (Dificid) 200 Mg Tab 200 MG PO BID Diarrhea #14 TAB Fluoxetine (Fluoxetine) 20 Mg Capsule 20 MG PO DAILY Depression Control #30 TAB Ipratropium-Albuterol Neb (Duoneb) 0.5-2.5 Mg/3 Ml Neb 1 AMPULE INH Q4HR NEB PRN WHEEZING #30 ML Lactobacillus Acidophilus (Floranex) 1 Gm Pkt 1 GM PO TID Diarrhea #90 PACK Midodrine (Midodrine) 5 Mg Tab 10 MG PO TID@07,12,19 Blood Pressure Management #120 TAB Vancomycin Inj (Vancomycin Inj) 500 Mg Inj 500 MG PO Q6HR Diarrhea #120 INJECTION Continued Medications: Alprazolam (Xanax) 0.25 Mg Tab 0.25 MG PO Q6H PRN ANXIETY Ref [address] (Aspirin 81) 81 Mg Tabdr 81 MG PO DAILY Ref 0 TAB Atorvastatin (Atorvastatin) 40 Mg Tab 40 MG PO HS Cholesterol Management #30 Ref 0 TAB Calcitriol (Calcitriol) 0.5 Mcg Cap 0.5 MCG PO DAILY Calcium Supplement #30 Ref 0 CAP Cholecalciferol (Vitamin D3) 10,000 Unit Tab 31103 UNITS PO BID Nutritional Supplement #1 Ref 0 BOTTLE Cinacalcet (Sensipar) 30 Mg Tab 30 MG PO DAILY CKD #30 Ref 0 TAB Diphenhydramine (Diphenhydramine) 25 Mg Cap 25 MG PO Q6H PRN ALLERGIES Ref 0 CAP Gabapentin (Gabapentin) 100 Mg Cap 100 MG PO BID #60 Ref 0 CAP Gelfoam Sponge (Gelfoam Sponge) 12-7 Mm Pad 1 FOAM TOP UNSCH PRN SEE LABEL COMMENTS #30 BOX Hydrocortisone Inj (Solu-Cortef Inj) 250 Mg Inj 250 MG IV PUSH ONCE Give over 30-60 seconds. PRN ALLERGIC REACTION #1 Ref 0 VIAL Insulin Detemir Inj (Levemir Inj) 1,000 unit/ 10 ML Vial 10 UNITS SQ DAILY Do not mix with any other Insulin. Blood Sugar Management Ref 0 VIAL Meclizine (Meclizine) 25 Mg Tab 25 MG PO TID PRN VERTIGO #30 CAP Megestrol Liq (Megestrol Liq) 40 Mg/Ml Susp 400 MG PO DAILY increase appetite #30 CAP Methylcobalamin (B-12) 1,000 Mcg Sub 1000 MCG PO DAILY Ondansetron Odt (Zofran Odt) 4 Mg Tab 4 MG SL Q6HR PRN Nausea/Vomiting #30 Ref 0 TAB Sodium Hypochlorite Topical (Dakins Solution Half Strength Topical) 0.2-0.25 % Soln 500 ML TOPICAL DAILY Infection #30 ML Thyroid ([place] Thyroid) 60 Mg Tab 60 MG PO DAILY t #30 TAB Discontinued Medications: Clonidine (Clonidine) 0.1 Mg Tab 0.1 MG PO Q6HR Blood Pressure Management #60 Ref 0 TAB Epinephrine Inj (Epinephrine Inj) 1 Mg/Ml Inj 0.3 MG IV PUSH ONCE PRN ALLERGIC REACTION #1 VIAL Epinephrine Inj (Epinephrine Inj) 1 Mg/Ml Inj 0.3 MG SQ ONCE Give with any signs of respiratory distress. PRN ALLERGIC REACTION #1 VIAL Fluoxetine (Prozac) 10 Mg Cap 10 MG PO DAILY Depression Control #30 Ref 0 CAP Insulin Detemir Inj (Levemir Inj) 1,000 unit/ 10 ML Vial 5 UNITS SQ HS Hold for BS less than 100mg/dl Blood Sugar Management Ref 0 VIAL Insulin Regular (Human) (Novolin R Relion) 100 Unit/Ml Inj Sennosides-Docusate Sodium (Senna Plus 8.6-50 mg) 1 Tab Tab 1 TAB PO BID constipation #30 Ref 0 TAB Sevelamer Carbonate (Renvela) 800 Mg Tab 1600 MG PO TID CKD #90 Ref 0 TAB Vancomycin Inj (Vancomycin Inj) 1,000 Mg Inj 1000 MG IV WITH DIALYSIS Infection Days 10 Ref 0 Betty Mccartney Oct 08, 2016 15:53
[2016-10-08 16:35] LABS: AUTOMATED NEUTROPHIL # 8.1 TH/MM3 (1.8-7.7); BASOPHIL # 0.1 TH/MM3 (0-0.2); BASOPHIL % 0.6 % (0.0-2.0); EOSINOPHIL # 0.2 TH/MM3 (0-0.4); EOSINOPHIL % 1.8 % (0.0-4.0); HEMATOCRIT 27.1 % (35.0-46.0); HEMO FLAGS DIFF FINAL; LYMPHOCYTE # 1.2 TH/MM3 (1.0-4.8); MEAN CORPUSCULAR HEMOGLOBIN 27.5 PG (27.0-34.0); MEAN CORPUSCULAR HGB CONC 31.7 % (32.0-36.0); MONO % 6.7 % (0.0-8.0); NEUT % 78.9 % (16.0-70.0); PLATELET COUNT 277 TH/MM3 (150-450); RED BLOOD COUNT 3.12 MIL/MM3 (4.00-5.30); RED CELL DISTRIBUTION WIDTH 19.6 % (11.6-17.2); WHITE BLOOD COUNT 10.3 TH/MM3 (4.0-11.0)
[2016-10-08 17:15] LABS: BICARBONATE 25.9 MEQ/L (21.0-32.0); POTASSIUM 3.4 MEQ/L (3.5-5.1)
[2016-10-08 18:04] LABS: CALCIUM-PROTEIN CORRECTED 8.6 MG/DL (8.5-10.1)
[2016-10-08] MEDS: ALPRAZolam 0.25 MG TAB PO PRN (18:16)
--- NOTE | 2016-10-08 18:34 | HHI.NPPN ---
Subjective General Problems: Anemia Renal Failure: End Stage Renal Disease History of Present Illness 55-year-old female known to me from before with past medical history of end-stage renal disease on hemodialysis, chronic anemia with recurrent blood transfusion, multiple abdominal wounds with debridement, history of anxiety, depression, arthritis, diabetes mellitus, morbid obesity, hypothyroidism was sent to the hospital because of severe anemia. I was called to see the patient for the management of hemodialysis. She has been on hemodialysis Friday, and Friday. Additional Remarks Patient is alert, seen during HD, alert, not in distress. Review of Systems General Constitutional: Fatigue Respiratory Lungs: SOB Cardiovascular Cardiac: GRIFFIN Gastrointestinal Gastrointestinal: Abdominal Pain, Nausea & Vomiting Objective Data Data 10/07/16 10/08/16 19:00 07:00 Intake Total 430 ml 520 ml Output Total 400 ml 300 ml Balance 30 ml 220 ml Intake Oral 200 ml 250 ml IV Total 230 ml 270 ml Output Urine Total 0 ml Stool Total 400 ml 300 ml # Voids 1 Vital Signs Date Time Temp Pulse Resp B/P Pulse Ox O2 Delivery O2 Flow Rate FiO2 10/08/16 14:00 79 10/08/16 12:00 99 10/08/16 12:00 98.7 99 18 121/54 97 Arterial Line 10/08/16 10:00 82 10/08/16 09:27 100 10/08/16 08:00 99.3 75 16 162/57 100 Arterial Line 10/08/16 08:00 75 10/08/16 07:00 Room Air 98 10/08/16 04:15 98.2 76 22 138/70 10/08/16 04:00 80 10/08/16 02:00 71 10/08/16 00:00 99.1 73 20 133/60 96 10/08/16 00:00 71 10/07/16 22:00 100 10/07/16 20:52 100 21 10/07/16 20:00 99.1 73 20 130/60 96 10/07/16 20:00 Room Air 2.00 21 10/07/16 20:00 100 -: 10/08/16 1200 10/08/16 1200 Physical Exam General Appearance: No Acute Distress, Comfortable Eyes Eye Exam: Pupils Equal Throat Throat Exam: Oral Mucosa [place] & Moist Neck Neck Exam: Neck Supple Pulmonary Resp Exam: Breath Sounds Equal, No Distress, Decreased Bases Cardiology CV Exam: Regular, Normal Sinus Rhythm Gastrointestinal/Abdomen GI Exam: Soft, Non-Tender, Bowel Sounds Present, Distended Extremeties Extremities Exam: Moderate Edema, Pitting Edema, Dependent Edema Neurologic Neuro Exam: Alert, Awake, Oriented Psychiatric Psych Exam: Appropriate Responses Assessment/Plan Assessment Summary: Anemia of CKD, Hypotension, End Stage Renal Disease Problem List: (1) Wounds, multiple (2) Chronic back pain (3) Diabetes (4) Malnutrition (5) Anemia in chronic kidney disease (CKD) (6) End stage renal disease on dialysis Plan Patient has now stable Hgb. C Diff colitis on PO Vancomycin low PO4 2.1, off Renvela, encourage her to eat BP is still low, on Midodrine. Continue Epogen with HD. BC growing Staph. coag neg. ID following. On Vanco. and Flagyl for C. difficile. HD now, removing fluid as tolerated. BP is stable. [facility] I will follow her there. Problem Qualifiers (1) Diabetes: (2) Anemia in chronic kidney disease (CKD): Qualified Code: N18.6 - Anemia in chronic kidney disease, on chronic dialysis Valentin Jimenez MD Oct 08, 2016 18:34
[2016-10-08] MEDS: MIRTAZAPINE 15 MG TAB PO SCH (20:56)
[2016-10-08] MEDS: ATORVASTATIN 40 MG TAB PO SCH (20:56)
== END 2016-10-08 21:45 | DRG 291 ==
LOC: NEPE 17:29 → NEDA 20:02 → N05B 23:52 → HIMN 10-02 13:43
PROVIDERS: ADMIT Family Medicine; ATTEND Family Medicine
PROC: 30233N1 Transfusion of Nonautologous Red Blood Cells into Peripheral Vein, Percutaneous Approach (ICD-10-PCS; principal; 2016-09-30)
PROC: 5A1D60Z (ICD-10-PCS; 2016-10-01)
PROC: 0DJ08ZZ Inspection of Upper Intestinal Tract, Via Natural or Artificial Opening Endoscopic (ICD-10-PCS; 2016-10-02)
DX: I13.2 Hypertensive heart and chronic kidney disease with heart failure and with stage 5 chronic kidney disease, or end stage renal disease (principal); A41.89 Other specified sepsis; R65.21 Severe sepsis with septic shock; L89.154 Pressure ulcer of sacral region, stage 4; A04.7 Enterocolitis due to Clostridium difficile; E46 Unspecified protein-calorie malnutrition; E11.22 Type 2 diabetes mellitus with diabetic chronic kidney disease; N18.6 End stage renal disease; K95.09 Other complications of gastric band procedure; Z68.43 Body mass index [BMI] 50.0-59.9, adult; I50.9 Heart failure, unspecified; D63.1 Anemia in chronic kidney disease; E66.01 Morbid (severe) obesity due to excess calories; J44.9 Chronic obstructive pulmonary disease, unspecified; G47.30 Sleep apnea, unspecified; E78.5 Hyperlipidemia, unspecified; E03.9 Hypothyroidism, unspecified; R19.5 Other fecal abnormalities; S71.002A Unspecified open wound, left hip, initial encounter; G89.4 Chronic pain syndrome; E87.6 Hypokalemia; L73.2 Hidradenitis suppurativa; M19.90 Unspecified osteoarthritis, unspecified site; F32.9 Major depressive disorder, single episode, unspecified; F41.9 Anxiety disorder, unspecified; Z79.4 Long term (current) use of insulin; Z86.14 Personal history of Methicillin resistant Staphylococcus aureus infection; Z88.1 Allergy status to other antibiotic agents; Z88.5 Allergy status to narcotic agent; Z95.5 Presence of coronary angioplasty implant and graft; Z98.84 Bariatric surgery status; Z99.2 Dependence on renal dialysis
CPT/HCPCS: 36430; 71010; 80048; 80053; 80069; 82607; 82728; 82746; 82948; 83540; 83550; 83605; 83735; 84100; 84155; 84439; 84443; 84481; 85007; 85025; 85027; 85610; 85730; 86403; 86850; 86900; 86901; 86920; 87040; 87077; 87186; 87205; 87493; 87641; 90935; 94150; 94664; 96365; 96374; 96375; C9113; J0131; J1170; J1580; J1644; J1815; J2370; J2405; J3370; J3475; J7030; J7040; J7050; J7060; J7120; J7613; P9016; Q4081

== ENCOUNTER 2017-01-03 13:06 | Inpatient (IN) | payer MEDICARE, MEDICAID ==
[2017-01-03] VITALS (7 sets, daily range): BP systolic 126–194; BP diastolic 54–84; PULSE 69–113; RESP 18–22; TEMP 97.3–98.9; O2SAT 100
[~2017-01-03] VITALS: Ht 160 cm; Wt 121.9 kg
[~2017-01-03 13:06] MED LIST changes: -CLON0.1T PO; +DIFI200T PO; -EPIN1INJ21 IV PUSH; -EPIN1INJ21 SQ; -FLUO-1 PO; +FLUO20CA12 PO; -INSUINJ3; +IPRASOL INH; +LACTG PO; +MIDO5TAB PO; -SENN1TAB PO; -SEVEL800 PO; -VANC1000P IV; +VANC500I3 PO
[2017-01-03] MEDS ORDERED: COUM1TAB PO (13:30)
[2017-01-03 14:23] LABS: AUTOMATED NEUTROPHIL # 6.5 TH/MM3 (1.8-7.7); BASOPHIL # 0.1 TH/MM3 (0-0.2); BASOPHIL % 0.8 % (0.0-2.0); EOSINOPHIL # 0.3 TH/MM3 (0-0.4); EOSINOPHIL % 3.8 % (0.0-4.0); HEMATOCRIT 23.4 % (35.0-46.0); HEMOGLOBIN 7.6 GM/DL (11.6-15.3); LYMPH % 13.5 % (9.0-44.0); LYMPHOCYTE # 1.2 TH/MM3 (1.0-4.8); MEAN CELL VOLUME 82.8 FL (80.0-100.0); MEAN CORPUSCULAR HEMOGLOBIN 26.9 PG (27.0-34.0); MEAN CORPUSCULAR HGB CONC 32.5 % (32.0-36.0); MEAN PLATELET VOLUME 6.7 FL (7.0-11.0); MONO % 5.8 % (0.0-8.0); MONOCYTE # 0.5 TH/MM3 (0-0.9); NEUT % 76.1 % (16.0-70.0); PLATELET COUNT 330 TH/MM3 (150-450); RED BLOOD COUNT 2.83 MIL/MM3 (4.00-5.30); RED CELL DISTRIBUTION WIDTH 17.3 % (11.6-17.2); WHITE BLOOD COUNT 8.5 TH/MM3 (4.0-11.0)
[2017-01-03 14:30] LABS: PROTHROMBIN TIME - PATIENT 22.7 SEC (9.8-11.6)
[2017-01-03 14:36] LABS: BACTERIA, URINE FEW /hpf; BILIRUBIN, URINE NEG (NEG); BLOOD, URINE TRACE (NEG); GLUCOSE,URINE NEG (NEG); KETONE, URINE NEG (NEG); NITRITE,URINE NEG (NEG); SQUAMOUS EPITHELIAL CELL URINE 1 /hpf (0-5); TRANSITIONAL EPI CELLS, URINE <1 /hpf; URINE COLOR COLORLESS (YELLW/STRAW); URINE LEUKOCYTE ESTERASE LARGE (NEG)
[2017-01-03 14:40] LABS: CALCIUM 8.3 MG/DL (8.5-10.1); CREATININE 4.07 MG/DL (0.50-1.00)
--- NOTE | 2017-01-03 15:14 | PD ---
HPI Chief Complaint: Complaint Time Seen by Provider: 13:49 Travel History International Travel<30 days: No Contact w/Intl Traveler<30days: No Traveled to known affect area: No History of Present Illness HPI 56-year-old female with PMH of MRSA, C. difficile, ESRD, dialysis M/W/F, bedbound, colostomy, indwelling Ruiz catheter, multiple chronic wounds followed by Dr. Jimenez presents to the ED for evaluation of bleeding around her indwelling catheter. The patient states that she's been living in a SNF for the last few months and was discharged home this week. She noticed small amount of dark blood around the Ruiz catheter that was accompanied by a sharp episode of pain 2 nights ago. Pain is now resolved. She denies fevers, chills , nausea, vomiting, abdominal pain, dysuria, hematuria, changes in bowel habits. She has a home health nurse who comes in every other day to change her wound VAC and administer IV vancomycin and a second unknown antibiotic. She states that her last dialysis was Friday. She states that she missed dialysis Friday in order to see her primary care, Dr. Velarde. She states that she has an IUD placed "a few years ago" at her last [employer] visit and has not had any vaginal bleeding since 2014. PFSH Past Medical History Arthritis: Yes Asthma: No Autoimmune Disease: No Blood Disorders: No Anxiety: Yes Depression: No Heart Rhythm Problems: No Cancer: No Cardiac Catheterization: Yes High Cholesterol: Yes Chemotherapy: No Chest Pain: Yes Congestive Heart Failure: Yes COPD: Yes Diabetes: Yes (INSULIN) Patient Takes Glucophage: No Dialysis: Yes (,,) Diminished Hearing: No Endocrine: Yes Genitourinary: Yes Hepatitis: No Hiatal Hernia: No Heparin Induced Thrombocytopen: No Hypertension: Yes Immune Disorder: No Implanted Vascular Access Dvce: Yes Medical other: Yes (LEFT LOWER ARM FISTULA) Musculoskeletal: Yes Neurologic: No Psychiatric: No Reproductive: No Respiratory: No Immunizations Current: No Migraines: No Radiation Therapy: No Renal Failure: Yes Seizures: No Sickle Cell Disease: No Sleep Apnea: Yes Thyroid Disease: Yes Triglycerides - High: Yes Menopausal: Yes : 1 Para: 1 Past Surgical History Abdominal Surgery: Yes (ABD WOUND for friction) AICD: No Arteriovenous Shunt: Yes (AV FISTULA LEFT , VAS CATH RIGHT CHEST) Body Medical Devices: av fistula Cardiac Surgery: No Section: Yes (X 1) Cholecystectomy: Yes (1996) Coronary Artery Bypass Graft: Yes Coronary Stent: Yes (x1 June 2012) Ear Surgery: No Endocrine Surgery: No Eye Surgery: No Genitourinary Surgery: No Insulin Pump: No Joint Replacement: No Neurologic Surgery: No Oral Surgery: Yes (T&A) Pacemaker: No Thoracic Surgery: No Tonsillectomy: Yes Other Surgery: Yes (LAP BAND, VAS CATH) Social History Alcohol Use: No Tobacco Use: No Substance Use: No Allergies-Medications (Allergen,Severity, Reaction): Coded Allergies: clarithromycin (Verified Allergy, Severe, swelling of face, 01/03/17) ferrous fumarate (Verified Adverse Reaction, Severe, Constipation, ) ferrous sulfate (Verified Adverse Reaction, Severe, Constipation, 01/03/17 ) ferumoxytol (Verified Adverse Reaction, Severe, Constipation, 01/03/17) iron (Verified Adverse Reaction, Severe, Constipation, 01/03/17) morphine (Verified Adverse Reaction, Severe, 01/03/17) renal insufficiency. multivitamin infusion, adult no.4 with vitamin K (Verified Adverse Reaction, Severe, Constipation, 01/03/17) multivitamin with iron,other minerals (Verified Adverse Reaction, Severe, Constipation, 01/03/17) *MDRO Multi-Drug Resistant Organism (Verified Adverse Reaction, Unknown, VRE, MRSA, MDR-Pseudomonas, 09/02/16) VRE (abdominal wound) - 07/09/16 MDR-Pseudomonas (abdominal wound) - 07/09/16 MRSA (abdomen wound) - 08/28/16 Reported Meds & Prescriptions Reported Meds & Active Scripts Active Vancomycin Inj (Vancomycin HCl) 500 Mg Inj 500 Mg PO Q6HR Midodrine 5 Mg Tab 10 Mg PO TID@07,12,19 Floranex (Lactobacillus Acidophilus) 1 Gm Pkt 1 Gm PO TID Duoneb (Ipratropium-Albuterol Neb) 0.5-2.5 Mg/3 Ml Neb 1 Ampule INH Q4HR NEB PRN Dificid (Fidaxomicin) 200 Mg Tab 200 Mg PO BID Fluoxetine (Fluoxetine HCl) 20 Mg Capsule 20 Mg PO DAILY Solu-Cortef Inj (Hydrocortisone Sodium Succinate) 250 Mg Inj 250 Mg IV PUSH ONCE PRN Give over 30-60 seconds. Gelfoam Sponge (Gelatin) 12-7 Mm Pad 1 Foam TOP UNSCH PRN Dakins Solution Half Strength Topical (Sodium Hypochlorite) 0.2-0.25 % Soln 500 Ml TOPICAL DAILY [place] Thyroid (Thyroid) 60 Mg Tab 60 Mg PO DAILY Meclizine (Meclizine HCl) 25 Mg Tab 25 Mg PO TID PRN Megestrol Liq (Megestrol Acetate) 40 Mg/Ml Susp 400 Mg PO DAILY Sensipar (Cinacalcet) 30 Mg Tab 30 Mg PO DAILY Reported Coumadin (Warfarin) 1 Mg Tab Unknown Dose PO DAILY Zofran Odt (Ondansetron Odt) 4 Mg Tab 4 Mg SL Q6HR PRN Atorvastatin (Atorvastatin Calcium) 40 Mg Tab 40 Mg PO HS Diphenhydramine (Diphenhydramine HCl) 25 Mg Cap 25 Mg PO Q6H PRN Xanax (Alprazolam) 0.25 Mg Tab 0.25 Mg PO Q6H PRN Vitamin D3 (Cholecalciferol) 10,000 Unit Tab 10,000 Units PO BID Levemir Inj (Insulin Detemir) 1,000 unit/ 10 ML Vial 10 Units SQ DAILY Do not mix with any other Insulin. B-12 (Methylcobalamin) 1,000 Mcg Sub 1,000 Mcg PO DAILY Gabapentin 100 Mg Cap 100 Mg PO BID Aspirin 81 (Aspirin) 81 Mg Tabdr 81 Mg PO DAILY Calcitriol 0.5 Mcg Cap 0.5 Mcg PO DAILY Review of Systems Except as stated in HPI: all other systems reviewed are Neg Physical Exam Narrative GENERAL: Morbidly obese, chronically ill-appearing white female in no acute distress. SKIN: Focused skin assessment multiple large areas of ulceration with wound vacs. Intertriginous candidiasis noted in several skin folds. HEAD: Normocephalic. EYES: No scleral icterus. No injection or drainage. NECK: Supple, trachea midline. No JVD or lymphadenopathy. CARDIOVASCULAR: Regular rate and rhythm without murmurs, gallops, or rubs. RESPIRATORY: Breath sounds clear and equal bilaterally. No accessory muscle use. GASTROINTESTINAL: Abdomen protuberant, soft, non-tender, nondistended. Colostomy bag in place with a small amount of brown stool noted in the bag. GENITOURINARY: Normal external genitalia without lesions or erythema. Vaginal vault with scant blood . No drainage. Indwelling Ruiz catheter with no signs of urethral trauma. Limited by the patient's body habitus. MUSCULOSKELETAL: No cyanosis, or edema. Limited ROM secondary to body habitus. BACK: Nontender without obvious deformity. No CVA tenderness. Data Data Last Documented VS Vital Signs Date Time Temp Pulse Resp B/P (MAP) Pulse Ox O2 Delivery O2 Flow Rate FiO2 01/03/17 13:22 98.8 107 22 133/62 (85) 100 Room Air Orders Orders Complete Blood Count With Diff (01/03/17 13:32) Basic Metabolic Panel (Bmp) (01/03/17 13:32) Urinalysis - C+S If Indicated (01/03/17 13:32) Act Partial Throm Time (Ptt) (01/03/17 13:32) Prothrombin Time / Inr (Pt) (01/03/17 13:32) Iv Access Insert/Monitor (01/03/17 13:32) Urine Culture (01/03/17 14:20) Hydromorphone Pf Inj (Dilaudid Pf Inj) (01/03/17 15:15) Blood Product Administration (01/03/17 15:37) Sodium Chlor 0.9% 250 Ml Inj (Ns 250 Ml (01/03/17 15:45) Diphenhydramine (Benadryl) (01/03/17 15:45) Acetaminophen (Tylenol) (01/03/17 15:45) Consult Gynecology (01/03/17 ) Consult Wound / Ostomy Nurse (01/03/17 ) Type And Screen (01/03/17 15:57) Red Blood Cells (Rbc) (01/03/17 15:57) (Hub Use Only)Inp Phy Cons/Ref (01/03/17 ) Admit Order (Ed Use Only) (01/03/17 16:20) Labs Laboratory Tests Test 01/03/17 14:07 01/03/17 14:20 White Blood Count 8.5 TH/MM3 Red Blood Count 2.83 MIL/MM3 Hemoglobin 7.6 GM/DL Hematocrit 23.4 % Mean Corpuscular Volume 82.8 FL Mean Corpuscular Hemoglobin 26.9 PG Mean Corpuscular Hemoglobin Concent 32.5 % Red Cell Distribution Width 17.3 % Platelet Count 330 TH/MM3 Mean Platelet Volume 6.7 FL Neutrophils (%) (Auto) 76.1 % Lymphocytes (%) (Auto) 13.5 % Monocytes (%) (Auto) 5.8 % Eosinophils (%) (Auto) 3.8 % Basophils (%) (Auto) 0.8 % Neutrophils # (Auto) 6.5 TH/MM3 Lymphocytes # (Auto) 1.2 TH/MM3 Monocytes # (Auto) 0.5 TH/MM3 Eosinophils # (Auto) 0.3 TH/MM3 Basophils # (Auto) 0.1 TH/MM3 CBC Comment DIFF FINAL Differential Comment Prothrombin Time 22.7 SEC Prothromb Time International Ratio 2.0 RATIO Activated Partial Thromboplast Time 55.9 SEC Blood Urea Nitrogen 54 MG/DL Creatinine 4.07 MG/DL Random Glucose 116 MG/DL Calcium Level 8.3 MG/DL Sodium Level 137 MEQ/L Potassium Level 5.8 MEQ/L Chloride Level 107 MEQ/L Carbon Dioxide Level 21.0 MEQ/L Anion Gap 9 MEQ/L Estimat Glomerular Filtration Rate 11 ML/MIN Urine Color COLORLESS Urine Turbidity HAZY Urine pH 7.0 Urine Specific [place] 1.004 Urine Protein TRACE mg/dL Urine Glucose (UA) NEG mg/dL Urine Ketones NEG mg/dL Urine Occult Blood TRACE Urine Nitrite NEG Urine Bilirubin NEG Urine Urobilinogen LESS THAN 2.0 MG/DL Urine Leukocyte Esterase LARGE Urine RBC LESS THAN 1 /hpf Urine WBC 10 /hpf Urine Squamous Epithelial Cells 1 /hpf Urine Transitional Epithelial Cells <1 /hpf Urine Bacteria FEW /hpf Urine Yeast with Hyphae MANY Urine Yeast (Budding) OCC Microscopic Urinalysis Comment CATH-CULTURE IND MDM Medical Decision Making Medical Screen Exam Complete: Yes Emergency Medical Condition: Yes Differential Diagnosis Candidiasis versus vaginal trauma versus vaginal bleeding versus referral trauma versus UTI versus hemorrhagic cystitis versus candidiasis versus hyperkalemia versus metabolic derangement versus wound infection versus chronic wound versus other Narrative Course 56-year-old female with PMH of MRSA, C. difficile, ESRD, dialysis M/W/F, bedbound, colostomy, indwelling Ruiz catheter, multiple chronic wounds followed by Dr. Jimenez presents to the ED for evaluation of bleeding around her indwelling catheter. The patient states that she's been living in a SNF for the last few months and was discharged home this week. She noticed small amount of dark blood around the Ruiz catheter that was accompanied by a sharp episode of pain 2 nights ago. Pain is now resolved. She has infusions of vancomycin and a second unknown antibiotic accompanying her dialysis. She states that her last dialysis was Friday. She states that she missed dialysis Friday in order to see her primary care, Dr. Velarde. She states that she has an IUD placed "a few years ago" at her last [employer] visit and has not had any vaginal bleeding since 2014. Vitals reviewed. Physical exam reveals an anxious , obese white female in no acute distress. Chest is CTA B. Abdomen is protuberant, soft, nontender. There is a colostomy bag in place with a small amount of brown stool in the bag. No signs of infection. Pelvic exam was limited due to the patient's body habitus and pain threshold, however I did see a small amount of bleeding from the vaginal vault. Ruiz catheter in place with no signs of urethral trauma and no hematuria noted. Patient has several large ulcers with wound vacs in place. IV was established. Patient was administered 0.5 mg Dilaudid IV. CBC: Hemoglobin 9.2. Hematocrit 27.8, improved from last visit. INR 2.0. CMP: Creatinine 4.7, BUN 54. Potassium 5.8. Calcium 8.3. Glucose 116. UA hazy, large leukocyte esterase, few bacteria, many yeast, trace occult blood , culture pending. I spoke with Dr. Jimenez who recommended administering 1 unit PRBCs and admission to medicine. He will arrange dialysis. 1 unit PRBCs ordered, transfusion pending type and cross. Consult placed with gynecology. Consult placed with wound care. Plan to admit patient to medicine. Patient and family are agreeable to this. I spoke with Dr. Heredia who agrees to accept the patient to the medicine service. Please see nursing notes for disposition. Jeannette Malone Jan 03, 2017 15:14
[2017-01-03] MEDS ORDERED: HYDROmorphone HCL PF 0.5 MG/0.5 ML SYRINGE IV PUSH ONE (15:15)
[2017-01-03] MEDS ORDERED: diphenhydrAMINE HCL 25 MG CAP PO ONE (15:45)
[2017-01-03] MEDS ORDERED: SODIUM CHLOR 0.9% 250 ML INJ 250 ML IV ONE (15:45)
[2017-01-03] MEDS ORDERED: ACETAMINOPHEN 325 MG TAB PO ONE (15:45)
[2017-01-03] MEDS ORDERED: ACETAMINOPHEN 325 MG TAB PO PRN ×2 (17:15→17:30)
[2017-01-03] MEDS ORDERED: ONDANSETRON HCL 4 MG/2 ML VIAL IVP PRN (17:15)
[2017-01-03] MEDS ORDERED: GLUCAGON 1 MG/ML VIAL OTHER PRN (17:15)
[2017-01-03] MEDS ORDERED: RESP: ALBUTEROL 2.5 MG/IPRATROPIUM 0.5 MG NEB (PRN) INH (17:15)
[2017-01-03] MEDS ORDERED: SODIUM CHLORIDE 0.9% FLUSH 10 ML FLUSH IV FLUSH PRN ×2 (17:15→17:30)
[2017-01-03] MEDS ORDERED: SENNOSIDES 8.6 MG TAB PO PRN (17:15)
[2017-01-03] MEDS ORDERED: LACTULOSE SYRUP 20 GM/30 ML CUP PO PRN (17:15)
[2017-01-03] MEDS ORDERED: NALOXONE HCL 0.4 MG/ML AMP IV PUSH PRN (17:15)
[2017-01-03] MEDS ORDERED: MAGNESIUM HYDROXIDE SUSP 30 ML CUP PO PRN (17:15)
[2017-01-03] MEDS ORDERED: BISACODYL 10 MG SUPP RECTAL PRN (17:15)
[2017-01-03] MEDS ORDERED: DEXTROSE 50% IN WATER 50 ML VIAL(D50) IV PUSH PRN (17:15)
--- NOTE | 2017-01-03 17:22 | HHI.HP ---
[facility] Aline Velarde MD Admission Diagnosis Hyperkalemia, anemia, chronic wounds, vagina bleed Diagnoses: Chief Complaint: Pelvic bleeding Travel History International Travel<30 Days: No Contact w/Intl Traveler <30 Da: No Traveled to Known Affected Are: No History of Present Illness This is a chronically ill 56-year-old female with past medical history of ESRD on HD, HLD, CHF, anxiety, DM, hypothyroidism, kidney, chronic wounds, chronic indwelling Ruiz who presented with pelvic pain and bleeding today. The patient was recently discharged from [facility] 1 week ago. Has been getting home wound care and antibiotics with IV vancomycin and meropenem. She has a chronic indwelling Ruiz catheter that was replaced one week ago. Today she was having some suprapubic discomfort. She states her son/POA checked and there was a significant amount of bleeding. Pain was not relieved with IV Dilaudid 0.5 mg in the ED. A pelvic exam was attempted in the ED and unable to be performed and BIAS BINDING FOLDER has been consulted. She denies any chest pain, shortness breath, lightheadedness, dizziness, fever, chills. Review of Systems Except as stated in HPI: all other systems reviewed are Neg Past Family Social History Past Medical History ESRD on HD Congestive heart failure Hyperlipidemia Anxiety Diabetes mellitus with peripheral neuropathy Hypothyroidism Chronic wounds DVT on Coumadin History of C. difficile s/p treatment with Dificid Past Surgical History Left upper extremity AV fistula placement Dialysis catheter placement LAP-BAND surgery Cholecystectomy Tonsillectomy Cardiac stent placement EGD/colonoscopy Abdominal wall wound surgery Reported Medications Reported Meds & Active Scripts Active Vancomycin Inj (Vancomycin HCl) 500 Mg Inj 500 Mg PO Q6HR Midodrine 5 Mg Tab 10 Mg PO TID@07,12,19 Floranex (Lactobacillus Acidophilus) 1 Gm Pkt 1 Gm PO TID Duoneb (Ipratropium-Albuterol Neb) 0.5-2.5 Mg/3 Ml Neb 1 Ampule INH Q4HR NEB PRN Dificid (Fidaxomicin) 200 Mg Tab 200 Mg PO BID Fluoxetine (Fluoxetine HCl) 20 Mg Capsule 20 Mg PO DAILY Solu-Cortef Inj (Hydrocortisone Sodium Succinate) 250 Mg Inj 250 Mg IV PUSH ONCE PRN Give over 30-60 seconds. Gelfoam Sponge (Gelatin) 12-7 Mm Pad 1 Foam TOP UNSCH PRN Dakins Solution Half Strength Topical (Sodium Hypochlorite) 0.2-0.25 % Soln 500 Ml TOPICAL DAILY [place] Thyroid (Thyroid) 60 Mg Tab 60 Mg PO DAILY Meclizine (Meclizine HCl) 25 Mg Tab 25 Mg PO TID PRN Megestrol Liq (Megestrol Acetate) 40 Mg/Ml Susp 400 Mg PO DAILY Sensipar (Cinacalcet) 30 Mg Tab 30 Mg PO DAILY Reported Coumadin (Warfarin) 1 Mg Tab Unknown Dose PO DAILY Zofran Odt (Ondansetron Odt) 4 Mg Tab 4 Mg SL Q6HR PRN Atorvastatin (Atorvastatin Calcium) 40 Mg Tab 40 Mg PO HS Diphenhydramine (Diphenhydramine HCl) 25 Mg Cap 25 Mg PO Q6H PRN Xanax (Alprazolam) 0.25 Mg Tab 0.25 Mg PO Q6H PRN Vitamin D3 (Cholecalciferol) 10,000 Unit Tab 10,000 Units PO BID Levemir Inj (Insulin Detemir) 1,000 unit/ 10 ML Vial 10 Units SQ DAILY Do not mix with any other Insulin. B-12 (Methylcobalamin) 1,000 Mcg Sub 1,000 Mcg PO DAILY Gabapentin 100 Mg Cap 100 Mg PO BID Aspirin 81 (Aspirin) 81 Mg Tabdr 81 Mg PO DAILY Calcitriol 0.5 Mcg Cap 0.5 Mcg PO DAILY Allergies: Coded Allergies: clarithromycin (Verified Allergy, Severe, swelling of face, 01/03/17) ferrous fumarate (Verified Adverse Reaction, Severe, Constipation, ) ferrous sulfate (Verified Adverse Reaction, Severe, Constipation, 01/03/17 ) ferumoxytol (Verified Adverse Reaction, Severe, Constipation, 01/03/17) iron (Verified Adverse Reaction, Severe, Constipation, 01/03/17) morphine (Verified Adverse Reaction, Severe, 01/03/17) renal insufficiency. multivitamin infusion, adult no.4 with vitamin K (Verified Adverse Reaction, Severe, Constipation, 01/03/17) multivitamin with iron,other minerals (Verified Adverse Reaction, Severe, Constipation, 01/03/17) *MDRO Multi-Drug Resistant Organism (Verified Adverse Reaction, Unknown, VRE, MRSA, MDR-Pseudomonas, 09/02/16) VRE (abdominal wound) - 07/09/16 MDR-Pseudomonas (abdominal wound) - 07/09/16 MRSA (abdomen wound) - 08/28/16 Active Ordered Medications Current Medications Medications (Trade) Dose Ordered Sig/Soren Route Start Time Stop Time Status Last Admin Sodium Chloride 250 ml @ 15 mls/hr ONCE ONCE IV 01/03/17 15:45 01/04/17 08:24 (D50w (Vial) Inj) 50 ml UNSCH PRN IV PUSH 01/03/17 17:15 (Glucagon Inj) 1 mg UNSCH PRN OTHER 01/03/17 17:15 (NovoLOG SUPPLEMENTAL SCALE) 1 ACHS SLIDING SCALE SQ 01/03/17 21:00 UNV (Coumadin) 1 mg DAILY@16 PO 01/03/17 17:15 UNV (Neurontin) 100 mg BID PO 01/03/17 21:00 UNV (Levemir Inj) 10 units DAILY SQ 01/04/17 09:00 UNV (Duoneb Neb) 1 ampule Q4HR NEB PRN INH 01/03/17 17:15 UNV (Lactinex Pkt) 1 gm TID PO 01/03/17 18:00 UNV (Dakin'S 0.25% Soln) 500 ml DAILY TOPICAL 01/04/17 09:00 UNV ([place] Thyroid) 60 mg DAILY PO 01/04/17 09:00 UNV (NS Flush) 2 ml UNSCH PRN IV FLUSH 01/03/17 17:15 UNV (NS Flush) 2 ml BID IV FLUSH 01/03/17 21:00 UNV (Tylenol) 650 mg Q4H PRN PO 01/03/17 17:15 (Zofran Inj) 4 mg Q6H PRN IVP 01/03/17 17:15 UNV (Narcan Inj) 0.4 mg UNSCH PRN IV PUSH 01/03/17 17:15 UNV (Milk Of Magnesia Liq) 30 ml Q12H PRN PO 01/03/17 17:15 UNV (Senokot) 17.2 mg Q12H PRN PO 01/03/17 17:15 UNV (Dulcolax Supp) 10 mg DAILY PRN RECTAL 01/03/17 17:15 (Lactulose Liq) 30 ml DAILY PRN PO 01/03/17 17:15 UNV Family History Father has diabetes and heart disease Social History Denies any alcohol, tobacco, or illegal drug use Was at home with her son Physical Exam Vital Signs Vital Signs Date Time Temp Pulse Resp B/P (MAP) Pulse Ox O2 Delivery O2 Flow Rate FiO2 01/03/17 17:16 100 21 01/03/17 13:22 98.8 107 22 133/62 (85) 100 Room Air Physical Exam GENERAL: Well-developed well-nourished. Chronically ill-appearing. Morbidly obese. In no acute distress. SKIN: Warm and dry. Chronic wounds present on the left flank, sacrum, right lower extremity. Dialysis catheter in place on right chest wall. HEENT: Normocephalic. Pupils equal and round. Mucous membranes pink and moist. CARDIOVASCULAR: Regular rate and rhythm. No murmur appreciated. RESPIRATORY: No accessory muscle use. Clear to auscultation. Breath sounds equal bilaterally. GASTROINTESTINAL: Abdomen soft, non-tender, nondistended. Bowel sounds x4. : Indwelling Ruiz catheter in place. No obvious bleeding at this time. MUSCULOSKELETAL: No obvious deformities. No clubbing or cyanosis. No edema. NEUROLOGICAL: Awake and alert. Moves upper and lower extremities spontaneously. Normal speech. PSYCHIATRIC: Anxious and slightly depressed mood and affect; insight and judgment normal. Laboratory Laboratory Tests Test 01/03/17 14:07 01/03/17 14:20 White Blood Count 8.5 Red Blood Count 2.83 Hemoglobin 7.6 Hematocrit 23.4 Mean Corpuscular Volume 82.8 Mean Corpuscular Hemoglobin 26.9 Mean Corpuscular Hemoglobin Concent 32.5 Red Cell Distribution Width 17.3 Platelet Count 330 Mean Platelet Volume 6.7 Neutrophils (%) (Auto) 76.1 Lymphocytes (%) (Auto) 13.5 Monocytes (%) (Auto) 5.8 Eosinophils (%) (Auto) 3.8 Basophils (%) (Auto) 0.8 Neutrophils # (Auto) 6.5 Lymphocytes # (Auto) 1.2 Monocytes # (Auto) 0.5 Eosinophils # (Auto) 0.3 Basophils # (Auto) 0.1 CBC Comment DIFF FINAL Differential Comment Prothrombin Time 22.7 Prothromb Time International Ratio 2.0 Activated Partial Thromboplast Time 55.9 Blood Urea Nitrogen 54 Creatinine 4.07 Random Glucose 116 Calcium Level 8.3 Sodium Level 137 Potassium Level 5.8 Chloride Level 107 Carbon Dioxide Level 21.0 Anion Gap 9 Estimat Glomerular Filtration Rate 11 Urine Color COLORLESS Urine Turbidity HAZY Urine pH 7.0 Urine Specific [place] 1.004 Urine Protein TRACE Urine Glucose (UA) NEG Urine Ketones NEG Urine Occult Blood TRACE Urine Nitrite NEG Urine Bilirubin NEG Urine Urobilinogen LESS THAN 2.0 Urine Leukocyte Esterase LARGE Urine RBC LESS THAN 1 Urine WBC 10 Urine Squamous Epithelial Cells 1 Urine Transitional Epithelial Cells <1 Urine Bacteria FEW Urine Yeast with Hyphae MANY Urine Yeast (Budding) OCC Microscopic Urinalysis Comment CATH-CULTURE IND Date/Time Source Procedure Growth Status 01/03/17 14:20 Urine Catheterized Urine Urine Culture Pending Received Result Diagram: 01/03/17 1407 01/03/17 1407 Caprini VTE Risk Assessment Caprini VTE Risk Assessment: Mod/High Risk (score >= 2) Caprini Risk Assessment Model Point Value = 1 Point Value = 2 Point Value = 3 Point Value = 5 Age 41-60 Minor surgery BMI > 25 kg/m2 Swollen legs Varicose veins or History of unexplained or recurrent spontaneous Oral contraceptives or hormone replacement Sepsis (< 1 month) Serious lung disease, including pneumonia (< 1 month) Abnormal pulmonary function Acute myocardial infarction Congestive heart failure (< 1 month) History of inflammatory bowel disease Medical patient at bed rest Age 61-74 Arthroscopic surgery Major open surgery (> 45 min) Laparoscopic surgery (> 45 min) Malignancy Confined to bed (> 72 hours) Immobilizing plaster cast Central venous access Age >= 75 History of VTE Family history of VTE Factor V Leiden Prothrombin [id number] Lupus anticoagulant Anticardiolipin antibodies Elevated serum homocysteine Heparin-induced thrombocytopenia Other congenital or acquired thrombophilia Stroke (< 1 month) Elective arthroplasty Hip, pelvis, or leg fracture Acute spinal cord injury (< 1 month) Prophylaxis Regimen Total Risk Factor Score Risk Level Prophylaxis Regimen 0-1 Low Early ambulation 2 Moderate Order ONE of the following: *Sequential Compression Device (SCD) *Heparin 5000 units SQ BID 3-4 Higher Order ONE of the following medications: *Heparin 5000 units SQ TID *Enoxaparin/Lovenox 40 mg SQ daily (WT < 150 kg, CrCl > 30 mL/min) *Enoxaparin/Lovenox 30 mg SQ daily (WT < 150 kg, CrCl > 10-29 mL/min) *Enoxaparin/Lovenox 30 mg SQ BID (WT < 150 kg, CrCl > 30 mL/min) AND/OR *Sequential Compression Device (SCD) 5 or more Highest Order ONE of the following medications: *Heparin 5000 units SQ TID (Preferred with Epidurals) *Enoxaparin/Lovenox 40 mg SQ daily (WT < 150 kg, CrCl > 30 mL/min) *Enoxaparin/Lovenox 30 mg SQ daily (WT < 150 kg, CrCl > 10-29 mL/min) *Enoxaparin/Lovenox 30 mg SQ BID (WT < 150 kg, CrCl > 30 mL/min) AND *Sequential Compression Device (SCD) Assessment and Plan Assessment and Plan This is a chronically ill 56-year-old female with past medical history of ESRD on HD, HLD, CHF, anxiety, DM, hypothyroidism, kidney, chronic wounds, chronic indwelling Ruiz who presented with pelvic pain and bleeding Pelvic pain/bleeding: Unclear if gynecological and urological. -BIAS BINDING FOLDER has been consulted from the ED, appreciate input -Hemoglobin 7.6, previously 8.6 on 10/08/16. 2 units PRBCs ordered for transfusion. Follow H&H. -UA with evidence of fungal UTI, start renally adjusted fluconazole -Continue home Roberts and add IV Dilaudid as needed for pain -May need urology input depending on BIAS BINDING FOLDER evaluation Chronic anticoagulation with recent lower extremity DVT due to immobility -INR therapeutic at 2.0, no active bleeding currently, continue Coumadin and monitor INR Chronic wounds with infection: Afebrile with no leukocytosis. -Resume home IV meropenem -Nephrology to resume IV vancomycin with dialysis -Continue Lactinex on antibiotics -Continue wound care with Dakin solution -Consult account management assistant ESRD on HD: Patient due for dialysis today and has mild hyperkalemia 5.8. -Patient seen in the dialysis unit. -Patient's automotive dismantler consulted Diabetes mellitus: -Continue home basal insulin -Monitor Accu-Cheks and cover with SSI as needed -Continue gabapentin for neuropathy COPD: Not currently in exacerbation -Continue nebs as needed Hypothyroidism: Chronic. -Continue Emily Thyroid RN to reconcile home medications DVT prophylaxis: On Coumadin Code Status full code Discussed Condition With Patient seen with Dr. Heredia Discussed with patient, acute dialysis nurse, Dr. Ramos, ED staff Attending Statement The exam, history, and the medical decision-making described in the above note were completed with the assistance of the mid-level provider. I reviewed and agree with the findings presented. I attest that I had a [id number] encounter with the patient on the same day, and personally performed and documented my assessment and findings in the medical record. seen with [facility] AND PATIENT SEEN AND I PERSONALLY EXAMINED THE PATIENT Joel Zhou Jan 03, 2017 17:22 Kerwin Heredia DO Jan 03, 2017 17:51
--- NOTE | 2017-01-03 17:22 | HHI.HP ---
HPI Service [facility] Primary Care Physician Aline Velarde MD Admission Diagnosis Hyperkalemia, anemia, chronic wounds, vagina bleed Diagnoses: Chief Complaint: Pelvic bleeding Travel History International Travel<30 Days: No Contact w/Intl Traveler <30 Da: No Traveled to Known Affected Are: No History of Present Illness This is a chronically ill 56-year-old female with past medical history of ESRD on HD, HLD, CHF, anxiety, DM, hypothyroidism, kidney, chronic wounds, chronic indwelling Ruiz who presented with pelvic pain and bleeding today. The patient was recently discharged from [facility] 1 week ago. Has been getting home wound care and antibiotics with IV vancomycin and meropenem. She has a chronic indwelling Ruiz catheter that was replaced one week ago. Today she was having some suprapubic discomfort. She states her son/POA checked and there was a significant amount of bleeding. Pain was not relieved with IV Dilaudid 0.5 mg in the ED. A pelvic exam was attempted in the ED and unable to be performed and CAMPAIGN FUNDRAISER has been consulted. She denies any chest pain, shortness breath, lightheadedness, dizziness, fever, chills. Review of Systems Except as stated in HPI: all other systems reviewed are Neg Past Family Social History Past Medical History ESRD on HD Congestive heart failure Hyperlipidemia Anxiety Diabetes mellitus with peripheral neuropathy Hypothyroidism Chronic wounds DVT on Coumadin History of C. difficile s/p treatment with Dificid Past Surgical History Left upper extremity AV fistula placement Dialysis catheter placement LAP-BAND surgery Cholecystectomy Tonsillectomy Cardiac stent placement EGD/colonoscopy Abdominal wall wound surgery Reported Medications Reported Meds & Active Scripts Active Vancomycin Inj (Vancomycin HCl) 500 Mg Inj 500 Mg PO Q6HR Midodrine 5 Mg Tab 10 Mg PO TID@07,12,19 Floranex (Lactobacillus Acidophilus) 1 Gm Pkt 1 Gm PO TID Duoneb (Ipratropium-Albuterol Neb) 0.5-2.5 Mg/3 Ml Neb 1 Ampule INH Q4HR NEB PRN Dificid (Fidaxomicin) 200 Mg Tab 200 Mg PO BID Fluoxetine (Fluoxetine HCl) 20 Mg Capsule 20 Mg PO DAILY Solu-Cortef Inj (Hydrocortisone Sodium Succinate) 250 Mg Inj 250 Mg IV PUSH ONCE PRN Give over 30-60 seconds. [place] Sponge (Gelatin) 12-7 Mm Pad 1 Foam TOP UNSCH PRN Dakins Solution Half Strength Topical (Sodium Hypochlorite) 0.2-0.25 % Soln 500 Ml TOPICAL DAILY [place] Thyroid (Thyroid) 60 Mg Tab 60 Mg PO DAILY Meclizine (Meclizine HCl) 25 Mg Tab 25 Mg PO TID PRN Megestrol Liq (Megestrol Acetate) 40 Mg/Ml Susp 400 Mg PO DAILY Sensipar (Cinacalcet) 30 Mg Tab 30 Mg PO DAILY Reported Coumadin (Warfarin) 1 Mg Tab Unknown Dose PO DAILY Zofran Odt (Ondansetron Odt) 4 Mg Tab 4 Mg SL Q6HR PRN Atorvastatin (Atorvastatin Calcium) 40 Mg Tab 40 Mg PO HS Diphenhydramine (Diphenhydramine HCl) 25 Mg Cap 25 Mg PO Q6H PRN Xanax (Alprazolam) 0.25 Mg Tab 0.25 Mg PO Q6H PRN Vitamin D3 (Cholecalciferol) 10,000 Unit Tab 10,000 Units PO BID Levemir Inj (Insulin Detemir) 1,000 unit/ 10 ML Vial 10 Units SQ DAILY Do not mix with any other Insulin. B-12 (Methylcobalamin) 1,000 Mcg Sub 1,000 Mcg PO DAILY Gabapentin 100 Mg Cap 100 Mg PO BID Aspirin 81 (Aspirin) 81 Mg Tabdr 81 Mg PO DAILY Calcitriol 0.5 Mcg Cap 0.5 Mcg PO DAILY Allergies: Coded Allergies: clarithromycin (Verified Allergy, Severe, swelling of face, 01/03/17) ferrous fumarate (Verified Adverse Reaction, Severe, Constipation, ) ferrous sulfate (Verified Adverse Reaction, Severe, Constipation, 01/03/17 ) ferumoxytol (Verified Adverse Reaction, Severe, Constipation, 01/03/17) iron (Verified Adverse Reaction, Severe, Constipation, 01/03/17) morphine (Verified Adverse Reaction, Severe, 01/03/17) renal insufficiency. multivitamin infusion, adult no.4 with vitamin K (Verified Adverse Reaction, Severe, Constipation, 01/03/17) multivitamin with iron,other minerals (Verified Adverse Reaction, Severe, Constipation, 01/03/17) *MDRO Multi-Drug Resistant Organism (Verified Adverse Reaction, Unknown, VRE, MRSA, MDR-Pseudomonas, 09/02/16) VRE (abdominal wound) - 07/09/16 MDR-Pseudomonas (abdominal wound) - 07/09/16 MRSA (abdomen wound) - 08/28/16 Active Ordered Medications Current Medications Medications (Trade) Dose Ordered Sig/Soren Route Start Time Stop Time Status Last Admin Sodium Chloride 250 ml @ 15 mls/hr ONCE ONCE IV 01/03/17 15:45 01/04/17 08:24 (D50w (Vial) Inj) 50 ml UNSCH PRN IV PUSH 01/03/17 17:15 (Glucagon Inj) 1 mg UNSCH PRN OTHER 01/03/17 17:15 (NovoLOG SUPPLEMENTAL SCALE) 1 ACHS SLIDING SCALE SQ 01/03/17 21:00 UNV (Coumadin) 1 mg DAILY@16 PO 01/03/17 17:15 UNV (Neurontin) 100 mg BID PO 01/03/17 21:00 UNV (Levemir Inj) 10 units DAILY SQ 01/04/17 09:00 UNV (Duoneb Neb) 1 ampule Q4HR NEB PRN INH 01/03/17 17:15 UNV (Lactinex Pkt) 1 gm TID PO 01/03/17 18:00 UNV ([place]akin'S 0.25% Soln) 500 ml DAILY TOPICAL 01/04/17 09:00 UNV ([place] Thyroid) 60 mg DAILY PO 01/04/17 09:00 UNV (NS Flush) 2 ml UNSCH PRN IV FLUSH 01/03/17 17:15 UNV (NS Flush) 2 ml BID IV FLUSH 01/03/17 21:00 UNV (Tylenol) 650 mg Q4H PRN PO 01/03/17 17:15 (Zofran Inj) 4 mg Q6H PRN IVP 01/03/17 17:15 UNV (Narcan Inj) 0.4 mg UNSCH PRN IV PUSH 01/03/17 17:15 UNV (Milk Of Magnesia Liq) 30 ml Q12H PRN PO 01/03/17 17:15 UNV (Senokot) 17.2 mg Q12H PRN PO 01/03/17 17:15 UNV (Dulcolax Supp) 10 mg DAILY PRN RECTAL 01/03/17 17:15 (Lactulose Liq) 30 ml DAILY PRN PO 01/03/17 17:15 UNV Family History Father has diabetes and heart disease Social History Denies any alcohol, tobacco, or illegal drug use Was at home with her son Physical Exam Vital Signs Vital Signs Date Time Temp Pulse Resp B/P (MAP) Pulse Ox O2 Delivery O2 Flow Rate FiO2 01/03/17 17:16 100 21 01/03/17 13:22 98.8 107 22 133/62 (85) 100 Room Air Physical Exam GENERAL: Well-developed well-nourished. Chronically ill-appearing. Morbidly obese. In no acute distress. SKIN: Warm and dry. Chronic wounds present on the left flank, sacrum, right lower extremity. Dialysis catheter in place on right chest wall. HEENT: Normocephalic. Pupils equal and round. Mucous membranes pink and moist. CARDIOVASCULAR: Regular rate and rhythm. No murmur appreciated. RESPIRATORY: No accessory muscle use. Clear to auscultation. Breath sounds equal bilaterally. GASTROINTESTINAL: Abdomen soft, non-tender, nondistended. Bowel sounds x4. : Indwelling Ruiz catheter in place. No obvious bleeding at this time. MUSCULOSKELETAL: No obvious deformities. No clubbing or cyanosis. No edema. NEUROLOGICAL: Awake and alert. Moves upper and lower extremities spontaneously. Normal speech. PSYCHIATRIC: Anxious and slightly depressed mood and affect; insight and judgment normal. Laboratory Laboratory Tests Test 01/03/17 14:07 01/03/17 14:20 White Blood Count 8.5 Red Blood Count 2.83 Hemoglobin 7.6 Hematocrit 23.4 Mean Corpuscular Volume 82.8 Mean Corpuscular Hemoglobin 26.9 Mean Corpuscular Hemoglobin Concent 32.5 Red Cell Distribution Width 17.3 Platelet Count 330 Mean Platelet Volume 6.7 Neutrophils (%) (Auto) 76.1 Lymphocytes (%) (Auto) 13.5 Monocytes (%) (Auto) 5.8 Eosinophils (%) (Auto) 3.8 Basophils (%) (Auto) 0.8 Neutrophils # (Auto) 6.5 Lymphocytes # (Auto) 1.2 Monocytes # (Auto) 0.5 Eosinophils # (Auto) 0.3 Basophils # (Auto) 0.1 CBC Comment DIFF FINAL Differential Comment Prothrombin Time 22.7 Prothromb Time International Ratio 2.0 Activated Partial Thromboplast Time 55.9 Blood Urea Nitrogen 54 Creatinine 4.07 Random Glucose 116 Calcium Level 8.3 Sodium Level 137 Potassium Level 5.8 Chloride Level 107 Carbon Dioxide Level 21.0 Anion Gap 9 Estimat Glomerular Filtration Rate 11 Urine Color COLORLESS Urine Turbidity HAZY Urine pH 7.0 Urine Specific [place] 1.004 Urine Protein TRACE Urine Glucose (UA) NEG Urine Ketones NEG Urine Occult Blood TRACE Urine Nitrite NEG Urine Bilirubin NEG Urine Urobilinogen LESS THAN 2.0 Urine Leukocyte Esterase LARGE Urine RBC LESS THAN 1 Urine WBC 10 Urine Squamous Epithelial Cells 1 Urine Transitional Epithelial Cells <1 Urine Bacteria FEW Urine Yeast with Hyphae MANY Urine Yeast (Budding) OCC Microscopic Urinalysis Comment CATH-CULTURE IND Date/Time Source Procedure Growth Status 01/03/17 14:20 Urine Catheterized Urine Urine Culture Pending Received Result Diagram: 01/03/17 1407 01/03/17 1407 Caprini VTE Risk Assessment Caprini VTE Risk Assessment: Mod/High Risk (score >= 2) Caprini Risk Assessment Model Point Value = 1 Point Value = 2 Point Value = 3 Point Value = 5 Age 41-60 Minor surgery BMI > 25 kg/m2 Swollen legs Varicose veins or History of unexplained or recurrent spontaneous Oral contraceptives or hormone replacement Sepsis (< 1 month) Serious lung disease, including pneumonia (< 1 month) Abnormal pulmonary function Acute myocardial infarction Congestive heart failure (< 1 month) History of inflammatory bowel disease Medical patient at bed rest Age 61-74 Arthroscopic surgery Major open surgery (> 45 min) Laparoscopic surgery (> 45 min) Malignancy Confined to bed (> 72 hours) Immobilizing plaster cast Central venous access Age >= 75 History of VTE Family history of VTE Factor V Leiden Prothrombin [id number] Lupus anticoagulant Anticardiolipin antibodies Elevated serum homocysteine Heparin-induced thrombocytopenia Other congenital or acquired thrombophilia Stroke (< 1 month) Elective arthroplasty Hip, pelvis, or leg fracture Acute spinal cord injury (< 1 month) Prophylaxis Regimen Total Risk Factor Score Risk Level Prophylaxis Regimen 0-1 Low Early ambulation 2 Moderate Order ONE of the following: *Sequential Compression Device (SCD) *Heparin 5000 units SQ BID 3-4 Higher Order ONE of the following medications: *Heparin 5000 units SQ TID *Enoxaparin/Lovenox 40 mg SQ daily (WT < 150 kg, CrCl > 30 mL/min) *Enoxaparin/Lovenox 30 mg SQ daily (WT < 150 kg, CrCl > 10-29 mL/min) *Enoxaparin/Lovenox 30 mg SQ BID (WT < 150 kg, CrCl > 30 mL/min) AND/OR *Sequential Compression Device (SCD) 5 or more Highest Order ONE of the following medications: *Heparin 5000 units SQ TID (Preferred with Epidurals) *Enoxaparin/Lovenox 40 mg SQ daily (WT < 150 kg, CrCl > 30 mL/min) *Enoxaparin/Lovenox 30 mg SQ daily (WT < 150 kg, CrCl > 10-29 mL/min) *Enoxaparin/Lovenox 30 mg SQ BID (WT < 150 kg, CrCl > 30 mL/min) AND *Sequential Compression Device (SCD) Assessment and Plan Assessment and Plan This is a chronically ill 56-year-old female with past medical history of ESRD on HD, HLD, CHF, anxiety, DM, hypothyroidism, kidney, chronic wounds, chronic indwelling Ruiz who presented with pelvic pain and bleeding Pelvic pain/bleeding: Unclear if gynecological and urological. -CAMPAIGN FUNDRAISER has been consulted from the ED, appreciate input -Hemoglobin 7.6, previously 8.6 on 10/08/16. 2 units PRBCs ordered for transfusion. Follow H&H. -UA with evidence of fungal UTI, start renally adjusted fluconazole -Continue home [place] and add IV Dilaudid as needed for pain -May need urology input depending on CAMPAIGN FUNDRAISER evaluation Chronic anticoagulation with recent lower extremity DVT due to immobility -INR therapeutic at 2.0, no active bleeding currently, continue Coumadin and monitor INR Chronic wounds with infection: Afebrile with no leukocytosis. -Resume home IV meropenem -Nephrology to resume IV vancomycin with dialysis -Continue Lactinex on antibiotics -Continue wound care with Dakin solution -Consult home based assistant ESRD on HD: Patient due for dialysis today and has mild hyperkalemia 5.8. -Patient seen in the dialysis unit. -Patient's marketing financial analyst consulted Diabetes mellitus: -Continue home basal insulin -Monitor Accu-Cheks and cover with SSI as needed -Continue gabapentin for neuropathy COPD: Not currently in exacerbation -Continue nebs as needed Hypothyroidism: Chronic. -Continue Emily Thyroid RN to reconcile home medications DVT prophylaxis: On Coumadin Code Status full code Discussed Condition With Patient seen with Dr. Heredia Discussed with patient, book author, Dr. Ramos, ED staff Attending Statement The exam, history, and the medical decision-making described in the above note were completed with the assistance of the mid-level provider. I reviewed and agree with the findings presented. I attest that I had a [id number] encounter with the patient on the same day, and personally performed and documented my assessment and findings in the medical record. seen with [facility] AND PATIENT SEEN AND I PERSONALLY EXAMINED THE PATIENT Joel Zhou Jan 03, 2017 17:22 Kerwin Heredia DO Jan 03, 2017 17:51
--- NOTE | 2017-01-03 17:22 | HHI.HP ---
HPI Service [facility] Primary Care Physician Aline Velarde MD Admission Diagnosis Hyperkalemia, anemia, chronic wounds, vagina bleed Diagnoses: Chief Complaint: Pelvic bleeding Travel History International Travel<30 Days: No Contact w/Intl Traveler <30 Da: No Traveled to Known Affected Are: No History of Present Illness This is a chronically ill 56-year-old female with past medical history of ESRD on HD, HLD, CHF, anxiety, DM, hypothyroidism, kidney, chronic wounds, chronic indwelling Ruiz who presented with pelvic pain and bleeding today. [facility] Has been getting home wound care and antibiotics with IV vancomycin and meropenem. She has a chronic indwelling Ruiz catheter that was replaced one week ago. Today she was having some suprapubic discomfort. She states her son/POA checked and there was a significant amount of bleeding. Pain was not relieved with IV Dilaudid 0.5 mg in the ED. A pelvic exam was attempted in the ED and unable to be performed and DIAL SCREW ASSEMBLER has been consulted. She denies any chest pain, shortness breath, lightheadedness, dizziness, fever, chills. Review of Systems Except as stated in HPI: all other systems reviewed are Neg Past Family Social History Past Medical History ESRD on HD Congestive heart failure Hyperlipidemia Anxiety Diabetes mellitus with peripheral neuropathy Hypothyroidism Chronic wounds DVT on Coumadin History of C. difficile s/p treatment with Dificid Past Surgical History Left upper extremity AV fistula placement Dialysis catheter placement LAP-BAND surgery Cholecystectomy Tonsillectomy Cardiac stent placement EGD/colonoscopy Abdominal wall wound surgery Reported Medications Reported Meds & Active Scripts Active Vancomycin Inj (Vancomycin HCl) 500 Mg Inj 500 Mg PO Q6HR Midodrine 5 Mg Tab 10 Mg PO TID@07,12,19 Floranex (Lactobacillus Acidophilus) 1 Gm Pkt 1 Gm PO TID Duoneb (Ipratropium-Albuterol Neb) 0.5-2.5 Mg/3 Ml Neb 1 Ampule INH Q4HR NEB PRN Dificid (Fidaxomicin) 200 Mg Tab 200 Mg PO BID Fluoxetine (Fluoxetine HCl) 20 Mg Capsule 20 Mg PO DAILY Solu-Cortef Inj (Hydrocortisone Sodium Succinate) 250 Mg Inj 250 Mg IV PUSH ONCE PRN Give over 30-60 seconds. Gelfoam Sponge (Gelatin) 12-7 Mm Pad 1 Foam TOP UNSCH PRN Dakins Solution Half Strength Topical (Sodium Hypochlorite) 0.2-0.25 % Soln 500 Ml TOPICAL DAILY [place] Thyroid (Thyroid) 60 Mg Tab 60 Mg PO DAILY Meclizine (Meclizine HCl) 25 Mg Tab 25 Mg PO TID PRN Megestrol Liq (Megestrol Acetate) 40 Mg/Ml Susp 400 Mg PO DAILY Sensipar (Cinacalcet) 30 Mg Tab 30 Mg PO DAILY Reported Coumadin (Warfarin) 1 Mg Tab Unknown Dose PO DAILY Zofran Odt (Ondansetron Odt) 4 Mg Tab 4 Mg SL Q6HR PRN Atorvastatin (Atorvastatin Calcium) 40 Mg Tab 40 Mg PO HS Diphenhydramine (Diphenhydramine HCl) 25 Mg Cap 25 Mg PO Q6H PRN Xanax (Alprazolam) 0.25 Mg Tab 0.25 Mg PO Q6H PRN Vitamin D3 (Cholecalciferol) 10,000 Unit Tab 10,000 Units PO BID Levemir Inj (Insulin Detemir) 1,000 unit/ 10 ML Vial 10 Units SQ DAILY Do not mix with any other Insulin. B-12 (Methylcobalamin) 1,000 Mcg Sub 1,000 Mcg PO DAILY Gabapentin 100 Mg Cap 100 Mg PO BID Aspirin 81 (Aspirin) 81 Mg Tabdr 81 Mg PO DAILY Calcitriol 0.5 Mcg Cap 0.5 Mcg PO DAILY Allergies: Coded Allergies: clarithromycin (Verified Allergy, Severe, swelling of face, 01/03/17) ferrous fumarate (Verified Adverse Reaction, Severe, Constipation, ) ferrous sulfate (Verified Adverse Reaction, Severe, Constipation, 01/03/17 ) ferumoxytol (Verified Adverse Reaction, Severe, Constipation, 01/03/17) iron (Verified Adverse Reaction, Severe, Constipation, 01/03/17) morphine (Verified Adverse Reaction, Severe, 01/03/17) renal insufficiency. multivitamin infusion, adult no.4 with vitamin K (Verified Adverse Reaction, Severe, Constipation, 01/03/17) multivitamin with iron,other minerals (Verified Adverse Reaction, Severe, Constipation, 01/03/17) *MDRO Multi-Drug Resistant Organism (Verified Adverse Reaction, Unknown, VRE, MRSA, MDR-Pseudomonas, 09/02/16) VRE (abdominal wound) - 07/09/16 MDR-Pseudomonas (abdominal wound) - 07/09/16 MRSA (abdomen wound) - 08/28/16 Active Ordered Medications Current Medications Medications (Trade) Dose Ordered Sig/Soren Route Start Time Stop Time Status Last Admin Sodium Chloride 250 ml @ 15 mls/hr ONCE ONCE IV 01/03/17 15:45 01/04/17 08:24 (D50w (Vial) Inj) 50 ml UNSCH PRN IV PUSH 01/03/17 17:15 (Glucagon Inj) 1 mg UNSCH PRN OTHER 01/03/17 17:15 (NovoLOG SUPPLEMENTAL SCALE) 1 ACHS SLIDING SCALE SQ 01/03/17 21:00 UNV (Coumadin) 1 mg DAILY@16 PO 01/03/17 17:15 UNV (Neurontin) 100 mg BID PO 01/03/17 21:00 UNV (Levemir Inj) 10 units DAILY SQ 01/04/17 09:00 UNV (Duoneb Neb) 1 ampule Q4HR NEB PRN INH 01/03/17 17:15 UNV (Lactinex Pkt) 1 gm TID PO 01/03/17 18:00 UNV (Dakin'S 0.25% Soln) 500 ml DAILY TOPICAL 01/04/17 09:00 UNV ([place] Thyroid) 60 mg DAILY PO 01/04/17 09:00 UNV (NS Flush) 2 ml UNSCH PRN IV FLUSH 01/03/17 17:15 UNV (NS Flush) 2 ml BID IV FLUSH 01/03/17 21:00 UNV (Tylenol) 650 mg Q4H PRN PO 01/03/17 17:15 (Zofran Inj) 4 mg Q6H PRN IVP 01/03/17 17:15 UNV (Narcan Inj) 0.4 mg UNSCH PRN IV PUSH 01/03/17 17:15 UNV (Milk Of Magnesia Liq) 30 ml Q12H PRN PO 01/03/17 17:15 UNV (Senokot) 17.2 mg Q12H PRN PO 01/03/17 17:15 UNV (Dulcolax Supp) 10 mg DAILY PRN RECTAL 01/03/17 17:15 (Lactulose Liq) 30 ml DAILY PRN PO 01/03/17 17:15 UNV Family History Father has diabetes and heart disease Social History Denies any alcohol, tobacco, or illegal drug use Was at home with her son Physical Exam Vital Signs Vital Signs Date Time Temp Pulse Resp B/P (MAP) Pulse Ox O2 Delivery O2 Flow Rate FiO2 01/03/17 17:16 100 21 01/03/17 13:22 98.8 107 22 133/62 (85) 100 Room Air Physical Exam GENERAL: Well-developed well-nourished. Chronically ill-appearing. Morbidly obese. In no acute distress. SKIN: Warm and dry. Chronic wounds present on the left flank, sacrum, right lower extremity. Dialysis catheter in place on right chest wall. HEENT: Normocephalic. Pupils equal and round. Mucous membranes pink and moist. CARDIOVASCULAR: Regular rate and rhythm. No murmur appreciated. RESPIRATORY: No accessory muscle use. Clear to auscultation. Breath sounds equal bilaterally. GASTROINTESTINAL: Abdomen soft, non-tender, nondistended. Bowel sounds x4. : Indwelling Ruiz catheter in place. No obvious bleeding at this time. MUSCULOSKELETAL: No obvious deformities. No clubbing or cyanosis. No edema. NEUROLOGICAL: Awake and alert. Moves upper and lower extremities spontaneously. Normal speech. PSYCHIATRIC: Anxious and slightly depressed mood and affect; insight and judgment normal. Laboratory Laboratory Tests Test 01/03/17 14:07 01/03/17 14:20 White Blood Count 8.5 Red Blood Count 2.83 Hemoglobin 7.6 Hematocrit 23.4 Mean Corpuscular Volume 82.8 Mean Corpuscular Hemoglobin 26.9 Mean Corpuscular Hemoglobin Concent 32.5 Red Cell Distribution Width 17.3 Platelet Count 330 Mean Platelet Volume 6.7 Neutrophils (%) (Auto) 76.1 Lymphocytes (%) (Auto) 13.5 Monocytes (%) (Auto) 5.8 Eosinophils (%) (Auto) 3.8 Basophils (%) (Auto) 0.8 Neutrophils # (Auto) 6.5 Lymphocytes # (Auto) 1.2 Monocytes # (Auto) 0.5 Eosinophils # (Auto) 0.3 Basophils # (Auto) 0.1 CBC Comment DIFF FINAL Differential Comment Prothrombin Time 22.7 Prothromb Time International Ratio 2.0 Activated Partial Thromboplast Time 55.9 Blood Urea Nitrogen 54 Creatinine 4.07 Random Glucose 116 Calcium Level 8.3 Sodium Level 137 Potassium Level 5.8 Chloride Level 107 Carbon Dioxide Level 21.0 Anion Gap 9 Estimat Glomerular Filtration Rate 11 Urine Color COLORLESS Urine Turbidity HAZY Urine pH 7.0 Urine Specific [place] 1.004 Urine Protein TRACE Urine Glucose (UA) NEG Urine Ketones NEG Urine Occult Blood TRACE Urine Nitrite NEG Urine Bilirubin NEG Urine Urobilinogen LESS THAN 2.0 Urine Leukocyte Esterase LARGE Urine RBC LESS THAN 1 Urine WBC 10 Urine Squamous Epithelial Cells 1 Urine Transitional Epithelial Cells <1 Urine Bacteria FEW Urine Yeast with Hyphae MANY Urine Yeast (Budding) OCC Microscopic Urinalysis Comment CATH-CULTURE IND Date/Time Source Procedure Growth Status 01/03/17 14:20 Urine Catheterized Urine Urine Culture Pending Received Result Diagram: 01/03/17 1407 01/03/17 1407 Caprini VTE Risk Assessment Caprini VTE Risk Assessment: Mod/High Risk (score >= 2) Caprini Risk Assessment Model Point Value = 1 Point Value = 2 Point Value = 3 Point Value = 5 Age 41-60 Minor surgery BMI > 25 kg/m2 Swollen legs Varicose veins or History of unexplained or recurrent spontaneous Oral contraceptives or hormone replacement Sepsis (< 1 month) Serious lung disease, including pneumonia (< 1 month) Abnormal pulmonary function Acute myocardial infarction Congestive heart failure (< 1 month) History of inflammatory bowel disease Medical patient at bed rest Age 61-74 Arthroscopic surgery Major open surgery (> 45 min) Laparoscopic surgery (> 45 min) Malignancy Confined to bed (> 72 hours) Immobilizing plaster cast Central venous access Age >= 75 History of VTE Family history of VTE Factor V Leiden Prothrombin [id number] Lupus anticoagulant Anticardiolipin antibodies Elevated serum homocysteine Heparin-induced thrombocytopenia Other congenital or acquired thrombophilia Stroke (< 1 month) Elective arthroplasty Hip, pelvis, or leg fracture Acute spinal cord injury (< 1 month) Prophylaxis Regimen Total Risk Factor Score Risk Level Prophylaxis Regimen 0-1 Low Early ambulation 2 Moderate Order ONE of the following: *Sequential Compression Device (SCD) *Heparin 5000 units SQ BID 3-4 Higher Order ONE of the following medications: *Heparin 5000 units SQ TID *Enoxaparin/Lovenox 40 mg SQ daily (WT < 150 kg, CrCl > 30 mL/min) *Enoxaparin/Lovenox 30 mg SQ daily (WT < 150 kg, CrCl > 10-29 mL/min) *Enoxaparin/Lovenox 30 mg SQ BID (WT < 150 kg, CrCl > 30 mL/min) AND/OR *Sequential Compression Device (SCD) 5 or more Highest Order ONE of the following medications: *Heparin 5000 units SQ TID (Preferred with Epidurals) *Enoxaparin/Lovenox 40 mg SQ daily (WT < 150 kg, CrCl > 30 mL/min) *Enoxaparin/Lovenox 30 mg SQ daily (WT < 150 kg, CrCl > 10-29 mL/min) *Enoxaparin/Lovenox 30 mg SQ BID (WT < 150 kg, CrCl > 30 mL/min) AND *Sequential Compression Device (SCD) Assessment and Plan Assessment and Plan This is a chronically ill 56-year-old female with past medical history of ESRD on HD, HLD, CHF, anxiety, DM, hypothyroidism, kidney, chronic wounds, chronic indwelling Ruiz who presented with pelvic pain and bleeding Pelvic pain/bleeding: Unclear if gynecological and urological. -DIAL SCREW ASSEMBLER has been consulted from the ED, appreciate input -Hemoglobin 7.6, previously 8.6 on 10/08/16. 2 units PRBCs ordered for transfusion. Follow H&H. -UA with evidence of fungal UTI, start renally adjusted fluconazole -Continue home [place] and add IV Dilaudid as needed for pain -May need urology input depending on DIAL SCREW ASSEMBLER evaluation Chronic anticoagulation with recent lower extremity DVT due to immobility -INR therapeutic at 2.0, no active bleeding currently, continue Coumadin and monitor INR Chronic wounds with infection: Afebrile with no leukocytosis. -Resume home IV meropenem -Nephrology to resume IV vancomycin with dialysis -Continue Lactinex on antibiotics -Continue wound care with Dakin solution -Consult burr bench hand ESRD on HD: Patient due for dialysis today and has mild hyperkalemia 5.8. -Patient seen in the dialysis unit. -Patient's yarn spinner consulted Diabetes mellitus: -Continue home basal insulin -Monitor Accu-Cheks and cover with SSI as needed -Continue gabapentin for neuropathy COPD: Not currently in exacerbation -Continue nebs as needed Hypothyroidism: Chronic. -Continue Emily Thyroid RN to reconcile home medications DVT prophylaxis: On Coumadin Code Status full code Discussed Condition With Patient seen with Dr. Heredia Discussed with patient, milk receiver tank truck, Dr. Ramos, ED staff Attending Statement The exam, history, and the medical decision-making described in the above note were completed with the assistance of the mid-level provider. I reviewed and agree with the findings presented. I attest that I had a [id number] encounter with the patient on the same day, and personally performed and documented my assessment and findings in the medical record. seen with [facility] AND PATIENT SEEN AND I PERSONALLY EXAMINED THE PATIENT Joel Zhou Jan 03, 2017 17:22 Kerwin Heredia DO Jan 03, 2017 17:51
[2017-01-03] MEDS ORDERED: SODIUM CHLOR 0.9% 1000 ML INJ 1,000 ML IV PRN (17:25)
[2017-01-03] MEDS ORDERED: SODIUM CHLOR 0.9% 1000 ML INJ 1,000 ML OTHER PRN ×2 (17:25)
[2017-01-03] MEDS ORDERED: HEPARIN SODIUM - IV 10,000 UNITS/10 ML VIAL IV FLUSH PRN (17:30)
[2017-01-03] MEDS ORDERED: GENTAMICIN SULFATE (DIALYSIS USE ONLY) 20 MG/2 ML VIAL OTHER PRN (17:30)
[2017-01-03] MEDS ORDERED: ONDANSETRON HCL 4 MG/2 ML VIAL IV PUSH PRN (17:30)
[2017-01-03] MEDS ORDERED: GELATIN 12 MM/7 MM FOAM TOP PRN (17:30)
[2017-01-03] MEDS ORDERED: FLUCONAZOLE 100 MG TAB PO ONE (17:30)
[2017-01-03] MEDS ORDERED: NITROGLYCERIN 0.4 MG SL 25 TABS/BTL SL PRN (17:30)
[2017-01-03] MEDS ORDERED: ALBUMIN 25% INJ 100 ML IV PRN (17:30)
[2017-01-03] MEDS ORDERED: HEPARIN SODIUM - IV 10,000 UNITS/10 ML VIAL PRN (17:30)
[2017-01-03] MEDS ORDERED: MANNITOL 12.5 GM/50 ML VIAL IV PRN (17:30)
[2017-01-03] MEDS ORDERED: EPOETIN ALFA 10,000 UNITS/ML VIAL IV PUSH PRN (17:30)
[2017-01-03] MEDS ORDERED: diphenhydrAMINE HCL 25 MG CAP PO PRN (17:30)
[2017-01-03] MEDS ORDERED: cloNIDine HCL 0.1 MG TAB PO PRN (17:30)
--- NOTE | 2017-01-03 18:07 | MB ---
cc: ANJUM MIKE MD DATE OF CONSULTATION: 01/03/2017. REASON FOR CONSULTATION: End-stage renal disease on hemodialysis for management. HISTORY OF PRESENT ILLNESS: This is a 56-year-old female with past medical history of hypertension, history of C. difficile colitis, morbid obesity, multiple bed sores and decubitus ulcers who has been bed-ridden for the last two to three months, history of chronic anemia with recurrent transfusions, history of colostomy because of sacral wound and end-stage renal disease on hemodialysis. I was called to see the patient for the management of dialysis. The patient has been on hemodialysis Friday, Friday and Friday. She was recently discharged from [facility] where she was for almost two months and she was diagnosed with deep vein thrombosis and she was started on Coumadin. She was also diagnosed with a sacral wound with osteomyelitis and she was followed by infectious disease at [facility]. She underwent debridement and was on antibiotics meropenem and vancomycin. The meropenem she was getting at home and vancomycin she was supposed to get with dialysis. She missed her dialysis on Friday because she has nobody to take her there. The patient is quite obese and she needs a Katty sail repair person. She is not able to walk. Now she came in here because she has bleeding and is possibly having vaginal bleeding. The patient has a Ruiz catheter because she has a decubitus wound and she started feeling like she was urinating around the catheter and her son looked and he found that she was bleeding. She has a history of IUD placement a few years ago but she has not had any vaginal bleeding since 2014. PAST MEDICAL HISTORY: 1. Hypertension. 2. Diabetes mellitus. 3. Morbid obesity. 4. Multiple decubitus ulcers. 5. History of being bed-ridden. 6. Chronic anemia. 7. Deep venous thrombosis. 8. End-stage renal disease on hemodialysis. PAST SURGICAL HISTORY: 1. History of colostomy. 2. Left arm AV fistula surgery. 3. Multiple wound debridements. 4. section. 5. Cholecystectomy. 6. Coronary artery bypass grafting. 7. History of cardiac catheterization and stent placement in June of 2012. 8. Lap-band surgery. 9. Permacath placement. REVIEW OF SYSTEMS: The patient has generalized and is feeling tired. Denies any headache, dizziness or blurring of vision. There is no shortness of breath. No abdominal pain. She currently has a colostomy. She has a Ruiz catheter and clear urine is coming out. There is no history of fever. SOCIAL HISTORY: The patient is single. She lives with her son and a boyfriend. There is no history of smoking or alcoholism. FAMILY HISTORY: Family history is noncontributory. ALLERGIES: SHE HAS MULTIPLE ALLERGIES INCLUDIN. CLARITHROMYCIN. 2. FERROUS FUMARATE. 3. FERROUS SULFATE. 4. MORPHINE. 5. MULTIVITAMINS. MEDICATIONS: Currently she is on: 1. Gabapentin 100 milligrams twice a day. 2. Levemir 10 units subcutaneous daily. 3. Sodium hypochlorite topically. 4. [place] thyroid 60 milligrams daily. 5. Warfarin 1 milligram daily. 6. Insulin Aspart sliding scale. 7. Zofran as needed. 8. Narcan as needed. PHYSICAL EXAMINATION: GENERAL: On examination, the patient is awake and alert and she is now on dialysis and not in acute distress. VITAL SIGNS: Her last blood pressure was 133/62, temperature is 98.8, oxygen saturation on room air is 100%. HEAD, EYES, EARS, NOSE, THROAT: The pupils are mid-constricted. Nonicteric sclerae. Conjunctivae are pale. NECK: The neck is supple. JVD is not elevated. LUNGS: The patient has bilateral decreased air entry with occasional wheezing. HEART: S1 and S2 regular rhythm. ABDOMEN: Abdomen is obese, soft and lax. There is a colostomy bag. There is no definite tenderness. Bowel sounds positive. EXTREMITIES: She has bilateral lymphedema. Multiple edema especially in her back and her upper thigh area. INVESTIGATIONS: White blood cell count is 8.5, hemoglobin 7.6, platelet count of 330,000. Neutrophils 76.1. Sodium 137, potassium 5.8, chloride 107, bicarbonate 21, BUN 54, creatinine 4.0, calcium 8.3. INR is 2.0. Urine is turbid and trace occult blood. A few bacteria. Urine culture is pending. IMAGING STUDIES: There are no recent imaging studies. ASSESSMENT: 1. End-stage renal disease on hemodialysis. 2. Hyperkalemia. 3. Anemia. 4. Possible vaginal bleeding. 5. Urinary tract infection. 6. History of multiple decubitus with osteomyelitis on the back. PLAN: 1. The patient has been on the antibiotics, meropenem and Vancomycin and will continue the same. 2. Follow the urine culture. 3. She is getting dialysis now. Her potassium was 5.8. I saw her during dialysis and she is getting blood transfusion. 4. Gynecology has been consulted. 5. Will give her Epogen with the dialysis and Vancomycin with dialysis. 6. Follow the hemoglobin. 7. Today is her regular day for dialysis. She missed Friday. 8. Once she is cleared by gynecology, she possibly will be discharged. 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 She had two biopsies done, one was done at [place] and the other one and the [facility] and it did not show any calcification. She received sodium thiosulfate in the beginning but there was not much response and it was stopped. Her phosphorus was very low the last one we have and the binders were stopped so I will check her phosphorus again. Thank you for the consultation and Dr. Birmingham will cover the patient over the weekend. MD NILSON Faulkner/AUDELIA /5:18 PM /5:42 PM
--- NOTE | 2017-01-03 18:07 | MB ---
cc: ANJUM MIKE MD DATE OF CONSULTATION: 01/03/2017. REASON FOR CONSULTATION: End-stage renal disease on hemodialysis for management. HISTORY OF PRESENT ILLNESS: This is a 56-year-old female with past medical history of hypertension, history of C. difficile colitis, morbid obesity, multiple bed sores and decubitus ulcers who has been bed-ridden for the last two to three months, history of chronic anemia with recurrent transfusions, history of colostomy because of sacral wound and end-stage renal disease on hemodialysis. I was called to see the patient for the management of dialysis. The patient has been on hemodialysis Friday, Friday and Friday. She was recently discharged from a [facility] hospital where she was for almost two months and she was diagnosed with deep vein thrombosis and she was started on Coumadin. She was also diagnosed with a sacral wound with osteomyelitis and she was followed by infectious disease at [facility]. She underwent debridement and was on antibiotics meropenem and vancomycin. The meropenem she was getting at home and vancomycin she was supposed to get with dialysis. She missed her dialysis on Friday because she has nobody to take her there. The patient is quite obese and she needs a Katty java web application developer. She is not able to walk. Now she came in here because she has bleeding and is possibly having vaginal bleeding. The patient has a Ruiz catheter because she has a decubitus wound and she started feeling like she was urinating around the catheter and her son looked and he found that she was bleeding. She has a history of IUD placement a few years ago but she has not had any vaginal bleeding since 2014. PAST MEDICAL HISTORY: 1. Hypertension. 2. Diabetes mellitus. 3. Morbid obesity. 4. Multiple decubitus ulcers. 5. History of being bed-ridden. 6. Chronic anemia. 7. Deep venous thrombosis. 8. End-stage renal disease on hemodialysis. PAST SURGICAL HISTORY: 1. History of colostomy. 2. Left arm AV fistula surgery. 3. Multiple wound debridements. 4. section. 5. Cholecystectomy. 6. Coronary artery bypass grafting. 7. History of cardiac catheterization and stent placement in June of 2012. 8. Lap-band surgery. 9. Permacath placement. REVIEW OF SYSTEMS: The patient has generalized and is feeling tired. Denies any headache, dizziness or blurring of vision. There is no shortness of breath. No abdominal pain. She currently has a colostomy. She has a Ruiz catheter and clear urine is coming out. There is no history of fever. SOCIAL HISTORY: The patient is single. She lives with her son and a boyfriend. There is no history of smoking or alcoholism. FAMILY HISTORY: Family history is noncontributory. ALLERGIES: SHE HAS MULTIPLE ALLERGIES INCLUDIN. CLARITHROMYCIN. 2. FERROUS FUMARATE. 3. FERROUS SULFATE. 4. MORPHINE. 5. MULTIVITAMINS. MEDICATIONS: Currently she is on: 1. Gabapentin 100 milligrams twice a day. 2. Levemir 10 units subcutaneous daily. 3. Sodium hypochlorite topically. 4. [place] thyroid 60 milligrams daily. 5. Warfarin 1 milligram daily. 6. Insulin Aspart sliding scale. 7. Zofran as needed. 8. Narcan as needed. PHYSICAL EXAMINATION: GENERAL: On examination, the patient is awake and alert and she is now on dialysis and not in acute distress. VITAL SIGNS: Her last blood pressure was 133/62, temperature is 98.8, oxygen saturation on room air is 100%. HEAD, EYES, EARS, NOSE, THROAT: The pupils are mid-constricted. Nonicteric sclerae. Conjunctivae are pale. NECK: The neck is supple. JVD is not elevated. LUNGS: The patient has bilateral decreased air entry with occasional wheezing. HEART: S1 and S2 regular rhythm. ABDOMEN: Abdomen is obese, soft and lax. There is a colostomy bag. There is no definite tenderness. Bowel sounds positive. EXTREMITIES: She has bilateral lymphedema. Multiple edema especially in her back and her upper thigh area. INVESTIGATIONS: White blood cell count is 8.5, hemoglobin 7.6, platelet count of 330,000. Neutrophils 76.1. Sodium 137, potassium 5.8, chloride 107, bicarbonate 21, BUN 54, creatinine 4.0, calcium 8.3. INR is 2.0. Urine is turbid and trace occult blood. A few bacteria. Urine culture is pending. IMAGING STUDIES: There are no recent imaging studies. ASSESSMENT: 1. End-stage renal disease on hemodialysis. 2. Hyperkalemia. 3. Anemia. 4. Possible vaginal bleeding. 5. Urinary tract infection. 6. History of multiple decubitus with osteomyelitis on the back. PLAN: 1. The patient has been on the antibiotics, meropenem and Vancomycin and will continue the same. 2. Follow the urine culture. 3. She is getting dialysis now. Her potassium was 5.8. I saw her during dialysis and she is getting blood transfusion. 4. Gynecology has been consulted. 5. Will give her Epogen with the dialysis and Vancomycin with dialysis. 6. Follow the hemoglobin. 7. Today is her regular day for dialysis. She missed Friday. 8. Once she is cleared by gynecology, she possibly will be discharged. 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 She had two biopsies done, one was done at [place] and the other one and the [facility] and it did not show any calcification. She received sodium thiosulfate in the beginning but there was not much response and it was stopped. Her phosphorus was very low the last one we have and the binders were stopped so I will check her phosphorus again. Thank you for the consultation and Dr. Birmingham will cover the patient over the weekend. MD NILSON Faulkner/AUDELIA /5:18 PM /5:42 PM
[2017-01-03] MEDS: VANCOMYCIN INJ 1,250 MG in SODIUM CHLOR 0.9% 250 ML INJ 250 ML IV SCH (19:21)
[2017-01-03] MEDS ORDERED: NS IV SCH ×2 (21:00)
[2017-01-03] MEDS ORDERED: MEROPENEM IV SCH ×2 (21:00)
[2017-01-03] MEDS ORDERED: MEROPENEM 1000 MG VIAL IV SCH (21:00)
[2017-01-03] MEDS: INSULIN ASPART SUPPLEMENTAL SCALE SQ SCH (21:00)
[2017-01-03] MEDS: GABAPENTIN 100 MG CAP PO SCH (21:45)
[2017-01-03] MEDS: LACTOBACILLUS ACIDOPHILUS 1 GM PACKET PO SCH (21:46)
[2017-01-03] MEDS: SODIUM CHLORIDE 0.9% FLUSH 10 ML FLUSH IV FLUSH SCH (21:47)
[2017-01-03] MEDS: ACETAMINOPHEN/HYDROcodone 325 MG/10 MG TAB PO PRN (21:47)
[2017-01-03] MEDS: WARFARIN SOD 1 MG TAB PO SCH (21:48)
[2017-01-03 23:28] LABS: AUTOMATED NEUTROPHIL # 7.5 TH/MM3 (1.8-7.7); BASOPHIL # 0.1 TH/MM3 (0-0.2); EOSINOPHIL # 0.2 TH/MM3 (0-0.4); EOSINOPHIL % 2.2 % (0.0-4.0); HEMATOCRIT 27.8 % (35.0-46.0); HEMOGLOBIN 9.2 GM/DL (11.6-15.3); LYMPH % 11.6 % (9.0-44.0); LYMPHOCYTE # 1.1 TH/MM3 (1.0-4.8); MEAN CELL VOLUME 81.6 FL (80.0-100.0); MEAN CORPUSCULAR HGB CONC 33.1 % (32.0-36.0); MEAN PLATELET VOLUME 6.6 FL (7.0-11.0); MONO % 6.7 % (0.0-8.0); MONOCYTE # 0.6 TH/MM3 (0-0.9); NEUT % 78.5 % (16.0-70.0); PLATELET COUNT 348 TH/MM3 (150-450); RED BLOOD COUNT 3.41 MIL/MM3 (4.00-5.30); RED CELL DISTRIBUTION WIDTH 17.6 % (11.6-17.2); WHITE BLOOD COUNT 9.5 TH/MM3 (4.0-11.0)
[2017-01-03] MEDS: MEROPENEM IV SCH (23:33)
[2017-01-03] MEDS: SODIUM CHLORIDE 0.9% IV SCH (23:33)
[2017-01-03 23:39] LABS: ALBUMIN 1.8 GM/DL (3.4-5.0); BICARBONATE 25.4 MEQ/L (21.0-32.0); BLOOD UREA NITROGEN 33 MG/DL (7-18); CHLORIDE 103 MEQ/L (98-107); GLUCOSE,RANDOM 118 MG/DL (74-106); SODIUM (NA) 138 MEQ/L (136-145)
[2017-01-03 23:42] LABS: ALKALINE PHOSPHATASE 90 U/L (45-117); ALT (GPT) 16 U/L (10-53); AST (GOT) 25 U/L (15-37); CREATININE 2.82 MG/DL (0.50-1.00); GLOMERULAR FILTRATION RATE 17 ML/MIN (>89); TOTAL BILIRUBIN ADULT 0.7 MG/DL (0.2-1.0); TOTAL PROTEIN 6.2 GM/DL (6.4-8.2)
[2017-01-04] VITALS (8 sets, daily range): BP systolic 141–182; BP diastolic 58–77; PULSE 101–110; RESP 18–20; TEMP 98–98.4; O2SAT 97–100
--- NOTE | 2017-01-04 01:13 | PD.CONS ---
History & Physical H&P PRIVATE DUTY NURSE consult Patient is a 56-year-old white female para 1 repeat 1 who has multiple medical problems including diabetes hypertension end-stage renal disease morbid obesity multiple decubitus skin wounds, colostomy, indwelling Ruiz and is bedridden. Her son noticed some bleeding in the pelvic area possibly from around the Ruiz catheter there was no heavy bleeding or period like bleeding noted. She is on IV antibiotics she's diabetic she has yeast in the urine and so almost certainly has monilial vaginitis and this condition can certainly cause some spotting. She is also on anticoagulation therapy which can certainly cause an increased risk for bleeding from vagina or bladder or rectum. She has an indwelling Ruiz which can cause irritation equal and minimal spotting on a chronic basis. In 2014 she had postmenopausal bleeding and a PRIVATE DUTY NURSE doctor to her surgery and a D&C which was negative for cancer and also placed a Mirena IUD for progestational therapy to the endometrium to keep it minimal and atrophic that IUD is still in place is still active hormone yao for another 2 years. The patient unable to open her legs to be examined vaginally she begged me not to do an internal exam because of the pain it would cause and her knees and legs, so I did not do an internal exam because her symptoms are very minimal. I did visualize with a flashlight the external genitalia which appeared normal there was no blood no active bleeding only a very small amount of blood on the inner thigh from the Ruiz catheter Because this bleeding we've seen is very minimal and of uncertain etiology and because the patient has comorbidity and other major health issues; that what we are dealing with is of no consequence basically I recommended checking a pelvic ultrasound transabdominally if possible just see the IUD to see if is still of the place where it was supposed to be, to see what the endometrial thickness is if it's 1 cm or less and there is no significant worry of uterine pathology in this type patient. If the ultrasound can see those items and evaluate neck that would be good if we cannot because of her size then just nothing needs to be done unless she begins to bleed very heavily Sawyer Lira II, MD Jan 04, 2017 01:13
[2017-01-04] MEDS: ACETAMINOPHEN/HYDROcodone 325 MG/10 MG TAB PO PRN ×5 (04:10→21:25)
[2017-01-04] MEDS: HYDROmorphone HCL PF 1 MG/ML VIAL IV PUSH PRN ×4 (06:20→18:33)
[2017-01-04] MEDS: INSULIN ASPART SUPPLEMENTAL SCALE SQ SCH ×4 (08:00→21:00)
[2017-01-04] MEDS: INSULIN DETEMIR 100 UNITS/ML VIAL SQ SCH (08:34)
[2017-01-04] MEDS: GABAPENTIN 100 MG CAP PO SCH ×2 (08:35→21:25)
[2017-01-04] MEDS: MEROPENEM IV SCH ×2 (08:35→21:26)
[2017-01-04] MEDS: FLUCONAZOLE 100 MG TAB PO SCH (08:35)
[2017-01-04] MEDS: THYROID 60 MG TAB PO SCH (08:35)
[2017-01-04] MEDS: SODIUM CHLORIDE 0.9% IV SCH ×2 (08:35→21:26)
[2017-01-04] MEDS: SODIUM CHLORIDE 0.9% FLUSH 10 ML FLUSH IV FLUSH SCH ×2 (08:37→21:26)
[2017-01-04] MEDS: SODIUM HYPOCHLORITE 0.25% 500 ML BTL TOPICAL SCH (08:37)
[2017-01-04] MEDS: LACTOBACILLUS ACIDOPHILUS 1 GM PACKET PO SCH ×3 (08:37→16:51)
[2017-01-04 10:57] LABS: AUTOMATED NEUTROPHIL # 5.4 TH/MM3 (1.8-7.7); BASOPHIL # 0.1 TH/MM3 (0-0.2); EOSINOPHIL # 0.3 TH/MM3 (0-0.4); EOSINOPHIL % 3.7 % (0.0-4.0); HEMOGLOBIN 9.5 GM/DL (11.6-15.3); LYMPH % 17.8 % (9.0-44.0); LYMPHOCYTE # 1.4 TH/MM3 (1.0-4.8); MEAN CORPUSCULAR HEMOGLOBIN 26.5 PG (27.0-34.0); MEAN CORPUSCULAR HGB CONC 32.7 % (32.0-36.0); MEAN PLATELET VOLUME 6.5 FL (7.0-11.0); MONO % 6.7 % (0.0-8.0); MONOCYTE # 0.5 TH/MM3 (0-0.9); NEUT % 70.8 % (16.0-70.0); PLATELET COUNT 365 TH/MM3 (150-450); RED BLOOD COUNT 3.58 MIL/MM3 (4.00-5.30); RED CELL DISTRIBUTION WIDTH 17.9 % (11.6-17.2); WHITE BLOOD COUNT 7.7 TH/MM3 (4.0-11.0)
[2017-01-04 11:04] LABS: INTERNATIONAL NORMALIZED RATIO 1.9 RATIO; PROTHROMBIN TIME - PATIENT 22.1 SEC (9.8-11.6)
--- NOTE | 2017-01-04 11:46 | RADRPT ---
EXAM DATE/TIME: 01/04/2017 10:52 [place] COMPARISON: No previous studies available for comparison. INDICATIONS : Bleeding. MEDICAL HISTORY : Congestive heart failure. Hypercholesterolemia. Hypertension. Thyroid disease. Neck pain. Hyperlipide kang. Chest pain. Dialysis. Diabetes. Anemia. MRSA. C-diff. SURGICAL HISTORY : Tonsillectomy. Coronary artery stent. CABG. Adenoidectomy. Lap band surgery. Cholecystectomy. Cesarea n section. AV fistula. ENCOUNTER: Initial ACUITY: 1 month PAIN SCORE: 10/10 LOCATION: Bilateral pelvis MEASUREMENTS: FINDINGS: The examination is markedly limited due to the condition of the patient. The uterus and ovaries are n ot visualized sonographically on this limited examination. A Ruiz catheter is noted within the urina ry bladder. CONCLUSION: Markedly limited ultrasound of the pelvis with nonvisualization of the uterus and ova jean-claude as described above. Dank Jansen MD on January 04, 2017 at 11:42 Board Certified Radiologist. This report was verified electronically.
[2017-01-04 12:04] LABS: BICARBONATE 24.6 MEQ/L (21.0-32.0); CALCIUM 8.3 MG/DL (8.5-10.1); CREATININE 3.18 MG/DL (0.50-1.00); PHOSPHORUS 5.2 MG/DL (2.5-4.9)
[2017-01-04] MEDS ORDERED: [UNRECOGNIZED DRUG - SUPPLY] (12:07)
--- NOTE | 2017-01-04 12:20 | HHI.PR ---
Subjective Remarks No acute events overnight. Patient's blood pressure elevated to 182/77. Per patient, she is unaware if she has had continued bleeding from her Ruiz catheter site. She denies dizziness or lightheadedness. Requests to go home. Objective Vitals Vital Signs Date Time Temp Pulse Resp B/P (MAP) Pulse Ox O2 Delivery O2 Flow Rate FiO2 01/04/17 10:35 99 01/04/17 08:00 98.4 110 20 182/77 (112) 99 01/04/17 05:20 98.2 104 19 141/63 (89) 100 01/04/17 00:21 98.2 106 18 143/58 (86) 98 01/03/17 22:00 Room Air 01/03/17 21:30 98.9 103 18 126/54 (78) 100 01/03/17 19:08 97.3 97 20 168/75 01/03/17 19:04 97.6 113 20 161/84 01/03/17 19:03 97.6 104 20 161/84 01/03/17 18:52 97.8 69 20 194/74 01/03/17 17:16 100 21 01/03/17 13:22 98.8 107 22 133/62 (85) 100 Room Air I/O 01/03/17 01/03/17 01/03/17 01/04/17 01/04/17 01/04/17 07:00 15:00 23:00 07:00 15:00 23:00 Intake Total 815 ml Output Total 3000 ml 650 ml Balance -2185 ml -650 ml Intake Packed Cells 800 ml Blood Product IV Normal Saline Flush 15 ml Output Urine Total 650 ml Hemodialysis 3000 ml Result Diagram: 01/04/17 1023 01/04/17 1023 Objective Remarks GENERAL: Well-developed well-nourished. Chronically ill-appearing. Morbidly obese. In no acute distress. SKIN: Warm and dry. Chronic wounds present on the left flank, sacrum, right lower extremity. Dialysis catheter in place on right chest wall. HEENT: Normocephalic. Pupils equal and round. Mucous membranes pink and moist. CARDIOVASCULAR: Regular rate and rhythm. No murmur appreciated. RESPIRATORY: No accessory muscle use. Clear to auscultation. Breath sounds equal bilaterally. GASTROINTESTINAL: Abdomen soft, non-tender, nondistended. Bowel sounds x4. : Indwelling Ruiz catheter in place. No bleeding at this time. MUSCULOSKELETAL: No obvious deformities. No clubbing or cyanosis. No edema. NEUROLOGICAL: Awake and alert. Moves upper and lower extremities spontaneously. Normal speech. PSYCHIATRIC: Anxious and slightly depressed mood and affect; insight and judgment normal. A/P Assessment and Plan This is a chronically ill 56-year-old female with past medical history of ESRD on HD, HLD, CHF, anxiety, DM, hypothyroidism, kidney, chronic wounds, chronic indwelling Ruiz who presented with pelvic pain and bleeding Pelvic pain/bleeding: Resolved -Seen by COMMISSARY STEWARD, minimal concern that this is of COMMISSARY STEWARD origin -Hemoglobin 7.6, previously 8.6 on 10/08/16. 2 units PRBCs ordered for transfusion. H&H stable with appropriate response. -UA with evidence of fungal UTI, continue renally adjusted fluconazole -Continue home [place] and add IV Dilaudid as needed for pain -Per patient, the amount of blood was small and no more blood was visualized since admission. Will defer Uro consult for now. Chronic anticoagulation with recent lower extremity DVT due to immobility -INR therapeutic at 2.0, no active bleeding currently, continue Coumadin and monitor INR Chronic wounds with infection: Afebrile with no leukocytosis. -Resume home IV meropenem -Nephrology to resume IV vancomycin with dialysis -Continue Lactinex on antibiotics -Continue wound care with Dakin solution -Consult silver miner blasting for wound vac placement; once this is placed patient can be discharged ESRD on HD: Patient due for dialysis today and has mild hyperkalemia 5.8. -Patient seen in the dialysis unit. -Patient's tree driller consulted Diabetes mellitus: -Continue home basal insulin -Monitor Accu-Cheks and cover with SSI as needed -Continue gabapentin for neuropathy COPD: Not currently in exacerbation -Continue nebs as needed Hypothyroidism: Chronic. -Continue [place] Thyroid DVT prophylaxis: On Coumadin Discharge Planning Anticipate DC tomorrow once patient has been seen by wound care. Patient already has HHC and will continue this. Lillian Loyd MD Jan 04, 2017 12:19
--- NOTE | 2017-01-04 12:20 | HHI.PR ---
Subjective Remarks No acute events overnight. Patient's blood pressure elevated to 182/77. Per patient, she is unaware if she has had continued bleeding from her Ruiz catheter site. She denies dizziness or lightheadedness. Requests to go home. Objective Vitals Vital Signs Date Time Temp Pulse Resp B/P (MAP) Pulse Ox O2 Delivery O2 Flow Rate FiO2 01/04/17 10:35 99 01/04/17 08:00 98.4 110 20 182/77 (112) 99 01/04/17 05:20 98.2 104 19 141/63 (89) 100 01/04/17 00:21 98.2 106 18 143/58 (86) 98 01/03/17 22:00 Room Air 01/03/17 21:30 98.9 103 18 126/54 (78) 100 01/03/17 19:08 97.3 97 20 168/75 01/03/17 19:04 97.6 113 20 161/84 01/03/17 19:03 97.6 104 20 161/84 01/03/17 18:52 97.8 69 20 194/74 01/03/17 17:16 100 21 01/03/17 13:22 98.8 107 22 133/62 (85) 100 Room Air I/O 01/03/17 01/03/17 01/03/17 01/04/17 01/04/17 01/04/17 07:00 15:00 23:00 07:00 15:00 23:00 Intake Total 815 ml Output Total 3000 ml 650 ml Balance -2185 ml -650 ml Intake Packed Cells 800 ml Blood Product IV Normal Saline Flush 15 ml Output Urine Total 650 ml Hemodialysis 3000 ml Result Diagram: 01/04/17 1023 01/04/17 1023 Objective Remarks GENERAL: Well-developed well-nourished. Chronically ill-appearing. Morbidly obese. In no acute distress. SKIN: Warm and dry. Chronic wounds present on the left flank, sacrum, right lower extremity. Dialysis catheter in place on right chest wall. HEENT: Normocephalic. Pupils equal and round. Mucous membranes pink and moist. CARDIOVASCULAR: Regular rate and rhythm. No murmur appreciated. RESPIRATORY: No accessory muscle use. Clear to auscultation. Breath sounds equal bilaterally. GASTROINTESTINAL: Abdomen soft, non-tender, nondistended. Bowel sounds x4. : Indwelling Ruiz catheter in place. No bleeding at this time. MUSCULOSKELETAL: No obvious deformities. No clubbing or cyanosis. No edema. NEUROLOGICAL: Awake and alert. Moves upper and lower extremities spontaneously. Normal speech. PSYCHIATRIC: Anxious and slightly depressed mood and affect; insight and judgment normal. A/P Assessment and Plan This is a chronically ill 56-year-old female with past medical history of ESRD on HD, HLD, CHF, anxiety, DM, hypothyroidism, kidney, chronic wounds, chronic indwelling Ruiz who presented with pelvic pain and bleeding Pelvic pain/bleeding: Resolved -Seen by ASSOCIATE JUVENILE COURT JUDGE, minimal concern that this is of ASSOCIATE JUVENILE COURT JUDGE origin -Hemoglobin 7.6, previously 8.6 on 10/08/16. 2 units PRBCs ordered for transfusion. H&H stable with appropriate response. -UA with evidence of fungal UTI, continue renally adjusted fluconazole -Continue home [place] and add IV Dilaudid as needed for pain -Per patient, the amount of blood was small and no more blood was visualized since admission. Will defer Uro consult for now. Chronic anticoagulation with recent lower extremity DVT due to immobility -INR therapeutic at 2.0, no active bleeding currently, continue Coumadin and monitor INR Chronic wounds with infection: Afebrile with no leukocytosis. -Resume home IV meropenem -Nephrology to resume IV vancomycin with dialysis -Continue Lactinex on antibiotics -Continue wound care with Dakin solution -Consult respiratory tech for wound vac placement; once this is placed patient can be discharged ESRD on HD: Patient due for dialysis today and has mild hyperkalemia 5.8. -Patient seen in the dialysis unit. -Patient's garment turner consulted Diabetes mellitus: -Continue home basal insulin -Monitor Accu-Cheks and cover with SSI as needed -Continue gabapentin for neuropathy COPD: Not currently in exacerbation -Continue nebs as needed Hypothyroidism: Chronic. -Continue [place] Thyroid DVT prophylaxis: On Coumadin Discharge Planning Anticipate DC tomorrow once patient has been seen by wound care. Patient already has HHC and will continue this. Lillian Loyd MD Jan 04, 2017 12:19
--- NOTE | 2017-01-04 12:20 | HHI.PR ---
Subjective Remarks No acute events overnight. Patient's blood pressure elevated to 182/77. Per patient, she is unaware if she has had continued bleeding from her Ruiz catheter site. She denies dizziness or lightheadedness. Requests to go home. Objective Vitals Vital Signs Date Time Temp Pulse Resp B/P (MAP) Pulse Ox O2 Delivery O2 Flow Rate FiO2 01/04/17 10:35 99 01/04/17 08:00 98.4 110 20 182/77 (112) 99 01/04/17 05:20 98.2 104 19 141/63 (89) 100 01/04/17 00:21 98.2 106 18 143/58 (86) 98 01/03/17 22:00 Room Air 01/03/17 21:30 98.9 103 18 126/54 (78) 100 01/03/17 19:08 97.3 97 20 168/75 01/03/17 19:04 97.6 113 20 161/84 01/03/17 19:03 97.6 104 20 161/84 01/03/17 18:52 97.8 69 20 194/74 01/03/17 17:16 100 21 01/03/17 13:22 98.8 107 22 133/62 (85) 100 Room Air I/O 01/03/17 01/03/17 01/03/17 01/04/17 01/04/17 01/04/17 07:00 15:00 23:00 07:00 15:00 23:00 Intake Total 815 ml Output Total 3000 ml 650 ml Balance -2185 ml -650 ml Intake Packed Cells 800 ml Blood Product IV Normal Saline Flush 15 ml Output Urine Total 650 ml Hemodialysis 3000 ml Result Diagram: 01/04/17 1023 01/04/17 1023 Objective Remarks GENERAL: Well-developed well-nourished. Chronically ill-appearing. Morbidly obese. In no acute distress. SKIN: Warm and dry. Chronic wounds present on the left flank, sacrum, right lower extremity. Dialysis catheter in place on right chest wall. HEENT: Normocephalic. Pupils equal and round. Mucous membranes pink and moist. CARDIOVASCULAR: Regular rate and rhythm. No murmur appreciated. RESPIRATORY: No accessory muscle use. Clear to auscultation. Breath sounds equal bilaterally. GASTROINTESTINAL: Abdomen soft, non-tender, nondistended. Bowel sounds x4. : Indwelling Ruiz catheter in place. No bleeding at this time. MUSCULOSKELETAL: No obvious deformities. No clubbing or cyanosis. No edema. NEUROLOGICAL: Awake and alert. Moves upper and lower extremities spontaneously. Normal speech. PSYCHIATRIC: Anxious and slightly depressed mood and affect; insight and judgment normal. A/P Assessment and Plan This is a chronically ill 56-year-old female with past medical history of ESRD on HD, HLD, CHF, anxiety, DM, hypothyroidism, kidney, chronic wounds, chronic indwelling Ruiz who presented with pelvic pain and bleeding Pelvic pain/bleeding: Resolved -Seen by HOMEOWNER ASSOCIATION MANAGER, minimal concern that this is of HOMEOWNER ASSOCIATION MANAGER origin -Hemoglobin 7.6, previously 8.6 on 10/08/16. 2 units PRBCs ordered for transfusion. H&H stable with appropriate response. -UA with evidence of fungal UTI, continue renally adjusted fluconazole -Continue home [place] and add IV Dilaudid as needed for pain -Per patient, the amount of blood was small and no more blood was visualized since admission. Will defer Uro consult for now. Chronic anticoagulation with recent lower extremity DVT due to immobility -INR therapeutic at 2.0, no active bleeding currently, continue Coumadin and monitor INR Chronic wounds with infection: Afebrile with no leukocytosis. -Resume home IV meropenem -Nephrology to resume IV vancomycin with dialysis -Continue Lactinex on antibiotics -Continue wound care with Dakin solution -Consult steward/stewardess tourist class for wound vac placement; once this is placed patient can be discharged ESRD on HD: Patient due for dialysis today and has mild hyperkalemia 5.8. -Patient seen in the dialysis unit. -Patient's signal operator technical consulted Diabetes mellitus: -Continue home basal insulin -Monitor Accu-Cheks and cover with SSI as needed -Continue gabapentin for neuropathy COPD: Not currently in exacerbation -Continue nebs as needed Hypothyroidism: Chronic. -Continue [place] Thyroid DVT prophylaxis: On Coumadin Discharge Planning Anticipate DC tomorrow once patient has been seen by wound care. Patient already has HHC and will continue this. Lillian Loyd MD Jan 04, 2017 12:19
--- NOTE | 2017-01-04 15:31 | HHI.NPPN ---
Subjective History of Present Illness This is a 56-year-old female with past medical history of hypertension, history of C. difficile colitis, morbid obesity, multiple bed sores and decubitus ulcers who has been bed-ridden for the last two to three months, history of chronic anemia with recurrent transfusions, history of colostomy because of sacral wound and end-stage renal disease on hemodialysis. Review of Systems General Constitutional: Fatigue Objective Data Data Vital Signs Date Time Temp Pulse Resp B/P (MAP) Pulse Ox O2 Delivery O2 Flow Rate FiO2 01/04/17 12:00 98.1 103 20 157/68 (97) 97 01/04/17 10:35 99 01/04/17 08:00 98.4 110 20 182/77 (112) 99 01/04/17 08:00 99 Room Air 01/04/17 05:20 98.2 104 19 141/63 (89) 100 01/04/17 00:21 98.2 106 18 143/58 (86) 98 01/03/17 22:00 Room Air 01/03/17 21:30 98.9 103 18 126/54 (78) 100 01/03/17 19:08 97.3 97 20 168/75 01/03/17 19:04 97.6 113 20 161/84 01/03/17 19:03 97.6 104 20 161/84 01/03/17 18:52 97.8 69 20 194/74 01/03/17 17:16 100 21 -: 01/04/17 1023 01/04/17 1023 Microbiology 01/04/17 Aerobic Blood Culture, Received Pending 01/04/17 Anaerobic Blood Culture, Received Pending 01/03/17 Aerobic Blood Culture - Preliminary, Resulted NO GROWTH IN 1 DAY 01/03/17 Anaerobic Blood Culture - Preliminary, Resulted NO GROWTH IN 1 DAY Physical Exam General Appearance: Obese Neck Neck Exam: Neck Supple Pulmonary Resp Exam: Clear Bilaterally, Breath Sounds Equal Gastrointestinal/Abdomen GI Exam: Soft, Distended Extremeties Extremities Exam: Moderate Edema Neurologic Neuro Exam: Alert Assessment/Plan Problem List: (1) End stage kidney disease ICD Codes: N18.6 - End stage renal disease Status: Chronic Plan: hemodialysis done 3 L taken off on Friday goes M,W,F she has wound issues, infection follows with Jessie Sebastian MD Jan 04, 2017 15:31
--- NOTE | 2017-01-04 16:09 | MB ---
cc: JUAN MIGUEL SPENCE MD DATE OF CONSULTATION 01/04/2017 REQUESTING PHYSICIAN Joel Zhou REASON FOR CONSULTATION Consult infectious disease due to order for meropenem. HISTORY OF PRESENT ILLNESS This is a 56-year-old white female who was brought to the emergency department because of bleeding around the Ruiz catheter. The patient was noted to have dark blood around the Ruiz and some sharp pain. She was evaluated in the emergency department and admitted to the hospital. The patient was started on meropenem. Because of the antibiotic stewardship program which requires infectious disease consultation for patients who are to receive Carbapenem, this infectious disease consultation is requested for antibiotic management. The patient has been on meropenem at home along with vancomycin for wounds of her buttock and sacrum areas. She was seen by an infectious disease specialist at [facility] who put her on those antibiotics and she is due to continue them until January 18. The antibiotics are currently being administered by her son at home. However, now that she is in the hospital she was restarted on the meropenem and vancomycin. The patient feels well. She states that she is ready to go home. She denies nausea, vomiting, abdominal pain, fever, chills, shortness of breath or aches or pain. She is a hemodialysis patient. Urinalysis was performed and it showed many yeast. Urine culture showed 50-100,000 colonies of mixed gram-positive malvin. She currently has clear neon yellow colored urine. The patient states that her Ruiz catheter was changed a week ago when she was discharged from [facility]. Blood cultures were taken on admission and has no growth. The white blood cell count is normal. She has no fever. PAST MEDICAL HISTORY Hypertension, diabetes mellitus, chronic anemia, end-stage renal disease on hemodialysis, morbid obesity, decubitus ulceration, history of colostomy, history of left AV fistula. Cholecystectomy, wound debridements. History of cardiac catheterization and stent. History of gastric surgery with lap-band. History of C-difficile. ALLERGIES CLARITHROMYCIN, FERROUS SULFATE, FERROUS FUMARATE, FERUMOXYTOL, IRON, MORPHINE, MULTIPLE VITAMIN. MEDICATIONS 1. Meropenem. 2. Vancomycin given with dialysis. 3. Fluconazole. 4. Thyroid. 5. Insulin. 6. Neurontin. 7. Lactinex. 8. [place] 10 p.r.n. 9. Dilaudid p.r.n. 10. Coumadin. SOCIAL HISTORY No tobacco, no alcohol. No illicit drugs. The patient is cared for by her son at home. REVIEW OF SYSTEMS Negative on 10-point review. PHYSICAL EXAMINATION GENERAL: This is an obese female who is in no acute distress. She is awake and alert and oriented. VITAL SIGNS: Include temperature of 98.1, BP 157/68, respirations 20, heart rate 103. HEENT: Head is atraumatic. Extraocular movements grossly intact, pupils reactive to light. No icterus. Oropharynx no visible lesions. NECK: Supple without adenopathy. No JVD. LUNGS: Clear breath sounds which are diminished at the bases. HEART: Regular S1-S2. No murmurs. No rubs. No gallops. ABDOMEN: Bowel sounds present, obese, soft, no tenderness appreciated. Colostomy bag in place. RECTAL: Not performed. EXTREMITIES: Chronic granular hyperpigmented matted areas of skin at both lower extremities including the tibias and to a lesser extent the thighs. The skin is mostly dry. NEURO: Nonfocal. PSYCH: The patient is calm and cooperative. She is a little tearful because she would like to not be in the hospital. LABORATORY DATA WBC 7.7, platelet count 365, 70% neutrophils, hemoglobin 9.5, creatinine 3.18, BUN 36, sodium 138. IMPRESSION 1. Chronic wound infections of the buttock. 2. The patient has been on IV antibiotics in the form of meropenem and vancomycin which is due to be given until January 18, at home. She has been given this antibiotics with the meropenem being administered by her son up until admission here. 3. Candiduria. 4. Chronic renal disease. RECOMMENDATIONS 1. Continue to treat the patient with meropenem and vancomycin as previously prescribed by infectious disease specialty who saw the patient before she was recently discharged from [facility]. 2. Continue to treat her with fluconazole for the candiduria. Thank you for this consultation. From my standpoint the patient can be discharged. She already has orders and supply of antibiotics at home to continue once she is discharged from this hospital. She also is followed by the renal specialist who can manage her vancomycin to be given with dialysis treatments. Juan Miguel Spence MD FD/ALESSANDRO /3:25 PM /3:42 PM MTDJalil
[2017-01-04] MEDS: WARFARIN SOD 1 MG TAB PO SCH (16:51)
[2017-01-04 21:15] LABS: BACTERIA, URINE FEW /hpf; BILIRUBIN, URINE NEG (NEG); BLOOD, URINE SMALL (NEG); GLUCOSE,URINE TRACE mg/dL (NEG); KETONE, URINE NEG (NEG); MUCUS URINE FEW /lpf (OCC); NITRITE,URINE NEG (NEG); TRANSITIONAL EPI CELLS, URINE 1 /hpf; URINE COLOR YELLOW (YELLW/STRAW); URINE LEUKOCYTE ESTERASE MOD (NEG); WHITE BLOOD CELL CLUMPS FEW
[2017-01-05] VITALS (8 sets, daily range): BP systolic 137–159; BP diastolic 62–70; PULSE 91–107; RESP 18–22; TEMP 97.9–98.8; O2SAT 97–99
[2017-01-05] MEDS: ACETAMINOPHEN/HYDROcodone 325 MG/10 MG TAB PO PRN ×4 (05:00→22:36)
[2017-01-05] MEDS: INSULIN ASPART SUPPLEMENTAL SCALE SQ SCH ×4 (08:00→21:00)
[2017-01-05 08:49] LABS: AUTOMATED NEUTROPHIL # 5.3 TH/MM3 (1.8-7.7); BASOPHIL # 0.1 TH/MM3 (0-0.2); BASOPHIL % 0.8 % (0.0-2.0); EOSINOPHIL # 0.4 TH/MM3 (0-0.4); EOSINOPHIL % 5.3 % (0.0-4.0); HEMATOCRIT 28.1 % (35.0-46.0); HEMOGLOBIN 9.2 GM/DL (11.6-15.3); LYMPH % 16.7 % (9.0-44.0); LYMPHOCYTE # 1.3 TH/MM3 (1.0-4.8); MEAN CELL VOLUME 82.2 FL (80.0-100.0); MEAN CORPUSCULAR HEMOGLOBIN 26.8 PG (27.0-34.0); MEAN CORPUSCULAR HGB CONC 32.6 % (32.0-36.0); MEAN PLATELET VOLUME 6.7 FL (7.0-11.0); MONO % 7.4 % (0.0-8.0); MONOCYTE # 0.6 TH/MM3 (0-0.9); NEUT % 69.8 % (16.0-70.0); PLATELET COUNT 320 TH/MM3 (150-450); RED BLOOD COUNT 3.42 MIL/MM3 (4.00-5.30); RED CELL DISTRIBUTION WIDTH 17.8 % (11.6-17.2); WHITE BLOOD COUNT 7.6 TH/MM3 (4.0-11.0)
[2017-01-05 08:56] LABS: PROTHROMBIN TIME - PATIENT 22.8 SEC (9.8-11.6)
[2017-01-05] MEDS: SODIUM HYPOCHLORITE 0.25% 500 ML BTL TOPICAL SCH (09:00)
[2017-01-05] MEDS: SODIUM CHLORIDE 0.9% IV SCH ×2 (09:00→21:18)
[2017-01-05] MEDS: THYROID 60 MG TAB PO SCH (09:00)
[2017-01-05] MEDS: SODIUM CHLORIDE 0.9% FLUSH 10 ML FLUSH IV FLUSH SCH ×2 (09:00→21:18)
[2017-01-05] MEDS: GABAPENTIN 100 MG CAP PO SCH ×2 (09:00→21:18)
[2017-01-05] MEDS: FLUCONAZOLE 100 MG TAB PO SCH (09:00)
[2017-01-05] MEDS: MEROPENEM IV SCH ×2 (09:00→21:18)
[2017-01-05] MEDS: INSULIN DETEMIR 100 UNITS/ML VIAL SQ SCH (09:00)
[2017-01-05] MEDS: LACTOBACILLUS ACIDOPHILUS 1 GM PACKET PO SCH ×3 (09:00→17:47)
--- NOTE | 2017-01-05 10:28 | HHI.DCPOC ---
Discharge Care Plan Goals to Promote Your Health * To prevent worsening of your condition and complications take all medications as prescribed * To maintain your health at the optimal level follow all discharge instructions Directions to Meet Your Goals Take your medications as prescribed Follow your dietary instruction Follow activity as directed Keep your appointments as scheduled Take your immunizations and boosters as scheduled If your symptoms worsen call your PCP, if no PCP go to Urgent Care Center or Emergency Room Smoking is Dangerous to Your Health. Avoid second hand smoke Call the 24-hour hour crisis hotline for domestic abuse at Lillian Loyd MD Jan 05, 2017 10:28
--- NOTE | 2017-01-05 10:28 | HHI.DCPOC ---
Discharge Care Plan Goals to Promote Your Health * To prevent worsening of your condition and complications take all medications as prescribed * To maintain your health at the optimal level follow all discharge instructions Directions to Meet Your Goals Take your medications as prescribed Follow your dietary instruction Follow activity as directed Keep your appointments as scheduled Take your immunizations and boosters as scheduled If your symptoms worsen call your PCP, if no PCP go to Urgent Care Center or Emergency Room Smoking is Dangerous to Your Health. Avoid second hand smoke Call the 24-hour hour crisis hotline for domestic abuse at Lillian Loyd MD Jan 05, 2017 10:28
--- NOTE | 2017-01-05 10:28 | HHI.DCPOC ---
Discharge Care Plan Goals to Promote Your Health * To prevent worsening of your condition and complications take all medications as prescribed * To maintain your health at the optimal level follow all discharge instructions Directions to Meet Your Goals Take your medications as prescribed Follow your dietary instruction Follow activity as directed Keep your appointments as scheduled Take your immunizations and boosters as scheduled If your symptoms worsen call your PCP, if no PCP go to Urgent Care Center or Emergency Room Smoking is Dangerous to Your Health. Avoid second hand smoke Call the 24-hour hour crisis hotline for domestic abuse at Lillian Loyd MD Jan 05, 2017 10:28
--- NOTE | 2017-01-05 10:33 | HHI.FF ---
Face to Face Verification Diagnosis: (1) Open wound of right hip and thigh (2) Open wound of left hip and thigh (3) Depression (4) Anemia in chronic kidney disease (5) HTN (hypertension) (6) Pressure ulcer of coccygeal region (7) Diabetes mellitus due to underlying condition with chronic kidney disease on chronic dialysis (8) Wound dehiscence, surgical Home Health Nursing Order: Wound care and dressing changes IV medication administration I have seen patient Ana María Foley on 01/05/17. My clinical findings support the need for the requested home health care services because: she is unable to ambulate or leave her home 2/2 her disease process Ltd mobility - disease progression Deconditioned w/ increased weakness Limited ability to care for self High risk of falls Infection w/ risk of complications Injectable med education/admin I certify that my clinical findings support that this patient is homebound because: inability to ambulate severe wound infections Unsafe to leave home unassisted [id number] bed/chair Lillian Loyd MD Jan 05, 2017 10:33
[2017-01-05] MEDS ORDERED: DIFL100T PO (10:41)
--- NOTE | 2017-01-05 10:42 | HHI.DS ---
Discharge Summary Admission Date Jan 03, 2017 at 17:14 Discharge Date: Jan 05, 2017 Admitting Diagnosis Hyperkalemia, anemia, chronic wounds, vagina bleed (1) Hyperkalemia ICD Code: E87.5 - Hyperkalemia Status: Acute (2) Severe anemia ICD Code: D64.9 - Anemia, unspecified Status: Chronic (3) Depression ICD Code: F32.9 - Major depressive disorder, single episode, unspecified Status: Chronic (4) Infected surgical wound ICD Code: T81.4XXA - Infection following a procedure, initial encounter Status: Acute (5) Anxiety ICD Code: F41.9 - Anxiety disorder, unspecified Status: Acute (6) Diabetes ICD Code: E11.9 - Type 2 diabetes mellitus without complications Status: Acute (7) Wounds, multiple ICD Code: T07 - Unspecified multiple injuries Status: Acute (8) Anemia in chronic kidney disease (CKD) ICD Code: N18.9 - Chronic kidney disease, unspecified; D63.1 - Anemia in chronic kidney disease Status: Acute (9) End stage renal disease on dialysis ICD Code: N18.6 - End stage renal disease; Z99.2 - Dependence on renal dialysis Status: Chronic (10) Nonhealing nonsurgical wound ICD Code: T14.8 - Other injury of unspecified body region Status: Acute (11) Immobility ICD Code: Z74.09 - Other reduced mobility (12) Pressure ulcer of coccygeal region ICD Code: L89.159 - Pressure ulcer of sacral region, unspecified stage Status: Acute Procedures None Brief History - From Admission This is a chronically ill 56-year-old female with past medical history of ESRD on HD, HLD, CHF, anxiety, DM, hypothyroidism, kidney, chronic wounds, chronic indwelling Ruiz who presented with pelvic pain and bleeding today. The patient was recently discharged from [facility] 1 week ago. Has been getting home wound care and antibiotics with IV vancomycin and meropenem. She has a chronic indwelling Ruiz catheter that was replaced one week ago. Today she was having some suprapubic discomfort. She states her son/POA checked and there was a significant amount of bleeding. Pain was not relieved with IV Dilaudid 0.5 mg in the ED. A pelvic exam was attempted in the ED and unable to be performed and PHOTOGRAMMETRIC COMPILATION SPECIALIST has been consulted. She denies any chest pain, shortness breath, lightheadedness, dizziness, fever, chills. CBC/BMP: 01/05/17 0808 01/04/17 1023 Significant Findings Laboratory Tests Test 01/03/17 14:07 01/03/17 14:20 01/03/17 22:55 01/04/17 10:23 Red Blood Count 2.83 MIL/MM3 (4.00-5.30) 3.41 MIL/MM3 (4.00-5.30) 3.58 MIL/MM3 (4.00-5.30) Hemoglobin 7.6 GM/DL (11.6-15.3) 9.2 GM/DL (11.6-15.3) 9.5 GM/DL (11.6-15.3) Hematocrit 23.4 % (35.0-46.0) 27.8 % (35.0-46.0) 29.0 % (35.0-46.0) Mean Corpuscular Hemoglobin 26.9 PG (27.0-34.0) 26.5 PG (27.0-34.0) Red Cell Distribution Width 17.3 % (11.6-17.2) 17.6 % (11.6-17.2) 17.9 % (11.6-17.2) Mean Platelet Volume 6.7 FL (7.0-11.0) 6.6 FL (7.0-11.0) 6.5 FL (7.0-11.0) Neutrophils (%) (Auto) 76.1 % (16.0-70.0) 78.5 % (16.0-70.0) 70.8 % (16.0-70.0) Prothrombin Time 22.7 SEC (9.8-11.6) 22.1 SEC (9.8-11.6) Activated Partial Thromboplast Time 55.9 SEC (24.3-30.1) Blood Urea Nitrogen 54 MG/DL (7-18) 33 MG/DL (7-18) 36 MG/DL (7-18) Creatinine 4.07 MG/DL (0.50-1.00) 2.82 MG/DL (0.50-1.00) 3.18 MG/DL (0.50-1.00) Random Glucose 116 MG/DL (74-106) 118 MG/DL (74-106) 114 MG/DL (74-106) Calcium Level 8.3 MG/DL (8.5-10.1) 8.0 MG/DL (8.5-10.1) 8.3 MG/DL (8.5-10.1) Potassium Level 5.8 MEQ/L (3.5-5.1) Estimat Glomerular Filtration Rate 11 ML/MIN (>89) 17 ML/MIN (>89) 15 ML/MIN (>89) Urine Turbidity HAZY (CLEAR) Urine Occult Blood TRACE (NEG) Urine Leukocyte Esterase LARGE (NEG) Urine WBC 10 /hpf (0-5) Urine Bacteria FEW /hpf (NONE) Urine Yeast with Hyphae MANY (NONE) Urine Yeast (Budding) OCC (NONE) Total Protein 6.2 GM/DL (6.4-8.2) Albumin 1.8 GM/DL (3.4-5.0) Phosphorus Level 5.2 MG/DL (2.5-4.9) Test 01/04/17 13:50 01/05/17 08:08 Urine Turbidity HAZY (CLEAR) Urine Protein 100 mg/dL (NEG-TRACE) Urine Occult Blood SMALL (NEG) Urine Leukocyte Esterase MOD (NEG) Urine RBC 140 /hpf (0-3) Urine WBC 39 /hpf (0-5) Urine WBC Clumps FEW (NONE) Urine Bacteria FEW /hpf (NONE) Urine Mucus FEW /lpf (OCC) Urine Yeast (Budding) MANY (NONE) Red Blood Count 3.42 MIL/MM3 (4.00-5.30) Hemoglobin 9.2 GM/DL (11.6-15.3) Hematocrit 28.1 % (35.0-46.0) Mean Corpuscular Hemoglobin 26.8 PG (27.0-34.0) Red Cell Distribution Width 17.8 % (11.6-17.2) Mean Platelet Volume 6.7 FL (7.0-11.0) Eosinophils (%) (Auto) 5.3 % (0.0-4.0) Prothrombin Time 22.8 SEC (9.8-11.6) Imaging Last Impressions Pelvis Ultrasound 01/04/17 0000 Signed Impressions: Service Date/Time: Wednesday, January 04, 2017 10:52 - CONCLUSION: Markedly limited ultrasound of the pelvis with nonvisualization of the uterus and ovaries as described above. Dank Jansen MD PE at Discharge GENERAL: Well-developed well-nourished. Chronically ill-appearing. Morbidly obese. In no acute distress. SKIN: Warm and dry. Chronic wounds present on the left flank, sacrum, right lower extremity. Dialysis catheter in place on right chest wall. HEENT: Normocephalic. Pupils equal and round. Mucous membranes pink and moist. CARDIOVASCULAR: Regular rate and rhythm. No murmur appreciated. RESPIRATORY: No accessory muscle use. Clear to auscultation. Breath sounds equal bilaterally. GASTROINTESTINAL: Abdomen soft, non-tender, nondistended. Bowel sounds x4. : Indwelling Ruiz catheter in place. No bleeding at this time. MUSCULOSKELETAL: No obvious deformities. No clubbing or cyanosis. No edema. NEUROLOGICAL: Awake and alert. Moves upper and lower extremities spontaneously. Normal speech. PSYCHIATRIC: Anxious and slightly depressed mood and affect; insight and judgment normal. Hospital Course Pelvic pain/bleeding: Resolved -Seen by PHOTOGRAMMETRIC COMPILATION SPECIALIST, minimal concern that this is of PHOTOGRAMMETRIC COMPILATION SPECIALIST origin -Hemoglobin 7.6, previously 8.6 on 10/08/16. 2 units PRBCs ordered for transfusion. H&H stable with appropriate response. -UA with evidence of fungal UTI, continue renally adjusted fluconazole -Continue home [place] and add IV Dilaudid as needed for pain -Per patient, the amount of blood was small and no more blood was visualized since admission. Will defer Uro consult. Chronic anticoagulation with recent lower extremity DVT due to immobility -INR therapeutic at 2.0, no active bleeding currently, continue Coumadin and monitor INR Chronic wounds with infection: Afebrile with no leukocytosis. -Resume home IV meropenem -Nephrology to resume IV vancomycin with dialysis -Continue Lactinex on antibiotics -Continue wound care with Dakin solution -Patient with wound vac and HHC ESRD on HD: Dialyzed yesterday Diabetes mellitus: -Continue home basal insulin -Monitor Accu-Cheks and cover with SSI as needed -Continue gabapentin for neuropathy COPD: Not currently in exacerbation -Continue nebs as needed Hypothyroidism: Chronic. -Continue [place] Thyroid Pt Condition on Discharge: Stable Discharge Disposition: Discharge Home Discharge Time: > 30 minutes Discharge Instructions DIET: Follow Instructions for: Diabetic Diet Activities you can perform: See Additionl Instruction Other Activity Instructions: Movement as tolerated Follow up Referrals: Infectious Disease - 1 Week PCP Follow-up - 1 Week New Medications: [Katty Sling - Large] () UNIT for For use with katty lift, #1 Fluconazole (Diflucan) 100 Mg Tab 50 MG PO DAILY for funguria, #5 TAB Continued Medications: Alprazolam (Xanax) 0.25 Mg Tab 0.25 MG PO Q6H PRN for ANXIETY, TAB [address] (Aspirin 81) 81 Mg Tabdr 81 MG PO DAILY, TAB 0 Refills Atorvastatin (Atorvastatin) 40 Mg Tab 40 MG PO HS for Cholesterol Management, #30 TAB 0 Refills Calcitriol (Calcitriol) 0.5 Mcg Cap 0.5 MCG PO DAILY for Calcium Supplement, #30 CAP 0 Refills Cholecalciferol (Vitamin D3) 10,000 Unit Tab 12187 UNITS PO BID for Nutritional Supplement, #1 BOTTLE 0 Refills Cinacalcet (Sensipar) 30 Mg Tab 30 MG PO DAILY for CKD, #30 TAB 0 Refills Diphenhydramine (Diphenhydramine) 25 Mg Cap 25 MG PO Q6H PRN for ALLERGIES, CAP 0 Refills Fidaxomicin (Dificid) 200 Mg Tab 200 MG PO BID for Diarrhea, #14 TAB Fluoxetine (Fluoxetine) 20 Mg Capsule 20 MG PO DAILY for Depression Control, #30 TAB Gabapentin (Gabapentin) 100 Mg Cap 100 MG PO BID, #60 CAP 0 Refills Gelfoam Sponge (Gelfoam Sponge) 12-7 Mm Pad 1 FOAM TOP UNSCH PRN for SEE LABEL COMMENTS, #30 BOX Hydrocortisone Inj (Solu-Cortef Inj) 250 Mg Inj 250 MG IV PUSH ONCE PRN for ALLERGIC REACTION, #1 VIAL 0 Refills Give over 30-60 seconds. Insulin Detemir Inj (Levemir Inj) 1,000 unit/ 10 ML Vial 10 UNITS SQ DAILY for Blood Sugar Management, VIAL 0 Refills Do not mix with any other Insulin. Ipratropium-Albuterol Neb (Duoneb) 0.5-2.5 Mg/3 Ml Neb 1 AMPULE INH Q4HR NEB PRN for WHEEZING, #30 ML Lactobacillus Acidophilus (Floranex) 1 Gm Pkt 1 GM PO TID for Diarrhea, #90 PACK Meclizine (Meclizine) 25 Mg Tab 25 MG PO TID PRN for VERTIGO, #30 CAP Megestrol Liq (Megestrol Liq) 40 Mg/Ml Susp 400 MG PO DAILY for increase appetite, #30 CAP Methylcobalamin (B-12) 1,000 Mcg Sub 1000 MCG PO DAILY Midodrine (Midodrine) 5 Mg Tab 10 MG PO TID@07,12,19 for Blood Pressure Management, #120 TAB Ondansetron Odt (Zofran Odt) 4 Mg Tab 4 MG SL Q6HR PRN for Nausea/Vomiting, #30 TAB 0 Refills Sodium Hypochlorite Topical (Dakins Solution Half Strength Topical) 0.2-0.25 % Soln 500 ML TOPICAL DAILY for Infection, #30 ML Thyroid (Stehekin Thyroid) 60 Mg Tab 60 MG PO DAILY for t, #30 TAB Vancomycin Inj (Vancomycin Inj) 500 Mg Inj 500 MG PO Q6HR for Diarrhea, #120 INJECTION Warfarin (Coumadin) 1 Mg Tab Unknown Dose PO DAILY for Prevent Blood Clot, #30 TAB 0 Refills Lillian Loyd MD Jan 05, 2017 10:42
[2017-01-05] MEDS: HYDROmorphone HCL PF 1 MG/ML VIAL IV PUSH PRN ×3 (11:30→21:18)
--- NOTE | 2017-01-05 13:41 | HHI.PR ---
Addendum to Inpatient Note Addendum Reason: Additional Documentation Additional Information Patient unable to get Katty sling for discharge. Discharge was delayed until tomorrow when sling could be obtained. Lillian Loyd MD Jan 05, 2017 13:41
[2017-01-05] MEDS: WARFARIN SOD 1 MG TAB PO SCH (14:23)
--- NOTE | 2017-01-05 14:56 | HHI.NPPN ---
Subjective History of Present Illness This is a 56-year-old female with past medical history of hypertension, history of C. difficile colitis, morbid obesity, multiple bed sores and decubitus ulcers who has been bed-ridden for the last two to three months, history of chronic anemia with recurrent transfusions, history of colostomy because of sacral wound and end-stage renal disease on hemodialysis. Review of Systems General Constitutional: Fatigue Objective Data Data Vital Signs Date Time Temp Pulse Resp B/P (MAP) Pulse Ox O2 Delivery O2 Flow Rate FiO2 01/05/17 13:32 98 01/05/17 08:30 98 Room Air 01/05/17 08:00 91 01/05/17 08:00 97.9 100 18 138/63 (88) 97 01/05/17 08:00 97.9 106 18 150/63 (92) 97 01/05/17 04:00 98.4 105 20 153/65 (94) 99 01/05/17 01:56 Room Air 01/05/17 00:00 98.8 98 20 159/70 (99) 98 01/04/17 21:50 99 21 01/04/17 20:00 107 01/04/17 20:00 98.0 104 20 142/62 (88) 98 01/04/17 16:00 98.2 101 20 146/62 (90) 99 -: 01/05/17 0808 01/04/17 1023 Physical Exam General Appearance: Obese Neck Neck Exam: Neck Supple Pulmonary Resp Exam: Clear Bilaterally, Breath Sounds Equal Gastrointestinal/Abdomen GI Exam: Soft, Distended Extremeties Extremities Exam: Moderate Edema Neurologic Neuro Exam: Alert Assessment/Plan Problem List: (1) End stage kidney disease ICD Codes: N18.6 - End stage renal disease Status: Chronic Plan: hemodialysis done 3 L taken off on Friday goes M,W,F she has wound issues, infection could not be discharged as Katty lift sling needed follows with Jessie Sebastian MD Jan 05, 2017 14:56
[2017-01-06] VITALS: BP 148/63; PULSE 103; RESP 22; TEMP 98; O2SAT 96
[2017-01-06] MEDS: HYDROmorphone HCL PF 1 MG/ML VIAL IV PUSH PRN ×2 (00:55→14:33)
[2017-01-06 04:00] VITALS: BP 141/67; PULSE 63; RESP 20; TEMP 98.2; O2SAT 93
[2017-01-06] MEDS: INSULIN ASPART SUPPLEMENTAL SCALE SQ SCH ×2 (08:00→12:00)
[2017-01-06] MEDS: INSULIN DETEMIR 100 UNITS/ML VIAL SQ SCH (09:00)
[2017-01-06] MEDS: SODIUM HYPOCHLORITE 0.25% 500 ML BTL TOPICAL SCH (09:00)
--- NOTE | 2017-01-06 09:15 | HHI.NPPN ---
Subjective History of Present Illness This is a 56-year-old female with past medical history of hypertension, history of C. difficile colitis, morbid obesity, multiple bed sores and decubitus ulcers who has been bed-ridden for the last two to three months, history of chronic anemia with recurrent transfusions, history of colostomy because of sacral wound and end-stage renal disease on hemodialysis. Additional Remarks Patient seen during HD, no SOB, mild back pain, no bleeding. Review of Systems General Constitutional: Fatigue Cardiovascular Cardiac: Edema, GRIFFIN Objective Data Data Vital Signs Date Time Temp Pulse Resp B/P (MAP) Pulse Ox O2 Delivery O2 Flow Rate FiO2 01/06/17 04:00 98.2 63 20 141/67 (91) 93 01/06/17 00:00 98.0 103 22 148/63 (91) 96 01/05/17 20:30 Room Air 01/05/17 20:00 98.7 104 22 151/62 (91) 98 01/05/17 20:00 107 01/05/17 17:56 98 21 01/05/17 16:00 98.3 93 18 137/63 (87) 97 01/05/17 13:32 98 01/05/17 13:00 16 01/05/17 12:00 97.9 106 18 150/63 (92) 97 -: 01/05/17 0808 01/04/17 1023 Physical Exam General Appearance: No Acute Distress, Comfortable, Obese Eyes Eye Exam: Pupils Equal Throat Throat Exam: Oral Mucosa [place] & Moist Neck Neck Exam: Neck Supple Pulmonary Resp Exam: Clear Bilaterally, Breath Sounds Equal, Decreased Bases Gastrointestinal/Abdomen GI Exam: Soft, Distended (with colostomy) Extremeties Extremities Exam: Moderate Edema Neurologic Neuro Exam: Alert, Awake, Oriented Psychiatric Psych Exam: Appropriate Responses Assessment/Plan Problem List: (1) End stage kidney disease ICD Codes: N18.6 - End stage renal disease Status: Chronic (2) Diabetes mellitus due to underlying condition with chronic kidney disease on chronic dialysis ICD Codes: E08.22 - Diabetes mellitus due to underlying condition with diabetic chronic kidney disease; N18.6 - End stage renal disease; Z99.2 - Dependence on renal dialysis Status: Acute (3) Anxiety ICD Codes: F41.9 - Anxiety disorder, unspecified Status: Acute (4) Depression ICD Codes: F32.9 - Major depressive disorder, single episode, unspecified Status: Chronic (5) Immobility ICD Codes: Z74.09 - Other reduced mobility (6) Anemia in chronic kidney disease (CKD) ICD Codes: N18.9 - Chronic kidney disease, unspecified; D63.1 - Anemia in chronic kidney disease Status: Acute Plan Patient has stable Hgb. Seen by URANIUM PROCESSING SUPERVISOR. On HD n ow, BP is stable. Continue antibiotics, ID consult noted. Possible D/C if get her Katty lift sling. Problem Qualifiers (1) Diabetes mellitus due to underlying condition with chronic kidney disease on chronic dialysis: Qualified Codes: E08.22 - Diabetes mellitus due to underlying condition with diabetic chronic kidney disease; N18.6 - End stage renal disease; Z99.2 - Dependence on renal dialysis Valentin Jimenez MD Jan 06, 2017 09:15
[2017-01-06] MEDS: VANCOMYCIN INJ 1,250 MG in SODIUM CHLOR 0.9% 250 ML INJ 250 ML IV SCH (10:14)
[2017-01-06 12:00] VITALS: BP 124/63; PULSE 107; RESP 20; TEMP 99.2; O2SAT 99
[2017-01-06] MEDS: LACTOBACILLUS ACIDOPHILUS 1 GM PACKET PO SCH ×2 (13:00→13:05)
[2017-01-06] MEDS: THYROID 60 MG TAB PO SCH (13:05)
[2017-01-06] MEDS: ACETAMINOPHEN/HYDROcodone 325 MG/10 MG TAB PO PRN (13:05)
[2017-01-06] MEDS: FLUCONAZOLE 100 MG TAB PO SCH (13:05)
[2017-01-06] MEDS: GABAPENTIN 100 MG CAP PO SCH (13:05)
[2017-01-06] MEDS: SODIUM CHLORIDE 0.9% FLUSH 10 ML FLUSH IV FLUSH SCH (13:06)
[2017-01-06] MEDS: MEROPENEM IV SCH (13:27)
[2017-01-06] MEDS: SODIUM CHLORIDE 0.9% IV SCH (13:27)
[2017-01-06 13:55] VITALS: O2SAT 93
--- NOTE | 2017-01-06 15:48 | PD.WCN.NOT ---
Wound Consult Additional Information: Spoke with patient. Patient states, "They are sending me home today." Inquired about patient's home wound VAC, so that patient may go home with her wound VAC dressing. Patient states, "I did not come in with my home wound VAC and it is not here" Patient has home health care that comes and changes VAC dressings. Will not apply our wound VAC dressing if patient is going home today, explained to patient that the hospital wound VAC cant go home with her. Moist to dry dressings can be applied until home wound VAC can be applied by Home health care nurse. Spoke with charge Piper mcknight, OTILIA Arellano, and call placed to Doctor Dilcia Chavez [facility] Jan 06, 2017 15:48
--- NOTE | 2017-01-06 15:48 | PD.WCN.NOT ---
Wound Consult Additional Information: Spoke with patient. Patient states, "They are sending me home today." Inquired about patient's home wound VAC, so that patient may go home with her wound VAC dressing. Patient states, "I did not come in with my home wound VAC and it is not here" Patient has home health care that comes and changes VAC dressings. Will not apply our wound VAC dressing if patient is going home today, explained to patient that the hospital wound VAC cant go home with her. Moist to dry dressings can be applied until home wound VAC can be applied by Home health care nurse. Spoke with charge Piper mcknight, OTILIA Arellano, and call placed to Doctor Dilcia Chavez [facility] Jan 06, 2017 15:48
--- NOTE | 2017-01-06 17:20 | HHI.PR ---
Addendum to Inpatient Note Addendum Reason: Additional Documentation Additional Information Pt briefly seen today. Upset about being here and waiting for cristhian to come and pick her up. no complaints other than she is unhappy to be here. on exam, very dry skin, HR rrr w no murmurs, lungs are clear, abdomen non tender discharge orders already in place. no new changes. condition: stable. Stretcher arrived as I was leaving the room Vanessa Nathan MD Jan 06, 2017 17:20
== END 2017-01-06 17:27 | disposition home or self-care (01) | DRG 291 ==
LOC: NEPE 13:06 → NEDA 16:22 → OBSVTOIN 17:14 → N04B 20:21
PROVIDERS: ADMIT Hospitalist; ATTEND Hospitalist
PROC: 5A1D70Z Performance of Urinary Filtration, Intermittent, Less than 6 Hours Per Day (ICD-10-PCS; principal; 2017-01-03)
DX: I13.2 Hypertensive heart and chronic kidney disease with heart failure and with stage 5 chronic kidney disease, or end stage renal disease (principal); N18.6 End stage renal disease; L89.159 Pressure ulcer of sacral region, unspecified stage; L89.309 Pressure ulcer of unspecified buttock, unspecified stage; I82.409 Acute embolism and thrombosis of unspecified deep veins of unspecified lower extremity; E87.5 Hyperkalemia; B37.49 Other urogenital candidiasis; Z68.42 Body mass index [BMI] 45.0-49.9, adult; B37.3 Candidiasis of vulva and vagina; E11.22 Type 2 diabetes mellitus with diabetic chronic kidney disease; N93.9 Abnormal uterine and vaginal bleeding, unspecified; E11.42 Type 2 diabetes mellitus with diabetic polyneuropathy; D63.1 Anemia in chronic kidney disease; I50.9 Heart failure, unspecified; E78.5 Hyperlipidemia, unspecified; E03.9 Hypothyroidism, unspecified; E66.01 Morbid (severe) obesity due to excess calories; J44.9 Chronic obstructive pulmonary disease, unspecified; G47.30 Sleep apnea, unspecified; B37.2 Candidiasis of skin and nail; M19.90 Unspecified osteoarthritis, unspecified site; F32.9 Major depressive disorder, single episode, unspecified; F41.9 Anxiety disorder, unspecified; Z74.01 Bed confinement status; Z79.01 Long term (current) use of anticoagulants; Z79.4 Long term (current) use of insulin; Z86.14 Personal history of Methicillin resistant Staphylococcus aureus infection; Z88.1 Allergy status to other antibiotic agents; Z88.5 Allergy status to narcotic agent; Z93.3 Colostomy status; Z95.1 Presence of aortocoronary bypass graft; Z95.5 Presence of coronary angioplasty implant and graft; Z98.84 Bariatric surgery status; Z99.2 Dependence on renal dialysis
CPT/HCPCS: 36430; 76856; 80048; 80053; 81001; 82948; 84100; 85025; 85610; 85730; 86850; 86900; 86901; 86920; 86921; 86922; 87040; 87086; 90935; 96365; 96374; 96375; J1170; J1580; J1644; J2185; J3370; J7050; P9016; Q4081

== ENCOUNTER 2017-04-19 10:31 | Inpatient (IN) | payer MEDICAID, MEDICARE, OTHER ==
[~2017-04-19] VITALS: Ht 160 cm; Wt 107.8 kg
[~2017-04-19 10:31] MED LIST changes: -ASPI-110 PO; +ASPI1TAB57 PO; +CALC0.5C PO; -CALC0.5C6 PO; +COUM1TAB PO; +DIFL100T PO; +[UNRECOGNIZED DRUG - SUPPLY]
[2017-04-19 10:38] VITALS: BP 147/77; PULSE 92; RESP 18; TEMP 98.4; O2SAT 100
[2017-04-19 10:44] VITALS: BP 144/77; PULSE 92; RESP 20; TEMP 98.4; O2SAT 100
[2017-04-19] MEDS ORDERED: ONDANSETRON HCL 4 MG/2 ML VIAL IV PUSH ONE (11:00)
[2017-04-19] MEDS ORDERED: ACETAMINOPHEN/HYDROcodone 325 MG/5 MG TAB PO ONE (11:00)
[2017-04-19 11:21] LABS: AUTOMATED NEUTROPHIL # 5.6 TH/MM3 (1.8-7.7); BASOPHIL # 0.1 TH/MM3 (0-0.2); EOSINOPHIL # 0.1 TH/MM3 (0-0.4); EOSINOPHIL % 0.8 % (0.0-4.0); LYMPH % 15.1 % (9.0-44.0); LYMPHOCYTE # 1.1 TH/MM3 (1.0-4.8); MEAN CORPUSCULAR HEMOGLOBIN 25.7 PG (27.0-34.0); MEAN CORPUSCULAR HGB CONC 32.1 % (32.0-36.0); MONO % 3.7 % (0.0-8.0); MONOCYTE # 0.3 TH/MM3 (0-0.9); NEUT % 79.4 % (16.0-70.0); PLATELET COUNT 457 TH/MM3 (150-450); RED CELL DISTRIBUTION WIDTH 16.7 % (11.6-17.2)
[2017-04-19 11:44] LABS: ALBUMIN 2.9 GM/DL (3.4-5.0); ALT (GPT) LESS THAN 6 U/L (10-53); AST (GOT) 12 U/L (15-37); BICARBONATE 19.3 MEQ/L (21.0-32.0); BLOOD UREA NITROGEN 60 MG/DL (7-18); CALCIUM 8.8 MG/DL (8.5-10.1); CHLORIDE 104 MEQ/L (98-107); CREATININE 5.86 MG/DL (0.50-1.00); GLOMERULAR FILTRATION RATE 7 ML/MIN (>89); GLUCOSE,RANDOM 131 MG/DL (74-106); SODIUM (NA) 132 MEQ/L (136-145)
[2017-04-19 11:46] LABS: ALKALINE PHOSPHATASE 79 U/L (45-117); TOTAL BILIRUBIN ADULT 0.1 MG/DL (0.2-1.0); TOTAL PROTEIN 7.7 GM/DL (6.4-8.2)
[2017-04-19 12:04] LABS: BACTERIA, URINE MOD /hpf; BILIRUBIN, URINE NEG (NEG); BLOOD, URINE LARGE (NEG); GLUCOSE,URINE 150 mg/dL (NEG); KETONE, URINE NEG (NEG); MUCUS URINE FEW /lpf (OCC); NITRITE,URINE NEG (NEG); PH, URINE 6.5 (5.0-8.5); SQUAMOUS EPITHELIAL CELL URINE 2 /hpf (0-5); URINE COLOR YELLOW (YELLW/STRAW); URINE LEUKOCYTE ESTERASE LARGE (NEG); WHITE BLOOD CELL CLUMPS MANY
[2017-04-19] MEDS ORDERED: HYDR-3583 PO (12:24)
[2017-04-19] MEDS ORDERED: SULF1TAB23 PO (12:24)
[2017-04-19] MEDS ORDERED: PARO40TA2 PO (12:24)
[2017-04-19] MEDS ORDERED: QUET1TAB7 PO (12:24)
[2017-04-19] MEDS ORDERED: OXYB5TAB8 PO (12:24)
[2017-04-19] MEDS ORDERED: LEVO150T7 PO (12:24)
[2017-04-19] MEDS ORDERED: COUM4TAB PO (12:24)
[2017-04-19] MEDS ORDERED: TIZA4CAP3 PO (12:24)
[2017-04-19] MEDS ORDERED: JANT4TAB PO (12:24)
[2017-04-19] MEDS ORDERED: GELATIN 12 MM/7 MM FOAM TOPICAL ONE (12:30)
--- NOTE | 2017-04-19 12:34 | PD ---
HPI Chief Complaint: GI Complaint Time Seen by Provider: 10:49 Travel History International Travel<30 days: No Contact w/Intl Traveler<30days: No Traveled to known affect area: No History of Present Illness HPI Is a 56-year-old woman who presents emergency [facility] when he felt poorly for the past several days. She is a history of multiple chronic comorbidities and is very debilitated at baseline. She has end-stage renal disease, morbid obesity, is bedridden. She has multiple chronic wounds that are being tended to by VITAS at home. She has not felt well for the past week. She had nausea and vomiting. She has missed dialysis for a week. She normally gets lifted with a Katty lift into a wheelchair and is probably transported to dialysis. States it hurts her a lot. She has chronic pain and takes hydrocodone. Wound care nurse is managing her multiple wounds, there is no bleeding from the left thigh wound that has been persistent. No fevers. No other complaints. History Past Medical History Narrative Medical ESRD on HD Congestive heart failure Hyperlipidemia Anxiety Diabetes mellitus with peripheral neuropathy Hypothyroidism Chronic wounds DVT on Coumadin History of C. difficile s/p treatment with Dificid Menopausal: Yes : 1 Para: 1 Social History Alcohol Use: No Tobacco Use: No Allergies-Medications (Allergen,Severity, Reaction): Coded Allergies: clarithromycin (Verified Allergy, Severe, swelling of face, 01/03/17) ferrous fumarate (Verified Adverse Reaction, Severe, Constipation, ) ferrous sulfate (Verified Adverse Reaction, Severe, Constipation, 01/03/17 ) ferumoxytol (Verified Adverse Reaction, Severe, Constipation, 01/03/17) iron (Verified Adverse Reaction, Severe, Constipation, 01/03/17) morphine (Verified Adverse Reaction, Severe, 01/03/17) renal insufficiency. multivitamin infusion, adult no.4 with vitamin K (Verified Adverse Reaction, Severe, Constipation, 01/03/17) multivitamin with iron,other minerals (Verified Adverse Reaction, Severe, Constipation, 01/03/17) *MDRO Multi-Drug Resistant Organism (Verified Adverse Reaction, Unknown, VRE, MRSA, MDR-Pseudomonas, 09/02/16) VRE (abdominal wound) - 07/09/16 MDR-Pseudomonas (abdominal wound) - 07/09/16 MRSA (abdomen wound) - 08/28/16 Reported Meds & Prescriptions Reported Meds & Active Scripts Active Diflucan (Fluconazole) 100 Mg Tab 50 Mg PO DAILY [Katty Lugoing - Papo] Unit Reported Quetiapine (Quetiapine Fumarate) 25 Mg Tab 25 Mg PO TID Jantoven (Warfarin) 4 Mg Tab 4 Mg PO DAILY Ditropan (Oxybutynin Chloride) 5 Mg Tab 5 Mg PO Q12HR Tizanidine (Tizanidine HCl) 4 Mg Cap 4 Mg PO TID Hydrocodone-Acetaminophen 10-325 mg Tab 1 Tab PO Q6H PRN Sulfamethoxazole-Trimethoprim 800-160 Mg Tab 1 Tab PO BID Paroxetine (Paroxetine HCl) 40 Mg Tab 40 Mg PO DAILY Levothyroxine (Levothyroxine Sodium) 150 Mcg Tab 150 Mcg PO DAILY Coumadin (Warfarin) 4 Mg Tab 4 Mg PO DAILY Zofran Odt (Ondansetron Odt) 4 Mg Tab 4 Mg SL Q6HR PRN Atorvastatin (Atorvastatin Calcium) 40 Mg Tab 40 Mg PO HS Xanax (Alprazolam) 0.25 Mg Tab 0.25 Mg PO Q6H PRN Gabapentin 100 Mg Cap 100 Mg PO BID Review of Systems Except as stated in HPI: all other systems reviewed are Neg Physical Exam Narrative GENERAL: Obese bedridden chronically ill adult woman, no acute distress. SKIN: Focused skin assessment warm/dry. There is extensive obesity, redundant skin, multiple areas of chronic wounds including on the pannus of the stomach, the lateral thigh on the left, thigh on the right, and the sacrum. HEAD: Atraumatic. Normocephalic. EYES: Pupils equal and round. No scleral icterus. No injection or drainage. ENT: No nasal bleeding or discharge. Mucous membranes pink and moist. NECK: Trachea midline. No JVD. CARDIOVASCULAR: Regular rate and rhythm. No murmur appreciated. RESPIRATORY: No accessory muscle use. Clear to auscultation. Breath sounds equal bilaterally. GASTROINTESTINAL: Abdomen soft, non-tender, nondistended. Hepatic and splenic margins not palpable. MUSCULOSKELETAL: No obvious deformities. Some chronic edema in the lower extremities. Extensive chronic skin changes in both lower extremities. NEUROLOGICAL: Awake and alert. No obvious cranial nerve deficits. Motor grossly within normal limits. Normal speech. PSYCHIATRIC: Appropriate mood and affect; insight and judgment normal. Data Data Last Documented VS Vital Signs Date Time Temp Pulse Resp B/P (MAP) Pulse Ox O2 Delivery O2 Flow Rate FiO2 04/19/17 11:31 18 04/19/17 10:44 98.4 92 144/77 (99) 100 04/19/17 10:38 Room Air Orders Orders Acetamin-Hydrocod 325-5 Mg (Roland 5-325 (04/19/17 11:00) Complete Blood Count With Diff (04/19/17 10:49) Comprehensive Metabolic Panel (04/19/17 10:49) Iv Access Insert/Monitor (04/19/17 10:49) Ondansetron Inj (Zofran Inj) (04/19/17 11:00) Case Management Consult (04/19/17 ) Act Partial Throm Time (Ptt) (04/19/17 10:54) Prothrombin Time / Inr (Pt) (04/19/17 10:54) Urinary Catheter Insert/Apply (04/19/17 10:54) Urinalysis - C+S If Indicated (04/19/17 10:54) Urine Culture (04/19/17 11:20) Gelatin 12 Mm/7 Mm Top (Gelfoam 12 Mm/7 (04/19/17 12:30) Sodium Polysty Sulfate Liq (Kayexalate L (04/19/17 12:45) Calcium Gluconate Inj (Calcium Gluconate (04/19/17 12:45) Sodium Bicarbonate 8.4% Inj (Sodium Bica (04/19/17 12:45) Place In Observation (04/19/17 ) Code Status (04/19/17 13:06) Vital Signs (Adult) Q4H (04/19/17 13:06) Activity Oob Ad Yanet (04/19/17 13:06) Bedside Glucose KAROLINA.CSUGAR (04/19/17 13:06) Storehouse Clerk / Telemetry .CONTINUOUS (04/19/17 13:06) Intake + Output KAROLINA.QSHIFT (04/19/17 13:06) Notify Dr: Other (04/19/17 13:06) Diet 1800 Ada Cons Carb (04/19/17 Lunch) Sodium Chloride 0.9% Flush (Ns Flush) (04/19/17 13:15) Sodium Chloride 0.9% Flush (Ns Flush) (04/19/17 21:00) Acetaminophen (Tylenol) (04/19/17 13:15) Ondansetron Inj (Zofran Inj) (04/19/17 13:15) Basic Metabolic Panel (Bmp) (04/20/17 06:00) Complete Blood Count With Diff (04/20/17 06:00) Creatine Kinase (Cpk) (04/19/17 13:06) Creatine Kinase (Cpk) (04/19/17 19:06) Troponin I (04/19/17 13:06) Troponin I (04/19/17 19:06) Case Management Consult (04/19/17 13:06) Heparin Inj (Heparin Inj) (04/19/17 13:15) Naloxone Inj (Narcan Inj) (04/19/17 13:15) Sennosides (Senokot) (04/19/17 13:15) Bisacodyl Supp (Dulcolax Supp) (04/19/17 13:15) Lactulose Liq (Lactulose Liq) (04/19/17 13:15) Consult Nephrology (04/19/17 ) Consult Wound / Ostomy Nurse (04/19/17 ) Alprazolam (Xanax) (04/19/17 13:15) Atorvastatin (Lipitor) (04/19/17 21:00) Fluconazole (Diflucan) (04/20/17 09:00) Gabapentin (Neurontin) (04/19/17 21:00) Acetamin-Hydrocod 325-10 Mg (Roland 10-32 (04/19/17 13:15) Levothyroxine (Synthroid) (04/20/17 06:00) Oxybutynin (Ditropan) (04/19/17 21:00) Paroxetine (Paxil) (04/20/17 09:00) Quetiapine (Seroquel) (04/19/17 18:00) Tizanidine Hcl (Zanaflex) (04/19/17 18:00) Warfarin (Coumadin) (04/20/17 09:00) Admit Order (Ed Use Only) (04/19/17 ) Ceftriaxone Inj (Rocephin Inj) (04/19/17 13:30) Labs Laboratory Tests Test 04/19/17 11:04 04/19/17 11:20 04/19/17 11:44 White Blood Count 7.0 TH/MM3 Red Blood Count 3.50 MIL/MM3 Hemoglobin 9.0 GM/DL Hematocrit 28.0 % Mean Corpuscular Volume 80.0 FL Mean Corpuscular Hemoglobin 25.7 PG Mean Corpuscular Hemoglobin Concent 32.1 % Red Cell Distribution Width 16.7 % Platelet Count 457 TH/MM3 Mean Platelet Volume 7.0 FL Neutrophils (%) (Auto) 79.4 % Lymphocytes (%) (Auto) 15.1 % Monocytes (%) (Auto) 3.7 % Eosinophils (%) (Auto) 0.8 % Basophils (%) (Auto) 1.0 % Neutrophils # (Auto) 5.6 TH/MM3 Lymphocytes # (Auto) 1.1 TH/MM3 Monocytes # (Auto) 0.3 TH/MM3 Eosinophils # (Auto) 0.1 TH/MM3 Basophils # (Auto) 0.1 TH/MM3 CBC Comment DIFF FINAL Differential Comment Blood Urea Nitrogen 60 MG/DL Creatinine 5.86 MG/DL Random Glucose 131 MG/DL Total Protein 7.7 GM/DL Albumin 2.9 GM/DL Calcium Level 8.8 MG/DL Alkaline Phosphatase 79 U/L Aspartate Amino Transf (AST/SGOT) 12 U/L Alanine Aminotransferase (ALT/SGPT) LESS THAN 6 U/L Total Bilirubin 0.1 MG/DL Sodium Level 132 MEQ/L Potassium Level 6.3 MEQ/L Chloride Level 104 MEQ/L Carbon Dioxide Level 19.3 MEQ/L Anion Gap 9 MEQ/L Estimat Glomerular Filtration Rate 7 ML/MIN Urine Color YELLOW Urine Turbidity CLOUDY Urine pH 6.5 Urine Specific Martin 1.018 Urine Protein 100 mg/dL Urine Glucose (UA) 150 mg/dL Urine Ketones NEG mg/dL Urine Occult Blood LARGE Urine Nitrite NEG Urine Bilirubin NEG Urine Urobilinogen LESS THAN 2.0 MG/DL Urine Leukocyte Esterase LARGE Urine RBC /hpf Urine WBC /hpf Urine WBC Clumps MANY Urine Squamous Epithelial Cells 2 /hpf Urine Bacteria MOD /hpf Urine Mucus FEW /lpf Microscopic Urinalysis Comment CULTURE INDICATED Prothrombin Time 72.2 SEC Prothromb Time International Ratio 7.2 RATIO Activated Partial Thromboplast Time 90.6 SEC [facility] Medical Decision Making Medical Screen Exam Complete: Yes Emergency Medical Condition: Yes Interpretation(s) LABS: CBC is remarkable for mild anemia. Platelet count 457. CMP markable elevated BUN and creatinine, potassium 6.3, otherwise unremarkable. Urine pyuria, hematuria. Coags u pending. Differential Diagnosis Renal failure, gastroenteritis, chronic wounds, UTI, infection, other Narrative Course Medical decision making INITIAL: This is a 56-year-old woman with multiple chronic comorbidities who presents with nausea vomiting, weakness, missing dialysis, and chronic wounds. She appears chronically debilitated. Labs show her potassium is elevated with some acidosis. Likely observation for treatment for UTI, dialysis. FINAL: Patient with nausea vomiting, no dialysis with renal failure, hyperkalemia, will admit observation for dialysis, treatment of nausea vomiting. Chronic wound, unchanged, continue outpatient wound care. Possible UTI. Given a dose of ceftriaxone here. Diagnosis Primary Impression: Nausea & vomiting Additional Impressions: Hyperkalemia End stage renal disease Admitting Information Admitting Physician Requests: Observation Keith John MD Apr 19, 2017 12:34
[2017-04-19 12:42] LABS: PROTHROMBIN TIME - PATIENT 72.2 SEC (9.8-11.6)
[2017-04-19] MEDS ORDERED: SODIUM POLYSTYRENE SULFONATE SUSP 15 GM/60 ML CUP PO ONE (12:45)
[2017-04-19] MEDS ORDERED: SODIUM BICARBONATE 8.4% INJ 50 MEQ/50 ML SYR IV PUSH ONE (12:45)
[2017-04-19] MEDS ORDERED: CALCIUM GLUCONATE 10% 1 GM/10 ML VIAL IV PUSH ONE (12:45)
[2017-04-19 12:47] LABS: INTERNATIONAL NORMALIZED RATIO 7.2 RATIO
[2017-04-19] MEDS ORDERED: PHYTONADIONE 5 MG TAB PO ONE (13:00)
[2017-04-19] MEDS ORDERED: BISACODYL 10 MG SUPP RECTAL PRN (13:15)
[2017-04-19] MEDS ORDERED: ACETAMINOPHEN 325 MG TAB PO PRN ×2 (13:15→14:15)
[2017-04-19] MEDS ORDERED: HEPARIN SODIUM - SQ 10,000 UNITS/ML VIAL SQ SCH (13:15)
[2017-04-19] MEDS ORDERED: LACTULOSE SYRUP 20 GM/30 ML CUP PO PRN (13:15)
[2017-04-19] MEDS ORDERED: NALOXONE HCL 0.4 MG/ML AMP IV PUSH PRN (13:15)
[2017-04-19] MEDS ORDERED: ONDANSETRON HCL 4 MG/2 ML VIAL IVP PRN (13:15)
[2017-04-19] MEDS ORDERED: SODIUM CHLORIDE 0.9% FLUSH 10 ML FLUSH IV FLUSH PRN ×2 (13:15→14:15)
[2017-04-19] MEDS ORDERED: SENNOSIDES 8.6 MG TAB PO PRN (13:15)
--- NOTE | 2017-04-19 13:22 | HHI.HP ---
HPI Service [facility] Primary Care Physician Aline Velarde MD Admission Diagnosis Diagnoses: Chief Complaint: Nausea, vomit, weakness and chronic wounds. Travel History International Travel<30 Days: No Contact w/Intl Traveler <30 Da: No Traveled to Known Affected Are: No History of Present Illness ER NOTES; This is a pleasant 56 y/o Female who came to ER with nausea, vomit, skipped hemodialysis and chronic wounds, She is a history of multiple chronic comorbidities and is very debilitated at baseline. She has end-stage renal disease, morbid obesity, is bedridden. She has multiple chronic wounds that are being tended to by VITAS at home. She has not felt well for the past week. She had nausea and vomiting. She has missed dialysis for a week. She normally gets lifted with a Katty lift into a wheelchair and is probably transported to dialysis. States it hurts her a lot. She has chronic pain and takes hydrocodone. Wound care nurse is managing her multiple wounds, there is no bleeding from the left thigh wound that has been persistent. No fevers. No other complaints ESRD on HD, HLD, CHF, anxiety, DM, hypothyroidism, kidney, chronic wounds, chronic indwelling Ruiz cath, multiple admissions to the Hospital, known to Doctor Barbara nephrology specialist. has Ostomy. stable seen in her bedroom, the patient states she is been having some bleeding from her left abdominal wall ulcer, she states is been having nausea, vomit weakness and for this reason did not go to Dialysis. Review of Systems Constitutional: DENIES: Fever, Chills, Change in appetite Endocrine: DENIES: Heat/cold intolerance Eyes: DENIES: Blurred vision, Eye pain Gastrointestinal: COMPLAINS OF: Nausea, Vomiting Except as stated in HPI: all other systems reviewed are Neg Past Family Social History Past Medical History ESRD on HD Congestive heart failure Hyperlipidemia Anxiety Diabetes mellitus with peripheral neuropathy Hypothyroidism Chronic wounds DVT on Coumadin History of C. difficile s/p treatment with Dificid Depression Past Surgical History Left upper extremity AV fistula placement Dialysis catheter placement LAP-BAND surgery Cholecystectomy Tonsillectomy Cardiac stent placement EGD/colonoscopy Abdominal wall wound surgery Reported Medications Reported Meds & Active Scripts Active Diflucan (Fluconazole) 100 Mg Tab 50 Mg PO DAILY [Katty Sling - Large] Unit Reported Quetiapine (Quetiapine Fumarate) 25 Mg Tab 25 Mg PO TID Jantoven (Warfarin) 4 Mg Tab 4 Mg PO DAILY Ditropan (Oxybutynin Chloride) 5 Mg Tab 5 Mg PO Q12HR Tizanidine (Tizanidine HCl) 4 Mg Cap 4 Mg PO TID Hydrocodone-Acetaminophen 10-325 mg Tab 1 Tab PO Q6H PRN Sulfamethoxazole-Trimethoprim 800-160 Mg Tab 1 Tab PO BID Paroxetine (Paroxetine HCl) 40 Mg Tab 40 Mg PO DAILY Levothyroxine (Levothyroxine Sodium) 150 Mcg Tab 150 Mcg PO DAILY Coumadin (Warfarin) 4 Mg Tab 4 Mg PO DAILY Zofran Odt (Ondansetron Odt) 4 Mg Tab 4 Mg SL Q6HR PRN Atorvastatin (Atorvastatin Calcium) 40 Mg Tab 40 Mg PO HS Xanax (Alprazolam) 0.25 Mg Tab 0.25 Mg PO Q6H PRN Gabapentin 100 Mg Cap 100 Mg PO BID Allergies: Coded Allergies: clarithromycin (Verified Allergy, Severe, swelling of face, 01/03/17) ferrous fumarate (Verified Adverse Reaction, Severe, Constipation, ) ferrous sulfate (Verified Adverse Reaction, Severe, Constipation, 01/03/17 ) ferumoxytol (Verified Adverse Reaction, Severe, Constipation, 01/03/17) iron (Verified Adverse Reaction, Severe, Constipation, 01/03/17) morphine (Verified Adverse Reaction, Severe, 01/03/17) renal insufficiency. multivitamin infusion, adult no.4 with vitamin K (Verified Adverse Reaction, Severe, Constipation, 01/03/17) multivitamin with iron,other minerals (Verified Adverse Reaction, Severe, Constipation, 01/03/17) *MDRO Multi-Drug Resistant Organism (Verified Adverse Reaction, Unknown, VRE, MRSA, MDR-Pseudomonas, 09/02/16) VRE (abdominal wound) - 07/09/16 MDR-Pseudomonas (abdominal wound) - 07/09/16 MRSA (abdomen wound) - 08/28/16 Family History Asked and denied. Social History Jefry any toxic habits. Physical Exam Vital Signs Vital Signs Date Time Temp Pulse Resp B/P (MAP) Pulse Ox O2 Delivery O2 Flow Rate FiO2 04/19/17 11:31 18 04/19/17 10:44 98.4 92 20 144/77 (99) 100 04/19/17 10:38 98.4 92 18 147/77 (100) 100 Room Air Physical Exam GENERAL: Morbid obese patient in no acute distress. SKIN: Focused skin assessment warm/dry. There is extensive obesity, redundant skin, multiple areas of chronic wounds including on the pannus of the stomach, the lateral thigh on the left, thigh on the right, and the sacrum. HEAD: Atraumatic. Normocephalic. EYES: Pupils equal and round. No scleral icterus. No injection or drainage. ENT: No nasal bleeding or discharge. Mucous membranes pink and moist. NECK: Trachea midline. No JVD. CARDIOVASCULAR: Regular rate and rhythm. No murmur appreciated. RESPIRATORY: No accessory muscle use. Clear to auscultation. Breath sounds equal bilaterally. GASTROINTESTINAL: Abdomen soft, non-tender, nondistended. Ostomy in place. Multiple dressed wounds. MUSCULOSKELETAL: No obvious deformities. Some chronic edema in the lower extremities. Extensive chronic skin changes in both lower extremities. NEUROLOGICAL: Awake and alert. No obvious cranial nerve deficits. PSYCHIATRIC: Appropriate mood and affect. Laboratory Laboratory Tests Test 04/19/17 11:04 04/19/17 11:20 04/19/17 11:44 White Blood Count 7.0 Red Blood Count 3.50 Hemoglobin 9.0 Hematocrit 28.0 Mean Corpuscular Volume 80.0 Mean Corpuscular Hemoglobin 25.7 Mean Corpuscular Hemoglobin Concent 32.1 Red Cell Distribution Width 16.7 Platelet Count 457 Mean Platelet Volume 7.0 Neutrophils (%) (Auto) 79.4 Lymphocytes (%) (Auto) 15.1 Monocytes (%) (Auto) 3.7 Eosinophils (%) (Auto) 0.8 Basophils (%) (Auto) 1.0 Neutrophils # (Auto) 5.6 Lymphocytes # (Auto) 1.1 Monocytes # (Auto) 0.3 Eosinophils # (Auto) 0.1 Basophils # (Auto) 0.1 CBC Comment DIFF FINAL Differential Comment Blood Urea Nitrogen 60 Creatinine 5.86 Random Glucose 131 Total Protein 7.7 Albumin 2.9 Calcium Level 8.8 Alkaline Phosphatase 79 Aspartate Amino Transf (AST/SGOT) 12 Alanine Aminotransferase (ALT/SGPT) LESS THAN 6 Total Bilirubin 0.1 Sodium Level 132 Potassium Level 6.3 Chloride Level 104 Carbon Dioxide Level 19.3 Anion Gap 9 Estimat Glomerular Filtration Rate 7 Urine Color YELLOW Urine Turbidity CLOUDY Urine pH 6.5 Urine Specific [place] 1.018 Urine Protein 100 Urine Glucose (UA) 150 Urine Ketones NEG Urine Occult Blood LARGE Urine Nitrite NEG Urine Bilirubin NEG Urine Urobilinogen LESS THAN 2.0 Urine Leukocyte Esterase LARGE Urine RBC Urine WBC Urine WBC Clumps MANY Urine Squamous Epithelial Cells 2 Urine Bacteria MOD Urine Mucus FEW Microscopic Urinalysis Comment CULTURE INDICATED Prothrombin Time 72.2 Prothromb Time International Ratio 7.2 Activated Partial Thromboplast Time 90.6 Date/Time Source Procedure Growth Status 04/19/17 11:20 Urine Clean Catch Urine Culture Pending Received Result Diagram: 04/19/17 1104 04/19/17 1104 Imaging No new imaging studies. Caprini VTE Risk Assessment Caprini VTE Risk Assessment: Mod/High Risk (score >= 2) Caprini Risk Assessment Model Point Value = 1 Point Value = 2 Point Value = 3 Point Value = 5 Age 41-60 Minor surgery BMI > 25 kg/m2 Swollen legs Varicose veins or History of unexplained or recurrent spontaneous Oral contraceptives or hormone replacement Sepsis (< 1 month) Serious lung disease, including pneumonia (< 1 month) Abnormal pulmonary function Acute myocardial infarction Congestive heart failure (< 1 month) History of inflammatory bowel disease Medical patient at bed rest Age 61-74 Arthroscopic surgery Major open surgery (> 45 min) Laparoscopic surgery (> 45 min) Malignancy Confined to bed (> 72 hours) Immobilizing plaster cast Central venous access Age >= 75 History of VTE Family history of VTE Factor V Leiden Prothrombin [id number] Lupus anticoagulant Anticardiolipin antibodies Elevated serum homocysteine Heparin-induced thrombocytopenia Other congenital or acquired thrombophilia Stroke (< 1 month) Elective arthroplasty Hip, pelvis, or leg fracture Acute spinal cord injury (< 1 month) Prophylaxis Regimen Total Risk Factor Score Risk Level Prophylaxis Regimen 0-1 Low Early ambulation 2 Moderate Order ONE of the following: *Sequential Compression Device (SCD) *Heparin 5000 units SQ BID 3-4 Higher Order ONE of the following medications: *Heparin 5000 units SQ TID *Enoxaparin/Lovenox 40 mg SQ daily (WT < 150 kg, CrCl > 30 mL/min) *Enoxaparin/Lovenox 30 mg SQ daily (WT < 150 kg, CrCl > 10-29 mL/min) *Enoxaparin/Lovenox 30 mg SQ BID (WT < 150 kg, CrCl > 30 mL/min) AND/OR *Sequential Compression Device (SCD) 5 or more Highest Order ONE of the following medications: *Heparin 5000 units SQ TID (Preferred with Epidurals) *Enoxaparin/Lovenox 40 mg SQ daily (WT < 150 kg, CrCl > 30 mL/min) *Enoxaparin/Lovenox 30 mg SQ daily (WT < 150 kg, CrCl > 10-29 mL/min) *Enoxaparin/Lovenox 30 mg SQ BID (WT < 150 kg, CrCl > 30 mL/min) AND *Sequential Compression Device (SCD) Assessment and Plan Assessment and Plan This is a chronically ill 56-year-old female with past medical history of ESRD on HD, HLD, CHF, anxiety, DM, hypothyroidism, kidney, chronic wounds, chronic indwelling Ruiz who came to ER with nausea, vomit and missed hemodialysis for one week, also chronic wounds worsening. Coagulopathy secondary to Coumadin intake INR 7.2 on hold Coumadin follow INR no signs of bleeding. given Vitamin K 5 mg by ER specialist ESRD on HD she missed HD Consulted her Primary Nephrology specialist doctor Barbara, Hyperkalemia, Seen by Nephrology will go for HD this Afternoon Chronic wounds: Afebrile with no leukocytosis. asked for Wound care Nurse. UTI on Ceftriaxone. expected to have Leukocyte esterase and bacteriuria the patient has indwelling Ruiz cath Diabetes mellitus: -Not using basal insulin anymore, uses sliding scale. -Monitor Accu-Cheks and cover with SSI as needed -Continue gabapentin for neuropathy COPD: Not currently in exacerbation -Continue nebs as needed Hypothyroidism: Chronic. -Continue Hormonal replacement Morbid obesity strongly recommended diet and exercise as outpatient. Non compliance issues. market manager consult DVT prophylaxis: at this Time Supra therapeutic INR. 7.2 on hold Coumadin. Code Status Full Code Discussed Condition With patient, her Son and ER physician Keith Ruiz MD Physician Certification 2 Midnight Certification Type: Admission for Inpatient Services Order for Inpatient Services The services are ordered in accordance with Medicare regulations or non- Medicare payer requirements, as applicable. In the case of services not specified as inpatient-only, they are appropriately provided as inpatient services in accordance with the 2-midnight benchmark. Estimated LOS (days): 1 days is the estimated time the patient will need to remain in the hospital, assuming treatment plan goals are met and no additional complications. Post-Hospital Plan: Home Ken Franks MD Apr 19, 2017 13:22
[2017-04-19] MEDS ORDERED: cefTRIAXone INJ 1,000 MG in SODIUM CHLORIDE 0.9% INJ 100 ML IV ONE (13:30)
[2017-04-19] MEDS ORDERED: PHYTONADIONE 5 MG/SWFI 5 ML ORAL SYR PO ONE (13:45)
[2017-04-19] MEDS ORDERED: PILL SPLITTER OTHER PRN (13:45)
[2017-04-19] MEDS ORDERED: SODIUM CHLOR 0.9% 1000 ML INJ 1,000 ML IV PRN (14:14)
[2017-04-19] MEDS ORDERED: SODIUM CHLOR 0.9% 1000 ML INJ 1,000 ML OTHER PRN ×2 (14:14)
[2017-04-19] MEDS ORDERED: diphenhydrAMINE HCL 25 MG CAP PO PRN (14:15)
[2017-04-19] MEDS ORDERED: GELATIN 12 MM/7 MM FOAM TOP PRN (14:15)
[2017-04-19] MEDS ORDERED: NITROGLYCERIN 0.4 MG SL 25 TABS/BTL SL PRN (14:15)
[2017-04-19] MEDS ORDERED: HEPARIN SODIUM - IV 10,000 UNITS/10 ML VIAL IV FLUSH PRN (14:15)
[2017-04-19] MEDS ORDERED: cloNIDine HCL 0.1 MG TAB PO PRN (14:15)
[2017-04-19] MEDS ORDERED: MANNITOL 12.5 GM/50 ML VIAL IV PRN (14:15)
[2017-04-19] MEDS: ALBUMIN 25% INJ 100 ML IV PRN (14:48)
[2017-04-19] MEDS: ONDANSETRON HCL 4 MG/2 ML VIAL IV PUSH PRN (14:56)
--- NOTE | 2017-04-19 15:36 | MB ---
cc: ANJUM MIKE MD DATE OF CONSULTATION: 04/19/2017. REASON FOR CONSULTATION: End-stage renal disease on hemodialysis and hyperkalemia. HISTORY OF PRESENT ILLNESS: This is a 56-year-old female with past medical history of diabetes mellitus, ischemic heart disease, hypertension, hyperlipidemia, anxiety disorder, hypothyroidism, morbid obesity, history of multiple abdomen and thigh wounds who came to the hospital with complaint of nausea, vomiting and generalized weakness. The patient has history of end-stage renal disease on hemodialysis Friday, and Friday but she has been missing her dialysis. The last time she was dialyzed was about a week ago. The patient has multiple wounds and she has been getting wound care at home. There is no history of fever but she has a Ruiz catheter and she has a colostomy. The patient denies any history of diarrhea but she has nausea and vomiting. She has been missing dialysis because of the pain that she gets and she is lifted by the [employer] for transportation. I suggested the possibility of home hemodialysis but the son does not think that he can help her with this. PAST MEDICAL HISTORY: 1. Diabetes mellitus. 2. Hypertension. 3. Hypothyroidism. 4. Anxiety disorder. 5. History of C. difficile colitis. 6. Chronic anemia. 7. End-stage renal disease on hemodialysis. PAST SURGICAL HISTORY: 1. Left arm AV fistula surgery. 2. Cholecystectomy. 3. Colectomy with colostomy. 4. History of Lap-band surgery. 5. Multiple wound debridements surgeries. 6. Endoscopies. REVIEW OF SYSTEMS: There is no history of fever. The patient has generalized weakness. She has pain in her wounds. She has nausea and vomiting. There is no specific abdominal pain. She does not have significant diarrhea but off and on has loose stool in the colostomy. The colostomy was done mainly to protect her wound. She has a Ruiz catheter. SOCIAL HISTORY: The patient is single and lives with her son. There is no history of smoking. FAMILY HISTORY: Noncontributory. ALLERGIES: SHE HAS MULTIPLE ALLERGIES INCLUDIN. CLARITHROMYCIN. 2. FERROUS FUMARATE. 3. FERROUS SULFATE. 4. IRON. 5. MORPHINE. 6. MULTIVITAMINS. MEDICATIONS: Currently she is on the following medications: 1. Neurontin 100 milligrams twice a day. 2. Diflucan 50 milligrams once a day. 3. Paxil 40 milligrams daily. 4. Synthroid 150 micrograms daily. 5. Lipitor 40 milligrams at bedtime. 6. Ditropan 5 milligrams q. 12 hours. 7. NovoLog aspart sliding scale. 8. Zanaflex 4 milligrams three times a day. 9. Seroquel 25 milligrams three times a day. 10. Zofran as needed. PHYSICAL EXAMINATION: GENERAL: On examination, the patient is awake and alert and she is not in acute distress. VITAL SIGNS: Her last blood pressure was 144/77, temperature is 98.4. Oxygen saturation on room air is 100%. HEAD, EYES, EARS, NOSE, THROAT: The pupils are mid-constricted. Nonicteric sclerae. Conjunctivae are normal. NECK: The neck is supple. JVD is not elevated. LUNGS: The patient has bilateral decreased air entry with occasional wheezing. HEART: S1 and S2 regular rhythm. ABDOMEN: Abdomen is distended, soft and lax. There are multiple wounds and a colostomy bag in place. She has a wound in the back around the upper thigh area. EXTREMITIES: She has lymphedema with some skin rash and discoloration in the lower legs, which is chronic. INVESTIGATIONS: White blood cell count is 7.0, hemoglobin is 9.0, platelet count of 457. Sodium 132, potassium 6.3, chloride 104, bicarbonate 19.3, BUN 60, creatinine 5.8, glucose 131, AST is slightly elevated, ALT is less than 6. Albumin is 2.9. INR is 7.2. Urinalysis showing cloudy urine with protein of 100 and many WBCs. Urine culture is pending. IMAGING STUDIES: There is no recent imaging study done. ASSESSMENT AND PLAN: 1. End-stage renal disease on hemodialysis. 2. Severe hyperkalemia. 3. Urinary tract infection. 4. Multiple wounds. 5. Diabetes mellitus. 6. Anemia. 7. Hypothyroidism. The patient has been missing the dialysis and the last time she was dialyzed was about a week ago. I discussed with the patient and the family about the importance of continuing the dialysis regularly. Now she has hyperkalemia. I already arranged for dialysis and she will have hemodialysis. Follow her urine culture. Continue the antibiotic. The INR is also high, and this needs to be followed up. Thank you for the consultation, and I will follow the patient while she is in the hospital. MD NILSON Faulkner/AUDELIA /2:06 PM /3:21 PM
[2017-04-19 16:26] LABS: TROPONIN I LESS THAN 0.02 NG/ML (0.02-0.05)
[2017-04-19 19:30] VITALS: BP 130/60; PULSE 62; RESP 19; TEMP 98.5; O2SAT 100
[2017-04-19] MEDS: GABAPENTIN 100 MG CAP PO SCH (20:43)
[2017-04-19] MEDS: OXYBUTYNIN CHLORIDE 5 MG TAB PO SCH (20:43)
[2017-04-19] MEDS: QUEtiapine FUMARATE 25 MG TAB PO SCH (20:43)
[2017-04-19] MEDS: ACETAMINOPHEN/HYDROcodone 325 MG/10 MG TAB PO PRN (20:44)
[2017-04-19] MEDS: ATORVASTATIN 40 MG TAB PO SCH (20:44)
[2017-04-19] MEDS: INSULIN ASPART SUPPLEMENTAL SCALE SQ SCH (20:49)
[2017-04-19] MEDS: SODIUM CHLORIDE 0.9% FLUSH 10 ML FLUSH IV FLUSH SCH (20:49)
[2017-04-19 22:51] LABS: TROPONIN I LESS THAN 0.02 NG/ML (0.02-0.05)
[2017-04-20] VITALS (9 sets, daily range): BP systolic 104–156; BP diastolic 49–71; PULSE 52–80; RESP 19–20; TEMP 98.1–99.1; O2SAT 99–100
[2017-04-20] MEDS: LEVOTHYROXINE SODIUM 150 MCG TAB PO SCH (05:54)
[2017-04-20] MEDS: ACETAMINOPHEN/HYDROcodone 325 MG/10 MG TAB PO PRN ×3 (05:54→18:40)
[2017-04-20] MEDS: INSULIN ASPART SUPPLEMENTAL SCALE SQ SCH ×4 (08:00→20:47)
[2017-04-20] MEDS ORDERED: WARFARIN SOD 4 MG TAB PO SCH (09:00)
[2017-04-20 09:16] LABS: AUTOMATED NEUTROPHIL # 4.1 TH/MM3 (1.8-7.7); BASOPHIL # 0.1 TH/MM3 (0-0.2); BASOPHIL % 0.9 % (0.0-2.0); EOSINOPHIL # 0.1 TH/MM3 (0-0.4); EOSINOPHIL % 1.7 % (0.0-4.0); HEMATOCRIT 25.9 % (35.0-46.0); HEMOGLOBIN 8.3 GM/DL (11.6-15.3); LYMPH % 25.4 % (9.0-44.0); LYMPHOCYTE # 1.6 TH/MM3 (1.0-4.8); MEAN CELL VOLUME 80.3 FL (80.0-100.0); MEAN CORPUSCULAR HEMOGLOBIN 25.7 PG (27.0-34.0); MEAN PLATELET VOLUME 7.1 FL (7.0-11.0); MONO % 7.9 % (0.0-8.0); MONOCYTE # 0.5 TH/MM3 (0-0.9); NEUT % 64.1 % (16.0-70.0); PLATELET COUNT 337 TH/MM3 (150-450); RED BLOOD COUNT 3.22 MIL/MM3 (4.00-5.30); RED CELL DISTRIBUTION WIDTH 16.4 % (11.6-17.2); WHITE BLOOD COUNT 6.4 TH/MM3 (4.0-11.0)
[2017-04-20 09:18] LABS: INTERNATIONAL NORMALIZED RATIO 1.9 RATIO; PROTHROMBIN TIME - PATIENT 19.6 SEC (9.8-11.6)
[2017-04-20 09:36] LABS: BICARBONATE 26.8 MEQ/L (21.0-32.0); CALCIUM 8.3 MG/DL (8.5-10.1); CREATININE 4.17 MG/DL (0.50-1.00)
[2017-04-20] MEDS: OXYBUTYNIN CHLORIDE 5 MG TAB PO SCH ×2 (10:12→20:54)
[2017-04-20] MEDS: PARoxetine HCL 20 MG TAB PO SCH (10:13)
[2017-04-20] MEDS: QUEtiapine FUMARATE 25 MG TAB PO SCH ×3 (10:13→17:34)
[2017-04-20] MEDS: GABAPENTIN 100 MG CAP PO SCH ×2 (10:13→20:46)
[2017-04-20] MEDS: SODIUM CHLORIDE 0.9% FLUSH 10 ML FLUSH IV FLUSH SCH ×2 (10:14→20:47)
[2017-04-20] MEDS: FLUCONAZOLE 100 MG TAB PO SCH (10:14)
--- NOTE | 2017-04-20 10:31 | HHI.NPPN ---
Subjective General Problems: Anemia Renal Failure: End Stage Renal Disease History of Present Illness This is a 56-year-old female with past medical history of diabetes mellitus, ischemic heart disease, hypertension, hyperlipidemia, anxiety disorder, hypothyroidism, morbid obesity, history of multiple abdomen and thigh wounds who came to the hospital with complaint of nausea, vomiting and generalized weakness.The patient has history of end-stage renal disease on hemodialysis Friday, and Friday but she has been missing her dialysis. The last time she was dialyzed was about a week ago. The patient has multiple wounds and she has been getting wound care at home. There is no history of fever but she has a Ruiz catheter and she has a colostomy. The patient denies any history of diarrhea but she has nausea and vomiting. She has been missing dialysis because of the pain that she gets and she is lifted by the [employer] for transportation. I suggested the possibility of home hemodialysis but the son does not think that he can help her with this. Additional Remarks Patient in good spirits. Potassium level normal today. Tolerated dialysis well yesterday. (Betty Rose) Review of Systems Respiratory Respiratory Remarks Denies any SOb (Betty Rose) Cardiovascular Cardiac Remarks Denies any CP (Betty Rose) Gastrointestinal GI Remarks denies any Abdominal pain (Betty Rose) Objective Data Data Vital Signs Date Time Temp Pulse Resp B/P (MAP) Pulse Ox O2 Delivery O2 Flow Rate FiO2 04/20/17 03:44 62 04/20/17 00:01 58 04/20/17 00:00 99.1 60 19 139/62 (87) 99 04/19/17 19:30 98.5 62 19 130/60 (83) 100 04/19/17 14:30 04/19/17 11:31 18 04/19/17 10:44 98.4 92 20 144/77 (99) 100 04/19/17 10:38 98.4 92 18 147/77 (100) 100 Room Air (Betty Rose) -: 04/20/17 0849 04/20/17 0849 Microbiology 04/19/17 Urine Culture, Received Pending (Betty Rose) Physical Exam General Appearance: No Acute Distress, Malnourished (Betty Rose) Eyes Eye Exam: Pupils Equal (Betty Rose) Throat Throat Exam: Oral Mucosa [place] & Moist (Betty Rose) Pulmonary Resp Exam: Clear Bilaterally, Breath Sounds Equal, No Distress (Betty Rose) Cardiology CV Exam: Regular, Normal Sinus Rhythm (Betty Rose) Gastrointestinal/Abdomen GI Exam: Non-Tender, Bowel Sounds Present GI Remarks colostomy (Betty Rose) Genitourinary Exam: Flank Non-Tender (Betty Rose) Integumentary Skin Exam: Ulcer(s) Skin Remarks Multiple areas of chronic wounds including on the pannus of the stomach, the lateral thigh on the left, thigh on the right, and the sacrum. Extensive chronic skin changes in both lower extremities. (Betty Rose) Neurologic Neuro Exam: Alert, Awake, Oriented (Betty Rose) Psychiatric Psych Exam: Appropriate Responses (Betty Rose) Assessment/Plan Discussed Condition With: Patient Assessment Summary: End Stage Renal Disease Problem List: (1) End stage kidney disease ICD Codes: N18.6 - End stage renal disease Status: Chronic Plan: Dialysis MWF Discussed with the patient and the family about the importance of continuing the dialysis regularly. Urine culture pending continue the antibiotic. Hyperkalemia resolved with a potassium level of 4.3 with dialysis and treatment yesterday. Dialysis yesterday with 1.5 liters removed Plans for dialysis tomorrow (2) UTI (urinary tract infection) ICD Codes: N39.0 - Urinary tract infection, site not specified (3) Hyperkalemia ICD Codes: E87.5 - Hyperkalemia Status: Acute (4) Anemia in chronic kidney disease (CKD) ICD Codes: N18.9 - Chronic kidney disease, unspecified; D63.1 - Anemia in chronic kidney disease Status: Acute Plan: Resolved (5) Wounds, multiple ICD Codes: T07 - Unspecified multiple injuries Status: Acute (Betty oRse) Problem List: (1) End stage kidney disease ICD Codes: N18.6 - End stage renal disease Status: Chronic Plan: Dialysis MWF Discussed with the patient and the family about the importance of continuing the dialysis regularly. Urine culture pending continue the antibiotic. Hyperkalemia resolved with a potassium level of 4.3 with dialysis and treatment yesterday. Dialysis yesterday with 1.5 liters removed Plans for dialysis tomorrow. Patient was seen and examined by me. She want to stay until HD done in AM. (2) UTI (urinary tract infection) ICD Codes: N39.0 - Urinary tract infection, site not specified (3) Hyperkalemia ICD Codes: E87.5 - Hyperkalemia Status: Acute (4) Anemia in chronic kidney disease (CKD) ICD Codes: N18.9 - Chronic kidney disease, unspecified; D63.1 - Anemia in chronic kidney disease Status: Acute Plan: Resolved (5) Wounds, multiple ICD Codes: T07 - Unspecified multiple injuries Status: Acute (Valentin Jimenez MD) Betty Rose Apr 20, 2017 10:31 Valentin Jimenez MD Apr 21, 2017 12:14
--- NOTE | 2017-04-20 11:53 | HHI.PR ---
Subjective Remarks Follow-up nausea and vomiting. States she is much better tolerating diet. She admits she was sick because she missed hemodialysis stating it's difficult for her to get out of the house. She is bedridden and has to use [employer]. Because of this, she is requesting to stay overnight to get hemodialysis in the morning and then discharge. This was also requested by nephrology. Discussed with nursing Objective Vitals Vital Signs Date Time Temp Pulse Resp B/P (MAP) Pulse Ox O2 Delivery O2 Flow Rate FiO2 04/20/17 08:00 98.1 71 20 156/63 (94) 99 04/20/17 03:44 62 04/20/17 00:01 58 04/20/17 00:00 99.1 60 19 139/62 (87) 99 04/19/17 19:30 98.5 62 19 130/60 (83) 100 04/19/17 14:30 I/O 04/19/17 04/19/17 04/19/17 04/20/17 04/20/17 04/20/17 07:00 15:00 23:00 07:00 15:00 23:00 Intake Total 100 ml 100 ml 240 ml Output Total 1500 ml 400 ml Balance 100 ml -1400 ml -160 ml Intake Oral 240 ml IV Total 100 ml 100 ml Output Urine Total 400 ml Hemodialysis 1500 ml Result Diagram: 04/20/1749 04/20/17 0849 Objective Remarks GENERAL: Morbid obese patient in no acute distress. SKIN: Focused skin assessment warm/dry. There is extensive obesity, redundant skin, multiple areas of chronic wounds including on the pannus of the stomach, bilateral thighs, and the sacrum. CARDIOVASCULAR: Regular rate and rhythm. No murmur appreciated. RESPIRATORY: No accessory muscle use. Clear to auscultation. Breath sounds equal bilaterally. GASTROINTESTINAL: Abdomen soft, non-tender, nondistended. Ostomy in place. Multiple dressed wounds. MUSCULOSKELETAL: No obvious deformities. Some chronic edema in the lower extremities. Extensive chronic skin changes in both lower extremities. NEUROLOGICAL: Awake and alert. No obvious cranial nerve deficits. PSYCHIATRIC: Appropriate mood and affect. Procedures HD A/P Problem List: (1) Hyperkalemia ICD Code: E87.5 - Hyperkalemia Status: Acute (2) End stage kidney disease ICD Code: N18.6 - End stage renal disease Status: Chronic Assessment and Plan This is a chronically ill 56-year-old female with past medical history of ESRD on HD, HLD, CHF, anxiety, DM, hypothyroidism, kidney, chronic wounds, chronic indwelling Ruiz who came to ER with nausea, vomit and missed hemodialysis for one week Coagulopathy secondary to Coumadin INR 7.2 resolved status post vitamin K. Repeat INR 1.9 restart Coumadin Nausea and vomiting and hypokalemia secondary to uremia from missed hemodialysis. Improved continue hemodialysis per nephrology. Chronic wounds: Patient was receiving Bactrim and Diflucan for infected wounds. Patient without fever and leukocytosis. Continue Diflucan but will discontinue Bactrim secondary to hyperkalemia. Patient will be started on Cipro for gram-negative rene UTI which should also cover skin malvin. Wound care consult wound care Nurse. Complicated UTI Ruiz catheter was replaced yesterday. Discontinue Rocephin and start ciprofloxacin Diabetes mellitus: Stable monitor fingersticks with sliding scale coverage COPD: Not currently in exacerbation Hypothyroidism: Chronic. Continue Hormonal replacement Morbid obesity strongly recommended diet and exercise. Non compliance issues. Counseled DVT prophylaxis: on Coumadin. Discharge Planning Possible discharge in the morning after hemodialysis Frederick Valadez MD Apr 20, 2017 11:53
[2017-04-20] MEDS ORDERED: WARFARIN SOD 4 MG TAB PO ONE (12:30)
[2017-04-20] MEDS ORDERED: CIPROFLOXACIN 250 MG TAB PO ONE (12:30)
--- NOTE | 2017-04-20 12:32 | HHI.DCPOC ---
Discharge Care Plan Diagnosis: (1) End stage kidney disease Your Health Problems Are: Difficulty with ADL Exercise Tolerance Goals to Promote Your Health * To prevent worsening of your condition and complications * To maintain your health at the optimal level Directions to Meet Your Goals Take your medications as prescribed Follow your dietary instruction Follow activity as directed Keep your appointments as scheduled Take your immunizations and boosters as scheduled If your symptoms worsen call your PCP, if no PCP go to Urgent Care Center or Emergency Room Smoking is Dangerous to Your Health. Avoid second hand smoke Call the 24-hour hour crisis hotline for domestic abuse at Frederick Valadez MD Apr 20, 2017 12:32
--- NOTE | 2017-04-20 12:33 | HHI.FF ---
Face to Face Verification Diagnosis: (1) Wound of sacral region (2) Open wound of right hip and thigh (3) Open wound of left hip and thigh (4) End stage renal disease on dialysis Physical Therapy Order: Evaluate and Treat, Improve ambulation, Strength and gait training Home Health Nursing Order: Medical education Signs/symptoms of disease process Medication education-adverse effect Wound care and dressing changes Nursing assessment with vital signs Entry Level Order: To Evaluate: Living conditions/environment, Support services I have seen patient Ana María Foley on 04/20/17. My clinical findings support the need for the requested home health care services because: Deconditioned w/ increased weakness I certify that my clinical findings support that this patient is homebound because: Unsafe to leave home unassisted Frederick Valadez MD Apr 20, 2017 12:33
[2017-04-20] MEDS: WARFARIN SOD 4 MG TAB PO SCH (15:26)
[2017-04-20] MEDS: ATORVASTATIN 40 MG TAB PO SCH (20:46)
[2017-04-21] VITALS (12 sets, daily range): BP systolic 115–176; BP diastolic 54–73; PULSE 54–72; RESP 16–22; TEMP 97.9–99; O2SAT 97–100
[2017-04-21] MEDS: ACETAMINOPHEN/HYDROcodone 325 MG/10 MG TAB PO PRN ×3 (01:39→17:54)
[2017-04-21] MEDS: LEVOTHYROXINE SODIUM 150 MCG TAB PO SCH (05:43)
[2017-04-21 07:01] LABS: AUTOMATED NEUTROPHIL # 4.3 TH/MM3 (1.8-7.7); BASOPHIL # 0.1 TH/MM3 (0-0.2); BASOPHIL % 0.9 % (0.0-2.0); EOSINOPHIL # 0.2 TH/MM3 (0-0.4); EOSINOPHIL % 2.4 % (0.0-4.0); HEMATOCRIT 23.6 % (35.0-46.0); HEMOGLOBIN 7.6 GM/DL (11.6-15.3); LYMPHOCYTE # 1.6 TH/MM3 (1.0-4.8); MEAN CELL VOLUME 80.6 FL (80.0-100.0); MEAN CORPUSCULAR HEMOGLOBIN 25.9 PG (27.0-34.0); MEAN CORPUSCULAR HGB CONC 32.2 % (32.0-36.0); MEAN PLATELET VOLUME 6.8 FL (7.0-11.0); MONO % 9.3 % (0.0-8.0); MONOCYTE # 0.6 TH/MM3 (0-0.9); NEUT % 63.4 % (16.0-70.0); PLATELET COUNT 270 TH/MM3 (150-450); RED BLOOD COUNT 2.93 MIL/MM3 (4.00-5.30); RED CELL DISTRIBUTION WIDTH 16.6 % (11.6-17.2); WHITE BLOOD COUNT 6.8 TH/MM3 (4.0-11.0)
[2017-04-21 07:12] LABS: INTERNATIONAL NORMALIZED RATIO 1.5 RATIO; PROTHROMBIN TIME - PATIENT 14.8 SEC (9.8-11.6)
[2017-04-21 07:29] LABS: BICARBONATE 25.3 MEQ/L (21.0-32.0); CALCIUM 7.6 MG/DL (8.5-10.1); CREATININE 4.5 MG/DL (0.50-1.00); MAGNESIUM 1.7 MG/DL (1.5-2.5)
[2017-04-21] MEDS: INSULIN ASPART SUPPLEMENTAL SCALE SQ SCH ×4 (08:00→22:30)
[2017-04-21] MEDS: CALCIUM CARBONATE 500 MG CHEWABLE TAB CHEW SCH ×2 (09:00→22:30)
--- NOTE | 2017-04-21 09:05 | HHI.NPPN ---
Subjective General Problems: Anemia Renal Failure: End Stage Renal Disease History of Present Illness This is a 56-year-old female with past medical history of diabetes mellitus, ischemic heart disease, hypertension, hyperlipidemia, anxiety disorder, hypothyroidism, morbid obesity, history of multiple abdomen and thigh wounds who came to the hospital with complaint of nausea, vomiting and generalized weakness.The patient has history of end-stage renal disease on hemodialysis Friday, and Friday but she has been missing her dialysis. The last time she was dialyzed was about a week ago. The patient has multiple wounds and she has been getting wound care at home. There is no history of fever but she has a Ruiz catheter and she has a colostomy. The patient denies any history of diarrhea but she has nausea and vomiting. She has been missing dialysis because of the pain that she gets and she is lifted by the [employer] for transportation. I suggested the possibility of home hemodialysis but the son does not think that he can help her with this. Additional Remarks Complaining of areas on abdomen with increased pain. Requesting increase in pain medication. Dialysis for today (Betty Rose) Review of Systems Respiratory Respiratory Remarks Denies any SOb (Betty Rose) Cardiovascular Cardiac Remarks Denies any CP (Betty Rose) Gastrointestinal Gastrointestinal: Abdominal Pain GI Remarks tenderness noted on multiple areas on abdomen (Betty Rose) Objective Data Data Vital Signs Date Time Temp Pulse Resp B/P (MAP) Pulse Ox O2 Delivery O2 Flow Rate FiO2 04/21/17 05:42 69 121/71 (88) 04/21/17 04:00 97.9 67 16 100 04/21/17 03:48 61 04/21/17 00:00 97.9 58 18 131/73 (92) 99 04/20/17 23:47 59 04/20/17 20:00 98.2 57 20 104/71 (82) 100 04/20/17 19:45 52 04/20/17 16:00 98.2 55 20 117/54 (75) 100 04/20/17 16:00 52 04/20/17 13:52 18 04/20/17 12:00 98.4 56 20 115/49 (71) 100 04/20/17 12:00 60 (Betty Rose) -: 04/21/17 0642 04/21/17 0642 Physical Exam General Appearance: No Acute Distress, Malnourished (Betty Rose) Eyes Eye Exam: Pupils Equal (Betty Rose) Throat Throat Exam: Oral Mucosa [place] & Moist (Betty Rose) Pulmonary Resp Exam: Clear Bilaterally, Breath Sounds Equal, No Distress (Betty Rose) Cardiology CV Exam: Regular, Normal Sinus Rhythm (Betty Rose) Gastrointestinal/Abdomen GI Exam: Non-Tender, Bowel Sounds Present GI Remarks colostomy (Betty Rose) Genitourinary Exam: Flank Non-Tender (Betty Rose) Integumentary Skin Exam: Ulcer(s) Skin Remarks Multiple areas of chronic wounds including on the pannus of the stomach, the lateral thigh on the left, thigh on the right, and the sacrum. Extensive chronic skin changes in both lower extremities. (Betty Rose) Neurologic Neuro Exam: Alert, Awake, Oriented (Betty Rose) Psychiatric Psych Exam: Appropriate Responses (Betty Rose) Assessment/Plan Discussed Condition With: Patient Assessment Summary: End Stage Renal Disease Problem List: (1) End stage kidney disease ICD Codes: N18.6 - End stage renal disease Status: Chronic Plan: Dialysis MWF Discussed with the patient and the family about the importance of continuing the dialysis regularly. Urine culture pending continue the antibiotic. HGB 7.6 receiving Epogen with dialysis Calcium level at 7.6 calcium carbonate added Plans for dialysis today (2) UTI (urinary tract infection) ICD Codes: N39.0 - Urinary tract infection, site not specified (3) Hyperkalemia ICD Codes: E87.5 - Hyperkalemia Status: Acute (4) Anemia in chronic kidney disease (CKD) ICD Codes: N18.9 - Chronic kidney disease, unspecified; D63.1 - Anemia in chronic kidney disease Status: Acute Plan: Resolved (5) Wounds, multiple ICD Codes: T07 - Unspecified multiple injuries Status: Acute (Betty Rose) Problem List: (1) End stage kidney disease ICD Codes: N18.6 - End stage renal disease Status: Chronic Plan: Dialysis MWF Discussed with the patient and the family about the importance of continuing the dialysis regularly. Urine culture pending continue the antibiotic. HGB 7.6 receiving Epogen with dialysis Calcium level at 7.6 calcium carbonate added Patient seen and examined, agree with above. HD now, remove fluid as tolerated. (2) UTI (urinary tract infection) ICD Codes: N39.0 - Urinary tract infection, site not specified (3) Hyperkalemia ICD Codes: E87.5 - Hyperkalemia Status: Acute (4) Anemia in chronic kidney disease (CKD) ICD Codes: N18.9 - Chronic kidney disease, unspecified; D63.1 - Anemia in chronic kidney disease Status: Acute Plan: Resolved (5) Wounds, multiple ICD Codes: T07 - Unspecified multiple injuries Status: Acute (Valentin Jimenez MD) Betty Rose Apr 21, 2017 09:05 Valentin Jimenez MD Apr 21, 2017 15:26
[2017-04-21] MEDS ORDERED: MORPHINE SULFATE 2 MG/ML INJ IV PUSH PRN (10:00)
[2017-04-21] MEDS: GABAPENTIN 100 MG CAP PO SCH ×2 (10:05→22:30)
[2017-04-21] MEDS: OXYBUTYNIN CHLORIDE 5 MG TAB PO SCH ×2 (10:05→22:29)
[2017-04-21] MEDS: ONDANSETRON HCL 4 MG/2 ML VIAL IV PUSH PRN (10:05)
[2017-04-21] MEDS: FLUCONAZOLE 100 MG TAB PO SCH (10:05)
[2017-04-21] MEDS: PARoxetine HCL 20 MG TAB PO SCH (10:06)
[2017-04-21] MEDS: CIPROFLOXACIN 250 MG TAB PO SCH (10:06)
[2017-04-21] MEDS: SODIUM CHLORIDE 0.9% FLUSH 10 ML FLUSH IV FLUSH SCH ×2 (10:06→22:31)
--- NOTE | 2017-04-21 10:06 | HHI.PR ---
Subjective Remarks Follow-up end-stage renal disease. Patient due for hemodialysis today no more nausea and vomiting but complains of left lower quadrant pain similar when she developed abscess demanding to have ultrasound before discharge. Also requesting medicine for breakthrough pain discussed with nursing Objective Vitals Vital Signs Date Time Temp Pulse Resp B/P (MAP) Pulse Ox O2 Delivery O2 Flow Rate FiO2 04/21/17 05:42 69 121/71 (88) 04/21/17 04:00 97.9 67 16 100 04/21/17 03:48 61 04/21/17 00:00 97.9 58 18 131/73 (92) 99 04/20/17 23:47 59 04/20/17 20:00 98.2 57 20 104/71 (82) 100 04/20/17 19:45 52 04/20/17 16:00 98.2 55 20 117/54 (75) 100 04/20/17 16:00 52 04/20/17 13:52 18 04/20/17 12:00 98.4 56 20 115/49 (71) 100 04/20/17 12:00 60 I/O 04/20/17 04/20/17 04/20/17 04/21/17 04/21/17 04/21/17 07:00 15:00 23:00 07:00 15:00 23:00 Intake Total 240 ml 600 ml 1140 ml Output Total 400 ml 400 ml 480 ml Balance -160 ml 200 ml 660 ml Intake Oral 240 ml 600 ml 1140 ml Output Urine Total 400 ml 400 ml 480 ml # Bowel Movements 1 0 Result Diagram: 04/21/17 0642 04/21/17 0642 Objective Remarks GENERAL: Morbid obese patient in no acute distress. SKIN: Focused skin assessment warm/dry. There is extensive obesity, redundant skin, multiple areas of chronic wounds including on the pannus of the stomach, bilateral thighs, and the sacrum. CARDIOVASCULAR: Regular rate and rhythm. No murmur appreciated. RESPIRATORY: No accessory muscle use. Clear to auscultation. Breath sounds equal bilaterally. GASTROINTESTINAL: Abdomen soft, non-tender, nondistended. Ostomy in place. Multiple dressed wounds. 2 tender spots on the left lower quadrant with induration no redness or swelling MUSCULOSKELETAL: No obvious deformities. Some chronic edema in the lower extremities. Extensive chronic skin changes in both lower extremities. NEUROLOGICAL: Awake and alert. No obvious cranial nerve deficits. PSYCHIATRIC: Appropriate mood and affect. Procedures HD A/P Problem List: (1) Hyperkalemia ICD Code: E87.5 - Hyperkalemia Status: Acute (2) End stage kidney disease ICD Code: N18.6 - End stage renal disease Status: Chronic Assessment and Plan This is a chronically ill 56-year-old female with past medical history of ESRD on HD, HLD, CHF, anxiety, DM, hypothyroidism, kidney, chronic wounds, chronic indwelling Ruiz who came to ER with nausea, vomit and missed hemodialysis for one week Coagulopathy secondary to Coumadin INR 7.2 resolved status post vitamin K. Restart Coumadin history of DVT Nausea and vomiting and hypokalemia secondary to uremia from missed hemodialysis. Improved continue hemodialysis per nephrology. Patient has acute on chronic anemia symptomatic. No acute blood loss. Epogen during hemodialysis Chronic wounds: Patient was receiving Bactrim and Diflucan for infected wounds. Patient without fever and leukocytosis. Continue Diflucan but will discontinue Bactrim secondary to hyperkalemia. Patient will be continued on Cipro for gram-negative rene UTI which should also cover skin malvin. Wound care and consult wound care Nurse. Patient complaining of 2 new tender spots on the left lower quadrant. Obtain ultrasound to evaluate for abscess. Add IV morphine for breakthrough pain. Complicated UTI Ruiz catheter was replaced toward 12/2017. Continue Cipro Diabetes mellitus: Stable monitor fingersticks with sliding scale coverage COPD: Not currently in exacerbation Hypothyroidism: Chronic. Continue Hormonal replacement Morbid obesity strongly recommended diet and exercise. Non compliance issues. Counseled DVT prophylaxis: on Coumadin. Discharge Planning Discharge patient to home Condition on discharge: Improved Regular Diet as tolerated Ad Yanet activity Rx written: Cipro Follow-up with primary care physician and nephrology. Follow-up pending urine culture Frederick Valadez MD Apr 21, 2017 10:06
[2017-04-21] MEDS: QUEtiapine FUMARATE 25 MG TAB PO SCH ×3 (10:07→17:54)
--- NOTE | 2017-04-21 14:09 | MB ---
cc: JAQUELINE VALADEZ MD, FRANKLYN F. MD DATE OF CONSULTATION 04/21/[address] Valadez. REASON FOR CONSULTATION Complicated UTI. Klebsiella pneumoniae ESBL per verbal report. HISTORY OF PRESENT ILLNESS This is a 56-year-old white female who has multiple medical problems. She has had multiple hospitalizations over the past year. The patient presented to the emergency department with nausea and vomiting. She missed her last week of dialysis. She has end-stage renal disease and receives hemodialysis three times a week. She has home care nurse attendees who take care of her wound on the right lower extremity. The patient is morbidly obese. She states to me that she gets bladder spasms and she has some leakage around her Ruiz catheter which is in place for the urine. She has had the chronic Ruiz catheter for months. She states that it was last changed two weeks ago and that after she was admitted here this admission it was changed again. A urine culture was taken and it has gram-negative rene. The patient notes that she has an area of firmness at the left lower abdomen which was treated with warm compresses and it broke open and bled. She tells me that she really does not know what other fluid came out of it. She notes that there are two other areas on the abdomen which have had a knotty feel. She states that these areas are tender. The patient has been known to have calciphylaxis. The patient had an abdominal wound infection back in June 2016 which to be treated surgically. She underwent a panniculectomy and a culture at that time grew out VRE and Pseudomonas aeruginosa. The culture actually grew out of the post-surgical wound in early July. She subsequently had another culture with MRSA of the wound of the abdomen in August. Her last discharge from this hospital was on January 06, 2017. The patient is afebrile. White blood cell count is normal. She is awake and alert and her main complaint currently is nausea and pain at the abdomen. PAST MEDICAL HISTORY 1. C. difficile colitis. 2. Diabetes mellitus. 3. Hypertension. 4. Osteoarthritis. 5. Coronary artery disease. 6. End-stage renal disease. 7. Hypothyroidism. 8. Sleep apnea. 9. Spinal stenosis. PAST SURGICAL HISTORY 1. Laparoscopic cholecystectomy 1996. 2. Coronary artery stent. 3. Lap band 2004. 4. AV fistula. 5. Abdominal debridement and panniculectomy. ALLERGIES 1. CLARITHROMYCIN. 2. FERROUS FUMARATE. 3. FERROUS SULFATE. 4. FERUMOXYTOL. 5. IRON. 6. MORPHINE. 7. MULTIPLE VITAMINS WITH IRON. SOCIAL HISTORY No tobacco. No alcohol. No illicit drugs. FAMILY HISTORY Noncontributory. REVIEW OF SYSTEMS Pertinent as mentioned above in the history of present illness. Otherwise negative on review. PHYSICAL EXAMINATION GENERAL: This is a morbidly obese female who is alert and awake. She is in no acute distress. VITAL SIGNS: Temperature 98.3, BP 129/60, respirations 20, heart rate 54. HEENT: Head is atraumatic. Extraocular movements grossly intact. Pupils reactive to light. No icterus. No conjunctival erythema. Oropharynx moist mucosa without lesions. NECK: Supple without adenopathy. LUNGS: Clear breath sounds bilaterally which are decreased. HEART: Regular rate and rhythm without murmurs, rubs or gallops. ABDOMEN: Obese, soft. The patient has firm nodular lesions at the abdomen in two locations on the left upper quadrant and left lower quadrant which are tender and have mild erythema. There is a dressing overlying another lesion which is at the lower left abdomen. The abdomen is obese. She has a colostomy which has pink moist mucosa. RECTAL: Not performed. EXTREMITIES: No clubbing, cyanosis or edema. The patient has tree bark changes at the lower extremities and an ulceration of the right tibia which has a dressing over it. The skin has no diffuse rash. NEUROLOGIC: No gross focal findings. PSYCH: The patient is pleasant, calm and cooperative. LABORATORY WBC 6.8, platelets 270, hemoglobin 7.6, 63% neutrophils, 24% lymphocytes. Creatinine 4.5, estimated GFR 10, sodium 134. Urinalysis revealed many white blood cell clumps. Urine culture has gram-negative rene preliminary. IMPRESSION 1. Urinary tract infection due to gram-negative bacteria. 2. Abdominal wall skin lesions which likely are skin abscesses. This may also be related to calciphylaxis in a patient with end-stage renal disease. 3. End-stage renal disease. RECOMMENDATIONS 1. Continue ciprofloxacin for now while we await the urine culture result and ESBL analysis. Antibiotics will be changed once that becomes available. 2. Ultrasound of the lesions of the abdomen has been ordered. The patient may require incision and drainage for diagnosis and treatment of these lesions. Thank you for this consultation. I will follow the patient and make further recommendations on follow-up. Chu Neville MD FD/SARKIS /1:19 PM /1:37 PM
[2017-04-21] MEDS: HEPARIN SODIUM - IV 10,000 UNITS/10 ML VIAL PRN (14:52)
[2017-04-21] MEDS: GENTAMICIN SULFATE 20 MG/2 ML VIAL OTHER PRN (14:52)
[2017-04-21] MEDS ORDERED: NS IV ONE ×2 (15:00)
[2017-04-21] MEDS ORDERED: MEROPENEM IV ONE ×2 (15:00)
[2017-04-21] MEDS: EPOETIN ALFA 10,000 UNITS/ML VIAL IV PUSH PRN (15:42)
[2017-04-21] MEDS: WARFARIN SOD 4 MG TAB PO SCH (17:54)
--- NOTE | 2017-04-21 22:06 | RADRPT ---
EXAM DATE/TIME: 04/21/2017 19:30 [place] COMPARISON: No previous studies available for comparison. INDICATIONS : Left lower abdomen, evaluate for abscess. MEDICAL HISTORY : Congestive heart failure. Hypercholesterolemia. Hypertension. Thyroid disease. Neck pain. Hyperlipide kang. Chest pain. Dialysis. Diabetes. Anemia. MRSA. C-diff SURGICAL HISTORY : Tonsillectomy. Coronary artery stent. CABG. Adenoidectomy. Lap band surgery. Cholecystectomy. Cesarea n section. AV fistula. ENCOUNTER: Initial ACUITY: 1 month PAIN SCORE: 5/10 LOCATION: Left lower quadrant AREA EVALUATED: Left lower quadrant of the abdomen. FINDINGS: MASSES: None. FLUID COLLECTIONS: None. OTHER: Negative. CONCLUSION: 1. No mass or fluid collection identified in the area of palpable abnormality. Lucio Jacobs MD on April 21, 2017 at 22:03 Board Certified Radiologist. This report was verified electronically.
[2017-04-21] MEDS: ATORVASTATIN 40 MG TAB PO SCH (22:30)
[2017-04-22] VITALS (10 sets, daily range): BP systolic 109–166; BP diastolic 49–74; PULSE 55–70; RESP 16–22; TEMP 97.5–98.5; O2SAT 98–100
[2017-04-22] MEDS: ACETAMINOPHEN/HYDROcodone 325 MG/10 MG TAB PO PRN ×4 (00:33→18:39)
[2017-04-22] MEDS: ALPRAZolam 0.25 MG TAB PO PRN (00:33)
[2017-04-22] MEDS: LEVOTHYROXINE SODIUM 150 MCG TAB PO SCH (06:24)
[2017-04-22 07:34] LABS: INTERNATIONAL NORMALIZED RATIO 1.4 RATIO; PROTHROMBIN TIME - PATIENT 14.5 SEC (9.8-11.6)
[2017-04-22] MEDS: INSULIN ASPART SUPPLEMENTAL SCALE SQ SCH ×4 (08:00→20:56)
[2017-04-22] MEDS: CIPROFLOXACIN 250 MG TAB PO SCH (08:57)
[2017-04-22] MEDS: SODIUM CHLORIDE 0.9% FLUSH 10 ML FLUSH IV FLUSH SCH ×2 (08:57→20:56)
[2017-04-22] MEDS: CALCIUM CARBONATE 500 MG CHEWABLE TAB CHEW SCH ×2 (08:57→20:55)
[2017-04-22] MEDS: QUEtiapine FUMARATE 25 MG TAB PO SCH ×3 (08:58→17:30)
[2017-04-22] MEDS: OXYBUTYNIN CHLORIDE 5 MG TAB PO SCH ×2 (08:58→20:55)
[2017-04-22] MEDS: PARoxetine HCL 20 MG TAB PO SCH (08:58)
[2017-04-22] MEDS: FLUCONAZOLE 100 MG TAB PO SCH (08:58)
[2017-04-22] MEDS: GABAPENTIN 100 MG CAP PO SCH ×2 (08:58→20:55)
[2017-04-22] MEDS ORDERED: LISI20TA PO (12:32)
--- NOTE | 2017-04-22 15:00 | HHI.PR ---
Subjective Remarks Patient reports she is feeling okay today. Expressed some concerns about lumps in her abdomen. They have not gotten any bigger. Still having some tenderness. Afebrile. Objective Vitals Vital Signs Date Time Temp Pulse Resp B/P (MAP) Pulse Ox O2 Delivery O2 Flow Rate FiO2 04/22/17 14:23 18 04/22/17 12:07 97.5 58 22 121/60 (80) 99 04/22/17 11:08 99 Room Air 04/22/17 10:24 68 04/22/17 08:07 98.5 63 22 166/74 (104) 99 04/22/17 04:45 98.5 70 16 109/49 (69) 98 04/22/17 04:09 63 04/21/17 23:25 98.4 57 16 122/54 (76) 100 04/21/17 20:23 98.2 54 17 115/55 (75) 100 04/21/17 17:20 98.8 66 22 134/64 (87) 100 04/21/17 16:00 Room Air I/O 04/21/17 04/21/17 04/21/17 04/22/17 04/22/17 04/22/17 07:00 15:00 23:00 07:00 15:00 23:00 Intake Total 1140 ml 180 ml 240 ml Output Total 480 ml 2800 ml 1300 ml Balance 660 ml -2620 ml -1060 ml Intake Oral 1140 ml 180 ml 240 ml Output Urine Total 480 ml 800 ml 550 ml Stool Total 750 ml Hemodialysis 2000 ml # Bowel Movements 0 0 Result Diagram: 04/21/17 0642 04/21/17 0642 Objective Remarks GENERAL: Morbid obese patient in no acute distress. SKIN: There is extensive obesity, redundant skin, left upper and lower abdomen has a couple of subcutaneous lumps but no fluctuance. Left lower quadrant has wound, appear to be chronic. Multiple areas of chronic wounds including on the pannus of the stomach, bilateral thighs, and the sacrum. CARDIOVASCULAR: Regular rate and rhythm. No murmur appreciated. RESPIRATORY: No accessory muscle use. Clear to auscultation. Breath sounds equal bilaterally. GASTROINTESTINAL: Abdomen soft, non-tender, nondistended. Ostomy in place. Multiple dressed wounds. 2 tender spots on the left lower quadrant with induration no redness or swelling MUSCULOSKELETAL: No obvious deformities. Some chronic edema in the lower extremities. Extensive chronic skin changes in both lower extremities. NEUROLOGICAL: Awake and alert. No obvious cranial nerve deficits. PSYCHIATRIC: Appropriate mood and affect. Procedures HD A/P Problem List: (1) Hyperkalemia ICD Code: E87.5 - Hyperkalemia Status: Acute (2) End stage kidney disease ICD Code: N18.6 - End stage renal disease Status: Chronic Assessment and Plan Chronically ill 56-year-old female with past medical history of ESRD on HD, HLD , CHF, anxiety, DM, hypothyroidism, kidney, chronic wounds, chronic indwelling Ruiz who came to ER with nausea, vomit and missed hemodialysis for one week Coagulopathy secondary to Coumadin INR 7.2 resolved status post vitamin K. Coumadin restarted given history of DVT. Follow INR. Nausea and vomiting and hypokalemia secondary to uremia from missed hemodialysis. Improved continue hemodialysis per nephrology. Chronic wounds: Patient was receiving Bactrim and Diflucan for infected wounds. Patient without fever and leukocytosis. Abdominal lumps. Ultrasound negative for abscess or mass. 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 Continue to monitor. Wound care consulted. Complicated UTI Ruiz catheter was replaced toward 12/2017. Urine growing ESBL and Pseudomonas. Discuss with ID. Patient started on ertapenem and tobramycin. - Repeat urine cultures on 04/24/17. Continue to monitor. Diabetes mellitus: Stable monitor fingersticks with sliding scale coverage COPD: Not currently in exacerbation Hypothyroidism: Chronic. Continue Hormonal replacement Morbid obesity strongly recommended diet and exercise. Non compliance issues. Counseled DVT prophylaxis: on Coumadin. Tila Beckwith MD Apr 22, 2017 15:00
[2017-04-22] MEDS ORDERED: MISCELLANEOUS PHARMACY INFORMATION XX PRN ×2 (15:45)
[2017-04-22] MEDS ORDERED: ASP: Path resistant to other antimicrobials, culture proven PRN (15:45)
--- NOTE | 2017-04-22 15:59 | HHI.IDPN ---
Note Infectious Disease Note Patient without complaints. Afebrile. Urine culture growing multiply resistant pseudomonas and Klebsiella ESBL. Ruiz has clous=dy sediment. The patient presented to the emergency department with nausea and vomiting. She missed her last week of dialysis. She has end-stage renal disease and receives hemodialysis three times a week. The patient is morbidly obese. She states to me that she gets bladder spasms and she has some leakage around her Ruiz catheter which is in place for the urine. She has had the chronic Ruiz catheter for months. She states that it was last changed two weeks ago and that after she was admitted here this admission it was changed again. The patient is afebrile. White blood cell count is normal. She is awake and alert and her main complaint currently is nausea and pain at the abdomen. PAST MEDICAL HISTORY 1. C. difficile colitis. 2. Diabetes mellitus. 3. Hypertension. 4. Osteoarthritis. 5. Coronary artery disease. 6. End-stage renal disease. 7. Hypothyroidism. 8. Sleep apnea. 9. Spinal stenosis. PAST SURGICAL HISTORY 1. Laparoscopic cholecystectomy 1996. 2. Coronary artery stent. 3. Lap band 2004. 4. AV fistula. 5. Abdominal debridement and panniculectomy. ALLERGIES 1. CLARITHROMYCIN. 2. FERROUS FUMARATE. 3. FERROUS SULFATE. 4. FERUMOXYTOL. 5. IRON. 6. MORPHINE. 7. MULTIPLE VITAMINS WITH IRON. OBJECTIVE: Vital Signs Date Time Temp Pulse Resp B/P (MAP) Pulse Ox O2 Delivery O2 Flow Rate FiO2 04/22/17 14:23 18 04/22/17 12:07 97.5 58 22 121/60 (80) 99 04/22/17 11:08 99 Room Air 04/22/17 10:24 68 04/22/17 08:07 98.5 63 22 166/74 (104) 99 04/22/17 04:45 98.5 70 16 109/49 (69) 98 04/22/17 04:09 63 04/21/17 23:25 98.4 57 16 122/54 (76) 100 04/21/17 20:23 98.2 54 17 115/55 (75) 100 04/21/17 17:20 98.8 66 22 134/64 (87) 100 04/21/17 16:00 Room Air Laboratory Tests Test 04/21/17 06:42 White Blood Count 6.8 TH/MM3 Red Blood Count 2.93 MIL/MM3 Hemoglobin 7.6 GM/DL Hematocrit 23.6 % Mean Corpuscular Volume 80.6 FL Mean Corpuscular Hemoglobin 25.9 PG Mean Corpuscular Hemoglobin Concent 32.2 % Red Cell Distribution Width 16.6 % Platelet Count 270 TH/MM3 Mean Platelet Volume 6.8 FL Neutrophils (%) (Auto) 63.4 % Lymphocytes (%) (Auto) 24.0 % Monocytes (%) (Auto) 9.3 % Eosinophils (%) (Auto) 2.4 % Basophils (%) (Auto) 0.9 % Neutrophils # (Auto) 4.3 TH/MM3 Lymphocytes # (Auto) 1.6 TH/MM3 Monocytes # (Auto) 0.6 TH/MM3 Eosinophils # (Auto) 0.2 TH/MM3 Basophils # (Auto) 0.1 TH/MM3 CBC Comment DIFF FINAL Differential Comment Laboratory Tests Test 04/21/17 06:42 Blood Urea Nitrogen 39 MG/DL Creatinine 4.50 MG/DL Random Glucose 81 MG/DL Calcium Level 7.6 MG/DL Magnesium Level 1.7 MG/DL Sodium Level 134 MEQ/L Potassium Level 4.4 MEQ/L Chloride Level 100 MEQ/L Carbon Dioxide Level 25.3 MEQ/L Anion Gap 9 MEQ/L Estimat Glomerular Filtration Rate 10 ML/MIN PHYSICAL EXAMINATION GENERAL: Alert and awake. She is in no acute distress. HEENT: Head is atraumatic. Extraocular movements grossly intact. Pupils reactive to light. No icterus. No conjunctival erythema. Oropharynx moist mucosa without lesions. NECK: Supple without adenopathy. LUNGS: Clear breath sounds. HEART: Regular rate and rhythm without murmurs, rubs or gallops. ABDOMEN: Obese, soft. The patient has firm nodular lesions at the abdomen in two locations on the left upper quadrant and left lower quadrant which are tender and have mild erythema. There is a dressing overlying another lesion which is at the lower left abdomen. The abdomen is obese. She has a colostomy which has pink moist mucosa. EXTREMITIES: No clubbing, cyanosis or edema. Chronic tree bark changes at the lower extremities and an ulceration of the right tibia which has a dressing over it. The skin has no diffuse rash. NEUROLOGIC: No gross focal findings. PSYCH: Pleasant, calm and cooperative. IMPRESSION 1. Urinary tract infection due to gram-negative bacteria. Klebsiella and pseudomonas. 2. 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 Negative ultrasound. 3. End-stage renal disease. RECOMMENDATIONS 1. Stop ciprofloxacin. 2. Begin Ertapenem and Tobramycin. 3. Repeat the urine culture on 04/24/17. 4. Monitor clinical status. Chu Neville MD Apr 22, 2017 15:58
[2017-04-22] MEDS ORDERED: TOBRAMYCIN INJ 400 MG in SODIUM CHLORIDE 0.9% INJ 100 ML IV SCH (16:00)
[2017-04-22] MEDS ORDERED: WARFARIN SOD 2 MG TAB PO ONE (16:00)
[2017-04-22] MEDS ORDERED: ERTAPENEM INJ 500 MG in SODIUM CHLORIDE 0.9% INJ 100 ML IV SCH (16:00)
[2017-04-22] MEDS: WARFARIN SOD 4 MG TAB PO SCH (17:17)
[2017-04-22] MEDS: ERTAPENEM INJ 500 MG in SODIUM CHLORIDE 0.9% INJ 100 ML IV SCH (17:31)
--- NOTE | 2017-04-22 19:13 | HHI.NPPN ---
Subjective General Problems: Anemia Renal Failure: End Stage Renal Disease History of Present Illness This is a 56-year-old female with past medical history of diabetes mellitus, ischemic heart disease, hypertension, hyperlipidemia, anxiety disorder, hypothyroidism, morbid obesity, history of multiple abdomen and thigh wounds who came to the hospital with complaint of nausea, vomiting and generalized weakness.The patient has history of end-stage renal disease on hemodialysis Friday, and Friday but she has been missing her dialysis. The last time she was dialyzed was about a week ago. The patient has multiple wounds and she has been getting wound care at home. There is no history of fever but she has a Ruiz catheter and she has a colostomy. The patient denies any history of diarrhea but she has nausea and vomiting. She has been missing dialysis because of the pain that she gets and she is lifted by the [employer] for transportation. I suggested the possibility of home hemodialysis but the son does not think that he can help her with this. Additional Remarks Patient is alert, has mild back pain, no SOB. Review of Systems Respiratory Respiratory Remarks Denies any SOb Cardiovascular Cardiac Remarks Denies any CP Gastrointestinal Gastrointestinal: Abdominal Pain GI Remarks tenderness noted on multiple areas on abdomen Objective Data Data Vital Signs Date Time Temp Pulse Resp B/P (MAP) Pulse Ox O2 Delivery O2 Flow Rate FiO2 04/22/17 16:07 98.0 56 22 131/61 (84) 100 04/22/17 16:00 56 04/22/17 14:23 18 04/22/17 12:07 97.5 58 22 121/60 (80) 99 04/22/17 12:00 55 04/22/17 11:08 99 Room Air 04/22/17 10:24 68 04/22/17 08:07 98.5 63 22 166/74 (104) 99 04/22/17 04:45 98.5 70 16 109/49 (69) 98 04/22/17 04:09 63 04/21/17 23:25 98.4 57 16 122/54 (76) 100 04/21/17 20:23 98.2 54 17 115/55 (75) 100 -: 04/21/17 0642 04/21/17 0642 Physical Exam General Appearance: No Acute Distress, Malnourished Eyes Eye Exam: Pupils Equal Throat Throat Exam: Oral Mucosa [place] & Moist Pulmonary Resp Exam: Clear Bilaterally, Breath Sounds Equal, No Distress Cardiology CV Exam: Regular, Normal Sinus Rhythm Gastrointestinal/Abdomen GI Exam: Non-Tender, Bowel Sounds Present Genitourinary Exam: Flank Non-Tender Integumentary Skin Exam: Ulcer(s) Neurologic Neuro Exam: Alert, Awake, Oriented Psychiatric Psych Exam: Appropriate Responses Assessment/Plan Discussed Condition With: Patient Assessment Summary: End Stage Renal Disease Problem List: (1) End stage kidney disease ICD Codes: N18.6 - End stage renal disease Status: Chronic Plan: Dialysis MWF Discussed with the patient and the family about the importance of continuing the dialysis regularly. Urine culture pending continue the antibiotic. HGB 7.6 receiving Epogen with dialysis Calcium level at 7.6 calcium carbonate added Seen by ID, has UTI. Ruiz's catheter changed. To get Skin Biopsy, possible Calciphylaxis. (2) UTI (urinary tract infection) ICD Codes: N39.0 - Urinary tract infection, site not specified (3) Hyperkalemia ICD Codes: E87.5 - Hyperkalemia Status: Acute (4) Anemia in chronic kidney disease (CKD) ICD Codes: N18.9 - Chronic kidney disease, unspecified; D63.1 - Anemia in chronic kidney disease Status: Acute Plan: Resolved (5) Wounds, multiple ICD Codes: T07 - Unspecified multiple injuries Status: Acute Valentin Jimenez MD Apr 22, 2017 19:13
[2017-04-22] MEDS: ATORVASTATIN 40 MG TAB PO SCH (20:55)
[2017-04-23] VITALS (9 sets, daily range): BP systolic 103–156; BP diastolic 52–96; PULSE 58–79; RESP 15–20; TEMP 97.8–98.7; O2SAT 95–100
[2017-04-23] MEDS: ACETAMINOPHEN/HYDROcodone 325 MG/10 MG TAB PO PRN ×2 (01:37→12:10)
[2017-04-23] MEDS: LEVOTHYROXINE SODIUM 150 MCG TAB PO SCH (05:54)
[2017-04-23] MEDS: INSULIN ASPART SUPPLEMENTAL SCALE SQ SCH ×4 (08:00→23:30)
[2017-04-23] MEDS: OXYBUTYNIN CHLORIDE 5 MG TAB PO SCH ×2 (08:17→23:29)
[2017-04-23] MEDS: PARoxetine HCL 20 MG TAB PO SCH (08:17)
[2017-04-23] MEDS: FLUCONAZOLE 100 MG TAB PO SCH (08:17)
[2017-04-23] MEDS: QUEtiapine FUMARATE 25 MG TAB PO SCH ×3 (08:17→18:08)
[2017-04-23] MEDS: GABAPENTIN 100 MG CAP PO SCH ×2 (08:17→23:28)
[2017-04-23] MEDS: CALCIUM CARBONATE 500 MG CHEWABLE TAB CHEW SCH ×2 (08:17→23:30)
[2017-04-23] MEDS: SODIUM CHLORIDE 0.9% FLUSH 10 ML FLUSH IV FLUSH SCH ×2 (08:20→23:30)
[2017-04-23] MEDS: ONDANSETRON HCL 4 MG/2 ML VIAL IV PUSH PRN ×2 (08:51→23:28)
[2017-04-23] MEDS: ALBUMIN 25% INJ 100 ML IV PRN (08:52)
[2017-04-23 09:30] LABS: INTERNATIONAL NORMALIZED RATIO 1.8 RATIO; PROTHROMBIN TIME - PATIENT 18.7 SEC (9.8-11.6)
--- NOTE | 2017-04-23 13:08 | HHI.PR ---
Subjective Remarks States she would like a regular diet. C/O same abdominal discomfort. Unchanged. Objective Vitals Vital Signs Date Time Temp Pulse Resp B/P (MAP) Pulse Ox O2 Delivery O2 Flow Rate FiO2 04/23/17 09:53 Room Air 04/23/17 08:00 70 04/23/17 04:02 63 04/23/17 04:00 Room Air 04/23/17 02:59 17 04/23/17 00:02 58 04/23/17 00:00 98.1 63 16 103/52 (69) 100 04/23/17 00:00 Room Air 04/22/17 21:00 Room Air 04/22/17 20:03 55 04/22/17 20:00 97.8 56 18 130/50 (76) 100 04/22/17 16:07 98.0 56 22 131/61 (84) 100 04/22/17 16:00 56 I/O 04/22/17 04/22/17 04/22/17 04/23/17 04/23/17 04/23/17 07:00 15:00 23:00 07:00 15:00 23:00 Intake Total 240 ml 480 ml 240 ml Output Total 1300 ml 500 ml 500 ml 2000 ml Balance -1060 ml -20 ml -260 ml -2000 ml Intake Oral 240 ml 480 ml 240 ml Output Urine Total 550 ml 500 ml 500 ml Stool Total 750 ml Hemodialysis 2000 ml # Bowel Movements 0 0 Result Diagram: 04/21/1764104/21/17641 Objective Remarks GENERAL: Morbid obese patient in no acute distress. SKIN: There is extensive obesity, redundant skin, left upper and lower abdomen has a couple of subcutaneous lumps but no fluctuance. Left lower quadrant has open wound, appear to be chronic. Multiple areas of chronic wounds including on the pannus of the stomach, bilateral thighs, and the sacrum. CARDIOVASCULAR: Regular rate and rhythm. No murmur appreciated. RESPIRATORY: No accessory muscle use. Clear to auscultation. Breath sounds equal bilaterally. GASTROINTESTINAL: Abdomen soft, non-tender, nondistended. Ostomy in place. Multiple dressed wounds. 2 tender spots on the left lower quadrant with induration no redness or swelling MUSCULOSKELETAL: No obvious deformities. Some chronic edema in the lower extremities. Extensive chronic skin changes and chronic wounds in both lower extremities. NEUROLOGICAL: Awake and alert. No obvious cranial nerve deficits. PSYCHIATRIC: Appropriate mood and affect. Procedures HD A/P Problem List: (1) Hyperkalemia ICD Code: E87.5 - Hyperkalemia Status: Acute (2) End stage kidney disease ICD Code: N18.6 - End stage renal disease Status: Chronic Assessment and Plan Chronically ill 56-year-old female with past medical history of ESRD on HD, HLD , CHF, anxiety, DM, hypothyroidism, kidney, chronic wounds, chronic indwelling Ruiz who came to ER with nausea, vomit and missed hemodialysis for one week Coagulopathy secondary to Coumadin INR 7.2 resolved status post vitamin K. Coumadin restarted given history of DVT. Follow INR. Nausea and vomiting and hypokalemia secondary to uremia from missed hemodialysis. Improved continue hemodialysis per nephrology. Abdominal wound, leg wounds, present on admission. Chronic wounds: Patient was receiving Bactrim and Diflucan for infected wounds. Patient without fever and leukocytosis. Abdominal lumps. Ultrasound negative for abscess or mass. 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 Surgery consulted for biopsy. Continue to monitor. Wound care consulted. On antibiotics per ID for resistant UTI. Complicated UTI Ruiz catheter was replaced toward 12/2017. Urine growing ESBL and Pseudomonas. Discuss with ID. Patient started on ertapenem and tobramycin. - Repeat urine cultures on 04/24/17. Continue to monitor. Diabetes mellitus: Stable monitor fingersticks with sliding scale coverage COPD: Not currently in exacerbation Hypothyroidism: Chronic. Continue Hormonal replacement Morbid obesity strongly recommended diet and exercise. Non compliance issues. Counseled DVT prophylaxis: on Coumadin. Discharge Planning Continue IV abx. Follow repeat urine culture. Tila Beckwith MD Apr 23, 2017 13:08
--- NOTE | 2017-04-23 15:22 | PD.WCN.NOT ---
Wound Consult Description: wound consult ordered by for left lower abdomen/lower extremities Communicated with: Myriam BINGHAM 4rt , Recommendation: 1) Encourage patient to reposition every 2 hours for comfort and offloading 2) Provide 1 time Hibiclens sponge bath to full body removing all old dressings.Rise thoroughly.Pat all skin fold dry. 3) Premedicate patient prior to dressing changes 4) Cleanse all open areas with normal saline pat dry skin prep periwound. 5) Apply adaptic gauze cut to fit wound bed cover with dry dressing 6) Change dressing every other day or as needed for dislodgement/exudate 7) Apply Medline antifungal power to skin fold.Please clean old off before applying new.Daily Additional Information: Patient was sen today on [address] by life insurance underwriter and Yani BINGHAM 4 [address].Patient alert and oriented x3 in bed upon arrival.Patient states multiple chronic open wounds to lower extremities upon assessment patient has dressing x5 on lower extremities in which she states should have been changed Friday.[facility] performs wound care to bilateral lower extremities using Medihoney and boarder gauze.Patient refused for life insurance underwriter to remove any dressings stated she is just in to much pain and no Medihoney available.Patient was medicated 45min prior to writers arrival with Balm 10mg.Patient states pain medication is non affective.Functional Analyst attempted to remove dressing to Left lower abdomen was able to partial remove and visualized 2 open areas that appear to have red tissue growth to wound bases.Patient then refused for life insurance underwriter to go any further and to come back on different day.Patient has strong yeast odor moisture/erythema noted to abdominal skin fold and groin skin folds.Patient refuses skin care at this time.Functional Analyst spoke with regarding wound assessment order for standard wound care to be performed.Patient will continue under Hospice care when discharged. K[facility] Deluca [facility] Apr 23, 2017 15:21
[2017-04-23] MEDS: WARFARIN SOD 4 MG TAB PO SCH (16:06)
--- NOTE | 2017-04-23 17:37 | PD.CONS ---
cc: Duran Medina MD [facility] Service General Surgery Consult Requested By Dr. Jimenez Reason for Consult skin biopsy Primary Care Physician Aline Velarde MD History of Present Illness This is a 56-year-old female with a past medical history of end-stage renal disease on hemodialysis, congestive heart failure, hyperlipidemia, anxiety, diabetes, hypothyroidism, DVTs on Coumadin, history of C. difficile infection and depression. The patient came to the emergency department several days ago with complaints of abdominal pain with associated nausea vomiting. She is quite debilitated at her baseline and unable to walk. She reports she's had chronic wounds for several months now they are being treated by the home health nurse. 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 A General Surgery consultation has been requested for skin biopsy. Review of Systems Constitutional: COMPLAINS OF: Fatigue, DENIES: Chills, Change in appetite Endocrine: DENIES: Heat/cold intolerance Eyes: DENIES: Diplopia Ears, nose, mouth, throat: DENIES: Hearing loss Respiratory: DENIES: Apneas Cardiovascular: DENIES: Chest pain Gastrointestinal: COMPLAINS OF: Abdominal pain, Nausea, Vomiting Genitourinary: DENIES: Urinary incontinence Musculoskeletal: DENIES: Joint pain Integumentary: DENIES: Abnormal pigmentation Hematologic/lymphatic: DENIES: Bruising Immunologic/allergic: DENIES: Eczema Neurologic: DENIES: Abnormal gait, Headache Psychiatric: DENIES: Confusion, Mood changes, Depression Past Family Social History Past Medical History End-stage renal disease on hemodialysis Congestive heart failure Dyslipidemia Anxiety Diabetes Hypothyroidism Chronic wounds DVT on Coumadin History of C. 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 multivitamin infusion, adult no.4 with vitamin K (Verified Adverse Reaction, Severe, Constipation, 01/03/17) multivitamin with iron,other minerals (Verified Adverse Reaction, Severe, Constipation, 01/03/17) *MDRO Multi-Drug Resistant Organism (Verified Adverse Reaction, Unknown, VRE, MRSA, MDR-Pseudomonas, 09/02/16) VRE (abdominal wound) - 07/09/16 MDR-Pseudomonas (abdominal wound) - 07/09/16 MRSA (abdomen wound) - 08/28/16 Active Ordered Medications Current Medications Medications (Trade) Dose Ordered Sig/Soren Route Start Time Stop Time Status Last Admin (NS Flush) 2 ml UNSCH PRN IV FLUSH 04/19/17 13:15 (NS Flush) 2 ml BID IV FLUSH 04/19/17 21:00 04/23/17 08:20 (Tylenol) 650 mg Q4H PRN PO 04/19/17 13:15 (Zofran Inj) 4 mg Q6H PRN IVP 04/19/17 13:15 04/23/17 16:07 (Narcan Inj) 0.4 mg UNSCH PRN IV PUSH 04/19/17 13:15 (Senokot) 17.2 mg Q12H PRN PO 04/19/17 13:15 (Dulcolax Supp) 10 mg DAILY PRN RECTAL 04/19/17 13:15 (Lactulose Liq) 30 ml DAILY PRN PO 04/19/17 13:15 (Xanax) 0.25 mg Q6H PRN PO 04/19/17 13:15 04/22/17 00:33 (Lipitor) 40 mg HS PO 04/19/17 21:00 04/22/17 20:55 (Diflucan) 50 mg DAILY PO 04/20/17 09:00 04/23/17 08:17 (Neurontin) 100 mg BID PO 04/19/17 21:00 04/23/17 08:17 ([place] 10-325 Mg) 1 tab Q6H PRN PO 04/19/17 13:15 04/23/17 12:10 (Synthroid) 150 mcg DAILY@0600 PO 04/20/17 06:00 04/23/17 05:54 (Ditropan) 5 mg Q12HR PO 04/19/17 21:00 04/23/17 08:17 (Paxil) 40 mg DAILY PO 04/20/17 09:00 04/23/17 08:17 (SEROquel) 25 mg TID PO 04/19/17 18:00 04/23/17 12:10 (Zanaflex) 4 mg TID PO 04/19/17 18:00 04/23/17 12:10 (Pill Splitter) 1 ea UNSCH PRN OTHER 04/19/17 13:45 (NovoLOG SUPPLEMENTAL SCALE) 1 ACHS SLIDING SCALE SQ 04/19/17 17:00 04/22/17 20:56 Sodium Chloride 1,000 ml @ 0 mls/hr Q0M PRN OTHER 04/19/17 14:14 (Heparin Inj) 8,000 units UNSCH PRN IV FLUSH 04/19/17 14:15 Sodium Chloride 1,000 ml @ 200 mls/hr Q5H PRN IV 04/19/17 14:14 Sodium Chloride 1,000 ml @ 0 mls/hr Q0M PRN OTHER 04/19/17 14:14 (Mannitol Inj) 12.5 gm UNSCH PRN IV 04/19/17 14:15 Albumin Human 100 ml @ 60 mls/hr UNSCH PRN IV 04/19/17 14:15 04/23/17 08:52 (NS Flush) 5 ml UNSCH PRN IV FLUSH 04/19/17 14:15 (Heparin Inj) UNSCH PRN .XX 04/19/17 14:15 04/21/17 14:52 (Gentamicin Inj) 20 mg UNSCH PRN OTHER 04/19/17 14:15 04/21/17 14:52 (Zofran Inj) 4 mg UNSCH PRN IV PUSH 04/19/17 14:15 04/23/17 08:51 (Tylenol) 650 mg UNSCH PRN PO 04/19/17 14:15 (Benadryl) 25 mg UNSCH PRN PO 04/19/17 14:15 (Nitrostat Sl) 0.4 mg UNSCH PRN SL 04/19/17 14:15 (Catapres) 0.1 mg UNSCH PRN PO 04/19/17 14:15 (Epogen Inj) 10,000 units UNSCH PRN IV PUSH 04/19/17 14:15 04/21/17 15:42 (Gelfoam 12 Mm/7 Mm Top) 1 foam UNSCH PRN TOP 04/19/17 14:15 Pharmacy Profile Note 0 ml @ 0 mls/hr UNSCH OTHER 04/20/17 12:30 (Coumadin) 4 mg DAILY@1600 PO 04/20/17 16:00 04/23/17 16:06 (Tums Chew) 500 mg Q12HR CHEW 04/21/17 09:00 04/23/17 08:17 Ertapenem 500 mg/ Sodium Chloride 100 ml @ 200 mls/hr Q24H IV 04/22/17 18:00 04/22/17 17:31 Family History Noncontributory Social History Denies tobacco use Denies EtOH use Denies illicit drug use Physical Exam Vital Signs Vital Signs Date Time Temp Pulse Resp B/P (MAP) Pulse Ox O2 Delivery O2 Flow Rate FiO2 04/23/17 12:00 98.7 73 20 156/60 (92) 98 04/23/17 09:53 Room Air 04/23/17 08:00 70 04/23/17 04:02 63 04/23/17 04:00 Room Air 04/23/17 02:59 17 04/23/17 00:02 58 04/23/17 00:00 98.1 63 16 103/52 (69) 100 04/23/17 00:00 Room Air 04/22/17 21:00 Room Air 04/22/17 20:03 55 04/22/17 20:00 97.8 56 18 130/50 (76) 100 Physical Exam GENERAL: Chronically ill appeared 56 year old female who looks well older than her stated age resting in bed in no acute distress. SKIN: Multiple chronic wounds on abdomen and thighs. HEAD: Atraumatic. Normocephalic. EYES: Pupils equal and round. No scleral icterus. No injection or drainage. ENT: No nasal bleeding or discharge. Mucous membranes pink and moist. NECK: Trachea midline. CARDIOVASCULAR: Regular rate and rhythm. RESPIRATORY: No accessory muscle use. Clear to auscultation. Breath sounds equal bilaterally. GASTROINTESTINAL: Abdomen soft, obese; non distended. LLQ abdominal wound without any evidence of drainage. Colostomy without any stool in appliance. MUSCULOSKELETAL: Extremities without clubbing, cyanosis, or edema. No obvious deformities. NEUROLOGICAL: Awake and alert. No obvious cranial nerve deficits. Motor grossly within normal limits. Five out of 5 muscle strength in the arms and legs. Normal speech. PSYCHIATRIC: Appropriate mood and affect; insight and judgment normal. Laboratory Laboratory Tests Test 04/23/17 08:10 Prothrombin Time 18.7 Prothromb Time International Ratio 1.8 Date/Time Source Procedure Growth Status 04/19/17 11:20 Urine Clean Catch Urine Culture - Final Klebsiella Pneumoniae Esbl Pos Pseudomonas Aeruginosa Multi-Drug Resistant Complete Result Diagram: 04/21/1742 04/21/1742 Assessment and Plan Assessment and Plan 56 year old female with multiple medical problems; in need of skin biopsy to rule out calciphylaxis -Okay for renal diet -Will plan bedside skin biopsy tomorrow although I do believe this is a wound -Obtain consents -Obtain supplies -Thank you for this consult; We will continue to follow Patient seen and evaluated with [facility] who documented our visit.. Skin biopsy previously performed and was negative. Skin biopsy not indicated. DW patient who agrees. Will see prn, please call. DURAN MEDINA MD FACS Discussed Condition With Dr. Elodia Beckwith Ms. Og ArcosLaura [facility] Apr 23, 2017 17:37 Duran Medina MD May 02, 2017 14:11
[2017-04-23] MEDS ORDERED: LIDOCAINE 1%/EPINEPHrine 1:100,000 SOLN 20 ML VIAL INFIL ONE (17:45)
[2017-04-23] MEDS: ERTAPENEM INJ 500 MG in SODIUM CHLORIDE 0.9% INJ 100 ML IV SCH (18:08)
[2017-04-23] MEDS: ATORVASTATIN 40 MG TAB PO SCH (23:29)
[2017-04-24] VITALS (10 sets, daily range): BP systolic 94–165; BP diastolic 44–70; PULSE 57–66; RESP 16–18; TEMP 97.8–98.5; O2SAT 98–100
[2017-04-24] MEDS: LEVOTHYROXINE SODIUM 150 MCG TAB PO SCH (05:34)
[2017-04-24] MEDS: INSULIN ASPART SUPPLEMENTAL SCALE SQ SCH ×4 (07:57→22:40)
[2017-04-24] MEDS: CALCIUM CARBONATE 500 MG CHEWABLE TAB CHEW SCH ×2 (09:44→22:39)
[2017-04-24] MEDS: FLUCONAZOLE 100 MG TAB PO SCH (09:44)
[2017-04-24] MEDS: SODIUM CHLORIDE 0.9% FLUSH 10 ML FLUSH IV FLUSH SCH ×2 (09:44→22:39)
[2017-04-24] MEDS: GABAPENTIN 100 MG CAP PO SCH ×2 (09:45→22:39)
[2017-04-24] MEDS: OXYBUTYNIN CHLORIDE 5 MG TAB PO SCH ×2 (09:45→22:39)
[2017-04-24] MEDS: QUEtiapine FUMARATE 25 MG TAB PO SCH ×3 (09:45→16:06)
[2017-04-24] MEDS: PARoxetine HCL 20 MG TAB PO SCH (09:45)
[2017-04-24] MEDS: ACETAMINOPHEN/HYDROcodone 325 MG/10 MG TAB PO PRN ×2 (09:46→16:43)
--- NOTE | 2017-04-24 10:41 | HHI.NPPN ---
Subjective General Problems: Anemia Renal Failure: End Stage Renal Disease History of Present Illness This is a 56-year-old female with past medical history of diabetes mellitus, ischemic heart disease, hypertension, hyperlipidemia, anxiety disorder, hypothyroidism, morbid obesity, history of multiple abdomen and thigh wounds who came to the hospital with complaint of nausea, vomiting and generalized weakness.The patient has history of end-stage renal disease on hemodialysis Friday, and Friday but she has been missing her dialysis. The last time she was dialyzed was about a week ago. The patient has multiple wounds and she has been getting wound care at home. There is no history of fever but she has a Ruiz catheter and she has a colostomy. The patient denies any history of diarrhea but she has nausea and vomiting. She has been missing dialysis because of the pain that she gets and she is lifted by the [facility] for transportation. I suggested the possibility of home hemodialysis but the son does not think that he can help her with this. Additional Remarks Patient is alert, has mild abdominal discomfort, no SOB. Biopsy planned at bedside today (Betty Rose) Review of Systems Respiratory Respiratory Remarks Denies any SOb (Betty Rose) Cardiovascular Cardiac Remarks Denies any CP (Betty Rose) Gastrointestinal Gastrointestinal: Abdominal Pain GI Remarks tenderness noted on multiple areas on abdomen (Betty Rose) Objective Data Data Vital Signs Date Time Temp Pulse Resp B/P (MAP) Pulse Ox O2 Delivery O2 Flow Rate FiO2 04/24/17 08:00 98.3 63 16 157/70 (99) 99 04/24/17 07:42 Room Air 04/24/17 04:00 97.9 66 18 133/61 (85) 98 04/24/17 00:00 97.8 64 18 165/65 (98) 98 04/23/17 23:50 67 04/23/17 20:13 77 04/23/17 20:00 97.8 75 15 144/96 (112) 97 04/23/17 16:00 98.2 79 20 147/65 (92) 95 04/23/17 12:00 98.7 73 20 156/60 (92) 98 (Betty Rose) -: 04/21/17 0604/21/17 06 Physical Exam General Appearance: No Acute Distress, Malnourished (Betty Rose) Eyes Eye Exam: Pupils Equal (Betty Rose) Throat Throat Exam: Oral Mucosa Dwight & Moist (Betty Rose) Pulmonary Resp Exam: Clear Bilaterally, Breath Sounds Equal, No Distress (Betty Rose) Cardiology CV Exam: Regular, Normal Sinus Rhythm (Betty Rose) Gastrointestinal/Abdomen GI Exam: Non-Tender, Bowel Sounds Present GI Remarks colostomy (Betty Rose) Genitourinary Exam: Flank Non-Tender (Betty Rose) Integumentary Skin Exam: Ulcer(s) Skin Remarks Multiple areas of chronic wounds including on the pannus of the stomach, the lateral thigh on the left, thigh on the right, and the sacrum. Extensive chronic skin changes in both lower extremities. (Betty Rose) Neurologic Neuro Exam: Alert, Awake, Oriented (Betty Rose) Psychiatric Psych Exam: Appropriate Responses (Betty Rose) Assessment/Plan Discussed Condition With: Patient Assessment Summary: End Stage Renal Disease Problem List: (1) End stage kidney disease ICD Codes: N18.6 - End stage renal disease Status: Chronic Plan: Dialysis MWF Discussed with the patient and the family about the importance of continuing the dialysis regularly. Urine culture pending continue the antibiotic. HGB 7.6 receiving Epogen with dialysis Calcium level at 7.6 calcium carbonate added Seen by ID, has ESBL UTI on invanz Ruiz's catheter changed. Skin Biopsy for possible Calciphylaxis planned today at bedside (2) UTI (urinary tract infection) ICD Codes: N39.0 - Urinary tract infection, site not specified (3) Hyperkalemia ICD Codes: E87.5 - Hyperkalemia Status: Acute (4) Anemia in chronic kidney disease (CKD) ICD Codes: N18.9 - Chronic kidney disease, unspecified; D63.1 - Anemia in chronic kidney disease Status: Acute Plan: Resolved (5) Wounds, multiple ICD Codes: T07 - Unspecified multiple injuries Status: Acute (Betty Rose) Problem List: (1) End stage kidney disease ICD Codes: N18.6 - End stage renal disease Status: Chronic Plan: Dialysis MWF Discussed with the patient and the family about the importance of continuing the dialysis regularly. Urine culture pending continue the antibiotic. HGB 7.6 receiving Epogen with dialysis Calcium level at 7.6 calcium carbonate added Seen by ID, has ESBL UTI on invanz Ruiz's catheter changed. Skin Biopsy for possible Calciphylaxis planned. Patient seen and examined, agree with above. Po4 and PTH are normal. HD will be in AM. (2) UTI (urinary tract infection) ICD Codes: N39.0 - Urinary tract infection, site not specified (3) Hyperkalemia ICD Codes: E87.5 - Hyperkalemia Status: Acute (4) Anemia in chronic kidney disease (CKD) ICD Codes: N18.9 - Chronic kidney disease, unspecified; D63.1 - Anemia in chronic kidney disease Status: Acute Plan: Resolved (5) Wounds, multiple ICD Codes: T07 - Unspecified multiple injuries Status: Acute (Valentin Jimenez MD) Betty Rose Apr 24, 2017 10:41 Valentin Jimenez MD Apr 24, 2017 19:15
--- NOTE | 2017-04-24 11:22 | HHI.PR ---
Subjective Remarks Patient reports she is feeling okay. Complaining of same abdominal discomfort. Objective Vitals Vital Signs Date Time Temp Pulse Resp B/P (MAP) Pulse Ox O2 Delivery O2 Flow Rate FiO2 04/24/17 08:00 98.3 63 16 157/70 (99) 99 04/24/17 07:42 Room Air 04/24/17 04:00 97.9 66 18 133/61 (85) 98 04/24/17 00:00 97.8 64 18 165/65 (98) 98 04/23/17 23:50 67 04/23/17 20:13 77 04/23/17 20:00 97.8 75 15 144/96 (112) 97 04/23/17 16:00 98.2 79 20 147/65 (92) 95 04/23/17 12:00 98.7 73 20 156/60 (92) 98 I/O 04/23/17 04/23/17 04/23/17 04/24/17 04/24/17 04/24/17 07:00 15:00 23:00 07:00 15:00 23:00 Intake Total 240 ml 240 ml 240 ml Output Total 500 ml 2000 ml 600 ml 650 ml Balance -260 ml -2000 ml -360 ml -410 ml Intake Oral 240 ml 240 ml 240 ml Output Urine Total 500 ml 600 ml 650 ml Hemodialysis 2000 ml # Bowel Movements 0 0 Result Diagram: 04/21/17 0642 04/21/17 0642 Objective Remarks GENERAL: Morbid obese patient in no acute distress. SKIN: There is extensive obesity, redundant skin, left upper and lower abdomen has a couple of subcutaneous lumps but no fluctuance. Left lower quadrant has open wound, it is draining and foul smelling. Multiple areas of chronic wounds including on the pannus of the stomach, bilateral thighs, and the sacrum. CARDIOVASCULAR: Regular rate and rhythm. No murmur appreciated. RESPIRATORY: No accessory muscle use. Clear to auscultation. Breath sounds equal bilaterally. GASTROINTESTINAL: Abdomen soft, a few tender nodules over the left side of the abdomen. Left lower quadrant with an open wound that is draining. Skin fold with purulent and foul-smelling discharge. MUSCULOSKELETAL: No obvious deformities. Some chronic edema in the lower extremities. Extensive chronic skin changes and chronic wounds in both lower extremities. NEUROLOGICAL: Awake and alert. No obvious cranial nerve deficits. PSYCHIATRIC: Appropriate mood and affect. Procedures HD A/P Problem List: (1) Hyperkalemia ICD Code: E87.5 - Hyperkalemia Status: Acute (2) End stage kidney disease ICD Code: N18.6 - End stage renal disease Status: Chronic Assessment and Plan Chronically ill 56-year-old female with past medical history of ESRD on HD, HLD , CHF, anxiety, DM, hypothyroidism, kidney, chronic wounds, chronic indwelling Ruiz who came to ER with nausea, vomit and missed hemodialysis for one week Coagulopathy secondary to Coumadin INR 7.2 resolved status post vitamin K. Coumadin restarted given history of DVT. Follow INR. Nausea and vomiting and hypokalemia secondary to uremia from missed hemodialysis. Improved continue hemodialysis per nephrology. Abdominal wound, leg wounds, present on admission. Worsening: Patient was receiving Bactrim and Diflucan for infected wounds outpatient. Patient without fever and leukocytosis. Abdominal lumps. Ultrasound negative for abscess or mass. 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 Surgery consulted for biopsy but indicated biopsy is not needed. Wound care following. On antibiotics per ID. Zosyn added. Continue meropenem. Wound culture ordered. Complicated UTI Ruiz catheter was replaced toward 12/2017. Urine growing ESBL and Pseudomonas. Discuss with ID. Patient started on ertapenem and tobramycin. -Follow repeat urine cultures on 04/24/17. Continue to monitor. Diabetes mellitus: Stable monitor fingersticks with sliding scale coverage COPD: Not currently in exacerbation Hypothyroidism: Chronic. Continue Hormonal replacement Morbid obesity strongly recommended diet and exercise. Non compliance issues. Counseled DVT prophylaxis: on Coumadin. Discharge Planning Continue IV abx. Tila Beckwith MD Apr 24, 2017 11:22
--- NOTE | 2017-04-24 11:42 | HHI.PR ---
cc: Martin Clifton MD Subjective Subjective Notes Resting in bed No issues overnight Objective Vitals/I&O Vital Signs Date Time Temp Pulse Resp B/P (MAP) Pulse Ox O2 Delivery O2 Flow Rate FiO2 04/24/17 08:00 98.3 63 16 157/70 (99) 99 04/24/17 07:42 Room Air Labs Date/Time Source Procedure Growth Status 04/19/17 11:20 Urine Clean Catch Urine Culture - Final Klebsiella Pneumoniae Esbl Pos Pseudomonas Aeruginosa Multi-Drug Resistant Complete Cardiovascular: Regular Lungs: Clear Abdomen: Other (LLQ wound noted; colostomy in place ) Extremities: Other Narrative Exam multiple chronic wounds on BLE A/P Assessment and Plan 56 year old female with multiple medical problems; multiple wounds -After further discussion with patient--- will have wound care evaluate all her wounds -No need for skin biopsy at this time -Discussed with Annika Nurse [employer] of [facility] -General Surgery will sign off; Please call with questions Laura Arcos/[facility] ELLIOTT Apr 24, 2017 11:42
--- NOTE | 2017-04-24 14:57 | HHI.IDPN ---
Note Infectious Disease Note Patient without complaints. Notes pain at the abdomen. Left lower abdominal pain has foul pungent odor. Afebrile. Urine culture growing multiply resistant pseudomonas and Klebsiella ESBL. Ruiz has cloudy sediment. The patient presented to the emergency department with nausea and vomiting. She missed her last week of dialysis. She has end-stage renal disease and receives hemodialysis three times a week. The patient is morbidly obese. She states to me that she gets bladder spasms and she has some leakage around her Ruiz catheter which is in place for the urine. She has had the chronic Ruiz catheter for months. She states that it was last changed two weeks ago and that after she was admitted here this admission it was changed again. PAST MEDICAL HISTORY 1. C. difficile colitis. 2. Diabetes mellitus. 3. Hypertension. 4. Osteoarthritis. 5. Coronary artery disease. 6. End-stage renal disease. 7. Hypothyroidism. 8. Sleep apnea. 9. Spinal stenosis. PAST SURGICAL HISTORY 1. Laparoscopic cholecystectomy 1996. 2. Coronary artery stent. 3. Lap band 2004. 4. AV fistula. 5. Abdominal debridement and panniculectomy. ALLERGIES 1. CLARITHROMYCIN. 2. FERROUS FUMARATE. 3. FERROUS SULFATE. 4. FERUMOXYTOL. 5. IRON. 6. MORPHINE. 7. MULTIPLE VITAMINS WITH IRON. Current Medications Medications (Trade) Dose Ordered Sig/Soren Route PRN Reason Start Time Stop Time Status Last Admin Dose Admin Sodium Chloride (NS Flush) 2 ml UNSCH PRN IV FLUSH FLUSH AFTER USING IV ACCESS 04/19/17 13:15 Sodium Chloride (NS Flush) 2 ml BID IV FLUSH 04/19/17 21:00 04/24/17 09:44 Acetaminophen (Tylenol) 650 mg Q4H PRN PO TEMP > 100.4 04/19/17 13:15 Ondansetron HCl (Zofran Inj) 4 mg Q6H PRN IVP NAUSEA OR VOMITING 04/19/17 13:15 04/23/17 16:07 Naloxone HCl (Narcan Inj) 0.4 mg UNSCH PRN IV PUSH SEE LABEL COMMENTS 04/19/17 13:15 Sennosides (Senokot) 17.2 mg Q12H PRN PO Moderate constipation 04/19/17 13:15 Bisacodyl (Dulcolax Supp) 10 mg DAILY PRN RECTAL SEVERE CONSITIPATION 04/19/17 13:15 Lactulose (Lactulose Liq) 30 ml DAILY PRN PO SEVERE CONSITIPATION 04/19/17 13:15 Alprazolam (Xanax) 0.25 mg Q6H PRN PO ANXIETY 04/19/17 13:15 04/22/17 00:33 Atorvastatin Calcium (Lipitor) 40 mg HS PO 04/19/17 21:00 04/23/17 23:29 Fluconazole (Diflucan) 50 mg DAILY PO 04/20/17 09:00 04/24/17 09:44 Gabapentin (Neurontin) 100 mg BID PO 04/19/17 21:00 04/24/17 09:45 Acetaminophen/ Hydrocodone Bitart ([place] 10-325 Mg) 1 tab Q6H PRN PO PAIN 04/19/17 13:15 04/24/17 09:46 Levothyroxine Sodium (Synthroid) 150 mcg DAILY@0600 PO 04/20/17 06:00 04/24/17 05:34 Oxybutynin Chloride (Ditropan) 5 mg Q12HR PO 04/19/17 21:00 04/24/17 09:45 Paroxetine HCl (Paxil) 40 mg DAILY PO 04/20/17 09:00 04/24/17 09:45 Quetiapine Fumarate (SEROquel) 25 mg TID PO 04/19/17 18:00 04/24/17 13:41 Tizanidine HCl (Zanaflex) 4 mg TID PO 04/19/17 18:00 04/24/17 13:41 Miscellaneous (Pill Splitter) 1 ea UNSCH PRN OTHER SEE LABEL COMMENTS 04/19/17 13:45 Insulin Aspart (NovoLOG SUPPLEMENTAL SCALE) 1 ACHS SLIDING SCALE SQ 04/19/17 17:00 04/24/17 12:00 Sodium Chloride 1,000 ml @ 0 mls/hr Q0M PRN OTHER For Prime & Rinse Back 04/19/17 14:14 Heparin Sodium (Porcine) (Heparin Inj) 8,000 units UNSCH PRN IV FLUSH WITH DIALYSIS 04/19/17 14:15 Sodium Chloride 1,000 ml @ 200 mls/hr Q5H PRN IV WITH DIALYSIS 04/19/17 14:14 Sodium Chloride 1,000 ml @ 0 mls/hr Q0M PRN OTHER WITH DIALYSIS 04/19/17 14:14 Mannitol (Mannitol Inj) 12.5 gm UNSCH PRN IV WITH DIALYSIS 04/19/17 14:15 Albumin Human 100 ml @ 60 mls/hr UNSCH PRN IV WITH DIALYSIS 04/19/17 14:15 04/23/17 08:52 Sodium Chloride (NS Flush) 5 ml UNSCH PRN IV FLUSH WITH DIALYSIS 04/19/17 14:15 Heparin Sodium (Porcine) (Heparin Inj) UNSCH PRN .XX WITH DIALYSIS 04/19/17 14:15 04/21/17 14:52 Gentamicin Sulfate (Gentamicin Inj) 20 mg UNSCH PRN OTHER WITH DIALYSIS 04/19/17 14:15 04/21/17 14:52 Ondansetron HCl (Zofran Inj) 4 mg UNSCH PRN IV PUSH WITH DIALYSIS 04/19/17 14:15 04/23/17 23:28 Acetaminophen (Tylenol) 650 mg UNSCH PRN PO for headach, pain, temp > 101F 04/19/17 14:15 Diphenhydramine HCl (Benadryl) 25 mg UNSCH PRN PO for hives/itching/anaphylaxis 04/19/17 14:15 Nitroglycerin (Nitrostat Sl) 0.4 mg UNSCH PRN SL CHEST PAIN 04/19/17 14:15 Clonidine (Catapres) 0.1 mg UNSCH PRN PO for BP > 180/100 X 2 readings 04/19/17 14:15 Epoetin Porter (Epogen Inj) 10,000 units UNSCH PRN IV PUSH WITH DIALYSIS 04/19/17 14:15 04/21/17 15:42 Gelatin (Gelfoam 12 Mm/7 Mm Top) 1 foam UNSCH PRN TOP SEE LABEL COMMENTS 04/19/17 14:15 Pharmacy Profile Note 0 ml @ 0 mls/hr UNSCH OTHER 04/20/17 12:30 Warfarin Sodium (Coumadin) 4 mg DAILY@1600 PO 04/20/17 16:00 Future Hold 04/23/17 16:06 Calcium Carbonate (Tums Chew) 500 mg Q12HR CHEW 04/21/17 09:00 04/24/17 09:44 Ertapenem 500 mg/ Sodium Chloride 100 ml @ 200 mls/hr Q24H IV 04/22/17 18:00 04/23/17 18:08 OBJECTIVE: Vital Signs Date Time Temp Pulse Resp B/P (MAP) Pulse Ox O2 Delivery O2 Flow Rate FiO2 04/24/17 08:00 98.3 63 16 157/70 (99) 99 04/24/17 08:00 65 04/24/17 07:42 Room Air 04/24/17 04:00 97.9 66 18 133/61 (85) 98 04/24/17 00:00 97.8 64 18 165/65 (98) 98 04/23/17 23:50 67 04/23/17 20:13 77 04/23/17 20:00 97.8 75 15 144/96 (112) 97 04/23/17 16:00 98.2 79 20 147/65 (92) 95 IMAGING: Soft Tissue Ultrasound 04/21/17 0000 Signed Impressions: Service Date/Time: Friday, April 21, 2017 19:30 - CONCLUSION: 1. No mass or fluid collection identified in the area of palpable abnormality. Lucio Jacobs MD PHYSICAL EXAMINATION GENERAL: Alert and awake. No acute distress. HEENT: Head is atraumatic. Extraocular movements grossly intact. Pupils reactive to light. No icterus. No conjunctival erythema. Oropharynx moist mucosa without lesions. NECK: Supple without adenopathy. LUNGS: Clear breath sounds. HEART: Regular rate and rhythm without murmurs, rubs or gallops. ABDOMEN: Obese, soft. The patient has firm nodular lesions at the abdomen in two locations on the left upper quadrant and left lower quadrant which are tender and have mild erythema. one open ulcer at lower left abdominal fold apposing the thigh has very foul pungent odor. There is a dressing overlying another lesion which is at the lower left abdomen. The abdomen is obese. EXTREMITIES: No clubbing, cyanosis or edema. Chronic tree bark changes at the lower extremities and an ulceration of the right tibia which has a dressing over it. The skin has no diffuse rash. NEUROLOGIC: No gross focal findings. PSYCH: Pleasant, calm and cooperative. IMPRESSION 1. Urinary tract infection due to gram-negative bacteria. Klebsiella and pseudomonas. 2. 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 Ulcerated wound with drainage. Nodular skin lesions x 2 at abdomen. 3. End-stage renal disease. RECOMMENDATIONS 1. Continue Ertapenem. 2. Begin Zosyn. 3. Continue fluconazole. 4. Obtain wound culture of the lower abdomen ulcerated wound. 5. Follow the repeat the urine culture on 04/24/17. 6. Monitor clinical status. Chu Neville MD Apr 24, 2017 14:57
[2017-04-24 15:27] LABS: HEMATOCRIT 23.7 % (35.0-46.0); HEMOGLOBIN 7.7 GM/DL (11.6-15.3); MEAN CELL VOLUME 81.2 FL (80.0-100.0); MEAN CORPUSCULAR HEMOGLOBIN 26.3 PG (27.0-34.0); MEAN CORPUSCULAR HGB CONC 32.4 % (32.0-36.0); PLATELET COUNT 304 TH/MM3 (150-450); RED BLOOD COUNT 2.92 MIL/MM3 (4.00-5.30); RED CELL DISTRIBUTION WIDTH 16.9 % (11.6-17.2); WHITE BLOOD COUNT 7.9 TH/MM3 (4.0-11.0)
[2017-04-24 15:38] LABS: BICARBONATE 31.2 MEQ/L (21.0-32.0); CALCIUM 8.1 MG/DL (8.5-10.1); CREATININE 3.49 MG/DL (0.50-1.00)
[2017-04-24] MEDS: PIPERACIL-TAZO 2.25 GM PREMIX 50 ML IV SCH (16:06)
[2017-04-24 16:15] LABS: INTERNATIONAL NORMALIZED RATIO 2.6 RATIO; PROTHROMBIN TIME - PATIENT 25.8 SEC (9.8-11.6)
[2017-04-24] MEDS: ERTAPENEM INJ 500 MG in SODIUM CHLORIDE 0.9% INJ 100 ML IV SCH (16:43)
[2017-04-24] MEDS: ATORVASTATIN 40 MG TAB PO SCH (22:39)
[2017-04-25] VITALS (8 sets, daily range): BP systolic 91–130; BP diastolic 38–58; PULSE 55–68; RESP 17–20; TEMP 98.1–98.6; O2SAT 97–100
[2017-04-25] MEDS: PIPERACIL-TAZO 2.25 GM PREMIX 50 ML IV SCH ×4 (00:05→23:10)
[2017-04-25] MEDS: LEVOTHYROXINE SODIUM 150 MCG TAB PO SCH (05:17)
[2017-04-25] MEDS: ACETAMINOPHEN/HYDROcodone 325 MG/10 MG TAB PO PRN ×3 (05:17→17:33)
[2017-04-25] MEDS: INSULIN ASPART SUPPLEMENTAL SCALE SQ SCH ×4 (08:00→21:00)
[2017-04-25] MEDS: QUEtiapine FUMARATE 25 MG TAB PO SCH ×3 (09:46→17:33)
[2017-04-25] MEDS: CALCIUM CARBONATE 500 MG CHEWABLE TAB CHEW SCH ×2 (09:46→21:34)
[2017-04-25] MEDS: SODIUM CHLORIDE 0.9% FLUSH 10 ML FLUSH IV FLUSH SCH ×2 (09:47→21:00)
[2017-04-25] MEDS: FLUCONAZOLE 100 MG TAB PO SCH (09:47)
[2017-04-25] MEDS: GABAPENTIN 100 MG CAP PO SCH ×2 (09:47→21:35)
[2017-04-25] MEDS: OXYBUTYNIN CHLORIDE 5 MG TAB PO SCH ×2 (09:47→21:34)
[2017-04-25] MEDS: PARoxetine HCL 20 MG TAB PO SCH (09:47)
[2017-04-25 11:00] LABS: INTERNATIONAL NORMALIZED RATIO 2.2 RATIO; PROTHROMBIN TIME - PATIENT 21.9 SEC (9.8-11.6)
--- NOTE | 2017-04-25 11:00 | HHI.PR ---
Subjective Remarks Patient seen during dialysis, She reports abdominal pain. No other issues. Objective Vitals Vital Signs Date Time Temp Pulse Resp B/P (MAP) Pulse Ox O2 Delivery O2 Flow Rate FiO2 04/25/17 08:01 Room Air 04/25/17 08:01 67 04/25/17 08:00 98.2 66 20 130/58 (82) 100 04/25/17 04:58 98.2 63 18 119/58 (78) 98 04/25/17 03:42 62 04/25/17 00:00 Room Air 04/24/17 23:43 60 04/24/17 23:36 98.1 62 18 114/52 (72) 99 04/24/17 20:38 97.9 58 18 94/44 (61) 99 04/24/17 19:47 57 04/24/17 19:00 Room Air 04/24/17 17:00 59 04/24/17 16:00 98.5 64 18 110/59 (76) 100 04/24/17 12:00 60 04/24/17 12:00 97.9 61 18 117/50 (72) 99 I/O 04/24/17 04/24/17 04/24/17 04/25/17 04/25/17 04/25/17 07:00 15:00 23:00 07:00 15:00 23:00 Intake Total 240 ml 480 ml 50 ml Output Total 650 ml 250 ml 50 ml Balance -410 ml 230 ml 0 ml Intake Oral 240 ml 480 ml 0 ml IV Total 50 ml Output Urine Total 650 ml 250 ml 50 ml # Bowel Movements 0 0 Result Diagram: 04/24/17 1430 04/24/17 1430 Objective Remarks GENERAL: Morbid obese patient in no acute distress. SKIN: There is extensive obesity, redundant skin, left upper and lower abdomen has a couple of subcutaneous lumps but no fluctuance. Left lower quadrant has open wound, dressing intact. Multiple areas of chronic wounds including on the pannus of the stomach, bilateral thighs, and the sacrum. CARDIOVASCULAR: Regular rate and rhythm. No murmur appreciated. RESPIRATORY: No accessory muscle use. Clear to auscultation. Breath sounds equal bilaterally. GASTROINTESTINAL: Abdomen soft, a few tender nodules over the left side of the abdomen. Left lower quadrant with an open wound. MUSCULOSKELETAL: No obvious deformities. Some chronic edema in the lower extremities. Extensive chronic skin changes and chronic wounds in both lower extremities. NEUROLOGICAL: Awake and alert. No obvious cranial nerve deficits. PSYCHIATRIC: Appropriate mood and affect. Procedures HD A/P Problem List: (1) Hyperkalemia ICD Code: E87.5 - Hyperkalemia Status: Acute (2) End stage kidney disease ICD Code: N18.6 - End stage renal disease Status: Chronic Assessment and Plan Chronically ill 56-year-old female with past medical history of ESRD on HD, HLD , CHF, anxiety, DM, hypothyroidism, kidney, chronic wounds, chronic indwelling Ruiz who came to ER with nausea, vomit and missed hemodialysis for one week Coagulopathy secondary to Coumadin INR 7.2 resolved status post vitamin K. Coumadin restarted given history of DVT. Follow INR. Nausea and vomiting and hypokalemia secondary to uremia from missed hemodialysis. Improved continue hemodialysis per nephrology. Abdominal wound, leg wounds, present on admission. Worsening: Patient was receiving Bactrim and Diflucan for infected wounds outpatient. Patient without fever and leukocytosis. Abdominal lumps. Ultrasound negative for abscess or mass. Surgery consulted for biopsy but indicated biopsy is not needed. Patient had previous abdominal wall biopsy that was negative for calciphylaxis, showed stasis dermatitis. Wound care following. On antibiotics per ID. Joannesyn. Continue meropenem. Wound culture pending - Oder Oxycodone for breakthrough pain. Complicated UTI Ruiz catheter was replaced toward 12/2017. Urine growing ESBL and Pseudomonas. Discuss with ID. Patient started on ertapenem and tobramycin. -Follow repeat urine cultures on 04/24/17. Continue to monitor. Diabetes mellitus: Stable monitor fingersticks with sliding scale coverage COPD: Not currently in exacerbation Hypothyroidism: Chronic. Continue Hormonal replacement Morbid obesity strongly recommended diet and exercise. Non compliance issues. Counseled DVT prophylaxis: on Coumadin. Discharge Planning Continue IV abx. Tila Beckwith MD Apr 25, 2017 11:00
[2017-04-25 11:12] LABS: BICARBONATE 29.3 MEQ/L (21.0-32.0); CALCIUM 8.4 MG/DL (8.5-10.1); CREATININE 3.8 MG/DL (0.50-1.00)
--- NOTE | 2017-04-25 12:31 | HHI.NPPN ---
Subjective General Problems: Anemia Renal Failure: End Stage Renal Disease History of Present Illness This is a 56-year-old female with past medical history of diabetes mellitus, ischemic heart disease, hypertension, hyperlipidemia, anxiety disorder, hypothyroidism, morbid obesity, history of multiple abdomen and thigh wounds who came to the hospital with complaint of nausea, vomiting and generalized weakness.The patient has history of end-stage renal disease on hemodialysis Friday, and Friday but she has been missing her dialysis. The last time she was dialyzed was about a week ago. The patient has multiple wounds and she has been getting wound care at home. There is no history of fever but she has a Ruiz catheter and she has a colostomy. The patient denies any history of diarrhea but she has nausea and vomiting. She has been missing dialysis because of the pain that she gets and she is lifted by the [employer] for transportation. I suggested the possibility of home hemodialysis but the son does not think that he can help her with this. Additional Remarks Patient is alert, has mild abdominal discomfort, no SOB. (Betty Rose) Review of Systems Respiratory Respiratory Remarks Denies any SOB (Betty Rose) Cardiovascular Cardiac Remarks Denies any CP (Betty Rose) Gastrointestinal Gastrointestinal: Abdominal Pain (Betty Rose) Objective Data Data Vital Signs Date Time Temp Pulse Resp B/P (MAP) Pulse Ox O2 Delivery O2 Flow Rate FiO2 04/25/17 08:01 Room Air 04/25/17 08:01 67 04/25/17 08:00 98.2 66 20 130/58 (82) 100 04/25/17 04:58 98.2 63 18 119/58 (78) 98 04/25/17 03:42 62 04/25/17 00:00 Room Air 04/24/17 23:43 60 04/24/17 23:36 98.1 62 18 114/52 (72) 99 04/24/17 20:38 97.9 58 18 94/44 (61) 99 04/24/17 19:47 57 04/24/17 19:00 Room Air 04/24/17 17:00 59 04/24/17 16:00 98.5 64 18 110/59 (76) 100 (Betty Rose) -: 04/24/17 1430 04/25/17 0753 Microbiology 04/24/17 Urine Culture, Received Pending 04/25/17 Gram Stain, Received Pending 04/25/17 Wound Culture, Received Pending (Betty Rose) Physical Exam General Appearance: No Acute Distress, Malnourished (Betty Rose) Eyes Eye Exam: Pupils Equal (Betty Rose) Throat Throat Exam: Oral Mucosa [place] & Moist (Betty Rose) Pulmonary Resp Exam: Clear Bilaterally, Breath Sounds Equal, No Distress (Betty Rose) Cardiology CV Exam: Regular, Normal Sinus Rhythm (Betty Rose) Gastrointestinal/Abdomen GI Exam: Non-Tender, Bowel Sounds Present GI Remarks colostomy Abdominal tenderness (Betty Rose) Genitourinary Exam: Flank Non-Tender (Betty Rose) Integumentary Skin Exam: Ulcer(s) Skin Remarks Multiple areas of chronic wounds including on the pannus of the stomach, the lateral thigh on the left, thigh on the right, and the sacrum. Extensive chronic skin changes in both lower extremities. (Betty Rose) Neurologic Neuro Exam: Alert, Awake, Oriented (Betty Rose) Psychiatric Psych Exam: Appropriate Responses (Betty Rose) Assessment/Plan Discussed Condition With: Patient Assessment Summary: End Stage Renal Disease Problem List: (1) End stage kidney disease ICD Codes: N18.6 - End stage renal disease Status: Chronic Plan: Dialysis MWF Discussed with the patient and the family about the importance of continuing the dialysis regularly. Urine culture pending continue the antibiotic. Calcium level at 7.6 calcium carbonate added Seen by ID, has ESBL UTI and wound infections on invanz/zosyn/diflucan Ruiz's catheter changed. Wound culture obtained Po4 and PTH are normal. HD today Epogen with dialysis labs pending for today (2) UTI (urinary tract infection) ICD Codes: N39.0 - Urinary tract infection, site not specified (3) Hyperkalemia ICD Codes: E87.5 - Hyperkalemia Status: Acute (4) Anemia in chronic kidney disease (CKD) ICD Codes: N18.9 - Chronic kidney disease, unspecified; D63.1 - Anemia in chronic kidney disease Status: Acute Plan: Resolved (5) Wounds, multiple ICD Codes: T07 - Unspecified multiple injuries Status: Acute (Betty Rose) Problem List: (1) End stage kidney disease ICD Codes: N18.6 - End stage renal disease Status: Chronic Plan: Dialysis MWF Discussed with the patient and the family about the importance of continuing the dialysis regularly. Urine culture pending continue the antibiotic. Calcium level at 7.6 calcium carbonate added Seen by ID, has ESBL UTI and wound infections on invanz/zosyn/diflucan Ruiz's catheter changed. Wound culture obtained Po4 and PTH are normal. HD today Epogen with dialysis labs pending for today. Patient seen and examined, agree with above. (2) UTI (urinary tract infection) ICD Codes: N39.0 - Urinary tract infection, site not specified (3) Hyperkalemia ICD Codes: E87.5 - Hyperkalemia Status: Acute (4) Anemia in chronic kidney disease (CKD) ICD Codes: N18.9 - Chronic kidney disease, unspecified; D63.1 - Anemia in chronic kidney disease Status: Acute Plan: Resolved (5) Wounds, multiple ICD Codes: T07 - Unspecified multiple injuries Status: Acute (Valentin Jimenez MD) Betty Rose Apr 25, 2017 12:31 Valentin Jimenez MD Apr 25, 2017 21:07
[2017-04-25 12:38] LABS: HEMATOCRIT 25.5 % (35.0-46.0); HEMOGLOBIN 8.1 GM/DL (11.6-15.3); MEAN CELL VOLUME 81.5 FL (80.0-100.0); MEAN CORPUSCULAR HGB CONC 31.9 % (32.0-36.0); MEAN PLATELET VOLUME 7.4 FL (7.0-11.0); PLATELET COUNT 293 TH/MM3 (150-450); RED BLOOD COUNT 3.13 MIL/MM3 (4.00-5.30); RED CELL DISTRIBUTION WIDTH 17.1 % (11.6-17.2)
--- NOTE | 2017-04-25 12:42 | HHI.IDPN ---
Note Infectious Disease Note Patient without complaints. Notes pain at the abdomen. Afebrile. Repeat urine culture pending. Abdominal wound culture pending. The patient presented to the emergency department with nausea and vomiting. She missed her last week of dialysis. She has end-stage renal disease and receives hemodialysis three times a week. The patient is morbidly obese. She states to me that she gets bladder spasms and she has some leakage around her Ruiz catheter which is in place for the urine. She has had the chronic Ruiz catheter for months. She states that it was last changed two weeks ago and that after she was admitted here this admission it was changed again. PAST MEDICAL HISTORY 1. C. difficile colitis. 2. Diabetes mellitus. 3. Hypertension. 4. Osteoarthritis. 5. Coronary artery disease. 6. End-stage renal disease. 7. Hypothyroidism. 8. Sleep apnea. 9. Spinal stenosis. PAST SURGICAL HISTORY 1. Laparoscopic cholecystectomy 1996. 2. Coronary artery stent. 3. Lap band 2004. 4. AV fistula. 5. Abdominal debridement and panniculectomy. ALLERGIES 1. CLARITHROMYCIN. 2. FERROUS FUMARATE. 3. FERROUS SULFATE. 4. FERUMOXYTOL. 5. IRON. 6. MORPHINE. 7. MULTIPLE VITAMINS WITH IRON. ANTIBIOTICS: Ertapenem Fluconazole. Zosyn. OBJECTIVE: Vital Signs Date Time Temp Pulse Resp B/P (MAP) Pulse Ox O2 Delivery O2 Flow Rate FiO2 04/25/17 08:01 Room Air 04/25/17 08:01 67 04/25/17 08:00 98.2 66 20 130/58 (82) 100 04/25/17 04:58 98.2 63 18 119/58 (78) 98 04/25/17 03:42 62 04/25/17 00:00 Room Air 04/24/17 23:43 60 04/24/17 23:36 98.1 62 18 114/52 (72) 99 04/24/17 20:38 97.9 58 18 94/44 (61) 99 04/24/17 19:47 57 04/24/17 19:00 Room Air 04/24/17 17:00 59 04/24/17 16:00 98.5 64 18 110/59 (76) 100 Laboratory Tests Test 04/24/17 14:30 04/25/17 12:25 White Blood Count 7.9 TH/MM3 7.9 TH/MM3 Red Blood Count 2.92 MIL/MM3 3.13 MIL/MM3 Hemoglobin 7.7 GM/DL 8.1 GM/DL Hematocrit 23.7 % 25.5 % Mean Corpuscular Volume 81.2 FL 81.5 FL Mean Corpuscular Hemoglobin 26.3 PG 26.0 PG Mean Corpuscular Hemoglobin Concent 32.4 % 31.9 % Red Cell Distribution Width 16.9 % 17.1 % Platelet Count 304 TH/MM3 293 TH/MM3 Mean Platelet Volume 8.0 FL 7.4 FL Laboratory Tests Test 04/24/17 14:30 04/25/17 12:25 Blood Urea Nitrogen 23 MG/DL 28 MG/DL Creatinine 3.49 MG/DL 3.80 MG/DL Random Glucose 198 MG/DL 72 MG/DL Calcium Level 8.1 MG/DL 8.4 MG/DL Phosphorus Level 4.0 MG/DL Sodium Level 135 MEQ/L 135 MEQ/L Potassium Level 4.0 MEQ/L 3.9 MEQ/L Chloride Level 98 MEQ/L 98 MEQ/L Carbon Dioxide Level 31.2 MEQ/L 29.3 MEQ/L Anion Gap 6 MEQ/L 8 MEQ/L Estimat Glomerular Filtration Rate 14 ML/MIN 12 ML/MIN Parathyroid Hormone (Intact) 64.6 PG/ML Microbiology Date/Time Source Procedure Growth Status 04/24/17 18:40 Urine Catheterized Urine Urine Culture Pending Received 04/25/17 10:00 Wound Abdomen Gram Stain Pending Received 04/25/17 10:00 Wound Abdomen Wound Culture Pending Received IMAGING: Soft Tissue Ultrasound 04/21/17 0000 Signed Impressions: Service Date/Time: Friday, April 21, 2017 19:30 - CONCLUSION: 1. No mass or fluid collection identified in the area of palpable abnormality. Lucio Jacobs MD PHYSICAL EXAMINATION GENERAL: Alert and awake. No acute distress. HEENT: Head is atraumatic. Extraocular movements grossly intact. Pupils reactive to light. No icterus. No conjunctival erythema. Oropharynx moist mucosa without lesions. NECK: Supple without adenopathy. LUNGS: Clear breath sounds. HEART: Regular rate and rhythm without murmurs, rubs or gallops. ABDOMEN: Obese, soft. The patient has firm nodular lesions at the abdomen in two locations on the left upper quadrant and left lower quadrant which are tender and have mild erythema. one open ulcer at lower left abdominal fold and at the thigh. The abdomen is obese. EXTREMITIES: No clubbing, cyanosis or edema. Chronic tree bark changes at the lower extremities and an ulceration of the right tibia which has a dressing over it. The skin has no diffuse rash. NEUROLOGIC: No gross focal findings. PSYCH: Pleasant, calm and cooperative. IMPRESSION 1. Urinary tract infection due to gram-negative bacteria. Klebsiella and pseudomonas. Repeat urine culture pending. 2. 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 Ulcerated wound with drainage. Nodular skin lesions x 2 at abdomen. 3. End-stage renal disease. RECOMMENDATIONS 1. Continue Ertapenem. 2. Continue Zosyn. 3. Continue fluconazole. 4. Monitor wound culture of the lower abdomen ulcerated wound. 5. Follow the repeat urine culture from 04/24/17. 6. Monitor clinical status. Chu Neville MD Apr 25, 2017 12:42
--- NOTE | 2017-04-25 12:58 | PD.WCN.NOT ---
Wound Consult Description: Follow up of previous wound care consult Communicated with: OTILIA Jenkins Patient Dr Beckwith Recommendation: *Encourage patient to reposition herself or assist patient in turning every 2 hours for comfort and offloading* 1) RIGHT MEDIAL THIGH/GROIN Daily: a. Use adhesive remover to remove dressing. b. Remove packing. c. Cleanse with NS and gauze. d. Gently and lightly repack wound with plain packing strip leaving a tail outside wound bed for easy removal. e. Cover with dry cover (bordered gauze or gauze secured with MEDFIX tape). 2) LEFT ANTERIOR UPPER THIGH/GROIN Daily: a. Use adhesive remover to remove dressing. b. Cleanse wound with NORMAL SALINE and gauze. c. Apply Santyl as ordered and cover with gauze and secure with MEDFIX tape 3) LEFT LOWER ABDOMEN Daily: a. Use adhesive remover to remove dressing. b. Cleanse wound with NORMAL SALINE and gauze. c. Apply Santyl as ordered and cover with gauze and secure with MEDFIX tape 4) LEFT LATERAL ABDOMEN INTERTRIGINOUS AREA BID: a. Antifungal powder 5) PERISTOMAL WOUNDS: a. Change 2 1/4" wafer every 5 days and PRN b. Remove wafer and Maxorb II from all 3 wounds c. Cleanse with NORMAL SALINE and pat dry d. Apply Maxorb II to all 3 wound beds e. Apply skin prep (Barrier Film) to intact skin surrounding stoma and allow to dry before placing a new 2 1/4" MOLDABLE wafer over stoma f. Apply gauze and MEDFIX tape to cover wound and Maxorb II located at 3 o' clock that is not covered by the new wafer. IF PATIENT IS NOT DISCHARGED OVER THE WEEKEND PLANNED, PLEASE ORDER K4 mattress via [employer] (if not available please obtain Advanced IV surface through [employer]) Additional Information: Patient seen on for abdominal wounds, peristomal wounds, and right anterior medial thigh wound. All dressings were removed using adhesive remover wipes. All wounds were cleansed with NS and gauze. Left lower abdomen is noted with ~70% black/yellow adherent slough and ~30% pink/white tissue measuring ~ 1cm x 3cm x slough. There is no active drainage noted and no odor present after cleansing. Periwound is indurated and per patient, extremely painful. Wound was covered with a dry cover after cleansing until orders could be obtained. Left lateral abdomen intertriginous area is noted with denuded erythematous skin that was cleansed, pat dry, and sprinkled with anti-fungal powder and left open to air. Right upper medial thigh/groin wound was cleansed with NS and gauze, measured ~0.8cm x 0.3cm x 1.2cm and was gently packed with plain packing strip with a tail left outside wound for easy removal. Periwound is indurated and noted with blanching erythema. Peristomal full thickness wounds measuring ~ 2.5cm x 3cm x <1cm are noted @ 3 o'clock, 6 o'clock, and 9 o'clock. All peristomal wound beds are noted with adipose tissue, pink tissue, and are moist without active drainage and without odor noted with cleansing. Peristomal wounds appear to be a mixture of moisture and adhesive related skin loss. Peristomal wounds @ 6 o'clock and 9 o'clock were covered with Maxorb II and secured with the new wafer. Peristomal wound @ 3 o'clock was covered with Maxorb II and secured partly with new wafer with the exposed portion further secured with gauze and MEDFIX tape. Orders were discussed with Dr Beckwith and the patient. All parties are in agreement with recommendations listed above. Please vocera shuttlecock feather trimmer for deterioration of wounds. Patient will be followed by shuttlecock feather trimmer weekly if patient is not discharged over the weekend as planned. Ostomy Type: Colostomy Educated patient on: Color of stoma should be pink or red, moist, and functioning with flatus daily and effluent at least Q2days. Additional information Wafer in size 2 1/4" obtained and placed on patient today 04/25/17 and may remain in place for 5 days unless leaking occurs. Pouch should be emptied when 1/2 full of effluent (stool). Carlota Oswald [facility] Apr 25, 2017 12:48
[2017-04-25 13:09] LABS: WHITE BLOOD COUNT 7.9 TH/MM3 (4.0-11.0)
[2017-04-25] MEDS ORDERED: WARFARIN SOD 3 MG TAB PO SCH (16:00)
[2017-04-25] MEDS: EPOETIN ALFA 10,000 UNITS/ML VIAL IV PUSH PRN (16:53)
[2017-04-25] MEDS: GENTAMICIN SULFATE 20 MG/2 ML VIAL OTHER PRN (16:54)
[2017-04-25] MEDS: HEPARIN SODIUM - IV 10,000 UNITS/10 ML VIAL PRN (16:54)
[2017-04-25] MEDS ORDERED: MORPHINE SULFATE 2 MG/ML INJ IV PUSH PRN (17:00)
[2017-04-25] MEDS: ERTAPENEM INJ 500 MG in SODIUM CHLORIDE 0.9% INJ 100 ML IV SCH (18:54)
[2017-04-25] MEDS: ATORVASTATIN 40 MG TAB PO SCH (21:35)
[2017-04-26] VITALS (9 sets, daily range): BP systolic 96–136; BP diastolic 50–59; PULSE 50–71; RESP 18–20; TEMP 97.9–98.6; O2SAT 97–98
[2017-04-26] MEDS: ACETAMINOPHEN/HYDROcodone 325 MG/10 MG TAB PO PRN ×2 (01:31→18:16)
[2017-04-26] MEDS: LEVOTHYROXINE SODIUM 150 MCG TAB PO SCH (05:56)
[2017-04-26] MEDS: INSULIN ASPART SUPPLEMENTAL SCALE SQ SCH ×4 (08:00→21:57)
[2017-04-26 08:18] LABS: INTERNATIONAL NORMALIZED RATIO 2.7 RATIO; PROTHROMBIN TIME - PATIENT 26.8 SEC (9.8-11.6)
[2017-04-26] MEDS: PIPERACIL-TAZO 2.25 GM PREMIX 50 ML IV SCH ×2 (10:49→17:56)
[2017-04-26] MEDS: PARoxetine HCL 20 MG TAB PO SCH (10:50)
[2017-04-26] MEDS: SODIUM CHLORIDE 0.9% FLUSH 10 ML FLUSH IV FLUSH SCH ×2 (10:50→21:57)
[2017-04-26] MEDS: OXYBUTYNIN CHLORIDE 5 MG TAB PO SCH ×2 (10:50→21:56)
[2017-04-26] MEDS: CALCIUM CARBONATE 500 MG CHEWABLE TAB CHEW SCH ×2 (10:50→21:56)
[2017-04-26] MEDS: FLUCONAZOLE 100 MG TAB PO SCH (10:50)
[2017-04-26] MEDS: QUEtiapine FUMARATE 25 MG TAB PO SCH ×3 (10:50→17:56)
[2017-04-26] MEDS: GABAPENTIN 100 MG CAP PO SCH ×2 (10:50→21:56)
[2017-04-26] MEDS: COLLAGENASE OINT 30 GM TUBE TOPICAL SCH (10:51)
[2017-04-26] MEDS ORDERED: WARFARIN SOD 1 MG TAB PO ONE (16:00)
--- NOTE | 2017-04-26 17:57 | HHI.NPPN ---
Subjective General Problems: Anemia Renal Failure: End Stage Renal Disease History of Present Illness This is a 56-year-old female with past medical history of diabetes mellitus, ischemic heart disease, hypertension, hyperlipidemia, anxiety disorder, hypothyroidism, morbid obesity, history of multiple abdomen and thigh wounds who came to the hospital with complaint of nausea, vomiting and generalized weakness.The patient has history of end-stage renal disease on hemodialysis Friday, and Friday but she has been missing her dialysis. The last time she was dialyzed was about a week ago. The patient has multiple wounds and she has been getting wound care at home. There is no history of fever but she has a Ruiz catheter and she has a colostomy. The patient denies any history of diarrhea but she has nausea and vomiting. She has been missing dialysis because of the pain that she gets and she is lifted by the [employer] for transportation. I suggested the possibility of home hemodialysis but the son does not think that he can help her with this. Additional Remarks Patient is alert, has mild abdominal discomfort, no SOB. Review of Systems Respiratory Respiratory Remarks Denies any SOB Cardiovascular Cardiac Remarks Denies any CP Gastrointestinal Gastrointestinal: Abdominal Pain Objective Data Data 04/26/17 04/27/17 19:00 07:00 Intake Total 200 ml Balance 200 ml Intake Oral 200 ml Vital Signs Date Time Temp Pulse Resp B/P (MAP) Pulse Ox O2 Delivery O2 Flow Rate FiO2 04/26/17 16:00 98.6 59 20 136/59 (84) 98 04/26/17 12:00 98.2 71 20 114/52 (72) 97 04/26/17 12:00 60 04/26/17 08:00 70 04/26/17 08:00 Room Air 04/26/17 08:00 98.3 67 20 117/50 (72) 98 04/26/17 04:23 98.2 67 18 96/50 (65) 98 04/26/17 04:21 Room Air 04/26/17 04:00 57 04/26/17 00:00 Room Air 04/26/17 00:00 57 04/25/17 23:55 98.1 62 18 95/47 (63) 98 04/25/17 20:00 Room Air 04/25/17 20:00 98.6 67 17 91/38 (55) 97 04/25/17 20:00 68 -: 04/25/17 1225 04/25/17 1225 Physical Exam General Appearance: No Acute Distress, Malnourished Eyes Eye Exam: Pupils Equal Throat Throat Exam: Oral Mucosa [place] & Moist Pulmonary Resp Exam: Clear Bilaterally, Breath Sounds Equal, No Distress Cardiology CV Exam: Regular, Normal Sinus Rhythm Gastrointestinal/Abdomen GI Exam: Non-Tender, Bowel Sounds Present Genitourinary Exam: Flank Non-Tender Integumentary Skin Exam: Ulcer(s) Neurologic Neuro Exam: Alert, Awake, Oriented Psychiatric Psych Exam: Appropriate Responses Assessment/Plan Discussed Condition With: Patient Assessment Summary: End Stage Renal Disease Problem List: (1) End stage kidney disease ICD Codes: N18.6 - End stage renal disease Status: Chronic Plan: Dialysis MWF Discussed with the patient and the family about the importance of continuing the dialysis regularly. Urine culture pending continue the antibiotic. Seen by ID, has ESBL UTI and wound infections on invanz/zosyn/diflucan Ruiz's catheter changed. Wound culture obtained Po4 and PTH are normal. HD today Epogen with dialysis HD MWF yesterday 2 L off (2) UTI (urinary tract infection) ICD Codes: N39.0 - Urinary tract infection, site not specified (3) Hyperkalemia ICD Codes: E87.5 - Hyperkalemia Status: Acute (4) Anemia in chronic kidney disease (CKD) ICD Codes: N18.9 - Chronic kidney disease, unspecified; D63.1 - Anemia in chronic kidney disease Status: Acute Plan: Resolved (5) Wounds, multiple ICD Codes: T07 - Unspecified multiple injuries Status: Acute Jessie Birmingham MD Apr 26, 2017 17:57
[2017-04-26] MEDS: ERTAPENEM INJ 500 MG in SODIUM CHLORIDE 0.9% INJ 100 ML IV SCH (18:16)
--- NOTE | 2017-04-26 21:21 | HHI.PR ---
Subjective Remarks Patient reports she is doing ok except for same abdominal discomfort at the wounds and back pain. Objective Vitals Vital Signs Date Time Temp Pulse Resp B/P (MAP) Pulse Ox O2 Delivery O2 Flow Rate FiO2 04/26/17 16:00 50 04/26/17 16:00 98.6 59 20 136/59 (84) 98 04/26/17 12:00 98.2 71 20 114/52 (72) 97 04/26/17 12:00 60 04/26/17 08:00 70 04/26/17 08:00 Room Air 04/26/17 08:00 98.3 67 20 117/50 (72) 98 04/26/17 04:23 98.2 67 18 96/50 (65) 98 04/26/17 04:21 Room Air 04/26/17 04:00 57 04/26/17 00:00 Room Air 04/26/17 00:00 57 04/25/17 23:55 98.1 62 18 95/47 (63) 98 I/O 04/25/17 04/25/17 04/25/17 04/26/17 04/26/17 04/26/17 07:00 15:00 23:00 07:00 15:00 23:00 Intake Total 50 ml 50 ml 150 ml 720 ml 200 ml Output Total 50 ml 2000 ml 450 ml Balance 0 ml 50 ml -1850 ml 270 ml 200 ml Intake Oral 0 ml 720 ml 200 ml IV Total 50 ml 50 ml 150 ml Output Urine Total 50 ml 450 ml Hemodialysis 2000 ml # Bowel Movements 0 0 Result Diagram: 04/25/17 1225 04/25/17 1225 Objective Remarks GENERAL: Morbid obese patient in no acute distress. SKIN: There is extensive obesity, redundant skin, left upper and lower abdomen has a couple of subcutaneous nodules but no fluctuance. Left lower quadrant has open wound, dressing intact. Multiple areas of chronic wounds including on the pannus of the stomach, bilateral thighs, and the sacrum. CARDIOVASCULAR: Regular rate and rhythm. No murmur appreciated. RESPIRATORY: No accessory muscle use. Clear to auscultation. Breath sounds equal bilaterally. GASTROINTESTINAL: Abdomen soft, a few tender nodules over the left side of the abdomen. Left lower quadrant with an open wound. MUSCULOSKELETAL: No obvious deformities. Some chronic edema in the lower extremities. Extensive chronic skin changes and chronic wounds in both lower extremities. NEUROLOGICAL: Awake and alert. No obvious cranial nerve deficits. PSYCHIATRIC: Appropriate mood and affect. Procedures HD A/P Problem List: (1) Hyperkalemia ICD Code: E87.5 - Hyperkalemia Status: Acute (2) End stage kidney disease ICD Code: N18.6 - End stage renal disease Status: Chronic Assessment and Plan Chronically ill 56-year-old female with past medical history of ESRD on HD, HLD , CHF, anxiety, DM, hypothyroidism, kidney, chronic wounds, chronic indwelling Ruiz who came to ER with nausea, vomit and missed hemodialysis for one week Coagulopathy secondary to Coumadin INR 7.2 resolved status post vitamin K. Coumadin restarted given history of DVT. Follow INR. Nausea and vomiting and hypokalemia secondary to uremia from missed hemodialysis. Improved continue hemodialysis per nephrology. Abdominal wound, leg wounds, present on admission. Worsening: Patient was receiving Bactrim and Diflucan for infected wounds outpatient. Patient without fever and leukocytosis. Abdominal lumps. Ultrasound negative for abscess or mass. Surgery consulted for biopsy but indicated biopsy is not needed. Patient had previous abdominal wall biopsy that was negative for calciphylaxis, showed stasis dermatitis. Wound care following. On antibiotics per ID. Joannesyn. Continue meropenem. Wound culture pending - Oxycodone for breakthrough pain. Complicated UTI Ruiz catheter was replaced toward 12/2017. Urine growing ESBL and Pseudomonas. Discuss with ID. Patient started on ertapenem and tobramycin. -Repeat urine cultures on 04/24/17 growing gram neg rene. Continue to monitor. Diabetes mellitus: Stable monitor fingersticks with sliding scale coverage COPD: Not currently in exacerbation Hypothyroidism: Chronic. Continue Hormonal replacement Morbid obesity strongly recommended diet and exercise. Non compliance issues. Counseled DVT prophylaxis: on Coumadin. Discharge Planning Continue IV abx. Tila Beckwith MD Apr 26, 2017 21:21
[2017-04-26] MEDS: ATORVASTATIN 40 MG TAB PO SCH (21:56)
[2017-04-27] VITALS (8 sets, daily range): BP systolic 105–154; BP diastolic 49–80; PULSE 50–67; RESP 16–20; TEMP 97.1–98.6; O2SAT 96–99
[2017-04-27] MEDS: PIPERACIL-TAZO 2.25 GM PREMIX 50 ML IV SCH ×3 (00:27→18:20)
[2017-04-27] MEDS: ACETAMINOPHEN/HYDROcodone 325 MG/10 MG TAB PO PRN ×4 (00:29→21:46)
[2017-04-27] MEDS: LEVOTHYROXINE SODIUM 150 MCG TAB PO SCH (06:30)
[2017-04-27 07:48] LABS: INTERNATIONAL NORMALIZED RATIO 3.2 RATIO; PROTHROMBIN TIME - PATIENT 31.9 SEC (9.8-11.6)
[2017-04-27] MEDS: INSULIN ASPART SUPPLEMENTAL SCALE SQ SCH ×4 (08:00→21:45)
[2017-04-27] MEDS: CALCIUM CARBONATE 500 MG CHEWABLE TAB CHEW SCH ×2 (09:28→21:46)
[2017-04-27] MEDS: GABAPENTIN 100 MG CAP PO SCH ×2 (09:29→21:46)
[2017-04-27] MEDS: FLUCONAZOLE 100 MG TAB PO SCH (09:29)
[2017-04-27] MEDS: SODIUM CHLORIDE 0.9% FLUSH 10 ML FLUSH IV FLUSH SCH ×2 (09:29→21:46)
[2017-04-27] MEDS: QUEtiapine FUMARATE 25 MG TAB PO SCH ×3 (09:29→18:21)
[2017-04-27] MEDS: COLLAGENASE OINT 30 GM TUBE TOPICAL SCH (09:29)
[2017-04-27] MEDS: OXYBUTYNIN CHLORIDE 5 MG TAB PO SCH ×2 (09:29→21:46)
[2017-04-27] MEDS: PARoxetine HCL 20 MG TAB PO SCH (09:29)
--- NOTE | 2017-04-27 14:34 | HHI.PR ---
Subjective Remarks Patient reports she is feeling okay. No new complaints. Objective Vitals Vital Signs Date Time Temp Pulse Resp B/P (MAP) Pulse Ox O2 Delivery O2 Flow Rate FiO2 04/27/17 12:00 98.6 58 20 135/80 (98) 96 04/27/17 08:00 98.3 64 20 110/53 (72) 99 04/27/17 04:00 98.6 67 16 115/51 (72) 99 04/27/17 03:47 56 04/27/17 00:00 97.1 64 16 105/49 (67) 98 04/26/17 23:48 55 04/26/17 20:30 Room Air 04/26/17 20:00 97.9 54 18 125/55 (78) 98 04/26/17 19:30 53 04/26/17 16:00 50 04/26/17 16:00 98.6 59 20 136/59 (84) 98 I/O 04/26/17 04/26/17 04/26/17 04/27/17 04/27/17 04/27/17 07:00 15:00 23:00 07:00 15:00 23:00 Intake Total 720 ml 200 ml 55 ml Output Total 450 ml 600 ml 450 ml Balance 270 ml 200 ml -545 ml -450 ml Intake Oral 720 ml 200 ml IV Total 55 ml Output Urine Total 450 ml 600 ml 450 ml # Bowel Movements 0 0 1 Result Diagram: 04/25/17 1225 04/25/17 1225 Objective Remarks GENERAL: Morbid obese patient in no acute distress. SKIN: There is extensive obesity, redundant skin, left upper and lower abdomen has a couple of subcutaneous nodules but no fluctuance. Left lower quadrant has open wound, dressing intact. Multiple areas of chronic wounds including on the pannus of the stomach, bilateral thighs, and the sacrum. CARDIOVASCULAR: Regular rate and rhythm. No murmur appreciated. RESPIRATORY: No accessory muscle use. Clear to auscultation. Breath sounds equal bilaterally. GASTROINTESTINAL: Abdomen soft, a few tender nodules over the left side of the abdomen. Left lower quadrant with an open wound. MUSCULOSKELETAL: No obvious deformities. Some chronic edema in the lower extremities. Extensive chronic skin changes and chronic wounds in both lower extremities. NEUROLOGICAL: Awake and alert. No obvious cranial nerve deficits. PSYCHIATRIC: Appropriate mood and affect. Procedures HD A/P Problem List: (1) Hyperkalemia ICD Code: E87.5 - Hyperkalemia Status: Acute (2) End stage kidney disease ICD Code: N18.6 - End stage renal disease Status: Chronic Assessment and Plan Chronically ill 56-year-old female with past medical history of ESRD on HD, HLD , CHF, anxiety, DM, hypothyroidism, kidney, chronic wounds, chronic indwelling Ruiz who came to ER with nausea, vomit and missed hemodialysis for one week Coagulopathy secondary to Coumadin INR 7.2 resolved status post vitamin K. Coumadin restarted given history of DVT. INR acceptable. Continue to follow Nausea and vomiting and hypokalemia secondary to uremia from missed hemodialysis. Resolved after dialysis restarted. Abdominal wound, leg wounds, present on admission. Worsening: Patient was receiving Bactrim and Diflucan for infected wounds outpatient. Patient without fever and leukocytosis. Abdominal lumps. Ultrasound negative for abscess or mass. Surgery consulted for biopsy but indicated biopsy is not needed. Patient had previous abdominal wall biopsy that was negative for calciphylaxis, showed stasis dermatitis. I offered the patient a CAT scan to further evaluate those subcutaneous nodules. However she refused citing claustrophobia. Wound care following. On antibiotics per ID. Joannesyn. Continue meropenem. Wound culture showing normal skin malvin. - Oxycodone for breakthrough pain. Complicated UTI Ruiz catheter was replaced toward 12/2017. Urine growing ESBL and Pseudomonas. Discussed with ID. Patient started on ertapenem and tobramycin. -Repeat urine cultures on 04/24/17 growing gram neg rene. Continue to monitor. Repeat another urine culture. Diabetes mellitus: Stable monitor fingersticks with sliding scale coverage COPD: Not currently in exacerbation Hypothyroidism: Chronic. Continue Hormonal replacement Morbid obesity strongly recommended diet and exercise. Non compliance issues. Counseled DVT prophylaxis: on Coumadin. Discharge Planning Continue IV abx. Tila Beckwith MD Apr 27, 2017 14:34
--- NOTE | 2017-04-27 16:21 | HHI.NPPN ---
Subjective General Problems: Anemia Renal Failure: End Stage Renal Disease History of Present Illness This is a 56-year-old female with past medical history of diabetes mellitus, ischemic heart disease, hypertension, hyperlipidemia, anxiety disorder, hypothyroidism, morbid obesity, history of multiple abdomen and thigh wounds who came to the hospital with complaint of nausea, vomiting and generalized weakness.The patient has history of end-stage renal disease on hemodialysis Friday, and Friday but she has been missing her dialysis. The last time she was dialyzed was about a week ago. The patient has multiple wounds and she has been getting wound care at home. There is no history of fever but she has a Ruiz catheter and she has a colostomy. The patient denies any history of diarrhea but she has nausea and vomiting. She has been missing dialysis because of the pain that she gets and she is lifted by the [employer] for transportation. I suggested the possibility of home hemodialysis but the son does not think that he can help her with this. Additional Remarks Patient is alert, has mild abdominal discomfort, no SOB. Review of Systems Respiratory Respiratory Remarks Denies any SOB Cardiovascular Cardiac Remarks Denies any CP Gastrointestinal Gastrointestinal: Abdominal Pain Objective Data Data 04/27/17 04/28/17 19:00 07:00 Output Total 450 ml Balance -450 ml Output Urine Total 450 ml # Bowel Movements 1 Vital Signs Date Time Temp Pulse Resp B/P (MAP) Pulse Ox O2 Delivery O2 Flow Rate FiO2 04/27/17 12:00 50 04/27/17 12:00 98.6 58 20 135/80 (98) 96 04/27/17 08:00 98.3 64 20 110/53 (72) 99 04/27/17 08:00 Room Air 04/27/17 04:00 98.6 67 16 115/51 (72) 99 04/27/17 03:47 56 04/27/17 00:00 97.1 64 16 105/49 (67) 98 04/26/17 23:48 55 04/26/17 20:30 Room Air 04/26/17 20:00 97.9 54 18 125/55 (78) 98 04/26/17 19:30 53 -: 04/25/17 1225 04/25/17 1225 Physical Exam General Appearance: No Acute Distress, Malnourished Eyes Eye Exam: Pupils Equal Throat Throat Exam: Oral Mucosa [place] & Moist Pulmonary Resp Exam: Clear Bilaterally, Breath Sounds Equal, No Distress Cardiology CV Exam: Regular, Normal Sinus Rhythm Gastrointestinal/Abdomen GI Exam: Non-Tender, Bowel Sounds Present Genitourinary Exam: Flank Non-Tender Integumentary Skin Exam: Ulcer(s) Neurologic Neuro Exam: Alert, Awake, Oriented Psychiatric Psych Exam: Appropriate Responses Assessment/Plan Discussed Condition With: Patient Assessment Summary: End Stage Renal Disease Problem List: (1) End stage kidney disease ICD Codes: N18.6 - End stage renal disease Status: Chronic Plan: Dialysis MWF Discussed with the patient and the family about the importance of continuing the dialysis regularly. Urine culture pending continue the antibiotic. Seen by ID, has ESBL UTI and wound infections on invanz/zosyn/diflucan Ruiz's catheter changed. Wound culture obtained Po4 and PTH are normal. HD today Epogen with dialysis HD MWF Friday [address] Jimenez to follow (2) UTI (urinary tract infection) ICD Codes: N39.0 - Urinary tract infection, site not specified (3) Hyperkalemia ICD Codes: E87.5 - Hyperkalemia Status: Acute (4) Anemia in chronic kidney disease (CKD) ICD Codes: N18.9 - Chronic kidney disease, unspecified; D63.1 - Anemia in chronic kidney disease Status: Acute Plan: Resolved (5) Wounds, multiple ICD Codes: T07 - Unspecified multiple injuries Status: Acute Jessie Birmingham MD Apr 27, 2017 16:21
[2017-04-27] MEDS: ERTAPENEM INJ 500 MG in SODIUM CHLORIDE 0.9% INJ 100 ML IV SCH (18:51)
[2017-04-27] MEDS: ATORVASTATIN 40 MG TAB PO SCH (21:46)
[2017-04-28] VITALS (10 sets, daily range): BP systolic 99–116; BP diastolic 43–61; PULSE 53–93; RESP 16–18; TEMP 97.8–98.8; O2SAT 96–99
[2017-04-28] MEDS: PIPERACIL-TAZO 2.25 GM PREMIX 50 ML IV SCH ×3 (00:01→18:45)
[2017-04-28] MEDS: LEVOTHYROXINE SODIUM 150 MCG TAB PO SCH (05:13)
[2017-04-28] MEDS: ACETAMINOPHEN/HYDROcodone 325 MG/10 MG TAB PO PRN ×3 (05:14→18:44)
[2017-04-28] MEDS: INSULIN ASPART SUPPLEMENTAL SCALE SQ SCH ×4 (08:00→21:00)
[2017-04-28] MEDS: OXYBUTYNIN CHLORIDE 5 MG TAB PO SCH ×2 (08:54→21:26)
[2017-04-28] MEDS: SODIUM CHLORIDE 0.9% FLUSH 10 ML FLUSH IV FLUSH SCH ×2 (08:54→21:26)
[2017-04-28] MEDS: QUEtiapine FUMARATE 25 MG TAB PO SCH ×3 (08:54→18:44)
[2017-04-28] MEDS: PARoxetine HCL 20 MG TAB PO SCH (08:54)
[2017-04-28] MEDS: GABAPENTIN 100 MG CAP PO SCH ×2 (08:54→21:26)
[2017-04-28] MEDS: CALCIUM CARBONATE 500 MG CHEWABLE TAB CHEW SCH ×2 (08:55→21:26)
[2017-04-28] MEDS: FLUCONAZOLE 100 MG TAB PO SCH (08:55)
[2017-04-28 09:24] LABS: HEMATOCRIT 27.1 % (35.0-46.0); HEMOGLOBIN 8.4 GM/DL (11.6-15.3); MEAN CELL VOLUME 82.4 FL (80.0-100.0); MEAN CORPUSCULAR HEMOGLOBIN 25.4 PG (27.0-34.0); MEAN CORPUSCULAR HGB CONC 30.8 % (32.0-36.0); MEAN PLATELET VOLUME 7.5 FL (7.0-11.0); PLATELET COUNT 289 TH/MM3 (150-450); RED CELL DISTRIBUTION WIDTH 16.9 % (11.6-17.2); WHITE BLOOD COUNT 7.7 TH/MM3 (4.0-11.0)
[2017-04-28 09:31] LABS: INTERNATIONAL NORMALIZED RATIO 3.5 RATIO; PROTHROMBIN TIME - PATIENT 35.3 SEC (9.8-11.6)
[2017-04-28 09:55] LABS: CREATININE 4.42 MG/DL (0.50-1.00)
--- NOTE | 2017-04-28 10:32 | HHI.NPPN ---
Subjective General Problems: Anemia Renal Failure: End Stage Renal Disease History of Present Illness This is a 56-year-old female with past medical history of diabetes mellitus, ischemic heart disease, hypertension, hyperlipidemia, anxiety disorder, hypothyroidism, morbid obesity, history of multiple abdomen and thigh wounds who came to the hospital with complaint of nausea, vomiting and generalized weakness.The patient has history of end-stage renal disease on hemodialysis Friday, and Friday but she has been missing her dialysis. The last time she was dialyzed was about a week ago. The patient has multiple wounds and she has been getting wound care at home. There is no history of fever but she has a Ruiz catheter and she has a colostomy. The patient denies any history of diarrhea but she has nausea and vomiting. She has been missing dialysis because of the pain that she gets and she is lifted by the [employer] for transportation. I suggested the possibility of home hemodialysis but the son does not think that he can help her with this. Additional Remarks Patient is alert, No SOB. Reports fatigue (Betty Rose) Review of Systems General Constitutional: Fatigue (Betty Rose) Respiratory Respiratory Remarks Denies any SOB (Betty Rose) Cardiovascular Cardiac Remarks Denies any CP (Betty Rose) Objective Data Data Vital Signs Date Time Temp Pulse Resp B/P (MAP) Pulse Ox O2 Delivery O2 Flow Rate FiO2 04/28/17 08:50 Room Air 04/28/17 08:00 98.2 63 18 99/43 (61) 98 04/28/17 04:00 98.8 60 16 108/50 (69) 98 04/28/17 03:54 58 04/28/17 00:14 98.5 58 18 104/61 (75) 97 04/28/17 00:00 55 04/27/17 21:53 97.9 55 16 154/67 (96) 99 04/27/17 20:45 Room Air 04/27/17 19:52 53 04/27/17 16:00 98.6 56 20 111/49 (69) 99 04/27/17 16:00 58 04/27/17 12:00 50 04/27/17 12:00 98.6 58 20 135/80 (98) 96 (Betty Rose) -: 04/28/17 0903 04/28/17 0903 Physical Exam General Appearance: No Acute Distress, Obese (Betty Rose) Eyes Eye Exam: Pupils Equal (Betty Rose) Throat Throat Exam: Oral Mucosa [place] & Moist (Betty Rose) Pulmonary Resp Exam: Clear Bilaterally, Breath Sounds Equal, No Distress (Betty Rose) Cardiology CV Exam: Regular, Normal Sinus Rhythm (Betty Rose) Gastrointestinal/Abdomen GI Exam: Non-Tender, Bowel Sounds Present GI Remarks colostomy Abdominal tenderness (Betty Rose) Genitourinary Exam: Flank Non-Tender (Betty Rose) Integumentary Skin Exam: Ulcer(s) Skin Remarks Multiple areas of chronic wounds including on the pannus of the stomach, the lateral thigh on the left, thigh on the right, and the sacrum. Extensive chronic skin changes in both lower extremities. (Betty Rose) Neurologic Neuro Exam: Alert, Awake, Oriented (Betty Rose) Psychiatric Psych Exam: Appropriate Responses (Betty Rose) Assessment/Plan Discussed Condition With: Patient Assessment Summary: End Stage Renal Disease Problem List: (1) End stage kidney disease ICD Codes: N18.6 - End stage renal disease Status: Chronic Plan: Dialysis MWF Discussed with the patient and the family about the importance of continuing the dialysis regularly. ESBL UTI and wound infections on invanz/zosyn/diflucan per ID HGB 8.4 Epogen with dialysis Potassium and calcuim WNL Dialysis for today (2) UTI (urinary tract infection) ICD Codes: N39.0 - Urinary tract infection, site not specified (3) Hyperkalemia ICD Codes: E87.5 - Hyperkalemia Status: Acute (4) Anemia in chronic kidney disease (CKD) ICD Codes: N18.9 - Chronic kidney disease, unspecified; D63.1 - Anemia in chronic kidney disease Status: Acute Plan: Resolved (5) Wounds, multiple ICD Codes: T07 - Unspecified multiple injuries Status: Acute (Betty Rose) Problem List: (1) End stage kidney disease ICD Codes: N18.6 - End stage renal disease Status: Chronic Plan: Dialysis MWF Discussed with the patient and the family about the importance of continuing the dialysis regularly. ESBL UTI and wound infections on invanz/zosyn/diflucan per ID HGB 8.4 Epogen with dialysis Potassium and calcuim WNL Dialysis for today. Patient seen and examined, agree with above. (2) UTI (urinary tract infection) ICD Codes: N39.0 - Urinary tract infection, site not specified (3) Hyperkalemia ICD Codes: E87.5 - Hyperkalemia Status: Acute (4) Anemia in chronic kidney disease (CKD) ICD Codes: N18.9 - Chronic kidney disease, unspecified; D63.1 - Anemia in chronic kidney disease Status: Acute Plan: Resolved (5) Wounds, multiple ICD Codes: T07 - Unspecified multiple injuries Status: Acute (Valentin Jimenez MD) Betty Rose Apr 28, 2017 10:32 Valentin Jimenez MD Apr 28, 2017 20:52
--- NOTE | 2017-04-28 13:28 | HHI.PR ---
Subjective Remarks Patient reports she is feeling okay. No new issues. Afebrile. Objective Vitals Vital Signs Date Time Temp Pulse Resp B/P (MAP) Pulse Ox O2 Delivery O2 Flow Rate FiO2 04/28/17 12:00 98.4 54 18 111/46 (67) 99 04/28/17 08:50 Room Air 04/28/17 08:00 98.2 63 18 99/43 (61) 98 04/28/17 04:00 98.8 60 16 108/50 (69) 98 04/28/17 03:54 58 04/28/17 00:14 98.5 58 18 104/61 (75) 97 04/28/17 00:00 55 04/27/17 21:53 97.9 55 16 154/67 (96) 99 04/27/17 20:45 Room Air 04/27/17 19:52 53 04/27/17 16:00 98.6 56 20 111/49 (69) 99 04/27/17 16:00 58 I/O 04/27/17 04/27/17 04/27/17 04/28/17 04/28/17 04/28/17 07:00 15:00 23:00 07:00 15:00 23:00 Intake Total 55 ml Output Total 600 ml 450 ml Balance -545 ml -450 ml IV Total 55 ml Output Urine Total 600 ml 450 ml # Bowel Movements 0 1 Result Diagram: 04/28/1790204/28/17902 Objective Remarks GENERAL: Morbid obese patient in no acute distress. SKIN: There is extensive obesity, redundant skin, left upper and lower abdomen has a couple of subcutaneous nodules but no fluctuance. Left lower quadrant has open wound, dressing intact. Multiple areas of chronic wounds including on the pannus of the stomach, bilateral thighs, and the sacrum. CARDIOVASCULAR: Regular rate and rhythm. No murmur appreciated. RESPIRATORY: No accessory muscle use. Clear to auscultation. Breath sounds equal bilaterally. GASTROINTESTINAL: Abdomen soft, a few tender nodules over the left side of the abdomen. Left lower quadrant with an open wound. MUSCULOSKELETAL: No obvious deformities. Some chronic edema in the lower extremities. Extensive chronic skin changes and chronic wounds in both lower extremities. NEUROLOGICAL: Awake and alert. No obvious cranial nerve deficits. PSYCHIATRIC: Appropriate mood and affect. Procedures HD A/P Problem List: (1) Hyperkalemia ICD Code: E87.5 - Hyperkalemia Status: Acute (2) End stage kidney disease ICD Code: N18.6 - End stage renal disease Status: Chronic Assessment and Plan Chronically ill 56-year-old female with past medical history of ESRD on HD, HLD , CHF, anxiety, DM, hypothyroidism, kidney, chronic wounds, chronic indwelling Ruiz who came to ER with nausea, vomit and missed hemodialysis for one week Coagulopathy secondary to Coumadin INR 7.2 resolved status post vitamin K. Coumadin restarted given history of DVT. INR acceptable. Continue to follow Nausea and vomiting and hypokalemia secondary to uremia from missed hemodialysis. Resolved after dialysis restarted. Abdominal wound, leg wounds, present on admission. Worsening: Patient was receiving Bactrim and Diflucan for infected wounds outpatient. Patient without fever and leukocytosis. Abdominal lumps. Ultrasound negative for abscess or mass. Surgery consulted for biopsy but indicated biopsy is not needed. Patient had previous abdominal wall biopsy that was negative for calciphylaxis, showed stasis dermatitis. I offered the patient a CAT scan to further evaluate those subcutaneous nodules. However she refused citing claustrophobia. Wound care following. On antibiotics per ID. Zosyn. Continue meropenem. Wound culture showing normal skin malvin. - Oxycodone for breakthrough pain. Complicated UTI Ruiz catheter was replaced toward 12/2017. Urine growing ESBL and Pseudomonas. Discussed with ID. Patient started on ertapenem and tobramycin. -Repeat urine cultures on 04/24/17 growing gram neg rene. Continue to monitor. - Discussed with ID. Continue antibiotics. Repeat urine culture. Diabetes mellitus: Stable monitor fingersticks with sliding scale coverage COPD: Not currently in exacerbation Hypothyroidism: Chronic. Continue Hormonal replacement Morbid obesity strongly recommended diet and exercise. Non compliance issues. Counseled DVT prophylaxis: on Coumadin. Discharge Planning Continue IV abx. Tila Beckwith MD Apr 28, 2017 13:28
[2017-04-28] MEDS: COLLAGENASE OINT 30 GM TUBE TOPICAL SCH (14:54)
--- NOTE | 2017-04-28 18:34 | HHI.IDPN ---
Note Infectious Disease Note Patient without complaints. Notes pain at the abdomen. No new complaints. Afebrile. Repeat urine culture pending. Abdominal wound culture has nl skin malvin. The patient presented to the emergency department with nausea and vomiting. missed a week of dialysis. She has end-stage renal disease and receives hemodialysis three times a week. The patient is morbidly obese. She states to me that she gets bladder spasms and she has some leakage around her Ruiz catheter which is in place for the urine. She has had the chronic Ruiz catheter for months. She states that it was last changed two weeks ago and that after she was admitted here this admission it was changed again. PAST MEDICAL HISTORY 1. C. difficile colitis. 2. Diabetes mellitus. 3. Hypertension. 4. Osteoarthritis. 5. Coronary artery disease. 6. End-stage renal disease. 7. Hypothyroidism. 8. Sleep apnea. 9. Spinal stenosis. PAST SURGICAL HISTORY 1. Laparoscopic cholecystectomy 1996. 2. Coronary artery stent. 3. Lap band 2004. 4. AV fistula. 5. Abdominal debridement and panniculectomy. ALLERGIES 1. CLARITHROMYCIN. 2. FERROUS FUMARATE. 3. FERROUS SULFATE. 4. FERUMOXYTOL. 5. IRON. 6. MORPHINE. 7. MULTIPLE VITAMINS WITH IRON. ANTIBIOTICS: Ertapenem Fluconazole. Zosyn. OBJECTIVE: Vital Signs Date Time Temp Pulse Resp B/P (MAP) Pulse Ox O2 Delivery O2 Flow Rate FiO2 04/28/17 16:16 53 04/28/17 12:04 58 04/28/17 12:00 98.4 54 18 111/46 (67) 99 04/28/17 08:50 Room Air 04/28/17 08:00 98.2 63 18 99/43 (61) 98 04/28/17 07:57 64 04/28/17 04:00 98.8 60 16 108/50 (69) 98 04/28/17 03:54 58 04/28/17 00:14 98.5 58 18 104/61 (75) 97 04/28/17 00:00 55 04/27/17 21:53 97.9 55 16 154/67 (96) 99 04/27/17 20:45 Room Air 04/27/17 19:52 53 Laboratory Tests Test 04/28/17 09:03 White Blood Count 7.7 TH/MM3 Red Blood Count 3.30 MIL/MM3 Hemoglobin 8.4 GM/DL Hematocrit 27.1 % Mean Corpuscular Volume 82.4 FL Mean Corpuscular Hemoglobin 25.4 PG Mean Corpuscular Hemoglobin Concent 30.8 % Red Cell Distribution Width 16.9 % Platelet Count 289 TH/MM3 Mean Platelet Volume 7.5 FL Laboratory Tests Test 04/28/17 09:03 Blood Urea Nitrogen 43 MG/DL Creatinine 4.42 MG/DL Random Glucose 118 MG/DL Calcium Level 9.0 MG/DL Sodium Level 136 MEQ/L Potassium Level 3.8 MEQ/L Chloride Level 98 MEQ/L Carbon Dioxide Level 29.0 MEQ/L Anion Gap 9 MEQ/L Estimat Glomerular Filtration Rate 10 ML/MIN IMAGING: Soft Tissue Ultrasound 04/21/17 0000 Signed Impressions: Service Date/Time: Friday, April 21, 2017 19:30 - CONCLUSION: 1. No mass or fluid collection identified in the area of palpable abnormality. Lucio Jacobs MD PHYSICAL EXAMINATION GENERAL: Alert and awake. No acute distress. HEENT: No icterus. No conjunctival erythema. Oropharynx moist mucosa without lesions. NECK: Supple without adenopathy. LUNGS: Clear breath sounds. HEART: Regular rate and rhythm without murmurs, rubs or gallops. ABDOMEN: Obese, soft. The patient has firm nodular lesions at the abdomen in two locations on the left upper quadrant and left lower quadrant, less erythema. EXTREMITIES: No clubbing, cyanosis or edema. Chronic tree bark changes at the lower extremities and an ulceration of the right tibia which has a dressing over it. The skin has no diffuse rash. NEUROLOGIC: No gross focal findings. PSYCH: Pleasant, calm and cooperative. IMPRESSION 1. Urinary tract infection due to gram-negative bacteria. Klebsiella and pseudomonas. Repeat urine culture pending. 2. 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 Ulcerated wound with drainage - culture negative. 3. End-stage renal disease. RECOMMENDATIONS 1. Continue Ertapenem. 2. Continue Zosyn. 3. Continue fluconazole. 4. Monitor the urine culture and stop current antibiotic if negative. 5. May need to give empiric course of Doxycycline for the abdominal wall lesions. 6. Monitor clinical status. Chu Neville MD Apr 28, 2017 18:34
[2017-04-28] MEDS: ERTAPENEM INJ 500 MG in SODIUM CHLORIDE 0.9% INJ 100 ML IV SCH (21:26)
[2017-04-28] MEDS: ATORVASTATIN 40 MG TAB PO SCH (21:26)
[2017-04-29] VITALS (11 sets, daily range): BP systolic 107–169; BP diastolic 48–71; PULSE 53–69; RESP 18–20; TEMP 97.3–99.4; O2SAT 97–100
[2017-04-29] MEDS: PIPERACIL-TAZO 2.25 GM PREMIX 50 ML IV SCH ×3 (00:45→16:31)
[2017-04-29] MEDS: LEVOTHYROXINE SODIUM 150 MCG TAB PO SCH (06:00)
[2017-04-29] MEDS: ACETAMINOPHEN/HYDROcodone 325 MG/10 MG TAB PO PRN ×3 (06:03→18:51)
[2017-04-29] MEDS: SODIUM CHLORIDE 0.9% FLUSH 10 ML FLUSH IV FLUSH SCH ×2 (07:30→21:00)
[2017-04-29] MEDS: OXYBUTYNIN CHLORIDE 5 MG TAB PO SCH ×2 (07:45→22:03)
[2017-04-29] MEDS: QUEtiapine FUMARATE 25 MG TAB PO SCH ×3 (07:45→17:30)
[2017-04-29] MEDS: FLUCONAZOLE 100 MG TAB PO SCH (07:45)
[2017-04-29] MEDS: PARoxetine HCL 20 MG TAB PO SCH (07:45)
[2017-04-29] MEDS: GABAPENTIN 100 MG CAP PO SCH ×2 (07:45→22:03)
[2017-04-29] MEDS: CALCIUM CARBONATE 500 MG CHEWABLE TAB CHEW SCH ×2 (07:45→22:04)
[2017-04-29] MEDS: INSULIN ASPART SUPPLEMENTAL SCALE SQ SCH ×4 (07:46→21:00)
[2017-04-29] MEDS: COLLAGENASE OINT 30 GM TUBE TOPICAL SCH (07:46)
[2017-04-29 08:13] LABS: INTERNATIONAL NORMALIZED RATIO 3.1 RATIO; PROTHROMBIN TIME - PATIENT 31.1 SEC (9.8-11.6)
--- NOTE | 2017-04-29 11:47 | HHI.PR ---
Subjective Remarks no complains Objective Vitals Vital Signs Date Time Temp Pulse Resp B/P (MAP) Pulse Ox O2 Delivery O2 Flow Rate FiO2 04/29/17 11:42 99.1 58 20 169/71 (103) 98 04/29/17 07:43 99.3 68 20 151/56 (87) 97 04/29/17 04:00 97.3 63 18 147/57 (87) 100 04/29/17 04:00 Room Air 04/29/17 04:00 61 04/29/17 00:00 98.7 60 18 107/50 (69) 98 04/29/17 00:00 54 04/29/17 00:00 Room Air 04/28/17 20:00 61 04/28/17 20:00 97.8 93 18 116/49 (71) 96 04/28/17 20:00 Room Air 04/28/17 16:16 53 04/28/17 12:04 58 04/28/17 12:00 98.4 54 18 111/46 (67) 99 I/O 04/28/17 04/28/17 04/28/17 04/29/17 04/29/17 04/29/17 07:00 15:00 23:00 07:00 15:00 23:00 Intake Total 50 ml 100 ml 50 ml 50 ml Output Total 1000 ml 650 ml Balance 50 ml -900 ml -600 ml 50 ml IV Total 50 ml 100 ml 50 ml 50 ml Output Urine Total 650 ml Hemodialysis 1000 ml Result Diagram: 04/28/17 0903 04/28/17 0903 Imaging Last Impressions Soft Tissue Ultrasound 04/21/17 0000 Signed Impressions: Service Date/Time: Friday, April 21, 2017 19:30 - CONCLUSION: 1. No mass or fluid collection identified in the area of palpable abnormality. Lucio Jacobs MD Objective Remarks awake and alert, no acute distress lungs- no rales regular rhythm abdomen- wound dressing in place colostomy with brown stools extremities - dry skin Procedures HD A/P Problem List: (1) Hyperkalemia ICD Code: E87.5 - Hyperkalemia Status: Acute (2) End stage kidney disease ICD Code: N18.6 - End stage renal disease Status: Chronic Assessment and Plan Chronically ill 56-year-old female with past medical history of ESRD on HD, HLD , CHF, anxiety, DM, hypothyroidism, kidney, chronic wounds, chronic indwelling Ruiz who came to ER with nausea, vomit and missed hemodialysis for one week Coagulopathy secondary to Coumadin INR 7.2 resolved status post vitamin K. Coumadin restarted given history of DVT. INR acceptable. Continue to follow Nausea and vomiting and hypokalemia secondary to uremia from missed hemodialysis. Resolved Abdominal wound, leg wounds, present on admission. Worsening: Patient was receiving Bactrim and Diflucan for infected wounds outpatient. Patient without fever and leukocytosis. Abdominal lumps. Ultrasound negative for abscess or mass. Surgery consulted for biopsy but indicated biopsy is not needed. Patient had previous abdominal wall biopsy that was negative for calciphylaxis, showed stasis dermatitis. I offered the patient a CAT scan to further evaluate those subcutaneous nodules. However she refused citing claustrophobia. Wound care following. On antibiotics per ID. Zosyn. Continue meropenem. Wound culture showing normal skin malvin. - Oxycodone for breakthrough pain. Complicated UTI Ruiz catheter was replaced toward 12/2017. Urine growing ESBL and Pseudomonas. Discussed with ID. Patient started on ertapenem and tobramycin. -Repeat urine cultures on 04/24/17 growing gram neg rene. Continue to monitor. -ID ff Continue antibiotics. Diabetes mellitus: Stable monitor fingersticks with sliding scale coverage COPD: Not currently in exacerbation Hypothyroidism: Chronic. Continue Hormonal replacement Morbid obesity strongly recommended diet and exercise. Non compliance issues. Counseled DVT prophylaxis: on Coumadin. Discharge Planning Continue IV abx. Milton Reyes MD Apr 29, 2017 11:47
--- NOTE | 2017-04-29 15:13 | HHI.NPPN ---
Subjective General Problems: Anemia Renal Failure: End Stage Renal Disease History of Present Illness This is a 56-year-old female with past medical history of diabetes mellitus, ischemic heart disease, hypertension, hyperlipidemia, anxiety disorder, hypothyroidism, morbid obesity, history of multiple abdomen and thigh wounds who came to the hospital with complaint of nausea, vomiting and generalized weakness.The patient has history of end-stage renal disease on hemodialysis Friday, and Friday but she has been missing her dialysis. The last time she was dialyzed was about a week ago. The patient has multiple wounds and she has been getting wound care at home. There is no history of fever but she has a Ruiz catheter and she has a colostomy. The patient denies any history of diarrhea but she has nausea and vomiting. She has been missing dialysis because of the pain that she gets and she is lifted by the [employer] for transportation. I suggested the possibility of home hemodialysis but the son does not think that he can help her with this. Additional Remarks Patient is alert, No SOB. Continues to have abdominal discomfort (Betty Rose) Review of Systems General Constitutional: Fatigue (Betty Rose) Respiratory Respiratory Remarks Denies any SOB (Betty Rose) Cardiovascular Cardiac Remarks Denies any CP (Betty Rose) Objective Data Data 04/29/17 04/30/17 19:00 07:00 Intake Total 50 ml Balance 50 ml IV Total 50 ml Vital Signs Date Time Temp Pulse Resp B/P (MAP) Pulse Ox O2 Delivery O2 Flow Rate FiO2 04/29/17 11:42 99.1 58 20 169/71 (103) 98 04/29/17 07:43 99.3 68 20 151/56 (87) 97 04/29/17 04:00 97.3 63 18 147/57 (87) 100 04/29/17 04:00 Room Air 04/29/17 04:00 61 04/29/17 00:00 98.7 60 18 107/50 (69) 98 04/29/17 00:00 54 04/29/17 00:00 Room Air 04/28/17 20:00 61 04/28/17 20:00 97.8 93 18 116/49 (71) 96 04/28/17 20:00 Room Air 04/28/17 16:16 53 (Betty Rose) -: 04/28/17 0903 04/28/17 0903 Microbiology 04/28/17 Urine Culture - Preliminary, Resulted NO GROWTH IN 24 HOURS. (Betty Rose) Physical Exam General Appearance: No Acute Distress, Obese (Betty Rose) Eyes Eye Exam: Pupils Equal (Betty Rose) Throat Throat Exam: Oral Mucosa [place] & Moist (Betty Rose) Pulmonary Resp Exam: Clear Bilaterally, Breath Sounds Equal, No Distress (Betty Rose) Cardiology CV Exam: Regular, Normal Sinus Rhythm (Betty Rose) Gastrointestinal/Abdomen GI Exam: Non-Tender, Bowel Sounds Present GI Remarks colostomy Abdominal tenderness (Betty Rose) Genitourinary Exam: Flank Non-Tender (Betty Rose) Integumentary Skin Exam: Ulcer(s) Skin Remarks Multiple areas of chronic wounds including on the pannus of the stomach, the lateral thigh on the left, thigh on the right, and the sacrum. Extensive chronic skin changes in both lower extremities. (Betty Rose) Neurologic Neuro Exam: Alert, Awake, Oriented (Betty Rose) Psychiatric Psych Exam: Appropriate Responses (Betty Rose) Assessment/Plan Discussed Condition With: Patient Assessment Summary: End Stage Renal Disease Problem List: (1) End stage kidney disease ICD Codes: N18.6 - End stage renal disease Status: Chronic Plan: Dialysis MWF Discussed with the patient and the family about the importance of continuing the dialysis regularly. ESBL UTI and wound infections on invanz/zosyn/diflucan per ID Epogen with dialysis Potassium and calcuim WNL Dialysis yesterday with 1 liter removed Dialysis in AM (2) UTI (urinary tract infection) ICD Codes: N39.0 - Urinary tract infection, site not specified (3) Hyperkalemia ICD Codes: E87.5 - Hyperkalemia Status: Acute (4) Anemia in chronic kidney disease (CKD) ICD Codes: N18.9 - Chronic kidney disease, unspecified; D63.1 - Anemia in chronic kidney disease Status: Acute Plan: Resolved (5) Wounds, multiple ICD Codes: T07 - Unspecified multiple injuries Status: Acute (Betty Rose) Problem List: (1) End stage kidney disease ICD Codes: N18.6 - End stage renal disease Status: Chronic Plan: Dialysis MWF Discussed with the patient and the family about the importance of continuing the dialysis regularly. ESBL UTI and wound infections on invanz/zosyn/diflucan per ID Epogen with dialysis Potassium and calcium WNL Dialysis yesterday with 1 liter removed Dialysis in AM. Patient seen and examined, agree with above. ID is following, continue antibiotics. On Epogen with HD, follow the Hgb. (2) UTI (urinary tract infection) ICD Codes: N39.0 - Urinary tract infection, site not specified (3) Hyperkalemia ICD Codes: E87.5 - Hyperkalemia Status: Acute (4) Anemia in chronic kidney disease (CKD) ICD Codes: N18.9 - Chronic kidney disease, unspecified; D63.1 - Anemia in chronic kidney disease Status: Acute Plan: Resolved (5) Wounds, multiple ICD Codes: T07 - Unspecified multiple injuries Status: Acute (Valentin Jimenez MD) Betty Rose Apr 29, 2017 15:13 Valentin Jimenez MD Apr 29, 2017 17:11
[2017-04-29] MEDS: ERTAPENEM INJ 500 MG in SODIUM CHLORIDE 0.9% INJ 100 ML IV SCH (17:30)
[2017-04-29] MEDS ORDERED: ZOLPIDEM TARTRATE 5 MG TAB PO PRN (17:45)
[2017-04-29] MEDS: ALPRAZolam 0.25 MG TAB PO PRN (21:16)
[2017-04-29] MEDS: ATORVASTATIN 40 MG TAB PO SCH (22:03)
[2017-04-30] VITALS (8 sets, daily range): BP systolic 102–165; BP diastolic 54–91; PULSE 52–63; RESP 15–22; TEMP 97.8–98.9; O2SAT 99–100
[2017-04-30] MEDS: PIPERACIL-TAZO 2.25 GM PREMIX 50 ML IV SCH ×2 (01:29→13:17)
[2017-04-30] MEDS: ACETAMINOPHEN/HYDROcodone 325 MG/10 MG TAB PO PRN ×2 (01:29→13:17)
[2017-04-30] MEDS: LEVOTHYROXINE SODIUM 150 MCG TAB PO SCH (06:20)
[2017-04-30] MEDS: INSULIN ASPART SUPPLEMENTAL SCALE SQ SCH ×4 (08:00→21:32)
[2017-04-30] MEDS: FLUCONAZOLE 100 MG TAB PO SCH (08:22)
[2017-04-30] MEDS: CALCIUM CARBONATE 500 MG CHEWABLE TAB CHEW SCH ×2 (08:22→21:31)
[2017-04-30] MEDS: SODIUM CHLORIDE 0.9% FLUSH 10 ML FLUSH IV FLUSH SCH ×2 (08:22→21:31)
[2017-04-30] MEDS: GABAPENTIN 100 MG CAP PO SCH ×2 (08:23→21:31)
[2017-04-30] MEDS: OXYBUTYNIN CHLORIDE 5 MG TAB PO SCH ×2 (08:23→21:31)
[2017-04-30] MEDS: QUEtiapine FUMARATE 25 MG TAB PO SCH ×3 (08:24→18:08)
[2017-04-30] MEDS: PARoxetine HCL 20 MG TAB PO SCH (08:24)
[2017-04-30] MEDS: COLLAGENASE OINT 30 GM TUBE TOPICAL SCH (08:26)
[2017-04-30 08:35] LABS: INTERNATIONAL NORMALIZED RATIO 2.6 RATIO; PROTHROMBIN TIME - PATIENT 26.7 SEC (9.8-11.6)
--- NOTE | 2017-04-30 09:07 | HHI.NPPN ---
Subjective General Problems: Anemia Renal Failure: End Stage Renal Disease History of Present Illness This is a 56-year-old female with past medical history of diabetes mellitus, ischemic heart disease, hypertension, hyperlipidemia, anxiety disorder, hypothyroidism, morbid obesity, history of multiple abdomen and thigh wounds who came to the hospital with complaint of nausea, vomiting and generalized weakness.The patient has history of end-stage renal disease on hemodialysis Friday, and Friday but she has been missing her dialysis. The last time she was dialyzed was about a week ago. The patient has multiple wounds and she has been getting wound care at home. There is no history of fever but she has a Ruiz catheter and she has a colostomy. The patient denies any history of diarrhea but she has nausea and vomiting. She has been missing dialysis because of the pain that she gets and she is lifted by the [employer] for transportation. I suggested the possibility of home hemodialysis but the son does not think that he can help her with this. Additional Remarks Patient is alert, No SOB. Continues to have hallucinations possible from pain medication (Betty Rose) Review of Systems General Constitutional: Fatigue (Betty Rose) Respiratory Respiratory Remarks Denies any SOB (Betty Rose) Cardiovascular Cardiac Remarks Denies any CP (Betty Rose) Objective Data Data Vital Signs Date Time Temp Pulse Resp B/P (MAP) Pulse Ox O2 Delivery O2 Flow Rate FiO2 04/30/17 03:53 54 04/30/17 03:00 Nasal Cannula 2.00 04/30/17 00:00 98.1 52 20 102/54 (70) 100 04/29/17 23:42 53 04/29/17 22:06 Room Air 04/29/17 20:00 98.2 56 20 121/48 (72) 100 04/29/17 19:49 53 04/29/17 16:17 58 04/29/17 15:56 99.4 61 20 151/61 (91) 99 04/29/17 12:00 58 04/29/17 11:42 99.1 58 20 169/71 (103) 98 (Betty Rose) -: 04/28/17 0903 04/28/17 09 Physical Exam General Appearance: No Acute Distress, Obese (Betty Rose) Eyes Eye Exam: Pupils Equal (Betty Rose) Throat Throat Exam: Oral Mucosa [place] & Moist (Betty Rose) Pulmonary Resp Exam: Clear Bilaterally, Breath Sounds Equal, No Distress (Betty Rose) Cardiology CV Exam: Regular, Normal Sinus Rhythm (Betty Rose) Gastrointestinal/Abdomen GI Exam: Non-Tender, Bowel Sounds Present GI Remarks colostomy Abdominal tenderness (Betty Rose) Genitourinary Exam: Flank Non-Tender (Betty Rose) Integumentary Skin Exam: Ulcer(s) Skin Remarks Multiple areas of chronic wounds including on the pannus of the stomach, the lateral thigh on the left, thigh on the right, and the sacrum. Extensive chronic skin changes in both lower extremities. (Betty Rose) Neurologic Neuro Exam: Alert, Awake, Oriented (Betty Rose) Psychiatric Psych Exam: Appropriate Responses (Betty Rose) Assessment/Plan Discussed Condition With: Patient Assessment Summary: End Stage Renal Disease Problem List: (1) End stage kidney disease ICD Codes: N18.6 - End stage renal disease Status: Chronic Plan: Dialysis MWF Discussed with the patient and the family about the importance of continuing the dialysis regularly. ESBL UTI and wound infections on invanz/zosyn/diflucan per ID Epogen with dialysis Seen during Dialysis complains of hallucinations possible from pain medication (2) UTI (urinary tract infection) ICD Codes: N39.0 - Urinary tract infection, site not specified (3) Hyperkalemia ICD Codes: E87.5 - Hyperkalemia Status: Acute (4) Anemia in chronic kidney disease (CKD) ICD Codes: N18.9 - Chronic kidney disease, unspecified; D63.1 - Anemia in chronic kidney disease Status: Acute Plan: Resolved (5) Wounds, multiple ICD Codes: T07 - Unspecified multiple injuries Status: Acute (Betty Rose) Problem List: (1) End stage kidney disease ICD Codes: N18.6 - End stage renal disease Status: Chronic Plan: Dialysis MWF Discussed with the patient and the family about the importance of continuing the dialysis regularly. ESBL UTI and wound infections on invanz/zosyn/diflucan per ID Epogen with dialysis Seen during Dialysis complains of hallucinations possible from pain medication. Patient seen and examined, agree with above. (2) UTI (urinary tract infection) ICD Codes: N39.0 - Urinary tract infection, site not specified (3) Hyperkalemia ICD Codes: E87.5 - Hyperkalemia Status: Acute (4) Anemia in chronic kidney disease (CKD) ICD Codes: N18.9 - Chronic kidney disease, unspecified; D63.1 - Anemia in chronic kidney disease Status: Acute Plan: Resolved (5) Wounds, multiple ICD Codes: T07 - Unspecified multiple injuries Status: Acute (Valentin Jimenez MD) Betty Rose Apr 30, 2017 09:07 Valentin Jimenez MD Apr 30, 2017 19:19
[2017-04-30] MEDS: EPOETIN ALFA 10,000 UNITS/ML VIAL IV PUSH PRN (11:40)
[2017-04-30] MEDS: GENTAMICIN SULFATE 20 MG/2 ML VIAL OTHER PRN (11:41)
[2017-04-30] MEDS: HEPARIN SODIUM - IV 10,000 UNITS/10 ML VIAL PRN (11:41)
--- NOTE | 2017-04-30 12:40 | HHI.PR ---
Subjective Remarks had dialysis earlier- tolerated well but patient having auditory and visual hallucinations- seeing people in her room + tactile- hallucinations- feels something crawling on her thigh denies any fever, headachesm, or neck pain, no blurring of vision patient awake and alert - and give very specific details Objective Vitals Vital Signs Date Time Temp Pulse Resp B/P (MAP) Pulse Ox O2 Delivery O2 Flow Rate FiO2 04/30/17 08:04 98.0 55 22 134/62 (86) 100 04/30/17 08:00 56 04/30/17 03:53 54 04/30/17 03:00 Nasal Cannula 2.00 04/30/17 00:00 98.1 52 20 102/54 (70) 100 04/29/17 23:42 53 04/29/17 22:06 Room Air 04/29/17 20:00 98.2 56 20 121/48 (72) 100 04/29/17 19:49 53 04/29/17 16:17 58 04/29/17 15:56 99.4 61 20 151/61 (91) 99 I/O 04/29/17 04/29/17 04/29/17 04/30/17 04/30/17 04/30/17 06:59 14:59 22:59 06:59 14:59 22:59 Intake Total 50 ml 50 ml 240 ml 600 ml Output Total 650 ml 600 ml 650 ml 1500 ml Balance -600 ml 50 ml -360 ml -50 ml -1500 ml Intake Oral 240 ml 600 ml IV Total 50 ml 50 ml Output Urine Total 650 ml 500 ml 650 ml Stool Total 100 ml Hemodialysis 1500 ml Result Diagram: 04/28/1790204/28/17 0903 Imaging Last Impressions Soft Tissue Ultrasound 04/21/17 0000 Signed Impressions: Service Date/Time: Friday, April 21, 2017 19:30 - CONCLUSION: 1. No mass or fluid collection identified in the area of palpable abnormality. Lucio Jacobs MD Objective Remarks awake and alert, no acute distress, and o x 3 no nuchal rigidity, pupils equal lungs- no rales regular rhythm abdomen- wound dressing in place colostomy with brown stools extremities - dry skin neuro exam- non focal Procedures HD A/P Problem List: (1) Hyperkalemia ICD Code: E87.5 - Hyperkalemia Status: Acute (2) End stage kidney disease ICD Code: N18.6 - End stage renal disease Status: Chronic Assessment and Plan Chronically ill 56-year-old female with past medical history of ESRD on HD, HLD , CHF, anxiety, DM, hypothyroidism, kidney, chronic wounds, chronic indwelling Ruiz who came to ER with nausea, vomit and missed hemodialysis for one week Acute hallucinations- visual, auditory and tactile- patient looks too good to have a stroke (on coumadin) refused to have head CT scan- severe claustrophobia- told her O can give Ativan- refused- "you have to totally knock me out" get a psychiatry consult hold pain meds- not really getting a lot though Coagulopathy secondary to Coumadin INR 7.2 resolved status post vitamin K. Coumadin restarted given history of DVT. INR good . Continue to follow Nausea and vomiting and hypokalemia secondary to uremia from missed hemodialysis. Resolved Abdominal wound, leg wounds, present on admission. Worsening: Patient was receiving Bactrim and Diflucan for infected wounds outpatient. Patient without fever and leukocytosis. Abdominal lumps. Ultrasound negative for abscess or mass. Surgery consulted for biopsy but indicated biopsy is not needed. Patient had previous abdominal wall biopsy that was negative for calciphylaxis, showed stasis dermatitis. I offered the patient a CAT scan to further evaluate those subcutaneous nodules. However she refused citing claustrophobia. Wound care following. On antibiotics per ID. Aguilar. Continue meropenem. Wound culture showing normal skin malvin. - Oxycodone for breakthrough pain. Complicated UTI Ruiz catheter was replaced 04/19. Urine growing ESBL and Pseudomonas. Discussed with ID. Patient started on ertapenem and tobramycin. -Repeat urine cultures on 04/24/17 growing gram neg rene. Continue to monitor. -ID ff Continue antibiotics. Diabetes mellitus: Stable monitor fingersticks with sliding scale coverage COPD: Not currently in exacerbation Hypothyroidism: Chronic. Continue Hormonal replacement Morbid obesity strongly recommended diet and exercise. Non compliance issues. Counseled DVT prophylaxis: on Coumadin. Discharge Planning Continue IV abx. Milton Reyes MD Apr 30, 2017 12:40
--- NOTE | 2017-04-30 16:01 | HHI.IDPN ---
Note Infectious Disease Note Patient says that she is having visual hallucination. Had same while undergoing hemodialysis today. Awake but looks tired. No chills. No REYES. Afebrile. Repeat urine culture has no growth in 24 hours. The patient presented to the emergency department with nausea and vomiting. missed a week of dialysis. She has end-stage renal disease and receives hemodialysis three times a week. The patient is morbidly obese. She states to me that she gets bladder spasms and she has some leakage around her Ruiz catheter which is in place for the urine. She has had the chronic Ruiz catheter for months. She states that it was last changed two weeks ago and that after she was admitted here this admission it was changed again. PAST MEDICAL HISTORY 1. C. difficile colitis. 2. Diabetes mellitus. 3. Hypertension. 4. Osteoarthritis. 5. Coronary artery disease. 6. End-stage renal disease. 7. Hypothyroidism. 8. Sleep apnea. 9. Spinal stenosis. PAST SURGICAL HISTORY 1. Laparoscopic cholecystectomy 1996. 2. Coronary artery stent. 3. Lap band 2004. 4. AV fistula. 5. Abdominal debridement and panniculectomy. ALLERGIES 1. CLARITHROMYCIN. 2. FERROUS FUMARATE. 3. FERROUS SULFATE. 4. FERUMOXYTOL. 5. IRON. 6. MORPHINE. 7. MULTIPLE VITAMINS WITH IRON. ANTIBIOTICS: Ertapenem Fluconazole. Zosyn. OBJECTIVE: Vital Signs Date Time Temp Pulse Resp B/P (MAP) Pulse Ox O2 Delivery O2 Flow Rate FiO2 04/30/17 12:04 98.7 63 22 165/61 (95) 100 04/30/17 08:04 98.0 55 22 134/62 (86) 100 04/30/17 08:00 56 04/30/17 03:53 54 04/30/17 03:00 Nasal Cannula 2.00 04/30/17 00:00 98.1 52 20 102/54 (70) 100 04/29/17 23:42 53 04/29/17 22:06 Room Air 04/29/17 20:00 98.2 56 20 121/48 (72) 100 04/29/17 19:49 53 04/29/17 16:17 58 Microbiology Date/Time Source Procedure Growth Status 04/28/17 21:45 Urine Catheterized Urine Urine Culture - Preliminary NO GROWTH IN 24 HOURS. Resulted IMAGING: Soft Tissue Ultrasound 04/21/17 0000 Signed Impressions: Service Date/Time: Friday, April 21, 2017 19:30 - CONCLUSION: 1. No mass or fluid collection identified in the area of palpable abnormality. Lucio Jacobs MD PHYSICAL EXAMINATION GENERAL: Alert and awake. No acute distress. HEENT: No icterus. No conjunctival erythema. Oropharynx moist mucosa without lesions. NECK: Supple without adenopathy. LUNGS: Clear. HEART: Regular rate and rhythm without murmurs, rubs or gallops. ABDOMEN: Obese, soft. The patient has firm nodular lesions at the abdomen in two locations on the left upper quadrant and left lower quadrant, less erythema. tender on palpation. EXTREMITIES: No clubbing, cyanosis or edema. Chronic tree bark changes at the lower extremities and an ulceration of the right tibia which has a dressing over it. The skin has no diffuse rash. NEUROLOGIC: No gross focal findings. PSYCH: Calm and cooperative. IMPRESSION 1. Urinary tract infection due to gram-negative bacteria. Klebsiella and pseudomonas. Repeat urine culture pending. 2. 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 Ulcerated wound with drainage - culture negative. 3. End-stage renal disease. RECOMMENDATIONS 1. Continue Ertapenem. 2. Stop Zosyn. 3. Sop fluconazole. 4. Monitor the urine culture and stop current antibiotic if negative. 5. If urine culture is negative, stop Ertapenem. 6. Doxycycline PO for the abdominal wall lesions x 10 days. Chu Neville MD Apr 30, 2017 16:01
[2017-04-30] MEDS: WARFARIN SOD 1 MG TAB PO SCH (16:31)
[2017-04-30] MEDS: ERTAPENEM INJ 500 MG in SODIUM CHLORIDE 0.9% INJ 100 ML IV SCH (18:08)
[2017-04-30] MEDS: DOXYCYCLINE HYCLATE 100 MG CAP PO SCH (21:31)
[2017-04-30] MEDS: ATORVASTATIN 40 MG TAB PO SCH (21:31)
[2017-05-01] VITALS (9 sets, daily range): BP systolic 123–172; BP diastolic 55–70; PULSE 52–73; RESP 16–22; TEMP 97.5–98.2; O2SAT 97–100
[2017-05-01] MEDS: LEVOTHYROXINE SODIUM 150 MCG TAB PO SCH (06:10)
[2017-05-01 07:21] LABS: INTERNATIONAL NORMALIZED RATIO 2.6 RATIO; PROTHROMBIN TIME - PATIENT 26.6 SEC (9.8-11.6)
[2017-05-01] MEDS: INSULIN ASPART SUPPLEMENTAL SCALE SQ SCH ×4 (08:00→21:08)
[2017-05-01] MEDS: COLLAGENASE OINT 30 GM TUBE TOPICAL SCH (09:00)
[2017-05-01] MEDS: CALCIUM CARBONATE 500 MG CHEWABLE TAB CHEW SCH ×2 (09:08→21:09)
[2017-05-01] MEDS: DOXYCYCLINE HYCLATE 100 MG CAP PO SCH ×2 (09:08→21:08)
[2017-05-01] MEDS: FLUCONAZOLE 100 MG TAB PO SCH (09:08)
[2017-05-01] MEDS: PARoxetine HCL 20 MG TAB PO SCH (09:08)
[2017-05-01] MEDS: QUEtiapine FUMARATE 25 MG TAB PO SCH ×3 (09:08→18:07)
[2017-05-01] MEDS: GABAPENTIN 100 MG CAP PO SCH ×2 (09:08→21:08)
[2017-05-01] MEDS: OXYBUTYNIN CHLORIDE 5 MG TAB PO SCH ×2 (09:09→21:08)
--- NOTE | 2017-05-01 09:33 | HHI.PR ---
Subjective Remarks no complains, good po, awake and alert and interactive and appropriate re: auditory or tactile hallucinations "none last night and today, so far" Objective Vitals Vital Signs Date Time Temp Pulse Resp B/P (MAP) Pulse Ox O2 Delivery O2 Flow Rate FiO2 05/01/17 04:00 98.2 60 17 140/69 (92) 99 05/01/17 03:53 58 05/01/17 00:00 98.2 58 16 147/63 (91) 98 04/30/17 20:00 97.8 58 15 157/91 (113) 99 04/30/17 19:00 Room Air 04/30/17 16:04 98.9 57 22 160/61 (94) 100 04/30/17 16:00 62 04/30/17 12:04 98.7 63 22 165/61 (95) 100 I/O 04/30/17 04/30/17 04/30/17 05/01/17 05/01/17 05/01/17 07:00 15:00 23:00 07:00 15:00 23:00 Intake Total 600 ml 50 ml 520 ml 480 ml Output Total 650 ml 1500 ml 300 ml 630 ml Balance -50 ml -1450 ml 220 ml -150 ml Intake Oral 600 ml 420 ml 480 ml IV Total 50 ml 100 ml Output Urine Total 650 ml 300 ml 630 ml Hemodialysis 1500 ml # Bowel Movements 0 Result Diagram: 04/28/17 0903 04/28/17 0903 Imaging Last Impressions Soft Tissue Ultrasound 04/21/17 0000 Signed Impressions: Service Date/Time: Friday, April 21, 2017 19:30 - CONCLUSION: 1. No mass or fluid collection identified in the area of palpable abnormality. Lucio Jacobs MD Objective Remarks awake and alert, no acute distress, and o x 3, interactive, approriate, mood good no nuchal rigidity, pupils equal lungs- no rales regular rhythm abdomen- wound dressing in place, some wounds- drying up colostomy with brown stools extremities - dry skin neuro exam- non focal Procedures HD A/P Problem List: (1) Hyperkalemia ICD Code: E87.5 - Hyperkalemia Status: Acute (2) End stage kidney disease ICD Code: N18.6 - End stage renal disease Status: Chronic Assessment and Plan Chronically ill 56-year-old female with past medical history of ESRD on HD, HLD , CHF, anxiety, DM, hypothyroidism, kidney, chronic wounds, chronic indwelling Ruiz who came to ER with nausea, vomit and missed hemodialysis for one week Acute hallucinations- visual, auditory and tactile 04/30- patient looks too good to have a stroke (on coumadin)- seems RESOLVED- continue to monitor none so far today refused to have head CT scan- severe claustrophobia- told her O can give Ativan- refused- "you have to totally knock me out" get a psychiatry input hold pain meds- not really getting a lot though- per patient had same reaction with Methadone in the past Complicated UTI Ruiz catheter placed 04/19. - Urine growing Pseudomonas. -Repeat urine cultures on 04/24/17 growing gram neg rene. Continue to monitor. -ID ff Continue antibiotics. - On Ertapenem ESRD on HD- Nephrology ff Coagulopathy secondary to Coumadin INR 7.2 resolved status post vitamin K. Coumadin restarted given history of DVT. INR good . Continue to follow Nausea and vomiting and hypokalemia secondary to uremia from missed hemodialysis. Resolved Abdominal wound, leg wounds, present on admission. Worsening: Patient was receiving Bactrim and Diflucan for infected wounds outpatient. Patient without fever and leukocytosis. Abdominal lumps. Ultrasound negative for abscess or mass. Surgery consulted for biopsy but indicated biopsy is not needed. Patient had previous abdominal wall biopsy that was negative for calciphylaxis, showed stasis dermatitis. I offered the patient a CAT scan to further evaluate those subcutaneous nodules. However she refused citing claustrophobia. - Wound care team ff - started on doxycycline empirically for these abdominal wounds 04/30 - Oxycodone -Discontinued- - Diabetes mellitus: Stable monitor fingersticks with sliding scale coverage COPD: Not currently in exacerbation Hypothyroidism: Chronic. Continue Hormonal replacement Morbid obesity strongly recommended diet and exercise. Non compliance issues. Counseled DVT prophylaxis: on Coumadin. Discharge Planning Continue IV abx. Milton Reyes MD May 01, 2017 09:33
--- NOTE | 2017-05-01 12:31 | PD.PSY.CON ---
Provisional Diagnosis Admission Date Apr 19, 2017 at 14:40 [place] I. Unspecified psychosis, history of anxiety [place] II. Deferred [place] III. ESRD History of Present Illness Service Psychiatry Consult Requested By Medicine Reason for Consult Visual hallucinations Primary Care Physician Aline Velarde MD HPI The patient is a 56-year-old woman, domiciled with her son in [place], unemployed, supported by [facility], with psychiatric history of anxiety, no previous psychiatric hospitalizations, no previous suicidal attempts, she is in Paxil 20 mg, and of his use disorder, with past medical history of ESRD on HD, HLD, CHF, anxiety, DM, hypothyroidism, kidney, chronic wounds, chronic indwelling Ruiz who came to ER with nausea, vomit and missed hemodialysis for one week. Presented with Acute hallucinations- visual, auditory and tactile- patient looks too good to have a stroke (on coumadin). Refuse CT due to claustrophobia. Patient was consulted to psychiatry to address the source of hallucinations. Chart was reviewed. The case was discussed personally with Dr. Reyes. On psychiatric evaluation today the patient presents with about 2 weeks of new onset, progressive, increasing in severity intensity and frequency visual hallucinations. Patient reports that she has been having visual hallucinations everyday in the last 2 weeks. He described the hallucinations are very vivid, initially people and animals around her, very colorful, episodic , from 3-4 times per day, at times can be anxiety provoking, usually mute and at times completely insighless to the point that one time the patient already called the police and plating of people inside her house. The patient denies auditory hallucinations, denies paranoia, she is logical, coherent and relevant. There is no loosening of associations, no ideas of reference, no flight of ideas, no prominent delusions during this evaluation. Patient reports good mood, denies depression, denies anxiety, she denies suicidal and homicidal ideation. The patient is fully oriented 3, no fluctuation of consciousness, no attention deficit, no gross cognitive impairment. The patient reports daily use of marijuana, denies other illegal drugs, denies alcohol. Review of Systems Endocrine: DENIES: Abnorml menstrual pattern, Heat/cold intolerance, Polydipsia , Polyuria, Polyphagia Eyes: DENIES: Blurred vision, Diplopia, Eye inflammation, Eye pain, Vision loss , Photosensitivity, Double Vision Ears, nose, mouth, throat: DENIES: Tinnitus, Hearing loss, Vertigo, Nasal discharge, Oral lesions, Throat pain, Hoarseness, Ear Pain, Running Nose, Epistaxis, Sinus Pain, Toothache, Odynophagia Respiratory: DENIES: Apneas, Cough, Snoring, Wheezing, Hemoptysis, Sputum production, Shortness of breath Cardiovascular: DENIES: Chest pain, Palpitations, Syncope, Dyspnea on Exertion , PND, Lower Extremity Edema, Orthopnea, Claudication Gastrointestinal: DENIES: Abdominal pain, Black stools, Bloody stools, Constipation, Diarrhea, Nausea, Vomiting, Difficulty Swallowing, Anorexia Genitourinary: DENIES: Abnormal vaginal bleeding, Dysmenorrhea, Dyspareunia, Sexual dysfunction, Urinary frequency, Urinary incontinence, Urgency, Hematuria , Dysuria, Nocturia, Vaginal discharge Musculoskeletal: DENIES: Joint pain, Muscle aches, Stiffness, Joint Swelling, Back pain, Neck pain Integumentary: DENIES: Abnormal pigmentation, Pruritus, Rash, Nail changes, Breast masses, Breast skin changes, Nipple discharge Hematologic/lymphatic: DENIES: Bruising, Lymphadenopathy Immunologic/allergic: DENIES: Eczema, Urticaria Neurologic: DENIES: Abnormal gait, Headache, Localized weakness, Paresthesias, Seizures, Speech Problems, Tremor, Poor Balance Psychiatric: COMPLAINS OF: Hallucinations, DENIES: Anxiety, Confusion, Mood changes, Depression, Agitation, Suicidal Ideation, Homicidal Ideation, Delusions Past Family Social History Coded Allergies: clarithromycin (Verified Allergy, Severe, swelling of face, 01/03/17) ferrous fumarate (Verified Adverse Reaction, Severe, Constipation, ) ferrous sulfate (Verified Adverse Reaction, Severe, Constipation, 01/03/17 ) ferumoxytol (Verified Adverse Reaction, Severe, Constipation, 01/03/17) iron (Verified Adverse Reaction, Severe, Constipation, 01/03/17) morphine (Verified Adverse Reaction, Severe, 01/03/17) renal insufficiency. multivitamin infusion, adult no.4 with vitamin K (Verified Adverse Reaction, Severe, Constipation, 01/03/17) multivitamin with iron,other minerals (Verified Adverse Reaction, Severe, Constipation, 01/03/17) *MDRO Multi-Drug Resistant Organism (Verified Adverse Reaction, Unknown, VRE, MRSA, MDR-Pseudomonas, 09/02/16) VRE (abdominal wound) - 07/09/16 MDR-Pseudomonas (abdominal wound) - 07/09/16 MRSA (abdomen wound) - 08/28/16 Active Scripts Fluconazole (Diflucan) 100 Mg Tab, 50 MG PO DAILY for funguria, #5 TAB Prov:Lillian Loyd MD 01/05/17 [Katty Sling - Large] No Conflict Check, UNIT for For use with katty lift, #1 Prov:Lillian Loyd MD 01/04/17 Reported Medications Quetiapine (Quetiapine) 25 Mg Tab, 25 MG PO TID, TAB 0 Refills 04/19/17 Warfarin (Jantoven) 4 Mg Tab, 4 MG PO DAILY for Blood Clot Prevention, TAB 0 Refills 04/19/17 Oxybutynin (Ditropan) 5 Mg Tab, 5 MG PO Q12HR for Urinary Symptom Managemen, TAB 0 Refills 04/19/17 Tizanidine (Tizanidine) 4 Mg Cap, 4 MG PO TID for Muscle Spasm, CAP 0 Refills 04/19/17 Hydrocodone-Acetaminophen (Hydrocodone-Acetaminophen) 10-325 mg Tab, 1 TAB PO Q6H Y for PAIN, TAB 0 Refills 04/19/17 Sulfamethoxazole-Trimethoprim (Sulfamethoxazole-Trimethoprim) 800-160 Mg Tab, 1 TAB PO BID for Infection, TAB 0 Refills 04/19/17 Paroxetine (Paroxetine) 40 Mg Tab, 40 MG PO DAILY, TAB 0 Refills 04/19/17 Levothyroxine (Levothyroxine) 150 Mcg Tab, 150 MCG PO DAILY for Thyroid, TAB 0 Refills 04/19/17 Warfarin (Coumadin) 4 Mg Tab, 4 MG PO DAILY for Prevent Blood Clot, TAB 0 Refills 04/19/17 Ondansetron Odt (Zofran Odt) 4 Mg Tab, 4 MG SL Q6HR Y for Nausea/Vomiting, #30 TAB 0 Refills 08/28/16 Atorvastatin (Atorvastatin) 40 Mg Tab, 40 MG PO HS for Cholesterol Management, # 30 TAB 0 Refills 08/28/16 Alprazolam (Xanax) 0.25 Mg Tab, 0.25 MG PO Q6H Y for ANXIETY, TAB 0 Refills 08/28/16 Gabapentin (Gabapentin) 100 Mg Cap, 100 MG PO BID, #60 CAP 0 Refills 05/10/16 Current Medications Medications (Trade) Dose Ordered Sig/Soren Route Start Time Stop Time Status Last Admin (NS Flush) 2 ml UNSCH PRN IV FLUSH 04/19/17 13:15 04/28/17 01:32 (NS Flush) 2 ml BID IV FLUSH 04/19/17 21:00 04/30/17 21:31 (Tylenol) 650 mg Q4H PRN PO 04/19/17 13:15 (Zofran Inj) 4 mg Q6H PRN IVP 04/19/17 13:15 04/23/17 16:07 (Narcan Inj) 0.4 mg UNSCH PRN IV PUSH 04/19/17 13:15 (Senokot) 17.2 mg Q12H PRN PO 04/19/17 13:15 (Dulcolax Supp) 10 mg DAILY PRN RECTAL 04/19/17 13:15 (Lactulose Liq) 30 ml DAILY PRN PO 04/19/17 13:15 (Xanax) 0.25 mg Q6H PRN PO 04/19/17 13:15 04/29/17 21:16 (Lipitor) 40 mg HS PO 04/19/17 21:00 04/30/17 21:31 (Diflucan) 50 mg DAILY PO 04/20/17 09:00 05/01/17 09:08 (Neurontin) 100 mg BID PO 04/19/17 21:00 05/01/17 09:08 ([place] 10-325 Mg) 1 tab Q6H PRN PO 04/19/17 13:15 Future Hold 04/30/17 13:17 (Synthroid) 150 mcg DAILY@0600 PO 04/20/17 06:00 05/01/17 06:10 (Ditropan) 5 mg Q12HR PO 04/19/17 21:00 05/01/17 09:09 (Paxil) 40 mg DAILY PO 04/20/17 09:00 05/01/17 09:08 (SEROquel) 25 mg TID PO 04/19/17 18:00 05/01/17 09:08 (Zanaflex) 4 mg TID PO 04/19/17 18:00 05/01/17 09:08 (Pill Splitter) 1 ea UNSCH PRN OTHER 04/19/17 13:45 (NovoLOG SUPPLEMENTAL SCALE) 1 ACHS SLIDING SCALE SQ 04/19/17 17:00 04/30/17 21:32 Sodium Chloride 1,000 ml @ 0 mls/hr Q0M PRN OTHER 04/19/17 14:14 (Heparin Inj) 8,000 units UNSCH PRN IV FLUSH 04/19/17 14:15 Sodium Chloride 1,000 ml @ 200 mls/hr Q5H PRN IV 04/19/17 14:14 Sodium Chloride 1,000 ml @ 0 mls/hr Q0M PRN OTHER 04/19/17 14:14 (Mannitol Inj) 12.5 gm UNSCH PRN IV 04/19/17 14:15 Albumin Human 100 ml @ 60 mls/hr UNSCH PRN IV 04/19/17 14:15 04/23/17 08:52 (NS Flush) 5 ml UNSCH PRN IV FLUSH 04/19/17 14:15 (Heparin Inj) UNSCH PRN .XX 04/19/17 14:15 04/30/17 11:41 (Gentamicin Inj) 20 mg UNSCH PRN OTHER 04/19/17 14:15 04/30/17 11:41 (Zofran Inj) 4 mg UNSCH PRN IV PUSH 04/19/17 14:15 04/23/17 23:28 (Tylenol) 650 mg UNSCH PRN PO 04/19/17 14:15 (Benadryl) 25 mg UNSCH PRN PO 04/19/17 14:15 (Nitrostat Sl) 0.4 mg UNSCH PRN SL 04/19/17 14:15 (Catapres) 0.1 mg UNSCH PRN PO 04/19/17 14:15 (Epogen Inj) 10,000 units UNSCH PRN IV PUSH 04/19/17 14:15 04/30/17 11:40 (Gelfoam 12 Mm/7 Mm Top) 1 foam UNSCH PRN TOP 04/19/17 14:15 Pharmacy Profile Note 0 ml @ 0 mls/hr UNSCH OTHER 04/20/17 12:30 (Tums Chew) 500 mg Q12HR CHEW 04/21/17 09:00 05/01/17 09:08 Ertapenem 500 mg/ Sodium Chloride 100 ml @ 200 mls/hr Q24H IV 04/22/17 18:00 04/30/17 18:08 (Santyl Oint) 1 applic DAILY TOPICAL 04/26/17 09:00 04/30/17 08:26 (Roxicodone) 10 mg Q8H PRN PO 04/25/17 17:00 05/01/17 11:30 (Ambien) 5 mg HS PRN PO 04/29/17 17:45 (Coumadin) 1 mg DAILY@1600 PO 04/30/17 16:00 04/30/17 16:31 (Vibramycin) 100 mg BID PO 04/30/17 21:00 05/01/17 09:08 Family Psych History No family psychiatric history Social History Patient was born and raised in [facility], she has been living in [place] since 1975, she lives in [place] with her son, she is unemployed, single, supported by [facility] Physical Exam No tremors, no EPS, no psychomotor agitation or retardation, Vital Signs Vital Signs Date Time Temp Pulse Resp B/P (MAP) Pulse Ox O2 Delivery O2 Flow Rate FiO2 05/01/17 11:38 Room Air 05/01/17 08:00 97.5 73 18 172/70 (104) 97 04/30/17 08:00 2.00 I/O 05/01/17 05/01/17 05/02/17 08:00 16:00 00:00 Intake Total 480 ml Output Total 630 ml Balance -150 ml Lab Results Test 05/01/17 06:45 Prothrombin Time 26.6 SEC Prothromb Time International Ratio 2.6 RATIO Date/Time Source Procedure Growth Status 04/28/17 21:45 Urine Catheterized Urine Urine Culture - Final Pseudomonas Aeruginosa Multi-Drug Resistant Complete 04/25/17 10:00 Wound Abdomen Gram Stain - Final Complete 04/25/17 10:00 Wound Abdomen Wound Culture - Final HEAVY GROWTH NORMAL SKIN ESTHER... Complete Assessment & Plan Problem List: (1) Unspecified psychosis ICD Codes: F29 - Unspecified psychosis not due to a substance or known physiological condition Assessment & Plan: On psychiatric evaluation today the patient presents with about 2 weeks of new onset, progressive, increasing in severity intensity and frequency visual hallucinations. Patient reports that she has been having visual hallucinations everyday in the last 2 weeks. He described the hallucinations are very vivid, initially people and animals around her, very colorful, episodic, from 3-4 times per day, at times can be anxiety provoking, usually mute and at times completely insighless to the point that one time the patient already called the police and plating of people inside her house. The patient denies auditory hallucinations, denies paranoia, she is logical, coherent and relevant. There is no loosening of associations, no ideas of reference, no flight of ideas, no prominent delusions during this evaluation. Patient reports good mood, denies depression, denies anxiety, she denies suicidal and homicidal ideation. Her current presentation seems to be the result of metabolic changes secondary to noncompliant with hemodialysis, but the primary psychiatric illness decompensation is likely. Patient benefit of a low-dose of antipsychotic, Seroquel 25 mg twice a day for her psychosis. He also might benefit of a voluntary psychiatric admission close monitoring of symptoms and safety. Brief supportive psychotherapy, psychoeducation provided. I will follow-up. Assessment & Plan Estimated LOS: Deangelo Hernandez MD May 01, 2017 12:31
--- NOTE | 2017-05-01 13:38 | HHI.IDPN ---
Note Infectious Disease Note Patient has visual hallucination. Awake but looks tired. No chills. No REYES. Afebrile. Repeat urine culture has Pseudomonas resistant. The patient presented to the emergency department with nausea and vomiting. missed a week of dialysis. She has end-stage renal disease and receives hemodialysis three times a week. The patient is morbidly obese. She states to me that she gets bladder spasms and she has some leakage around her Mujica catheter which is in place for the urine. She has had the chronic Mujica catheter for months. She states that it was last changed two weeks ago and that after she was admitted here this admission it was changed again. PAST MEDICAL HISTORY 1. C. difficile colitis. 2. Diabetes mellitus. 3. Hypertension. 4. Osteoarthritis. 5. Coronary artery disease. 6. End-stage renal disease. 7. Hypothyroidism. 8. Sleep apnea. 9. Spinal stenosis. PAST SURGICAL HISTORY 1. Laparoscopic cholecystectomy 1996. 2. Coronary artery stent. 3. Lap band 2004. 4. AV fistula. 5. Abdominal debridement and panniculectomy. ALLERGIES 1. CLARITHROMYCIN. 2. FERROUS FUMARATE. 3. FERROUS SULFATE. 4. FERUMOXYTOL. 5. IRON. 6. MORPHINE. 7. MULTIPLE VITAMINS WITH IRON. ANTIBIOTICS: Ertapenem Fluconazole. OBJECTIVE: Vital Signs Date Time Temp Pulse Resp B/P (MAP) Pulse Ox O2 Delivery O2 Flow Rate FiO2 05/01/17 11:38 Room Air 05/01/17 08:00 97.5 73 18 172/70 (104) 97 05/01/17 04:00 98.2 60 17 140/69 (92) 99 05/01/17 03:53 58 05/01/17 00:00 98.2 58 16 147/63 (91) 98 04/30/17 20:00 97.8 58 15 157/91 (113) 99 04/30/17 19:00 Room Air 04/30/17 16:04 98.9 57 22 160/61 (94) 100 04/30/17 16:00 62 Microbiology Date/Time Source Procedure Growth Status 04/28/17 21:45 Urine Catheterized Urine Urine Culture - Final Pseudomonas Aeruginosa Multi-Drug Resistant Complete IMAGING: Soft Tissue Ultrasound 04/21/17 0000 Signed Impressions: Service Date/Time: Friday, April 21, 2017 19:30 - CONCLUSION: 1. No mass or fluid collection identified in the area of palpable abnormality. Lucio Jacobs MD PHYSICAL EXAMINATION GENERAL: Alert and awake. No acute distress. HEENT: No icterus. No conjunctival erythema. Oropharynx moist mucosa without lesions. NECK: Supple without adenopathy. LUNGS: Clear. HEART: Regular rate and rhythm without murmurs, rubs or gallops. ABDOMEN: Obese, soft. The patient has firm nodular lesions at the abdomen in two locations on the left upper quadrant and left lower quadrant, less erythema. tender on palpation. Mujica - urine clear yellow. EXTREMITIES: No clubbing, cyanosis or edema. Chronic tree bark changes at the lower extremities and an ulceration of the right tibia which has a dressing over it. The skin has no diffuse rash. NEUROLOGIC: No gross focal findings. PSYCH: Calm and cooperative. IMPRESSION 1. Urinary tract infection due to gram-negative bacteria. Klebsiella and pseudomonas. Repeat urine culture still has pseudomonas, reduced count. 2. Abdominal wall skin lesions. Ulcerated wound with drainage - culture negative. 3. End-stage renal disease. RECOMMENDATIONS 1. Stop Ertapenem. 2. Change mujica catheter and repeat urine culture. 3. Tobramycin IV while awaiting new repeat urine culture. 4. Doxycycline PO for the abdominal wall lesions x 10 days. Chu Neville MD May 01, 2017 13:38
--- NOTE | 2017-05-01 15:49 | HHI.NPPN ---
Subjective General Problems: Anemia Renal Failure: End Stage Renal Disease History of Present Illness This is a 56-year-old female with past medical history of diabetes mellitus, ischemic heart disease, hypertension, hyperlipidemia, anxiety disorder, hypothyroidism, morbid obesity, history of multiple abdomen and thigh wounds who came to the hospital with complaint of nausea, vomiting and generalized weakness.The patient has history of end-stage renal disease on hemodialysis Friday, and Friday but she has been missing her dialysis. The last time she was dialyzed was about a week ago. The patient has multiple wounds and she has been getting wound care at home. There is no history of fever but she has a Ruiz catheter and she has a colostomy. The patient denies any history of diarrhea but she has nausea and vomiting. She has been missing dialysis because of the pain that she gets and she is lifted by the [employer] for transportation. I suggested the possibility of home hemodialysis but the son does not think that he can help her with this. Additional Remarks Patient is alert, No SOB. Continues to have hallucinations off and on. Review of Systems General Constitutional: Fatigue Respiratory Respiratory Remarks Denies any SOB Cardiovascular Cardiac Remarks Denies any CP Objective Data Data Vital Signs Date Time Temp Pulse Resp B/P (MAP) Pulse Ox O2 Delivery O2 Flow Rate FiO2 05/01/17 13:43 22 05/01/17 11:38 Room Air 05/01/17 08:00 97.5 73 18 172/70 (104) 97 05/01/17 04:00 98.2 60 17 140/69 (92) 99 05/01/17 03:53 58 05/01/17 00:00 98.2 58 16 147/63 (91) 98 04/30/17 20:00 97.8 58 15 157/91 (113) 99 04/30/17 19:00 Room Air 04/30/17 16:04 98.9 57 22 160/61 (94) 100 04/30/17 16:00 62 -: 04/28/17 0903 04/28/17 0903 Physical Exam General Appearance: No Acute Distress, Obese Eyes Eye Exam: Pupils Equal Throat Throat Exam: Oral Mucosa [place] & Moist Pulmonary Resp Exam: Clear Bilaterally, Breath Sounds Equal, No Distress Cardiology CV Exam: Regular, Normal Sinus Rhythm Gastrointestinal/Abdomen GI Exam: Non-Tender, Bowel Sounds Present Genitourinary Exam: Flank Non-Tender Integumentary Skin Exam: Ulcer(s) Neurologic Neuro Exam: Alert, Awake, Oriented Psychiatric Psych Exam: Appropriate Responses Assessment/Plan Discussed Condition With: Patient Assessment Summary: End Stage Renal Disease Problem List: (1) End stage kidney disease ICD Codes: N18.6 - End stage renal disease Status: Chronic Plan: Dialysis MWF Discussed with the patient and the family about the importance of continuing the dialysis regularly. ESBL UTI and wound infections. Epogen with dialysis Seen during Dialysis complains of hallucinations off and on. Seen by Psychiatry, and started on Seroquel. ID follow up noted, now on Tobramycin and Doxycycline. (2) UTI (urinary tract infection) ICD Codes: N39.0 - Urinary tract infection, site not specified (3) Hyperkalemia ICD Codes: E87.5 - Hyperkalemia Status: Acute (4) Anemia in chronic kidney disease (CKD) ICD Codes: N18.9 - Chronic kidney disease, unspecified; D63.1 - Anemia in chronic kidney disease Status: Acute Plan: Resolved (5) Wounds, multiple ICD Codes: T07 - Unspecified multiple injuries Status: Acute Valentin Jimenez MD May 01, 2017 15:49
[2017-05-01] MEDS ORDERED: TOBRAMYCIN INJ 400 MG in SODIUM CHLORIDE 0.9% INJ 100 ML IV SCH (16:00)
[2017-05-01] MEDS: WARFARIN SOD 1 MG TAB PO SCH (16:15)
[2017-05-01] MEDS: SODIUM CHLORIDE 0.9% FLUSH 10 ML FLUSH IV FLUSH SCH (21:07)
[2017-05-01] MEDS: ATORVASTATIN 40 MG TAB PO SCH (21:08)
[2017-05-02] VITALS (7 sets, daily range): BP systolic 108–147; BP diastolic 50–61; PULSE 50–61; RESP 18–20; TEMP 97.8–98.8; O2SAT 95–100
[2017-05-02] MEDS: LEVOTHYROXINE SODIUM 150 MCG TAB PO SCH (05:12)
[2017-05-02 07:23] LABS: INTERNATIONAL NORMALIZED RATIO 2.6 RATIO; PROTHROMBIN TIME - PATIENT 26.2 SEC (9.8-11.6)
[2017-05-02] MEDS: SODIUM CHLORIDE 0.9% FLUSH 10 ML FLUSH IV FLUSH SCH ×2 (07:29→21:11)
[2017-05-02] MEDS: INSULIN ASPART SUPPLEMENTAL SCALE SQ SCH ×4 (07:56→21:00)
[2017-05-02] MEDS: DOXYCYCLINE HYCLATE 100 MG CAP PO SCH ×2 (08:42→21:08)
[2017-05-02] MEDS: QUEtiapine FUMARATE 25 MG TAB PO SCH ×3 (08:42→18:00)
[2017-05-02] MEDS: GABAPENTIN 100 MG CAP PO SCH ×2 (08:43→21:10)
[2017-05-02] MEDS: COLLAGENASE OINT 30 GM TUBE TOPICAL SCH (08:43)
[2017-05-02] MEDS: OXYBUTYNIN CHLORIDE 5 MG TAB PO SCH ×2 (08:43→21:08)
[2017-05-02] MEDS: PARoxetine HCL 20 MG TAB PO SCH (08:43)
[2017-05-02] MEDS: FLUCONAZOLE 100 MG TAB PO SCH (08:43)
[2017-05-02] MEDS: CALCIUM CARBONATE 500 MG CHEWABLE TAB CHEW SCH ×2 (08:43→21:09)
--- NOTE | 2017-05-02 08:45 | HHI.PR ---
Subjective Remarks definitely states no visual, auditory or tactile hallucinations "gone" no nausea or vomiting chronic back pain Objective Vitals Vital Signs Date Time Temp Pulse Resp B/P (MAP) Pulse Ox O2 Delivery O2 Flow Rate FiO2 05/02/17 04:00 97.9 50 20 138/57 (84) 95 05/02/17 04:00 50 05/02/17 00:00 97.8 53 20 147/56 (86) 99 05/01/17 23:50 52 05/01/17 20:05 57 05/01/17 20:00 98.1 55 22 161/55 (90) 100 05/01/17 20:00 Room Air 05/01/17 16:00 97.6 57 20 123/58 (79) 98 05/01/17 13:43 22 05/01/17 12:00 97.8 61 18 166/63 (97) 99 05/01/17 11:38 Room Air I/O 05/01/17 05/01/17 05/01/17 05/02/17 05/02/17 05/02/17 07:00 15:00 23:00 07:00 15:00 23:00 Intake Total 480 ml 580 ml 240 ml Output Total 630 ml 850 ml 500 ml Balance -150 ml -270 ml -260 ml Intake Oral 480 ml 480 ml 240 ml IV Total 100 ml Output Urine Total 630 ml 850 ml 250 ml Stool Total 250 ml Result Diagram: 04/28/17 0903 04/28/17 0903 Imaging Last Impressions Soft Tissue Ultrasound 04/21/17 0000 Signed Impressions: Service Date/Time: Friday, April 21, 2017 19:30 - CONCLUSION: 1. No mass or fluid collection identified in the area of palpable abnormality. Lucio Jacobs MD Objective Remarks awake and alert, no acute distress, and o x 3, interactive, no nuchal rigidity, pupils equal lungs- no rales regular rhythm abdomen- wounds- drying up colostomy with brown stools extremities - dry skin neuro exam- non focal mujica in place- draining clear yellow urine Procedures HD Urinary Catheter: Yes Assessment to: Continue Mujica insert reason: Prolonged Immobilization Date of Insertion: May 01, 2017 A/P Problem List: (1) Hyperkalemia ICD Code: E87.5 - Hyperkalemia Status: Acute (2) End stage kidney disease ICD Code: N18.6 - End stage renal disease Status: Chronic Assessment and Plan Chronically ill 56-year-old female with past medical history of ESRD on HD, HLD , CHF, anxiety, DM, hypothyroidism, kidney, chronic wounds, chronic indwelling Mujica who came to ER with nausea, vomit and missed hemodialysis for one week Acute hallucinations- visual, auditory and tactile 04/30- patient looks too good to have a stroke (on coumadin)- RESOLVED- continue to monitor refused to have head CT scan- severe claustrophobia- told her O can give Ativan- refused- "you have to totally knock me out" appreciate- Dr. Walker recommendations- consider Seroquel hold pain meds- not really getting a lot though- per patient had same reaction with Methadone in the past Complicated UTI Mujica catheter placed 04/19. - mujica changed 05/01 - Urine growing Pseudomonas. -ID ff Continue antibiotics. - On tobramycin per ID ESRD on HD- Nephrology ff Coagulopathy secondary to Coumadin INR 7.2 resolved status post vitamin K. Coumadin restarted given history of DVT. INR good . Continue to follow Nausea and vomiting and hypokalemia secondary to uremia from missed hemodialysis. Resolved Abdominal wound, leg wounds, present on admission. Worsening: Patient was receiving Bactrim and Diflucan for infected wounds outpatient. Patient without fever and leukocytosis. Abdominal lumps. Ultrasound negative for abscess or mass. Surgery consulted for biopsy but indicated biopsy is not needed. Patient had previous abdominal wall biopsy that was negative for calciphylaxis, showed stasis dermatitis. I offered the patient a CAT scan to further evaluate those subcutaneous nodules. However she refused citing claustrophobia. - Wound care team ff - started on doxycycline empirically for these abdominal wounds 04/30 x 10 days - Oxycodone -Discontinued- - Diabetes mellitus: Stable monitor fingersticks with sliding scale coverage COPD: Not currently in exacerbation Hypothyroidism: Chronic. Continue Hormonal replacement Morbid obesity strongly recommended diet and exercise. Non compliance issues. Counseled DVT prophylaxis: on Coumadin. Discharge Planning Continue IV abx. Milton Reyes MD May 02, 2017 08:45
--- NOTE | 2017-05-02 14:19 | HHI.NPPN ---
Subjective General Problems: Anemia Renal Failure: End Stage Renal Disease History of Present Illness This is a 56-year-old female with past medical history of diabetes mellitus, ischemic heart disease, hypertension, hyperlipidemia, anxiety disorder, hypothyroidism, morbid obesity, history of multiple abdomen and thigh wounds who came to the hospital with complaint of nausea, vomiting and generalized weakness.The patient has history of end-stage renal disease on hemodialysis Friday, and Friday but she has been missing her dialysis. The last time she was dialyzed was about a week ago. The patient has multiple wounds and she has been getting wound care at home. There is no history of fever but she has a Ruiz catheter and she has a colostomy. The patient denies any history of diarrhea but she has nausea and vomiting. She has been missing dialysis because of the pain that she gets and she is lifted by the [employer] for transportation. I suggested the possibility of home hemodialysis but the son does not think that he can help her with this. Additional Remarks Patient is alert, No SOB. Hallucinations have improved. Has been seen by psych (Betty Rose) Review of Systems General Constitutional: Fatigue (Betty Rose) Respiratory Respiratory Remarks Denies any SOB (Betty Rose) Cardiovascular Cardiac Remarks Denies any CP (Betty Rose) Objective Data Data Vital Signs Date Time Temp Pulse Resp B/P (MAP) Pulse Ox O2 Delivery O2 Flow Rate FiO2 05/02/17 12:00 98.8 55 18 111/61 (78) 100 05/02/17 08:00 98.1 59 18 108/50 (69) 100 05/02/17 04:00 97.9 50 20 138/57 (84) 95 05/02/17 04:00 50 05/02/17 00:00 97.8 53 20 147/56 (86) 99 05/01/17 23:50 52 05/01/17 20:05 57 05/01/17 20:00 98.1 55 22 161/55 (90) 100 05/01/17 20:00 Room Air 05/01/17 16:00 97.6 57 20 123/58 (79) 98 (Betty Rose) -: 04/28/17 0903 04/28/17 0903 Physical Exam General Appearance: No Acute Distress, Obese (Betty Rose) Eyes Eye Exam: Pupils Equal (Betty Rose) Throat Throat Exam: Oral Mucosa [place] & Moist (Betty Rose) Pulmonary Resp Exam: Clear Bilaterally, Breath Sounds Equal, No Distress (Betty Rose) Cardiology CV Exam: Regular, Normal Sinus Rhythm (Betty Rose) Gastrointestinal/Abdomen GI Exam: Non-Tender, Bowel Sounds Present GI Remarks colostomy Abdominal tenderness (Betty Rose) Genitourinary Exam: Flank Non-Tender (Betty Rose) Integumentary Skin Exam: Ulcer(s) Skin Remarks Multiple areas of chronic wounds including on the pannus of the stomach, the lateral thigh on the left, thigh on the right, and the sacrum. Extensive chronic skin changes in both lower extremities. (Betty Rose) Neurologic Neuro Exam: Alert, Awake, Oriented (Betty Rose) Psychiatric Psych Exam: Appropriate Responses (Betty Rose) Assessment/Plan Discussed Condition With: Patient Assessment Summary: End Stage Renal Disease Problem List: (1) End stage kidney disease ICD Codes: N18.6 - End stage renal disease Status: Chronic Plan: Dialysis MWF ESBL UTI and wound infections on Tobramycin and Doxycycline. Epogen with dialysis complains of hallucinations off and on. Seen by Psychiatry, and started on Seroquel. Patient might be transferred to psych at discharge for further evaluation Dialysis planned for today (2) UTI (urinary tract infection) ICD Codes: N39.0 - Urinary tract infection, site not specified (3) Hyperkalemia ICD Codes: E87.5 - Hyperkalemia Status: Acute (4) Anemia in chronic kidney disease (CKD) ICD Codes: N18.9 - Chronic kidney disease, unspecified; D63.1 - Anemia in chronic kidney disease Status: Acute Plan: Resolved (5) Wounds, multiple ICD Codes: T07 - Unspecified multiple injuries Status: Acute (Betty Rose) Problem List: (1) End stage kidney disease ICD Codes: N18.6 - End stage renal disease Status: Chronic Plan: Dialysis MWF ESBL UTI and wound infections on Tobramycin and Doxycycline. Epogen with dialysis complains of hallucinations off and on. Seen by Psychiatry, and started on Seroquel. Patient might be transferred to psych at discharge for further evaluation Dialysis planned for today. Patient seen and examined, agree with above. Continue antibiotics as per ID. Psychiatry following. (2) UTI (urinary tract infection) ICD Codes: N39.0 - Urinary tract infection, site not specified (3) Hyperkalemia ICD Codes: E87.5 - Hyperkalemia Status: Acute (4) Anemia in chronic kidney disease (CKD) ICD Codes: N18.9 - Chronic kidney disease, unspecified; D63.1 - Anemia in chronic kidney disease Status: Acute Plan: Resolved (5) Wounds, multiple ICD Codes: T07 - Unspecified multiple injuries Status: Acute (Valentin Jimenez MD) Betty Rose May 02, 2017 14:19 Valentin Jimenez MD May 02, 2017 23:10
[2017-05-02] MEDS: WARFARIN SOD 1 MG TAB PO SCH (15:54)
[2017-05-02] MEDS: ATORVASTATIN 40 MG TAB PO SCH (21:09)
[2017-05-02] MEDS ORDERED: PADIMATE (CHAPSTICK) 4.5 GM TUBE TOPICAL PRN (23:45)
[2017-05-03] VITALS (8 sets, daily range): BP systolic 114–155; BP diastolic 56–94; PULSE 55–84; RESP 16–18; TEMP 97.4–98.6; O2SAT 97–100
[2017-05-03] MEDS: LEVOTHYROXINE SODIUM 150 MCG TAB PO SCH (05:50)
[2017-05-03] MEDS: INSULIN ASPART SUPPLEMENTAL SCALE SQ SCH ×4 (08:00→21:00)
[2017-05-03] MEDS: PARoxetine HCL 20 MG TAB PO SCH (08:44)
[2017-05-03] MEDS: FLUCONAZOLE 100 MG TAB PO SCH (08:44)
[2017-05-03] MEDS: OXYBUTYNIN CHLORIDE 5 MG TAB PO SCH ×2 (08:44→22:42)
[2017-05-03] MEDS: CALCIUM CARBONATE 500 MG CHEWABLE TAB CHEW SCH ×2 (08:44→22:41)
[2017-05-03] MEDS: DOXYCYCLINE HYCLATE 100 MG CAP PO SCH ×2 (08:44→22:41)
[2017-05-03] MEDS: GABAPENTIN 100 MG CAP PO SCH ×2 (08:45→22:41)
[2017-05-03] MEDS: QUEtiapine FUMARATE 25 MG TAB PO SCH ×3 (08:45→18:01)
[2017-05-03] MEDS: SODIUM CHLORIDE 0.9% FLUSH 10 ML FLUSH IV FLUSH SCH ×2 (08:45→22:42)
[2017-05-03 10:35] LABS: INTERNATIONAL NORMALIZED RATIO 2.2 RATIO; PROTHROMBIN TIME - PATIENT 21.9 SEC (9.8-11.6)
--- NOTE | 2017-05-03 10:42 | HHI.PR ---
Subjective Remarks lower abdominal discomfort- states no more hallucinations states she has been on [place] for a long time no nausea or vomiting Objective Vitals Vital Signs Date Time Temp Pulse Resp B/P (MAP) Pulse Ox O2 Delivery O2 Flow Rate FiO2 05/03/17 08:00 98.4 74 18 155/66 (95) 100 05/03/17 04:00 75 05/03/17 04:00 98.1 73 16 144/59 (87) 99 05/03/17 00:00 98.6 64 18 115/68 (84) 99 05/03/17 00:00 65 05/02/17 20:00 98.1 59 20 113/51 (71) 99 05/02/17 20:00 Room Air 05/02/17 12:15 57 05/02/17 12:00 98.8 55 18 111/61 (78) 100 I/O 05/02/17 05/02/17 05/02/17 05/03/17 05/03/17 05/03/17 07:00 15:00 23:00 07:00 15:00 23:00 Intake Total 240 ml 480 ml 600 ml Output Total 500 ml 400 ml 2000 ml 600 ml Balance -260 ml 80 ml -2000 ml 0 ml Intake Oral 240 ml 480 ml 600 ml Output Urine Total 250 ml 400 ml 600 ml Stool Total 250 ml Hemodialysis 2000 ml # Bowel Movements 1 Imaging Last Impressions Soft Tissue Ultrasound 04/21/17 0000 Signed Impressions: Service Date/Time: Friday, April 21, 2017 19:30 - CONCLUSION: 1. No mass or fluid collection identified in the area of palpable abnormality. Lucio Jacobs MD Objective Remarks awake and alert, no acute distress, a and o x 3, interactive, no nuchal rigidity, pupils equal lungs- no rales regular rhythm abdomen- wounds- drying up colostomy with brown stools extremities - dry skin neuro exam- non focal mujica in place- draining clear yellow urine Procedures HD Urinary Catheter: Yes Assessment to: Continue Mujica insert reason: Prolonged Immobilization Date of Insertion: May 01, 2017 A/P Problem List: (1) Hyperkalemia ICD Code: E87.5 - Hyperkalemia Status: Acute (2) End stage kidney disease ICD Code: N18.6 - End stage renal disease Status: Chronic Assessment and Plan Chronically ill 56-year-old female with past medical history of ESRD on HD, HLD , CHF, anxiety, DM, hypothyroidism, kidney, chronic wounds, chronic indwelling Mujica who came to ER with nausea, vomit and missed hemodialysis for one week Acute hallucinations-- Resolved visual, auditory and tactile 04/30- patient looks too good to have a stroke ( on coumadin)-continue to monitor refused to have head CT scan- severe claustrophobia- told her O can give Ativan- refused- "you have to totally knock me out" appreciate psychiatry ff. on Seroquel on Oxycodone- increase to q 6 prn Complicated UTI Mujica catheter placed 04/19. - changed 05/01 - Urine growing Pseudomonas. -Repeat urine cultures on 04/24/17 growing- Pseudomonas- on tobramycin per ID dosing. Continue to monitor. -ID ff ESRD on HD- Nephrology ff Coagulopathy secondary to Coumadin INR 7.2 resolved status post vitamin K. Coumadin restarted given history of DVT. INR good . Continue to follow Nausea and vomiting and hypokalemia secondary to uremia from missed hemodialysis. Resolved Abdominal wound, leg wounds, present on admission. Worsening: Patient was receiving Bactrim and Diflucan for infected wounds outpatient. Patient without fever and leukocytosis. Abdominal lumps. Ultrasound negative for abscess or mass. Surgery consulted for biopsy but indicated biopsy is not needed. Patient had previous abdominal wall biopsy that was negative for calciphylaxis, showed stasis dermatitis. I offered the patient a CAT scan to further evaluate those subcutaneous nodules. However she refused citing claustrophobia. - Wound care team ff - started on doxycycline empirically for these abdominal wounds 04/30 - Oxycodone -Discontinued- Diabetes mellitus: Stable monitor fingersticks with sliding scale coverage COPD: Not currently in exacerbation Hypothyroidism: Chronic. Continue Hormonal replacement Morbid obesity strongly recommended diet and exercise. Non compliance issues. Counseled DVT prophylaxis: on Coumadin. Discharge Planning Continue IV abx. Milton Reyes MD May 03, 2017 10:41
[2017-05-03] MEDS: COLLAGENASE OINT 30 GM TUBE TOPICAL SCH (15:10)
--- NOTE | 2017-05-03 15:39 | HHI.IDPN ---
Note Infectious Disease Note Patient feels okay. no longer has hallucinations. Awake and alert. No chills. No REYES. Afebrile. Repeat urine culture has < 10,000 cols of group D enterococcus. The patient presented to the emergency department with nausea and vomiting. missed a week of dialysis. She has end-stage renal disease and receives hemodialysis three times a week. The patient is morbidly obese. She states to me that she gets bladder spasms and she has some leakage around her Ruiz catheter which is in place for the urine. She has had the chronic Ruiz catheter for months. She states that it was last changed two weeks ago and that after she was admitted here this admission it was changed again. PAST MEDICAL HISTORY 1. C. difficile colitis. 2. Diabetes mellitus. 3. Hypertension. 4. Osteoarthritis. 5. Coronary artery disease. 6. End-stage renal disease. 7. Hypothyroidism. 8. Sleep apnea. 9. Spinal stenosis. PAST SURGICAL HISTORY 1. Laparoscopic cholecystectomy 1996. 2. Coronary artery stent. 3. Lap band 2004. 4. AV fistula. 5. Abdominal debridement and panniculectomy. ALLERGIES 1. CLARITHROMYCIN. 2. FERROUS FUMARATE. 3. FERROUS SULFATE. 4. FERUMOXYTOL. 5. IRON. 6. MORPHINE. 7. MULTIPLE VITAMINS WITH IRON. ANTIBIOTICS: Doxycycline. Fluconazole. Received dose of Tobraymcin. OBJECTIVE: Microbiology Date/Time Source Procedure Growth Status 05/01/17 13:30 Urine Catheterized Urine Urine Culture - Preliminary Group D Enterococcus Resulted Vital Signs Date Time Temp Pulse Resp B/P (MAP) Pulse Ox O2 Delivery O2 Flow Rate FiO2 05/01/17 11:38 Room Air 05/01/17 08:00 97.5 73 18 172/70 (104) 97 05/01/17 04:00 98.2 60 17 140/69 (92) 99 05/01/17 03:53 58 05/01/17 00:00 98.2 58 16 147/63 (91) 98 04/30/17 20:00 97.8 58 15 157/91 (113) 99 04/30/17 19:00 Room Air 04/30/17 16:04 98.9 57 22 160/61 (94) 100 04/30/17 16:00 62 IMAGING: Soft Tissue Ultrasound 04/21/17 0000 Signed Impressions: Service Date/Time: Friday, April 21, 2017 19:30 - CONCLUSION: 1. No mass or fluid collection identified in the area of palpable abnormality. Lucio Jacobs MD PHYSICAL EXAMINATION GENERAL: Alert and awake. No acute distress. HEENT: No icterus. No conjunctival erythema. Oropharynx moist mucosa without lesions. NECK: Supple without adenopathy. LUNGS: Clear. HEART: Regular rate and rhythm without murmurs, rubs or gallops. ABDOMEN: Obese, soft. The patient has firm nodular lesions at the abdomen in two locations on the left upper quadrant and left lower quadrant. tender on palpation. Ruiz - urine clear yellow. EXTREMITIES: No clubbing, cyanosis or edema. Chronic tree bark changes at the lower extremities and an ulceration of the right tibia which has a dressing over it. SKIN: No rash. NEUROLOGIC: No gross focal findings. PSYCH: Calm and cooperative. IMPRESSION 1. Urinary tract infection due to gram-negative bacteria. Klebsiella and pseudomonas. Resolved. 2. Abdominal wall skin lesions. Ulcerated wound with drainage - culture negative. 3. End-stage renal disease. RECOMMENDATIONS Doxycycline PO for the abdominal wall lesions x 10 days. Can be discharged tomorrow from ID standpoint. Chu Neville MD May 03, 2017 15:39
[2017-05-03] MEDS: WARFARIN SOD 1 MG TAB PO SCH (16:34)
--- NOTE | 2017-05-03 17:55 | HHI.NPPN ---
Subjective General Problems: Anemia Renal Failure: End Stage Renal Disease History of Present Illness This is a 56-year-old female with past medical history of diabetes mellitus, ischemic heart disease, hypertension, hyperlipidemia, anxiety disorder, hypothyroidism, morbid obesity, history of multiple abdomen and thigh wounds who came to the hospital with complaint of nausea, vomiting and generalized weakness.The patient has history of end-stage renal disease on hemodialysis Friday, and Friday but she has been missing her dialysis. The last time she was dialyzed was about a week ago. The patient has multiple wounds and she has been getting wound care at home. There is no history of fever but she has a Ruiz catheter and she has a colostomy. The patient denies any history of diarrhea but she has nausea and vomiting. She has been missing dialysis because of the pain that she gets and she is lifted by the Kat[employer] for transportation. I suggested the possibility of home hemodialysis but the son does not think that he can help her with this. Additional Remarks No acute complaints, tolerated HD yesterday. Review of Systems General Constitutional: Fatigue Respiratory Respiratory Remarks Denies any SOB Cardiovascular Cardiac Remarks Denies any CP Objective Data Data Vital Signs Date Time Temp Pulse Resp B/P (MAP) Pulse Ox O2 Delivery O2 Flow Rate FiO2 05/03/17 16:00 98.4 63 18 136/58 (84) 100 05/03/17 12:00 98.4 63 18 114/56 (75) 97 05/03/17 08:00 98.4 74 18 155/66 (95) 100 05/03/17 04:00 75 05/03/17 04:00 98.1 73 16 144/59 (87) 99 05/03/17 00:00 98.6 64 18 115/68 (84) 99 05/03/17 00:00 65 05/02/17 20:00 98.1 59 20 113/51 (71) 99 05/02/17 20:00 Room Air Physical Exam General Appearance: No Acute Distress, Obese Eyes Eye Exam: Pupils Equal Throat Throat Exam: Oral Mucosa [place] & Moist Pulmonary Resp Exam: Clear Bilaterally, Breath Sounds Equal, No Distress Cardiology CV Exam: Regular, Normal Sinus Rhythm Gastrointestinal/Abdomen GI Exam: Non-Tender, Bowel Sounds Present Genitourinary Exam: Flank Non-Tender Integumentary Skin Exam: Ulcer(s) Neurologic Neuro Exam: Alert, Awake, Oriented Psychiatric Psych Exam: Appropriate Responses Assessment/Plan Discussed Condition With: Patient Assessment Summary: End Stage Renal Disease Problem List: (1) End stage kidney disease ICD Codes: N18.6 - End stage renal disease Status: Chronic Plan: Dialysis MWF ESBL UTI and wound infections - following with ID, on Doxycycline. Epogen with dialysis complains of hallucinations off and on. - improved now Seen by Psychiatry, and started on Seroquel. HD done yesterday, plan next HD Friday (2) UTI (urinary tract infection) ICD Codes: N39.0 - Urinary tract infection, site not specified (3) Hyperkalemia ICD Codes: E87.5 - Hyperkalemia Status: Acute (4) Anemia in chronic kidney disease (CKD) ICD Codes: N18.9 - Chronic kidney disease, unspecified; D63.1 - Anemia in chronic kidney disease Status: Acute Plan: Resolved (5) Wounds, multiple ICD Codes: T07 - Unspecified multiple injuries Status: Acute Bradly Sanchez MD May 03, 2017 17:54
[2017-05-03] MEDS: ATORVASTATIN 40 MG TAB PO SCH (22:41)
[2017-05-04] VITALS (9 sets, daily range): BP systolic 107–159; BP diastolic 50–70; PULSE 53–77; RESP 16–20; TEMP 97.3–98.8; O2SAT 97–100
[2017-05-04] MEDS: LEVOTHYROXINE SODIUM 150 MCG TAB PO SCH (06:18)
[2017-05-04] MEDS: INSULIN ASPART SUPPLEMENTAL SCALE SQ SCH ×4 (08:00→21:00)
[2017-05-04 08:24] LABS: PROTHROMBIN TIME - PATIENT 20.5 SEC (9.8-11.6)
[2017-05-04] MEDS: FLUCONAZOLE 100 MG TAB PO SCH (08:48)
[2017-05-04] MEDS: CALCIUM CARBONATE 500 MG CHEWABLE TAB CHEW SCH ×2 (08:48→21:58)
[2017-05-04] MEDS: PARoxetine HCL 20 MG TAB PO SCH (08:48)
[2017-05-04] MEDS: QUEtiapine FUMARATE 25 MG TAB PO SCH ×3 (08:48→17:48)
[2017-05-04] MEDS: OXYBUTYNIN CHLORIDE 5 MG TAB PO SCH ×2 (08:48→21:58)
[2017-05-04] MEDS: GABAPENTIN 100 MG CAP PO SCH ×2 (08:48→21:58)
[2017-05-04] MEDS: DOXYCYCLINE HYCLATE 100 MG CAP PO SCH ×2 (08:48→21:58)
[2017-05-04] MEDS: SODIUM CHLORIDE 0.9% FLUSH 10 ML FLUSH IV FLUSH SCH ×2 (08:50→21:58)
[2017-05-04] MEDS: COLLAGENASE OINT 30 GM TUBE TOPICAL SCH (08:51)
--- NOTE | 2017-05-04 10:01 | HHI.PR ---
Subjective Remarks Ms Foley is awake and alert, very interactive denies any visual or auditory hallucinations "I feel great" Objective Vitals Vital Signs Date Time Temp Pulse Resp B/P (MAP) Pulse Ox O2 Delivery O2 Flow Rate FiO2 05/04/17 08:00 98.7 75 20 120/57 (78) 97 05/04/17 04:00 97.3 71 18 130/70 (90) 98 05/04/17 04:00 Room Air 05/04/17 03:47 58 05/04/17 00:00 97.9 59 16 159/60 (93) 100 05/04/17 00:00 Room Air 05/03/17 23:46 56 05/03/17 20:00 97.4 58 16 118/94 (102) 99 05/03/17 20:00 Room Air 05/03/17 19:47 55 05/03/17 16:00 98.4 63 18 136/58 (84) 100 05/03/17 12:00 98.4 63 18 114/56 (75) 97 05/03/17 12:00 61 I/O 05/03/17 05/03/17 05/03/17 05/04/17 05/04/17 05/04/17 07:00 15:00 23:00 07:00 15:00 23:00 Intake Total 600 ml 480 ml 520 ml Output Total 600 ml 800 ml 350 ml Balance 0 ml -320 ml 170 ml Intake Oral 600 ml 480 ml 520 ml Output Urine Total 600 ml 800 ml 350 ml # Bowel Movements 1 Imaging Last Impressions Soft Tissue Ultrasound 04/21/17 0000 Signed Impressions: Service Date/Time: Friday, April 21, 2017 19:30 - CONCLUSION: 1. No mass or fluid collection identified in the area of palpable abnormality. Lucio Jacobs MD Objective Remarks awake and alert, no acute distress, a and o x 3, interactive, no nuchal rigidity, pupils equal lungs- no rales regular rhythm abdomen- wounds- dry- no erythema colostomy with brown stools extremities - dry skin neuro exam- non focal mujica in place- draining clear yellow urine Procedures HD Urinary Catheter: Yes Assessment to: Continue Mujica insert reason: Prolonged Immobilization Date of Insertion: May 01, 2017 A/P Problem List: (1) Hyperkalemia ICD Code: E87.5 - Hyperkalemia Status: Acute (2) End stage kidney disease ICD Code: N18.6 - End stage renal disease Status: Chronic Assessment and Plan 56-year-old female with past medical history of ESRD on HD, HLD, CHF, anxiety, DM, hypothyroidism, kidney, chronic wounds, chronic indwelling Mujica who came to ER with nausea, vomit and missed hemodialysis for one week Acute hallucinations-- Resolved visual, auditory and tactile 04/30- patient looks too good to have a stroke ( on coumadin)-continue to monitor refused to have head CT scan- severe claustrophobia- told her O can give Ativan- refused- "you have to totally knock me out" appreciate psychiatry ff. on Seroquel on Oxycodone- q 6 prn Complicated UTI Mujica catheter placed 04/19. - changed 05/01 - Urine growing Pseudomonas. -Repeat urine cultures on 04/24/17 growing- Pseudomonas- on tobramycin per ID dosing. Continue to monitor. -ID ff ESRD on HD- Nephrology ff Coagulopathy secondary to Coumadin INR 7.2 resolved status post vitamin K. Coumadin restarted given history of DVT. INR good . Continue to follow Nausea and vomiting and hypokalemia secondary to uremia from missed hemodialysis. Resolved Abdominal wound, leg wounds, present on admission. Worsening: Patient was receiving Bactrim and Diflucan for infected wounds outpatient. Patient without fever and leukocytosis. Abdominal lumps. Ultrasound negative for abscess or mass. Surgery consulted for biopsy but indicated biopsy is not needed. Patient had previous abdominal wall biopsy that was negative for calciphylaxis, showed stasis dermatitis. I offered the patient a CAT scan to further evaluate those subcutaneous nodules. However she refused citing claustrophobia. - Wound care team ff - started on doxycycline empirically for these abdominal wounds 04/30 x 10 days \\ Diabetes mellitus: Stable monitor fingersticks with sliding scale coverage COPD: Not currently in exacerbation Hypothyroidism: Chronic. Continue Hormonal replacement Morbid obesity strongly recommended diet and exercise. Non compliance issues. Counseled DVT prophylaxis: on Coumadin. DC home tomorraw after HD will resume cazre with [facility]- they will call Milton Reyes MD May 04, 2017 10:01
--- NOTE | 2017-05-04 16:34 | HHI.NPPN ---
Subjective General Problems: Anemia Renal Failure: End Stage Renal Disease History of Present Illness This is a 56-year-old female with past medical history of diabetes mellitus, ischemic heart disease, hypertension, hyperlipidemia, anxiety disorder, hypothyroidism, morbid obesity, history of multiple abdomen and thigh wounds who came to the hospital with complaint of nausea, vomiting and generalized weakness.The patient has history of end-stage renal disease on hemodialysis Friday, and Friday but she has been missing her dialysis. The last time she was dialyzed was about a week ago. The patient has multiple wounds and she has been getting wound care at home. There is no history of fever but she has a Ruiz catheter and she has a colostomy. The patient denies any history of diarrhea but she has nausea and vomiting. She has been missing dialysis because of the pain that she gets and she is lifted by the [employer] for transportation. I suggested the possibility of home hemodialysis but the son does not think that he can help her with this. Additional Remarks No acute complaints, feeling better today. Review of Systems General Constitutional: Fatigue Respiratory Respiratory Remarks Denies any SOB Cardiovascular Cardiac Remarks Denies any CP Objective Data Data Vital Signs Date Time Temp Pulse Resp B/P (MAP) Pulse Ox O2 Delivery O2 Flow Rate FiO2 05/04/17 12:00 98.8 66 20 107/50 (69) 97 05/04/17 08:00 98.7 75 20 120/57 (78) 97 05/04/17 04:00 97.3 71 18 130/70 (90) 98 05/04/17 04:00 Room Air 05/04/17 03:47 58 05/04/17 00:00 97.9 59 16 159/60 (93) 100 05/04/17 00:00 Room Air 05/03/17 23:46 56 05/03/17 20:00 97.4 58 16 118/94 (102) 99 05/03/17 20:00 Room Air 05/03/17 19:47 55 Physical Exam General Appearance: No Acute Distress, Obese Eyes Eye Exam: Pupils Equal Throat Throat Exam: Oral Mucosa [place] & Moist Pulmonary Resp Exam: Clear Bilaterally, Breath Sounds Equal, No Distress Cardiology CV Exam: Regular, Normal Sinus Rhythm Gastrointestinal/Abdomen GI Exam: Non-Tender, Bowel Sounds Present Genitourinary Exam: Flank Non-Tender Integumentary Skin Exam: Ulcer(s) Neurologic Neuro Exam: Alert, Awake, Oriented Psychiatric Psych Exam: Appropriate Responses Assessment/Plan Discussed Condition With: Patient Assessment Summary: End Stage Renal Disease Problem List: (1) End stage kidney disease ICD Codes: N18.6 - End stage renal disease Status: Chronic Plan: Dialysis MWF ESBL UTI and wound infections - following with ID, on Doxycycline. Epogen with dialysis complained of hallucinations off and on. - improved now Seen by Psychiatry, and started on Seroquel. HD done Friday, plan next HD Friday Left radiocephalic AVF with good thrill - continue to use as outpatient until ready for catheter removal. (2) UTI (urinary tract infection) ICD Codes: N39.0 - Urinary tract infection, site not specified (3) Hyperkalemia ICD Codes: E87.5 - Hyperkalemia Status: Acute (4) Anemia in chronic kidney disease (CKD) ICD Codes: N18.9 - Chronic kidney disease, unspecified; D63.1 - Anemia in chronic kidney disease Status: Acute Plan: Resolved (5) Wounds, multiple ICD Codes: T07 - Unspecified multiple injuries Status: Acute Bradly Sanchez MD May 04, 2017 16:34
[2017-05-04] MEDS: WARFARIN SOD 1 MG TAB PO SCH (16:46)
[2017-05-04] MEDS: ALPRAZolam 0.25 MG TAB PO PRN (21:58)
[2017-05-04] MEDS: ATORVASTATIN 40 MG TAB PO SCH (21:58)
[2017-05-05 00:17] VITALS: BP 114/49; PULSE 58; RESP 19; TEMP 98; O2SAT 95
[2017-05-05 03:46] VITALS: PULSE 57
[2017-05-05 04:00] VITALS: BP 168/65; PULSE 63; RESP 17; TEMP 98.3; O2SAT 96
[2017-05-05] MEDS: LEVOTHYROXINE SODIUM 150 MCG TAB PO SCH (05:40)
[2017-05-05 07:11] LABS: INTERNATIONAL NORMALIZED RATIO 2.3 RATIO; PROTHROMBIN TIME - PATIENT 22.9 SEC (9.8-11.6)
[2017-05-05] MEDS: INSULIN ASPART SUPPLEMENTAL SCALE SQ SCH ×3 (08:00→17:51)
[2017-05-05 08:01] VITALS: BP 155/62; PULSE 67; RESP 18; TEMP 98.4; O2SAT 97
--- NOTE | 2017-05-05 08:52 | HHI.PR ---
Subjective Remarks feels great, no hallucinations looking forward to going home- states she is happy with [facility] and they will ff her Objective Vitals Vital Signs Date Time Temp Pulse Resp B/P (MAP) Pulse Ox O2 Delivery O2 Flow Rate FiO2 05/05/17 04:00 Room Air 05/05/17 04:00 98.3 63 17 168/65 (99) 96 05/05/17 03:46 57 05/05/17 00:17 98.0 58 19 114/49 (70) 95 05/05/17 00:00 Room Air 05/04/17 23:45 53 05/04/17 20:00 Room Air 05/04/17 20:00 98.0 63 19 119/69 (86) 100 05/04/17 19:45 58 05/04/17 16:00 77 05/04/17 16:00 98.2 74 20 121/57 (78) 99 05/04/17 12:00 61 05/04/17 12:00 98.8 66 20 107/50 (69) 97 05/04/17 09:00 Room Air I/O 05/04/17 05/04/17 05/04/17 05/05/17 05/05/17 05/05/17 07:00 15:00 23:00 07:00 15:00 23:00 Intake Total 520 ml 480 ml 480 ml Output Total 350 ml 800 ml 1075 ml Balance 170 ml -320 ml -595 ml Intake Oral 520 ml 480 ml 480 ml Output Urine Total 350 ml 800 ml 600 ml Stool Total 475 ml Imaging Last Impressions Soft Tissue Ultrasound 04/21/17 0000 Signed Impressions: Service Date/Time: Friday, April 21, 2017 19:30 - CONCLUSION: 1. No mass or fluid collection identified in the area of palpable abnormality. Lucio Jacobs MD Objective Remarks awake and alert, no acute distress, a and o x 3, interactive, no nuchal rigidity, pupils equal lungs- no rales regular rhythm lower abdomen- wounds- dry- no erythema colostomy with brown stools extremities - dry skin neuro exam- non focal mujica in place- draining clear yellow urine Procedures HD Urinary Catheter: Yes Assessment to: Continue Mujica insert reason: Prolonged Immobilization Date of Insertion: May 01, 2017 A/P Problem List: (1) Hyperkalemia ICD Code: E87.5 - Hyperkalemia Status: Acute (2) End stage kidney disease ICD Code: N18.6 - End stage renal disease Status: Chronic Assessment and Plan 56-year-old female with past medical history of ESRD on HD, HLD, CHF, anxiety, DM, hypothyroidism, kidney, chronic wounds, chronic indwelling Mujica who came to ER with nausea, vomit and missed hemodialysis for one week Acute hallucinations-- Resolved visual, auditory and tactile 04/30- patient looks too good to have a stroke ( on coumadin)-continue to monitor refused to have head CT scan- severe claustrophobia- told her O can give Ativan- refused- "you have to totally knock me out" appreciate psychiatry ff. on Seroquel on Oxycodone- q 6 prn Complicated UTI Mujica catheter placed 04/19. - changed 05/01 - Urine growing Pseudomonas. -Repeat urine cultures on 04/24/17 growing- Pseudomonas- on tobramycin per ID dosing. Continue to monitor. -ID ff ESRD on HD- Nephrology ff Coagulopathy secondary to Coumadin INR 7.2 resolved status post vitamin K. on Coumadin restarted given history of DVT. INR good . Continue to follow Nausea and vomiting and hypokalemia secondary to uremia from missed hemodialysis. Resolved Abdominal wound, leg wounds, present on admission. Worsening: Patient was receiving Bactrim and Diflucan for infected wounds outpatient. Patient without fever and leukocytosis. Abdominal lumps. Ultrasound negative for abscess or mass. Surgery consulted for biopsy but indicated biopsy is not needed. Patient had previous abdominal wall biopsy that was negative for calciphylaxis, showed stasis dermatitis. I offered the patient a CAT scan to further evaluate those subcutaneous nodules. However she refused citing claustrophobia. - Wound care team ff - started on doxycycline empirically for these abdominal wounds 04/30 x 10 days \\ Diabetes mellitus: Stable monitor fingersticks with sliding scale coverage COPD: Not currently in exacerbation Hypothyroidism: Chronic. Continue Hormonal replacement Morbid obesity strongly recommended diet and exercise. Non compliance issues. Counseled DVT prophylaxis: on Coumadin. DC home today after HD will resume care with [facility]- she will call them when she gets home to resume care CM consulted to assist with transport Milton Reyes MD May 05, 2017 08:52
[2017-05-05] MEDS: QUEtiapine FUMARATE 25 MG TAB PO SCH ×3 (08:58→17:50)
[2017-05-05] MEDS: DOXYCYCLINE HYCLATE 100 MG CAP PO SCH (08:58)
[2017-05-05] MEDS: CALCIUM CARBONATE 500 MG CHEWABLE TAB CHEW SCH (08:59)
[2017-05-05] MEDS: OXYBUTYNIN CHLORIDE 5 MG TAB PO SCH (08:59)
[2017-05-05] MEDS ORDERED: DOXY100C PO (09:00)
[2017-05-05] MEDS: GABAPENTIN 100 MG CAP PO SCH (09:00)
[2017-05-05] MEDS: PARoxetine HCL 20 MG TAB PO SCH (09:00)
[2017-05-05] MEDS: FLUCONAZOLE 100 MG TAB PO SCH (09:00)
[2017-05-05] MEDS: COLLAGENASE OINT 30 GM TUBE TOPICAL SCH (09:00)
[2017-05-05] MEDS: SODIUM CHLORIDE 0.9% FLUSH 10 ML FLUSH IV FLUSH SCH (09:01)
[2017-05-05] MEDS ORDERED: COLL30T TOPICAL (09:06)
[2017-05-05] MEDS ORDERED: COUM1TAB PO (09:06)
[2017-05-05] MEDS ORDERED: Calcium Carbonate Chew CHEW (09:06)
[2017-05-05] MEDS ORDERED: OXYC-395 PO (09:06)
[2017-05-05] MEDS ORDERED: GELFOAM TOP (09:07)
--- NOTE | 2017-05-05 09:13 | HHI.DS ---
Discharge Summary Admission Date Apr 19, 2017 at 14:40 Discharge Date: May 05, 2017 Admitting Diagnosis (1) End stage kidney disease ICD Code: N18.6 - End stage renal disease Diagnosis: Principal Status: Chronic (2) Hyperkalemia ICD Code: E87.5 - Hyperkalemia Diagnosis: Principal Status: Acute Procedures HD Brief History - From Admission ER NOTES; This is a pleasant 56 y/o Female who came to ER with nausea, vomit, skipped hemodialysis and chronic wounds, She is a history of multiple chronic comorbidities and is very debilitated at baseline. She has end-stage renal disease, morbid obesity, is bedridden. She has multiple chronic wounds that are being tended to by [facility] at home. She has not felt well for the past week. She had nausea and vomiting. She has missed dialysis for a week. She normally gets lifted with a [employer] lift into a wheelchair and is probably transported to dialysis. States it hurts her a lot. She has chronic pain and takes hydrocodone. Wound care nurse is managing her multiple wounds, there is no bleeding from the left thigh wound that has been persistent. No fevers. No other complaints ESRD on HD, HLD, CHF, anxiety, DM, hypothyroidism, kidney, chronic wounds, chronic indwelling Mujica cath, multiple admissions to the Hospital, known to Doctor Barbara nephrology specialist. has Ostomy. stable seen in her bedroom, the patient states she is been having some bleeding from her left abdominal wall ulcer, she states is been having nausea, vomit weakness and for this reason did not go to Dialysis. Significant Findings Laboratory Tests Test 05/03/17 09:17 05/04/17 07:20 05/05/17 06:22 Prothrombin Time 21.9 SEC (9.8-11.6) 20.5 SEC (9.8-11.6) 22.9 SEC (9.8-11.6) PE at Discharge awake and alert, no acute distress, a and o x 3, interactive, no nuchal rigidity, pupils equal lungs- no rales regular rhythm lower abdomen- wounds- dry- no erythema colostomy with brown stools extremities - dry skin neuro exam- non focal mujica in place- draining clear yellow urine Pt update on day of discharge afebrile awake and alert very interactive no pain, no shortness of breath Hospital Course 56-year-old female with past medical history of ESRD on HD, HLD, CHF, anxiety, DM, hypothyroidism, kidney, chronic wounds, chronic indwelling Mujica who came to ER with nausea, vomit and missed hemodialysis for one week Acute hallucinations-- Resolved visual, auditory and tactile 04/30- patient looks too good to have a stroke ( on coumadin)-continue to monitor refused to have head CT scan- severe claustrophobia- told her O can give Ativan- refused- "you have to totally knock me out" appreciate psychiatry ff. on Seroquel on Oxycodone- q 6 prn Complicated UTI Mujica catheter placed 04/19. - changed 05/01 - Urine growing Pseudomonas. -Repeat urine cultures on 04/24/17 growing- Pseudomonas- on tobramycin per ID dosing. Continue to monitor. -ID ff ESRD on HD- Nephrology ff Coagulopathy secondary to Coumadin INR 7.2 resolved status post vitamin K. on Coumadin restarted given history of DVT. INR good . Continue to follow Nausea and vomiting and hypokalemia secondary to uremia from missed hemodialysis. Resolved Abdominal wound, leg wounds, present on admission. Worsening: Patient was receiving Bactrim and Diflucan for infected wounds outpatient. Patient without fever and leukocytosis. Abdominal lumps. Ultrasound negative for abscess or mass. Surgery consulted for biopsy but indicated biopsy is not needed. Patient had previous abdominal wall biopsy that was negative for calciphylaxis, showed stasis dermatitis. I offered the patient a CAT scan to further evaluate those subcutaneous nodules. However she refused citing claustrophobia. - Wound care team ff - started on doxycycline empirically for these abdominal wounds 04/30 x 10 days \\ Diabetes mellitus: Stable monitor fingersticks with sliding scale coverage COPD: Not currently in exacerbation Hypothyroidism: Chronic. Continue Hormonal replacement Morbid obesity strongly recommended diet and exercise. Non compliance issues. Counseled DVT prophylaxis: on Coumadin. DC home today after HD will resume care with [facility]- she will call them when she gets home to resume care CM consulted to assist with transport Pt Condition on Discharge: Stable Discharge Disposition: Disch w/ Home Health Serv Discharge Time: > 30 minutes Discharge Instructions DIET: Follow Instructions for: Heart Healthy Diet, Renal Failure Diet Activities you can perform: Regular-No Restrictions Activities to Avoid: Driving Follow up Referrals: Appointment for Follow Up Nephrology - 1 Week PCP Follow-up - 1 Week PCP Follow-up Wound Care Clinic - 1 Week New Medications: Collagenase (Santyl) 250 Unit/Gram Oin 1 APPLIC TOPICAL DAILY for wound care for 30 Days, TUBE Doxycycline Hyclate (Doxycycline Hyclate) 100 Mg Cap 100 MG PO BID for Infection for 5 Days, #10 CAP Gelfoam Sponge (Gelfoam Sponge) 12-7 Mm Pad 1 FOAM TOP UNSCH PRN for SEE LABEL COMMENTS for 30 Days, #1 PAD Cut sponge to required size; dry or wet sponge may be applied to bleeding site. Oxycodone (Oxycodone) 10 Mg Tab 10 MG PO Q6H PRN for PAIN SCALE 4 TO 10 for 10 Days, #40 TAB Warfarin (Coumadin) 1 Mg Tab 1 MG PO DAILY@1600 for DVT hx for 30 Days, TAB [Calcium Carbonate Chew] () 500 MG CHEW 500 MG CHEW Q12HR for 30 Days, #60 TAB 1 Refill Continued Medications: Alprazolam (Xanax) 0.25 Mg Tab 0.25 MG PO Q6H PRN for ANXIETY, TAB 0 Refills Atorvastatin (Atorvastatin) 40 Mg Tab 40 MG PO HS for Cholesterol Management, #30 TAB 0 Refills Fluconazole (Diflucan) 100 Mg Tab 50 MG PO DAILY for funguria, #5 TAB Gabapentin (Gabapentin) 100 Mg Cap 100 MG PO BID, #60 CAP 0 Refills Levothyroxine (Levothyroxine) 150 Mcg Tab 150 MCG PO DAILY for Thyroid, TAB 0 Refills Ondansetron Odt (Zofran Odt) 4 Mg Tab 4 MG SL Q6HR PRN for Nausea/Vomiting, #30 TAB 0 Refills Oxybutynin (Ditropan) 5 Mg Tab 5 MG PO Q12HR for Urinary Symptom Managemen, TAB 0 Refills Paroxetine (Paroxetine) 40 Mg Tab 40 MG PO DAILY, TAB 0 Refills Quetiapine (Quetiapine) 25 Mg Tab 25 MG PO TID, TAB 0 Refills Tizanidine (Tizanidine) 4 Mg Cap 4 MG PO TID for Muscle Spasm, CAP 0 Refills [Katty Sling - Large] () UNIT for For use with katty lift, #1 Discontinued Medications: Hydrocodone-Acetaminophen (Hydrocodone-Acetaminophen) 10-325 mg Tab 1 TAB PO Q6H PRN for PAIN, TAB 0 Refills Sulfamethoxazole-Trimethoprim (Sulfamethoxazole-Trimethoprim) 800-160 Mg Tab 1 TAB PO BID for Infection, TAB 0 Refills Warfarin (Coumadin) 4 Mg Tab 4 MG PO DAILY for Prevent Blood Clot, TAB 0 Refills Warfarin (Jantoven) 4 Mg Tab 4 MG PO DAILY for Blood Clot Prevention, TAB 0 Refills Milton Reyes MD May 05, 2017 09:13
[2017-05-05 12:00] VITALS: PULSE 57
[2017-05-05 12:06] VITALS: BP 131/56; PULSE 56; RESP 18; TEMP 98.6; O2SAT 97
[2017-05-05] MEDS ORDERED: FLUC50TA2 PO (12:32)
--- NOTE | 2017-05-05 12:52 | HHI.NPPN ---
Subjective General Problems: Anemia Renal Failure: End Stage Renal Disease History of Present Illness This is a 56-year-old female with past medical history of diabetes mellitus, ischemic heart disease, hypertension, hyperlipidemia, anxiety disorder, hypothyroidism, morbid obesity, history of multiple abdomen and thigh wounds who came to the hospital with complaint of nausea, vomiting and generalized weakness.The patient has history of end-stage renal disease on hemodialysis Friday, and Friday but she has been missing her dialysis. The last time she was dialyzed was about a week ago. The patient has multiple wounds and she has been getting wound care at home. There is no history of fever but she has a Ruiz catheter and she has a colostomy. The patient denies any history of diarrhea but she has nausea and vomiting. She has been missing dialysis because of the pain that she gets and she is lifted by the [facility] for transportation. I suggested the possibility of home hemodialysis but the son does not think that he can help her with this. Additional Remarks No acute complaints, plans for discharge today (Betty Rose) Review of Systems General Constitutional: Fatigue (Betty Rose) Respiratory Respiratory Remarks Denies any SOB (Betty Rose) Cardiovascular Cardiac Remarks Denies any CP (Betty Rose) Objective Data Data Vital Signs Date Time Temp Pulse Resp B/P (MAP) Pulse Ox O2 Delivery O2 Flow Rate FiO2 05/05/17 12:06 98.6 56 18 131/56 (81) 97 05/05/17 09:00 Room Air 05/05/17 08:01 98.4 67 18 155/62 (93) 97 05/05/17 04:00 Room Air 05/05/17 04:00 98.3 63 17 168/65 (99) 96 05/05/17 03:46 57 05/05/17 00:17 98.0 58 19 114/49 (70) 95 05/05/17 00:00 Room Air 05/04/17 23:45 53 05/04/17 20:00 Room Air 05/04/17 20:00 98.0 63 19 119/69 (86) 100 05/04/17 19:45 58 05/04/17 16:00 77 05/04/17 16:00 98.2 74 20 121/57 (78) 99 (Betty Rose) Physical Exam General Appearance: No Acute Distress, Obese (Betty Rose) Eyes Eye Exam: Pupils Equal (Betty Rose) Throat Throat Exam: Oral Mucosa Jet & Moist (Betty Rose) Pulmonary Resp Exam: Clear Bilaterally, Breath Sounds Equal, No Distress (Betty Rose) Cardiology CV Exam: Regular, Normal Sinus Rhythm (Betty Rose) Gastrointestinal/Abdomen GI Exam: Non-Tender, Bowel Sounds Present GI Remarks colostomy Abdominal tenderness (Betty Rose) Genitourinary Exam: Flank Non-Tender (Btety Rose) Integumentary Skin Exam: Ulcer(s) Skin Remarks Multiple areas of chronic wounds including on the pannus of the stomach, the lateral thigh on the left, thigh on the right, and the sacrum. Extensive chronic skin changes in both lower extremities. (Betty Rose) Neurologic Neuro Exam: Alert, Awake, Oriented (Betty Rose) Psychiatric Psych Exam: Appropriate Responses (Betty Rose) Assessment/Plan Discussed Condition With: Patient Assessment Summary: End Stage Renal Disease Problem List: (1) End stage kidney disease ICD Codes: N18.6 - End stage renal disease Status: Chronic Plan: Dialysis MWF ESBL UTI and wound infections - following with ID, on Doxycycline. Epogen with dialysis Plans for discharge home after HD today. Left radiocephalic AVF with good thrill - continue to use as outpatient until ready for catheter removal. (2) UTI (urinary tract infection) ICD Codes: N39.0 - Urinary tract infection, site not specified (3) Hyperkalemia ICD Codes: E87.5 - Hyperkalemia Status: Acute (4) Anemia in chronic kidney disease (CKD) ICD Codes: N18.9 - Chronic kidney disease, unspecified; D63.1 - Anemia in chronic kidney disease Status: Acute Plan: Resolved (5) Wounds, multiple ICD Codes: T07 - Unspecified multiple injuries Status: Acute (Betty Rose) Problem List: (1) End stage kidney disease ICD Codes: N18.6 - End stage renal disease Status: Chronic Plan: Dialysis MWF ESBL UTI and wound infections - following with ID, on Doxycycline. Epogen with dialysis Plans for discharge home after HD today. Left radiocephalic AVF with good thrill - continue to use as outpatient until ready for catheter removal. Patient seen and examined, agree with above. Patient seen during HD, for discharge. (2) UTI (urinary tract infection) ICD Codes: N39.0 - Urinary tract infection, site not specified (3) Hyperkalemia ICD Codes: E87.5 - Hyperkalemia Status: Acute (4) Anemia in chronic kidney disease (CKD) ICD Codes: N18.9 - Chronic kidney disease, unspecified; D63.1 - Anemia in chronic kidney disease Status: Acute Plan: Resolved (5) Wounds, multiple ICD Codes: T07 - Unspecified multiple injuries Status: Acute (Valentin Jimenez MD) Betty Rose May 05, 2017 12:52 Valentin Jimenez MD May 05, 2017 19:27
[2017-05-05] MEDS: WARFARIN SOD 1 MG TAB PO SCH (17:51)
== END 2017-05-05 18:41 | disposition hospice, home (50) | DRG 698 ==
LOC: NEPC 10:31 → NEDA 13:18 → OBSVTOIN 14:40 → N04B 19:30
PROVIDERS: ADMIT Internal Medicine; ATTEND Internal Medicine
PROC: 5A1D70Z Performance of Urinary Filtration, Intermittent, Less than 6 Hours Per Day (ICD-10-PCS; principal; 2017-04-19)
DX: T83.511A Infection and inflammatory reaction due to indwelling urethral catheter, initial encounter (principal); N18.6 End stage renal disease; I13.2 Hypertensive heart and chronic kidney disease with heart failure and with stage 5 chronic kidney disease, or end stage renal disease; L89.159 Pressure ulcer of sacral region, unspecified stage; E87.2 Acidosis; Z68.41 Body mass index [BMI] 40.0-44.9, adult; L97.819 Non-pressure chronic ulcer of other part of right lower leg with unspecified severity; L97.129 Non-pressure chronic ulcer of left thigh with unspecified severity; L97.119 Non-pressure chronic ulcer of right thigh with unspecified severity; E11.22 Type 2 diabetes mellitus with diabetic chronic kidney disease; N39.0 Urinary tract infection, site not specified; E11.42 Type 2 diabetes mellitus with diabetic polyneuropathy; E66.01 Morbid (severe) obesity due to excess calories; E03.9 Hypothyroidism, unspecified; R79.1 Abnormal coagulation profile; T45.515A Adverse effect of anticoagulants, initial encounter; E78.5 Hyperlipidemia, unspecified; R82.71 Bacteriuria; J44.9 Chronic obstructive pulmonary disease, unspecified; E87.5 Hyperkalemia; E83.59 Other disorders of calcium metabolism; D63.1 Anemia in chronic kidney disease; F41.9 Anxiety disorder, unspecified; Z74.01 Bed confinement status; Z79.01 Long term (current) use of anticoagulants; I50.9 Heart failure, unspecified; L98.499 Non-pressure chronic ulcer of skin of other sites with unspecified severity; E11.622 Type 2 diabetes mellitus with other skin ulcer; I25.10 Atherosclerotic heart disease of native coronary artery without angina pectoris; I87.2 Venous insufficiency (chronic) (peripheral); G47.30 Sleep apnea, unspecified; M48.00 Spinal stenosis, site unspecified; M19.90 Unspecified osteoarthritis, unspecified site; B96.1 Klebsiella pneumoniae [K. pneumoniae] as the cause of diseases classified elsewhere; B96.5 Pseudomonas (aeruginosa) (mallei) (pseudomallei) as the cause of diseases classified elsewhere; F40.240 Claustrophobia; F29 Unspecified psychosis not due to a substance or known physiological condition; F32.9 Major depressive disorder, single episode, unspecified; F12.90 Cannabis use, unspecified, uncomplicated; Z16.12 Extended spectrum beta lactamase (ESBL) resistance; Z16.24 Resistance to multiple antibiotics; Z51.5 Encounter for palliative care; Z86.14 Personal history of Methicillin resistant Staphylococcus aureus infection; Z86.718 Personal history of other venous thrombosis and embolism; Z88.1 Allergy status to other antibiotic agents; Z88.5 Allergy status to narcotic agent; Z91.15 Patient's noncompliance with renal dialysis; Z91.19 Patient's noncompliance with other medical treatment and regimen; Z93.3 Colostomy status; Z95.5 Presence of coronary angioplasty implant and graft; Z99.2 Dependence on renal dialysis; Z98.84 Bariatric surgery status
CPT/HCPCS: 51702; 76937; 76999; 80048; 80053; 81001; 82550; 82948; 83735; 83970; 84100; 84484; 85025; 85027; 85610; 85730; 87070; 87077; 87086; 87185; 87186; 87205; 90935; 96374; 96375; J0610; J0696; J1335; J1580; J1644; J1815; J2185; J2405; J2543; J3260; P9047; Q4081

== ENCOUNTER 2017-05-11 22:02 | Emergency (ER) | payer MEDICARE, MEDICAID ==
[~2017-05-11] VITALS: Ht 157.5 cm; Wt 150.0 kg
[~2017-05-11 22:02] MED LIST changes: -ARMO60TA PO; -ASPI1TAB57 PO; -CALC0.5C PO; -CHOL1TAB41 PO; -CINA30 PO; +COLL30T TOPICAL; +Calcium Carbonate Chew CHEW; -DAKINSHST TOPICAL; -DIFI200T PO; -DIPH25CA PO; +DOXY100C PO; +FLUC50TA2 PO; -FLUO20CA12 PO; -IPRASOL INH; -LACTG PO; -LEVEMIR SQ; +LEVO150T7 PO; -MECL-62 PO; -MEGE40SU PO; -METH10003 PO; -MIDO5TAB PO; +OXYB5TAB8 PO; +OXYC-395 PO; +PARO40TA2 PO; +QUET1TAB7 PO; -SOLU250I IV PUSH; +TIZA4CAP3 PO; -VANC500I3 PO
[2017-05-11 22:11] VITALS: BP 155/70; PULSE 83; RESP 20; TEMP 98.4; O2SAT 100
[2017-05-11] MEDS ORDERED: GELATIN 12 MM/7 MM FOAM TOPICAL ONE (22:30)
--- NOTE | 2017-05-11 22:47 | PD ---
HPI Chief Complaint: Skin Problem Time Seen by Provider: 22:17 Travel History International Travel<30 days: No Contact w/Intl Traveler<30days: No Traveled to known affect area: No History of Present Illness HPI 56-year-old female complains of bleeding from the wound on the abdomen wall. Patient has a chronic persistent ulcer lesions on the abdominal wall for the past few months. Patient recently had bleeding from the area. Gelfoam was applied. Patient had dressing change today and the wounds start bleeding again. Patient denies any other problem. Patient has history of C. difficile colitis, diabetes, hypertension, osteoarthritis, CAD, end-stage renal disease, hypothyroidism, sleep apnea, spinal stenosis. Patient recently had negative growth on culture of the abdominal lesion recently. Patient was on doxycycline 100 mg twice a day until recently. PFSH Past Medical History Hx Anticoagulant Therapy: Yes Arthritis: Yes Asthma: No Autoimmune Disease: No Blood Disorders: No Anxiety: Yes Depression: No Heart Rhythm Problems: No Cancer: No Cardiac Catheterization: Yes Cardiovascular Problems: Yes (stents) High Cholesterol: Yes Chemotherapy: No Chest Pain: Yes Congestive Heart Failure: Yes COPD: No Cerebrovascular Accident: No Diabetes: Yes Patient Takes Glucophage: No Dialysis: Yes (M,W,F) Diminished Hearing: No Endocrine: Yes Gastrointestinal Disorders: Yes (LAP BAND stopped working few yrs ago) GERD: No Genitourinary: Yes Hepatitis: No Hiatal Hernia: No Heparin Induced Thrombocytopen: No Hypertension: Yes Immune Disorder: No Implanted Vascular Access Dvce: Yes (FISTULA, VASCATH) Kidney Stones: No Medical other: Yes (LEFT LOWER ARM FISTULA) Musculoskeletal: Yes Neurologic: No Psychiatric: Yes Reproductive: Yes Respiratory: Yes Immunizations Current: Yes Migraines: No Radiation Therapy: No Renal Failure: Yes Seizures: No Sickle Cell Disease: No Sleep Apnea: Yes Thyroid Disease: Yes Triglycerides - High: Yes Ulcer: No Menopausal: Yes : 1 Para: 1 Past Surgical History Abdominal Surgery: Yes (ABD WOUND for friction) AICD: No Arteriovenous Shunt: Yes (AV FISTULA LEFT , VAS CATH RIGHT CHEST) Body Medical Devices: av fistula/ heart stents Cardiac Surgery: No Section: Yes (X 1) Cholecystectomy: Yes (1996) Coronary Artery Bypass Graft: Yes Coronary Stent: Yes (x1 June 2012) Ear Surgery: No Endocrine Surgery: No Eye Surgery: No Genitourinary Surgery: No Insulin Pump: No Joint Replacement: No Neurologic Surgery: No Oral Surgery: Yes (T&A) Pacemaker: No Thoracic Surgery: No Tonsillectomy: Yes Other Surgery: Yes (LAP BAND, VAS CATH) Social History Alcohol Use: No Tobacco Use: No Substance Use: No Allergies-Medications (Allergen,Severity, Reaction): Coded Allergies: clarithromycin (Verified Allergy, Severe, swelling of face, 01/03/17) ferrous fumarate (Verified Adverse Reaction, Severe, Constipation, ) ferrous sulfate (Verified Adverse Reaction, Severe, Constipation, 01/03/17 ) ferumoxytol (Verified Adverse Reaction, Severe, Constipation, 01/03/17) iron (Verified Adverse Reaction, Severe, Constipation, 01/03/17) morphine (Verified Adverse Reaction, Severe, 01/03/17) renal insufficiency. multivitamin infusion, adult no.4 with vitamin K (Verified Adverse Reaction, Severe, Constipation, 01/03/17) multivitamin with iron,other minerals (Verified Adverse Reaction, Severe, Constipation, 01/03/17) *MDRO Multi-Drug Resistant Organism (Verified Adverse Reaction, Unknown, VRE, MRSA, MDR-Pseudomonas, 09/02/16) VRE (abdominal wound) - 07/09/16 MDR-Pseudomonas (abdominal wound) - 07/09/16 MRSA (abdomen wound) - 08/28/16 Reported Meds & Prescriptions Reported Meds & Active Scripts Active Fluconazole 50 Mg Tab 50 Mg PO DAILY Santyl (Collagenase) 250 Unit/Gram Oin 1 Applic TOPICAL DAILY 30 Days [Calcium Carbonate Chew] 500 MG Chew 500 Mg CHEW Q12HR 30 Days Oxycodone (Oxycodone HCl) 10 Mg Tab 10 Mg PO Q6H PRN 10 Days Coumadin (Warfarin) 1 Mg Tab 1 Mg PO DAILY@1600 30 Days Diflucan (Fluconazole) 100 Mg Tab 50 Mg PO DAILY Reported Quetiapine (Quetiapine Fumarate) 25 Mg Tab 25 Mg PO TID Ditropan (Oxybutynin Chloride) 5 Mg Tab 5 Mg PO Q12HR Tizanidine (Tizanidine HCl) 4 Mg Cap 4 Mg PO TID Paroxetine (Paroxetine HCl) 40 Mg Tab 40 Mg PO DAILY Levothyroxine (Levothyroxine Sodium) 150 Mcg Tab 150 Mcg PO DAILY Zofran Odt (Ondansetron Odt) 4 Mg Tab 4 Mg SL Q6HR PRN Atorvastatin (Atorvastatin Calcium) 40 Mg Tab 40 Mg PO HS Xanax (Alprazolam) 0.25 Mg Tab 0.25 Mg PO Q6H PRN Gabapentin 100 Mg Cap 100 Mg PO BID Review of Systems General / Constitutional: No: Fever Eyes: No: Visual changes HENT: No: Headaches Cardiovascular: No: Chest Pain or Discomfort Respiratory: No: Shortness of Breath Gastrointestinal: No: Abdominal Pain Genitourinary: No: Dysuria Musculoskeletal: No: Pain Skin: No Rash Neurologic: No: Weakness Psychiatric: No: Depression Endocrine: No: Polydipsia Hematologic/Lymphatic: No: Easy Bruising Physical Exam Narrative GENERAL: Well-nourished, well-developed patient. SKIN: Focused skin assessment warm/dry. HEAD: Normocephalic. EYES: No scleral icterus. No injection or drainage. NECK: Supple, trachea midline. No JVD or lymphadenopathy. CARDIOVASCULAR: Regular rate and rhythm without murmurs, gallops, or rubs. RESPIRATORY: Breath sounds equal bilaterally. No accessory muscle use. GASTROINTESTINAL: Abdomen soft, non-tender, nondistended. MUSCULOSKELETAL: No cyanosis, or edema. BACK: Nontender without obvious deformity. No CVA tenderness. Patient has several ulcerative lesions on left lower abdomen wall area. Small bleeding area from the ulcers noted. No redness no heat noted. Data Data Last Documented VS Vital Signs Date Time Temp Pulse Resp B/P (MAP) Pulse Ox O2 Delivery O2 Flow Rate FiO2 05/11/17 22:11 98.4 83 20 155/70 (98) 100 Orders Orders Gelatin 12 Mm/7 Mm Top (Gelfoam 12 Mm/7 (05/11/17 22:30) [facility] Medical Decision Making Medical Screen Exam Complete: Yes Emergency Medical Condition: Yes Differential Diagnosis Differential diagnosis including bleeding from abdominal wall ulcers Narrative Course 56-year-old female with bleeding from abdominal wall ulcers. Wound seal powder and Gelfoam applied. Dressing applied. Diagnosis Primary Impression: Bleeding ulcer Patient Instructions: General Instructions Additional Instructions: Keep the wound clean and dry. Follow-up with personal physician. Return if increasing bleeding problem. Med/Other Pt SpecificInfo: No Change to Meds Disposition: 01 DISCHARGE HOME Condition: Stable Renan Hernandes MD May 11, 2017 22:47
[2017-05-12 08:39] VITALS: BP 142/75
== END 2017-05-12 08:55 | disposition home or self-care (01) ==
LOC: NEPE 22:02
DX: L98.499 Non-pressure chronic ulcer of skin of other sites with unspecified severity (principal)
CPT/HCPCS: 99283

== ENCOUNTER 2017-06-19 13:58 | Inpatient (IN) | payer OTHER, MEDICAID, MEDICARE ==
[2017-06-19] VITALS (16 sets, daily range): BP systolic 70–108; BP diastolic 40–76; PULSE 68–100; RESP 17–19; TEMP 97.5–98.2; O2SAT 94–100
[~2017-06-19] VITALS: Ht 160 cm; Wt 104.5 kg
[~2017-06-19 13:58] MED LIST changes: -DOXY100C PO; -GELFOAM TOP; -[UNRECOGNIZED DRUG - SUPPLY]
[2017-06-19] MEDS ORDERED: LIDOCAINE 1%/EPINEPHrine 1:100,000 SOLN 50 ML VIAL ONE (14:13)
[2017-06-19] MEDS ORDERED: GELATIN POWDER 1 GM PACKET TOPICAL ONE (14:30)
--- NOTE | 2017-06-19 14:33 | PD ---
HPI Chief Complaint: Laceration/Skin Injury Time Seen by Provider: 14:10 Travel History International Travel<30 days: No Contact w/Intl Traveler<30days: No Traveled to known affect area: No History of Present Illness HPI Patient was sent from Dr. Perdomo since office, after wound care was provided, the patient started to bleed from her left lower quadrant abdominal area. Pressure did not control or stop the bleeding. Patient is on Coumadin. Patient was sent to the emergency department for bleeding control Multiple allergies to medications Past medical history significant for hypothyroidism, tonsil and adenoid removal , stents, CHF, AV fistula on the left for dialysis, CABG, on Coumadin, hypercholesterolemia, hyperlipidemia, hypertension, cholecystectomy, gastric bypass LAP-BAND surgery patient is a dialysis Friday also has a history of spinal stenosis patient also has a history of C. difficile PFSH Past Medical History Hx Anticoagulant Therapy: Yes Arthritis: Yes Asthma: No Autoimmune Disease: No Blood Disorders: No Anxiety: Yes Depression: No Heart Rhythm Problems: No Cancer: No Cardiac Catheterization: Yes Cardiovascular Problems: Yes (stents) High Cholesterol: Yes Chemotherapy: No Chest Pain: Yes Congestive Heart Failure: Yes COPD: No Cerebrovascular Accident: No Diabetes: Yes Dialysis: Yes (M,W,F) Diminished Hearing: No Endocrine: Yes Gastrointestinal Disorders: Yes (LAP BAND stopped working few yrs ago) GERD: No Genitourinary: Yes Hepatitis: No Hiatal Hernia: No Heparin Induced Thrombocytopen: No Hypertension: Yes Immune Disorder: No Implanted Vascular Access Dvce: Yes (FISTULA, VASCATH) Kidney Stones: No Musculoskeletal: Yes Neurologic: No Psychiatric: Yes Reproductive: Yes Respiratory: Yes Immunizations Current: Yes Migraines: No Radiation Therapy: No Renal Failure: Yes Seizures: No Sickle Cell Disease: No Sleep Apnea: Yes Thyroid Disease: Yes Triglycerides - High: Yes Ulcer: No Menopausal: Yes : 1 Para: 1 Past Surgical History Abdominal Surgery: Yes (ABD WOUND for friction) AICD: No Arteriovenous Shunt: Yes (AV FISTULA LEFT , VAS CATH RIGHT CHEST) Body Medical Devices: av fistula/ heart stents Cardiac Surgery: No Section: Yes (X 1) Cholecystectomy: Yes (1996) Coronary Artery Bypass Graft: Yes Coronary Stent: Yes (x1 June 2012) Ear Surgery: No Endocrine Surgery: No Eye Surgery: No Genitourinary Surgery: No Insulin Pump: No Joint Replacement: No Neurologic Surgery: No Oral Surgery: Yes (T&A) Pacemaker: No Thoracic Surgery: No Tonsillectomy: Yes Other Surgery: Yes (LAP BAND, VAS CATH) Social History Alcohol Use: No Tobacco Use: No Substance Use: No Allergies-Medications (Allergen,Severity, Reaction): Coded Allergies: clarithromycin (Verified Allergy, Severe, swelling of face, 06/19/17) ferrous fumarate (Verified Adverse Reaction, Severe, Constipation, 06/19/17 ) ferrous sulfate (Verified Adverse Reaction, Severe, Constipation, 06/19/17) ferumoxytol (Verified Adverse Reaction, Severe, Constipation, 06/19/17) iron (Verified Adverse Reaction, Severe, Constipation, 06/19/17) morphine (Verified Adverse Reaction, Severe, 06/19/17) renal insufficiency. multivitamin infusion, adult no.4 with vitamin K (Verified Adverse Reaction, Severe, Constipation, 06/19/17) multivitamin with iron,other minerals (Verified Adverse Reaction, Severe, Constipation, 06/19/17) *MDRO Multi-Drug Resistant Organism (Verified Adverse Reaction, Unknown, VRE, MRSA, MDR-Pseudomonas, 06/19/17) VRE (abdominal wound) - 07/09/16 MDR-Pseudomonas (abdominal wound) - 07/09/16 MRSA (abdomen wound) - 08/28/16 Reported Meds & Prescriptions Reported Meds & Active Scripts Active Fluconazole 50 Mg Tab 50 Mg PO DAILY Santyl (Collagenase) 250 Unit/Gram Oin 1 Applic TOPICAL DAILY 30 Days [Calcium Carbonate Chew] 500 MG Chew 500 Mg CHEW Q12HR 30 Days Coumadin (Warfarin) 1 Mg Tab 1 Mg PO DAILY@1600 30 Days Diflucan (Fluconazole) 100 Mg Tab 50 Mg PO DAILY Reported Quetiapine (Quetiapine Fumarate) 25 Mg Tab 25 Mg PO TID Ditropan (Oxybutynin Chloride) 5 Mg Tab 5 Mg PO Q12HR Tizanidine (Tizanidine HCl) 4 Mg Cap 4 Mg PO TID Paroxetine (Paroxetine HCl) 40 Mg Tab 40 Mg PO DAILY Levothyroxine (Levothyroxine Sodium) 150 Mcg Tab 150 Mcg PO DAILY Zofran Odt (Ondansetron Odt) 4 Mg Tab 4 Mg SL Q6HR PRN Atorvastatin (Atorvastatin Calcium) 40 Mg Tab 40 Mg PO HS Xanax (Alprazolam) 0.25 Mg Tab 0.25 Mg PO Q6H PRN Gabapentin 100 Mg Cap 100 Mg PO BID Review of Systems General / Constitutional: No: Fever Eyes: No: Visual changes HENT: No: Headaches Cardiovascular: Positive: Other (Bleeding from her left lower quadrant abdominal wound.) Respiratory: No: Shortness of Breath Gastrointestinal: No: Abdominal Pain Genitourinary: No: Dysuria Musculoskeletal: No: Pain Skin: No Rash Neurologic: No: Weakness Psychiatric: No: Depression Endocrine: No: Polydipsia Hematologic/Lymphatic: No: Easy Bruising Physical Exam Narrative GENERAL: Morbidly obese, but patient is in good spirits and speaking clearly giving her history SKIN: Warm and dry. Patient has multiple wounds around her waist left flank right flank sacral all her partial thickness and full-thickness... The wound found on her left lower quadrant is still one that is actively bleeding from its superior aspect, it does appear to be a minor arteriolar bleed however in the face of Coumadin it is understandable why there is such a large amount of blood collecting. HEAD: Atraumatic. Normocephalic. EYES: Pupils equal and round. No scleral icterus. No injection or drainage. ENT: No nasal bleeding or discharge. Mucous membranes pink and moist. NECK: Trachea midline. No JVD. CARDIOVASCULAR: Regular rate and rhythm. RESPIRATORY: No accessory muscle use. Clear to auscultation. Breath sounds equal bilaterally. GASTROINTESTINAL: Abdomen soft, non-tender, obese but nondistended, no guarding/ rigidity/rebound MUSCULOSKELETAL: Extremities without clubbing, cyanosis, or edema. No obvious deformities. NEUROLOGICAL: Awake and alert. No obvious cranial nerve deficits. Motor grossly within normal limits. Five out of 5 muscle strength in the arms and legs. Normal speech. PSYCHIATRIC: Appropriate mood and affect; insight and judgment normal. Data Data Last Documented VS Vital Signs Date Time Temp Pulse Resp B/P (MAP) Pulse Ox O2 Delivery O2 Flow Rate FiO2 06/19/17 15:33 84 70/40 (50) 06/19/17 15:30 100 Nasal Cannula 2.00 06/19/17 14:21 18 06/19/17 14:17 98.0 Orders Orders Lidocai-Epi 1%-1:100,000 Inj (Xylocaine- (06/19/17 14:13) Gelatin Powder Pack (Gelfoam Powder Pack (06/19/17 14:30) Complete Blood Count With Diff (06/19/17 14:25) Basic Metabolic Panel (Bmp) (06/19/17 14:25) Prothrombin Time / Inr (Pt) (06/19/17 14:25) Act Partial Throm Time (Ptt) (06/19/17 14:25) Chest, Single Ap (06/19/17 14:25) Sodium Chlorid 0.9% 500 Ml Inj (Ns 500 M (06/19/17 14:45) Red Blood Cells (Rbc) (06/19/17 15:00) Blood Product Administration (06/19/17 15:00) Sodium Chlor 0.9% 250 Ml Inj (Ns 250 Ml (06/19/17 15:00) Type And Screen (06/19/17 15:00) Red Blood Cells (Rbc) (06/19/17 15:07) Ecg Monitoring (06/19/17 15:26) Oximetry (06/19/17 15:26) Sodium Bicarbonate 8.4% Inj (Sodium Bica (06/19/17 15:30) Albuterol Concentrated Neb (Albuterol Co (06/19/17 15:30) Insulin Human Regular Inj (Novolin R Inj (06/19/17 15:45) Dextrose 50% In Vandana (Vial) Inj (D50w (Vi (06/19/17 15:45) Admit Order (Ed Use Only) (06/19/17 15:34) Labs Laboratory Tests Test 06/19/17 14:40 White Blood Count 10.0 TH/MM3 Red Blood Count 2.14 MIL/MM3 Hemoglobin 5.9 GM/DL Hematocrit 17.5 % Mean Corpuscular Volume 82.0 FL Mean Corpuscular Hemoglobin 27.6 PG Mean Corpuscular Hemoglobin Concent 33.7 % Red Cell Distribution Width 17.9 % Platelet Count 497 TH/MM3 Mean Platelet Volume 7.2 FL Neutrophils (%) (Auto) 73.6 % Lymphocytes (%) (Auto) 17.9 % Monocytes (%) (Auto) 4.1 % Eosinophils (%) (Auto) 3.3 % Basophils (%) (Auto) 1.1 % Neutrophils # (Auto) 7.3 TH/MM3 Lymphocytes # (Auto) 1.8 TH/MM3 Monocytes # (Auto) 0.4 TH/MM3 Eosinophils # (Auto) 0.3 TH/MM3 Basophils # (Auto) 0.1 TH/MM3 CBC Comment DIFF FINAL Differential Comment Prothrombin Time 63.5 SEC Prothromb Time International Ratio 6.3 RATIO Activated Partial Thromboplast Time 101.1 SEC Blood Urea Nitrogen 84 MG/DL Creatinine 6.52 MG/DL Random Glucose 138 MG/DL Calcium Level 7.6 MG/DL Sodium Level 139 MEQ/L Potassium Level 6.7 MEQ/L Chloride Level 113 MEQ/L Carbon Dioxide Level 14.5 MEQ/L Anion Gap 12 MEQ/L Estimat Glomerular Filtration Rate 7 ML/MIN MDM Medical Decision Making Medical Screen Exam Complete: Yes Emergency Medical Condition: Yes Medical Record Reviewed: Yes Differential Diagnosis Symptomatic anemia versus anemia versus hypotension versus bleeding controlled Narrative Course Upon arrival patient's blood pressure was high 70 systolic low 80s, and tachycardic at about 115 sinus tachycardia, patient received 500 cc of normal saline by EMS and another 500 cc while at the bedside. Her bleeding was controlled with lidocaine 1% with epi to the local area as well as applying Gelfoam to the bleeding area ulcer on the left lower quadrant of her abdomen. Emergency release blood and 2 units packed red blood cells were ordered for immediate transfusion, with great improvement on the patient's heart rate which is now down to the high 70s low 80s and blood pressure which increased to the systolic 150s. Received call from laboratory which showed that her potassium was 6.7 at which time an order for amp of bicarb, and post D50, 5 units of regular insulin and 2 nebulizer treatments of albuterol were given.... Case was fully discussed with Dr. Flores who will admit the patient to ICU Critical Care Narrative CRITICAL CARE NOTE: With evaluation of the patient, labs, EKG, receipt of radiologic studies, administration of medications, reevaluation the patient and discussion of the patient with the admitting physicians, the total critical care time was [60] minutes. Time to perform other separately billable procedures was not included in the critical care time. Emergency release blood 2 units ordered for immediate transfusion Physician Communication Physician Communication As of 1549 patient was discussed fully with Dr. MIKE, her patient's autism specialist, who will prepare for stat dialysis Diagnosis Primary Impression: hypotension Additional Impressions: symptomatic anemia HB 5 Hyperkalemia dialysis dependent Admitting Information Admitting Physician Requests: Admit Ari Bob MD Jun 19, 2017 14:33
[2017-06-19] MEDS ORDERED: SODIUM CHLORID 0.9% 500 ML INJ 500 ML IV ONE ×2 (14:45→16:30)
[2017-06-19 14:53] LABS: AUTOMATED NEUTROPHIL # 7.3 TH/MM3 (1.8-7.7); BASOPHIL # 0.1 TH/MM3 (0-0.2); BASOPHIL % 1.1 % (0.0-2.0); EOSINOPHIL # 0.3 TH/MM3 (0-0.4); EOSINOPHIL % 3.3 % (0.0-4.0); HEMOGLOBIN 5.9 GM/DL (11.6-15.3); LYMPH % 17.9 % (9.0-44.0); LYMPHOCYTE # 1.8 TH/MM3 (1.0-4.8); MEAN CORPUSCULAR HEMOGLOBIN 27.6 PG (27.0-34.0); MEAN CORPUSCULAR HGB CONC 33.7 % (32.0-36.0); MEAN PLATELET VOLUME 7.2 FL (7.0-11.0); MONO % 4.1 % (0.0-8.0); MONOCYTE # 0.4 TH/MM3 (0-0.9); NEUT % 73.6 % (16.0-70.0); PLATELET COUNT 497 TH/MM3 (150-450); RED BLOOD COUNT 2.14 MIL/MM3 (4.00-5.30); RED CELL DISTRIBUTION WIDTH 17.9 % (11.6-17.2)
[2017-06-19 15:00] LABS: HEMATOCRIT 17.5 % (35.0-46.0)
[2017-06-19] MEDS ORDERED: SODIUM CHLOR 0.9% 250 ML INJ 250 ML IV ONE (15:00)
--- NOTE | 2017-06-19 15:03 | RADRPT ---
EXAM DATE/TIME: 06/19/2017 14:44 [facility] COMPARISON: CHEST SINGLE AP, October 02, 2016, 15:49. INDICATIONS : PT short of breath and states she has multiple wounds that are not healing. MEDICAL HISTORY : None. SURGICAL HISTORY : None. ENCOUNTER: Initial ACUITY: 2 days PAIN SCORE: 3/10 LOCATION: Bilateral chest FINDINGS: Portable AP view of the chest demonstrates a normal-sized cardiac silhouette. Right IJ dialysis type catheter distal tip is in the right atrium. EKG lines overlie the patient. Electronic device obscures the left midlung zone. There is an opacity in the right midlung zone which has a somewhat biconvex s hape. No pleural effusion or pneumothorax is identified. The bones demonstrate no acute finding. CONCLUSION: Opacity in the right midlung zone could represent airspace consolidation or fluid within the fissure. Moy Lechuga MD on June 19, 2017 at 14:58 Board Certified Radiologist. This report was verified electronically.
[2017-06-19 15:21] LABS: BICARBONATE 14.5 MEQ/L (21.0-32.0); CALCIUM 7.6 MG/DL (8.5-10.1); CREATININE 6.52 MG/DL (0.50-1.00)
[2017-06-19] MEDS ORDERED: RESP: ALBUTEROL CONC 2.5 MG/0.5 ML NEB INH ONE (15:30)
[2017-06-19] MEDS ORDERED: SODIUM BICARBONATE 8.4% SOLN 50 MEQ/50 ML VIAL SLOW IVP ONE (15:30)
[2017-06-19 15:37] LABS: PROTHROMBIN TIME - PATIENT 63.5 SEC (9.8-11.6)
[2017-06-19] MEDS ORDERED: DEXTROSE 50% IN WATER 50 ML VIAL(D50) IV PUSH ONE (15:45)
[2017-06-19] MEDS ORDERED: INSULIN HUMAN REGULAR 1,000 UNITS/10 ML VIAL IV PUSH ONE (15:45)
[2017-06-19 15:57] LABS: INTERNATIONAL NORMALIZED RATIO 6.3 RATIO
[2017-06-19] MEDS ORDERED: CHLORHEXIDINE GLUCONATE 2 % 1 PACK (2 CLOTHS) TOP PRN (16:15)
[2017-06-19] MEDS ORDERED: MISCELLANEOUS NURSING INFORMATION XX SCH (16:15)
[2017-06-19] MEDS ORDERED: RESP: ALBUTEROL 2.5 MG/IPRATROPIUM 0.5 MG NEB (PRN) INH (16:15)
[2017-06-19] MEDS ORDERED: SODIUM CHLOR 0.9% 1000 ML INJ 1,000 ML OTHER PRN ×2 (16:23)
[2017-06-19] MEDS ORDERED: SODIUM CHLOR 0.9% 1000 ML INJ 1,000 ML IV PRN (16:23)
[2017-06-19] MEDS ORDERED: diphenhydrAMINE HCL 25 MG CAP PO PRN (16:30)
[2017-06-19] MEDS ORDERED: ONDANSETRON HCL 4 MG/2 ML VIAL IV PUSH PRN (16:30)
[2017-06-19] MEDS ORDERED: ACETAMINOPHEN 325 MG TAB PO PRN (16:30)
[2017-06-19] MEDS ORDERED: EPOETIN ALFA 10,000 UNITS/ML VIAL IV PUSH PRN (16:30)
[2017-06-19] MEDS ORDERED: NITROGLYCERIN 0.4 MG SL 25 TABS/BTL SL PRN (16:30)
[2017-06-19] MEDS ORDERED: cloNIDine HCL 0.1 MG TAB PO PRN (16:30)
[2017-06-19] MEDS ORDERED: DEXTROSE 50% IN WATER 50 ML VIAL(D50) IV PUSH PRN (16:30)
[2017-06-19] MEDS ORDERED: GELATIN 12 MM/7 MM FOAM TOP PRN (16:30)
[2017-06-19] MEDS ORDERED: HEPARIN SODIUM - IV 10,000 UNITS/10 ML VIAL PRN (16:30)
[2017-06-19] MEDS ORDERED: MANNITOL 12.5 GM/50 ML VIAL IV PRN (16:30)
[2017-06-19] MEDS ORDERED: GLUCAGON 1 MG/ML VIAL OTHER PRN (16:30)
[2017-06-19] MEDS ORDERED: SODIUM CHLORIDE 0.9% FLUSH 10 ML FLUSH IV FLUSH PRN (16:30)
[2017-06-19] MEDS ORDERED: HEPARIN SODIUM - IV 10,000 UNITS/10 ML VIAL IV FLUSH PRN (16:30)
[2017-06-19] MEDS ORDERED: ALBUMIN 25% INJ 100 ML IV PRN (16:30)
[2017-06-19] MEDS ORDERED: PROTHROMBIN COMPLEX CONC INJ 3,500 UNITS in SYRINGE/BAG 1 EA IV ONE (16:30)
--- NOTE | 2017-06-19 16:35 | PD.CONS ---
HPI Service Nephrology Consult Requested By Dr. Bob Reason for Consult ESRD and hyperkalemia Primary Care Physician Aline Velarde MD History of Present Illness This is a 56-year-old female with past medical history of diabetes mellitus, ischemic heart disease, hypertension, hyperlipidemia, anxiety disorder, hypothyroidism, morbid obesity, and history of multiple abdomen and thigh wounds. Patient presented to ED with bleeding from wound site. She had a wound care appt scheduled for today. It was found that patients INR is elevated at 6.3.The patient has history of end-stage renal disease on hemodialysis Friday, and Friday but she has been missing her dialysis. The last time she was dialyzed was Friday. Her potassium is elevated at 6.7 and received treatment in ED. She has been missing dialysis because of the pain and having to be left in wheelchair until son comes home from work. Patient will be transferred to the unit and bedside dialysis will be done. (Betty Rose) Review of Systems Constitutional: COMPLAINS OF: Fatigue Psychiatric: COMPLAINS OF: Anxiety (Betty Rose) Past Family Social History Allergies: Coded Allergies: clarithromycin (Verified Allergy, Severe, swelling of face, 06/19/17) ferrous fumarate (Verified Adverse Reaction, Severe, Constipation, 06/19/17 ) ferrous sulfate (Verified Adverse Reaction, Severe, Constipation, 06/19/17) ferumoxytol (Verified Adverse Reaction, Severe, Constipation, 06/19/17) iron (Verified Adverse Reaction, Severe, Constipation, 06/19/17) morphine (Verified Adverse Reaction, Severe, 06/19/17) renal insufficiency. multivitamin infusion, adult no.4 with vitamin K (Verified Adverse Reaction, Severe, Constipation, 06/19/17) multivitamin with iron,other minerals (Verified Adverse Reaction, Severe, Constipation, 06/19/17) *MDRO Multi-Drug Resistant Organism (Verified Adverse Reaction, Unknown, VRE, MRSA, MDR-Pseudomonas, 06/19/17) VRE (abdominal wound) - 07/09/16 MDR-Pseudomonas (abdominal wound) - 07/09/16 MRSA (abdomen wound) - 08/28/16 Past Medical History 1. Diabetes mellitus. 2. Hypertension. 3. Hypothyroidism. 4. Anxiety disorder. 5. History of C. difficile colitis. 6. Chronic anemia. 7. End-stage renal disease on hemodialysis. Past Surgical History 1. Left arm AV fistula surgery. 2. Cholecystectomy. 3. Colectomy with colostomy. 4. History of Lap-band surgery. 5. Multiple wound debridements surgeries. 6. Endoscopies. Active Ordered Medications Current Medications Medications (Trade) Dose Ordered Sig/Soren Route Start Time Stop Time Status Last Admin Sodium Chloride 250 ml @ 15 mls/hr ONCE ONCE IV 06/19/17 15:00 06/20/17 07:39 Prothrombin Complex Concent (Human) 3500 units/Syringe / Bag 0 ml @ 500 mls/hr ONCE ONCE IV 06/19/17 16:30 06/19/17 16:31 Family History Non contributory Social History Denies tobacco or ETOH use Lives with son (Betty RoseP) Physical Exam Vital Signs Vital Signs Date Time Temp Pulse Resp B/P (MAP) Pulse Ox O2 Delivery O2 Flow Rate FiO2 06/19/17 16:08 98.2 78 17 92/54 100 06/19/17 16:03 75 18 82/52 97 06/19/17 15:46 97.8 78 19 78/58 96 06/19/17 15:43 97.5 92 18 75/40 97 06/19/17 15:33 84 70/40 (50) 06/19/17 14:52 96 86/55 (65) 06/19/17 14:42 98 Nasal Cannula 2.00 06/19/17 14:21 101 18 06/19/17 14:17 98.0 100 18 81/56 (64) 97 Physical Exam GENERAL: Alert and oriented. Morbidly obese female SKIN: Warm and dry. Has multiple wounds around her waist and upper thigh. HEAD: Normocephalic. EYES: No scleral icterus. No injection or drainage. NECK: Supple, trachea midline. No JVD or lymphadenopathy. CARDIOVASCULAR: Regular rate and rhythm without murmurs, gallops, or rubs. RESPIRATORY: Breath sounds equal bilaterally. No accessory muscle use. GASTROINTESTINAL: Abdomen soft, non-tender. Large MUSCULOSKELETAL: No cyanosis, or edema. BACK: Nontender without obvious deformity. No CVA tenderness. Laboratory Laboratory Tests Test 06/19/17 14:40 White Blood Count 10.0 Red Blood Count 2.14 Hemoglobin 5.9 Hematocrit 17.5 Mean Corpuscular Volume 82.0 Mean Corpuscular Hemoglobin 27.6 Mean Corpuscular Hemoglobin Concent 33.7 Red Cell Distribution Width 17.9 Platelet Count 497 Mean Platelet Volume 7.2 Neutrophils (%) (Auto) 73.6 Lymphocytes (%) (Auto) 17.9 Monocytes (%) (Auto) 4.1 Eosinophils (%) (Auto) 3.3 Basophils (%) (Auto) 1.1 Neutrophils # (Auto) 7.3 Lymphocytes # (Auto) 1.8 Monocytes # (Auto) 0.4 Eosinophils # (Auto) 0.3 Basophils # (Auto) 0.1 CBC Comment DIFF FINAL Differential Comment Prothrombin Time 63.5 Prothromb Time International Ratio 6.3 Activated Partial Thromboplast Time 101.1 Blood Urea Nitrogen 84 Creatinine 6.52 Random Glucose 138 Calcium Level 7.6 Sodium Level 139 Potassium Level 6.7 Chloride Level 113 Carbon Dioxide Level 14.5 Anion Gap 12 Estimat Glomerular Filtration Rate 7 (Betty Rose) Result Diagram: 06/19/17 1440 06/19/17 1440 Imaging Last Impressions Chest X-Ray 06/19/17 1425 Signed Impressions: Service Date/Time: , June 19, 2017 14:44 - CONCLUSION: Opacity in the right midlung zone could represent airspace consolidation or fluid within the fissure. Moy Lechuga MD (Betty Rose) Assessment and Plan Problem List: (1) End stage kidney disease ICD Codes: N18.6 - End stage renal disease Status: Chronic Plan: End stage renal disease with hemodialysis on Friday, and Friday but she has been missing her dialysis. The last time she was dialyzed was Friday. Her potassium is elevated at 6.7 and received treatment in ED. Plan Emergent Bedside hemodialysis will be done. Hgb at 5.4 being transfused PRBC Hyperkalemia at 6.7 amp of bicarb, D50, 5 units of regular insulin given INR elevated at 6.3 reversal agent given per ED Patient being transferred to ICU (2) Symptomatic anemia ICD Codes: D64.9 - Anemia, unspecified Status: Acute (3) Hypertension, benign ICD Codes: I10 - Benign hypertension Status: Chronic (4) Hyperkalemia ICD Codes: E87.5 - Hyperkalemia Status: Acute (5) Wounds, multiple ICD Codes: T07 - Unspecified multiple injuries Status: Acute (Betty Rose) Problem List: (1) End stage kidney disease ICD Codes: N18.6 - End stage renal disease Status: Chronic Plan: End stage renal disease with hemodialysis on Friday, and Friday but she has been missing her dialysis. The last time she was dialyzed was Friday. Her potassium is elevated at 6.7 and received treatment in ED. Plan Emergent Bedside hemodialysis will be done. Hgb at 5.4 being transfused PRBC Hyperkalemia at 6.7 amp of bicarb, D50, 5 units of regular insulin given INR elevated at 6.3 reversal agent given per ED Patient being transferred to ICU. Patient seen and examined, agree with above. Patient has been missing HD. K was high, to start HD. BP is better now, transfused. (2) Symptomatic anemia ICD Codes: D64.9 - Anemia, unspecified Status: Acute (3) Hypertension, benign ICD Codes: I10 - Benign hypertension Status: Chronic (4) Hyperkalemia ICD Codes: E87.5 - Hyperkalemia Status: Acute (5) Wounds, multiple ICD Codes: T07 - Unspecified multiple injuries Status: Acute (Valentin Jimenez MD) Betty Rose Jun 19, 2017 16:35 Valentin Jimenez MD Jun 19, 2017 18:17
[2017-06-19] MEDS ORDERED: CALCIUM GLUCONATE INJ 1 GM in SODIUM CHLORIDE 0.9% INJ 100 ML IV ONE (17:00)
[2017-06-19] MEDS: INSULIN NovoLIN REGULAR SUPPLEMENTAL SCALE SQ SCH ×2 (17:00→21:00)
[2017-06-19 18:55] LABS: AMORPHOUS SEDIMENT, URINE OCC; BACTERIA, URINE MANY /hpf; BILIRUBIN, URINE NEG (NEG); BLOOD, URINE MOD (NEG); GLUCOSE,URINE NEG (NEG); KETONE, URINE NEG (NEG); NITRITE,URINE NEG (NEG); PH, URINE 6.5 (5.0-8.5); URINE COLOR YELLOW (YELLW/STRAW); URINE LEUKOCYTE ESTERASE LARGE (NEG); WHITE BLOOD CELL CLUMPS MANY
[2017-06-19] MEDS: RESP: ALBUTEROL 2.5 MG/IPRATROPIUM 0.5 MG NEB (SCH) INH ×2 (19:42→23:15)
[2017-06-19] MEDS: GENTAMICIN SULFATE 20 MG/2 ML VIAL OTHER PRN (19:57)
--- NOTE | 2017-06-19 20:25 | RADRPT ---
EXAM DATE/TIME: 06/19/2017 18:06 [facility] COMPARISON: No previous studies available for comparison. INDICATIONS : Bilateral lower extremity swelling. MEDICAL HISTORY : Diabetes mellitus type 2. Hypertension. Hypothyroidism. Congestive heart failure. Hyperlipidemia. End -stage renal disease (on dialysis). SURGICAL HISTORY : Cholecystectomy. section. Lap band. Adenoidectomy. Cardiac stents. ENCOUNTER: Initial ACUITY: >1 year PAIN SCORE: 5/10 LOCATION: Left TECHNIQUE: Venous ultrasound of the left and right leg was performed from the inguinal ligament to the proximal calf. Real-time, color Doppler and spectral tracing, compression and augmentation techniques were us ed. FINDINGS: Visualization was suboptimal due to the patient's large body habitus and attenuation of the sound tevin m. There was difficulty with compression as well. RIGHT LEG: There is normal compressibility of the deep venous system from the inguinal region to the proximal ca lf. No echogenic clot is seen in the lumen of the common femoral, femoral, popliteal, and posterior tibial veins. There is a normal response of the venous system to proximal and distal augmentation an d respiration. LEFT LEG: There is normal compressibility of the deep venous system from the inguinal region to the proximal ca lf. No echogenic clot is seen in the lumen of the common femoral, femoral, popliteal, and posterior tibial veins. There is a normal response of the venous system to proximal and distal augmentation an d respiration. CONCLUSION: Suboptimal examination with no evidence of deep venous thrombosis. Jacoby Jj MD on June 19, 2017 at 20:22 Board Certified Radiologist. This report was verified electronically.
[2017-06-19] MEDS: ACETAMINOPHEN/HYDROcodone 325 MG/10 MG TAB PO PRN (22:14)
[2017-06-19] MEDS: FAMOTIDINE 20 MG/2 ML VIAL IV PUSH SCH (22:14)
[2017-06-20] VITALS (14 sets, daily range): BP systolic 95–132; BP diastolic 46–58; PULSE 71–117; RESP 10–21; TEMP 98.6–99.5; O2SAT 98–100
[2017-06-20] MEDS: INSULIN NovoLIN REGULAR SUPPLEMENTAL SCALE SQ SCH ×6 (01:00→20:55)
[2017-06-20 01:21] LABS: HEMATOCRIT 23.8 % (35.0-46.0)
[2017-06-20] MEDS: ACETAMINOPHEN/HYDROcodone 325 MG/10 MG TAB PO PRN ×3 (02:32→16:37)
[2017-06-20 03:53] LABS: AUTOMATED NEUTROPHIL # 6.1 TH/MM3 (1.8-7.7); BASOPHIL # 0.1 TH/MM3 (0-0.2); BASOPHIL % 0.9 % (0.0-2.0); EOSINOPHIL # 0.1 TH/MM3 (0-0.4); EOSINOPHIL % 1.5 % (0.0-4.0); HEMATOCRIT 23.7 % (35.0-46.0); HEMOGLOBIN 8.1 GM/DL (11.6-15.3); LYMPH % 21.1 % (9.0-44.0); LYMPHOCYTE # 1.8 TH/MM3 (1.0-4.8); MEAN CELL VOLUME 81.8 FL (80.0-100.0); MEAN CORPUSCULAR HEMOGLOBIN 27.8 PG (27.0-34.0); MEAN CORPUSCULAR HGB CONC 34.1 % (32.0-36.0); MONOCYTE # 0.4 TH/MM3 (0-0.9); NEUT % 71.5 % (16.0-70.0); PLATELET COUNT 379 TH/MM3 (150-450); RED CELL DISTRIBUTION WIDTH 17.5 % (11.6-17.2); WHITE BLOOD COUNT 8.5 TH/MM3 (4.0-11.0)
[2017-06-20] MEDS: RESP: ALBUTEROL 2.5 MG/IPRATROPIUM 0.5 MG NEB (SCH) INH ×5 (03:56→21:48)
[2017-06-20] MEDS: CHLORHEXIDINE GLUCONATE 2 % 1 PACK (2 CLOTHS) TOP SCH (04:00)
[2017-06-20 04:02] LABS: INTERNATIONAL NORMALIZED RATIO 1.7 RATIO; PROTHROMBIN TIME - PATIENT 17.4 SEC (9.8-11.6)
[2017-06-20 04:12] LABS: BICARBONATE 25.9 MEQ/L (21.0-32.0); CALCIUM 7.6 MG/DL (8.5-10.1); CREATININE 4.45 MG/DL (0.50-1.00)
--- NOTE | 2017-06-20 07:54 | MH ---
cc: Maureen Harris MD, Alaa DATE OF ADMISSION: 06/19/2017 HISTORY OF PRESENT ILLNESS: The patient is a 56-year-old female with past medical history of end-stage renal disease on hemodialysis, diabetes mellitus, hypertension, coronary artery disease, hypothyroidism, sleep apnea, morbid obesity and history of multiple abdominal wounds. She presented to ED with profuse bleeding from her wound site. She was scheduled to see a wound physician; however, when she started bleeding from her wound she elected to come to the ED for further evaluation and management. She is on Coumadin for DVT of her right lower extremity from 1 year ago. She denies any symptoms of chest pain, shortness of breath, orthopnea, PND. In addition, she denies any history of nausea, vomiting, abdominal pain, hematemesis, hematochezia or hemoptysis. On arrival, she was hypotensive with a systolic blood pressure 70s to 80s and her laboratory data was significant for a hemoglobin 5.9, hematocrit 17.5, and hyperkalemia with a potassium level of 6.7. Also, she was coagulopathic with an INR of 6.3 and PTT 101.1. A chest x-ray in the ED showed opacity in the right mid lung zone which could represent airspace consolidation or fluid within the fissure. No history of fever or leukocytosis. In the ED, she was given 500 mL bolus of normal saline and she was treated for hyperkalemia with 5 units IV insulin, D50 amp of sodium bicarbonate and albuterol sulfate 10 mg inhaler x1. Nephrology service was notified and the patient about to undergo hemodialysis. She is on 2 liters oxygen with a saturation of 100%. She denies any chest pain or shortness of breath. PAST MEDICAL HISTORY: Significant for hypertension, diabetes mellitus, hypothyroidism, anxiety disorder, anemia, end-stage renal disease on hemodialysis, osteoarthritis, DVT right lower extremity a year ago. PAST SURGICAL HISTORY: Previous cholecystectomy, previous tonsillectomy, , previous colectomy with colostomy bag in place, history of lap band surgery, multiple wound debridement surgeries. SOCIAL HISTORY: The patient is single and lives with her son. No history of tobacco use. FAMILY HISTORY: Noncontributory to present illness. ALLERGIES: MULTIPLE WHICH INCLUDE BIAXIN, METHADONE, MORPHINE, FERROUS SULFATE, IRON, REPORTED MEDICATIONS: 1. Diflucan 2. Coumadin. 3. Atorvastatin. 4. Paroxetine. 5. Gabapentin. 6. Xanax. 7. Levothyroxine. REVIEW OF SYSTEMS: As per HPI. The rest of review of systems unremarkable. PHYSICAL EXAMINATION: GENERAL: A 56-year-old female lying in bed in no acute respiratory distress, hypotensive. VITAL SIGNS: Afebrile, pulse of 80, respiratory rate of 19, blood pressure 98/62, saturation 97% to 100%. HEENT: Atraumatic, normocephalic. Pupils are equal, round, reactive to light and accommodation. Extraocular muscles intact. Conjunctivae pink Nonicteric sclerae. Oral mucosa within normal. NECK: Supple. No JVD, adenopathy, thyromegaly. Trachea in the midline. HEART: Regular rate and rhythm. Normal S1, S2, no murmurs, rubs or gallops noted. LUNGS: Bilateral equal entry. No rales or wheezing. ABDOMEN: Soft, obese, nontender. No distention. Positive bowel sounds. Colostomy bag in place. Multiple lower abdominal wounds noted. EXTREMITIES: No cyanosis, clubbing, non-pitting edema, dry scaly skin noted. NEUROLOGIC: No focal sensory deficit. LABORATORY DATA: Sodium 139, potassium 6.7, chloride 113, CO2 of 14, BUN 84, creatinine 6.52, glucose 138. WBC 10, hemoglobin 5.9, hematocrit 17, platelet count 497. INR 6.3, PT 63, PTT 101.1. IMAGING STUDIES Chest x-ray - opacity in right mid lung zone which could represent airspace consolidation versus fluid within the fissure. CARDIOLOGY STUDIES: EKG pending. IMPRESSION: 1. Respiratory insufficiency. 2. Hypotension. 3. Severe anemia secondary to acute blood loss. 4. Coagulopathy secondary to Coumadin toxicity. 5. Hyperkalemia. 6. End-stage renal disease. 7. Hypothyroidism. 8. History of sleep apnea and morbid obesity. 9. History of hypertension. 10. History of diabetes mellitus. 11. History of osteoarthritis. 12. History of Extended Spectrum Beta-lactamase Klebsiella and multidrug resistant Pseudomonas in the urine in 04/2017. RECOMMENDATIONS: 1. Monitor neuro status closely and avoid any sedatives. 2. Continue with oxygen to maintain sats above 92%. 3. Bronchodilators in the form of DuoNeb q. 4 plus q. 2 hours p.r.n. for shortness of breath. 4. Noninvasive positive pressure ventilation p.r.n. for respiratory distress. 5. Monitor heart rate and blood pressure closely and maintain mean arterial pressure greater than 65 mmHg. Hold antihypertensive medications for now. Check a lactic acid level. We will give additional normal saline 500 bolus x1. 4. Monitor renal function, I's and O's and avoid nephrotoxins. The patient was treated for hyperkalemia in the emergency department with intravenous insulin, D50, bicarbonate, and albuterol inhaler. We will also give 1 amp of calcium gluconate. Nephrology service was notified and the patient to about undergo hemodialysis. We will repeat a basic metabolic profile post-dialysis. 5. Keep n.p.o. for now and place on Pepcid 10 mg IV q. 12 hours for gastrointestinal prophylaxis. 6. Monitor for signs of infection which include fever and WBC. Singh culture if spikes a fever. We will obtain urinalysis with culture if indicated. Hold off on antibiotics at this time as there is no evidence of any infectious process. No fever or leukocytosis. 7. We will send wound for culture and Gram stain. 8. Monitor complete blood count and coags. She is currently receiving 2 units emergency release packed red blood cells. In addition, the patient is scheduled to undergo Kcentra. We will repeat a PT/INR. Check H&H 1 hour post-transfusion and keep hemoglobin greater than 8.0. 9. Place on sliding scale insulin with Accu-Cheks for glycemic control. 10. We will consult Wound Care service for wound management. 11. Gastrointestinal prophylaxis with Pepcid and deep vein thrombosis prophylaxis with sequential compression devices only. The patient's INR 6.3 on arrival, which is being reversed given acute blood loss. We will check a Doppler ultrasound of lower extremity to rule out deep vein thrombosis. 12. Further recommendations will be based on hospital course. MD CORNEL Anguiano/ , 04:59 PM , 05:48 PM
[2017-06-20] MEDS: FAMOTIDINE 20 MG/2 ML VIAL IV PUSH SCH ×2 (08:45→20:55)
--- NOTE | 2017-06-20 09:36 | HHI.CCPN ---
Subjective Remarks/Hospital Course Patient is a 56-year-old female with past medical history of end-stage renal disease on hemodialysis, diabetes mellitus, hypertension, coronary artery disease, hypothyroidism, sleep apnea, morbid obesity and history of multiple abdominal wounds. She presented to ED with profuse bleeding from her wound site. She was scheduled to see a wound physician; however, when she started bleeding from her wound she elected to come to the ED for further evaluation and management. She is on Coumadin for DVT of her right lower extremity from 1 year ago. She denies any symptoms of chest pain, shortness of breath, orthopnea, PND. In addition, she denies any history of nausea, vomiting, abdominal pain, hematemesis, hematochezia or hemoptysis. On arrival, she was hypotensive with a systolic blood pressure 70s to 80s and her laboratory data was significant for a hemoglobin 5.9, hematocrit 17.5, and hyperkalemia with a potassium level of 6.7. Also, she was coagulopathic with an INR of 6.3 and PTT 101.1. A chest x-ray in the ED showed opacity in the right mid lung zone which could represent airspace consolidation or fluid within the fissure. No history of fever or leukocytosis. In the ED, she was given 500 mL bolus of normal saline and she was treated for hyperkalemia with 5 units IV insulin, D50 amp of sodium bicarbonate and albuterol sulfate 10 mg inhaler x1. Nephrology service was notified and the patient about to undergo hemodialysis. She is on 2 liters oxygen with a saturation of 100%. She denies any chest pain or shortness of breath. 06/20 Patient s/p HD yesterday for hyperkalemia K 4.9 this morning. s/p transfusion 2u PRBC and K centa yesterday Hgb 8.1 this morning and INR 1.7 from 6.3 on arrival. Awake and alert requesting food. Objective Vital Signs Date Time Temp Pulse Resp B/P (MAP) Pulse Ox O2 Delivery O2 Flow Rate FiO2 06/20/17 07:16 100 Nasal Cannula 3.00 06/20/17 06:00 75 06/20/17 04:00 99.0 10 102/55 (71) Intake and Output 06/20/17 06/20/17 06/21/17 08:00 16:00 00:00 Output Total 200 ml Balance -200 ml Result Diagram: 06/20/17 0329 06/20/17 0329 Other Results Laboratory Tests Test 06/19/17 14:40 06/19/17 17:41 06/20/17 00:15 06/20/17 03:29 White Blood Count 10.0 TH/MM3 8.5 TH/MM3 Red Blood Count 2.14 MIL/MM3 2.90 MIL/MM3 Hemoglobin 5.9 GM/DL 8.0 GM/DL 8.1 GM/DL Hematocrit 17.5 % 23.8 % 23.7 % Mean Corpuscular Volume 82.0 FL 81.8 FL Mean Corpuscular Hemoglobin 27.6 PG 27.8 PG Mean Corpuscular Hemoglobin Concent 33.7 % 34.1 % Red Cell Distribution Width 17.9 % 17.5 % Platelet Count 497 TH/MM3 379 TH/MM3 Mean Platelet Volume 7.2 FL 7.0 FL Neutrophils (%) (Auto) 73.6 % 71.5 % Lymphocytes (%) (Auto) 17.9 % 21.1 % Monocytes (%) (Auto) 4.1 % 5.0 % Eosinophils (%) (Auto) 3.3 % 1.5 % Basophils (%) (Auto) 1.1 % 0.9 % Neutrophils # (Auto) 7.3 TH/MM3 6.1 TH/MM3 Lymphocytes # (Auto) 1.8 TH/MM3 1.8 TH/MM3 Monocytes # (Auto) 0.4 TH/MM3 0.4 TH/MM3 Eosinophils # (Auto) 0.3 TH/MM3 0.1 TH/MM3 Basophils # (Auto) 0.1 TH/MM3 0.1 TH/MM3 CBC Comment DIFF FINAL DIFF FINAL Differential Comment Prothrombin Time 63.5 SEC 17.4 SEC Prothromb Time International Ratio 6.3 RATIO 1.7 RATIO Activated Partial Thromboplast Time 101.1 SEC Blood Urea Nitrogen 84 MG/DL 48 MG/DL Creatinine 6.52 MG/DL 4.45 MG/DL Random Glucose 138 MG/DL 97 MG/DL Calcium Level 7.6 MG/DL 7.6 MG/DL Sodium Level 139 MEQ/L 141 MEQ/L Potassium Level 6.7 MEQ/L 4.9 MEQ/L Chloride Level 113 MEQ/L 106 MEQ/L Carbon Dioxide Level 14.5 MEQ/L 25.9 MEQ/L Anion Gap 12 MEQ/L 9 MEQ/L Estimat Glomerular Filtration Rate 7 ML/MIN 10 ML/MIN Urine Color YELLOW Urine Turbidity CLOUDY Urine pH 6.5 Urine Specific [place] 1.015 Urine Protein 100 mg/dL Urine Glucose (UA) NEG mg/dL Urine Ketones NEG mg/dL Urine Occult Blood MOD Urine Nitrite NEG Urine Bilirubin NEG Urine Urobilinogen LESS THAN 2.0 MG/DL Urine Leukocyte Esterase LARGE Urine RBC 96 /hpf Urine WBC /hpf Urine WBC Clumps MANY Urine Amorphous Sediment OCC Urine Bacteria MANY /hpf Microscopic Urinalysis Comment CATH-CULTURE IND Nasal Screen MRSA (PCR) MRSA NOT DETECTED Imaging Last Impressions Chest X-Ray 06/19/17 1425 Signed Impressions: Service Date/Time: June 14:44 - CONCLUSION: Opacity in the right midlung zone could represent airspace consolidation or fluid within the fissure. Moy Lechuga MD Lower Extremity Ultrasound 06/19/17 0000 Signed Impressions: Service Date/Time: June 18:06 - CONCLUSION: Suboptimal examination with no evidence of deep venous thrombosis. Jacoby Jj MD Objective Remarks GENERAL: Patient is 56 yo lying in bd in NAD SKIN: Warm and dry. HEAD: Normocephalic. EYES: No scleral icterus. No injection or drainage. NECK: Supple, trachea midline. No JVD or lymphadenopathy. CARDIOVASCULAR: Regular rate and rhythm without murmurs, gallops, or rubs. RESPIRATORY: Breath sounds equal bilaterally. No accessory muscle use. GASTROINTESTINAL: Abdomen soft, non-tender, nondistended. MUSCULOSKELETAL: No cyanosis, or edema. BACK: Nontender without obvious deformity. No CVA tenderness. Neuro: Awake and alert A/P Assessment and Plan 1. Respiratory insufficiency. 2. Hypotension- Resolved 3. Anemia secondary to acute blood loss. 4. Coagulopathy secondary to Coumadin toxicity. 5. Hyperkalemia... corrected 6. End-stage renal disease. 7. Hypothyroidism. 8. History of sleep apnea and morbid obesity. 9. History of hypertension. 10. History of diabetes mellitus. 11. History of osteoarthritis. 12 UTI 13. History of Extended Spectrum Beta-lactamase Klebsiella and MDR Pseudomonas in the urine in 04/2017. Plan Neuro: Monitor neuro status closely and avoid any sedatives. Pulm: Continue with oxygen to maintain sats above 92%. Bronchodilators BIPAP p.r.n. for respiratory distress. CV: Monitor HR and BP and maintain MAP> 65 mmHg. : Monitor renal function, I's and O's and avoid nephrotoxins. Treated for hyperkalemia in ED with IV insulin, D50, bicarbonate, and albuterol inhaler. s/p emergent HD yesterday. HD per renal- Dr. Jimenez GI: on Pepcid 10 mg IV q. 12 hours for GI prophylaxis. Start PO diabetic diet ID: Place on Zosyn and monitor for signs of infection( Fever and WBC). Follow up on wound and urine cxs Wound care consulted for abdominal wounds Heme: Monitor CBC and coags. s/p transfusion 2u PRBC and K-centra yesterday Hgb 8.1 and INR 1.7 this morning Endo: SSI with Accu-Cheks for glycemic control. GI prophylaxis with Pepcid and DVT prophylaxis with SCD's. Coumadin placed on hold given severe anemia and coagulopathy on arrival INR 1.7 today from 6.3 Doppler US of lower extremity suboptimal study, no evidence of DVT Will sign off and transfer care to [facility] Level 2 Maureen Harris MD Jun 20, 2017 09:36
[2017-06-20 10:35] LABS: HEMATOCRIT 21.8 % (35.0-46.0); HEMOGLOBIN 7.3 GM/DL (11.6-15.3)
[2017-06-20] MEDS: PIPERACIL-TAZO 2.25 GM PREMIX 50 ML IV SCH ×3 (12:39→23:37)
--- NOTE | 2017-06-20 13:21 | HHI.NPPN ---
Subjective Complaints: Obesity General Problems: Anemia Renal Failure: End Stage Renal Disease History of Present Illness This is a 56-year-old female with past medical history of diabetes mellitus, ischemic heart disease, hypertension, hyperlipidemia, anxiety disorder, hypothyroidism, morbid obesity, and history of multiple abdomen and thigh wounds. Patient presented to ED with bleeding from wound site. She had a wound care appt scheduled for today. It was found that patients INR is elevated at 6.3.The patient has history of end-stage renal disease on hemodialysis Friday, and Friday but she has been missing her dialysis. The last time she was dialyzed was Friday. Her potassium is elevated at 6.7 and received treatment in ED. She has been missing dialysis because of the pain and having to be left in wheelchair until son comes home from work. Patient will be transferred to the unit and bedside dialysis will be done. Additional Remarks Patient is good spirits. Wound care just finished. Dialysis yesterday and will also be done today. (Betty Rose) Review of Systems Respiratory Respiratory Remarks Denies SOB (Betty Rose) Cardiovascular Cardiac Remarks Denies CP (Betty Rose) Objective Data Data Vital Signs Date Time Temp Pulse Resp B/P (MAP) Pulse Ox O2 Delivery O2 Flow Rate FiO2 06/20/17 12:00 117 06/20/17 10:00 90 06/20/17 08:00 71 06/20/17 08:00 99.2 71 13 99/46 (63) 100 06/20/17 07:16 100 Nasal Cannula 3.00 06/20/17 06:00 75 06/20/17 04:00 99.0 81 10 102/55 (71) 100 06/20/17 04:00 81 06/20/17 02:00 73 06/20/17 00:00 82 06/20/17 00:00 98.6 82 14 95/57 (70) 98 06/19/17 22:00 79 06/19/17 20:00 84 06/19/17 20:00 97.6 84 17 104/58 (73) 100 06/19/17 19:42 94 Nasal Cannula 3.00 06/19/17 18:00 75 06/19/17 18:00 68 19 108/76 (87) 100 06/19/17 17:00 98.2 75 18 104/47 (66) 100 06/19/17 16:25 06/19/17 16:25 80 19 98/62 97 06/19/17 16:20 80 18 92/60 97 06/19/17 16:08 98.2 78 17 92/54 100 06/19/17 16:03 75 18 82/52 97 06/19/17 15:46 97.8 78 19 78/58 96 06/19/17 15:43 97.5 92 18 75/40 97 06/19/17 15:33 84 70/40 (50) 06/19/17 15:30 100 Nasal Cannula 2.00 06/19/17 14:52 96 86/55 (65) 06/19/17 14:42 98 Nasal Cannula 2.00 06/19/17 14:21 101 18 06/19/17 14:17 98.0 100 18 81/56 (64) 97 (Betty Rose) -: 06/20/17 1012 06/20/17 0329 Microbiology 06/19/17 Urine Culture - Preliminary, Resulted Gram Negative Stanley 06/19/17 Gram Stain - Final, Resulted 06/19/17 Wound Culture, Resulted Pending Imaging Last Impressions Chest X-Ray 06/19/17 1425 Signed Impressions: Service Date/Time: June 14:44 - CONCLUSION: Opacity in the right midlung zone could represent airspace consolidation or fluid within the fissure. Moy Lechuga MD Lower Extremity Ultrasound 06/19/17 0000 Signed Impressions: Service Date/Time: June 18:06 - CONCLUSION: Suboptimal examination with no evidence of deep venous thrombosis. Jacoby Jj MD Tubes & Lines: Ruiz (Betty Rose) Physical Exam General Appearance: No Acute Distress, Comfortable, Obese (Betty Rose) Throat Throat Exam: Oral Mucosa [place] & Moist (Betty Rose) Pulmonary Resp Exam: Breath Sounds Equal, No Distress (Betty Rose) Cardiology CV Exam: Regular, Normal Sinus Rhythm (Betty Rose) Gastrointestinal/Abdomen GI Exam: Soft, Non-Tender GI Remarks large (Betty Rose) Genitourinary Exam: Flank Non-Tender (Betty Rose) Integumentary Skin Exam: Clear, Warm Skin Remarks Multiple abdominal wounds, upper right thigh (Betty Rose) Extremeties Extremities Exam: No Edema (Betty Rose) Assessment/Plan Problem List: (1) End stage kidney disease ICD Codes: N18.6 - End stage renal disease Status: Chronic Plan: End stage renal disease with hemodialysis on Friday, Friday, and Friday Has been non complaint with dialysis do to pain and not having assistance to get out of wheelchair after treatment Emergent dialysis on admission patient hyperkalemic at 6.8 Plan [place] with HGB of 7.3 will transfuse with dialysis again today. Epogen with dialysis Hemodialysis yesterday for UF 3.1 liters Plan for hemodialysis today Labs in AM (2) Symptomatic anemia ICD Codes: D64.9 - Anemia, unspecified Status: Acute Plan: Improving Transfusion planned for today (3) Hypertension, benign ICD Codes: I10 - Benign hypertension Status: Chronic Plan: controlled (4) Hyperkalemia ICD Codes: E87.5 - Hyperkalemia Status: Acute Plan: resolved (5) Wounds, multiple ICD Codes: T07 - Unspecified multiple injuries Status: Acute Plan: wound care following (Betty Rose) Problem List: (1) End stage kidney disease ICD Codes: N18.6 - End stage renal disease Status: Chronic Plan: End stage renal disease with hemodialysis on Friday, Friday, and Friday Has been non complaint with dialysis do to pain and not having assistance to get out of wheelchair after treatment Emergent dialysis on admission patient hyperkalemic at 6.8 Plan [place] with HGB of 7.3 will transfuse with dialysis again today. Epogen with dialysis Hemodialysis yesterday for UF 3.1 liters Plan for hemodialysis today Labs in AM. Patient seen and examined, agree with above. Follow Hgb., HD will be in AM. (2) Symptomatic anemia ICD Codes: D64.9 - Anemia, unspecified Status: Acute Plan: Improving Transfusion planned for today (3) Hypertension, benign ICD Codes: I10 - Benign hypertension Status: Chronic Plan: controlled (4) Hyperkalemia ICD Codes: E87.5 - Hyperkalemia Status: Acute Plan: resolved (5) Wounds, multiple ICD Codes: T07 - Unspecified multiple injuries Status: Acute Plan: wound care following (Valentin Jimenez MD) Betty Rose Jun 20, 2017 13:20 Valentin Jimenez MD Jun 23, 2017 18:26
--- NOTE | 2017-06-20 16:47 | PD.WCN.NOT ---
Wound Consult Description: Received wound care consult for wound management of abdomen, sacrum Communicated with: OTILIA Silva and Doctor Elsa Recommendation: 1.Please cleanse wounds to to L lateral abdomen, L mid abdomen, L medial abdomen with normal saline only and pat dry. Apply Santyl ointment mary thickness to wound beds with 2x2 gauze pads. Cover with bordered gauze and change dressing daily. 2. Cleanse wound to L anterior medial thigh with normal saline only and pat dry. Apply Santyl ointment mary thickness to wound bed and pack wound loosely with saline moistened, fluffed 4x4 gauze pad. Secure dressing with bordered gauze. Change dressing daily 3. Cleanse wounds to L hip, R flank and sacrum with normal saline and pat dry. Apply maxorb II (calcium alginate) packed loosely to wound beds and cover with bordered gauze or ABD pad and tape. Change dressing every other day or as needed for saturation or dislodgment. 4. please cleanse wound to L calf with normal saline and pat dry. Apply Xeroform dressing just over open skin tear and cover with dry 4x4 gauze pad. Secure dressing with rolled gauze and tape. Change dressing every other day or as needed for saturation or dislodgment. 5. Please turn patient every 2 hours or PRN for comfort and offloading of pressure from efren prominences. 6. Please vocera wound care nurse Friday - Friday for wound deterioration. Do not reconsult. Please obtain Airapy bed from environmental Additional Information: Patient seen on [address] [facility] for wounds to abdomen and sacrum. Patinet assessed with Carlota CHATMAN and chief underwriter. Patient was turned first to R side for wound assessment. Removed dressings in place to reveal Wound to sacrum, and L hip. Sacral wound presents with ~90% pale red moist non granulation tissue, ~10 % facia. Bone is palpated but not visualized. Wound drainage is minimal and sero -sanguinous without odor. Wound measures 6cm x 5 cm x 0.9cm. Wound margins are open and well defined. 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 Applied Maxorb II (calcium alginate) packed loosely to wound bed and covered with bordered gauze. Skin barrier film was sprayed to periwound before cover dressing was applied. L hip wound presents with 100% moist pink tissue. Wound drainage is minimal, sero-sanguinous, without odor. Periwound is moist intact skin. Wound margins are steep and well defined. Wound measures 12cm x 2 cm x 0.6cm. Cleansed wound with normal saline and patted dry. Applied Maxorb II to wound bed packed loosely and covered with bordered gauze dressing.Skin barrier film was applied to periwound before covering wound with bordered gauze. Removed dressings in place to L abdomen to reveal three wounds to L abdomen including: L lateral abdomen, L mid abdomen, and L medial abdomen. Wounds were cleansed with normal saline and patted dry.L Abdominal wounds are noted with induration this circumferential. L lateral abdominal wound is the smallest wound measuring 0.8cm x 1.2cm x ~0.2cm. L lateral abdominal wound presents with ~50% pink tissue and ~50% yellow slough that is moist, but adherent. Wound drainage is minimal and sero-sanguinous with mild odor. L mid abdominal wound measures 1.2cm x 2.1cm x ~0.6cm. Wound bed presents with ~ 60% yellow loosely adherent moist slough and ~40% red non granulation tissue. Wound drainage is minimal and sero-sanguinous with mild odor. Wound margins are even, and sharp. L medial abdominal wound measures 2.1cm x 3.5cm x ~0.7cm. Wound bed presents with ~80% yellow loosely adherent moist slough and ~20% red non granulation tissue. Wound drainage is also tjniddf-dvew-zbruyufahn with mild odor. Applied dry 4x4 gauze over wounds secured with paper tape. Skin barrier film was applied to periwound before applying tape to skin. RN to change when Santyl ointment is ordered. Removed dressing in place to L medial anterior thigh to reveal full thickness wound measuring 5cm x 10 cm x ~1.5cm. Wound bed presents with ~80% slough/ eschar and ~20% red moist tissue. Wound drainage is minimal and sero-sanguinous with foul odor. Cleansed wound with normal saline and applied saline moistened gauze to wound bed loosely packed and covered with dry 4x4 gauze pads, secured with paper tape. RN to apply Santyl when ordered as recommended above and when supplies arrive. Patient was then repositioned with moderate assistance to L side from and Carlota CHATMAN. Removed dressing in place to R flank to reveal full thickness wound to R flank measuring 1.5cm x14cm x~1cm. Wound bed presents with ~60% yellow/white facia, ~30% pink tissue and ~20% partial thickness skin loss with pink tissue. Wound was cleansed with normal saline and patted dry. Periwound is moist with partial thickness skin loss at 9 o'clock. Applied gauze pads with abd pad over wounds. Skin barrier film spray was applied to periwound, before securing dressing in place with paper tape. Wound to have dressing applied as recommended above by RN when supplies arrive. L calf presents with partial thickness skin loss with measures ~2cm x ~1cm x ~< 0.1cm. recommend to cleanse wound with normal saline and apply xeroform gauze with rolled gauze and tape. Removed soiled underpads from under patient and replaced with clean ultra sorb pad. Patient was positioned for comfort. [facility] was in room with patient when and Carlota CHATMAN left room. Dilcia Chavez [facility] Jun 20, 2017 16:47
--- NOTE | 2017-06-20 19:55 | EKG ---
Date Performed: 06/19/2017 Time Performed: 15:59:31 PTAGE: 56 years EKG: Sinus rhythm POSSIBLE LEFT ATRIAL ENLARGEMENT INDETERMINATE AXIS RIGHT BUNDLE BRANCH BLOCK LEFT ANTERIOR FASCICUL AR BLOCK ABNORMAL ECG Since the PREVIOUS TRACING , no significant change noted PREVIOUS TRACIN05/27/16 @ 0828 DOCTOR: Aleks Wright Interpretating Date/Time 06/20/2017 19:53:28
[2017-06-20 21:00] LABS: HEMATOCRIT 22.4 % (35.0-46.0); HEMOGLOBIN 7.7 GM/DL (11.6-15.3)
[2017-06-20 21:20] LABS: BICARBONATE 28.6 MEQ/L (21.0-32.0); CALCIUM 7.6 MG/DL (8.5-10.1); CREATININE 3.07 MG/DL (0.50-1.00)
[2017-06-21] VITALS (13 sets, daily range): BP systolic 95–130; BP diastolic 48–72; PULSE 61–77; RESP 0–20; TEMP 98–100.3; O2SAT 98–100
[2017-06-21] MEDS: INSULIN NovoLIN REGULAR SUPPLEMENTAL SCALE SQ SCH ×6 (01:00→21:13)
[2017-06-21] MEDS: CHLORHEXIDINE GLUCONATE 2 % 1 PACK (2 CLOTHS) TOP SCH (03:11)
[2017-06-21] MEDS: RESP: ALBUTEROL 2.5 MG/IPRATROPIUM 0.5 MG NEB (SCH) INH ×7 (04:00→23:48)
[2017-06-21] MEDS: PIPERACIL-TAZO 2.25 GM PREMIX 50 ML IV SCH ×3 (06:03→18:00)
[2017-06-21 06:09] LABS: PROTHROMBIN TIME - PATIENT 19.8 SEC (9.8-11.6)
[2017-06-21 06:33] LABS: BICARBONATE 28.3 MEQ/L (21.0-32.0); CREATININE 3.26 MG/DL (0.50-1.00); PHOSPHORUS 4.8 MG/DL (2.5-4.9)
[2017-06-21 06:39] LABS: AUTOMATED NEUTROPHIL # 4.1 TH/MM3 (1.8-7.7); BASOPHIL % 0.7 % (0.0-2.0); EOSINOPHIL # 0.1 TH/MM3 (0-0.4); EOSINOPHIL % 1.9 % (0.0-4.0); HEMATOCRIT 25.9 % (35.0-46.0); HEMOGLOBIN 8.8 GM/DL (11.6-15.3); LYMPHOCYTE # 1.4 TH/MM3 (1.0-4.8); MEAN CELL VOLUME 82.9 FL (80.0-100.0); MEAN CORPUSCULAR HEMOGLOBIN 28.1 PG (27.0-34.0); MEAN CORPUSCULAR HGB CONC 33.9 % (32.0-36.0); MONO % 7.7 % (0.0-8.0); MONOCYTE # 0.5 TH/MM3 (0-0.9); NEUT % 66.7 % (16.0-70.0); PLATELET COUNT 343 TH/MM3 (150-450); RED BLOOD COUNT 3.12 MIL/MM3 (4.00-5.30); RED CELL DISTRIBUTION WIDTH 17.4 % (11.6-17.2); WHITE BLOOD COUNT 6.1 TH/MM3 (4.0-11.0)
[2017-06-21] MEDS ORDERED: ALPRAZolam 0.25 MG TAB PO PRN (08:30)
[2017-06-21] MEDS: PARoxetine HCL 20 MG TAB PO SCH (09:06)
[2017-06-21] MEDS: CALCIUM CARBONATE 500 MG CHEWABLE TAB CHEW SCH ×2 (09:06→21:13)
[2017-06-21] MEDS: QUEtiapine FUMARATE 25 MG TAB PO SCH ×3 (09:06→18:01)
[2017-06-21] MEDS: GABAPENTIN 100 MG CAP PO SCH ×2 (09:08→21:13)
--- NOTE | 2017-06-21 09:53 | HHI.NPPN ---
Subjective Complaints: Obesity General Problems: Anemia Renal Failure: End Stage Renal Disease History of Present Illness This is a 56-year-old female with past medical history of diabetes mellitus, ischemic heart disease, hypertension, hyperlipidemia, anxiety disorder, hypothyroidism, morbid obesity, and history of multiple abdomen and thigh wounds. Patient presented to ED with bleeding from wound site. She had a wound care appt scheduled for today. It was found that patients INR is elevated at 6.3.The patient has history of end-stage renal disease on hemodialysis Friday, and Friday but she has been missing her dialysis. The last time she was dialyzed was Friday. Her potassium is elevated at 6.7 and received treatment in ED. She has been missing dialysis because of the pain and having to be left in wheelchair until son comes home from work. Patient will be transferred to the unit and bedside dialysis will be done. Additional Remarks dialyzed yesterday. Hyperkalemia and Anemia have improved. Review of Systems Respiratory Respiratory Remarks Denies SOB Cardiovascular Cardiac Remarks Denies CP Objective Data Data Vital Signs Date Time Temp Pulse Resp B/P (MAP) Pulse Ox O2 Delivery O2 Flow Rate FiO2 06/21/17 06:00 73 06/21/17 04:00 73 06/21/17 04:00 98.7 73 6 124/54 (77) 100 Manual Cuff/Auscultation 06/21/17 02:00 71 06/21/17 00:00 77 06/21/17 00:00 100.3 77 0 121/56 (77) 100 06/20/17 22:00 82 06/20/17 21:48 100 Nasal Cannula 2.00 06/20/17 20:00 99.5 86 18 110/56 (74) 99 107/51 (69) 06/20/17 20:00 86 06/20/17 18:00 90 06/20/17 16:00 98.8 73 11 122/54 (76) 100 06/20/17 16:00 73 06/20/17 14:00 75 06/20/17 12:00 98.9 117 21 132/58 (82) 100 06/20/17 12:00 117 06/20/17 10:00 90 -: 06/21/17 0402 06/21/17 0402 Tubes & Lines: Ruiz Physical Exam General Appearance: No Acute Distress, Comfortable, Obese Throat Throat Exam: Oral Mucosa [place] & Moist Pulmonary Resp Exam: Breath Sounds Equal, No Distress Cardiology CV Exam: Regular, Normal Sinus Rhythm Gastrointestinal/Abdomen GI Exam: Soft, Non-Tender Genitourinary Exam: Flank Non-Tender Integumentary Skin Exam: Clear, Warm Extremeties Extremities Exam: No Edema Assessment/Plan Problem List: (1) End stage kidney disease ICD Codes: N18.6 - End stage renal disease Status: Chronic Plan: End stage renal disease with hemodialysis on Friday, Friday, and Friday Has been non complaint with dialysis with dialysis treatments. Emergent dialysis on admission patient hyperkalemic at 6.8 Continue to monitor fluid and electrolytes. Hyperkalemia and anemia have improved. (2) Symptomatic anemia ICD Codes: D64.9 - Anemia, unspecified Status: Acute Plan: Improved after transfusion (3) Hypertension, benign ICD Codes: I10 - Benign hypertension Status: Chronic Plan: controlled (4) Hyperkalemia ICD Codes: E87.5 - Hyperkalemia Status: Acute Plan: resolved (5) Wounds, multiple ICD Codes: T07 - Unspecified multiple injuries Status: Acute Plan: continue wound care. Justin Marquez MD Jun 21, 2017 09:53
[2017-06-21] MEDS: LEVOTHYROXINE SODIUM 150 MCG TAB PO SCH (11:23)
[2017-06-21] MEDS: COLLAGENASE OINT 30 GM TUBE TOPICAL SCH (11:23)
[2017-06-21] MEDS: OXYBUTYNIN CHLORIDE 5 MG TAB PO SCH ×2 (11:23→21:14)
--- NOTE | 2017-06-21 13:45 | HHI.PR ---
Subjective Remarks Consulted by critical care medicine for medical management and transfer of care. Patient known to me. She has no complaints. She has chronic indwelling Ruiz catheter replaced 2 weeks ago. States she was consuming a lot of kale for the past week. Discussed with nursing Objective Vitals Vital Signs Date Time Temp Pulse Resp B/P (MAP) Pulse Ox O2 Delivery O2 Flow Rate FiO2 06/21/17 12:09 100 Nasal Cannula 2.00 06/21/17 12:00 61 06/21/17 12:00 98.1 61 10 95/48 (64) 98 06/21/17 10:00 64 06/21/17 08:00 99.3 73 17 117/55 (75) 100 06/21/17 08:00 73 06/21/17 06:00 73 06/21/17 04:00 73 06/21/17 04:00 98.7 73 6 124/54 (77) 100 Manual Cuff/Auscultation 06/21/17 02:00 71 06/21/17 00:00 77 06/21/17 00:00 100.3 77 0 121/56 (77) 100 06/20/17 22:00 82 06/20/17 21:48 100 Nasal Cannula 2.00 06/20/17 20:00 99.5 86 18 110/56 (74) 99 107/51 (69) 06/20/17 20:00 86 06/20/17 18:00 90 06/20/17 16:00 98.8 73 11 122/54 (76) 100 06/20/17 16:00 73 06/20/17 14:00 75 I/O 06/20/17 06/20/17 06/20/17 06/21/17 06/21/17 06/21/17 07:00 15:00 23:00 07:00 15:00 23:00 Intake Total 410 ml 375 ml 240 ml Output Total 200 ml 3425 ml 400 ml Balance -200 ml 410 ml -3050 ml -160 ml Intake Oral 375 ml 240 ml Packed Cells 400 ml Blood Product IV Normal Saline Flush 10 ml Output Urine Total 175 ml 225 ml 325 ml Stool Total 25 ml 200 ml 75 ml Hemodialysis 3000 ml Result Diagram: 06/21/172 06/21/17 040 Imaging Last Impressions Chest X-Ray 06/19/17 1425 Signed Impressions: Service Date/Time: June 14:44 - CONCLUSION: Opacity in the right midlung zone could represent airspace consolidation or fluid within the fissure. Moy Lechuga MD Lower Extremity Ultrasound 06/19/17 0000 Signed Impressions: Service Date/Time: June 18:06 - CONCLUSION: Suboptimal examination with no evidence of deep venous thrombosis. Jacoby Jj MD Objective Remarks GENERAL: Patient is 56 yo lying in bd in NAD SKIN: Warm and dry. Chronic wounds LLQ without signs of infection or active bleeding. CARDIOVASCULAR: Regular rate and rhythm without murmurs, gallops, or rubs. RESPIRATORY: Breath sounds equal bilaterally. No accessory muscle use. GASTROINTESTINAL: Abdomen soft, non-tender, obese with colostomy in place MUSCULOSKELETAL: No cyanosis, or edema. BACK: Nontender without obvious deformity. No CVA tenderness. Neuro: Awake and alert Procedures none A/P Problem List: (1) End stage kidney disease ICD Code: N18.6 - End stage renal disease Status: Chronic (2) Symptomatic anemia ICD Code: D64.9 - Anemia, unspecified Status: Acute Assessment and Plan 1. Respiratory insufficiency. Resolved 2. Hypotension- Resolved 3. Anemia secondary to acute blood loss from wound bleeding. Improved after blood transfusion. Continue to monitor 4. Coagulopathy secondary to Coumadin toxicity status post K Centra,. Resolved. Hx DVT repeat US w/o DVT but hi risk for recurrent DVT secondary to history and bedridden status. Will restart Coumadin, patient has been counseled to avoid green leafy vegetable. Consult PT 5. Hyperkalemia. Corrected received IV insulin, D50, bicarbonate, and albuterol inhaler s/p emergent HD 6. End-stage renal disease. HD per renal- Dr. Jimenez 7. Hypothyroidism. Stable 8. History of sleep apnea and morbid obesity. Needs weight loss 9. History of hypertension and DM. Stable 10. GNR UTI History of ESBL Klebsiella and MDR Pseudomonas in the urine in 2017. Ct Zosyn. Replace Ruiz and repeat UA Hx C diff consult ID Discharge Planning Transfer [facility] in 1-2 days Frederick Valadez MD Jun 21, 2017 13:45
[2017-06-21] MEDS ORDERED: HYDR-3583 PO (13:48)
--- NOTE | 2017-06-21 13:48 | HHI.DCPOC ---
Discharge Care Plan Diagnosis: (1) End stage kidney disease Your Health Problems Are: Difficulty with ADL Exercise Tolerance Goals to Promote Your Health * To prevent worsening of your condition and complications * To maintain your health at the optimal level Directions to Meet Your Goals Take your medications as prescribed Follow your dietary instruction Follow activity as directed Keep your appointments as scheduled Take your immunizations and boosters as scheduled If your symptoms worsen call your PCP, if no PCP go to Urgent Care Center or Emergency Room Smoking is Dangerous to Your Health. Avoid second hand smoke Call the 24-hour hour crisis hotline for domestic abuse at Frederick Valadez MD Jun 21, 2017 13:48
--- NOTE | 2017-06-21 13:49 | HHI.FF ---
Face to Face Verification Diagnosis: (1) Symptomatic anemia (2) End stage kidney disease Physical Therapy Order: Evaluate and Treat, Improve ambulation, Strength and gait training Home Health Nursing Order: Medical education Signs/symptoms of disease process Diabetic education Oxygen administration education Medication education-adverse effect Wound care and dressing changes Nursing assessment with vital signs I have seen patient Ana María Foley on 06/21/17. My clinical findings support the need for the requested home health care services because: Deconditioned w/ increased weakness I certify that my clinical findings support that this patient is homebound because: Unsafe to leave home unassisted Frederick Valadez MD Jun 21, 2017 13:49
[2017-06-21 20:20] LABS: BACTERIA, URINE MOD /hpf; BILIRUBIN, URINE NEG (NEG); BLOOD, URINE SMALL (NEG); GLUCOSE,URINE 70 mg/dL (NEG); KETONE, URINE NEG (NEG); NITRITE,URINE POS (NEG); PH, URINE 8.5 (5.0-8.5); SQUAMOUS EPITHELIAL CELL URINE 2 /hpf (0-5); URINE COLOR YELLOW (YELLW/STRAW); URINE LEUKOCYTE ESTERASE LARGE (NEG); WHITE BLOOD CELL CLUMPS MANY
[2017-06-21] MEDS: ACETAMINOPHEN/HYDROcodone 325 MG/10 MG TAB PO PRN (21:14)
[2017-06-21] MEDS: ATORVASTATIN 40 MG TAB PO SCH (21:14)
[2017-06-22] MEDS: PIPERACIL-TAZO 2.25 GM PREMIX 50 ML IV SCH ×3 (00:20→11:50)
[2017-06-22 00:29] VITALS: BP 110/62; PULSE 63; RESP 18; TEMP 98.5; O2SAT 99
[2017-06-22] MEDS: CHLORHEXIDINE GLUCONATE 2 % 1 PACK (2 CLOTHS) TOP SCH (03:22)
[2017-06-22] MEDS: RESP: ALBUTEROL 2.5 MG/IPRATROPIUM 0.5 MG NEB (SCH) INH ×6 (03:23→23:39)
[2017-06-22 05:37] VITALS: BP 128/68; PULSE 66; RESP 18; TEMP 99.3
[2017-06-22] MEDS: LEVOTHYROXINE SODIUM 150 MCG TAB PO SCH (06:10)
[2017-06-22 07:41] VITALS: BP 144/66; PULSE 66; RESP 20; TEMP 99; O2SAT 97
[2017-06-22] MEDS: INSULIN NovoLIN REGULAR SUPPLEMENTAL SCALE SQ SCH ×4 (08:05→21:00)
[2017-06-22 08:17] VITALS: O2SAT 92
[2017-06-22] MEDS: CALCIUM CARBONATE 500 MG CHEWABLE TAB CHEW SCH ×2 (09:24→21:00)
[2017-06-22] MEDS: GABAPENTIN 100 MG CAP PO SCH ×2 (09:24→21:00)
[2017-06-22] MEDS: QUEtiapine FUMARATE 25 MG TAB PO SCH ×3 (09:25→18:27)
[2017-06-22] MEDS: OXYBUTYNIN CHLORIDE 5 MG TAB PO SCH ×2 (09:25→21:00)
[2017-06-22] MEDS: PARoxetine HCL 20 MG TAB PO SCH (09:25)
--- NOTE | 2017-06-22 12:49 | HHI.NPPN ---
Subjective Complaints: Obesity General Problems: Anemia Renal Failure: End Stage Renal Disease History of Present Illness This is a 56-year-old female with past medical history of diabetes mellitus, ischemic heart disease, hypertension, hyperlipidemia, anxiety disorder, hypothyroidism, morbid obesity, and history of multiple abdomen and thigh wounds. Patient presented to ED with bleeding from wound site. She had a wound care appt scheduled for today. It was found that patients INR is elevated at 6.3.The patient has history of end-stage renal disease on hemodialysis Friday, and Friday but she has been missing her dialysis. The last time she was dialyzed was Friday. Her potassium is elevated at 6.7 and received treatment in ED. She has been missing dialysis because of the pain and having to be left in wheelchair until son comes home from work. Patient will be transferred to the unit and bedside dialysis will be done. Additional Remarks Much more alert today. Wants to be discharged. Lying in bed. Review of Systems Respiratory Respiratory Remarks Denies SOB Cardiovascular Cardiac Remarks Denies CP Objective Data Data Vital Signs Date Time Temp Pulse Resp B/P (MAP) Pulse Ox O2 Delivery O2 Flow Rate FiO2 06/22/17 08:17 92 21 06/22/17 07:41 99.0 66 20 144/66 (92) 97 06/22/17 05:37 99.3 66 18 128/68 (88) 06/22/17 00:29 98.5 63 18 110/62 (78) 99 06/21/17 22:17 18 06/21/17 21:29 130/72 (91) 06/21/17 19:38 100 21 06/21/17 17:57 98.7 64 20 105/49 (67) 99 06/21/17 16:00 68 06/21/17 16:00 98.0 68 12 107/51 (69) 100 06/21/17 14:00 64 -: 06/21/17 0402 06/21/17 0402 Microbiology 06/21/17 Urine Culture - Preliminary, Resulted IMMATURE GROWTH - REINCUBATE Tubes & Lines: Ruiz Physical Exam General Appearance: No Acute Distress, Comfortable, Obese Throat Throat Exam: Oral Mucosa [place] & Moist Pulmonary Resp Exam: Breath Sounds Equal, No Distress Cardiology CV Exam: Regular, Normal Sinus Rhythm Gastrointestinal/Abdomen GI Exam: Soft, Non-Tender Genitourinary Exam: Flank Non-Tender Integumentary Skin Exam: Clear, Warm Extremeties Extremities Exam: No Edema Assessment/Plan Problem List: (1) End stage kidney disease ICD Codes: N18.6 - End stage renal disease Status: Chronic Plan: End stage renal disease with hemodialysis on Friday, Friday, and Friday Has been non complaint with dialysis with dialysis treatments. Emergent dialysis on admission patient hyperkalemic at 6.8 Continue to monitor fluid and electrolytes. Hyperkalemia and anemia have improved. (2) Symptomatic anemia ICD Codes: D64.9 - Anemia, unspecified Status: Acute Plan: Improved after transfusion (3) Hypertension, benign ICD Codes: I10 - Benign hypertension Status: Chronic Plan: controlled (4) Hyperkalemia ICD Codes: E87.5 - Hyperkalemia Status: Acute Plan: resolved (5) Wounds, multiple ICD Codes: T07 - Unspecified multiple injuries Status: Acute Plan: continue wound care. Justin Marquez MD Jun 22, 2017 12:49
--- NOTE | 2017-06-22 14:36 | PD.ID.CON ---
History of Present Illness Service ID Consult Requested By Dr Valadez Reason for Consult ESBL UTI Primary Care Physician Aline Velarde MD Diagnoses: History of Present Illness Known to me 56 yo F with morbid obesity , DM and ESRD, RLE DVT on coumadin, and chronic infected wound on L side and L thigh presented with bleeding from her abdominal wound her INR was 6+ and she received teatment for coumadin tixicity she also has hyperKalemia Pt has chronic mujica and sp colostoimy (both 2/2 her chronic wound) she presented with low grade fever up to 100.3 x 1 but no leukocytosis started on zosyn Markedly abnormal UA with oyyuria, grew GNB from urine and wound clx Had ESBL + Kleb in urine clx from 5 days ago Pt is debilitated and bedridden Review of Systems Except as stated in HPI: all other systems reviewed are Neg Past Family Social History Allergies: Coded Allergies: clarithromycin (Verified Allergy, Severe, swelling of face, 06/19/17) ferrous fumarate (Verified Adverse Reaction, Severe, Constipation, 06/19/17 ) ferrous sulfate (Verified Adverse Reaction, Severe, Constipation, 06/19/17) ferumoxytol (Verified Adverse Reaction, Severe, Constipation, 06/19/17) iron (Verified Adverse Reaction, Severe, Constipation, 06/19/17) morphine (Verified Adverse Reaction, Severe, 06/19/17) renal insufficiency. multivitamin infusion, adult no.4 with vitamin K (Verified Adverse Reaction, Severe, Constipation, 06/19/17) multivitamin with iron,other minerals (Verified Adverse Reaction, Severe, Constipation, 06/19/17) *MDRO Multi-Drug Resistant Organism (Verified Adverse Reaction, Unknown, VRE, MRSA, MDR-Pseudomonas, 06/19/17) VRE (abdominal wound) - 07/09/16 MDR-Pseudomonas (abdominal wound) - 07/09/16 MRSA (abdomen wound) - 08/28/16 Past Medical History Morbid obesity Osteoarthritis Hyperlipidemia explained CHF Diabetes Hypertension CAD ESRD on hemodialysis Friday and Friday Spinal stenosis Hypothyroidism Sleep apnea Problems with necrotic abdominal wounds Multiple decubitus ulcers recent C.diff - last year Past Surgical History LAP-BAND 2004 Lap cholecystectomy 1996 Previous stent placement for her CAD Placement of a permacath section 1 AV fistula in the left upper extremity Multiple excisional debridement of her large abdominal wounds during her last admission The last surgical procedure included a panniculectomy and partial closure of her large abdominal wound done June 28, 2016 Active Ordered Medications Medications where reviewed in EMR Antibiotics Include: zosyn Family History reviewed Non-Contributory. Social History in rehab No smoking No alcohol abuse No illicit drug Physical Exam Vital Signs Vital Signs Date Time Temp Pulse Resp B/P (MAP) Pulse Ox O2 Delivery O2 Flow Rate FiO2 06/22/17 08:17 92 21 06/22/17 07:41 99.0 66 20 144/66 (92) 97 06/22/17 05:37 99.3 66 18 128/68 (88) 06/22/17 00:29 98.5 63 18 110/62 (78) 99 06/21/17 22:17 18 06/21/17 21:29 130/72 (91) 06/21/17 19:38 100 21 06/21/17 17:57 98.7 64 20 105/49 (67) 99 06/21/17 16:00 68 06/21/17 16:00 98.0 68 12 107/51 (69) 100 Physical Exam CONSTITUTIONAL/GENERAL: This is amorbidly obese female patient, in no apparent distress. TUBES/LINES/DRAINS: SKIN: No jaundice, rashes, or lesions. Ecchymoses on upper extremities. No wounds seen anteriorly. Skin temperature appropriate. Not diaphoretic. Skin exam showew 2 open wounds in LLQ draining foul smelling cloudy dc also L inner thigh wound with necrotic eschar, foul smelling All wounds sruuounded by erythemaotus induirated area and exquisetly tender to touch HEAD: Atraumatic. Normocephalic. EYES: Pupils equal and round and reactive. No injection or drainage. Fundi not examined. ENT: Hearing grossly normal. Nose without bleeding or purulent drainage. Throat without visible erythema, exudates, masses, or lesions. NECK: Trachea midline. Supple, nontender. No palpable thyroid enlargement or nodularity. CARDIOVASCULAR: Regular rate and rhythm without murmurs, gallops, or rubs. No JVD. Peripheral pulses symmetric. RESPIRATORY/CHEST: Symmetric, unlabored respirations. Clear to auscultation. Breath sounds equal bilaterally. No wheezes, rales, or rhonchi. GASTROINTESTINAL: Abdomen soft, non-tender, nondistended. No hepato-splenomegaly , or palpable masses. No guarding. Bowel sounds present. Colostomy in place RLQ GENITOURINARY: Without palpable bladder distension. mujica in place with yellow urine MUSCULOSKELETAL: Extremities without clubbing, cyanosis, or edema. No mottling or clubbing. Hyperpigmentation, chronic BLE LYMPHATICS: No palpable cervical or supraclavicular adenopathy. NEUROLOGICAL:awake and alert Motor and sensory grossly within normal limits. Follows commands. Clear speech. Moves all extremities. PSYCHIATRIC: calm and cooperative Laboratory Laboratory Tests Test 06/21/17 19:30 Urine Color YELLOW Urine Turbidity CLOUDY Urine pH 8.5 Urine Specific [place] 1.016 Urine Protein 300 Urine Glucose (UA) 70 Urine Ketones NEG Urine Occult Blood SMALL Urine Nitrite POS Urine Bilirubin NEG Urine Urobilinogen LESS THAN 2.0 Urine Leukocyte Esterase LARGE Urine RBC 43 Urine WBC Urine WBC Clumps MANY Urine Squamous Epithelial Cells 2 Urine Bacteria MOD Microscopic Urinalysis Comment CATH-CULTURE IND Date/Time Source Procedure Growth Status 06/21/17 19:30 Urine Catheterized Urine Urine Culture - Preliminary IMMATURE GROWTH - REINCUBATE Resulted 06/19/17 17:41 Wound Abdomen Gram Stain - Final Resulted 06/19/17 17:41 Wound Culture - Preliminary Gram Negative [place] Resulted Result Diagram: 06/21/17 0402 06/21/17 0402 Imaging Last Impressions Chest X-Ray 06/19/17 1425 Signed Impressions: Service Date/Time: June 14:44 - CONCLUSION: Opacity in the right midlung zone could represent airspace consolidation or fluid within the fissure. Moy Lechuga MD Lower Extremity Ultrasound 06/19/17 0000 Signed Impressions: Service Date/Time: June 18:06 - CONCLUSION: Suboptimal examination with no evidence of deep venous thrombosis. Jacoby Jj MD Assessment and Plan Assessment and Plan UTI, ESBL + Kleb in recent urine clx - gram negative infx now Chronic wounds L thigh and LLQ dc zosyn start Ertapenem will chk AFB clx as well Bel Adorno MD Jun 22, 2017 14:36
[2017-06-22] MEDS ORDERED: ASP: Documented ESBL, MDR A baumannii or P. aeruginosa PRN (14:45)
[2017-06-22] MEDS ORDERED: MISCELLANEOUS PHARMACY INFORMATION XX PRN (14:45)
[2017-06-22] MEDS ORDERED: ERTAPENEM INJ 500 MG in SODIUM CHLORIDE 0.9% INJ 100 ML IV SCH (16:00)
[2017-06-22 16:23] VITALS: BP 141/51; PULSE 70; RESP 20; TEMP 98.5; O2SAT 99
--- NOTE | 2017-06-22 17:19 | HHI.PR ---
Subjective Remarks Patient says she is feeling all right today. Denies any chest pain or shortness of breath. Denies any nausea or vomiting. Reports pain is controlled. Objective Vital Signs Date Time Temp Pulse Resp B/P (MAP) Pulse Ox O2 Delivery O2 Flow Rate FiO2 06/22/17 16:23 98.5 70 20 141/51 (81) 99 06/22/17 08:17 92 21 06/22/17 07:41 99.0 66 20 144/66 (92) 97 06/22/17 05:37 99.3 66 18 128/68 (88) 06/22/17 00:29 98.5 63 18 110/62 (78) 99 06/21/17 22:17 18 06/21/17 21:29 130/72 (91) 06/21/17 19:38 100 21 06/21/17 17:57 98.7 64 20 105/49 (67) 99 I/O 06/21/17 06/21/17 06/21/17 06/22/17 06/22/17 06/22/17 07:00 15:00 23:00 07:00 15:00 23:00 Intake Total 240 ml 50 ml 340 ml 660 ml Output Total 400 ml 500 ml Balance -160 ml 50 ml -160 ml 660 ml Intake Oral 240 ml 240 ml 660 ml IV Total 50 ml 100 ml Output Urine Total 325 ml 500 ml Stool Total 75 ml Result Diagram: 06/21/17 0402 06/21/172 Objective Remarks GENERAL: Morbidly obese female lying in bed. Appears comfortable. She is alert and oriented 3. SKIN: Warm and dry. HEAD: Normocephalic. EYES: No scleral icterus. No injection or drainage. NECK: Supple, trachea midline. No JV. CARDIOVASCULAR: Regular rate and rhythm without murmurs, gallops, or rubs. RESPIRATORY: Breath sounds equal bilaterally. No accessory muscle use. GASTROINTESTINAL: Abdomen soft, non-tender, nondistended. Left abdominal wound dressed with dressing clean dry and intact. No surrounding erythema. MUSCULOSKELETAL: No cyanosis, or edema. BACK: Nontender without obvious deformity. No CVA tenderness. A/P Assessment and Plan //Respiratory insufficiency. Resolved //Hypotension- Resolved // Anemia secondary to acute blood loss from wound bleeding. Improved after blood transfusion. Continue to monitor // Coagulopathy secondary to Coumadin toxicity status post K Centra,. Resolved. Hx DVT repeat US w/o DVT but hi risk for recurrent DVT secondary to history and bedridden status. Will restart Coumadin, patient has been counseled to avoid green leafy vegetable. Consult PT = INR 2.0. Restart Coumadin. Discussed with pharmacy. Appreciate assistance. //Hyperkalemia. Corrected received IV insulin, D50, bicarbonate, and albuterol inhaler s/p emergent HD // End-stage renal disease. HD per renal- Dr. Jimenez // Hypothyroidism. Stable //History of sleep apnea and morbid obesity. Needs weight loss //History of hypertension and DM. Stable //GNR UTI History of ESBL Klebsiella and MDR Pseudomonas in the urine in 2017. Ct Zosyn. Replace Ruiz and repeat UA Hx C diff consult ID = Wound culture reviewed. Urine culture still pending. Continue antibiotics as per infectious disease. Discharge Planning PT recommends home health Patient will likely need IV antibiotics at home. Pending urine culture Pending final ID recommendations. Ramirez William MD Jun 22, 2017 17:19
[2017-06-22] MEDS: ERTAPENEM INJ 500 MG in SODIUM CHLORIDE 0.9% INJ 100 ML IV SCH (18:35)
[2017-06-22] MEDS: ATORVASTATIN 40 MG TAB PO SCH (21:00)
[2017-06-22 21:39] VITALS: BP 132/70; PULSE 75; RESP 18; TEMP 98.8; O2SAT 98
[2017-06-22] MEDS: ACETAMINOPHEN/HYDROcodone 325 MG/10 MG TAB PO PRN (22:45)
[2017-06-22] MEDS: COLLAGENASE OINT 30 GM TUBE TOPICAL SCH (23:00)
[2017-06-23] VITALS (7 sets, daily range): BP systolic 110–150; BP diastolic 62–74; PULSE 69–75; RESP 18–22; TEMP 97.9–98.9; O2SAT 97–99
[2017-06-23] MEDS: RESP: ALBUTEROL 2.5 MG/IPRATROPIUM 0.5 MG NEB (SCH) INH ×4 (02:54→16:47)
[2017-06-23] MEDS: CHLORHEXIDINE GLUCONATE 2 % 1 PACK (2 CLOTHS) TOP SCH (04:00)
[2017-06-23] MEDS: LEVOTHYROXINE SODIUM 150 MCG TAB PO SCH (06:49)
[2017-06-23] MEDS: INSULIN NovoLIN REGULAR SUPPLEMENTAL SCALE SQ SCH ×4 (08:00→21:39)
[2017-06-23] MEDS: COLLAGENASE OINT 30 GM TUBE TOPICAL SCH (09:00)
[2017-06-23] MEDS: OXYBUTYNIN CHLORIDE 5 MG TAB PO SCH ×2 (09:52→21:39)
[2017-06-23] MEDS: PARoxetine HCL 20 MG TAB PO SCH (09:52)
[2017-06-23] MEDS: GABAPENTIN 100 MG CAP PO SCH ×2 (09:52→21:38)
[2017-06-23] MEDS: CALCIUM CARBONATE 500 MG CHEWABLE TAB CHEW SCH ×2 (09:52→21:38)
[2017-06-23] MEDS: QUEtiapine FUMARATE 25 MG TAB PO SCH ×3 (09:53→18:10)
--- NOTE | 2017-06-23 10:00 | HHI.PR ---
Subjective Remarks Patient says she is feeling all right. Reports pain is controlled. Denies any chest pain or shortness of breath. Discussed with nursing. No acute issues. Objective Vital Signs Date Time Temp Pulse Resp B/P (MAP) Pulse Ox O2 Delivery O2 Flow Rate FiO2 06/23/17 09:52 99 21 06/23/17 05:33 98.0 72 18 98 06/23/17 03:44 110/62 (78) 06/22/17 21:39 98.8 75 18 132/70 (90) 98 06/22/17 16:23 98.5 70 20 141/51 (81) 99 I/O 06/22/17 06/22/17 06/22/17 06/23/17 06/23/17 06/23/17 07:00 15:00 23:00 07:00 15:00 23:00 Intake Total 340 ml 760 ml Output Total 500 ml 450 ml Balance -160 ml 760 ml -450 ml Intake Oral 240 ml 660 ml IV Total 100 ml 100 ml Output Urine Total 500 ml 450 ml Result Diagram: 06/21/1740106/21/17401 Objective Remarks GENERAL: Morbidly obese female lying in bed. Appears comfortable. She is alert and oriented 3. SKIN: Warm and dry. HEAD: Normocephalic. EYES: No scleral icterus. No injection or drainage. NECK: Supple, trachea midline. No JV. CARDIOVASCULAR: Regular rate and rhythm without murmurs, gallops, or rubs. RESPIRATORY: Breath sounds equal bilaterally. No accessory muscle use. GASTROINTESTINAL: Abdomen soft, non-tender, nondistended. Left abdominal wound dressed with dressing clean dry and intact. No surrounding erythema. MUSCULOSKELETAL: No cyanosis, or edema. Bilateral lower extremities with dry flaky skin as before. BACK: Nontender without obvious deformity. No CVA tenderness. A/P Assessment and Plan //Respiratory insufficiency. Resolved //Hypotension- Resolved // Anemia secondary to acute blood loss from wound bleeding. Improved after blood transfusion. Continue to monitor // Coagulopathy secondary to Coumadin toxicity status post K Centra,. Resolved. Hx DVT repeat US w/o DVT but hi risk for recurrent DVT secondary to history and bedridden status. Will restart Coumadin, patient has been counseled to avoid green leafy vegetable. Consult PT = INR 2.0. Restart Coumadin. Discussed with pharmacy. Appreciate assistance. //Hyperkalemia. Corrected received IV insulin, D50, bicarbonate, and albuterol inhaler s/p emergent HD // End-stage renal disease. HD per renal- Dr. Jimenez // Hypothyroidism. Stable //History of sleep apnea and morbid obesity. Needs weight loss //History of hypertension and DM. Stable //Left lower abdominal wound growing ESBL //GNR UTI History of ESBL Klebsiella and MDR Pseudomonas in the urine in 2017. Ct Zosyn. Replace Ruiz and repeat UA Hx C diff consult ID = Wound culture reviewed. Urine culture still pending. Continue antibiotics as per infectious disease. = 06/23. Urine culture still pending. Replace Ruiz. Discussed with nursing and patient. Discussed with infectious disease. May need home IV antibiotics which will need to be arranged by ID. Discharge Planning PT recommends home health Patient will likely need IV antibiotics at home. Pending urine culture Pending final ID recommendations. Ramirez William MD Jun 23, 2017 10:00
[2017-06-23 10:26] LABS: INTERNATIONAL NORMALIZED RATIO 1.5 RATIO; PROTHROMBIN TIME - PATIENT 15.6 SEC (9.8-11.6)
--- NOTE | 2017-06-23 10:39 | HHI.NPPN ---
Subjective Complaints: Obesity General Problems: Anemia Renal Failure: End Stage Renal Disease History of Present Illness This is a 56-year-old female with past medical history of diabetes mellitus, ischemic heart disease, hypertension, hyperlipidemia, anxiety disorder, hypothyroidism, morbid obesity, and history of multiple abdomen and thigh wounds. Patient presented to ED with bleeding from wound site. She had a wound care appt scheduled for today. It was found that patients INR is elevated at 6.3.The patient has history of end-stage renal disease on hemodialysis Friday, and Friday but she has been missing her dialysis. The last time she was dialyzed was Friday. Her potassium is elevated at 6.7 and received treatment in ED. She has been missing dialysis because of the pain and having to be left in wheelchair until son comes home from work. Patient will be transferred to the unit and bedside dialysis will be done. Additional Remarks Sitting on side of bed with PT. No SOB or edema noted. (Betty Rose) Review of Systems Respiratory Respiratory Remarks Denies SOB (Betty Rose) Cardiovascular Cardiac Remarks Denies CP (Betty Rose) Objective Data Data Vital Signs Date Time Temp Pulse Resp B/P (MAP) Pulse Ox O2 Delivery O2 Flow Rate FiO2 06/23/17 09:52 99 21 06/23/17 08:00 98.0 72 22 122/74 (90) 98 06/23/17 05:33 98.0 72 18 98 06/23/17 03:44 110/62 (78) 06/22/17 21:39 98.8 75 18 132/70 (90) 98 06/22/17 16:23 98.5 70 20 141/51 (81) 99 (Betty Rose) -: 06/21/17 0402 06/21/17 0402 Imaging Last Impressions Chest X-Ray 06/19/17 1425 Signed Impressions: Service Date/Time: June 14:44 - CONCLUSION: Opacity in the right midlung zone could represent airspace consolidation or fluid within the fissure. Moy Lechuga MD Lower Extremity Ultrasound 06/19/17 0000 Signed Impressions: Service Date/Time: June 18:06 - CONCLUSION: Suboptimal examination with no evidence of deep venous thrombosis. Jacoby Jj MD Tubes & Lines: Ruiz (Btety Rose. [employer]LING GRADER) Physical Exam General Appearance: No Acute Distress, Comfortable, Obese (AmaurilerKim eppersonne M. PICKLING GRADER) Throat Throat Exam: Oral Mucosa [place] & Moist (AmaurilerKim eppersonne M. [employer]LING GRADER) Pulmonary Resp Exam: Breath Sounds Equal, No Distress (AmaurilerBetty epperson M. PICKLING GRADER) Cardiology CV Exam: Regular, Normal Sinus Rhythm (AmaurilerKim eppersonne M. PICKLING GRADER) Gastrointestinal/Abdomen GI Exam: Soft, Non-Tender GI Remarks large (AmaurilerKim eppersonne M. [employer]LING GRADER) Genitourinary Exam: Flank Non-Tender (AmaurilerKim eppersonne M. [employer]ICKLING GRADER) Integumentary Skin Exam: Clear, Warm Skin Remarks Multiple abdominal wounds, upper right thigh (AmaurilerKim eppersonne M. [employer]ICKLING GRADER) Extremeties Extremities Exam: No Edema (Betty Rose M. PICKLING GRADER) Assessment/Plan Problem List: (1) End stage kidney disease ICD Codes: N18.6 - End stage renal disease Status: Chronic Plan: End stage renal disease with hemodialysis on Friday, Friday, and Friday Has been non complaint with dialysis with dialysis treatments. Emergent dialysis on admission patient hyperkalemic at 6.8 Plan Dialysis planned for today Epogen with dialysis Hyperkalemia resolved Continue to monitor fluid and electrolytes. (2) Symptomatic anemia ICD Codes: D64.9 - Anemia, unspecified Status: Acute Plan: Improved after transfusion (3) Hypertension, benign ICD Codes: I10 - Benign hypertension Status: Chronic Plan: controlled (4) Hyperkalemia ICD Codes: E87.5 - Hyperkalemia Status: Acute Plan: resolved (5) Wounds, multiple ICD Codes: T07 - Unspecified multiple injuries Status: Acute Plan: continue wound care. (Betty RoseP) Problem List: (1) End stage kidney disease ICD Codes: N18.6 - End stage renal disease Status: Chronic Plan: End stage renal disease with hemodialysis on Friday, Friday, and Friday Has been non complaint with dialysis with dialysis treatments. Emergent dialysis on admission patient hyperkalemic at 6.8 Plan Dialysis planned for today Epogen with dialysis Hyperkalemia resolved Continue to monitor fluid and electrolytes. Patient seen and examined, agree with above. HD tomorrow, possible discharge in AM. (2) Symptomatic anemia ICD Codes: D64.9 - Anemia, unspecified Status: Acute Plan: Improved after transfusion (3) Hypertension, benign ICD Codes: I10 - Benign hypertension Status: Chronic Plan: controlled (4) Hyperkalemia ICD Codes: E87.5 - Hyperkalemia Status: Acute Plan: resolved (5) Wounds, multiple ICD Codes: T07 - Unspecified multiple injuries Status: Acute Plan: continue wound care. (Valentin Jimenez MD) Betty RoseP Jun 23, 2017 10:39 Valentin Jimenez MD Jun 23, 2017 18:35
[2017-06-23] MEDS: GENTAMICIN SULFATE 20 MG/2 ML VIAL OTHER PRN (12:44)
[2017-06-23] MEDS: WARFARIN SOD 1 MG TAB PO SCH (16:44)
[2017-06-23] MEDS: ACETAMINOPHEN/HYDROcodone 325 MG/10 MG TAB PO PRN (18:10)
[2017-06-23] MEDS: ERTAPENEM INJ 500 MG in SODIUM CHLORIDE 0.9% INJ 100 ML IV SCH (18:11)
--- NOTE | 2017-06-23 19:51 | HHI.PR ---
Addendum to Inpatient Note Additional Information seen around 3 30 pm full note to follow Bel Adorno MD Jun 23, 2017 19:51
--- NOTE | 2017-06-23 20:31 | HHI.IDPN ---
Subjective Subjective Remarks no new co growing MDROs from urine, wound clx afebrile Antibiotics ertapenem Allergies: Coded Allergies: clarithromycin (Verified Allergy, Severe, swelling of face, 06/19/17) ferrous fumarate (Verified Adverse Reaction, Severe, Constipation, 06/19/17 ) ferrous sulfate (Verified Adverse Reaction, Severe, Constipation, 06/19/17) ferumoxytol (Verified Adverse Reaction, Severe, Constipation, 06/19/17) iron (Verified Adverse Reaction, Severe, Constipation, 06/19/17) morphine (Verified Adverse Reaction, Severe, 06/19/17) renal insufficiency. multivitamin infusion, adult no.4 with vitamin K (Verified Adverse Reaction, Severe, Constipation, 06/19/17) multivitamin with iron,other minerals (Verified Adverse Reaction, Severe, Constipation, 06/19/17) *MDRO Multi-Drug Resistant Organism (Verified Adverse Reaction, Unknown, VRE, MRSA, MDR-Pseudomonas, 06/19/17) VRE (abdominal wound) - 07/09/16 MDR-Pseudomonas (abdominal wound) - 07/09/16 MRSA (abdomen wound) - 08/28/16 Objective . Vital Signs Date Time Temp Pulse Resp B/P (MAP) Pulse Ox O2 Delivery O2 Flow Rate FiO2 06/23/17 16:00 98.9 73 19 112/64 (80) 97 06/23/17 12:00 98.3 69 20 130/68 (88) 97 06/23/17 09:52 99 21 06/23/17 08:00 98.0 72 22 122/74 (90) 98 06/23/17 05:33 98.0 72 18 98 06/23/17 03:44 110/62 (78) 06/22/17 21:39 98.8 75 18 132/70 (90) 98 06/23/17 06/23/17 06/24/17 15:00 23:00 07:00 Output Total 3000 ml Balance -3000 ml Hemodialysis 3000 ml . Microbiology Date/Time Source Procedure Growth Status 06/21/17 19:30 Urine Catheterized Urine Urine Culture - Final Klebsiella Pneumoniae Esbl Pos Multi-Drug Resistant Pseudomonas Aeruginosa Complete Imaging Last Impressions Chest X-Ray 06/19/17 2695 Signed Impressions: Service Date/Time: June 14:44 - CONCLUSION: Opacity in the right midlung zone could represent airspace consolidation or fluid within the fissure. Moy Lechuga MD Lower Extremity Ultrasound 06/19/17 0000 Signed Impressions: Service Date/Time: June 18:06 - CONCLUSION: Suboptimal examination with no evidence of deep venous thrombosis. Jacoby Jj MD Physical Exam CONSTITUTIONAL/GENERAL: This is amorbidly obese female patient, in no apparent distress. TUBES/LINES/DRAINS: Assessment & Plan Remarks UTI, ESBL + Kleb in recent urine clx MDRO PSAE - gram negative infx now Chronic wounds L thigh and LLQ amoxicillin avicaz will chk AFB clx as well Bel Adorno MD Jun 23, 2017 20:31
[2017-06-23] MEDS: ATORVASTATIN 40 MG TAB PO SCH (21:38)
[2017-06-23] MEDS ORDERED: cefTAZidime/AVIBACTAM INJ 0.94 GM in SODIUM CHLORIDE 0.9% INJ 50 ML IV SCH (22:00)
[2017-06-24] VITALS: BP 98/68; PULSE 80; RESP 18; TEMP 98.4; O2SAT 99
[2017-06-24 04:00] VITALS: BP 134/76; PULSE 61; RESP 18; TEMP 97.2; O2SAT 95
[2017-06-24] MEDS: CHLORHEXIDINE GLUCONATE 2 % 1 PACK (2 CLOTHS) TOP SCH (04:00)
[2017-06-24] MEDS: LEVOTHYROXINE SODIUM 150 MCG TAB PO SCH (05:53)
[2017-06-24 07:32] LABS: INTERNATIONAL NORMALIZED RATIO 1.3 RATIO; PROTHROMBIN TIME - PATIENT 13.4 SEC (9.8-11.6)
[2017-06-24 08:00] VITALS: BP 138/76; PULSE 73; RESP 18; TEMP 98.5; O2SAT 98
[2017-06-24] MEDS: INSULIN NovoLIN REGULAR SUPPLEMENTAL SCALE SQ SCH ×2 (08:00→12:55)
[2017-06-24] MEDS ORDERED: PILL SPLITTER OTHER PRN (08:30)
--- NOTE | 2017-06-24 08:38 | HHI.PR ---
Subjective Remarks Follow-up for multiple abdominal wounds and bleeding in a patient with history of ESRD, CAD on warfarin due to DVT. Objective Vitals Vital Signs Date Time Temp Pulse Resp B/P (MAP) Pulse Ox O2 Delivery O2 Flow Rate FiO2 06/24/17 04:00 97.2 61 18 134/76 (95) 95 06/24/17 00:00 98.4 80 18 98/68 (78) 99 06/23/17 20:00 97.9 75 18 150/63 (92) 97 06/23/17 16:00 98.9 73 19 112/64 (80) 97 06/23/17 12:00 98.3 69 20 130/68 (88) 97 06/23/17 09:52 99 21 I/O 06/23/17 06/23/17 06/23/17 06/24/17 06/24/17 06/24/17 07:00 15:00 23:00 07:00 15:00 23:00 Output Total 450 ml 3000 ml 1050 ml Balance -450 ml -3000 ml -1050 ml Output Urine Total 450 ml 1050 ml Hemodialysis 3000 ml Result Diagram: 06/21/17 0402 06/21/17 0402 Imaging Last Impressions Chest X-Ray 06/19/17 1425 Signed Impressions: Service Date/Time: June 14:44 - CONCLUSION: Opacity in the right midlung zone could represent airspace consolidation or fluid within the fissure. Moy eLchuga MD Lower Extremity Ultrasound 06/19/17 0000 Signed Impressions: Service Date/Time: June 18:06 - CONCLUSION: Suboptimal examination with no evidence of deep venous thrombosis. Jacoby Jj MD Objective Remarks GENERAL: SKIN: Warm and dry. HEAD: Normocephalic. EYES: No scleral icterus. No injection or drainage. NECK: Supple, trachea midline. No JVD or lymphadenopathy. CARDIOVASCULAR: Regular rate and rhythm without murmurs, gallops, or rubs. RESPIRATORY: Breath sounds equal bilaterally. No accessory muscle use. GASTROINTESTINAL: Abdomen soft, non-tender, nondistended. MUSCULOSKELETAL: No cyanosis, or edema. BACK: Nontender without obvious deformity. No CVA tenderness. Procedures none A/P Problem List: (1) End stage kidney disease ICD Code: N18.6 - End stage renal disease Status: Chronic (2) Symptomatic anemia ICD Code: D64.9 - Anemia, unspecified Status: Acute Assessment and Plan Ms. Foley is a 56-year-old female with past medical history of end-stage renal disease on hemodialysis, diabetes mellitus, hypertension, coronary artery disease, hypothyroidism, sleep apnea, morbid obesity and history of multiple abdominal wounds - presented to the ED on 06/19/2017 due to profuse bleeding from her wound site. She is on Coumadin for DVT of her right lower extremity from 1 year ago. On arrival, she was hypotensive with a systolic blood pressure 70s to 80s and her laboratory data was significant for a hemoglobin 5.9, hematocrit 17.5, and hyperkalemia with a potassium level of 6.7. Also, she was coagulopathic with an INR of 6.3 and PTT 101.1. A chest x-ray in the ED showed opacity in the right mid lung zone which could represent airspace consolidation or fluid within the fissure. In the ED, she was given 500 mL bolus of normal saline and she was treated for hyperkalemia with 5 units IV insulin, D50 amp of sodium bicarbonate and albuterol sulfate 10 mg inhaler x1. Nephrology service was notified. She received transfusion 2u PRBC and K centra. Hgb improved to 8.1 and INR improved to 1.7. //Respiratory insufficiency. Resolved //Hypotension- Resolved // Anemia secondary to acute blood loss from wound bleeding. Improved after blood transfusion. Continue to monitor // Coagulopathy secondary to Coumadin toxicity status post K Centra,. Resolved. Hx DVT repeat US w/o DVT but hi risk for recurrent DVT secondary to history and bedridden status. Will restart Coumadin, patient has been counseled to avoid green leafy vegetable. Consult PT = INR 2.0. Restart Coumadin. Discussed with pharmacy. Appreciate assistance. //Hyperkalemia. Corrected received IV insulin, D50, bicarbonate, and albuterol inhaler s/p emergent HD // End-stage renal disease. HD per renal- Dr. Jimenez // Hypothyroidism. Stable //History of sleep apnea and morbid obesity. Needs weight loss //History of hypertension and DM. Stable //Left lower abdominal wound growing ESBL //GNR UTI History of ESBL Klebsiella and MDR Pseudomonas in the urine in 2017. Ct Zosyn. Replace Ruiz and repeat UA Hx C diff consult ID = Wound culture reviewed. Urine culture still pending. Continue antibiotics as per infectious disease. = 06/23. Urine culture still pending. Replace Ruiz. Discussed with nursing and patient. Discussed with infectious disease. May need home IV antibiotics which will need to be arranged by ID. Discharge Planning PT recommends home health Patient will likely need IV antibiotics at home. Pending urine culture Pending final ID recommendations. Miranda Ochoa DO Jun 24, 2017 08:38
[2017-06-24] MEDS ORDERED: AMOXICILLIN/CLAVULANATE K 500 MG TAB PO SCH (09:00)
--- NOTE | 2017-06-24 09:22 | HHI.NPPN ---
Subjective Complaints: Obesity General Problems: Anemia Renal Failure: End Stage Renal Disease History of Present Illness This is a 56-year-old female with past medical history of diabetes mellitus, ischemic heart disease, hypertension, hyperlipidemia, anxiety disorder, hypothyroidism, morbid obesity, and history of multiple abdomen and thigh wounds. Patient presented to ED with bleeding from wound site. She had a wound care appt scheduled for today. It was found that patients INR is elevated at 6.3.The patient has history of end-stage renal disease on hemodialysis Friday, and Friday but she has been missing her dialysis. The last time she was dialyzed was Friday. Her potassium is elevated at 6.7 and received treatment in ED. She has been missing dialysis because of the pain and having to be left in wheelchair until son comes home from work. Patient will be transferred to the unit and bedside dialysis will be done. Additional Remarks No SOB or edema noted. Dialysis done yesterday. (Betty Rose) Review of Systems Respiratory Respiratory Remarks Denies SOB (Betty Rose) Cardiovascular Cardiac Remarks Denies CP (Betty Rose) Objective Data Data Vital Signs Date Time Temp Pulse Resp B/P (MAP) Pulse Ox O2 Delivery O2 Flow Rate FiO2 06/24/17 04:00 97.2 61 18 134/76 (95) 95 06/24/17 00:00 98.4 80 18 98/68 (78) 99 06/23/17 20:00 97.9 75 18 150/63 (92) 97 06/23/17 16:00 98.9 73 19 112/64 (80) 97 06/23/17 12:00 98.3 69 20 130/68 (88) 97 06/23/17 09:52 99 21 (Betty Rose) -: 06/21/17 0402 06/21/17 0402 Tubes & Lines: Ruiz (Betty Rose) Physical Exam General Appearance: No Acute Distress, Comfortable, Obese (Betty Rose) Throat Throat Exam: Oral Mucosa [place] & Moist (Betty Rose) Pulmonary Resp Exam: Breath Sounds Equal, No Distress (Betty Rose) Cardiology CV Exam: Regular, Normal Sinus Rhythm (Betty Rose) Gastrointestinal/Abdomen GI Exam: Soft, Non-Tender GI Remarks large (Betty Rose) Genitourinary Exam: Flank Non-Tender (eBtty Rose) Integumentary Skin Exam: Clear, Warm Skin Remarks Multiple abdominal wounds, upper right thigh (Betty Rose) Extremeties Extremities Exam: No Edema (Betty Rose) Assessment/Plan Problem List: (1) End stage kidney disease ICD Codes: N18.6 - End stage renal disease Status: Chronic Plan: End stage renal disease with hemodialysis on Friday, Friday, and Friday Has been non complaint with dialysis with dialysis treatments. Emergent dialysis on admission patient hyperkalemic at 6.8 Plan Hemodialysis yesterday with UF of 3 liters Epogen with dialysis Hyperkalemia resolved Continue to monitor fluid and electrolytes. Discharge planning underway (2) Symptomatic anemia ICD Codes: D64.9 - Anemia, unspecified Status: Acute Plan: Improved after transfusion (3) Hypertension, benign ICD Codes: I10 - Benign hypertension Status: Chronic Plan: controlled (4) Hyperkalemia ICD Codes: E87.5 - Hyperkalemia Status: Acute Plan: resolved (5) Wounds, multiple ICD Codes: T07 - Unspecified multiple injuries Status: Acute Plan: continue wound care. (Betty Rose) Problem List: (1) End stage kidney disease ICD Codes: N18.6 - End stage renal disease Status: Chronic Plan: End stage renal disease with hemodialysis on Friday, Friday, and Friday Has been non complaint with dialysis with dialysis treatments. Emergent dialysis on admission patient hyperkalemic at 6.8 Plan Hemodialysis yesterday with UF of 3 liters Epogen with dialysis Hyperkalemia resolved Continue to monitor fluid and electrolytes. Discharge planning underway. Patient seen and examined, agree with above. For discharge, told to be compliant with out patient HD. (2) Symptomatic anemia ICD Codes: D64.9 - Anemia, unspecified Status: Acute Plan: Improved after transfusion (3) Hypertension, benign ICD Codes: I10 - Benign hypertension Status: Chronic Plan: controlled (4) Hyperkalemia ICD Codes: E87.5 - Hyperkalemia Status: Acute Plan: resolved (5) Wounds, multiple ICD Codes: T07 - Unspecified multiple injuries Status: Acute Plan: continue wound care. (Valentin Jimenez MD) Betty Rose Jun 24, 2017 09:22 Valentin Jimenez MD Jun 26, 2017 09:47
[2017-06-24] MEDS: GABAPENTIN 100 MG CAP PO SCH (10:06)
[2017-06-24] MEDS: QUEtiapine FUMARATE 25 MG TAB PO SCH ×2 (10:06→12:52)
[2017-06-24] MEDS: CALCIUM CARBONATE 500 MG CHEWABLE TAB CHEW SCH (10:06)
[2017-06-24] MEDS: OXYBUTYNIN CHLORIDE 5 MG TAB PO SCH (10:07)
[2017-06-24] MEDS: PARoxetine HCL 20 MG TAB PO SCH (10:07)
--- NOTE | 2017-06-24 10:30 | HHI.FF ---
Infusion Therapy Location of Infusion Therapy: Dialysis Center Patient Information Patient Weight 104.5 kg Diagnosis: Coded Allergies: clarithromycin (Verified Allergy, Severe, swelling of face, 06/19/17) ferrous fumarate (Verified Adverse Reaction, Severe, Constipation, 06/19/17 ) ferrous sulfate (Verified Adverse Reaction, Severe, Constipation, 06/19/17) ferumoxytol (Verified Adverse Reaction, Severe, Constipation, 06/19/17) iron (Verified Adverse Reaction, Severe, Constipation, 06/19/17) morphine (Verified Adverse Reaction, Severe, 06/19/17) renal insufficiency. multivitamin infusion, adult no.4 with vitamin K (Verified Adverse Reaction, Severe, Constipation, 06/19/17) multivitamin with iron,other minerals (Verified Adverse Reaction, Severe, Constipation, 06/19/17) *MDRO Multi-Drug Resistant Organism (Verified Adverse Reaction, Unknown, VRE, MRSA, MDR-Pseudomonas, 06/19/17) VRE (abdominal wound) - 07/09/16 MDR-Pseudomonas (abdominal wound) - 07/09/16 MRSA (abdomen wound) - 08/28/16 Administer Medication q 48 hours w/Hemodialysis ,,Sat Avycaz 0.94 gm IV with each each HD Start Treatment: Jun 24, 2017 Stop Treatment: July 08, 2017 Administer Medication Vancomycin 1 gram IV q 48 hours w/Hemodialysis ,,Sat Start Treatment: Jun 24, 2017 Stop Treatment: July 08, 2017 Additional Information Venous access: Other (HD access) Additional Instructions [x] Peripheral flush and dressing changes per protocol [x] Implanted port and central production line technician: * Implanted port: 10 ml Normal Saline followed by 5 ml Heparin 100 units/ml Heparin flush after each use and monthly to maintain. [] May leave port accessed during therapy. [] May leave peripheral site accessed for duration of therapy. [x] If patient has SOB or respiratory distress, check oxygen saturation. If less than 90% or clinical signs of respiratory distress, administer oxygen at 2 L/min. via nasal cannula and notify physician. [x] Anaphylaxis/Reaction orders: * Stop infusion. * Keep IV line open with saline flush. * Notify physician. * Monitor vital signs every 15 minutes until symptoms resolve. * Check Oxygen saturation; Oxygen at 2 L/min. via nasal cannula if less than 90% or clinical signs of respiratory distress. * Administer diphenhydramine (Benadryl) 25 mg IV STAT, (unless patient has received as pre-med). May repeat once, if necessary. * Solu-Cortef 250 mg IVP over 30-60 seconds, use 100 mg vials for each dissolution. * Epinephrine (1mg/1 ml) 0.3 mg subcutaneously or IVP now with any signs of respiratory distress. * Check with physician for new additional pre-med orders if patient is re- challenged or re-treated. [x] May remove PICC line when treatment complete, after confirming with Physician. [x] If the patient is admitted to the hospital, the ED, or transferred via [facility] , complete transfer form including medication reconciliation order sheet. Laboratory Tests Weekly Labs: CBC w/diff Bel Adorno MD Jun 24, 2017 10:30
[2017-06-24 12:00] VITALS: BP 118/72; PULSE 79; RESP 21; TEMP 98.3; O2SAT 100
--- NOTE | 2017-06-24 13:27 | HHI.FF ---
Face to Face Verification Diagnosis: (1) C. difficile diarrhea (2) End stage kidney disease Physical Therapy Order: Evaluate and Treat, Improve ambulation, Strength and gait training Home Health Nursing Order: Medical education Signs/symptoms of disease process Nursing assessment with vital signs I have seen patient Ana María Foley on 06/24/17. My clinical findings support the need for the requested home health care services because: Ltd mobility - disease progression Deconditioned w/ increased weakness Limited ability to care for self Need for psychosocial assistance High risk of falls Infection w/ risk of complications I certify that my clinical findings support that this patient is homebound because: Unsteady gait/balance Unsafe to leave home unassisted Need for psychosocial assistance Unable to use public transportation Miranda Ochoa DO Jun 24, 2017 1:27 pm
[2017-06-24] MEDS: ACETAMINOPHEN/HYDROcodone 325 MG/10 MG TAB PO PRN (14:41)
[2017-06-24] MEDS: WARFARIN SOD 1 MG TAB PO SCH (14:42)
[2017-06-24] MEDS ORDERED: WARFARIN SOD 1 MG TAB PO ONE (16:00)
--- NOTE | 2017-06-25 23:19 | HHI.DS ---
Discharge Summary Admission Date Jun 19, 2017 at 15:38 Discharge Date: Jun 24, 2017 Admitting Diagnosis SYMPTOMATIC ANEMIA, HYPOTENSION, BLEEDING CONTROLLED WITH GELFOAM, (1) End stage kidney disease ICD Code: N18.6 - End stage renal disease Status: Chronic (2) Symptomatic anemia ICD Code: D64.9 - Anemia, unspecified Status: Acute Procedures none Brief History - From Admission The patient is a 56-year-old female with past medical history of end-stage renal disease on hemodialysis, diabetes mellitus, hypertension, coronary artery disease, hypothyroidism, sleep apnea, morbid obesity and history of multiple abdominal wounds. She presented to ED with profuse bleeding from her wound site. She was scheduled to see a wound physician; however, when she started bleeding from her wound she elected to come to the ED for further evaluation and management. She is on Coumadin for DVT of her right lower extremity from 1 year ago. She denies any symptoms of chest pain, shortness of breath, orthopnea, PND. In addition, she denies any history of nausea, vomiting, abdominal pain, hematemesis, hematochezia or hemoptysis. On arrival, she was hypotensive with a systolic blood pressure 70s to 80s and her laboratory data was significant for a hemoglobin 5.9, hematocrit 17.5, and hyperkalemia with a potassium level of 6.7. Also, she was coagulopathic with an INR of 6.3 and PTT 101.1. A chest x-ray in the ED showed opacity in the right mid lung zone which could represent airspace consolidation or fluid within the fissure. No history of fever or leukocytosis. In the ED, she was given 500 mL bolus of normal saline and she was treated for hyperkalemia with 5 units IV insulin, D50 amp of sodium bicarbonate and albuterol sulfate 10 mg inhaler x1. Nephrology service was notified and the patient about to undergo hemodialysis. She is on 2 liters oxygen with a saturation of 100%. She denies any chest pain or shortness of breath. CBC/BMP: 06/21/17 0402 06/21/17 0402 Significant Findings Laboratory Tests Test 06/23/17 08:00 06/24/17 06:49 Prothrombin Time 15.6 SEC (9.8-11.6) 13.4 SEC (9.8-11.6) Imaging Last Impressions Chest X-Ray 06/19/17 1425 Signed Impressions: Service Date/Time: June 14:44 - CONCLUSION: Opacity in the right midlung zone could represent airspace consolidation or fluid within the fissure. Moy Lechuga MD Lower Extremity Ultrasound 06/19/17 0000 Signed Impressions: Service Date/Time: June 18:06 - CONCLUSION: Suboptimal examination with no evidence of deep venous thrombosis. Jacoby Jj MD PE at Discharge GENERAL: SKIN: Warm and dry. HEAD: Normocephalic. EYES: No scleral icterus. No injection or drainage. NECK: Supple, trachea midline. No JVD or lymphadenopathy. CARDIOVASCULAR: Regular rate and rhythm without murmurs, gallops, or rubs. RESPIRATORY: Breath sounds equal bilaterally. No accessory muscle use. GASTROINTESTINAL: Abdomen soft, non-tender, nondistended. MUSCULOSKELETAL: No cyanosis, or edema. BACK: Nontender without obvious deformity. No CVA tenderness. Pt update on day of discharge Patient is currently doing well. No fever, chills. Hospital Course Ms. Foley is a 56-year-old female with past medical history of end-stage renal disease on hemodialysis, diabetes mellitus, hypertension, coronary artery disease, hypothyroidism, sleep apnea, morbid obesity and history of multiple abdominal wounds - presented to the ED on 06/19/2017 due to profuse bleeding from her wound site. She is on Coumadin for DVT of her right lower extremity from 1 year ago. On arrival, she was hypotensive with a systolic blood pressure 70s to 80s and her laboratory data was significant for a hemoglobin 5.9, hematocrit 17.5, and hyperkalemia with a potassium level of 6.7. Also, she was coagulopathic with an INR of 6.3 and PTT 101.1. A chest x-ray in the ED showed opacity in the right mid lung zone which could represent airspace consolidation or fluid within the fissure. In the ED, she was given 500 mL bolus of normal saline and she was treated for hyperkalemia with 5 units IV insulin, D50 amp of sodium bicarbonate and albuterol sulfate 10 mg inhaler x1. Nephrology service was notified. She received transfusion 2u PRBC and K centra. Hgb improved to 8.1 and INR improved to 1.7. Respiratory insufficiency. Resolved Hypotension- Resolved Anemia secondary to acute blood loss from wound bleeding. Improved after blood transfusion. Continue to monitor Coagulopathy secondary to Coumadin toxicity status post K Centra,. Resolved. Hx DVT repeat US w/o DVT but hi risk for recurrent DVT secondary to history and bedridden status. re-started Coumadin, patient has been counseled to avoid green leafy vegetable. Consult PT Hyperkalemia. Corrected received IV insulin, D50, bicarbonate, and albuterol inhaler s/p emergent HD End-stage renal disease. HD per renal- Dr. Jimenez Hypothyroidism. Stable History of sleep apnea and morbid obesity. Needs weight loss History of hypertension and DM. Stable Left lower abdominal wound growing ESBL GNR UTI History of ESBL Klebsiella and MDR Pseudomonas in the urine in 2017. IV abx to be continued per ID post hospitalization abx to be given during dialysis. Pt Condition on Discharge: Good Discharge Disposition: Disch w/ Home Health Serv Discharge Time: > 30 minutes Discharge Instructions DIET: Follow Instructions for: Renal Failure Diet Activities you can perform: Regular-No Restrictions Follow up Referrals: Nephrology - 1 Week PCP Follow-up - 1 Week Wound Care Clinic - 1 Week New Medications: Hydrocodone/Acetaminophen (Hydrocodone-Acetamin 10-325 mg) 10 Mg-325 Mg Tablet 1 TAB PO Q6H PRN for pain 6-10, #28 MG Continued Medications: Alprazolam (Xanax) 0.25 Mg Tab 0.25 MG PO Q6H PRN for ANXIETY, TAB 0 Refills Atorvastatin (Atorvastatin) 40 Mg Tab 40 MG PO HS for Cholesterol Management, #30 TAB 0 Refills Collagenase (Santyl) 250 Unit/Gram Oin 1 APPLIC TOPICAL DAILY for wound care for 30 Days, TUBE Gabapentin (Gabapentin) 100 Mg Cap 100 MG PO BID, #60 CAP 0 Refills Levothyroxine (Levothyroxine) 150 Mcg Tab 150 MCG PO DAILY for Thyroid, TAB 0 Refills Ondansetron Odt (Zofran Odt) 4 Mg Tab 4 MG SL Q6HR PRN for Nausea/Vomiting, #30 TAB 0 Refills Oxybutynin (Ditropan) 5 Mg Tab 5 MG PO Q12HR for Urinary Symptom Managemen, TAB 0 Refills Paroxetine (Paroxetine) 40 Mg Tab 40 MG PO DAILY, TAB 0 Refills Quetiapine (Quetiapine) 25 Mg Tab 25 MG PO TID, TAB 0 Refills Tizanidine (Tizanidine) 4 Mg Cap 4 MG PO TID for Muscle Spasm, CAP 0 Refills Warfarin (Coumadin) 1 Mg Tab 1 MG PO DAILY@1600 for DVT hx for 30 Days, TAB [Calcium Carbonate Chew] () 500 MG CHEW 500 MG CHEW Q12HR for 30 Days, #60 TAB 1 Refill Miranda Ochoa DO Jun 25, 2017 23:19
--- NOTE | 2017-07-01 11:08 | PQ ---
Physician Query Response Document PATIENT: ISAAC PALACIOS : 1960 ADMIT DATE: 06/19/2017 3:38 PM DISCH DATE: 06/24/2017 4:18 PM RESPONDING PROVIDER #: [email or web address] QUERY TEXT: Cause and Effect Relationship Please clarify in documentation the relationship, if any, between: Chronic Mujica catheter and UTI. Such as: -- Conditions are due to or associated -- Unrelated to each other -- Other, please specify If you have any additional questions/comments and/or concerns, please do not hesitate to reach out to the CDI/Coding Hotline, Ext. [phone]. The patient's Clinical Indicators include: ID Consult 06/22/17 - History of Present Illness: Pt has chronic mujica and sp colostoimy (both 2/2 he r chronic wound) . She presented with low grade fever up to 100.3 x 1 but no leukocytosis, started o n zosyn. Markedly abnormal UA with oyyuria, grew GNB from urine and wound clx. Had ESBL + Kleb in urine clx from [address] Valadez 06/21/17: 10. GNR UTI History of ESBL Klebsiella and MDR Pseudomonas in the u rine in 04/2017. Ct Zosyn. Replace Mujica and repeat UA Hx C diff consult ID ID Progress Note 06/23/17: 06/21/17 19:30 Urine Catheterized Urine Urine Culture - Final Klebsiella Pneumoniae Esbl Pos Multi-Drug Resistant Pseudomonas Aeruginosa Complete Discharge Summary - Hospital Course: GNR UTI History of ESBL Klebsiella and MDR Pseudomonas in the u rine in 04/2017. IV abx to be continued per ID post hospitalization abx to be given during dialysis. Query created by: Viri Escobar on 06/28/2017 1:21 PM RESPONSE TEXT: ESBL positive Urinary tract infection likely due to chronic Mujica catheter. Electronically signed by: Hussein Ochoa DO 07/01/2017 11:04 AM
== END 2017-06-24 16:18 | disposition home health service (06) | DRG 811 ==
LOC: NEPD 13:58 → NEDA 15:38 → HIMW 16:25 → N05B 06-21 17:34
PROVIDERS: ADMIT Hospitalist; ATTEND Hospitalist
PROC: 3E00XGC Introduction of Other Therapeutic Substance into Skin and Mucous Membranes, External Approach (ICD-10-PCS; principal; 2017-06-19)
PROC: 2W43X5Z Packing of Abdominal Wall using Packing Material (ICD-10-PCS; 2017-06-19)
PROC: 30253N1 (ICD-10-PCS; 2017-06-19)
PROC: 30283B1 Transfusion of Nonautologous 4-Factor Prothrombin Complex Concentrate into Vein, Percutaneous Approach (ICD-10-PCS; 2017-06-19)
PROC: 5A1D70Z Performance of Urinary Filtration, Intermittent, Less than 6 Hours Per Day (ICD-10-PCS; 2017-06-19)
DX: D62 Acute posthemorrhagic anemia (principal); N18.6 End stage renal disease; I13.2 Hypertensive heart and chronic kidney disease with heart failure and with stage 5 chronic kidney disease, or end stage renal disease; L89.154 Pressure ulcer of sacral region, stage 4; D68.9 Coagulation defect, unspecified; E11.22 Type 2 diabetes mellitus with diabetic chronic kidney disease; I95.9 Hypotension, unspecified; Z68.41 Body mass index [BMI] 40.0-44.9, adult; T83.511A Infection and inflammatory reaction due to indwelling urethral catheter, initial encounter; N39.0 Urinary tract infection, site not specified; I50.9 Heart failure, unspecified; Z16.12 Extended spectrum beta lactamase (ESBL) resistance; B96.1 Klebsiella pneumoniae [K. pneumoniae] as the cause of diseases classified elsewhere; T45.511A Poisoning by anticoagulants, accidental (unintentional), initial encounter; E66.01 Morbid (severe) obesity due to excess calories; L89.899 Pressure ulcer of other site, unspecified stage; E87.5 Hyperkalemia; R58 Hemorrhage, not elsewhere classified; E03.9 Hypothyroidism, unspecified; E78.5 Hyperlipidemia, unspecified; G47.30 Sleep apnea, unspecified; R06.89 Other abnormalities of breathing; Z98.84 Bariatric surgery status; Z99.2 Dependence on renal dialysis; Z91.15 Patient's noncompliance with renal dialysis; I25.10 Atherosclerotic heart disease of native coronary artery without angina pectoris; Z95.1 Presence of aortocoronary bypass graft; Z79.01 Long term (current) use of anticoagulants; Z93.3 Colostomy status; M19.90 Unspecified osteoarthritis, unspecified site; M48.00 Spinal stenosis, site unspecified; Z86.718 Personal history of other venous thrombosis and embolism; Y84.6 Urinary catheterization as the cause of abnormal reaction of the patient, or of later complication, without mention of misadventure at the time of the procedure
CPT/HCPCS: 36430; 71045; 76937; 80048; 81001; 82948; 84100; 85014; 85018; 85025; 85610; 85730; 86850; 86900; 86901; 86920; 87015; 87070; 87077; 87086; 87116; 87186; 87205; 87206; 87641; 90935; 93005; 93970; 94640; 94664; 96360; 96374; 96375; C9132; J0610; J0714; J1335; J1580; J1644; J1815; J2543; J7040; J7611; P9016; Q4081

== ENCOUNTER 2017-07-08 12:18 | Emergency (ER) | payer OTHER ==
[~2017-07-08] VITALS: Ht 157.5 cm; Wt 110.0 kg
[~2017-07-08 12:18] MED LIST changes: +HYDR-3583 PO; -OXYC-395 PO
[2017-07-08 12:39] VITALS: BP 147/77; PULSE 100; RESP 24; TEMP 98.5; O2SAT 100
--- NOTE | 2017-07-08 12:53 | PD ---
HPI Chief Complaint: Skin Problem Time Seen by Provider: 12:38 Travel History International Travel<30 days: No Contact w/Intl Traveler<30days: No History of Present Illness HPI 56-year-old female with a complicated medical history presents emergency department evaluation of a "grapefruit sized mass" on her right abdominal skin fold. Patient states that this appeared two weeks ago. Patient states that this has gradually increased in size and her home Health care nurse noticed this mass Friday. Patient states that her nurse was concerned and decided to call for [facility] for transfer to the hospital for evaluation. Patient states that she was seen at [facility] 2 days ago for the same issue. States that they performed an ultrasound of the area and said that "it was not fluid-filled" and sent her home. Denies fevers but says she has been cold. She has an indwelling Ruiz catheter for 8-10 months because of the inability to ambulate and having a chronic sacral wound. Says that she was told that she is unable to get the sacral wound wet which is the reason for the indwelling Ruiz catheter. Ruiz catheter is due to be changed. In addition, patient has a colostomy bag for the same reason. Patient is on Coumadin for her inactive lifestyle. Past Medical Hx of end-stage renal disease on hemodialysis MWF, chronic abdominal wounds, diabetes mellitus, status post colostomy bag, indwelling Ruiz catheter. She was due for dialysis yesterday however, she was unable to have this performed. Says she recently had revision of her left fistula and currently has a cath in place. says that she is hoping to get dialysis here in the hospital. She says that she normally receives her vancomycin during dialysis. She would also like to be admitted for her wounds. Says that her heart rate varies but usually rests in the low 100s. Says her blood pressure is normally low as well. PFSH Past Medical History Hx Anticoagulant Therapy: Yes Arthritis: Yes Asthma: No Autoimmune Disease: No Blood Disorders: No Anxiety: Yes Depression: No Heart Rhythm Problems: No Cancer: No Cardiac Catheterization: Yes Cardiovascular Problems: Yes (stents) High Cholesterol: Yes Chemotherapy: No Chest Pain: Yes Congestive Heart Failure: Yes COPD: No Cerebrovascular Accident: No Diabetes: Yes Dialysis: Yes (M,W,F) Diminished Hearing: No Endocrine: Yes Gastrointestinal Disorders: Yes (LAP BAND stopped working few yrs ago) GERD: No Genitourinary: Yes Hepatitis: No Hiatal Hernia: No Heparin Induced Thrombocytopen: No Hypertension: Yes Immune Disorder: No Implanted Vascular Access Dvce: Yes (FISTULA, VASCATH) Kidney Stones: No Musculoskeletal: Yes Neurologic: No Psychiatric: Yes Reproductive: Yes Respiratory: Yes Immunizations Current: Yes Migraines: No Radiation Therapy: No Renal Failure: Yes Seizures: No Sickle Cell Disease: No Sleep Apnea: Yes Thyroid Disease: Yes Triglycerides - High: Yes Ulcer: No Menopausal: Yes : 1 Para: 1 Past Surgical History Abdominal Surgery: Yes (ABD WOUND for friction) AICD: No Arteriovenous Shunt: Yes (AV FISTULA LEFT , VAS CATH RIGHT CHEST) Body Medical Devices: av fistula/ heart stents Cardiac Surgery: No Section: Yes (X 1) Cholecystectomy: Yes (1996) Coronary Artery Bypass Graft: Yes Coronary Stent: Yes (x1 June 2012) Ear Surgery: No Endocrine Surgery: No Eye Surgery: No Genitourinary Surgery: No Insulin Pump: No Joint Replacement: No Neurologic Surgery: No Oral Surgery: Yes (T&A) Pacemaker: No Thoracic Surgery: No Tonsillectomy: Yes Other Surgery: Yes (LAP BAND, VAS CATH) Social History Alcohol Use: No Tobacco Use: No Substance Use: No Allergies-Medications (Allergen,Severity, Reaction): Coded Allergies: clarithromycin (Verified Allergy, Severe, swelling of face, 07/08/17) methadone (Verified Allergy, Unknown, HALLUCINATION , 07/08/17) ferrous fumarate (Verified Adverse Reaction, Severe, Constipation, 07/08/17) ferrous sulfate (Verified Adverse Reaction, Severe, Constipation, 07/08/17) ferumoxytol (Verified Adverse Reaction, Severe, Constipation, 07/08/17) iron (Verified Adverse Reaction, Severe, Constipation, 07/08/17) morphine (Verified Adverse Reaction, Severe, 07/08/17) renal insufficiency. multivitamin infusion, adult no.4 with vitamin K (Verified Adverse Reaction, Severe, Constipation, 07/08/17) multivitamin with iron,other minerals (Verified Adverse Reaction, Severe, Constipation, 07/08/17) *MDRO Multi-Drug Resistant Organism (Verified Adverse Reaction, Unknown, VRE, MRSA, MDR-Pseudomonas, 07/08/17) VRE (abdominal wound) - 07/09/16 MDR-Pseudomonas (abdominal wound) - 07/09/16 MRSA (abdomen wound) - 08/28/16 Reported Meds & Prescriptions Reported Meds & Active Scripts Active Hydrocodone-Acetamin 10-325 mg (Hydrocodone/Acetaminophen) 10 Mg-325 Mg Tablet 1 Tab PO Q6H PRN Reported Vancomycin Inj (Vancomycin HCl) Unknown Strength Inj Unknown Dose IV DURING DIALYSIS Voltaren (Diclofenac Sodium) 1 % Gel..gram. 1 Applic TOPICAL DAILY PRN Lidocaine Topical (Lidocaine HCl) 2 % Jel 1 Applic TOPICAL DAILY PRN Novolog Inj (Insulin Aspart) 1,000 Unit/10 Ml Vial 0 SQ DIRECTED Sliding Scale as directed. Tums (Calcium Carbonate (Antacid)) 500 Mg Chew 500 Mg PO DAILY Doxycycline (Doxycycline (Monohydrate)) 100 Mg Cap 100 Mg PO BID Coumadin (Warfarin) 4 Mg Tab 4 Mg PO DAILY Ativan (Lorazepam) 0.5 Mg Tab 0.5 Mg PO BID Quetiapine (Quetiapine Fumarate) 25 Mg Tab 25 Mg PO BID Ditropan (Oxybutynin Chloride) 5 Mg Tab 5 Mg PO Q12HR Tizanidine (Tizanidine HCl) 4 Mg Cap 4 Mg PO TID PRN Levothyroxine (Levothyroxine Sodium) 150 Mcg Tab 150 Mcg PO DAILY Atorvastatin (Atorvastatin Calcium) 40 Mg Tab 40 Mg PO HS Gabapentin 100 Mg Cap 100 Mg PO BID Review of Systems Except as stated in HPI: all other systems reviewed are Neg Physical Exam Narrative GENERAL: WD in NAD,morbidly obese. Significant wasting of the muscles SKIN: Focused skin assessment warm/dry. Diffuse redundant skin particularly in the abdomen. Right lower abdominal skin fold 7 cm round area of mild erythema and edema. Tender to palpation. It appears this is an extension of her sacral wound. No obvious draining directly over the skin however, upon lifting the tissue it appears that the anterior aspect of the skin is draining a white and clear exudate. Sacrum-7 cm round decubitus ulcer stage III, clear discharge. Mild erythema however appears to be granulating well. Bilateral lower extremities-brown scaling covering most of the anterior aspect of the shins, chronic the patient HEAD: Atraumatic. Normocephalic. EYES: Pupils equal and round. No scleral icterus. No injection or drainage. ENT: No nasal bleeding or discharge. Mucous membranes pink and moist. NECK: Trachea midline. No JVD. CARDIOVASCULAR: Regular rate and rhythm. No murmur appreciated. RESPIRATORY: No accessory muscle use. Clear to auscultation. Breath sounds equal bilaterally. GASTROINTESTINAL: Abdomen soft, non-tender, nondistended. Colostomy in place. Note that the abdominal wall is mildly tender over the areas of edematous and erythematous skin folds but no underlying abdominal tenderness to palpation. MUSCULOSKELETAL: No obvious deformities. No clubbing. No cyanosis. No edema. NEUROLOGICAL: Awake and alert. No obvious cranial nerve deficits. Motor grossly within normal limits. Normal speech. PSYCHIATRIC: Appropriate mood and affect; insight and judgment normal. Data Data Last Documented VS Vital Signs Date Time Temp Pulse Resp B/P (MAP) Pulse Ox O2 Delivery O2 Flow Rate FiO2 07/08/17 12:39 98.5 100 24 147/77 (100) 100 Orders Orders Complete Blood Count With Diff (07/08/17 12:53) Comprehensive Metabolic Panel (07/08/17 12:53) Lipase (07/08/17 12:53) Prothrombin Time / Inr (Pt) (07/08/17 12:53) Act Partial Throm Time (Ptt) (07/08/17 12:53) Iv Access Insert/Monitor (07/08/17 12:53) Ecg Monitoring (07/08/17 12:53) Oximetry (07/08/17 12:53) Sepsis Workup Initiated (07/08/17 ) Electrocardiogram (07/08/17 12:53) Lactic Acid Sepsis Protocol (07/08/17 12:53) Magnesium (Mg) (07/08/17 12:53) Urinalysis - C+S If Indicated (07/08/17 12:53) Blood Culture (07/08/17 12:53) Chest, Single Ap (07/08/17 12:53) Blood Glucose (07/08/17 12:53) Oxygen Administration (07/08/17 12:53) Urine Culture (07/08/17 13:34) Vancomycin Inj (Vancomycin Inj) (07/08/17 15:45) Sodium Polysty Sulfate Liq (Kayexalate L (07/08/17 15:45) Acetamin-Hydrocod 325-10 Mg ([place] 10-32 (07/08/17 16:30) Ed Discharge Order (07/08/17 16:24) Labs Laboratory Tests Test 07/08/17 13:22 07/08/17 13:34 White Blood Count 8.7 TH/MM3 Red Blood Count 2.95 MIL/MM3 Hemoglobin 8.0 GM/DL Hematocrit 24.9 % Mean Corpuscular Volume 84.3 FL Mean Corpuscular Hemoglobin 27.2 PG Mean Corpuscular Hemoglobin Concent 32.3 % Red Cell Distribution Width 17.8 % Platelet Count 452 TH/MM3 Mean Platelet Volume 7.5 FL Neutrophils (%) (Auto) 73.4 % Lymphocytes (%) (Auto) 18.2 % Monocytes (%) (Auto) 3.6 % Eosinophils (%) (Auto) 3.9 % Basophils (%) (Auto) 0.9 % Neutrophils # (Auto) 6.4 TH/MM3 Lymphocytes # (Auto) 1.6 TH/MM3 Monocytes # (Auto) 0.3 TH/MM3 Eosinophils # (Auto) 0.3 TH/MM3 Basophils # (Auto) 0.1 TH/MM3 CBC Comment DIFF FINAL Differential Comment Prothrombin Time 14.6 SEC Prothromb Time International Ratio 1.4 RATIO Activated Partial Thromboplast Time 29.6 SEC Blood Urea Nitrogen 76 MG/DL Creatinine 5.44 MG/DL Random Glucose 165 MG/DL Total Protein 6.9 GM/DL Albumin 2.1 GM/DL Calcium Level 9.1 MG/DL Magnesium Level 1.6 MG/DL Alkaline Phosphatase 103 U/L Aspartate Amino Transf (AST/SGOT) 20 U/L Alanine Aminotransferase (ALT/SGPT) 13 U/L Total Bilirubin 0.2 MG/DL Sodium Level 137 MEQ/L Potassium Level 5.8 MEQ/L Chloride Level 107 MEQ/L Carbon Dioxide Level 18.4 MEQ/L Anion Gap 12 MEQ/L Estimat Glomerular Filtration Rate 8 ML/MIN Lactic Acid Level 1.6 mmol/L Lipase 46 U/L Urine Color LIGHT-YELLOW Urine Turbidity CLOUDY Urine pH 6.5 Urine Specific [place] 1.016 Urine Protein 100 mg/dL Urine Glucose (UA) 150 mg/dL Urine Ketones NEG mg/dL Urine Occult Blood MOD Urine Nitrite POS Urine Bilirubin NEG Urine Urobilinogen LESS THAN 2.0 MG/DL Urine Leukocyte Esterase LARGE Urine RBC 28 /hpf Urine WBC /hpf Urine WBC Clumps MANY Urine Bacteria MOD /hpf Microscopic Urinalysis Comment CATH-CULTURE IND MDM Medical Decision Making Medical Screen Exam Complete: Yes Emergency Medical Condition: Yes Differential Diagnosis Chronic abdominal ulcers, decubitus ulcers, noncompliance, chronic abdominal wounds, cellulitis, erysipelas, sepsis, Narrative Course 56-year-old female presents emergency department for evaluation of a mass on the right anterior lateral lower abdominal wall skin fold. Patient says that she has end-stage renal disease on hemodialysis Friday and received vancomycin for her chronic ulcers when she receives dialysis on these days. Says she missed her dialysis on Friday and Friday because her son was unable to assist her on the Katty lift and is hoping to get dialysis here in the hospital. In addition, she would like to be admitted for treatment and further evaluation of the cellulitis. Patient is pretty much unable to perform any ADLs on her own. She requires assistance to transfer to a wheelchair. Upon my exam, she is unable to completely lift her chest wall off of the back of the stretcher because of the diffuse weakness. This is normal for her however. It appears that patient has multiple chronic ulcers to include her mid sacrum and bilateral upper ASIS region. These appear chronic and tissue appears to be granulating well. White and clear discharge present. The area of concern is the right lower abdominal wall skin fold. This is tender to palpation does not appear to have any active exudate. The inferior lateral aspect of the cellulitis appears to be open and draining fluid. This appears to be an extension of her decubitus ulcers extending from the sacrum. Her direct sales representative is Dr. Jimenez. Her wound care is through [facility] care. I attempted to obtain records from [facility] however, patient was discharged this morning no records were readily available. Review the EMR: Patient had an infectious disease consult 06/22/17 while here in the hospital. Her last hospital visit with us was June 19, 2017 for a bleeding wound to the left lower quadrant. She was admitted from June 19 - June 24. She was here May 11, 2017 for abdominal wounds as well. She was in the hospital from April 19 - May 05 for nausea vomiting weakness. PMHx: End-stage renal disease on hemodialysis (chronically misses her HD) with left arm AV fistula, diabetes mellitus, congestive heart failure, hypertension, CAD with CABG, hypothyroidism, REESE, chronic, multiple abdominal wounds, history of DVT on Coumadin, status post cholecystectomy, gastric bypass LAP-BAND, history of spinal stenosis, history of C. difficile. EKG shows sinus arrhythmia at rate 98BPM. EKG similar to previous 06/19/2017. Labs and imaging studies ordered. Patient is tachycardic but afebrile. Still there is concern for sepsis. Sepsis protocol initiated although fluids administer cautiously for her history of congestive heart failure. Patient has been receiving vancomycin 1g IV MWF. She also takes doxycycline 100 mg twice a day for either urinary tract infection or cellulitis. She is unsure. Last Impressions Chest X-Ray 07/08/17 1253 Signed Impressions: Service Date/Time: Saturday, July 08, 2017 13:08 - CONCLUSION: No infiltrates seen. Len Benz MD Spoke with Dr. Jimenez, her direct sales representative, who recommended [id number] and Kayexalate PO. Follow up tomorrow with dialysis. My attending also discussed the findings with the patient. Patient will be discharged home. Continue home medications. Diagnosis Primary Impression: Open wound of abdomen Qualified Codes: S31.109D - Unspecified open wound of abdominal wall, unspecified quadrant without penetration into peritoneal cavity, subsequent encounter Additional Impressions: Non compliance w medication regimen End stage renal disease on dialysis Cellulitis Qualified Codes: L03.311 - Cellulitis of abdominal wall Subtherapeutic international normalized ratio (INR) Hyperkalemia Referrals: Dialysis Seam Steamer Additional Instructions: Take all medications as prescribed. Go to dialysis as scheduled to avoid complications. Disposition: 01 DISCHARGE HOME Condition: Stable Lisa Subramanian July 08, 2017 12:53
[2017-07-08] MEDS ORDERED: DOXY1CAP91 PO (13:10)
[2017-07-08] MEDS ORDERED: LORA-392 PO (13:10)
[2017-07-08] MEDS ORDERED: TUMS500C PO (13:10)
[2017-07-08] MEDS ORDERED: LIDO2GEL11 TOPICAL (13:10)
[2017-07-08] MEDS ORDERED: VOLT1GEL16 TOPICAL (13:10)
[2017-07-08] MEDS ORDERED: COUM4TAB PO (13:10)
[2017-07-08] MEDS ORDERED: VANC1000P IV (13:10)
[2017-07-08] MEDS ORDERED: NOVOLOGP2 SQ (13:10)
--- NOTE | 2017-07-08 13:32 | RADRPT ---
EXAM DATE/TIME: 07/08/2017 13:08 [place] COMPARISON: CHEST SINGLE AP, June 19, 2017, 14:44. INDICATIONS : Short of breath, multiple wounds on abdomen that won't heal MEDICAL HISTORY : Congestive heart failure. diabetic, dialysis SURGICAL HISTORY : Coronary artery stent. Cholecystectomy. lap band ENCOUNTER: Initial ACUITY: 1 day PAIN SCORE: Non-responsive. LOCATION: Bilateral chest FINDINGS: The lungs are symmetrically aerated and clear. No focal infiltrates seen. Interval resolution of ov al opacity in the right mid chest. Double lumen right central line tips project within the right atr ium. The heart is normal in size. CONCLUSION: No infiltrates seen. Len Benz MD on July 08, 2017 at 13:26 Board Certified Radiologist. This report was verified electronically.
[2017-07-08 13:37] LABS: AUTOMATED NEUTROPHIL # 6.4 TH/MM3 (1.8-7.7); BASOPHIL # 0.1 TH/MM3 (0-0.2); BASOPHIL % 0.9 % (0.0-2.0); EOSINOPHIL # 0.3 TH/MM3 (0-0.4); EOSINOPHIL % 3.9 % (0.0-4.0); HEMATOCRIT 24.9 % (35.0-46.0); LYMPH % 18.2 % (9.0-44.0); LYMPHOCYTE # 1.6 TH/MM3 (1.0-4.8); MEAN CELL VOLUME 84.3 FL (80.0-100.0); MEAN CORPUSCULAR HEMOGLOBIN 27.2 PG (27.0-34.0); MEAN CORPUSCULAR HGB CONC 32.3 % (32.0-36.0); MEAN PLATELET VOLUME 7.5 FL (7.0-11.0); MONO % 3.6 % (0.0-8.0); MONOCYTE # 0.3 TH/MM3 (0-0.9); NEUT % 73.4 % (16.0-70.0); PLATELET COUNT 452 TH/MM3 (150-450); RED BLOOD COUNT 2.95 MIL/MM3 (4.00-5.30); RED CELL DISTRIBUTION WIDTH 17.8 % (11.6-17.2); WHITE BLOOD COUNT 8.7 TH/MM3 (4.0-11.0)
[2017-07-08 13:50] LABS: INTERNATIONAL NORMALIZED RATIO 1.4 RATIO; PROTHROMBIN TIME - PATIENT 14.6 SEC (9.8-11.6)
[2017-07-08 13:59] LABS: ALKALINE PHOSPHATASE 103 U/L (45-117); ALT (GPT) 13 U/L (10-53); TOTAL BILIRUBIN ADULT 0.2 MG/DL (0.2-1.0); TOTAL PROTEIN 6.9 GM/DL (6.4-8.2)
[2017-07-08 13:59] LABS: BACTERIA, URINE MOD /hpf; BILIRUBIN, URINE NEG (NEG); BLOOD, URINE MOD (NEG); GLUCOSE,URINE 150 mg/dL (NEG); KETONE, URINE NEG (NEG); NITRITE,URINE POS (NEG); PH, URINE 6.5 (5.0-8.5); URINE COLOR LIGHT-YELLOW (YELLW/STRAW); URINE LEUKOCYTE ESTERASE LARGE (NEG); WHITE BLOOD CELL CLUMPS MANY
[2017-07-08 14:26] LABS: ALBUMIN 2.1 GM/DL (3.4-5.0); AST (GOT) 20 U/L (15-37); BICARBONATE 18.4 MEQ/L (21.0-32.0); BLOOD UREA NITROGEN 76 MG/DL (7-18); CALCIUM 9.1 MG/DL (8.5-10.1); CHLORIDE 107 MEQ/L (98-107); CREATININE 5.44 MG/DL (0.50-1.00); GLOMERULAR FILTRATION RATE 8 ML/MIN (>89); GLUCOSE,RANDOM 165 MG/DL (74-106); MAGNESIUM 1.6 MG/DL (1.5-2.5); SODIUM (NA) 137 MEQ/L (136-145)
[2017-07-08 15:00] VITALS: PULSE 108; RESP 22; O2SAT 97
[2017-07-08] MEDS ORDERED: VANCOMYCIN INJ 1,000 MG in SODIUM CHLOR 0.9% 250 ML INJ 250 ML IV ONE (15:45)
[2017-07-08] MEDS ORDERED: SODIUM POLYSTYRENE SULFONATE SUSP 15 GM/60 ML CUP PO ONE (15:45)
[2017-07-08] MEDS ORDERED: ACETAMINOPHEN/HYDROcodone 325 MG/10 MG TAB PO ONE (16:30)
[2017-07-08 17:00] VITALS: PULSE 106; RESP 18; O2SAT 99
--- NOTE | 2017-07-09 09:56 | EKG ---
Date Performed: 07/08/2017 Time Performed: 13:21:28 PTAGE: 56 years EKG: Sinus rhythm Atrial premature complexes Right bundle branch block PREVIOUS TRACING : 06/19/2017 15.59 Since the previous tracing, no significant change not ed DOCTOR: Aleks Wright Interpretating Date/Time 07/09/2017 09:55:26
== END 2017-07-08 18:20 | disposition home or self-care (01) ==
LOC: NEPC 12:18
DX: S31.109A Unspecified open wound of abdominal wall, unspecified quadrant without penetration into peritoneal cavity, initial encounter (principal); L03.311 Cellulitis of abdominal wall; R79.1 Abnormal coagulation profile; I13.2 Hypertensive heart and chronic kidney disease with heart failure and with stage 5 chronic kidney disease, or end stage renal disease; E11.22 Type 2 diabetes mellitus with diabetic chronic kidney disease; E03.9 Hypothyroidism, unspecified; I50.9 Heart failure, unspecified; N18.6 End stage renal disease; Z99.2 Dependence on renal dialysis; Z79.01 Long term (current) use of anticoagulants; Z79.4 Long term (current) use of insulin; Z79.899 Other long term (current) drug therapy
CPT/HCPCS: 71045; 80053; 81001; 83605; 83690; 83735; 85025; 85610; 85730; 87040; 87077; 87086; 87186; 93005; 96365; 99285; J3370; J7050

== ENCOUNTER 2017-07-23 12:58 | Inpatient (IN) | payer OTHER, MEDICARE ==
[~2017-07-23] VITALS: Ht 167.6 cm; Wt 100.0 kg
[~2017-07-23 12:58] MED LIST changes: -ALPR.25 PO; -COLL30T TOPICAL; -COUM1TAB PO; +COUM4TAB PO; -Calcium Carbonate Chew CHEW; -DIFL100T PO; +DOXY1CAP91 PO; -FLUC50TA2 PO; +LIDO2GEL11 TOPICAL; +LORA-392 PO; +NOVOLOGP2 SQ; -PARO40TA2 PO; +TUMS500C PO; +VANC1000P IV; +VOLT1GEL16 TOPICAL; -ZOFR4TAB3 SL
[2017-07-23 13:18] VITALS: BP 135/73; PULSE 103; RESP 20; TEMP 99.4; O2SAT 99
--- NOTE | 2017-07-23 13:42 | PD ---
HPI Chief Complaint: Hip Injury Time Seen by Provider: 13:41 Travel History International Travel<30 days: No Contact w/Intl Traveler<30days: No Traveled to known affect area: No History of Present Illness HPI 56-year-old female with history of end-stage renal disease, dialysis Friday, a diabetes, hypertension, chronic wounds, morbid obesity, inability to ambulate, currently being treated for UTI, presents emergency department for evaluation of right hip pain. Patient states on Friday when she went to get her Vas-Cath changed being transferred from the Katty lift to the chair, her leg was pulled and she felt immediate hip pain. She states it was tolerable at that time but over the last 3 days, pain has become almost unbearable. She states she cannot even flex her hip without significant pain. It is isolated to the anterior lateral right hip. She denies any other injury. No fever or chills. No nausea or vomiting. She has no other symptoms to report. Patient states she would be unable to make dialysis today due to the pain in the Katty lift chair. Patient also has recent history of stage III sacral decubitus and a right abdominal fold cellulitis. PFSH Past Medical History Hx Anticoagulant Therapy: Yes (WARFARIN ) Arthritis: Yes Asthma: No Autoimmune Disease: No Blood Disorders: No Anxiety: Yes Depression: No Heart Rhythm Problems: No Cancer: No Cardiac Catheterization: Yes (2012) Cardiovascular Problems: Yes (HYPOTENSION ) High Cholesterol: Yes Chemotherapy: No Chest Pain: Yes Congestive Heart Failure: Yes COPD: No Cerebrovascular Accident: No Coronary Artery Disease: Yes Diabetes: Yes Patient Takes Glucophage: No Dialysis: Yes (M,W,F) Diminished Hearing: No Endocrine: Yes Gastrointestinal Disorders: Yes (LAP BAND stopped working few yrs ago) Genitourinary: Yes Hypertension: Yes Implanted Vascular Access Dvce: Yes (FISTULA, VASCATH) Kidney Stones: No Medical other: Yes (LEFT LOWER ARM FISTULA) Musculoskeletal: Yes (DB NEUROPATHY) Neurologic: No Psychiatric: Yes Reproductive: Yes Respiratory: Yes Immunizations Current: Yes Migraines: No Radiation Therapy: No Renal Failure: Yes Seizures: No Sickle Cell Disease: No Sleep Apnea: Yes Thyroid Disease: Yes Triglycerides - High: Yes Ulcer: No ?: Not Menopausal: Yes : 1 Para: 1 Past Surgical History Abdominal Surgery: Yes (ABD WOUND for friction, COLOSTOMY ) AICD: No Arteriovenous Shunt: Yes (AV FISTULA LEFT , VAS CATH RIGHT CHEST) Body Medical Devices: av fistula/ heart stents Cardiac Surgery: No Section: Yes (X 1) Cholecystectomy: Yes (1996) Coronary Artery Bypass Graft: Yes Coronary Stent: Yes (x1 June 2012) Ear Surgery: No Endocrine Surgery: No Eye Surgery: No Genitourinary Surgery: No Hysterectomy: Yes Joint Replacement: No Neurologic Surgery: No Oral Surgery: Yes (T&A) Pacemaker: No Thoracic Surgery: No Tonsillectomy: Yes Other Surgery: Yes (LAP BAND, VAS CATH R CHEST , L ARM FISTULA ) Social History Alcohol Use: No Tobacco Use: No Substance Use: No Allergies-Medications (Allergen,Severity, Reaction): Coded Allergies: clarithromycin (Verified Allergy, Severe, swelling of face, 07/08/17) methadone (Verified Allergy, Unknown, HALLUCINATION , 07/08/17) ferrous fumarate (Verified Adverse Reaction, Severe, Constipation, 07/08/17) ferrous sulfate (Verified Adverse Reaction, Severe, Constipation, 07/08/17) ferumoxytol (Verified Adverse Reaction, Severe, Constipation, 07/08/17) iron (Verified Adverse Reaction, Severe, Constipation, 07/08/17) morphine (Verified Adverse Reaction, Severe, 07/08/17) renal insufficiency. multivitamin infusion, adult no.4 with vitamin K (Verified Adverse Reaction, Severe, Constipation, 07/08/17) multivitamin with iron,other minerals (Verified Adverse Reaction, Severe, Constipation, 07/08/17) *MDRO Multi-Drug Resistant Organism (Verified Adverse Reaction, Unknown, VRE, MRSA, MDR-Pseudomonas, 07/08/17) VRE (abdominal wound) - 07/09/16 MDR-Pseudomonas (abdominal wound) - 07/09/16 MRSA (abdomen wound) - 08/28/16 Reported Meds & Prescriptions Reported Meds & Active Scripts Active Hydrocodone-Acetamin 10-325 mg (Hydrocodone/Acetaminophen) 10 Mg-325 Mg Tablet 1 Tab PO Q6H PRN Reported Cefuroxime (Cefuroxime Axetil) 500 Mg Tab 500 Mg PO BID Warfarin 1 Mg Tab 3 Mg PO DAILY Vancomycin Inj (Vancomycin HCl) 1 Gram Inj 1 Gm IV DURING DIALYSIS Voltaren (Diclofenac Sodium) 1 % Gel..gram. 1 Applic TOPICAL DAILY PRN Lidocaine Topical (Lidocaine HCl) 2 % Jel 1 Applic TOPICAL DAILY PRN Novolog Inj (Insulin Aspart) 1,000 Unit/10 Ml Vial 0 SQ DIRECTED Sliding Scale as directed. Tums (Calcium Carbonate (Antacid)) 500 Mg Chew 500 Mg PO DAILY Ativan (Lorazepam) 0.5 Mg Tab 0.5 Mg PO BID Quetiapine (Quetiapine Fumarate) 25 Mg Tab 25 Mg PO BID Ditropan (Oxybutynin Chloride) 5 Mg Tab 5 Mg PO Q12HR Tizanidine (Tizanidine HCl) 4 Mg Cap 4 Mg PO TID PRN Levothyroxine (Levothyroxine Sodium) 150 Mcg Tab 150 Mcg PO DAILY Atorvastatin (Atorvastatin Calcium) 40 Mg Tab 40 Mg PO HS Gabapentin 100 Mg Cap 100 Mg PO BID Review of Systems Except as stated in HPI: all other systems reviewed are Neg Physical Exam Narrative GENERAL: Morbidly obese female patient, lying in bed, appears without distress. SKIN: Focused skin assessment warm/dry. Mild erythema in the right abdominal fold. No significant induration. No fluctuation. Hyperpigmented crusting of the bilateral lower extremity. Right subclavian Vas-Cath in place. No erythema or edema. I am unable to visualize the sacral decubiti due to inability to fully turn her over secondary to her pain and refusal to continue to turn.. HEAD: Atraumatic. Normocephalic. EYES: Pupils equal and round. No scleral icterus. No injection or drainage. ENT: No nasal bleeding or discharge. Mucous membranes pink and moist. NECK: Trachea midline. No JVD. CARDIOVASCULAR: Tachycardic rate and rhythm. RESPIRATORY: No accessory muscle use. Clear to auscultation. Breath sounds equal bilaterally. GASTROINTESTINAL: Abdomen rotund, soft, nondistended. Hepatic and splenic margins not palpable. MUSCULOSKELETAL: No obvious deformities. No clubbing. No cyanosis. No edema. NEUROLOGICAL: Awake and alert. No obvious cranial nerve deficits. Motor grossly within normal limits. Normal speech. PSYCHIATRIC: Appropriate mood and affect; insight and judgment normal. Data Data Last Documented VS Vital Signs Date Time Temp Pulse Resp B/P (MAP) Pulse Ox O2 Delivery O2 Flow Rate FiO2 07/23/17 13:18 99.4 103 20 135/73 (93) 99 Orders Orders Hip, Uni(Ap&Lat) W Ap Pelvis (07/23/17 ) Acetamin-Hydrocod 325-5 Mg ([place] 5-325 (07/23/17 14:00) Ct Hip W/O Contrast (07/23/17 ) Iv Access Insert/Monitor (07/23/17 14:47) Complete Blood Count With Diff (07/23/17 14:47) Basic Metabolic Panel (Bmp) (07/23/17 14:47) Coag Profile (07/23/17 14:47) Basic Metabolic Panel (Bmp) (07/23/17 17:04) Labs Laboratory Tests Test 07/23/17 14:40 07/23/17 17:21 Prothrombin Time 10.4 SEC Prothromb Time International Ratio 1.0 RATIO Activated Partial Thromboplast Time 27.5 SEC Blood Urea Nitrogen 7 MG/DL 58 MG/DL Creatinine 0.96 MG/DL 5.63 MG/DL Random Glucose 110 MG/DL 147 MG/DL Calcium Level 9.8 MG/DL 8.7 MG/DL Sodium Level 140 MEQ/L 136 MEQ/L Potassium Level 3.3 MEQ/L 5.2 MEQ/L Chloride Level 105 MEQ/L 103 MEQ/L Carbon Dioxide Level 24.6 MEQ/L 21.2 MEQ/L Anion Gap 10 MEQ/L 12 MEQ/L Estimat Glomerular Filtration Rate 60 ML/MIN 8 ML/MIN White Blood Count 10.5 TH/MM3 Red Blood Count 5.56 MIL/MM3 Hemoglobin 16.1 GM/DL Hematocrit 47.0 % Mean Corpuscular Volume 84.5 FL Mean Corpuscular Hemoglobin 29.0 PG Mean Corpuscular Hemoglobin Concent 34.4 % Red Cell Distribution Width 13.1 % Platelet Count 330 TH/MM3 Mean Platelet Volume 7.3 FL Neutrophils (%) (Auto) 60.7 % Lymphocytes (%) (Auto) 30.6 % Monocytes (%) (Auto) 7.5 % Eosinophils (%) (Auto) 0.5 % Basophils (%) (Auto) 0.7 % Neutrophils # (Auto) 6.4 TH/MM3 Lymphocytes # (Auto) 3.2 TH/MM3 Monocytes # (Auto) 0.8 TH/MM3 Eosinophils # (Auto) 0.1 TH/MM3 Basophils # (Auto) 0.1 TH/MM3 CBC Comment DIFF FINAL Differential Comment MDM Medical Decision Making Medical Screen Exam Complete: Yes Emergency Medical Condition: Yes Medical Record Reviewed: Yes Differential Diagnosis Fracture versus sprain versus contusion versus dislocation Narrative Course 56-year-old female presents emergency department for evaluation of right hip pain. Patient appears without distress. Her vital signs are stable. She is mildly tachycardic. Tenderness elicited palpation of the right anterior lateral hip however patient is normally not able to ambulate. She is reluctant to flex the hip for me due to pain. X-ray is complete with no acute bony abnormality. There are degenerative changes. Due to patient's continued pain despite pain control, CT imaging is ordered. Last Impressions Lower Extremity CT 07/23/17 0000 Signed Impressions: Service Date/Time: Sunday, July 23, 2017 15:39 - CONCLUSION: 1. Degenerative osteoarthritic changes in both hips without fracture. 2. Colostomy in the paramidline lower abdomen with a periosteal hernia containing a nondilated loop of small bowel. 3. Dense atherosclerotic calcification of the regional vasculature. 4. Reported history of hysterectomy but there appears to be an IUD within the intact uterus. Dane Raymond MD Hip and Pelvis X-Ray 07/23/17 0000 Signed Impressions: Service Date/Time: Sunday, July 23, 2017 14:30 - CONCLUSION: 1. Moderate arthritic changes within the right hip area 2. Advanced atherosclerotic calcification of the pelvic and upper thigh vasculature. Bradly Hope MD We have reviewed the imaging studies. Patient will be unable to make dialysis today. BMP is ordered at this time. Laboratory Tests Test 07/23/17 14:40 07/23/17 17:21 Prothrombin Time 10.4 SEC Prothromb Time International Ratio 1.0 RATIO Activated Partial Thromboplast Time 27.5 SEC White Blood Count 10.5 TH/MM3 Red Blood Count 5.56 MIL/MM3 Hemoglobin 16.1 GM/DL Hematocrit 47.0 % Mean Corpuscular Volume 84.5 FL Mean Corpuscular Hemoglobin 29.0 PG Mean Corpuscular Hemoglobin Concent 34.4 % Red Cell Distribution Width 13.1 % Platelet Count 330 TH/MM3 Mean Platelet Volume 7.3 FL Neutrophils (%) (Auto) 60.7 % Lymphocytes (%) (Auto) 30.6 % Monocytes (%) (Auto) 7.5 % Eosinophils (%) (Auto) 0.5 % Basophils (%) (Auto) 0.7 % Neutrophils # (Auto) 6.4 TH/MM3 Lymphocytes # (Auto) 3.2 TH/MM3 Monocytes # (Auto) 0.8 TH/MM3 Eosinophils # (Auto) 0.1 TH/MM3 Basophils # (Auto) 0.1 TH/MM3 CBC Comment DIFF FINAL Differential Comment Blood Urea Nitrogen 58 MG/DL Creatinine 5.63 MG/DL Random Glucose 147 MG/DL Calcium Level 8.7 MG/DL Sodium Level 136 MEQ/L Potassium Level 5.2 MEQ/L Chloride Level 103 MEQ/L Carbon Dioxide Level 21.2 MEQ/L Anion Gap 12 MEQ/L Estimat Glomerular Filtration Rate 8 ML/MIN Findings are reviewed with my attending physician. We feel it is in patient's best interest to be admitted observation for pain control as well as dialysis that she missed today[facility] Primary Impression: Hyperkalemia Additional Impressions: ESRD (end stage renal disease) on dialysis Right hip pain Admitting Information Admitting Physician Requests: Observation Referrals: Valentin Jimenez MD Primary Care Physician Patient Instructions: General Instructions, Hip Pain (ED) Additional Instructions: Continue all medication as already prescribed Follow-up with a primary care provider Return immediately with acute worsening symptoms Med/Other Pt SpecificInfo: No Change to Meds Condition: Stable Hetal Summers July 23, 2017 13:42
[2017-07-23] MEDS ORDERED: CEFU1TAB20 PO (14:00)
[2017-07-23] MEDS ORDERED: WARF4TAB52 PO (14:00)
[2017-07-23] MEDS ORDERED: ACETAMINOPHEN/HYDROcodone 325 MG/5 MG TAB PO ONE (14:00)
--- NOTE | 2017-07-23 14:41 | RADRPT ---
EXAM DATE/TIME: 07/23/2017 14:30 [facility] COMPARISON: CHEST SINGLE AP, July 08, 2017, 13:08. INDICATIONS : Right pelvis and right hip pain, no known injury. MEDICAL HISTORY : Osteoarthritis. Hypertension Diabetes mellitus type II. SURGICAL HISTORY : None. ENCOUNTER: Initial ACUITY: 3 days PAIN SCORE: 10/10 LOCATION: Right pelvis FINDINGS: The examination demonstrates moderate osteoarthritic changes within the hips right greater than left. No acute fracture or destructive lesion is identified. Note is made of advanced vascular calcification throughout the pelvis and upper thighs. CONCLUSION: 1. Moderate arthritic changes within the right hip area 2. Advanced atherosclerotic calcification of the pelvic and upper thigh vasculature. Bradly Hope MD on July 23, 2017 at 14:37 Board Certified Radiologist. This report was verified electronically.
--- NOTE | 2017-07-23 16:31 | RADRPT ---
EXAM DATE/TIME: 07/23/2017 15:39 [facility] COMPARISON: HIP RIGHT (AP&LAT 2/3VWS) W AP PELVIS, July 23, 2017, 14:30. INDICATIONS : Right hip pain RADIATION DOSE: 32.76 CTDIvol (mGy) ; Patient body habitus MEDICAL HISTORY : Cardiovascular disease. Dialysis SURGICAL HISTORY : Hysterectomy. Hysterectomy. Colostomy.Lap band ENCOUNTER: Initial ACUITY: 1 day PAIN SCALE: 7/10 LOCATION: Right Hip TECHNIQUE: Volumetric scanning of the hip was performed. Using automated exposure control and adjustment of the mA and/or kV according to patient size, radiation dose was kept as low as reasonably achievable to o btain optimal diagnostic quality images. DICOM format image data is available electronically for rev iew and comparison. FINDINGS: BONES: No evidence of fracture. Alignment is within normal limits. JOINTS: Degenerative osteoarthritic changes are seen in both hips. SOFT TISSUES: Muscles, tendons and neurovascular structures are grossly unremarkable. No evidence of mass, organize d fluid collection, or foreign body. Patient has a paramidline colostomy in the right lower abdomen w ith a periosteal hernia containing nonobstructed small bowel loops. Dense calcification of the region al vasculature. Patient appears to have an IUD in place. CONCLUSION: 1. Degenerative osteoarthritic changes in both hips without fracture. 2. Colostomy in the paramidline lower abdomen with a periosteal hernia containing a nondilated loop o f small bowel. 3. Dense atherosclerotic calcification of the regional vasculature. 4. Reported history of hysterectomy but there appears to be an IUD within the intact uterus. Dane Raymond MD on July 23, 2017 at 16:21 Board Certified Radiologist. This report was verified electronically.
--- NOTE | 2017-07-23 16:55 | PD ---
Data Data Last Documented VS Vital Signs Date Time Temp Pulse Resp B/P (MAP) Pulse Ox O2 Delivery O2 Flow Rate FiO2 07/23/17 13:18 99.4 103 20 135/73 (93) 99 Orders Orders Hip, Uni(Ap&Lat) W Ap Pelvis (07/23/17 ) Acetamin-Hydrocod 325-5 Mg ([place] 5-325 (07/23/17 14:00) Ct Hip W/O Contrast (07/23/17 ) Iv Access Insert/Monitor (07/23/17 14:47) Complete Blood Count With Diff (07/23/17 14:47) Basic Metabolic Panel (Bmp) (07/23/17 14:47) Coag Profile (07/23/17 14:47) Ed Discharge Order (07/23/17 16:39) Labs Laboratory Tests Test 07/23/17 14:40 White Blood Count 10.5 TH/MM3 Red Blood Count 5.56 MIL/MM3 Hemoglobin 16.1 GM/DL Hematocrit 47.0 % Mean Corpuscular Volume 84.5 FL Mean Corpuscular Hemoglobin 29.0 PG Mean Corpuscular Hemoglobin Concent 34.4 % Red Cell Distribution Width 13.1 % Platelet Count 330 TH/MM3 Mean Platelet Volume 7.3 FL Neutrophils (%) (Auto) 60.7 % Lymphocytes (%) (Auto) 30.6 % Monocytes (%) (Auto) 7.5 % Eosinophils (%) (Auto) 0.5 % Basophils (%) (Auto) 0.7 % Neutrophils # (Auto) 6.4 TH/MM3 Lymphocytes # (Auto) 3.2 TH/MM3 Monocytes # (Auto) 0.8 TH/MM3 Eosinophils # (Auto) 0.1 TH/MM3 Basophils # (Auto) 0.1 TH/MM3 CBC Comment DIFF FINAL Differential Comment Prothrombin Time 10.4 SEC Prothromb Time International Ratio 1.0 RATIO Activated Partial Thromboplast Time 27.5 SEC Blood Urea Nitrogen 7 MG/DL Creatinine 0.96 MG/DL Random Glucose 110 MG/DL Calcium Level 9.8 MG/DL Sodium Level 140 MEQ/L Potassium Level 3.3 MEQ/L Chloride Level 105 MEQ/L Carbon Dioxide Level 24.6 MEQ/L Anion Gap 10 MEQ/L Estimat Glomerular Filtration Rate 60 ML/MIN MDM Supervised Visit with RONNIE: Yes Narrative Course The history, exam, and medical decision-making in the associated midlevel provider note were completed with my assistance. I reviewed and agree with the findings presented. I attest that I had a [id number] encounter with the patient on the same day, and personally performed and documented my assessment and findings in the medical record. *My assessment and Findings: This is a 56-year-old female who presents to the emergency department with right hip pain ever since she was transferred incorrect using a sheet. She has a normal neurologic exam. She has significant pain with range of motion of the hip. X-ray and CT were negative for acute fracture. Patient has no fever or leukocytosis to suggest septic arthritis. I suspect patient's pain is in the setting of osteoarthritis. She is a dialysis patient and missed dialysis but her labs look normal and she has been making urine. I do not think she requires emergent dialysis today. Patient will be transported home. Diagnosis Primary Impression: Right hip pain Referrals: Valentin Jimenez MD Primary Care Physician Patient Instructions: General Instructions, Hip Pain (ED) Additional Instruction: Continue all medication as already prescribed Follow-up with a primary care provider Return immediately with acute worsening symptoms Disposition: 01 DISCHARGE HOME Condition: Stable Carol Gandhi MD July 23, 2017 16:55
[2017-07-23 17:58] LABS: BICARBONATE 21.2 MEQ/L (21.0-32.0); CALCIUM 8.7 MG/DL (8.5-10.1); CREATININE 5.63 MG/DL (0.50-1.00)
[2017-07-23 18:49] VITALS: BP 127/60; PULSE 98; RESP 19; O2SAT 99
[2017-07-23] MEDS ORDERED: LORazepam 0.5 MG TAB PO PRN (19:30)
[2017-07-23] MEDS ORDERED: DEXTROSE 50% IN WATER 50 ML VIAL(D50) IV PUSH PRN (19:30)
[2017-07-23] MEDS ORDERED: GLUCAGON 1 MG/ML VIAL OTHER PRN (19:30)
--- NOTE | 2017-07-23 19:58 | HHI.HP ---
HPI Service [facility] Primary Care Physician Aline Velarde MD Admission Diagnosis ESRD; hyperkalemia Diagnoses: (1) Intractable pain Chief Complaint: Right hip pain with immobility Travel History International Travel<30 Days: No Contact w/Intl Traveler <30 Da: No Traveled to Known Affected Are: No History of Present Illness Written by Yaritza Escobar, acting as scribe for Dr. Mcmahon on 07/23/17 at 19:58. Mr. Foley is a 56-year-old female with a history of diabetes mellitus, arthritis , end-stage renal disease on hemodialysis, chronic wounds, spinal stenosis, and right lower extremity DVT who presented to the emergency room on 07/23/2017 complaining of severe right hip pain with an mobility. She was given pain medication in the emergency room without improvement in symptoms and the [facility]. She reports severe right hip pain - started one week ago after being moved during dialysis - has had pain before but nothing as bad as it is currently. She reports the pain is been since severe that she has been unable to move at home and is having to rely on a Katty lift exclusively to get her out of bed. Currently, she is c/o 7/10 right hip pain - reports it was a 10/10 on presentation to the hospital. Has a prescription for [place] 10/325 mg - took one this morning and it helped. She reports a gave her 5 /325 mg in the ED and this did not help at all. She is complaining of severe muscle spasms are chronic and she takes Zanaflex at home for these. She has HHC on , Friday for chronic wounds on her legs. HD is on Friday The patient reports that she lost ability to walk following a fall last year - she has been bedbound since then Review of Systems Except as stated in HPI: all other systems reviewed are Neg Past Family Social History Past Medical History Diabetes Mellitus - uses SSI at home Arthritis ESRD on HD - follows with Dr. Jimenez Chronic wounds - diverting colostomy done for wound care Spinal stenosis Right lower extremity DVT . Past Surgical History Tailbone removed Diverting colostomy C Section Cholecystectomy Lap Band Bilateral trigger finger release AV fistula . Reported Medications Reported Meds & Active Scripts Active Hydrocodone-Acetamin 10-325 mg (Hydrocodone/Acetaminophen) 10 Mg-325 Mg Tablet 1 Tab PO Q6H PRN Reported Cefuroxime (Cefuroxime Axetil) 500 Mg Tab 500 Mg PO BID Warfarin 1 Mg Tab 3 Mg PO DAILY Vancomycin Inj (Vancomycin HCl) 1 Gram Inj 1 Gm IV DURING DIALYSIS Voltaren (Diclofenac Sodium) 1 % Gel..gram. 1 Applic TOPICAL DAILY PRN Lidocaine Topical (Lidocaine HCl) 2 % Jel 1 Applic TOPICAL DAILY PRN Novolog Inj (Insulin Aspart) 1,000 Unit/10 Ml Vial 0 SQ DIRECTED Sliding Scale as directed. Tums (Calcium Carbonate (Antacid)) 500 Mg Chew 500 Mg PO DAILY Ativan (Lorazepam) 0.5 Mg Tab 0.5 Mg PO BID Quetiapine (Quetiapine Fumarate) 25 Mg Tab 25 Mg PO BID Ditropan (Oxybutynin Chloride) 5 Mg Tab 5 Mg PO Q12HR Tizanidine (Tizanidine HCl) 4 Mg Cap 4 Mg PO TID PRN Levothyroxine (Levothyroxine Sodium) 150 Mcg Tab 150 Mcg PO DAILY Atorvastatin (Atorvastatin Calcium) 40 Mg Tab 40 Mg PO HS Gabapentin 100 Mg Cap 100 Mg PO BID . Allergies: Coded Allergies: clarithromycin (Verified Allergy, Severe, swelling of face, 07/08/17) methadone (Verified Allergy, Unknown, HALLUCINATION , 07/08/17) ferrous fumarate (Verified Adverse Reaction, Severe, Constipation, 07/08/17) ferrous sulfate (Verified Adverse Reaction, Severe, Constipation, 07/08/17) ferumoxytol (Verified Adverse Reaction, Severe, Constipation, 07/08/17) iron (Verified Adverse Reaction, Severe, Constipation, 07/08/17) morphine (Verified Adverse Reaction, Severe, 07/08/17) renal insufficiency. multivitamin infusion, adult no.4 with vitamin K (Verified Adverse Reaction, Severe, Constipation, 07/08/17) multivitamin with iron,other minerals (Verified Adverse Reaction, Severe, Constipation, 07/08/17) *MDRO Multi-Drug Resistant Organism (Verified Adverse Reaction, Unknown, VRE, MRSA, MDR-Pseudomonas, 07/08/17) VRE (abdominal wound) - 07/09/16 MDR-Pseudomonas (abdominal wound) - 07/09/16 MRSA (abdomen wound) - 08/28/16 Family History Father has diabetes mellitus and heart disease . Social History Tobacco: denies Alcohol: denies Lives with 25 y/o son and his girlfriend - she feels like she has very good support from her son . Physical Exam Vital Signs Vital Signs Date Time Temp Pulse Resp B/P (MAP) Pulse Ox O2 Delivery O2 Flow Rate FiO2 07/23/17 19:05 07/23/17 18:49 98 19 127/60 (82) 99 Room Air 07/23/17 13:18 99.4 103 20 135/73 (93) 99 Physical Exam CONSTITUTIONAL: This is a morbidly obese female patient, in no apparent distress. INTEGUMENTARY: no rashes. Cool and dry. Left anterior thigh wound appx. size of a baseball, clean edges with no signs of infection. HEAD: Atraumatic. Normocephalic. EYES: No scleral icterus. No injection or drainage. ENT: Nose without bleeding, purulent drainage. NECK: Trachea midline. No JVD or lymphadenopathy. CARDIOVASCULAR: Regular rate and rhythm with heart murmur, no gallops, or rubs. RESPIRATORY: Clear to auscultation. Breath sounds equal bilaterally. No wheezes , rales, or rhonchi. GASTROINTESTINAL: Abdomen soft, non-tender, nondistended. No guarding. Diverting colostomy noted - no complications seen other than bag is leaking - RN notified. MUSCULOSKELETAL: Extremities without clubbing, cyanosis, or edema. Right hip was tender to touch. NEUROLOGICAL: Awake alert and oriented x 3. Normal speech. . Laboratory Laboratory Tests Test 07/23/17 14:40 07/23/17 17:21 Prothrombin Time 10.4 Prothromb Time International Ratio 1.0 Activated Partial Thromboplast Time 27.5 Blood Urea Nitrogen 58 Creatinine 5.63 Random Glucose 147 Calcium Level 8.7 Sodium Level 136 Potassium Level 5.2 Chloride Level 103 Carbon Dioxide Level 21.2 Anion Gap 12 Estimat Glomerular Filtration Rate 8 White Blood Count 10.5 Red Blood Count 5.56 Hemoglobin 16.1 Hematocrit 47.0 Mean Corpuscular Volume 84.5 Mean Corpuscular Hemoglobin 29.0 Mean Corpuscular Hemoglobin Concent 34.4 Red Cell Distribution Width 13.1 Platelet Count 330 Mean Platelet Volume 7.3 Neutrophils (%) (Auto) 60.7 Lymphocytes (%) (Auto) 30.6 Monocytes (%) (Auto) 7.5 Eosinophils (%) (Auto) 0.5 Basophils (%) (Auto) 0.7 Neutrophils # (Auto) 6.4 Lymphocytes # (Auto) 3.2 Monocytes # (Auto) 0.8 Eosinophils # (Auto) 0.1 Basophils # (Auto) 0.1 CBC Comment DIFF FINAL Differential Comment Result Diagram: 07/23/17 1721 07/23/17 1721 Imaging Last Impressions Lower Extremity CT 07/23/17 0000 Signed Impressions: Service Date/Time: Sunday, July 23, 2017 15:39 - CONCLUSION: 1. Degenerative osteoarthritic changes in both hips without fracture. 2. Colostomy in the paramidline lower abdomen with a periosteal hernia containing a nondilated loop of small bowel. 3. Dense atherosclerotic calcification of the regional vasculature. 4. Reported history of hysterectomy but there appears to be an IUD within the intact uterus. Dane Raymond MD Hip and Pelvis X-Ray 07/23/17 0000 Signed Impressions: Service Date/Time: Sunday, July 23, 2017 14:30 - CONCLUSION: 1. Moderate arthritic changes within the right hip area 2. Advanced atherosclerotic calcification of the pelvic and upper thigh vasculature. Bradly Hope MD . Caprini VTE Risk Assessment Caprini VTE Risk Assessment: Mod/High Risk (score >= 2) Caprini Risk Assessment Model Point Value = 1 Point Value = 2 Point Value = 3 Point Value = 5 Age 41-60 Minor surgery BMI > 25 kg/m2 Swollen legs Varicose veins or History of unexplained or recurrent spontaneous Oral contraceptives or hormone replacement Sepsis (< 1 month) Serious lung disease, including pneumonia (< 1 month) Abnormal pulmonary function Acute myocardial infarction Congestive heart failure (< 1 month) History of inflammatory bowel disease Medical patient at bed rest Age 61-74 Arthroscopic surgery Major open surgery (> 45 min) Laparoscopic surgery (> 45 min) Malignancy Confined to bed (> 72 hours) Immobilizing plaster cast Central venous access Age >= 75 History of VTE Family history of VTE Factor V Leiden Prothrombin [id number] Lupus anticoagulant Anticardiolipin antibodies Elevated serum homocysteine Heparin-induced thrombocytopenia Other congenital or acquired thrombophilia Stroke (< 1 month) Elective arthroplasty Hip, pelvis, or leg fracture Acute spinal cord injury (< 1 month) Prophylaxis Regimen Total Risk Factor Score Risk Level Prophylaxis Regimen 0-1 Low Early ambulation 2 Moderate Order ONE of the following: *Sequential Compression Device (SCD) *Heparin 5000 units SQ BID 3-4 Higher Order ONE of the following medications: *Heparin 5000 units SQ TID *Enoxaparin/Lovenox 40 mg SQ daily (WT < 150 kg, CrCl > 30 mL/min) *Enoxaparin/Lovenox 30 mg SQ daily (WT < 150 kg, CrCl > 10-29 mL/min) *Enoxaparin/Lovenox 30 mg SQ BID (WT < 150 kg, CrCl > 30 mL/min) AND/OR *Sequential Compression Device (SCD) 5 or more Highest Order ONE of the following medications: *Heparin 5000 units SQ TID (Preferred with Epidurals) *Enoxaparin/Lovenox 40 mg SQ daily (WT < 150 kg, CrCl > 30 mL/min) *Enoxaparin/Lovenox 30 mg SQ daily (WT < 150 kg, CrCl > 10-29 mL/min) *Enoxaparin/Lovenox 30 mg SQ BID (WT < 150 kg, CrCl > 30 mL/min) AND *Sequential Compression Device (SCD) Assessment and Plan Problem List: (1) Intractable pain ICD Code: R52 - Pain, unspecified (2) End stage kidney disease ICD Code: N18.6 - End stage renal disease Status: Chronic Assessment and Plan Mr. Foley is a 56-year-old female with a history of diabetes mellitus, arthritis , end-stage renal disease on hemodialysis, chronic wounds, spinal stenosis, and right lower extremity DVT who presented to the emergency room on 07/23/2017 complaining of severe right hip pain with an mobility. She was given pain medication in the emergency room without improvement in symptoms and the [facility]. Int[facility] pain, right hip -CT of the right hip with osteoarthritic changes without fracture. -Pain control with home [place] 10/325 every 4 hours as needed pain and Zanaflex -Consult case management for assistance with home health End-stage renal disease on hemodialysis -Consult Dr. Jimenez to continue dialysis - should have dialysis in the morning DVT prophylaxis -Continue home Coumadin chronic wounds- being followed up by her wound care nurse at home. Discharge planning Should be able to discharge in the morning with home health care. the above note was scribed by Ms. Yaritza Escobar. I attest that I had a face-to- face encounter with the patient on the same day, and personally performed the history and physical exam and medical decision making. . Discussed Condition With Patient, RN, and ER physician Yaritza Escobar July 23, 2017 19:58 Yaakov Mcmahon MD July 23, 2017 20:32
[2017-07-23] MEDS ORDERED: ATORVASTATIN 40 MG TAB PO SCH (21:00)
[2017-07-23] MEDS: INSULIN ASPART SUPPLEMENTAL SCALE SQ SCH (21:00)
[2017-07-23 22:03] VITALS: BP 103/57; PULSE 97; RESP 20; TEMP 98.4; O2SAT 98
[2017-07-23] MEDS: QUEtiapine FUMARATE 25 MG TAB PO SCH (22:25)
[2017-07-23] MEDS: GABAPENTIN 100 MG CAP PO SCH (22:25)
[2017-07-23] MEDS: OXYBUTYNIN CHLORIDE 5 MG TAB PO SCH (22:25)
[2017-07-23 23:26] LABS: AUTOMATED NEUTROPHIL # 7.3 TH/MM3 (1.8-7.7); BASOPHIL # 0.1 TH/MM3 (0-0.2); BASOPHIL % 0.7 % (0.0-2.0); EOSINOPHIL # 0.3 TH/MM3 (0-0.4); EOSINOPHIL % 2.9 % (0.0-4.0); LYMPH % 12.9 % (9.0-44.0); LYMPHOCYTE # 1.2 TH/MM3 (1.0-4.8); MEAN CELL VOLUME 82.3 FL (80.0-100.0); MEAN CORPUSCULAR HEMOGLOBIN 26.3 PG (27.0-34.0); MEAN CORPUSCULAR HGB CONC 31.9 % (32.0-36.0); MEAN PLATELET VOLUME 7.6 FL (7.0-11.0); MONO % 7.7 % (0.0-8.0); MONOCYTE # 0.7 TH/MM3 (0-0.9); NEUT % 75.8 % (16.0-70.0); PLATELET COUNT 328 TH/MM3 (150-450); RED BLOOD COUNT 2.48 MIL/MM3 (4.00-5.30); RED CELL DISTRIBUTION WIDTH 18.9 % (11.6-17.2); WHITE BLOOD COUNT 9.7 TH/MM3 (4.0-11.0)
[2017-07-23 23:31] LABS: HEMATOCRIT 20.4 % (35.0-46.0); HEMOGLOBIN 6.5 GM/DL (11.6-15.3)
[2017-07-23 23:40] VITALS: BP 124/60; PULSE 104; RESP 18; TEMP 99.3; O2SAT 98
[2017-07-23] MEDS ORDERED: SODIUM CHLOR 0.9% 250 ML INJ 250 ML IV ONE (23:45)
[2017-07-23] MEDS: ACETAMINOPHEN/HYDROcodone 325 MG/10 MG TAB PO PRN (23:51)
[2017-07-24 00:45] LABS: INTERNATIONAL NORMALIZED RATIO 2.8 RATIO; PROTHROMBIN TIME - PATIENT 28.5 SEC (9.8-11.6)
[2017-07-24 02:36] VITALS: BP 99/50; PULSE 87; RESP 18; TEMP 99; O2SAT 96
[2017-07-24 03:02] VITALS: BP 125/62; PULSE 92; RESP 18; TEMP 99; O2SAT 100
[2017-07-24 03:30] VITALS: PULSE 85
[2017-07-24] MEDS: ACETAMINOPHEN/HYDROcodone 325 MG/10 MG TAB PO PRN ×3 (05:52→17:52)
[2017-07-24] MEDS ORDERED: LEVOTHYROXINE SODIUM 150 MCG TAB PO SCH (06:00)
[2017-07-24] MEDS ORDERED: SODIUM CHLOR 0.9% 1000 ML INJ 1,000 ML OTHER PRN ×2 (06:34)
[2017-07-24] MEDS ORDERED: SODIUM CHLOR 0.9% 1000 ML INJ 1,000 ML IV PRN (06:34)
[2017-07-24] MEDS ORDERED: NITROGLYCERIN 0.4 MG SL 25 TABS/BTL SL PRN (06:45)
[2017-07-24] MEDS ORDERED: EPOETIN ALFA 10,000 UNITS/ML VIAL IV PUSH PRN (06:45)
[2017-07-24] MEDS ORDERED: GENTAMICIN SULFATE 20 MG/2 ML VIAL OTHER PRN (06:45)
[2017-07-24] MEDS ORDERED: GELATIN 12 MM/7 MM FOAM TOP PRN (06:45)
[2017-07-24] MEDS ORDERED: HEPARIN SODIUM - IV 10,000 UNITS/10 ML VIAL PRN (06:45)
[2017-07-24] MEDS ORDERED: HEPARIN SODIUM - IV 10,000 UNITS/10 ML VIAL IV FLUSH PRN (06:45)
[2017-07-24] MEDS ORDERED: SODIUM CHLORIDE 0.9% FLUSH 10 ML FLUSH IV FLUSH PRN (06:45)
[2017-07-24] MEDS ORDERED: ACETAMINOPHEN 325 MG TAB PO PRN (06:45)
[2017-07-24] MEDS ORDERED: MANNITOL 12.5 GM/50 ML VIAL IV PRN (06:45)
[2017-07-24] MEDS ORDERED: cloNIDine HCL 0.1 MG TAB PO PRN (06:45)
[2017-07-24] MEDS ORDERED: ONDANSETRON HCL 4 MG/2 ML VIAL IV PUSH PRN (06:45)
[2017-07-24] MEDS ORDERED: diphenhydrAMINE HCL 25 MG CAP PO PRN (06:45)
[2017-07-24] MEDS ORDERED: ALBUMIN 25% INJ 100 ML IV PRN (06:45)
[2017-07-24 08:00] VITALS: PULSE 99
[2017-07-24] MEDS: INSULIN ASPART SUPPLEMENTAL SCALE SQ SCH ×3 (08:00→17:00)
[2017-07-24 08:22] VITALS: BP 86/42; PULSE 107; RESP 16; TEMP 98.8; O2SAT 97
--- NOTE | 2017-07-24 08:30 | HHI.PR ---
Subjective Remarks Follow up for right hip pain, anemia. The patient reports continued right hip pain although improved today, worse with any movement or palpation. She reports having problems with arthritis with the same hip in the past. She states she feels like she pulled a muscle around the hip and is experiencing occasional spasms. She states she is bedbound at baseline. She wants to go home today after dialysis. She states she has C nursing and plans to start C PT once her wounds are more healed. The patient has no other medical complaints at this time. Objective Vitals Vital Signs Date Time Temp Pulse Resp B/P (MAP) Pulse Ox O2 Delivery O2 Flow Rate FiO2 07/24/17 08:22 98.8 107 16 86/42 (57) 97 07/24/17 03:30 85 07/24/17 03:02 99.0 92 18 125/62 100 07/24/17 02:36 99.0 87 18 99/50 96 07/23/17 23:40 99.3 104 18 124/60 (81) 98 07/23/17 22:03 98.4 97 20 103/57 (72) 98 07/23/17 19:05 07/23/17 18:49 98 19 127/60 (82) 99 Room Air 07/23/17 13:18 99.4 103 20 135/73 (93) 99 I/O 07/23/17 07/23/17 07/23/17 07/24/17 07/24/17 07/24/17 07:00 15:00 23:00 07:00 15:00 23:00 Intake Total 400 ml Output Total 350 ml Balance 50 ml Intake Packed Cells 400 ml Output Urine Total 350 ml Result Diagram: 07/23/17 2240 07/23/17 1721 Imaging Last Impressions Lower Extremity CT 07/23/17 0000 Signed Impressions: Service Date/Time: Sunday, July 23, 2017 15:39 - CONCLUSION: 1. Degenerative osteoarthritic changes in both hips without fracture. 2. Colostomy in the paramidline lower abdomen with a periosteal hernia containing a nondilated loop of small bowel. 3. Dense atherosclerotic calcification of the regional vasculature. 4. Reported history of hysterectomy but there appears to be an IUD within the intact uterus. Dane Raymond MD Hip and Pelvis X-Ray 07/23/17 0000 Signed Impressions: Service Date/Time: Sunday, July 23, 2017 14:30 - CONCLUSION: 1. Moderate arthritic changes within the right hip area 2. Advanced atherosclerotic calcification of the pelvic and upper thigh vasculature. Bradly Hope MD Objective Remarks GENERAL: Well-nourished, well-developed obese female patient in [place]. SKIN: Warm and dry. No rash. Wounds throughout abdomen and thigh, covered with dressing, CDI. HEENT: Normocephalic. Atraumatic. Pupils equal and round. Mucous membranes pink and moist. NECK: Supple. Trachea midline. CARDIOVASCULAR: Regular rate and rhythm. No murmur appreciated. Permacath at right upper chest. RESPIRATORY: No accessory muscle use. Clear to auscultation. Breath sounds equal bilaterally. GASTROINTESTINAL: Abdomen soft, non-tender, nondistended. Normoactive bowel sounds x4. MUSCULOSKELETAL: No obvious deformities. Chronic bilateral lower extremity nonpitting edema. Right lateral hip mildly tender to palpation, with increased pain upon ROM exercises. NEUROLOGICAL: Awake and alert. No obvious cranial nerve deficits. Moving all extremities spontaneously. Normal speech. PSYCHIATRIC: Appropriate mood and affect; insight and judgment normal. Medications and IVs Current Medications Medications (Trade) Dose Ordered Sig/Soren Route Start Time Stop Time Status Last Admin (Ativan) 0.5 mg Q12H PRN PO 07/23/17 19:30 (D50w (Vial) Inj) 50 ml UNSCH PRN IV PUSH 07/23/17 19:30 (Glucagon Inj) 1 mg UNSCH PRN OTHER 07/23/17 19:30 (NovoLOG SUPPLEMENTAL SCALE) 1 ACHS SLIDING SCALE SQ 07/23/17 21:00 (Lipitor) 40 mg HS PO 07/23/17 21:00 07/23/17 22:24 (Tums Chew) 500 mg DAILY PO 07/24/17 09:00 07/24/17 08:32 (Neurontin) 100 mg BID PO 07/23/17 21:00 07/24/17 08:32 (Synthroid) 150 mcg DAILY@0600 PO 07/24/17 06:00 07/24/17 05:51 (Ditropan) 5 mg Q12HR PO 07/23/17 21:00 07/24/17 08:32 (SEROquel) 25 mg BID PO 07/23/17 21:00 07/24/17 08:33 (Zanaflex) 4 mg TID PRN PO 07/23/17 19:30 07/24/17 08:32 Pharmacy Profile Note 0 ml @ 0 mls/hr UNSCH OTHER 07/23/17 20:00 ([place] 10-325 Mg) 1 tab Q4H PRN PO 07/23/17 20:00 07/24/17 05:52 Sodium Chloride 250 ml @ 15 mls/hr ONCE ONCE IV 07/23/17 23:45 07/24/17 16:24 07/24/17 02:44 Sodium Chloride 1,000 ml @ 0 mls/hr Q0M PRN OTHER 07/24/17 06:34 (Heparin Inj) 8,000 units UNSCH PRN IV FLUSH 07/24/17 06:45 Sodium Chloride 1,000 ml @ 200 mls/hr Q5H PRN IV 07/24/17 06:34 Sodium Chloride 1,000 ml @ 0 mls/hr Q0M PRN OTHER 07/24/17 06:34 (Mannitol Inj) 12.5 gm UNSCH PRN IV 07/24/17 06:45 Albumin Human 100 ml @ 60 mls/hr UNSCH PRN IV 07/24/17 06:45 (NS Flush) 5 ml UNSCH PRN IV FLUSH 07/24/17 06:45 07/24/17 08:33 (Heparin Inj) UNSCH PRN .XX 07/24/17 06:45 (Gentamicin Inj) 20 mg UNSCH PRN OTHER 07/24/17 06:45 (Zofran Inj) 4 mg UNSCH PRN IV PUSH 07/24/17 06:45 (Tylenol) 650 mg UNSCH PRN PO 07/24/17 06:45 (Benadryl) 25 mg UNSCH PRN PO 07/24/17 06:45 (Nitrostat Sl) 0.4 mg UNSCH PRN SL 07/24/17 06:45 (Catapres) 0.1 mg UNSCH PRN PO 07/24/17 06:45 (Epogen Inj) 10,000 units UNSCH PRN IV PUSH 07/24/17 06:45 (Gelfoam 12 Mm/7 Mm Top) 1 foam UNSCH PRN TOP 07/24/17 06:45 A/P Problem List: (1) Intractable pain ICD Code: R52 - Pain, unspecified (2) End stage kidney disease ICD Code: N18.6 - End stage renal disease Status: Chronic Assessment and Plan 56-year-old female with a history of diabetes mellitus, arthritis, end-stage renal disease on hemodialysis, chronic wounds, spinal stenosis, and right lower extremity DVT who presented to the emergency room on 07/23/2017 complaining of severe right hip pain with an mobility. She was given pain medication in the emergency room without improvement in symptoms and the decision was [facility]. Intractable pain, right hip: suspect musculoskeletal. -CT of the right hip with osteoarthritic changes without fracture. -Pain control with home [place] 10/325 every 4 hours as needed pain and Zanaflex prn spasms -Consult case management for assistance with home health -Pain improved and tolerable, patient wants to go home Decompensated End-stage renal disease on hemodialysis with hyperkalemia -Consult Dr. Jimenez to continue dialysis -dialysis planned for today Symptomatic Anemia with hx of Anemia of Chronic Disease secondary to ESRD: Hgb 6.5 upon arrival, patient endorses fatigue -S/p 1u pRBC transfusion -repeat Hgb 8.5, patient's baseline -continue Epogen with dialysis Chronic wounds- throughout abdomen and lower extremities -being followed up by her wound care nurse at home, will continue at discharge Hyperkalemia: K 5.7 today -plan for dialysis today -repeat K following dialysis DVT prophylaxis -Continue home Coumadin Discharge Planning 0830hrs: Patient adamantly wants to go home following dialysis today. Potassium elevated at 5.7, suspect to improved after dialysis. Will recheck K prior to discharge. Case management to continue HHC at discharge. 1830hrs: Patient's repeat K 3.8. Stable for discharge. Patient recovered more quickly than expected, therefore discharged home. Discharge patient to home with [facility] Condition on discharge: Stable Dialysis Diet as tolerated Ad Yanet activity Rx written: Follow-up with primary care physician and nephrology Mara Muhammad PA-C July 24, 2017 08:30
[2017-07-24] MEDS: GABAPENTIN 100 MG CAP PO SCH (08:32)
[2017-07-24] MEDS: OXYBUTYNIN CHLORIDE 5 MG TAB PO SCH (08:32)
[2017-07-24] MEDS: QUEtiapine FUMARATE 25 MG TAB PO SCH (08:33)
--- NOTE | 2017-07-24 08:51 | PD.CONS ---
[facility] Service Nephrology Consult Requested By Dr. Ambrosio Reason for Consult End stage renal disease on hemodialysis Primary Care Physician Aline Velarde MD History of Present Illness Patient is a 56-year-old female with a history of diabetes mellitus, arthritis, end-stage renal disease on hemodialysis, chronic wounds, spinal stenosis, and right lower extremity DVT. Presented to the emergency room on complaining of severe right hip pain potentially from tariq lift. CT with no acute finding. Patient continues to complain of increased pain. Nephrology is consulted for management of end stage renal disease on hemodialysis. Dialysis days are Friday , Friday, and Friday and compliance has been a issue due to multiple issues including pain, having to be left in wheel chair for extended periods of time and not having help getting back in to bed because son works. Patient was also found to be anemic and transfused PRBC's. Dialysis orders have been placed and dialysis is planned for today. Per patient most likely plans for discharge today. (Betty Rose) Review of Systems Constitutional: COMPLAINS OF: Fatigue Cardiovascular: DENIES: Chest pain, Lower Extremity Edema Musculoskeletal: COMPLAINS OF: Joint pain, Muscle aches, Stiffness, Back pain Psychiatric: COMPLAINS OF: Anxiety, Depression (Betty Rose) Past Family Social History Allergies: Coded Allergies: clarithromycin (Verified Allergy, Severe, swelling of face, 07/08/17) methadone (Verified Allergy, Unknown, HALLUCINATION , 07/08/17) ferrous fumarate (Verified Adverse Reaction, Severe, Constipation, 07/08/17) ferrous sulfate (Verified Adverse Reaction, Severe, Constipation, 07/08/17) ferumoxytol (Verified Adverse Reaction, Severe, Constipation, 07/08/17) iron (Verified Adverse Reaction, Severe, Constipation, 07/08/17) morphine (Verified Adverse Reaction, Severe, 07/08/17) renal insufficiency. multivitamin infusion, adult no.4 with vitamin K (Verified Adverse Reaction, Severe, Constipation, 07/08/17) multivitamin with iron,other minerals (Verified Adverse Reaction, Severe, Constipation, 07/08/17) *MDRO Multi-Drug Resistant Organism (Verified Adverse Reaction, Unknown, VRE, MRSA, MDR-Pseudomonas, 07/08/17) VRE (abdominal wound) - 07/09/16 MDR-Pseudomonas (abdominal wound) - 07/09/16 MRSA (abdomen wound) - 08/28/16 Past Medical History Diabetes Mellitus - uses SSI at home Arthritis ESRD on HD - follows with Dr. Jimenez Chronic wounds - diverting colostomy done for wound care Spinal stenosis Right lower extremity DVT Past Surgical History Tailbone removed Diverting colostomy C Section Cholecystectomy Lap Band Bilateral trigger finger release AV fistula Active Ordered Medications Current Medications Medications (Trade) Dose Ordered Sig/Soren Route Start Time Stop Time Status Last Admin (Ativan) 0.5 mg Q12H PRN PO 07/23/17 19:30 (D50w (Vial) Inj) 50 ml UNSCH PRN IV PUSH 07/23/17 19:30 (Glucagon Inj) 1 mg UNSCH PRN OTHER 07/23/17 19:30 (NovoLOG SUPPLEMENTAL SCALE) 1 ACHS SLIDING SCALE SQ 07/23/17 21:00 (Lipitor) 40 mg HS PO 07/23/17 21:00 07/23/17 22:24 (Tums Chew) 500 mg DAILY PO 07/24/17 09:00 07/24/17 08:32 (Neurontin) 100 mg BID PO 07/23/17 21:00 07/24/17 08:32 (Synthroid) 150 mcg DAILY@0600 PO 07/24/17 06:00 07/24/17 05:51 (Ditropan) 5 mg Q12HR PO 07/23/17 21:00 07/24/17 08:32 (SEROquel) 25 mg BID PO 07/23/17 21:00 07/24/17 08:33 (Zanaflex) 4 mg TID PRN PO 07/23/17 19:30 07/24/17 08:32 Pharmacy Profile Note 0 ml @ 0 mls/hr UNSCH OTHER 07/23/17 20:00 ([place] 10-325 Mg) 1 tab Q4H PRN PO 07/23/17 20:00 07/24/17 05:52 Sodium Chloride 250 ml @ 15 mls/hr ONCE ONCE IV 07/23/17 23:45 07/24/17 16:24 07/24/17 02:44 Sodium Chloride 1,000 ml @ 0 mls/hr Q0M PRN OTHER 07/24/17 06:34 (Heparin Inj) 8,000 units UNSCH PRN IV FLUSH 07/24/17 06:45 Sodium Chloride 1,000 ml @ 200 mls/hr Q5H PRN IV 07/24/17 06:34 Sodium Chloride 1,000 ml @ 0 mls/hr Q0M PRN OTHER 07/24/17 06:34 (Mannitol Inj) 12.5 gm UNSCH PRN IV 07/24/17 06:45 Albumin Human 100 ml @ 60 mls/hr UNSCH PRN IV 07/24/17 06:45 (NS Flush) 5 ml UNSCH PRN IV FLUSH 07/24/17 06:45 07/24/17 08:33 (Heparin Inj) UNSCH PRN .XX 07/24/17 06:45 (Gentamicin Inj) 20 mg UNSCH PRN OTHER 07/24/17 06:45 (Zofran Inj) 4 mg UNSCH PRN IV PUSH 07/24/17 06:45 (Tylenol) 650 mg UNSCH PRN PO 07/24/17 06:45 (Benadryl) 25 mg UNSCH PRN PO 07/24/17 06:45 (Nitrostat Sl) 0.4 mg UNSCH PRN SL 07/24/17 06:45 (Catapres) 0.1 mg UNSCH PRN PO 07/24/17 06:45 (Epogen Inj) 10,000 units UNSCH PRN IV PUSH 07/24/17 06:45 (Gelfoam 12 Mm/7 Mm Top) 1 foam UNSCH PRN TOP 07/24/17 06:45 Family History Father has diabetes mellitus and heart disease Mother with chronic kidney disease . Social History Social History Tobacco: denies Alcohol: denies Lives with 25 y/o son and his girlfriend - she feels like she has very good support from her son (Betty Rose) Physical Exam Vital Signs Vital Signs Date Time Temp Pulse Resp B/P (MAP) Pulse Ox O2 Delivery O2 Flow Rate FiO2 07/24/17 08:22 98.8 107 16 86/42 (57) 97 07/24/17 03:30 85 07/24/17 03:02 99.0 92 18 125/62 100 07/24/17 02:36 99.0 87 18 99/50 96 07/23/17 23:40 99.3 104 18 124/60 (81) 98 07/23/17 22:03 98.4 97 20 103/57 (72) 98 07/23/17 19:05 07/23/17 18:49 98 19 127/60 (82) 99 Room Air 07/23/17 13:18 99.4 103 20 135/73 (93) 99 Physical Exam GENERAL: Alert and oriented SKIN: Warm and dry. Multiple wounds on abdomen and upper left thigh. Permacath placement in right upper chest. HEAD: Normocephalic. EYES: No scleral icterus. No injection or drainage. NECK: Supple, trachea midline. No JVD or lymphadenopathy. CARDIOVASCULAR: Regular rate and rhythm without murmurs, gallops, or rubs. RESPIRATORY: Breath sounds equal bilaterally. No accessory muscle use. GASTROINTESTINAL: Abdomen soft, large, colostomy MUSCULOSKELETAL: No cyanosis, or edema. BACK: Nontender without obvious deformity. No CVA tenderness. Laboratory Laboratory Tests Test 07/23/17 14:40 07/23/17 17:21 07/23/17 22:40 07/24/17 00:22 Prothrombin Time 28.5 Prothromb Time International Ratio 2.8 Activated Partial Thromboplast Time 62.7 Blood Urea Nitrogen 58 Creatinine 5.63 Random Glucose 147 Calcium Level 8.7 Sodium Level 136 Potassium Level 5.2 Chloride Level 103 Carbon Dioxide Level 21.2 Anion Gap 12 Estimat Glomerular Filtration Rate 8 White Blood Count 9.7 Red Blood Count 2.48 Hemoglobin 6.5 Hematocrit 20.4 Mean Corpuscular Volume 82.3 Mean Corpuscular Hemoglobin 26.3 Mean Corpuscular Hemoglobin Concent 31.9 Red Cell Distribution Width 18.9 Platelet Count 328 Mean Platelet Volume 7.6 Neutrophils (%) (Auto) 75.8 Lymphocytes (%) (Auto) 12.9 Monocytes (%) (Auto) 7.7 Eosinophils (%) (Auto) 2.9 Basophils (%) (Auto) 0.7 Neutrophils # (Auto) 7.3 Lymphocytes # (Auto) 1.2 Monocytes # (Auto) 0.7 Eosinophils # (Auto) 0.3 Basophils # (Auto) 0.1 CBC Comment DIFF FINAL Differential Comment (Betty Rose) Result Diagram: 07/23/17 2240 07/23/17 1721 Imaging Last Impressions Lower Extremity CT 07/23/17 0000 Signed Impressions: Service Date/Time: Sunday, July 23, 2017 15:39 - CONCLUSION: 1. Degenerative osteoarthritic changes in both hips without fracture. 2. Colostomy in the paramidline lower abdomen with a periosteal hernia containing a nondilated loop of small bowel. 3. Dense atherosclerotic calcification of the regional vasculature. 4. Reported history of hysterectomy but there appears to be an IUD within the intact uterus. Dane Raymond MD Hip and Pelvis X-Ray 07/23/17 0000 Signed Impressions: Service Date/Time: Sunday, July 23, 2017 14:30 - CONCLUSION: 1. Moderate arthritic changes within the right hip area 2. Advanced atherosclerotic calcification of the pelvic and upper thigh vasculature. Bradly Hope MD (Betty Rose) Assessment and Plan Problem List: (1) ESRD (end stage renal disease) on dialysis ICD Codes: N18.6 - End stage renal disease; Z99.2 - Dependence on renal dialysis Status: Acute Plan: End stage renal disease on Friday, Friday, and Friday Dialysis orders placed for today will remove fluid has tolerated Epogen with dialysis Transfused PRBC for anemia Per patient plans for discharge after dialysis (2) Hyperkalemia ICD Codes: E87.5 - Hyperkalemia Status: Acute Plan: Dialysis ordered for today (3) Symptomatic anemia ICD Codes: D64.9 - Anemia, unspecified Status: Acute Plan: Tranfusion of PRBC's (Betty Rose) Problem List: (1) ESRD (end stage renal disease) on dialysis ICD Codes: N18.6 - End stage renal disease; Z99.2 - Dependence on renal dialysis Status: Acute Plan: End stage renal disease on Friday, Friday, and Friday Dialysis orders placed for today will remove fluid has tolerated Epogen with dialysis Transfused PRBC for anemia Per patient plans for discharge after dialysis. Patient seen and examined, agree with above. (2) Hyperkalemia ICD Codes: E87.5 - Hyperkalemia Status: Acute Plan: Dialysis ordered for today (3) Symptomatic anemia ICD Codes: D64.9 - Anemia, unspecified Status: Acute Plan: Tranfusion of PRBC's (Valentin Jimenez MD) Betty Rose July 24, 2017 08:51 Valentin Jimenez MD July 24, 2017 21:17
[2017-07-24] MEDS ORDERED: CALCIUM CARBONATE 500 MG CHEWABLE TAB PO SCH (09:00)
[2017-07-24 09:45] LABS: HEMATOCRIT 25.9 % (35.0-46.0); HEMOGLOBIN 8.5 GM/DL (11.6-15.3); MEAN CELL VOLUME 82.3 FL (80.0-100.0); MEAN CORPUSCULAR HGB CONC 32.8 % (32.0-36.0); MEAN PLATELET VOLUME 7.6 FL (7.0-11.0); PLATELET COUNT 348 TH/MM3 (150-450); RED BLOOD COUNT 3.14 MIL/MM3 (4.00-5.30); RED CELL DISTRIBUTION WIDTH 17.9 % (11.6-17.2); WHITE BLOOD COUNT 9.6 TH/MM3 (4.0-11.0)
[2017-07-24 10:08] LABS: BICARBONATE 19.2 MEQ/L (21.0-32.0); CALCIUM 8.7 MG/DL (8.5-10.1); CREATININE 5.68 MG/DL (0.50-1.00)
--- NOTE | 2017-07-24 10:27 | HHI.FF ---
Face to Face Verification Diagnosis: (1) End stage kidney disease (2) Symptomatic anemia (3) Chronic stasis dermatitis (4) Chronic back pain (5) Anemia in chronic kidney disease (6) Diabetes (7) Nonhealing nonsurgical wound (8) Immobility (9) Wounds, multiple Physical Therapy Order: Evaluate and Treat, Improve ambulation, Strength and gait training Home Health Nursing Order: Medical education Signs/symptoms of disease process Wound care and dressing changes Nursing assessment with vital signs Home Health Aide Order: To Assist In: Bathing and personal care, media center specialist and meal prep I have seen patient Ana María Foley on 07/24/17. My clinical findings support the need for the requested home health care services because: Ltd mobility - disease progression Deconditioned w/ increased weakness Med compliance is questionable Limited ability to care for self I certify that my clinical findings support that this patient is homebound because: Unsteady gait/balance Unsafe to leave home unassisted Unable to use public transportation Mara Muhammad PA-C July 24, 2017 10:27
[2017-07-24 11:42] VITALS: BP 122/50; PULSE 97; RESP 16; TEMP 98; O2SAT 98
[2017-07-24] MEDS ORDERED: WARFARIN SOD 3 MG TAB PO SCH (16:00)
[2017-07-24] MEDS ORDERED: Epoetin Alfa Inj IV PUSH (16:47)
== END 2017-07-25 05:20 | disposition home health service (06) | DRG 553 ==
LOC: NEPC 12:58 → OBSVTOIN 18:36 → NEDH 18:36 → NEPGCP 19:32
PROVIDERS: ADMIT Hospitalist; ATTEND Hospitalist
PROC: 30233N1 Transfusion of Nonautologous Red Blood Cells into Peripheral Vein, Percutaneous Approach (ICD-10-PCS; principal; 2017-07-24)
PROC: 5A1D70Z Performance of Urinary Filtration, Intermittent, Less than 6 Hours Per Day (ICD-10-PCS; 2017-07-24)
DX: M16.0 Bilateral primary osteoarthritis of hip (principal); N18.6 End stage renal disease; I13.2 Hypertensive heart and chronic kidney disease with heart failure and with stage 5 chronic kidney disease, or end stage renal disease; L89.159 Pressure ulcer of sacral region, unspecified stage; E11.22 Type 2 diabetes mellitus with diabetic chronic kidney disease; N39.0 Urinary tract infection, site not specified; E87.5 Hyperkalemia; E66.01 Morbid (severe) obesity due to excess calories; I50.9 Heart failure, unspecified; E11.42 Type 2 diabetes mellitus with diabetic polyneuropathy; D63.1 Anemia in chronic kidney disease; I25.10 Atherosclerotic heart disease of native coronary artery without angina pectoris; E78.00 Pure hypercholesterolemia, unspecified; M62.838 Other muscle spasm; M48.00 Spinal stenosis, site unspecified; E07.9 Disorder of thyroid, unspecified; G47.30 Sleep apnea, unspecified; F41.9 Anxiety disorder, unspecified; Z68.35 Body mass index [BMI] 35.0-35.9, adult; Z74.01 Bed confinement status; Z79.01 Long term (current) use of anticoagulants; Z79.4 Long term (current) use of insulin; Z83.3 Family history of diabetes mellitus; Z84.1 Family history of disorders of kidney and ureter; Z86.14 Personal history of Methicillin resistant Staphylococcus aureus infection; Z86.718 Personal history of other venous thrombosis and embolism; Z88.1 Allergy status to other antibiotic agents; Z88.5 Allergy status to narcotic agent; Z93.3 Colostomy status; Z95.1 Presence of aortocoronary bypass graft; Z95.5 Presence of coronary angioplasty implant and graft; Z99.2 Dependence on renal dialysis
CPT/HCPCS: 36430; 73502; 73700; 80048; 82948; 84132; 85025; 85027; 85610; 85730; 86850; 86900; 86901; 86920; 90935; 96374; 96375; J1580; J1644; J7050; P9016; Q4081

== ENCOUNTER 2017-07-31 10:54 | Emergency (ER) | payer OTHER ==
[~2017-07-31] VITALS: Ht 158.8 cm; Wt 110.0 kg
[~2017-07-31 10:54] MED LIST changes: +CEFU1TAB20 PO; -COUM4TAB PO; -DOXY1CAP91 PO; +Epoetin Alfa Inj IV PUSH; +WARF4TAB52 PO
[2017-07-31 11:00] VITALS: BP 152/78; PULSE 86; RESP 20; O2SAT 97
--- NOTE | 2017-07-31 12:29 | PD ---
HPI Chief Complaint: Pain: Acute or Chronic Time Seen by Provider: 12:07 Travel History International Travel<30 days: No Contact w/Intl Traveler<30days: No History of Present Illness HPI This is a 56-year-old female with history of end-stage renal disease on dialysis Wednesdays and Fridays, bedbound, chronic pressure ulcers, presents for evaluation. She reports that she has been unable to go to dialysis for the past week secondary to the Katty lift causing her great pain and ripping of skin. She spoke to her inspector poising yesterday who recommended that she come to the emergency room for dialysis. In addition the patient reports that she also had chronic sacral pressure ulcers for the past year over the past few weeks she has had increased pain and redness of the skin to the sacral buttocks region. Her home health care nurse has been applying Desitin cream on a regular basis. She reports that she currently has a home health care nurse come by on Tuesdays and Saturdays. She reports that on the off days her son helps with dressing changes and with turning her. She reports that she lives with her son. Primary care physician is Dr. Velarde. [facility] Past Medical History Hx Anticoagulant Therapy: Yes (WARFARIN ) Arthritis: Yes Asthma: No Autoimmune Disease: No Blood Disorders: No Anxiety: Yes Depression: No Heart Rhythm Problems: No Cancer: No Cardiac Catheterization: Yes (2012) Cardiovascular Problems: Yes (HYPOTENSION, stent) High Cholesterol: Yes Chemotherapy: No Chest Pain: Yes Congestive Heart Failure: Yes COPD: No Cerebrovascular Accident: No Coronary Artery Disease: Yes Diabetes: Yes Patient Takes Glucophage: No Dialysis: Yes (M,W,F) Diminished Hearing: No Endocrine: Yes Gastrointestinal Disorders: Yes (LAP BAND stopped working few yrs ago) GERD: No Genitourinary: Yes (Dialysis M,W,F) Hiatal Hernia: No Hypertension: Yes Immune Disorder: No Implanted Vascular Access Dvce: Yes (FISTULA, VASCATH) Kidney Stones: No Medical other: Yes (LEFT LOWER ARM FISTULA) Musculoskeletal: Yes (DB NEUROPATHY) Neurologic: No Psychiatric: Yes Reproductive: Yes Respiratory: Yes Immunizations Current: Yes Migraines: No Radiation Therapy: No Renal Failure: Yes Seizures: No Sickle Cell Disease: No Sleep Apnea: No Thyroid Disease: Yes Triglycerides - High: Yes Ulcer: No Tetanus Vaccination: Unknown Influenza Vaccination: No Menopausal: Yes : 1 Para: 1 Past Surgical History Abdominal Surgery: Yes (ABD WOUND for friction, COLOSTOMY, cholcystecomy, ) AICD: No Arteriovenous Shunt: Yes (AV FISTULA LEFT , VAS CATH RIGHT CHEST) Body Medical Devices: av fistula/ heart stents Cardiac Surgery: No Section: Yes (X 1) Cholecystectomy: Yes (1996) Coronary Artery Bypass Graft: Yes Coronary Stent: Yes (x1 June 2012) Ear Surgery: No Endocrine Surgery: No Eye Surgery: No Genitourinary Surgery: No Hysterectomy: Yes Insulin Pump: No Joint Replacement: No Neurologic Surgery: No Oral Surgery: Yes (T&A) Pacemaker: No Thoracic Surgery: No Tonsillectomy: Yes Other Surgery: Yes (LAP BAND, VAS CATH R CHEST , L ARM FISTULA ) Social History Alcohol Use: No Tobacco Use: No Substance Use: No Allergies-Medications (Allergen,Severity, Reaction): Coded Allergies: clarithromycin (Verified Allergy, Severe, swelling of face, 07/08/17) methadone (Verified Allergy, Unknown, HALLUCINATION , 07/08/17) ferrous fumarate (Verified Adverse Reaction, Severe, Constipation, 07/08/17) ferrous sulfate (Verified Adverse Reaction, Severe, Constipation, 07/08/17) ferumoxytol (Verified Adverse Reaction, Severe, Constipation, 07/08/17) iron (Verified Adverse Reaction, Severe, Constipation, 07/08/17) morphine (Verified Adverse Reaction, Severe, 07/08/17) renal insufficiency. multivitamin infusion, adult no.4 with vitamin K (Verified Adverse Reaction, Severe, Constipation, 07/08/17) multivitamin with iron,other minerals (Verified Adverse Reaction, Severe, Constipation, 07/08/17) *MDRO Multi-Drug Resistant Organism (Verified Adverse Reaction, Unknown, VRE, MRSA, MDR-Pseudomonas, 07/08/17) VRE (abdominal wound) - 07/09/16 MDR-Pseudomonas (abdominal wound) - 07/09/16 MRSA (abdomen wound) - 08/28/16 Reported Meds & Prescriptions Reported Meds & Active Scripts Active Nystatin Topical 100,000 unit/gm Oint 1 Applic TOPICAL Q12HR [Epoetin Porter Inj] 72949 UNITS/ML Inj 10,000 Units IV PUSH UNSCH PRN 30 Days Hydrocodone-Acetamin 10-325 mg (Hydrocodone/Acetaminophen) 10 Mg-325 Mg Tablet 1 Tab PO Q6H PRN Reported Cefuroxime (Cefuroxime Axetil) 500 Mg Tab 500 Mg PO BID Warfarin 1 Mg Tab 3 Mg PO DAILY Vancomycin Inj (Vancomycin HCl) 1 Gram Inj 1 Gm IV DURING DIALYSIS Voltaren (Diclofenac Sodium) 1 % Gel..gram. 1 Applic TOPICAL DAILY PRN Lidocaine Topical (Lidocaine HCl) 2 % Jel 1 Applic TOPICAL DAILY PRN Novolog Inj (Insulin Aspart) 1,000 Unit/10 Ml Vial 0 SQ DIRECTED Sliding Scale as directed. Tums (Calcium Carbonate (Antacid)) 500 Mg Chew 500 Mg PO DAILY Ativan (Lorazepam) 0.5 Mg Tab 0.5 Mg PO BID Quetiapine (Quetiapine Fumarate) 25 Mg Tab 25 Mg PO BID Ditropan (Oxybutynin Chloride) 5 Mg Tab 5 Mg PO Q12HR Tizanidine (Tizanidine HCl) 4 Mg Cap 4 Mg PO TID PRN Levothyroxine (Levothyroxine Sodium) 150 Mcg Tab 150 Mcg PO DAILY Atorvastatin (Atorvastatin Calcium) 40 Mg Tab 40 Mg PO HS Gabapentin 100 Mg Cap 100 Mg PO BID Review of Systems Except as stated in HPI: all other systems reviewed are Neg Physical Exam Narrative GENERAL: Morbidly obese female in no acute distress SKIN: Warm and dry. Stage IV sacral pressure ulcer noted. There is large amount of macerated surrounding skin. Wounds noted on the flanks as well as the abdomen. HEAD: Atraumatic. Normocephalic. EYES: Pupils equal and round. No scleral icterus. No injection or drainage. ENT: No nasal bleeding or discharge. Mucous membranes pink and moist. NECK: Trachea midline. No JVD. CARDIOVASCULAR: Regular rate and rhythm. No murmur appreciated. RESPIRATORY: No accessory muscle use. Clear to auscultation. Breath sounds equal bilaterally. GASTROINTESTINAL: Abdomen soft, non-tender, nondistended. Hepatic and splenic margins not palpable. Colostomy noted. Ruiz catheter in place. MUSCULOSKELETAL: No obvious deformities. No clubbing. No cyanosis. No edema. NEUROLOGICAL: Awake and alert. No obvious cranial nerve deficits. Motor grossly within normal limits. Normal speech. Data Data Last Documented VS Vital Signs Date Time Temp Pulse Resp B/P (MAP) Pulse Ox O2 Delivery O2 Flow Rate FiO2 07/31/17 11:00 86 20 152/78 (102) 97 Orders Orders Complete Blood Count With Diff (07/31/17 11:22) Blood Glucose (07/31/17 11:22) Comprehensive Metabolic Panel (07/31/17 11:22) Iv Access Insert/Monitor (07/31/17 11:22) Electrocardiogram (07/31/17 ) Phosphorus (Po4) (07/31/17 12:22) Magnesium (Mg) (07/31/17 12:22) Nystatin Cream (Mycostatin Cream) (07/31/17 12:30) Zinc Oxide 40% Oint (Desitin 40% Oint) (07/31/17 12:30) Coag Profile (07/31/17 12:22) Consult Nephrology (07/31/17 ) Oxycodone-Acetamin 5-325 Mg (Percocet (07/31/17 14:00) (Hub Use Only)Inp Phy Cons/Ref (07/31/17 ) (Hub Use Only)Inp Phy Cons/Ref (07/31/17 ) Blood Flow Rate (07/31/17 16:04) Dialysate Flow Rate (07/31/17 16:04) Dialyzer (07/31/17 16:04) Concentrate (07/31/17 16:04) Acid Concentrate (07/31/17 16:04) Length Of Dialysis (07/31/17 16:04) Frequency Of Dialysis (07/31/17 16:04) Dialysis Obtain (07/31/17 16:04) Needle Size (07/31/17 16:04) Dialysis Schedule (07/31/17 16:04) Resp Oxygen Bryan C Titrat 1-4 L (07/31/17 ) Dialysis Weight (07/31/17 16:04) ^ Obtain As Needed (07/31/17 16:04) Sodium Chlor 0.9% 1000 Ml Inj (Ns 1000 M (07/31/17 16:04) Heparin Inj (Heparin Inj) (07/31/17 16:15) Sodium Chlor 0.9% 1000 Ml Inj (Ns 1000 M (07/31/17 16:04) Sodium Chlor 0.9% 1000 Ml Inj (Ns 1000 M (07/31/17 16:04) Mannitol Inj (Mannitol Inj) (07/31/17 16:15) Albumin 25% Inj (Albumin 25% Inj) (07/31/17 16:15) Sodium Chloride 0.9% Flush (Ns Flush) (07/31/17 16:15) Heparin Inj (Heparin Inj) (07/31/17 16:15) Gentamicin Inj (Gentamicin Inj) (07/31/17 16:15) Acetaminophen (Tylenol) (07/31/17 16:15) Diphenhydramine (Benadryl) (07/31/17 16:15) Nitroglycerin Sl (Nitrostat Sl) (07/31/17 16:15) Clonidine (Catapres) (07/31/17 16:15) Epoetin Porter Inj (Epogen Inj) (07/31/17 16:15) Gelatin 12 Mm/7 Mm Top (Gelfoam 12 Mm/7 (07/31/17 16:15) Ondansetron Odt (Zofran Odt) (07/31/17 17:30) Labs Laboratory Tests Test 07/31/17 12:10 White Blood Count 7.3 TH/MM3 Red Blood Count 3.21 MIL/MM3 Hemoglobin 8.3 GM/DL Hematocrit 26.7 % Mean Corpuscular Volume 83.1 FL Mean Corpuscular Hemoglobin 25.9 PG Mean Corpuscular Hemoglobin Concent 31.1 % Red Cell Distribution Width 18.8 % Platelet Count 378 TH/MM3 Mean Platelet Volume 7.4 FL Neutrophils (%) (Auto) 81.3 % Lymphocytes (%) (Auto) 11.0 % Monocytes (%) (Auto) 3.6 % Eosinophils (%) (Auto) 3.2 % Basophils (%) (Auto) 0.9 % Neutrophils # (Auto) 6.0 TH/MM3 Lymphocytes # (Auto) 0.8 TH/MM3 Monocytes # (Auto) 0.3 TH/MM3 Eosinophils # (Auto) 0.2 TH/MM3 Basophils # (Auto) 0.1 TH/MM3 CBC Comment DIFF FINAL Differential Comment Prothrombin Time 28.8 SEC Prothromb Time International Ratio 2.9 RATIO Activated Partial Thromboplast Time 60.5 SEC Blood Urea Nitrogen 64 MG/DL Creatinine 5.89 MG/DL Random Glucose 97 MG/DL Total Protein 7.2 GM/DL Albumin 1.9 GM/DL Calcium Level 8.6 MG/DL Alkaline Phosphatase 140 U/L Aspartate Amino Transf (AST/SGOT) 60 U/L Alanine Aminotransferase (ALT/SGPT) 31 U/L Total Bilirubin 0.2 MG/DL Sodium Level 138 MEQ/L Potassium Level 4.9 MEQ/L Chloride Level 103 MEQ/L Carbon Dioxide Level 21.6 MEQ/L Anion Gap 13 MEQ/L Estimat Glomerular Filtration Rate 7 ML/MIN MDM Medical Decision Making Medical Screen Exam Complete: Yes Emergency Medical Condition: Yes Medical Record Reviewed: Yes Differential Diagnosis Missed dialysis versus hyperkalemia versus end-stage renal disease versus intertrigo versus pressure ulcer versus cellulitis versus osteomyelitis Narrative Course Lab work is obtained. Nystatin and Desitin cream ordered for her intertrigo changes on her buttocks. Lab work is been reviewed and found to be reassuring. I discussed with who set her up for dialysis while she was here. I discussed the case several times with the child support case officer [place] who spoke with her primary care physician and her inspector poising and her [facility] child support case officer and ultimately was able to set her up with home dialysis. This will be ordered by her inspector poising. Therefore the patient will be discharged after she has completed dialysis today. Diagnosis Primary Impression: End stage renal disease on dialysis Additional Impression: Intertrigo Additional Instructions: As discussed, your inspector poising will be setting up from dialysis. Keep in contact with his office. Aggressive wound care on a daily basis. Return for any emergent medical conditions. Med/Other Pt SpecificInfo: Prescription(s) given Scripts Nystatin Topical (Nystatin Topical) 100,000 unit/gm Oint 1 APPLIC TOPICAL Q12HR for Infection, #30 GM 2 Refills Prov: Carol Gandhi MD 07/31/17 Disposition: DISCHARGE HOME Condition: Stable Dallas Meyers July 31, 2017 12:29
[2017-07-31] MEDS ORDERED: NYSTATIN 100,000 UNIT/GM CREAM 15 GM TOPICAL ONE (12:30)
[2017-07-31] MEDS ORDERED: ZINC OXIDE 40% OINT 60 GM TUBE TOPICAL ONE (12:30)
[2017-07-31 12:55] LABS: BASOPHIL # 0.1 TH/MM3 (0-0.2); BASOPHIL % 0.9 % (0.0-2.0); EOSINOPHIL # 0.2 TH/MM3 (0-0.4); EOSINOPHIL % 3.2 % (0.0-4.0); HEMATOCRIT 26.7 % (35.0-46.0); HEMOGLOBIN 8.3 GM/DL (11.6-15.3); LYMPHOCYTE # 0.8 TH/MM3 (1.0-4.8); MEAN CELL VOLUME 83.1 FL (80.0-100.0); MEAN CORPUSCULAR HEMOGLOBIN 25.9 PG (27.0-34.0); MEAN CORPUSCULAR HGB CONC 31.1 % (32.0-36.0); MEAN PLATELET VOLUME 7.4 FL (7.0-11.0); MONO % 3.6 % (0.0-8.0); MONOCYTE # 0.3 TH/MM3 (0-0.9); NEUT % 81.3 % (16.0-70.0); PLATELET COUNT 378 TH/MM3 (150-450); RED BLOOD COUNT 3.21 MIL/MM3 (4.00-5.30); RED CELL DISTRIBUTION WIDTH 18.8 % (11.6-17.2); WHITE BLOOD COUNT 7.3 TH/MM3 (4.0-11.0)
[2017-07-31 13:06] LABS: INTERNATIONAL NORMALIZED RATIO 2.9 RATIO; PROTHROMBIN TIME - PATIENT 28.8 SEC (9.8-11.6)
[2017-07-31 13:18] LABS: ALBUMIN 1.9 GM/DL (3.4-5.0); ALT (GPT) 31 U/L (10-53); AST (GOT) 60 U/L (15-37); BICARBONATE 21.6 MEQ/L (21.0-32.0); BLOOD UREA NITROGEN 64 MG/DL (7-18); CALCIUM 8.6 MG/DL (8.5-10.1); CHLORIDE 103 MEQ/L (98-107); CREATININE 5.89 MG/DL (0.50-1.00); GLOMERULAR FILTRATION RATE 7 ML/MIN (>89); GLUCOSE,RANDOM 97 MG/DL (74-106); SODIUM (NA) 138 MEQ/L (136-145)
[2017-07-31 13:20] LABS: ALKALINE PHOSPHATASE 140 U/L (45-117); TOTAL BILIRUBIN ADULT 0.2 MG/DL (0.2-1.0); TOTAL PROTEIN 7.2 GM/DL (6.4-8.2)
[2017-07-31] MEDS ORDERED: oxyCODONE/ACETAMINOPHEN 5 MG/325 MG TAB PO ONE (14:00)
[2017-07-31] MEDS ORDERED: SODIUM CHLOR 0.9% 1000 ML INJ 1,000 ML IV PRN (16:04)
[2017-07-31] MEDS ORDERED: SODIUM CHLOR 0.9% 1000 ML INJ 1,000 ML OTHER PRN ×2 (16:04)
[2017-07-31] MEDS ORDERED: EPOETIN ALFA 10,000 UNITS/ML VIAL IV PUSH PRN (16:15)
[2017-07-31] MEDS ORDERED: MANNITOL 12.5 GM/50 ML VIAL IV PRN (16:15)
[2017-07-31] MEDS ORDERED: ALBUMIN 25% INJ 100 ML IV PRN (16:15)
[2017-07-31] MEDS ORDERED: NITROGLYCERIN 0.4 MG SL 25 TABS/BTL SL PRN (16:15)
[2017-07-31] MEDS ORDERED: SODIUM CHLORIDE 0.9% FLUSH 10 ML FLUSH IV FLUSH PRN (16:15)
[2017-07-31] MEDS ORDERED: cloNIDine HCL 0.1 MG TAB PO PRN (16:15)
[2017-07-31] MEDS ORDERED: HEPARIN SODIUM - IV 10,000 UNITS/10 ML VIAL IV FLUSH PRN (16:15)
[2017-07-31] MEDS ORDERED: HEPARIN SODIUM - IV 10,000 UNITS/10 ML VIAL PRN (16:15)
[2017-07-31] MEDS ORDERED: ACETAMINOPHEN 325 MG TAB PO PRN (16:15)
[2017-07-31] MEDS ORDERED: GENTAMICIN SULFATE 20 MG/2 ML VIAL OTHER PRN (16:15)
[2017-07-31] MEDS ORDERED: GELATIN 12 MM/7 MM FOAM TOP PRN (16:15)
[2017-07-31] MEDS ORDERED: diphenhydrAMINE HCL 25 MG CAP PO PRN (16:15)
--- NOTE | 2017-07-31 16:19 | PD.CONS ---
HPI Service Nephrology Consult Requested By Dr Meyers Reason for Consult ESRD on hemodialysis Primary Care Physician Aline Velarde MD History of Present Illness Patient is a 56-year-old female with a history of diabetes mellitus, arthritis, end-stage renal disease on hemodialysis, chronic wounds, spinal stenosis, and hx of right lower extremity DVT. Presented to the emergency room for dialysis via [facility] because she is unable to use her tariq lift secondary to worsening wounds, she has missed many scheduled dialysis days this month. She is followed by wound care output 3 X week at home. Nephrology is consulted for management of end stage renal disease on hemodialysis. Dialysis days are Friday , Friday, and Friday and compliance has been a issue due to multiple issues including pain, having to be left in wheel chair for extended periods of time and not having help getting back in to bed because son works, and wounds. Dialysis today. (Betty Rose) Review of Systems Constitutional: COMPLAINS OF: Fatigue Respiratory: DENIES: Shortness of breath Cardiovascular: DENIES: Chest pain, Palpitations, Lower Extremity Edema Gastrointestinal: DENIES: Constipation, Diarrhea, Nausea, Vomiting Musculoskeletal: COMPLAINS OF: Back pain Integumentary: COMPLAINS OF: Rash Psychiatric: COMPLAINS OF: Anxiety, Depression (Betty Rose) Past Family Social History Allergies: Coded Allergies: clarithromycin (Verified Allergy, Severe, swelling of face, 07/08/17) methadone (Verified Allergy, Unknown, HALLUCINATION , 07/08/17) ferrous fumarate (Verified Adverse Reaction, Severe, Constipation, 07/08/17) ferrous sulfate (Verified Adverse Reaction, Severe, Constipation, 07/08/17) ferumoxytol (Verified Adverse Reaction, Severe, Constipation, 07/08/17) iron (Verified Adverse Reaction, Severe, Constipation, 07/08/17) morphine (Verified Adverse Reaction, Severe, 07/08/17) renal insufficiency. multivitamin infusion, adult no.4 with vitamin K (Verified Adverse Reaction, Severe, Constipation, 07/08/17) multivitamin with iron,other minerals (Verified Adverse Reaction, Severe, Constipation, 07/08/17) *MDRO Multi-Drug Resistant Organism (Verified Adverse Reaction, Unknown, VRE, MRSA, MDR-Pseudomonas, 07/08/17) VRE (abdominal wound) - 07/09/16 MDR-Pseudomonas (abdominal wound) - 07/09/16 MRSA (abdomen wound) - 08/28/16 Past Medical History Diabetes Mellitus - uses SSI at home Arthritis ESRD on HD - follows with Dr. Jimenez Chronic wounds - diverting colostomy done for wound care Spinal stenosis Right lower extremity DVT Past Surgical History Tailbone removed Diverting colostomy C Section Cholecystectomy Lap Band Bilateral trigger finger release AV fistula Active Ordered Medications Current Medications Medications (Trade) Dose Ordered Sig/Soren Route Start Time Stop Time Status Last Admin Sodium Chloride 1,000 ml @ 0 mls/hr Q0M PRN OTHER 07/31/17 16:04 UNV (Heparin Inj) 8,000 units UNSCH PRN IV FLUSH 07/31/17 16:15 UNV Sodium Chloride 1,000 ml @ 200 mls/hr Q5H PRN IV 07/31/17 16:04 UNV Sodium Chloride 1,000 ml @ 0 mls/hr Q0M PRN OTHER 07/31/17 16:04 UNV (Mannitol Inj) 12.5 gm UNSCH PRN IV 07/31/17 16:15 UNV Albumin Human 100 ml @ 60 mls/hr UNSCH PRN IV 07/31/17 16:15 UNV (NS Flush) 5 ml UNSCH PRN IV FLUSH 07/31/17 16:15 UNV (Heparin Inj) UNSCH PRN .XX 07/31/17 16:15 UNV (Gentamicin Inj) 20 mg UNSCH PRN OTHER 07/31/17 16:15 UNV (Zofran Inj) 4 mg UNSCH PRN IV PUSH 07/31/17 16:15 UNV (Tylenol) 650 mg UNSCH PRN PO 07/31/17 16:15 UNV (Benadryl) 25 mg UNSCH PRN PO 07/31/17 16:15 UNV (Nitrostat Sl) 0.4 mg UNSCH PRN SL 07/31/17 16:15 UNV (Catapres) 0.1 mg UNSCH PRN PO 07/31/17 16:15 UNV (Epogen Inj) 6,000 units UNSCH PRN IV PUSH 07/31/17 16:15 UNV (Gelfoam 12 Mm/7 Mm Top) 1 foam UNSCH PRN TOP 07/31/17 16:15 UNV Family History Father has diabetes mellitus and heart disease Mother with chronic kidney disease . Social History Tobacco: denies Alcohol: denies Lives with 25 y/o son and his girlfriend - she feels like she has very good support from her son (MiltonBetty WheatFitz ELLIOTT) Physical Exam Vital Signs Vital Signs Date Time Temp Pulse Resp B/P (MAP) Pulse Ox O2 Delivery O2 Flow Rate FiO2 07/31/17 11:00 86 20 152/78 (102) 97 Physical Exam GENERAL: Alert and oriented. Tearful and emotional during discussion SKIN: Warm and dry. Multiple wounds on abdomen, upper legs. Rash on back and buttocks. Permacath right IJ HEAD: Normocephalic. EYES: No scleral icterus. No injection or drainage. NECK: Supple, trachea midline. No JVD or lymphadenopathy. CARDIOVASCULAR: Regular rate and rhythm without murmurs, gallops, or rubs. RESPIRATORY: Breath sounds equal bilaterally. No accessory muscle use. GASTROINTESTINAL: Abdomen soft, non-tender. Colostomy MUSCULOSKELETAL: No cyanosis, or edema. BACK: Nontender without obvious deformity. No CVA tenderness. Laboratory Laboratory Tests Test 07/31/17 12:10 White Blood Count 7.3 Red Blood Count 3.21 Hemoglobin 8.3 Hematocrit 26.7 Mean Corpuscular Volume 83.1 Mean Corpuscular Hemoglobin 25.9 Mean Corpuscular Hemoglobin Concent 31.1 Red Cell Distribution Width 18.8 Platelet Count 378 Mean Platelet Volume 7.4 Neutrophils (%) (Auto) 81.3 Lymphocytes (%) (Auto) 11.0 Monocytes (%) (Auto) 3.6 Eosinophils (%) (Auto) 3.2 Basophils (%) (Auto) 0.9 Neutrophils # (Auto) 6.0 Lymphocytes # (Auto) 0.8 Monocytes # (Auto) 0.3 Eosinophils # (Auto) 0.2 Basophils # (Auto) 0.1 CBC Comment DIFF FINAL Differential Comment Prothrombin Time 28.8 Prothromb Time International Ratio 2.9 Activated Partial Thromboplast Time 60.5 Blood Urea Nitrogen 64 Creatinine 5.89 Random Glucose 97 Total Protein 7.2 Albumin 1.9 Calcium Level 8.6 Alkaline Phosphatase 140 Aspartate Amino Transf (AST/SGOT) 60 Alanine Aminotransferase (ALT/SGPT) 31 Total Bilirubin 0.2 Sodium Level 138 Potassium Level 4.9 Chloride Level 103 Carbon Dioxide Level 21.6 Anion Gap 13 Estimat Glomerular Filtration Rate 7 (Betty Rose) Result Diagram: 07/31/17 1210 07/31/17 1210 Assessment and Plan Problem List: (1) End stage kidney disease ICD Codes: N18.6 - End stage renal disease Status: Chronic Plan: End stage renal disease on Friday, Friday, and Friday hemodialysis day Has missed my scheduled dialysis days this month. Dialysis orders placed for today will remove fluid has tolerated Epogen with dialysis, hgb at 8.3 (Betty Rose) Problem List: (1) End stage kidney disease ICD Codes: N18.6 - End stage renal disease Status: Chronic Plan: End stage renal disease on Friday, Friday, and Friday hemodialysis day Has missed my scheduled dialysis days this month. Dialysis orders placed for today will remove fluid has tolerated Epogen with dialysis, hgb at 8.3. Patient seen and examine during HD, agree with above. To continue HD as out patient. (Valentin Jimenez MD) Betty Rose July 31, 2017 16:19 Valentin Jimenez MD August 01, 2017 00:23
[2017-07-31] MEDS ORDERED: ONDANSETRON ODT 4 MG TAB PO PRN (17:30)
[2017-07-31] MEDS ORDERED: NYST100084 TOPICAL (18:40)
[2017-07-31 23:12] LABS: MAGNESIUM 1.7 MG/DL (1.5-2.5); PHOSPHORUS 6.3 MG/DL (2.5-4.9)
--- NOTE | 2017-08-01 07:17 | EKG ---
Date Performed: 07/31/2017 Time Performed: 11:48:55 PTAGE: 56 years EKG: Sinus rhythm INDETERMINATE AXIS RIGHT BUNDLE BRANCH BLOCK LEFT ANTERIOR FASCICULAR BLOCK ABNORMAL ECG PREVIOUS TRACING : 07/08/2017 13.21 DOCTOR: Nito La Interpretating Date/Time 08/01/2017 07:16:17
--- NOTE | 2017-08-02 14:00 | PD ---
Data Data Last Documented VS Vital Signs Date Time Temp Pulse Resp B/P (MAP) Pulse Ox O2 Delivery O2 Flow Rate FiO2 07/31/17 11:00 86 20 152/78 (102) 97 Orders Orders Complete Blood Count With Diff (07/31/17 11:22) Blood Glucose (07/31/17 11:22) Comprehensive Metabolic Panel (07/31/17 11:22) Iv Access Insert/Monitor (07/31/17 11:22) Electrocardiogram (07/31/17 ) Phosphorus (Po4) (07/31/17 12:22) Magnesium (Mg) (07/31/17 12:22) Nystatin Cream (Mycostatin Cream) (07/31/17 12:30) Zinc Oxide 40% Oint (Desitin 40% Oint) (07/31/17 12:30) Coag Profile (07/31/17 12:22) Consult Nephrology (07/31/17 ) Oxycodone-Acetamin 5-325 Mg (Percocet (07/31/17 14:00) (Hub Use Only)Inp Phy Cons/Ref (07/31/17 ) (Hub Use Only)Inp Phy Cons/Ref (07/31/17 ) Blood Flow Rate (07/31/17 16:04) Dialysate Flow Rate (07/31/17 16:04) Dialyzer (07/31/17 16:04) Concentrate (07/31/17 16:04) Acid Concentrate (07/31/17 16:04) Length Of Dialysis (07/31/17 16:04) Frequency Of Dialysis (07/31/17 16:04) Dialysis Obtain (07/31/17 16:04) Needle Size (07/31/17 16:04) Dialysis Schedule (07/31/17 16:04) Resp Oxygen Bryan C Titrat 1-4 L (07/31/17 ) Dialysis Weight (07/31/17 16:04) ^ Obtain As Needed (07/31/17 16:04) Sodium Chlor 0.9% 1000 Ml Inj (Ns 1000 M (07/31/17 16:04) Heparin Inj (Heparin Inj) (07/31/17 16:15) Sodium Chlor 0.9% 1000 Ml Inj (Ns 1000 M (07/31/17 16:04) Sodium Chlor 0.9% 1000 Ml Inj (Ns 1000 M (07/31/17 16:04) Mannitol Inj (Mannitol Inj) (07/31/17 16:15) Albumin 25% Inj (Albumin 25% Inj) (07/31/17 16:15) Sodium Chloride 0.9% Flush (Ns Flush) (07/31/17 16:15) Heparin Inj (Heparin Inj) (07/31/17 16:15) Gentamicin Inj (Gentamicin Inj) (07/31/17 16:15) Acetaminophen (Tylenol) (07/31/17 16:15) Diphenhydramine (Benadryl) (07/31/17 16:15) Nitroglycerin Sl (Nitrostat Sl) (07/31/17 16:15) Clonidine (Catapres) (07/31/17 16:15) Epoetin Porter Inj (Epogen Inj) (07/31/17 16:15) Gelatin 12 Mm/7 Mm Top (Gelfoam 12 Mm/7 (07/31/17 16:15) Ondansetron Odt (Zofran Odt) (07/31/17 17:30) Ed Discharge Order (07/31/17 19:46) Labs Laboratory Tests Test 07/31/17 12:10 White Blood Count 7.3 TH/MM3 Red Blood Count 3.21 MIL/MM3 Hemoglobin 8.3 GM/DL Hematocrit 26.7 % Mean Corpuscular Volume 83.1 FL Mean Corpuscular Hemoglobin 25.9 PG Mean Corpuscular Hemoglobin Concent 31.1 % Red Cell Distribution Width 18.8 % Platelet Count 378 TH/MM3 Mean Platelet Volume 7.4 FL Neutrophils (%) (Auto) 81.3 % Lymphocytes (%) (Auto) 11.0 % Monocytes (%) (Auto) 3.6 % Eosinophils (%) (Auto) 3.2 % Basophils (%) (Auto) 0.9 % Neutrophils # (Auto) 6.0 TH/MM3 Lymphocytes # (Auto) 0.8 TH/MM3 Monocytes # (Auto) 0.3 TH/MM3 Eosinophils # (Auto) 0.2 TH/MM3 Basophils # (Auto) 0.1 TH/MM3 CBC Comment DIFF FINAL Differential Comment Prothrombin Time 28.8 SEC Prothromb Time International Ratio 2.9 RATIO Activated Partial Thromboplast Time 60.5 SEC Blood Urea Nitrogen 64 MG/DL Creatinine 5.89 MG/DL Random Glucose 97 MG/DL Total Protein 7.2 GM/DL Albumin 1.9 GM/DL Calcium Level 8.6 MG/DL Alkaline Phosphatase 140 U/L Aspartate Amino Transf (AST/SGOT) 60 U/L Alanine Aminotransferase (ALT/SGPT) 31 U/L Total Bilirubin 0.2 MG/DL Sodium Level 138 MEQ/L Potassium Level 4.9 MEQ/L Chloride Level 103 MEQ/L Carbon Dioxide Level 21.6 MEQ/L Anion Gap 13 MEQ/L Estimat Glomerular Filtration Rate 7 ML/MIN Phosphorus Level 6.3 MG/DL Magnesium Level 1.7 MG/DL MDM Supervised Visit with RONNIE: Yes Narrative Course The history, exam, and medical decision-making in the associated midlevel provider note were completed with my assistance. I reviewed and agree with the findings presented. I attest that I had a [id number] encounter with the patient on the same day, and personally performed and documented my assessment and findings in the medical record. *My assessment and Findings: This is a 56-year-old female who presents to the emergency department having missed dialysis for 1 week. She has chronic wounds and is unable to tolerate a Katty lift transfer that she requires to get to dialysis. Her labs are reassuring with a normal potassium. Case management did not intensive intervention in this patient and was able to coordinate home health care with home dialysis. Patient was dialyzed in the emergency department and then subsequently discharged home. Diagnosis Primary Impression: End stage renal disease on dialysis Additional Impression: Intertrigo Patient Instructions: General Instructions, End Stage Kidney Disease (ED), Skin Yeast Infection (ED) Departure Forms: Tests/Procedures Additional Instruction: As discussed, your insecticide supervisor will be setting up from dialysis. Keep in contact with his office. Aggressive wound care on a daily basis. Return for any emergent medical conditions. Scripts Nystatin Topical (Nystatin Topical) 100,000 unit/gm Oint 1 APPLIC TOPICAL Q12HR for Infection, #30 GM 2 Refills Prov: Carol Gandhi MD 07/31/17 Disposition: 01 DISCHARGE HOME Condition: Stable Carol Gandhi MD August 02, 2017 14:00
== END 2017-07-31 20:32 | disposition home or self-care (01) ==
LOC: NEPC 10:54 → NEDAMB 20:32
DX: E11.22 Type 2 diabetes mellitus with diabetic chronic kidney disease (principal); N18.6 End stage renal disease; L30.4 Erythema intertrigo; M19.90 Unspecified osteoarthritis, unspecified site; E78.00 Pure hypercholesterolemia, unspecified; I25.10 Atherosclerotic heart disease of native coronary artery without angina pectoris; I13.2 Hypertensive heart and chronic kidney disease with heart failure and with stage 5 chronic kidney disease, or end stage renal disease; R79.89 Other specified abnormal findings of blood chemistry; I50.9 Heart failure, unspecified; Z99.2 Dependence on renal dialysis; Z79.01 Long term (current) use of anticoagulants; Z86.718 Personal history of other venous thrombosis and embolism; Z95.1 Presence of aortocoronary bypass graft; Z95.5 Presence of coronary angioplasty implant and graft
CPT/HCPCS: 80053; 82948; 83735; 84100; 85025; 85610; 85730; 90935; 93005; 96374; 96375; 99284; J1580; J1644; Q4081

== ENCOUNTER 2017-08-05 18:45 | Emergency (ER) | payer OTHER ==
[~2017-08-05] VITALS: Ht 167.6 cm; Wt 110.0 kg
[~2017-08-05 18:45] MED LIST changes: +NYST100084 TOPICAL
[2017-08-05 18:51] VITALS: BP 147/78; PULSE 100; RESP 20; TEMP 98.3; O2SAT 99
[2017-08-05 19:24] VITALS: O2SAT 100
--- NOTE | 2017-08-05 19:28 | PD ---
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 The patient reports that this is the first time that this is happened since she had a diverting colostomy for chronic ulcers on the buttock area. The patient reports that she had a colostomy done 8 months ago. She reports that she is also had a chronic Ruiz catheter placed because of this. The patient reports that she lives with her son. The patient has home healthcare that comes out on Friday, , and Friday. She reports that home health came out today and changed all of her dressings and was also able to assist with cleaning her up when she had a bowel movement at that time, however she had another bowel movement after they left. She reports that Elder sources also coming out to further assist her with her care at home. She reports that since being in the hospital this past week she is in the process of being set up for hemodialysis at home. She reports that this was supposed to occur today, however she called them and they plan to set it up for tomorrow. She reports that her last hemodialysis was on Friday. She reports that she normally gets her hemodialysis on Friday, Friday, and Friday. The patient's primary care physician is Dr. Velarde. The patient's senior electronics design engineer is Dr. Jimenez. The patient reports that she has had her usual stool output from her colostomy throughout the day today. She reports that her stool is brown in color. She denies having any blood in her stool or black or tarry stools. The patient is currently anticoagulated on Coumadin for history of DVT in the right lower extremity. She is unsure exactly when she last had her INR checked. On review of systems otherwise, the patient denies having any known recent fevers, cough or congestion, neck pain, chest pain, shortness of breath, abdominal pain , vomiting, diarrhea, urinary symptoms, or neurologic symptoms. Patient's only other complaint today is her chronic pain in her right hip. This was recently extensively worked up with CT scan imaging in no acute abnormality was noted. The patient is on [place] 10 mg for the pain, she reports that she last took this at 3 PM and is requesting another tablet currently. The patient reports that she is currently on antibiotic that she gets administered during hemodialysis related to a chronic urinary tract infection and chronic infection of her wounds. [facility] Past Medical History Narrative Medical The patient's past medical history is significant for diabetes mellitus, arthritis, chronic renal failure on dialysis on Friday, Friday, Friday, history of chronic wounds the buttock areas and extremities status post diverting colostomy, chronic indwelling Ruiz catheter placement to prevent soiling in the area, spinal stenosis, right lower extremity DVT, history of a heart murmur, history of coronary artery disease status post stent placement, hypertension, hyperlipidemia, and hypothyroid disorder. Hx Anticoagulant Therapy: Yes (WARFARIN ) Arthritis: Yes Asthma: No Autoimmune Disease: No Blood Disorders: No Anxiety: Yes Depression: No Heart Rhythm Problems: No Cancer: No Cardiac Catheterization: Yes (2012) Cardiovascular Problems: Yes (HYPOTENSION, stent) High Cholesterol: Yes Chemotherapy: No Chest Pain: Yes Congestive Heart Failure: Yes COPD: No Cerebrovascular Accident: No Coronary Artery Disease: Yes Diabetes: Yes Dialysis: Yes (M,W,F) Diminished Hearing: No Endocrine: Yes Gastrointestinal Disorders: Yes (LAP BAND stopped working few yrs ago) GERD: No Genitourinary: Yes (Dialysis M,W,) Hiatal Hernia: No Hypertension: Yes Immune Disorder: No Implanted Vascular Access Dvce: Yes (FISTULA, VASCATH) Kidney Stones: No Musculoskeletal: Yes (DB NEUROPATHY) Neurologic: No Psychiatric: Yes Reproductive: Yes Respiratory: Yes Immunizations Current: Yes Migraines: No Radiation Therapy: No Renal Failure: Yes Seizures: No Sickle Cell Disease: No Sleep Apnea: No Thyroid Disease: Yes Triglycerides - High: Yes Ulcer: No Menopausal: Yes : 1 Para: 1 Past Surgical History Narrative Surgical The patient's past surgical history is significant for an AV fistula placement, cardiac catheterization with stent placement, LAP-BAND procedure, , cholecystectomy, tonsil and adenoidectomy, portion of her tailbone was removed, history of diverting colostomy, bilateral trigger finger release. Abdominal Surgery: Yes (ABD WOUND for friction, COLOSTOMY, cholcystecomy, ) AICD: No Arteriovenous Shunt: Yes (AV FISTULA LEFT , VAS CATH RIGHT CHEST) Body Medical Devices: av fistula/ heart stents Cardiac Surgery: No Section: Yes (X 1) Cholecystectomy: Yes (1996) Coronary Artery Bypass Graft: Yes Coronary Stent: Yes (x1 June 2012) Ear Surgery: No Endocrine Surgery: No Eye Surgery: No Genitourinary Surgery: No Hysterectomy: Yes Insulin Pump: No Joint Replacement: No Neurologic Surgery: No Oral Surgery: Yes (T&A) Pacemaker: No Thoracic Surgery: No Tonsillectomy: Yes Other Surgery: Yes (LAP BAND, VAS CATH R CHEST , L ARM FISTULA ) Social History Alcohol Use: No Tobacco Use: No Substance Use: No Allergies-Medications (Allergen,Severity, Reaction): Coded Allergies: clarithromycin (Verified Allergy, Severe, swelling of face, 07/08/17) methadone (Verified Allergy, Unknown, HALLUCINATION , 07/08/17) ferrous fumarate (Verified Adverse Reaction, Severe, Constipation, 07/08/17) ferrous sulfate (Verified Adverse Reaction, Severe, Constipation, 07/08/17) ferumoxytol (Verified Adverse Reaction, Severe, Constipation, 07/08/17) iron (Verified Adverse Reaction, Severe, Constipation, 07/08/17) morphine (Verified Adverse Reaction, Severe, 07/08/17) renal insufficiency. multivitamin infusion, adult no.4 with vitamin K (Verified Adverse Reaction, Severe, Constipation, 07/08/17) multivitamin with iron,other minerals (Verified Adverse Reaction, Severe, Constipation, 07/08/17) *MDRO Multi-Drug Resistant Organism (Verified Adverse Reaction, Unknown, VRE, MRSA, MDR-Pseudomonas, 07/08/17) VRE (abdominal wound) - 07/09/16 MDR-Pseudomonas (abdominal wound) - 07/09/16 MRSA (abdomen wound) - 08/28/16 Reported Meds & Prescriptions Reported Meds & Active Scripts Active Nystatin Topical 100,000 unit/gm Oint 1 Applic TOPICAL Q12HR [Epoetin Porter Inj] 03153 UNITS/ML Inj 10,000 Units IV PUSH UNSCH PRN 30 Days Hydrocodone-Acetamin 10-325 mg (Hydrocodone/Acetaminophen) 10 Mg-325 Mg Tablet 1 Tab PO Q6H PRN Reported Cefuroxime (Cefuroxime Axetil) 500 Mg Tab 500 Mg PO BID Warfarin 1 Mg Tab 3 Mg PO DAILY Vancomycin Inj (Vancomycin HCl) 1 Gram Inj 1 Gm IV DURING DIALYSIS Voltaren (Diclofenac Sodium) 1 % Gel..gram. 1 Applic TOPICAL DAILY PRN Lidocaine Topical (Lidocaine HCl) 2 % Jel 1 Applic TOPICAL DAILY PRN Novolog Inj (Insulin Aspart) 1,000 Unit/10 Ml Vial 0 SQ DIRECTED Sliding Scale as directed. Tums (Calcium Carbonate (Antacid)) 500 Mg Chew 500 Mg PO DAILY Ativan (Lorazepam) 0.5 Mg Tab 0.5 Mg PO BID Quetiapine (Quetiapine Fumarate) 25 Mg Tab 25 Mg PO BID Ditropan (Oxybutynin Chloride) 5 Mg Tab 5 Mg PO Q12HR Tizanidine (Tizanidine HCl) 4 Mg Cap 4 Mg PO TID PRN Levothyroxine (Levothyroxine Sodium) 150 Mcg Tab 150 Mcg PO DAILY Atorvastatin (Atorvastatin Calcium) 40 Mg Tab 40 Mg PO HS Gabapentin 100 Mg Cap 100 Mg PO BID Review of Systems Except as stated in HPI: all other systems reviewed are Neg General / Constitutional: No: Fever Eyes: No: Visual changes HENT: No: Headaches, Congestion Cardiovascular: No: Chest Pain or Discomfort Respiratory: No: Cough, Shortness of Breath Gastrointestinal: No: Nausea, Vomiting, Diarrhea, Abdominal Pain Genitourinary: No: Dysuria Musculoskeletal: Positive: Myalgias, Arthralgias, Pain Skin: No Rash Neurologic: No: Weakness, Focal Abnormalities, Change in Mentation, Slurred Speech, Sensory Disturbance Psychiatric: No: Depression Endocrine: No: Polydipsia Hematologic/Lymphatic: No: Easy Bruising Physical Exam Narrative General: The patient is a well-developed well-nourished female in no acute distress. Head and Neck exam: Head is normocephalic atraumatic. Eyes: EOMI, pupils are equal round and reactive to light. Nose: Midline septum with pink mucous membranes Mouth: Dentition unremarkable. Moist mucus membranes. Posterior oropharynx is not erythematous. No tonsillar hypertrophy. Uvula midline. Airway patent. Neck: No palpable lymphadenopathy. No nuchal rigidity. No thyromegaly. Cardiovascular: Regular rate and rhythm with a 2/6 systolic murmur, no gallops or rubs. No pulse deficit to the extremities on simultaneous auscultation and palpation of her radial artery. Lungs: Clear to auscultation bilaterally. No wheezes, rhonchi, or rales. Abdomen: Soft, without tenderness to palpation in all 4 quadrants of the abdomen. No guarding, rebound, or rigidity. Normal bowel sounds are audible. No tenderness on palpation of McBurney's point. The patient has a colostomy bag in place that appears to be in good repair without any surrounding erythema, edema, or signs of infection. Brown stool is present in the colostomy bag. Extremities: No clubbing, cyanosis, or edema. 2+ pulses in all 4 extremities. Back: No costovertebral angle tenderness to palpation. Neurologic Exam: The patient is alert and oriented 4. The patient is awake and alert. On physical examination, no new neurologic symptoms compared to the patient's prior baseline. Skin Exam: No rash noted. Intact skin that is warm and dry. Data Data Last Documented VS Vital Signs Date Time Temp Pulse Resp B/P (MAP) Pulse Ox O2 Delivery O2 Flow Rate FiO2 08/05/17 19:24 100 Room Air 08/05/17 18:51 98.3 100 20 147/78 (101) Orders Orders Electrocardiogram (08/05/17 19:14) Complete Blood Count With Diff (08/05/17 19:14) Basic Metabolic Panel (Bmp) (08/05/17 19:14) Chest, Single Ap (08/05/17 19:14) Iv Access Insert/Monitor (08/05/17 19:14) Ecg Monitoring (08/05/17 19:14) Oximetry (08/05/17 19:14) Wound Care (08/05/17 19:14) Prothrombin Time / Inr (Pt) (08/05/17 19:17) Act Partial Throm Time (Ptt) (08/05/17 19:17) Abdomen, Flat & Upright (08/05/17 19:27) Acetamin-Hydrocod 325-10 Mg ([place] 10-32 (08/05/17 20:00) Ct Abd/Pel W/O Iv Contrast (08/05/17 20:39) Alprazolam (Xanax) (08/05/17 21:45) Labs Laboratory Tests Test 08/05/17 19:39 08/05/17 20:50 White Blood Count 13.2 TH/MM3 Red Blood Count 3.76 MIL/MM3 Hemoglobin 9.5 GM/DL Hematocrit 30.4 % Mean Corpuscular Volume 80.7 FL Mean Corpuscular Hemoglobin 25.3 PG Mean Corpuscular Hemoglobin Concent 31.4 % Red Cell Distribution Width 19.4 % Platelet Count 499 TH/MM3 Mean Platelet Volume 7.9 FL Neutrophils (%) (Auto) 89.3 % Lymphocytes (%) (Auto) 6.2 % Monocytes (%) (Auto) 3.1 % Eosinophils (%) (Auto) 1.1 % Basophils (%) (Auto) 0.3 % Neutrophils # (Auto) 11.8 TH/MM3 Lymphocytes # (Auto) 0.8 TH/MM3 Monocytes # (Auto) 0.4 TH/MM3 Eosinophils # (Auto) 0.1 TH/MM3 Basophils # (Auto) 0.0 TH/MM3 CBC Comment DIFF FINAL Differential Comment Blood Urea Nitrogen 57 MG/DL Creatinine 5.12 MG/DL Random Glucose 145 MG/DL Calcium Level 8.6 MG/DL Sodium Level 135 MEQ/L Potassium Level 4.4 MEQ/L Chloride Level 98 MEQ/L Carbon Dioxide Level 24.4 MEQ/L Anion Gap 13 MEQ/L Estimat Glomerular Filtration Rate 9 ML/MIN Prothrombin Time 33.6 SEC Prothromb Time International Ratio 3.3 RATIO Activated Partial Thromboplast Time 70.0 SEC MDM Medical Decision Making Medical Screen Exam Complete: Yes Emergency Medical Condition: Yes Medical Record Reviewed: Yes Differential Diagnosis Retained stool partially evacuating from the patient's rectum, versus bowel obstruction Narrative Course During the course of the patient's emergency department visit, the patient's history, examination, and differential diagnosis were reviewed with the patient. The patient was placed on a monitoring analyst with oximetry and frequent blood pressure monitoring. The patient had IV access obtained and blood work sent for analysis. The patient was initially provided her usual pain medication, hydrocodone 10 mg p.o. 1 on arrival. The patient's laboratory studies were reviewed and remarkable for a white count of 13.2, hemoglobin 9.5, platelets 499 with 89.3 neutrophils, basic metabolic profile reveals a sodium of 135, BUN 57, creatinine 5.17, glucose 145. PT 33.6 , INR 3.3, PTT 70. The patient is given a copy of her INR. She is instructed to hold her Coumadin for 2 days and have her INR rechecked at that time to restart her medicine. Radiology studies were reviewed and remarkable for Last Impressions Abdomen/Pelvis CT 08/05/172038 Signed Impressions: CONCLUSION: 1. There is a colostomy along the mid left abdomen with an associated hernia. There are several loops of bowel within the hernia without definite obstruction at this time. However, I would recommend correlation with patient's physical a nd clinical exam of this finding. 2. Status post cholecystectomy. 3. Small bilateral kidneys with prominent vascular calcification suggestive of chronic renal disease. 4. Lap band device in place. 5. Prominent atherosclerotic disease of the vascular structures in the abdomen and pelvis. Abdomen X-Ray 08/05/171926 Signed Impressions: CONCLUSION: Limited because of body habitus. Gaseous distention without obvious obstruction . No definite free air. CT scan may be of benefit if patient remains symptomati c. Chest X-Ray 08/05/171913 Signed Impressions: CONCLUSION: No new or acute pulmonary infiltrates. No significant changes. The patient on examination is noted to have stool output in her colostomy bag and reported by her normal stool output in her colostomy throughout the day today, therefore, I do not suspect that the patient has signs of obstruction at this time. The patient's stool output from her bottom is likely residual stool from the lower colon that is been in place since her diverting colostomy. Regarding the patient's elevated white blood cell count, I suspect that this is related to the patient missing a dose of her antibiotic. The patient reports that she is on antibiotic that she receives with her hemodialysis sessions. She reports that she is going to be having hemodialysis tomorrow. She is encouraged to follow-up with her senior electronics design engineer for hemodialysis tomorrow. She is also encouraged to follow-up with her primary care physician for reexamination for improvement in the next 2 days. The patient is resting comfortably and feels better, is alert and in no distress. The patient's results and examination findings were discussed with the patient. The repeat examination is unremarkable and benign. The history, exam, diagnostic testing, and current condition do not suggest any significant pathology to warrant further testing, continued ED treatment, admission, or surgical evaluation at this point. The vital signs have been stable. The patient does not have uncontrollable pain, intractable vomiting, or other significant symptoms. The patient's condition is stable and appropriate for discharge. The patient will pursue further outpatient evaluation with a primary care physician or other designated or consulting physician as indicated in the discharge instructions. The patient is instructed to report back to the emergency department immediately for reexamination in the mean time if she develops any new or worsening signs or symptoms. The patient expressed understanding and was agreeable with this plan. Diagnosis Primary Impression: Pressure ulcer of coccygeal region Qualified Codes: L89.159 - Pressure ulcer of sacral region, unspecified stage Additional Impressions: Wounds, multiple Elevated INR Referrals: Valentin Jimenez MD 1 day Primary Care Physician 2 days Patient Instructions: Chronic Wounds (ED), Elevated INR (ED), General Instructions Additional Instructions: The patient is instructed to hold her Coumadin for the next 2 days and have her INR rechecked to restart her Coumadin at an appropriate dose. She is given a copy of her INR to share with her primary care physician in the next 2 days. Med/Other Pt SpecificInfo: No Change to Meds Disposition: 01 DISCHARGE HOME Condition: Stable Dayanara Wright MD August 05, 2017 19:28
--- NOTE | 2017-08-05 19:33 | RADRPT ---
EXAM DATE: 08/05/2017 7:30 PM EDT AGE/SEX: 56 years / Female INDICATIONS: Congestion. Weakness. CLINICAL DATA: This is the patient's initial encounter. Patient reports that signs and symptoms have been present for 3 days and indicates a pain score of 5/10. MEDICAL/SURGICAL HISTORY: None. Umbilical hernia repair. [place] [facility] [place]. . FINDINGS: A single AP view of the chest demonstrates the lungs to be symmetrically aerated without evidence of mass, infiltrate or effusion. The heart size is prominent but stable.. Osseous structures are intac t. There is a right central line in place. No pneumothorax. No significant changes compared to the p rior study. CONCLUSION: No new or acute pulmonary infiltrates. No significant changes. Electronically signed by: Jose Adler MD 08/05/2017 7:32 PM EDT
[2017-08-05] MEDS ORDERED: ACETAMINOPHEN/HYDROcodone 325 MG/10 MG TAB PO ONE (20:00)
[2017-08-05 20:12] LABS: AUTOMATED NEUTROPHIL # 11.8 TH/MM3 (1.8-7.7); BASOPHIL % 0.3 % (0.0-2.0); EOSINOPHIL # 0.1 TH/MM3 (0-0.4); EOSINOPHIL % 1.1 % (0.0-4.0); HEMATOCRIT 30.4 % (35.0-46.0); HEMOGLOBIN 9.5 GM/DL (11.6-15.3); LYMPH % 6.2 % (9.0-44.0); LYMPHOCYTE # 0.8 TH/MM3 (1.0-4.8); MEAN CELL VOLUME 80.7 FL (80.0-100.0); MEAN CORPUSCULAR HEMOGLOBIN 25.3 PG (27.0-34.0); MEAN CORPUSCULAR HGB CONC 31.4 % (32.0-36.0); MEAN PLATELET VOLUME 7.9 FL (7.0-11.0); MONO % 3.1 % (0.0-8.0); MONOCYTE # 0.4 TH/MM3 (0-0.9); NEUT % 89.3 % (16.0-70.0); PLATELET COUNT 499 TH/MM3 (150-450); RED BLOOD COUNT 3.76 MIL/MM3 (4.00-5.30); RED CELL DISTRIBUTION WIDTH 19.4 % (11.6-17.2); WHITE BLOOD COUNT 13.2 TH/MM3 (4.0-11.0)
[2017-08-05 20:35] LABS: BICARBONATE 24.4 MEQ/L (21.0-32.0); CALCIUM 8.6 MG/DL (8.5-10.1); CREATININE 5.12 MG/DL (0.50-1.00)
--- NOTE | 2017-08-05 20:35 | RADRPT ---
EXAM DATE: 08/05/2017 8:24 PM EDT AGE/SEX: 56 years / Female INDICATIONS: Obstruction, patient had bowel movement passed the colostomy. CLINICAL DATA: This is the patient's initial encounter. Patient reports that signs and symptoms have been present for 1 day and indicates a pain score of 10/10. MEDICAL/SURGICAL HISTORY: . Congestive heart failure. Diabetic, dialysis. Cholecystectomy. Co ronary artery stent. Colostomy. COMPARISON: No prior [facility] exams available for comparison. FINDINGS: Extensive vascular calcifications with marked gastric distention. LAP-BAND noted. Moderate nondilated loops of large and small bowel. IUD in pelvis Changes lumbar spine. CONCLUSION: Limited because of body habitus. Gaseous distention without obvious obstruction. No definite free air . CT scan may be of benefit if patient remains symptomatic. Electronically signed by: Kerwin Hope MD 08/05/2017 8:34 PM EDT
[2017-08-05] MEDS ORDERED: ALPRAZolam 0.5 MG TAB PO ONE (21:45)
--- NOTE | 2017-08-05 21:59 | RADRPT ---
EXAM DATE: 08/05/2017 9:40 PM EDT AGE/SEX: 56 years / Female INDICATIONS: Patient had a bowel movement past her colostomy. Evaluate for obstruction. CLINICAL DATA: This is the patient's initial encounter. Patient reports that signs and symptoms have been present for 1 day and indicates a pain score of 6/10. MEDICAL/SURGICAL HISTORY: Renal failure, chronic. Congestive heart failure. Hypertension. CA D. Dialysis. Diabetes. Cholecystectomy. Hysterectomy. section. Lap band. AV Shunt. RADIATION DOSE: 16.60 CTDI (mGy) COMPARISON: No prior [place] exams available for comparison. TECHNIQUE: Multiple contiguous axial images were obtained through the abdomen. Images were obtained using multiple row detector helical technique. Using dose reduction techniques, radiation dose was ke pt as low as reasonably achievable to obtain optimal diagnostic quality images. Lack of IV contrast l imits the diagnosis for certain organ pathology. FINDINGS: Lower Lungs: The visualized lower lungs are clear. Liver: The liver has a homogeneous density without space-occupying lesion. There is no dilation of th e biliary tree. Gallbladder removed. Spleen: Homogeneous density without enlargement. Pancreas: Unremarkable without mass or calcification. Kidneys: The kidneys are small in size bilaterally. There are prominent vascular calcifications thro ughout both kidneys. No hydronephrosis is demonstrated. Adrenal Glands: Unremarkable. Aorta: Atherosclerotic changes. No aneurysmal dilatation. There are atherosclerotic changes through out multiple arterial blood vessels in the abdomen including the celiac artery, SMA, splenic artery a nd hepatic artery. Bowel/Mesentery: There is a lap band device by the stomach. The bowel gas pattern is nonspecific. No significant dilatation is seen. There appears to be a colostomy along the mid left abdomen. There is a hernia along with the colostomy with several loops of bowel in the hernia. No definite obstruction is seen. There is some stool in the colon which can be traced down to the rectum. No definite inflam matory changes are seen. Abdominal Wall: There is a colostomy in the mid left abdomen with a hernia. There are several loops of bowel in the hernia without definite obstruction. There is edema throughout the body wall characte ristic for anasarca. Retroperitoneum: No evidence of adenopathy in the retrocrural, para-aortic, or deep pelvic regions. Bladder: Ruiz catheter. Bladder decompressed. Reproductive Organs: No abnormal masses or calcifications seen. Inguinal: The inguinal region is unremarkable without evidence of adenopathy. Bony Structures: Primary bony degenerative changes. CONCLUSION: 1. There is a colostomy along the mid left abdomen with an associated hernia. There are several loop s of bowel within the hernia without definite obstruction at this time. However, I would recommend co rrelation with patient's physical and clinical exam of this finding. 2. Status post cholecystectomy. 3. Small bilateral kidneys with prominent vascular calcification suggestive of chronic renal disease . 4. Lap band device in place. 5. Prominent atherosclerotic disease of the vascular structures in the abdomen and pelvis. Electronically signed by: Jose Adler MD 08/05/2017 9:58 PM EDT
[2017-08-05 22:05] LABS: INTERNATIONAL NORMALIZED RATIO 3.3 RATIO; PROTHROMBIN TIME - PATIENT 33.6 SEC (9.8-11.6)
[2017-08-05] MEDS ORDERED: ACETAMINOPHEN/HYDROcodone 325 MG/5 MG TAB PO ONE (22:30)
--- NOTE | 2017-08-06 14:09 | EKG ---
Date Performed: 08/05/2017 Time Performed: 19:33:34 PTAGE: 56 years EKG: ATRIAL FLUTTER/TACHYCARDIA WITH RAPID VENTRICULAR RESPONSE MARKED RIGHT AXIS DEVIATION RIGH T BUNDLE BRANCH BLOCK ABNORMAL ECG INTERPRETATION BASED ON A DEFAULT AGE OF 40 YEARS PREVIOUS TRACING : 07/31/2017 11.48 DOCTOR: Keith George Interpretating Date/Time 08/06/2017 14:06:19
== END 2017-08-05 23:06 | disposition home or self-care (01) ==
LOC: NEPE 18:45
DX: L89.159 Pressure ulcer of sacral region, unspecified stage (principal); R79.1 Abnormal coagulation profile; I13.2 Hypertensive heart and chronic kidney disease with heart failure and with stage 5 chronic kidney disease, or end stage renal disease; I50.9 Heart failure, unspecified; E11.22 Type 2 diabetes mellitus with diabetic chronic kidney disease; N18.6 End stage renal disease; E78.00 Pure hypercholesterolemia, unspecified; Z79.01 Long term (current) use of anticoagulants; Z79.4 Long term (current) use of insulin; Z99.2 Dependence on renal dialysis; Z93.3 Colostomy status
CPT/HCPCS: 71045; 74019; 74176; 80048; 85025; 85610; 85730; 93005